=== PATIENT | female | born 1945 | race Caucasian/White ===

== ENCOUNTER 2017-12-03 17:22 | Observation (INO) | payer MEDICARE, SELFPAY ==
[2017-12-03] VITALS (9 sets, daily range): BP systolic 133–148; BP diastolic 78–84; PULSE 68–74; RESP 16–23; TEMP 37; O2SAT 92–98; BMI 34.6
--- NOTE | 2017-12-03 17:41 | ED.RN ---
ATTEMPTED TO CALL DAUGHTER DIANA--[phone]..LEFT MESSAGE AND DAUGHTER PAN---[id number]--TMLF MESSAGE
--- NOTE | 2017-12-03 17:45 | RAD_ITS ---
STUDY: X-RAY CHEST REASON FOR EXAM: Female, 71 years old. Dyspnea and shortness of breath TECHNIQUE: PA and lateral COMPARISON: November 14, 2016 FINDINGS: There is prominence of interstitial markings bilaterally more pronounced the mid and lower lung zones.. There is no demonstrated pleural abnormality. Normal size heart. Normal mediastinum and betty. Normal visualized pulmonary arteries. Mildly calcified aortic arch and descending thoracic aorta. Dorsal spine demonstrates scoliosis and degenerative change Normal visualized ribs, clavicles, and shoulders. There is no demonstrated abnormality of the visualized soft tissue structures of the upper abdomen. RAD/Chest PA and Lateral IMPRESSION: COPD. No acute disease Electronically Signed: Ken Weaver MD at 19:29 EDT , Service support ,
--- NOTE | 2017-12-03 17:45 | EKG12_ITS ---
Test Reason : DYSRHYTHMIA Blood Pressure : / mmHG Vent. Rate : 068 BPM Atrial Rate : 068 BPM P-R Int : 176 ms QRS Dur : 070 ms QT Int : 420 ms P-R-T Axes : 059 059 046 degrees QTc Int : 446 ms Normal sinus rhythm Low voltage QRS Borderline ECG Confirmed by CARLIE BHAT, KATELYN ([id number]), assignment desk editor BANG URBINA ([id number]) on 12/05/2017 3:01:45 PM Referred By: MAYLIN Confirmed By:KATELYN SXETON MD
[2017-12-03 18:04] LABS: Absolute Lymphocyte Count 1.88 X10^3/ul (0.83-4.51); Basophil# 0.02 X10^3/uL; Basophil% 0.3 % (0-1); Eosinophils% 2.6 % (0-5); Hematocrit 38.9 % (37-47); Hemoglobin 11.6 g/dl (12.0-15.0); Lymphocyte # 1.88 X10^3/ul (4.0); Lymphocyte % 24.5 % (19-41); Mean Corp Hgb Conc 29.8 g/gl (32-36); Mean Corpuscular Hgb 27.9 pg (27.0-32.0); Mean Corpuscular Volume 93.5 fL (81-99); Monocyte# 0.56 X10^3/uL; Monocyte% 7.3 % (0-10); Neutrophil # 5.01 X10^3/uL (2.7-7.7); Neutrophil % 65.2 % (47-70); Platelet Count 247 K/mm3 (150-450); RBC Distribution Width CV 13.8 % (11.6-14.6); RBC Distribution Width SD 46.8 fl (35.1-43.9); Red Blood Count 4.16 M/mm3 (4.2-5.4); White Blood Count 7.7 K/mm3 (4.4-11.0)
[2017-12-03 18:07] LABS: POSITIVE COUNT NO; POSITIVE DIFFERENTIAL NO; POSITIVE MORPHOLOGY NO
[2017-12-03 18:12] LABS: International Normalized Ratio 2.8; Prothrombin Time (Protime)PT. 29.3 SECONDS (11.7-14.9)
[2017-12-03] MEDS: Ipratropium/Albuterol Sulfate 3 ML AMPUL.NEB INHALATION ×2 (18:21→22:20)
[2017-12-03 18:24] LABS: Anion Gap 7 (5-15); BUN 12 mg/dL (7-18); BUN/Creat Ratio 16.6 RATIO (10-20); Calcium,Total 9.4 mg/dL (8.5-10.1); Chloride 95 mmol/L (98-107); Creatinine, Serum 0.72 mg/dL (0.55-1.02); EST Glomerular Filtration Rate 84 mL/min (>60); Est Glom Filt Rate - Afr Amer 101 mL/min (>60); Estimated Creatinine Clearance 48.72 ml/min; Glucose 86 mg/dL (74-106); Potassium 3.8 mmol/L (3.5-5.1); Sodium Level 142 mmol/L (136-145)
[2017-12-03 18:33] LABS: BNP,B-Type NATRIURETIC PEPTIDE 173.6 pg/mL (0-100)
[2017-12-03 19:54] LABS: Bacteria 0 SEEN /hpf (None Seen); Mucous, Urine 0 SEEN /hpf (<or=2+)
[2017-12-03 19:55] LABS: Color, Urine Yellow (Yellow); Glucose, Dipstick Normal (Normal); Ketone-Dipstick Negative (Negative); Leukocyte Esterase-Dipstick Negative /ul (Negative); Nitrite-Dipstick Negative (Negative); Occult Blood-Urine Negative /ul (Negative); Protein-Dipstick Negative (Negative); Specific Gravity, Urine 1.015 (1.002-1.030); Urine Bilirubin Dipstick Negative (Negative); Urine Clarity Clear (Clear); Urine Urobilinogen Normal (Normal)
[2017-12-03 20:06] LABS: Squamous Epithelial Cells - UA 0-5 SEEN /hpf (5-10)
[2017-12-03 20:07] LABS: Red Blood Cells-Urine 0-5 SEEN /hpf (0-5)
[2017-12-03 20:08] LABS: Transitional Epithelial - Ur 0-5 SEEN /hpf (0-5); White Blood Cells 0-5 SEEN /hpf (0-5)
--- NOTE | 2017-12-03 22:15 | ED.VISSUMM ---
- ER Visit Summary Date of Service: 12/03/17 Chief Complaint: [Dyspnea] History of Present Illness: The patient is a 71 F presents to the emergency department with shortness of breath it has been worse over last 2 days. Patient complains of exertional dyspnea. Patient's had a mild cough mostly at night. No sputum production. Patient complains of discomfort with deep breathing. Patient describes swollen legs and about an 8 pound weight gain the last week. Patient denies any fever however she has had some chills. Patient also describes some dysuria and urinary frequency. Patient currently on Coumadin and being treated for DVT and PE. Patient has history of hypertension, high cholesterol, COPD.] Physical Examination: [HEENT-PERRLA, EOMI. Cranial nerves II through XII grossly intact. TMs clear. Mucous membranes moist. No adenopathy. Cardiovascular-regular rate and rhythm without murmur or ectopy Lungs-diminished breath sounds bilaterally. Patient has expiratory wheezes bilaterally. Mild tachypnea. No accessory muscle use or retractions. Abdomen-normoactive bowel sounds, soft, nontender, no rebound or rigidity, no peritoneal signs. Extremities-intact ?4, normal range of motion, normal pulses, atraumatic]. Patient has +2 edema both lower extremities. Test Results: [EKG obtained on arrival showed a sinus rhythm with sinus arrhythmia. Ventricular rate was 85 bpm. CBC with differential showed a white count 7.7, hemoglobin 11.6, hematocrit 39, platelets 247. Chemistries unremarkable. INR was 2.8. Urinalysis was normal. Troponin was less than 0.015. BNP was slightly elevated 173. Chest x-ray showed COPD.] Emergency Department Course and Treatment: [Patient received DuoNeb aerosol and was started on Solu-Medrol.] Patient was given Lasix 40 mg IV for the leg edema. Treatment Plan: [Admit] Disposition: [Admit] Impression: [COPD exacerbation Lower extremity edema] This note was generated with QBE dictation software. It may contain incorrect words, spelling, and punctuation that were not noted in review of the chart prior to signing ED Disposition - Plan for ED Patient: Chief Complaint: Asthma Referrals: José Perez MD [Primary Care Provider] -
--- NOTE | 2017-12-03 22:18 | ED.DCSUM_ITS ---
- ER Visit Summary Date of Service: 12/03/17 Chief Complaint: [Dyspnea] History of Present Illness: The patient is a 71 F presents to the emergency department with shortness of breath it has been worse over last 2 days. Patient complains of exertional dyspnea. Patient's had a mild cough mostly at night. No sputum production. Patient complains of discomfort with deep breathing. Patient describes swollen legs and about an 8 pound weight gain the last week. Patient denies any fever however she has had some chills. Patient also describes some dysuria and urinary frequency. Patient currently on Coumadin and being treated for DVT and PE. Patient has history of hypertension , high cholesterol, COPD.] Physical Examination: [HEENT-PERRLA, EOMI. Cranial nerves II through XII grossly intact. TMs clear. Mucous membranes moist. No adenopathy. Cardiovascular-regular rate and rhythm without murmur or ectopy Lungs-diminished breath sounds bilaterally. Patient has expiratory wheezes bilaterally. Mild tachypnea. No accessory muscle use or retractions. Abdomen-normoactive bowel sounds, soft, nontender, no rebound or rigidity, no peritoneal signs. Extremities-intact ?4, normal range of motion, normal pulses, atraumatic]. Patient has +2 edema both lower extremities. Test Results: [EKG obtained on arrival showed a sinus rhythm with sinus arrhythmia. Ventricular rate was 85 bpm. CBC with differential showed a white count 7.7, hemoglobin 11.6, hematocrit 39, platelets 247. Chemistries unremarkable. INR was 2.8. Urinalysis was normal. Troponin was less than 0.015. BNP was slightly elevated 173. Chest x-ray showed COPD.] Emergency Department Course and Treatment: [Patient received DuoNeb aerosol and was started on Solu-Medrol.] Patient was given Lasix 40 mg IV for the leg edema. Treatment Plan: [Admit] Disposition: [Admit] Impression: [COPD exacerbation Lower extremity edema] This note was generated with LemonStand. dictation software. It may contain incorrect words, spelling, and punctuation that were not noted in review of the chart prior to signing ED Disposition - Plan for ED Patient: Chief Complaint: Asthma Referrals: José Perez MD [Primary Care Provider] -
[2017-12-03] MEDS: Furosemide 40 MG/4 ML Vial IV (22:40)
[2017-12-03] MEDS: MethylPREDNISolone 125 MG/2 ML Vial IV (22:40)
--- NOTE | 2017-12-03 23:01 | HP.PCM_ITS ---
Problem List (1) COPD exacerbation Status: Acute (2) COPD (chronic obstructive pulmonary disease) Status: Chronic (3) Dyslipidemia Status: Chronic (4) Essential hypertension Status: Chronic (5) History of DVT (deep vein thrombosis) Status: Chronic (6) History of pulmonary embolus (PE) Status: Chronic History of Present Illness Date of Admission: 12/03/17 Chief Complaint: COPD exacerbation The patient is a 71 year old female w/ h/o lipidemia, PE/DVT and COPD admitted for COPD exacerbation. She has progressive worsening SOB for the past 2 weeks. No increase in cough. She coughs mostly at night. Her cough is nonproductive. No sick contact. Nothing made her SOB better or worse. Her SOB has been persistent and severe, affecting her all the time. She also has increase swelling in the lower extremity. She has not been compliant with her diet. She eats whatever she wants and she lives alone. Past Medical History Past Medical History (Chronic Problems): Chronic Problems History of pulmonary embolus (PE) (Chronic) History of DVT (deep vein thrombosis) (Chronic) Essential hypertension (Chronic) Dyslipidemia (Chronic) COPD (chronic obstructive pulmonary disease) (Chronic) Allergies amlodipine besylate [From Norvas] Allergy (Verified 12/03/17 17:23) Hives codeine Adverse Reaction (Verified 12/03/17 17:23) Other ONE MORE, I CAN'T REMEMBER Allergy (Uncoded 07/19/15 13:37) Other Home Medications: Ambulatory Orders Medication Instructions Recorded Albuterol Sulfate [Proair Hfa] 2 puff IH Q4H PRN PRN 07/19/15 Atenolol [Tenormin (beta donna)] 50 mg PO DAILY 07/19/15 Citalopram [Celexa] 20 mg PO BID 07/19/15 Ergocalciferol [Vitamin D] 50,000 unit PO Q7D 07/19/15 Gabapentin [Neurontin] 300 mg PO BID 07/19/15 Warfarin [Coumadin] 2.5 mg PO TH 07/19/15 Warfarin [Coumadin] 5 mg PO [id number] 07/19/15 Zolpidem Tartrate [Ambien] 10 mg PO QHS PRN 07/19/15 Hydrochlorothiazide [Hctz] 25 mg PO DAILY 12/16/15 Ipratropium/Albuterol Sulfate 3 ml INHALATION 4X/DAY 12/16/15 [Duoneb] Surgical History: noncontributory Psychiatric History: Depression DIABETES SPECIALIST History: No pertinent DIABETES SPECIALIST history Smoking Status: Former smoker - *Family History Maternal History Items: No pertinent history Paternal History Items: No pertinent history Review of Systems Constitutional: Denies: Chills, Fever, Weight Change HEENT: Denies: Head Aches, Sinus Congestion, Sinus Drainage Cardiovascular: Denies: Chest Pain, Palpitations Respiratory: Denies: Cough, Shortness of breath at rest, Sputum production Gastrointestinal: Denies: Abdominal Pain, Nausea, Vomiting Genitourinary: Denies: Dysuria Musculoskeletal: Denies: Joint Pain, Joint Tenderness Skin: Denies: Rash, Wounds Neurological: Denies: Numbness, Tingling, Focal weakness Psychiatric: Denies: Anxiety, Depression, Homicidal Ideations, Suicidal Ideations Hematologic/ Lymphatic: Denies: Easy Bruising, Easy Bleeding VTE Information - Inpt Only VTE Present on Admission: Yes VTE Mechan Device Prophylaxis: SCD's VTE Pharm Prophylaxis ordered?: Yes Patient Problems: Active and Suspected Problems COPD exacerbation (Acute) - Physical Exam General: Alert, Oriented x3, Cooperative HEENT: Atraumatic, PERRLA, EOMI, Normocephalic Neck: Supple, No JVD, Negative Carotid Bruits Lungs: Diminished, Rales, Wheezes Cardiovascular: Regular rate, No murmurs Abdomen: Bowel Sounds Present, Soft, Non Tender Extremities: Capillary Refill Less than 3 Seconds, Edema Skin: No rashes, No breakdown Musculoskeletal: No Tenderness to Palpation of Joints or Extremities Neurological: Cranial nerves II-XII grossly intact Psych/Mental Status: Normal Affect, Appropriate Vital Signs Temp Pulse Resp BP Pulse Ox 98.6 F 74 23 H 145/81 H 96 12/03/17 17:28 12/03/17 22:24 12/03/17 22:24 12/03/17 22:24 12/03/17 22:24 Oxygen Flow Rate (L/min) 3 Oxygen Delivery Method Nasal Cannula Weight: 100.244 kg Body Mass Index (BMI) 34.6 Laboratory Tests Past 24 Hrs 12/03/17 12/03/17 12/03/17 17:55 17:55 17:55 WBC 7.7 RBC 4.16 L Hgb 11.6 L Hct 38.9 MCV 93.5 MCH 27.9 MCHC 29.8 L RDW 13.8 RDW Differential 46.8 H Plt Count 247 MPV 11.0 Immature Gran % (Auto) 0.100 Neut % (Auto) 65.2 Lymph % (Auto) 24.5 [place] % (Auto) 7.3 Eos % (Auto) 2.6 Baso % (Auto) 0.3 Absolute Neuts (auto) 5.0 Absolute Lymphs (auto) 1.88 Total Counted Not Reportable PT INR Sodium 142 Potassium 3.8 Chloride 95 L Carbon Dioxide 40.0 H Anion Gap 7 BUN 12 Creatinine 0.72 Estim Creat Clear Calc 48.72 Est GFR (MDRD) Af Amer 101 Est GFR (MDRD) Non-Af 84 BUN/Creatinine Ratio 16.6 Glucose 86 Calcium 9.4 Troponin I < 0.015 B-Natriuretic Peptide 173.6 H Urine Color Urine Clarity Urine pH Ur Specific [place] Urine Protein Urine Glucose (UA) Urine Ketones Urine Occult Blood Urine Nitrite Urine Bilirubin Urine Urobilinogen Ur Leukocyte Esterase Urine RBC Urine WBC Ur Squamous Epith Cells Ur Transition Epith Cell Urine Bacteria Urine Mucus 12/03/17 12/03/17 17:55 19:50 WBC RBC Hgb Hct MCV MCH MCHC RDW RDW Differential Plt Count MPV Immature Gran % (Auto) Neut % (Auto) Lymph % (Auto) [place] % (Auto) Eos % (Auto) Baso % (Auto) Absolute Neuts (auto) Absolute Lymphs (auto) Total Counted PT 29.3 H INR 2.8 Sodium Potassium Chloride Carbon Dioxide Anion Gap BUN Creatinine Estim Creat Clear Calc Est GFR (MDRD) Af Amer Est GFR (MDRD) Non-Af BUN/Creatinine Ratio Glucose Calcium Troponin I B-Natriuretic Peptide Urine Color Yellow Urine Clarity Clear Urine pH 8.0 Ur Specific [place] 1.015 Urine Protein Negative Urine Glucose (UA) Normal Urine Ketones Negative Urine Occult Blood Negative Urine Nitrite Negative Urine Bilirubin Negative Urine Urobilinogen Normal Ur Leukocyte Esterase Negative Urine RBC 0-5 SEEN Urine WBC 0-5 SEEN Ur Squamous Epith Cells 0-5 SEEN Ur Transition Epith Cell 0-5 SEEN Urine Bacteria 0 SEEN Urine Mucus 0 SEEN Assessment/Plan Active and Suspected Problems COPD exacerbation (Acute) 71 year old female w/ h/o lipidemia, PE/DVT and COPD admitted for COPD exacerbation. 1) COPD exacerbation: Probably secondary to viral / noncompliant. Will get cultures. Will start steroid, bronchodilators, and azithromycin. Supportive care. 2) Bilateral lower extremity swelling: Will start lasix. Supportive care. 3) H/o PE/DVT: Will restart coumadin. Daily INR. 4) Chronic issues: Lipidemia / HTN: Resume home meds.
[2017-12-04] VITALS (14 sets, daily range): BP systolic 110–156; BP diastolic 53–84; PULSE 70–80; RESP 16–24; TEMP 36.7–36.8; O2SAT 88–97; BMI 33.3
[2017-12-04] MEDS: Albuterol 2.5 MG/3 ML VIAL.NEB. INHALATION (01:45)
[2017-12-04] MEDS: Zolpidem Tartrate 5 MG Tablet PO ×2 (01:51→22:31)
[2017-12-04] MEDS: Citalopram 40 MG TABLET PO (01:52)
--- NOTE | 2017-12-04 01:52 | CPS ---
pt stated she is too wheezy and didn't want to start pep. She stated she understands how to do it.
[2017-12-04] MEDS: 0.9% NaCl Peripheral Flush Adult/Peds IV ×4 (03:18→14:36)
[2017-12-04 06:13] LABS: International Normalized Ratio 2.6; Prothrombin Time (Protime)PT. 28.2 SECONDS (11.7-14.9)
[2017-12-04 06:17] LABS: Absolute Lymphocyte Count 0.67 X10^3/ul (0.83-4.51); Absolute Neutrophil Count 6.7 X10^3/uL (2.0-7.7); Basophil# 0.01 X10^3/uL; Basophil% 0.1 % (0-1); Eosinophil# 0.01 X10^3/uL; Eosinophils% 0.1 % (0-5); Hematocrit 37.9 % (37-47); Hemoglobin 11.8 g/dl (12.0-15.0); Lymphocyte # 0.67 X10^3/ul (4.0); Mean Corp Hgb Conc 31.1 g/gl (32-36); Mean Corpuscular Hgb 28.9 pg (27.0-32.0); Mean Corpuscular Volume 92.9 fL (81-99); Mean Platelet Vol. 12.2 fl (6.2-12.0); Monocyte# 0.03 X10^3/uL; Monocyte% 0.4 % (0-10); Neutrophil # 6.68 X10^3/uL (2.7-7.7); Neutrophil % 90.3 % (47-70); Platelet Count 240 K/mm3 (150-450); RBC Distribution Width CV 13.4 % (11.6-14.6); RBC Distribution Width SD 44.6 fl (35.1-43.9); Red Blood Count 4.08 M/mm3 (4.2-5.4); White Blood Count 7.4 K/mm3 (4.4-11.0)
[2017-12-04 06:23] LABS: ALB/GLOB Ratio 0.7 RATIO (0.9-2.4); AST(SGOT) 17 U/L (15-37); Alanine Aminotransfer ALT/SGPT 19 U/L (13-56); Albumin, Serum 3.2 g/dL (3.2-5.0); Alkaline Phosphatase 100 U/L (45-117); Anion Gap 8 (5-15); BUN 12 mg/dL (7-18); BUN/Creat Ratio 14.4 RATIO (10-20); Chloride 93 mmol/L (98-107); Creatinine, Serum 0.83 mg/dL (0.55-1.02); EST Glomerular Filtration Rate 71 mL/min (>60); Est Glom Filt Rate - Afr Amer 86 mL/min (>60); Globulin 4.3 g/dL (2.2-4.2); Glucose 187 mg/dL (74-106); Potassium 3.1 mmol/L (3.5-5.1); Protein, Total 7.5 g/dL (6.4-8.2); Sodium Level 139 mmol/L (136-145)
[2017-12-04 06:57] LABS: POSITIVE COUNT NO; POSITIVE DIFFERENTIAL NO; POSITIVE MORPHOLOGY NO
--- NOTE | 2017-12-04 07:00 | PCM.PROGNOTE ---
Patient Problems: Active and Suspected Problems COPD exacerbation (Acute) Subjective: The patient is a 71-year-old female with a past medical history of COPD, hyperlipidemia, hypertension, VTE with DVT and PE on chronic anticoagulation and obesity who presented to the emergency department at [facility] on 12/03/2017 complaining of worsening shortness of breath over the preceding 2 weeks and swelling in the legs. She was afebrile at presentation to the hospital. Pulse ox was 92-98% on room air. White blood cell count was normal at 7.7 with an unremarkable differential. Hemoglobin is mildly decreased at 11.6 with normal platelets. INR was therapeutic at 2.8. Electrolytes were remarkable for an elevated serum bicarb of 40. Troponin was less than 0.015. Radiologist reported the chest x-ray as no acute processes however per my review there is suspicion for a right lower lobe infiltrate. Influenza swab was negative. She was admitted to the hospital with a diagnosis of acute COPD exacerbation and started on intravenous steroids, aerosolized bronchodilators and azithromycin. She was given Lasix for bilateral lower extremity edema. Afebrile since admission. Vital signs stable. She is 88% ambulating on a 2 L nasal cannula and 94% on a 2 L nasal cannula at rest. She tells me she wears oxygen at home 06/02 at 2 L/min. White blood cell count is once again normal at 7.4 but there is a left shift secondary to steroids. Hemoglobin is stable and platelets are within normal limits. An ABG done on a liter nasal cannula showed a pH of 7.52, PCO2 of 48 and a PO2 of 65. Serum bicarb today is 38 and the potassium is low at 3.1. BNP was only 173.6 at admission. She and her son seem very concerned about the LE edema. She has been taking HCTZ at home. she denies CP. No fevers or shaking chills. Objective: General: Alert, oriented ?3, cooperative, pleasant and appropriate, NAD, sitting at the EOB with her legs dependent and talking with her son. No compression stockings Neck: Supple, trachea midline, no enlarged cervical nodes, no enlarged supraclavicular nodes Lungs: Clear to auscultation, markedly diminished, symmetric chest expansion, not tachypneic, no conversational dyspnea, no accessory muscle use, no wheezing Heart: Regular rate and rhythm, normal S1, normal S2, no murmur, no gallop, no rub Abdomen: Soft, NT, ND, bowel sounds present Extremities: No clubbing, edema of the ankles and the distal LE to just above the ankle, no cyanosis She does not appear to be having a acute exacerbation to me. I think that her main concern is the swelling in the legs. - Physical Exam General: - Vital Signs Temp Pulse Resp BP Pulse Ox 98.2 F 75 18 156/84 H 97 12/04/17 01:02 12/04/17 01:45 12/04/17 01:45 12/04/17 01:02 12/04/17 01:53 Oxygen Flow Rate (L/min) 2 Oxygen Delivery Method Nasal Cannula Weight: 212 lb 8 oz Body Mass Index (BMI) 33.3 Intake and Output for Last 24 Hours 12/02/17 12/03/17 12/04/17 23:59 23:59 23:59 Intake Total 595 / 595 Balance 595 / 595 Microbiology Past 72 Hours 12/04/17 02:45 Influenza Types A,B Direct FA (ROMI) - Final Mucosa - Nose Laboratory Tests Past 24 Hrs 12/04/17 12/04/17 12/04/17 05:20 05:20 05:20 WBC 7.4 RBC 4.08 L Hgb 11.8 L Hct 37.9 MCV 92.9 MCH 28.9 MCHC 31.1 L RDW 13.4 RDW Differential 44.6 H Plt Count 240 MPV 12.2 H Immature Gran % (Auto) 0.100 Neut % (Auto) 90.3 H Lymph % (Auto) 9.0 L Jay % (Auto) 0.4 Eos % (Auto) 0.1 Baso % (Auto) 0.1 Absolute Neuts (auto) 6.7 Absolute Lymphs (auto) 0.67 L Total Counted Not Reportable PT 28.2 H INR 2.6 Sodium 139 Potassium 3.1 L Chloride 93 L Carbon Dioxide 38.0 H Anion Gap 8 BUN 12 Creatinine 0.83 Estim Creat Clear Calc 58.70 Est GFR (MDRD) Af Amer 86 Est GFR (MDRD) Non-Af 71 BUN/Creatinine Ratio 14.4 Glucose 187 H Calcium 9.0 Total Bilirubin 0.80 AST 17 ALT 19 Alkaline Phosphatase 100 Total Protein 7.5 Albumin 3.2 Globulin 4.3 H Albumin/Globulin Ratio 0.7 L Medical Necessity - Tobacco Use Smoking Status: Former smoker Assessment/Plan Active and Suspected Problems COPD exacerbation (Acute) Impressions 1. acute exacerbation COPD - I do not agree with this. She appear in no distress, is not tachypneic, has a good saturation on her baseline home o2. She seems to be most concerned about the edema in the legs. I explained she most likely has pulmonary HTN due to hx of PE's and also she likely has significant venous insufficiency of the LE's due to prior DVT's and to vein stripping in the past. I explained that generally diuretics do not control this type of edema and the main method of control is compression stockings and elevation. 2. COPD 3. 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 chronic respiratory failure with hypoxemia and suspected hypercarbia.......vs metabolic alkalosis due to IV volume depletion from HCTZ. 5. Hyperlipidemia 6. Hypertension 7. Hypokalemia will get a total of 3 doses of Lasix. Recheck the lab in the AM Obtain office records from Dr. Perez and Dr. Chavarria Echocardiogram to evaluate systolic function and also pulmonary artery pressures. Ambulatory pulse ox prior to discharge to determine oxygen requirement DC IV steroids as they will only contribute to the swelling due to slat and water retention...start Prednisone short course in the AM Knee high TEDS Code Visit OBSV E&M: 36877 Subsequent observation care L2
[2017-12-04] MEDS: Gabapentin 300 MG Capsule PO ×2 (09:44→17:28)
[2017-12-04] MEDS: Furosemide 20 MG/2 ML VIAL IV (09:44)
[2017-12-04] MEDS: hydroCHLOROthiazide 25 MG Tablet PO (09:44)
[2017-12-04] MEDS: Atenolol 50 MG Tablet PO (09:44)
[2017-12-04] MEDS: Ipratropium/Albuterol Sulfate 3 ML AMPUL.NEB INHALATION ×3 (11:17→20:50)
[2017-12-04] MEDS: Citalopram 20 MG Tablet PO ×2 (11:29→20:58)
--- NOTE | 2017-12-04 11:40 | CASEMGMT ---
See MAGO DANIEL Assessment Link. DC PLAN: home on discharge. -pt plans to return home. MAGO DANIEL offered to have HHS on dc. Pt was noncomittal. Pt wished to discuss possible need for Assisted Living vs services through [facility]. MAGO DANIEL offered to have SW speak with pt. Elizabeth SAMAYOA will speak with pt. Yessica STOUT RN ACM
--- NOTE | 2017-12-04 11:55 | CASEMGMT ---
SW received referral for pt as pt seems to want more care at home, contemplating assisted living. SW spoke w/pt in room, she is thinking about AL. She states she spoke w/her daughters about it and they did not give her the answer she wanted. SW inquired what the answer was she was looking for. She states she wanted one of her two daughters to tell her that pt could move in w/them, but this did not happen. She states her one daughter's comes before everyone else. SW offered support. SW asked pt about hiring extra help, and about Passport. Pt does not think she will qualify for Passport, her income is too high. Pt is not interested in a private hire list for extra help at home at this time. Pt states does have a cleaning lady. SW gave pt a list of AL's in the area, encouraged her to call and go see places, to see what she might like. Pt does have some savings in the bank and seems to think that she will be able to cover the cost. Pt's son then came in, just as SW was asking pt about POA. Pt states she does have a POA, has filled out the forms. No further social service needs, pt will go home at discharge, possibly w/home health, and pt to follow up w/assisted living facilities once home. TRINI Gomez, SHEAR SCRAPMAN
[2017-12-04 13:26] LABS: Allen Test POS; Base Excess 16 mmol/L (-2 to +2); Bicarbonate 38.9 mmol/L (22-26); Blood Gas Specimen Type ART; O2 Delivery Device Nasal Can; PO2 65 mmHG (75-100); SITE R Radial; SO2 94 % (95-99); Time Given 1320; Total Carbon Dioxide 40 mmol/L; pCO2 48.1 mmHg (35-45); pH 7.52 (7.35-7.45)
--- NOTE | 2017-12-04 14:44 | CHAPLAIN ---
Type of Pastoral Visit _x__ Initial Visit ___ Follow-up Visit ___ On-call Visit ___ General Patient Visit ___ Spiritual Assessment ___ Family Conference ___ Bereavement ___ Rapid Response ___ Code Blue ___ Other (describe below) Pastoral Care Referral From _x__ Patient ___ Family ___ Nurse ___ Physician ___ Postal Supervisor ___ Slasher Operator ___ Other (describe below) Sacrament/Intervention _x__ Active listening ___ Anointing ___ Evangelical ___ Bereavement ___ Communion ___ Teresa exploration ___ _x__ Life review _x__ Prayer ___ Reconciliation ___ Sacrament of Sick _x__ Supportive presence ___ Wedding ___ Other (describe below) Pastoral Comments patient has concerns about her future care; pt speaks of having little hope that her daughters will take care of her since they are not showing involvement and much interest in her now
--- NOTE | 2017-12-04 15:09 | NURSING ---
pt requesting to ambulate with O2 to see what her spo2 is. While ambulating spo2 at lowest point was 88% with 2L oxgyen.
[2017-12-04] MEDS: Acetaminophen 325 MG Tablet 650 MG PO (17:28)
[2017-12-04] MEDS: Furosemide 40 MG/4 ML Vial IV (18:43)
--- NOTE | 2017-12-04 19:36 | ECHOD_ITS ---
Reason For Study: PHTN Procedure This was a 2D Doppler, Color Flow transthoracic echocardiogram. The exam was of poor technical quality due to underlying pulmonary disease process & body habitus. The study was technically difficult. Exam performed portable in patient room. Left Ventricle Normal LV size. Left ventricular systolic function is normal. The estimated ejection fraction is 65 %. No regional wall motion abnormalities noted. Right Ventricle Normal RV size. Normal systolic function. Atria Normal left atrium. Normal right atrium. No doppler evidence for ASD. Mitral Valve There is moderate mitral annular calcification. Extension of the mitral annular calcification onto the posterior mitral valve leaflet. Trivial mitral valve insufficiency. Tricuspid Valve Normal tricuspid valve. Trivial tricuspid valve insufficiency. Right ventricular systolic pressure estimated to be 51 mmHg. Aortic Valve Trisinus/trileaflet aortic valve. Mild focal aortic valve thickening. Pulmonic Valve The pulmonic valve is not well visualized. Great Vessels The aortic root is not well visualized. Pericardium/Pleural No pericardial effusion. MMode/2D Measurements & Calculations LVIDd: 4.1 cm IVSd: 1.2 cm LAV(MOD-bp): 55.5 ml LVIDs: 2.2 cm LVPWd: 1.1 cm LAV(MOD-bp) Indexed: 26.8 ml/m2 RVDd: 3.9 cm FS: 47.3 % LAV(MOD-sp2): 59.9 ml LAV(MOD-sp4): 45.0 ml LVAd ap4: 25.8 cm2 SV(MOD-sp4): 44.7 ml SV(sp4-el): 44.9 ml EDV(MOD-sp4): 74.9 ml EDV(sp4-el): 74.2 ml LVAs ap4: 15.0 cm2 ESV(MOD-sp4): 30.1 ml ESV(sp4-el): 29.3 ml EF(MOD-sp4): 59.8 % EF(sp4-el): 60.5 % LA A4 area: 17.1 cm2 Time Measurements MV dec time: 0.24 sec Doppler Measurements & Calculations MV E max nik: 111.1 cm/sec Lat Peak E' Nik: 10.1 cm/sec Med Peak E' Nik: 14.5 cm/sec MV A max nik: 76.5 cm/sec E/E' lat: 11.0 E/E' med: 7.7 MV E/A: 1.5 MV V2 max: 157.9 cm/sec MV P1/2t max nik: 157.0 cm/sec Ao V2 max: 143.0 cm/sec MV max P.0 mmHg MV P1/2t: 59.3 msec Ao max P.2 mmHg MV V2 mean: 71.0 cm/sec MV dec slope: 774.7 cm/sec2 Ao V2 mean: 88.3 cm/sec MV mean P.6 mmHg MVA(P1/2t): 3.7 cm2 Ao mean P.6 mmHg MV V2 VTI: 34.3 cm Ao V2 VTI: 26.4 cm LV V1 max: 123.9 cm/sec PA V2 max: 94.4 cm/sec TR max nik: 326.9 cm/sec LV V1 max P.1 mmHg TR max P.8 mmHg LV V1 mean P.2 mmHg LV V1 mean: 83.7 cm/sec LV V1 VTI: 27.0 cm Interpretation Summary The study was technically difficult. Left ventricular systolic function is normal. The estimated ejection fraction is 65 %. There is moderate mitral annular calcification. Extension of the mitral annular calcification onto the posterior mitral valve leaflet. Trivial mitral valve insufficiency. Trivial tricuspid valve insufficiency. Mild focal aortic valve thickening. Right ventricular systolic pressure estimated to be 51 mmHg. Transmitral diastolic flow velocities suggest diastolic dysfunction (pseudonormal pattern). Ordering Physician: Elizabeth Junior Performed By: Callum Bailon RCS
[2017-12-05] VITALS (7 sets, daily range): BP systolic 113–133; BP diastolic 64–74; PULSE 55–84; RESP 16–18; TEMP 36.6–36.7; O2SAT 91–95
[2017-12-05] MEDS: Ipratropium/Albuterol Sulfate 3 ML AMPUL.NEB INHALATION ×4 (05:16→14:40)
[2017-12-05] MEDS: 0.9% NaCl Peripheral Flush Adult/Peds IV ×2 (06:20→10:35)
[2017-12-05 06:34] LABS: International Normalized Ratio 2.9; Prothrombin Time (Protime)PT. 30.4 SECONDS (11.7-14.9)
[2017-12-05 07:00] LABS: Anion Gap 7 (5-15); BUN 25 mg/dL (7-18); BUN/Creat Ratio 35.1 RATIO (10-20); Chloride 94 mmol/L (98-107); Cholesterol 234 mg/dL (200); Creatinine, Serum 0.71 mg/dL (0.55-1.02); EST Glomerular Filtration Rate 85 mL/min (>60); Est Glom Filt Rate - Afr Amer 103 mL/min (>60); Estimated Creatinine Clearance 48.72 ml/min; Glucose 116 mg/dL (74-106); High Density Lipoprotein 53 mg/dL; Magnesium 2.3 mg/dL (1.6-2.6); Phosphorus 3.4 mg/dL (2.5-4.9); Potassium 3.5 mmol/L (3.5-5.1); Sodium Level 141 mmol/L (136-145); Triglycerides 78 mg/dL; Very Low Density Lipoprotein 16 mg/dL (5-40)
[2017-12-05] MEDS: predniSONE 20 MG Tablet 40 MG PO (10:28)
[2017-12-05] MEDS: Citalopram 20 MG Tablet PO (10:28)
[2017-12-05] MEDS: Gabapentin 300 MG Capsule PO (10:28)
[2017-12-05] MEDS: Atenolol 50 MG Tablet PO (10:28)
[2017-12-05] MEDS: Furosemide 40 MG/4 ML Vial IV (10:29)
[2017-12-05] MEDS: Acetaminophen 325 MG Tablet 650 MG PO (10:34)
--- NOTE | 2017-12-05 15:47 | PCM.DC ---
- Discharge Diagnoses Current Active Problems: Current Active and Chronic Problems COPD exacerbation (Acute) You will use the following diet at home:: Other - low salt and low Fat Your food should be the consistency of: Regular Your liquids should be the consistency of: Regular/Thin Discharge Activity: - - Avoid exposure to any strong smells such as bleach, cleaning products, strong colognes or perfumes, paint fumes and smoke of any kind. Avoid sudden exposure to cold air because this can cause bronchospasm. You may want to cover your mouth when you go outside in the winter. Avoid exposure to anyone who is sick with a cough or sore throat. Call your doctor if you observe: Fever of 101 or Higher, Inability to urinate, Shortness of breath, Dizziness, Fainting spells, Chest pain Instructions: Pulmonary Hypertension Additional Instructions: 1. The shortness of breath you had was actually related to being dehydrated. Your brain/body was suppressing your breathing and causing the oxygen to decrease and the carbon dioxide to increase in the blood. Increased carbon dioxide can cause confusion and also headaches. I have discontinue the HCTZ(diuretic). 2. The swelling in the legs is NOT due to heart failure. You have high BP in your lungs....this is called pulmonary hypertension. Pulmonary hypertension will cause leg swelling and diuretics will not fix the swelling unless you are very dehydrated. The BEST way to control the swelling in the legs is to use compression. The compression stockings should be applied the minute you swing your legs out of bed in the morning......if you get up and walk around for even a little bit they will swell and you will not be able to get the stockings on. 3. I am sending you home with a steroid taper over the next 10 days. No infection so you do not need and antibiotic Allergies/Adverse Reactions: Allergies amlodipine besylate [From [facility]] Allergy (Verified 12/03/17 17:23) Hives codeine Adverse Reaction (Verified 12/03/17 17:23) Other ONE MORE, I CAN'T REMEMBER Allergy (Uncoded 07/19/15 13:37) Other Medications to take at Discharge Albuterol Sulfate [Proair Hfa] 2 puff IH Q4H PRN PRN 07/19/15 Atenolol [Tenormin (beta donna)] 50 mg PO DAILY 07/19/15 Citalopram [Celexa] 20 mg PO BID 07/19/15 Ergocalciferol [Vitamin D] 50,000 unit PO Q7D 07/19/15 Gabapentin [Neurontin] 300 mg PO BID 07/19/15 Warfarin [Coumadin] 2.5 mg PO TH 07/19/15 Warfarin [Coumadin] 5 mg PO SUMOTUWEFRSA 07/19/15 Zolpidem Tartrate [Ambien] 10 mg PO QHS PRN 07/19/15 Ipratropium/Albuterol Sulfate [Duoneb] 3 ml INHALATION 4X/DAY 12/16/15 Prednisone 10 mg PO UD #30 tab 12/05/17 The following prescriptions were given: Prednisone 10 mg PO UD #30 tab Primary Care Physician: José Perez MD [Primary Care Provider] - Please follow up with your Primary Care Physician in: 10-14 days Proposed Discharge Date: 12/05/17
--- NOTE | 2017-12-09 07:32 | PCM.DC.SUM ---
Discharge Date and Diagnosis Date of Admission: 12/03/17 Date of Discharge: 12/05/17 - Primary Discharge Diagnosis Peripheral edema due to venous insufficiency Acute exacerbation COPD - ruled out Metabolic alkalosis due to IV volume depletion Hypokalemia-resolved with supplementation - Secondary Discharge Diagnosis Chronic Problems Venous insufficiency (Chronic) Pulmonary HTN (Chronic) History of pulmonary embolus (PE) (Chronic) History of DVT (deep vein thrombosis) (Chronic) Essential hypertension (Chronic) Dyslipidemia (Chronic) COPD (chronic obstructive pulmonary disease) (Chronic) Chronic anticoagulation with warfarin Hospital Course and Treatment Imaging Results: Clinical Impression(s) from Imaging Studies Chest X-Ray 12/03/17 17:45 IMPRESSION: COPD. No acute disease Electronically Signed: Ken Weaver MD at 19:29 EDT , Service support , Laboratory Tests 12/03/17 12/03/17 12/03/17 17:55 17:55 17:55 WBC 7.7 RBC 4.16 L Hgb 11.6 L Hct 38.9 MCV 93.5 MCH 27.9 MCHC 29.8 L RDW 13.8 RDW Differential 46.8 H Plt Count 247 MPV 11.0 Immature Gran % (Auto) 0.100 Neut % (Auto) 65.2 Lymph % (Auto) 24.5 Patrick % (Auto) 7.3 Eos % (Auto) 2.6 Baso % (Auto) 0.3 Absolute Neuts (auto) 5.0 Absolute Lymphs (auto) 1.88 Total Counted Not Reportable PT INR Specimen Type Sample Site pH Bicarbonate Actual POC Total CO2 Base Excess O2 Saturation ABG pCO2 ABG pO2 Mj Test O2 Delivery Device Liter Flow Blood Gas Notified Whom Blood Gas Notified Time Sodium 142 Potassium 3.8 Chloride 95 L Carbon Dioxide 40.0 H Anion Gap 7 BUN 12 Creatinine 0.72 Estim Creat Clear Calc 48.72 Est GFR (MDRD) Af Amer 101 Est GFR (MDRD) Non-Af 84 BUN/Creatinine Ratio 16.6 Glucose 86 Calcium 9.4 Phosphorus Magnesium Total Bilirubin AST ALT Alkaline Phosphatase Troponin I < 0.015 B-Natriuretic Peptide 173.6 H Total Protein Albumin Globulin Albumin/Globulin Ratio Triglycerides Cholesterol LDL Cholesterol VLDL Cholesterol HDL Cholesterol Urine Color Urine Clarity Urine pH Ur Specific [place] Urine Protein Urine Glucose (UA) Urine Ketones Urine Occult Blood Urine Nitrite Urine Bilirubin Urine Urobilinogen Ur Leukocyte Esterase Urine RBC Urine WBC Ur Squamous Epith Cells Ur Transition Epith Cell Urine Bacteria Urine Mucus 12/03/17 12/03/17 12/04/17 17:55 19:50 05:20 WBC 7.4 RBC 4.08 L Hgb 11.8 L Hct 37.9 MCV 92.9 MCH 28.9 MCHC 31.1 L RDW 13.4 RDW Differential 44.6 H Plt Count 240 MPV 12.2 H Immature Gran % (Auto) 0.100 Neut % (Auto) 90.3 H Lymph % (Auto) 9.0 L Patrick % (Auto) 0.4 Eos % (Auto) 0.1 Baso % (Auto) 0.1 Absolute Neuts (auto) 6.7 Absolute Lymphs (auto) 0.67 L Total Counted Not Reportable PT 29.3 H INR 2.8 Specimen Type Sample Site pH Bicarbonate Actual POC Total CO2 Base Excess O2 Saturation ABG pCO2 ABG pO2 Mj Test O2 Delivery Device Liter Flow Blood Gas Notified Whom Blood Gas Notified Time Sodium Potassium Chloride Carbon Dioxide Anion Gap BUN Creatinine Estim Creat Clear Calc Est GFR (MDRD) Af Amer Est GFR (MDRD) Non-Af BUN/Creatinine Ratio Glucose Calcium Phosphorus Magnesium Total Bilirubin AST ALT Alkaline Phosphatase Troponin I B-Natriuretic Peptide Total Protein Albumin Globulin Albumin/Globulin Ratio Triglycerides Cholesterol LDL Cholesterol VLDL Cholesterol HDL Cholesterol Urine Color Yellow Urine Clarity Clear Urine pH 8.0 Ur Specific [place] 1.015 Urine Protein Negative Urine Glucose (UA) Normal Urine Ketones Negative Urine Occult Blood Negative Urine Nitrite Negative Urine Bilirubin Negative Urine Urobilinogen Normal Ur Leukocyte Esterase Negative Urine RBC 0-5 SEEN Urine WBC 0-5 SEEN Ur Squamous Epith Cells 0-5 SEEN Ur Transition Epith Cell 0-5 SEEN Urine Bacteria 0 SEEN Urine Mucus 0 SEEN 12/04/17 12/04/17 12/04/17 05:20 05:20 13:21 WBC RBC Hgb Hct MCV MCH MCHC RDW RDW Differential Plt Count MPV Immature Gran % (Auto) Neut % (Auto) Lymph % (Auto) Patrick % (Auto) Eos % (Auto) Baso % (Auto) Absolute Neuts (auto) Absolute Lymphs (auto) Total Counted PT 28.2 H INR 2.6 Specimen Type ART Sample Site R Radial pH 7.52 H Bicarbonate Actual 38.9 H POC Total CO2 40 Base Excess 16 H O2 Saturation 94 L ABG pCO2 48.1 H ABG pO2 65 L Mj Test POS O2 Delivery Device Nasal Can Liter Flow 2.0 Blood Gas Notified Whom [facility] Blood Gas Notified Time 1320 Sodium 139 Potassium 3.1 L Chloride 93 L Carbon Dioxide 38.0 H Anion Gap 8 BUN 12 Creatinine 0.83 Estim Creat Clear Calc 58.70 Est GFR (MDRD) Af Amer 86 Est GFR (MDRD) Non-Af 71 BUN/Creatinine Ratio 14.4 Glucose 187 H Calcium 9.0 Phosphorus Magnesium Total Bilirubin 0.80 AST 17 ALT 19 Alkaline Phosphatase 100 Troponin I B-Natriuretic Peptide Total Protein 7.5 Albumin 3.2 Globulin 4.3 H Albumin/Globulin Ratio 0.7 L Triglycerides Cholesterol LDL Cholesterol VLDL Cholesterol HDL Cholesterol Urine Color Urine Clarity Urine pH Ur Specific [place] Urine Protein Urine Glucose (UA) Urine Ketones Urine Occult Blood Urine Nitrite Urine Bilirubin Urine Urobilinogen Ur Leukocyte Esterase Urine RBC Urine WBC Ur Squamous Epith Cells Ur Transition Epith Cell Urine Bacteria Urine Mucus 12/05/17 12/05/17 06:10 06:10 WBC RBC Hgb Hct MCV MCH MCHC RDW RDW Differential Plt Count MPV Immature Gran % (Auto) Neut % (Auto) Lymph % (Auto) Patrick % (Auto) Eos % (Auto) Baso % (Auto) Absolute Neuts (auto) Absolute Lymphs (auto) Total Counted PT 30.4 H INR 2.9 Specimen Type Sample Site pH Bicarbonate Actual POC Total CO2 Base Excess O2 Saturation ABG pCO2 ABG pO2 Mj Test O2 Delivery Device Liter Flow Blood Gas Notified Whom Blood Gas Notified Time Sodium 141 Potassium 3.5 Chloride 94 L Carbon Dioxide 40.0 H Anion Gap 7 BUN 25 H Creatinine 0.71 Estim Creat Clear Calc 48.72 Est GFR (MDRD) Af Amer 103 Est GFR (MDRD) Non-Af 85 BUN/Creatinine Ratio 35.1 H Glucose 116 H Calcium 9.0 Phosphorus 3.4 Magnesium 2.3 Total Bilirubin AST ALT Alkaline Phosphatase Troponin I B-Natriuretic Peptide Total Protein Albumin Globulin Albumin/Globulin Ratio Triglycerides 78 Cholesterol 234 H LDL Cholesterol 165 H VLDL Cholesterol 16 HDL Cholesterol 53 Urine Color Urine Clarity Urine pH Ur Specific [place] Urine Protein Urine Glucose (UA) Urine Ketones Urine Occult Blood Urine Nitrite Urine Bilirubin Urine Urobilinogen Ur Leukocyte Esterase Urine RBC Urine WBC Ur Squamous Epith Cells Ur Transition Epith Cell Urine Bacteria Urine Mucus none Operations: None Procedures: 2-D Echocardiogram - EF of 65% with no wall motion abnormalities. Trivial mitral valve insufficiency and tricuspid valve insufficiency. Focal aortic valve thickening with no aortic stenosis. Right ventricular systolic pressure estimated at 51 mmHg. Summary of Care Provided: The patient is a 71-year-old female with a past medical history of COPD, hyperlipidemia, hypertension, VTE with DVT and PE on chronic anticoagulation and obesity who presented to the emergency department at [facility] on 12/03/2017 complaining of worsening shortness of breath over the preceding 2 weeks and swelling in the legs. She was afebrile at presentation to the hospital. Pulse ox was 92-98% on room air. White blood cell count was normal at 7.7 with an unremarkable differential. Hemoglobin is mildly decreased at 11.6 with normal platelets. INR was therapeutic at 2.8. Electrolytes were remarkable for an elevated serum bicarb of 40. Troponin was less than 0.015. Radiologist reported the chest x-ray as no acute processes however per my review there is suspicion for a right lower lobe infiltrate. Influenza swab was negative. She was admitted to the hospital with a diagnosis of acute COPD exacerbation and started on intravenous steroids, aerosolized bronchodilators and azithromycin. She was given Lasix for bilateral lower extremity edema. An ABG was obtained and showed a pH of 7.52, PCO2 of 48 and a PO2 of 65 on a 2 L nasal cannula. This is consistent with primary metabolic alkalosis secondary to intravascular volume depletion with compensatory respiratory acidosis. An echocardiogram was obtained that showed a normal left ventricular ejection fraction with no wall motion abnormalities and no significant valvular heart disease. The PA pressure was estimated at 51. Acute exacerbation of COPD was ruled out. She was in no distress, was on her baseline O2 settings, was not tachypneic, and had no conversational dyspnea. He primary complaint was the swelling in the legs which is due to pulmonary HTN, venous insufficiency and prior VTE. I explained to her that this kind of edema will not be eradicated with diuretics unless she is IV volume depleted/dehydrated. The metabolic alkalosis due to volume depletion will actually make the breathing worse because it leads to respiratory acidosis/hypoventilation to balance the PH. It is best controlled with compressions, salt restriction and elevation of the legs. On the date of discharge the lungs were clear to auscultation but diminished. She had no conversational dyspnea and was not tachypneic. He was 94% on a 2 L nasal cannula. He was 88% with ambulation on a 2 L nasal cannula and she was instructed that she may increase her oxygen to 3 L/min when she is active. He was discharged on 12/05/2017 given a prescription for prednisone to taper over the following 10 days. She will resume her other home medications. She was given GERTA hose as directed to put them on the minute she swings her legs out of bed in the morning and not to take them off until her legs are elevated or she is going to bed. This note was generated with [employer] dictation software. It may contain incorrect words, spelling, and punctuation that were not noted in checking the note before signing. Discharge Activity: - - Avoid exposure to any strong smells such as bleach, cleaning products, strong colognes or perfumes, paint fumes and smoke of any kind. Avoid sudden exposure to cold air because this can cause bronchospasm. You may want to cover your mouth when you go outside in the winter. Avoid exposure to anyone who is sick with a cough or sore throat. Call your doctor if you observe: Fever of 101 or Higher, Inability to urinate, Shortness of breath, Dizziness, Fainting spells, Chest pain Home Medications: Medications to take at Discharge Albuterol Sulfate [Proair Hfa] 2 puff IH Q4H PRN PRN 07/19/15 Atenolol [Tenormin (beta donna)] 50 mg PO DAILY 07/19/15 Citalopram [Celexa] 20 mg PO BID 07/19/15 Ergocalciferol [Vitamin D] 50,000 unit PO Q7D 07/19/15 Gabapentin [Neurontin] 300 mg PO BID 07/19/15 Warfarin [Coumadin] 2.5 mg PO TH 07/19/15 Warfarin [Coumadin] 5 mg PO SUMOTUWEFRSA 07/19/15 Zolpidem Tartrate [Ambien] 10 mg PO QHS PRN 07/19/15 Ipratropium/Albuterol Sulfate [Duoneb] 3 ml INHALATION 4X/DAY 12/16/15 Prednisone 10 mg PO UD #30 tab 12/05/17 Following Prescrptions Were Given to Patient: Prednisone 10 mg PO UD #30 tab Primary Care Physician: José Perez MD [Primary Care Provider] - Please follow up with your Primary Care Physician in: 10-14 days Patient Instructions: Pulmonary Hypertension Minutes spent on discharge:: 30 Patient Condition:: Good Medical Necessity - Tobacco Use Smoking Status: Former smoker Meaningful Use Info Meaningful Use Diagnoses (Choose all that apply): None applicable Code Visit OBSV E&M: 93146 Observation care discharge
== END 2017-12-05 17:00 | disposition home or self-care (01) ==
LOC: ED 22:32 → MS3 12-04 00:23
PROVIDERS: Admitting Provider Internal Medicine; Emergency Provider Emergency Medicine; Family Provider Family Medicine; PCP Family Medicine; Visit Provider Internal Medicine
DX: E86.0 Dehydration (principal); R60.0 Localized edema; I87.2 Venous insufficiency (chronic) (peripheral); J44.9 Chronic obstructive pulmonary disease, unspecified; J96.11 Chronic respiratory failure with hypoxia; E87.6 Hypokalemia; E87.3 Alkalosis; I27.20 Pulmonary hypertension, unspecified; E78.5 Hyperlipidemia, unspecified; I10 Essential (primary) hypertension; E66.9 Obesity, unspecified; R06.02 Shortness of breath; M79.89 Other specified soft tissue disorders; F32.9 Major depressive disorder, single episode, unspecified; Z99.81 Dependence on supplemental oxygen; Z79.01 Long term (current) use of anticoagulants; Z79.899 Other long term (current) drug therapy; Z86.718 Personal history of other venous thrombosis and embolism; Z86.711 Personal history of pulmonary embolism; Z68.33 Body mass index [BMI] 33.0-33.9, adult; Z71.3 Dietary counseling and surveillance; Z87.891 Personal history of nicotine dependence; Z91.11 Patient's noncompliance with dietary regimen
CPT/HCPCS: 36415; 36600; 71046; 80048; 80053; 80061; 81001; 82803; 83735; 83880; 84100; 84484; 85025; 85610; 87804; 93005; 93306; 94640; 94667; 94668; 96365; 96375; 96376; 99218; 99285; P9612; Q9957; A4216; G0378; J1940

== ENCOUNTER 2017-12-26 12:18 | Emergency (ER) | payer MEDICARE, SELFPAY ==
[2017-12-26 12:19] VITALS: BP 141/96; PULSE 85; RESP 20; TEMP 36.6; O2SAT 92; BMI 33.5
[2017-12-26 12:49] VITALS: PULSE 91; RESP 19; O2SAT 96; O2SAT 97
--- NOTE | 2017-12-26 12:57 | EKG12_ITS ---
Test Reason : SOB Blood Pressure : / mmHG Vent. Rate : 088 BPM Atrial Rate : 078 BPM P-R Int : 000 ms QRS Dur : 074 ms QT Int : 376 ms P-R-T Axes : 000 060 043 degrees QTc Int : 454 ms Atrial fibrillation Low voltage QRS Abnormal ECG Confirmed by CARLIE BHAT, KATELYN ([id number]), supervising film or videotape editor BANG URBINA ([id number]) on 12/27/2017 5:00:23 PM Referred By: MADIE Confirmed By:KATELYN SEXTON MD
[2017-12-26] MEDS: MethylPREDNISolone 125 MG/2 ML Vial IV (13:12)
[2017-12-26 13:14] VITALS: PULSE 98; RESP 24
[2017-12-26] MEDS: Ipratropium/Albuterol Sulfate 3 ML AMPUL.NEB INHALATION (13:14)
[2017-12-26 13:34] LABS: Absolute Lymphocyte Count 1.97 X10^3/ul (0.83-4.51); Absolute Neutrophil Count 9.1 X10^3/uL (2.0-7.7); Basophil# 0.01 X10^3/uL; Basophil% 0.1 % (0-1); Eosinophil# 0.16 X10^3/uL; Eosinophils% 1.3 % (0-5); Hematocrit 37.7 % (37-47); Hemoglobin 11.6 g/dl (12.0-15.0); Lymphocyte # 1.97 X10^3/ul (4.0); Lymphocyte % 16.3 % (19-41); Mean Corp Hgb Conc 30.8 g/gl (32-36); Mean Corpuscular Hgb 28.5 pg (27.0-32.0); Mean Corpuscular Volume 92.6 fL (81-99); Mean Platelet Vol. 11.6 fl (6.2-12.0); Monocyte# 0.89 X10^3/uL; Monocyte% 7.3 % (0-10); Neutrophil # 9.08 X10^3/uL (2.7-7.7); Neutrophil % 74.9 % (47-70); Platelet Count 258 K/mm3 (150-450); RBC Distribution Width CV 14.3 % (11.6-14.6); RBC Distribution Width SD 48.6 fl (35.1-43.9); Red Blood Count 4.07 M/mm3 (4.2-5.4); White Blood Count 12.1 K/mm3 (4.4-11.0)
[2017-12-26 13:36] LABS: POSITIVE COUNT NO; POSITIVE DIFFERENTIAL NO; POSITIVE MORPHOLOGY NO
[2017-12-26 13:39] LABS: International Normalized Ratio 2.4; Prothrombin Time (Protime)PT. 25.9 SECONDS (11.7-14.9)
--- NOTE | 2017-12-26 13:40 | RAD_ITS ---
STUDY: X-RAY CHEST REASON FOR EXAM: Female, 72 years old. Wheezing, COPD TECHNIQUE: PA and lateral views of the chest. COMPARISON: 12/03/2017 FINDINGS: Interstitial markings are prominent. There is no focal consolidation. There is no demonstrated pleural abnormality. Normal size heart. Normal mediastinum and betty. Normal visualized pulmonary arteries. There is atherosclerotic tortuosity of the aortic arch and descending thoracic aorta. There are diffuse degenerative changes of the visualized thoracic spine. The bones are demineralized. There is no demonstrated abnormality of the visualized soft tissue structures of the upper abdomen. RAD/Chest PA and Lateral IMPRESSION: Prominent interstitial markings without significant change from prior study. No focal consolidation. Electronically Signed: El Aguilar DO at 14:12 EDT Tel , Service support ,
[2017-12-26 13:52] LABS: Anion Gap 2 (5-15); BUN 13 mg/dL (7-18); BUN/Creat Ratio 21.6 RATIO (10-20); Calcium,Total 8.7 mg/dL (8.5-10.1); Chloride 100 mmol/L (98-107); EST Glomerular Filtration Rate 104 mL/min (>60); Est Glom Filt Rate - Afr Amer 125 mL/min (>60); Glucose 86 mg/dL (74-106); Potassium 3.8 mmol/L (3.5-5.1); Sodium Level 137 mmol/L (136-145)
[2017-12-26 13:58] LABS: Lactic Acid 1.1 mmol/L (0.4-2.0)
[2017-12-26 14:02] LABS: BNP,B-Type NATRIURETIC PEPTIDE 213.7 pg/mL (0-100)
[2017-12-26 14:25] VITALS: BP 132/97; PULSE 92; RESP 16; O2SAT 97
--- NOTE | 2017-12-26 14:37 | EKG12_ITS ---
Test Reason : REPEAT Blood Pressure : / mmHG Vent. Rate : 102 BPM Atrial Rate : 107 BPM P-R Int : 000 ms QRS Dur : 074 ms QT Int : 362 ms P-R-T Axes : 000 066 042 degrees QTc Int : 471 ms Atrial fibrillation Abnormal ECG Confirmed by CARLIE BHAT, KATELYN ([id number]), staff editor BANG URBINA ([id number]) on 12/27/2017 5:00:37 PM Referred By: MADIE Confirmed By:KATELYN SEXTON MD
[2017-12-26 15:24] VITALS: BMI 33.5
--- NOTE | 2017-12-26 15:52 | ED.VISSUMM ---
- ER Visit Summary Date of Service: 12/26/17 Chief Complaint: Shortness of breath History of Present Illness: The patient is a [address] Perez and Dr. Barnard. She has a history of COPD and is on 2 L of home O2. She was admitted to the hospital approximately 2 weeks ago with a COPD exacerbation reports she was feeling much better when she went home. However, patient reports that she has shortness of breath began approximately 1 week ago. This is much worse when she exerts herself. States that she gets mild relief with her albuterol. She does have a cough that is nonproductive. She denies any fever, chills, or chest pain. Patient reports that she has had increased ankle swelling over the past week. Physical Examination: Vitals: Stable. Afebrile. General: Well-nourished and well-developed. Head: Normocephalic atraumatic. Neck: Supple, no lymphadenopathy. No JVD. Nontender. Cardiovascular: Irregularly irregular. No murmurs. Respiratory: Mild respiratory distress. Mild wheezing bilaterally with greatly decreased air movement. Abdominal: Soft, nontender, nondistended, normal bowel sounds. No guarding, rebound, or peritoneal signs. Back: Nontender. Extremities: Nontender, 2+ pitting edema over lower extremity bilaterally. Skin: Normal color, no rash. Neurologic: Alert and oriented ?3. Cranial nerves II through XII are intact. Normal strength and sensation. Psych: Normal affect. Test Results: EKG is A. fib at 88 which is a change from last month. Repeat EKG is unchanged. Chest x-ray shows chronic changes with prominent interstitial markings. No change from previous. CBC is marked for white count of 12.1 with 75 segmented neutrophils and 16 lymphocytes. However, the patient is on steroids. Hemoglobin is 11.6. Chem-7 is more for CO2 of 35. INR is 2.4. Lactic acid is 1.1. Troponin is negative. BTNP is 213.7. Emergency Department Course and Treatment: Patient was treated albuterol Atrovent aerosols. She is given Solu-Medrol IV. She is given Cardizem CD p.o. Treatment Plan: The patient was discussed with Dr. Jaffe. Her rate is controlled and she is already anticoagulated. She would like to go home. She will be placed on 120 mg of Cardizem a day and instructed to follow-up with him in the office for further outpatient evaluation. Return to the emergency department for any worsening symptoms. Disposition: To home in improved and stable condition. Impression: 1. New onset atrial fibrillation. 2. Dyspnea. 3. COPD. 4. Coumadin coagulopathy. This note was generated with [employer] dictation software. It may contain incorrect words, spelling, and punctuation that were not noted in review of the chart prior to signing ED Disposition - Plan for ED Patient: Disposition: Home or Assisted Living Chief Complaint: Shortness of Breath Instructions: ED Afib Prescriptions: Diltiazem CD [Cardizem CD] 120 mg PO DAILY #30 capsule Furosemide [Lasix] 20 mg PO DAILY #5 tablet Referrals: Tor Jaffe MD [STAFF PHYSICIAN] - 1 Week
[2017-12-26] MEDS: dilTIAZem CD 120 MG Capsule PO (16:16)
[2017-12-26 16:18] VITALS: BP 130/99; PULSE 91; RESP 20; O2SAT 94
--- NOTE | 2017-12-27 17:19 | CM.ED ---
Addendum entered by Johnna Kirk 12/27/17 17:34: Patient declined [facility] referral at this time. Original Note: ED CALLBACK: Patient states that she is feeling no better and about the same as during her ED visit. She states her oxygen level fluctuates but is at 90% at rest. She has an appointment scheduled, with Dr. Jaffe, for Monday. She states her daughter will take her and if her daughter cannot she will take a cab. I instructed patient to return to ED if her symptoms worsen. Discussed palliative care and patient was open to a referral for this service. She did express financial concern if there is a copay. Palliative office is closed at this time. Referral faxed.
== END 2017-12-26 16:19 | disposition home or self-care (01) ==
LOC: ED 13:34
PROVIDERS: Emergency Provider Emergency Medicine; Family Provider Family Medicine; PCP Family Medicine
DX: I48.91 Unspecified atrial fibrillation (principal); J44.9 Chronic obstructive pulmonary disease, unspecified; R79.1 Abnormal coagulation profile; T45.515A Adverse effect of anticoagulants, initial encounter; Y92.9 Unspecified place or not applicable; I27.20 Pulmonary hypertension, unspecified; I10 Essential (primary) hypertension; M25.473 Effusion, unspecified ankle; Z79.01 Long term (current) use of anticoagulants; Z79.899 Other long term (current) drug therapy; Z86.718 Personal history of other venous thrombosis and embolism; Z86.711 Personal history of pulmonary embolism; Z87.891 Personal history of nicotine dependence
CPT/HCPCS: 36415; 71046; 80048; 83605; 83880; 84484; 85025; 85610; 87040; 93005; 94640; 96374; 99285; A4216

== ENCOUNTER 2018-01-28 01:51 | Inpatient (IN) | payer MEDICARE, SELFPAY ==
[2018-01-28] VITALS (32 sets, daily range): BP systolic 102–175; BP diastolic 67–123; PULSE 69–178; RESP 16–34; TEMP 36.4–37.1; O2SAT 94–100; BMI 36.0; BMI 34.2
--- NOTE | 2018-01-28 02:15 | RAD_ITS ---
STUDY: X-RAY CHEST REASON FOR EXAM: Female, 72 years old. SOB TECHNIQUE: Single frontal view of the chest. COMPARISON: 12/26/2017 FINDINGS: Chronic interstitial lung changes without acute alveolar disease. Left basilar atelectasis. There is no demonstrated pleural abnormality. Normal size heart. Normal mediastinum and betty. Normal visualized pulmonary arteries. Normal visualized aortic arch and descending thoracic aorta. Normal visualized thoracic spine. Normal visualized ribs, clavicles, and shoulders. There is no demonstrated abnormality of the visualized soft tissue structures of the upper abdomen. RAD/Chest 1 View (Portable) IMPRESSION: Chronic interstitial lung changes without acute alveolar disease. Left basilar atelectasis. Electronically Signed: José Morris MD at 3:23 EDT Tel , Service support ,
--- NOTE | 2018-01-28 02:16 | EKG12_ITS ---
Test Reason : TACHY Blood Pressure : / mmHG Vent. Rate : 169 BPM Atrial Rate : 174 BPM P-R Int : 000 ms QRS Dur : 068 ms QT Int : 252 ms P-R-T Axes : 000 076 051 degrees QTc Int : 422 ms Atrial fibrillation Low voltage QRS Nonspecific ST abnormality Abnormal ECG Confirmed by CARLIE BHAT, KATELYN ([id number]), features editor BANG URBINA ([id number]) on 01/30/2018 1:39:48 PM Referred By: DR RAMACHANDRAN Confirmed By:KATELYN SEXTON MD
[2018-01-28] MEDS: dilTIAZem 25 MG/5 ML Vial 20 MG IV BOLUS (02:18)
[2018-01-28] MEDS: MethylPREDNISolone 125 MG/2 ML Vial IV (02:20)
[2018-01-28] MEDS: Ipratropium/Albuterol Sulfate 3 ML AMPUL.NEB INHALATION ×6 (02:27→22:30)
[2018-01-28] MEDS: Albuterol 2.5 MG/3 ML VIAL.NEB. INHALATION ×2 (02:28)
[2018-01-28] MEDS: dilTIAZem 25 MG/5 ML Vial IV BOLUS (02:43)
[2018-01-28 02:44] LABS: International Normalized Ratio 3.1; Prothrombin Time (Protime)PT. 32.1 SECONDS (11.7-14.9)
[2018-01-28 02:45] LABS: Absolute Lymphocyte Count 1.53 X10^3/ul (0.83-4.51); Absolute Neutrophil Count 11.6 X10^3/uL (2.0-7.7); Basophil# 0.04 X10^3/uL; Basophil% 0.3 % (0-1); Eosinophil# 0.04 X10^3/uL; Eosinophils% 0.3 % (0-5); Hematocrit 38.2 % (37-47); Hemoglobin 11.6 g/dl (12.0-15.0); Lymphocyte # 1.53 X10^3/ul (4.0); Mean Corp Hgb Conc 30.4 g/gl (32-36); Mean Corpuscular Hgb 27.6 pg (27.0-32.0); Mean Platelet Vol. 12.6 fl (6.2-12.0); Neutrophil # 11.57 X10^3/uL (2.7-7.7); Neutrophil % 83.3 % (47-70); Platelet Count 305 K/mm3 (150-450); RBC Distribution Width CV 14.1 % (11.6-14.6); RBC Distribution Width SD 46.7 fl (35.1-43.9); White Blood Count 13.9 K/mm3 (4.4-11.0)
[2018-01-28 02:53] LABS: Anion Gap 7 (5-15); BUN 15 mg/dL (7-18); BUN/Creat Ratio 23.3 RATIO (10-20); Calcium,Total 9.2 mg/dL (8.5-10.1); Chloride 101 mmol/L (98-107); Creatinine, Serum 0.64 mg/dL (0.55-1.02); EST Glomerular Filtration Rate 96 mL/min (>60); Est Glom Filt Rate - Afr Amer 116 mL/min (>60); Glucose 137 mg/dL (74-106); Potassium 4.2 mmol/L (3.5-5.1); Sodium Level 141 mmol/L (136-145)
[2018-01-28 03:01] LABS: POSITIVE COUNT NO; POSITIVE DIFFERENTIAL NO; POSITIVE MORPHOLOGY NO
--- NOTE | 2018-01-28 03:21 | NURSING ---
per dr. seo increase cardizem to 10mg/hr.
--- NOTE | 2018-01-28 03:28 | ED.VISSUMM ---
- ER Visit Summary Date of Service: 01/28/18 Chief Complaint: Shortness of breath History of Present Illness: The patient is a [address] Perez and Dr. Chavarria. She has a history of COPD and is on home O2 at 2 L. She also history of pulmonary hypertension, atrial fibrillation, and PE. She is on Coumadin. Patient reports that she has shortness of breath began approximately 1 week ago and is gradually gotten worse. It is now severe. Is worsened with exertions. Is relieved by nothing. She reports she has a chronic cough at night that is occasionally productive of brown mucus without blood. She denies any fever, chills, or chest pain. Physical Examination: Vitals: 98.7, 159/123, 178, 29, 97% on a nonrebreather. General: Well-nourished and well-developed. Head: Normocephalic atraumatic. Neck: Supple, no lymphadenopathy. No JVD. Nontender. Cardiovascular: Tachycardic irregular rhythm. No murmurs. Respiratory: Severe respiratory distress with minimal wheezing, but very little air movement. Abdominal: Soft, nontender, nondistended, normal bowel sounds. No guarding, rebound, or peritoneal signs. Back: Nontender. Extremities: Nontender, 2+ pitting edema over lower extremities bilaterally. Skin: Normal color, no rash. Neurologic: Alert and oriented ?3. Cranial nerves II through XII are intact. Normal strength and sensation. Psych: Normal affect. Test Results: EKG is A. fib at [address] changes. Troponins negative. INR 3.1. Chem-7 is more for CO2 of 33 and glucose 137. CBC is marked for a white count of 13.9 with 83 segmented neutrophils and 11 lymphocytes. Hemoglobin is 11.6. Chest x-ray shows chronic changes and atelectasis. Emergency Department Course and Treatment: Patient had an IV placed. She was given 20 mg of Cardizem IV. Heart rate decreased into the 1 teens. She is given 25 mg of Cardizem IV. Heart rate is still approximately 105. She was started on a Cardizem drip at 10 mg/h. She was also given albuterol and Atrovent aerosols. She was given Solu-Medrol IV. The patient refused BiPAP. I had a prolonged discussion the patient about her wishes. At this time she does not want intubation. She signed DNR Comfort Care arrest paperwork. Treatment Plan: Patient was discussed with Dr. Pulliam. She will be admitted to the hospital for further evaluation and treatment. Disposition: Admitted in improved, but serious condition. Impression: 1. Atrial fibrillation with RVR. 2. COPD exacerbation. 3. Pulmonary hypertension. 4. Coumadin coagulopathy. 5. DNR Comfort Care arrest. 6. Critical care time 30 minutes. This note was generated with [employer] dictation software. It may contain incorrect words, spelling, and punctuation that were not noted in review of the chart prior to signing ED Disposition - Plan for ED Patient: Chief Complaint: Shortness of Breath Referrals: José Perez MD [Primary Care Provider] -
--- NOTE | 2018-01-28 03:29 | PCM.HP.STD ---
Problem List (1) Atrial fibrillation with RVR Status: Acute (2) Acute respiratory failure Status: Acute (3) Hypokalemia Status: Acute (4) Pulmonary HTN Status: Chronic (5) Metabolic alkalosis with respiratory acidosis Status: Acute (6) COPD exacerbation Status: Acute (7) History of pulmonary embolus (PE) Status: Chronic (8) History of DVT (deep vein thrombosis) Status: Chronic (9) Essential hypertension Status: Chronic History of Present Illness Date of Admission: 01/28/18 Chief Complaint: Acute respiratory failure The patient is a 72 year old female w/ h/o PE, pulmonary HTN, DVT, COPD, PAF and lipidemia admitted for acute respiratory failure. She has been SOB for the past week. Nothing made her SOB better or worse. Her SOB has been constant and interfered with her ADLs. Her SOB is associated with a mild productive cough. Intensity and frequency of cough have not changed. She has headache in the past few days as well. She thinks her headache is caused by her SOB. She is unable to care for herself secondary to to worsening SOB so she went to the ED for further workup. Past Medical History Past Medical History (Chronic Problems): Chronic Problems (Last Reviewed 12/29/17 @ 15:36 by Freida Garcia) Venous insufficiency (Chronic) Pulmonary HTN (Chronic) History of pulmonary embolus (PE) (Chronic) History of DVT (deep vein thrombosis) (Chronic) Essential hypertension (Chronic) Dyslipidemia (Chronic) COPD (chronic obstructive pulmonary disease) (Chronic) Medical History: Medical History (Last Reviewed 12/29/17 @ 15:36 by Freida Garcia) Venous insufficiency (Chronic) I87.2 Hypokalemia (Acute) E87.6 Pulmonary HTN (Chronic) I27.20 Metabolic alkalosis with respiratory acidosis (Acute) E87.4 COPD exacerbation (Acute) J44.1 History of pulmonary embolus (PE) (Chronic) Z86.711 History of DVT (deep vein thrombosis) (Chronic) Z86.718 Essential hypertension (Chronic) I10 Dyslipidemia (Chronic) E78.5 COPD (chronic obstructive pulmonary disease) (Chronic) J44.9 Allergies amlodipine besylate [From [facility]] Adverse Reaction (Verified 01/28/18 02:13) ANKLE AND LEG EDEMA RESOLVED OFF MED-PER PCP PAPERWORK codeine Adverse Reaction (Verified 01/28/18 02:13) MENTAL STATUS CHANGE lisinopril Adverse Reaction (Verified 01/28/18 02:13) COUGH Home Medications: Ambulatory Orders Medication Instructions Recorded Albuterol Sulfate [Proair Hfa] 2 puff IH Q4H PRN PRN 07/19/15 Atenolol [Tenormin (beta donna)] 50 mg PO DAILY 07/19/15 Citalopram [Celexa] 20 mg PO BID 07/19/15 Ergocalciferol [Vitamin D] 50,000 unit PO TH 07/19/15 Warfarin [Coumadin] 5 mg PO SUTUWETHSA 07/19/15 Zolpidem Tartrate [Ambien] 10 mg PO QHS PRN 07/19/15 Ipratropium/Albuterol Sulfate 3 ml INHALATION 4X/DAY 12/16/15 [Duoneb] Budesonide [Pulmicort] 0.25 mg IH BID 12/26/17 furosemide 40 mg tablet 40 mg PO QDAY #90 tab 12/29/17 Surgical History: Surgical History (Last Reviewed 01/28/18 @ 03:38 by Ravindra Pulliam MD) History of cholecystectomy Z90.49 History of total hysterectomy Z90.710 tailbone surgery Surgical History: noncontributory Psychiatric History: Depression 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 Smoking Status: Former smoker Alcohol: None Drugs: None - *Family History Maternal Family History: Family History (Last Reviewed 12/29/17 @ 15:36 by Freida Garcia) Sister Heart disease History Items: No pertinent history Paternal Family History: Family History (Last Reviewed 12/29/17 @ 15:36 by Freida Garcia) Sister Heart disease History Items: No pertinent history Review of Systems Constitutional: Denies: Chills, Fever, Weight Change HEENT: Denies: Head Aches, Sinus Congestion, Sinus Drainage Cardiovascular: Denies: Chest Pain, Palpitations Respiratory: Reports: Cough, Shortness of Breath, Sputum production, Wheezing. Denies: Shortness of breath at rest Gastrointestinal: Denies: Abdominal Pain, Nausea, Vomiting Genitourinary: Denies: Dysuria Musculoskeletal: Denies: Joint Pain, Joint Tenderness Skin: Denies: Rash, Wounds Neurological: Denies: Numbness, Tingling, Focal weakness Psychiatric: Denies: Anxiety, Depression, Homicidal Ideations, Suicidal Ideations Hematologic/ Lymphatic: Denies: Easy Bruising, Easy Bleeding VTE Information - Inpt Only VTE Present on Admission: No VTE Mechan Device Prophylaxis: SCD's VTE Pharm Prophylaxis ordered?: Yes Patient Problems: Active and Suspected Problems (Last Reviewed 12/29/17 @ 15:36 by Freida Garcia) Atrial fibrillation with RVR (Acute) Acute respiratory failure (Acute) - Physical Exam General: Alert, Oriented x3, Cooperative HEENT: Atraumatic, PERRLA, EOMI, Normocephalic Neck: Supple, No JVD, Negative Carotid Bruits Lungs: Clear to auscultation, Normal air movement Cardiovascular: Irregular Rate, Murmur - II/ systolic murmur Abdomen: Bowel Sounds Present, Soft, Non Tender Extremities: Capillary Refill Less than 3 Seconds, Edema - 2+ edema Skin: No rashes, No breakdown Musculoskeletal: No Tenderness to Palpation of Joints or Extremities Neurological: Cranial nerves II-XII grossly intact Psych/Mental Status: Normal Affect, Appropriate Vital Signs Temp Pulse Resp BP Pulse Ox 98.7 F 93 24 H 129/80 H 96 01/28/18 01:56 01/28/18 02:46 01/28/18 02:46 01/28/18 02:46 01/28/18 02:46 Oxygen Flow Rate (L/min) 15 Oxygen Delivery Method Non-Rebreather Weight: 101.2 kg Body Mass Index (BMI) 36.0 Laboratory Tests Past 24 Hrs 01/28/18 01/28/18 01/28/18 02:10 02:10 02:10 WBC 13.9 H RBC 4.20 Hgb 11.6 L Hct 38.2 MCV 91.0 MCH 27.6 MCHC 30.4 L RDW 14.1 RDW Differential 46.7 H Plt Count 305 MPV 12.6 H Immature Gran % (Auto) 0.100 Neut % (Auto) 83.3 H Lymph % (Auto) 11.0 L Trimble % (Auto) 5.0 Eos % (Auto) 0.3 Baso % (Auto) 0.3 Absolute Neuts (auto) 11.6 H Absolute Lymphs (auto) 1.53 Total Counted Not Reportable PT INR Sodium 141 Potassium 4.2 Chloride 101 Carbon Dioxide 33.0 H Anion Gap 7 BUN 15 Creatinine 0.64 Estim Creat Clear Calc 46.20 Est GFR (MDRD) Af Amer 116 Est GFR (MDRD) Non-Af 96 BUN/Creatinine Ratio 23.3 H Glucose 137 H Calcium 9.2 Troponin I < 0.015 B-Natriuretic Peptide Pending 01/28/18 02:10 WBC RBC Hgb Hct MCV MCH MCHC RDW RDW Differential Plt Count MPV Immature Gran % (Auto) Neut % (Auto) Lymph % (Auto) Trimble % (Auto) Eos % (Auto) Baso % (Auto) Absolute Neuts (auto) Absolute Lymphs (auto) Total Counted PT 32.1 H INR 3.1 Sodium Potassium Chloride Carbon Dioxide Anion Gap BUN Creatinine Estim Creat Clear Calc Est GFR (MDRD) Af Amer Est GFR (MDRD) Non-Af BUN/Creatinine Ratio Glucose Calcium Troponin I B-Natriuretic Peptide Assessment/Plan All Active Problems (Last Reviewed 12/29/17 @ 15:36 by Freida Garcia) Atrial fibrillation with RVR (Acute) Acute respiratory failure (Acute) Hypokalemia (Acute) Metabolic alkalosis with respiratory acidosis (Acute) COPD exacerbation (Acute) 72 year old female w/ h/o PE, pulmonary HTN, DVT, COPD, PAF and lipidemia admitted for acute respiratory failure. 1) Acute respiratory failure: Most likely multifactorial including COPD exacerbation and acute on chronic systolic heart failure. Will start duonebs, steroid and azithromycin. Will also start IV lasix. C/w oxygen. Pt refused bipap. Cultures pending. 2) Afib with RVR: S/p cardizem bolus. C/w cardizem bolus. Will get trops. Will also get ECHO. C/w coumadin. Monitor. 3) H/o pulmonary HTN / DVT: C/w coumadin. Supportive care. 4) Prophylaxis: SCD / coumadin. 5) Dispo: Probably will need ECF placement.
[2018-01-28 03:57] LABS: BNP,B-Type NATRIURETIC PEPTIDE 370.7 pg/mL (0-100)
--- NOTE | 2018-01-28 03:58 | NURSING ---
Called ED necktie stitcher, Erica at this time to confirm Pt is okay to come to PCU.
[2018-01-28] MEDS: Metoprolol Tartrate 5 MG/5 ML Vial IV (04:00)
[2018-01-28 06:07] LABS: International Normalized Ratio 3.2; Prothrombin Time (Protime)PT. 33.2 SECONDS (11.7-14.9)
[2018-01-28 06:09] LABS: Absolute Lymphocyte Count 0.42 X10^3/ul (0.83-4.51); Absolute Neutrophil Count 11.9 X10^3/uL (2.0-7.7); Basophil# 0.01 X10^3/uL; Basophil% 0.1 % (0-1); Hematocrit 35.3 % (37-47); Hemoglobin 10.7 g/dl (12.0-15.0); Lymphocyte # 0.42 X10^3/ul (4.0); Lymphocyte % 3.4 % (19-41); Mean Corp Hgb Conc 30.3 g/gl (32-36); Mean Corpuscular Hgb 27.9 pg (27.0-32.0); Mean Corpuscular Volume 92.2 fL (81-99); Mean Platelet Vol. 12.3 fl (6.2-12.0); Monocyte# 0.15 X10^3/uL; Monocyte% 1.2 % (0-10); Neutrophil # 11.88 X10^3/uL (2.7-7.7); Neutrophil % 95.1 % (47-70); Platelet Count 249 K/mm3 (150-450); RBC Distribution Width CV 13.9 % (11.6-14.6); RBC Distribution Width SD 45.6 fl (35.1-43.9); Red Blood Count 3.83 M/mm3 (4.2-5.4); White Blood Count 12.5 K/mm3 (4.4-11.0)
[2018-01-28 06:15] LABS: Differential Indicated SCAN CRITERIA MET; POSITIVE COUNT NO; POSITIVE DIFFERENTIAL YES; POSITIVE MORPHOLOGY NO
[2018-01-28 06:31] LABS: ALB/GLOB Ratio 0.6 RATIO (0.9-2.4); AST(SGOT) 36 U/L (15-37); Alanine Aminotransfer ALT/SGPT 49 U/L (13-56); Albumin, Serum 2.9 g/dL (3.2-5.0); Alkaline Phosphatase 104 U/L (45-117); Anion Gap 9 (5-15); BUN 16 mg/dL (7-18); BUN/Creat Ratio 25.9 RATIO (10-20); Calcium,Total 8.5 mg/dL (8.5-10.1); Chloride 103 mmol/L (98-107); Cholesterol 175 mg/dL (200); Creatinine, Serum 0.62 mg/dL (0.55-1.02); Differential Comment SCANNED; EST Glomerular Filtration Rate 100 mL/min (>60); Est Glom Filt Rate - Afr Amer 121 mL/min (>60); Globulin 4.6 g/dL (2.2-4.2); Glucose 167 mg/dL (74-106); High Density Lipoprotein 43 mg/dL; Potassium 4.1 mmol/L (3.5-5.1); Protein, Total 7.5 g/dL (6.4-8.2); Sodium Level 143 mmol/L (136-145); Thyroid Stim Hormone (TSH) 0.69 uIU/mL (0.358-3.74); Triglycerides 87 mg/dL; Very Low Density Lipoprotein 17 mg/dL (5-40)
[2018-01-28 06:45] LABS: D-Dimer Quantitative (DVT/PE) 0.45 FEU/ug/m (0.27-0.49)
--- NOTE | 2018-01-28 08:43 | CPS ---
pt decreased to 4 lpm. Sat 98% on 4lpm. Nurse aware of change
[2018-01-28] MEDS: Furosemide 40 MG/4 ML Vial IV ×2 (09:56→16:30)
[2018-01-28] MEDS: Citalopram 20 MG Tablet PO ×2 (09:56→21:45)
[2018-01-28] MEDS: dilTIAZem 60 MG Tablet PO ×3 (09:56→21:45)
[2018-01-28] MEDS: Aspirin 81 MG TAB.CHEW PO (09:56)
[2018-01-28] MEDS: Atenolol 50 MG Tablet PO (09:56)
[2018-01-28] MEDS: 0.9% NaCl Peripheral Flush Adult/Peds IV ×4 (09:57→21:45)
--- NOTE | 2018-01-28 11:13 | PCM.HOSP.N ---
Hospitalist Note Patient seen and examined briefly today, she remains in atrial fibrillation with a well-controlled ventricular response, patient states she had followed up at one time with Dr. Jaffe but does not want to go back to see him because I did not like him. I took the patient off her Cardizem drip this morning and started her on oral Cardizem, she is already on a beta-donna. I do not hear significant wheezing today on auscultation of the lungs, patient appears comfortable on nasal cannula oxygen.
[2018-01-28] MEDS: Docusate Sodium 100 MG Capsule 200 MG PO (21:45)
[2018-01-28] MEDS: Zolpidem Tartrate 5 MG Tablet PO (21:49)
[2018-01-29] VITALS (19 sets, daily range): BP systolic 102–126; BP diastolic 60–92; PULSE 88–165; RESP 16–22; TEMP 36.4–36.9; O2SAT 95–98
[2018-01-29] MEDS: Albuterol 2.5 MG/3 ML VIAL.NEB. INHALATION (01:08)
[2018-01-29] MEDS: 0.9% NaCl Peripheral Flush Adult/Peds IV ×4 (05:28→18:17)
[2018-01-29] MEDS: dilTIAZem 60 MG Tablet PO ×2 (05:29→15:01)
[2018-01-29] MEDS: Ipratropium/Albuterol Sulfate 3 ML AMPUL.NEB INHALATION ×5 (06:34→22:38)
[2018-01-29] MEDS: Atenolol 50 MG Tablet PO ×2 (10:22→22:10)
[2018-01-29] MEDS: Citalopram 20 MG Tablet PO ×2 (10:22→22:11)
[2018-01-29] MEDS: Furosemide 40 MG/4 ML Vial IV ×2 (10:22→18:17)
[2018-01-29] MEDS: Aspirin 81 MG TAB.CHEW PO (10:22)
--- NOTE | 2018-01-29 11:43 | PCM.PROGNOTE ---
Patient Problems: Active and Suspected Problems (Last Reviewed 12/29/17 @ 15:36 by Freida Garcia) Atrial fibrillation with RVR (Acute) Acute respiratory failure (Acute) Subjective: Mrs. Quinn is a 72 YO female with a PMH of venous insufficiency, pulmonary hypertension, DVT and pulmonary emboli in the past, hypertension, dyslipidemia, COPD and chronic anticoagulation with warfarin who presented to the emergency department at [facility] on 715 complaining of increasing shortness of breath associated with a cough which was productive. Vital signs at presentation to the emergency room were temperature 98.7, pulse rate 178, blood pressure 159/123, respiratory rate 29 and she was 97% saturated on 815 L nasal cannula. White blood cell count was elevated at 13.9 with 83% neutrophils. Hemoglobin was 11.6 and platelets were within normal limits. INR was therapeutic at 3.1. Serum bicarb was increased at 33 with a BUN of 15 and a creatinine of 0.64. BNP was increased at 370.7. She was given a Cardizem bolus in the emergency room and ultimately placed on a Cardizem infusion. She was admitted to a monitored bed on PCU. She was started on IV Lasix but has not diuresed. GRETA hose have not been applied. PA systolic was recently 51 and EF was normal. The atria were of normal size. The right ventricle had normal systolic function. She is not wearing the compression stockings or CANDIE wraps at home as instructed because she lives alone and tells me she can not get them on. She does not weigh herself at home. she noramlly wears her oxygen at 2 LPM. Afebrile, blood pressure is 126/73 currently. Review of telemetry shows persistent atrial fibrillation. Heart rate at rest is fairly well controlled however when she is up and going to the bathroom more active in any way it increases to the 140-170 range. She continues to complain of shortness of breath, especially with exertion. Objective: General: alert, oriented X3, NAD, appropriate with normal affect Neck: supple, trachea midline, carotids have brisk upstroke and normal pulse volume, no JVD Lungs: rare scattered end expiratory wheeze, symmetric chest expansion, not tachypneic at rest, no conversational dyspnea at rest. Heart: Irregular rate and rhythm, normal S1, normal S2, no murmur, no gallop, no rub, somewhat distant heart sounds Abdomen: soft, NT, ND, BS's present, obese Extremities: tense pitting edema of both LE's to the knee, no calf tenderness, no cyanosis - Physical Exam Vital Signs Temp Pulse Resp BP Pulse Ox 97.8 F 103 H 18 115/72 96 01/29/18 10:00 01/29/18 10:00 01/29/18 10:00 01/29/18 10:00 01/29/18 10:00 Oxygen Flow Rate (L/min) 3 Oxygen Delivery Method Nasal Cannula Weight: 216 lb 14.958 oz Body Mass Index (BMI) 34.2 Intake and Output for Last 24 Hours 01/27/18 01/28/18 01/29/18 23:59 23:59 23:59 Intake Total 1078.9 / 1078.9 120 / 120 Output Total 500 / 500 0 / 0 Balance 578.9 / 578.9 120 / 120 Microbiology Past 72 Hours 01/28/18 06:00 Influenza Types A,B Direct FA (ROMI) - Final Mucosa - Nose Medical Necessity - Tobacco Use Smoking Status: Former smoker Assessment/Plan All Active Problems (Last Reviewed 12/29/17 @ 15:36 by Freida Garcia) Atrial fibrillation with RVR (Acute) Acute respiratory failure (Acute) Hypokalemia (Acute) Metabolic alkalosis with respiratory acidosis (Acute) COPD exacerbation (Acute) Impressions 1. New onset AF with RVR - not adequately controlled with the current medications 2. pulmonary HTN 3. diastolic dysfunction suggested on recent ECHO 4. hx of VTE with recurrent PE's and DVT's - susanna LL anticoagulation 5. Venous insufficiency 6. Hypertension 7. Dyslipidemia 8. COPD 9. Chronic respiratory failure with hypoxemia on home O2 10. Chronic anticoagulation with warfarin Consult Dr. Henson Since she is chronically anticoagulated with Warfarin and is therapeutic she may be a good candidate for cardioversion ......roma since a recent ECHO showed no atrial enlargement and no significant valvular heart disease Recheck the LAb in the AM Increase the Atenolol to BID and change the Cardizem dose to CD 180 mg BID. Will discuss with Dr. Henson. Code Visit Inpatient E&M: 950[address] [facility] Hosp L3
--- NOTE | 2018-01-29 13:34 | CASEMGMT ---
SW spoke with patient as she expressed interest in assisted living. SW spoke with her and let her know that insurance does not pay for assisted living unless she has Medicaid. She said she was told she had too much money for Medicaid. SW spend an extensive amount of time in room talking with patient about d/c options including SNF short term and then transition to [place]. She said she needs to think about it. Plan: erika VIZCARRA MSW
[2018-01-29] MEDS: Polyethylene Glycol 3350 17 GM PACKET PO (18:17)
[2018-01-29] MEDS: Zolpidem Tartrate 5 MG Tablet PO (22:10)
[2018-01-29] MEDS: dilTIAZem 25 MG/5 ML Vial 20 MG IV BOLUS (22:58)
[2018-01-30] VITALS (16 sets, daily range): BP systolic 109–140; BP diastolic 68–84; PULSE 86–109; RESP 16–22; TEMP 36.5–36.9; O2SAT 3–98
[2018-01-30] MEDS: dilTIAZem CD 180 MG Capsule PO ×3 (00:16→23:05)
[2018-01-30] MEDS: Ipratropium/Albuterol Sulfate 3 ML AMPUL.NEB INHALATION ×6 (04:06→22:53)
[2018-01-30] MEDS: Bisacodyl 10 MG Suppository RECTAL (06:48)
[2018-01-30 07:13] LABS: Hemoglobin 10.7 g/dl (12.0-15.0); Mean Corp Hgb Conc 29.7 g/gl (32-36); Mean Corpuscular Hgb 27.2 pg (27.0-32.0); Mean Corpuscular Volume 91.4 fL (81-99); Mean Platelet Vol. 12.3 fl (6.2-12.0); Platelet Count 287 K/mm3 (150-450); RBC Distribution Width CV 14.2 % (11.6-14.6); RBC Distribution Width SD 46.9 fl (35.1-43.9); Red Blood Count 3.94 M/mm3 (4.2-5.4); Scan Indicated on CBC? Y/N NO; White Blood Count 16.5 K/mm3 (4.4-11.0)
[2018-01-30 07:22] LABS: Anion Gap 5 (5-15); BUN 31 mg/dL (7-18); BUN/Creat Ratio 43.7 RATIO (10-20); Calcium,Total 8.9 mg/dL (8.5-10.1); Chloride 98 mmol/L (98-107); Creatinine, Serum 0.71 mg/dL (0.55-1.02); EST Glomerular Filtration Rate 86 mL/min (>60); Est Glom Filt Rate - Afr Amer 104 mL/min (>60); Glucose 104 mg/dL (74-106); Magnesium 2.5 mg/dL (1.6-2.6); Potassium 3.8 mmol/L (3.5-5.1); Sodium Level 141 mmol/L (136-145)
[2018-01-30 07:56] LABS: International Normalized Ratio 5.3
--- NOTE | 2018-01-30 08:18 | PCM.CONS.C ---
Reason for Consult Date of Consultation: 01/30/18 Reason for Consultation: Atrial fibrillation History of Present Illness: BERTO SIMPSON, is a 72 F who presents to the hospital today for for outpatient cardiovascular consultation based upon concerns of atrial fibrillation. She presented to the [facility] emergency department for ongoing shortness of breath and dyspnea. This is superimposed on a history of underlying COPD with a recent COPD exacerbation superimposed on a history of underlying thromboembolic disease with DVT/PE. She had been hospitalized in late November 2017 based upon concerns of her underlying pulmonary disease process. She was released home on medical management.In the emergency department she was also found to be in atrial fibrillation. She has already been on anticoagulant therapy.She had recently underwent evaluation with a transthoracic echocardiogram during her recent hospitalization. The results are as noted below. Left ventricular systolic function is normal. The estimated ejection fraction is 65 %. There is moderate mitral annular calcification. Extension of the mitral annular calcification onto the posterior mitral valve leaflet. Trivial mitral valve insufficiency. Trivial tricuspid valve insufficiency. Mild focal aortic valve thickening. Right ventricular systolic pressure estimated to be 51 mmHg. Transmitral diastolic flow velocities suggest diastolic dysfunction (pseudonormal pattern). She has been in atrial fibrillation and on this emergency room visit she was noted to be in a rapid ventricular response rate with rates up to 140 bpm she had her medications changed. Last night she was given intravenous Cardizem as well as a change in the dose of her oral Cardizem. She does not necessarily feel this atrial fibrillation. In addition of note was the fact that when she presented to the office in December she was noted to be in atrial fibrillation with a controlled ventricular response rate. In addition she was noted to be rather hypertensive when she presented and also had some shortness of breath and dyspnea. Past Medical History Allergies/Adverse Reactions: Allergies amlodipine besylate [From [facility]] Adverse Reaction (Verified 01/28/18 02:13) ANKLE AND LEG EDEMA RESOLVED OFF MED-PER PCP PAPERWORK codeine Adverse Reaction (Verified 01/28/18 02:13) MENTAL STATUS CHANGE lisinopril Adverse Reaction (Verified 01/28/18 02:13) COUGH Home Medications: Ambulatory Orders Medication Instructions Recorded Albuterol Sulfate [Proair Hfa] 2 puff IH Q4H PRN PRN 07/19/15 Atenolol [Tenormin (beta donna)] 50 mg PO DAILY 01/03/16 Citalopram [Celexa] 20 mg PO BID 07/19/15 Ergocalciferol [Vitamin D] 50,000 unit PO TH 07/19/15 Warfarin [Coumadin] 5 mg PO SUTUWETHSA 07/19/15 Zolpidem Tartrate [Ambien] 10 mg PO QHS PRN 07/19/15 Ipratropium/Albuterol Sulfate 3 ml INHALATION 4X/DAY 12/16/15 [Duoneb] Furosemide 40 mg PO DAILY 01/28/18 Past Medical History (Chronic Problems): Chronic Problems (Last Reviewed 12/29/17 @ 15:36 by Freida Garcia) Venous insufficiency (Chronic) Pulmonary HTN (Chronic) History of pulmonary embolus (PE) (Chronic) History of DVT (deep vein thrombosis) (Chronic) Essential hypertension (Chronic) Dyslipidemia (Chronic) COPD (chronic obstructive pulmonary disease) (Chronic) Surgical History: noncontributory Psychiatric History: Depression 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 Denies: Fever, Night Sweats Cardiovascular: Denies: Chest Discomfort, Shortness of Breath, Orthopnea, PND, Peripheral Edema, Palpitations, Lightheadedness, Dizziness, Near Syncope, Syncope Respiratory: Denies: Cough, Sputum Production, Hemoptysis Gastrointestinal: Denies: Hematemesis, Hematochezia, Melena Genitourinary: Denies: Dysuria, Hematuria Skin: Denies: Rash Subjectve: Pleasant lady in no apparent distress Objective: Vital Signs Temp Pulse Resp BP Pulse Ox 97.7 F L 90 18 137/81 H 95 01/30/18 04:00 01/30/18 06:57 01/30/18 04:07 01/30/18 04:00 01/30/18 04:00 Oxygen Flow Rate (L/min) 3 Oxygen Delivery Method Nasal Cannula Weight: 215 lb 2.738 oz Body Mass Index (BMI) 34.2 Intake and Output for Last 24 Hours 01/28/18 01/29/18 01/30/18 23:59 23:59 23:59 Intake Total 1078.9 / 1078.9 870 / 870 Output Total 500 / 500 750 / 750 Balance 578.9 / 578.9 120 / 120 General: Awake, Alert, Oriented x 3 HEENT: PERRL, EOMI, Sclera Non Icteric Neck: Supple, Good ROM, No Lymph Node Enlargement Lungs: Clear to auscultation Cardiovascular: Irregular Rhythm, Normal S1, Normal S2, No Murmurs, No Rubs, No Gallops Vascular: No Carotid Bruits, Normal Femoral Pulses, Normal Radial Pulses, Normal Dorsalis Pedal Pulse, Normal Posterior Tibial Pulses Abdomen: Bowel Sounds Present, Soft, Non Tender, No HSM, No Organomegaly Extremities: No Cyanosis, No Clubbing, No edema Neurological: No Focal Motor or Sensory Deficit 01/30/18 06:37: WBC 16.5 H, RBC 3.94 L, Hgb 10.7 L, Hct 36.0 L, MCV 91.4, MCH 27.2, MCHC 29.7 L, RDW 14.2, RDW Differential 46.9 H, Plt Count 287, MPV 12.3 H 01/30/18 06:37: PT 49.0 H, INR 5.3 H* 01/30/18 06:37: Sodium 141, Potassium 3.8, Chloride 98, Carbon Dioxide 38.0 H, Anion Gap 5, BUN 31 H, Creatinine 0.71, Est GFR (MDRD) Af Amer 104, Est GFR (MDRD) Non-Af 86, BUN/Creatinine Ratio 43.7 H, Glucose 104, Calcium 8.9, Magnesium 2.5 Rhythm: EKG: Atrial fibrillation Assessment/Plan 1. Atrial fibrillation with rapid ventricular response rate Patient presents once again with the above. This appears to be chronic persistent at this time as she has been and when she visited in the office. My recommendation would be for us to rate control her as it appears that when she is rate controlled she does not necessarily feel it. I suspect that her symptoms were likely secondary to her elevated blood pressure as well. Her ejection fraction at last evaluation was noted to be preserved. 2. Hypertension Blood pressure does not appear to be have been under good control and I would make some changes to the above with improvement. 3. Diastolic dysfunction-congestive heart failure She appears to have heart failure with preserved ejection fraction and I suspect the above was exacerbated by her elevated blood pressure as well as her atrial for ablation with a rapid ventricular response rate. We will continue gentle diuresis. This time there is no need to repeat her echocardiogram. 4. Pulmonary hypertension She appears to have pulmonary hypertension which is likely secondary to diastolic dysfunction. She will continue with the beta-donna as well as the diuretic at the current dose. My overall recommendation would be anticoagulation keeping her INR between 2 and 3 and rate control for her atrial fibrillation. Thank you for allowing me to participate in the care of your patient. Please don't hesitate to call if any issues arise
[2018-01-30] MEDS: Atenolol 50 MG Tablet PO ×2 (09:58→23:06)
[2018-01-30] MEDS: 0.9% NaCl Peripheral Flush Adult/Peds IV (09:58)
[2018-01-30] MEDS: Docusate Sodium 100 MG Capsule 200 MG PO (09:58)
[2018-01-30] MEDS: Citalopram 20 MG Tablet PO ×2 (09:58→23:05)
[2018-01-30] MEDS: Polyethylene Glycol 3350 17 GM PACKET PO (09:58)
[2018-01-30] MEDS: Aspirin 81 MG TAB.CHEW PO (09:58)
[2018-01-30] MEDS: Furosemide 40 MG/4 ML Vial IV ×2 (09:58→17:18)
--- NOTE | 2018-01-30 10:00 | CPS ---
Patient doing PEP on own
--- NOTE | 2018-01-30 13:20 | CASEMGMT ---
Social Work: Met with patient in room to discuss decision on D/C destination. Patient states she will return home at D/C as she does not want to go to a SNF and cannot afford assisted living. This SW offered the option of home health and patient states she will think about it. SW to continue to follow to assist as needed with D/C planning. TRINI Palma
--- NOTE | 2018-01-30 13:45 | CPS ---
patient working on PEP therapy on own
--- NOTE | 2018-01-30 15:50 | PCM.PROGNOTE ---
Patient Problems: Active and Suspected Problems (Last Reviewed 12/29/17 @ 15:36 by Freida Garcia) Atrial fibrillation with RVR (Acute) Acute respiratory failure (Acute) Subjective: All events of the past 24 Hours have been reviewed VS: Blood pressure is stable with increases in Cardizem and atenolol. Heart rate is adequately controlled at rest but she still goes into the 150s-170 range when up and walking. TMAX -afebrile since admission I&O -fluid balance since admission is +719. Her weight however has decreased from 218 pounds to 215 pounds. Telemetry -atrial fibrillation with RVR with even minimal exertion. controlled at rest...no pauses greater than 2 sec Lab: INR is 5.3 today and Coumadin was placed on hold. Hemoglobin is stable at 10.7. Serum bicarb is increased at 38 today and I suspect this is due to volume contraction related to twice daily IV Lasix. BUN is increased to 31 and the creatinine is 0.71. Subjective: She states her breathing has improved since admission. She denies any chest discomfort. Dry cough is improved. Still gets tachypneic with any degree of exertion Objective: General: alert, oriented X3, NAD, appropriate with normal affect Neck: supple, trachea midline, carotids have brisk upstroke and normal pulse volume, no JVD Lungs: rare scattered end expiratory wheeze, symmetric chest expansion, not tachypneic at rest, no conversational dyspnea at rest. No rales, very diminished BS's throughout Heart: Irregular rate and rhythm, normal S1, normal S2, no murmur, no gallop, no rub, somewhat distant heart sounds Abdomen: soft, NT, ND, BS's present, obese Extremities: less pitting edema of both LE's, no calf tenderness, no cyanosis, GRETA hose are in place today - Physical Exam Vital Signs Temp Pulse Resp BP Pulse Ox 98.5 F 101 H 22 H 139/77 H 98 01/30/18 09:55 01/30/18 15:35 01/30/18 15:35 01/30/18 09:55 01/30/18 11:59 Oxygen Flow Rate (L/min) 3 Oxygen Delivery Method Nasal Cannula Weight: 215 lb 2.738 oz Body Mass Index (BMI) 34.2 Intake and Output for Last 24 Hours 01/28/18 01/29/18 01/30/18 23:59 23:59 23:59 Intake Total 1078.9 / 1078.9 870 / 870 720 / 720 Output Total 500 / 500 750 / 750 700 / 700 Balance 578.9 / 578.9 120 / 120 20 / 20 Microbiology Past 72 Hours 01/28/18 06:00 Influenza Types A,B Direct FA (ROMI) - Final Mucosa - Nose Laboratory Tests Past 24 Hrs 01/30/18 01/30/18 01/30/18 06:37 06:37 06:37 WBC 16.5 H RBC 3.94 L Hgb 10.7 L Hct 36.0 L MCV 91.4 MCH 27.2 MCHC 29.7 L RDW 14.2 RDW Differential 46.9 H Plt Count 287 MPV 12.3 H PT 49.0 H INR 5.3 H* Sodium 141 Potassium 3.8 Chloride 98 Carbon Dioxide 38.0 H Anion Gap 5 BUN 31 H Creatinine 0.71 Estim Creat Clear Calc 48.00 Est GFR (MDRD) Af Amer 104 Est GFR (MDRD) Non-Af 86 BUN/Creatinine Ratio 43.7 H Glucose 104 Calcium 8.9 Magnesium 2.5 Medical Necessity - Tobacco Use Smoking Status: Former smoker Assessment/Plan All Active Problems (Last Reviewed 12/29/17 @ 15:36 by Freida Garcia) Atrial fibrillation with RVR (Acute) Acute respiratory failure (Acute) Hypokalemia (Acute) Metabolic alkalosis with respiratory acidosis (Acute) COPD exacerbation (Acute) Impressions 1. New onset AF with RVR - not adequately controlled with the current medications 2. pulmonary HTN 3. diastolic dysfunction suggested on recent ECHO 4. hx of VTE with recurrent PE's and DVT's - susanna LL anticoagulation 5. Venous insufficiency 6. Hypertension 7. Dyslipidemia 8. COPD 9. Chronic respiratory failure with hypoxemia on home O2 10. Chronic anticoagulation with warfarin 11. Metabolic alkalosis-suspect secondary to intravascular volume depletion Discussed with Dr. Henson-we will proceed with cardioversion in the a.m. Patient is agreeable to this plan. No further adjustments in medication since she is having a cardioversion in the a.m. and heart rate is controlled at rest currently. Convert to p.o. Lasix Recheck BMP in the a.m. Code Visit Inpatient E&M: 44510 Subs Hosp L2
--- NOTE | 2018-01-30 17:01 | EKG12_ITS ---
Test Reason : Blood Pressure : / mmHG Vent. Rate : 097 BPM Atrial Rate : 208 BPM P-R Int : 000 ms QRS Dur : 068 ms QT Int : 378 ms P-R-T Axes : 000 068 100 degrees QTc Int : 480 ms Atrial fibrillation Abnormal ECG When compared with ECG of 28-JAN-2018 01:57, Vent. rate has decreased BY 72 BPM Confirmed by CARLIE BHAT, KATELYN ([id number]), supervising editor trailer BANG URBINA ([id number]) on 02/02/2018 1:53:43 PM Referred By: KATHARINE Confirmed By:KATELYN SEXTON MD
[2018-01-30] MEDS: Zolpidem Tartrate 5 MG Tablet PO (23:05)
[2018-01-31] VITALS (21 sets, daily range): BP systolic 100–128; BP diastolic 59–77; PULSE 59–105; RESP 16–20; TEMP 36.6; O2SAT 95–100; BMI 33.7
[2018-01-31] MEDS: Ipratropium/Albuterol Sulfate 3 ML AMPUL.NEB INHALATION ×3 (03:05→11:27)
[2018-01-31 06:42] LABS: Anion Gap 3 (5-15); BUN 37 mg/dL (7-18); Calcium,Total 8.9 mg/dL (8.5-10.1); Chloride 97 mmol/L (98-107); Creatinine, Serum 0.73 mg/dL (0.55-1.02); EST Glomerular Filtration Rate 83 mL/min (>60); Est Glom Filt Rate - Afr Amer 101 mL/min (>60); Glucose 75 mg/dL (74-106); Magnesium 2.4 mg/dL (1.6-2.6); Potassium 3.6 mmol/L (3.5-5.1); Sodium Level 145 mmol/L (136-145)
[2018-01-31 06:45] LABS: International Normalized Ratio 3.4; Prothrombin Time (Protime)PT. 34.3 SECONDS (11.7-14.9)
[2018-01-31] MEDS: Aspirin 81 MG TAB.CHEW PO (07:19)
[2018-01-31] MEDS: Atenolol 50 MG Tablet PO (07:19)
[2018-01-31] MEDS: dilTIAZem CD 180 MG Capsule PO (07:20)
--- NOTE | 2018-01-31 07:41 | EKG12_ITS ---
Test Reason : POST CARDIOVERSION Blood Pressure : / mmHG Vent. Rate : 072 BPM Atrial Rate : 072 BPM P-R Int : 198 ms QRS Dur : 072 ms QT Int : 446 ms P-R-T Axes : 069 048 049 degrees QTc Int : 488 ms Sinus rhythm with Premature atrial complexes Low voltage QRS Prolonged QT Abnormal ECG No previous ECGs available Confirmed by ENOCH SINHA ([id number]), supervising film or videotape editor BANG URBINA ([id number] on 02/06/2018 2:06:23 PM Referred By: KATELYN SEXTON Confirmed By:ENOCH SINHA
--- NOTE | 2018-01-31 07:43 | NURSING ---
Successfully cardioverted with Dr. Cates and Dr. Henson at bedside. 50mg Iv propofol given. First shock given at 200J. Second shock given at 300J. Currently in normal sinus rhythm. VSS.
--- NOTE | 2018-01-31 07:49 | PCM.PN.CARD ---
Subjectve: Patient seen and evaluated Objective: Vital Signs Temp Pulse Resp BP Pulse Ox 97.8 F 63 16 103/59 L 97 01/31/18 07:20 01/31/18 07:45 01/31/18 07:45 01/31/18 07:45 01/31/18 07:45 Oxygen Flow Rate (L/min) 3 Oxygen Delivery Method Nasal Cannula Weight: 213 lb 10.047 oz Body Mass Index (BMI) 33.7 Intake and Output for Last 24 Hours 01/29/18 01/30/18 01/31/18 23:59 23:59 23:59 Intake Total 870 / 870 1160 / 1160 0 / 0 Output Total 750 / 750 1200 / 1200 Balance 120 / 120 -40 / -40 0 / 0 General: Awake, Alert, Oriented x 3 HEENT: PERRL, EOMI, Sclera Non Icteric Neck: Supple, Good ROM, No Lymph Node Enlargement Lungs: Clear to auscultation Cardiovascular: Irregular Rhythm, Normal S1, Normal S2, No Murmurs, No Rubs, No Gallops Vascular: No Carotid Bruits, Normal Femoral Pulses, Normal Radial Pulses, Normal Dorsalis Pedal Pulse, Normal Posterior Tibial Pulses Abdomen: Bowel Sounds Present, Soft, Non Tender, No HSM, No Organomegaly Extremities: No Cyanosis, No Clubbing, No edema Neurological: No Focal Motor or Sensory Deficit 01/30/18 06:37: PT 49.0 H, INR 5.3 H* 01/31/18 05:40: PT 34.3 H, INR 3.4 01/31/18 05:40: Sodium 145, Potassium 3.6, Chloride 97 L, Carbon Dioxide 45.0 H, Anion Gap 3 L, BUN 37 H, Creatinine 0.73, Est GFR (MDRD) Af Amer 101, Est GFR (MDRD) Non-Af 83, BUN/Creatinine Ratio 51.0 H, Glucose 75, Calcium 8.9, Magnesium 2.4 Rhythm: EKG: ECHO: Stress Test: Cardiac Cath: PCI: CT Surgery: Holter monitor: EPS: PPM: CXR: Chest CT Scan: Medical Necessity - Tobacco Use Smoking Status: Former smoker Assessment/Plan 1. Atrial fibrillation with rapid ventricular response rate She underwent DC cardioversion this morning successfully back to sinus rhythm. The plan would be to continue her on her anticoagulation as well as the beta-donna and calcium channel donna. 2. Hypertension Blood pressure does not appear to be have been under good control and I would make some changes to the above with improvement. 3. Diastolic dysfunction-congestive heart failure She appears to have heart failure with preserved ejection fraction and I suspect the above was exacerbated by her elevated blood pressure as well as her atrial for ablation with a rapid ventricular response rate. We will continue gentle diuresis. This time there is no need to repeat her echocardiogram. 4. Pulmonary hypertension She appears to have pulmonary hypertension which is likely secondary to diastolic dysfunction. She will continue with the beta-donna as well as the diuretic at the current dose. My overall recommendation would be anticoagulation keeping her INR between 2 and 3 and rate control for her atrial fibrillation. Hopefully she can be discharged later today if she is maintaining sinus rhythm. Thank you for allowing me to participate in the care of your patient. Please don't hesitate to call if any issues arise
--- NOTE | 2018-01-31 07:52 | PCM.OP.BLANK ---
Operative Report Date of Procedure: 01/31/18 CONSCIOUS SEDATION REPORT DATE OF SERVICE: January 31, 2018 BRIEF HISTORY OF PRESENT ILLNESS: Patient is a 72-year-old female who initially presented to the hospital on January 28 with increasing shortness of breath and cough. The patient has reported history of COPD and venous thromboembolic disease. Upon arrival to the emergency department, the patient was noted to be in atrial fibrillation with a rapid ventricular rate. She is currently anticoagulated with Coumadin. Her last surface echocardiogram revealed an ejection fraction of 65% with a right ventricular systolic pressure estimated to be 51 mmHg. The patient has never undergone previous cardioversion. The patient also has a history of chronic hypoxemic respiratory failure, for which she utilizes home supplemental oxygen. PHYSICAL EXAMINATION: VITAL SIGNS: Reviewed and were acceptable. GENERAL: The patient is an obese female, in no apparent distress, speaking in full sentences. HEENT: Normocephalic, atraumatic. Mucous membranes are moist and pink. Good mouth opening noted. Trachea is midline. Good neck mobility. MP III CHEST: S1, S2 irregularly irregular. No murmurs, rubs or gallops were noted. LUNGS: Diminished bilaterally without appreciable wheezes, rales or rhonchi. ABDOMEN: Soft, nontender, nondistended. Positive bowel sounds. EXTREMITIES: There is no clubbing or cyanosis present. LE edema is present. ASA Class: II DESCRIPTION OF PROCEDURE: After confirmation of informed consent, the patient's anesthesia plan was reviewed in detail. Propofol was chosen. Risks and benefits were reviewed and the patient agreed to proceed. At 0736, the patient was given her first bolus of propofol. In total, the patient required 50 mg of propofol to achieve an appropriate level of sedation. Following this, the patient was given a 200 J synchronized cardioversion by Dr. Henson at the bedside. This was unsuccessful in achieving normal sinus rhythm. Therefore, the patient was given a second 300 J synchronized cardioversion, which was successful in restoring normal sinus rhythm. The patient was monitored until 0746, at which time she reached her baseline mental status and function. The patient tolerated the procedure well. COMPLICATIONS: None ESTIMATED BLOOD LOSS: None RECOMMENDATIONS: Okay to recover in usual fashion. Code Visit 9xxxx: Other Procedure See Report - 53310
--- NOTE | 2018-01-31 07:55 | PN.CARD_ITS ---
Subjectve: Patient seen and evaluated Objective: Vital Signs Temp Pulse Resp BP Pulse Ox 97.8 F 63 16 103/59 L 97 01/31/18 07:20 01/31/18 07:45 01/31/18 07:45 01/31/18 07:45 01/31/18 07:45 Oxygen Flow Rate (L/min) 3 Oxygen Delivery Method Nasal Cannula Weight: 213 lb 10.047 oz Body Mass Index (BMI) 33.7 Intake and Output for Last 24 Hours 01/29/18 01/30/18 01/31/18 23:59 23:59 23:59 Intake Total 870 / 870 1160 / 1160 0 / 0 Output Total 750 / 750 1200 / 1200 Balance 120 / 120 -40 / -40 0 / 0 General: Awake, Alert, Oriented x 3 HEENT: PERRL, EOMI, Sclera Non Icteric Neck: Supple, Good ROM, No Lymph Node Enlargement Lungs: Clear to auscultation Cardiovascular: Irregular Rhythm, Normal S1, Normal S2, No Murmurs, No Rubs, No Gallops Vascular: No Carotid Bruits, Normal Femoral Pulses, Normal Radial Pulses, Normal Dorsalis Pedal Pulse, Normal Posterior Tibial Pulses Abdomen: Bowel Sounds Present, Soft, Non Tender, No HSM, No Organomegaly Extremities: No Cyanosis, No Clubbing, No edema Neurological: No Focal Motor or Sensory Deficit 01/30/18 06:37: PT 49.0 H, INR 5.3 H* 01/31/18 05:40: PT 34.3 H, INR 3.4 01/31/18 05:40: Sodium 145, Potassium 3.6, Chloride 97 L, Carbon Dioxide 45.0 H , Anion Gap 3 L, BUN 37 H, Creatinine 0.73, Est GFR (MDRD) Af Amer 101, Est GFR (MDRD) Non-Af 83, BUN/Creatinine Ratio 51.0 H, Glucose 75, Calcium 8.9, Magnesium 2.4 Rhythm: EKG: ECHO: Stress Test: Cardiac Cath: PCI: CT Surgery: Holter monitor: EPS: PPM: CXR: Chest CT Scan: Medical Necessity - Tobacco Use Smoking Status: Former smoker Assessment/Plan 1. Atrial fibrillation with rapid ventricular response rate She underwent DC cardioversion this morning successfully back to sinus rhythm. The plan would be to continue her on her anticoagulation as well as the beta- donna and calcium channel donna. 2. Hypertension * Blood pressure does not appear to be have been under good control and I would make some changes to the above with improvement. * 3. Diastolic dysfunction-congestive heart failure * She appears to have heart failure with preserved ejection fraction and I suspect the above was exacerbated by her elevated blood pressure as well as her atrial for ablation with a rapid ventricular response rate. * We will continue gentle diuresis. * This time there is no need to repeat her echocardiogram. * 4. Pulmonary hypertension * She appears to have pulmonary hypertension which is likely secondary to diastolic dysfunction. She will continue with the beta-donna as well as the diuretic at the current dose. * My overall recommendation would be anticoagulation keeping her INR between 2 and 3 and rate control for her atrial fibrillation. Hopefully she can be discharged later today if she is maintaining sinus rhythm. Thank you for allowing me to participate in the care of your patient. Please don't hesitate to call if any issues arise
--- NOTE | 2018-01-31 07:55 | PCM.OP.BLANK ---
Operative Report Date of Procedure: 01/31/18 DC cardioversion. 72-year-old lady with a history of preserved ejection fraction anticoagulated who presented with atrial fibrillation with rapid ventricular response rate. Informed consent was obtained for the procedure. After the patient was seen by Dr. Cates of the critical care division. He administered 50 mg of intravenous propofol. Anterior posterior pads were applied. 200 J of synchronized biphasic cardioversion energy were applied we did not result in cardioversion, it was then changed to 300 J of synchronized DC cardioversion with prompt reversal to sinus rhythm. Conclusion : Synchronized DC cardioversion to sinus rhythm successful.
[2018-01-31] MEDS: Polyethylene Glycol 3350 17 GM PACKET PO (09:10)
[2018-01-31] MEDS: Docusate Sodium 100 MG Capsule 200 MG PO (09:10)
[2018-01-31] MEDS: Amiodarone 200 MG Tablet PO (09:11)
[2018-01-31] MEDS: Citalopram 20 MG Tablet PO (09:11)
[2018-01-31] MEDS: Furosemide 40 MG Tablet PO (09:11)
--- NOTE | 2018-01-31 13:22 | PCM.DC ---
- Discharge Diagnoses Current Active Problems: Current Active and Chronic Problems (Last Reviewed 12/29/17 @ 15:36 by Freida Garcia) Atrial fibrillation with RVR (Acute) Acute respiratory failure (Acute) You will use the following diet at home:: Cardiac - Low-fat, low-salt, Other - Avoid caffeine, [id number] decongestants, diet pills -these can all cause atrial fibrillation Your food should be the consistency of: Regular Your liquids should be the consistency of: Regular/Thin Discharge Activity: Return to Normal Activity Call your doctor if you observe: Fever of 101 or Higher, Shortness of breath, Dizziness, Fainting spells, Chest pain Additional Instructions: You have been started on an antiarrhythmic medication called amiodarone, also noticed Cordarone. You will take this medication once daily to help keep your heart in a regular rhythm. There is a drug interaction with warfarin and your INR/bleeding time may increase. You may need to decrease the dose of Coumadin. I have given you a lab requisition to obtain a PT/INR on Monday and the results will be sent to Dr. Perez. Please call him on Monday to inquire if any dosage adjustment is necessary. Pending Tests on Discharge: None Allergies/Adverse Reactions: [facility] Adverse Reaction (Verified 01/28/18 02:13) ANKLE AND LEG EDEMA RESOLVED OFF MED-PER PCP PAPERWORK codeine Adverse Reaction (Verified 01/28/18 02:13) MENTAL STATUS CHANGE lisinopril Adverse Reaction (Verified 01/28/18 02:13) COUGH Medications to take at Discharge Albuterol Sulfate [Proair Hfa] 2 puff IH Q4H PRN PRN 07/19/15 Citalopram [Celexa] 20 mg PO BID 07/19/15 Ergocalciferol [Vitamin D] 50,000 unit PO TH 07/19/15 Warfarin [Coumadin] 5 mg PO SUTUWETHSA 07/19/15 Zolpidem Tartrate [Ambien] 10 mg PO QHS PRN 07/19/15 Ipratropium/Albuterol Sulfate [Duoneb] 3 ml INHALATION 4X/DAY 12/16/15 Furosemide 40 mg PO DAILY 01/28/18 Amiodarone HCl [Cordarone] 200 mg PO DAILY #30 tab 01/31/18 Atenolol [Tenormin (beta donna)] 50 mg PO BID #60 tab 01/31/18 Polyethylene Glycol 3350 [Miralax] 17 gm PO DAILY packet 01/31/18 The following prescriptions were given: Amiodarone HCl [Cordarone] 200 mg PO DAILY #30 tab Atenolol [Tenormin (beta donna)] 50 mg PO BID #60 tab Primary Care Physician: José Perez MD [Primary Care Provider] - Please follow up with your Primary Care Physician in: 5-7 days Test Results: Test results from this visit will be discussed in further detail at your follow-up appointment, if applicable. Please Follow Up With: Boris Henson MD When: 1 month Proposed Discharge Date: 01/31/18
--- NOTE | 2018-01-31 13:32 | DCINST_ITS ---
- Discharge Diagnoses Current Active Problems: Current Active and Chronic Problems (Last Reviewed 12/29/17 @ 15:36 by Freida Garcia) Atrial fibrillation with RVR (Acute) Acute respiratory failure (Acute) You will use the following diet at home:: Cardiac - Low-fat, low-salt, Other - Avoid caffeine, [id number] decongestants, diet pills -these can all cause atrial fibrillation Your food should be the consistency of: Regular Your liquids should be the consistency of: Regular/Thin Discharge Activity: Return to Normal Activity Call your doctor if you observe: Fever of 101 or Higher, Shortness of breath, Dizziness, Fainting spells, Chest pain Additional Instructions: You have been started on an antiarrhythmic medication called amiodarone, also noticed Cordarone. You will take this medication once daily to help keep your heart in a regular rhythm. There is a drug interaction with warfarin and your INR/bleeding time may increase. You may need to decrease the dose of Coumadin. I have given you a lab requisition to obtain a PT/INR on Monday and the results will be sent to Dr. Perez. Please call him on Monday to inquire if any dosage adjustment is necessary. Pending Tests on Discharge: None Allergies/Adverse Reactions: [facility] Adverse Reaction (Verified 01/28/18 02:13) ANKLE AND LEG EDEMA RESOLVED OFF MED-PER PCP PAPERWORK codeine Adverse Reaction (Verified 01/28/18 02:13) MENTAL STATUS CHANGE lisinopril Adverse Reaction (Verified 01/28/18 02:13) COUGH Medications to take at Discharge Albuterol Sulfate [Proair Hfa] 2 puff IH Q4H PRN PRN 07/19/15 Citalopram [Celexa] 20 mg PO BID 07/19/15 Ergocalciferol [Vitamin D] 50,000 unit PO TH 07/19/15 Warfarin [Coumadin] 5 mg PO SUTUWETHSA 07/19/15 Zolpidem Tartrate [Ambien] 10 mg PO QHS PRN 07/19/15 Ipratropium/Albuterol Sulfate [Duoneb] 3 ml INHALATION 4X/DAY 12/16/15 Furosemide 40 mg PO DAILY 01/28/18 Amiodarone HCl [Cordarone] 200 mg PO DAILY #30 tab 01/31/18 Atenolol [Tenormin (beta donna)] 50 mg PO BID #60 tab 01/31/18 Polyethylene Glycol 3350 [Miralax] 17 gm PO DAILY packet 01/31/18 The following prescriptions were given: Amiodarone HCl [Cordarone] 200 mg PO DAILY #30 tab Atenolol [Tenormin (beta donna)] 50 mg PO BID #60 tab Primary Care Physician: José Perez MD [Primary Care Provider] - Please follow up with your Primary Care Physician in: 5-7 days Test Results: Test results from this visit will be discussed in further detail at your follow- up appointment, if applicable. Please Follow Up With: Boris Henson MD When: 1 month Proposed Discharge Date: 01/31/18
--- NOTE | 2018-01-31 14:19 | DS.PCM_ITS ---
Discharge Date and Diagnosis Date of Admission: 01/28/18 Date of Discharge: 01/31/18 - Primary Discharge Diagnosis Active and Suspected Problems (Last Reviewed 12/29/17 @ 15:36 by Freida Garcia) Atrial fibrillation with RVR (Acute)-new-onset Metabolic alkalosis (Acute)-likely contraction alkalosis secondary to diuretics Acute diastolic congestive heart failure - Secondary Discharge Diagnosis Chronic Problems (Last Reviewed 12/29/17 @ 15:36 by Freida Garcia) Chronic anticoagulation (Chronic) with warfarin Chronic hypoxemic respiratory failure (Chronic) on home oxygen at 2 L/min Diastolic dysfunction (Chronic) Venous insufficiency (Chronic) Pulmonary HTN (Chronic) History of pulmonary embolus (PE) (Chronic) History of DVT (deep vein thrombosis) (Chronic) Essential hypertension (Chronic) Dyslipidemia (Chronic) COPD (chronic obstructive pulmonary disease) (Chronic) Hospital Course and Treatment Imaging Results: Clinical Impression(s) from Imaging Studies Chest X-Ray 01/28/18 02:15 IMPRESSION: Chronic interstitial lung changes without acute alveolar disease. Left basilar atelectasis. Electronically Signed: José Morris MD at 3:23 EDT Tel , Service support , Laboratory Results - last 24 hr 01/31/18 01/31/18 05:40 05:40 PT 34.3 H INR 3.4 Sodium 145 Potassium 3.6 Chloride 97 L Carbon Dioxide 45.0 H Anion Gap 3 L BUN 37 H Creatinine 0.73 Estim Creat Clear Calc 48.00 Est GFR (MDRD) Af Amer 101 Est GFR (MDRD) Non-Af 83 BUN/Creatinine Ratio 51.0 H Glucose 75 Calcium 8[address] [facility] Heart Group Operations: None Procedures: Cardioversion Summary of Care Provided: Mrs. Quinn is a 72 YO female with a PMH of venous insufficiency, pulmonary hypertension, chronic respiratory failure with hypoxemia, DVT with pulmonary emboli , hypertension, dyslipidemia, COPD and chronic anticoagulation with warfarin who presented to the emergency department at [facility] on 715 complaining of increasing shortness of breath associated with a cough which was productive. Vital signs at presentation to the emergency room were temperature 98.7, pulse rate 178, blood pressure 159/123, respiratory rate 29 and she was 97% saturated on 815 L nasal cannula. White blood cell count was elevated at 13.9 with 83% neutrophils. Hemoglobin was 11.6 and platelets were within normal limits. INR was therapeutic at 3.1. Serum bicarb was increased at 33 with a BUN of 15 and a creatinine of 0.64. BNP was increased at 370.7. Chest x-ray showed increased pulmonary vascular congestion. A recent ECHO showed a normal EF. She was given a Cardizem bolus in the emergency room and ultimately placed on a Cardizem infusion. She was admitted to a monitored bed on PCU. The Cardizem infusion was continued and she was started on Lasix. She was converted to oral cardizem and Atenolol was increased to 50 mg BID. Her rate became controlled at rest but, increased into the 140-170 range with even minimal exertion. Dr. Henson was consulted. Since she is chronically anticoagulated and the INR was therapeutic the decision was made to cardiovert. This was done at 0730 AM on 01/31/18. She converted to NSR and remained in NSR until late in the afternoon when she was discharged. She was started on Amiodarone 200 mg daily and Cardizem was discontinued. Atenolol was continued at the increased dose of 50 mg BID. She was instructed to follow-up with Dr. José Trevino in 5-7 days and will obtain a PT/INR on 02/05/2018 with the results to be sent to Dr. Perez. She may require adjustment in her Coumadin dosage since amiodarone potentiate Coumadin. She will follow up with Dr. Henson in the office in 1 month. General: alert, oriented X3, NAD, appropriate with normal affect Neck: supple, trachea midline, carotids have brisk upstroke and normal pulse volume, no JVD Lungs: rare scattered end expiratory wheeze, symmetric chest expansion, not tachypneic at rest, no conversational dyspnea at rest. No rales, very diminished BS's throughout Heart: Regular rate and rhythm, normal S1, normal S2, no murmur, no gallop, no rub, somewhat distant heart sounds Abdomen: soft, NT, ND, BS's present, obese Extremities: less pitting edema of both LE's, no calf tenderness, no cyanosis, GRETA hose are in place today Discharge Activity: Return to Normal Activity Call your doctor if you observe: Fever of 101 or Higher, Shortness of breath, Dizziness, Fainting spells, Chest pain Home Medications: Medications to take at Discharge Albuterol Sulfate [Proair Hfa] 2 puff IH Q4H PRN PRN 07/19/15 Citalopram [Celexa] 20 mg PO BID 07/19/15 Ergocalciferol [Vitamin D] 50,000 unit PO TH 07/19/15 Warfarin [Coumadin] 5 mg PO SUTUWETHSA 07/19/15 Zolpidem Tartrate [Ambien] 10 mg PO QHS PRN 07/19/15 Ipratropium/Albuterol Sulfate [Duoneb] 3 ml INHALATION 4X/DAY 12/16/15 Furosemide 40 mg PO DAILY 01/28/18 Amiodarone HCl [Cordarone] 200 mg PO DAILY #30 tab 01/31/18 Atenolol [Tenormin (beta donna)] 50 mg PO BID #60 tab 01/31/18 Polyethylene Glycol 3350 [Miralax] 17 gm PO DAILY packet 01/31/18 Following Prescrptions Were Given to Patient: Amiodarone HCl [Cordarone] 200 mg PO DAILY #30 tab Atenolol [Tenormin (beta donna)] 50 mg PO BID #60 tab Primary Care Physician: José Perez MD [Primary Care Provider] - Please follow up with your Primary Care Physician in: 5-7 days Please Follow Up With: Tor Jaffe MD When: 1 month Please Follow Up With: José Perez MD When: 5-7 Days Minutes spent on discharge:: 40 Patient Condition:: Good Medical Necessity - Tobacco Use Smoking Status: Former smoker Meaningful Use Info Meaningful Use Diagnoses (Choose all that apply): CHF - CHF CANDIE/ARB ordered at discharge?: No Reason CANDIE/ARB not ordered?: Allergy Documented LVEF (%): 65 Code Visit Inpatient E&M: 26912 Disch Hosp
--- NOTE | 2018-02-01 15:54 | CASEMGMT ---
MAGO DANIEL Discharge Follow-up Phone Call: MOOKIE: 12 Strata: 4 Call Date: 02/01/18 Discharge Date: 01/31/18 Time of Call: 1555 Duration: 3 min Admitting Diagnosis: Acute hypoxia respiratory failure, PAF RN MARÍA completed follow-up phone call after recent hospitalization. Patient thought it was odd that CM called and states she was not pleased with her stay, patient did not want to elaborate on details. Patient denied questions or concerns with discharge instructions. Patient states that she was able to fill prescriptions without any issues. Patient has follow up appt scheduled with PCP on 02/07/18.
== END 2018-01-31 14:20 | disposition home or self-care (01) | DRG 308 ==
LOC: ED 03:13 → PCU 03:31
PROVIDERS: Admitting Provider Internal Medicine; Emergency Provider Emergency Medicine; Family Provider Family Medicine; PCP Family Medicine; Visit Provider Internal Medicine
DX: I48.1 Persistent atrial fibrillation (principal); I50.33 Acute on chronic diastolic (congestive) heart failure; J96.21 Acute and chronic respiratory failure with hypoxia; Z99.81 Dependence on supplemental oxygen; Z79.01 Long term (current) use of anticoagulants; I27.20 Pulmonary hypertension, unspecified; Z86.711 Personal history of pulmonary embolism; Z86.718 Personal history of other venous thrombosis and embolism; E78.5 Hyperlipidemia, unspecified; Z66 Do not resuscitate; I87.2 Venous insufficiency (chronic) (peripheral); I11.0 Hypertensive heart disease with heart failure; J44.9 Chronic obstructive pulmonary disease, unspecified; Z87.891 Personal history of nicotine dependence
CPT/HCPCS: 36415; 71045; 80048; 80053; 80061; 83735; 83880; 84443; 84484; 85025; 85027; 85379; 85610; 87804; 93005; 94640; 94667; 94668; 97110; 97116; 97162; 97166; 97530; 97802; 99285; J7040; A4216; J1940

== ENCOUNTER 2018-03-08 17:57 | Inpatient (IN) | payer MEDICARE, SELFPAY ==
[2018-03-08] VITALS (8 sets, daily range): BP systolic 118–136; BP diastolic 70–75; PULSE 81–113; RESP 16–28; TEMP 36.9–37.1; O2SAT 92–96; BMI 34.0; BMI 33.9
--- NOTE | 2018-03-08 18:18 | ED.VISSUMM ---
- ER Visit Summary Date of Service: 03/08/18 Chief Complaint: Shortness of breath History of Present Illness: The patient is a [address] Henson and Dr. Perez. She has chronic shortness of breath that worsened 3 days ago. It is mild at rest. Is severe with exertion. States that she cannot even walk 30 feet without having to rest to catch her breath. She reports that she has a cough at night only. This is nonproductive. No fever or chills. Patient reports that she has had substernal chest tightness for the past 3 days that has been constant. Is 4 out of 10 severity. She has bilateral lower extremity edema that increase over the past 3 days as well. She is increased her Lasix from 40 mg once a day to 80 mg once a day without relief. In fact, she reports that yesterday after taking her Lasix she had no urine output. She does report that she is having dysuria with small volumes as well. Physical Examination: Vitals: 98.7, 118/73, 113, 27, 90% on 2 L nasal cannula which is her home O2. General: Well-nourished and well-developed. Head: Normocephalic atraumatic. Neck: Supple, no lymphadenopathy. No JVD. Nontender. Cardiovascular: Tachycardic irregular rhythm. No murmurs. Respiratory: No respiratory distress. Mild wheezing bilaterally with greatly decreased air movement. Abdominal: Soft, nontender, nondistended, normal bowel sounds. No guarding, rebound, or peritoneal signs. Back: Nontender. Extremities: Nontender, 3+ pitting edema over lower extremity bilaterally that extends to mid thigh. Skin: Normal color, no rash. Neurologic: Alert and oriented ?3. Cranial nerves II through XII are intact. Normal strength and sensation. Psych: Normal affect. Test Results: EKG is A. fib at [address] changes. This is a change from January when she was in sinus or. Troponin is negative. PT RESEARCH ANALYST is 205.5. UA has 510 white blood cells and rare bacteria. This was sent for culture. INR is 3.7. Chem-7 is more for potassium 3.4, CO2 of 40, glucose 111. CBC is marked for an H&H 10.0 34.7, 7 neutrophils 79, monocytes of 12. Chest x-ray shows prominent interstitial markings. Questionable 1.7 cm nodule in the right upper lobe. Emergency Department Course and Treatment: Patient had an IV placed. She is given dose of Solu-Medrol IV. She is given albuterol Atrovent aerosols. She was given a dose of Cardizem IV and is resting comfortably. Treatment Plan: Patient was discussed with Dr. Brown. She will be admitted to the hospital for further evaluation and treatment. Disposition: Admitted in improved condition. Impression: 1. Atrial fibrillation with RVR. 2. Coumadin coagulopathy. 3. COPD exacerbation. 4. Pulmonary hypertension. 5. Peripheral edema. 6. Critical care time 30 minutes. This note was generated with [employer] dictation software. It may contain incorrect words, spelling, and punctuation that were not noted in review of the chart prior to signing ED Disposition - Plan for ED Patient: Disposition: Acute Care Hospital [facility] Chief Complaint: Shortness of Breath
[2018-03-08 18:39] LABS: Absolute Lymphocyte Count 1.15 X10^3/ul (0.83-4.51); Absolute Neutrophil Count 7.3 X10^3/uL (2.0-7.7); Basophil# 0.02 X10^3/uL; Basophil% 0.2 % (0-1); Eosinophil# 0.19 X10^3/uL; Hematocrit 34.7 % (37-47); Lymphocyte # 1.15 X10^3/ul (4.0); Lymphocyte % 12.4 % (19-41); Mean Corp Hgb Conc 28.8 g/gl (32-36); Mean Corpuscular Hgb 26.2 pg (27.0-32.0); Mean Corpuscular Volume 91.1 fL (81-99); Mean Platelet Vol. 11.1 fl (6.2-12.0); Monocyte# 0.61 X10^3/uL; Monocyte% 6.6 % (0-10); Neutrophil # 7.31 X10^3/uL (2.7-7.7); Neutrophil % 78.7 % (47-70); Platelet Count 267 K/mm3 (150-450); RBC Distribution Width CV 14.8 % (11.6-14.6); RBC Distribution Width SD 49.8 fl (35.1-43.9); Red Blood Count 3.81 M/mm3 (4.2-5.4); White Blood Count 9.3 K/mm3 (4.4-11.0)
[2018-03-08 18:41] LABS: POSITIVE COUNT NO; POSITIVE DIFFERENTIAL NO; POSITIVE MORPHOLOGY NO
[2018-03-08] MEDS: Ipratropium/Albuterol Sulfate 3 ML AMPUL.NEB INHALATION ×2 (18:43→22:00)
[2018-03-08] MEDS: MethylPREDNISolone 125 MG/2 ML Vial IV (18:45)
[2018-03-08 18:52] LABS: Prothrombin Time (Protime)PT. 36.8 SECONDS (11.7-14.9)
[2018-03-08 18:55] LABS: Anion Gap 3 (5-15); BUN 15 mg/dL (7-18); BUN/Creat Ratio 23.8 RATIO (10-20); Calcium,Total 8.8 mg/dL (8.5-10.1); Chloride 98 mmol/L (98-107); Creatinine, Serum 0.63 mg/dL (0.55-1.02); EST Glomerular Filtration Rate 98 mL/min (>60); Est Glom Filt Rate - Afr Amer 119 mL/min (>60); Glucose 111 mg/dL (74-106); Potassium 3.4 mmol/L (3.5-5.1); Sodium Level 141 mmol/L (136-145)
--- NOTE | 2018-03-08 19:00 | ED.RN ---
inr 3.7 [address] lab. dr seo aware
[2018-03-08 19:01] LABS: International Normalized Ratio 3.7
[2018-03-08 19:10] LABS: BNP,B-Type NATRIURETIC PEPTIDE 205.5 pg/mL (0-100)
[2018-03-08 19:25] LABS: Red Blood Cells-Urine 0 SEEN /hpf (0-5)
[2018-03-08] MEDS: dilTIAZem 25 MG/5 ML Vial 20 MG IV BOLUS (19:32)
[2018-03-08 19:36] LABS: Color, Urine Yellow (Yellow); Glucose, Dipstick Normal (Normal); Ketone-Dipstick 5 mg/dl (Negative); Leukocyte Esterase-Dipstick 100 /ul (Negative); Nitrite-Dipstick Negative (Negative); Occult Blood-Urine 25 /ul (Negative); Protein-Dipstick 30 mg/dl (Negative); Urine Clarity Cloudy (Clear); Urine Urobilinogen 4 mg/dl (Normal)
[2018-03-08 19:39] LABS: Urine Bilirubin Dipstick 1 mg/dL (Negative)
[2018-03-08 19:42] LABS: Hyaline Cast 0-5 SEEN /lpf (0-5); Mucous, Urine 2+ /hpf (<or=2+)
[2018-03-08 19:43] LABS: Calcium Oxalate Crystals Ur 2+ /hpf (<or=2+)
[2018-03-08 19:44] LABS: Squamous Epithelial Cells - UA 0-5 SEEN /hpf (5-10); Transitional Epithelial - Ur 0-5 SEEN /hpf (0-5); White Blood Cells 5-10 SEEN /hpf (0-5)
[2018-03-08 19:45] LABS: Bacteria RARE /hpf (None Seen)
--- NOTE | 2018-03-08 20:14 | PCM.HP.STD ---
Problem List (1) Heart failure with preserved ejection fraction Status: Acute History of Present Illness Date of Admission: 03/08/18 Chief Complaint: shortness of breath. The patient is a 72 year old F CHF as well as COPD presents with acute worsening of her shortness of breath. Over the past several days patient's having increasing dyspnea on exertion where he is walking several steps causes her to be short of breath. Patient was put on oxygen in the emergency room and was noted be tachypneic as well as tachycardic. Patient was treated with Solu-Medrol aerosols. Patient did have tachycardia in the 1 teens and did receive 20 mg of IV diltiazem. Patient was in atrial fibrillation with RVR but subsequently has had a heart rate in the 80s. Patient is coughing is nonproductive. Patient has chronic orthopnea and sits at an angle anyway so is been no acute worsening of that. Patient notes increased lower extremity edema since her last hospitalization last month. Patient thinks that she has put on weight but is unclear how much. Symptoms are similar to prior heart failure exacerbations. [] Past Medical History Past Medical History (Chronic Problems): Chronic Problems (Last Updated 01/31/18 @ 13:28 by Paul Junior DO) Chronic anticoagulation (Chronic) Chronic hypoxemic respiratory failure (Chronic) Diastolic dysfunction (Chronic) Venous insufficiency (Chronic) Pulmonary HTN (Chronic) History of pulmonary embolus (PE) (Chronic) History of DVT (deep vein thrombosis) (Chronic) Essential hypertension (Chronic) Dyslipidemia (Chronic) COPD (chronic obstructive pulmonary disease) (Chronic) Medical History: Medical History (Last Updated 03/08/18 @ 20:18 by Bonifacio Conway DO) Dyslipidemia (Chronic) E78.5 COPD (chronic obstructive pulmonary disease) (Chronic) J44.9 Atrial fibrillation I48.91 Heart failure with preserved ejection fraction I50.30 Group 2. EF 65% 12/05/17 COPD exacerbation J44.1 Essential hypertension I10 History of DVT (deep vein thrombosis) Z86.718 History of pulmonary embolus (PE) Z86.711 Pulmonary HTN I27.20 Venous insufficiency I87.2 Hypokalemia (Resolved) E87.6 Metabolic alkalosis with respiratory acidosis (Resolved) E87.4 Allergies amlodipine besylate [From [employer] Adverse Reaction (Verified 03/08/18 17:57) ANKLE AND LEG EDEMA RESOLVED OFF MED-PER PCP PAPERWORK codeine Adverse Reaction (Verified 03/08/18 17:57) MENTAL STATUS CHANGE lisinopril Adverse Reaction (Verified 03/08/18 17:57) COUGH Home Medications: Ambulatory Orders Medication Instructions Recorded Citalopram [Celexa] 20 mg PO BID 07/19/15 Ergocalciferol [Vitamin D] 50,000 unit PO TH 07/19/15 Warfarin [Coumadin] 5 mg PO SUMOTUTHFRSA 07/19/15 Zolpidem Tartrate [Ambien] 10 mg PO QHS PRN 07/19/15 Ipratropium/Albuterol Sulfate 3 ml INHALATION 4X/DAY 12/16/15 [Duoneb] Furosemide 40 mg PO DAILY 01/28/18 Amiodarone HCl [Cordarone] 200 mg PO DAILY #30 tab 01/31/18 Albuterol Sulfate [Proair Hfa] 1 - 2 puff IH PRN PRN 03/08/18 Atenolol [Tenormin (beta donna)] 50 mg PO BID 03/08/18 Warfarin Sodium [Warfarin Sodium] 2.5 mg PO WE 03/08/18 Surgical History: Surgical History (Last Reviewed 03/08/18 @ 20:18 by Bonifacio Conway DO) History of cholecystectomy Z90.49 History of total hysterectomy Z90.710 tailbone surgery Psychiatric History: Depression TELEMEDICINE PHYSICIAN History: No pertinent TELEMEDICINE PHYSICIAN history Smoking Status: Former smoker Tobacco Use: Cigarettes Alcohol: None Drugs: None - *Family History Maternal Family History: Family History (Last Reviewed 03/08/18 @ 20:19 by Bonifacio Conway DO) Sister Heart disease History Items: No pertinent history Paternal Family History: Family History (Last Reviewed 03/08/18 @ 20:19 by Bonifacio Conway DO) Sister Heart disease History Items: No pertinent history Review of Systems Constitutional: Denies: Anorexia, Chills, Fever, Night Sweats Eyes: Denies: Blurred vision, Double vision HEENT: Reports: Nasal Congestion. Denies: Head Aches, Sinus Congestion, Sinus Drainage Cardiovascular: Reports: Edema, Orthopnea. Denies: Chest Pain, Palpitations Respiratory: Reports: Cough, Shortness of breath upon exertion. Denies: Shortness of breath at rest Gastrointestinal: Denies: Abdominal Pain, Nausea, Vomiting Genitourinary: Denies: Dysuria Musculoskeletal: Denies: Joint Pain, Joint Tenderness Skin: Denies: Rash, Wounds Neurological: Denies: Numbness, Tingling, Focal weakness Psychiatric: Denies: Anxiety, Depression Hematologic/ Lymphatic: Reports: Hx of blood clot. Denies: Easy Bruising, Easy Bleeding Comment: All review of systems are negative except as mentioned in the history of present illness and the other review of systems. VTE Information - Inpt Only VTE Present on Admission: No VTE Mechan Device Prophylaxis: None VTE Pharm Prophylaxis ordered?: Yes Patient Problems: Active and Suspected Problems (Last Updated 01/31/18 @ 13:28 by Paul Junior DO) Heart failure with preserved ejection fraction (Acute) - Physical Exam General: Alert, Cooperative, No apparent distress, Well developed, Well nourished HEENT: Atraumatic, Normocephalic, - - No icterus Oral: Moist Mucosa, No Gingival or Mucosal Lesions/ Ulcerations Neck: No Nodes, Thyroid Normal Size and Texture, - - Redundant tissue on the patient's neck and therefore unable to appreciate any JVD. Lungs: Diminished, - - Bibasilar crackles. No wheezes. Cardiovascular: Normal S1, Normal S2, - - Diminished heart sounds. Abdomen: Bowel Sounds Present, Soft, Non Tender, Non-Distended, No Hepato-splenomegaly, Obese Extremities: No Calf Tenderness, Edema - Bilateral taut lower extremity edema. Skin: No rashes, No breakdown Musculoskeletal: No Tenderness to Palpation of Joints or Extremities, No Muscle Wasting Neurological: Neuro grossly intact, Muscle tone normal, Sensory exam intact to light touch and pain Psych/Mental Status: Normal Affect, Appropriate Vital Signs Temp Pulse Resp BP Pulse Ox 37.1 C 85 28 H 120/74 94 03/08/18 17:58 03/08/18 19:49 03/08/18 19:49 03/08/18 19:49 03/08/18 19:49 Oxygen Flow Rate (L/min) 2 Oxygen Delivery Method Nasal Cannula Weight: 98.5 kg Body Mass Index (BMI) 34.0 Laboratory Tests Past 24 Hrs 03/08/18 03/08/18 03/08/18 18:30 18:30 18:30 WBC 9.3 RBC 3.81 L Hgb 10.0 L Hct 34.7 L MCV 91.1 MCH 26.2 L MCHC 28.8 L RDW 14.8 H RDW Differential 49.8 H Plt Count 267 MPV 11.1 Immature Gran % (Auto) 0.100 Neut % (Auto) 78.7 H Lymph % (Auto) 12.4 L [place] % (Auto) 6.6 Eos % (Auto) 2.0 Baso % (Auto) 0.2 Absolute Neuts (auto) 7.3 Absolute Lymphs (auto) 1.15 Total Counted Not Reportable PT INR Sodium 141 Potassium 3.4 L Chloride 98 Carbon Dioxide 40.0 H Anion Gap 3 L BUN 15 Creatinine 0.63 Estim Creat Clear Calc 48.00 Est GFR (MDRD) Af Amer 119 Est GFR (MDRD) Non-Af 98 BUN/Creatinine Ratio 23.8 H Glucose 111 H Calcium 8.8 Troponin I < 0.015 B-Natriuretic Peptide 205.5 H Urine Color Urine Clarity Urine pH Ur Specific [place] Urine Protein Urine Glucose (UA) Urine Ketones Urine Occult Blood Urine Nitrite Urine Bilirubin Urine Urobilinogen Ur Leukocyte Esterase Urine RBC Urine WBC Ur Squamous Epith Cells Ur Transition Epith Cell Calcium Oxalate Crystal Urine Bacteria Hyaline Casts Urine Mucus 03/08/18 03/08/18 18:30 19:21 WBC RBC Hgb Hct MCV MCH MCHC RDW RDW Differential Plt Count MPV Immature Gran % (Auto) Neut % (Auto) Lymph % (Auto) [place] % (Auto) Eos % (Auto) Baso % (Auto) Absolute Neuts (auto) Absolute Lymphs (auto) Total Counted PT 36.8 H INR 3.7 H* Sodium Potassium Chloride Carbon Dioxide Anion Gap BUN Creatinine Estim Creat Clear Calc Est GFR (MDRD) Af Amer Est GFR (MDRD) Non-Af BUN/Creatinine Ratio Glucose Calcium Troponin I B-Natriuretic Peptide Urine Color Yellow Urine Clarity Cloudy Urine pH 6.0 Ur Specific [place] 1.020 Urine Protein 30 H Urine Glucose (UA) Normal Urine Ketones 5 H Urine Occult Blood 25 H Urine Nitrite Negative Urine Bilirubin 1 H Urine Urobilinogen 4 H Ur Leukocyte Esterase 100 H Urine RBC 0 SEEN Urine WBC 5-10 SEEN Ur Squamous Epith Cells 0-5 SEEN Ur Transition Epith Cell 0-5 SEEN Calcium Oxalate Crystal 2+ Urine Bacteria RARE Hyaline Casts 0-5 SEEN Urine Mucus 2+ EKG personally reviewed and showed atrial fibrillation, rate controlled. Chest x-ray personally reviewed and showed no infiltrates. Some subtle pulmonary edema Assessment/Plan All Active Problems (Last Updated 01/31/18 @ 13:28 by Paul Junior DO) Heart failure with preserved ejection fraction (Acute) Metabolic alkalosis (Acute) Metabolic alkalosis (Acute) Atrial fibrillation with RVR (Acute) Acute respiratory failure (Ruled-out) COPD exacerbation (Acute) Hypokalemia (Resolved) Metabolic alkalosis with respiratory acidosis (Resolved) 1. Acute heart failure with preserved ejection fraction Extraction of 65% from echocardiogram on 12/05/2017 Patient's weight has gone up since January, when she was most recently admitted. Current weight, though there may be some variation based on the current scale is at 98.5 kg, and her weight on January 31 was 96.9 kg. Patient's Lasix will on her home dosing of 40 mg daily will be stopped and patient be on 40 mg twice daily Will continue with patient's atenolol that she was already on Not on an CANDIE inhibitor due to cough Daily weights Strict I's and O's Fluid restriction of 1500 cc per day 2. Coagulopathy INR 3.7 Hold Coumadin for now No need for reversal agents at this time Follow-up INR and resume Coumadin when deemed appropriate 3. COPD I do not feel that her symptoms are regulated with an exacerbation of her COPD but certainly complicate her respiratory status Patient may have as needed albuterol 4. Atrial fibrillation Patient did have a low-grade RVR and received 20 mg of IV diltiazem Per that may be reactive given her dyspnea on exertion Will just continue with the patient's atenolol and monitor 5. Venous thromboembolic disease Patient is on Coumadin and I will continue with Coumadin 6. DVT prophylaxis: Patient is already anticoagulated 7. Advanced care planning: Discussed DNR, intubation and PEG tube with the patient. Patient states that she does not want CPR nor to be intubated in the event of cardiac arrest and a respiratory arrest respectively. She is unsure of a PEG tube in the event of stroke causing dysphasia at this time. Therefore, patient is DNR Comfort Care arrest, no intubation. Patient made aware that her decision to become DNR Comfort Care arrest no intubation can certainly be changed at a later point. Patient's daughter was in the room and seemed surprised that the patient requesting this CODE STATUS. I encouraged them to discuss further and to notify us of any changes. Code Visit Inpatient E&M: 72693 Init Hosp L3
--- NOTE | 2018-03-08 20:19 | NURSING ---
Called [facility] ED charge nurse, johnathan to send patient to the floor.
[2018-03-08] MEDS: Citalopram 20 MG Tablet PO (21:20)
[2018-03-08] MEDS: Atenolol 50 MG Tablet PO (21:20)
[2018-03-08] MEDS: Zolpidem Tartrate 5 MG Tablet 10 MG PO (22:34)
[2018-03-09] VITALS (15 sets, daily range): BP systolic 101–114; BP diastolic 55–75; PULSE 78–110; RESP 16–22; TEMP 36.4–36.7; O2SAT 94–99
--- NOTE | 2018-03-09 06:17 | NURSING ---
All documentation completed by Kaitlynn Ospina RN reviewed by this RN. This RN agrees with all documentation from 03/08/18-03/09/18.
[2018-03-09] MEDS: Ipratropium/Albuterol Sulfate 3 ML AMPUL.NEB INHALATION ×4 (07:16→19:16)
[2018-03-09 07:18] LABS: Prothrombin Time (Protime)PT. 35.7 SECONDS (11.7-14.9)
[2018-03-09 07:30] LABS: Anion Gap 5 (5-15); BUN 15 mg/dL (7-18); BUN/Creat Ratio 17.5 RATIO (10-20); Calcium,Total 8.8 mg/dL (8.5-10.1); Chloride 98 mmol/L (98-107); Creatinine, Serum 0.86 mg/dL (0.55-1.02); EST Glomerular Filtration Rate 69 mL/min (>60); Est Glom Filt Rate - Afr Amer 83 mL/min (>60); Estimated Creatinine Clearance 55.81 ml/min; Glucose 148 mg/dL (74-106); International Normalized Ratio 3.5; Potassium 4.4 mmol/L (3.5-5.1); Sodium Level 141 mmol/L (136-145)
--- NOTE | 2018-03-09 07:52 | PCM.PN.HOSP ---
Patient Problems: Active and Suspected Problems (Last Updated 03/08/18 @ 20:18 by Bonifacio Conway DO) Heart failure with preserved ejection fraction (Acute) Subjective: Patient seen and examined. Feels slightly improved. Denies chest pain, SOB Telemetry shows NSR, tachycardia interspersing with A. fib with RVR Vitals/I&O's: Vital Signs Temp Pulse Resp BP Pulse Ox 97.8 F 79 20 H 110/69 97 03/09/18 02:50 03/09/18 07:17 03/09/18 07:17 03/09/18 02:50 03/09/18 07:17 Oxygen Flow Rate (L/min) 2 Oxygen Delivery Method Nasal Cannula Weight: 98.2 kg Body Mass Index (BMI) 33.9 Intake and Output for Last 24 Hours 03/07/18 03/08/18 03/09/18 23:59 23:59 23:59 Intake Total 120 / 120 Balance 120 / 120 General: Alert, Oriented x3, Cooperative, No apparent distress HEENT: Atraumatic, PERRLA, EOMI, Normocephalic Oral: Moist Mucosa Neck: Supple Lungs: Diminished - distant breath ound in bilateral lower lung zones Cardiovascular: Normal S1, Normal S2, No murmurs, Irregular Rate, Tachycardic Abdomen: Bowel Sounds Present, Soft, Non Tender, Non-Distended, No Hepato-splenomegaly Extremities: Edema - +2 bilaterally, nonpitting Skin: No rashes, No breakdown Musculoskeletal: No Tenderness to Palpation of Joints or Extremities Lymphatic: No Cervical, Supraclavicular, or Inguinal Adenopathy Neurological: Cranial nerves II-XII grossly intact, Neuro grossly intact Psych/Mental Status: Normal Affect, Appropriate Laboratory Results 03/09/18 06:40: Sodium 141, Potassium 4.4, Chloride 98, Carbon Dioxide 38.0 H, Anion Gap 5, BUN 15, Creatinine 0.86, Estim Creat Clear Calc 55.81, Est GFR (MDRD) Af Amer 83, Est GFR (MDRD) Non-Af 69, BUN/Creatinine Ratio 17.5, Glucose 148 H, Calcium 8.8 03/09/18 06:40: PT 35.7 H, INR 3.5 H* Current Medications Acetaminophen (Tylenol) 650 mg PO Q6H PRN PRN PRN Reason: Mild Pain (1-3)/Temp > 100.7 F Albuterol Sulfate (Ventolin Aerosols) 2.5 mg INHALATION Q2H PRN PRN PRN Reason: SHORTNESS OF BREATH Albuterol/Ipratropium (Duoneb) 3 ml INHALATION 4X/DAY [facility] Last Admin: 03/09/18 07:16 Dose: 3 ml Amiodarone HCl (Cordarone) 200 mg PO DAILY [facility] Atenolol (Tenormin (Beta [place])) 50 mg PO BID [facility] Last Admin: 03/08/18 21:20 Dose: 50 mg Citalopram Hydrobromide (Celexa) 20 mg PO BID [facility] Last Admin: 03/08/18 21:20 Dose: 20 mg Ergocalciferol (Vitamin D) 50,000 unit PO TH [facility] Last Admin: 03/08/18 21:20 Dose: 50,000 unit Furosemide (Lasix) 40 mg IV BIDLX [facility] Magnesium Hydroxide (Milk Of Magnesia) 30 ml PO DAILY PRN PRN Reason: Constipation Nutritional Formula (Lactose Free) (Ensure Enlive) 120 ml PO 4X/DAY [facility] Ondansetron HCl (Zofran) 4 mg IV Q8H PRN PRN PRN Reason: NAUSEA Potassium Chloride (K-Dur) 40 meq PO DAILYCM [facility] Sodium Chloride () 5 - 30 ml IV UD PRN PRN Reason: SALINE FLUSH Zolpidem Tartrate (Ambien (Generic)) 10 mg PO QHS PRN PRN Reason: SLEEP Last Admin: 03/08/18 22:34 Dose: 10 mg Medical Necessity - Tobacco Use Smoking Status: Former smoker Tobacco Use: Cigarettes Assessment/Plan All Active Problems (Last Updated 03/08/18 @ 20:18 by Bonifacio Conway DO) Atrial fibrillation with RVR (Acute) Acute respiratory failure (Ruled-out) Metabolic alkalosis (Acute) Metabolic alkalosis (Acute) Heart failure with preserved ejection fraction (Acute) Hypokalemia (Resolved) Metabolic alkalosis with respiratory acidosis (Resolved) 1. Acute on chronic heart failure with preserved ejection fraction, EF 65%, continue on Lasix 40mg IV BID, fluid restriction 2. Supratherapeutic INR, INR 3.5, will continue to hold coumadin 3. COPD, not in acute excerbation, continue on prn breathing treatments 4. Atrial fibrillation with RVR, telemetry shows patient going in and out of A. fib, on atenolol, amiodarone, will increase amiodarone to 200mg po bid. INR is supratherapeutic. 5. History of Venous thromboembolic disease, coumadin 6. DVT prophylaxis - INR is supratherapeutic Code Visit Inpatient E&M: 39961 Subs Hosp L2
[2018-03-09] MEDS: Amiodarone 200 MG Tablet PO ×2 (08:11→21:09)
[2018-03-09] MEDS: Citalopram 20 MG Tablet PO ×2 (08:11→21:09)
[2018-03-09] MEDS: Atenolol 50 MG Tablet PO ×2 (10:12→21:09)
[2018-03-09] MEDS: Furosemide 40 MG/4 ML Vial IV ×2 (10:12→17:04)
--- NOTE | 2018-03-09 14:13 | NURSING ---
This RN taking over care at this time
--- NOTE | 2018-03-09 15:30 | CASEMGMT ---
RN CM Assessment completed. See Link. DC PLAN: home with [facility] -Discussed dc planning @ length with pt. Recommended Home Health RNdavid as pt states she has difficulty with bathing, relies on daughter if needs to leave home. Ambulted 10 feet. Has home oxygen through [employer]. -Call to Freida Jarquin [facility]. referral made, they can take pt on dc. Green Sheet on chart. -If dc'd over weekend, call correctional officer captain nurse to notify of dc and fax dc instructions to office @ ext [phone]. Jordan DELGADILLON RN ACM
[2018-03-09] MEDS: 0.9% NaCl Peripheral Flush Adult/Peds IV (17:04)
[2018-03-09] MEDS: Zolpidem Tartrate 5 MG Tablet 10 MG PO (21:08)
[2018-03-10] VITALS (16 sets, daily range): BP systolic 117–156; BP diastolic 70–94; PULSE 76–138; RESP 18–20; TEMP 36.2–36.8; O2SAT 94–98
[2018-03-10 06:10] LABS: Prothrombin Time (Protime)PT. 31.2 SECONDS (11.7-14.9)
[2018-03-10 06:24] LABS: Anion Gap 8 (5-15); BUN 22 mg/dL (7-18); Chloride 97 mmol/L (98-107); Creatinine, Serum 0.67 mg/dL (0.55-1.02); EST Glomerular Filtration Rate 92 mL/min (>60); Est Glom Filt Rate - Afr Amer 111 mL/min (>60); Glucose 90 mg/dL (74-106); Potassium 3.5 mmol/L (3.5-5.1); Sodium Level 144 mmol/L (136-145)
[2018-03-10] MEDS: Ipratropium/Albuterol Sulfate 3 ML AMPUL.NEB INHALATION ×5 (07:15→22:39)
[2018-03-10] MEDS: Amiodarone 200 MG Tablet PO ×2 (08:34→20:57)
[2018-03-10] MEDS: Citalopram 20 MG Tablet PO ×2 (08:34→20:57)
[2018-03-10] MEDS: Furosemide 40 MG/4 ML Vial IV ×3 (08:35→19:54)
[2018-03-10] MEDS: Atenolol 50 MG Tablet PO ×2 (08:35→20:57)
[2018-03-10] MEDS: 0.9% NaCl Peripheral Flush Adult/Peds IV ×4 (08:35→20:58)
--- NOTE | 2018-03-10 10:22 | PCM.PN.HOSP ---
Patient Problems: Active and Suspected Problems (Last Updated 03/08/18 @ 20:18 by Bonifacio Conway DO) Heart failure with preserved ejection fraction (Acute) Subjective: Patient was seen and examined. Complains of feeling SOB with exertion and at rest. Denies chest pain, dizziness. Leg swelling is marginally improved. Telemetry shows NSR Objective: General: Alert, Oriented x3, Cooperative, No apparent distress, on 2L oxygen HEENT: Atraumatic, PERRLA, EOMI, Normocephalic Oral: Moist Mucosa Neck: Supple Lungs: Diminished - distant breath sound in bilateral lower lung zones, audible wheezes Cardiovascular: Normal S1, Normal S2, No murmurs, Irregular Rate, Tachycardic Abdomen: Bowel Sounds Present, Soft, Non Tender, Non-Distended, No Hepato-splenomegaly Extremities: Edema - +2 bilaterally, nonpitting Skin: No rashes, No breakdown Musculoskeletal: No Tenderness to Palpation of Joints or Extremities Lymphatic: No Cervical, Supraclavicular, or Inguinal Adenopathy Neurological: Cranial nerves II-XII grossly intact, Neuro grossly intact Psych/Mental Status: Normal Affect, Appropriate Vitals/I&O's: Vital Signs Temp Pulse Resp BP Pulse Ox 98.3 F 94 20 H 130/94 H 94 03/10/18 09:00 03/10/18 09:00 03/10/18 09:00 03/10/18 09:00 03/10/18 09:00 Oxygen Flow Rate (L/min) 2 Oxygen Delivery Method Nasal Cannula Weight: 97.5 kg Body Mass Index (BMI) 33.9 Intake and Output for Last 24 Hours 03/08/18 03/09/18 03/10/18 23:59 23:59 23:59 Intake Total 120 / 120 1070 / 1070 100 / 100 Output Total 2500 / 2500 300 / 300 Balance 120 / 120 -1430 / -1430 -200 / -200 Laboratory Results 03/10/18 05:35: PT 31.2 H, INR 3.0 03/10/18 05:35: Sodium 144, Potassium 3.5, Chloride 97 L, Carbon Dioxide 39.0 H, Anion Gap 8, BUN 22 H, Creatinine 0.67, Estim Creat Clear Calc 48.00, Est GFR (MDRD) Af Amer 111, Est GFR (MDRD) Non-Af 92, BUN/Creatinine Ratio 33.0 H, Glucose 90, Calcium 9.0 Current Medications Acetaminophen (Tylenol) 650 mg PO Q6H PRN PRN PRN Reason: Mild Pain (1-3)/Temp > 100.7 F Albuterol Sulfate (Ventolin Aerosols) 2.5 mg INHALATION Q2H PRN PRN PRN Reason: SHORTNESS OF BREATH Albuterol/Ipratropium (Duoneb) 3 ml INHALATION 4X/DAY.[facility] Amiodarone HCl (Cordarone) 200 mg PO BID [facility] Last Admin: 03/10/18 08:34 Dose: 200 mg Atenolol (Tenormin (Beta [place])) 50 mg PO BID [facility] Last Admin: 03/10/18 08:35 Dose: 50 mg Citalopram Hydrobromide (Celexa) 20 mg PO BID [facility] Last Admin: 03/10/18 08:34 Dose: 20 mg Ergocalciferol (Vitamin D) 50,000 unit PO TH [facility] Last Admin: 03/08/18 21:20 Dose: 50,000 unit Furosemide (Lasix) 40 mg IV TID [facility] Magnesium Hydroxide (Milk Of Magnesia) 30 ml PO DAILY PRN PRN Reason: Constipation Methylprednisolone (Solu-Medrol) 40 mg IV Q8 [facility] Nutritional Formula (Lactose Free) (Ensure Enlive) 120 ml PO 4X/DAY [facility] Last Admin: 03/10/18 08:34 Dose: Not Given Ondansetron HCl (Zofran) 4 mg IV Q8H PRN PRN PRN Reason: NAUSEA Potassium Chloride (K-Dur) 40 meq PO DAILYCM [facility] Last Admin: 03/10/18 08:34 Dose: 40 meq Sodium Chloride () 5 - 30 ml IV UD PRN PRN Reason: SALINE FLUSH Last Admin: 03/10/18 08:35 Dose: 10 ml Zolpidem Tartrate (Ambien (Generic)) 10 mg PO QHS PRN PRN Reason: SLEEP Last Admin: 03/09/18 21:08 Dose: 10 mg Medical Necessity - Tobacco Use Smoking Status: Former smoker Tobacco Use: Cigarettes Assessment/Plan All Active Problems (Last Updated 03/08/18 @ 20:18 by Bonifacio Conway DO) Atrial fibrillation with RVR (Acute) Acute respiratory failure (Ruled-out) Metabolic alkalosis (Acute) Metabolic alkalosis (Acute) Heart failure with preserved ejection fraction (Acute) Hypokalemia (Resolved) Metabolic alkalosis with respiratory acidosis (Resolved) 1. Acute on chronic heart failure with preserved ejection fraction, EF 65%, slowly improving, increase Lasix 40mg IV TID, fluid restriction, daily weights, 2. Acute COPD exacerbation, mild, on breathing treatments, will start IV solumedrol 40mg q8 3. Supratherapeutic INR, resolved, INR 3.0, will resume home coumadin at 2.5mg daily 4. PAF, admitted in atrial fibrillation with RVR, s/p recent cardioversion, back in NSR. On amiodarone 200mg po bid, atenolol, on coumadin, INR is therapeutic. 5. History of Venous thromboembolic disease, on coumadin, INR is therapeutic. 6. DVT prophylaxis - INR is therapeutic 7. Disposition: Possible DC in am if improved. Code Visit Inpatient E&M: 05551 Subs Hosp L2
[2018-03-10] MEDS: Magnesium Hydroxide 30 ML UDC PO (10:57)
[2018-03-10] MEDS: Zolpidem Tartrate 5 MG Tablet 10 MG PO (22:33)
[2018-03-11] VITALS (7 sets, daily range): BP systolic 135–141; BP diastolic 79–97; PULSE 78–98; RESP 18–20; TEMP 36.4–36.7; O2SAT 94–96
[2018-03-11] MEDS: Furosemide 40 MG/4 ML Vial IV (05:46)
[2018-03-11] MEDS: 0.9% NaCl Peripheral Flush Adult/Peds IV (05:46)
[2018-03-11 07:05] LABS: Prothrombin Time (Protime)PT. 23.1 SECONDS (11.7-14.9)
[2018-03-11] MEDS: Ipratropium/Albuterol Sulfate 3 ML AMPUL.NEB INHALATION ×2 (07:10→11:22)
[2018-03-11 07:30] LABS: Anion Gap 9 (5-15); BUN 26 mg/dL (7-18); BUN/Creat Ratio 26.9 RATIO (10-20); Calcium,Total 9.2 mg/dL (8.5-10.1); Chloride 92 mmol/L (98-107); Creatinine, Serum 0.97 mg/dL (0.55-1.02); EST Glomerular Filtration Rate 60 mL/min (>60); Est Glom Filt Rate - Afr Amer 73 mL/min (>60); Estimated Creatinine Clearance 49.48 ml/min; Glucose 154 mg/dL (74-106); Potassium 4.1 mmol/L (3.5-5.1); Sodium Level 141 mmol/L (136-145)
[2018-03-11] MEDS: Citalopram 20 MG Tablet PO (08:29)
[2018-03-11] MEDS: Atenolol 50 MG Tablet PO (08:29)
[2018-03-11] MEDS: Amiodarone 200 MG Tablet PO (08:29)
--- NOTE | 2018-03-11 10:37 | DCINST_ITS ---
- Discharge Diagnoses Current Active Problems: Current Active and Chronic Problems (Last Updated 03/08/18 @ 20:18 by Bonifacio Conway DO) Heart failure with preserved ejection fraction (Acute) Reason(s) for Visit for Discharge Instructions: A fib with RVR, Acute CHF exacerbation, Acute COPD exacerbation You will use the following diet at home:: Cardiac Your food should be the consistency of: Regular Your liquids should be the consistency of: Regular/Thin Discharge Activity: Return to Normal Activity Additional Instructions: Take all your medications as prescribed. Follow-up with your PCP in 1-2 weeks. Weigh yourself daily. Maintain a low salt, low fat diet. Restrict your fluids to 1500mls a day. Use your inhaler at least 4 times/day. Follow-up with cardiology in 2-4 weeks. You will need blood work done in 3 days with your PCP. Allergies/Adverse Reactions: Allergies amlodipine besylate [From [facility]] Adverse Reaction (Verified 03/08/18 17:57) ANKLE AND LEG EDEMA RESOLVED OFF MED-PER PCP PAPERWORK codeine Adverse Reaction (Verified 03/08/18 17:57) MENTAL STATUS CHANGE lisinopril Adverse Reaction (Verified 03/08/18 17:57) COUGH Medications to take at Discharge Citalopram [Celexa] 20 mg PO BID 07/19/15 Ergocalciferol [Vitamin D] 50,000 unit PO TH 07/19/15 Warfarin [Coumadin] 5 mg PO SUMOTUTHFRSA 07/19/15 Zolpidem Tartrate [Ambien] 10 mg PO QHS PRN 07/19/15 Ipratropium/Albuterol Sulfate [Duoneb] 3 ml INHALATION 4X/DAY 12/16/15 Albuterol Sulfate [Proair Hfa] 1 - 2 puff IH PRN PRN 03/08/18 Atenolol [Tenormin (beta donna)] 50 mg PO BID 03/08/18 Warfarin Sodium 2.5 mg PO WE 03/08/18 Amiodarone HCl [Cordarone] 200 mg PO BID #60 tab 03/11/18 Bisacodyl [Dulcolax] 5 mg PO DAILY PRN #30 tab 03/11/18 Furosemide 40 mg PO BID #60 tab 03/11/18 Potassium Chloride [K-Dur] 20 meq PO DAILYCM #30 tab 03/11/18 Prednisone 40 mg PO DAILY #10 tab 03/11/18 The following prescriptions were given: Bisacodyl [Dulcolax] 5 mg PO DAILY PRN #30 tab PRN Reason: Constipation Potassium Chloride [K-Dur] 20 meq PO DAILYCM #30 tab Prednisone 40 mg PO DAILY #10 tab Amiodarone HCl [Cordarone] 200 mg PO BID #60 tab Furosemide 40 mg PO BID #60 tab Orders to be completed after discharge: Basic Metabolic Profile (BMP) Location: Laboratory Prothrombin Time w/INR Time Frame: 3 Days, Location: Laboratory Primary Care Physician: José Perez MD [Primary Care Provider] - Test Results: Test results from this visit will be discussed in further detail at your follow- up appointment, if applicable. Please Follow Up With: José Perez MD When: within 1 week of discharge Proposed Discharge Date: 03/11/18
--- NOTE | 2018-03-11 11:04 | PCM.DC.SUM ---
Discharge Date and Diagnosis Date of Admission: 03/08/18 Date of Discharge: 03/11/18 - Primary Discharge Diagnosis Active and Suspected Problems (Last Updated 03/08/18 @ 20:18 by Bonifacio Conway DO) Heart failure with preserved ejection fraction (Acute) chronic diastolic CHF Acute COPD exacerbation, mild A. fib with RVR Supratherapeutic INR - Secondary Discharge Diagnosis Chronic Problems (Last Updated 03/08/18 @ 20:18 by Bonifacio Conway DO) Diastolic dysfunction (Chronic) Chronic hypoxemic respiratory failure (Chronic) Chronic anticoagulation (Chronic) Dyslipidemia (Chronic) COPD (chronic obstructive pulmonary disease) (Chronic) Hospital Course and Treatment Imaging Results: Clinical Impression(s) from Imaging Studies Chest X-Ray 03/08/18 18:17 IMPRESSION: Indeterminant 1.7 cm nodular opacity within the right upper lung, may be secondary to a confluence of shadows, consider PA and lateral or chest CT for further evaluation for cannot exclude an underlying pulmonary nodule. Electronically Signed: Debbie Swain MD at 18:49 EDT Tel , Service support , None Operations: None Summary of Care Provided: The patient is a 72 year old F with past medical history of paroxysmal atrial fibrillation, status post cardioversion 1 month ago, chronic diastolic heart failure, history of VTE on coumadin, COPD, on chronic 2 L home oxygen who comes in with complaints of shortness shortness of breath and found to have acute on chronic heart failure, A. fib with RVR. Patient was on amiodarone and atenolol as well as Coumadin for A. fib. This was continued. Amiodarone later increased to 200 mg p.o. twice daily, patient spontaneously converted to normal sinus rhythm and maintained in it. She was also started on IV Lasix. Lasix doses were changed with adequate diuresis. Patient lost about 4 kg water weight during this admission. She was also treated for mild acute COPD exacerbation with IV Solu-Medrol and breathing treatment. Her INR was supratherapeutic on admission, her Coumadin was held, INR slowly dropped down to 2.0. Which was discharged to resume on home Coumadin. Discharge Diet: Low fat/ Low Cholesterol, 6 Cup Fluid Restriction, 2000 mg Sodium Diet Discharge Activity: Return to Normal Activity Home Medications: Medications to take at Discharge Citalopram [Celexa] 20 mg PO BID 07/19/15 Ergocalciferol [Vitamin D] 50,000 unit PO TH 07/19/15 Warfarin [Coumadin] 5 mg PO SUMOTUTHFRSA 07/19/15 Zolpidem Tartrate [Ambien] 10 mg PO QHS PRN 07/19/15 Ipratropium/Albuterol Sulfate [Duoneb] 3 ml INHALATION 4X/DAY 12/16/15 Albuterol Sulfate [Proair Hfa] 1 - 2 puff IH PRN PRN 03/08/18 Atenolol [Tenormin (beta donna)] 50 mg PO BID 03/08/18 Warfarin Sodium 2.5 mg PO WE 03/08/18 Amiodarone HCl [Cordarone] 200 mg PO BID #60 tab 03/11/18 Bisacodyl [Dulcolax] 5 mg PO DAILY PRN #30 tab 03/11/18 Furosemide 40 mg PO BID #60 tab 03/11/18 Potassium Chloride [K-Dur] 20 meq PO DAILYCM #30 tab 03/11/18 Prednisone 40 mg PO DAILY #10 tab 03/11/18 Following Prescrptions Were Given to Patient: Bisacodyl [Dulcolax] 5 mg PO DAILY PRN #30 tab PRN Reason: Constipation Potassium Chloride [K-Dur] 20 meq PO DAILYCM #30 tab Prednisone 40 mg PO DAILY #10 tab Amiodarone HCl [Cordarone] 200 mg PO BID #60 tab Furosemide 40 mg PO BID #60 tab Other Amb Orders: Basic Metabolic Profile (BMP) Location: Laboratory Primary Care Physician: José Perez MD [Primary Care Provider] - Please Follow Up With: José Perez MD When: within 1 week of discharge Disposition: Home with Home Health Minutes spent on discharge:: 40 Patient Condition:: Stable Medical Necessity - Tobacco Use Smoking Status: Former smoker Tobacco Use: Cigarettes Meaningful Use Info Meaningful Use Diagnoses (Choose all that apply): CHF - CHF CANDIE/ARB ordered at discharge?: Yes Documented LVEF (%): 65 Code Visit Inpatient E&M: 20876 Disch Hosp
--- NOTE | 2018-03-13 11:49 | CASEMGMT ---
RNCM DC F/U PHONE CALL. DC Date: 03/11/18 DC Disposition: Home with [facility] Intro role of CM to patient via home phone. Discussed Dc instructions, meds. No questions per pt, aware of f/u appt w/Dr. Perez. Pt states [facility] RN will be coming tomorrow to see her. No concerns noted. MAGO DANIEL thanked her for using [facility]. Yessica DELGADILLON RN ACM
== END 2018-03-11 12:55 | disposition home health service (06) | DRG 292 ==
LOC: ED 19:20 → PCU 20:18
PROVIDERS: Emergency Provider Emergency Medicine; Family Provider Family Medicine; PCP Family Medicine; Visit Provider Internal Medicine
DX: I11.0 Hypertensive heart disease with heart failure (principal); J44.1 Chronic obstructive pulmonary disease with (acute) exacerbation; J96.11 Chronic respiratory failure with hypoxia; I50.33 Acute on chronic diastolic (congestive) heart failure; Z66 Do not resuscitate; Z87.891 Personal history of nicotine dependence; R79.1 Abnormal coagulation profile; Z79.01 Long term (current) use of anticoagulants; Z86.718 Personal history of other venous thrombosis and embolism; E87.6 Hypokalemia; I48.0 Paroxysmal atrial fibrillation; E78.5 Hyperlipidemia, unspecified; Z99.81 Dependence on supplemental oxygen
CPT/HCPCS: 36415; 71045; 80048; 81001; 83880; 84484; 85025; 85610; 87077; 87086; 87088; 87186; 93005; 94640; 97110; 97116; 97162; 97166; 97535; 97802; 99283; A4216; J1940

== ENCOUNTER 2018-03-14 14:49 | Outpatient (RCR) | payer MEDICARE, SELFPAY ==
[2018-03-14 15:23] LABS: Anion Gap 6 (5-15); BUN 23 mg/dL (7-18); BUN/Creat Ratio 28.6 RATIO (10-20); Calcium,Total 8.8 mg/dL (8.5-10.1); Chloride 93 mmol/L (98-107); EST Glomerular Filtration Rate 74 mL/min (>60); Est Glom Filt Rate - Afr Amer 90 mL/min (>60); Glucose 130 mg/dL (74-106); Potassium 3.2 mmol/L (3.5-5.1); Sodium Level 139 mmol/L (136-145)
== END 2018-03-16 23:59 ==
LOC: HHLAB 14:49
PROVIDERS: Family Provider Family Medicine; PCP Family Medicine; Visit Provider Internal Medicine
DX: I50.9 Heart failure, unspecified (principal)
CPT/HCPCS: 80048

== ENCOUNTER 2018-03-27 13:39 | Outpatient (RCR) | payer MEDICARE, SELFPAY ==
[2018-03-27 14:10] LABS: Mean Corp Hgb Conc 28.6 g/gl (32-36); Mean Corpuscular Hgb 25.8 pg (27.0-32.0); Mean Corpuscular Volume 90.2 fL (81-99); Mean Platelet Vol. 12.2 fl (6.2-12.0); Platelet Count 271 K/mm3 (150-450); RBC Distribution Width CV 15.7 % (11.6-14.6); RBC Distribution Width SD 51.4 fl (35.1-43.9); Red Blood Count 3.88 M/mm3 (4.2-5.4); White Blood Count 11.9 K/mm3 (4.4-11.0)
[2018-03-27 14:16] LABS: Scan Indicated on CBC? Y/N NO
[2018-03-27 14:30] LABS: Anion Gap 10 (5-15); BUN 14 mg/dL (7-18); BUN/Creat Ratio 19.4 RATIO (10-20); Calcium,Total 8.7 mg/dL (8.5-10.1); Chloride 89 mmol/L (98-107); Creatinine, Serum 0.72 mg/dL (0.55-1.02); EST Glomerular Filtration Rate 84 mL/min (>60); Est Glom Filt Rate - Afr Amer 101 mL/min (>60); Glucose 132 mg/dL (74-106); Sodium Level 141 mmol/L (136-145)
== END 2018-04-15 23:59 ==
LOC: HHLAB 13:39
PROVIDERS: Family Provider Family Medicine; PCP Family Medicine; Visit Provider Internal Medicine
DX: J44.9 Chronic obstructive pulmonary disease, unspecified (principal); I11.0 Hypertensive heart disease with heart failure; I50.32 Chronic diastolic (congestive) heart failure
CPT/HCPCS: 80048; 85027

== ENCOUNTER 2018-04-02 17:59 | Inpatient (IN) | payer MEDICARE, SELFPAY ==
[2018-04-02] VITALS (10 sets, daily range): BP systolic 98–127; BP diastolic 61–91; PULSE 71–89; RESP 12–32; TEMP 36.6–36.7; O2SAT 72–98; BMI 29.4
--- NOTE | 2018-04-02 18:16 | EKG12_ITS ---
Test Reason : ALT LOC Blood Pressure : / mmHG Vent. Rate : 077 BPM Atrial Rate : 258 BPM P-R Int : 000 ms QRS Dur : 074 ms QT Int : 534 ms P-R-T Axes : 000 033 078 degrees QTc Int : 604 ms Atrial fibrillation Low voltage QRS Nonspecific ST and T wave abnormality Prolonged QT Abnormal ECG Confirmed by MADISON BHAT, URSULA ([id number]), book or script editor BANG URBINA ([id number]) on 04/04/2018 2:19:14 PM Referred By: Magalis Santos Confirmed By:URSULA WALLACE MD
--- NOTE | 2018-04-02 18:16 | CT_ITS ---
STUDY: CT BRAIN WITHOUT CONTRAST REASON FOR EXAM: Female, 72 years old. Loss of consciousness. Fall 3 days ago. RADIATION DOSAGE (If Supplied By Facility): CTDIvol = ( 44.99 ) mGy, DLP = ( 779.24 ) mGycm TECHNIQUE: Transaxial CT imaging of the brain was performed without administration of intravenous contrast material. Individualized dose optimization techniques were used for this CT. COMPARISON: None. FINDINGS: Normal soft tissue structures. Normal calvarium. Normal size ventricles and extra-axial spaces for the patient's age. Normal white matter tracts of the cerebral hemispheres. Normal basal ganglia and thalami. Normal brainstem. Normal cerebellum. There is no intracranial hemorrhage. There are no findings of an acute ischemic infarction. Normal visualized paranasal sinuses. CT/Brain/Head without Contrast IMPRESSION: No acute intracranial process. Electronically Signed: Debbie Swain MD at 19:17 EDT Tel , Service support ,
--- NOTE | 2018-04-02 18:25 | RAD_ITS ---
STUDY: X-RAY CHEST REASON FOR EXAM: Female, 72 years old. Altered loss of consciousness. TECHNIQUE: Single frontal view of the chest. COMPARISON: March 08, 2018 FINDINGS: There is no new focal consolidation. Normal size heart. Normal mediastinum and betty. Normal visualized pulmonary arteries. Normal visualized aortic arch and descending thoracic aorta. Normal visualized thoracic spine. Normal visualized ribs, clavicles, and shoulders. There is no demonstrated abnormality of the visualized soft tissue structures of the upper abdomen. RAD/Chest 1 View (Portable) IMPRESSION: No acute cardiopulmonary process. Electronically Signed: Debbie Swain MD at 19:12 EDT Tel , Service support ,
--- NOTE | 2018-04-02 18:50 | ED.VISSUMM ---
- ER Visit Summary Date of Service: 04/02/18 Chief Complaint: Confusion History of Present Illness: The patient is a [address] Perez. She is on Coumadin for PE/DVT. Family reports that she fell yesterday. She did not have any injuries. However she has had increasing confusion since that time. Patient reports that the home health nurse told her that she had a fever last week. Patient reports that she has a cough at night. It is chronic and unchanged. She denies any chest pain or shortness of breath. She denies any abdominal pain, nausea, vomiting, diarrhea, melena or hematochezia. She does have generalized weakness. Physical Examination: Vitals: 97.9, 112/79, 82, 30, 97% on 4 L nasal cannula. General: Well-nourished and well-developed. Head: Normocephalic atraumatic. Neck: Supple, no lymphadenopathy. No JVD. Nontender. Cardiovascular: Regular rate and rhythm. No murmurs. Respiratory: No respiratory distress. Clear to auscultation bilaterally. Very poor air movement. Abdominal: Soft, nontender, nondistended, normal bowel sounds. No guarding, rebound, or peritoneal signs. Back: Nontender. Extremities: Nontender, 3+ pitting edema to her lower extremities bilaterally. Skin: Normal color, no rash. Neurologic: Lethargic, but arouses to voice. Moves all extremities well. Psych: Normal affect. Test Results: EKG is A. fib at 77 with nonspecific changes. ABG shows a pH of 7.42 with a CO2 of 80.3 and a bicarb of 52.1. Her CO2 December 04, 2017 was 48.1. CBC is remarkable for a white count of 13.5, H&H of 10.3 and 34.7, 7 neutrophils 83, lymphs lites of 8. Chem-7 marked potassium 3.1, chloride of 89, CO2 42, glucose 121, BUN of 21. Lactic acid is 1.0. LFTs marked for a total bili of 1.1, albumin 2.3, globulin 4.9, direct bili 0.45. INR is 2.3. Urine is contaminated. Troponin is negative. CPK is normal. Chest x-ray shows chronic changes. CT brain shows no acute disease. Emergency Department Course and Treatment: Patient was given albuterol and Atrovent aerosols. She was placed on BiPAP. Patient is becoming more alert. A repeat ABG was obtained. Her PCO2 remains 81.3. Less than a month ago when she was able to discuss this the patient had wanted to be DNR Comfort Care arrest without intubation or CPR. Patient is much more awake after obtaining this second ABG. She is refusing BiPAP. I did discuss with her that she will likely have worsening CO2 retention and tonight. She understands this and still does not want BiPAP. She is also adamant that she is a DNR Comfort Care arrest. She does not want intubation. The daughter is at bedside and very upset about this. I asked her specifically if she was the power of health care attorney and she is not. The patient does not have a healthcare power of health care attorney. Treatment Plan: Patient was discussed with Dr. Brown. She will be admitted to the hospital for further evaluation and treatment. I discussed the patient's refusal for BiPAP and DNR Comfort Care arrest status with Dr. Selby. Disposition: Admitted in improved condition. Impression: 1. Hypercapnia. 2. Acute on chronic respiratory failure. 3. Critical care time 30 minutes. This note was generated with [employer] dictation software. It may contain incorrect words, spelling, and punctuation that were not noted in review of the chart prior to signing ED Disposition - Plan for ED Patient: Chief Complaint: Alt LOC
[2018-04-02 19:03] LABS: Absolute Lymphocyte Count 1.04 X10^3/ul (0.83-4.51); Absolute Neutrophil Count 11.2 X10^3/uL (2.0-7.7); Basophil# 0.02 X10^3/uL; Basophil% 0.1 % (0-1); Eosinophil# 0.13 X10^3/uL; Hematocrit 34.7 % (37-47); Hemoglobin 10.3 g/dl (12.0-15.0); Lymphocyte # 1.04 X10^3/ul (4.0); Lymphocyte % 7.7 % (19-41); Mean Corp Hgb Conc 29.7 g/gl (32-36); Mean Corpuscular Hgb 26.7 pg (27.0-32.0); Mean Corpuscular Volume 89.9 fL (81-99); Monocyte# 1.04 X10^3/uL; Monocyte% 7.7 % (0-10); Neutrophil # 11.19 X10^3/uL (2.7-7.7); Neutrophil % 83.2 % (47-70); Platelet Count 435 K/mm3 (150-450); RBC Distribution Width CV 15.4 % (11.6-14.6); RBC Distribution Width SD 50.3 fl (35.1-43.9); Red Blood Count 3.86 M/mm3 (4.2-5.4); White Blood Count 13.5 K/mm3 (4.4-11.0)
[2018-04-02 19:04] LABS: POSITIVE COUNT NO; POSITIVE DIFFERENTIAL NO; POSITIVE MORPHOLOGY NO
[2018-04-02 19:10] LABS: International Normalized Ratio 2.3; Prothrombin Time (Protime)PT. 25.3 SECONDS (11.7-14.9)
[2018-04-02 19:16] LABS: AST(SGOT) 27 U/L (15-37); Alanine Aminotransfer ALT/SGPT 36 U/L (13-56); Albumin, Serum 2.3 g/dL (3.2-5.0); Alkaline Phosphatase 97 U/L (45-117); Anion Gap 5 (5-15); BUN 21 mg/dL (7-18); BUN/Creat Ratio 30.7 RATIO (10-20); Bilirubin, Direct 0.45 mg/dL (0.00-0.30); Calcium,Total 8.8 mg/dL (8.5-10.1); Chloride 89 mmol/L (98-107); Creatinine, Serum 0.68 mg/dL (0.55-1.02); EST Glomerular Filtration Rate 89 mL/min (>60); Est Glom Filt Rate - Afr Amer 108 mL/min (>60); Globulin 4.9 g/dL (2.2-4.2); Glucose 121 mg/dL (74-106); Potassium 3.1 mmol/L (3.5-5.1); Protein, Total 7.2 g/dL (6.4-8.2); Sodium Level 136 mmol/L (136-145)
[2018-04-02 20:16] LABS: Color, Urine Amber (Yellow); Glucose, Dipstick Normal (Normal); Ketone-Dipstick 5 mg/dl (Negative); Leukocyte Esterase-Dipstick 25 /ul (Negative); Nitrite-Dipstick Negative (Negative); Occult Blood-Urine 50 /ul (Negative); Protein-Dipstick 30 mg/dl (Negative); Specific Gravity, Urine 1.025 (1.002-1.030); Urine Clarity Clear (Clear); Urine Urobilinogen 8 mg/dl (Normal)
[2018-04-02 20:25] LABS: CPK Total, Creatine Kinase 45 U/L (26-192)
[2018-04-02 20:27] LABS: Urine Bilirubin Dipstick 3 mg/dL (Negative)
--- NOTE | 2018-04-02 20:30 | PCM.HP.STD ---
Problem List (1) Chronic a-fib Status: Acute (2) Altered mental status Status: Acute (3) Fall Status: Acute (4) Acute on chronic respiratory failure with hypercapnia Status: Acute (5) Diastolic dysfunction Status: Chronic (6) Chronic hypoxemic respiratory failure Status: Chronic (7) Chronic anticoagulation Status: Chronic (8) Metabolic alkalosis Status: Acute (9) Metabolic alkalosis Status: Acute (10) Heart failure with preserved ejection fraction Status: Acute (11) Dyslipidemia Status: Chronic (12) COPD (chronic obstructive pulmonary disease) Status: Chronic Qualifiers: COPD type: unspecified COPD Qualified Code(s): J44.9 - Chronic obstructive pulmonary disease, unspecified History of Present Illness Date of Admission: 04/02/18 Chief Complaint: Altered mental status/ confusion The patient is a 72 year old F with history of COPD, congestive heart failure, chronic A. fib on Coumadin with recurrent admission for COPD exacerbation and respiratory failure, last admission in February 2018 came to ER with increasing confusion, lethargy and shallow breathing. Patient is on BiPAP. As per the daughter's near the bedside, Ms. Sagastume and Ms. Bonilla she fell on last Monday but there was no any major injury. Currently, patient is on BiPAP and lethargic so history is mainly from her daughter's medical record. [] She also had fever last week as per the home health nurse, documented in ED note. Her daughters mention she has increased frequency and urgency but patient could not tell about burning micturition. Chest x-ray does not show acute change. EKG shows chronic A. fib. ABG shows CO2 80, pH 7.42. Her last pH shows 7.52/48 in November 2017. Chest x-ray did not show acute abnormality. UA shows WBC 25-50 cells, RBC 10-25 with 2+ bacteria. Past Medical History Past Medical History (Chronic Problems): Chronic Problems (Last Updated 03/08/18 @ 20:18 by Bonifacio Conway DO) Diastolic dysfunction (Chronic) Chronic hypoxemic respiratory failure (Chronic) Chronic anticoagulation (Chronic) Dyslipidemia (Chronic) COPD (chronic obstructive pulmonary disease) (Chronic) Medical History: Medical History (Last Updated 03/08/18 @ 20:18 by Bonifacio Conway DO) Dyslipidemia (Chronic) E78.5 COPD (chronic obstructive pulmonary disease) (Chronic) J44.9 Atrial fibrillation I48.91 COPD exacerbation J44.1 Heart failure with preserved ejection fraction I50.30 Group 2. EF 65% 18 Essential hypertension I10 History of DVT (deep vein thrombosis) Z86.718 History of pulmonary embolus (PE) Z86.711 Pulmonary HTN I27.20 Venous insufficiency I87.2 Hypokalemia (Resolved) E87.6 Metabolic alkalosis with respiratory acidosis (Resolved) E87.4 Allergies amlodipine besylate [From [facility]] Adverse Reaction (Verified 03/08/18 17:57) ANKLE AND LEG EDEMA RESOLVED OFF MED-PER PCP PAPERWORK codeine Adverse Reaction (Verified 03/08/18 17:57) MENTAL STATUS CHANGE lisinopril Adverse Reaction (Verified 03/08/18 17:57) COUGH Home Medications: Ambulatory Orders Medication Instructions Recorded Citalopram [Celexa] 20 mg PO BID 07/19/15 Ergocalciferol [Vitamin D] 50,000 unit PO TH 07/19/15 Warfarin [Coumadin] 5 mg PO SUMOTUTHFRSA 07/19/15 Zolpidem Tartrate [Ambien] 10 mg PO QHS PRN 07/19/15 Ipratropium/Albuterol Sulfate 3 ml INHALATION 4X/DAY 12/16/15 [Duoneb] Albuterol Sulfate [Proair Hfa] 1 - 2 puff IH PRN PRN 03/08/18 Atenolol [Tenormin (beta donna)] 50 mg PO BID 03/08/18 Warfarin Sodium 2.5 mg PO WE 03/08/18 Amiodarone HCl [Cordarone] 200 mg PO BID #60 tab 03/11/18 Bisacodyl [Dulcolax] 5 mg PO DAILY PRN #30 tab 03/11/18 Furosemide 40 mg PO BID #60 tab 03/11/18 Potassium Chloride [K-Dur] 20 meq PO DAILYCM #30 tab 03/11/18 Prednisone 40 mg PO DAILY #10 tab 03/11/18 Surgical History: Surgical History (Last Reviewed 03/08/18 @ 20:18 by Bonifacio Conway DO) History of cholecystectomy Z90.49 History of total hysterectomy Z90.710 tailbone surgery Psychiatric History: Depression 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 Smoking Status: Former smoker - *Family History Maternal Family History: Family History (Last Reviewed 03/08/18 @ 20:19 by Bonifacio Conway DO) Sister Heart disease History Items: No pertinent history Paternal Family History: Family History (Last Reviewed 03/08/18 @ 20:19 by Bonifacio Conway DO) Sister Heart disease History Items: No pertinent history Review of Systems Unable to obtain accurate/complete ROS d/t: Patient is lethargic and on BiPAP VTE Information - Inpt Only VTE Present on Admission: No VTE Mechan Device Prophylaxis: None VTE Pharm Prophylaxis ordered?: No Reason prophylaxis not ordered:: Procedure Not Indicated - On Coumadin INR therapeutic Patient Problems: Active and Suspected Problems (Last Updated 03/08/18 @ 20:18 by Bonifacio Conway DO) Chronic a-fib (Acute) Altered mental status (Acute) Fall (Acute) Acute on chronic respiratory failure with hypercapnia (Acute) - Physical Exam General: Confused, Disoriented, Lethargic HEENT: Atraumatic, PERRLA, EOMI, Normocephalic Oral: Dry Mucosa Neck: Supple, No JVD, Negative Carotid Bruits Lungs: Diminished, Short of Breath, - - On BiPAP. Cardiovascular: Regular rate, Normal S1, Normal S2, No murmurs Abdomen: Bowel Sounds Present, Soft, Non Tender, No Hepato-splenomegaly Extremities: Capillary Refill Less than 3 Seconds, Edema Skin: No rashes, No breakdown Musculoskeletal: No Tenderness to Palpation of Joints or Extremities, Arthritic Changes, Muscle Wasting Neurological: Cranial nerves II-XII grossly intact, - Vital Signs Temp Pulse Resp BP Pulse Ox 97.9 F 74 20 H 116/78 97 04/02/18 18:00 04/02/18 19:26 04/02/18 19:26 04/02/18 19:26 04/02/18 19:26 Oxygen Flow Rate (L/min) 2 Oxygen Delivery Method Nasal Cannula Weight: 188 lb Body Mass Index (BMI) 29.4 Laboratory Tests Past 24 Hrs 04/02/18 04/02/18 04/02/18 18:45 18:45 18:45 WBC 13.5 H RBC 3.86 L Hgb 10.3 L Hct 34.7 L MCV 89.9 MCH 26.7 L MCHC 29.7 L RDW 15.4 H RDW Differential 50.3 H Plt Count 435 MPV 12.0 Immature Gran % (Auto) 0.300 Neut % (Auto) 83.2 H Lymph % (Auto) 7.7 L [place] % (Auto) 7.7 Eos % (Auto) 1.0 Baso % (Auto) 0.1 Absolute Neuts (auto) 11.2 H Absolute Lymphs (auto) 1.04 Total Counted Not Reportable PT INR Sodium 136 Potassium 3.1 L Chloride 89 L Carbon Dioxide 42.0 H Anion Gap 5 BUN 21 H Creatinine 0.68 Estim Creat Clear Calc 48.00 Est GFR (MDRD) Af Amer 108 Est GFR (MDRD) Non-Af 89 BUN/Creatinine Ratio 30.7 H Glucose 121 H Lactic Acid 1.0 Calcium 8.8 Total Bilirubin 1.10 H Direct Bilirubin 0.45 H AST 27 ALT 36 Alkaline Phosphatase 97 Total Creatine Kinase Troponin I < 0.015 Total Protein 7.2 Albumin 2.3 L Globulin 4.9 H Urine Color Urine Clarity Urine pH Ur Specific [place] Urine Protein Urine Glucose (UA) Urine Ketones Urine Occult Blood Urine Nitrite Urine Bilirubin Urine Urobilinogen Ur Leukocyte Esterase Urine RBC Urine WBC Ur Squamous Epith Cells Urine Bacteria Urine Mucus 04/02/18 04/02/18 04/02/18 18:45 18:45 19:20 WBC RBC Hgb Hct MCV MCH MCHC RDW RDW Differential Plt Count MPV Immature Gran % (Auto) Neut % (Auto) Lymph % (Auto) [place] % (Auto) Eos % (Auto) Baso % (Auto) Absolute Neuts (auto) Absolute Lymphs (auto) Total Counted PT 25.3 H INR 2.3 Sodium Potassium Chloride Carbon Dioxide Anion Gap BUN Creatinine Estim Creat Clear Calc Est GFR (MDRD) Af Amer Est GFR (MDRD) Non-Af BUN/Creatinine Ratio Glucose Lactic Acid Calcium Total Bilirubin Direct Bilirubin AST ALT Alkaline Phosphatase Total Creatine Kinase 45 Troponin I Total Protein Albumin Globulin Urine Color Mar Urine Clarity Clear Urine pH 5.0 Ur Specific [place] 1.025 Urine Protein 30 H Urine Glucose (UA) Normal Urine Ketones 5 H Urine Occult Blood 50 H Urine Nitrite Negative Urine Bilirubin 3 H Urine Urobilinogen 8 H Ur Leukocyte Esterase 25 H Urine RBC Pending Urine WBC Pending Ur Squamous Epith Cells Pending Urine Bacteria Pending Urine Mucus Pending Assessment/Plan All Active Problems (Last Updated 03/08/18 @ 20:18 by Bonifacio Conway DO) Atrial fibrillation with RVR (Acute) Metabolic alkalosis (Acute) Metabolic alkalosis (Acute) Heart failure with preserved ejection fraction (Acute) Chronic a-fib (Acute) Altered mental status (Acute) Fall (Acute) Acute on chronic respiratory failure with hypercapnia (Acute) Hypokalemia (Resolved) Metabolic alkalosis with respiratory acidosis (Resolved) The patient is a 72 year old F with history of COPD, congestive heart failure, chronic A. fib on Coumadin with recurrent admission for COPD exacerbation and respiratory failure, last admission in February 2018 came to ER with increasing confusion, lethargy and shallow breathing. Patient is on BiPAP. As per the daughter's near the bedside, Ms. Sagastume and Ms. Bonilla she fell on last Monday but there was no any major injury. Currently, patient is on BiPAP and lethargic so history is mainly from her daughter's medical record. [] She also had fever last week as per the home health nurse, documented in ED note. Her daughters mention she has increased frequency and urgency but patient could not tell about burning micturition. Chest x-ray does not show acute change. EKG shows chronic A. fib. ABG shows CO2 80, pH 7.42. Her last pH shows 7.52/48 in November 2017. Chest x-ray did not show acute abnormality. UA shows WBC 25-50 cells, RBC 10-25 with 2+ bacteria. 1. Acute encephalopathy most likely metabolic secondary to CO2 narcosis: Patient is being admitted in ICU on BiPAP. Repeat ABG after 2 hours. Currently ABG shows pH 7.4 compensated on PCO2 80. 2. Acute on chronic combined hypoxic and hypercarbic respiratory failure secondary to COPD exacerbation and currently decreased mentation: Consult air conditioning insulation installer Dr. Mcnair. Bronchodilator and IV Solu-Medrol. Chest physiotherapy. Respiratory panel ordered. On IV Zithromax. 3. Chronic diastolic heart failure: BNP ordered. Chest x-ray does shows normal visualized betty. Blood pressure was low in ER but currently 116/78. Patient can resume Lasix 20 mg twice daily from tomorrow. 4. Paroxysmal A. fib on Coumadin: INR therapeutic. 5. Other comorbidities include dyslipidemia, diffuse degenerative joint disease, low functional capacity: DVT prophylaxis: On Coumadin INR therapeutic. Advance CARE planning: As per the last H&P by Dr. Rogers, patient states he did not want CPR or intubation in the event of cardiac arrest or respiratory arrest. As per documentation. DNR CC arrest with no intubation. This was told to her daughters who wanted full code. The patient is on BiPAP currently lethargic and therefore can be confirmed with the patient later on when she is awake. Code Visit Inpatient E&M: 05566 Init Hosp L3
[2018-04-02 20:33] LABS: White Blood Cells 25-50 SEEN /hpf (0-5)
[2018-04-02 20:35] LABS: Bacteria 2+ /hpf (None Seen); Mucous, Urine 3+ /hpf (<or=2+); Red Blood Cells-Urine 10-25 SEEN /hpf (0-5); Squamous Epithelial Cells - UA 10-25 SEEN /hpf (5-10)
[2018-04-02 20:36] LABS: Hyaline Cast 0-5 SEEN /lpf (0-5)
--- NOTE | 2018-04-02 22:42 | ED.RN ---
0 attempted to call report to icu,staff unable to at this time.pt's family updated,empathy given.
--- NOTE | 2018-04-02 23:13 | ED.RN ---
ATTEMPTED TO CALL REPORT TO ICU AT THIS TIME. UNABLE TO TAKE REPORT AT THIS TIME DUE TO ROOM BEING DIRT, THEY WILL CALL BACK WHEN ROOM IS CLEAN AT THIS TIME
--- NOTE | 2018-04-02 23:20 | NURSING ---
Called to ED, notified Jeffrey that room is ready and that we are waiting on report.
[2018-04-03] VITALS (35 sets, daily range): BP systolic 77–123; BP diastolic 46–81; PULSE 73–98; RESP 12–34; TEMP 36.2–37; O2SAT 91–100; BMI 31.3
[2018-04-03] MEDS: 0.9% NaCl IVPB Med Flush (250 mL) 15 ML IV (00:10)
[2018-04-03] MEDS: Ipratropium/Albuterol Sulfate 3 ML AMPUL.NEB INHALATION ×8 (00:14→22:29)
[2018-04-03 00:30] LABS: BNP,B-Type NATRIURETIC PEPTIDE 229.4 pg/mL (0-100)
[2018-04-03] MEDS: 0.9% NaCl Peripheral Flush Adult/Peds IV ×4 (01:01→22:04)
[2018-04-03] MEDS: Ceftriaxone 1 GM/50 ML BAG IV (01:13)
[2018-04-03 04:24] LABS: Hematocrit 34.1 % (37-47); Mean Corp Hgb Conc 29.3 g/gl (32-36); Mean Corpuscular Hgb 26.5 pg (27.0-32.0); Mean Corpuscular Volume 90.2 fL (81-99); Platelet Count 372 K/mm3 (150-450); RBC Distribution Width CV 15.6 % (11.6-14.6); RBC Distribution Width SD 50.6 fl (35.1-43.9); Red Blood Count 3.78 M/mm3 (4.2-5.4); White Blood Count 12.3 K/mm3 (4.4-11.0)
[2018-04-03 04:26] LABS: Scan Indicated on CBC? Y/N NO
[2018-04-03 04:29] LABS: International Normalized Ratio 2.5; Prothrombin Time (Protime)PT. 27.4 SECONDS (11.7-14.9)
[2018-04-03 04:33] LABS: Anion Gap 4 (5-15); BUN 18 mg/dL (7-18); Calcium,Total 8.7 mg/dL (8.5-10.1); Chloride 89 mmol/L (98-107); EST Glomerular Filtration Rate 128 mL/min (>60); Est Glom Filt Rate - Afr Amer 155 mL/min (>60); Glucose 129 mg/dL (74-106); Potassium 3.6 mmol/L (3.5-5.1); Sodium Level 138 mmol/L (136-145)
--- NOTE | 2018-04-03 07:03 | PCM.CON.CC ---
Problem List (1) Atrial fibrillation with RVR Status: Acute (2) Diastolic dysfunction Status: Chronic (3) Chronic hypoxemic respiratory failure Status: Chronic (4) Chronic anticoagulation Status: Chronic (5) Heart failure with preserved ejection fraction Status: Chronic (6) Chronic a-fib Status: Chronic (7) Altered mental status Status: Acute (8) Acute on chronic respiratory failure with hypercapnia Status: Acute (9) Dyslipidemia Status: Chronic (10) COPD (chronic obstructive pulmonary disease) Status: Chronic Qualifiers: COPD type: unspecified COPD Qualified Code(s): J44.9 - Chronic obstructive pulmonary disease, unspecified Reason for Consult Date of Consultation: 04/03/18 Reason for Consultation: Acute on chronic respiratory failure History of Present Illness: The patient is a 72 year old F with past medical history listed below, who presented to [facility] on 04/02/2018 secondary to increasing confusion and recent fall. Patient reportedly reports her home health nurse told her she had a fever last week. Patient has had a cough at night, but did not believe that the change significantly from baseline. Patient did not report any abdominal pain, nausea, vomiting, melena, diarrhea or hematochezia. Patient did report generalized weakness. On presentation to the emergency room, patient was noted to be 97% on 4 L nasal cannula. Laboratory workup showed an EKG with atrial fibrillation at a rate of 77 and elevated carbon dioxide at 80.3. Patient did have a bicarbonate of 52.1. No significant lactic acidosis was noted and INR was therapeutic. Patient was placed on BiPAP therapy with improvement in mentation. Patient reported at that time that she was a DNR Comfort Care arrest without intubation. Patient was admitted to the intensive care unit for further monitoring. Overnight in the intensive care unit, patient's stay was relatively unremarkable. Patient was able to tolerate BiPAP therapy and was mentating at baseline. Patient reports subjective improvement in overall condition this morning. Patient denies any current chest pain or change in cough. Patient has noted some lower extremity edema, but states this is typical for her. Patient denies any dysuria, rash or sinus congestion. Patient did report some increased frequency and urgency of urine. Patient does report recalling the events in the ER. Patient was started on ceftriaxone empirically for possible UTI. Patient has had multiple admissions over the last 12 months with similar type presentation. Patient does have known preserved ejection fraction CHF and reportedly sees Dr. Chavarria at [facility] for reported COPD. Patient is unaware of her PFT results. Patient is very clear that she does not want to be intubated or receive CPR at this time. Review of systems otherwise negative ?10 systems. Past Medical History Past Medical History (Chronic Problems): Chronic Problems (Last Updated 03/08/18 @ 20:18 by Bonifacio Conway DO) Diastolic dysfunction (Chronic) Chronic hypoxemic respiratory failure (Chronic) Chronic anticoagulation (Chronic) Heart failure with preserved ejection fraction (Chronic) Chronic a-fib (Chronic) Dyslipidemia (Chronic) COPD (chronic obstructive pulmonary disease) (Chronic) Medical History: Medical History (Last Updated 03/08/18 @ 20:18 by Bonifacio Conway DO) Dyslipidemia (Chronic) E78.5 COPD (chronic obstructive pulmonary disease) (Chronic) J44.9 Atrial fibrillation I48.91 COPD exacerbation J44.1 Heart failure with preserved ejection fraction I50.30 Group 2. EF 65% 18 Essential hypertension I10 History of DVT (deep vein thrombosis) Z86.718 History of pulmonary embolus (PE) Z86.711 Pulmonary HTN I27.20 Venous insufficiency I87.2 Hypokalemia (Resolved) E87.6 Metabolic alkalosis with respiratory acidosis (Resolved) E87.4 Allergies amlodipine besylate [From [facility]] Adverse Reaction (Verified 03/08/18 17:57) ANKLE AND LEG EDEMA RESOLVED OFF MED-PER PCP PAPERWORK codeine Adverse Reaction (Verified 03/08/18 17:57) MENTAL STATUS CHANGE lisinopril Adverse Reaction (Verified 03/08/18 17:57) COUGH Home Medications: Ambulatory Orders Medication Instructions Recorded Citalopram [Celexa] 20 mg PO BID 07/19/15 Ergocalciferol [Vitamin D] 50,000 unit PO TH 07/19/15 Warfarin [Coumadin] 5 mg PO SUMOTUTHFRSA 07/19/15 Zolpidem Tartrate [Ambien] 10 mg PO QHS PRN 07/19/15 Ipratropium/Albuterol Sulfate 3 ml INHALATION 4X/DAY 12/16/15 [Duoneb] Albuterol Sulfate [Proair Hfa] 1 - 2 puff IH PRN PRN 03/08/18 Atenolol [Tenormin (beta donna)] 50 mg PO BID 03/08/18 Warfarin Sodium 2.5 mg PO WE 03/08/18 Amiodarone HCl [Cordarone] 200 mg PO BID #60 tab 03/11/18 Bisacodyl [Dulcolax] 5 mg PO DAILY PRN #30 tab 03/11/18 Furosemide 40 mg PO BID #60 tab 03/11/18 Potassium Chloride [K-Dur] 20 meq PO DAILYCM #30 tab 03/11/18 Prednisone 40 mg PO DAILY #10 tab 03/11/18 Surgical History: Surgical History (Last Reviewed 03/08/18 @ 20:18 by Bonifacio Conway DO) History of cholecystectomy Z90.49 History of total hysterectomy Z90.710 tailbone surgery Psychiatric History: Depression 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 Smoking Status: Former smoker - *Family History Maternal Family History: Family History (Last Reviewed 03/08/18 @ 20:19 by Bonifacio Conway DO) Sister Heart disease History Items: No pertinent history Paternal Family History: Family History (Last Reviewed 03/08/18 @ 20:19 by Bonifacio Conway DO) Sister Heart disease History Items: No pertinent history Review of Systems Comment: See HPI Patient Problems: Active and Suspected Problems (Last Updated 03/08/18 @ 20:18 by Bonifacio Conway DO) Altered mental status (Acute) Fall (Acute) Acute on chronic respiratory failure with hypercapnia (Acute) Objective: Chest x-ray was personally reviewed and shows no acute infiltrate. - Physical Exam General: Alert, Oriented x3, Cooperative, No apparent distress - On BiPAP therapy, - - Obese. HEENT: Atraumatic, PERRLA, EOMI, Normocephalic, - - Slight scleral injection without icterus Oral: No Gingival or Mucosal Lesions/ Ulcerations, Dry Mucosa Neck: Supple, No Nodes, Trachea Midline, JVD, Right Lungs: No rhonchi, No wheeze, No rales, Diminished, - - Symmetric expansion. No dullness to percussion. Cardiovascular: Normal S1, Normal S2, Irregular Rate, Murmur - Grade 2 out of 6 systolic ejection murmur at the right sternal border, No rub noted, No Gallop Abdomen: Bowel Sounds Present, Soft, Non Tender, Non-Distended, Obese Extremities: No clubbing, No cyanosis, Capillary Refill Less than 3 Seconds, Edema - 2+ lower extremity edema Skin: No rashes, No breakdown Musculoskeletal: No Tenderness to Palpation of Joints or Extremities Lymphatic: No Cervical, Supraclavicular, or Inguinal Adenopathy Neurological: Cranial nerves II-XII grossly intact, Neuro grossly intact, Motor Exam 5/5 strength throughout Psych/Mental Status: Alert and oriented to time, place, person, mood and affect Vital Signs Temp Pulse Resp BP Pulse Ox 36.7 C 78 20 H 117/77 98 04/03/18 06:00 04/03/18 06:51 04/03/18 06:51 04/03/18 06:00 04/03/18 06:50 Oxygen Flow Rate (L/min) 30 Oxygen Delivery Method Bi-pap Weight: 91 kg Body Mass Index (BMI) 31.3 Intake and Output for Last 24 Hours 04/01/18 04/02/18 04/03/18 23:59 23:59 23:59 Intake Total 407 / 407 Output Total 200 / 200 Balance 207 / 207 Laboratory Tests Past 24 Hrs 04/03/18 04/03/18 04/03/18 00:00 04:10 04:10 WBC 12.3 H RBC 3.78 L Hgb 10.0 L Hct 34.1 L MCV 90.2 MCH 26.5 L MCHC 29.3 L RDW 15.6 H RDW Differential 50.6 H Plt Count 372 MPV 12.0 PT INR Sodium 138 Potassium 3.6 Chloride 89 L Carbon Dioxide 45.0 H Anion Gap 4 L BUN 18 Creatinine 0.50 L Estim Creat Clear Calc 48.00 Est GFR (MDRD) Af Amer 155 Est GFR (MDRD) Non-Af 128 BUN/Creatinine Ratio 36.0 H Glucose 129 H Calcium 8.7 B-Natriuretic Peptide 229.4 H 04/03/18 04:10 WBC RBC Hgb Hct MCV MCH MCHC RDW RDW Differential Plt Count MPV PT 27.4 H INR 2.5 Sodium Potassium Chloride Carbon Dioxide Anion Gap BUN Creatinine Estim Creat Clear Calc Est GFR (MDRD) Af Amer Est GFR (MDRD) Non-Af BUN/Creatinine Ratio Glucose Calcium B-Natriuretic Peptide Clinical Impression(s) from Imaging Studies Brain CT 04/02/18 18:16 IMPRESSION: No acute intracranial process. Electronically Signed: Debbie Swain MD at 19:17 EDT Tel , Service support , Chest X-Ray 04/02/18 18:25 IMPRESSION: No acute cardiopulmonary process. Electronically Signed: Debbie Swain MD at 19:12 EDT Tel , Service support , Assessment/Plan Active and Suspected Problems (Last Updated 03/08/18 @ 20:18 by Bonifacio Conway DO) Altered mental status (Acute) Fall (Acute) Acute on chronic respiratory failure with hypercapnia (Acute) RECOMMENDATIONS: 1. Attempt BiPAP breaks as tolerated 2. Continue Solu-Medrol, bronchodilators and mucolytics 3. Await culture data, possibly discontinue antibiotics at 48 hours 4. Agree with continuing baseline Lasix therapy IMPRESSIONS: 1. Acute metabolic encephalopathy secondary to CO2 narcosis Patient appears to be mentating well at this time. Patient does have significant CO2 retention at baseline, but was compensated from a metabolic standpoint. However, patient did reportedly improve with mentation following initiation of BiPAP therapy. Patient does have a history of COPD and CHF, but data is not available for review at this time. 2. Acute on chronic combined respiratory failure Likely multifactorial. There is some concern patient may have untreated sleep apnea, which could lead to decompensation. Patient is currently appropriately on IV steroids, bronchodilators and mucolytic's. Respiratory panel has been ordered and is currently pending. If respiratory panel is positive, antibiotics can be discontinued. Follow culture data. Patient should have a sputum culture if possible. 3. Chronic preserved ejection fraction CHF/paroxysmal A. fib Patient appears to be at her baseline at this time. Patient does have some lower extremity edema, but overall BMP is unimpressive. Agree with continuing with baseline diuretic therapy. We will continue to monitor. Patient can continue on baseline medical therapy. 4. Advanced age/dyslipidemia/degenerative joint disease/multiple admissions/low functional capacity Complicates care, management, recovery and prognosis. There does appear to be some distention with her daughters about her CODE STATUS. Patient is very clear that she does not want intubation. Will attempt to readdress later with the daughters. Code Visit Inpatient E&M: 71958 Init Hosp L3
--- NOTE | 2018-04-03 07:10 | CON.PCM_ITS ---
Problem List (1) Atrial fibrillation with RVR Status: Acute (2) Diastolic dysfunction Status: Chronic (3) Chronic hypoxemic respiratory failure Status: Chronic (4) Chronic anticoagulation Status: Chronic (5) Heart failure with preserved ejection fraction Status: Chronic (6) Chronic a-fib Status: Chronic (7) Altered mental status Status: Acute (8) Acute on chronic respiratory failure with hypercapnia Status: Acute (9) Dyslipidemia Status: Chronic (10) COPD (chronic obstructive pulmonary disease) Status: Chronic Qualifiers: COPD type: unspecified COPD Qualified Code(s): J44.9 - Chronic obstructive pulmonary disease, unspecified Reason for Consult Date of Consultation: 04/03/18 Reason for Consultation: Acute on chronic respiratory failure History of Present Illness: The patient is a 72 year old F with past medical history listed below, who presented to [facility] on 04/02/2018 secondary to increasing confusion and recent fall. Patient reportedly reports her home health nurse told her she had a fever last week. Patient has had a cough at night, but did not believe that the change significantly from baseline. Patient did not report any abdominal pain, nausea, vomiting, melena, diarrhea or hematochezia. Patient did report generalized weakness. On presentation to the emergency room , patient was noted to be 97% on 4 L nasal cannula. Laboratory workup showed an EKG with atrial fibrillation at a rate of 77 and elevated carbon dioxide at 80.3. Patient did have a bicarbonate of 52.1. No significant lactic acidosis was noted and INR was therapeutic. Patient was placed on BiPAP therapy with improvement in mentation. Patient reported at that time that she was a DNR Comfort Care arrest without intubation. Patient was admitted to the intensive care unit for further monitoring. Overnight in the intensive care unit, patient's stay was relatively unremarkable. Patient was able to tolerate BiPAP therapy and was mentating at baseline. Patient reports subjective improvement in overall condition this morning. Patient denies any current chest pain or change in cough. Patient has noted some lower extremity edema, but states this is typical for her. Patient denies any dysuria, rash or sinus congestion. Patient did report some increased frequency and urgency of urine. Patient does report recalling the events in the ER. Patient was started on ceftriaxone empirically for possible UTI. Patient has had multiple admissions over the last 12 months with similar type presentation. Patient does have known preserved ejection fraction CHF and reportedly sees Dr. Chavarria at [facility] for reported COPD. Patient is unaware of her PFT results. Patient is very clear that she does not want to be intubated or receive CPR at this time. Review of systems otherwise negative ?10 systems. Past Medical History Past Medical History (Chronic Problems): Chronic Problems (Last Updated 03/08/18 @ 20:18 by Bonifacio Conway DO) Diastolic dysfunction (Chronic) Chronic hypoxemic respiratory failure (Chronic) Chronic anticoagulation (Chronic) Heart failure with preserved ejection fraction (Chronic) Chronic a-fib (Chronic) Dyslipidemia (Chronic) COPD (chronic obstructive pulmonary disease) (Chronic) Medical History: Medical History (Last Updated 03/08/18 @ 20:18 by Bonifacio Conway DO) Dyslipidemia (Chronic) E78.5 COPD (chronic obstructive pulmonary disease) (Chronic) J44.9 Atrial fibrillation I48.91 COPD exacerbation J44.1 Heart failure with preserved ejection fraction I50.30 Group 2. EF 65% 18 Essential hypertension I10 History of DVT (deep vein thrombosis) Z86.718 History of pulmonary embolus (PE) Z86.711 Pulmonary HTN I27.20 Venous insufficiency I87.2 Hypokalemia (Resolved) E87.6 Metabolic alkalosis with respiratory acidosis (Resolved) E87.4 Allergies amlodipine besylate [From [facility]] Adverse Reaction (Verified 03/08/18 17:57) ANKLE AND LEG EDEMA RESOLVED OFF MED-PER PCP PAPERWORK codeine Adverse Reaction (Verified 03/08/18 17:57) MENTAL STATUS CHANGE lisinopril Adverse Reaction (Verified 03/08/18 17:57) COUGH Home Medications: Ambulatory Orders Medication Instructions Recorded Citalopram [Celexa] 20 mg PO BID 07/19/15 Ergocalciferol [Vitamin D] 50,000 unit PO TH 07/19/15 Warfarin [Coumadin] 5 mg PO SUMOTUTHFRSA 07/19/15 Zolpidem Tartrate [Ambien] 10 mg PO QHS PRN 07/19/15 Ipratropium/Albuterol Sulfate 3 ml INHALATION 4X/DAY 12/16/15 [Duoneb] Albuterol Sulfate [Proair Hfa] 1 - 2 puff IH PRN PRN 03/08/18 Atenolol [Tenormin (beta donna)] 50 mg PO BID 03/08/18 Warfarin Sodium 2.5 mg PO WE 03/08/18 Amiodarone HCl [Cordarone] 200 mg PO BID #60 tab 03/11/18 Bisacodyl [Dulcolax] 5 mg PO DAILY PRN #30 tab 03/11/18 Furosemide 40 mg PO BID #60 tab 03/11/18 Potassium Chloride [K-Dur] 20 meq PO DAILYCM #30 tab 03/11/18 Prednisone 40 mg PO DAILY #10 tab 03/11/18 Surgical History: Surgical History (Last Reviewed 03/08/18 @ 20:18 by Bonifacio Conway DO) History of cholecystectomy Z90.49 History of total hysterectomy Z90.710 tailbone surgery Psychiatric History: Depression VITICULTURIST History: No pertinent VITICULTURIST history Smoking Status: Former smoker - *Family History Maternal Family History: Family History (Last Reviewed 03/08/18 @ 20:19 by Bonifacio Conway DO) Sister Heart disease History Items: No pertinent history Paternal Family History: Family History (Last Reviewed 03/08/18 @ 20:19 by Bonifacio Conway DO) Sister Heart disease History Items: No pertinent history Review of Systems Comment: See HPI Patient Problems: Active and Suspected Problems (Last Updated 03/08/18 @ 20:18 by Bonifacio Conway DO ) Altered mental status (Acute) Fall (Acute) Acute on chronic respiratory failure with hypercapnia (Acute) Objective: Chest x-ray was personally reviewed and shows no acute infiltrate. - Physical Exam General: Alert, Oriented x3, Cooperative, No apparent distress - On BiPAP therapy, - - Obese. HEENT: Atraumatic, PERRLA, EOMI, Normocephalic, - - Slight scleral injection without icterus Oral: No Gingival or Mucosal Lesions/ Ulcerations, Dry Mucosa Neck: Supple, No Nodes, Trachea Midline, JVD, Right Lungs: No rhonchi, No wheeze, No rales, Diminished, - - Symmetric expansion. No dullness to percussion. Cardiovascular: Normal S1, Normal S2, Irregular Rate, Murmur - Grade 2 out of 6 systolic ejection murmur at the right sternal border, No rub noted, No Gallop Abdomen: Bowel Sounds Present, Soft, Non Tender, Non-Distended, Obese Extremities: No clubbing, No cyanosis, Capillary Refill Less than 3 Seconds, Edema - 2+ lower extremity edema Skin: No rashes, No breakdown Musculoskeletal: No Tenderness to Palpation of Joints or Extremities Lymphatic: No Cervical, Supraclavicular, or Inguinal Adenopathy Neurological: Cranial nerves II-XII grossly intact, Neuro grossly intact, Motor Exam 5/5 strength throughout Psych/Mental Status: Alert and oriented to time, place, person, mood and affect Vital Signs Temp Pulse Resp BP Pulse Ox 36.7 C 78 20 H 117/77 98 04/03/18 06:00 04/03/18 06:51 04/03/18 06:51 04/03/18 06:00 04/03/18 06:50 Oxygen Flow Rate (L/min) 30 Oxygen Delivery Method Bi-pap Weight: 91 kg Body Mass Index (BMI) 31.3 Intake and Output for Last 24 Hours 04/01/18 04/02/18 04/03/18 23:59 23:59 23:59 Intake Total 407 / 407 Output Total 200 / 200 Balance 207 / 207 Laboratory Tests Past 24 Hrs 04/03/18 04/03/18 04/03/18 00:00 04:10 04:10 WBC 12.3 H RBC 3.78 L Hgb 10.0 L Hct 34.1 L MCV 90.2 MCH 26.5 L MCHC 29.3 L RDW 15.6 H RDW Differential 50.6 H Plt Count 372 MPV 12.0 PT INR Sodium 138 Potassium 3.6 Chloride 89 L Carbon Dioxide 45.0 H Anion Gap 4 L BUN 18 Creatinine 0.50 L Estim Creat Clear Calc 48.00 Est GFR (MDRD) Af Amer 155 Est GFR (MDRD) Non-Af 128 BUN/Creatinine Ratio 36.0 H Glucose 129 H Calcium 8.7 B-Natriuretic Peptide 229.4 H 04/03/18 04:10 WBC RBC Hgb Hct MCV MCH MCHC RDW RDW Differential Plt Count MPV PT 27.4 H INR 2.5 Sodium Potassium Chloride Carbon Dioxide Anion Gap BUN Creatinine Estim Creat Clear Calc Est GFR (MDRD) Af Amer Est GFR (MDRD) Non-Af BUN/Creatinine Ratio Glucose Calcium B-Natriuretic Peptide Clinical Impression(s) from Imaging Studies Brain CT 04/02/18 18:16 IMPRESSION: No acute intracranial process. Electronically Signed: Debbie Swain MD at 19:17 EDT Tel , Service support , Chest X-Ray 04/02/18 18:25 IMPRESSION: No acute cardiopulmonary process. Electronically Signed: Debbie Swain MD at 19:12 EDT Tel , Service support , Assessment/Plan Active and Suspected Problems (Last Updated 03/08/18 @ 20:18 by Bonifacio Conway DO ) Altered mental status (Acute) Fall (Acute) Acute on chronic respiratory failure with hypercapnia (Acute) RECOMMENDATIONS: 1. Attempt BiPAP breaks as tolerated 2. Continue Solu-Medrol, bronchodilators and mucolytics 3. Await culture data, possibly discontinue antibiotics at 48 hours 4. Agree with continuing baseline Lasix therapy IMPRESSIONS: 1. Acute metabolic encephalopathy secondary to CO2 narcosis Patient appears to be mentating well at this time. Patient does have significant CO2 retention at baseline, but was compensated from a metabolic standpoint. However, patient did reportedly improve with mentation following initiation of BiPAP therapy. Patient does have a history of COPD and CHF, but data is not available for review at this time. 2. Acute on chronic combined respiratory failure Likely multifactorial. There is some concern patient may have untreated sleep apnea, which could lead to decompensation. Patient is currently appropriately on IV steroids, bronchodilators and mucolytic's. Respiratory panel has been ordered and is currently pending. If respiratory panel is positive, antibiotics can be discontinued. Follow culture data. Patient should have a sputum culture if possible. 3. Chronic preserved ejection fraction CHF/paroxysmal A. fib Patient appears to be at her baseline at this time. Patient does have some lower extremity edema, but overall BMP is unimpressive. Agree with continuing with baseline diuretic therapy. We will continue to monitor. Patient can continue on baseline medical therapy. 4. Advanced age/dyslipidemia/degenerative joint disease/multiple admissions/ low functional capacity Complicates care, management, recovery and prognosis. There does appear to be some distention with her daughters about her CODE STATUS. Patient is very clear that she does not want intubation. Will attempt to readdress later with the daughters. Code Visit Inpatient E&M: 64897 Init Hosp L3
[2018-04-03] MEDS: guaiFENesin 1,200 MG Tablet 1200 MG PO (08:22)
[2018-04-03] MEDS: Furosemide 40 MG Tablet PO ×2 (08:22→08:36)
[2018-04-03] MEDS: Atenolol 50 MG Tablet PO ×2 (08:23→21:57)
[2018-04-03] MEDS: Amiodarone 200 MG Tablet PO (08:23)
[2018-04-03] MEDS: Senna/Docusate Sodium 1 Tablet 2 TABLET PO (08:23)
[2018-04-03 08:50] LABS: Allen Test POS; Blood Gas Specimen Type ART; EPAP 4; FI02 30; IPAP 12; O2 Delivery Device Bi Pap; SITE R RADIAL
[2018-04-03 08:51] LABS: Time Given 357; pH 7.45 (7.35-7.45)
[2018-04-03 08:52] LABS: Base Excess 27 mmol/L (-2 to +2); Bicarbonate 50.5 mmol/L (22-26); PO2 67 mmHG (75-100); SO2 92 % (95-99); Total Carbon Dioxide > 50 mmol/L; pCO2 72.5 mmHg (35-45)
[2018-04-03 08:54] LABS: Allen Test POS; Blood Gas Specimen Type ART; SITE L RADIAL
[2018-04-03 08:55] LABS: O2 Delivery Device Nasal Can; Time Given 1847; pH 7.42 (7.35-7.45)
[2018-04-03 08:56] LABS: Base Excess 28 mmol/L (-2 to +2); Bicarbonate 52.1 mmol/L (22-26); PO2 73 mmHG (75-100); SO2 93 % (95-99); Total Carbon Dioxide > 50 mmol/L; pCO2 80.3 mmHg (35-45)
[2018-04-03 08:58] LABS: Allen Test POS; Blood Gas Specimen Type ART; EPAP 5; FI02 30; IPAP 10; O2 Delivery Device Bi Pap; SITE L RADIAL; Time Given 2210
[2018-04-03 08:59] LABS: Base Excess 27 mmol/L (-2 to +2); Bicarbonate 51.7 mmol/L (22-26); PO2 65 mmHG (75-100); SO2 91 % (95-99); Total Carbon Dioxide > 50 mmol/L; pCO2 81.3 mmHg (35-45); pH 7.41 (7.35-7.45)
--- NOTE | 2018-04-03 11:20 | CASEMGMT ---
RN CM NOTE: This RN CM to room to do assessment. Pt on BSC at this time. Will attempt later . Rosa BSN RN CM
--- NOTE | 2018-04-03 11:48 | NURSING ---
1130- report called to katie san and pt transferred to pcu with o2l at 2l port tank.
--- NOTE | 2018-04-03 16:37 | CHAPLAIN ---
Type of Pastoral Visit _x__ Initial Visit ___ Follow-up Visit ___ On-call Visit ___ General Patient Visit ___ Spiritual Assessment ___ Family Conference ___ Bereavement ___ Rapid Response ___ Code Blue ___ Other (describe below) Pastoral Care Referral From _x__ Patient ___ Family ___ Nurse ___ Physician ___ Co Founder And Chairman ___ Stonecutter Apprentice Hand ___ Other (describe below) Sacrament/Intervention _x__ Active listening ___ Anointing ___ Roman Catholic ___ Bereavement ___ Communion _x__ Teresa exploration ___ _x__ Life review _x__ Prayer ___ Reconciliation ___ Sacrament of Sick _x__ Supportive presence ___ Wedding ___ Other (describe below) Pastoral Comments
--- NOTE | 2018-04-03 18:33 | PCM.PROGNOTE ---
Patient Problems: Active and Suspected Problems (Last Updated 03/08/18 @ 20:18 by Bonifacio Conway DO) Altered mental status (Acute) Fall (Acute) Acute on chronic respiratory failure with hypercapnia (Acute) Subjective: Patient was seen and examined today in the ICU, her daughter is also in the room. Patient is agreed to go to a alf facility for rehab if it is necessary, she would prefer to go [facility] which is a new nursing care facility. Daughter is also urging her to go to a alf facility for rehab. I talked briefly with critical care medicine today and critical care felt that the patient was stable for transfer to PCU. - Physical Exam General: Alert, Oriented x3, Cooperative, No apparent distress, Well developed, Well nourished HEENT: Atraumatic, PERRLA, EOMI, Normocephalic Oral: Moist Mucosa Neck: Supple, No Nuchal Rigidity, Trachea Midline, Thyroid Normal Size and Texture Lungs: Clear to auscultation, No wheeze, No rales, Diminished Cardiovascular: PMI Normal, Irregular Rate, Murmur - 2/6 systolic murmur noted at the apex and right sternal border, No rub noted, No Gallop Abdomen: Bowel Sounds Present, Soft, Non Tender, Non-Distended Extremities: No clubbing, No cyanosis, Capillary Refill Less than 3 Seconds Skin: No rashes, No breakdown Musculoskeletal: No Tenderness to Palpation of Joints or Extremities Neurological: Cranial nerves II-XII grossly intact, Neuro grossly intact, Sensory exam intact to light touch and pain, Coordination normal Psych/Mental Status: Normal Affect, Appropriate, Alert and oriented to time, place, person, mood and affect Vital Signs Temp Pulse Resp BP Pulse Ox 98.6 F 98 18 111/55 L 94 04/03/18 17:20 04/03/18 17:20 04/03/18 17:20 04/03/18 17:20 04/03/18 17:20 Oxygen Flow Rate (L/min) 2 Oxygen Delivery Method Nasal Cannula Weight: 91 kg Body Mass Index (BMI) 31.3 Intake and Output for Last 24 Hours 04/01/18 04/02/18 04/03/18 23:59 23:59 23:59 Intake Total 647 / 647 Output Total 200 / 200 Balance 447 / 447 Microbiology Past 72 Hours 04/03/18 00:01 Respiratory Panel (PCR) - Final Mucosa - Nose Laboratory Tests Past 24 Hrs 04/02/18 04/03/18 04/03/18 22:10 00:00 03:54 WBC RBC Hgb Hct MCV MCH MCHC RDW RDW Differential Plt Count MPV PT INR Specimen Type ART ART Sample Site L RADIAL R RADIAL pH 7.41 7.45 Bicarbonate Actual 51.7 H 50.5 H POC Total CO2 > 50 > 50 Base Excess 27 H 27 H O2 Saturation 91 L 92 L O2 % 30 30 ABG pCO2 81.3 H* 72.5 H* ABG pO2 65 L 67 L Mj Test POS POS O2 Delivery Device Bi Pap Bi Pap EPAP 5 4 IPAP 10 12 Blood Gas Notified Whom ED MD HOSP Blood Gas Notified Time 2210 357 Sodium Potassium Chloride Carbon Dioxide Anion Gap BUN Creatinine Estim Creat Clear Calc Est GFR (MDRD) Af Amer Est GFR (MDRD) Non-Af BUN/Creatinine Ratio Glucose Calcium B-Natriuretic Peptide 229.4 H 04/03/18 04/03/18 04/03/18 04:10 04:10 04:10 WBC 12.3 H RBC 3.78 L Hgb 10.0 L Hct 34.1 L MCV 90.2 MCH 26.5 L MCHC 29.3 L RDW 15.6 H RDW Differential 50.6 H Plt Count 372 MPV 12.0 PT 27.4 H INR 2.5 Specimen Type Sample Site pH Bicarbonate Actual POC Total CO2 Base Excess O2 Saturation O2 % ABG pCO2 ABG pO2 Mj Test O2 Delivery Device EPAP IPAP Blood Gas Notified Whom Blood Gas Notified Time Sodium 138 Potassium 3.6 Chloride 89 L Carbon Dioxide 45.0 H Anion Gap 4 L BUN 18 Creatinine 0.50 L Estim Creat Clear Calc 48.00 Est GFR (MDRD) Af Amer 155 Est GFR (MDRD) Non-Af 128 BUN/Creatinine Ratio 36.0 H Glucose 129 H Calcium 8.7 B-Natriuretic Peptide Medical Necessity - Tobacco Use Smoking Status: Former smoker Assessment/Plan All Active Problems (Last Updated 03/08/18 @ 20:18 by Bonifacio Conway DO) Atrial fibrillation with RVR (Acute) Metabolic alkalosis (Acute) Metabolic alkalosis (Acute) Altered mental status (Acute) Fall (Acute) Acute on chronic respiratory failure with hypercapnia (Acute) Hypokalemia (Resolved) Metabolic alkalosis with respiratory acidosis (Resolved) #1 acute on chronic combined respiratory failure-continue patient on IV steroids bronchodilators and mucolytics, patient will be transferred to PCU, critical care will continue to follow patient on the floor #2 acute metabolic encephalopathy secondary to CO2 narcosis-resolved at this time #3 chronic atrial fibrillation-rate is controlled at this time #4 acute cystitis-patient will be maintained on oral antibiotics at this time, I do not feel she needs IV Rocephin #5 chronic obstructive pulmonary disease #6 generalized debility secondary to multiple medical problems including COPD-PT and OT will see the patient, plan is for the patient to go to a alf facility for short-term rehab #7 pulmonary hypertension Code Visit Inpatient E&M: 13458 Subs Hosp L2
--- NOTE | 2018-04-03 18:38 | PN_ITS ---
Patient Problems: Active and Suspected Problems (Last Updated 03/08/18 @ 20:18 by Bonifacio Conway DO ) Altered mental status (Acute) Fall (Acute) Acute on chronic respiratory failure with hypercapnia (Acute) Subjective: Patient was seen and examined today in the ICU, her daughter is also in the room. Patient is agreed to go to a [facility] facility for rehab if it is necessary, she would prefer to go to [facility] which is a new nursing care facility. Daughter is also urging her to go to a [facility] facility for rehab. I talked briefly with critical care medicine today and critical care felt that the patient was stable for transfer to PCU. - Physical Exam General: Alert, Oriented x3, Cooperative, No apparent distress, Well developed, Well nourished HEENT: Atraumatic, PERRLA, EOMI, Normocephalic Oral: Moist Mucosa Neck: Supple, No Nuchal Rigidity, Trachea Midline, Thyroid Normal Size and Texture Lungs: Clear to auscultation, No wheeze, No rales, Diminished Cardiovascular: PMI Normal, Irregular Rate, Murmur - 2/6 systolic murmur noted at the apex and right sternal border, No rub noted, No Gallop Abdomen: Bowel Sounds Present, Soft, Non Tender, Non-Distended Extremities: No clubbing, No cyanosis, Capillary Refill Less than 3 Seconds Skin: No rashes, No breakdown Musculoskeletal: No Tenderness to Palpation of Joints or Extremities Neurological: Cranial nerves II-XII grossly intact, Neuro grossly intact, Sensory exam intact to light touch and pain, Coordination normal Psych/Mental Status: Normal Affect, Appropriate, Alert and oriented to time, place, person, mood and affect Vital Signs Temp Pulse Resp BP Pulse Ox 98.6 F 98 18 111/55 L 94 04/03/18 17:20 04/03/18 17:20 04/03/18 17:20 04/03/18 17:20 04/03/18 17:20 Oxygen Flow Rate (L/min) 2 Oxygen Delivery Method Nasal Cannula Weight: 91 kg Body Mass Index (BMI) 31.3 Intake and Output for Last 24 Hours 04/01/18 04/02/18 04/03/18 23:59 23:59 23:59 Intake Total 647 / 647 Output Total 200 / 200 Balance 447 / 447 Microbiology Past 72 Hours 04/03/18 00:01 Respiratory Panel (PCR) - Final Mucosa - Nose Laboratory Tests Past 24 Hrs 04/02/18 04/03/18 04/03/18 22:10 00:00 03:54 WBC RBC Hgb Hct MCV MCH MCHC RDW RDW Differential Plt Count MPV PT INR Specimen Type ART ART Sample Site L RADIAL R RADIAL pH 7.41 7.45 Bicarbonate Actual 51.7 H 50.5 H POC Total CO2 > 50 > 50 Base Excess 27 H 27 H O2 Saturation 91 L 92 L O2 % 30 30 ABG pCO2 81.3 H* 72.5 H* ABG pO2 65 L 67 L Mj Test POS POS O2 Delivery Device Bi Pap Bi Pap EPAP 5 4 IPAP 10 12 Blood Gas Notified Whom ED MD HOSP Blood Gas Notified Time 2210 357 Sodium Potassium Chloride Carbon Dioxide Anion Gap BUN Creatinine Estim Creat Clear Calc Est GFR (MDRD) Af Amer Est GFR (MDRD) Non-Af BUN/Creatinine Ratio Glucose Calcium B-Natriuretic Peptide 229.4 H 04/03/18 04/03/18 04/03/18 04:10 04:10 04:10 WBC 12.3 H RBC 3.78 L Hgb 10.0 L Hct 34.1 L MCV 90.2 MCH 26.5 L MCHC 29.3 L RDW 15.6 H RDW Differential 50.6 H Plt Count 372 MPV 12.0 PT 27.4 H INR 2.5 Specimen Type Sample Site pH Bicarbonate Actual POC Total CO2 Base Excess O2 Saturation O2 % ABG pCO2 ABG pO2 Mj Test O2 Delivery Device EPAP IPAP Blood Gas Notified Whom Blood Gas Notified Time Sodium 138 Potassium 3.6 Chloride 89 L Carbon Dioxide 45.0 H Anion Gap 4 L BUN 18 Creatinine 0.50 L Estim Creat Clear Calc 48.00 Est GFR (MDRD) Af Amer 155 Est GFR (MDRD) Non-Af 128 BUN/Creatinine Ratio 36.0 H Glucose 129 H Calcium 8.7 B-Natriuretic Peptide Medical Necessity - Tobacco Use Smoking Status: Former smoker Assessment/Plan All Active Problems (Last Updated 03/08/18 @ 20:18 by Bonifacio Conway DO) Atrial fibrillation with RVR (Acute) Metabolic alkalosis (Acute) Metabolic alkalosis (Acute) Altered mental status (Acute) Fall (Acute) Acute on chronic respiratory failure with hypercapnia (Acute) Hypokalemia (Resolved) Metabolic alkalosis with respiratory acidosis (Resolved) #1 acute on chronic combined respiratory failure-continue patient on IV steroids bronchodilators and mucolytics, patient will be transferred to PCU, critical care will continue to follow patient on the floor #2 acute metabolic encephalopathy secondary to CO2 narcosis-resolved at this time #3 chronic atrial fibrillation-rate is controlled at this time #4 acute cystitis-patient will be maintained on oral antibiotics at this time, I do not feel she needs IV Rocephin #5 chronic obstructive pulmonary disease #6 generalized debility secondary to multiple medical problems including COPD- PT and OT will see the patient, plan is for the patient to go to a [facility] facility for short-term rehab #7 pulmonary hypertension Code Visit Inpatient E&M: 44964 Subs Hosp L2
[2018-04-03] MEDS: Zolpidem Tartrate 5 MG Tablet PO ×2 (22:02→23:17)
[2018-04-04] VITALS (18 sets, daily range): BP systolic 109–122; BP diastolic 66–73; PULSE 77–106; RESP 12–22; TEMP 36.4–37.1; O2SAT 91–98
[2018-04-04] MEDS: Albuterol 2.5 MG/3 ML VIAL.NEB. INHALATION (05:05)
[2018-04-04] MEDS: 0.9% NaCl Peripheral Flush Adult/Peds IV ×2 (05:27→21:29)
[2018-04-04] MEDS: Cephalexin 500 MG Capsule PO ×3 (05:27→21:20)
[2018-04-04] MEDS: Ipratropium/Albuterol Sulfate 3 ML AMPUL.NEB INHALATION ×5 (06:36→23:22)
[2018-04-04 07:19] LABS: Prothrombin Time (Protime)PT. 30.9 SECONDS (11.7-14.9)
[2018-04-04] MEDS: Senna/Docusate Sodium 1 Tablet 2 TABLET PO ×2 (09:23→21:20)
[2018-04-04] MEDS: Furosemide 40 MG Tablet PO ×2 (09:23→16:45)
[2018-04-04] MEDS: Atenolol 50 MG Tablet PO ×2 (09:24→21:19)
--- NOTE | 2018-04-04 11:39 | CASEMGMT ---
YAO was told by physician that patient wants to go to [facility]. YAO called [facility] and made a referral as well as faxed information. Spoke with Stacy at [facility] and they can take patient. YAO met with patient, introduced self and role at [facility]. YAO told her [facility] can take her when she is ready for d/c. Plan: [facility]en ANDERSON
--- NOTE | 2018-04-04 11:41 | CASEMGMT ---
Readmission chart review: Pt was initially admitted 03/08-03/11 for CHF and was set up with [facility] at that time, pt is still current with [facility] for RN at this time. Pt returned for Acute on chronic resp failure with hypercapnia on 04/02/18. See CM assessment completed by Yessica MERCEDES CM on 03/09/18. Pt is on continuous oxygen at home through [employer]. Per Dr. Holt, pt/daughter are interested in [facility] for placement for pt at this time. Referral to [facility] at this time, voices understanding. Vianney MERCEDES CM
--- NOTE | 2018-04-04 14:44 | CASEMGMT ---
YAO called Stacy at [facility] and let her know that patient will require bi-pap for nighttime. YAO also faxed over bi-pap settings. Plan: [facility] under skilled level of care. Regla VIZCARRA MSW
--- NOTE | 2018-04-04 15:15 | PN_ITS ---
Patient Problems: Active and Suspected Problems (Last Updated 03/08/18 @ 20:18 by Bonifacio Conway DO ) Altered mental status (Acute) Fall (Acute) Acute on chronic respiratory failure with hypercapnia (Acute) Subjective: Patient did well overnight. Patient does report subjectively feeling back to baseline. Patient denies any cough. Patient did not use BiPAP therapy overnight. Patient denies any bleeding complications. - Physical Exam General: Alert, Oriented x3, Cooperative, No apparent distress, - - Obese. Speaking in full sentences. HEENT: Atraumatic, PERRLA, EOMI, Normocephalic, - - No scleral icterus or injection noted. Oral: Moist Mucosa, No Gingival or Mucosal Lesions/ Ulcerations Neck: Supple, No JVD, No Nodes Lungs: No rhonchi, No wheeze, No rales, Diminished, - - Symmetric expansion. No dullness to percussion. Cardiovascular: Normal S1, Normal S2, No murmurs, Irregular Rate, No rub noted, No Gallop Abdomen: Bowel Sounds Present, Soft, Non Tender, Non-Distended, Obese Extremities: No clubbing, No cyanosis, Capillary Refill Less than 3 Seconds, Edema Skin: - - No significant change compared to previous Musculoskeletal: No Tenderness to Palpation of Joints or Extremities, No Muscle Wasting Lymphatic: No Cervical, Supraclavicular, or Inguinal Adenopathy Neurological: Cranial nerves II-XII grossly intact, Neuro grossly intact, Motor Exam 5/5 strength throughout Psych/Mental Status: Alert and oriented to time, place, person, mood and affect Vital Signs Temp Pulse Resp BP Pulse Ox 37.1 C 78 21 H 112/66 98 04/04/18 13:45 04/04/18 14:22 04/04/18 14:22 04/04/18 13:45 04/04/18 13:45 Oxygen Flow Rate (L/min) 2 Oxygen Delivery Method Nasal Cannula Weight: 91.1 kg Body Mass Index (BMI) 31.3 Intake and Output for Last 24 Hours 04/02/18 04/03/18 04/04/18 23:59 23:59 23:59 Intake Total 1037 / 1037 340 / 340 Output Total 500 / 500 Balance 537 / 537 340 / 340 Microbiology Past 72 Hours 04/03/18 01:50 Urine Culture - Final Urine, Clean Catch Streptococcus group D 04/03/18 00:01 Respiratory Panel (PCR) - Final Mucosa - Nose Laboratory Tests Past 24 Hrs 04/04/18 06:10 PT 30.9 H INR 3.0 Medical Necessity - Tobacco Use Smoking Status: Former smoker Assessment/Plan All Active Problems (Last Updated 03/08/18 @ 20:18 by Bonifacio Conway, ) Atrial fibrillation with RVR (Resolved) Metabolic alkalosis (Acute) Metabolic alkalosis (Acute) Altered mental status (Acute) Fall (Acute) Acute on chronic respiratory failure with hypercapnia (Acute) Hypokalemia (Resolved) Metabolic alkalosis with respiratory acidosis (Resolved) RECOMMENDATIONS: 1. Initiate BiPAP nightly 2. Continue Solu-Medrol, bronchodilators and mucolytics. 3. Chin to prednisone therapy tomorrow 4. Agree with continuing baseline Lasix therapy IMPRESSIONS: 1. Acute metabolic encephalopathy secondary to CO2 narcosis Patient appears to be mentating well at this time. Patient does have significant CO2 retention at baseline, but was compensated from a metabolic standpoint. Long discussion with patient about the use of BiPAP therapy in the setting of chronic respiratory failure. Patient does have an elevated carbon dioxide and may have an element of hypoventilation with sleep. After long discussion, patient has agreed to try BiPAP therapy with sleep. 2. Acute on chronic combined respiratory failure Likely multifactorial. There is some concern patient may have untreated sleep apnea, which could lead to decompensation. Patient is currently appropriately on IV steroids, bronchodilators and mucolytic's. Likely transition to prednisone therapy tomorrow. Okay to continue with mucolytic's and bronchodilators. 3. Chronic preserved ejection fraction CHF/paroxysmal A. fib Patient appears to be at her baseline at this time. Patient does have some lower extremity edema, but overall BNP is unimpressive. Agree with continuing with baseline diuretic therapy. We will continue to monitor. Patient can continue on baseline medical therapy. The use of BiPAP therapy overnight may improve patient's tolerance from a CHF standpoint for dietary indiscretions. 4. Advanced age/dyslipidemia/degenerative joint disease/multiple admissions/ low functional capacity Complicates care, management, recovery and prognosis. Patient is aware that her daughter does not want to honor her wishes for DNR Comfort Care arrest without intubation. Patient is very clear at this time that that is her wishes. Did discuss with the patient about a possible DPOA as a possible solution. Code Visit Inpatient E&M: 13128 Subs Hosp L2
--- NOTE | 2018-04-04 20:05 | PN_ITS ---
Patient Problems: Active and Suspected Problems (Last Updated 03/08/18 @ 20:18 by Bonifacio Conway DO ) Altered mental status (Acute) Fall (Acute) Acute on chronic respiratory failure with hypercapnia (Acute) Subjective: Patient was seen and examined today, urine culture grew out small numbers of group D strep, I will continue oral antibiotics for total of 5 days. Patient is currently on nasal cannula oxygen with BiPAP at night. She does not complain of any increased shortness of breath today. - Physical Exam General: Alert, Oriented x3, Cooperative HEENT: Atraumatic, PERRLA, EOMI, Normocephalic Oral: Moist Mucosa Neck: Supple, No Nuchal Rigidity, Trachea Midline Lungs: Clear to auscultation, No rhonchi, No wheeze, Diminished Cardiovascular: No murmurs, PMI Normal, Irregular Rate, No rub noted Abdomen: Bowel Sounds Present, Soft, Non Tender, Non-Distended, No hernias noted Extremities: No edema, Capillary Refill Less than 3 Seconds Skin: No rashes, No breakdown Musculoskeletal: No Tenderness to Palpation of Joints or Extremities Neurological: Cranial nerves II-XII grossly intact, Neuro grossly intact, Sensory exam intact to light touch and pain, Coordination normal Psych/Mental Status: Normal Affect, Appropriate, Alert and oriented to time, place, person, mood and affect Vital Signs Temp Pulse Resp BP Pulse Ox 98.4 F 102 H 18 118/69 94 04/04/18 16:51 04/04/18 19:32 04/04/18 19:12 04/04/18 16:51 04/04/18 16:51 Oxygen Flow Rate (L/min) 2 Oxygen Delivery Method Nasal Cannula Weight: 91.1 kg Body Mass Index (BMI) 31.3 Intake and Output for Last 24 Hours 04/02/18 04/03/18 04/04/18 23:59 23:59 23:59 Intake Total 1037 / 1037 820 / 820 Output Total 500 / 500 Balance 537 / 537 820 / 820 Microbiology Past 72 Hours 04/03/18 01:50 Urine Culture - Final Urine, Clean Catch Streptococcus group D 04/03/18 00:01 Respiratory Panel (PCR) - Final Mucosa - Nose Laboratory Tests Past 24 Hrs 04/04/18 06:10 PT 30.9 H INR 3.0 Medical Necessity - Tobacco Use Smoking Status: Former smoker Assessment/Plan All Active Problems (Last Updated 03/08/18 @ 20:18 by Bonifacio Conway DO) Atrial fibrillation with RVR (Resolved) Metabolic alkalosis (Acute) Metabolic alkalosis (Acute) Altered mental status (Acute) Fall (Acute) Acute on chronic respiratory failure with hypercapnia (Acute) Hypokalemia (Resolved) Metabolic alkalosis with respiratory acidosis (Resolved) #1 acute on chronic combined respiratory failure-continue patient care including BiPAP at night #2 acute metabolic encephalopathy secondary to CO2 narcosis-resolved at this time #3 chronic atrial fibrillation-rate is controlled at this time #4 acute cystitis-patient will be maintained on oral antibiotics at this time, I do not feel she needs IV Rocephin, there are low numbers of bacteria on her urine culture, I think she only needs to be treated for maximum of 5 days. #5 chronic obstructive pulmonary disease #6 generalized debility secondary to multiple medical problems including COPD- PT and OT will see the patient, plan is for the patient to go to a residential facility for short-term rehab #7 pulmonary hypertension Code Visit Inpatient E&M: [id number] Subs Hosp L2
[2018-04-04] MEDS: Zolpidem Tartrate 5 MG Tablet PO (22:07)
[2018-04-04] MEDS: Citalopram 20 MG Tablet PO (22:08)
[2018-04-05] VITALS (9 sets, daily range): BP systolic 127–130; BP diastolic 71–82; PULSE 11–93; RESP 12–20; TEMP 36.4–36.9; O2SAT 95–99
[2018-04-05] MEDS: Ipratropium/Albuterol Sulfate 3 ML AMPUL.NEB INHALATION ×3 (04:10→10:34)
[2018-04-05 06:15] LABS: International Normalized Ratio 3.1; Prothrombin Time (Protime)PT. 31.8 SECONDS (11.7-14.9)
[2018-04-05] MEDS: 0.9% NaCl Peripheral Flush Adult/Peds IV (06:23)
[2018-04-05] MEDS: Cephalexin 500 MG Capsule PO (06:23)
[2018-04-05 07:06] LABS: Albumin, Serum 2.1 g/dL (3.2-5.0); BUN 27 mg/dL (7-18); BUN/Creat Ratio 38.7 RATIO (10-20); Calcium,Total 8.5 mg/dL (8.5-10.1); Chloride 93 mmol/L (98-107); EST Glomerular Filtration Rate 87 mL/min (>60); Est Glom Filt Rate - Afr Amer 106 mL/min (>60); Glucose 127 mg/dL (74-106); Phosphorus 4.4 mg/dL (2.5-4.9); Potassium 3.7 mmol/L (3.5-5.1); Sodium Level 139 mmol/L (136-145)
[2018-04-05] MEDS: Furosemide 40 MG Tablet PO (09:19)
[2018-04-05] MEDS: Citalopram 20 MG Tablet PO (09:19)
[2018-04-05] MEDS: Senna/Docusate Sodium 1 Tablet 2 TABLET PO (09:19)
[2018-04-05] MEDS: Atenolol 50 MG Tablet PO (09:20)
--- NOTE | 2018-04-05 10:46 | PCM.PROGNOTE ---
Patient Problems: Active and Suspected Problems (Last Updated 03/08/18 @ 20:18 by Bonifacio Conway DO) Altered mental status (Acute) Fall (Acute) Acute on chronic respiratory failure with hypercapnia (Acute) Subjective: Patient did well overnight. Patient did not like the BiPAP, but was able to tolerate with sleep. Patient reports subjective improvement in dyspnea this morning. Patient denies any pain. Patient still on supplemental oxygen. No bleeding complications are reported such as epistaxis, hemoptysis or melena. - Physical Exam General: Alert, Oriented x3, Cooperative, No apparent distress, - - Obese. Speaking in full sentences. HEENT: Atraumatic, PERRLA, EOMI, Normocephalic, - - No scleral icterus or injection noted. Oral: Moist Mucosa, No Gingival or Mucosal Lesions/ Ulcerations Neck: Supple, No JVD, No Nodes, Trachea Midline Lungs: No rhonchi, No wheeze, No rales, Diminished, - - Symmetric expansion. No dullness to percussion. Cardiovascular: Normal S1, Normal S2, Irregular Rate, Murmur, No rub noted, No Gallop Abdomen: Bowel Sounds Present, Soft, Non Tender, Non-Distended, Obese Extremities: No clubbing, No cyanosis, Capillary Refill Less than 3 Seconds, Edema Skin: - - Significant change compared to previous Musculoskeletal: No Tenderness to Palpation of Joints or Extremities Lymphatic: No Cervical, Supraclavicular, or Inguinal Adenopathy Neurological: Cranial nerves II-XII grossly intact, Neuro grossly intact, Motor Exam 5/5 strength throughout Psych/Mental Status: Alert and oriented to time, place, person, mood and affect Vital Signs Temp Pulse Resp BP Pulse Ox 36.9 C 87 18 127/71 H 95 04/05/18 09:15 04/05/18 09:15 04/05/18 09:15 04/05/18 09:15 04/05/18 09:15 Oxygen Flow Rate (L/min) 2 Oxygen Delivery Method Nasal Cannula Weight: 92.1 kg Body Mass Index (BMI) 31.3 Intake and Output for Last 24 Hours 04/03/18 04/04/18 04/05/18 23:59 23:59 23:59 Intake Total 1037 / 1037 970 / 970 100 / 100 Output Total 500 / 500 325 / 325 150 / 150 Balance 537 / 537 645 / 645 -50 / -50 Microbiology Past 72 Hours 04/03/18 01:50 Urine Culture - Final Urine, Clean Catch Streptococcus group D 04/03/18 00:01 Respiratory Panel (PCR) - Final Mucosa - Nose Laboratory Tests Past 24 Hrs 04/05/18 04/05/18 05:36 05:36 PT 31.8 H INR 3.1 Sodium 139 Potassium 3.7 Chloride 93 L Carbon Dioxide 43.0 H BUN 27 H Creatinine 0.70 Estim Creat Clear Calc 48.00 Est GFR (MDRD) Af Amer 106 Est GFR (MDRD) Non-Af 87 BUN/Creatinine Ratio 38.7 H Glucose 127 H Calcium 8.5 Phosphorus 4.4 Albumin 2.1 L Medical Necessity - Tobacco Use Smoking Status: Former smoker Assessment/Plan All Active Problems (Last Updated 03/08/18 @ 20:18 by Bonifacio Conway DO) Atrial fibrillation with RVR (Resolved) Metabolic alkalosis (Acute) Metabolic alkalosis (Acute) Altered mental status (Acute) Fall (Acute) Acute on chronic respiratory failure with hypercapnia (Acute) Hypokalemia (Resolved) Metabolic alkalosis with respiratory acidosis (Resolved) RECOMMENDATIONS: 1. Continue BiPAP nightly on discharge 2. Okay to transition to prednisone and wean over 12-14 days, continue bronchodilators and mucolytics. 3. Follow-up with primary manager camp as an outpatient in 2-4 weeks 4. Agree with continuing baseline Lasix therapy IMPRESSIONS: 1. Acute metabolic encephalopathy secondary to CO2 narcosis Patient appears to be mentating well at this time. Patient does have significant CO2 retention at baseline, but was compensated from a metabolic standpoint. Long discussion with patient about the use of BiPAP therapy in the setting of chronic respiratory failure. Patient does have an elevated carbon dioxide and may have an element of hypoventilation with sleep. She was able to tolerate BiPAP therapy overnight with subjective improvement in overall condition. Patient should continue with BiPAP with sleep indefinitely, or at least until seen by primary manager camp at [facility]. 2. Acute on chronic combined respiratory failure Likely multifactorial. There is some concern patient may have untreated sleep apnea, which could lead to decompensation. Patient is currently appropriately on IV steroids, bronchodilators and mucolytic's. Likely transition to prednisone therapy tomorrow. Okay to continue with mucolytic's and bronchodilators. 3. Chronic preserved ejection fraction CHF/paroxysmal A. fib Patient appears to be at her baseline at this time. Patient does have some lower extremity edema, but overall BNP is unimpressive. Agree with continuing with baseline diuretic therapy. We will continue to monitor. Patient can continue on baseline medical therapy. The use of BiPAP therapy overnight may improve patient's tolerance from a CHF standpoint for dietary indiscretions. 4. Advanced age/dyslipidemia/degenerative joint disease/multiple admissions/low functional capacity Complicates care, management, recovery and prognosis. Patient is aware that her daughter does not want to honor her wishes for DNR Comfort Care arrest without intubation. Patient is very clear at this time that that is her wishes. Did discuss with the patient about a possible DPOA as a possible solution. Code Visit Inpatient E&M: [id number] Subs Hosp L2
--- NOTE | 2018-04-05 10:51 | PN_ITS ---
Patient Problems: Active and Suspected Problems (Last Updated 03/08/18 @ 20:18 by Bonifacio Conway DO ) Altered mental status (Acute) Fall (Acute) Acute on chronic respiratory failure with hypercapnia (Acute) Subjective: Patient did well overnight. Patient did not like the BiPAP, but was able to tolerate with sleep. Patient reports subjective improvement in dyspnea this morning. Patient denies any pain. Patient still on supplemental oxygen. No bleeding complications are reported such as epistaxis, hemoptysis or melena. - Physical Exam General: Alert, Oriented x3, Cooperative, No apparent distress, - - Obese. Speaking in full sentences. HEENT: Atraumatic, PERRLA, EOMI, Normocephalic, - - No scleral icterus or injection noted. Oral: Moist Mucosa, No Gingival or Mucosal Lesions/ Ulcerations Neck: Supple, No JVD, No Nodes, Trachea Midline Lungs: No rhonchi, No wheeze, No rales, Diminished, - - Symmetric expansion. No dullness to percussion. Cardiovascular: Normal S1, Normal S2, Irregular Rate, Murmur, No rub noted, No Gallop Abdomen: Bowel Sounds Present, Soft, Non Tender, Non-Distended, Obese Extremities: No clubbing, No cyanosis, Capillary Refill Less than 3 Seconds, Edema Skin: - - Significant change compared to previous Musculoskeletal: No Tenderness to Palpation of Joints or Extremities Lymphatic: No Cervical, Supraclavicular, or Inguinal Adenopathy Neurological: Cranial nerves II-XII grossly intact, Neuro grossly intact, Motor Exam 5/5 strength throughout Psych/Mental Status: Alert and oriented to time, place, person, mood and affect Vital Signs Temp Pulse Resp BP Pulse Ox 36.9 C 87 18 127/71 H 95 04/05/18 09:15 04/05/18 09:15 04/05/18 09:15 04/05/18 09:15 04/05/18 09:15 Oxygen Flow Rate (L/min) 2 Oxygen Delivery Method Nasal Cannula Weight: 92.1 kg Body Mass Index (BMI) 31.3 Intake and Output for Last 24 Hours 04/03/18 04/04/18 04/05/18 23:59 23:59 23:59 Intake Total 1037 / 1037 970 / 970 100 / 100 Output Total 500 / 500 325 / 325 150 / 150 Balance 537 / 537 645 / 645 -50 / -50 Microbiology Past 72 Hours 04/03/18 01:50 Urine Culture - Final Urine, Clean Catch Streptococcus group D 04/03/18 00:01 Respiratory Panel (PCR) - Final Mucosa - Nose Laboratory Tests Past 24 Hrs 04/05/18 04/05/18 05:36 05:36 PT 31.8 H INR 3.1 Sodium 139 Potassium 3.7 Chloride 93 L Carbon Dioxide 43.0 H BUN 27 H Creatinine 0.70 Estim Creat Clear Calc 48.00 Est GFR (MDRD) Af Amer 106 Est GFR (MDRD) Non-Af 87 BUN/Creatinine Ratio 38.7 H Glucose 127 H Calcium 8.5 Phosphorus 4.4 Albumin 2.1 L Medical Necessity - Tobacco Use Smoking Status: Former smoker Assessment/Plan All Active Problems (Last Updated 03/08/18 @ 20:18 by Bonifacio Conway DO) Atrial fibrillation with RVR (Resolved) Metabolic alkalosis (Acute) Metabolic alkalosis (Acute) Altered mental status (Acute) Fall (Acute) Acute on chronic respiratory failure with hypercapnia (Acute) Hypokalemia (Resolved) Metabolic alkalosis with respiratory acidosis (Resolved) RECOMMENDATIONS: 1. Continue BiPAP nightly on discharge 2. Okay to transition to prednisone and wean over 12-14 days, continue bronchodilators and mucolytics. 3. Follow-up with primary heart surgeon as an outpatient in 2-4 weeks 4. Agree with continuing baseline Lasix therapy IMPRESSIONS: 1. Acute metabolic encephalopathy secondary to CO2 narcosis Patient appears to be mentating well at this time. Patient does have significant CO2 retention at baseline, but was compensated from a metabolic standpoint. Long discussion with patient about the use of BiPAP therapy in the setting of chronic respiratory failure. Patient does have an elevated carbon dioxide and may have an element of hypoventilation with sleep. She was able to tolerate BiPAP therapy overnight with subjective improvement in overall condition. Patient should continue with BiPAP with sleep indefinitely, or at least until seen by primary heart surgeon at [facility]. 2. Acute on chronic combined respiratory failure Likely multifactorial. There is some concern patient may have untreated sleep apnea, which could lead to decompensation. Patient is currently appropriately on IV steroids, bronchodilators and mucolytic's. Likely transition to prednisone therapy tomorrow. Okay to continue with mucolytic's and bronchodilators. 3. Chronic preserved ejection fraction CHF/paroxysmal A. fib Patient appears to be at her baseline at this time. Patient does have some lower extremity edema, but overall BNP is unimpressive. Agree with continuing with baseline diuretic therapy. We will continue to monitor. Patient can continue on baseline medical therapy. The use of BiPAP therapy overnight may improve patient's tolerance from a CHF standpoint for dietary indiscretions. 4. Advanced age/dyslipidemia/degenerative joint disease/multiple admissions/ low functional capacity Complicates care, management, recovery and prognosis. Patient is aware that her daughter does not want to honor her wishes for DNR Comfort Care arrest without intubation. Patient is very clear at this time that that is her wishes. Did discuss with the patient about a possible DPOA as a possible solution. Code Visit Inpatient E&M: [id number] Subs Hosp L2
--- NOTE | 2018-04-05 11:05 | PCM.TXEXTCAR ---
- Diet 04/02/18 20:31 Diet: Regular Food consistency:: Regular Liquid Consistency:: Regular/Thin - Routine Orders/Code Status O2 Liters per Minute: 2 O2 Frequency: Continuous Routine Lab Work: INR - on 04/07/18, then weeekly Code Status: DNRCC-A - no intubation - Therapies Weight Bearing: Full weight bearing Physical Therapy: Eval and Treat Occupational Therapy: Eval and Treat Speech Therapy: Eval and Treat - Problem/Diagnosis (1) Chronic hypoxemic respiratory failure Status: Chronic Current Visit: No (2) Chronic anticoagulation Status: Chronic Current Visit: No (3) Chronic a-fib Status: Chronic Current Visit: Yes (4) Altered mental status Status: Acute Current Visit: Yes (5) Acute on chronic respiratory failure with hypercapnia Status: Acute Current Visit: Yes (6) COPD (chronic obstructive pulmonary disease) Status: Chronic Current Visit: No - Allergies/Procedures Done in Hospital Allergies/Adverse Reactions: Allergies amlodipine besylate [From [facility]] Adverse Reaction (Verified 03/08/18 17:57) ANKLE AND LEG EDEMA RESOLVED OFF MED-PER PCP PAPERWORK codeine Adverse Reaction (Verified 03/08/18 17:57) MENTAL STATUS CHANGE lisinopril Adverse Reaction (Verified 03/08/18 17:57) COUGH Procedures: None - Type of Care/Length of Stay Estimated LOS: Convalescent Care Less Than 30 days Type of Care Needed: Skilled Rehab Potential: Good Prognosis: Good - Additional Orders/Day of Discharge Additional Orders: Bipap at 12/4, rate of 12, oxygen at 25% H&P will serve as current which was dated: 04/02/18 Day of Discharge: 04/05/18 - Follow Up Care Primary Care Physician: José Perez MD [Primary Care Provider] -
--- NOTE | 2018-04-05 12:41 | CASEMGMT ---
Social Work: Patient's daughter is here to transport patient to [facility]. Orders and med list faxed. TC to Stacy at [facility]. Stacy is aware that patient will arrive soon. JOHNSON completed and copy in chart. PLAN: Patient to be discharged to [facility] for a skilled level of care. TRINI Palma
--- NOTE | 2018-04-08 16:42 | PCM.DC.SUM ---
Discharge Date and Diagnosis Date of Admission: 04/02/18 Date of Discharge: 04/05/18 - Primary Discharge Diagnosis 1 acute on chronic combined respiratory failure #2 acute metabolic encephalopathy secondary to CO2 narcosis #3 chronic atrial fibrillation #4 acute cystitis-Streptococcus group D #5 chronic obstructive pulmonary disease #6 generalized debility secondary to multiple medical problems including COPD #7 pulmonary hypertension - Secondary Discharge Diagnosis Chronic Problems (Last Updated 03/08/18 @ 20:18 by Bonifacio Conway DO) Diastolic dysfunction (Chronic) Chronic hypoxemic respiratory failure (Chronic) Chronic anticoagulation (Chronic) Heart failure with preserved ejection fraction (Chronic) Chronic a-fib (Chronic) Dyslipidemia (Chronic) COPD (chronic obstructive pulmonary disease) (Chronic) Hospital Course and Treatment Operations: None Procedures: None Summary of Care Provided: The patient is a 72 year old F who was seen in the emergency room at [facility] after being brought in by her family due to confusion. Workup in the emergency room included an EKG which showed her to be in A. fib at 77 with nonspecific changes, she had a history of atrial fibrillation in the past. ABG was performed and showed a pH of 7.42, PCO2 of 80.3 and a PO2 of 73 -this was on 2 L nasal cannula. Chemistry profile showed a potassium of 3.1, white blood cell count was 13.5, hemoglobin was 10.3, bilirubin was elevated at 1.1, INR was 2.3. Urinalysis was performed and showed 10-25 RBCs, 25-50 WBCs, squamous epithelial cells, and +2 bacteria. Patient was given IV antibiotics. Chest x-ray showed chronic changes, CT scan of the brain showed no acute disease. Patient was given albuterol and Atrovent aerosols, she was placed on BiPAP, she became more alert, discussions were carried out with the patient and she was adamant that she wanted to be a DNR comfort care arrest and not be intubated. Patient was admitted to ICU, she initially refused BiPAP but then BiPAP was applied and she was able to tolerate it. She was seen by critical care and her medications were adjusted. Patient's urine came back positive for strep with low numbers, her respiratory status improved and she was seen by PT and OT. Patient was transferred to PCU for continuing care, her respiratory status improved and her mentation improved markedly. On 04/05/18, patient was seen and examined felt to be stable for transfer to alf facility for further care. Home Medications: Medications to take at Discharge Ergocalciferol [Vitamin D] 50,000 unit PO TH 07/19/15 Warfarin [Coumadin] 5 mg PO SUMOTUTHFRSA 07/19/15 Atenolol [Tenormin (beta donna)] 50 mg PO BID 03/08/18 Warfarin Sodium 2.5 mg PO WE 03/08/18 Furosemide 40 mg PO BID #60 tab 03/11/18 Potassium Chloride [K-Dur] 20 meq PO DAILYCM #30 tab 03/11/18 Acetaminophen [Tylenol Tablet] 650 mg PO Q6H PRN PRN tablet 04/05/18 Albuterol Aerosols [Ventolin Aerosols] 2.5 mg INHALATION Q2H PRN PRN vial.neb. 04/05/18 Cephalexin [Keflex] 500 mg PO Q8 #5 capsule 04/05/18 Citalopram [Celexa] 20 mg PO BID tablet 04/05/18 Ipratropium/Albuterol Sulfate [Duoneb] 3 ml INHALATION Q4H.RT ampul.neb 04/05/18 Prednisone 40 mg PO UD #1 tab 04/05/18 Senna/Docusate Sodium [Senokot-S] 2 tablet PO BID tablet 04/05/18 Zolpidem Tartrate [Ambien] 5 mg PO QHS PRN 10 Days #10 tab 04/05/18 Following Prescrptions Were Given to Patient: Prednisone 40 mg PO UD #1 tab Zolpidem Tartrate [Ambien] 5 mg PO QHS PRN 10 Days #10 tab PRN Reason: Sleep Primary Care Physician: José Perez MD [Primary Care Provider] - Disposition: Shelter facility Minutes spent on discharge:: 34 Patient Condition:: Stable Medical Necessity - Tobacco Use Smoking Status: Former smoker Meaningful Use Info Meaningful Use Diagnoses (Choose all that apply): None applicable Code Visit Inpatient E&M: 01825 Disch Hosp
--- NOTE | 2018-04-08 16:48 | DS.PCM_ITS ---
Discharge Date and Diagnosis Date of Admission: 04/02/18 Date of Discharge: 04/05/18 - Primary Discharge Diagnosis 1 acute on chronic combined respiratory failure #2 acute metabolic encephalopathy secondary to CO2 narcosis #3 chronic atrial fibrillation #4 acute cystitis-Streptococcus group D #5 chronic obstructive pulmonary disease #6 generalized debility secondary to multiple medical problems including COPD #7 pulmonary hypertension - Secondary Discharge Diagnosis Chronic Problems (Last Updated 03/08/18 @ 20:18 by Bonifacio Conway DO) Diastolic dysfunction (Chronic) Chronic hypoxemic respiratory failure (Chronic) Chronic anticoagulation (Chronic) Heart failure with preserved ejection fraction (Chronic) Chronic a-fib (Chronic) Dyslipidemia (Chronic) COPD (chronic obstructive pulmonary disease) (Chronic) Hospital Course and Treatment Operations: None Procedures: None Summary of Care Provided: The patient is a 72 year old F who was seen in the emergency room at [facility] after being brought in by her family due to confusion. Workup in the emergency room included an EKG which showed her to be in A. fib at 77 with nonspecific changes, she had a history of atrial fibrillation in the past. ABG was performed and showed a pH of 7.42, PCO2 of 80.3 and a PO2 of 73 - this was on 2 L nasal cannula. Chemistry profile showed a potassium of 3.1, white blood cell count was 13.5, hemoglobin was 10.3, bilirubin was elevated at 1.1, INR was 2.3. Urinalysis was performed and showed 10-25 RBCs, 25-50 WBCs, squamous epithelial cells, and +2 bacteria. Patient was given IV antibiotics. Chest x-ray showed chronic changes, CT scan of the brain showed no acute disease. Patient was given albuterol and Atrovent aerosols, she was placed on BiPAP, she became more alert, discussions were carried out with the patient and she was adamant that she wanted to be a DNR comfort care arrest and not be intubated. Patient was admitted to ICU, she initially refused BiPAP but then BiPAP was applied and she was able to tolerate it. She was seen by critical care and her medications were adjusted. Patient's urine came back positive for strep with low numbers, her respiratory status improved and she was seen by PT and OT. Patient was transferred to PCU for continuing care, her respiratory status improved and her mentation improved markedly. On 04/05/18, patient was seen and examined felt to be stable for transfer to detention facility for further care. Home Medications: Medications to take at Discharge Ergocalciferol [Vitamin D] 50,000 unit PO TH 07/19/15 Warfarin [Coumadin] 5 mg PO SUMOTUTHFRSA 07/19/15 Atenolol [Tenormin (beta donna)] 50 mg PO BID 03/08/18 Warfarin Sodium 2.5 mg PO WE 03/08/18 Furosemide 40 mg PO BID #60 tab 03/11/18 Potassium Chloride [K-Dur] 20 meq PO DAILYCM #30 tab 03/11/18 Acetaminophen [Tylenol Tablet] 650 mg PO Q6H PRN PRN tablet 04/05/18 Albuterol Aerosols [Ventolin Aerosols] 2.5 mg INHALATION Q2H PRN PRN vial.neb. 04/05/18 Cephalexin [Keflex] 500 mg PO Q8 #5 capsule 04/05/18 Citalopram [Celexa] 20 mg PO BID tablet 04/05/18 Ipratropium/Albuterol Sulfate [Duoneb] 3 ml INHALATION Q4H.RT ampul.neb Prednisone 40 mg PO UD #1 tab 04/05/18 Senna/Docusate Sodium [Senokot-S] 2 tablet PO BID tablet 04/05/18 Zolpidem Tartrate [Ambien] 5 mg PO QHS PRN 10 Days #10 tab 04/05/18 Following Prescrptions Were Given to Patient: Prednisone 40 mg PO UD #1 tab Zolpidem Tartrate [Ambien] 5 mg PO QHS PRN 10 Days #10 tab PRN Reason: Sleep Primary Care Physician: José Perez MD [Primary Care Provider] - Disposition: [facility] facility Minutes spent on discharge:: 34 Patient Condition:: Stable Medical Necessity - Tobacco Use Smoking Status: Former smoker Meaningful Use Info Meaningful Use Diagnoses (Choose all that apply): None applicable Code Visit Inpatient E&M: 81808 Disch Hosp
== END 2018-04-05 12:56 | disposition skilled nursing facility (03) | DRG 189 ==
LOC: ED 18:25 → ICU 21:18 → PCU 04-03 13:26
PROVIDERS: Internal Medicine Critical Care Medicine; Admitting Provider Internal Medicine; Emergency Provider Emergency Medicine; Family Provider Family Medicine; PCP Family Medicine; Visit Provider Internal Medicine
DX: J96.22 Acute and chronic respiratory failure with hypercapnia (principal); G93.41 Metabolic encephalopathy; J44.1 Chronic obstructive pulmonary disease with (acute) exacerbation; N30.00 Acute cystitis without hematuria; I50.32 Chronic diastolic (congestive) heart failure; J96.21 Acute and chronic respiratory failure with hypoxia; E78.5 Hyperlipidemia, unspecified; I48.2 Chronic atrial fibrillation; B95.2 Enterococcus as the cause of diseases classified elsewhere; I27.20 Pulmonary hypertension, unspecified; Z87.891 Personal history of nicotine dependence; Z79.01 Long term (current) use of anticoagulants; Z86.718 Personal history of other venous thrombosis and embolism; I11.0 Hypertensive heart disease with heart failure; J44.9 Chronic obstructive pulmonary disease, unspecified; R53.81 Other malaise; M19.90 Unspecified osteoarthritis, unspecified site
CPT/HCPCS: 36415; 36600; 70450; 71045; 80048; 80069; 80076; 81001; 82550; 82803; 83605; 83880; 84484; 85025; 85027; 85610; 87077; 87086; 87088; 87633; 93005; 94002; 94003; 94640; 94667; 94668; 97116; 97162; 97166; 97530; 97802; 99251; 99285; J7050; P9612; A4216; G0463

== ENCOUNTER → 2018-05-07 15:26 | Outpatient (CLI) | payer MEDICARE, SELFPAY ==
[2018-05-07 16:02] LABS: Prothrombin Time (Protime)PT. 44.2 SECONDS (11.7-14.9)
[2018-05-07 16:24] LABS: International Normalized Ratio 4.6
== END ==
PROVIDERS: Family Provider Family Medicine; PCP Family Medicine
DX: I26.09 Other pulmonary embolism with acute cor pulmonale (principal)
CPT/HCPCS: 85610

== ENCOUNTER → 2018-05-08 15:34 | Outpatient (CLI) | payer MEDICARE, SELFPAY ==
[2018-05-08 16:15] LABS: Prothrombin Time (Protime)PT. 40.3 SECONDS (11.7-14.9)
[2018-05-08 16:34] LABS: International Normalized Ratio 4.1
== END ==
PROVIDERS: Family Provider Family Medicine; PCP Family Medicine; Referring Provider Family Medicine
DX: I26.09 Other pulmonary embolism with acute cor pulmonale (principal); Z79.01 Long term (current) use of anticoagulants
CPT/HCPCS: 85610

== ENCOUNTER → 2018-05-11 16:17 | Outpatient (CLI) | payer MEDICARE, SELFPAY ==
[2018-05-11 16:46] LABS: International Normalized Ratio 1.7; Prothrombin Time (Protime)PT. 19.8 SECONDS (11.7-14.9)
== END ==
PROVIDERS: Family Provider Family Medicine; PCP Family Medicine; Referring Provider Family Medicine; Visit Provider Family Medicine
DX: I26.09 Other pulmonary embolism with acute cor pulmonale (principal); Z79.01 Long term (current) use of anticoagulants
CPT/HCPCS: 85610

== ENCOUNTER 2018-05-23 16:02 | Inpatient (IN) | payer MEDICARE, SELFPAY ==
[2018-05-23] VITALS (10 sets, daily range): BP systolic 105–120; BP diastolic 61–71; PULSE 102–115; RESP 12–34; TEMP 36.6–36.8; O2SAT 96–100; BMI 33.0; BMI 32.8
--- NOTE | 2018-05-23 16:14 | EKG12_ITS ---
Test Reason : SOB Blood Pressure : / mmHG Vent. Rate : 111 BPM Atrial Rate : 220 BPM P-R Int : 000 ms QRS Dur : 072 ms QT Int : 376 ms P-R-T Axes : 000 072 070 degrees QTc Int : 511 ms Atrial fibrillation with rapid ventricular response with premature ventricular or aberrantly conducte d complexes Abnormal ECG Confirmed by CARLIE BHAT, KATELYN ([id number]), editor newspaper BANG URBINA ([id number]) on 05/24/2018 3:50:26 PM Referred By: Anushka Boone Confirmed By:KATELYN SEXTON MD
--- NOTE | 2018-05-23 16:14 | RAD_ITS ---
STUDY: X-RAY CHEST REASON FOR EXAM: Female, 72 years old. Short of breath and COPD TECHNIQUE: PA and lateral COMPARISON: April 02, 2018. FINDINGS: There is interstitial prominence most pronounced in the lower lobes. There is no demonstrated pleural abnormality. Normal size heart. Normal mediastinum and betty. Normal visualized pulmonary arteries. Normal visualized aortic arch and descending thoracic aorta. Dorsal spine demonstrates scoliosis and degenerative change. Normal visualized ribs, clavicles, and shoulders. There is no demonstrated abnormality of the visualized soft tissue structures of the upper abdomen. No significant changes since prior study RAD/Chest PA and Lateral IMPRESSION: Mild chronic interstitial changes at the lung bases. No acute disease Electronically Signed: Ken Weaver MD at 17:51 EST , Service support ,
[2018-05-23] MEDS: Ipratropium/Albuterol Sulfate 3 ML AMPUL.NEB INHALATION ×2 (16:31→21:00)
[2018-05-23] MEDS: Albuterol 2.5 MG/3 ML VIAL.NEB. INHALATION (16:31)
[2018-05-23 16:53] LABS: Absolute Lymphocyte Count 1.45 X10^3/ul (0.83-4.51); Absolute Neutrophil Count 7.6 X10^3/uL (2.0-7.7); Basophil# 0.01 X10^3/uL; Basophil% 0.1 % (0-1); Hematocrit 33.3 % (37-47); Hemoglobin 9.6 g/dl (12.0-15.0); Lymphocyte # 1.45 X10^3/ul (4.0); Lymphocyte % 14.4 % (19-41); Mean Corp Hgb Conc 28.8 g/gl (32-36); Mean Corpuscular Hgb 25.9 pg (27.0-32.0); Mean Corpuscular Volume 89.8 fL (81-99); Mean Platelet Vol. 11.8 fl (6.2-12.0); Monocyte# 0.79 X10^3/uL; Monocyte% 7.9 % (0-10); Neutrophil # 7.59 X10^3/uL (2.7-7.7); Neutrophil % 75.4 % (47-70); Platelet Count 295 K/mm3 (150-450); RBC Distribution Width CV 17.1 % (11.6-14.6); RBC Distribution Width SD 56.4 fl (35.1-43.9); Red Blood Count 3.71 M/mm3 (4.2-5.4); White Blood Count 10.1 K/mm3 (4.4-11.0)
[2018-05-23 16:55] LABS: POSITIVE COUNT NO; POSITIVE DIFFERENTIAL NO; POSITIVE MORPHOLOGY NO
[2018-05-23 17:08] LABS: Anion Gap 5 (5-15); BUN 14 mg/dL (7-18); BUN/Creat Ratio 18.6 RATIO (10-20); Calcium,Total 8.9 mg/dL (8.5-10.1); Chloride 98 mmol/L (98-107); Creatinine, Serum 0.75 mg/dL (0.55-1.02); EST Glomerular Filtration Rate 80 mL/min (>60); Est Glom Filt Rate - Afr Amer 97 mL/min (>60); Glucose 85 mg/dL (74-106); Potassium 3.4 mmol/L (3.5-5.1); Sodium Level 143 mmol/L (136-145)
[2018-05-23 17:26] LABS: BNP,B-Type NATRIURETIC PEPTIDE 174.1 pg/mL (0-100)
--- NOTE | 2018-05-23 17:41 | CT_ITS ---
STUDY: CTA CHEST REASON FOR EXAM: Female, 72 years old. Short of breath and tachycardia RADIATION DOSAGE (If Supplied By Facility): CTDIvol = ( 16.72 ) mGy, DLP = ( 768.80 ) mGycm TECHNIQUE: The examination was performed with the intravenous administration of 100mL ml of Isovue 370 contrast material. Post-processing of the angiographic images was performed, with multiplanar reformation and 3D reconstruction. Individualized dose optimization techniques were used for this CT. COMPARISON: None. FINDINGS: Examination of the pulmonary arteries is limited due to motion artifact. Normal enhancement of the main pulmonary artery and right and left pulmonary arteries. The interlobar and segmental vessels are well opacified and there is no definitive evidence for intraluminal clot. There are filling defects within the subsegmental vessels to the lower lobes most likely artifactual however cannot definitively exclude tiny pulmonary emboli Atherosclerotic changes of the aorta with mild aneurysmal dilatation of the ascending aorta measuring 4.1 x 3.55 cm There is no demonstrated aortic dissection. Heart is enlarged and there is mild coronary artery calcification Normal mediastinum. Normal hilar regions. Normal visualized trachea and bronchi. The lungs are well expanded. Nonspecific diffuse interstitial thickening most pronounced the mid and lower lung zones. No focal infiltration or pulmonary nodule. Normal pleura. Normal chest wall structures. Dorsal spine demonstrates moderate spondylosis Normal visualized upper abdomen. CT/CTA Chest W/WO Contrast IMPRESSION: COPD and superimposed ASHD.. Suboptimal study due to presence of motion artifact produced filling defects within the subsegmental vessels of the lower lobes however the possibility of tiny pulmonary emboli not excluded. Correlation with ventilation/perfusion scan and Doppler study of the deep venous system of lower extremities would be helpful for further assessment Electronically Signed: Ken Weaver MD at 19:02 EST , Service support ,
--- NOTE | 2018-05-23 19:30 | ED.DCSUM_ITS ---
- ER Visit Summary Date of Service: 05/23/18 Chief Complaint: Shortness of breath, wheezing that started 3 days prior to presentation History of Present Illness: The patient is a 72 F who presents with dyspnea, wheezing that started 3 days ago. She was seen at PCPs office. Sent to the ER for further evaluation. She reports increased swelling of her lower extremity over the past several days. She also reports orthopnea. There is a history of diastolic heart failure with a preserved EF, 64%. She denies fever but does complain of chills. She denies visual, ocular auditory symptoms. She does report sore throat. She denies chest pain, palpitations or rapid heartbeat. She denies abdominal pain, nausea, vomiting or diarrhea. She denies black or maroon stool. She denies dysuria, frequency, urgency or hematuria. She denies rash or any lesions. She denies headache, anesthesia, paresthesia motor weeks. She does complain of generalized weakness. She denies problems with bruising or bleeding. She denies urticaria or hives. Physical Examination: Patient appears tachypnic. Blood pressure is 119/71. Heart rate is 105. Monitor reveals atrial fibrillation respiratory rate 24-26 with a 96% saturation on oxygen. BMI is 33.0. HEENT exam is unremarkable. Heart is irregularly irregular and rapid. Lungs reveal diminished breath sounds bilaterally with wheezing bilaterally and rales on inspiration bilaterally. Abnormal respiratory sounds are noted greater on right than left. Abdomen is soft nontender. Back is nontender. There is pitting edema lower extremity with venous stasis changes. There is erythema and slight warmth however there is no induration, lymphangitis or lymphadenopathy. She is alert and oriented x3. Neuro exam is nonfocal. Test Results: Two-view chest x-ray interpreted by me as negative for any acute process. She does have chronic changes. Cardiac silhouette is normal. Mainstem is normal. EKG atrial fibrillation rate of 111 with a QRS duration of 72 ms QT interval is normal axis is normal white count is normal with an H&H 9.6 and 33.3. Electro panels marked for elevated CO2 of 40. Troponin is less than 0.015. BNP is slightly elevated 174. CTA was not optimal however there was no obvious pulmonary embolus. There is chronic changes noted consistent with COPD. There is no evidence of heart failure. Emergency Department Course and Treatment: Patient was treated with DuoNeb and albuterol. There is still wheezing noted throughout. She is still tachypneic at rest and minimal activity i.e. getting from her bed to a bedside commode patient becomes exceedingly dyspneic and heart rate increased to 130 on the monitor. Treatment Plan: Since pulmonary was has been worked ruled out and doubt this is left-sided heart failure will treat for exacerbation of COPD. Hospitalist has been paged for admission. Disposition: [facility] telemetry Impression: 1. Dyspnea 2. Exacerbation COPD with bronchospasm 3. A. fib with RVR 4. History of hypertension 5. Height history of hypercholesterolemia 6. Nonspecified anemia 7. Respiratory failure with chronic hypoxia This note was generated with [employer] dictation software. It may contain incorrect words, spelling, and punctuation that were not noted in review of the chart prior to signing ED Disposition - Plan for ED Patient: Chief Complaint: Shortness of Breath Referrals: José Perez MD [Primary Care Provider] -
--- NOTE | 2018-05-23 20:13 | HP.PCM_ITS ---
Problem List (1) COPD exacerbation Status: Acute (2) Acute and chronic respiratory failure with hypoxia Status: Acute (3) PAF (paroxysmal atrial fibrillation) Status: Chronic (4) Obesity (BMI 30.0-34.9) Status: Chronic (5) Former tobacco use Status: Chronic (6) Diastolic dysfunction Status: Chronic (7) Chronic hypoxemic respiratory failure Status: Chronic (8) Chronic anticoagulation Status: Chronic (9) Dyslipidemia Status: Chronic (10) COPD (chronic obstructive pulmonary disease) Status: Chronic Qualifiers: COPD type: unspecified COPD Qualified Code(s): J44.9 - Chronic obstructive pulmonary disease, unspecified History of Present Illness Date of Admission: 05/23/18 Chief Complaint: Dsypnea, URI sxs, Wheezing The patient is a 72 y/o F w/ PMHx: Chronic Normocytic Anemia, Chronic COPD w/ Chronic Hypoxic Respiratory Failure (2-3L), PAF on coumadin, History of PE/DVT on coumadin, Obesity, Anxiety and Depression, HTN, HLD, Former Tobacco use who presents to the [facility] ED on 05/23/18 with history of 3-5 days, minimally productive cough, intermittent worsening wheezing, progressively worsening dyspnea, more severe w/ any exertional attempts with notable sensation of elevated heart rate w/ any exertion. Her daughter had encouraged her to present to the ED earlier in her course but she had declined. Work-up in the ED included T 98.2, heart rate 105, respiratory rate 24, 98% on 2 L nasal cannula, CBC with W BC 10.1, heme globin 9.6, platelet 295 without market shift, BMP with potassium 3.4, carbon dioxide 40, BNP 174.1, trop < 0.015, EKG with sinus tachycardia, chest x-ray with chronic interstitial changes, CTPA with chronic COPD and superimposed ASHD changes with no obvious PE identified. In the ED patient administered prednisone 60 mg p.o. x1, DuoNeb, albuterol regimen. Given acute appearance of respiratory distress, requested BIPAP start w/ ABG which was also discussed with the ED. Past Medical History Past Medical History (Chronic Problems): Chronic Problems (Last Updated 03/08/18 @ 20:18 by Bonifacio Conway DO) PAF (paroxysmal atrial fibrillation) (Chronic) Obesity (BMI 30.0-34.9) (Chronic) Former tobacco use (Chronic) Diastolic dysfunction (Chronic) Chronic hypoxemic respiratory failure (Chronic) Chronic anticoagulation (Chronic) Heart failure with preserved ejection fraction (Chronic) Chronic a-fib (Chronic) Dyslipidemia (Chronic) COPD (chronic obstructive pulmonary disease) (Chronic) Medical History: Medical History (Last Updated 03/08/18 @ 20:18 by Bonifacio Conway DO) Dyslipidemia (Chronic) E78.5 COPD (chronic obstructive pulmonary disease) (Chronic) J44.9 Atrial fibrillation I48.91 COPD exacerbation J44.1 Heart failure with preserved ejection fraction I50.30 Group 2. EF 65% 18 Essential hypertension I10 History of DVT (deep vein thrombosis) Z86.718 History of pulmonary embolus (PE) Z86.711 Pulmonary HTN I27.20 Venous insufficiency I87.2 Hypokalemia (Resolved) E87.6 Metabolic alkalosis with respiratory acidosis (Resolved) E87.4 Allergies amlodipine besylate [From [facility]] Adverse Reaction (Verified 05/23/18 16:04) ANKLE AND LEG EDEMA RESOLVED OFF MED-PER PCP PAPERWORK codeine Adverse Reaction (Verified 05/23/18 16:04) MENTAL STATUS CHANGE lisinopril Adverse Reaction (Verified 05/23/18 16:04) COUGH Home Medications: Ambulatory Orders Medication Instructions Recorded Ergocalciferol [Vitamin D] 50,000 unit PO TH 07/19/15 Warfarin [Coumadin] 5 mg PO TU 07/19/15 Atenolol [Tenormin (beta donna)] 50 mg PO BID 03/08/18 Warfarin Sodium 2.5 mg PO SUMOWETHFRSA 03/08/18 Furosemide 40 mg PO BID #60 tab 03/11/18 Potassium Chloride [K-Dur] 20 meq PO DAILYCM #30 tab 03/11/18 Albuterol Aerosols [Ventolin 2.5 mg INHALATION Q2H PRN PRN 04/05/18 Aerosols] vial.neb. Ipratropium/Albuterol Sulfate 3 ml INHALATION Q4H.RT ampul.neb 04/05/18 [Duoneb] Acetaminophen [Tylenol Extra 1,000 mg PO PRN PRN 05/23/18 Strength] Ascorbic Acid [Vitamin C] 500 mg PO DAILY 05/23/18 Citalopram Hydrobromide 40 mg PO DAILY 05/23/18 [Citalopram HBr] Cyanocobalamin (Vitamin B-12) 500 mcg PO DAILY 05/23/18 [Vitamin B-12] Zolpidem Tartrate 10 mg PO QHS 05/23/18 Surgical History: Surgical History (Last Reviewed 03/08/18 @ 20:18 by Bonifacio Conway DO) History of cholecystectomy Z90.49 History of total hysterectomy Z90.710 tailbone surgery Surgical History: - - Hysterectomy, cholecystectomy, tailbone surgery. 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 Smoking Status: Former smoker - Patient smoked approximately 1/2 pack/day x 25 years quitting in 2000. Tobacco Use: Non-smoker Alcohol: Occasional Drugs: None - *Family History Maternal Family History: Family History (Last Reviewed 03/08/18 @ 20:19 by Bonifacio Conway DO) Sister Heart disease History Items: - - Patient notes a maternal history of dementia and stroke. Paternal Family History: Family History (Last Reviewed 03/08/18 @ 20:19 by Bonifacio Conway DO) Sister Heart disease History Items: - - Patient denies any marketed paternal family history including heart disease, diabetes, cancer. Sibling Family History: Family History (Last Reviewed 03/08/18 @ 20:19 by Bonifacio Conway DO) Sister Heart disease History Items: - - Patient notes a sibling specifically her sister with Parkinson's disease and heart disease as well as a brother with Parkinson's disease, asthma and history of blood clots. Review of Systems Constitutional: Reports: Malaise, Weakness, Fatigue. Denies: Chills, Fever, Weight Change HEENT: Denies: Head Aches, Sinus Congestion, Sinus Drainage Cardiovascular: Reports: Edema. Denies: Chest Pain, Palpitations Respiratory: Reports: Cough, Shortness of Breath, Shortness of breath at rest, Shortness of breath upon exertion, Wheezing. Denies: Sputum production Gastrointestinal: Denies: Abdominal Pain, Nausea, Vomiting Genitourinary: Denies: Dysuria Musculoskeletal: Reports: Joint Pain. Denies: Joint Tenderness Skin: Reports: Skin Changes. Denies: Rash, Wounds Neurological: Denies: Numbness, Tingling, Focal weakness Psychiatric: Reports: Anxiety, Depression. Denies: Homicidal Ideations, Suicidal Ideations Hematologic/ Lymphatic: Reports: Anemia, Easy Bruising, Easy Bleeding VTE Information - Inpt Only VTE Present on Admission: No VTE Mechan Device Prophylaxis: SCD's VTE Pharm Prophylaxis ordered?: No Reason prophylaxis not ordered:: Medical Contraindication - On coumadin, pending admission INR. Patient Problems: Active and Suspected Problems (Last Updated 03/08/18 @ 20:18 by Bonifacio Conway DO) COPD exacerbation (Acute) Acute and chronic respiratory failure with hypoxia (Acute) Subjective: Seated upright in the ED bed, increased work of breathing, accessory muscle usage, conversational dyspnea, obvious respiratory distress. Objective: Physical Examination: General: awake, alert, oriented x 3 and cooperative, seated upright in the ED bed, fatigued appearance, obvious respiratory distress. Skin: normal color, turgor, no icterus, cyanosis septum notable bilateral lower extremity chronic venous stasis skin changes with warmth, redness bilaterally, tenderness to palpation, worsened edema. HEENT: AT/NC, EOMI, PERRLA, mildly dry MM, no carotid bruits or JVD noted. Lungs: Diffusely diminished breath sounds, diffuse expiratory wheezing, increased effort, increased respiratory rate, accessory muscle usage, conversational dyspnea, obvious respiratory distress. Heart: Tachycardic with appearance of regular rhythm; no gallop, rub audible. Abdomen: soft, obese, NTTP, ND, normal BS, no HSM. Extremities: no cyanosis, clubbing, see skin. Neurological: patient awake, alert, oriented x 3; cognitive function intact; pupils equally reactive to light and accomodation; cranial nerves II-XII grossly normal, moving all 4 extremities, no focal deficits, strength fairly globally decreased secondary to acute presentation. Psychiatric: affect appears fatigued, no acute evidence of depressive or anxiety feelings. - Physical Exam Vital Signs Temp Pulse Resp BP Pulse Ox 98.2 F 102 H 24 H 105/61 100 05/23/18 16:04 05/23/18 19:10 05/23/18 19:10 05/23/18 19:10 05/23/18 19:10 Oxygen Flow Rate (L/min) 2 Oxygen Delivery Method Room Air Weight: 211 lb Body Mass Index (BMI) 33.0 Laboratory Tests Past 24 Hrs 05/23/18 05/23/18 05/23/18 16:30 16:30 16:30 WBC 10.1 RBC 3.71 L Hgb 9.6 L Hct 33.3 L MCV 89.8 MCH 25.9 L MCHC 28.8 L RDW 17.1 H RDW Differential 56.4 H Plt Count 295 MPV 11.8 Immature Gran % (Auto) 0.200 Neut % (Auto) 75.4 H Lymph % (Auto) 14.4 L [place] % (Auto) 7.9 Eos % (Auto) 2.0 Baso % (Auto) 0.1 Absolute Neuts (auto) 7.6 Absolute Lymphs (auto) 1.45 Total Counted Not Reportable Sodium 143 Potassium 3.4 L Chloride 98 Carbon Dioxide 40.0 H Anion Gap 5 BUN 14 Creatinine 0.75 Estim Creat Clear Calc 48.00 Est GFR (MDRD) Af Amer 97 Est GFR (MDRD) Non-Af 80 BUN/Creatinine Ratio 18.6 Glucose 85 Calcium 8.9 Troponin I < 0.015 B-Natriuretic Peptide 174.1 H Assessment/Plan All Active Problems (Last Updated 03/08/18 @ 20:18 by Bonifacio Conway DO) COPD exacerbation (Acute) Acute and chronic respiratory failure with hypoxia (Acute) Atrial fibrillation with RVR (Resolved) Metabolic alkalosis (Acute) Metabolic alkalosis (Acute) Altered mental status (Acute) Fall (Acute) Acute on chronic respiratory failure with hypercapnia (Acute) Hypokalemia (Resolved) Metabolic alkalosis with respiratory acidosis (Resolved) The patient is a 72 y/o F w/ PMHx: Chronic Normocytic Anemia, Chronic COPD w/ Chronic Hypoxic Respiratory Failure (2-3L), PAF on coumadin, History of PE/DVT on coumadin, Obesity, Anxiety and Depression, HTN, HLD, Former Tobacco use who presents to the [facility] ED on 05/23/18 with history of 3-5 days, minimally productive cough, intermittent worsening wheezing, progressively worsening dyspnea, more severe w/ any exertional attempts with notable sensation of elevated heart rate w/ any exertion. (1) Acute on chronic COPD exacerbation w/ Acute Hypoxic and Suspected Hypercapnic Respiratory Failure on Chronic Hypoxic Respiratory Failure: CXR w/ chronic changes, CTPA without acute findings, CBC on admission w/ no marked WBC elevation or shift and afebrile. Will admit to PR telemetry, will obtain ABG, will place on BIPAP given respiratory distress, transition to oxygen with wean as tolerated to home oxygen supplementation, continue ATC duonebs, PRN albuterol, IV methylprednisolone, HOB, IS parameters, pending sputum cultures and respiratory viral panel. (2) Hypokalemia: Admission K+ 3.4, supplementation given, repeat level in AM. (3) Chronic Normocytic Anemia, Vitamin B12 Deficiency: Admission Hgb 9.6, baseline Hgb 9-10, stable, repeat CBC in AM, vitamin B12 supplementation. (4) PAF: Sinus tachycardic upon presentation, continue home regimen Coumadin with INR trending, continue beta-donna therapy. (5) Anxiety and depression: Continue home citalopram regimen. (6) History of PE/DVT: Continue home coumadin w/ INR trending. (7) Hypertension: Continue home regimen including Lasix, metoprolol, PRN hydralazine. (8) Hyperlipidemia: Not on regimen. (9) Chronic Venous Stasis Disease: Notable BL LE increased edema, redness, warmth, likely secondary to recent decreased movement, seated upright in chair w/ dependent edema, will place snug CANDIE wraps elevated, dose lasix 40 mg IV x 1 and then transition back to her home regimen. (10) DVT Prophylaxis: SCDs, coumadin w/ INR trending. (11) CODE status: Daughter present, notes she has consistently requested noted status. Discussed CODE status at length including difference between FULL code, DNR-CCA and DNR-CC status. Following discussions about the differences in these status, confirmed DNR-CCA, no intubation status. Advanced Care Planning Face to Face Time: 16 minutes. Code Visit Inpatient E&M: 34413 Init Hosp L3 Procedures: 01274 Advncd Care Plan 30 Min
[2018-05-23] MEDS: predniSONE 20 MG Tablet 60 MG PO (20:26)
[2018-05-23 21:28] LABS: Magnesium 2.1 mg/dL (1.6-2.6)
[2018-05-23 21:37] LABS: International Normalized Ratio 2.1; Prothrombin Time (Protime)PT. 23.3 SECONDS (11.7-14.9)
[2018-05-23] MEDS: guaiFENesin 1,200 MG Tablet 1200 MG PO (22:15)
[2018-05-23] MEDS: Atenolol 50 MG Tablet PO (22:15)
[2018-05-23] MEDS: LORazepam 2 MG/ML Syringe 0.5 MG IV (22:15)
[2018-05-23] MEDS: Furosemide 40 MG/4 ML Vial IV (22:16)
[2018-05-23] MEDS: Zolpidem Tartrate 5 MG Tablet PO (22:16)
[2018-05-23] MEDS: 0.9% NaCl Peripheral Flush Adult/Peds IV (22:17)
[2018-05-23 23:26] LABS: Allen Test POS; Base Excess 22 mmol/L (-2 to +2); Bicarbonate 45.5 mmol/L (22-26); Blood Gas Specimen Type ART; EPAP 6; FI02 30; IPAP 12; PO2 90 mmHG (75-100); RR 12; SITE L Radial; SO2 97 % (95-99); Time Given 2311; Total Carbon Dioxide 47 mmol/L; pCO2 63.7 mmHg (35-45); pH 7.46 (7.35-7.45)
[2018-05-24] VITALS (25 sets, daily range): BP systolic 95–124; BP diastolic 62–80; PULSE 54–157; RESP 12–26; TEMP 36.3–37.1; O2SAT 94–100
[2018-05-24] MEDS: Ipratropium/Albuterol Sulfate 3 ML AMPUL.NEB INHALATION ×7 (00:05→23:05)
--- NOTE | 2018-05-24 00:29 | NURSING ---
PT EDUCATED ON SCD'S BUT PT REFUSED
[2018-05-24] MEDS: 0.9% NaCl Peripheral Flush Adult/Peds IV ×3 (05:36→21:20)
[2018-05-24 05:55] LABS: Prothrombin Time (Protime)PT. 22.4 SECONDS (11.7-14.9)
[2018-05-24 06:06] LABS: Anion Gap 7 (5-15); BUN 16 mg/dL (7-18); BUN/Creat Ratio 26.4 RATIO (10-20); Calcium,Total 8.4 mg/dL (8.5-10.1); Chloride 97 mmol/L (98-107); EST Glomerular Filtration Rate 103 mL/min (>60); Est Glom Filt Rate - Afr Amer 124 mL/min (>60); Glucose 170 mg/dL (74-106); Potassium 3.8 mmol/L (3.5-5.1); Sodium Level 141 mmol/L (136-145)
[2018-05-24 06:37] LABS: Absolute Lymphocyte Count 0.59 X10^3/ul (0.83-4.51); Basophil# 0.01 X10^3/uL; Basophil% 0.2 % (0-1); Hematocrit 31.4 % (37-47); Hemoglobin 9.4 g/dl (12.0-15.0); Lymphocyte # 0.59 X10^3/ul (4.0); Lymphocyte % 8.9 % (19-41); Mean Corp Hgb Conc 29.9 g/gl (32-36); Mean Corpuscular Hgb 26.5 pg (27.0-32.0); Mean Corpuscular Volume 88.5 fL (81-99); Mean Platelet Vol. 12.3 fl (6.2-12.0); Monocyte# 0.04 X10^3/uL; Monocyte% 0.6 % (0-10); Neutrophil # 5.97 X10^3/uL (2.7-7.7); Neutrophil % 90.1 % (47-70); Platelet Count 243 K/mm3 (150-450); RBC Distribution Width CV 16.8 % (11.6-14.6); RBC Distribution Width SD 53.5 fl (35.1-43.9); Red Blood Count 3.55 M/mm3 (4.2-5.4); White Blood Count 6.6 K/mm3 (4.4-11.0)
[2018-05-24 06:40] LABS: Differential Indicated SCAN CRITERIA MET; POSITIVE COUNT NO; POSITIVE DIFFERENTIAL YES; POSITIVE MORPHOLOGY NO
--- NOTE | 2018-05-24 08:31 | PCM.PN.HOSP ---
Patient Problems: Active and Suspected Problems (Last Updated 03/08/18 @ 20:18 by Bonifacio Conway DO) COPD exacerbation (Acute) Acute on chronic respiratory failure with hypercapnia (Acute) Subjective: breathing better. concerned as this is her 5th hospitalization since November. Vitals/I&O's: Vital Signs Temp Pulse Resp BP Pulse Ox 36.3 C L 54 L 18 105/62 94 05/24/18 05:38 05/24/18 07:53 05/24/18 07:53 05/24/18 05:38 05/24/18 07:53 Oxygen Flow Rate (L/min) 2 Oxygen Delivery Method Nasal Cannula Weight: 94.971 kg Body Mass Index (BMI) 32.8 Intake and Output for Last 24 Hours 05/22/18 05/23/18 05/24/18 23:59 23:59 23:59 Intake Total 130 / 130 Output Total 800 / 800 Balance -670 / -670 General: Alert, Cooperative, No apparent distress HEENT: Atraumatic, Normocephalic Oral: Moist Mucosa, No Gingival or Mucosal Lesions/ Ulcerations Neck: No Nodes, Thyroid Normal Size and Texture Lungs: Diminished, - - coarse breath sounds bilaterally. Cardiovascular: Regular rate, Regular Rhythm, Normal S1, Normal S2, No murmurs Abdomen: Bowel Sounds Present, Soft, Non Tender, Non-Distended, No Hepato-splenomegaly Extremities: No edema, No Calf Tenderness Skin: No rashes, No breakdown Psych/Mental Status: Normal Affect, Appropriate Laboratory Results 05/23/18 16:30: WBC 10.1, RBC 3.71 L, Hgb 9.6 L, Hct 33.3 L, MCV 89.8, MCH 25.9 L, MCHC 28.8 L, RDW 17.1 H, RDW Differential 56.4 H, Plt Count 295, MPV 11.8, Immature Gran % (Auto) 0.200, Neut % (Auto) 75.4 H, Lymph % (Auto) 14.4 L, [place] % (Auto) 7.9, Eos % (Auto) 2.0, Baso % (Auto) 0.1, Absolute Neuts (auto) 7.6, Absolute Lymphs (auto) 1.45, Total Counted Not Reportable 05/23/18 16:30: Sodium 143, Potassium 3.4 L, Chloride 98, Carbon Dioxide 40.0 H, Anion Gap 5, BUN 14, Creatinine 0.75, Estim Creat Clear Calc 48.00, Est GFR (MDRD) Af Amer 97, Est GFR (MDRD) Non-Af 80, BUN/Creatinine Ratio 18.6, Glucose 85, Calcium 8.9, Troponin I < 0.015 05/23/18 16:30: B-Natriuretic Peptide 174.1 H 05/23/18 16:30: PT 23.3 H, INR 2.1 05/23/18 16:30: Magnesium 2.1 05/23/18 23:15: Specimen Type ART, Sample Site L Radial, pH 7.46 H, Bicarbonate Actual 45.5 H, POC Total CO2 47, Base Excess 22 H, O2 Saturation 97, O2 % 30, ABG pCO2 63.7 H, ABG pO2 90, Mj Test POS, Respiration Rate 12, O2 Delivery Device Bi / C PAP, EPAP 6, IPAP 12, Blood Gas Notified Whom [facility] , Blood Gas Notified Time 2311 05/24/18 05:26: WBC 6.6, RBC 3.55 L, Hgb 9.4 L, Hct 31.4 L, MCV 88.5, MCH 26.5 L, MCHC 29.9 L, RDW 16.8 H, RDW Differential 53.5 H, Plt Count 243, MPV 12.3 H, Immature Gran % (Auto) 0.200, Neut % (Auto) 90.1 H, Lymph % (Auto) 8.9 L, [place] % (Auto) 0.6, Eos % (Auto) 0.0, Baso % (Auto) 0.2, Absolute Neuts (auto) 6.0, Absolute Lymphs (auto) 0.59 L, Total Counted Not Reportable 05/24/18 05:26: PT 22.4 H, INR 2.0 05/24/18 05:26: Sodium 141, Potassium 3.8, Chloride 97 L, Carbon Dioxide 37.0 H, Anion Gap 7, BUN 16, Creatinine 0.60, Estim Creat Clear Calc 48.00, Est GFR (MDRD) Af Amer 124, Est GFR (MDRD) Non-Af 103, BUN/Creatinine Ratio 26.4 H, Glucose 170 H, Calcium 8.4 L Current Medications Acetaminophen (Tylenol) 650 mg PO Q6H PRN PRN PRN Reason: Mild Pain (scale 0-3)/T>100.7 Al Hydroxide/Mg Hydroxide (Mylanta Ii) 30 ml PO Q6H PRN PRN PRN Reason: Gastric burning Albuterol Sulfate (Ventolin Aerosols) 2.5 mg INHALATION Q2H PRN PRN PRN Reason: SHORTNESS OF BREATH Albuterol/Ipratropium (Duoneb) 3 ml INHALATION Q4H.RT [facility] Last Admin: 05/24/18 07:53 Dose: 3 ml Atenolol (Tenormin (Beta [place])) 50 mg PO BID [facility] Last Admin: 05/23/18 22:15 Dose: 50 mg Citalopram Hydrobromide (Celexa) 40 mg PO DAILY [facility] Cyanocobalamin (Vitamin B12) 500 mcg PO DAILY [facility] Furosemide (Lasix) 40 mg PO BID [facility] Guaifenesin (Mucinex) 1,200 mg PO BID [facility] Last Admin: 05/23/18 22:15 Dose: 1,200 mg Lorazepam (Ativan) 0.5 mg IV Q4H PRN PRN PRN Reason: ANXIETY Last Admin: 05/23/18 22:15 Dose: 0.5 mg Magnesium Hydroxide (Milk Of Magnesia) 30 ml PO DAILY PRN PRN PRN Reason: Constipation Methylprednisolone (Solu-Medrol) 40 mg IV Q8 [facility] Last Admin: 05/24/18 05:36 Dose: 40 mg Ondansetron HCl (Zofran) 4 mg IV Q8H PRN PRN PRN Reason: NAUSEA Potassium Chloride (K-Dur) [facility] Promethazine HCl (Phenergan) 12.5 mg IV Q6H PRN PRN PRN Reason: NAUSEA/VOMITING Sodium Chloride () 5 - 30 ml IV UD PRN PRN Reason: SALINE FLUSH Last Admin: 05/24/18 05:36 Dose: 10 ml Warfarin Sodium (Coumadin (Pbkc)) 2.5 mg PO SuMoWeThFrSa@1700 [facility] Warfarin Sodium (Coumadin (Pbkc)) 5 mg PO Tu@1700 [facility] Zolpidem Tartrate (Ambien (Generic)) 5 mg PO QHS [facility] Last Admin: 05/23/18 22:16 Dose: 5 mg Medical Necessity - Tobacco Use Smoking Status: Former smoker Tobacco Use: Non-smoker Assessment/Plan All Active Problems (Last Updated 03/08/18 @ 20:18 by Bonifacio Conway DO) COPD exacerbation (Acute) Acute and chronic respiratory failure with hypoxia (Ruled-out) Atrial fibrillation with RVR (Resolved) Acute on chronic respiratory failure with hypercapnia (Acute) Hypokalemia (Resolved) Metabolic alkalosis with respiratory acidosis (Resolved) 1. Acute on chronic hypercapnic respiratory failure improved wean oxygen as tolerated home oxygen is 2L/min Pt concerned about frequent hospitalizations: March 2018: Acute on chronic resp failure, CO2 narcosis February 2018: HFpEF, Afib RVR January 2018: Afib RVR, HFpEF November 2017: Edema (CHF exac?) 2. acute exacerbation of COPD stable continue steroids and BDs no pneumonia of s/s CHF 3. HFpEF compensated at this time. continue Lasix, Atenolol no ACEi given allergy (subsequently excludes ARBs) 4. Afib atenolol anticoagulated on coumadin 5. DVT proph: anticoagulated Code Visit Inpatient E&M: 31867 Subs Hosp L2
--- NOTE | 2018-05-24 08:43 | PN_ITS ---
Patient Problems: Active and Suspected Problems (Last Updated 03/08/18 @ 20:18 by Bonifacio Conway DO) COPD exacerbation (Acute) Acute on chronic respiratory failure with hypercapnia (Acute) Subjective: breathing better. concerned as this is her 5th hospitalization since November. Vitals/I&O's: Vital Signs Temp Pulse Resp BP Pulse Ox 36.3 C L 54 L 18 105/62 94 05/24/18 05:38 05/24/18 07:53 05/24/18 07:53 05/24/18 05:38 05/24/18 07:53 Oxygen Flow Rate (L/min) 2 Oxygen Delivery Method Nasal Cannula Weight: 94.971 kg Body Mass Index (BMI) 32.8 Intake and Output for Last 24 Hours 05/22/18 05/23/18 05/24/18 23:59 23:59 23:59 Intake Total 130 / 130 Output Total 800 / 800 Balance -670 / -670 General: Alert, Cooperative, No apparent distress HEENT: Atraumatic, Normocephalic Oral: Moist Mucosa, No Gingival or Mucosal Lesions/ Ulcerations Neck: No Nodes, Thyroid Normal Size and Texture Lungs: Diminished, - - coarse breath sounds bilaterally. Cardiovascular: Regular rate, Regular Rhythm, Normal S1, Normal S2, No murmurs Abdomen: Bowel Sounds Present, Soft, Non Tender, Non-Distended, No Hepato- splenomegaly Extremities: No edema, No Calf Tenderness Skin: No rashes, No breakdown Psych/Mental Status: Normal Affect, Appropriate Laboratory Results 05/23/18 16:30: WBC 10.1, RBC 3.71 L, Hgb 9.6 L, Hct 33.3 L, MCV 89.8, MCH 25.9 L, MCHC 28.8 L, RDW 17.1 H, RDW Differential 56.4 H, Plt Count 295, MPV 11.8, Immature Gran % (Auto) 0.200, Neut % (Auto) 75.4 H, Lymph % (Auto) 14.4 L, [place] % (Auto) 7.9, Eos % (Auto) 2.0, Baso % (Auto) 0.1, Absolute Neuts (auto) 7.6, Absolute Lymphs (auto) 1.45, Total Counted Not Reportable 05/23/18 16:30: Sodium 143, Potassium 3.4 L, Chloride 98, Carbon Dioxide 40.0 H, Anion Gap 5, BUN 14, Creatinine 0.75, Estim Creat Clear Calc 48.00, Est GFR (MDRD) Af Amer 97, Est GFR (MDRD) Non-Af 80, BUN/Creatinine Ratio 18.6, Glucose 85, Calcium 8.9, Troponin I < 0.015 05/23/18 16:30: B-Natriuretic Peptide 174.1 H 05/23/18 16:30: PT 23.3 H, INR 2.1 05/23/18 16:30: Magnesium 2.1 05/23/18 23:15: Specimen Type ART, Sample Site L Radial, pH 7.46 H, Bicarbonate Actual 45.5 H, POC Total CO2 47, Base Excess 22 H, O2 Saturation 97, O2 % 30, ABG pCO2 63.7 H, ABG pO2 90, Jm Test POS, Respiration Rate 12, O2 Delivery Device Bi / C PAP, EPAP 6, IPAP 12, Blood Gas Notified Whom [facility] , Blood Gas Notified Time 2311 05/24/18 05:26: WBC 6.6, RBC 3.55 L, Hgb 9.4 L, Hct 31.4 L, MCV 88.5, MCH 26.5 L , MCHC 29.9 L, RDW 16.8 H, RDW Differential 53.5 H, Plt Count 243, MPV 12.3 H, Immature Gran % (Auto) 0.200, Neut % (Auto) 90.1 H, Lymph % (Auto) 8.9 L, [place] % (Auto) 0.6, Eos % (Auto) 0.0, Baso % (Auto) 0.2, Absolute Neuts (auto) 6.0, Absolute Lymphs (auto) 0.59 L, Total Counted Not Reportable 05/24/18 05:26: PT 22.4 H, INR 2.0 05/24/18 05:26: Sodium 141, Potassium 3.8, Chloride 97 L, Carbon Dioxide 37.0 H, Anion Gap 7, BUN 16, Creatinine 0.60, Estim Creat Clear Calc 48.00, Est GFR (MDRD) Af Amer 124, Est GFR (MDRD) Non-Af 103, BUN/Creatinine Ratio 26.4 H, Glucose 170 H, Calcium 8.4 L Current Medications Acetaminophen (Tylenol) 650 mg PO Q6H PRN PRN PRN Reason: Mild Pain (scale 0-3)/T>100.7 Al Hydroxide/Mg Hydroxide (Mylanta Ii) 30 ml PO Q6H PRN PRN PRN Reason: Gastric burning Albuterol Sulfate (Ventolin Aerosols) 2.5 mg INHALATION Q2H PRN PRN PRN Reason: SHORTNESS OF BREATH Albuterol/Ipratropium (Duoneb) 3 ml INHALATION Q4H.RT [facility] Last Admin: 05/24/18 07:53 Dose: 3 ml Atenolol (Tenormin (Beta [place])) 50 mg PO BID [facility] Last Admin: 05/23/18 22:15 Dose: 50 mg Citalopram Hydrobromide (Celexa) 40 mg PO DAILY [facility] Cyanocobalamin (Vitamin B12) 500 mcg PO DAILY [facility] Furosemide (Lasix) 40 mg PO BID [facility] Guaifenesin (Mucinex) 1,200 mg PO BID [facility] Last Admin: 05/23/18 22:15 Dose: 1,200 mg Lorazepam (Ativan) 0.5 mg IV Q4H PRN PRN PRN Reason: ANXIETY Last Admin: 05/23/18 22:15 Dose: 0.5 mg Magnesium Hydroxide (Milk Of Magnesia) 30 ml PO DAILY PRN PRN PRN Reason: Constipation Methylprednisolone (Solu-Medrol) 40 mg IV Q8 [facility] Last Admin: 05/24/18 05:36 Dose: 40 mg Ondansetron HCl (Zofran) 4 mg IV Q8H PRN PRN PRN Reason: NAUSEA Potassium Chloride (K-Dur) [facility] Promethazine HCl (Phenergan) 12.5 mg IV Q6H PRN PRN PRN Reason: NAUSEA/VOMITING Sodium Chloride () 5 - 30 ml IV UD PRN PRN Reason: SALINE FLUSH Last Admin: 05/24/18 05:36 Dose: 10 ml Warfarin Sodium (Coumadin (Pbkc)) 2.5 mg PO SuMoWeThFrSa@1700 [facility] Warfarin Sodium (Coumadin (Pbkc)) 5 mg PO Tu@1700 [facility] Zolpidem Tartrate (Ambien (Generic)) 5 mg PO QHS [facility] Last Admin: 05/23/18 22:16 Dose: 5 mg Medical Necessity - Tobacco Use Smoking Status: Former smoker Tobacco Use: Non-smoker Assessment/Plan All Active Problems (Last Updated 03/08/18 @ 20:18 by Bonifacio Conway DO) COPD exacerbation (Acute) Acute and chronic respiratory failure with hypoxia (Ruled-out) Atrial fibrillation with RVR (Resolved) Acute on chronic respiratory failure with hypercapnia (Acute) Hypokalemia (Resolved) Metabolic alkalosis with respiratory acidosis (Resolved) 1. Acute on chronic hypercapnic respiratory failure * improved * wean oxygen as tolerated * home oxygen is 2L/min * Pt concerned about frequent hospitalizations: * March 2018: Acute on chronic resp failure, CO2 narcosis * February 2018: HFpEF, Afib RVR * January 2018: Afib RVR, HFpEF * November 2017: Edema (CHF exac?) 2. acute exacerbation of COPD * stable * continue steroids and BDs * no pneumonia of s/s CHF 3. HFpEF * compensated at this time. * continue Lasix, Atenolol * no ACEi given allergy (subsequently excludes ARBs) 4. Afib * atenolol * anticoagulated on coumadin 5. DVT proph: anticoagulated Code Visit Inpatient E&M: 79193 Subs Hosp L2
[2018-05-24] MEDS: Citalopram 40 MG TABLET PO (09:14)
[2018-05-24] MEDS: Furosemide 40 MG Tablet PO (09:15)
[2018-05-24] MEDS: guaiFENesin 1,200 MG Tablet 1200 MG PO ×2 (09:16→21:21)
[2018-05-24] MEDS: Cyanocobalamin 500 MCG Tablet PO (09:16)
[2018-05-24] MEDS: Atenolol 50 MG Tablet PO ×2 (09:17→20:31)
--- NOTE | 2018-05-24 10:35 | CASEMGMT ---
RN CM Face to Face with patient for initial transition planning/care coordination assessment. RN CM introduced self and role at [facility]. Patient lying in bed, alert and oriented. Patient willing to participate in assessment and is able to answer all questions appropriately. Care providers, pharmacy, and demographics verified. Patient wishes to discharge either home with C or to [facility]. Patient had questions regarding biling and RN CM provided Patient Financial Service number and encouraged patient to fill out Medicaid application. Patient states she has no further needs or concerns at this time. CM to follow for discharge planning needs that may arise. PCP: Chris Specialists: Xu vehicle operator technician Preferred Pharmacy: [facility] Insurance: [facility] Prescription Benefit: [employer] Living Will/HPOA: No, declined information. LNOK: Daughter Living Arrangements: Patient lives alone in 1st floor apartment. Transportation: Daughter DME/HHC: Shower chair, raised toilet, [place] [facility] [place] Plan: TBD, will continue to monitor for needs. Chiara STOUT, RN, CM
[2018-05-24] MEDS: Magnesium Hydroxide 30 ML UDC PO (13:38)
--- NOTE | 2018-05-24 15:32 | CHAPLAIN ---
Type of Pastoral Visit _x__ Initial Visit ___ Follow-up Visit ___ On-call Visit ___ General Patient Visit ___ Spiritual Assessment ___ Family Conference ___ Bereavement ___ Rapid Response ___ Code Blue ___ Other (describe below) Pastoral Care Referral From _x__ Patient ___ Family ___ Nurse ___ Physician ___ Synchronous Motor Assembler ___ Exchange Administrator ___ Other (describe below) Sacrament/Intervention _x__ Active listening ___ Anointing ___ Holiness ___ Bereavement ___ Communion ___ Teresa exploration ___ _x__ Life review _x__ Prayer ___ Reconciliation ___ Sacrament of Sick _x__ Supportive presence ___ Wedding ___ Other (describe below) Pastoral Comments patient is a repeat from recent admissions to hospital; pt is lying in bed but is animated as she talks; pt shows some humor but admits that she gets discouraged about her health and future; nursing tech is also in room at this time; prayer welcomed; future visits welcomed
[2018-05-24] MEDS: Metoprolol Tartrate 5 MG/5 ML Vial IV (21:10)
[2018-05-24] MEDS: Zolpidem Tartrate 5 MG Tablet PO (21:49)
[2018-05-25] VITALS (16 sets, daily range): BP systolic 108–147; BP diastolic 60–91; PULSE 90–118; RESP 12–22; TEMP 36.4–37.1; O2SAT 94–98
[2018-05-25] MEDS: Ipratropium/Albuterol Sulfate 3 ML AMPUL.NEB INHALATION ×2 (02:59→07:18)
[2018-05-25] MEDS: 0.9% NaCl Peripheral Flush Adult/Peds IV ×3 (05:15→22:35)
[2018-05-25 06:26] LABS: International Normalized Ratio 2.2; Prothrombin Time (Protime)PT. 24.1 SECONDS (11.7-14.9)
[2018-05-25] MEDS: Acetaminophen 325 MG Tablet 650 MG PO ×2 (07:28→14:42)
[2018-05-25] MEDS: guaiFENesin 1,200 MG Tablet 1200 MG PO ×2 (08:29→22:35)
[2018-05-25] MEDS: Cyanocobalamin 500 MCG Tablet PO (08:29)
[2018-05-25] MEDS: Furosemide 40 MG Tablet PO (08:29)
[2018-05-25] MEDS: Atenolol 50 MG Tablet PO (08:29)
[2018-05-25] MEDS: Magnesium Hydroxide 30 ML UDC PO (09:26)
--- NOTE | 2018-05-25 09:46 | PCM.PN.HOSP ---
Patient Problems: Active and Suspected Problems (Last Updated 03/08/18 @ 20:18 by Bonifacio Conway DO) COPD exacerbation (Acute) Acute on chronic respiratory failure with hypercapnia (Acute) Subjective: had some bouts of SOB last night with tachycardia. Concerned about getting her home BiPAP. Vitals/I&O's: Vital Signs Temp Pulse Resp BP Pulse Ox 36.4 C L 110 H 20 H 130/74 H 94 05/25/18 08:30 05/25/18 08:30 05/25/18 08:30 05/25/18 08:30 05/25/18 08:30 Oxygen Flow Rate (L/min) 2 Oxygen Delivery Method Nasal Cannula Weight: 94.97 kg Body Mass Index (BMI) 32.8 Intake and Output for Last 24 Hours 05/23/18 05/24/18 05/25/18 23:59 23:59 23:59 Intake Total 130 / 130 500 / 500 Output Total 800 / 800 Balance -670 / -670 500 / 500 General: Alert, Cooperative, No apparent distress, - - up in chair. HEENT: Atraumatic, Normocephalic Oral: Moist Mucosa, No Gingival or Mucosal Lesions/ Ulcerations Neck: No Nodes, Thyroid Normal Size and Texture Lungs: No wheeze, Diminished Cardiovascular: Normal S1, Normal S2, Tachycardic Abdomen: Bowel Sounds Present, Soft, Non Tender, Non-Distended, Obese Extremities: No Calf Tenderness, Edema Skin: No rashes, No breakdown Psych/Mental Status: Appropriate, Anxious Microbiology Past 72 Hours 05/23/18 22:58 Mucosa - Nasopharyngeal Respiratory Panel (PCR) - Final Laboratory Results 05/25/18 06:06: PT 24.1 H, INR 2.2 Current Medications Acetaminophen (Tylenol) 650 mg PO Q6H PRN PRN PRN Reason: Mild Pain (scale 0-3)/T>100.7 Last Admin: 05/25/18 07:28 Dose: 650 mg Al Hydroxide/Mg Hydroxide (Mylanta Ii) 30 ml PO Q6H PRN PRN PRN Reason: Gastric burning Albuterol Sulfate (Ventolin Aerosols) 2.5 mg INHALATION Q2H PRN PRN PRN Reason: SHORTNESS OF BREATH Albuterol/Ipratropium (Duoneb) 3 ml INHALATION Q4H.RT [facility] Last Admin: 05/25/18 07:18 Dose: 3 ml Atenolol (Tenormin (Beta [place])) 50 mg PO BID [facility] Last Admin: 05/25/18 08:29 Dose: 50 mg Citalopram Hydrobromide (Celexa) 40 mg PO HS [facility] Cyanocobalamin (Vitamin B12) 500 mcg PO DAILY [facility] Last Admin: 05/25/18 08:29 Dose: 500 mcg Furosemide (Lasix) 40 mg PO BID [facility] Last Admin: 05/25/18 08:29 Dose: 40 mg Guaifenesin (Mucinex) 1,200 mg PO BID [facility] Last Admin: 05/25/18 08:29 Dose: 1,200 mg Lorazepam (Ativan) 0.5 mg IV Q4H PRN PRN PRN Reason: ANXIETY Last Admin: 05/23/18 22:15 Dose: 0.5 mg Magnesium Hydroxide (Milk Of Magnesia) 30 ml PO DAILY PRN PRN PRN Reason: Constipation Last Admin: 05/25/18 09:26 Dose: 30 ml Methylprednisolone (Solu-Medrol) 40 mg IV Q8 [facility] Last Admin: 05/25/18 05:14 Dose: 40 mg Ondansetron HCl (Zofran) 4 mg IV Q8H PRN PRN PRN Reason: NAUSEA Potassium Chloride (K-Dur) [facility] Last Admin: 05/25/18 08:17 Dose: 20 meq Promethazine HCl (Phenergan) 12.5 mg IV Q6H PRN PRN PRN Reason: NAUSEA/VOMITING Sodium Chloride () 5 - 30 ml IV UD PRN PRN Reason: SALINE FLUSH Last Admin: 05/25/18 05:15 Dose: 10 ml Warfarin Sodium (Coumadin (Pbkc)) 2.5 mg PO SuMoWeThFrSa@1700 [facility] Last Admin: 05/24/18 17:13 Dose: 2.5 mg Warfarin Sodium (Coumadin (Pbkc)) 5 mg PO Tu@1700 [facility] Zolpidem Tartrate (Ambien (Generic)) 5 mg PO QHS [facility] Last Admin: 05/24/18 21:49 Dose: 5 mg Medical Necessity - Tobacco Use Smoking Status: Former smoker Tobacco Use: Non-smoker Assessment/Plan All Active Problems (Last Updated 03/08/18 @ 20:18 by Bonifacio Conway DO) COPD exacerbation (Acute) Acute and chronic respiratory failure with hypoxia (Ruled-out) Atrial fibrillation with RVR (Resolved) Acute on chronic respiratory failure with hypercapnia (Acute) Hypokalemia (Resolved) Metabolic alkalosis with respiratory acidosis (Resolved) 1. Acute on chronic hypercapnic respiratory failure improved wean oxygen as tolerated home oxygen is 2L/min Pt concerned about frequent hospitalizations: March 2018: Acute on chronic resp failure, CO2 narcosis February 2018: HFpEF, Afib RVR January 2018: Afib RVR, HFpEF November 2017: Edema (CHF exac?) Patient concerned about BiPAP, which she states, Dr. Mcnair was to set up. Reviewed previous notes and was to follow up with her primary lumber stacker operator with Dr. Chavarria about setting this up. DW Dr. Cates who reiterated the same, and cannot be set up inpatient. 2. acute exacerbation of COPD stable continue steroids and BDs wean steroids no pneumonia of s/s CHF 3. HFpEF compensated at this time. continue Lasix, Atenolol no ACEi given allergy (subsequently excludes ARBs) 4. Afib with RVR atenolol anticoagulated on coumadin may be aggravated by albuterol DC duoneb and change to Atrovent increase atenolol to 75 BID 5. DVT proph: anticoagulated Code Visit Inpatient E&M: 06123 Subs Hosp L2
--- NOTE | 2018-05-25 09:50 | PN_ITS ---
Patient Problems: Active and Suspected Problems (Last Updated 03/08/18 @ 20:18 by Bonifacio Conway DO) COPD exacerbation (Acute) Acute on chronic respiratory failure with hypercapnia (Acute) Subjective: had some bouts of SOB last night with tachycardia. Concerned about getting her home BiPAP. Vitals/I&O's: Vital Signs Temp Pulse Resp BP Pulse Ox 36.4 C L 110 H 20 H 130/74 H 94 05/25/18 08:30 05/25/18 08:30 05/25/18 08:30 05/25/18 08:30 05/25/18 08:30 Oxygen Flow Rate (L/min) 2 Oxygen Delivery Method Nasal Cannula Weight: 94.97 kg Body Mass Index (BMI) 32.8 Intake and Output for Last 24 Hours 05/23/18 05/24/18 05/25/18 23:59 23:59 23:59 Intake Total 130 / 130 500 / 500 Output Total 800 / 800 Balance -670 / -670 500 / 500 General: Alert, Cooperative, No apparent distress, - - up in chair. HEENT: Atraumatic, Normocephalic Oral: Moist Mucosa, No Gingival or Mucosal Lesions/ Ulcerations Neck: No Nodes, Thyroid Normal Size and Texture Lungs: No wheeze, Diminished Cardiovascular: Normal S1, Normal S2, Tachycardic Abdomen: Bowel Sounds Present, Soft, Non Tender, Non-Distended, Obese Extremities: No Calf Tenderness, Edema Skin: No rashes, No breakdown Psych/Mental Status: Appropriate, Anxious Microbiology Past 72 Hours 05/23/18 22:58 Mucosa - Nasopharyngeal Respiratory Panel (PCR) - Final Laboratory Results 05/25/18 06:06: PT 24.1 H, INR 2.2 Current Medications Acetaminophen (Tylenol) 650 mg PO Q6H PRN PRN PRN Reason: Mild Pain (scale 0-3)/T>100.7 Last Admin: 05/25/18 07:28 Dose: 650 mg Al Hydroxide/Mg Hydroxide (Mylanta Ii) 30 ml PO Q6H PRN PRN PRN Reason: Gastric burning Albuterol Sulfate (Ventolin Aerosols) 2.5 mg INHALATION Q2H PRN PRN PRN Reason: SHORTNESS OF BREATH Albuterol/Ipratropium (Duoneb) 3 ml INHALATION Q4H.RT [facility] Last Admin: 05/25/18 07:18 Dose: 3 ml Atenolol (Tenormin (Beta [place])) 50 mg PO BID [facility] Last Admin: 05/25/18 08:29 Dose: 50 mg Citalopram Hydrobromide (Celexa) 40 mg PO HS [facility] Cyanocobalamin (Vitamin B12) 500 mcg PO DAILY [facility] Last Admin: 05/25/18 08:29 Dose: 500 mcg Furosemide (Lasix) 40 mg PO BID [facility] Last Admin: 05/25/18 08:29 Dose: 40 mg Guaifenesin (Mucinex) 1,200 mg PO BID [facility] Last Admin: 05/25/18 08:29 Dose: 1,200 mg Lorazepam (Ativan) 0.5 mg IV Q4H PRN PRN PRN Reason: ANXIETY Last Admin: 05/23/18 22:15 Dose: 0.5 mg Magnesium Hydroxide (Milk Of Magnesia) 30 ml PO DAILY PRN PRN PRN Reason: Constipation Last Admin: 05/25/18 09:26 Dose: 30 ml Methylprednisolone (Solu-Medrol) 40 mg IV Q8 [facility] Last Admin: 05/25/18 05:14 Dose: 40 mg Ondansetron HCl (Zofran) 4 mg IV Q8H PRN PRN PRN Reason: NAUSEA Potassium Chlor[facility] ([facility]-Dur) [facility] Last Admin: 05/25/18 08:17 Dose: 20 meq Promethazine HCl (Phenergan) 12.5 mg IV Q6H PRN PRN PRN Reason: NAUSEA/VOMITING Sodium Chloride () 5 - 30 ml IV UD PRN PRN Reason: SALINE FLUSH Last Admin: 05/25/18 05:15 Dose: 10 ml Warfarin Sodium (Coumadin (Pbkc)) 2.5 mg PO SuMoWeThFrSa@1700 [facility] Last Admin: 05/24/18 17:13 Dose: 2.5 mg Warfarin Sodium (Coumadin (Pbkc)) 5 mg PO Tu@1700 [facility] Zolpidem Tartrate (Ambien (Generic)) 5 mg PO QHS [facility] Last Admin: 05/24/18 21:49 Dose: 5 mg Medical Necessity - Tobacco Use Smoking Status: Former smoker Tobacco Use: Non-smoker Assessment/Plan All Active Problems (Last Updated 03/08/18 @ 20:18 by Bonifacio Conway DO) COPD exacerbation (Acute) Acute and chronic respiratory failure with hypoxia (Ruled-out) Atrial fibrillation with RVR (Resolved) Acute on chronic respiratory failure with hypercapnia (Acute) Hypokalemia (Resolved) Metabolic alkalosis with respiratory acidosis (Resolved) 1. Acute on chronic hypercapnic respiratory failure * improved * wean oxygen as tolerated * home oxygen is 2L/min * Pt concerned about frequent hospitalizations: * March 2018: Acute on chronic resp failure, CO2 narcosis * February 2018: HFpEF, Afib RVR * January 2018: Afib RVR, HFpEF * November 2017: Edema (CHF exac?) * Patient concerned about BiPAP, which she states, Dr. Mcnair was to set up. Reviewed previous notes and was to follow up with her primary design engineer agricultural equipment with Dr. Chavarria about setting this up. DW Dr. Cates who reiterated the same, and cannot be set up inpatient. 2. acute exacerbation of COPD * stable * continue steroids and BDs * wean steroids * no pneumonia of s/s CHF 3. HFpEF * compensated at this time. * continue Lasix, Atenolol * no ACEi given allergy (subsequently excludes ARBs) 4. Afib with RVR * atenolol * anticoagulated on coumadin * may be aggravated by albuterol * DC duoneb and change to Atrovent * increase atenolol to 75 BID 5. DVT proph: anticoagulated Code Visit Inpatient E&M: 16645 Subs Hosp L2
[2018-05-25] MEDS: Atenolol 25 MG Tablet PO (10:32)
[2018-05-25] MEDS: Ipratropium 0.5 MG/2.5 ML SOLUTION INHALATION ×4 (10:36→22:07)
--- NOTE | 2018-05-25 12:13 | CASEMGMT ---
Addendum entered by Chiara Stevens 05/25/18 14:06: SW received call from pt's daughter Irene requesting call back. SW placed a call back to Irene. YAO updated Irene that pt is agreeable to returning to [facility] at discharge and pt should be able to discharge over the weekend. YAO informed Irene that [facility] will most likely be in contact with her to assist in completing Medicaid application. Irene states understanding. Original Note: Social Work Note YAO and FLAVIO Callejas spoke with pt regarding discharge plans. Pt is agreeable to referral being made to [facility]. YAO faxed referral to [facility]. YAO spoke with Stacy at [facility]. Stacy states she is able to accept pt. YAO informed Stacy that the physician had mentioned possible discharge tomorrow. Stacy states that when pt was at [facility] last time she had spoken to pt and pt's daughter about completing Medicaid application. Stacy states that once pt returns to [facility] she will assist pt and pt's daughter with completed Medicaid application for pt. Plan: Pt to discharge to [facility] tomorrow Chiara Stevens FOREST RANGER,MOBILE PET GROOMER
--- NOTE | 2018-05-25 14:41 | CASEMGMT ---
Social Work Note SW completed [facility]. Placed on pt's chart with transportation form. Green sheet on chart. Plan: Discharge to [facility] tomorrow Chiara Stevens MSW, STENOGRAPHER SECRETARY
[2018-05-25] MEDS: Albuterol 2.5 MG/3 ML VIAL.NEB. INHALATION (18:28)
[2018-05-25] MEDS: Zolpidem Tartrate 5 MG Tablet PO (22:35)
[2018-05-25] MEDS: LORazepam 2 MG/ML Syringe 0.5 MG IV (22:35)
[2018-05-25] MEDS: Citalopram 40 MG TABLET PO (22:35)
[2018-05-25] MEDS: Atenolol 50 MG Tablet 75 MG PO (22:36)
[2018-05-26] VITALS (10 sets, daily range): BP systolic 124–128; BP diastolic 82–89; PULSE 83–122; RESP 18–24; TEMP 36.7–37; O2SAT 94–97
[2018-05-26] MEDS: Ipratropium 0.5 MG/2.5 ML SOLUTION INHALATION ×2 (05:55→11:17)
[2018-05-26] MEDS: 0.9% NaCl Peripheral Flush Adult/Peds IV (06:16)
[2018-05-26 08:44] LABS: Anion Gap 4 (5-15); BUN 28 mg/dL (7-18); BUN/Creat Ratio 38.7 RATIO (10-20); Calcium,Total 8.7 mg/dL (8.5-10.1); Chloride 100 mmol/L (98-107); Creatinine, Serum 0.72 mg/dL (0.55-1.02); EST Glomerular Filtration Rate 84 mL/min (>60); Est Glom Filt Rate - Afr Amer 101 mL/min (>60); Glucose 113 mg/dL (74-106); Magnesium 2.8 mg/dL (1.6-2.6); Potassium 4.6 mmol/L (3.5-5.1); Sodium Level 142 mmol/L (136-145)
[2018-05-26 09:00] LABS: International Normalized Ratio 2.1; Prothrombin Time (Protime)PT. 23.5 SECONDS (11.7-14.9)
[2018-05-26] MEDS: Albuterol 2.5 MG/3 ML VIAL.NEB. INHALATION (09:20)
--- NOTE | 2018-05-26 09:37 | CPS ---
pt c/o sob, Albuterol has been causing tachycardia so it was changed to q2prn, R.T. tried 1/2 dose Albuterol but it still increased her HR 32bpm.
[2018-05-26] MEDS: Furosemide 40 MG Tablet PO (10:09)
[2018-05-26] MEDS: guaiFENesin 1,200 MG Tablet 1200 MG PO (10:09)
[2018-05-26] MEDS: Atenolol 50 MG Tablet 75 MG PO (10:09)
[2018-05-26] MEDS: Cyanocobalamin 500 MCG Tablet PO (10:10)
--- NOTE | 2018-05-26 11:59 | PCM.TXEXTCAR ---
- Diet 05/23/18 20:54 Diet: Cardiac/Low Cholesterol Food consistency:: Regular Liquid Consistency:: Regular/Thin - Routine Orders/Code Status O2 Liters per Minute: 2 O2 Frequency: Continuous Keep PO Greater than or Equal to (%): 90 Routine Lab Work: INR - every Monday and Monday. Code Status: DNRCC-A - Therapies Weight Bearing: Full weight bearing Physical Therapy: Eval and Treat Occupational Therapy: Eval and Treat - Allergies/Procedures Done in Hospital Allergies/Adverse Reactions: Allergies amlodipine besylate [From [facility]] Adverse Reaction (Verified 05/23/18 16:04) ANKLE AND LEG EDEMA RESOLVED OFF MED-PER PCP PAPERWORK codeine Adverse Reaction (Verified 05/23/18 16:04) MENTAL STATUS CHANGE lisinopril Adverse Reaction (Verified 05/23/18 16:04) COUGH Procedures: None - Type of Care/Length of Stay Estimated LOS: Convalescent Care Less Than 30 days Type of Care Needed: Skilled Rehab Potential: Fair Prognosis: Fair - Additional Orders/Day of Discharge Additional Orders: BiPAP QHS Day of Discharge: 05/19/18 - Dietary and Speech Recommendations Dietitian Recommendations/Changes: Recommend diet change to cardiac/low-sodium w/ fluid restriction if indicated. - Follow Up Care Primary Care Physician: José Perez MD [Primary Care Provider] - Within 2 Weeks Please Follow Up With: Nas Chavarria MD When: 2-4 weeks
--- NOTE | 2018-05-26 12:03 | PCM.DC.SUM ---
Discharge Date and Diagnosis - Problem List Patient Problems: Active and Suspected Problems (Last Updated 03/08/18 @ 20:18 by Bonifacio Conway DO) COPD exacerbation (Acute) Acute on chronic respiratory failure with hypercapnia (Acute) Date of Admission: 05/23/18 Date of Discharge: 05/26/18 - Primary Discharge Diagnosis Active and Suspected Problems (Last Updated 03/08/18 @ 20:18 by Bonifacio Conway DO) COPD exacerbation (Acute) Acute on chronic respiratory failure with hypercapnia (Acute) 1. Acute on chronic hypercapnic respiratory failure improved wean oxygen as tolerated home oxygen is 2L/min Pt concerned about frequent hospitalizations: March 2018: Acute on chronic resp failure, CO2 narcosis February 2018: HFpEF, Afib RVR January 2018: Afib RVR, HFpEF November 2017: Edema (CHF exac?) Patient concerned about BiPAP, which she states, Dr. Mcnair was to set up. Reviewed previous notes and was to follow up with her primary mobile application development lead with Dr. Chavarria about setting this up. DW Dr. Cates who reiterated the same, and cannot be set up inpatient. 2. acute exacerbation of COPD stable continue steroids and BDs wean steroids no pneumonia of s/s CHF 3. HFpEF compensated at this time. continue Lasix, Atenolol no ACEi given allergy (subsequently excludes ARBs) 4. Afib with RVR improved atenolol anticoagulated on coumadin may be aggravated by albuterol DC duoneb and change to Atrovent increase atenolol to 75 BID 5. Anxiety: complicates care continue SSRI advised patient see counselor - Secondary Discharge Diagnosis Chronic Problems (Last Updated 03/08/18 @ 20:18 by Bonifacio Conway DO) PAF (paroxysmal atrial fibrillation) (Chronic) Obesity (BMI 30.0-34.9) (Chronic) Former tobacco use (Chronic) Diastolic dysfunction (Chronic) Chronic hypoxemic respiratory failure (Chronic) Chronic anticoagulation (Chronic) Heart failure with preserved ejection fraction (Chronic) Chronic a-fib (Chronic) Dyslipidemia (Chronic) COPD (chronic obstructive pulmonary disease) (Chronic) Hospital Course and Treatment Imaging Results: Clinical Impression(s) from Imaging Studies Chest X-Ray 05/23/18 16:14 IMPRESSION: Mild chronic interstitial changes at the lung bases. No acute disease Electronically Signed: Ken Weaver MD at 17:51 EST , Service support , Chest CTA 05/23/18 17:41 IMPRESSION: COPD and superimposed ASHD.. Suboptimal study due to presence of motion artifact produced filling defects within the subsegmental vessels of the lower lobes however the possibility of tiny pulmonary emboli not excluded. Correlation with ventilation/perfusion scan and Doppler study of the deep venous system of lower extremities would be helpful for further assessment Electronically Signed: Ken Weaver MD at 19:02 EST , Service support , Operations: None Procedures: None Summary of Care Provided: The patient is a 72 year old F presents with shortness of breath. For them to acute exacerbation of COPD and started on steroids bronc dilators. Patient did become tachycardic as well A. fib with RVR. Patient's atenolol was increased to 75 and patient's DuoNeb's were discontinued and changed over to Atrovent. Patient states he still feels short of breath even though her pulse ox is 97% on 2 L nasal cannula. I discussed the patient at length in regards to that she is overall better. Patient is very adamant about having a BiPAP. Patient has been present advised to get a BiPAP through her mobile application development lead, Dr. Chavarria, have sleep studies to get coordinated with her that way. Patient was able to get a BiPAP during her most recent hospitalization at the facility but when she was discharged from the facility the BiPAP returned to the [facility]. Patient feels that she should be able to get that now. Did discuss with case management and the reiterated the patient will need follow-up with her mobile application development lead and have the appropriate workup in order to get that. I did tell the patient that I feel the part of her issue may also be accompanied by her underlying anxiety. I did recommend counseling. Patient took issue with that but I did try to reassure her that I feel the bed to be benefit for her overall care that she may or may not follow up with counseling but I would advise her before overall mental health. The patient has issues with anxiety and coping. [] Patient Problems: Active and Suspected Problems (Last Updated 03/08/18 @ 20:18 by Bonifacio Conway DO) COPD exacerbation (Acute) Acute on chronic respiratory failure with hypercapnia (Acute) - Physical Exam General: Alert, Cooperative, No apparent distress HEENT: Atraumatic, Normocephalic Oral: Moist Mucosa, No Gingival or Mucosal Lesions/ Ulcerations Neck: No Nodes, Thyroid Normal Size and Texture Lungs: - - upper resp wheeze Cardiovascular: Regular rate, Regular Rhythm, Normal S1, Normal S2 Abdomen: Bowel Sounds Present, Soft, Non Tender, Non-Distended, No Hepato-splenomegaly Extremities: No edema, No Calf Tenderness Vital Signs Temp Pulse Resp BP Pulse Ox 36.7 C 96 24 H 124/82 H 94 05/26/18 10:05 05/26/18 11:17 05/26/18 11:17 05/26/18 10:05 05/26/18 10:33 Oxygen Flow Rate (L/min) 2 Oxygen Delivery Method Nasal Cannula Weight: 94.97 kg Body Mass Index (BMI) 32.8 Intake and Output for Last 24 Hours 05/24/18 05/25/18 05/26/18 23:59 23:59 23:59 Intake Total 130 / 130 500 / 500 Output Total 800 / 800 Balance -670 / -670 500 / 500 Microbiology Past 72 Hours 05/23/18 22:58 Respiratory Panel (PCR) - Final Mucosa - Nasopharyngeal Laboratory Tests Past 24 Hrs 05/26/18 05/26/18 07:53 07:53 PT 23.5 H INR 2.1 Sodium 142 Potassium 4.6 Chloride 100 Carbon Dioxide 38.0 H Anion Gap 4 L BUN 28 H Creatinine 0.72 Estim Creat Clear Calc 48.00 Est GFR (MDRD) Af Amer 101 Est GFR (MDRD) Non-Af 84 BUN/Creatinine Ratio 38.7 H Glucose 113 H Calcium 8.7 Magnesium 2.8 H Discharge Diet: Low fat/ Low Cholesterol Discharge Activity: Return to Normal Activity Call your doctor if you observe: Fever of 101 or Higher, Shortness of breath Home Medications: Medications to take at Discharge Ergocalciferol [Vitamin D] 50,000 unit PO TH 07/19/15 Warfarin [Coumadin] 5 mg PO TU 07/19/15 Warfarin Sodium 2.5 mg PO SUMOWETHFRSA 03/08/18 Furosemide 40 mg PO BID #60 tab 03/11/18 Potassium Chloride [K-Dur] 20 meq PO DAILYCM #30 tab 03/11/18 Albuterol Aerosols [Ventolin Aerosols] 2.5 mg INHALATION Q2H PRN PRN vial.neb. 04/05/18 Acetaminophen [Tylenol Extra Strength] 1,000 mg PO PRN PRN 05/23/18 Ascorbic Acid [Vitamin C] 500 mg PO DAILY 05/23/18 Citalopram Hydrobromide [Citalopram HBr] 40 mg PO DAILY 05/23/18 Cyanocobalamin (Vitamin B-12) [Vitamin B-12] 500 mcg PO DAILY 05/23/18 Atenolol [Tenormin (beta donna)] 75 mg PO BID tablet 05/26/18 Guaifenesin [Mucinex] 1,200 mg PO BID tablet 05/26/18 Ipratropium [Atrovent Aerosols] 0.5 mg INHALATION Q4H.RT solution 05/26/18 Mag Hydrox/Al Hydrox/Simeth [Mylanta II] 30 ml PO Q6H PRN PRN udc 05/26/18 Magnesium Hydroxide [Milk Of Magnesia] 30 ml PO DAILY PRN PRN udc 05/26/18 Prednisone 4 tab PO DAILY #20 tablet 05/26/18 Zolpidem Tartrate 10 mg PO QHS #2 tab 05/26/18 Following Prescrptions Were Given to Patient: Prednisone 4 tab PO DAILY #20 tablet Zolpidem Tartrate 10 mg PO QHS #2 tab Primary Care Physician: José Perez MD [Primary Care Provider] - Within 2 Weeks Please Follow Up With: Nas Chavarria MD When: 2-4 weeks Disposition: [facility] facility Minutes spent on discharge:: 32 Medical Necessity - Tobacco Use Smoking Status: Former smoker Tobacco Use: Non-smoker Meaningful Use Info Meaningful Use Diagnoses (Choose all that apply): None applicable Code Visit Inpatient E&M: 16121 Disch Hosp
--- NOTE | 2018-05-26 12:07 | DS.PCM_ITS ---
Discharge Date and Diagnosis - Problem List Patient Problems: Active and Suspected Problems (Last Updated 03/08/18 @ 20:18 by Bonifacio Conway DO) COPD exacerbation (Acute) Acute on chronic respiratory failure with hypercapnia (Acute) Date of Admission: 05/23/18 Date of Discharge: 05/26/18 - Primary Discharge Diagnosis Active and Suspected Problems (Last Updated 03/08/18 @ 20:18 by Bonifacio Conway DO) COPD exacerbation (Acute) Acute on chronic respiratory failure with hypercapnia (Acute) 1. Acute on chronic hypercapnic respiratory failure * improved * wean oxygen as tolerated * home oxygen is 2L/min * Pt concerned about frequent hospitalizations: * March 2018: Acute on chronic resp failure, CO2 narcosis * February 2018: HFpEF, Afib RVR * January 2018: Afib RVR, HFpEF * November 2017: Edema (CHF exac?) * Patient concerned about BiPAP, which she states, Dr. Mcnair was to set up. Reviewed previous notes and was to follow up with her primary corporate executive chef with Dr. Chavarria about setting this up. DW Dr. Cates who reiterated the same, and cannot be set up inpatient. 2. acute exacerbation of COPD * stable * continue steroids and BDs * wean steroids * no pneumonia of s/s CHF 3. HFpEF * compensated at this time. * continue Lasix, Atenolol * no ACEi given allergy (subsequently excludes ARBs) 4. Afib with RVR * improved * atenolol * anticoagulated on coumadin * may be aggravated by albuterol * DC duoneb and change to Atrovent * increase atenolol to 75 BID 5. Anxiety: * complicates care * continue SSRI * advised patient see counselor - Secondary Discharge Diagnosis Chronic Problems (Last Updated 03/08/18 @ 20:18 by Bonifacio Conway DO) PAF (paroxysmal atrial fibrillation) (Chronic) Obesity (BMI 30.0-34.9) (Chronic) Former tobacco use (Chronic) Diastolic dysfunction (Chronic) Chronic hypoxemic respiratory failure (Chronic) Chronic anticoagulation (Chronic) Heart failure with preserved ejection fraction (Chronic) Chronic a-fib (Chronic) Dyslipidemia (Chronic) COPD (chronic obstructive pulmonary disease) (Chronic) Hospital Course and Treatment Imaging Results: Clinical Impression(s) from Imaging Studies Chest X-Ray 05/23/18 16:14 IMPRESSION: Mild chronic interstitial changes at the lung bases. No acute disease Electronically Signed: Ken Weaver MD at 17:51 EST , Service support , Chest CTA 05/23/18 17:41 IMPRESSION: COPD and superimposed ASHD.. Suboptimal study due to presence of motion artifact produced filling defects within the subsegmental vessels of the lower lobes however the possibility of tiny pulmonary emboli not excluded. Correlation with ventilation/perfusion scan and Doppler study of the deep venous system of lower extremities would be helpful for further assessment Electronically Signed: Ken Weaver MD at 19:02 EST , Service support , Operations: None Procedures: None Summary of Care Provided: The patient is a 72 year old F presents with shortness of breath. For them to acute exacerbation of COPD and started on steroids bronc dilators. Patient did become tachycardic as well A. fib with RVR. Patient's atenolol was increased to 75 and patient's DuoNeb's were discontinued and changed over to Atrovent. Patient states he still feels short of breath even though her pulse ox is 97% on 2 L nasal cannula. I discussed the patient at length in regards to that she is overall better. Patient is very adamant about having a BiPAP. Patient has been present advised to get a BiPAP through her corporate executive chef, Dr. Chavarria, have sleep studies to get coordinated with her that way. Patient was able to get a BiPAP during her most recent hospitalization at the facility but when she was discharged from the facility the BiPAP returned to the [facility]. Patient feels that she should be able to get that now. Did discuss with case management and the reiterated the patient will need follow-up with her corporate executive chef and have the appropriate workup in order to get that. I did tell the patient that I feel the part of her issue may also be accompanied by her underlying anxiety. I did recommend counseling. Patient took issue with that but I did try to reassure her that I feel the bed to be benefit for her overall care that she may or may not follow up with counseling but I would advise her before overall mental health. The patient has issues with anxiety and coping. [] Patient Problems: Active and Suspected Problems (Last Updated 03/08/18 @ 20:18 by Bonifacio Conway DO) COPD exacerbation (Acute) Acute on chronic respiratory failure with hypercapnia (Acute) - Physical Exam General: Alert, Cooperative, No apparent distress HEENT: Atraumatic, Normocephalic Oral: Moist Mucosa, No Gingival or Mucosal Lesions/ Ulcerations Neck: No Nodes, Thyroid Normal Size and Texture Lungs: - - upper resp wheeze Cardiovascular: Regular rate, Regular Rhythm, Normal S1, Normal S2 Abdomen: Bowel Sounds Present, Soft, Non Tender, Non-Distended, No Hepato- splenomegaly Extremities: No edema, No Calf Tenderness Vital Signs Temp Pulse Resp BP Pulse Ox 36.7 C 96 24 H 124/82 H 94 05/26/18 10:05 05/26/18 11:17 05/26/18 11:17 05/26/18 10:05 05/26/18 10:33 Oxygen Flow Rate (L/min) 2 Oxygen Delivery Method Nasal Cannula Weight: 94.97 kg Body Mass Index (BMI) 32.8 Intake and Output for Last 24 Hours 05/24/18 05/25/18 05/26/18 23:59 23:59 23:59 Intake Total 130 / 130 500 / 500 Output Total 800 / 800 Balance -670 / -670 500 / 500 Microbiology Past 72 Hours 05/23/18 22:58 Respiratory Panel (PCR) - Final Mucosa - Nasopharyngeal Laboratory Tests Past 24 Hrs 05/26/18 05/26/18 07:53 07:53 PT 23.5 H INR 2.1 Sodium 142 Potassium 4.6 Chloride 100 Carbon Dioxide 38.0 H Anion Gap 4 L BUN 28 H Creatinine 0.72 Estim Creat Clear Calc 48.00 Est GFR (MDRD) Af Amer 101 Est GFR (MDRD) Non-Af 84 BUN/Creatinine Ratio 38.7 H Glucose 113 H Calcium 8.7 Magnesium 2.8 H Discharge Diet: Low fat/ Low Cholesterol Discharge Activity: Return to Normal Activity Call your doctor if you observe: Fever of 101 or Higher, Shortness of breath Home Medications: Medications to take at Discharge Ergocalciferol [Vitamin D] 50,000 unit PO TH 07/19/15 Warfarin [Coumadin] 5 mg PO 07/19/15 Warfarin Sodium 2.5 mg PO SUMOWETHFRSA 03/08/18 Furosemide 40 mg PO BID #60 tab 03/11/18 Potassium Chloride [K-Dur] 20 meq PO DAILYCM #30 tab 03/11/18 Albuterol Aerosols [Ventolin Aerosols] 2.5 mg INHALATION Q2H PRN PRN vial.neb. 04/05/18 Acetaminophen [Tylenol Extra Strength] 1,000 mg PO PRN PRN 05/23/18 Ascorbic Acid [Vitamin C] 500 mg PO DAILY 05/23/18 Citalopram Hydrobromide [Citalopram HBr] 40 mg PO DAILY 05/23/18 Cyanocobalamin (Vitamin B-12) [Vitamin B-12] 500 mcg PO DAILY 05/23/18 Atenolol [Tenormin (beta donna)] 75 mg PO BID tablet 05/26/18 Guaifenesin [Mucinex] 1,200 mg PO BID tablet 05/26/18 Ipratropium [Atrovent Aerosols] 0.5 mg INHALATION Q4H.RT solution 05/26/18 Mag Hydrox/Al Hydrox/Simeth [Mylanta II] 30 ml PO Q6H PRN PRN udc 05/26/18 Magnesium Hydroxide [Milk Of Magnesia] 30 ml PO DAILY PRN PRN udc 05/26/18 Prednisone 4 tab PO DAILY #20 tablet 05/26/18 Zolpidem Tartrate 10 mg PO QHS #2 tab 05/26/18 Following Prescrptions Were Given to Patient: Prednisone 4 tab PO DAILY #20 tablet Zolpidem Tartrate 10 mg PO QHS #2 tab Primary Care Physician: José Perez MD [Primary Care Provider] - Within 2 Weeks Please Follow Up With: Nas Chavarria MD When: 2-4 weeks Disposition: [facility] facility Minutes spent on discharge:: 32 Medical Necessity - Tobacco Use Smoking Status: Former smoker Tobacco Use: Non-smoker Meaningful Use Info Meaningful Use Diagnoses (Choose all that apply): None applicable Code Visit Inpatient E&M: 68662 Disch Hosp
--- NOTE | 2018-05-26 14:22 | NURSING ---
Called Report to [facility] at [facility] at this time.
== END 2018-05-26 13:51 | disposition skilled nursing facility (03) | DRG 189 ==
LOC: ED 16:29 → MS3 20:25
PROVIDERS: Internal Medicine; Admitting Provider Family Medicine; Emergency Provider Emergency Medicine; Family Provider Family Medicine; PCP Family Medicine; Referring Provider Family Medicine
DX: J96.22 Acute and chronic respiratory failure with hypercapnia (principal); J44.1 Chronic obstructive pulmonary disease with (acute) exacerbation; I50.30 Unspecified diastolic (congestive) heart failure; I48.0 Paroxysmal atrial fibrillation; I87.8 Other specified disorders of veins; Z66 Do not resuscitate; E78.5 Hyperlipidemia, unspecified; E66.9 Obesity, unspecified; I11.0 Hypertensive heart disease with heart failure; E87.6 Hypokalemia; F41.9 Anxiety disorder, unspecified; Z79.01 Long term (current) use of anticoagulants; Z87.891 Personal history of nicotine dependence; Z68.32 Body mass index [BMI] 32.0-32.9, adult; Z99.81 Dependence on supplemental oxygen; Z86.718 Personal history of other venous thrombosis and embolism; Z86.711 Personal history of pulmonary embolism; D64.9 Anemia, unspecified; E53.8 Deficiency of other specified B group vitamins
CPT/HCPCS: 36415; 36600; 71046; 71275; 80048; 82803; 83735; 83880; 84484; 85025; 85610; 87633; 93005; 94002; 94003; 94640; 94667; 94668; 97110; 97162; 97166; 97535; 99283; J7040; Q9967; A4216; J1940

== ENCOUNTER 2018-08-09 16:55 | Inpatient (IN) | payer MEDICARE, SELFPAY ==
[2018-08-09] VITALS (15 sets, daily range): BP systolic 85–117; BP diastolic 44–72; PULSE 86–133; RESP 16–29; TEMP 36.2–37; O2SAT 93–99; BMI 31.3; BMI 31.1
--- NOTE | 2018-08-09 17:20 | EKG12_ITS ---
Test Reason : SOB Blood Pressure : / mmHG Vent. Rate : 094 BPM Atrial Rate : 234 BPM P-R Int : 000 ms QRS Dur : 072 ms QT Int : 384 ms P-R-T Axes : 000 056 055 degrees QTc Int : 480 ms Atrial fibrillation Low voltage QRS (limb leads) Nonspecific ST abnormality Abnormal ECG Confirmed by MADISON BHAT, URSULA ([id number]), video news editor BANG URBINA ([id number] on 08/14/2018 3:02:00 PM Referred By: Ketan Brown Confirmed By:URSULA WALLACE MD
--- NOTE | 2018-08-09 17:25 | RAD_ITS ---
STUDY: X-RAY CHEST REASON FOR EXAM: Female, 72 years old. Acute shortness of breath TECHNIQUE: Single AP portable view of the chest. COMPARISON: 05/23/2018 FINDINGS: EKG leads overlie the chest Lungs are hyperexpanded with chronic interstitial changes, no superimposed acute pulmonary process. There is no demonstrated pleural abnormality. Normal size heart. Normal mediastinum and betty. Normal visualized pulmonary arteries. Normal visualized aortic arch and descending thoracic aorta. There are diffuse degenerative changes of the visualized thoracic spine. There is degenerative osteoarthritis of the bilateral shoulders. There is no demonstrated abnormality of the visualized soft tissue structures of the upper abdomen. RAD/Chest 1 View (Portable) IMPRESSION: Hyperexpanded lungs with chronic interstitial changes, no superimposed acute pulmonary process Electronically Signed: Jeremías Keane MD at 17:43 EST , Service support ,
[2018-08-09 17:29] LABS: Absolute Lymphocyte Count 1.47 X10^3/ul (0.83-4.51); Absolute Neutrophil Count 8.8 X10^3/uL (2.0-7.7); Basophil# 0.02 X10^3/uL; Basophil% 0.2 % (0-1); Eosinophil# 0.25 X10^3/uL; Eosinophils% 2.2 % (0-5); Hematocrit 34.2 % (37-47); Hemoglobin 9.7 g/dl (12.0-15.0); Lymphocyte # 1.47 X10^3/ul (4.0); Lymphocyte % 13.1 % (19-41); Mean Corp Hgb Conc 28.4 g/gl (32-36); Mean Corpuscular Hgb 25.1 pg (27.0-32.0); Mean Corpuscular Volume 88.4 fL (81-99); Mean Platelet Vol. 11.3 fl (6.2-12.0); Monocyte# 0.58 X10^3/uL; Monocyte% 5.2 % (0-10); Neutrophil # 8.83 X10^3/uL (2.7-7.7); Platelet Count 344 K/mm3 (150-450); RBC Distribution Width CV 15.9 % (11.6-14.6); RBC Distribution Width SD 51.4 fl (35.1-43.9); Red Blood Count 3.87 M/mm3 (4.2-5.4); White Blood Count 11.2 K/mm3 (4.4-11.0)
[2018-08-09] MEDS: MethylPREDNISolone 125 MG/2 ML Vial IV (17:30)
[2018-08-09 17:31] LABS: POSITIVE COUNT NO; POSITIVE DIFFERENTIAL NO; POSITIVE MORPHOLOGY NO
[2018-08-09 17:42] LABS: Anion Gap 4 (5-15); BUN 13 mg/dL (7-18); BUN/Creat Ratio 21.8 RATIO (10-20); Calcium,Total 8.7 mg/dL (8.5-10.1); Chloride 97 mmol/L (98-107); EST Glomerular Filtration Rate 105 mL/min (>60); Est Glom Filt Rate - Afr Amer 127 mL/min (>60); Glucose 85 mg/dL (74-106); Potassium 3.2 mmol/L (3.5-5.1); Sodium Level 141 mmol/L (136-145)
--- NOTE | 2018-08-09 17:45 | ED.DCSUM_ITS ---
- ER Visit Summary Date of Service: 08/09/18 Chief Complaint: Shortness of breath History of Present Illness: The patient is a 72 F who presents with shortness of breath. She has had this for 2 days. Her shortness of breath is worse with exertion. Better with oxygen. Patient has had a cough is been nonproductive of sputum. She has had chills without fevers. She has not had any chest pain. She does have pain in her back however. She wears 2 L of home oxygen. She does have a history of COPD and CHF. She is on Coumadin for history of atrial fibrillation. She has had an increase of leg swelling. She is also on Lasix as well. Physical Examination: Vital signs reviewed. HEENT exam unremarkable. Heart is irregularly irregular without murmurs. Lungs have respiratory and extra Tory wheezing throughout. Abdomen is soft and nontender. Back is nontender. Extremities reveal 1+ symmetric edema to the knees bilaterally. Neurologic exam is normal. Test Results: EKG is atrial fibrillation rate of 94. Nonspecific ST and T wave changes noted. Chest x-ray reveals COPD but no other acute findings. White blood cell count 11.2, hemoglobin 9.7. Potassium 3.2. BNP 235. Troponin normal Emergency Department Course and Treatment: Patient was placed on nasal cannula oxygen. She was given 1 neb and 2 albuterol treatments. She was also given Solu-Medrol. Upon reevaluation she became more tachycardic due to the treatments and respiratory rate was still around 30. I feel she should be admitted to the hospital for further treatment. She has been on BiPAP previously but I do not feel she requires it at this time. Patient was discussed with the hospitalist for admission Treatment Plan: [] Disposition: Admit Impression: COPD exacerbation This note was generated with Visualant dictation software. It may contain incorrect words, spelling, and punctuation that were not noted in review of the chart prior to signing ED Disposition - Plan for ED Patient: Chief Complaint: Shortness of Breath Referrals: José Perez MD [Primary Care Provider] -
[2018-08-09] MEDS: Albuterol 2.5 MG/3 ML VIAL.NEB. INHALATION ×2 (17:49)
[2018-08-09] MEDS: Ipratropium/Albuterol Sulfate 3 ML AMPUL.NEB INHALATION (17:49)
[2018-08-09 18:01] LABS: BNP,B-Type NATRIURETIC PEPTIDE 235.4 pg/mL (0-100)
[2018-08-09 18:54] LABS: International Normalized Ratio 2.1
--- NOTE | 2018-08-09 19:35 | ED.RN ---
FOUND PT COMING BACK TO THE BATHROOM,PLACED ON MONITOR HR 160'S A-FIB AND RESP 30'S.ASSISTED PT BACK TO BED AND DR MORALES AWARE.WILL MONITOR.
--- NOTE | 2018-08-09 20:12 | HP.PCM_ITS ---
Problem List (1) COPD exacerbation Status: Acute (2) Acute and chronic respiratory failure with hypoxia Status: Ruled-out (3) PAF (paroxysmal atrial fibrillation) Status: Chronic (4) Obesity (BMI 30.0-34.9) Status: Chronic (5) Former tobacco use Status: Chronic (6) Atrial fibrillation with RVR Status: Resolved (7) Diastolic dysfunction Status: Chronic (8) Chronic hypoxemic respiratory failure Status: Chronic (9) Chronic anticoagulation Status: Chronic (10) Metabolic alkalosis Status: Inactive (11) Metabolic alkalosis Status: Inactive (12) Heart failure with preserved ejection fraction Status: Chronic (13) Chronic a-fib Status: Chronic (14) Altered mental status Status: Inactive (15) Fall Status: Inactive (16) Acute on chronic respiratory failure with hypercapnia Status: Acute (17) Dyslipidemia Status: Chronic (18) COPD (chronic obstructive pulmonary disease) Status: Chronic Qualifiers: History of Present Illness Date of Admission: 08/09/18 Chief Complaint: Shortness of breath for 2-3 weeks The patient is a 72 year old F with multiple comorbidities as listed above including COPD and CHF with recurrent admissions here came to ER with shortness of breath, progressively worsening for 2-3 weeks. Patient earlier had flulike symptoms like sinus congestion right ear pain about 3 weeks ago along with upper back pain interscapular region. Patient had chills but denied fever. Interscapular pain has improved. She is able to speak full sentences but gets short of breath at the end of conversation. She was last admitted in May 2018 for acute on chronic hypoxic respiratory failure with hypercapnia and COPD exacerbation CO2 narcosis. Chest x-ray does not show pulmonary congestion/pulmonary edema. EKG shows A. fib at 94 bpm [] Past Medical History Past Medical History (Chronic Problems): Chronic Problems (Last Updated 03/08/18 @ 20:18 by Bonifacio Conway DO) PAF (paroxysmal atrial fibrillation) (Chronic) Obesity (BMI 30.0-34.9) (Chronic) Former tobacco use (Chronic) Diastolic dysfunction (Chronic) Chronic hypoxemic respiratory failure (Chronic) Chronic anticoagulation (Chronic) Heart failure with preserved ejection fraction (Chronic) Chronic a-fib (Chronic) Dyslipidemia (Chronic) COPD (chronic obstructive pulmonary disease) (Chronic) Medical History: Medical History (Last Updated 03/08/18 @ 20:18 by Bonifacio Conway DO) Dyslipidemia (Chronic) E78.5 COPD (chronic obstructive pulmonary disease) (Chronic) J44.9 Atrial fibrillation I48.91 COPD exacerbation J44.1 Heart failure with preserved ejection fraction I50.30 Group 2. EF 65% 18 Essential hypertension I10 History of DVT (deep vein thrombosis) Z86.718 History of pulmonary embolus (PE) Z86.711 Pulmonary HTN I27.20 Venous insufficiency I87.2 Hypokalemia (Resolved) E87.6 Metabolic alkalosis with respiratory acidosis (Resolved) E87.4 Allergies amlodipine besylate [From [facility]] Adverse Reaction (Verified 05/23/18 16:04) ANKLE AND LEG EDEMA RESOLVED OFF MED-PER PCP PAPERWORK codeine Adverse Reaction (Verified 05/23/18 16:04) MENTAL STATUS CHANGE lisinopril Adverse Reaction (Verified 05/23/18 16:04) COUGH Home Medications: Ambulatory Orders Medication Instructions Recorded Ergocalciferol [Vitamin D] 50,000 unit PO TH 07/19/15 Warfarin [Coumadin] 5 mg PO 07/19/15 Warfarin Sodium 2.5 mg PO DAILY 03/08/18 Furosemide 40 mg PO BID #60 tab 03/11/18 Albuterol Aerosols [Ventolin 2.5 mg INHALATION Q2H PRN PRN 04/05/18 Aerosols] vial.neb. Acetaminophen [Tylenol Extra 1,000 mg PO PRN PRN 05/23/18 Strength] Ascorbic Acid [Vitamin C] 500 mg PO DAILY 05/23/18 Citalopram Hydrobromide 40 mg PO DAILY 05/23/18 [Citalopram HBr] Cyanocobalamin (Vitamin B-12) 500 mcg PO DAILY 05/23/18 [Vitamin B-12] Atenolol [Tenormin (beta donna)] 75 mg PO BID tablet 05/26/18 Ipratropium [Atrovent Aerosols] 0.5 mg INHALATION Q4H.RT solution 05/26/18 Zolpidem Tartrate 10 mg PO QHS #2 tab 05/26/18 Surgical History: Surgical History (Last Reviewed 03/08/18 @ 20:18 by Bonifacio Conway DO) History of cholecystectomy Z90.49 History of total hysterectomy Z90.710 tailbone surgery Surgical History: - - Hysterectomy, cholecystectomy, tailbone surgery. 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 Paternal Family History: Family History (Last Reviewed 03/08/18 @ 20:19 by Bonifacio Conway DO) Sister Heart disease History Items: - - Patient denies any marketed paternal family history including heart disease, diabetes, cancer. Sibling Family History: Family History (Last Reviewed 03/08/18 @ 20:19 by Bonifacio Conway DO) Sister Heart disease History Items: - - Patient notes a sibling specifically her sister with Parkinson's disease and heart disease as well as a brother with Parkinson's disease, asthma and history of blood clots. Review of Systems Constitutional: Reports: Chills, Weakness. Denies: Fever, Weight Change HEENT: Denies: Head Aches, Sinus Congestion, Sinus Drainage Cardiovascular: Reports: Edema - Bilateral lower extremity edema, - - Interscapular pain. Denies: Chest Pain, Palpitations Respiratory: Reports: Cough, Shortness of Breath, Shortness of breath at rest, Shortness of breath upon exertion. Denies: Sputum production Gastrointestinal: Denies: Abdominal Pain, Nausea, Vomiting Genitourinary: Denies: Dysuria, Frequency, Hematuria, Hesitancy Musculoskeletal: Reports: Back Pain. Denies: Joint Pain, Joint Tenderness Skin: Denies: Rash, Wounds Neurological: Reports: Balance problems, - - Recurrent fall, last one about 3 weeks ago. Denies: Focal weakness, Numbness, Tingling Psychiatric: Denies: Anxiety, Depression, Homicidal Ideations, Suicidal Ideations Hematologic/ Lymphatic: Denies: Easy Bruising, Easy Bleeding VTE Information - Inpt Only VTE Present on Admission: No VTE Mechan Device Prophylaxis: None VTE Pharm Prophylaxis ordered?: Yes - Physical Exam General: Alert, Oriented x3, Cooperative HEENT: Atraumatic, PERRLA, EOMI, Normocephalic Neck: Supple, No JVD, Negative Carotid Bruits Lungs: Diminished, Rhonchi, Short of Breath, Tachypneic, Wheezes Cardiovascular: Normal S1, Normal S2, No murmurs, Irregular Rate, Tachycardic Abdomen: Bowel Sounds Present, Soft, Non Tender, Non-Distended Extremities: Capillary Refill Less than 3 Seconds, Edema - Bilateral lower extremity edema Skin: No rashes, No breakdown Musculoskeletal: No Tenderness to Palpation of Joints or Extremities, Arthritic Changes Neurological: Cranial nerves II-XII grossly intact, Deep Tendon Reflexes 2+/4 and Symmetrical, Neuro grossly intact Psych/Mental Status: Normal Affect, Appropriate Vital Signs Temp Pulse Resp BP Pulse Ox 98.6 F 131 H 28 H 103/61 94 08/09/18 19:36 08/09/18 19:36 08/09/18 19:36 08/09/18 19:06 08/09/18 19:36 Oxygen Flow Rate (L/min) 2 Oxygen Delivery Method Nasal Cannula Weight: 200 lb Body Mass Index (BMI) 31.3 Laboratory Tests Past 24 Hrs 08/09/18 08/09/18 08/09/18 17:15 17:15 17:15 WBC 11.2 H RBC 3.87 L Hgb 9.7 L Hct 34.2 L MCV 88.4 MCH 25.1 L MCHC 28.4 L RDW 15.9 H RDW Differential 51.4 H Plt Count 344 MPV 11.3 Immature Gran % (Auto) 0.300 Neut % (Auto) 79.0 H Lymph % (Auto) 13.1 L [place] % (Auto) 5.2 Eos % (Auto) 2.2 Baso % (Auto) 0.2 Absolute Neuts (auto) 8.8 H Absolute Lymphs (auto) 1.47 Total Counted Not Reportable PT INR Sodium 141 Potassium 3.2 L Chloride 97 L Carbon Dioxide 40.0 H Anion Gap 4 L BUN 13 Creatinine 0.60 Estim Creat Clear Calc 48.00 Est GFR (MDRD) Af Amer 127 Est GFR (MDRD) Non-Af 105 BUN/Creatinine Ratio 21.8 H Glucose 85 Calcium 8.7 Troponin I 0.020 B-Natriuretic Peptide 235.4 H 08/09/18 17:40 WBC RBC Hgb Hct MCV MCH MCHC RDW RDW Differential Plt Count MPV Immature Gran % (Auto) Neut % (Auto) Lymph % (Auto) [place] % (Auto) Eos % (Auto) Baso % (Auto) Absolute Neuts (auto) Absolute Lymphs (auto) Total Counted PT 24.0 H INR 2.1 Sodium Potassium Chloride Carbon Dioxide Anion Gap BUN Creatinine Estim Creat Clear Calc Est GFR (MDRD) Af Amer Est GFR (MDRD) Non-Af BUN/Creatinine Ratio Glucose Calcium Troponin I B-Natriuretic Peptide Assessment/Plan All Active Problems (Last Updated 03/08/18 @ 20:18 by Bonifacio Conway DO) COPD exacerbation (Acute) Acute and chronic respiratory failure with hypoxia (Ruled-out) Atrial fibrillation with RVR (Resolved) Acute on chronic respiratory failure with hypercapnia (Acute) Hypokalemia (Resolved) Metabolic alkalosis with respiratory acidosis (Resolved) The patient is a 72 year old F with multiple comorbidities as listed above including COPD and CHF with recurrent admissions here came to ER with shortness of breath, progressively worsening for 2-3 weeks. Patient earlier had flulike symptoms like sinus congestion right ear pain about 3 weeks ago along with upper back pain interscapular region. Patient had chills but denied fever. Interscapular pain has improved. She is able to speak full sentences but gets short of breath at the end of conversation. She was last admitted in May 2018 for acute on chronic hypoxic respiratory failure with hypercapnia and COPD exacerbation CO2 narcosis. Chest x-ray does not show pulmonary congestion/pulmonary edema. EKG shows A. fib at 94 bpm. [] 1. Acute on chronic hypoxic and hypercarbic respiratory failure: Patient is being admitted in PCU. ABG ordered. Last ABG in May 2018, PCO2 was 63. BiPAP as needed for shortness of breath/hypercapnia. 2. COPD exacerbation: On bronchodilator DuoNeb every 4 hourly, Solu-Medrol, azithromycin, incentive spirometry and chest physiotherapy. Sputum culture, respiratory panel ordered. She follows electron microscopist Dr. [place] 3. Chronic heart failure with preserved EF, compensated: Patient has bilateral lower extremity swelling with no change in last 2-3 months. Continue Lasix, metoprolol. No CANDIE inhibitor because of allergy. Patient has interscapular pain most clearly secondary to upper back pain/thoracic spondylosis: Troponin is negative. One more troponin ordered. Echo in November 2017 reported as EF 65% with LV normal systolic function. Normal RV size and systolic function. Normal right and left atria. Moderate mitral annular calcification with trivial MR. Normal tricuspid, RVSP 51 mmHg suggestive of moderate pulmonary hypertension. 4. Chronic A. fib with RVR: Currently her heart rate varies in 90s. On Coumadin. INR therapeutic. She had A. fib with RVR during last admission probably secondary to albuterol. If her heart rate goes in the 110s-120s will change to Atrovent. 5. Other comorbidities include hypertension, dyslipidemia, former nicotine use and obesity grade 3: Multiple comorbidities complicates the present care and expect difficult and delay recovery. PT and OT ordered. DVT prophylaxis: Already on Coumadin and INR therapeutic This note was generated with [employer] dictation software. Every effort was made to ensure accuracy, however computerized mussel opener mistakes may persist. Code Visit Inpatient E&M: 61405 Init Hosp L3
[2018-08-09] MEDS: 0.9% NaCl Peripheral Flush Adult/Peds IV ×3 (21:07→21:09)
[2018-08-09] MEDS: Zolpidem Tartrate 5 MG Tablet PO (22:10)
[2018-08-09] MEDS: Atenolol 25 MG Tablet 75 MG PO (22:11)
[2018-08-09] MEDS: Famotidine 20 MG Tablet PO (22:11)
[2018-08-09] MEDS: guaiFENesin 1,200 MG Tablet 1200 MG PO (22:11)
[2018-08-10] VITALS (18 sets, daily range): BP systolic 101–123; BP diastolic 54–80; PULSE 83–116; RESP 18–27; TEMP 36.2–36.8; O2SAT 94–97
--- NOTE | 2018-08-10 01:16 | PCA ---
0100 Was getting pt. back in bed. and her iv was beeping from downstream, so I told her to maker her arm go straight. I was holding her wrist to adjust her cords and she said I was hurting her. She thinks its from the lab draws.
--- NOTE | 2018-08-10 02:08 | CPS ---
PT STATES SHE CANT TOLERATE A BIPAP MASK,AND DOESNT WANT TO WEAR ONE.
[2018-08-10] MEDS: 0.9% NaCl Peripheral Flush Adult/Peds IV ×9 (05:51→22:58)
[2018-08-10 06:59] LABS: Absolute Neutrophil Count 7.2 X10^3/uL (2.0-7.7); Hematocrit 34.1 % (37-47); Lymphocyte % 9.9 % (19-41); Mean Corp Hgb Conc 29.3 g/gl (32-36); Mean Corpuscular Hgb 25.7 pg (27.0-32.0); Mean Corpuscular Volume 87.7 fL (81-99); Mean Platelet Vol. 11.5 fl (6.2-12.0); Monocyte# 0.07 X10^3/uL; Monocyte% 0.9 % (0-10); Neutrophil # 7.17 X10^3/uL (2.7-7.7); Neutrophil % 89.1 % (47-70); Platelet Count 320 K/mm3 (150-450); RBC Distribution Width CV 15.6 % (11.6-14.6); RBC Distribution Width SD 49.6 fl (35.1-43.9); Red Blood Count 3.89 M/mm3 (4.2-5.4); White Blood Count 8.1 K/mm3 (4.4-11.0)
[2018-08-10 07:04] LABS: POSITIVE COUNT NO; POSITIVE DIFFERENTIAL NO; POSITIVE MORPHOLOGY NO
[2018-08-10] MEDS: Albuterol 2.5 MG/3 ML VIAL.NEB. INHALATION ×4 (07:04→17:04)
[2018-08-10] MEDS: Ipratropium 0.5 MG/2.5 ML SOLUTION INHALATION ×3 (07:04→11:33)
[2018-08-10 07:33] LABS: ALB/GLOB Ratio 0.6 RATIO (0.9-2.4); AST(SGOT) 13 U/L (15-37); Alanine Aminotransfer ALT/SGPT 13 U/L (13-56); Albumin, Serum 2.6 g/dL (3.2-5.0); Alkaline Phosphatase 71 U/L (45-117); Anion Gap 4 (5-15); BUN 15 mg/dL (7-18); BUN/Creat Ratio 22.8 RATIO (10-20); Calcium,Total 8.6 mg/dL (8.5-10.1); Chloride 98 mmol/L (98-107); Creatinine, Serum 0.66 mg/dL (0.55-1.02); EST Glomerular Filtration Rate 93 mL/min (>60); Est Glom Filt Rate - Afr Amer 113 mL/min (>60); Globulin 4.7 g/dL (2.2-4.2); Glucose 141 mg/dL (74-106); Potassium 3.6 mmol/L (3.5-5.1); Protein, Total 7.3 g/dL (6.4-8.2); Sodium Level 139 mmol/L (136-145)
[2018-08-10] MEDS: Ascorbic Acid 500 MG Tablet PO (09:51)
[2018-08-10] MEDS: Atenolol 25 MG Tablet 75 MG PO ×2 (09:51→21:44)
[2018-08-10] MEDS: Famotidine 20 MG Tablet PO ×2 (09:51→21:44)
[2018-08-10] MEDS: Cyanocobalamin 500 MCG Tablet PO (09:51)
[2018-08-10] MEDS: Furosemide 40 MG Tablet PO (09:51)
[2018-08-10] MEDS: Polyethylene Glycol 3350 17 GM PACKET PO (09:51)
[2018-08-10] MEDS: Citalopram 40 MG TABLET PO (09:51)
[2018-08-10] MEDS: Furosemide 20 MG/2 ML VIAL IV ×2 (10:38→18:36)
[2018-08-10] MEDS: guaiFENesin 1,200 MG Tablet 1200 MG PO ×2 (10:38→21:44)
--- NOTE | 2018-08-10 12:05 | CASEMGMT ---
Addendum entered by Gil Flores 08/10/18 16:01: Discussed CCN with pt and given [facility] Rac Card. Pt states is agreeable to CCN. Call placed to Fran @ [facility] and referral made. Order placed. Original Note: RN MARÍA CLINICAL NUTRITIONIST MARÍA to room to meet with patient for initial transition planning/care coordination assessment. RN MARÍA introduced self and role at [facility]. Pt voices understanding and consents to assessment at this time. Pt resting in bed in no distress at this time. Pt is A/O at this time and answers all questions appropriately. Care providers, pharmacy, and demographics verified/updated at this time. PCP: Chris Specialists: Rubén. Pt states I was not pleased with him last week. I don't think I want to back to see him again Preferred [facility]acy: [facility] Insurance: [facility] A & B Prescription Benefit: [employer] Living Will/HPOA: Pt does not currently have LW/HCPOA and declines info at this time. She stated her daughter is working on this paperwork but that she has not completed it yet. Pt made aware that she can contact as an out-pt and make appt in the future if she decides she would like to talk with someone about this or would like to utilize [facility] social work for advanced directive completion. Given [employer] Rac card with information and contact number. Pt expresses understanding. LNOK: Daughter, Irene. Pt states she has other children but states, you don't need to contact them for anything Living Arrangements: Lives alone in an apartment in [place]. States no steps to enter. States she does her own personal ADL's, finances, and medications. States her daughter, Irene, does her shopping and laundry for her. Hires a cleaning lady every 2-3 weeks. Transportation: Pt states drives self short distances only. States her daughter drives her longer distances and to her doctor appts. States no concerns with transportation. DME: has the following DME: Shower chair, rails/grab bars, hand held shower, rollater, nebulizer, and O2 through [employer] @ 2 L/M continuously. has concentrator and portable O2 tanks. Pt states she struggles sometimes when she is using the portable O2 tanks with activity. States has to rest when and take her time. States is interested in information on medical alert buttons. Info sheet given w/local providers. HHC/SNF: was @ [facility] twice last year and states she was not happy with [facility] during her 2nd stay and does not know if she would go back there. has also used [facility] HHC in the past. Pt states she does not want HHC services again and is not interested in doing Out-pt therapy either. PT/OT evals pending. Pt states does not smoke or drink ETOH. CM to follow for any additional home oxygen needs and any further discharge planning/needs. Pt voices no further concerns/needs at this time. Advised pt to ask for CM if any further questions/concerns/needs arise. Voices understanding. PLAN: TBD. PT/OT evals pending. oRsa STOUT RN CM
[2018-08-10] MEDS: Bisacodyl 10 MG Suppository RECTAL (13:24)
--- NOTE | 2018-08-10 13:40 | PCM.PROGNOTE ---
<Kris Pollard - Last Filed: 08/10/18 13:40> Subjective: Pt resting comfortably in chair at bedside. Overall she feels less SOB. She continues to feel wheezy, and continues to have chills. She has some LE edema and will start IV lasix. She has a rare cough. Denies sinus congestion. No body aches. Her son is also fighting an infection. - Physical Exam General: Alert, Oriented x3, Cooperative HEENT: Atraumatic, PERRLA, EOMI, Normocephalic Neck: Supple, No JVD, Negative Carotid Bruits Lungs: Diminished, Wheezes Cardiovascular: Regular rate, No murmurs Abdomen: Bowel Sounds Present, Soft, Non Tender Extremities: Capillary Refill Less than 3 Seconds, Edema Skin: No rashes, No breakdown Musculoskeletal: No Tenderness to Palpation of Joints or Extremities Neurological: Cranial nerves II-XII grossly intact Psych/Mental Status: Normal Affect, Appropriate, Alert and oriented to time, place, person, mood and affect Vital Signs Temp Pulse Resp BP Pulse Ox 97.2 F L 98 18 101/54 L 97 08/10/18 13:20 08/10/18 13:20 08/10/18 13:20 08/10/18 13:20 08/10/18 13:20 Oxygen Flow Rate (L/min) 2 Oxygen Delivery Method Nasal Cannula Weight: 201 lb 0.985 oz Body Mass Index (BMI) 31.1 Intake and Output for Last 24 Hours 08/08/18 08/09/18 08/10/18 23:59 23:59 23:59 Intake Total 383 / 383 1011 / 1011 Balance 383 / 383 1011 / 1011 Laboratory Tests Past 24 Hrs 08/09/18 08/09/18 08/09/18 17:15 17:15 17:15 WBC 11.2 H RBC 3.87 L Hgb 9.7 L Hct 34.2 L MCV 88.4 MCH 25.1 L MCHC 28.4 L RDW 15.9 H RDW Differential 51.4 H Plt Count 344 MPV 11.3 Immature Gran % (Auto) 0.300 Neut % (Auto) 79.0 H Lymph % (Auto) 13.1 L [place] % (Auto) 5.2 Eos % (Auto) 2.2 Baso % (Auto) 0.2 Absolute Neuts (auto) 8.8 H Absolute Lymphs (auto) 1.47 Total Counted Not Reportable PT INR Sodium 141 Potassium 3.2 L Chloride 97 L Carbon Dioxide 40.0 H Anion Gap 4 L BUN 13 Creatinine 0.60 Estim Creat Clear Calc 48.00 Est GFR (MDRD) Af Amer 127 Est GFR (MDRD) Non-Af 105 BUN/Creatinine Ratio 21.8 H Glucose 85 Calcium 8.7 Total Bilirubin AST ALT Alkaline Phosphatase Troponin I 0.020 B-Natriuretic Peptide 235.4 H Total Protein Albumin Globulin Albumin/Globulin Ratio 08/09/18 08/09/18 08/10/18 17:40 21:57 06:50 WBC 8.1 RBC 3.89 L Hgb 10.0 L Hct 34.1 L MCV 87.7 MCH 25.7 L MCHC 29.3 L RDW 15.6 H RDW Differential 49.6 H Plt Count 320 MPV 11.5 Immature Gran % (Auto) 0.100 Neut % (Auto) 89.1 H Lymph % (Auto) 9.9 L [place] % (Auto) 0.9 Eos % (Auto) 0.0 Baso % (Auto) 0.0 Absolute Neuts (auto) 7.2 Absolute Lymphs (auto) 0.80 L Total Counted Not Reportable PT 24.0 H INR 2.1 Sodium Potassium Chloride Carbon Dioxide Anion Gap BUN Creatinine Estim Creat Clear Calc Est GFR (MDRD) Af Amer Est GFR (MDRD) Non-Af BUN/Creatinine Ratio Glucose Calcium Total Bilirubin AST ALT Alkaline Phosphatase Troponin I < 0.015 B-Natriuretic Peptide Total Protein Albumin Globulin Albumin/Globulin Ratio 08/10/18 06:50 WBC RBC Hgb Hct MCV MCH MCHC RDW RDW Differential Plt Count MPV Immature Gran % (Auto) Neut % (Auto) Lymph % (Auto) [place] % (Auto) Eos % (Auto) Baso % (Auto) Absolute Neuts (auto) Absolute Lymphs (auto) Total Counted PT INR Sodium 139 Potassium 3.6 Chloride 98 Carbon Dioxide 37.0 H Anion Gap 4 L BUN 15 Creatinine 0.66 Estim Creat Clear Calc 48.00 Est GFR (MDRD) Af Amer 113 Est GFR (MDRD) Non-Af 93 BUN/Creatinine Ratio 22.8 H Glucose 141 H Calcium 8.6 Total Bilirubin 0.50 AST 13 L ALT 13 Alkaline Phosphatase 71 Troponin I B-Natriuretic Peptide Total Protein 7.3 Albumin 2.6 L Globulin 4.7 H Albumin/Globulin Ratio 0.6 L Medical Necessity - Tobacco Use Smoking Status: Former smoker Assessment/Plan All Active Problems (Last Updated 03/08/18 @ 20:18 by Bonifacio Conway DO) COPD exacerbation (Acute) Acute and chronic respiratory failure with hypoxia (Ruled-out) Atrial fibrillation with RVR (Resolved) Acute on chronic respiratory failure with hypercapnia (Acute) Hypokalemia (Resolved) Metabolic alkalosis with respiratory acidosis (Resolved) 1. Acute COPD exacerbation secondary to acute viral syndrome, with chronic hypoxic respiratory failure (acute respiratory failure ruled out, patient was not hypoxic with only 2lpm O2) -respiratory panel is pending, reportedly several things are becoming positive per micro. Continue aerosols, steroids, azithromycin. Former smoker. CXR neg. CTA equivocal. Pt desires to change her transfer engineer to eh sanders preferring Dr. Mcnair - o/p follow up. 2. Acute on chronic diastolic CHF exacerbation-last echo November 2017 - Defer for repeat. EF 65% RVSP 51 mmHg, diastolic dysfunction. Lasix to IV. Monitor I's and O's. Continue Ryan wraps. Trop neg. BNP somewhat elevated. Monitor CO2. 3. Chronic Afib - rate stable. warfarin, atenolol. 4. hypokalemia resolved 5. HTN - stable 6. Anx/Depression - celexa DVT ppx: warfarin DC planning: pending further improvement in resp status. PTOT. This patient was seen by Kris Pollard PA-C under the supervision of Doctor Tom. <Magalis Santos - Last Filed: 08/11/18 07:56> - Physical Exam Vital Signs Temp Pulse Resp BP Pulse Ox 97.9 F 100 18 128/78 H 97 08/11/18 03:30 08/11/18 03:30 08/11/18 03:30 08/11/18 03:30 08/11/18 03:30 Oxygen Flow Rate (L/min) 2 Oxygen Delivery Method Nasal Cannula Weight: 91.4 kg Body Mass Index (BMI) 31.1 Intake and Output for Last 24 Hours 08/09/18 08/10/18 08/11/18 23:59 23:59 23:59 Intake Total 383 / 383 1663 / 1663 Output Total 601 / 601 100 / 100 Balance 383 / 383 1062 / 1062 -100 / -100 Microbiology Past 72 Hours 08/09/18 23:45 Respiratory Panel (PCR) - Final Mucosa - Nasopharyngeal Laboratory Tests Past 24 Hrs 08/10/18 08/11/18 08/11/18 14:20 06:51 06:51 PT 24.0 H 23.5 H INR 2.1 2.1 Sodium Pending Potassium Pending Chloride Pending Carbon Dioxide Pending Anion Gap Pending BUN Pending Creatinine Pending Est GFR (MDRD) Af Amer Pending Est GFR (MDRD) Non-Af Pending BUN/Creatinine Ratio Pending Glucose Pending Calcium Pending Assessment/Plan This patient was seen in conjunction with JODI Huitron. I have independently interviewed and examined the patient and reviewed pertinent historical, laboratory, and other data. Please refer to JODI Huitron note for his patient's presentation, findings, and recommendations. I have reviewed and his note and concur with his documentation Patient was seen and examined. Admitted last night with worsening shortness of breath. She is being treated as acute COPD exacerbation as well as acute on chronic diastolic CHF. She denied any chest pain or dizziness or palpitations or fever. Physical Exam: Gen: Looks in some discomfort, not pale, not jaundiced, obese, on 2L oxgygen CVS:HS I +II, regular, no murmurs RESP: Diminished all over lungs, wheezes++ GI: Full, soft, nontender, no ballotable organs EXT:Bilateral leg edema +2 ASSESSMENT: 1. Acute COPD exacerbation 2. Acute on chronic diastolic CHF 3. Hypokalemia 4. Chronic A. fib 5. Hypertension 6. Anxiety/depression Plan: Continue with Lasix, breathing treatments, CHF protocol, follow-up on respiratory panel Code Visit Inpatient E&M: 64884 Subs Hosp L2
--- NOTE | 2018-08-10 14:07 | CHAPLAIN ---
patient is sleeping; did not disturb
[2018-08-10] MEDS: Ipratropium/Albuterol Sulfate 3 ML AMPUL.NEB INHALATION ×3 (14:25→23:48)
[2018-08-10 15:07] LABS: International Normalized Ratio 2.1
[2018-08-10] MEDS: Zolpidem Tartrate 5 MG Tablet PO (21:44)
[2018-08-11] VITALS (17 sets, daily range): BP systolic 118–129; BP diastolic 74–78; PULSE 90–162; RESP 15–24; TEMP 36.5–36.9; O2SAT 86–97
[2018-08-11] MEDS: 0.9% NaCl Peripheral Flush Adult/Peds IV ×3 (05:31→16:52)
[2018-08-11] MEDS: Ipratropium/Albuterol Sulfate 3 ML AMPUL.NEB INHALATION ×5 (07:16→23:05)
[2018-08-11 07:27] LABS: International Normalized Ratio 2.1; Prothrombin Time (Protime)PT. 23.5 SECONDS (11.7-14.9)
[2018-08-11 07:50] LABS: Anion Gap 6 (5-15); BUN 21 mg/dL (7-18); BUN/Creat Ratio 33.2 RATIO (10-20); Calcium,Total 9.1 mg/dL (8.5-10.1); Chloride 99 mmol/L (98-107); Creatinine, Serum 0.63 mg/dL (0.55-1.02); EST Glomerular Filtration Rate 98 mL/min (>60); Est Glom Filt Rate - Afr Amer 118 mL/min (>60); Glucose 131 mg/dL (74-106); Potassium 3.9 mmol/L (3.5-5.1); Sodium Level 143 mmol/L (136-145)
[2018-08-11] MEDS: Furosemide 20 MG/2 ML VIAL IV ×2 (11:05→16:50)
[2018-08-11] MEDS: Citalopram 40 MG TABLET PO (11:05)
[2018-08-11] MEDS: Cyanocobalamin 500 MCG Tablet PO (11:06)
[2018-08-11] MEDS: Atenolol 25 MG Tablet 75 MG PO ×2 (11:06→21:06)
[2018-08-11] MEDS: Famotidine 20 MG Tablet PO ×2 (11:07→21:06)
[2018-08-11] MEDS: Ascorbic Acid 500 MG Tablet PO (11:07)
[2018-08-11] MEDS: Polyethylene Glycol 3350 17 GM PACKET PO (11:07)
[2018-08-11] MEDS: guaiFENesin 1,200 MG Tablet 1200 MG PO ×2 (11:07→21:06)
--- NOTE | 2018-08-11 13:03 | PCM.PROGNOTE ---
<Kris Pollard - Last Filed: 08/11/18 13:03> Subjective: Pt reports little improvement in SOB today, and is very SOB even getting out of bed. She is currently maintaining good sats on home o2 level (2). She has an occasional cough. She continues to have chills and night sweats soaking the sheets. - Physical Exam General: Alert, Oriented x3, Cooperative HEENT: Atraumatic, PERRLA, EOMI, Normocephalic Neck: Supple, No JVD, Negative Carotid Bruits Lungs: Diminished Cardiovascular: No murmurs, Irregular Rate Abdomen: Bowel Sounds Present, Soft, Non Tender Extremities: Capillary Refill Less than 3 Seconds, Edema Skin: No rashes, No breakdown Musculoskeletal: No Tenderness to Palpation of Joints or Extremities Neurological: Cranial nerves II-XII grossly intact Psych/Mental Status: Normal Affect, Appropriate, Alert and oriented to time, place, person, mood and affect Vital Signs Temp Pulse Resp BP Pulse Ox 97.7 F L 111 H 18 129/78 H 86 08/11/18 09:50 08/11/18 11:08 08/11/18 11:04 08/11/18 09:50 08/11/18 12:10 Oxygen Flow Rate (L/min) 2 Oxygen Delivery Method Nasal Cannula Weight: 201 lb 8.04 oz Body Mass Index (BMI) 31.1 Intake and Output for Last 24 Hours 08/09/18 08/10/18 08/11/18 23:59 23:59 23:59 Intake Total 383 / 383 1663 / 1663 500 / 500 Output Total 601 / 601 100 / 100 Balance 383 / 383 1062 / 1062 400 / 400 Microbiology Past 72 Hours 08/09/18 23:45 Respiratory Panel (PCR) - Final Mucosa - Nasopharyngeal Laboratory Tests Past 24 Hrs 08/10/18 08/11/18 08/11/18 14:20 06:51 06:51 PT 24.0 H 23.5 H INR 2.1 2.1 Sodium 143 Potassium 3.9 Chloride 99 Carbon Dioxide 38.0 H Anion Gap 6 BUN 21 H Creatinine 0.63 Estim Creat Clear Calc 48.00 Est GFR (MDRD) Af Amer 118 Est GFR (MDRD) Non-Af 98 BUN/Creatinine Ratio 33.2 H Glucose 131 H Calcium 9.1 Medical Necessity - Tobacco Use Smoking Status: Former smoker Assessment/Plan All Active Problems (Last Updated 03/08/18 @ 20:18 by Bonifacio Conway DO) COPD exacerbation (Acute) Acute and chronic respiratory failure with hypoxia (Ruled-out) Atrial fibrillation with RVR (Resolved) Acute on chronic respiratory failure with hypercapnia (Acute) Hypokalemia (Resolved) Metabolic alkalosis with respiratory acidosis (Resolved) 1. Acute COPD exacerbation secondary to acute viral syndrome, with chronic hypoxic respiratory failure - She still very SOB with exertion. respiratory panel is negative for a specific virus, She does continues to have night sweats and chills. Continue aerosols, steroids, azithromycin x 3 doses. Former smoker. CXR neg. CTA equivocal. 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 2. Acute on chronic diastolic CHF exacerbation-last echo November 2017 - Defer for repeat. EF 65% RVSP 51 mmHg, diastolic dysfunction. Lasix via IV. Monitor I's and O's. Continue Ryan wraps. Trop neg. BNP somewhat elevated. Monitor CO2. 3. Chronic Afib - rate stable. warfarin, atenolol. 4. hypokalemia resolved 5. HTN - stable 6. Anx/Depression - celexa DVT ppx: warfarin DC planning: pending further improvement in resp status. PTOT. This patient was seen by Kris Pollard PA-C under the supervision of Doctor Tom. <Magalis Santos - Last Filed: 08/11/18 17:12> - Physical Exam Vital Signs Temp Pulse Resp BP Pulse Ox 98.0 F 101 H 20 H 125/78 H 97 08/11/18 16:38 08/11/18 16:38 08/11/18 16:38 08/11/18 16:38 08/11/18 16:38 Oxygen Flow Rate (L/min) 3 Oxygen Delivery Method Nasal Cannula Weight: 91.4 kg Body Mass Index (BMI) 31.1 Intake and Output for Last 24 Hours 08/09/18 08/10/18 08/11/18 23:59 23:59 23:59 Intake Total 383 / 383 1663 / 1663 500 / 500 Output Total 601 / 601 100 / 100 Balance 383 / 383 1062 / 1062 400 / 400 Microbiology Past 72 Hours 08/09/18 23:45 Respiratory Panel (PCR) - Final Mucosa - Nasopharyngeal Laboratory Tests Past 24 Hrs 08/11/18 08/11/18 06:51 06:51 PT 23.5 H INR 2.1 Sodium 143 Potassium 3.9 Chloride 99 Carbon Dioxide 38.0 H Anion Gap 6 BUN 21 H Creatinine 0.63 Estim Creat Clear Calc 48.00 Est GFR (MDRD) Af Amer 118 Est GFR (MDRD) Non-Af 98 BUN/Creatinine Ratio 33.2 H Glucose 131 H Calcium 9.1 Assessment/Plan This patient was seen in conjunction with JODI Huitron. I have independently interviewed and examined the patient and reviewed pertinent historical, laboratory, and other data. Please refer to JODI Huitron note for his patient's presentation, findings, and recommendations. I have reviewed and his note and concur with his documentation Patient was seen and examined. Still feels SOB. She denied any chest pain or dizziness or palpitations or fever. Vitals stable. Physical Exam: Gen: Not pale, not jaundiced, obese, remains on 2L oxgygen CVS:HS I +II, regular, no murmurs RESP: Diminished all over lungs, wheezes+ GI: Full, soft, nontender, no ballotable organs EXT:Bilateral leg edema +2 Labs reviewed. Resp panel is negative. ASSESSMENT: 1. Acute COPD exacerbation, slowly improving 2. Acute on chronic diastolic CHF, slowly improving 3. Hypokalemia, resolved 4. Chronic A. fib, HR rate-controlled 5. Hypertension, controlled 6. Anxiety/depression, stable Plan: Continue with Lasix, breathing treatments, CHF protocol, follow-up on respiratory panel Code Visit Inpatient E&M: 51400 Subs Hosp L2
[2018-08-11] MEDS: Docusate Sodium 100 MG Capsule 200 MG PO (16:58)
[2018-08-11] MEDS: Albuterol 2.5 MG/3 ML VIAL.NEB. INHALATION (17:34)
[2018-08-11] MEDS: Zolpidem Tartrate 5 MG Tablet PO (22:25)
[2018-08-11] MEDS: Magnesium Hydroxide 30 ML UDC PO (22:28)
[2018-08-12] VITALS (20 sets, daily range): BP systolic 114–149; BP diastolic 74–93; PULSE 96–129; RESP 15–24; TEMP 36.6–36.9; O2SAT 95–98
[2018-08-12] MEDS: Ipratropium/Albuterol Sulfate 3 ML AMPUL.NEB INHALATION ×6 (05:10→22:26)
[2018-08-12 05:22] LABS: International Normalized Ratio 2.4; Prothrombin Time (Protime)PT. 26.4 SECONDS (11.7-14.9)
[2018-08-12] MEDS: 0.9% NaCl Peripheral Flush Adult/Peds IV ×5 (05:36→22:13)
[2018-08-12 05:39] LABS: Anion Gap 10 (5-15); BUN 29 mg/dL (7-18); BUN/Creat Ratio 42.6 RATIO (10-20); Calcium,Total 8.9 mg/dL (8.5-10.1); Chloride 98 mmol/L (98-107); Creatinine, Serum 0.68 mg/dL (0.55-1.02); EST Glomerular Filtration Rate 90 mL/min (>60); Est Glom Filt Rate - Afr Amer 108 mL/min (>60); Glucose 132 mg/dL (74-106); Potassium 3.6 mmol/L (3.5-5.1); Sodium Level 144 mmol/L (136-145)
[2018-08-12] MEDS: Metoprolol Tartrate 5 MG/5 ML Vial IV (06:37)
[2018-08-12] MEDS: Acetaminophen 325 MG Tablet 650 MG PO ×2 (08:29→14:20)
[2018-08-12] MEDS: Furosemide 20 MG/2 ML VIAL IV ×2 (10:31→17:27)
[2018-08-12] MEDS: Atenolol 100 MG Tablet PO ×2 (10:31→22:12)
[2018-08-12] MEDS: Polyethylene Glycol 3350 17 GM PACKET PO (10:31)
[2018-08-12] MEDS: guaiFENesin 1,200 MG Tablet 1200 MG PO ×2 (10:32→22:12)
[2018-08-12] MEDS: Famotidine 20 MG Tablet PO ×2 (10:32→22:12)
[2018-08-12] MEDS: Ascorbic Acid 500 MG Tablet PO (10:32)
[2018-08-12] MEDS: Cyanocobalamin 500 MCG Tablet PO (10:32)
[2018-08-12] MEDS: Citalopram 40 MG TABLET PO (10:33)
--- NOTE | 2018-08-12 13:14 | PCM.PROGNOTE ---
<Kris Pollard - Last Filed: 08/12/18 13:14> Subjective: Pt still very SOB with exertion. No further wheezing. Improvement in LE edema. No fever or chills. Cough is nonproductive. Pt agreeable to placement. - Physical Exam General: Alert, Oriented x3, Cooperative HEENT: Atraumatic, PERRLA, EOMI, Normocephalic Neck: Supple, No JVD, Negative Carotid Bruits Lungs: Clear to auscultation, Normal air movement Cardiovascular: Regular rate, No murmurs Abdomen: Bowel Sounds Present, Soft, Non Tender Extremities: Capillary Refill Less than 3 Seconds, Edema - trace Skin: No rashes, No breakdown Musculoskeletal: No Tenderness to Palpation of Joints or Extremities Neurological: Cranial nerves II-XII grossly intact Psych/Mental Status: Normal Affect, Appropriate, Alert and oriented to time, place, person, mood and affect Vital Signs Temp Pulse Resp BP Pulse Ox 97.9 F 124 H 20 H 114/74 96 08/12/18 08:31 08/12/18 11:27 08/12/18 11:24 08/12/18 08:31 08/12/18 08:31 Oxygen Flow Rate (L/min) 2 Oxygen Delivery Method Nasal Cannula Weight: 201 lb 8.04 oz Body Mass Index (BMI) 31.1 Intake and Output for Last 24 Hours 08/10/18 08/11/18 08/12/18 23:59 23:59 23:59 Intake Total 1663 / 1663 900 / 900 350 / 350 Output Total 601 / 601 300 / 300 250 / 250 Balance 1062 / 1062 600 / 600 100 / 100 Microbiology Past 72 Hours 08/09/18 23:45 Respiratory Panel (PCR) - Final Mucosa - Nasopharyngeal Laboratory Tests Past 24 Hrs 08/12/18 08/12/18 04:44 04:44 PT 26.4 H INR 2.4 Sodium 144 Potassium 3.6 Chloride 98 Carbon Dioxide 36.0 H Anion Gap 10 BUN 29 H Creatinine 0.68 Estim Creat Clear Calc 48.00 Est GFR (MDRD) Af Amer 108 Est GFR (MDRD) Non-Af 90 BUN/Creatinine Ratio 42.6 H Glucose 132 H Calcium 8.9 Medical Necessity - Tobacco Use Smoking Status: Former smoker Assessment/Plan All Active Problems (Last Updated 03/08/18 @ 20:18 by Bonifacio Conway DO) COPD exacerbation (Acute) Acute and chronic respiratory failure with hypoxia (Ruled-out) Atrial fibrillation with RVR (Resolved) Acute on chronic respiratory failure with hypercapnia (Acute) Hypokalemia (Resolved) Metabolic alkalosis with respiratory acidosis (Resolved) 1. Acute COPD exacerbation secondary to acute viral syndrome, with chronic hypoxic respiratory failure - Slow recovery, still very SOB with exertion. respiratory panel is negative for a specific virus. Continue aerosols, steroids, completed azithromycin x 3 doses. Former smoker. CXR neg. CTA equivocal. 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 2. Acute on chronic diastolic CHF exacerbation-last echo November 2017 - Defer for repeat. EF 65% RVSP 51 mmHg, diastolic dysfunction. Lasix via IV. Monitor I's and O's. Continue Ryan wraps. Trop neg. BNP somewhat elevated. Monitor CO2. 3. Chronic Afib - rate stable. warfarin, atenolol. Some rapid pulse, suspect 2/2 albuterol as this has been documented in past. Atenolol increased. 4. hypokalemia resolved 5. HTN - stable 6. Anx/Depression - celexa 7. Debility - SNF placement. PTOT DVT ppx: warfarin DC planning: possibly DC tomorrow to SNF. This patient was seen by Kris Pollard PA-C under the supervision of Doctor Santos. <Magalis Santos - Last Filed: 08/12/18 15:28> - Physical Exam Vital Signs Temp Pulse Resp BP Pulse Ox 97.9 F 124 H 20 H 114/74 96 08/12/18 08:31 08/12/18 11:27 08/12/18 11:24 08/12/18 08:31 08/12/18 08:31 Oxygen Flow Rate (L/min) 2 Oxygen Delivery Method Nasal Cannula Weight: 91.4 kg Body Mass Index (BMI) 31.1 Intake and Output for Last 24 Hours 08/10/18 08/11/18 08/12/18 23:59 23:59 23:59 Intake Total 1663 / 1663 900 / 900 850 / 850 Output Total 601 / 601 300 / 300 250 / 250 Balance 1062 / 1062 600 / 600 600 / 600 Microbiology Past 72 Hours 08/09/18 23:45 Respiratory Panel (PCR) - Final Mucosa - Nasopharyngeal Laboratory Tests Past 24 Hrs 08/12/18 08/12/18 04:44 04:44 PT 26.4 H INR 2.4 Sodium 144 Potassium 3.6 Chloride 98 Carbon Dioxide 36.0 H Anion Gap 10 BUN 29 H Creatinine 0.68 Estim Creat Clear Calc 48.00 Est GFR (MDRD) Af Amer 108 Est GFR (MDRD) Non-Af 90 BUN/Creatinine Ratio 42.6 H Glucose 132 H Calcium 8.9 Assessment/Plan This patient was seen in conjunction with JODI Huitron. I have independently interviewed and examined the patient and reviewed pertinent historical, laboratory, and other data. Please refer to JODI Huitron note for his patient's presentation, findings, and recommendations. I have reviewed and his note and concur with his documentation Patient was seen and examined. Still feels SOB. Had A. fib with RVR yesterday, HR remain uncontrolled. She denied any chest pain or dizziness or palpitations or fever. Vitals stable. Physical Exam: Gen: Not pale, not jaundiced, obese, remains on 2L oxgygen CVS:HS I +II, irregular, tachcardic RESP: Diminished all over lungs GI: Full, soft, nontender, no ballotable organs EXT:Bilateral leg edema +2 Labs reviewed. Resp panel is negative. ASSESSMENT: 1. A. fib with RVR 2. Acute COPD exacerbation, slowly improving 3. Acute on chronic diastolic CHF, slowly improving 4. Hypokalemia, resolved 5. Chronic A. fib, HR rate-controlled 6. Hypertension, controlled 7. Anxiety/depression, stable Plan: Will continue on atenolol 100mg po bid, start on Cardizem 120mg po bid, continue with Lasix, breathing treatments, CHF protocol. Code Visit Inpatient E&M: 76581 Subs Hosp L2
--- NOTE | 2018-08-12 13:18 | PN_ITS ---
<Kris Pollard - Last Filed: 08/12/18 13:14> Subjective: Pt still very SOB with exertion. No further wheezing. Improvement in LE edema. No fever or chills. Cough is nonproductive. Pt agreeable to placement. - Physical Exam General: Alert, Oriented x3, Cooperative HEENT: Atraumatic, PERRLA, EOMI, Normocephalic Neck: Supple, No JVD, Negative Carotid Bruits Lungs: Clear to auscultation, Normal air movement Cardiovascular: Regular rate, No murmurs Abdomen: Bowel Sounds Present, Soft, Non Tender Extremities: Capillary Refill Less than 3 Seconds, Edema - trace Skin: No rashes, No breakdown Musculoskeletal: No Tenderness to Palpation of Joints or Extremities Neurological: Cranial nerves II-XII grossly intact Psych/Mental Status: Normal Affect, Appropriate, Alert and oriented to time, place, person, mood and affect Vital Signs Temp Pulse Resp BP Pulse Ox 97.9 F 124 H 20 H 114/74 96 08/12/18 08:31 08/12/18 11:27 08/12/18 11:24 08/12/18 08:31 08/12/18 08:31 Oxygen Flow Rate (L/min) 2 Oxygen Delivery Method Nasal Cannula Weight: 201 lb 8.04 oz Body Mass Index (BMI) 31.1 Intake and Output for Last 24 Hours 08/10/18 08/11/18 08/12/18 23:59 23:59 23:59 Intake Total 1663 / 1663 900 / 900 350 / 350 Output Total 601 / 601 300 / 300 250 / 250 Balance 1062 / 1062 600 / 600 100 / 100 Microbiology Past 72 Hours 08/09/18 23:45 Respiratory Panel (PCR) - Final Mucosa - Nasopharyngeal Laboratory Tests Past 24 Hrs 08/12/18 08/12/18 04:44 04:44 PT 26.4 H INR 2.4 Sodium 144 Potassium 3.6 Chloride 98 Carbon Dioxide 36.0 H Anion Gap 10 BUN 29 H Creatinine 0.68 Estim Creat Clear Calc 48.00 Est GFR (MDRD) Af Amer 108 Est GFR (MDRD) Non-Af 90 BUN/Creatinine Ratio 42.6 H Glucose 132 H Calcium 8.9 Medical Necessity - Tobacco Use Smoking Status: Former smoker Assessment/Plan All Active Problems (Last Updated 03/08/18 @ 20:18 by Bonifacio Conway DO) COPD exacerbation (Acute) Acute and chronic respiratory failure with hypoxia (Ruled-out) Atrial fibrillation with RVR (Resolved) Acute on chronic respiratory failure with hypercapnia (Acute) Hypokalemia (Resolved) Metabolic alkalosis with respiratory acidosis (Resolved) 1. Acute COPD exacerbation secondary to acute viral syndrome, with chronic hypoxic respiratory failure - Slow recovery, still very SOB with exertion. respiratory panel is negative for a specific virus. Continue aerosols, s teroids, completed azithromycin x 3 doses. Former smoker. CXR neg. CTA equivocal. 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 2. Acute on chronic diastolic CHF exacerbation-last echo November 2017 - Defer for repeat. EF 65% RVSP 51 mmHg, diastolic dysfunction. Lasix via IV. Monitor I's and O's. Continue Ryan wraps. Trop neg. BNP somewhat elevated. Monitor CO2. 3. Chronic Afib - rate stable. warfarin, atenolol. Some rapid pulse, suspect 2/2 albuterol as this has been documented in past. Atenolol increased. 4. hypokalemia resolved 5. HTN - stable 6. Anx/Depression - celexa 7. Debility - SNF placement. PTOT DVT ppx: warfarin DC planning: possibly DC tomorrow to SNF. This patient was seen by Kris Pollard PA-C under the supervision of Doctor Santos. <Magalis Santos - Last Filed: 08/12/18 15:28> - Physical Exam Vital Signs Temp Pulse Resp BP Pulse Ox 97.9 F 124 H 20 H 114/74 96 08/12/18 08:31 08/12/18 11:27 08/12/18 11:24 08/12/18 08:31 08/12/18 08:31 Oxygen Flow Rate (L/min) 2 Oxygen Delivery Method Nasal Cannula Weight: 91.4 kg Body Mass Index (BMI) 31.1 Intake and Output for Last 24 Hours 08/10/18 08/11/18 08/12/18 23:59 23:59 23:59 Intake Total 1663 / 1663 900 / 900 850 / 850 Output Total 601 / 601 300 / 300 250 / 250 Balance 1062 / 1062 600 / 600 600 / 600 Microbiology Past 72 Hours 08/09/18 23:45 Respiratory Panel (PCR) - Final Mucosa - Nasopharyngeal Laboratory Tests Past 24 Hrs 08/12/18 08/12/18 04:44 04:44 PT 26.4 H INR 2.4 Sodium 144 Potassium 3.6 Chloride 98 Carbon Dioxide 36.0 H Anion Gap 10 BUN 29 H Creatinine 0.68 Estim Creat Clear Calc 48.00 Est GFR (MDRD) Af Amer 108 Est GFR (MDRD) Non-Af 90 BUN/Creatinine Ratio 42.6 H Glucose 132 H Calcium 8.9 Assessment/Plan This patient was seen in conjunction with JODI Huitron. I have independently interviewed and examined the patient and reviewed pertinent historical, laborat ory, and other data. Please refer to JODI Huitron note for his patient's presentation, findings, and recommendations. I have reviewed and his note and concur with his documentation Patient was seen and examined. Still feels SOB. Had A. fib with RVR yesterday, HR remain uncontrolled. She denied any chest pain or dizziness or palpitations or fever. Vitals stable. Physical Exam: Gen: Not pale, not jaundiced, obese, remains on 2L oxgygen CVS:HS I +II, irregular, tachcardic RESP: Diminished all over lungs GI: Full, soft, nontender, no ballotable organs EXT:Bilateral leg edema +2 Labs reviewed. Resp panel is negative. ASSESSMENT: 1. A. fib with RVR 2. Acute COPD exacerbation, slowly improving 3. Acute on chronic diastolic CHF, slowly improving 4. Hypokalemia, resolved 5. Chronic A. fib, HR rate-controlled 6. Hypertension, controlled 7. Anxiety/depression, stable Plan: Will continue on atenolol 100mg po bid, start on Cardizem 120mg po bid, continue with Lasix, breathing treatments, CHF protocol. Code Visit Inpatient E&M: 26819 Subs Hosp L2
[2018-08-12] MEDS: dilTIAZem CD 120 MG Capsule PO (22:12)
[2018-08-12] MEDS: Zolpidem Tartrate 5 MG Tablet PO (22:12)
[2018-08-13] VITALS (9 sets, daily range): BP systolic 130–142; BP diastolic 77–103; PULSE 93–109; RESP 16–21; TEMP 36.4–37.1; O2SAT 94–97
[2018-08-13 06:08] LABS: International Normalized Ratio 2.3; Prothrombin Time (Protime)PT. 25.1 SECONDS (11.7-14.9)
[2018-08-13] MEDS: 0.9% NaCl Peripheral Flush Adult/Peds IV ×2 (06:19→13:38)
[2018-08-13] MEDS: Acetaminophen 325 MG Tablet 650 MG PO (06:24)
[2018-08-13 06:39] LABS: Anion Gap 7 (5-15); BUN 34 mg/dL (7-18); BUN/Creat Ratio 51.7 RATIO (10-20); Chloride 97 mmol/L (98-107); Creatinine, Serum 0.66 mg/dL (0.55-1.02); EST Glomerular Filtration Rate 93 mL/min (>60); Est Glom Filt Rate - Afr Amer 113 mL/min (>60); Glucose 132 mg/dL (74-106); Sodium Level 144 mmol/L (136-145)
[2018-08-13] MEDS: Ipratropium/Albuterol Sulfate 3 ML AMPUL.NEB INHALATION ×2 (06:59→11:14)
--- NOTE | 2018-08-13 09:17 | CASEMGMT ---
SW reviewed chart and patient is not doing very well with therapy. SW also noted physician's note indicating patient is in agreement with placement. SW met with patient, introduced self and role at [facility]. She said she is willing to go somewhere as long as her insurance will cover it. SW told her SW can check on her coverage. She said she did not like [facility] the second time she went. She said she would go to TCU here at [facility]. SW told her SW will have to check on bed availability and let her know. Regla VIZCARRA MSW
[2018-08-13] MEDS: Ascorbic Acid 500 MG Tablet PO (09:30)
[2018-08-13] MEDS: Atenolol 100 MG Tablet PO (09:30)
[2018-08-13] MEDS: Cyanocobalamin 500 MCG Tablet PO (09:30)
[2018-08-13] MEDS: Polyethylene Glycol 3350 17 GM PACKET PO (09:30)
[2018-08-13] MEDS: dilTIAZem CD 120 MG Capsule PO (09:31)
[2018-08-13] MEDS: guaiFENesin 1,200 MG Tablet 1200 MG PO (09:31)
[2018-08-13] MEDS: Famotidine 20 MG Tablet PO (09:31)
[2018-08-13] MEDS: Citalopram 40 MG TABLET PO (09:31)
[2018-08-13] MEDS: Furosemide 40 MG Tablet PO (09:31)
--- NOTE | 2018-08-13 10:48 | CASEMGMT ---
YAO spoke with Stacy at [facility]. Patient did have a 60 day break so when she goes back to a SNF she will start at day 1 again. YAO spoke with Kimberly in TCU and they do not have any beds available. YAO spoke with patient letting her know TCU is full. YAO asked her about the other facilities in the area and she did not like any of them. YAO asked her about [facility]. She said last time she was there they made her do 2 hours of therapy and that was too much. She said they told her it is required by Medicare to do 3 hours of therapy a day. YAO told her YAO will check with Shawn on this information. YAO did check with TCU Director, Kimberly and the maximum amount of therapy a patient would get in a SNF is 2 hours, but they are not required to do 2 hours. YAO called Stacy at [facility] and left her a vm requesting a return call. Regla VIZCARRA MSW
--- NOTE | 2018-08-13 11:08 | TREXTCAR_ITS ---
- Diet 08/09/18 20:48 Diet: Cardiac/Low Cholesterol Food consistency:: Regular Liquid Consistency:: Regular/Thin Sodium Restrict to 2g daily - Routine Orders/Code Status Suppository Type: Dulcolax 10mg Suppository Frequency: Daily PRN O2 Frequency: Continuous Routine Lab Work: CBC - 5 days, BMP - 3 days, - - ekg 1 week - Therapies Physical Therapy: Eval and Treat Occupational Therapy: Eval and Treat - Problem/Diagnosis (1) COPD exacerbation Status: Acute Current Visit: No (2) Atrial fibrillation with RVR Status: Resolved Current Visit: No (3) Heart failure with preserved ejection fraction Status: Acute Current Visit: No (4) Chronic a-fib Status: Chronic Current Visit: No (5) Chronic hypoxemic respiratory failure Status: Chronic Current Visit: No (6) Dyslipidemia Status: Chronic Current Visit: No (7) Former tobacco use Status: Chronic Current Visit: No (8) Obesity (BMI 30.0-34.9) Status: Chronic Current Visit: No (9) Depression Status: Chronic Current Visit: Yes - Allergies/Procedures Done in Hospital Allergies/Adverse Reactions: Allergies amlodipine besylate [From [employer]] Adverse Reaction (Verified 05/23/18 16:04) ANKLE AND LEG EDEMA RESOLVED OFF MED-PER PCP PAPERWORK codeine Adverse Reaction (Verified 05/23/18 16:04) MENTAL STATUS CHANGE lisinopril Adverse Reaction (Verified 05/23/18 16:04) COUGH Procedures: None - Type of Care/Length of Stay Estimated LOS: Convalescent Care Less Than 30 days Type of Care Needed: Skilled Rehab Potential: Fair Prognosis: Fair - Additional Orders/Day of Discharge Day of Discharge: 08/13/18 - Dietary and Speech Recommendations Dietitian Recommendations/Changes: Rec diet change to cardiac, low sodium w/ fluid restriction as indicated. - Follow Up Care Primary Care Physician: José Perez MD [Primary Care Provider] - Please follow up with your Primary Care Physician in: 1-2 weeks Please Follow Up With: Mani Mcnair MD When: 2 weeks
[2018-08-13 11:26] LABS: Magnesium 2.6 mg/dL (1.6-2.6)
--- NOTE | 2018-08-13 11:30 | CASEMGMT ---
YAO spoke with Stacy at [facility]. She talked with their therapy dept. Apparently the level they brought patient in at last time she had to do 2 hours of therapy. She said they do not have to bring her in at that level this time. SW spoke with patient and let her know this information. She said she would go to [facility]. SW let RN and physician know. Awaiting Dr Henson to see patient for medication recommendations. Plan: [facility] at [place] under skilled level of care on a convalescent stay. Regla VIZCARRA MSW
--- NOTE | 2018-08-13 12:14 | PHA.DC.MR ---
Pharmacy Service has performed discharge medication reconciliation for this patient upon transfer to [facility] The patient's discharge medication list was reviewed for discrepancies and discrepancies were resolved. Home Medications Ergocalciferol [Vitamin D] 50,000 unit PO TH 07/19/15 Warfarin Sodium 2.5 mg PO DAILY 03/08/18 Furosemide 40 mg PO BID #60 tab 03/11/18 Ascorbic Acid [Vitamin C] 500 mg PO DAILY 05/23/18 Citalopram Hydrobromide [Citalopram HBr] 40 mg PO DAILY 05/23/18 Cyanocobalamin (Vitamin B-12) [Vitamin B-12] 500 mcg PO DAILY 05/23/18 Atenolol [Tenormin (beta donna)] 75 mg PO BID tablet 05/26/18 Ipratropium/Albuterol Sulfate [Duoneb] 3 ml INHALATION 4X/DAY 08/10/18 Acetaminophen [Tylenol Tablet] 650 mg PO Q6H PRN PRN tablet 08/12/18 Guaifenesin [Mucinex] 1,200 mg PO BID #20 tablet 08/12/18 Diltiazem CD [Cardizem CD] 120 mg PO Q12 capsule 08/13/18 Prednisone 10 mg PO UD #30 tablet 08/13/18 Zolpidem Tartrate [Ambien] 5 mg PO QHS 3 Days #3 tab 08/13/18
--- NOTE | 2018-08-13 12:40 | CHAPLAIN ---
Type of Pastoral Visit _x__ Initial Visit ___ Follow-up Visit ___ On-call Visit ___ General Patient Visit ___ Spiritual Assessment ___ Family Conference ___ Bereavement ___ Rapid Response ___ Code Blue ___ Other (describe below) Pastoral Care Referral From _x__ Patient ___ Family ___ Nurse ___ Physician ___ Ginner Helper ___ Flight Attendant/Inflight Manager ___ Other (describe below) Sacrament/Intervention _x__ Active listening ___ Anointing ___ Taoism ___ Bereavement ___ Communion ___ Teresa exploration ___ _x__ Life review _x__ Prayer ___ Reconciliation ___ Sacrament of Sick _x__ Supportive presence ___ Wedding ___ Other (describe below) Pastoral Comments
--- NOTE | 2018-08-13 12:42 | CCN.REFER ---
CCN REFERRAL PLACED ON HOLD DUE TO SNF PLACEMENT.
--- NOTE | 2018-08-13 13:50 | CASEMGMT ---
SW received a call from Stacy at [facility] and they can accept patient. Faxed orders to [facility]. Completed a convalescent on [facility]. Patient's daughter will transport her. SW let RN know she can call report. SW also let patient know she can call her daughter to pick her up. Plan: d/c to [facility] under skilled level of care on a convalescent stay. Patient's daughter transported her via private vehicle. Regla VIZCARRA MSW
--- NOTE | 2018-08-13 13:57 | NURSING ---
Called report to [facility]
--- NOTE | 2018-08-13 14:09 | PCM.CONS.C ---
Reason for Consult Date of Consultation: 08/13/18 Reason for Consultation: Assistance with heart rate management History of Present Illness: The patient is a 72 year old F with multiple comorbidities as listed above including COPD and CHF with recurrent admissions here came to ER with shortness of breath, progressively worsening for 2-3 weeks. Patient earlier had flulike symptoms like sinus congestion right ear pain about 3 weeks ago along with upper back pain interscapular region. Patient had chills but denied fever. She was last admitted in May 2018 for acute on chronic hypoxic respiratory failure with hypercapnia and COPD exacerbation CO2 narcosis. She previously underwent a DC cardioversion last year when she was in atrial fibrillation with religious of sinus rhythm. This time in the emergency room she was noted to be in atrial fibrillation with rapid ventricular response rate. During this hospitalization she has been treated with albuterol nebulizers and her heart rate has not improved. She was getting ready to be discharged to the extended care facility and cardiology was asked to render an opinion regarding her heart rate.[] Past Medical History Allergies/Adverse Reactions: Allergies amlodipine besylate [From [facility]] Adverse Reaction (Verified 05/23/18 16:04) ANKLE AND LEG EDEMA RESOLVED OFF MED-PER PCP PAPERWORK codeine Adverse Reaction (Verified 05/23/18 16:04) MENTAL STATUS CHANGE lisinopril Adverse Reaction (Verified 05/23/18 16:04) COUGH Home Medications: Ambulatory Orders Medication Instructions Recorded Ergocalciferol [Vitamin D] 50,000 unit PO TH 07/19/15 Warfarin Sodium 2.5 mg PO DAILY 03/08/18 Furosemide 40 mg PO BID #60 tab 03/11/18 Ascorbic Acid [Vitamin C] 500 mg PO DAILY 05/23/18 Citalopram Hydrobromide 40 mg PO DAILY 05/23/18 [Citalopram HBr] Cyanocobalamin (Vitamin B-12) 500 mcg PO DAILY 05/23/18 [Vitamin B-12] Atenolol [Tenormin (beta donna)] 75 mg PO BID tablet 05/26/18 Ipratropium/Albuterol Sulfate 3 ml INHALATION 4X/DAY 08/10/18 [Duoneb] Acetaminophen [Tylenol Tablet] 650 mg PO Q6H PRN PRN tablet 08/12/18 Guaifenesin [Mucinex] 1,200 mg PO BID #20 tablet 08/12/18 Diltiazem CD [Cardizem CD] 120 mg PO DAILY #30 capsule 08/13/18 Prednisone 10 mg PO UD #30 tablet 08/13/18 Zolpidem Tartrate [Ambien] 5 mg PO QHS 3 Days #3 tab 08/13/18 Past Medical History (Chronic Problems): Chronic Problems (Last Updated 03/08/18 @ 20:18 by Bonifacio Conway DO) Depression (Chronic) PAF (paroxysmal atrial fibrillation) (Chronic) Obesity (BMI 30.0-34.9) (Chronic) Former tobacco use (Chronic) Diastolic dysfunction (Chronic) Chronic hypoxemic respiratory failure (Chronic) Chronic anticoagulation (Chronic) Chronic a-fib (Chronic) Dyslipidemia (Chronic) COPD (chronic obstructive pulmonary disease) (Chronic) Surgical History: - - Hysterectomy, cholecystectomy, tailbone surgery. 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 Paternal Family History: Family History (Last Reviewed 03/08/18 @ 20:19 by Bonifacio Conway DO) Sister Heart disease History Items: - - Patient denies any marketed paternal family history including heart disease, diabetes, cancer. Sibling Family History: Family History (Last Reviewed 03/08/18 @ 20:19 by Bonifacio Conway DO) Sister Heart disease History Items: - - Patient notes a sibling specifically her sister with Parkinson's disease and heart disease as well as a brother with Parkinson's disease, asthma and history of blood clots. Smoking Status: Former smoker Review of Systems - Review of Systems General: Denies: Fever, Night Sweats, Fatigue HEENT: Denies: Vision Change Cardiovascular: Reports: Shortness of Breath, Palpitations. Denies: Chest Discomfort, Orthopnea, PND, Peripheral Edema, Lightheadedness, Dizziness, Near Syncope, Syncope Respiratory: Denies: Cough, Sputum Production, Hemoptysis Gastrointestinal: Denies: Indigestion, Hematemesis, Hematochezia, Melena Genitourinary: Denies: Dysuria, Hematuria Muscoloskeletal: Denies: Myalgias Skin: Denies: Rash Neurological: Denies: Dizziness Psychiatric: Denies: Anxiety Endocrine: Denies: Unexplained Weight Loss Hematologic/ Lymphatic: Denies: Anemia Subjectve: Pleasant lady in no apparent distress short of breath Objective: Vital Signs Temp Pulse Resp BP Pulse Ox 97.7 F L 96 21 H 134/89 H 96 08/13/18 09:30 08/13/18 11:15 08/13/18 11:15 08/13/18 09:30 08/13/18 09:30 Oxygen Flow Rate (L/min) 2 Oxygen Delivery Method Nasal Cannula Weight: 201 lb 4.513 oz Body Mass Index (BMI) 31.1 Intake and Output for Last 24 Hours 08/11/18 08/12/18 08/13/18 23:59 23:59 23:59 Intake Total 900 / 900 1450 / 1450 780 / 780 Output Total 300 / 300 250 / 250 500 / 500 Balance 600 / 600 1200 / 1200 280 / 280 General: Awake, Alert, Oriented x 3 HEENT: PERRL, EOMI, Sclera Non Icteric Neck: Supple, Good ROM, No Lymph Node Enlargement Lungs: Clear to auscultation Cardiovascular: Irregular Rhythm, Normal S1, Normal S2, No Murmurs, No Rubs, No Gallops Vascular: No Carotid Bruits, Normal Femoral Pulses, Normal Radial Pulses, Normal Dorsalis Pedal Pulse, Normal Posterior Tibial Pulses Abdomen: Bowel Sounds Present, Soft, Non Tender, No HSM, No Organomegaly Extremities: No Cyanosis, No Clubbing, No edema Musculoskeletal: No Erythema Lymphatic: No Lymph Node Enlargement Neurological: No Focal Motor or Sensory Deficit Psych/Mental Status: Appropriate 08/13/18 05:30: PT 25.1 H, INR 2.3 08/13/18 05:30: Sodium 144, Potassium 4.0, Chloride 97 L, Carbon Dioxide 40.0 H, Anion Gap 7, BUN 34 H, Creatinine 0.66, Est GFR (MDRD) Af Amer 113, Est GFR (MDRD) Non-Af 93, BUN/Creatinine Ratio 51.7 H, Glucose 132 H, Calcium 9.0 08/13/18 05:30: Magnesium 2.6 Rhythm: EKG: Atrial fibrillation with a rapid ventricular response rate ECHO: Normal ejection fraction of 65% with no valvular abnormalities and pulmonary artery systolic pressure of 51 mmHg Assessment/Plan 1. Atrial fibrillation Patient presents with atrial fibrillation with an uncontrolled ventricular response rate. Recommendation would be to continue her on the beta-donna but at the atenolol dose of 100 mg a day Agree with the addition of Cardizem CD 120 mg twice a day Continue with anticoagulation. Her heart rate appears to be fairly stable that I think that she can be discharged for outpatient follow-up. 2. Hypertension Her blood pressure appears to be under good control on the current regimen No other changes will be made 3. Pulmonary hypertension Patient has moderate pulmonary hypertension. Follow-up with the crester as recommended. Thank you for allowing me to participate in the care of your patient. Please don't hesitate to call if any issues arise
--- NOTE | 2018-08-13 14:18 | CON.PCM_ITS ---
Reason for Consult Date of Consultation: 08/13/18 Reason for Consultation: Assistance with heart rate management History of Present Illness: The patient is a 72 year old F with multiple comorbidities as listed above including COPD and CHF with recurrent admissions here came to ER with shortness of breath, progressively worsening for 2-3 weeks. Patient earlier had flulike symptoms like sinus congestion right ear pain about 3 weeks ago along with upper back pain interscapular region. Patient had chills but denied fever. She was last admitted in May 2018 for acute on chronic hypoxic respiratory failure with hypercapnia and COPD exacerbation CO2 narcosis. She previously underwent a DC cardioversion last year when she was in atrial fibrillation with pentecostalism of sinus rhythm. This time in the emergency room she was noted to be in atrial fibrillation with rapid ventricular response rate. During this hospitalization she has been treated with albuterol nebulizers and her heart rate has not improved. She was getting ready to be discharged to the extended care facility and cardiology was asked to render an opinion regarding her heart rate.[] Past Medical History Allergies/Adverse Reactions: Allergies amlodipine besylate [From [facility]] Adverse Reaction (Verified 05/23/18 16:04) ANKLE AND LEG EDEMA RESOLVED OFF MED-PER PCP PAPERWORK codeine Adverse Reaction (Verified 05/23/18 16:04) MENTAL STATUS CHANGE lisinopril Adverse Reaction (Verified 05/23/18 16:04) COUGH Home Medications: Ambulatory Orders Medication Instructions Recorded Ergocalciferol [Vitamin D] 50,000 unit PO TH 07/19/15 Warfarin Sodium 2.5 mg PO DAILY 03/08/18 Furosemide 40 mg PO BID #60 tab 03/11/18 Ascorbic Acid [Vitamin C] 500 mg PO DAILY 05/23/18 Citalopram Hydrobromide 40 mg PO DAILY 05/23/18 [Citalopram HBr] Cyanocobalamin (Vitamin B-12) 500 mcg PO DAILY 05/23/18 [Vitamin B-12] Atenolol [Tenormin (beta donna)] 75 mg PO BID tablet 05/26/18 Ipratropium/Albuterol Sulfate 3 ml INHALATION 4X/DAY 08/10/18 [Duoneb] Acetaminophen [Tylenol Tablet] 650 mg PO Q6H PRN PRN tablet 08/12/18 Guaifenesin [Mucinex] 1,200 mg PO BID #20 tablet 08/12/18 Diltiazem CD [Cardizem CD] 120 mg PO DAILY #30 capsule 08/13/18 Prednisone 10 mg PO UD #30 tablet 08/13/18 Zolpidem Tartrate [Ambien] 5 mg PO QHS 3 Days #3 tab 08/13/18 Past Medical History (Chronic Problems): Chronic Problems (Last Updated 03/08/18 @ 20:18 by Bonifacio Conway DO) Depression (Chronic) PAF (paroxysmal atrial fibrillation) (Chronic) Obesity (BMI 30.0-34.9) (Chronic) Former tobacco use (Chronic) Diastolic dysfunction (Chronic) Chronic hypoxemic respiratory failure (Chronic) Chronic anticoagulation (Chronic) Chronic a-fib (Chronic) Dyslipidemia (Chronic) COPD (chronic obstructive pulmonary disease) (Chronic) Surgical History: - - Hysterectomy, cholecystectomy, tailbone surgery. 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 Paternal Family History: Family History (Last Reviewed 03/08/18 @ 20:19 by Bonifacio Conway DO) Sister Heart disease History Items: - - Patient denies any marketed paternal family history including heart disease, diabetes, cancer. Sibling Family History: Family History (Last Reviewed 03/08/18 @ 20:19 by Bonifacio Conway DO) Sister Heart disease History Items: - - Patient notes a sibling specifically her sister with Parkinson's disease and heart disease as well as a brother with Parkinson's disease, asthma and history of blood clots. Smoking Status: Former smoker Review of Systems - Review of Systems General: Denies: Fever, Night Sweats, Fatigue HEENT: Denies: Vision Change Cardiovascular: Reports: Shortness of Breath, Palpitations. Denies: Chest Discomfort, Orthopnea, PND, Peripheral Edema, Lightheadedness, Dizziness, Near Syncope, Syncope Respiratory: Denies: Cough, Sputum Production, Hemoptysis Gastrointestinal: Denies: Indigestion, Hematemesis, Hematochezia, Melena Genitourinary: Denies: Dysuria, Hematuria Muscoloskeletal: Denies: Myalgias Skin: Denies: Rash Neurological: Denies: Dizziness Psychiatric: Denies: Anxiety Endocrine: Denies: Unexplained Weight Loss Hematologic/ Lymphatic: Denies: Anemia Subjectve: Pleasant lady in no apparent distress short of breath Objective: Vital Signs Temp Pulse Resp BP Pulse Ox 97.7 F L 96 21 H 134/89 H 96 08/13/18 09:30 08/13/18 11:15 08/13/18 11:15 08/13/18 09:30 08/13/18 09:30 Oxygen Flow Rate (L/min) 2 Oxygen Delivery Method Nasal Cannula Weight: 201 lb 4.513 oz Body Mass Index (BMI) 31.1 Intake and Output for Last 24 Hours 08/11/18 08/12/18 08/13/18 23:59 23:59 23:59 Intake Total 900 / 900 1450 / 1450 780 / 780 Output Total 300 / 300 250 / 250 500 / 500 Balance 600 / 600 1200 / 1200 280 / 280 General: Awake, Alert, Oriented x 3 HEENT: PERRL, EOMI, Sclera Non Icteric Neck: Supple, Good ROM, No Lymph Node Enlargement Lungs: Clear to auscultation Cardiovascular: Irregular Rhythm, Normal S1, Normal S2, No Murmurs, No Rubs, No Gallops Vascular: No Carotid Bruits, Normal Femoral Pulses, Normal Radial Pulses, Normal Dorsalis Pedal Pulse, Normal Posterior Tibial Pulses Abdomen: Bowel Sounds Present, Soft, Non Tender, No HSM, No Organomegaly Extremities: No Cyanosis, No Clubbing, No edema Musculoskeletal: No Erythema Lymphatic: No Lymph Node Enlargement Neurological: No Focal Motor or Sensory Deficit Psych/Mental Status: Appropriate 08/13/18 05:30: PT 25.1 H, INR 2.3 08/13/18 05:30: Sodium 144, Potassium 4.0, Chloride 97 L, Carbon Dioxide 40.0 H, Anion Gap 7, BUN 34 H, Creatinine 0.66, Est GFR (MDRD) Af Amer 113, Est GFR (MDRD) Non-Af 93, BUN/Creatinine Ratio 51.7 H, Glucose 132 H, Calcium 9.0 08/13/18 05:30: Magnesium 2.6 Rhythm: EKG: Atrial fibrillation with a rapid ventricular response rate ECHO: Normal ejection fraction of 65% with no valvular abnormalities and pulmonary artery systolic pressure of 51 mmHg Assessment/Plan 1. Atrial fibrillation * Patient presents with atrial fibrillation with an uncontrolled ventricular response rate. * Recommendation would be to continue her on the beta-donna but at the atenolol dose of 100 mg a day * Agree with the addition of Cardizem CD 120 mg twice a day * Continue with anticoagulation. * Her heart rate appears to be fairly stable that I think that she can be discharged for outpatient follow-up. * 2. Hypertension * Her blood pressure appears to be under good control on the current regimen * No other changes will be made * 3. Pulmonary hypertension * Patient has moderate pulmonary hypertension. Follow-up with the ramp service agent as recommended. * * Thank you for allowing me to participate in the care of your patient. Please don't hesitate to call if any issues arise
--- NOTE | 2018-08-13 15:13 | DS.PCM_ITS ---
<Kris Pollard - Last Filed: 08/13/18 15:09> Discharge Date and Diagnosis Date of Admission: 08/09/18 Date of Discharge: 08/13/18 - Primary Discharge Diagnosis Acute COPD excarbation with chronic hypoxic respiratory failure Afib RVR Acute on chronic diastolic CHF Chronic Afib Hypokalemia HTN Anx/Depression Debility - Secondary Discharge Diagnosis Chronic Problems (Last Updated 03/08/18 @ 20:18 by Bonifacio Conway DO) Depression (Chronic) PAF (paroxysmal atrial fibrillation) (Chronic) Obesity (BMI 30.0-34.9) (Chronic) Former tobacco use (Chronic) Diastolic dysfunction (Chronic) Chronic hypoxemic respiratory failure (Chronic) Chronic anticoagulation (Chronic) Chronic a-fib (Chronic) Dyslipidemia (Chronic) COPD (chronic obstructive pulmonary disease) (Chronic) Hospital Course and Treatment Imaging Results: RAD/Chest 1 View (Portable) IMPRESSION: Hyperexpanded lungs with chronic interstitial changes, no superimposed acute pulmonary process Consults: Cardiology - [place] Operations: None Procedures: None Summary of Care Provided: Hospital course: The patient is a 72 year old F with past medical history of chronic diastolic CHF, COPD with chronic hypoxic respiratory failure, multiple admissions for COPD in the past year, chronic A. fib hypertension, anxiety depression, who presented the emergency room from home for worsening of shortness of breath, chills, cough. She was found to have wheezing, chest x-ray with hyperexpansion and chronic changes, increased lower extremity edema, mildly elevated BNP. She is felt to be in acute COPD exacerbation with some degree of CHF exacerbation as well. She is admitted to the PCU and placed on telemetry. She was given IV Lasix, IV Solu-Medrol, IV azithromycin, and breathing treatments. She responded to these well. She developed elevation in her heart rate which she has done in the past when receiving albuterol for her breathing. Her atenolol was increased and her Cardizem was increased. Cardiology was consulted. Cardiology adjusted the dose of Cardizem. She was transitioned to oral prednisone and oral Lasix. Sugar was very debilitated and half-way was recommended-she was agreeable. She was discharged to half-way in stable condition. She will need a BMP in 3 days, she will need her daily weights monitored, she will need an EKG in 1 week and to follow-up with cardiology in 2 weeks. She will need to follow-up with her PCP in 1-2 weeks. She is also interested in following up [facility] Dr. Mcnair, pulmonology, and pursuing pulmonary rehab in the future. This patient was seen by Kris Pollard PA-C under the supervision of Doctor Santos. [] - Physical Exam General: Alert, Oriented x3, Cooperative HEENT: Atraumatic, PERRLA, EOMI, Normocephalic Neck: Supple, No JVD, Negative Carotid Bruits Lungs: Clear to auscultation, Normal air movement Cardiovascular: Regular rate, No murmurs Abdomen: Bowel Sounds Present, Soft, Non Tender Extremities: No edema, Capillary Refill Less than 3 Seconds Skin: No rashes, No breakdown Musculoskeletal: No Tenderness to Palpation of Joints or Extremities Neurological: Cranial nerves II-XII grossly intact Psych/Mental Status: Normal Affect, Appropriate Vital Signs Temp Pulse Resp BP Pulse Ox 97.8 F 93 18 130/77 H 94 08/13/18 14:00 08/13/18 14:00 08/13/18 14:00 08/13/18 14:00 08/13/18 14:00 Oxygen Flow Rate (L/min) 2 Oxygen Delivery Method Nasal Cannula Weight: 201 lb 4.513 oz Body Mass Index (BMI) 31.1 Intake and Output for Last 24 Hours 08/11/18 08/12/18 08/13/18 23:59 23:59 23:59 Intake Total 900 / 900 1450 / 1450 780 / 780 Output Total 300 / 300 250 / 250 500 / 500 Balance 600 / 600 1200 / 1200 280 / 280 Microbiology Past 72 Hours 08/09/18 23:45 Respiratory Panel (PCR) - Final Mucosa - Nasopharyngeal Laboratory Tests Past 24 Hrs 08/13/18 08/13/18 08/13/18 05:30 05:30 05:30 PT 25.1 H INR 2.3 Sodium 144 Potassium 4.0 Chloride 97 L Carbon Dioxide 40.0 H Anion Gap 7 BUN 34 H Creatinine 0.66 Estim Creat Clear Calc 48.00 Est GFR (MDRD) Af Amer 113 Est GFR (MDRD) Non-Af 93 BUN/Creatinine Ratio 51.7 H Glucose 132 H Calcium 9.0 Magnesium 2.6 Discharge Diet: Low fat/ Low Cholesterol, 1800 Calorie Control Diet, 2000 mg Sodium Diet Discharge Activity: Return to Normal Activity Home Medications: Medications to take at Discharge Ergocalciferol [Vitamin D] 50,000 unit PO TH 07/19/15 Warfarin Sodium 2.5 mg PO DAILY 03/08/18 Furosemide 40 mg PO BID #60 tab 03/11/18 Ascorbic Acid [Vitamin C] 500 mg PO DAILY 05/23/18 Citalopram Hydrobromide [Citalopram HBr] 40 mg PO DAILY 05/23/18 Cyanocobalamin (Vitamin B-12) [Vitamin B-12] 500 mcg PO DAILY 05/23/18 Atenolol [Tenormin (beta donna)] 75 mg PO BID tablet 05/26/18 Ipratropium/Albuterol Sulfate [Duoneb] 3 ml INHALATION 4X/DAY 08/10/18 Acetaminophen [Tylenol Tablet] 650 mg PO Q6H PRN PRN tablet 08/12/18 Guaifenesin [Mucinex] 1,200 mg PO BID #20 tablet 08/12/18 Diltiazem CD [Cardizem CD] 120 mg PO DAILY #30 capsule 08/13/18 Prednisone 10 mg PO UD #30 tablet 08/13/18 Zolpidem Tartrate [Ambien] 5 mg PO QHS 3 Days #3 tab 08/13/18 Following Prescrptions Were Given to Patient: Diltiazem CD [Cardizem CD] 120 mg PO DAILY #30 capsule Guaifenesin [Mucinex] 1,200 mg PO BID #20 tablet Prednisone 10 mg PO UD #30 tablet Zolpidem Tartrate [Ambien] 5 mg PO QHS 3 Days #3 tab Primary Care Physician: José Perez MD [Primary Care Provider] - Please follow up with your Primary Care Physician in: 1-2 weeks Please Follow Up With: Mani Mcnair MD When: 2 weeks Please Follow Up With: Cardiology When: 2 weeks Disposition: [facility] facility Minutes spent on discharge:: 35 Patient Condition:: Stable Medical Necessity - Tobacco Use Smoking Status: Former smoker Meaningful Use Info Meaningful Use Diagnoses (Choose all that apply): CHF - CHF CANDIE/ARB ordered at discharge?: No Reason CANDIE/ARB not ordered?: Allergy Documented LVEF (%): 65 <Magalis Santos - Last Filed: 08/13/18 15:51> Discharge Date and Diagnosis - Secondary Discharge Diagnosis Chronic Problems (Last Updated 03/08/18 @ 20:18 by Bonifacio Conway DO) Depression (Chronic) PAF (paroxysmal atrial fibrillation) (Chronic) Obesity (BMI 30.0-34.9) (Chronic) Former tobacco use (Chronic) Diastolic dysfunction (Chronic) Chronic hypoxemic respiratory failure (Chronic) Chronic anticoagulation (Chronic) Chronic a-fib (Chronic) Dyslipidemia (Chronic) COPD (chronic obstructive pulmonary disease) (Chronic) Hospital Course and Treatment Summary of Care Provided: This patient was seen in conjunction with JODI Huitron. I have independently interviewed and examined the patient and reviewed pertinent historical, laboratory, and other data. Please refer to JODI Huitron note for his patient's presentation, findings, and recommendations. I have reviewed and his note and concur with his documentation 72-year-old female past medical history of chronic diastolic CHF, COPD, chronic hypoxic respiratory failure on 3 L of oxygen who has had 5 previous admissions last year for similar presentation of shortness of breath comes in with progressive shortness of breath fever and chills. Chest x-ray was negative for any acute cardiopulmonary process. Patient was admitted to telemetry bed, managed on IV Lasix, telemetry, IV azithromycin and breathing treatment. Her respiratory panel as well as influenza was negative. Patient progressed slowly. She was found to have been A. fib with RVR, had senna was increased, Cardizem was added. Cardiology was consulted, adjusted dose of Cardizem. Patient was scheduled for subacute care. On the day of discharge, she was seen and examined, remained on her 2 L of oxygen, denied any new complaints. Physical Exam: Gen: Not pale, not jaundiced, obese, remains on 2L oxygen CVS:HS I +II, irregular, tachycardic RESP: Diminished all over lungs, no wheezes heard GI: Heart sounds present and normal, soft, nontender, no palpable organs EXT:Bilateral leg edema +1-2 - Physical Exam Vital Signs Temp Pulse Resp BP Pulse Ox 97.8 F 93 18 130/77 H 94 08/13/18 14:00 08/13/18 14:00 08/13/18 14:00 08/13/18 14:00 08/13/18 14:00 Oxygen Flow Rate (L/min) 2 Oxygen Delivery Method Nasal Cannula Weight: 91.3 kg Body Mass Index (BMI) 31.1 Intake and Output for Last 24 Hours 08/11/18 08/12/18 08/13/18 23:59 23:59 23:59 Intake Total 900 / 900 1450 / 1450 780 / 780 Output Total 300 / 300 250 / 250 500 / 500 Balance 600 / 600 1200 / 1200 280 / 280 Microbiology Past 72 Hours 08/09/18 23:45 Respiratory Panel (PCR) - Final Mucosa - Nasopharyngeal Laboratory Tests Past 24 Hrs 08/13/18 08/13/18 08/13/18 05:30 05:30 05:30 PT 25.1 H INR 2.3 Sodium 144 Potassium 4.0 Chloride 97 L Carbon Dioxide 40.0 H Anion Gap 7 BUN 34 H Creatinine 0.66 Estim Creat Clear Calc 48.00 Est GFR (MDRD) Af Amer 113 Est GFR (MDRD) Non-Af 93 BUN/Creatinine Ratio 51.7 H Glucose 132 H Calcium 9.0 Magnesium 2.6 Code Visit Inpatient E&M: 84601 Subs Hosp L2
== END 2018-08-13 14:48 | disposition skilled nursing facility (03) | DRG 190 ==
LOC: ED 20:07 → PCU 20:25
PROVIDERS: Physician Assistant; Admitting Provider Internal Medicine; Emergency Provider Emergency Medicine; Family Provider Family Medicine; PCP Family Medicine; Referring Provider Internal Medicine; Visit Provider Internal Medicine
DX: J44.1 Chronic obstructive pulmonary disease with (acute) exacerbation (principal); I50.33 Acute on chronic diastolic (congestive) heart failure; J96.11 Chronic respiratory failure with hypoxia; I48.2 Chronic atrial fibrillation; E78.5 Hyperlipidemia, unspecified; E66.9 Obesity, unspecified; I11.0 Hypertensive heart disease with heart failure; E87.6 Hypokalemia; Z99.81 Dependence on supplemental oxygen; B34.9 Viral infection, unspecified; F32.9 Major depressive disorder, single episode, unspecified; R53.81 Other malaise; F41.9 Anxiety disorder, unspecified; Z68.31 Body mass index [BMI] 31.0-31.9, adult; Z79.01 Long term (current) use of anticoagulants; Z87.891 Personal history of nicotine dependence
CPT/HCPCS: 36415; 71045; 80048; 80053; 83735; 83880; 84484; 85025; 85610; 87633; 93005; 94640; 94667; 94668; 97110; 97162; 97165; 97530; 97802; 99283; J7040; A4216; J1940

== ENCOUNTER 2018-09-08 02:17 | Inpatient (IN) | payer MEDICARE, SELFPAY ==
[2018-08-09 21:00] VITALS: BMI 31.1
[2018-09-08] VITALS (46 sets, daily range): BP systolic 88–144; BP diastolic 58–125; PULSE 80–145; RESP 17–32; TEMP 36.3–37.2; O2SAT 95–100; BMI 30.5; BMI 29.7; BMI 29.6
--- NOTE | 2018-09-08 02:42 | RAD_ITS ---
STUDY: X-RAY CHEST REASON FOR EXAM: Female, 72 years old. Shortness of breath, dyspnea TECHNIQUE: AP COMPARISON: 08/09/2018, 05/23/2018 FINDINGS: EKG leads project over the chest. Coarsened interstitial lung markings predominantly in the lung bases and right upper lobe stable since the prior study including 2017. There is no demonstrated pleural abnormality. Normal size heart. Normal mediastinum and betty. Normal visualized pulmonary arteries. There is atherosclerotic calcification of the aortic arch with tortuosity. No acute bony process. There is no demonstrated abnormality of the visualized soft tissue structures of the upper abdomen. RAD/Chest 1 View (Portable) IMPRESSION: Stable, nonacute portable x-ray examination of the chest. Electronically Signed: Jalen Stephens MD at 11:08 EST , Service support ,
--- NOTE | 2018-09-08 02:42 | EKG12_ITS ---
Test Reason : AFIB Blood Pressure : / mmHG Vent. Rate : 121 BPM Atrial Rate : 138 BPM P-R Int : 136 ms QRS Dur : 066 ms QT Int : 346 ms P-R-T Axes : 000 054 068 degrees QTc Int : 491 ms Atrial fibrillation Low voltage QRS Nonspecific ST and T wave abnormality Abnormal ECG Confirmed by CARLIE BHAT, KATELYN ([id number]), editorial clerk JACOB MILLS ([id number] on 09/11/2018 4:48:07 PM Referred By: DC Confirmed By:KATELYN SEXTON MD
[2018-09-08] MEDS: Ipratropium/Albuterol Sulfate 3 ML AMPUL.NEB INHALATION ×5 (02:54→18:47)
[2018-09-08] MEDS: MethylPREDNISolone 125 MG/2 ML Vial IV (03:04)
[2018-09-08 03:06] LABS: Absolute Lymphocyte Count 1.07 X10^3/ul (0.83-4.51); Absolute Neutrophil Count 3.7 X10^3/uL (2.0-7.7); Basophil# 0.02 X10^3/uL; Basophil% 0.4 % (0-1); Eosinophil# 0.38 X10^3/uL; Eosinophils% 6.7 % (0-5); Hematocrit 35.1 % (37-47); Hemoglobin 10.3 g/dl (12.0-15.0); Lymphocyte # 1.07 X10^3/ul (4.0); Lymphocyte % 18.9 % (19-41); Mean Corp Hgb Conc 29.3 g/gl (32-36); Mean Corpuscular Hgb 25.8 pg (27.0-32.0); Mean Platelet Vol. 10.7 fl (6.2-12.0); Monocyte# 0.46 X10^3/uL; Monocyte% 8.1 % (0-10); Neutrophil # 3.72 X10^3/uL (2.7-7.7); Neutrophil % 65.9 % (47-70); POSITIVE COUNT NO; POSITIVE DIFFERENTIAL NO; POSITIVE MORPHOLOGY NO; Platelet Count 255 K/mm3 (150-450); RBC Distribution Width CV 17.9 % (11.6-14.6); RBC Distribution Width SD 57.8 fl (35.1-43.9); Red Blood Count 3.99 M/mm3 (4.2-5.4); White Blood Count 5.7 K/mm3 (4.4-11.0)
[2018-09-08 03:12] LABS: International Normalized Ratio 1.7; Prothrombin Time (Protime)PT. 20.3 SECONDS (11.7-14.9)
[2018-09-08 03:13] LABS: Partial Thromboplast Time 39.5 Seconds (24.1-36.2)
[2018-09-08 03:23] LABS: Bacteria 0 SEEN /hpf (None Seen); Color, Urine Yellow (Yellow); Glucose, Dipstick Normal (Normal); Ketone-Dipstick Negative (Negative); Leukocyte Esterase-Dipstick Negative /ul (Negative); Mucous, Urine 0 SEEN /hpf (<or=2+); Nitrite-Dipstick Negative (Negative); Occult Blood-Urine 50 /ul (Negative); Protein-Dipstick 30 mg/dl (Negative); Specific Gravity, Urine 1.025 (1.002-1.030); Urine Bilirubin Dipstick Negative (Negative); Urine Clarity Sl. Cloudy (Clear); Urine Urobilinogen Normal (Normal); White Blood Cells 0 SEEN /hpf (0-5)
[2018-09-08 03:32] LABS: Amorphous Sediment 1+ URATE; Red Blood Cells-Urine 0-5 SEEN /hpf (0-5); Squamous Epithelial Cells - UA 10-25 SEEN /hpf (5-10)
[2018-09-08 03:33] LABS: BNP,B-Type NATRIURETIC PEPTIDE 284.4 pg/mL (0-100)
[2018-09-08 04:08] LABS: ALB/GLOB Ratio 0.8 RATIO (0.9-2.4); AST(SGOT) 16 U/L (15-37); Alanine Aminotransfer ALT/SGPT 18 U/L (13-56); Albumin, Serum 3.1 g/dL (3.2-5.0); Alkaline Phosphatase 84 U/L (45-117); Anion Gap 8 (5-15); BUN 13 mg/dL (7-18); Calcium,Total 8.5 mg/dL (8.5-10.1); Chloride 98 mmol/L (98-107); Creatinine, Serum 0.72 mg/dL (0.55-1.02); EST Glomerular Filtration Rate 84 mL/min (>60); Est Glom Filt Rate - Afr Amer 101 mL/min (>60); Globulin 3.9 g/dL (2.2-4.2); Glucose 107 mg/dL (74-106); Sodium Level 144 mmol/L (136-145)
--- NOTE | 2018-09-08 05:10 | ED.VISSUMM ---
- ER Visit Summary Date of Service: 09/08/18 Chief Complaint: Shortness of breath History of Present Illness: The patient is a 72 F with increasing shortness of breath over the past week. This came on gradually. Associated with a dry cough. Patient has a history of this with COPD exacerbations, and her last one July and required hospitalization according the patient. She also reports a history of CHF and atrial fibrillation. She is not currently on antibiotics or steroids. She is compliant with her other medications however. She is a smoker. She is on 2 L of oxygen at home. Physical Examination: Afebrile and vital signs unremarkable except for a heart rate of 137 and a respiratory rate of 30. Patient is tachypneic and speaking in short sentences. Heart is irregularly irregular. Lungs show wheezing and diminished sounds throughout. Skin is normal in color. Patient has bilateral lower extremity edema which is symmetric. Calves are nontender. Test Results: EKG showed atrial fibrillation at a rate of 121. Chest x-ray showed no acute process. Official read is pending. Hemoglobin stable at 10.3. Potassium 3.0 CO2 38, glucose 107. Hepatic panel normal. INR 1.7. Urinalysis unremarkable. Troponin normal. BNP 284 and lactate normal. Cultures pending. Emergency Department Course and Treatment: Patient presented on a nonrebreather. We were able to wean her onto a nasal cannula. She was treated with Solu-Medrol and a DuoNeb while awaiting results. Workup showed atrial fibrillation with RVR. This is not new. Her INR is subtherapeutic. She said this has been an ongoing issue. Her potassium is low, and she said this is also an ongoing issue for her. BNP and x-ray did not show signs of pneumonia or failure. Troponin was normal. Lactate normal. She is not septic. Patient was still having some shortness of breath on reevaluation, but her oxygen was normal on 4 L. Potassium was replaced. She continued to have tachycardia with a rate of 160 with ambulation and I advised rate control treatment. She would like to go home and she wants to take her home medications. I recommended hospitalization for cardiac monitoring and rate control as well as treatment for her breathing symptoms. I spoke with the patient and told her that I would sign her out AGAINST MEDICAL ADVICE, and she would not sign the paperwork. She said that if I really feel like she needs to stay, she should stay. She is still short of breath and displaying tachypnea. Her heart rate is still elevated and so I treated her with metoprolol. I believe she will benefit from steroids and monitoring given her symptoms, and so I spoke with the hospitalist. On further reevaluation, the patient remains tachycardic. She was started on a Cardizem bolus and then drip per the hospitalist. Target heart rate between 80 and 100. Hold if heart rate less than 80. Treatment Plan: As above Disposition: Admit Impression: 1. COPD exacerbation 2. Atrial fibrillation with RVR 3. Hypokalemia 4. Subtherapeutic INR This note was generated with [employer] dictation software. It may contain incorrect words, spelling, and punctuation that were not noted in review of the chart prior to signing ED Disposition - Plan for ED Patient: Instructions: ED COPD Flare Prescriptions: Prednisone 10 mg PO UD #33 tab Referrals: José Perez MD [Primary Care Provider] -
--- NOTE | 2018-09-08 05:18 | ED.DEP ---
ED Disposition - Plan for ED Patient: Instructions: ED COPD Flare Prescriptions: Prednisone 10 mg PO UD #33 tab Referrals: José Perez MD [Primary Care Provider] -
[2018-09-08] MEDS: dilTIAZem 25 MG/5 ML Vial 20 MG IV BOLUS (06:45)
--- NOTE | 2018-09-08 07:12 | HP.PCM_ITS ---
Problem List (1) COPD with exacerbation Status: Acute (2) Atrial fibrillation with RVR Status: Acute History of Present Illness Date of Admission: 09/08/18 Chief Complaint: shortness of breath The patient is a 72 year old F with a significant history of Afib; COPD; DVT and PE who presented to the emergency department because of 2 days history of shortness of breath at rest which increases with mild exertion. Associated with his symptoms is productive cough with brownish yellow sputum. Further she reports chills. Patient was brought by the squad on a nonrebreather mask and was transitioned to 4 L of nasal cannula. At baseline patient is 2 L of nasal cannula at home. At the emergency department patient was found to be in A. fib with RVR for which she was initially given metoprolol IV and later on was started on a Cardizem bolus and drip. Past Medical History Past Medical History (Chronic Problems): Chronic Problems (Last Reviewed 09/08/18 @ 07:40 by Paulo Mota MD) Depression (Chronic) PAF (paroxysmal atrial fibrillation) (Chronic) Obesity (BMI 30.0-34.9) (Chronic) Former tobacco use (Chronic) Diastolic dysfunction (Chronic) Chronic hypoxemic respiratory failure (Chronic) Chronic anticoagulation (Chronic) Chronic a-fib (Chronic) Dyslipidemia (Chronic) COPD (chronic obstructive pulmonary disease) (Chronic) Medical History: Medical History (Last Reviewed 09/08/18 @ 07:46 by Paulo Mota MD) Dyslipidemia (Chronic) E78.5 COPD (chronic obstructive pulmonary disease) (Chronic) J44.9 Atrial fibrillation I48.91 COPD exacerbation J44.1 Heart failure with preserved ejection fraction I50.30 Group 2. EF 65% 18 Essential hypertension I10 History of DVT (deep vein thrombosis) Z86.718 History of pulmonary embolus (PE) Z86.711 Pulmonary HTN I27.20 Venous insufficiency I87.2 Hypokalemia (Resolved) E87.6 Metabolic alkalosis with respiratory acidosis (Resolved) E87.4 Allergies amlodipine besylate [From [facility]] Adverse Reaction (Verified 09/08/18 02:25) ANKLE AND LEG EDEMA RESOLVED OFF MED-PER PCP PAPERWORK codeine Adverse Reaction (Verified 09/08/18 02:25) MENTAL STATUS CHANGE lisinopril Adverse Reaction (Verified 09/08/18 02:25) COUGH Home Medications: Ambulatory Orders Medication Instructions Recorded Ergocalciferol [Vitamin D] 50,000 unit PO TH 07/19/15 Warfarin Sodium 2.5 mg PO DAILY 03/08/18 Furosemide 40 mg PO BID #60 tab 03/11/18 Ascorbic Acid [Vitamin C] 500 mg PO DAILY 05/23/18 Citalopram Hydrobromide 40 mg PO DAILY 05/23/18 [Citalopram HBr] Cyanocobalamin (Vitamin B-12) 500 mcg PO DAILY 05/23/18 [Vitamin B-12] Atenolol [Tenormin (beta dnona)] 75 mg PO BID tablet 05/26/18 Ipratropium/Albuterol Sulfate 3 ml INHALATION 4X/DAY 08/10/18 [Duoneb] Acetaminophen [Tylenol Tablet] 650 mg PO Q6H PRN PRN tablet 08/12/18 Guaifenesin [Mucinex] 1,200 mg PO BID #20 tablet 08/12/18 Diltiazem CD [Cardizem CD] 120 mg PO DAILY #30 capsule 08/13/18 Prednisone 10 mg PO UD #30 tablet 08/13/18 Prednisone 10 mg PO UD #33 tab 09/08/18 Surgical History: Surgical History (Last Reviewed 09/08/18 @ 07:46 by Paulo Mota MD) History of cholecystectomy Z90.49 History of total hysterectomy Z90.710 tailbone surgery Surgical History: - - Hysterectomy, cholecystectomy, tailbone surgery. Psychiatric History: Anxiety, Depression SHIFT COORDINATOR History: No pertinent SHIFT COORDINATOR history Lives: Alone Smoking Status: Former smoker - *Family History Maternal Family History: Family History (Last Reviewed 09/08/18 @ 07:41 by Paulo Mota MD) Sister Heart disease History Items: - - Patient notes a maternal history of dementia and stroke. Paternal Family History: Family History (Last Reviewed 09/08/18 @ 07:41 by Paulo Mota MD) Sister Heart disease History Items: - - Patient denies any marketed paternal family history including heart disease, diabetes, cancer. Sibling Family History: Family History (Last Reviewed 09/08/18 @ 07:41 by Paulo Mota MD) Sister Heart disease History Items: - - Patient notes a sibling specifically her sister with Parkinson's disease and heart disease as well as a brother with Parkinson's disease, asthma and history of blood clots. Review of Systems Constitutional: Reports: Chills. Denies: Fever, Weight Change HEENT: Denies: Head Aches, Sinus Congestion, Sinus Drainage Cardiovascular: Denies: Chest Pain, Palpitations Respiratory: Reports: Cough, Shortness of Breath. Denies: Shortness of breath at rest, Sputum production Gastrointestinal: Denies: Abdominal Pain, Nausea, Vomiting Genitourinary: Denies: Dysuria Musculoskeletal: Denies: Joint Pain, Joint Tenderness Skin: Denies: Rash, Wounds Neurological: Denies: Numbness, Tingling, Focal weakness Psychiatric: Denies: Anxiety, Depression, Homicidal Ideations, Suicidal Ideations Hematologic/ Lymphatic: Denies: Easy Bruising, Easy Bleeding VTE Information - Inpt Only VTE Present on Admission: No VTE Mechan Device Prophylaxis: None VTE Pharm Prophylaxis ordered?: No Reason prophylaxis not ordered:: Treatment Not Indicated - Continue Coumadin for A. fib. Bridge Coumadin with Lovenox Patient Problems: Active and Suspected Problems (Last Reviewed 09/08/18 @ 07:40 by Paulo Mota MD) COPD with exacerbation (Acute) - Physical Exam General: Alert, Oriented x3, Cooperative HEENT: Atraumatic, PERRLA, EOMI, Normocephalic Neck: Supple, No JVD, Negative Carotid Bruits Lungs: Rhonchi, Tachypneic, Wheezes Cardiovascular: No murmurs, Irregular Rate, Tachycardic Abdomen: Bowel Sounds Present, Soft, Non Tender Extremities: No edema, Capillary Refill Less than 3 Seconds Skin: No rashes, No breakdown Musculoskeletal: No Tenderness to Palpation of Joints or Extremities Neurological: Neuro grossly intact Psych/Mental Status: Normal Affect, Appropriate Vital Signs Temp Pulse Resp BP Pulse Ox 98.7 F 89 27 H 99/71 95 09/08/18 06:43 09/08/18 06:53 09/08/18 06:53 09/08/18 06:53 09/08/18 06:53 Oxygen Flow Rate (L/min) 4 Oxygen Delivery Method Nasal Cannula Weight: 88.5 kg Body Mass Index (BMI) 30.5 Laboratory Tests Past 24 Hrs 09/08/18 09/08/18 09/08/18 02:54 02:54 02:54 WBC 5.7 RBC 3.99 L Hgb 10.3 L Hct 35.1 L MCV 88.0 MCH 25.8 L MCHC 29.3 L RDW 17.9 H RDW Differential 57.8 H Plt Count 255 MPV 10.7 Immature Gran % (Auto) 0.000 Neut % (Auto) 65.9 Lymph % (Auto) 18.9 L Warren % (Auto) 8.1 Eos % (Auto) 6.7 H Baso % (Auto) 0.4 Absolute Neuts (auto) 3.7 Absolute Lymphs (auto) 1.07 Total Counted Not Reportable PT 20.3 H INR 1.7 APTT 39.5 H Sodium 144 Potassium 3.0 L Chloride 98 Carbon Dioxide 38.0 H Anion Gap 8 BUN 13 Creatinine 0.72 Estim Creat Clear Calc 48.00 Est GFR (MDRD) Af Amer 101 Est GFR (MDRD) Non-Af 84 BUN/Creatinine Ratio 18.0 Glucose 107 H Lactic Acid Calcium 8.5 Total Bilirubin 0.60 AST 16 ALT 18 Alkaline Phosphatase 84 Troponin I < 0.015 B-Natriuretic Peptide Total Protein 7.0 Albumin 3.1 L Globulin 3.9 Albumin/Globulin Ratio 0.8 L Urine Color Urine Clarity Urine pH Ur Specific [place] Urine Protein Urine Glucose (UA) Urine Ketones Urine Occult Blood Urine Nitrite Urine Bilirubin Urine Urobilinogen Ur Leukocyte Esterase Urine RBC Urine WBC Ur Squamous Epith Cells Amorphous Sediment Urine Bacteria Urine Mucus 09/08/18 09/08/18 09/08/18 02:54 02:54 02:56 WBC RBC Hgb Hct MCV MCH MCHC RDW RDW Differential Plt Count MPV Immature Gran % (Auto) Neut % (Auto) Lymph % (Auto) Warren % (Auto) Eos % (Auto) Baso % (Auto) Absolute Neuts (auto) Absolute Lymphs (auto) Total Counted PT INR APTT Sodium Potassium Chloride Carbon Dioxide Anion Gap BUN Creatinine Estim Creat Clear Calc Est GFR (MDRD) Af Amer Est GFR (MDRD) Non-Af BUN/Creatinine Ratio Glucose Lactic Acid 1.0 Calcium Total Bilirubin AST ALT Alkaline Phosphatase Troponin I B-Natriuretic Peptide 284.4 H Total Protein Albumin Globulin Albumin/Globulin Ratio Urine Color Yellow Urine Clarity Sl. Cloudy Urine pH 5.0 Ur Specific [place] 1.025 Urine Protein 30 H Urine Glucose (UA) Normal Urine Ketones Negative Urine Occult Blood 50 H Urine Nitrite Negative Urine Bilirubin Negative Urine Urobilinogen Normal Ur Leukocyte Esterase Negative Urine RBC 0-5 SEEN Urine WBC 0 SEEN Ur Squamous Epith Cells 10-25 SEEN Amorphous Sediment 1+ URATE Urine Bacteria 0 SEEN Urine Mucus 0 SEEN Assessment/Plan All Active Problems (Last Reviewed 09/08/18 @ 07:40 by Paulo Mota MD) COPD with exacerbation (Acute) COPD exacerbation (Acute) Acute and chronic respiratory failure with hypoxia (Ruled-out) Atrial fibrillation with RVR (Acute) Heart failure with preserved ejection fraction (Acute) Acute on chronic respiratory failure with hypercapnia (Acute) Hypokalemia (Resolved) Metabolic alkalosis with respiratory acidosis (Resolved) The patient is a 72 year old F with a significant history of Afib; COPD DVT and PE who presented to the emergency department because of 2 days history of shortness of breath at rest which increases with mild exertion was found to be in A. fib with RVR. Acute COPD extubation CXR independently reviewed confirms chronic R changes with no acute disease. EKG independently reveiwed confirms A. fib with RVR Scheduled DuoNeb Albuterol as needed Received Solu-Medrol at emergency department. Solu-Medrol continued She complains of chills. Will start Azithromycin On home oxygen. Oxygen as needed A-fib with RVR Admitted to PCU on telemetry Obtain echo INR is subtherapeutic so will give Lovenox 1 mg per kilogram x 1. Increase Coumadin. Daily PT/INR For rate control continue malick dias Received 40 mg of potassium at the ED because her potassium was 3.0. We will give him a dose of 40 mg p.o. Repeat BMP next day. check magnesium Hypokalemia Received 40 mg of potassium at the emergency department. Give another dose of potassium 40 mEq Check magnesium Repeat BMP next day. DVT prophylaxis Not indicated since patient is being treated with anticoagulation for A. fib. Code Visit Inpatient E&M: 70530 Init Hosp L3
--- NOTE | 2018-09-08 07:42 | ECHOD_ITS ---
Reason For Study: Afib, Aflutter Procedure This was a 2D Doppler, Color Flow transthoracic echocardiogram. The study was technically difficult. Exam performed portable in patient room. Left Ventricle Normal LV size. Left ventricular systolic function is normal. The estimated ejection fraction is 60 %. Unable to assess diastolic dysfunction. No regional wall motion abnormalities noted. Right Ventricle Normal RV size. Normal systolic function. Atria The left atrium is mildly enlarged. The right atrium is moderately enlarged. No doppler evidence for ASD. Mitral Valve There is moderate mitral annular calcification. Extension of the mitral annular calcification on to the mitral valve leaflet. Trivial mitral valve insufficiency. Tricuspid Valve Normal tricuspid valve. Mild tricuspid valve insufficiency. Right ventricular systolic pressure estimated to be 35 mmHg. Aortic Valve Trisinus/trileaflet aortic valve. Moderate focal aortic valve calcification. Pulmonic Valve The pulmonic valve is not well visualized. Great Vessels Normal sized aortic root. Pericardium/Pleural No pericardial effusion. MMode/2D Measurements & Calculations LVIDd: 3.8 cm IVSd: 1.2 cm Ao root diam: 3.5 cm LVIDs: 2.6 cm LVPWd: 1.1 cm RVDd: 3.7 cm FS: 33.5 % LAV(MOD-bp): 48.4 ml LVAd ap4: 18.0 cm2 SV(MOD-sp4): 24.1 ml LAV(MOD-bp) Indexed: 24.7 ml/m2 EDV(MOD-sp4): 43.7 ml LAV(MOD-sp2): 46.5 ml EDV(sp4-el): 45.5 ml LAV(MOD-sp4): 42.5 ml LVAs ap4: 10.9 cm2 ESV(MOD-sp4): 19.5 ml ESV(sp4-el): 19.3 ml EF(MOD-sp4): 55.2 % EF(sp4-el): 57.5 % SV(sp4-el): 26.1 ml LA A4 area: 15.8 cm2 LA dimension(2D): 4.1 cm RA A4 area: 19.5 cm2 Doppler Measurements & Calculations MV E max maribell: 112.9 cm/sec Ao V2 max: 135.9 cm/sec LV V1 max: 92.7 cm/sec Ao max P.4 mmHg LV V1 max P.4 mmHg Ao V2 mean: 103.3 cm/sec Ao mean P.6 mmHg Ao V2 VTI: 23.2 cm PA V2 max: 67.9 cm/sec TR max maribell: 284.1 cm/sec TR max P.3 mmHg Interpretation Summary The study was technically difficult. Left ventricular systolic function is normal. The estimated ejection fraction is 60 %. The left atrium is mildly enlarged. The right atrium is moderately enlarged. There is moderate mitral annular calcification. Extension of the mitral annular calcification on to the mitral valve leaflet. Trivial mitral valve insufficiency. Mild tricuspid valve insufficiency. Moderate focal aortic valve calcification. Right ventricular systolic pressure estimated to be 35 mmHg. Unable to assess diastolic dysfunction. Ordering Physician: Paulo Mota Referring Physician: José Perez Performed By: Kelsey Smalls RDCS, RVT
[2018-09-08 09:10] LABS: Magnesium 2.1 mg/dL (1.6-2.6); Thyroid Stim Hormone (TSH) 3.38 uIU/mL (0.358-3.74)
[2018-09-08] MEDS: Enoxaparin 100 MG/ML Syringe 90 MG SC (10:06)
[2018-09-08] MEDS: guaiFENesin 1,200 MG Tablet 1200 MG PO ×3 (10:08→21:12)
[2018-09-08] MEDS: Atenolol 50 MG Tablet PO ×2 (12:29→22:46)
--- NOTE | 2018-09-08 12:44 | CASEMGMT ---
Social Work Note SW updated pt is seeking placement at discharge. SW met with pt, introduced self and role at [facility]. Pt is alert and orientated. Pt states that she was just at [facility] and was there for 20 days. Pt states that she was discharged home on 09/01/2018. 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 Pt states she would like to return to [facility] and would like to know how her copay is going to be paid. SW asked pt about applying for Medicaid while at [facility]. Pt states that she was talking to a Venessa at [facility] and they were working on applying for Medicaid but is unsure if she actually applied for it. SW informed pt that admissions in SNF is not in over the weekend and neither is [facility] so this worker is unable to confirm with [facility] regarding copays and with [facility] to determine if pt has applied for Medicaid. SW explained that there will be a SW available Monday to be in contact with [facility] and [facility]. Pt states understanding. Plan: SW to follow up with pt Monday to determine copay amount and to determine if pt has applied for Medicaid. Pt is stating she would like to return to [facility] and remain at [facility] for superintendent marine oil terminal care. Chiara Stevens CURTAIN FITTER, TIMBER SIZER OPERATOR
--- NOTE | 2018-09-08 12:49 | PCM.PN.BLA ---
Progress Note Progress note follow-up for morning admission: Patient has had minimal improvement since arriving. She remains very short of breath with conversational dyspnea, significant wheezing. She has a nonproductive cough. She continues on a Cardizem drip for A. fib with RVR. She has a history of having COPD exacerbation patient along with atrial atrial fibrillation with RVR going along with it, and has a history of being sensitive to albuterol as it triggers rapid heart rate. Last time she was here her atenolol was increased and she was seen by cardiology. She is now on a Cardizem drip and her rate is improving. She has significant wheezing on exam and apparent conversational dyspnea. Labs are significant for mild anemia and low potassium. Potassium is been repleted. BNP is slightly elevated however she does not have worsening of her lower extremity edema and no audible rales on exam. TSH is normal. Will continue plan as previously ordered, but will increase her Solu-Medrol to a higher dose as she remains very wheezy and short of breath. She is seen Dr. Mcnair in the past as an inpatient. We advised her to follow-up with Dr. Mcnair as an outpatient after her last discharge however she has not done that. If she worsens, consider pulmonary consult. This patient was seen by Kris Pollard PA-C under the supervision of Doctor Ramirez.
[2018-09-08] MEDS: MethylPREDNISolone 125 MG/2 ML Vial 60 MG IV ×2 (14:52→21:12)
[2018-09-08] MEDS: 0.9% NaCl Peripheral Flush Adult/Peds IV (14:54)
[2018-09-08] MEDS: Citalopram 20 MG Tablet PO ×2 (16:21→21:12)
[2018-09-08] MEDS: Furosemide 40 MG Tablet PO (17:13)
[2018-09-08] MEDS: Albuterol 2.5 MG/3 ML VIAL.NEB. INHALATION (21:30)
[2018-09-08] MEDS: Zolpidem Tartrate 5 MG Tablet PO (22:46)
[2018-09-08] MEDS: Acetaminophen 325 MG Tablet 650 MG PO (22:50)
[2018-09-08] MEDS: Bisacodyl 5 MG Tablet PO (22:50)
[2018-09-09] VITALS (37 sets, daily range): BP systolic 96–128; BP diastolic 62–107; PULSE 76–108; RESP 16–98; TEMP 36.6–36.8; O2SAT 31–99
[2018-09-09] MEDS: Ipratropium/Albuterol Sulfate 3 ML AMPUL.NEB INHALATION ×6 (04:24→22:17)
[2018-09-09] MEDS: MethylPREDNISolone 125 MG/2 ML Vial 60 MG IV ×3 (05:26→21:07)
[2018-09-09] MEDS: 0.9% NaCl Peripheral Flush Adult/Peds IV ×2 (05:26→21:08)
[2018-09-09] MEDS: Acetaminophen 325 MG Tablet 650 MG PO ×2 (05:32→16:13)
--- NOTE | 2018-09-09 05:55 | EKG12_ITS ---
Test Reason : AM EKG Blood Pressure : / mmHG Vent. Rate : 103 BPM Atrial Rate : 103 BPM P-R Int : 000 ms QRS Dur : 072 ms QT Int : 380 ms P-R-T Axes : 000 064 054 degrees QTc Int : 497 ms Atrial fibrillation with rapid ventricular response Abnormal ECG Confirmed by MADISON BHAT, URSULA ([id number]), desk editor JACOB MILLS ([id number]) on 09/12/2018 10:50:59 AM Referred By: DR BLACKMAN Confirmed By:URSULA WALLACE MD
[2018-09-09 07:35] LABS: Anion Gap 10 (5-15); BUN 19 mg/dL (7-18); BUN/Creat Ratio 30.6 RATIO (10-20); Calcium,Total 8.9 mg/dL (8.5-10.1); Chloride 101 mmol/L (98-107); Creatinine, Serum 0.62 mg/dL (0.55-1.02); EST Glomerular Filtration Rate 100 mL/min (>60); Est Glom Filt Rate - Afr Amer 121 mL/min (>60); Glucose 148 mg/dL (74-106); Potassium 3.8 mmol/L (3.5-5.1); Sodium Level 140 mmol/L (136-145)
[2018-09-09] MEDS: Atenolol 50 MG Tablet PO ×2 (09:15→21:07)
[2018-09-09] MEDS: guaiFENesin 1,200 MG Tablet 1200 MG PO ×2 (09:15→21:07)
[2018-09-09] MEDS: Furosemide 40 MG Tablet PO ×2 (09:15→17:37)
[2018-09-09] MEDS: Citalopram 20 MG Tablet PO ×2 (09:15→21:07)
[2018-09-09] MEDS: Magnesium Hydroxide 30 ML UDC PO (09:27)
[2018-09-09 10:07] LABS: International Normalized Ratio 2.2
--- NOTE | 2018-09-09 11:57 | PCM.PROGNOTE ---
<Kris Pollard - Last Filed: 09/09/18 11:57> Subjective: Breathing improved. Satting 98% on home O2 level. Still somewhat wheezy and SOB but doing better overall. No increased LE edema. Cough with some sputum production. No fevers or chills. Pt refuses jes wraps. Legs not elevated - discussed the importance of this with edema. - Physical Exam General: Alert, Oriented x3, Cooperative HEENT: Atraumatic, PERRLA, EOMI, Normocephalic Neck: Supple, No JVD, Negative Carotid Bruits Lungs: Diminished, Wheezes Cardiovascular: Regular rate, No murmurs Abdomen: Bowel Sounds Present, Soft, Non Tender Extremities: Edema - 2+ pitting edema Skin: No rashes, No breakdown Musculoskeletal: No Tenderness to Palpation of Joints or Extremities Neurological: Cranial nerves II-XII grossly intact Psych/Mental Status: Appropriate, Anxious, Alert and oriented to time, place, person, mood and affect Vital Signs Temp Pulse Resp BP Pulse Ox 98.1 F 88 16 109/93 H 97 09/09/18 07:00 09/09/18 11:00 09/09/18 10:49 09/09/18 10:00 09/09/18 10:00 Oxygen Flow Rate (L/min) 2 Oxygen Delivery Method Nasal Cannula Weight: 188 lb 14.978 oz Body Mass Index (BMI) 29.6 Intake and Output for Last 24 Hours 09/07/18 09/08/18 09/09/18 23:59 23:59 23:59 Intake Total 480 / 480 771 / 771 Balance 480 / 480 771 / 771 Microbiology Past 72 Hours 09/08/18 03:00 Urine Culture - Final Urine, Clean Catch Mixed Gram Positive Organisms 09/08/18 08:45 Influenza Types A,B Direct FA (ROMI) - Final Mucosa - Nose Laboratory Tests Past 24 Hrs 09/09/18 09/09/18 05:00 09:50 PT 24.0 H INR 2.2 Sodium 140 Potassium 3.8 Chloride 101 Carbon Dioxide 29.0 Anion Gap 10 BUN 19 H Creatinine 0.62 Estim Creat Clear Calc 48.00 Est GFR (MDRD) Af Amer 121 Est GFR (MDRD) Non-Af 100 BUN/Creatinine Ratio 30.6 H Glucose 148 H Calcium 8.9 Medical Necessity - Tobacco Use Smoking Status: Former smoker Assessment/Plan All Active Problems (Last Reviewed 09/08/18 @ 07:46 by Paulo Mota MD) Atrial fibrillation with RVR (Acute) Hypokalemia (Resolved) Metabolic alkalosis with respiratory acidosis (Resolved) 1. Acute COPD exacerbation with chronic hypoxic resp failure - improving. At home O2 level. Continue steroids and aerosols. Azithro x 3 doses 2. Afib with RVR - low hundreds now, however she had diltiazem drip increased. Continue atenolol. Maintain for at least 24 hours. Plan to transition to higher dose PO cardizem. Continue warfarin 3. Chronic diastolic CHF - maintain home lasix 4. HTN - stable. 5. Anx/depression - home meds DVT ppx: warfarin DC planning: Home. Pt plans to become permanent SNF resident after going home This patient was seen by Kris Pollard PA-C under the supervision of Dr. Ramirez. <Ailyn Ramirez E - Last Filed: 09/09/18 12:08> - Physical Exam Vital Signs Temp Pulse Resp BP Pulse Ox 98.1 F 89 23 H 104/69 96 09/09/18 07:00 09/09/18 12:00 09/09/18 12:00 09/09/18 12:00 09/09/18 12:00 Oxygen Flow Rate (L/min) 2 Oxygen Delivery Method Nasal Cannula Weight: 188 lb 14.978 oz Body Mass Index (BMI) 29.6 Intake and Output for Last 24 Hours 09/07/18 09/08/18 09/09/18 23:59 23:59 23:59 Intake Total 480 / 480 771 / 771 Balance 480 / 480 771 / 771 Microbiology Past 72 Hours 09/08/18 03:00 Urine Culture - Final Urine, Clean Catch Mixed Gram Positive Organisms 09/08/18 08:45 Influenza Types A,B Direct FA (ROMI) - Final Mucosa - Nose Laboratory Tests Past 24 Hrs 09/09/18 09/09/18 05:00 09:50 PT 24.0 H INR 2.2 Sodium 140 Potassium 3.8 Chloride 101 Carbon Dioxide 29.0 Anion Gap 10 BUN 19 H Creatinine 0.62 Estim Creat Clear Calc 48.00 Est GFR (MDRD) Af Amer 121 Est GFR (MDRD) Non-Af 100 BUN/Creatinine Ratio 30.6 H Glucose 148 H Calcium 8.9 Assessment/Plan Hospitalist note: I am seeing this patient in conjunction with Kris Pollard. I independently seen and examined the patient. Progress note above, laboratory data and imaging studies reviewed and I concur with the above treatment plan. Patient was admitted for worsening shortness of breath, found to have acute COPD exacerbation and A. fib with RVR. Today, she feels better, shortness of breath minimally elevated, still having some wheezing but slightly improved. Denied chest pain, palpitation, dizziness or lightheadedness. She remained on IV Cardizem drip, heart rate remained around 90s. She is afebrile, blood pressure stable, pulse ox is 97% on 2 L. - Physical Exam General: Alert, Oriented x3, Cooperative, minimally short of breath. HEENT: Atraumatic, PERRLA, EOMI. Neck: Supple, No JVD, Negative Carotid Bruits, Trachea Midline, Thyroid Normal. Lungs: Decreased breath sounds bilateral, bilateral expiratory wheezes, minimal shortness of breath, no rhonchi, No rales. Cardiovascular: Irregular rhythm, Normal S1, Normal S2, PMI Normal. Abdomen: Bowel Sounds Present, Soft, Non Tender, Non-Distended, No Hepato-splenomegaly. Extremities: No clubbing, No cyanosis, No edema Skin: No rashes, No breakdown Neurological: Neuro grossly intact Assessment and plan: #1 acute COPD exacerbation: With history of chronic respiratory failure on home oxygen. He is on IV steroids and bronchodilators as well as IV Zithromax. Chest x-ray reviewed, no acute findings. Today, she reported some improvement, has been on oxygen but she is still wheezing. Plan to continue same treatment. #2 A. fib with RVR: Remained on Cardizem drip, heart rate has been around 90s-100, blood pressure stable. She is on atenolol as well as Coumadin. INR therapeutic. #3 other chronic medical problems: Stable, continue current medications as above. This note was generated with [employer] dictation software. It may contain incorrect words, spelling, and punctuation that were not noted in checking the note before signing. Code Visit Inpatient E&M: 21329 Subs Hosp L2
--- NOTE | 2018-09-09 12:03 | PN_ITS ---
<Kris Pollard - Last Filed: 09/09/18 11:57> Subjective: Breathing improved. Satting 98% on home O2 level. Still somewhat wheezy and SOB but doing better overall. No increased LE edema. Cough with some sputum production. No fevers or chills. Pt refuses jes wraps. Legs not elevated - discussed the importance of this with edema. - Physical Exam General: Alert, Oriented x3, Cooperative HEENT: Atraumatic, PERRLA, EOMI, Normocephalic Neck: Supple, No JVD, Negative Carotid Bruits Lungs: Diminished, Wheezes Cardiovascular: Regular rate, No murmurs Abdomen: Bowel Sounds Present, Soft, Non Tender Extremities: Edema - 2+ pitting edema Skin: No rashes, No breakdown Musculoskeletal: No Tenderness to Palpation of Joints or Extremities Neurological: Cranial nerves II-XII grossly intact Psych/Mental Status: Appropriate, Anxious, Alert and oriented to time, place, person, mood and affect Vital Signs Temp Pulse Resp BP Pulse Ox 98.1 F 88 16 109/93 H 97 09/09/18 07:00 09/09/18 11:00 09/09/18 10:49 09/09/18 10:00 09/09/18 10:00 Oxygen Flow Rate (L/min) 2 Oxygen Delivery Method Nasal Cannula Weight: 188 lb 14.978 oz Body Mass Index (BMI) 29.6 Intake and Output for Last 24 Hours 09/07/18 09/08/18 09/09/18 23:59 23:59 23:59 Intake Total 480 / 480 771 / 771 Balance 480 / 480 771 / 771 Microbiology Past 72 Hours 09/08/18 03:00 Urine Culture - Final Urine, Clean Catch Mixed Gram Positive Organisms 09/08/18 08:45 Influenza Types A,B Direct FA (ROMI) - Final Mucosa - Nose Laboratory Tests Past 24 Hrs 09/09/18 09/09/18 05:00 09:50 PT 24.0 H INR 2.2 Sodium 140 Potassium 3.8 Chloride 101 Carbon Dioxide 29.0 Anion Gap 10 BUN 19 H Creatinine 0.62 Estim Creat Clear Calc 48.00 Est GFR (MDRD) Af Amer 121 Est GFR (MDRD) Non-Af 100 BUN/Creatinine Ratio 30.6 H Glucose 148 H Calcium 8.9 Medical Necessity - Tobacco Use Smoking Status: Former smoker Assessment/Plan All Active Problems (Last Reviewed 09/08/18 @ 07:46 by Paulo Mota MD) Atrial fibrillation with RVR (Acute) Hypokalemia (Resolved) Metabolic alkalosis with respiratory acidosis (Resolved) 1. Acute COPD exacerbation with chronic hypoxic resp failure - improving. At ho me O2 level. Continue steroids and aerosols. Azithro x 3 doses 2. Afib with RVR - low hundreds now, however she had diltiazem drip increased. Continue atenolol. Maintain for at least 24 hours. Plan to transition to higher dose PO cardizem. Continue warfarin 3. Chronic diastolic CHF - maintain home lasix 4. HTN - stable. 5. Anx/depression - home meds DVT ppx: warfarin DC planning: Home. Pt plans to become permanent SNF resident after going home This patient was seen by Kris Pollard PA-C under the supervision of Dr. Ramirez. <Ailyn Ramirez E - Last Filed: 09/09/18 12:08> - Physical Exam Vital Signs Temp Pulse Resp BP Pulse Ox 98.1 F 89 23 H 104/69 96 09/09/18 07:00 09/09/18 12:00 09/09/18 12:00 09/09/18 12:00 09/09/18 12:00 Oxygen Flow Rate (L/min) 2 Oxygen Delivery Method Nasal Cannula Weight: 188 lb 14.978 oz Body Mass Index (BMI) 29.6 Intake and Output for Last 24 Hours 09/07/18 09/08/18 09/09/18 23:59 23:59 23:59 Intake Total 480 / 480 771 / 771 Balance 480 / 480 771 / 771 Microbiology Past 72 Hours 09/08/18 03:00 Urine Culture - Final Urine, Clean Catch Mixed Gram Positive Organisms 09/08/18 08:45 Influenza Types A,B Direct FA (ROMI) - Final Mucosa - Nose Laboratory Tests Past 24 Hrs 09/09/18 09/09/18 05:00 09:50 PT 24.0 H INR 2.2 Sodium 140 Potassium 3.8 Chloride 101 Carbon Dioxide 29.0 Anion Gap 10 BUN 19 H Creatinine 0.62 Estim Creat Clear Calc 48.00 Est GFR (MDRD) Af Amer 121 Est GFR (MDRD) Non-Af 100 BUN/Creatinine Ratio 30.6 H Glucose 148 H Calcium 8.9 Assessment/Plan Hospitalist note: I am seeing this patient in conjunction with Kris Pollard. I independently seen and examined the patient. Progress note above, laboratory data and imaging studies reviewed and I concur with the above treatment plan. Patient was admitted for worsening shortness of breath, found to have acute COPD exacerbation and A. fib with RVR. Today, she feels better, shortness of breath minimally elevated, still having some wheezing but slightly improved. Denied chest pain, palpitation, dizziness or lightheadedness. She remained on IV Cardizem drip, heart rate remained around 90s. She is afebrile, blood pressure stable, pulse ox is 97% on 2 L. - Physical Exam General: Alert, Oriented x3, Cooperative, minimally short of breath. HEENT: Atraumatic, PERRLA, EOMI. Neck: Supple, No JVD, Negative Carotid Bruits, Trachea Midline, Thyroid Normal. Lungs: Decreased breath sounds bilateral, bilateral expiratory wheezes, minimal shortness of breath, no rhonchi, No rales. Cardiovascular: Irregular rhythm, Normal S1, Normal S2, PMI Normal. Abdomen: Bowel Sounds Present, Soft, Non Tender, Non-Distended, No Hepato- splenomegaly. Extremities: No clubbing, No cyanosis, No edema Skin: No rashes, No breakdown Neurological: Neuro grossly intact Assessment and plan: #1 acute COPD exacerbation: With history of chronic respiratory failure on home oxygen. He is on IV steroids and bronchodilators as well as IV Zithromax. Chest x-ray reviewed, no acute findings. Today, she reported some improvement, has been on oxygen but she is still wheezing. Plan to continue same treatment. #2 A. fib with RVR: Remained on Cardizem drip, heart rate has been around 90s- 100, blood pressure stable. She is on atenolol as well as Coumadin. INR therapeutic. #3 other chronic medical problems: Stable, continue current medications as above. This note was generated with [employer] software. It may contain incorrect words, spelling, and punctuation that were not noted in checking the note before signing. Code Visit Inpatient E&M: 94491 Subs Hosp L2
[2018-09-09] MEDS: Bisacodyl 5 MG Tablet PO (16:13)
[2018-09-09] MEDS: Benzonatate 100 MG Capsule PO (21:07)
[2018-09-09] MEDS: Zolpidem Tartrate 5 MG Tablet PO (22:00)
[2018-09-10] VITALS (29 sets, daily range): BP systolic 98–128; BP diastolic 62–89; PULSE 81–125; RESP 16–24; TEMP 36.3–37.1; O2SAT 96–99
[2018-09-10] MEDS: Ipratropium/Albuterol Sulfate 3 ML AMPUL.NEB INHALATION ×6 (04:18→22:46)
[2018-09-10] MEDS: MethylPREDNISolone 125 MG/2 ML Vial 60 MG IV (05:26)
[2018-09-10] MEDS: 0.9% NaCl Peripheral Flush Adult/Peds IV ×3 (05:27→22:37)
[2018-09-10] MEDS: Furosemide 40 MG Tablet PO ×2 (08:31→16:48)
[2018-09-10] MEDS: Atenolol 50 MG Tablet PO ×2 (08:31→22:33)
[2018-09-10] MEDS: Citalopram 20 MG Tablet PO ×2 (08:31→22:33)
[2018-09-10] MEDS: guaiFENesin 1,200 MG Tablet 1200 MG PO ×2 (08:32→22:33)
[2018-09-10] MEDS: Benzonatate 100 MG Capsule PO ×2 (08:33→18:42)
[2018-09-10] MEDS: Magnesium Hydroxide 30 ML UDC PO (08:34)
[2018-09-10] MEDS: dilTIAZem CD 120 MG Capsule PO (09:04)
[2018-09-10 09:42] LABS: International Normalized Ratio 2.5; Prothrombin Time (Protime)PT. 27.4 SECONDS (11.7-14.9)
--- NOTE | 2018-09-10 10:51 | CASEMGMT ---
YAO spoke with Stacy at [facility]. Patient stayed there exactly 20 days last time. She planned on going home and going back to [facility] September 28. She thought her Medicare SNF days would start back over by then. Stacy said they can complete a Medicaid application with patient. YAO faxed referral. Regla ANDERSON
--- NOTE | 2018-09-10 11:43 | CASEMGMT ---
[facility] can accept patient. They will help her apply for Medicaid and she will not have to pay anything until it is approved. SW spoke with patient and let her know this information. She said she cannot go to [facility] from [facility] as she has to take care of a few things first. She has furniture she is trying to sell, she has to go to the bank etc. She said her son will be staying with her until she goes to [facility]. She said she already told the physician this information. It would be preferable that patient go to [facility] from [facility]. However, if she is not in agreement and has things she needs to get done before she moves into [facility] we cannot force her to go. YAO will follow and assist with d/c planning. Regla VIZCARRA MSW
[2018-09-10] MEDS: Bisacodyl 5 MG Tablet PO (13:37)
--- NOTE | 2018-09-10 13:45 | PCM.PROGNOTE ---
<Kris Pollard - Last Filed: 09/10/18 13:45> Subjective: Still SOB especially with exertion, but overall somewhat improved since yesterday. LE Edema is improved. Rare cough - nonproductive. No fever or chills. Pt remains reluctant about going to skilled. - Physical Exam General: Alert, Oriented x3, Cooperative HEENT: Atraumatic, PERRLA, EOMI, Normocephalic Neck: Supple, No JVD, Negative Carotid Bruits Lungs: Diminished, Wheezes Cardiovascular: Regular rate, No murmurs Abdomen: Bowel Sounds Present, Soft, Non Tender Extremities: Capillary Refill Less than 3 Seconds, Edema - 2+ BL LE Skin: No rashes, No breakdown Musculoskeletal: No Tenderness to Palpation of Joints or Extremities Neurological: Cranial nerves II-XII grossly intact Psych/Mental Status: Normal Affect, Appropriate, Alert and oriented to time, place, person, mood and affect Vital Signs Temp Pulse Resp BP Pulse Ox 98.3 F 88 16 114/86 H 99 09/10/18 10:19 09/10/18 10:55 09/10/18 10:51 09/10/18 10:19 09/10/18 10:19 Oxygen Flow Rate (L/min) 2 Oxygen Delivery Method Nasal Cannula Weight: 188 lb 14.978 oz Body Mass Index (BMI) 29.6 Intake and Output for Last 24 Hours 09/08/18 09/09/18 09/10/18 23:59 23:59 23:59 Intake Total 480 / 480 1539 / 1539 1290.1 / 1290.1 Balance 480 / 480 1539 / 1539 1290.1 / 1290.1 Microbiology Past 72 Hours 09/08/18 03:00 Urine Culture - Final Urine, Clean Catch Mixed Gram Positive Organisms 09/08/18 08:45 Influenza Types A,B Direct FA (ROMI) - Final Mucosa - Nose Laboratory Tests Past 24 Hrs 09/10/18 09:20 PT 27.4 H INR 2.5 Medical Necessity - Tobacco Use Smoking Status: Former smoker Assessment/Plan All Active Problems (Last Reviewed 09/08/18 @ 07:46 by Paulo Mota MD) Atrial fibrillation with RVR (Acute) Hypokalemia (Resolved) Metabolic alkalosis with respiratory acidosis (Resolved) 1. Acute COPD exacerbation with chronic hypoxic resp failure - improving. At home O2 level saturating very well, though still very wheezy. Continue steroids and aerosols. Azithro x 3 doses. Continue Incentive Spirometer - coached her on how to use and frequency. Repeat Echo shows EF 60%, RVSP 35 mmHg. 2. Afib with RVR - cardizem decreased. Transition to PO tomorrow if controlled. Minimize albuterol use. 3. Chronic diastolic CHF - maintain home lasix 4. HTN - stable. 5. Anx/depression - home meds DVT ppx: warfarin DC planning: Home. Pt plans to become permanent SNF resident after going home, social work to discuss the need for direct transition [facility] at this point. This patient was seen by Kris Pollard PA-C under the supervision of Dr. Lema <Ryann Lema - Last Filed: 09/10/18 15:55> - Physical Exam Vital Signs Temp Pulse Resp BP Pulse Ox 97.8 F 96 16 113/62 96 09/10/18 15:42 09/10/18 15:42 09/10/18 15:42 09/10/18 15:42 09/10/18 15:42 Oxygen Flow Rate (L/min) 2 Oxygen Delivery Method Nasal Cannula Weight: 188 lb 14.978 oz Body Mass Index (BMI) 29.6 Intake and Output for Last 24 Hours 09/08/18 09/09/18 09/10/18 23:59 23:59 23:59 Intake Total 480 / 480 1539 / 1539 1290.1 / 1290.1 Balance 480 / 480 1539 / 1539 1290.1 / 1290.1 Microbiology Past 72 Hours 09/08/18 02:54 Blood Culture - Preliminary Blood Culture (Wb) - Anticubital Left No growth in 48 hours. 09/08/18 03:23 Blood Culture - Preliminary Blood Culture (Wb) - Right Forearm No growth in 48 hours. 09/08/18 03:00 Urine Culture - Final Urine, Clean Catch Mixed Gram Positive Organisms 09/08/18 08:45 Influenza Types A,B Direct FA (ROMI) - Final Mucosa - Nose Laboratory Tests Past 24 Hrs 09/10/18 09:20 PT 27.4 H INR 2.5 Assessment/Plan Patient seen by Kris Pollard PA-C under my supervision Patient seen and examined. She is been managed for acute COPD exacerbation and A. fib with RVR. Patient remained on Cardizem drip. Heart rate was well controlled and blood pressure also is well controlled. Her shortness of breath had resolved and patient felt better. Review of systems otherwise negative. Labs and vitals reviewed. o/e: Vital Signs Height 5 ft 7 in Weight: 188 lb 14.978 oz Weight in Pounds 188.9 lbs Pulse Ox 96 Temperature 97.8 F Pulse Rate 96 Respiratory Rate 16 Blood Pressure [BP] 114/86 Blood Pressure 113/62 Blood Pressure Position [BP] Sitting Blood Pressure Position Semi-Fowlers General: Alert, Oriented x3, Cooperative HEENT: Atraumatic, PERRLA, EOMI, Normocephalic Neck: Supple, No JVD, Negative Carotid Bruits Lungs: Diminished, Wheezes Cardiovascular: Regular rate, No murmurs Abdomen: Bowel Sounds Present, Soft, Non Tender Extremities: Capillary Refill Less than 3 Seconds, Edema - 1+ BL LE Skin: No rashes, No breakdown Musculoskeletal: No Tenderness to Palpation of Joints or Extremities Neurological: Cranial nerves II-XII grossly intact Psych/Mental Status: Normal Affect, Appropriate, Alert and oriented to time, place, person, mood and affect Plan is to taper off Cardizem drip and resume her p.o. Cardizem at current home dose of 120 mg daily. She is continue atenolol 50 mg daily. To monitor heart rate overnight. Will DC albuterol as it causes tachycardia. To continue with Atrovent breathing treatments. Of note, patient has been due to follow-up with Dr. Jaffe but had refused follow-up. During this admission, she stated again that she will to follow-up with pulmonology or cardiology as she states that her primary care doctor manages all her conditions. Patient insists that she will continue to do this even despite advised to follow-up with cardiology and pulmonology. Rest of management as per Kris Pollard PA-C's note, which I have reviewed and agree with. Code Visit Inpatient E&M: 85634 Subs Hosp L3
[2018-09-10] MEDS: Zolpidem Tartrate 5 MG Tablet PO (22:34)
[2018-09-11] VITALS (8 sets, daily range): BP systolic 112–139; BP diastolic 84–91; PULSE 88–108; RESP 18–22; TEMP 36.8–36.9; O2SAT 94–98
[2018-09-11] MEDS: Ipratropium/Albuterol Sulfate 3 ML AMPUL.NEB INHALATION ×3 (04:38→11:00)
[2018-09-11] MEDS: 0.9% NaCl Peripheral Flush Adult/Peds IV (05:51)
[2018-09-11] MEDS: Benzonatate 100 MG Capsule PO (06:01)
--- NOTE | 2018-09-11 09:09 | SLEEP ---
I was asked to see the patient per Respiratory Therapy for sleep related questions. She has had multiple admission over the last year for a variety of reasons. She is currently doing rehab at [facility] for PT, OT so that she can return home. Pt has hx of COPD, CHF and chronic A-Fib. Her primary care is Dr. Perez and (per pt) she has had a [facility]ist in the past that she does not want to see again. She could not remember a name. She wants to see Dr. Mcnair at [facility] for pulmonary and sleep disorder management. She explained that she had been on a machine before that required ABG's to qualify. This sound like NIV (home ventilation) or bipap. She explained that she used it in the assisted and took the machine home but had to return it to the equipment company d/t the F renting the equipment. ECF's usually have their own contracts for DME. She could not remember the name of the DME company. She needs evaluated for NIV vs PAP for pulmonary and sleep issues. She screens postivie for ANKUSH/CSA for an Mitchell Sleepiness Score of 14, hx of CHF, COPD and chronic A-Fib. She also c/o night sweats, daytime sleepiness, restlessness, insomnia, legs kicking/twitching, creepy-crawly feeling in legs that relieves with mvt, frequent morning headaches, frequent loss of energy, frequent morning dry mouth and nocturia. If ANKUSH/CSA is ruled out, then she may qualify for NIV. She currently wears oxygen at home and at the [facility]. I encouraged her to follow up with [facility]. Brochure given. I gave her my card to call if she has any questions about testing and/or PAP tx options.
[2018-09-11] MEDS: dilTIAZem CD 120 MG Capsule PO (10:09)
[2018-09-11] MEDS: Citalopram 20 MG Tablet PO (10:09)
[2018-09-11] MEDS: guaiFENesin 1,200 MG Tablet 1200 MG PO (10:09)
[2018-09-11] MEDS: Atenolol 50 MG Tablet PO (10:09)
[2018-09-11] MEDS: Furosemide 40 MG Tablet PO (10:10)
--- NOTE | 2018-09-11 10:16 | CASEMGMT ---
This RN CM to room to discuss discharge plan with pt at this time. Pt is aware of therapy recommendations at this time and declines HHC or OP therapy at this time. Pt states her son will be staying with her and will be able to help her with whatever she needs. Pt is already on 2 liters oxygen at home and that is what she is on currently at this time. Pt voices no further concerns/needs at this time. SStaten MAGO DANIEL
[2018-09-11 10:45] LABS: International Normalized Ratio 2.8; Prothrombin Time (Protime)PT. 29.6 SECONDS (11.7-14.9)
--- NOTE | 2018-09-11 10:57 | DCINST_ITS ---
You will use the following diet at home:: Cardiac - <2 grams sodioum daily Your food should be the consistency of: Regular Your liquids should be the consistency of: Regular/Thin Discharge Activity: Return to Normal Activity Instructions: ED COPD Flare Allergies/Adverse Reactions: Allergies amlodipine besylate [From [facility]] Adverse Reaction (Verified 09/08/18 02:25) ANKLE AND LEG EDEMA RESOLVED OFF MED-PER PCP PAPERWORK codeine Adverse Reaction (Verified 09/08/18 02:25) MENTAL STATUS CHANGE lisinopril Adverse Reaction (Verified 09/08/18 02:25) COUGH Medications to take at Discharge Ergocalciferol [Vitamin D] 50,000 unit PO TH 07/19/15 Warfarin Sodium 2.5 mg PO DAILY 03/08/18 Furosemide 40 mg PO BID #60 tab 03/11/18 Ascorbic Acid [Vitamin C] 500 mg PO DAILY 05/23/18 Citalopram Hydrobromide [Citalopram HBr] 40 mg PO DAILY 05/23/18 Cyanocobalamin (Vitamin B-12) [Vitamin B-12] 500 mcg PO DAILY 05/23/18 Ipratropium/Albuterol Sulfate [Duoneb] 3 ml INHALATION 4X/DAY 08/10/18 Acetaminophen [Tylenol Tablet] 650 mg PO Q6H PRN PRN tablet 08/12/18 Atenolol [Tenormin (beta donna)] 50 mg PO BID 09/08/18 Diltiazem CD [Cardizem CD] 120 mg PO DAILY 09/08/18 Zolpidem Tartrate [Ambien] 10 mg PO QHS PRN PRN 09/09/18 Benzonatate [Tessalon Perle] 100 mg PO 4X/DAY PRN PRN #12 cap 09/11/18 Guaifenesin [Mucinex] 1,200 mg PO BID PRN PRN #10 tab 09/11/18 Prednisone 10 mg PO UD #30 tab 09/11/18 The following prescriptions were given: Benzonatate [Tessalon Perle] 100 mg PO 4X/DAY PRN PRN #12 cap PRN Reason: COUGH Guaifenesin [Mucinex] 1,200 mg PO BID PRN PRN #10 tab PRN Reason: Cough Prednisone 10 mg PO UD #30 tab Primary Care Physician: José Perez MD [Primary Care Provider] - Please follow up with your Primary Care Physician in: 1-2 weeks Test Results: Test results from this visit will be discussed in further detail at your follow- up appointment, if applicable. Please Follow Up With: Tor Jaffe MD When: 2-3 weeks Please Follow Up With: Mani Mcnair MD When: 1-2 weeks Proposed Discharge Date: 09/11/18
--- NOTE | 2018-09-11 11:40 | PHA.DC.MR ---
Pharmacy Service has performed discharge medication reconciliation for this patient upon transfer to [facility]. The patient's discharge medication list was reviewed for discrepancies and discrepancies were resolved. Home Medications Ergocalciferol [Vitamin D] 50,000 unit PO TH 07/19/15 Warfarin Sodium 2.5 mg PO DAILY 03/08/18 Furosemide 40 mg PO BID #60 tab 03/11/18 Ascorbic Acid [Vitamin C] 500 mg PO DAILY 05/23/18 Citalopram Hydrobromide [Citalopram HBr] 40 mg PO DAILY 05/23/18 Cyanocobalamin (Vitamin B-12) [Vitamin B-12] 500 mcg PO DAILY 05/23/18 Ipratropium/Albuterol Sulfate [Duoneb] 3 ml INHALATION 4X/DAY 08/10/18 Acetaminophen [Tylenol Tablet] 650 mg PO Q6H PRN PRN tablet 08/12/18 Atenolol [Tenormin (beta donna)] 50 mg PO BID 09/08/18 Diltiazem CD [Cardizem CD] 120 mg PO DAILY 09/08/18 Zolpidem Tartrate [Ambien] 10 mg PO QHS PRN PRN 09/09/18 Benzonatate [Tessalon Perle] 100 mg PO 4X/DAY PRN PRN #12 cap 09/11/18 Guaifenesin [Mucinex] 1,200 mg PO BID PRN PRN #10 tab 09/11/18 Prednisone 10 mg PO UD #30 tab 09/11/18
--- NOTE | 2018-09-11 13:16 | PCM.DC.SUM ---
<Kris Pollard - Last Filed: 09/11/18 13:16> Discharge Date and Diagnosis Date of Admission: 09/08/18 Date of Discharge: 09/11/18 - Primary Discharge Diagnosis Acute COPD exacerbation Atrial fibrillation with RVR History of chronic diastolic congestive heart failure, no acute exacerbation Hypertension Anxiety and depression Debility - Secondary Discharge Diagnosis Chronic Problems (Last Reviewed 09/08/18 @ 07:46 by Paulo Mota MD) Depression (Chronic) PAF (paroxysmal atrial fibrillation) (Chronic) Obesity (BMI 30.0-34.9) (Chronic) Former tobacco use (Chronic) Diastolic dysfunction (Chronic) Chronic hypoxemic respiratory failure (Chronic) Chronic anticoagulation (Chronic) Chronic a-fib (Chronic) Dyslipidemia (Chronic) COPD (chronic obstructive pulmonary disease) (Chronic) Hospital Course and Treatment Imaging Results: RAD/Chest 1 View (Portable) IMPRESSION: Stable, nonacute portable x-ray examination of the chest. Echo: Interpretation Summary The study was technically difficult. Left ventricular systolic function is normal. The estimated ejection fraction is 60 %. The left atrium is mildly enlarged. The right atrium is moderately enlarged. There is moderate mitral annular calcification. Extension of the mitral annular calcification on to the mitral valve leaflet. Trivial mitral valve insufficiency. Mild tricuspid valve insufficiency. Moderate focal aortic valve calcification. Right ventricular systolic pressure estimated to be 35 mmHg. Unable to assess diastolic dysfunction. Operations: None Procedures: 2-D Echocardiogram Summary of Care Provided: Hospital course: The patient is a 72 year old F with past medical history of COPD, chronic hypoxic respiratory failure with baseline of 2 L/min via nasal cannula, paroxysmal atrial fibrillation, chronic diastolic congestive heart failure, hypertension, hyperlipidemia, who was at multiple admissions within the past year for COPD exacerbations, CHF exacerbations, atrial fibrillation with RVR. She has a history of going into RVR with heavy albuterol use. She presented to the ER with increasing shortness of breath. Chest x-ray was negative. She did not appear to be in acute CHF exacerbation. She is felt to be in acute COPD exacerbation. She is given aerosols,Solu-Medrol, and azithromycin and admitted to the PCU on telemetry. She was had no fever or white count was not felt to have an underlying infectious process. With aerosol therapy she developed A. fib with RVR. She was placed on a Cardizem drip. Patient responded well but slowly to therapy. A repeat echo was done with no acute changes. following her last admission she was discharged to prison, did physical therapy there and then was discharged home. She continued to have underlying physical debility. She reported that she is supposed to be transitioning to the prison facility permanently but needed to finalize some personal arrangements at home. The patient was able to be weaned back down to her normal oxygen dose. She was ambulated in the hallway and did not desaturate. She was transitioned back to her prior Cardizem dose. We recommended that the patient be discharged to prison, however she refused, stating that she was going to go home and finalize her arrangements and then get admitted to prison as an outpatient. She has a home nebulizer and home oxygen already, with DuoNeb's. She was discharged home in stable condition, she will complete a prednisone taper. She will need to follow-up with her PCP in 1-2 weeks. She was supposed to follow-up in the past as an outpatient with Dr. Jaffe and with Dr. Mcnair for cardiology and pulmonology respectively, she has not done this. She stated that she was concerned that insurance would not pay for her office visits. Social work address this issue with her, as investigation revealed her office visits would be covered by insurance. The patient agreed to follow-up with cardiology and pulmonology as an outpatient. Recommend that she do this within the next 2 weeks. This patient was seen by Kris Pollard PA-C under the supervision of Doctor Pita. [] - Physical Exam General: Alert, Oriented x3, Cooperative HEENT: Atraumatic, PERRLA, EOMI, Normocephalic Neck: Supple, No JVD, Negative Carotid Bruits Lungs: Wheezes Cardiovascular: Regular rate, No murmurs Abdomen: Bowel Sounds Present, Soft, Non Tender Extremities: Edema - 1+ pitting edema BLE Skin: No rashes, No breakdown Musculoskeletal: No Tenderness to Palpation of Joints or Extremities Neurological: Cranial nerves II-XII grossly intact Psych/Mental Status: Normal Affect, Appropriate, Alert and oriented to time, place, person, mood and affect Vital Signs Temp Pulse Resp BP Pulse Ox 98.3 F 108 H 18 139/91 H 98 09/11/18 10:05 09/11/18 11:16 09/11/18 11:00 09/11/18 10:05 09/11/18 10:05 Oxygen Flow Rate (L/min) 2 Oxygen Delivery Method Nasal Cannula Weight: 188 lb 14.978 oz Body Mass Index (BMI) 29.6 Intake and Output for Last 24 Hours 09/09/18 09/10/18 09/11/18 23:59 23:59 23:59 Intake Total 1538 / 1538 1959.1959.1 360 / 360 Balance 1538 / 1538 1959.1959. 360 / 360 Microbiology Past 72 Hours 09/08/18 02:54 Blood Culture - Preliminary Blood Culture (Wb) - Anticubital Left No growth in 48 hours. 09/08/18 03:23 Blood Culture - Preliminary Blood Culture (Wb) - Right Forearm No growth in 48 hours. 09/08/18 03:00 Urine Culture - Final Urine, Clean Catch Mixed Gram Positive Organisms 09/08/18 08:45 Influenza Types A,B Direct FA (ROMI) - Final Mucosa - Nose Laboratory Tests Past 24 Hrs 09/11/18 10:20 PT 29.6 H INR 2.8 Discharge Diet: Low fat/ Low Cholesterol, 1800 Calorie Control Diet, 2000 mg Sodium Diet Discharge Activity: Return to Normal Activity Home Medications: Medications to take at Discharge Ergocalciferol [Vitamin D] 50,000 unit PO TH 07/19/15 Warfarin Sodium 2.5 mg PO DAILY 03/08/18 Furosemide 40 mg PO BID #60 tab 03/11/18 Ascorbic Acid [Vitamin C] 500 mg PO DAILY 05/23/18 Citalopram Hydrobromide [Citalopram HBr] 40 mg PO DAILY 05/23/18 Cyanocobalamin (Vitamin B-12) [Vitamin B-12] 500 mcg PO DAILY 05/23/18 Ipratropium/Albuterol Sulfate [Duoneb] 3 ml INHALATION 4X/DAY 08/10/18 Acetaminophen [Tylenol Tablet] 650 mg PO Q6H PRN PRN tablet 08/12/18 Atenolol [Tenormin (beta donna)] 50 mg PO BID 09/08/18 Diltiazem CD [Cardizem CD] 120 mg PO DAILY 09/08/18 Zolpidem Tartrate [Ambien] 10 mg PO QHS PRN PRN 09/09/18 Benzonatate [Tessalon Perle] 100 mg PO 4X/DAY PRN PRN #12 cap 09/11/18 Guaifenesin [Mucinex] 1,200 mg PO BID PRN PRN #10 tab 09/11/18 Prednisone 10 mg PO UD #30 tab 09/11/18 Following Prescrptions Were Given to Patient: Benzonatate [Tessalon Perle] 100 mg PO 4X/DAY PRN PRN #12 cap PRN Reason: COUGH Guaifenesin [Mucinex] 1,200 mg PO BID PRN PRN #10 tab PRN Reason: Cough Prednisone 10 mg PO UD #30 tab Primary Care Physician: José Perez MD [Primary Care Provider] - Please follow up with your Primary Care Physician in: 1-2 weeks Please Follow Up With: Tor Jaffe MD When: 2-3 weeks Please Follow Up With: Mani Mcnair MD When: 1-2 weeks Patient Instructions: ED COPD Flare Disposition: Home Minutes spent on discharge:: 35 Patient Condition:: Stable Medical Necessity - Tobacco Use Smoking Status: Former smoker Meaningful Use Info Meaningful Use Diagnoses (Choose all that apply): None applicable <Ryann Lema - Last Filed: 09/11/18 14:23> Discharge Date and Diagnosis - Secondary Discharge Diagnosis Chronic Problems (Last Reviewed 09/08/18 @ 07:46 by Paulo Mota MD) Depression (Chronic) PAF (paroxysmal atrial fibrillation) (Chronic) Obesity (BMI 30.0-34.9) (Chronic) Former tobacco use (Chronic) Diastolic dysfunction (Chronic) Chronic hypoxemic respiratory failure (Chronic) Chronic anticoagulation (Chronic) Chronic a-fib (Chronic) Dyslipidemia (Chronic) COPD (chronic obstructive pulmonary disease) (Chronic) Hospital Course and Treatment Summary of Care Provided: Patient seen by Kris Pollard PA-C under my supervision The patient is a 72 year old F with a past medical history as listed including COPD and chronic hypoxic respiratory failure on baseline 2 L of oxygen as well as paroxysmal A. fib and chronic diastolic heart failure. She was admitted to the ED with a complaint of worsening shortness of breath and was managed for COPD exacerbation. Chest x-ray was negative. She was started on breathing treatments, IV azithromycin and Solu-Medrol. When she was started on breathing treatments containing albuterol, she developed A. fib with RVR. She was placed on Cardizem drip and heart rate gradually improved. 2D echocardiogram done showed EF of 60% with RVSP of 35mmHg and unable to assess diastolic dysfunction. Patient was transitioned back to her p.o. Cardizem as well as her metoprolol and albuterol was stopped. She remained stable. Of note, patient had refused to follow-up with pulmonology and cardiology on outpatient basis. Patient also refused to go to prison facility for rehab. Patient did not desaturate on walking pulse ox and maintain his saturation on his baseline 2 L of oxygen. She was discharged home on 09/11/2018 with a prescription for prednisone taper, was counseled strongly to follow-up with cardiology and pulmonology. Patient seen and examined prior to discharge. She had no complaints and felt well. Review of systems otherwise negative. Labs and vitals reviewed. o/e: Vital Signs Height 5 ft 7 in Weight: 188 lb 14.978 oz Weight in Pounds 188.9 lbs Pulse Ox 98 Temperature 98.3 F Pulse Rate 108 Respiratory Rate 18 Blood Pressure [BP] 114/86 Blood Pressure 139/91 Blood Pressure Position [BP] Sitting Blood Pressure Position Sitting [] General: Alert, Oriented x3, Cooperative HEENT: Atraumatic, PERRLA, EOMI, Normocephalic Neck: Supple, No JVD, Negative Carotid Bruits Lungs: mild wheezing and rhonchi in all lung [place]lin, on 2L of oxygen, which is her baseline. Cardiovascular: Regular rate, No murmurs Abdomen: Bowel Sounds Present, Soft, Non Tender Extremities: Capillary Refill Less than 3 Seconds, Edema - 1+ BL LE Skin: No rashes, No breakdown Musculoskeletal: No Tenderness to Palpation of Joints or Extremities Neurological: Cranial nerves II-XII grossly intact Psych/Mental Status: Normal Affect, Appropriate, Alert and oriented to time, place, person, mood and affect Plan as discussed above. Rest of management as per Kris oPllard PA-C's note, which I have reviewed and agree with. - Physical Exam Vital Signs Temp Pulse Resp BP Pulse Ox 98.3 F 108 H 18 139/91 H 98 09/11/18 10:05 09/11/18 11:16 09/11/18 11:00 09/11/18 10:05 09/11/18 10:05 Oxygen Flow Rate (L/min) 2 Oxygen Delivery Method Nasal Cannula Weight: 188 lb 14.978 oz Body Mass Index (BMI) 29.6 Intake and Output for Last 24 Hours 09/09/18 09/10/18 09/11/18 23:59 23:59 23:59 Intake Total 1538.1959. 360 / 360 Balance 1538. 360 / 360 Microbiology Past 72 Hours 09/08/18 02:54 Blood Culture - Preliminary Blood Culture (Wb) - Anticubital Left No growth in 48 hours. 09/08/18 03:23 Blood Culture - Preliminary Blood Culture (Wb) - Right Forearm No growth in 48 hours. 09/08/18 03:00 Urine Culture - Final Urine, Clean Catch Mixed Gram Positive Organisms 09/08/18 08:45 Influenza Types A,B Direct FA (ROMI) - Final Mucosa - Nose Laboratory Tests Past 24 Hrs 09/11/18 10:20 PT 29.6 H INR 2.8 Code Visit Inpatient E&M: 34554 Disch Hosp
--- NOTE | 2018-09-11 13:22 | DS.PCM_ITS ---
<Kris Pollard - Last Filed: 09/11/18 13:16> Discharge Date and Diagnosis Date of Admission: 09/08/18 Date of Discharge: 09/11/18 - Primary Discharge Diagnosis Acute COPD exacerbation Atrial fibrillation with RVR History of chronic diastolic congestive heart failure, no acute exacerbation Hypertension Anxiety and depression Debility - Secondary Discharge Diagnosis Chronic Problems (Last Reviewed 09/08/18 @ 07:46 by Paulo Mota MD) Depression (Chronic) PAF (paroxysmal atrial fibrillation) (Chronic) Obesity (BMI 30.0-34.9) (Chronic) Former tobacco use (Chronic) Diastolic dysfunction (Chronic) Chronic hypoxemic respiratory failure (Chronic) Chronic anticoagulation (Chronic) Chronic a-fib (Chronic) Dyslipidemia (Chronic) COPD (chronic obstructive pulmonary disease) (Chronic) Hospital Course and Treatment Imaging Results: RAD/Chest 1 View (Portable) IMPRESSION: Stable, nonacute portable x-ray examination of the chest. Echo: Interpretation Summary The study was technically difficult. Left ventricular systolic function is normal. The estimated ejection fraction is 60 %. The left atrium is mildly enlarged. The right atrium is moderately enlarged. There is moderate mitral annular calcification. Extension of the mitral annular calcification on to the mitral valve leaflet. Trivial mitral valve insufficiency. Mild tricuspid valve insufficiency. Moderate focal aortic valve calcification. Right ventricular systolic pressure estimated to be 35 mmHg. Unable to assess diastolic dysfunction. Operations: None Procedures: 2-D Echocardiogram Summary of Care Provided: Hospital course: The patient is a 72 year old F with past medical history of COPD, chronic hypoxic respiratory failure with baseline of 2 L/min via nasal cannula, paroxysmal atrial fibrillation, chronic diastolic congestive heart failure, hypertension, hyperlipidemia, who was at multiple admissions within the past year for COPD exacerbations, CHF exacerbations, atrial fibrillation with RVR. She has a history of going into RVR with heavy albuterol use. She presented to the ER with increasing shortness of breath. Chest x-ray was negative. She did not appear to be in acute CHF exacerbation. She is felt to be in acute COPD exacerbation. She is given aerosols,Solu-Medrol, and azithromycin and admitted to the PCU on telemetry. She was had no fever or white count was not felt to have an underlying infectious process. With aerosol therapy she developed A. fib with RVR. She was placed on a Cardizem drip. Patient responded well but slowly to therapy. A repeat echo was done with no acute changes. following her last admission she was discharged to detention, did physical therapy there and then was discharged home. She continued to have underlying physical debility. She reported that she is supposed to be transitioning to the detention facility permanently but needed to finalize some personal arrangements at home. The patient was able to be weaned back down to her normal oxygen dose. She was ambulated in the hallway and did not desaturate. She was transitioned back to her prior Cardizem dose. We recommended that the patient be discharged to detention, however she refused, stating that she was going to go home and finalize her arrangements and then get admitted to detention as an outpatient. She has a home nebulizer and home oxygen already, with DuoNeb's. She was discharged home in stable condition, she will complete a prednisone taper. She will need to follow-up with her PCP in 1-2 weeks. She was supposed to follow-up in the past as an outpatient with Dr. Jaffe and with Dr. Mcnair for cardiology and pulmonology respectively, she has not done this. She stated that she was concerned that insurance would not pay for her office visits. Social work address this issue with her, as investigation revealed her office visits would be covered by insurance. The patient agreed to follow-up with cardiology and pulmonology as an outpatient. Recommend that she do this within the next 2 weeks. This patient was seen by Kris Pollard PA-C under the supervision of Doctor Pita. [] - Physical Exam General: Alert, Oriented x3, Cooperative HEENT: Atraumatic, PERRLA, EOMI, Normocephalic Neck: Supple, No JVD, Negative Carotid Bruits Lungs: Wheezes Cardiovascular: Regular rate, No murmurs Abdomen: Bowel Sounds Present, Soft, Non Tender Extremities: Edema - 1+ pitting edema BLE Skin: No rashes, No breakdown Musculoskeletal: No Tenderness to Palpation of Joints or Extremities Neurological: Cranial nerves II-XII grossly intact Psych/Mental Status: Normal Affect, Appropriate, Alert and oriented to time, place, person, mood and affect Vital Signs Temp Pulse Resp BP Pulse Ox 98.3 F 108 H 18 139/91 H 98 09/11/18 10:05 09/11/18 11:16 09/11/18 11:00 09/11/18 10:05 09/11/18 10:05 Oxygen Flow Rate (L/min) 2 Oxygen Delivery Method Nasal Cannula Weight: 188 lb 14.978 oz Body Mass Index (BMI) 29.6 Intake and Output for Last 24 Hours 09/09/18 09/10/18 09/11/18 23:59 23:59 23:59 Intake Total 1538 / 1538 1959.1959.1 360 / 360 Balance 1538 / 1538 1959.1959. 360 / 360 Microbiology Past 72 Hours 09/08/18 02:54 Blood Culture - Preliminary Blood Culture (Wb) - Anticubital Left No growth in 48 hours. 09/08/18 03:23 Blood Culture - Preliminary Blood Culture (Wb) - Right Forearm No growth in 48 hours. 09/08/18 03:00 Urine Culture - Final Urine, Clean Catch Mixed Gram Positive Organisms 09/08/18 08:45 Influenza Types A,B Direct FA (ROMI) - Final Mucosa - Nose Laboratory Tests Past 24 Hrs 09/11/18 10:20 PT 29.6 H INR 2.8 Discharge Diet: Low fat/ Low Cholesterol, 1800 Calorie Control Diet, 2000 mg Sodium Diet Discharge Activity: Return to Normal Activity Home Medications: Medications to take at Discharge Ergocalciferol [Vitamin D] 50,000 unit PO TH 07/19/15 Warfarin Sodium 2.5 mg PO DAILY 03/08/18 Furosemide 40 mg PO BID #60 tab 03/11/18 Ascorbic Acid [Vitamin C] 500 mg PO DAILY 05/23/18 Citalopram Hydrobromide [Citalopram HBr] 40 mg PO DAILY 05/23/18 Cyanocobalamin (Vitamin B-12) [Vitamin B-12] 500 mcg PO DAILY 05/23/18 Ipratropium/Albuterol Sulfate [Duoneb] 3 ml INHALATION 4X/DAY 08/10/18 Acetaminophen [Tylenol Tablet] 650 mg PO Q6H PRN PRN tablet 08/12/18 Atenolol [Tenormin (beta donna)] 50 mg PO BID 09/08/18 Diltiazem CD [Cardizem CD] 120 mg PO DAILY 09/08/18 Zolpidem Tartrate [Ambien] 10 mg PO QHS PRN PRN 09/09/18 Benzonatate [Tessalon Perle] 100 mg PO 4X/DAY PRN PRN #12 cap 09/11/18 Guaifenesin [Mucinex] 1,200 mg PO BID PRN PRN #10 tab 09/11/18 Prednisone 10 mg PO UD #30 tab 09/11/18 Following Prescrptions Were Given to Patient: Benzonatate [Tessalon Perle] 100 mg PO 4X/DAY PRN PRN #12 cap PRN Reason: COUGH Guaifenesin [Mucinex] 1,200 mg PO BID PRN PRN #10 tab PRN Reason: Cough Prednisone 10 mg PO UD #30 tab Primary Care Physician: José Perez MD [Primary Care Provider] - Please follow up with your Primary Care Physician in: 1-2 weeks Please Follow Up With: Tor Jaffe MD When: 2-3 weeks Please Follow Up With: Mani Mcnair MD When: 1-2 weeks Patient Instructions: ED COPD Flare Disposition: Home Minutes spent on discharge:: 35 Patient Condition:: Stable Medical Necessity - Tobacco Use Smoking Status: Former smoker Meaningful Use Info Meaningful Use Diagnoses (Choose all that apply): None applicable <Ryann Lema - Last Filed: 09/11/18 14:23> Discharge Date and Diagnosis - Secondary Discharge Diagnosis Chronic Problems (Last Reviewed 09/08/18 @ 07:46 by Paulo Mota MD) Depression (Chronic) PAF (paroxysmal atrial fibrillation) (Chronic) Obesity (BMI 30.0-34.9) (Chronic) Former tobacco use (Chronic) Diastolic dysfunction (Chronic) Chronic hypoxemic respiratory failure (Chronic) Chronic anticoagulation (Chronic) Chronic a-fib (Chronic) Dyslipidemia (Chronic) COPD (chronic obstructive pulmonary disease) (Chronic) Hospital Course and Treatment Summary of Care Provided: Patient seen by Kris Pollard PA-C under my supervision The patient is a 72 year old F with a past medical history as listed including COPD and chronic hypoxic respiratory failure on baseline 2 L of oxygen as well as paroxysmal A. fib and chronic diastolic heart failure. She was admitted to the ED with a complaint of worsening shortness of breath and was managed for COPD exacerbation. Chest x-ray was negative. She was started on breathing treatments, IV azithromycin and Solu-Medrol. When she was started on breathing treatments containing albuterol, she developed A. fib with RVR. She was placed on Cardizem drip and heart rate gradually improved. 2D echocardiogram done showed EF of 60% with RVSP of 35mmHg and unable to assess diastolic dysfunction. Patient was transitioned back to her p.o. Cardizem as well as her metoprolol an d albuterol was stopped. She remained stable. Of note, patient had refused to follow-up with pulmonology and cardiology on outpatient basis. Patient also refused to go to detention facility for rehab. Patient did not desaturate on walking pulse ox and maintain his saturation on his baseline 2 L of oxygen. She was discharged home on 09/11/2018 with a prescription for prednisone taper, was counseled strongly to follow-up with cardiology and pulmonology. Patient seen and examined prior to discharge. She had no complaints and felt well. Review of systems otherwise negative. Labs and vitals reviewed. o/e: Vital Signs Height 5 ft 7 in Weight: 188 lb 14.978 oz Weight in Pounds 188.9 lbs Pulse Ox 98 Temperature 98.3 F Pulse Rate 108 Respiratory Rate 18 Blood Pressure [BP] 114/86 Blood Pressure 139/91 Blood Pressure Position [BP] Sitting Blood Pressure Position Sitting [] General: Alert, Oriented x3, Cooperative HEENT: Atraumatic, PERRLA, EOMI, Normocephalic Neck: Supple, No JVD, Negative Carotid Bruits Lungs: mild wheezing and rhonchi in all lung [place], on 2L of oxygen, which is her baseline. Cardiovascular: Regular rate, No murmurs Abdomen: Bowel Sounds Present, Soft, Non Tender Extremities: Capillary Refill Less than 3 Seconds, Edema - 1+ BL LE Skin: No rashes, No breakdown Musculoskeletal: No Tenderness to Palpation of Joints or Extremities Neurological: Cranial nerves II-XII grossly intact Psych/Mental Status: Normal Affect, Appropriate, Alert and oriented to time, place, person, mood and affect Plan as discussed above. Rest of management as per Kris Pollard PA-C's note, which I have reviewed and agree with. - Physical Exam Vital Signs Temp Pulse Resp BP Pulse Ox 98.3 F 108 H 18 139/91 H 98 09/11/18 10:05 09/11/18 11:16 09/11/18 11:00 09/11/18 10:05 09/11/18 10:05 Oxygen Flow Rate (L/min) 2 Oxygen Delivery Method Nasal Cannula Weight: 188 lb 14.978 oz Body Mass Index (BMI) 29.6 Intake and Output for Last 24 Hours 09/09/18 09/10/18 09/11/18 23:59 23:59 23:59 Intake Total 1538.1959. 360 / 360 Balance 1538. 360 / 360 Microbiology Past 72 Hours 09/08/18 02:54 Blood Culture - Preliminary Blood Culture (Wb) - Anticubital Left No growth in 48 hours. 09/08/18 03:23 Blood Culture - Preliminary Blood Culture (Wb) - Right Forearm No growth in 48 hours. 09/08/18 03:00 Urine Culture - Final Urine, Clean Catch Mixed Gram Positive Organisms 09/08/18 08:45 Influenza Types A,B Direct FA (ROMI) - Final Mucosa - Nose Laboratory Tests Past 24 Hrs 09/11/18 10:20 PT 29.6 H INR 2.8 Code Visit Inpatient E&M: 40208 Disch Hosp
--- NOTE | 2018-09-11 14:02 | CASEMGMT ---
YAO spoke with Stacy at [facility] and let her know patient wants to go home so she can get things in order before she comes to them. SW spoke with patient and she confirmed this plan. SW also let her now once she has Medicaid all of her co-pays will be covered including when she sees specialists. Regla VIZCARRA MSW
--- NOTE | 2018-09-12 14:08 | CASEMGMT ---
MAGO DANIEL Discharge F/U Phone Call LACE: 15 Strata: 4 Discharge date: 09/11/18 Call date: 09/12/18 Call time: [id number] Duration: 2 minutes Admission dx: Afib RVR, COPD Pt states has been 'pretty good' since discharge and states no questions regarding discharge instructions/medications at this time. Pt states f/u appt's are scheduled and plans to keep them at this time. Pt states no suggestions for [facility] at this time. Pt states no further questions/concerns/needs at this time. SStaten MAGO DANIEL
== END 2018-09-11 14:02 | disposition home or self-care (01) | DRG 191 ==
LOC: ED 03:08 → PCU 07:06
PROVIDERS: Admitting Provider Hospitalist; Emergency Provider Emergency Medicine; Family Provider Family Medicine; PCP Family Medicine; Visit Provider Student in an Organized Health Care Education/Training Program
DX: J44.1 Chronic obstructive pulmonary disease with (acute) exacerbation (principal); I50.32 Chronic diastolic (congestive) heart failure; J96.11 Chronic respiratory failure with hypoxia; Z99.81 Dependence on supplemental oxygen; I48.91 Unspecified atrial fibrillation; I11.0 Hypertensive heart disease with heart failure; F41.9 Anxiety disorder, unspecified; F32.9 Major depressive disorder, single episode, unspecified; R53.81 Other malaise; E66.9 Obesity, unspecified; E87.6 Hypokalemia; E78.5 Hyperlipidemia, unspecified; Z86.718 Personal history of other venous thrombosis and embolism; Z79.01 Long term (current) use of anticoagulants; Z79.899 Other long term (current) drug therapy; Z87.891 Personal history of nicotine dependence; Z68.29 Body mass index [BMI] 29.0-29.9, adult; Z86.711 Personal history of pulmonary embolism
CPT/HCPCS: 36415; 71045; 80048; 80053; 81001; 83605; 83735; 83880; 84443; 84484; 85025; 85610; 85730; 87040; 87086; 87088; 87804; 93005; 93306; 94640; 94667; 94668; 97110; 97162; 97166; 97530; 97802; 99284; Q9957; A4216

== ENCOUNTER → 2018-11-05 04:00 | Outpatient (REF) | payer MEDICARE, SELFPAY ==
[2018-11-05 09:45] LABS: Prothrombin Time Fingerstick 28.5 SEC (11.9-14.4)
== END ==
LOC: OLS.AVEB 04:00
PROVIDERS: Visit Provider Family Medicine
DX: Z79.01 Long term (current) use of anticoagulants (principal)
CPT/HCPCS: 36416; 85610

== ENCOUNTER → 2018-11-26 07:24 | Outpatient (REF) | payer MEDICARE, SELFPAY ==
[2018-11-26 08:44] LABS: Prothrombin Time (Protime)PT. 31.3 SECONDS (11.7-14.9)
== END ==
LOC: OLS.AVEB 07:24
PROVIDERS: Visit Provider Family Medicine
DX: D64.9 Anemia, unspecified (principal); J44.9 Chronic obstructive pulmonary disease, unspecified; E78.5 Hyperlipidemia, unspecified; Z79.01 Long term (current) use of anticoagulants
CPT/HCPCS: 36415; 85610

== ENCOUNTER 2019-01-17 16:02 | Emergency (ER) | payer MEDICARE, MEDICAID, SELFPAY ==
[2019-01-17 16:04] VITALS: BP 119/80; PULSE 84; RESP 20; TEMP 37.2; O2SAT 96; BMI 31.8
--- NOTE | 2019-01-17 16:19 | EKG12_ITS ---
Test Reason : CP Blood Pressure : / mmHG Vent. Rate : 095 BPM Atrial Rate : 086 BPM P-R Int : 000 ms QRS Dur : 070 ms QT Int : 376 ms P-R-T Axes : 000 069 049 degrees QTc Int : 472 ms Atrial fibrillation Low voltage QRS Abnormal ECG Confirmed by MADISON BHAT, URSULA ([id number]), mapping editor PABLITO TRUONG ([id number]) on 01/21/2019 1:39:56 PM Referred By: JACOB Confirmed By:URSULA WALLACE MD
[2019-01-17] MEDS: Mag Hydrox/Al Hydrox/Simeth 30 ML UDC PO (16:32)
[2019-01-17] MEDS: Ondansetron 4 MG/2 ML Vial IV (16:32)
[2019-01-17 16:34] LABS: Basophil# 0.03 X10^3/uL; Basophil% 0.4 % (0-1); Eosinophil# 0.24 X10^3/uL; Eosinophils% 3.3 % (0-5); Hematocrit 31.9 % (37-47); Hemoglobin 9.8 g/dl (12.0-15.0); Lymphocyte % 20.6 % (19-41); Mean Corp Hgb Conc 30.7 g/gl (32-36); Mean Corpuscular Hgb 26.3 pg (27.0-32.0); Mean Corpuscular Volume 85.8 fL (81-99); Mean Platelet Vol. 11.7 fl (6.2-12.0); Monocyte% 6.9 % (0-10); Neutrophil # 5.01 X10^3/uL (2.7-7.7); Neutrophil % 68.8 % (47-70); Platelet Count 273 K/mm3 (150-450); RBC Distribution Width CV 14.4 % (11.6-14.6); RBC Distribution Width SD 45.2 fl (35.1-43.9); Red Blood Count 3.72 M/mm3 (4.2-5.4); White Blood Count 7.3 K/mm3 (4.4-11.0)
[2019-01-17 16:35] LABS: POSITIVE COUNT NO; POSITIVE DIFFERENTIAL NO; POSITIVE MORPHOLOGY NO
--- NOTE | 2019-01-17 16:36 | ED.DCSUM_ITS ---
- ER Visit Summary Date of Service: 01/17/19 Chief Complaint: Abdominal pain History of Present Illness: The patient is a 73 F who presents with abdominal pain and chest pain that has been waxing and waning over the past month. Patient states her pain is over the epigastric area and radiates up into her lo wer chest. Patient describes it as a burning. Patient states she is being treated for gastric ulcers however she states no testing has ever been done for gastric ulcers. Patient states she has an appoint with Dr. Lozano tomorrow for evaluation of her abdominal pain. Patient admits to some nausea but denies any vomiting. Patient states she was having some diarrhea but states this has resolved. Patient denies any dysuria or hematuria. Patient denies any melena or hematochezia. Patient states she has a history of COPD and has some shortness of breath with this. Physical Examination: Vital signs are stable. Patient is afebrile. Patient is in no acute distress. Oromucosa is pink and moist. Neck is supple. Trachea is midline. There is no JVD noted. Heart was irregularly irregular. Lungs showed few scattered wheezes. There is good respiratory effort noted. Abdomen is soft. Bowel sounds are normal. There is some epigastric tenderness. There is no rebound or guarding noted. Cranial nerves II through XII are intact. There are no focal motor or sensory deficits noted. Test Results: EKG showed atrial fibrillation with a rate of 96. There are no acute ST or T wave changes noted. CBC showed a mild anemia with a hemoglobin of 9.8 and hematocrit 31.9. Potassium was slightly low at 3.3. INR was therapeutic at 2.7. Urinalysis does not show any evidence of urinary tract infection. Troponin was normal. Emergency Department Course and Treatment: Patient was given a DuoNeb aerosol because she felt like she was having some wheezing. Patient felt better after this. Patient was given Zofran and a GI cocktail. Patient was feeling hungry after this. Patient and family were advised of her lab results. I do not feel patient needs to be admitted at this time. Patient will be discharged back to the extended care facility. Patient was instructed to follow-up with Dr. Lozano tomorrow morning as scheduled. Patient and family understood and were agreeable with the plan. All questions were answered. Disposition: Discharge home Impression: Abdominal pain This note was generated with Dragon dictation software. It may contain incorrect words, spelling, and punctuation that were not noted in review of the chart prior to signing ED Disposition - Plan for ED Patient: Disposition: [facility] Facility Diagnosis: Abdominal pain Instructions: ABDOMINAL PAIN, Unknown Cause, (Female) Referrals: Tor Lucia MD [Primary Care Provider] - 5-7 Days Dallas Lozano MD [STAFF PHYSICIAN] - Keep Daisy appointment
[2019-01-17 16:38] LABS: International Normalized Ratio 2.7; Prothrombin Time (Protime)PT. 28.4 SECONDS (11.7-14.9)
[2019-01-17 16:39] LABS: Partial Thromboplast Time 51.3 Seconds (24.1-36.2)
[2019-01-17 16:48] LABS: ALB/GLOB Ratio 0.8 RATIO (0.9-2.4); AST(SGOT) 14 U/L (15-37); Alanine Aminotransfer ALT/SGPT 13 U/L (13-56); Albumin, Serum 3.2 g/dL (3.2-5.0); Alkaline Phosphatase 107 U/L (45-117); Anion Gap 3 (5-15); BUN 12 mg/dL (7-18); BUN/Creat Ratio 17.9 RATIO (10-20); Calcium,Total 8.8 mg/dL (8.5-10.1); Chloride 100 mmol/L (98-107); Creatinine, Serum 0.67 mg/dL (0.55-1.02); EST Glomerular Filtration Rate 91 mL/min (>60); Est Glom Filt Rate - Afr Amer 111 mL/min (>60); Globulin 3.9 g/dL (2.2-4.2); Glucose 96 mg/dL (74-106); Lipase 128 U/L (73-393); Potassium 3.3 mmol/L (3.5-5.1); Protein, Total 7.1 g/dL (6.4-8.2); Sodium Level 139 mmol/L (136-145)
[2019-01-17 17:10] VITALS: PULSE 96; RESP 18
[2019-01-17] MEDS: Ipratropium/Albuterol Sulfate 3 ML AMPUL.NEB INHALATION (17:10)
--- NOTE | 2019-01-17 17:46 | ED.RN ---
pt requesting daughter wilver be called. number on file to a business. pt gave different number [phone]. called daughter to let her know that she was here in the er. daughter was on way to visit pt and now going to come to ed.
[2019-01-17 18:28] LABS: Bacteria 0 SEEN /hpf (None Seen); Red Blood Cells-Urine 0 SEEN /hpf (0-5); Squamous Epithelial Cells - UA 0 SEEN /hpf (5-10); White Blood Cells 0 SEEN /hpf (0-5)
[2019-01-17 18:36] VITALS: BP 118/74; PULSE 90; RESP 16; O2SAT 98
[2019-01-17 18:55] LABS: Color, Urine Yellow (Yellow); Glucose, Dipstick Normal (Normal); Ketone-Dipstick Negative (Negative); Leukocyte Esterase-Dipstick Negative /ul (Negative); Nitrite-Dipstick Negative (Negative); Occult Blood-Urine 10 /ul (Negative); Protein-Dipstick 15 mg/dl (Negative); Urine Bilirubin Dipstick Negative (Negative); Urine Clarity Clear (Clear); Urine Urobilinogen 1 mg/dl (Normal)
[2019-01-17 19:03] LABS: Calcium Oxalate Crystals Ur RARE /hpf (<or=2+); Mucous, Urine 1+ /hpf (<or=2+)
[2019-01-17 19:51] VITALS: BP 104/68; PULSE 91; RESP 17; O2SAT 98
== END 2019-01-17 20:06 | disposition skilled nursing facility (03) ==
PROVIDERS: Emergency Provider Emergency Medicine; Family Provider Family Medicine; PCP Family Medicine
DX: R10.13 Epigastric pain (principal); J44.9 Chronic obstructive pulmonary disease, unspecified; I48.91 Unspecified atrial fibrillation; Z79.01 Long term (current) use of anticoagulants; Z79.899 Other long term (current) drug therapy
CPT/HCPCS: 80053; 81001; 83690; 84484; 85025; 85610; 85730; 93005; 94640; 96374; 99285; P9612; A4216; J2405

== ENCOUNTER 2019-02-17 14:05 | Emergency (ER) | payer MEDICARE, MEDICAID, SELFPAY ==
[2019-02-17 14:06] VITALS: BP 114/74; PULSE 70; RESP 17; TEMP 37.1; O2SAT 93; BMI 29.4
--- NOTE | 2019-02-17 14:26 | RAD_ITS ---
STUDY: X-RAY CHEST REASON FOR EXAM: Female, 73 years old. Shortness of breath with dyspnea TECHNIQUE: AP COMPARISON: 09/08/2018 FINDINGS: EKG leads project over the chest. The lungs are clear and expanded. There is no demonstrated pleural abnormality. Normal size heart. Normal mediastinum and betty. Normal visualized pulmonary arteries. There is atherosclerotic tortuosity of the aortic arch and descending thoracic aorta. Normal visualized thoracic spine. Normal visualized ribs, clavicles, and shoulders. There is no demonstrated abnormality of the visualized soft tissue structures of the upper abdomen. RAD/Chest 1 View (Portable) IMPRESSION: Nonacute portable x-ray examination of the chest. Electronically Signed: Jalen Stephens MD at 14:48 EDT , Service support ,
--- NOTE | 2019-02-17 14:26 | EKG12_ITS ---
Test Reason : Blood Pressure : / mmHG Vent. Rate : 071 BPM Atrial Rate : 065 BPM P-R Int : 000 ms QRS Dur : 076 ms QT Int : 446 ms P-R-T Axes : 000 063 048 degrees QTc Int : 484 ms Atrial fibrillation Low voltage QRS Abnormal ECG Confirmed by MADISON BHAT, URSULA ([id number]), rewrite editor PABLITO TRUONG ([id number]) on 02/20/2019 10:16:06 AM Referred By: JOSÉ MIGUEL Confirmed By:URSULA WALLACE MD
[2019-02-17 14:38] LABS: Absolute Lymphocyte Count 1.37 X10^3/uL (0.83-4.51); Basophil# 0.07 X10^3/uL; Basophil% 0.8 % (0-1); Eosinophil# 0.22 X10^3/uL; Eosinophils% 2.7 % (0-5); Hemoglobin 10.7 g/dL (12.0-15.0); Lymphocyte # 1.37 X10^3/ul (4.0); Lymphocyte % 16.5 % (19-41); Mean Corp Hgb Conc 30.6 g/dL (32-36); Mean Corpuscular Hgb 26.5 pg (27.0-32.0); Mean Corpuscular Volume 86.6 fL (81-99); Mean Platelet Vol. 11.5 fl (6.2-12.0); Monocyte# 0.56 X10^3/uL; Monocyte% 6.8 % (0-10); NRBC Flagged by Analyzer 0 % (0-5); Neutrophil # 6.04 X10^3/uL (2.7-7.7); Platelet Count 219 K/mm3 (150-450); RBC Distribution Width CV 15.2 % (11.6-14.6); RBC Distribution Width SD 48.3 fl (35.1-43.9); Red Blood Count 4.04 M/mm3 (4.2-5.4); White Blood Count 8.3 K/mm3 (4.4-11.0)
--- NOTE | 2019-02-17 14:40 | ED.VIS.GEN ---
History of Present Illness Chief Complaint: Shortness of Breath Informant: Patient Onset: Month(s) Current Severity: Mild Narrative: Patient has a history of COPD chronically on custodial O2 of about 2 to 3 L she indicates the oxygen tubing she uses is about to room as long connected to long oxygen concentrator, atrial fibrillation,. She indicates she is had a chronic cough that is unchanged chronic leg edema that is improved today she complained of custodial personnel that she seemed more short of breath now she feels back to baseline although now she is on a short her oxygen tube her pulse ox is 94% she is speaking full sense she is awake and alert she is eating and drinking well she is able to walk around the nursing center with her walker connected to this long oxygen tubing her bowel and bladder habits been normal. Past Medical History - Allergies and Home Meds Allergies/Adverse Reactions: Allergies amlodipine besylate [From [facility]] Adverse Reaction (Verified 01/17/19 16:03) ANKLE AND LEG EDEMA RESOLVED OFF MED-PER PCP PAPERWORK codeine Adverse Reaction (Verified 01/17/19 16:03) MENTAL STATUS CHANGE lisinopril Adverse Reaction (Verified 01/17/19 16:03) COUGH Primary Care Physician: Tor Lucia MD [Primary Care Provider] - Past Medical History: - - COPD home O2 Surgical History: - - Hysterectomy, cholecystectomy, tailbone surgery. Smoking Status: Former smoker - Family History Maternal Family History: Family History (Last Reviewed 09/08/18 @ 07:41 by Paulo Mota MD) Sister Heart disease Family History: Reports: - - Patient notes a maternal history of dementia and stroke. Paternal Family History: Family History (Last Reviewed 09/08/18 @ 07:41 by Paulo Mota MD) Sister Heart disease Family History: Reports: - - Patient denies any marketed paternal family history including heart disease, diabetes, cancer. Sibling Family History: Family History (Last Reviewed 09/08/18 @ 07:41 by Paulo Mota MD) Sister Heart disease Family History: Reports: - - Patient notes a sibling specifically her sister with Parkinson's disease and heart disease as well as a brother with Parkinson's disease, asthma and history of blood clots. Review of Systems General: Denies: Chills, Fever, Sweats Eyes: Denies: Visual changes - bilaterally, Diplopia ENT: Denies: Rhinorrhea, Sore throat Cardiovascular: Denies: Chest pain, Palpitations Respiratory: Reports: Dyspnea, Cough. Denies: Dyspnea on exertion Gastrointestinal: Denies: Abdominal pain, Nausea, Vomiting, Diarrhea, Melena, Hematochezia Genitourinary: Denies: Dysuria, Hematuria, Frequency Musculoskeletal: Denies: Back pain, Extremity Pain Skin: Denies: Rash, Wounds Neurological: Denies: Headache, Weakness, Numbness Physical Exam Vital Signs/Narrative: Vital Signs Temp Pulse Resp BP Pulse Ox 02/17/19 14:06 98.7 F 70 17 114/74 93 General: Well nourished, Well developed, No Acute Distress Head: Normocephalic, Atraumatic Eyes: Perrl, EOMI ENT: Moist mucous membranes, No rhinorrhea Neck: Supple, Nontender Cardiovascular: Regular rate, Regular rhythm, No murmurs Respiratory: No distress, CTA bilaterally, Chest nontender, Decreased Air Movement Abdomen: Soft, Nontender, Nondistended, Normal bowel sounds Back: Nontender, Normal Inspection Extremities: Nontender, No edema Skin: Normal color, No rash Neurological: Alert, Oriented x3, Cranial nerves II-XII grossly intact, Normal Strength, Normal Sensation Psychological: Normal affect, Normal Mood Diagnostic/Tx/Re-eval - Medical Decision Making The patient's resting company the bed she is back to her baseline regarding her cardiopulmonary status she has no complaints her vital signs are normal had a long conversation with her related to her long oxygen tubing that she uses she indicates that is a chronic state that is not different or changed it is unclear why she is now back to her baseline without specific therapy she has lower extremity edema that is chronic she is had no fever the chronic cough This time given her age and all the above complaint screening labs are obtained chest x-ray aerosols Patient's EKG shows atrial fibrillation rate 70 rate controlled no acute interval abnormalities, chest x-ray per radiology shows nothing acute, and all of her screening labs troponin and BNP are generally unremarkable see those reports, she question whether her CO2 was high although there was no indication of that as she was awake alert answering questions appropriately with no current complaints of any kind he ordered a blood gas to check that for her and that test she refused She was treated with an aerosol we observe her in the department she remained very stable here she has no complaints she is comfortable discharge back to custodial I have again questioned her as to the length of the tubing that she uses for oxygen therapy and suggested that if she is at a long tube length she might consider increasing the oxygen if she feels short of breath using a long tube otherwise discussed all the above with her providers Home stable Final impression Acute exacerbation of COPD improved history of A. fib ED Disposition - Plan for ED Patient: Diagnosis: COPD (chronic obstructive pulmonary disease), COPD exacerbation Instructions: Copd Flare Referrals: Tor Lucia MD [Primary Care Provider] -
[2019-02-17 14:45] VITALS: PULSE 78; RESP 12
[2019-02-17] MEDS: Ipratropium/Albuterol Sulfate 3 ML AMPUL.NEB INHALATION (14:48)
[2019-02-17 14:58] LABS: Anion Gap 2 (5-15); BUN 13 mg/dL (7-18); BUN/Creat Ratio 19.2 RATIO (10-20); Calcium,Total 8.7 mg/dL (8.5-10.1); Chloride 102 mmol/L (98-107); Creatinine, Serum 0.68 mg/dL (0.55-1.02); EST Glomerular Filtration Rate 90 mL/min (>60); Est Glom Filt Rate - Afr Amer 109 mL/min (>60); Estimated Creatinine Clearance 47.27 ml/min; Glucose 95 mg/dL (74-106); Potassium 3.2 mmol/L (3.5-5.1); Sodium Level 141 mmol/L (136-145)
[2019-02-17 15:27] VITALS: BP 130/82; RESP 18; O2SAT 95
[2019-02-17 16:11] VITALS: RESP 18
== END 2019-02-17 16:12 | disposition home or self-care (01) ==
LOC: ED 15:03
PROVIDERS: Emergency Provider Emergency Medicine; Family Provider Family Medicine; PCP Family Medicine
DX: J44.1 Chronic obstructive pulmonary disease with (acute) exacerbation (principal); I48.91 Unspecified atrial fibrillation; R60.0 Localized edema; Z99.81 Dependence on supplemental oxygen; Z79.01 Long term (current) use of anticoagulants; Z79.899 Other long term (current) drug therapy; Z87.891 Personal history of nicotine dependence; Z90.49 Acquired absence of other specified parts of digestive tract; Z90.710 Acquired absence of both cervix and uterus
CPT/HCPCS: 71045; 80048; 83880; 84484; 85025; 93005; 94640; 99285; A4216

== ENCOUNTER 2019-02-25 07:19 | Day surgery (SDC) | payer MEDICARE, MEDICAID, SELFPAY ==
[2019-02-18 13:34] VITALS: BP 104/62; PULSE 83; RESP 20; TEMP 36.3; O2SAT 94; BMI 29.1
--- NOTE | 2019-02-22 18:47 | PCM.HP.BLA ---
History and Physical Date of Admission: 02/25/19 HISTORY AND PHYSICAL ? Rhoda Quinn 1945 ? REFERRING PHYSICIAN: ??Tor Lucia MD ? CHIEF COMPLAINT: ??New Patient (EGD consult) ? HPI: The patient is a 73 year old female referred for endoscopy. ?Rhoda notes no current colon complaints. ? The patient??notes the following upper complaints:???Rhoda?notes abdominal pain.?The pain occurs in the following locations:??epigastric region.??This pain has been progressive for at least the past few months and worsening. ?She states she has been told in the past she likely has gastric ulcers. ?She was given medications with his ulcers but never had upper endoscopy. ?She notes some nausea but denies vomiting. ?She denies melena or hematochezia. ?She notes some loose stools in the past but states this is resolved. ?Rhoda notes?heartburn. ??Rhoda notes?dysphagia. ?Rhoda understand she has?a history of ulcers/ peptic ulcer disease. ? ? Rhoda?has??undergone prior endoscopy. ?He recalls her previous colonoscopy was in 2002. ? Spirometry performed in January 2017 demonstrates no FEV1 of 1.58 or 50% predicted and FEV1 of 0.7 431% predicted. ? She sees the [facility]. ?She was last seen in October 2018. ?She has a previous history of DVT/PE. ?She is on daily Coumadin. ?Echocardiogram assured demonstrated a 60% ejection fraction. ? The patient is being seen by me today at the request of Dr.?Tor Lucia MD?for my opinion and advice regarding epigastric pain.? ? ? PAST?MEDICAL?HISTORY PAST MEDICAL HISTORY Diagnosis Date ? A-fib (HCC) ? ? Anemia ? ? Anxiety ? ? COPD (chronic obstructive pulmonary disease) (HCC) ? ? GERD (gastroesophageal reflux disease) ? ? HBP (high blood pressure) ? ? Hyperlipidemia ? ? Iatrogenic pulmonary embolism and infarction (HCC) 08/22 ? Insomnia ? ? Obesity ? ? Osteoporosis ? ? Pedal edema ? ? PMH - PAST MEDICAL HISTORY OF ? ? H. pylori gastritis ? Pulmonary hypertension (HCC) ? ? Venous insufficiency ? ? Vitamin D deficiency ? ? ? PAST?SURGICAL?HISTORY PAST SURGICAL HISTORY Procedure Laterality Date ? ANTER COLPORRHAPHY,BLAD/VAGINA ? 01/2003 ? Cystocele repair ? CARDIOVERSION ? ? ? COLONOSCOP W/ OR W/O BRSH SPEC ? 04/30/2003 ? Normal ? EGD W/O BRSH SPECIMEN W/BX ? 04/30/2003 ? Gastritis ? LAPAROSCOPIC CHOLEYCYSTECTOMY ? 2003 ? TOTAL ABDOM HYSTERECTOMY ? ? ? BEN, one ovary intact, menorrhagia ? ? CURRENT?MEDICATIONS ? Current Outpatient Medications: diltiazem CD (CARDIZEM CD) 120 mg 24 hr capsule Take 1 tablet by mouth once daily. benzonatate (TESSALON PERLE) 100 mg capsule 4 TIMES DAILY NEEDED PRN For COUGH guaiFENesin 1,200 mg Ta12 TWICE A DAY predniSONE (DELTASONE) 10 mg tablet DAILY zolpidem (AMBIEN) 10 mg tab Take 1 tablet by mouth at bedtime as needed for up to 90 days. FOR INSOMNIA ipratropium-albuterol (DUONEB) 0.5 mg-3 mg(2.5 mg base)/3 mL nebu Inhale 3 mL as instructed four times daily. USE 4 TIMES DAILY citalopram (CELEXA) 40 mg tablet Take 1 tablet by mouth once daily. COMPOUNDED PRESCRIPTION Nebulizer kit with mouthpiece. ?2 per month. [employer]. budesonide (PULMICORT) 0.25 mg/2 mL nebulizer solution Use 2 mL via nebulizer twice daily. COMPOUNDED PRESCRIPTION O2 titration on continuous and pulsed flow O2, target spO2 > 88%. warfarin (COUMADIN) 5 mg tablet 1.25 mg on Mon and Mon, and 2.5 mg all other days or as directed atenolol (TENORMIN) 50 mg tablet Take 1 tablet by mouth twice daily. furosemide (LASIX) 40 mg tablet Take 1 tablet by mouth twice daily. COMPOUNDED PRESCRIPTION Zipper compression stockings, thigh high. 20-30 mmHG ergocalciferol, vitamin D2, (VITAMIN D) 50,000 unit capsule Take 1 capsule by mouth once each week. COMPOUNDED PRESCRIPTION Nebulizer tubing and suppliesDX: COPD OXYGEN, HOME THERAPY, 2 L/min by Nasal Cannula route continuous. Nebulizer NEBULIZER FOR HOME USE. ?DX: J44.9 albuterol HFA (PROAIR HFA) 90 mcg/actuation inhaler Inhale 2 Puffs as instructed every 6 hours as needed. 2 PUFFS EVERY 3-4 HOURS NEEDED FOR ASTHMA SYMPTOMS ascorbic acid (VITAMIN C) 500 mg ORAL Tab Take one(1) tablet daily. VITAMIN B-12 500 MCG TAB Take one(1) tablet daily. ? No current facility-administered medications for this visit.? ? ALLERGIES:?Codeine; Norvasc [Amlodipine Besylate]; Lisinopril ? PERSONAL HISTORY:? SOCIAL?HISTORY Social History ??Socioeconomic History ?Marital status: ?Spouse name: Not on file ?Number of children: 6 ?Years of education: Not on file ?Highest education level: Not on file ??Social Needs ?Financial resource strain: Not on file ?Food insecurity - worry: Not on file ?Food insecurity - inability: Not on file ?Transportation needs - medical: Not on file ?Transportation needs - non-medical: Not on file ??Occupational History ?Occupation: Retired. ?Employer: [employer] ??Tobacco Use ?Smoking status: Former Smoker ?Packs/day: 0.50 ?Years: 25.00 ?Pack years: 12.5 ?Start date: 12/17/1959 ?Quit date: 07/17/2000 ?Years since quittin.5 ?Smokeless tobacco: Never Used ?Tobacco comment: No smoking in childhood home. Spouse smoked in marital home. ??Substance and Sexual Activity ?Alcohol use: Yes ?Comment: A glass of wine no more frequently than quarterly. TO 09/28/15. ?Drug use: No ?Sexual activity: Not on file ??Other Topics ?Concerns: ?Not on file ??Social History Narrative ? twice. 6 children, 5 in [place], 12 GC. Retired from [employer]. ? FAMILY HISTORY:? FAMILY?HISTORY FAMILY HISTORY Problem Relation Age of Onset ? Stroke Mother ? ? other (dementia) Mother ? ? other (Parkinson's Disease) Sister ? ? other (Parkinson's Disease) Brother ? ? Asthma Brother ? ? other (blood clot) Brother ?maternal ? Hypertension Son ? ? Hypertension Daughter ? ? REVIEW OF SYMPTOMS: ??The review of systems data was entered by the nurse and reviewed by me ? Nursing Notes: Patti Velez RN ?01/18/2019 ?2:19 PM ?Signed REVIEW OF SYSTEMS: ?General:???The patient denies fatigue, denies weight loss, denies weight gain, denies feeling hot, and denies feelings of cold. ?Eyes: ?The patient denies glaucoma, denies eye injury/surgery, wears glasses or contacts. ?Ear/Nose/Throat: ?The patient denies allergies, denies hayfever, denies ear infections, and denies bloody noses. ?Cardiovascular: ?The patient denies chest pain, NOTES heart disease, NOTES high blood pressure,denies cardiac stent, denies prior heart attack, NOTES irregular heart beat, NOTES high cholesterol, ?denies poor circulation, denies heart failure, other cardiac issues, denies claudication, denies cold feet, denies peripheral arterial stent. ?Respiratory: ?The patient denies tuberculosis, NOTES pneumonia, denies frequent cough, denies pulmonary embolism, NOTES shortness of breath, and denies coughing up blood. ?Gastrointestinal: ?The patient denies difficulty swallowing, denies acid reflux, NOTES ulcers, denies vomiting, denies jaundice/hepatitis, denies gallbladder problems, denies black or tarry stools, denies hemorrhoids, NOTES bleeding from rectum, denies diverticulitis, denies constipation, denies diarrhea, denies loss of stool control, and denies hernias. ?Kidney/Bladder: ?The patient denies kidney stones, denies urine infections, and denies bloody urine. ?Skin: ?The patient denies a history of skin cancer, denies bleeding/changing moles, and denies a history of skin rash. ?Neurologic: ?The patient denies a history of epilepsy/convulsions, denies headaches, denies head/spinal injuries, and denies stroke/TIA. ?Psychiatric: ?The patient denies psychiatric medications, NOTES depression, and denies voices, denies substance abuse. ?Endocrine: ?The patient denies thyroid disorders, denies diabetes, and denies hormonal problems. ?Hematologic: ?The patient denies a history of bruising, denies bleeding, and denies anemia, denies blood clots. ?Infections: ?The patient NOTES a history of measles and mumps, denies rheumatic fever, and denies sexually transmitted diseases. ?Musculoskeletal: ?The patient denies back pain/injury, denies back problems, denies sciatica, denies knee/foot trouble, NOTES arthritis, or denies gout. ? ? When was patient's last Mammogram screening? N/A ? ?Last Colonoscopy: ?04/30/2003 ? Patti Velez RN ? PHYSICAL EXAMINATION: ? General: ?The patient is 73 year old female, well nourished, well hydrated in no acute distress. ?The patient is oriented to time, place, and person. ? VITALS:?Blood pressure 90/52, pulse 68, temperature 36.3 ?C (97.3 ?F), temperature source Temporal, resp. rate 20, height 170.2 cm (5' 7), weight 85.6 kg (188 lb 12.8 oz), SpO2 95 %.?Body mass index is 29.57 kg/m?.? ? HEENT: ?Normal cephalic, ataumatic, pupils are equally round, sclera are anicteric, mucous membranes are moist, oropharynx is clear. ?Neck has no masses, asymmetry or lymphadenopathy. ?Thyroid is unremarkable. ? Respiratory: ?Clear to auscultation and percussion. ?Normal respiratory excursion and pattern. ? Cardiac: ?Examination is regular rate and rhythm. ? Abdominal exam: ?Soft, mildly tender in the epigastrium, otherwise?nontender, ?with no palpable masses. ?No hepatosplenomegaly. ?No palpable hernias. ? Rectal exam:?exam deferred ? Extremities: ?no clubbing, cyanosis or edema. ?No adenopathy. ? Other: ? LABORATORY VALUES: As Noted ? RADIOLOGIC STUDIES: ?As Noted ? Assessment ? IMPRESSION:?Epigastric pain, severe COPD, atrial fibrillation, anticoagulation ? PLAN: ?I plan to perform upper?endoscopy. ??We discussed the risks and benefits of the planned endoscopy. ?I have informed the patient that complications can occur including failure to complete the endoscopy and perforation. ?The patient had the opportunity to ask questions concerning the planned endoscopy. ?My staff has also explained the procedure to the patient in understandable terms and has given the patient printed material concerning the procedure. ?The patient freely consents to surgery. ? Given her COPD and overall performance status, I would not plan for bowel prep and lower endoscopy and she had specific symptoms. ?I discussed with the patient that she may end up getting very minimal sedation given her pulmonary status. ? The patient has medical comorbidities for which I plan to perform the procedure under monitored anesthetic care. ? Diagnoses:?(R10.13) Epigastric pain ?(primary encounter diagnosis) (J44.9) Chronic obstructive pulmonary disease, unspecified COPD type (HCC) (I48.91) Atrial fibrillation, unspecified type (HCC) ? A letter was sent to Dr.?Tor Lucia MD?indicating the above finding for this patient. ?? Return to Clinic: The patient is instructed to follow-up with me?after the testing has been completed. ? Dallas Lozano MD
[2019-02-25] VITALS (8 sets, daily range): BP systolic 86–108; BP diastolic 56–67; PULSE 68–80; RESP 16–18; TEMP 36.3–36.6; O2SAT 92–97; BMI 29.1
--- NOTE | 2019-02-25 08:15 | IMM_PTH ---
PATIENT: BERTO SIMPSON LOC: [facility] U#:[id number] AGE/SX: 73/F ROOM: RE02/25/[address]: Dr. Dallas Lozano MD : 1945 BED: DIS: 02/25/2019 SPEC #: [id number] RECD: 02/25/19 13:05 STATUS: EILEEN REQ #: [id number] DEBBIE: 02/25/19 08:[address]: Dallas Lozano DEPT: IMMUNOHISTOCHEMISTRY RECD BY: Frances Dutta ENTERED: 02/25/19 13:05 SP TYPE: IMMUNO OTHR DR: Dr. Tor Lucia MD Tissues: B - Stomach, NOS Procedures: H Pylori (initial) PHYSICIAN & INSTITUTION [place] [id number] SPECIMEN INFORMATION: Tissue Source: B - Antrum biopsy Clinical Info: Abdominal pain, epigastric pain Specimen Number: [id number] CPT code: 13233 METHODOLOGY: Deparaffinized sections of prefer/formalin-fixed tissue or PAP/DQ stained slides are incubated with monoclonal/polyclonal antibodies/oligonucleotide probes. Localization is made via biotin free immunoperoxidase method. Appropriate controls are performed and reacted as expected. Results on target cell population are indicated in the following table: RESULTS: ANTIBODY / CLONE RESULT Block B H Pylori (polyclonal) negative These tests were developed and their performance characteristics determined by [facility]. They may not have been cleared or approved by the U.S. Food and Drug Administration. The FDA has determined that such clearance or approval is not necessary. INTERPRETATION: B. Antrum biopsy: Negative for Helicobacter pylori organisms. AM:aron 02/26/19
--- NOTE | 2019-02-25 08:15 | EGD_PTH ---
PATIENT: BERTO SIMPSON LOC: EN U#:[id number] AGE/SX: 73/F ROOM: RE02/25/[address]: Dr. Dallas Lozano MD : 1945 BED: DIS: 02/25/2019 SPEC #: [id number] RECD: 02/25/19 10:21 STATUS: EILEEN SANDY #: [id number] DEBBIE: 02/25/19 08:[address]: Dallas Lozano DEPT: SURGICAL PATHOLOGY RECD BY: Carlos Pretty ENTERED: 02/25/19 11:57 SP TYPE: EGD BIOPSY [facility] DR: Dr. Tor Lucia MD Tissues: A - Jejunum, NOS B - Gastric mucous membrane C - Gastric mucous membrane Procedures: Surgery Specimen Level IV HEADER OPERATION: EGD ([facility]) PRE-OP DIAGNOSIS: Abdominal pain, epigastric pain TISSUE SUBMITTED: A. Jejunum biopsy, B. Antrum biopsy for path and H. pylori, C. GE junction biopsy MICROSCOPIC DIAGNOSIS A. Jejunum, biopsy: No pathologic diagnosis. B. Antrum, biopsy: Mild to moderate chronic gastritis. See comment. C. Gastroesophageal junction, biopsy: Fragments of benign squamous mucosa. Rare benign fragment of glandular epithelium. No evidence of goblet cell metaplasia, AM:aron 02/26/19 COMMENT B. The results of immunohistochemistry for Helicobacter pylori will be reported separately ([id number]). AB/PAS is negative. Matched control is appropriate. MICROSCOPIC DESCRIPTION Slides are reviewed. GROSS DESCRIPTION A - Received in fixative is one container labeled with the patient's name and designated jejunum biopsy. The specimen consists of one irregular fragment of light kothari soft tissue that measures 0.6 x 0.3 x 0.1 cm. The specimen is totally submitted in one cassette. B - Received in fixative is one container labeled with the patient's name and designated antral biopsy. The specimen consists of two irregular fragments of light kothari soft tissue that in aggregate measure 0.6 x 0.5 x 0.1 cm. The specimen is totally submitted in one cassette. C - Received in fixative is one container labeled with the patient's name and designated GE junction biopsy. The specimen consists of one irregular fragment of light kothari soft tissue that measures 0.3 x 0.2 x 0.1 cm. The specimen is totally submitted in one cassette. / AM:aron 02/25/19 TC:3 CPT: 99827 x3,40594 X1
--- NOTE | 2019-02-25 09:01 | OP.ENDO_ITS ---
02/25/2019 Tor Lucia MD [address] [id number] Re : Upper GI endoscopy procedure for Rhoda Quinn Dear Dr. Lucia This procedure was performed on Monday, February 25, 2019. My impressions and recommendations are as follows: Impressions : - Normal examined jejunum. Biopsied. - Normal examined duodenum. - Gastritis. Biopsied. - A single non-bleeding angioectasia in the stomach. - Small hiatal hernia. - Normal lower third of esophagus. Biopsied. Recommendations : - Resume previous diet. - Return to physician clinic assistant in 1 week. - Continue present medications. My findings are described in the full procedure note, which is enclosed. If I can be of further assistance, please feel free to contact me at Doctor phone number(s): , Work: . Sincerely, Dallas Lozano MD 02/25/2019 9:01:22 AM This report has been signed electronically.
== END 2019-02-25 09:43 | disposition home or self-care (01) ==
LOC: EN 07:20 → AC 07:21
PROVIDERS: Family Provider Family Medicine; PCP Family Medicine; Referring Provider Surgery; Visit Provider Surgery
PROC: 0DJ08ZZ Inspection of Upper Intestinal Tract, Via Natural or Artificial Opening Endoscopic (ICD-10-PCS; CPT 43235; principal; 2019-02-25 08:10)
DX: K31.819 Angiodysplasia of stomach and duodenum without bleeding (principal); K44.9 Diaphragmatic hernia without obstruction or gangrene; K29.50 Unspecified chronic gastritis without bleeding; J44.9 Chronic obstructive pulmonary disease, unspecified; I48.91 Unspecified atrial fibrillation; K21.9 Gastro-esophageal reflux disease without esophagitis; I10 Essential (primary) hypertension; D64.9 Anemia, unspecified; E78.5 Hyperlipidemia, unspecified; G47.00 Insomnia, unspecified; M81.0 Age-related osteoporosis without current pathological fracture; F32.9 Major depressive disorder, single episode, unspecified; F41.9 Anxiety disorder, unspecified; E66.9 Obesity, unspecified; Z68.29 Body mass index [BMI] 29.0-29.9, adult; Z79.01 Long term (current) use of anticoagulants; Z79.52 Long term (current) use of systemic steroids; Z79.899 Other long term (current) drug therapy; Z78.0 Asymptomatic menopausal state; Z88.5 Allergy status to narcotic agent; Z88.8 Allergy status to other drugs, medicaments and biological substances; Z86.711 Personal history of pulmonary embolism; Z86.718 Personal history of other venous thrombosis and embolism; Z87.891 Personal history of nicotine dependence
CPT/HCPCS: 43239; 88305; 88342; J7120; J2405

== ENCOUNTER 2019-05-07 09:08 | Inpatient (IN) | payer MEDICARE, MEDICAID, SELFPAY ==
[2019-02-25 07:38] VITALS: BMI 29.1
[2019-05-07] VITALS (39 sets, daily range): BP systolic 90–141; BP diastolic 55–109; PULSE 67–137; RESP 16–28; TEMP 36.8–37.7; O2SAT 92–99; BMI 32.3; BMI 30.4
--- NOTE | 2019-05-07 09:14 | EKG12_ITS ---
Test Reason : CP Blood Pressure : / mmHG Vent. Rate : 136 BPM Atrial Rate : 104 BPM P-R Int : 000 ms QRS Dur : 068 ms QT Int : 316 ms P-R-T Axes : 000 077 049 degrees QTc Int : 475 ms Atrial fibrillation with rapid ventricular response with premature ventricular or aberrantly conducte d complexes Low voltage QRS Abnormal ECG Reconfirmed by CARLIE BAHT, KATELYN ([id number]), editor managing newspaper BANG URBINA ([id number]) on 05/14/2019 2:02:03 PM Referred By: Yoselin Junior Confirmed By:KATELYN SEXTON MD
--- NOTE | 2019-05-07 09:20 | RAD_ITS ---
STUDY: X-RAY CHEST REASON FOR EXAM: Female, 73 years old. Chest pain and shortness of breath. TECHNIQUE: Single AP portable view of the chest. COMPARISON: Comparison is made with prior study February 17, 2019. FINDINGS: EKG electrodes are seen. There is a mild degree of vascular congestion and CHF with bibasilar atelectasis. There is no demonstrated pleural abnormality. Normal size heart. Normal mediastinum and betty. Normal visualized pulmonary arteries. There is atherosclerotic tortuosity of the aortic arch and descending thoracic aorta. Normal visualized thoracic spine. Normal visualized ribs, clavicles, and shoulders. There is no demonstrated abnormality of the visualized soft tissue structures of the upper abdomen. RAD/Chest 1 View (Portable) IMPRESSION: Mild degree of vascular congestion and CHF with bibasilar atelectasis. Electronically Signed: Nathen Dickinson, at 10:10 EDT , Service support ,
[2019-05-07] MEDS: Ipratropium/Albuterol Sulfate 3 ML AMPUL.NEB INHALATION (09:24)
[2019-05-07] MEDS: Aspirin 81 MG TAB.CHEW 324 MG PO (09:24)
[2019-05-07] MEDS: dilTIAZem 25 MG/5 ML Vial IV BOLUS ×2 (09:26→10:52)
[2019-05-07 09:43] LABS: Absolute Lymphocyte Count 1.19 X10^3/uL (0.83-4.51); Absolute Neutrophil Count 9.4 X10^3/uL (2.0-7.7); Basophil# 0.06 X10^3/uL; Basophil% 0.5 % (0-1); Eosinophil# 0.17 X10^3/uL; Eosinophils% 1.5 % (0-5); Hematocrit 34.6 % (37-47); Hemoglobin 10.2 g/dL (12.0-15.0); Lymphocyte # 1.19 X10^3/ul (4.0); Lymphocyte % 10.3 % (19-41); Mean Corp Hgb Conc 29.5 g/dL (32-36); Mean Corpuscular Hgb 25.4 pg (27.0-32.0); Mean Corpuscular Volume 86.3 fL (81-99); Mean Platelet Vol. 11.9 fl (6.2-12.0); Monocyte# 0.65 X10^3/uL; Monocyte% 5.6 % (0-10); NRBC Flagged by Analyzer 0 % (0-5); Neutrophil # 9.43 X10^3/uL (2.7-7.7); Neutrophil % 81.3 % (47-70); Platelet Count 268 K/mm3 (150-450); RBC Distribution Width CV 15.6 % (11.6-14.6); RBC Distribution Width SD 49.4 fl (35.1-43.9); Red Blood Count 4.01 M/mm3 (4.2-5.4); White Blood Count 11.6 K/mm3 (4.4-11.0)
--- NOTE | 2019-05-07 09:47 | ED.VIS.DYS ---
History of Present Illness Chief Complaint: Shortness of Breath Informant: Patient, EMS Narrative: Patient presenting for evaluation secondary to shortness of breath. Patient has an underlying history of COPD, A. fib, pulmonary hypertension, and diastolic heart failure. Patient states that since yesterday she has been having progressively worsening shortness of breath. Its been associated with a cough that is minimally productive of sputum and chest heaviness. Patient denies any presence of fevers. She denies any significant leg swelling or weight gain associated with this. Patient was given a breathing treatment at the halfway but that did not seem to alleviate her symptoms so she was brought into the emergency department. Review of systems otherwise negative. Past Medical History - Allergies and Home Meds Allergies/Adverse Reactions: Allergies am[facility] besylate [[facility]] Adverse Reaction (Verified 05/07/19 09:14) ANKLE AND LEG EDEMA RESOLVED OFF MED-PER PCP PAPERWORK codeine Adverse Reaction (Verified 05/07/19 09:14) MENTAL STATUS CHANGE lisinopril Adverse Reaction (Verified 05/07/19 09:14) COUGH Primary Care Physician: Tor Lucia MD [Primary Care Provider] - Past Medical History: - - COPD, diastolic heart failure, A. fib Surgical History: - - Hysterectomy, cholecystectomy, tailbone surgery. Smoking Status: Former smoker - Family History Maternal Family History: Family History (Last Reviewed 09/08/18 @ 07:41 by Paulo Mota MD) Sister Heart disease Family History: Reports: - - Patient notes a maternal history of dementia and stroke. Paternal Family History: Family History (Last Reviewed 09/08/18 @ 07:41 by Paulo Mota MD) Sister Heart disease Family History: Reports: - - Patient denies any marketed paternal family history including heart disease, diabetes, cancer. Sibling Family History: Family History (Last Reviewed 09/08/18 @ 07:41 by Paulo Mota MD) Sister Heart disease Family History: Reports: - - Patient notes a sibling specifically her sister with Parkinson's disease and heart disease as well as a brother with Parkinson's disease, asthma and history of blood clots. Review of Systems All systems negative except as indicated General: Denies: Chills, Fever Cardiovascular: Reports: Chest pain Respiratory: Reports: Dyspnea, Cough, Sputum Gastrointestinal: Denies: Nausea, Vomiting, Diarrhea Physical Exam Vital Signs/Narrative: Vital Signs Temp Pulse Resp BP Pulse Ox 05/07/19 09:31 82 17 115/73 92 05/07/19 09:28 91 25 H 05/07/19 09:09 99.8 F H 137 H 28 H 133/109 H 96 Inital Vital Signs reviewed: Yes General: - - Elderly female in moderate respiratory distress Head: Normocephalic, Atraumatic Eyes: Perrl, EOMI ENT: Moist mucous membranes, No rhinorrhea Neck: Supple, Nontender Cardiovascular: No murmurs, Irregular, Tachycardia, - - 2+ radial pulses bilaterally symmetric Respiratory: - - Patient is speaking in 3-4 word sentences. She has extremely poor air movement throughout the lung franklin with wheezes noted. No retractions. Abdomen: Soft, Nontender, Nondistended, Normal bowel sounds Back: Nontender, Normal Inspection Extremities: Nontender, No edema Skin: Normal color, No rash Neurological: Alert, Oriented x3, Cranial nerves II-XII grossly intact, Normal Strength, Normal Sensation Psychological: Normal affect, Normal Mood Diagnostic/Tx/Re-eval Chest X-Ray - ED: 1 View, Read by ED Physician, CHF - EKG Initial EKG Interpretation: - - Atrial fibrillation with a rapid ventricular rate of 136. Isoelectric ST segments, normal T waves, some baseline wander is noted. No gross changes from prior EKG in February of this year. - Medical Decision Making Patient presented secondary to shortness of breath. Patient was found to have an element of obstructive lung disease as well as A. fib with RVR. EKG demonstrates no ischemic signs. Patient was given a dose of Cardizem in the emergency department, and had initial improvement of her heart rate down to the 80s. She was then given breathing treatments to help with her obstructive lung disease which did improve her air movement somewhat, but she again had reemergence of rapid ventricular rate. She was given another subsequent dose of Cardizem. Patient's chest x-ray demonstrates some pulmonary vascular congestion. Patient's BNP is somewhat elevated, troponin was not found to be elevated. Patient likely has an element of COPD exacerbation with congestive heart failure likely precipitated by A. fib with RVR. I do believe that the patient requires admission. I discussed this with the hospitalist. Disposition: Admit to PCU Critical care time (excluding procedures): Performing Direct Patient Care at Bedside ED Disposition - Plan for ED Patient: Disposition: Acute Care Hospital [facility] Diagnosis: Atrial fibrillation with RVR, COPD (chronic obstructive pulmonary disease), Acute exacerbation of CHF (congestive heart failure) Referrals: Tor Lucia MD [Primary Care Provider] -
[2019-05-07] MEDS: Albuterol 2.5 MG/3 ML VIAL.NEB. INHALATION ×2 (09:56)
[2019-05-07 10:00] LABS: Anion Gap 3 (5-15); BUN 16 mg/dL (7-18); BUN/Creat Ratio 23.8 RATIO (10-20); Calcium,Total 9.1 mg/dL (8.5-10.1); Chloride 102 mmol/L (98-107); Creatinine, Serum 0.67 mg/dL (0.55-1.02); EST Glomerular Filtration Rate 91 mL/min (>60); Est Glom Filt Rate - Afr Amer 110 mL/min (>60); Estimated Creatinine Clearance 47.27 ml/min; Glucose 122 mg/dL (74-106); Potassium 3.8 mmol/L (3.5-5.1); Sodium Level 141 mmol/L (136-145)
[2019-05-07 10:21] LABS: BNP,B-Type NATRIURETIC PEPTIDE 468.2 pg/mL (0-100)
[2019-05-07] MEDS: predniSONE 20 MG Tablet 60 MG PO (10:50)
--- NOTE | 2019-05-07 10:53 | NURSING ---
PCU ACUTE DIASTOLIC CHF, AF WITH RVR SEMENTI
[2019-05-07 12:18] LABS: Magnesium 2.5 mg/dL (1.6-2.6)
[2019-05-07] MEDS: Furosemide 40 MG/4 ML Vial IV ×2 (12:26→17:12)
[2019-05-07 12:34] LABS: AST(SGOT) 17 U/L (15-37); Alanine Aminotransfer ALT/SGPT 19 U/L (13-56); Albumin, Serum 3.5 g/dL (3.2-5.0); Alkaline Phosphatase 133 U/L (45-117); Bilirubin, Direct 0.24 mg/dL (0.00-0.30); Globulin 4.3 g/dL (2.2-4.2); Protein, Total 7.8 g/dL (6.4-8.2)
--- NOTE | 2019-05-07 13:01 | HP.PCM_ITS ---
Problem List (1) Acute diastolic (congestive) heart failure Status: Acute (2) Pulmonary hypertension Status: Chronic (3) History of recurrent deep vein thrombosis (DVT) Status: Chronic (4) COPD with acute exacerbation Status: Acute (5) History of pulmonary embolism Status: Chronic (6) History of cardioversion Status: Chronic Comment: January of 2018.....HR not controlled with exertion while in AF on Beta donna and cardizem. Converted to NSR with cardioversion (7) Acute exacerbation of CHF (congestive heart failure) Status: Chronic Qualifiers: Heart failure type: diastolic Qualified Code(s): I50.33 - Acute on chronic diastolic (congestive) heart failure (8) Depression Status: Chronic (9) Obesity (BMI 30.0-34.9) Status: Chronic (10) Former tobacco use Status: Chronic (11) Atrial fibrillation with RVR Status: Acute (12) Diastolic dysfunction Status: Chronic (13) Chronic hypoxemic respiratory failure Status: Chronic (14) Chronic anticoagulation Status: Chronic (15) Dyslipidemia Status: Chronic (16) COPD (chronic obstructive pulmonary disease) Status: Chronic Qualifiers: COPD type: unspecified COPD Qualified Code(s): J44.9 - Chronic obstructive pulmonary disease, unspecified (17) Paroxysmal atrial fibrillation Status: Chronic (18) Chronic anemia Status: Chronic Comment: new since November and the MCV has been decreasing. History of Present Illness Date of Admission: 05/07/19 Chief Complaint: racing heart associated with increasing SOB. The patient is a 73 year old F with a past medical history of venous insufficiency, pulmonary hypertension, paroxysmal atrial fibrillation requiring cardioversion in November 2017, chronic respiratory failure with hypoxemia, recurrent DVTs with pulmonary emboli, chronic anticoagulation with warfarin, hypertension, dyslipidemia and tobacco dependence in remission who was [facility] with increasing shortness of breath and racing heart over the preceding 3 days. Patient admits to palpitations. She denies fevers, chills, sweats. She denies chest pain. She has a history of paroxysmal atrial fibrillation and was admitted to the hospital in November 2017 with A. fib with RVR. Heart rate was con trolled at rest with a beta-donna and Cardizem however it was not controlled with exertion. She underwent DC cardioversion and converted to normal sinus rhythm. She was discharged from the hospital on Coumadin, amiodarone 200 mg daily and atenolol 50 mg twice daily. She is no longer on Amiodarone. She was seen by Maico chi in the cardiology office on October 17, 2018 and at that time she was not on amiodarone. She had a irregular rhythm with good rate control. She was taking Cardizem CD 120 mg daily and atenolol 50 mg twice daily. She also takes Lasix 40 mg p.o. twice daily. Vital signs at presentation to the emergency room are temperature 99.8, pulse rate 137, blood pressure 133/109, respiratory rate 28 and she was 96% saturated on a 4 L nasal cannula. [facility] White blood cell count was mildly increased at 11.6 with 81% neutrophils. Hemoglobin is 10.2 with a decreasing MCV of 86.3. The hemoglobin was normal prior to November 2017. INR is therapeutic at 2.4. Serum bicarb is elevated at 36 and the BUN is 16 with a creatinine of 0.67. BNP is elevated at 468. Troponin is less than 0.015. Chest x-ray is consistent with acute congestive heart failure. She was given an IV bolus of Cardizem 25 mg in the emergency department and her heart rate improved but then she received a DuoNeb aerosol and the heart rate went back up. She was given 60 mg of p.o. prednisone. She is being admitted to a monitored bed on PCU with acute diastolic congestive heart failure secondary to A. fib with RVR and probable acute exacerbation of COPD. I suspect the COPD exacerbation may be driving the HR up. Will place her on a Cardizem infusion and consult Dr. Jaffe to participate in management. Past Medical History Past Medical History (Chronic Problems): Chronic Problems (Last Reviewed 05/07/19 @ 13:34 by Yoselin Junior DO) Acute exacerbation of CHF (congestive heart failure) (Chronic) Pulmonary hypertension (Chronic) History of recurrent deep vein thrombosis (DVT) (Chronic) History of pulmonary embolism (Chronic) History of cardioversion (Chronic) January of 2018.....HR not controlled with exertion while in AF on Beta donna and cardizem. Converted to NSR with cardioversion Paroxysmal atrial fibrillation (Chronic) Chronic anemia (Chronic) new since November and the MCV has been decreasing. HTN (hypertension) (Chronic) Depression (Chronic) Obesity (BMI 30.0-34.9) (Chronic) Former tobacco use (Chronic) Diastolic dysfunction (Chronic) Chronic hypoxemic respiratory failure (Chronic) Chronic anticoagulation (Chronic) Dyslipidemia (Chronic) COPD (chronic obstructive pulmonary disease) (Chronic) Medical History: Medical History (Last Reviewed 05/07/19 @ 13:34 by Yoselin Junior DO) Dyslipidemia (Chronic) E78.5 COPD (chronic obstructive pulmonary disease) (Chronic) J44.9 Atrial fibrillation I48.91 COPD exacerbation J44.1 Heart failure with preserved ejection fraction I50.30 Group 2. EF 65% 18 History of pulmonary embolism Z86.711 Essential hypertension I10 History of DVT (deep vein thrombosis) Z86.718 History of pulmonary embolus (PE) Z86.711 Pulmonary HTN I27.20 Venous insufficiency I87.2 Hypokalemia (Resolved) E87.6 Metabolic alkalosis with respiratory acidosis (Resolved) E87.4 Allergies amlodipine besylate [From [facility]] Adverse Reaction (Verified 05/07/19 09:14) ANKLE AND LEG EDEMA RESOLVED OFF MED-PER PCP PAPERWORK codeine Adverse Reaction (Verified 05/07/19 09:14) MENTAL STATUS CHANGE lisinopril Adverse Reaction (Verified 05/07/19 09:14) COUGH Home Medications: Ambulatory Orders Medication Instructions Recorded Ergocalciferol [Vitamin D] 50,000 unit PO TH 07/19/15 Warfarin Sodium 4 mg PO SUTUTHSA 03/08/18 Furosemide 40 mg PO BID #60 tab 03/11/18 Ascorbic Acid [Vitamin C] 500 mg PO DAILY 05/23/18 Citalopram Hydrobromide 40 mg PO DAILY 05/23/18 [Citalopram HBr] Cyanocobalamin (Vitamin B-12) 500 mcg PO DAILY 05/23/18 [Vitamin B-12] Ipratropium/Albuterol Sulfate 3 ml INHALATION 4X/DAY 08/10/18 [Duoneb] Acetaminophen [Tylenol Tablet] 650 mg PO Q6H PRN PRN tab 08/12/18 Atenolol [Tenormin (beta donna)] 50 mg PO BID 09/08/18 Diltiazem CD [Cardizem CD] 120 mg PO DAILY 09/08/18 Zolpidem Tartrate [Ambien] 10 mg PO QHS 09/09/18 Benzonatate [Tessalon Perle] 100 mg PO 4X/DAY PRN PRN #12 cap 09/11/18 albuterol sulfate HFA 90 2 puff INHALATION Q4H PRN PRN g 09/17/18 mcg/actuation aerosol inhaler Bisacodyl [Dulcolax] 10 mg RECTAL DAILY PRN PRN 01/17/19 Budesonide 2 ml IH BID 01/17/19 Magnesium Hydroxide [Milk Of 30 ml PO DAILY PRN PRN 01/17/19 Magnesia] Mineral Oil 1 bottle [place] DAILY PRN PRN 01/17/19 Omeprazole 20 mg PO DAILY 01/17/19 Potassium Chloride [K-Dur] 20 meq PO BID 01/17/19 Senna [Senokot] 1 tab PO BID 01/17/19 Sucralfate [Carafate] 1 gm PO 4X/DAY PRN 01/17/19 Vit A/Vit C/Vit E/Zinc/Copper 1 ea PO BID 01/17/19 [Preservision Areds Tablet] Warfarin [Coumadin ([facility]KC)] 3 mg PO MOWEFR 01/17/19 Buspirone HCl 7.5 mg PO BID 05/07/19 Surgical History: Surgical History (Last Reviewed 05/07/19 @ 13:34 by Yoselin Junior DO) History of cholecystectomy Z90.49 History of total hysterectomy Z90.710 tailbone surgery Surgical History: - - Hysterectomy, cholecystectomy, tailbone surgery. 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 Paternal Family History: Family History (Last Reviewed 05/07/19 @ 13:35 by Ysoelin Junior DO) Sister Heart disease History Items: - - Patient denies any marketed paternal family history including heart disease, diabetes, cancer. Sibling Family History: Family History (Last Reviewed 05/07/19 @ 13:35 by Yoselin Junior DO) Sister Heart disease History Items: - - Patient notes a sibling specifically her sister with Parkinson's disease and heart disease as well as a brother with Parkinson's disease, asthma and history of blood clots. Review of Systems Constitutional: Reports: Malaise. Denies: Anorexia, Chills, Fever, Weight Change HEENT: Denies: Difficulty Swallowing, Head Aches, Nasal Congestion, Sinus Congestion, Sinus Drainage, Sore Throat Cardiovascular: Reports: Palpitations. Denies: Chest Pain, Edema, Light Headedness Respiratory: Reports: Shortness of Breath, Shortness of breath at rest, Shortness of breath upon exertion, Wheezing. Denies: Cough, Hemoptysis, Pleuritic Pain, Sputum production Gastrointestinal: Denies: Abdominal Pain, Diarrhea, Nausea, Vomiting Genitourinary: Denies: Dysuria Musculoskeletal: Denies: Joint Pain, Joint Tenderness Skin: Denies: Jaundice, Rash, Wounds Neurological: Denies: Change in Speech, Confusion, Focal weakness, Numbness, Tingling, Seizures Psychiatric: Reports: Anxiety, Depression. Denies: Homicidal Ideations, Suicidal Ideations Endocrine: Denies: Change in Body Habitus Hematologic/ Lymphatic: Reports: Hx of blood clot. Denies: Easy Bruising, Easy Bleeding VTE Information - Inpt Only VTE Present on Admission: No VTE Mechan Device Prophylaxis: Knee High GRETA Hose, None - she is therapeutic on Warfarin. VTE Pharm Prophylaxis ordered?: No Patient Problems: Active and Suspected Problems (Last Reviewed 05/07/19 @ 13:34 by Yoselin Junior DO) Acute diastolic (congestive) heart failure (Acute) COPD with acute exacerbation (Acute) Atrial fibrillation with RVR (Acute) - Physical Exam Vitals/I&O's: Vital Signs Temp Pulse Resp BP Pulse Ox 98.4 F 99 18 119/69 99 05/07/19 12:04 05/07/19 12:13 05/07/19 12:04 05/07/19 12:04 05/07/19 12:04 Oxygen Flow Rate (L/min) 2 Oxygen Delivery Method Nasal Cannula Weight: 194 lb 0.108 oz Body Mass Index (BMI) 30.4 General: Alert, Oriented x3, Cooperative, - - she is tachypneic and has conversational dyspnea.....speaking in 3-4 word phrases. HEENT: Atraumatic, PERRLA, EOMI, Normocephalic Oral: Moist Mucosa Neck: Supple, Trachea Midline, - - she was sitting upright in a chair and is unable to lie down to evaluate for JVD due to SOB Lungs: No rales, Diminished - Very diminished throughout, roma in the bases, Rhonchi, Short of Breath, Tachypneic, Using Accessory Muscles, - - Number seasonal dyspnea Cardiovascular: Normal S1, Normal S2, No murmurs, Irregular Rate, No rub noted, No Gallop, Tachycardic, - - AF on the monitor with RVR Abdomen: Bowel Sounds Present, Soft, Non Tender, Non-Distended Extremities: No clubbing, No cyanosis Laboratory Results 05/07/19 09:15: WBC 11.6 H, RBC 4.01 L, Hgb 10.2 L, Hct 34.6 L, MCV 86.3, MCH 25.4 L, MCHC 29.5 L, RDW Std Deviation 49.4 H, RDW Coeff of Laura 15.6 H, Plt Count 268, MPV 11.9, Immature Gran % (Auto) 0.800, Neut % (Auto) 81.3 H, Lymph % (Auto) 10.3 L, [place] % (Auto) 5.6, Eos % (Auto) 1.5, Baso % (Auto) 0.5, Absolute Neuts (auto) 9.4 H, Absolute Lymphs (auto) 1.19, Nucleated RBC % 0 05/07/19 09:15: Sodium 141, Potassium 3.8, Chloride 102, Carbon Dioxide 36.0 H, Anion Gap 3 L, BUN 16, Creatinine 0.67, Estim Creat Clear Calc 47.27, Est GFR (MDRD) Af Amer 110, Est GFR (MDRD) Non-Af 91, BUN/Creatinine Ratio 23.8 H, Glucose 122 H, Calcium 9.1, Troponin I < 0.015 05/07/19 09:15: B-Natriuretic Peptide 468.2 H 05/07/19 09:15: Total Bilirubin 1.10 H, Direct Bilirubin 0.24, AST 17, ALT 19, Alkaline Phosphatase 133 H, Total Protein 7.8, Albumin 3.5, Globulin 4.3 H 05/07/19 09:15: Magnesium 2.5 Current Medications Methylprednisolone (Solu-Medrol) 40 mg IV Q8 [facility] Assessment/Plan All Active Problems (Last Reviewed 05/07/19 @ 13:34 by Yoselin Junior DO) Acute diastolic (congestive) heart failure (Acute) COPD with acute exacerbation (Acute) Atrial fibrillation with RVR (Acute) Hypokalemia (Resolved) Metabolic alkalosis with respiratory acidosis (Resolved) Impressions 1. acute respiratory insufficiency on chronic hypoxic respiratory failure secondary to acute exacerbation COPD due to AF with RVR and acute diastolic CHF on chronic diastolic CHF. Started on a cardizem drip. 1 dose of Dig given. IV steroid ordered and IV Lasix 40 BID. ATC aerosolized bronchodilators ordered. 2. PAF with RVR - consult cardiology to participate in management. Starting a cardizem infusion. Lasix ordered. 3. acute on chronic diastolic CHF - need to control the HR. 4. COPD with acute exacerbation 5. hx of sleep apnea - could not tolerate the mask in the past......last sleep study was many years ago. 6. Pulmonary hypertension 7. Tobacco dependence in remission 8. History of recurrent deep vein thrombosis and pulmonary embolus-on lifelong anticoagulation with warfarin 9. Diastolic dysfunction 10. Dyslipidemia-continue chronic medications 11. Chronic anemia but the MCV is recently been decreasing. Will check iron studies and check a Hemoccult stool Code Visit Inpatient E&M: [id number] Init Hosp L3
[2019-05-07 13:26] LABS: International Normalized Ratio 2.4; Prothrombin Time (Protime)PT. 25.8 SECONDS (11.7-14.9)
[2019-05-07] MEDS: dilTIAZem 25 MG/5 ML Vial 10 MG IV BOLUS (13:37)
--- NOTE | 2019-05-07 14:04 | NURSING ---
pt refusing GRETA delgado
[2019-05-07 14:10] LABS: Ferritin 33 ng/mL (8-252); Iron 31 ug/dL (50-170); Iron Binding Capacity,Total 371 ug/dL (250-450); PERCENT IRON SATURATION 8.4 % (15.0-55.0); Thyroid Stim Hormone (TSH) 3.06 uIU/mL (0.358-3.74)
[2019-05-07 14:11] LABS: Allen Test POS; Base Excess 11 mmol/L (-2 to +2); Bicarbonate 34.6 mmol/L (22-26); Blood Gas Specimen Type ART; O2 Delivery Device Nasal Can; PO2 89 mmHG (75-100); SITE L Radial; SO2 97 % (95-99); Time Given 1400; Total Carbon Dioxide 36 mmol/L; pCO2 45.7 mmHg (35-45); pH 7.49 (7.35-7.45)
[2019-05-07] MEDS: Ipratropium 0.5 MG/2.5 ML SOLUTION INHALATION ×3 (14:57→22:52)
--- NOTE | 2019-05-07 15:12 | CON.PCM_ITS ---
Problem List (1) Atrial fibrillation with RVR Status: Acute (2) Acute diastolic (congestive) heart failure Status: Acute (3) Dyslipidemia Status: Chronic (4) HTN (hypertension) Status: Chronic (5) COPD with acute exacerbation Status: Acute (6) Pulmonary hypertension Status: Chronic (7) History of recurrent deep vein thrombosis (DVT) Status: Chronic (8) History of pulmonary embolism Status: Chronic Reason for Consult Date of Consultation: 05/07/19 History of Present Illness: The patient is a 73 year [id number] white female with a past medical history of atrial fibrillation, decreased diastolic compliance, hyperlipidemia, hypertension, COPD, pulmonary hypertension, history of thromboembolic disease with DVT/PE, who is referred for further evaluation of atrial fibrillation and concerns of acute diastolic mediated CHF superimposed upon an underlying COPD exacerbation. The patient has been residing in an extended care facility. She believes that she has been able to sense her heart rate has been elevated at times. She states she has been progressively short of breath and dyspneic at rest and with activity. She has denied ongoing chest discomfort. She states she has had ongoing lower extremity peripheral pitting edema. She does not recall any near syncope or syncope. She was subsequently transferred from her ECF to the [facility] emergency department for evaluation. She was found to have atrial fibrillation with rapid ventricular response and concerns of underlying acute diastolic mediated CHF superimposed upon an underlying COPD exacerbation. She was subsequently admitted to the PCU for further evaluation and care. Since admission her troponin I levels have been negative. Her ECG is demonstrated atrial fibrillation with rapid ventricular response. She has initiated medical management which has included rate control therapy with IV diltiazem and diuretic therapy with IV furosemide. [] Past Medical History Allergies/Adverse Reactions: Allergies amlodipine besylate [From [facility]] Adverse Reaction (Verified 05/07/19 09:14) ANKLE AND LEG EDEMA RESOLVED OFF MED-PER PCP PAPERWORK codeine Adverse Reaction (Verified 05/07/19 09:14) MENTAL STATUS CHANGE lisinopril Adverse Reaction (Verified 05/07/19 09:14) COUGH Home Medications: Ambulatory Orders Medication Instructions Recorded Ergocalciferol [Vitamin D] 50,000 unit PO TH 07/19/15 Warfarin Sodium 4 mg PO SUTUTHSA 03/08/18 Furosemide 40 mg PO BID #60 tab 03/11/18 Ascorbic Acid [Vitamin C] 500 mg PO DAILY 05/23/18 Citalopram Hydrobromide 40 mg PO DAILY 05/23/18 [Citalopram HBr] Cyanocobalamin (Vitamin B-12) 500 mcg PO DAILY 05/23/18 [Vitamin B-12] Ipratropium/Albuterol Sulfate 3 ml INHALATION 4X/DAY 08/10/18 [Duoneb] Acetaminophen [Tylenol Tablet] 650 mg PO Q6H PRN PRN tab 08/12/18 Atenolol [Tenormin (beta donna)] 50 mg PO BID 09/08/18 Diltiazem CD [Cardizem CD] 120 mg PO DAILY 09/08/18 Zolpidem Tartrate [Ambien] 10 mg PO QHS 09/09/18 Benzonatate [Tessalon Perle] 100 mg PO 4X/DAY PRN PRN #12 cap 09/11/18 albuterol sulfate HFA 90 2 puff INHALATION Q4H PRN PRN g 09/17/18 mcg/actuation aerosol inhaler Bisacodyl [Dulcolax] 10 mg RECTAL DAILY PRN PRN 01/17/19 Budesonide 2 ml IH BID 01/17/19 Magnesium Hydroxide [Milk Of 30 ml PO DAILY PRN PRN 01/17/19 Magnesia] Mineral Oil 1 bottle VT DAILY PRN PRN 01/17/19 Omeprazole 20 mg PO DAILY 01/17/19 Potassium Chloride [K-Dur] 20 meq PO BID 01/17/19 Senna [Senokot] 1 tab PO BID 01/17/19 Sucralfate [Carafate] 1 gm PO 4X/DAY PRN 01/17/19 Vit A/Vit C/Vit E/Zinc/Copper 1 ea PO BID 01/17/19 [Preservision Areds Tablet] Warfarin [Coumadin (PBKC)] 3 mg PO MOWEFR 01/17/19 Buspirone HCl 7.5 mg PO BID 05/07/19 Past Medical History (Chronic Problems): Chronic Problems (Last Reviewed 05/07/19 @ 13:34 by Yoselin Junior DO) Acute exacerbation of CHF (congestive heart failure) (Chronic) Pulmonary hypertension (Chronic) History of recurrent deep vein thrombosis (DVT) (Chronic) History of pulmonary embolism (Chronic) History of cardioversion (Chronic) January of 2018.....HR not controlled with exertion while in AF on Beta donna and cardizem. Converted to NSR with cardioversion Paroxysmal atrial fibrillation (Chronic) Chronic anemia (Chronic) new since November and the MCV has been decreasing. HTN (hypertension) (Chronic) Depression (Chronic) Obesity (BMI 30.0-34.9) (Chronic) Former tobacco use (Chronic) Diastolic dysfunction (Chronic) Chronic hypoxemic respiratory failure (Chronic) Chronic anticoagulation (Chronic) Dyslipidemia (Chronic) COPD (chronic obstructive pulmonary disease) (Chronic) Surgical History: - - Hysterectomy, cholecystectomy, tailbone surgery. 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 Paternal Family History: Family History (Last Reviewed 05/07/19 @ 13:35 by Yoselin Junior DO) Sister Heart disease History Items: - - Patient denies any marketed paternal family history including heart disease, diabetes, cancer. Sibling Family History: Family History (Last Reviewed 05/07/19 @ 13:35 by Yoselin Junior DO) Sister Heart disease History Items: - - Patient notes a sibling specifically her sister with Parkinson's disease and heart disease as well as a brother with Parkinson's disease, asthma and history of blood clots. Lives: Assisted - [address] [facility] Smoking Status: Former smoker Tobacco Use: Cigarettes Alcohol: None Drugs: None Review of Systems - Review of Systems General: Denies: Fever, Night Sweats, Fatigue Cardiovascular: Reports: Shortness of Breath, Shortness of Breath at Rest, Shortness of Breath with Exertion, Peripheral Edema, Palpitations. Denies: Chest Discomfort, Orthopnea, PND, Lightheadedness, Dizziness, Near Syncope, Syncope Respiratory: Reports: Shortness of Breath. Denies: Cough, Sputum Production, Hemoptysis Gastrointestinal: Denies: Hematemesis, Hematochezia, Melena Genitourinary: Denies: Dysuria, Hematuria Skin: Denies: Rash Subjectve: This is a 73-year-old white female who appears to be resting comfortably at the moment in no acute distress. Objective: Vital Signs Temp Pulse Resp BP Pulse Ox 98.4 F 90 24 H 109/67 95 05/07/19 12:04 05/07/19 14:57 05/07/19 14:57 05/07/19 14:30 05/07/19 14:57 Oxygen Flow Rate (L/min) 2 Oxygen Delivery Method Nasal Cannula Weight: 194 lb 0.108 oz Body Mass Index (BMI) 30.4 Intake and Output for Last 24 Hours 05/05/19 05/06/19 05/07/19 23:59 23:59 23:59 Intake Total 8.17 / 8.17 Balance 8.17 / 8.17 General: Awake, Alert, Oriented x 3, Cooperative, No Acute Distress HEENT: Atraumatic, Normocephalic, PERRL, EOMI, Sclera Non Icteric Oral: Moist Mucosa Neck: Supple, Good ROM, No JVD Lungs: Diminished Manuel Bases Cardiovascular: Irregular Rhythm, Normal S1, Normal S2 Abdomen: Bowel Sounds Present, Soft, Non Tender Extremities: Mild RLE Edema, Mild LLE Edema Psych/Mental Status: Appropriate 05/07/19 06:00: Iron 31 L, TIBC 371, Iron Saturation 8.4 L, Ferritin 33 05/07/19 09:15: WBC 11.6 H, RBC 4.01 L, Hgb 10.2 L, Hct 34.6 L, MCV 86.3, MCH 25.4 L, MCHC 29.5 L, Plt Count 268, MPV 11.9, Immature Gran % (Auto) 0.800, Neut % (Auto) 81.3 H, Lymph % (Auto) 10.3 L, [place] % (Auto) 5.6, Eos % (Auto) 1.5, Baso % (Auto) 0.5, Absolute Neuts (auto) 9.4 H, Nucleated RBC % 0 05/07/19 09:15: Sodium 141, Potassium 3.8, Chloride 102, Carbon Dioxide 36.0 H, Anion Gap 3 L, BUN 16, Creatinine 0.67, Est GFR (MDRD) Af Amer 110, Est GFR (MDRD) Non-Af 91, BUN/Creatinine Ratio 23.8 H, Glucose 122 H, Calcium 9.1, Troponin I < 0.015 05/07/19 09:15: B-Natriuretic Peptide 468.2 H 05/07/19 09:15: Total Bilirubin 1.10 H, Direct Bilirubin 0.24 05/07/19 09:15: Magnesium 2.5 05/07/19 09:15: PT 25.8 H, INR 2.4 05/07/19 14:00: Troponin I < 0.015 05/07/19 14:06: pH 7.49 H, Bicarbonate Actual 34.6 H, POC Total CO2 36, Base Excess 11 H, O2 Saturation 97, ABG pCO2 45.7 H, ABG pO2 89, Mj Test POS Rhythm: Atrial fibrillation with RVR EKG: ECHO: 09-08-18: Left ventricle normal with LVEF 60%; mild left atrial enlargement; moderate right atrial enlargement; moderate mitral annular calcification; trivial MR; mild TR; moderate focal aortic valve calcification; estimated RV systolic pressure of 35 mmHg; unable to assess diastolic function CXR: Preliminary evaluation: Increased pulmonary vascularity: Please see official report Assessment/Plan 1. Atrial fibrillation with rapid ventricular response The patient presents with recurrent atrial fibrillation with rapid ventricular response. At the present time she is being monitored. She is continuing medical therapy. She has been on a combination of medications including beta-blockers and calcium channel antagonist. Her medications will be continued and adjusted as deemed appropriate. She is also been on anticoagulant therapy with warfarin/Coumadin. 2. Acute diastolic mediated CHF The patient appears to have findings compatible with acute diastolic mediated CHF. This may be brought out by her atrial fibrillation with RVR superimposed upon her underlying pulmonary disease process. At the present time she will continue to be monitored. She will continue attempts at controlling her atrial fibrillation and improving her pulmonary disease process. She will also continue medical therapy with IV diuretics. 3. Hyperlipidemia She will continue medical management as deemed appropriate. 4. Hypertension Her blood pressure will be followed and her medications will be adjusted as deemed appropriate. 5. COPD She has a history of underlying COPD. She will need continued evaluation care per internal medicine. At the same time it would not be unreasonable to consider pulmonary consultation for further evaluation and care and opinions on whether or not she is a candidate for additional medical management from a cardiovascular standpoint which may include agents such as amiodarone therapy. 6. Pulmonary hypertension She will continue evaluation care per internal medicine and again consideration to pulmonary consultation would not be unreasonable. In the meantime she will continue medical therapy and O2 support. 7. Thromboembolic disease with history of DVT/PE She has been on anticoagulant therapy. This can be continued unless it needs to be interrupted for an invasive evaluation or care/type procedure. The patient's case was discussed and reviewed with the patient and Dr. Junior. This note was generated using a voice recognition system and there may be incorrect words, spelling or punctuation that were not noted when reviewing the office note prior to saving.
--- NOTE | 2019-05-07 15:26 | CASEMGMT ---
Patient is from [facility]. SW will follow for d/c back to [facility]. Regla VIZCARRA MSW
[2019-05-07] MEDS: Digoxin 250 MCG/ML Ampul 500 MCG IV (16:04)
[2019-05-07] MEDS: Sucralfate 1 GM Tablet PO (17:12)
[2019-05-07] MEDS: Citalopram 40 MG TABLET PO (17:12)
[2019-05-07] MEDS: busPIRone 5 MG Tablet 7.5 MG PO (21:00)
[2019-05-07] MEDS: Atenolol 50 MG Tablet PO (21:00)
[2019-05-07] MEDS: Senna Tablet 1 TABLET PO (21:00)
[2019-05-07] MEDS: Pantoprazole Sodium 20 MG Tablet PO (21:00)
[2019-05-07] MEDS: 0.9% Saline Lock 10 ML Syringe IV (21:01)
[2019-05-07] MEDS: MELATONIN 3 MG TABLET 1.5 MG PO (22:27)
[2019-05-08] VITALS (29 sets, daily range): BP systolic 106–132; BP diastolic 59–91; PULSE 67–94; RESP 16–80; TEMP 36.6–36.7; O2SAT 96–98
[2019-05-08] MEDS: Ipratropium 0.5 MG/2.5 ML SOLUTION INHALATION ×5 (03:09→19:59)
[2019-05-08] MEDS: Acetaminophen 325 MG Tablet 650 MG PO ×2 (04:08→16:08)
[2019-05-08] MEDS: 0.9% Saline Lock 10 ML Syringe IV ×5 (06:33→21:53)
[2019-05-08 06:39] LABS: Hematocrit 30.3 % (37-47); Hemoglobin 9.2 g/dL (12.0-15.0); Mean Corp Hgb Conc 30.4 g/dL (32-36); Mean Corpuscular Hgb 25.2 pg (27.0-32.0); Platelet Count 228 K/mm3 (150-450); RBC Distribution Width CV 15.8 % (11.6-14.6); RBC Distribution Width SD 47.9 fl (35.1-43.9); Red Blood Count 3.65 M/mm3 (4.2-5.4); White Blood Count 13.1 K/mm3 (4.4-11.0)
[2019-05-08 07:09] LABS: ALB/GLOB Ratio 0.8 RATIO (0.9-2.4); AST(SGOT) 14 U/L (15-37); Alanine Aminotransfer ALT/SGPT 14 U/L (13-56); Albumin, Serum 3.1 g/dL (3.2-5.0); Alkaline Phosphatase 116 U/L (45-117); Anion Gap 3 (5-15); BUN 23 mg/dL (7-18); BUN/Creat Ratio 35.1 RATIO (10-20); Calcium,Total 8.9 mg/dL (8.5-10.1); Chloride 102 mmol/L (98-107); Cholesterol 221 mg/dL (200); Creatinine, Serum 0.66 mg/dL (0.55-1.02); EST Glomerular Filtration Rate 93 mL/min (>60); Est Glom Filt Rate - Afr Amer 113 mL/min (>60); Estimated Creatinine Clearance 47.27 ml/min; Glucose 138 mg/dL (74-106); High Density Lipoprotein 54 mg/dL; Magnesium 2.3 mg/dL (1.6-2.6); Phosphorus 3.2 mg/dL (2.5-4.9); Potassium 4.1 mmol/L (3.5-5.1); Protein, Total 7.1 g/dL (6.4-8.2); Sodium Level 139 mmol/L (136-145); Triglycerides 48 mg/dL; Very Low Density Lipoprotein 10 mg/dL (5-40)
[2019-05-08] MEDS: Sucralfate 1 GM Tablet PO (07:52)
[2019-05-08] MEDS: Ascorbic Acid 500 MG Tablet PO (07:56)
[2019-05-08] MEDS: Cyanocobalamin 500 MCG Tablet PO (07:56)
[2019-05-08] MEDS: busPIRone 5 MG Tablet 7.5 MG PO ×2 (07:57→21:47)
[2019-05-08] MEDS: Citalopram 40 MG TABLET PO (07:57)
[2019-05-08] MEDS: Atenolol 50 MG Tablet PO ×2 (07:58→21:48)
[2019-05-08] MEDS: Pantoprazole Sodium 20 MG Tablet PO ×2 (07:58→21:48)
[2019-05-08] MEDS: Senna Tablet 1 TABLET PO ×2 (07:58→21:48)
--- NOTE | 2019-05-08 08:03 | NURSING ---
pt requesting morning medications early.
[2019-05-08] MEDS: Furosemide 40 MG/4 ML Vial IV ×2 (09:18→17:20)
--- NOTE | 2019-05-08 09:35 | PCM.PN.CARD ---
Subjectve: The patient states she feels somewhat better with respect to her heart rate sensations today. She is still chronically short of breath. Objective: Vital Signs Temp Pulse Resp BP Pulse Ox 97.9 F 75 18 107/73 98 05/08/19 07:00 05/08/19 09:00 05/08/19 09:00 05/08/19 09:00 05/08/19 09:00 Oxygen Flow Rate (L/min) 2 Oxygen Delivery Method Nasal Cannula Weight: 194 lb 0.108 oz Body Mass Index (BMI) 30.4 Intake and Output for Last 24 Hours 05/06/19 05/07/19 05/08/19 23:59 23:59 23:59 Intake Total 607.75 / 857.75 463.99 / 463.99 Output Total 2250 / 2750 800 / 800 Balance -1642.25 / -1892.25 -336.01 / -336.01 General: Awake, Alert, Oriented x 3, Cooperative, No Acute Distress HEENT: Atraumatic, Normocephalic, PERRL, EOMI, Sclera Non Icteric Oral: Moist Mucosa Neck: Supple, Good ROM, No JVD Lungs: Diminished Manuel Bases Cardiovascular: Irregular Rhythm, Normal S1, Normal S2 Abdomen: Bowel Sounds Present, Soft, Non Tender Extremities: Mild RLE Edema, Mild LLE Edema Psych/Mental Status: Appropriate 05/07/19 06:00: Iron 31 L, TIBC 371, Iron Saturation 8.4 L, Ferritin 33 05/07/19 09:15: WBC 11.6 H, RBC 4.01 L, Hgb 10.2 L, Hct 34.6 L, MCV 86.3, MCH 25.4 L, MCHC 29.5 L, Plt Count 268, MPV 11.9, Immature Gran % (Auto) 0.800, Neut % (Auto) 81.3 H, Lymph % (Auto) 10.3 L, [place] % (Auto) 5.6, Eos % (Auto) 1.5, Baso % (Auto) 0.5, Absolute Neuts (auto) 9.4 H, Nucleated RBC % 0 05/07/19 09:15: Sodium 141, Potassium 3.8, Chloride 102, Carbon Dioxide 36.0 H, Anion Gap 3 L, BUN 16, Creatinine 0.67, Est GFR (MDRD) Af Amer 110, Est GFR (MDRD) Non-Af 91, BUN/Creatinine Ratio 23.8 H, Glucose 122 H, Calcium 9.1, Troponin I < 0.015 05/07/19 09:15: B-Natriuretic Peptide 468.2 H 05/07/19 09:15: Total Bilirubin 1.10 H, Direct Bilirubin 0.24 05/07/19 09:15: Magnesium 2.5 05/07/19 09:15: PT 25.8 H, INR 2.4 05/07/19 14:00: Troponin I < 0.015 05/07/19 14:06: pH 7.49 H, Bicarbonate Actual 34.6 H, POC Total CO2 36, Base Excess 11 H, O2 Saturation 97, ABG pCO2 45.7 H, ABG pO2 89, Mj Test POS 05/07/19 16:30: Troponin I < 0.015 05/07/19 20:20: Troponin I < 0.015 05/08/19 06:20: WBC 13.1 H, RBC 3.65 L, Hgb 9.2 L, Hct 30.3 L, MCV 83.0, MCH 25.2 L, MCHC 30.4 L, Plt Count 228, MPV 12.0 05/08/19 06:20: Sodium 139, Potassium 4.1, Chloride 102, Carbon Dioxide 34.0 H, Anion Gap 3 L, BUN 23 H, Creatinine 0.66, Est GFR (MDRD) Af Amer 113, Est GFR (MDRD) Non-Af 93, BUN/Creatinine Ratio 35.1 H, Glucose 138 H, Calcium 8.9, Phosphorus 3.2, Magnesium 2.3, Total Bilirubin 1.20 H, Triglycerides 48, Cholesterol 221 H, LDL Cholesterol 157 H, VLDL Cholesterol 10, HDL Cholesterol 54 Rhythm: Atrial fibrillation Medical Necessity - Tobacco Use Smoking Status: Former smoker Tobacco Use: Cigarettes Assessment/Plan 1. Atrial fibrillation with rapid ventricular response The patient presents with recurrent atrial fibrillation with rapid ventricular response. At the present time she is being monitored. She is continuing medical therapy. She has been on a combination of medications including beta-blockers and calcium channel antagonist. She is also been on anticoagulant therapy with warfarin/Coumadin. At the present time an attempt will be made to wean her IV diltiazem off and substitute oral diltiazem therapy. 2. Acute diastolic mediated CHF The patient appears to have findings compatible with acute diastolic mediated CHF. This may be brought out by her atrial fibrillation with RVR superimposed upon her underlying pulmonary disease process. At the present time she will continue to be monitored. She will continue attempts at controlling her atrial fibrillation and improving her pulmonary disease process. She will also continue medical therapy with IV diuretics. 3. Hyperlipidemia She will continue medical management as deemed appropriate. 4. Hypertension Her blood pressure will be followed and her medications will be adjusted as deemed appropriate. 5. COPD She has a history of underlying COPD. She will need continued evaluation care per internal medicine. At the same time it would not be unreasonable to consider pulmonary consultation for further evaluation and care and opinions on whether or not she is a candidate for additional medical management from a cardiovascular standpoint which may include agents such as amiodarone therapy. 6. Pulmonary hypertension She will continue evaluation care per internal medicine and again consideration to pulmonary consultation would not be unreasonable. In the meantime she will continue medical therapy and O2 support. 7. Thromboembolic disease with history of DVT/PE She has been on anticoagulant therapy. This can be continued unless it needs to be interrupted for an invasive evaluation or care/type procedure. This note was generated using a voice recognition system and there may be incorrect words, spelling or punctuation that were not noted when reviewing the office note prior to saving.
--- NOTE | 2019-05-08 09:42 | CASEMGMT ---
YAO faxed updates to [employer]. Regla VIZCARRA JUMP ROLL OPERATOR
[2019-05-08] MEDS: dilTIAZem CD 120 MG Capsule PO ×2 (09:55→21:48)
[2019-05-08] MEDS: Magnesium Hydroxide 30 ML UDC PO (11:35)
--- NOTE | 2019-05-08 18:40 | PN_ITS ---
Subjective: All events of the past 24 hours been reviewed. Afebrile since admission Heart rate is much better controlled. Blood pressure is stable. Currently 97% on 2 L nasal cannula. Fluid balance since admission is -2669. All labs personally reviewed. Despite diuresis the hemoglobin has dropped from 10.2-9.2. Platelets are normal. White blood cell count is increased to 13.1 but she is on high-dose steroids. BUN is increased at 23 today and the creatinine is stable at 0.66. Calcium is 4.1 and the serum bicarb is 34, down from 36 at admission. Total bili is mildly increased to 1.2 but the other LFTs are within normal limits. Serial cardiac enzymes were negative. LDL is 157 and the HDL is 54. Triglycerides are within normal limits at 48. Respiratory panel was negative. Hemoccult stool is pending. I Reviewed Dr. Jaffe's note from today and she has been transitioned to oral Cardizem with no exacerbation in the heart rate. - Physical Exam Vitals/I&O's: Vital Signs Temp Pulse Resp BP Pulse Ox 98.0 F 72 18 122/67 H 97 05/08/19 16:12 05/08/19 16:12 05/08/19 16:12 05/08/19 16:12 05/08/19 16:12 Oxygen Flow Rate (L/min) 2 Oxygen Delivery Method Nasal Cannula Weight: 194 lb 0.108 oz Body Mass Index (BMI) 30.4 Intake and Output for Last 24 Hours 05/06/19 05/07/19 05/08/19 23:59 23:59 23:59 Intake Total 607.75 / 857.75 798.16 / 798.16 Output Total 2250 / 2750 1825 / 1825 Balance -1642.25 / -1892.25 -1026.84 / -1026.84 General: Alert, Cooperative Oral: Moist Mucosa Neck: No Nodes, Trachea Midline Lungs: Diminished, - - Tachypnea, conversational dyspnea and accessory muscle use are much improved today. She feels that she is back to her baseline. She was able to talk to me in complete sentences without stopping to take a deep indira ath. Cardiovascular: Normal S1, Normal S2, Irregular Rate, No Gallop, - - Telemetry shows atrial fibrillation with no significant ventricular ectopy. Abdomen: Bowel Sounds Present, Soft, Non Tender, Non-Distended Extremities: No edema Neurological: Cranial nerves II-XII grossly intact, Neuro grossly intact Psych/Mental Status: Normal Affect, Appropriate Microbiology Past 72 Hours 05/07/19 13:42 Mucosa - Nasopharyngeal Respiratory Panel (PCR) - Final Laboratory Results 05/07/19 20:20: Troponin I < 0.015 05/08/19 06:20: WBC 13.1 H, RBC 3.65 L, Hgb 9.2 L, Hct 30.3 L, MCV 83.0, MCH 25.2 L, MCHC 30.4 L, RDW Std Deviation 47.9 H, RDW Coeff of Laura 15.8 H, Plt Count 228, MPV 12.0 05/08/19 06:20: Sodium 139, Potassium 4.1, Chloride 102, Carbon Dioxide 34.0 H, Anion Gap 3 L, BUN 23 H, Creatinine 0.66, Estim Creat Clear Calc 47.27, Est GFR (MDRD) Af Amer 113, Est GFR (MDRD) Non-Af 93, BUN/Creatinine Ratio 35.1 H, Glucose 138 H, Calcium 8.9, Phosphorus 3.2, Magnesium 2.3, Total Bilirubin 1.20 H, AST 14 L, ALT 14, Alkaline Phosphatase 116, Total Protein 7.1, Albumin 3.1 L, Globulin 4.0, Albumin/Globulin Ratio 0.8 L, Triglycerides 48, Cholesterol 221 H, LDL Cholesterol 157 H, VLDL Cholesterol 10, HDL Cholesterol 54 Current Medications Acetaminophen (Tylenol) 650 mg PO Q6H PRN PRN PRN Reason: Mild Pain (scale 0-3)/T>100.7 Last Admin: 05/08/19 16:08 Dose: 650 mg Documented by: Ascorbic [facility] ([facility]amin C) [facility] Last Admin: 05/08/19 07:56 Dose: 500 mg Documented by: Atenolol (Tenormin (Beta [place])) 50 mg PO BID [facility] Last Admin: 05/08/19 07:58 Dose: 50 mg Documented by: Benzonatate (Tessalon Perle) 100 mg PO 4X/DAY PRN PRN PRN Reason: COUGH Bisacodyl (Dulcolax) 10 mg RECTAL DAILY PRN PRN PRN Reason: Constipation Buspirone HCl (Buspar) 7.5 mg PO BID [facility] Last Admin: 05/08/19 07:57 Dose: 7.5 mg Documented by: Citalopram Hydrobromide (Celexa) 40 mg PO DAILY [facility] Last Admin: 05/08/19 07:57 Dose: 40 mg Documented by: Cyanocobalamin (Vitamin B12) 500 mcg PO DAILYCM [facility] Last Admin: 05/08/19 07:56 Dose: 500 mcg Documented by: Diltiazem HCl (Cardizem Cd) 120 mg PO Q12 [facility] Last Admin: 05/08/19 09:55 Dose: 120 mg Documented by: Ergocalciferol (Vitamin D) 50,000 unit PO TH [facility] Furosemide (Lasix) 40 mg IV BID@1000,1800 [facility] Last Admin: 05/08/19 17:20 Dose: 40 mg Documented by: Ipratropium [place] (Atrovent) 0.5 mg INHALATION Q4H.RT [facility] Last Admin: 05/08/19 14:53 Dose: 0.5 mg Documented by: Magnesium Hydroxide (Milk Of Magnesia) 30 ml PO DAILY PRN PRN PRN Reason: Constipation Last Admin: 05/08/19 11:35 Dose: 30 ml Documented by: Melatonin (Melatonin) 1.5 mg PO QHS [facility] Last Admin: 05/07/19 22:27 Dose: 1.5 mg Documented by: Methylprednisolone (Solu-Medrol) 40 mg IV Q8 [facility] Last Admin: 05/08/19 13:49 Dose: 40 mg Documented by: Pantoprazole Sodium (Protonix) 20 mg PO BID [facility] Last Admin: 05/08/19 07:58 Dose: 20 mg Documented by: Potassium Chloride (K-Dur) [facility]q [facility] Last Admin: 05/08/19 16:07 Dose: 20 meq Documented by: Prochlorperazine Edisylate (Compazine Iv) 5 mg IV Q6H PRN PRN PRN Reason: NAUSEA/VOMITING Senna (Senokot) 1 tablet PO BID [facility] Last Admin: 05/08/19 07:58 Dose: 1 tablet Documented by: Sodium Chloride () 10 - 40 ml IV UD PRN PRN Reason: SALINE FLUSH Last Admin: 05/08/19 17:20 Dose: 10 ml Documented by: Sucralfate (Carafate) 1 gm PO 1HR_ACHS PRN PRN Reason: GI UPSET Last Admin: 05/08/19 07:52 Dose: 1 gm Documented by: Warfarin Sodium (Coumadin (Pbkc)) 3 mg PO [id number]@1700 [facility] Last Admin: 05/08/19 16:07 Dose: 3 mg Documented by: Warfarin Sodium (Coumadin (Pbkc)) 4 mg PO SuTuThSa@1700 [facility] Last Admin: 05/07/19 16:03 Dose: 4 mg Documented by: Medical Necessity - Tobacco Use Smoking Status: Former smoker Tobacco Use: Cigarettes Assessment/Plan All Active Problems (Last Reviewed 05/07/19 @ 13:34 by Yoselin Junior DO) Acute diastolic (congestive) heart failure (Acute) COPD with acute exacerbation (Acute) Atrial fibrillation with RVR (Acute) Hypokalemia (Resolved) Metabolic alkalosis with respiratory acidosis (Resolved) Impressions 1. acute respiratory insufficiency on chronic hypoxic respiratory failure secondary to acute exacerbation COPD due to AF with RVR and acute diastolic CHF on chronic diastolic CHF. Started on a cardizem drip. 1 dose of Dig given. IV steroid ordered and IV Lasix 40 BID. ATC aerosolized bronchodilators ordered. Much improved today now that the heart rate is controlled 2. PAF with RVR -being followed by Dr. Jaffe. Transitioning to oral Cardizem today. We will continue to monitor the heart rate and adjust Cardizem dose as needed. 3. acute on chronic diastolic CHF -resolved with control of her heart rate and some diuresis. 4. COPD with acute exacerbation -improving 5. hx of sleep apnea - could not tolerate the mask in the past......last sleep study was many years ago. We discussed with her that the pulmonary HTN would continue to get worse if this remained untreated and explained the process with her. I made her aware that there are many different masks available now and some patients are able to use the nasal pillows rather than a mask. She is considering having the test. Dr. Cates has been consulted. 6. Pulmonary hypertension 7. Tobacco dependence in remission 8. History of recurrent deep vein thrombosis and pulmonary embolus-on lifelong anticoagulation with warfarin 9. Diastolic dysfunction 10. Dyslipidemia-continue chronic medications 11. Chronic anemia but the MCV is recently been decreasing. Will check iron studies and check a Hemoccult stool Code Visit Inpatient E&M: 99592 Subs Hosp L2
[2019-05-08] MEDS: MELATONIN 3 MG TABLET 1.5 MG PO (21:48)
[2019-05-08] MEDS: Zolpidem Tartrate 5 MG Tablet PO (21:50)
[2019-05-09] VITALS (9 sets, daily range): BP systolic 108–126; BP diastolic 64–75; PULSE 69–89; RESP 16–20; TEMP 36.6–36.8; O2SAT 94–100
[2019-05-09] MEDS: 0.9% Saline Lock 10 ML Syringe IV ×2 (05:21→16:03)
[2019-05-09 07:01] LABS: International Normalized Ratio 2.7; Prothrombin Time (Protime)PT. 28.7 SECONDS (11.7-14.9)
[2019-05-09 07:04] LABS: Anion Gap 4 (5-15); BUN 36 mg/dL (7-18); BUN/Creat Ratio 46.1 RATIO (10-20); Calcium,Total 8.8 mg/dL (8.5-10.1); Chloride 102 mmol/L (98-107); Creatinine, Serum 0.78 mg/dL (0.55-1.02); EST Glomerular Filtration Rate 76 mL/min (>60); Est Glom Filt Rate - Afr Amer 92 mL/min (>60); Estimated Creatinine Clearance 47.27 ml/min; Glucose 131 mg/dL (74-106); Magnesium 2.7 mg/dL (1.6-2.6); Potassium 4.3 mmol/L (3.5-5.1); Sodium Level 141 mmol/L (136-145)
[2019-05-09] MEDS: Ipratropium 0.5 MG/2.5 ML SOLUTION INHALATION ×3 (07:19→15:02)
--- NOTE | 2019-05-09 08:27 | PCM.PN.CARD ---
Subjectve: The patient has been out of bed and up in the chair. She looks and feels better overall. She states her breathing has improved. She also notes her lower extremity edema has improved. Objective: Vital Signs Temp Pulse Resp BP Pulse Ox 98.1 F 82 18 108/64 94 05/09/19 03:46 05/09/19 07:05 05/09/19 07:05 05/09/19 03:46 05/09/19 07:00 Oxygen Flow Rate (L/min) 2 Oxygen Delivery Method Nasal Cannula Weight: 186 lb 8.177 oz Body Mass Index (BMI) 30.4 Intake and Output for Last 24 Hours 05/07/19 05/08/19 05/09/19 23:59 23:59 23:59 Intake Total 607.75 / 857.75 1038.16 / 1038.16 120 / 120 Output Total 2250 / 2750 2425 / 2425 300 / 300 Balance -1642.25 / -1892.25 -1386.84 / -1386.84 -180 / -180 General: Awake, Alert, Oriented x 3, Cooperative, No Acute Distress HEENT: Atraumatic, Normocephalic, PERRL, EOMI, Sclera Non Icteric Oral: Moist Mucosa Neck: Supple, Good ROM, No JVD Lungs: Diminished Manuel Bases Cardiovascular: Irregular Rhythm, Normal S1, Normal S2 Abdomen: Bowel Sounds Present, Soft, Non Tender Extremities: Mild RLE Edema, Mild LLE Edema Neurological: No Focal Motor or Sensory Deficit Psych/Mental Status: Appropriate 05/09/19 06:10: PT 28.7 H, INR 2.7 05/09/19 06:10: Sodium 141, Potassium 4.3, Chloride 102, Carbon Dioxide 35.0 H, Anion Gap 4 L, BUN 36 H, Creatinine 0.78, Est GFR (MDRD) Af Amer 92, Est GFR (MDRD) Non-Af 76, BUN/Creatinine Ratio 46.1 H, Glucose 131 H, Calcium 8.8, Magnesium 2.7 H Rhythm: Atrial fibrillation Medical Necessity - Tobacco Use Smoking Status: Former smoker Tobacco Use: Cigarettes Assessment/Plan 1. Atrial fibrillation with rapid ventricular response The patient presents with recurrent atrial fibrillation with rapid ventricular response. Her medications have been altered to oral medications with a combination of beta-blockers and calcium channel antagonist. Her rate appears to be recently well controlled at this time. She is also continuing anticoagulant therapy. 2. Acute diastolic mediated CHF The patient appears to have findings compatible with acute diastolic mediated CHF. This may be brought out by her atrial fibrillation with RVR superimposed upon her underlying pulmonary disease process. At the present time she will continue to be monitored. 3. Hyperlipidemia She will continue medical management as deemed appropriate. 4. Hypertension Her blood pressure will be followed and her medications will be adjusted as deemed appropriate. 5. COPD She has a history of underlying COPD. She will need continued evaluation care per internal medicine. At the same time it would not be unreasonable to consider pulmonary consultation for further evaluation and care and opinions on whether or not she is a candidate for additional medical management from a cardiovascular standpoint which may include agents such as amiodarone therapy. 6. Pulmonary hypertension She will continue evaluation care per internal medicine and again consideration to pulmonary consultation would not be unreasonable. In the meantime she will continue medical therapy and O2 support. 7. Thromboembolic disease with history of DVT/PE She has been on anticoagulant therapy. This can be continued unless it needs to be interrupted for an invasive evaluation or care/type procedure. This note was generated using a voice recognition system and there may be incorrect words, spelling or punctuation that were not noted when reviewing the office note prior to saving.
--- NOTE | 2019-05-09 08:46 | CON.PCM_ITS ---
Reason for Consult Date of Consultation: 05/09/19 Reason for Consultation: COPD, chronic respiratory failure and concern for sleep apnea History of Present Illness: The patient is a 73-year-old female, with a history as outlined below, who presented to the emergency department on May 07 with complaints of shortness of breath. The patient has a known history of chronic obstructive pulmonary disease and is currently followed by Dr. Chavarria at [facility]. Prior pulmonary function studies from January 2017 did reveal evidence of severe obstructive lung disease with an FEV1 of 31% of predicted. The patient is currently on scheduled duo nebs and budesonide as an outpatient. She does have a baseline 2 L/min supplemental oxygen requirement at all times. Per documentation from the patient's pulmonary provider's office, she does have a history of recurrent COPD exacerbations. She does have a smoking history of 0.5 packs/day x 20 years, having quit completely in 2000. The patient is chronically anticoagulated due to a history of venous thromboembolic disease. She also has underlying pulmo nary hypertension and paroxysmal atrial fibrillation. On presentation to the hospital, the patient was noted to have a low-grade fever and was tachycardic and tachypneic. Initial laboratory evaluation revealed a white blood cell count of 12,000. INR was noted to be 2.4. Chemistry profile revealed a chronically elevated serum bicarbonate level. BNP was elevated to 468. Troponin was negative. Plain film chest x-ray revealed a mild degree of pulmonary vascular congestion. The patient was noted to be in atrial fibrillation in the emergency department. She was treated medically and subsequ ently admitted to the progressive care unit for further management. The patient's hospital course has included treatment for decompensated diastolic heart failure in the setting of atrial fibrillation with a rapid ventricular response. The patient is currently receiving scheduled aerosol treatments and is on methylprednisone as well. No pulmonary infectious process has been identified. The patient is currently maintaining appropriate oxygen saturations on her 2 L/min baseline requirement. In addition to the above, the patient does report a history of sleeping on average 6 hours per night. She does endorse the presence of nonrestorative sleep along with significant daytime hypersomnolence. She does occasionally take naps as well. The patient has never been formally evaluated for the presence of obstructive sleep apnea, but is agreeable to outpatient follow-up to complete said testing. Past Medical History Past Medical History (Chronic Problems): Chronic Problems (Last Reviewed 05/07/19 @ 13:34 by Yoselin Junior DO) Pulmonary hypertension (Chronic) History of recurrent deep vein thrombosis (DVT) (Chronic) History of pulmonary embolism (Chronic) History of cardioversion (Chronic) January of 2018.....HR not controlled with exertion while in AF on Beta madison and cardizem. Converted to NSR with cardioversion Paroxysmal atrial fibrillation (Chronic) HTN (hypertension) (Chronic) Iron deficiency anemia (Chronic) Depression (Chronic) Former tobacco use (Chronic) Diastolic dysfunction (Chronic) Chronic hypoxemic respiratory failure (Chronic) Chronic anticoagulation (Chronic) Dyslipidemia (Chronic) COPD (chronic obstructive pulmonary disease) (Chronic) Medical History: Medical History (Last Reviewed 05/07/19 @ 13:34 by Yoselin Junior DO) Dyslipidemia (Chronic) E78.5 COPD (chronic obstructive pulmonary disease) (Chronic) J44.9 Atrial fibrillation I48.91 COPD exacerbation J44.1 Heart failure with preserved ejection fraction I50.30 Group 2. EF 65% 12/05/17 History of pulmonary embolism Z86.711 Essential hypertension I10 History of DVT (deep vein thrombosis) Z86.718 History of pulmonary embolus (PE) Z86.711 Pulmonary HTN I27.20 Venous insufficiency I87.2 Hypokalemia (Resolved) E87.6 Metabolic alkalosis with respiratory acidosis (Resolved) E87.4 Allergies amlodipine besylate [From [facility]] Adverse Reaction (Verified 05/07/19 09:14) ANKLE AND LEG EDEMA RESOLVED OFF MED-PER PCP PAPERWORK codeine Adverse Reaction (Verified 05/07/19 09:14) MENTAL STATUS CHANGE lisinopril Adverse Reaction (Verified 05/07/19 09:14) COUGH Home Medications: Ambulatory Orders Medication Instructions Recorded Ergocalciferol [Vitamin D] 50,000 unit PO TH 07/19/15 Warfarin Sodium 4 mg PO SUTUTHSA 03/08/18 Furosemide 40 mg PO BID #60 tab 03/11/18 Ascorbic Acid [Vitamin C] 500 mg PO DAILY 05/23/18 Citalopram Hydrobromide 40 mg PO DAILY 05/23/18 [Citalopram HBr] Cyanocobalamin (Vitamin B-12) 500 mcg PO DAILY 05/23/18 [Vitamin B-12] Ipratropium/Albuterol Sulfate 3 ml INHALATION 4X/DAY 08/10/18 [Duoneb] Acetaminophen [Tylenol Tablet] 650 mg PO Q6H PRN PRN tab 08/12/18 Atenolol [Tenormin (beta madison)] 50 mg PO BID 09/08/18 Benzonatate [Tessalon Perle] 100 mg PO 4X/DAY PRN PRN #12 cap 09/11/18 albuterol sulfate HFA 90 2 puff INHALATION Q4H PRN PRN g 09/17/18 mcg/actuation aerosol inhaler Bisacodyl [Dulcolax] 10 mg RECTAL DAILY PRN PRN 01/17/19 Budesonide 2 ml IH BID 01/17/19 Magnesium Hydroxide [Milk Of 30 ml PO DAILY PRN PRN 01/17/19 Magnesia] Mineral Oil 1 bottle AK DAILY PRN PRN 01/17/19 Omeprazole 20 mg PO DAILY 01/17/19 Potassium Chloride [K-Dur] 20 meq PO BID 01/17/19 Senna [Senokot] 1 tab PO BID 01/17/19 Sucralfate [Carafate] 1 gm PO 4X/DAY PRN 01/17/19 Vit A/Vit C/Vit E/Zinc/Copper 1 ea PO BID 01/17/19 [Preservision Areds Tablet] Warfarin [Coumadin] 3 mg PO MOWEFR 01/17/19 Buspirone HCl 7.5 mg PO BID 05/07/19 Ascorbic Acid [Vitamin C] 500 mg PO BIDCM #1 cap 05/09/19 Diltiazem CD [Cardizem CD] 120 mg PO Q12 cap 05/09/19 Ferrous Sulfate 325 mg PO BIDCM #1 tab 05/09/19 Ipratropium [Atrovent Aerosols] 0.5 mg INHALATION 4X/DAY #1 05/09/19 solution Melatonin 1.5 mg PO QHS tab 05/09/19 Prednisone 40 mg PO DAILY #10 tab 05/09/19 Zolpidem Tartrate [Ambien] 5 mg PO QHS PRN PRN #7 tab 05/09/19 Surgical History: Surgical History (Last Reviewed 05/07/19 @ 13:34 by Yoselin Junior DO) History of cholecystectomy Z90.49 History of total hysterectomy Z90.710 tailbone surgery Surgical History: - - Hysterectomy, cholecystectomy, tailbone surgery. Psychiatric History: Anxiety, Depression [employer] WORK[employer] History: No pertinent VACU[employer] WORKER history Lives: [facility] Smoking Status: Former smoker Tobacco Use: Cigarettes Alcohol: None Drugs: None - *Family History Maternal Family History: Family History (Last Reviewed 05/07/19 @ 13:35 by Yoselin Junior DO) Sister Heart disease History Items: - - Patient notes a maternal history of dementia and stroke. Paternal Family History: Family History (Last Reviewed 05/07/19 @ 13:35 by Yoselin Junior DO) Sister Heart disease History Items: - - Patient denies any marketed paternal family history including heart disease, diabetes, cancer. Sibling Family History: Family History (Last Reviewed 05/07/19 @ 13:35 by Yoselin Junior DO) Sister Heart disease History Items: - - Patient notes a sibling specifically her sister with Parkinson's disease and heart disease as well as a brother with Parkinson's disease, asthma and history of blood clots. Review of Systems Constitutional: Denies: Chills, Fever, Weight Change Eyes: Denies: Blurred vision, Double vision HEENT: Denies: Head Aches, Sinus Congestion, Sinus Drainage Cardiovascular: Denies: Chest Pain, Palpitations Respiratory: Reports: Shortness of Breath Gastrointestinal: Denies: Abdominal Pain, Nausea, Vomiting Genitourinary: Denies: Dysuria Musculoskeletal: Denies: Joint Pain, Joint Tenderness Skin: Denies: Rash, Wounds Neurological: Denies: Numbness, Tingling, Focal weakness Psychiatric: Denies: Anxiety, Depression, Homicidal Ideations, Suicidal Ideations Hematologic/ Lymphatic: Reports: Hx of blood clot Objective: The patient's most recent lab work, culture data and imaging studies have all been personally reviewed. Respiratory viral panel was negative. - Physical Exam Vitals/I&O's: Vital Signs Temp Pulse Resp BP Pulse Ox 98.1 F 82 18 108/64 94 05/09/19 03:46 05/09/19 07:05 05/09/19 07:05 05/09/19 03:46 05/09/19 07:00 Oxygen Flow Rate (L/min) 2 Oxygen Delivery Method Nasal Cannula Weight: 186 lb 8.177 oz Body Mass Index (BMI) 30.4 Intake and Output for Last 24 Hours 05/07/19 05/08/19 05/09/19 23:59 23:59 23:59 Intake Total 607.75 / 857.75 1038.16 / 1038.16 120 / 120 Output Total 2250 / 2750 2425 / 2425 300 / 300 Balance -1642.25 / -1892.25 -1386.84 / -1386.84 -180 / -180 General: Alert, Cooperative, No apparent distress, - - Sitting in bedside recliner. HEENT: Atraumatic, PERRLA, Normocephalic Oral: No Gingival or Mucosal Lesions/ Ulcerations Neck: Supple, No Nodes, Trachea Midline Lungs: No rhonchi, No wheeze, No rales, Diminished Cardiovascular: Normal S1, Normal S2, Irregular Rate Abdomen: Bowel Sounds Present, Soft, Non Tender Extremities: No clubbing, No cyanosis, Edema Skin: No breakdown Musculoskeletal: No Tenderness to Palpation of Joints or Extremities Lymphatic: No Cervical, Supraclavicular, or Inguinal Adenopathy Neurological: Cranial nerves II-XII grossly intact, Neuro grossly intact Psych/Mental Status: Normal Affect, Appropriate Microbiology Past 72 Hours Labs (Last 48 Hours) 05/07/19 05/07/19 05/07/19 06:00 09:15 09:15 WBC 11.6 H RBC 4.01 L Hgb 10.2 L Hct 34.6 L MCV 86.3 MCH 25.4 L MCHC 29.5 L RDW Std Deviation 49.4 H RDW Coeff of Laura 15.6 H Plt Count 268 MPV 11.9 Immature Gran % (Auto) 0.800 Neut % (Auto) 81.3 H Lymph % (Auto) 10.3 L Childress % (Auto) 5.6 Eos % (Auto) 1.5 Baso % (Auto) 0.5 Absolute Neuts (auto) 9.4 H Absolute Lymphs (auto) 1.19 Nucleated RBC % 0 PT INR Specimen Type Sample Site pH Bicarbonate Actual POC Total CO2 Base Excess O2 Saturation ABG pCO2 ABG pO2 Mj Test O2 Delivery Device Liter Flow Blood Gas Notified Whom Blood Gas Notified Time Sodium 141 Potassium 3.8 Chloride 102 Carbon Dioxide 36.0 H Anion Gap 3 L BUN 16 Creatinine 0.67 Estim Creat Clear Calc 47.27 Est GFR (MDRD) Af Amer 110 Est GFR (MDRD) Non-Af 91 BUN/Creatinine Ratio 23.8 H Glucose 122 H Calcium 9.1 Phosphorus Magnesium Iron 31 L TIBC 371 Iron Saturation 8.4 L Ferritin 33 Total Bilirubin Direct Bilirubin AST ALT Alkaline Phosphatase Troponin I < 0.015 B-Natriuretic Peptide Total Protein Albumin Globulin Albumin/Globulin Ratio Triglycerides Cholesterol LDL Cholesterol VLDL Cholesterol HDL Cholesterol TSH 3.06 05/07/19 05/07/19 05/07/19 09:15 09:15 09:15 WBC RBC Hgb Hct MCV MCH MCHC RDW Std Deviation RDW Coeff of Laura Plt Count MPV Immature Gran % (Auto) Neut % (Auto) Lymph % (Auto) Childress % (Auto) Eos % (Auto) Baso % (Auto) Absolute Neuts (auto) Absolute Lymphs (auto) Nucleated RBC % PT INR Specimen Type Sample Site pH Bicarbonate Actual POC Total CO2 Base Excess O2 Saturation ABG pCO2 ABG pO2 Mj Test O2 Delivery Device Liter Flow Blood Gas Notified Whom Blood Gas Notified Time Sodium Potassium Chloride Carbon Dioxide Anion Gap BUN Creatinine Estim Creat Clear Calc Est GFR (MDRD) Af Amer Est GFR (MDRD) Non-Af BUN/Creatinine Ratio Glucose Calcium Phosphorus Magnesium 2.5 Iron TIBC Iron Saturation Ferritin Total Bilirubin 1.10 H Direct Bilirubin 0.24 AST 17 ALT 19 Alkaline Phosphatase 133 H Troponin I B-Natriuretic Peptide 468.2 H Total Protein 7.8 Albumin 3.5 Globulin 4.3 H Albumin/Globulin Ratio Triglycerides Cholesterol LDL Cholesterol VLDL Cholesterol HDL Cholesterol TSH 05/07/19 05/07/19 05/07/19 09:15 14:00 14:06 WBC RBC Hgb Hct MCV MCH MCHC RDW Std Deviation RDW Coeff of Laura Plt Count MPV Immature Gran % (Auto) Neut % (Auto) Lymph % (Auto) Childress % (Auto) Eos % (Auto) Baso % (Auto) Absolute Neuts (auto) Absolute Lymphs (auto) Nucleated RBC % PT 25.8 H INR 2.4 Specimen Type ART Sample Site L Radial pH 7.49 H Bicarbonate Actual 34.6 H POC Total CO2 36 Base Excess 11 H O2 Saturation 97 ABG pCO2 45.7 H ABG pO2 89 Mj Test POS O2 Delivery Device Nasal Can Liter Flow 2.0 Blood Gas Notified Whom [facility] Blood Gas Notified Time 1400 Sodium Potassium Chloride Carbon Dioxide Anion Gap BUN Creatinine Estim Creat Clear Calc Est GFR (MDRD) Af Amer Est GFR (MDRD) Non-Af BUN/Creatinine Ratio Glucose Calcium Phosphorus Magnesium Iron TIBC Iron Saturation Ferritin Total Bilirubin Direct Bilirubin AST ALT Alkaline Phosphatase Troponin I < 0.015 B-Natriuretic Peptide Total Protein Albumin Globulin Albumin/Globulin Ratio Triglycerides Cholesterol LDL Cholesterol VLDL Cholesterol HDL Cholesterol TSH 05/07/19 05/07/19 05/08/19 16:30 20:20 06:20 WBC 13.1 H RBC 3.65 L Hgb 9.2 L Hct 30.3 L MCV 83.0 MCH 25.2 L MCHC 30.4 L RDW Std Deviation 47.9 H RDW Coeff of Laura 15.8 H Plt Count 228 MPV 12.0 Immature Gran % (Auto) Neut % (Auto) Lymph % (Auto) Childress % (Auto) Eos % (Auto) Baso % (Auto) Absolute Neuts (auto) Absolute Lymphs (auto) Nucleated RBC % PT INR Specimen Type Sample Site pH Bicarbonate Actual POC Total CO2 Base Excess O2 Saturation ABG pCO2 ABG pO2 Mj Test O2 Delivery Device Liter Flow Blood Gas Notified Whom Blood Gas Notified Time Sodium Potassium Chloride Carbon Dioxide Anion Gap BUN Creatinine Estim Creat Clear Calc Est GFR (MDRD) Af Amer Est GFR (MDRD) Non-Af BUN/Creatinine Ratio Glucose Calcium Phosphorus Magnesium Iron TIBC Iron Saturation Ferritin Total Bilirubin Direct Bilirubin AST ALT Alkaline Phosphatase Troponin I < 0.015 < 0.015 B-Natriuretic Peptide Total Protein Albumin Globulin Albumin/Globulin Ratio Triglycerides Cholesterol LDL Cholesterol VLDL Cholesterol HDL Cholesterol TSH 05/08/19 05/09/19 05/09/19 06:20 06:10 06:10 WBC RBC Hgb Hct MCV MCH MCHC RDW Std Deviation RDW Coeff of Laura Plt Count MPV Immature Gran % (Auto) Neut % (Auto) Lymph % (Auto) Childress % (Auto) Eos % (Auto) Baso % (Auto) Absolute Neuts (auto) Absolute Lymphs (auto) Nucleated RBC % PT 28.7 H INR 2.7 Specimen Type Sample Site pH Bicarbonate Actual POC Total CO2 Base Excess O2 Saturation ABG pCO2 ABG pO2 Mj Test O2 Delivery Device Liter Flow Blood Gas Notified Whom Blood Gas Notified Time Sodium 139 141 Potassium 4.1 4.3 Chloride 102 102 Carbon Dioxide 34.0 H 35.0 H Anion Gap 3 L 4 L BUN 23 H 36 H Creatinine 0.66 0.78 Estim Creat Clear Calc 47.27 47.27 Est GFR (MDRD) Af Amer 113 92 Est GFR (MDRD) Non-Af 93 76 BUN/Creatinine Ratio 35.1 H 46.1 H Glucose 138 H 131 H Calcium 8.9 8.8 Phosphorus 3.2 Magnesium 2.3 2.7 H Iron TIBC Iron Saturation Ferritin Total Bilirubin 1.20 H Direct Bilirubin AST 14 L ALT 14 Alkaline Phosphatase 116 Troponin I B-Natriuretic Peptide Total Protein 7.1 Albumin 3.1 L Globulin 4.0 Albumin/Globulin Ratio 0.8 L Triglycerides 48 Cholesterol 221 H LDL Cholesterol 157 H VLDL Cholesterol 10 HDL Cholesterol 54 TSH Microbiology 05/08/19 17:50 Stool Stool Occult Blood (ROMI) - Final 05/07/19 13:42 Mucosa - Nasopharyngeal Respiratory Panel (PCR) - Final Clinical Impression(s) from Imaging Studies Chest X-Ray 05/07/19 09:20 IMPRESSION: Mild degree of vascular congestion and CHF with bibasilar atelectasis. Electronically Signed: Nathen Dickinson, at 10:10 EDT , Service support , Current Medications Acetaminophen (Tylenol) 650 mg PO Q6H PRN PRN PRN Reason: Mild Pain (scale 0-3)/T>100.7 Last Admin: 05/08/19 16:08 Dose: 650 mg Documented by: [facility]orbic [facility]) [facility] Last Admin: 05/08/19 07:56 Dose: 500 mg Documented by: Atenolol (Tenormin (Beta [place])) 50 mg PO BID [facility] Last Admin: 05/08/19 21:48 Dose: 50 mg Documented by: Benzonatate (Tessalon Perle) 100 mg PO 4X/DAY PRN PRN PRN Reason: COUGH Bisacodyl (Dulcolax) 10 mg RECTAL DAILY PRN PRN PRN Reason: Constipation Buspirone HCl (Buspar) 7.5 mg PO BID [facility] Last Admin: 05/08/19 21:47 Dose: 7.5 mg Documented by: Citalopram Hydrobromide (Celexa) 40 mg PO DAILY [facility] Last Admin: 05/08/19 07:57 Dose: 40 mg Documented by: Cyanocobalamin (Vitamin B12) 500 mcg PO DAILYCM [facility] Last Admin: 05/08/19 07:56 Dose: 500 mcg Documented by: Diltiazem HCl (Cardizem Cd) 120 mg PO Q12 [facility] Last Admin: 05/08/19 21:48 Dose: 120 mg Documented by: Ergocalciferol (Vitamin D) 50,000 unit PO TH [facility] Furosemide (Lasix) 40 mg PO BIDLX [facility] Ipratropium [place] (Atrovent) 0.5 mg INHALATION Q4H.RT [facility] Last Admin: 05/09/19 07:19 Dose: 0.5 mg Documented by: Magnesium Hydroxide (Milk Of Magnesia) 30 ml PO DAILY PRN PRN PRN Reason: Constipation Last Admin: 05/08/19 11:35 Dose: 30 ml Documented by: Melatonin (Melatonin) 1.5 mg PO QHS [facility] Last Admin: 05/08/19 21:48 Dose: 1.5 mg Documented by: Methylprednisolone (Solu-Medrol) 40 mg IV Q8 [facility] Last Admin: 05/09/19 05:21 Dose: 40 mg Documented by: Pantoprazole Sodium (Protonix) 20 mg PO BID [facility] Last Admin: 05/08/19 21:48 Dose: 20 mg Documented by: Potassium Chloride (K-Dur) [facility] Last Admin: 05/08/19 16:07 Dose: 20 meq Documented by: Prochlorperazine Edisylate (Compazine Iv) 5 mg IV Q6H PRN PRN PRN Reason: NAUSEA/VOMITING Senna (Senokot) 1 tablet PO BID [facility] Last Admin: 05/08/19 21:48 Dose: 1 tablet Documented by: Sodium Chloride () 10 - 40 ml IV UD PRN PRN Reason: SALINE FLUSH Last Admin: 05/09/19 05:21 Dose: 10 ml Documented by: Sucralfate (Carafate) 1 gm PO 1HR_ACHS PRN PRN Reason: GI UPSET Last Admin: 05/08/19 07:52 Dose: 1 gm Documented by: Warfarin Sodium (Coumadin (Pbkc)) 3 mg PO MoWeFr@1700 [facility] Last Admin: 05/08/19 16:07 Dose: 3 mg Documented by: Warfarin Sodium (Coumadin (Pbkc)) 4 mg PO Kalee@1700 [facility] Last Admin: 05/07/19 16:03 Dose: 4 mg Documented by: Zolpidem Tartrate (Ambien (Generic)) 5 mg PO QHS PRN PRN PRN Reason: INSOMNIA Last Admin: 05/08/19 21:50 Dose: 5 mg Documented by: Assessment/Plan All Active Problems (Last Reviewed 05/07/19 @ 13:34 by Yoselin Junior DO) Acute diastolic (congestive) heart failure (Acute) COPD with acute exacerbation (Acute) Atrial fibrillation with RVR (Acute) Hypokalemia (Resolved) Metabolic alkalosis with respiratory acidosis (Resolved) RECOMMENDATIONS: 1. Continue bronchodilators. 2. Transition from IV steroids to prednisone 40 mg daily x5 days. 3. Perform walking oximetry study prior to consideration for discharge from the hospital. 4. Encourage incentive spirometer use and mobilize patient as tolerated. 5. Outpatient pulmonary follow-up within 2 weeks. IMPRESSIONS: 1. Known baseline severe chronic obstructive pulmonary disease/chronic hypoxemic respiratory failure The patient was previously being followed by Dr. Chavarria at [facility], but is interested in transitioning care here. The patient has a baseline 2 L/min supplemental oxygen requirement. She would best be served by remaining on a triple therapy inhaler regimen with scheduled duo nebs and budesonide, as per previous. Upon follow-up in the pulmonary medicine clinic, we will work to obtain her prior pulmonary records. She appears to be baseline from a respiratory perspective. 2. Concern for underlying sleep apnea The patient endorses symptoms concerning for sleep disordered breathing, including nonrestorative sleep, daytime hypersomnolence and frequent napping. She has never undergone a formal diagnostic polysomnogram in the past. Given her underlying cardiac and pulmonary disease, she would be best served by having any potential sleep apnea treated. On follow-up, we will place orders for a polysomnogram to be completed on an outpatient basis. 3. Atrial fibrillation with rapid ventricular response/decompensated diastolic heart failure Continue current medical management per cardiology recommendations. 4. Personal history of venous thromboembolic disease/hyperlipidemia/GERD/chronic anticoagulation status Complicates care, management, recovery and prognosis. Continue home medications as indicated. This note was generated with [employer] software. It may contain incorrect words, spelling, and punctuation that were not noted in checking the note before signing. Code Visit Inpatient E&M: 12272 Init Hosp L3
[2019-05-09] MEDS: Senna Tablet 1 TABLET PO (10:42)
[2019-05-09] MEDS: Pantoprazole Sodium 20 MG Tablet PO (10:42)
[2019-05-09] MEDS: Atenolol 50 MG Tablet PO (10:42)
[2019-05-09] MEDS: dilTIAZem CD 120 MG Capsule PO (10:43)
[2019-05-09] MEDS: Cyanocobalamin 500 MCG Tablet PO (10:43)
[2019-05-09] MEDS: busPIRone 5 MG Tablet 7.5 MG PO (10:43)
[2019-05-09] MEDS: Ascorbic Acid 500 MG Tablet PO (10:43)
[2019-05-09] MEDS: Furosemide 40 MG Tablet PO (11:04)
--- NOTE | 2019-05-09 15:27 | CASEMGMT ---
Addendum entered by Regla Rosenberg 05/09/19 16:01: SW called [employer] and it would be $9.59 for a trip to [place]. SW let patient know and she said this would be fine. YAO notified RN and elementary secretary. YAO also told Stacy at [place] and that staff will call when she is on her way as she will need help getting inside. Plan: d/c back to [place] at [facility] under intermediate level of care. Patient will take a cab per her request. Regla ANDERSON Original Note: Per physician she is going to discharge patient back to [place] today. YAO let Stacy at [facility] know this information. YAO also spoke with patient letting her know. SW asked if she will need transportation. She said she will as her daughter that usually helps her is on vacation in [place]. YAO told her that we could call [facility] to see if they can come pick her up. She told SW, No no don't do that. She didn't really have an answer as to why. She said she could take a cab. She has her portable O2 with her. Regla ANDERSON
[2019-05-09] MEDS: Citalopram 40 MG TABLET PO (16:02)
--- NOTE | 2019-05-09 17:19 | PCM.TXEXTCAR ---
- Diet 05/07/19 13:10 Diet: Cardiac/Low Cholesterol Is pt able to select menu?: Yes - Routine Orders/Code Status Enema Type: Fleetz Enema Frequency: Daily PRN Suppository Type: Dulcolax 10mg Suppository Frequency: Daily PRN O2 Liters per Minute: 2 O2 Frequency: Continuous Keep PO Greater than or Equal to (%): 90 Routine Lab Work: CBC - lab in 1 week also get a PT/INR in 1 week., BMP - Therapies Physical Therapy: Eval and Treat Occupational Therapy: Eval and Treat - Problem/Diagnosis (1) Acute diastolic (congestive) heart failure Status: Acute Current Visit: Yes (2) Pulmonary hypertension Status: Chronic Current Visit: Yes (3) History of recurrent deep vein thrombosis (DVT) Status: Chronic Current Visit: Yes (4) COPD with acute exacerbation Status: Acute Current Visit: Yes (5) History of pulmonary embolism Status: Chronic Current Visit: Yes (6) History of cardioversion Status: Chronic Comment: January of 2018.....HR not controlled with exertion while in AF on Beta donna and cardizem. Converted to NSR with cardioversion Current Visit: Yes (7) Depression Status: Chronic Current Visit: No (8) Former tobacco use Status: Chronic Current Visit: No (9) Atrial fibrillation with RVR Status: Acute Current Visit: Yes (10) Diastolic dysfunction Status: Chronic Current Visit: No (11) Chronic hypoxemic respiratory failure Status: Chronic Current Visit: No (12) Chronic anticoagulation Status: Chronic Current Visit: No (13) Dyslipidemia Status: Chronic Current Visit: No (14) COPD (chronic obstructive pulmonary disease) Status: Chronic Current Visit: Yes (15) Paroxysmal atrial fibrillation Status: Chronic Current Visit: Yes (16) Iron deficiency anemia Status: Chronic Current Visit: Yes - Allergies/Procedures Done in Hospital Allergies/Adverse Reactions: Allergies amlodipine besylate [From [facility]] Adverse Reaction (Verified 05/07/19 09:14) ANKLE AND LEG EDEMA RESOLVED OFF MED-PER PCP PAPERWORK codeine Adverse Reaction (Verified 05/07/19 09:14) MENTAL STATUS CHANGE lisinopril Adverse Reaction (Verified 05/07/19 09:14) COUGH Procedures: None - Type of Care/Length of Stay Estimated LOS: Convalescent Care Less Than 30 days Type of Care Needed: Skilled Rehab Potential: Good Prognosis: Good - Additional Orders/Day of Discharge H&P will serve as current which was dated: 05/07/19 Day of Discharge: 05/09/19 - Dietary and Speech Recommendations Dietitian Recommendations/Changes: Recommend Low Sodium- Cardiac/Low Cholesterol Diet with 1500ml fluid restriction. - Follow Up Care Primary Care Physician: Tor Lucia MD [Primary Care Provider] -
--- NOTE | 2019-05-09 17:35 | DS.PCM_ITS ---
Discharge Date and Diagnosis - Problem List Patient Problems: Active and Suspected Problems (Last Reviewed 05/07/19 @ 13:34 by Yoselin Junior DO) Acute diastolic (congestive) heart failure (Acute) COPD with acute exacerbation (Acute) Atrial fibrillation with RVR (Acute) Date of Admission: 05/07/19 Date of Discharge: 05/09/19 - Primary Discharge Diagnosis Active and Suspected Problems (Last Reviewed 05/07/19 @ 13:34 by Yoselin Junior DO) Acute on chronic diastolic (congestive) heart failure (Acute) Acute respiratory failure on chronic respiratory failure due to acute exacerbation of COPD and acute diastolic CHF. COPD with acute exacerbation (Acute) Atrial fibrillation with RVR (Acute) - Secondary Discharge Diagnosis Chronic Problems (Last Reviewed 05/07/19 @ 13:34 by Yoselin Junior DO) Pulmonary hypertension (Chronic) History of recurrent deep vein thrombosis (DVT) (Chronic) History of pulmonary embolism (Chronic) History of cardioversion (Chronic) January of 2018.....HR not controlled with exertion while in AF on Beta madison and cardizem. 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 Electronically Signed: Nathen Dickinson, at 10:10 EDT , Service support , Laboratory Results - last 24 hr 05/09/19 05/09/19 06:10 06:10 PT 28.7 H INR 2.7 Sodium 141 Potassium 4.3 Chloride 102 Carbon Dioxide 35.0 H Anion Gap 4 L BUN 36 H Creatinine 0.78 Estim Creat Clear Calc 47.27 Est GFR (MDRD) Af Amer 92 Est GFR (MDRD) Non-Af 76 BUN/Creatinine Ratio 46.1 H Glucose 131 H Calcium 8.8 Magnesium 2.7 H Microbiology 05/08/19 17:50 Stool Stool Occult Blood (ROMI) - Final negative 05/07/19 13:42 Mucosa - Nasopharyngeal Respiratory Panel (PCR) - Final Dr. Jin Cates, DO-pulmonary medicine Operations: None Procedures: None Summary of Care Provided: The patient is a 73 year old F with a past medical history of venous insufficiency, pulmonary hypertension, paroxysmal atrial fibrillation requiring cardioversion in November 2017, chronic respiratory failure with hypoxemia, recurrent DVTs with pulmonary emboli, chronic anticoagulation with warfarin, hypertension, dyslipidemia and tobacco dependence in remission who was [facility] with increasing shortness of breath and racing heart over the preceding 3 days. Patient admitted to palpitations. She denied fevers, chills, sweats. She denied chest pain. She has a history of paroxysmal atrial fibrillation and was admitted to the hospital in November 2017 with A. fib with RVR. Heart rate was controlled at rest with a beta-madison and Cardizem however it was not controlled with exertion. She underwent DC cardioversion and converted to normal sinus rhythm. She was discharged from the hospital on Coumadin, amiodarone 200 mg daily and atenolol 50 mg twice daily. She is no longer on Amiodarone. She was seen by Maico Smalls in the cardiology office on October 17, 2018 and at that time she was not on amiodarone. She had an irregular rhythm with good rate control. She was taking Cardizem CD 120 mg daily and atenolol 50 mg twice daily. She also takes Lasix 40 mg p.o. twice daily. Vital signs at presentation to the emergency room were temperature 99.8, pulse rate 137, blood pressure 133/109, respiratory rate 28 and she was 96% saturated on a 4 L nasal cannula. Normally she is on a 2 L nasal cannula at the care home. White blood cell count was mildly increased at 11.6 with 81% neutrophils. Hemoglobin was 10.2 with a decreasing MCV of 86.3. The hemoglobin was normal prior to November 2017. INR was therapeutic at 2.4. Serum bicarb was elevated at 36 and the BUN was 16 with a creatinine of 0.67. BNP was elevated at 468. Troponin was less than 0.015. Chest x-ray was consistent with acute congestive heart failure. She was given an IV bolus of Cardizem 25 mg in the emergency department and her heart rate improved but then she received a DuoNeb aerosol and the heart rate went back up. She was given 60 mg of p.o. prednisone. She was admitted to a monitored bed on PCU with acute diastolic congestive heart failure secondary to A. fib with RVR, acute on chronic respiratory failure, and acute exacerbation of COPD. She was given another bolus of Cardizem and started on a continuous infusion of Cardizem at 10 mg/hr. IV Lasix was instituted. She received 1 dose of IV digoxin and it was discontinued. Dr. Jaffe was consulted. ATC aerosol treatments were ordered with Kathie. She was started on IV Solu- Medrol. The following morning the HR was better and she was transitioned to PO Cardizem 120 mg BID. A hemoccult stool was negative for blood but, iron studies were consistent with iron deficiency and she was started on an iron supplement and Vitamin C to improve iron absorption. Her roller structural mill in the past has recommended a sleep study but she has never followed through. I explained the process to her and also explained that the pulmonary HTN may be due to untreated sleep apnea and if this is the case and it is not addressed it will continue to get worse and her breathing will continue to decline even though she has quit smoking. Dr. Jin Cates was consulted to participate in management and she was agreeable to having a sleep study and will be following up with Dr. Cates in the office going forward. On 05/09/2019 she was transitioned to oral Lasix. Intravenous steroids were discontinued and she was started on prednisone 40 mg p.o. daily. The heart rate was well controlled at rest and with exertion. She was [facility] on medications previously listed. Would recheck a ferritin again in 4-6 weeks to make sure it is appropriately increasing with iron supplementation. She will follow up with Dr. Cates in the next 2 weeks to arrange a sleep study. she should also follow up in the cardiology office in 1 month. Recheck a CBC, BMP and INR in 1 week. Patient Problems: Active and Suspected Problems (Last Reviewed 05/07/19 @ 13:34 by Yoselin Junior DO) Acute diastolic (congestive) heart failure (Acute) COPD with acute exacerbation (Acute) Atrial fibrillation with RVR (Acute) - Physical Exam Vitals/I&O's: Vital Signs Temp Pulse Resp BP Pulse Ox 98.2 F 89 16 123/75 H 98 05/09/19 16:04 05/09/19 16:04 05/09/19 16:04 05/09/19 16:04 05/09/19 16:04 Oxygen Flow Rate (L/min) 2 Oxygen Delivery Method Nasal Cannula Weight: 186 lb 8.177 oz Body Mass Index (BMI) 30.4 Intake and Output for Last 24 Hours 05/07/19 05/08/19 05/09/19 23:59 23:59 23:59 Intake Total 607.75 / 857.75 1038.16 / 1038.16 120 / 120 Output Total 2250 / 2750 2425 / 2425 300 / 300 Balance -1642.25 / -1892.25 -1386.84 / -1386.84 -180 / -180 General: Alert, Oriented x3, Cooperative, No apparent distress Neck: No Nodes, Trachea Midline Lungs: Clear to auscultation, Diminished - very diminished thoughout with no wheezes, rales or rhonchi. She is not tachypneic today and has no conversational dyspnea or accessory muscle use. Cardiovascular: Regular rate, Normal S1, Normal S2, Irregular Rate, No Gallop Abdomen: Bowel Sounds Present, Soft, Non Tender, Non-Distended Extremities: No edema Neurological: Cranial nerves II-XII grossly intact, Neuro grossly intact Psych/Mental Status: Normal Affect, Appropriate Microbiology Past 72 Hours 05/08/19 17:50 Stool Stool Occult Blood (ROMI) - Final 05/07/19 13:42 Mucosa - Nasopharyngeal Respiratory Panel (PCR) - Final Laboratory Results 05/09/19 06:10: PT 28.7 H, INR 2.7 05/09/19 06:10: Sodium 141, Potassium 4.3, Chloride 102, Carbon Dioxide 35.0 H, Anion Gap 4 L, BUN 36 H, Creatinine 0.78, Estim Creat Clear Calc 47.27, Est GFR (MDRD) Af Amer 92, Est GFR (MDRD) Non-Af 76, BUN/Creatinine Ratio 46.1 H, Glucose 131 H, Calcium 8.8, Magnesium 2.7 H Current Medications Acetaminophen (Tylenol) 650 mg PO Q6H PRN PRN PRN Reason: Mild Pain (scale 0-3)/T>100.7 Last Admin: 05/08/19 16:08 Dose: 650 mg Documented by: Ascorbic Acid (Vitamin C) 500 mg PO DAILYCM [facility] Last Admin: 05/09/19 10:43 Dose: 500 mg Documented by: Atenolol (Tenormin (Beta Madison)) 50 mg PO BID [facility] Last Admin: 05/09/19 10:42 Dose: 50 mg Documented by: Benzonatate (Tessalon Perle) 100 mg PO 4X/DAY PRN PRN PRN Reason: COUGH Bisacodyl (Dulcolax) 10 mg RECTAL DAILY PRN PRN PRN Reason: Constipation Buspirone HCl (Buspar) 7.5 mg PO BID [facility] Last Admin: 05/09/19 10:43 Dose: 7.5 mg Documented by: Citalopram Hydrobromide (Celexa) 40 mg PO DAILY [facility] Last Admin: 05/09/19 16:02 Dose: 40 mg Documented by: Cyanocobalamin (Vitamin B12) 500 mcg PO DAILYCM [facility] Last Admin: 05/09/19 10:43 Dose: 500 mcg Documented by: Diltiazem HCl (Cardizem Cd) 120 mg PO Q12 [facility] Last Admin: 05/09/19 10:43 Dose: 120 mg Documented by: Ergocalciferol (Vitamin D) 50,000 unit PO TH [facility] Last Admin: 05/09/19 10:43 Dose: 50,000 unit Documented by: Furosemide (Lasix) 40 mg PO BIDLX [facility] Last Admin: 05/09/19 11:04 Dose: 40 mg Documented by: Ipratropium [place] (Atrovent) 0.5 mg INHALATION Q4H.RT [facility] Last Admin: 05/09/19 15:02 Dose: 0.5 mg Documented by: Magnesium Hydroxide (Milk Of Magnesia) 30 ml PO DAILY PRN PRN PRN Reason: Constipation Last Admin: 05/08/19 11:35 Dose: 30 ml Documented by: Melatonin (Melatonin) 1.5 mg PO QHS [facility] Last Admin: 05/08/19 21:48 Dose: 1.5 mg Documented by: Methylprednisolone (Solu-Medrol) 40 mg IV Q8 [facility] Last Admin: 05/09/19 16:02 Dose: 40 mg Documented by: Pantoprazole Sodium (Protonix) 20 mg PO BID [facility] Last Admin: 05/09/19 10:42 Dose: 20 mg Documented by: Potassium Chloride (K-Dur) 20 meq PO BIDCM [facility] Last Admin: 05/09/19 16:02 Dose: 20 meq Documented by: Prochlorperazine Edisylate (Compazine Iv) 5 mg IV Q6H PRN PRN PRN Reason: NAUSEA/VOMITING Senna (Senokot) 1 tablet PO BID [facility] Last Admin: 05/09/19 10:42 Dose: 1 tablet Documented by: Sodium Chloride () 10 - 40 ml IV UD PRN PRN Reason: SALINE FLUSH Last Admin: 05/09/19 16:03 Dose: 10 ml Documented by: Sucralfate (Carafate) 1 gm PO 1HR_ACHS PRN PRN Reason: GI UPSET Last Admin: 05/08/19 07:52 Dose: 1 gm Documented by: Warfarin Sodium (Coumadin (Pbkc)) 3 mg PO [id number]@1700 [facility] Last Admin: 05/08/19 16:07 Dose: 3 mg Documented by: Warfarin Sodium (Coumadin (Pbkc)) 4 mg PO [id number]@1700 [facility] Last Admin: 05/09/19 16:03 Dose: 4 mg Documented by: Zolpidem Tartrate (Ambien (Generic)) 5 mg PO QHS PRN PRN PRN Reason: INSOMNIA Last Admin: 05/08/19 21:50 Dose: 5 mg Documented by: Home Medications: Medications to take at Discharge Ergocalciferol [Vitamin D] 50,000 unit PO TH 07/19/15 Warfarin Sodium 4 mg PO SUTUTHSA 03/08/18 Furosemide 40 mg PO BID #60 tab 03/11/18 Ascorbic Acid [Vitamin C] 500 mg PO DAILY 05/23/18 Citalopram Hydrobromide [Citalopram HBr] 40 mg PO DAILY 05/23/18 Cyanocobalamin (Vitamin B-12) [Vitamin B-12] 500 mcg PO DAILY 05/23/18 Ipratropium/Albuterol Sulfate [Duoneb] 3 ml INHALATION 4X/DAY 08/10/18 Acetaminophen [Tylenol Tablet] 650 mg PO Q6H PRN PRN tab 08/12/18 Atenolol [Tenormin (beta madison)] 50 mg PO BID 09/08/18 Benzonatate [Tessalon Perle] 100 mg PO 4X/DAY PRN PRN #12 cap 09/11/18 albuterol sulfate HFA 90 mcg/actuation aerosol inhaler 2 puff INHALATION Q4H PRN PRN g 09/17/18 Bisacodyl [Dulcolax] 10 mg RECTAL DAILY PRN PRN 01/17/19 Budesonide 2 ml IH BID 01/17/19 Magnesium Hydroxide [Milk Of Magnesia] 30 ml PO DAILY PRN PRN 01/17/[address] DAILY PRN PRN 01/17/19 Omeprazole 20 mg PO DAILY 01/17/19 Potassium Chloride [K-Dur] 20 meq PO BID 01/17/19 Senna [Senokot] 1 tab PO BID 01/17/19 Sucralfate [Carafate] 1 gm PO 4X/DAY PRN 01/17/19 Vit A/Vit C/Vit E/Zinc/Copper [Preservision Areds Tablet] 1 ea PO BID 01/17/19 Warfarin [Coumadin] 3 mg PO MOWEFR 01/17/19 Buspirone HCl 7.5 mg PO BID 05/07/19 Ascorbic Acid [Vitamin C] 500 mg PO BIDCM #1 cap 05/09/19 Diltiazem CD [Cardizem CD] 120 mg PO Q12 cap 05/09/19 Ferrous Sulfate 325 mg PO BIDCM #1 tab 05/09/19 Ipratropium [Atrovent Aerosols] 0.5 mg INHALATION 4X/DAY #1 solution 05/09/19 Melatonin 1.5 mg PO QHS tab 05/09/19 Prednisone 40 mg PO DAILY #10 tablet 05/09/19 Zolpidem Tartrate [Ambien] 5 mg PO QHS PRN PRN #7 tab 05/09/19 Following Prescrptions Were Given to Patient: Zolpidem Tartrate [Ambien] 5 mg PO QHS PRN PRN #7 tab PRN Reason: Insomnia Prescription Printed Ferrous Sulfate 325 mg PO BIDCM #1 tab Prednisone 40 mg PO DAILY #10 tablet Ascorbic Acid [Vitamin C] 500 mg PO BIDCM #1 cap Primary Care Physician: Tor Lucia MD [Primary Care Provider] - Disposition: Nursing [facility] facility [facility] Minutes spent on discharge:: 40 Patient Condition:: Good Medical Necessity - Tobacco Use Smoking Status: Former smoker Tobacco Use: Cigarettes Meaningful Use Info Meaningful Use Diagnoses (Choose all that apply): CHF - CHF CANDIE/ARB ordered at discharge?: No Reason CANDIE/ARB not ordered?: Allergy Documented LVEF (%): 60 Code Visit Inpatient E&M: 29205 Disch Hosp
== END 2019-05-09 19:11 | disposition intermediate care facility (04) | DRG 291 ==
LOC: ED 10:58 → PCU 11:09
PROVIDERS: Admitting Provider Internal Medicine; Emergency Provider Emergency Medicine; Family Provider Family Medicine; PCP Family Medicine; Referring Provider Internal Medicine; Visit Provider Internal Medicine
DX: I11.0 Hypertensive heart disease with heart failure (principal); J96.21 Acute and chronic respiratory failure with hypoxia; J44.1 Chronic obstructive pulmonary disease with (acute) exacerbation; I48.0 Paroxysmal atrial fibrillation; I50.33 Acute on chronic diastolic (congestive) heart failure; I27.20 Pulmonary hypertension, unspecified; E78.5 Hyperlipidemia, unspecified; F17.211 Nicotine dependence, cigarettes, in remission; Z86.711 Personal history of pulmonary embolism; D50.9 Iron deficiency anemia, unspecified; Z79.01 Long term (current) use of anticoagulants; Z86.718 Personal history of other venous thrombosis and embolism; F32.9 Major depressive disorder, single episode, unspecified; Z99.81 Dependence on supplemental oxygen
CPT/HCPCS: 36415; 36600; 71045; 80048; 80053; 80061; 80076; 82274; 82728; 82803; 83540; 83550; 83735; 83880; 84100; 84443; 84484; 85025; 85027; 85610; 87633; 93005; 94640; 97162; 97166; 97530; 97535; 99285; J7030; A4216; J1940

== ENCOUNTER 2019-07-12 19:33 | Inpatient (IN) | payer MEDICARE, MEDICAID, SELFPAY ==
[2019-05-27 08:44] VITALS: BMI 29.4
[2019-07-12 19:36] VITALS: BP 95/62; PULSE 163; RESP 32; TEMP 36.6; O2SAT 96; BMI 30.1
[2019-07-12 19:45] VITALS: O2SAT 97
--- NOTE | 2019-07-12 20:00 | RAD_ITS ---
STUDY: X-RAY CHEST REASON FOR EXAM: Female, 73 years old. Shortness of breath TECHNIQUE: Frontal view of the chest COMPARISON: 05/07/2019 FINDINGS: There are mild congestive changes noted. The lungs are otherwise clear. There are no pleural effusions. There is no pneumothorax. The heart is normal in size. The visualized osseous structures are within normal limits. RAD/Chest 1 View (Portable) IMPRESSION: Mild pulmonary vascular congestion. Electronically Signed: Evgeny Spencer, at 20:23 EST Tel , Service support ,
--- NOTE | 2019-07-12 20:00 | EKG12_ITS ---
Test Reason : PALPS Blood Pressure : / mmHG Vent. Rate : 158 BPM Atrial Rate : 127 BPM P-R Int : 000 ms QRS Dur : 066 ms QT Int : 290 ms P-R-T Axes : 000 070 088 degrees QTc Int : 470 ms Atrial fibrillation with rapid ventricular response Nonspecific ST and T wave abnormality Abnormal ECG Confirmed by MADISON BHAT, URSULA ([id number]), map editor BANG URBINA ([id number]) on 07/24/2019 1:00:15 PM Referred By: RENU Confirmed By:URSULA WALLACE MD
[2019-07-12] MEDS: dilTIAZem 25 MG/5 ML Vial 15 MG IV BOLUS (20:06)
[2019-07-12 20:12] VITALS: BP 116/71; PULSE 115; RESP 30; O2SAT 96
--- NOTE | 2019-07-12 20:14 | ED.DCSUM_ITS ---
History of Present Illness Chief Complaint: Shortness of Breath Informant: Patient Onset: Yesterday Context: Gradual Onset Timing: Continuous Narrative: Patient is a 73-year-old female with history of hypertension, atrial fibrillation and CHF presenting with worsening shortness of breath and elevated heart rate. [facility] she been receiving prednisone as well as scheduled nebulized treatments as well as her own inhaler for shortness of breath. Patient wears 2-3 L at baseline. Today she was found to be 88 to 90% on her baseline O2. Patient does have associated chest pressure . She states 2 days ago she had multiple episodes of vomiting and ever since then she is been feeling unwell. She does have associated cough that is productive of yellow sputum. She denies any fevers. Patient questionably had low blood pressures at the [facility] as well. She thinks she had a chest x-ray done today but is not sure what it showed. Patient has had swelling of her lower extremities but feels that this is her baseline. Patient currently denies any abdominal pain or nausea. She denies any other complaints at this time. Prior similar symptoms: No Past Medical History - Allergies and Home Meds Allergies/Adverse Reactions: Allergies amlodipine besylate [From [facility]] Adverse Reaction (Verified 07/12/19 19:39) ANKLE AND LEG EDEMA RESOLVED OFF MED-PER PCP PAPERWORK codeine Adverse Reaction (Verified 07/12/19 19:39) MENTAL STATUS CHANGE lisinopril Adverse Reaction (Verified 07/12/19 19:39) COUGH Past Medical History: - - Atrial fibrillation, COPD, chronic hypoxic respiratory failure, pulmonary hypertension, history of PE, hypertension and hyperlipidemia Surgical History: - - Hysterectomy, cholecystectomy, tailbone surgery. Lives: [facility] Smoking Status: Former smoker - Family History Maternal Family History: Family History (Last Reviewed 05/07/19 @ 13:35 by Yoselin Junior DO) Sister Heart disease Family History: Reports: - - Patient notes a maternal history of dementia and stroke. Paternal Family History: Family History (Last Reviewed 05/07/19 @ 13:35 by Yoselin Junior DO) Sister Heart disease Family History: Reports: - - Patient denies any marketed paternal family history including heart disease, diabetes, cancer. Sibling Family History: Family History (Last Reviewed 05/07/19 @ 13:35 by Yoselin Junior DO) Sister Heart disease Family History: Reports: - - Patient notes a sibling specifically her sister with Parkinson's disease and heart disease as well as a brother with Parkinson's disease, asthma and history of blood clots. Review of Systems General: Reports: Chills, Malaise. Denies: Fever, Sweats Eyes: Denies: Visual changes - bilaterally, Diplopia ENT: Denies: Rhinorrhea, Sore throat Cardiovascular: Reports: Chest pain, Palpitations, Heart racing Respiratory: Reports: Dyspnea, Cough, Sputum. Denies: Dyspnea on exertion Gastrointestinal: Denies: Abdominal pain, Nausea, Vomiting, Diarrhea, Melena, Hematochezia Genitourinary: Denies: Dysuria, Hematuria, Frequency Musculoskeletal: Reports: Swelling. Denies: Back pain, Extremity Pain Skin: Denies: Rash, Wounds Neurological: Denies: Headache, Weakness, Numbness Physical Exam Vital Signs/Narrative: Vital Signs Temp Pulse Resp BP Pulse Ox 07/12/19 20:12 115 H 30 H 116/71 96 07/12/19 19:36 97.9 F 163 H 32 H 95/62 96 Inital Vital Signs reviewed: Yes - Significant tachycardia and mild hypotension General: Well nourished, Well developed, Acute Distress, - - Diaphoretic and pale Head: Normocephalic, Atraumatic Eyes: Perrl, EOMI ENT: Moist mucous membranes, No rhinorrhea Neck: Supple, Nontender, No JVD Cardiovascular: No murmurs, Irregular, Tachycardia Respiratory: Chest nontender, Wheezing, Diminished, Decreased Air Movement, - - Tachypnea. Negative for: Retractions Abdomen: Soft, Nontender, Nondistended, Normal bowel sounds Back: Nontender, Normal Inspection Extremities: Nontender, Edema - 2+ bilateral pitting edema up to the mid tibia Skin: Normal color, No rash Neurological: Alert, Oriented x3, Cranial nerves II-XII grossly intact, Normal Strength, Normal Sensation Psychological: Normal affect, Normal Mood Diagnostic/Tx/Re-eval Chest X-Ray - ED: 1 View, Read by ED Physician, Read by Radiologist, CHF Clinical Impression(s) from Imaging Studies Chest X-Ray 07/12/19 20:00 IMPRESSION: Mild pulmonary vascular congestion. Electronically Signed: Evgeny Spencer, at 20:23 EST Tel , Service support , Laboratory Data 07/12/19 07/12/19 07/12/19 19:45 19:45 19:45 WBC 18.6 H RBC 4.06 L Hgb 11.3 L Hct 36.0 L MCV 88.7 MCH 27.8 MCHC 31.4 L RDW Std Deviation 60.8 H RDW Coeff of Laura 18.7 H Plt Count 227 MPV 12.1 H Immature Gran % (Auto) 0.600 Neut % (Auto) 96.1 H Lymph % (Auto) 2.6 L [place] % (Auto) 0.6 Eos % (Auto) 0.0 Baso % (Auto) 0.1 Absolute Neuts (auto) 17.8 H Absolute Lymphs (auto) 0.49 L Nucleated RBC % 0 Differential Comment SCANNED PT INR Sodium 140 Potassium 3.5 Chloride 101 Carbon Dioxide 29.0 Anion Gap 10 BUN 11 Creatinine 1.05 H Estim Creat Clear Calc 45.02 Est GFR (MDRD) Af Amer 66 Est GFR (MDRD) Non-Af 54 L BUN/Creatinine Ratio 10.5 Glucose 253 H Lactic Acid 4.9 H* Calcium 9.3 Troponin I < 0.015 B-Natriuretic Peptide 07/12/19 07/12/19 07/12/19 19:45 19:45 21:30 WBC RBC Hgb Hct MCV MCH MCHC RDW Std Deviation RDW Coeff of Laura Plt Count MPV Immature Gran % (Auto) Neut % (Auto) Lymph % (Auto) [place] % (Auto) Eos % (Auto) Baso % (Auto) Absolute Neuts (auto) Absolute Lymphs (auto) Nucleated RBC % Differential Comment PT 21.8 H INR 1.9 Sodium Potassium Chloride Carbon Dioxide Anion Gap BUN Creatinine Estim Creat Clear Calc Est GFR (MDRD) Af Amer Est GFR (MDRD) Non-Af BUN/Creatinine Ratio Glucose Lactic Acid 5.0 H* Calcium Troponin I B-Natriuretic Peptide 343.8 H - Rhythm Strip Rhythm Strip: A-fib Rate: 155 Ectopy: None - EKG Initial EKG Interpretation: Atrial Fibrillation, - - Atrial fibrillation with RVR at a rate of 158 QRS 66 QTc [address] segments - Medical Decision Making Patient arrives and appears to be in respiratory distress. She is significant increased work of breathing, is pale and diaphoretic. She is in atrial fibrillation with RVR. Patient is borderline hypotensive. She is given a 15 mg bolus of Cardizem with significant improvement of her symptoms, blood pressure and heart rate. Patient history is mixed for possible pneumonia, COPD exacerbation or acute exacerbation of CHF. She did receive a dose of prednisone today. White blood cell count is elevated at 18. Chest x-ray does not show an acute infiltrate but does show pulmonary vascular congestion more suggestive of a CHF exacerbation. A lactate was obtained which was elevated at 4.9. Her proBNP is also elevated at 343. Patient has had elevated proBNP is in the past. She is initially given IV Lasix for concern of fluid overload. Lactate is repeated which is still elevated at 5.0. It is possible that she has an infection as well. Is also possible of elevated lactate is from ischemia associated with her A. fib RVR. Flu swab was negative. She is then given a liter of IV fluid because she is meeting criteria for septic shock. Blood cultures were added on. She will be started on broad-spectrum antibiotics, Zosyn. Patient is admitted to the ICU. She is agreeable this plan. ED Disposition - Plan for ED Patient: Disposition: Acute Care [facility] Diagnosis: Acute exacerbation of CHF (congestive heart failure), Atrial fibrillation with RVR, Leukocytosis, Lactic acidosis
--- NOTE | 2019-07-12 20:15 | ED.RN ---
PATIENT REQUESTED FOR ME TO CALL HER DAUGHTER AND I DID.
[2019-07-12 20:19] LABS: Absolute Lymphocyte Count 0.49 X10^3/uL (0.83-4.51); Absolute Neutrophil Count 17.8 X10^3/uL (2.0-7.7); Basophil# 0.02 X10^3/uL; Basophil% 0.1 % (0-1); Hemoglobin 11.3 g/dL (12.0-15.0); Lymphocyte # 0.49 X10^3/ul (4.0); Lymphocyte % 2.6 % (19-41); Mean Corp Hgb Conc 31.4 g/dL (32-36); Mean Corpuscular Hgb 27.8 pg (27.0-32.0); Mean Corpuscular Volume 88.7 fL (81-99); Mean Platelet Vol. 12.1 fl (6.2-12.0); Monocyte# 0.11 X10^3/uL; Monocyte% 0.6 % (0-10); NRBC Flagged by Analyzer 0 % (0-5); Neutrophil # 17.82 X10^3/uL (2.7-7.7); Neutrophil % 96.1 % (47-70); POSITIVE DIFFERENTIAL YES; POSITIVE MORPHOLOGY YES; Platelet Count 227 K/mm3 (150-450); RBC Distribution Width CV 18.7 % (11.6-14.6); RBC Distribution Width SD 60.8 fl (35.1-43.9); Red Blood Count 4.06 M/mm3 (4.2-5.4); White Blood Count 18.6 K/mm3 (4.4-11.0)
[2019-07-12 20:25] LABS: International Normalized Ratio 1.9; Prothrombin Time (Protime)PT. 21.8 SECONDS (11.7-14.9)
[2019-07-12 20:31] LABS: Anion Gap 10 (5-15); BUN 11 mg/dL (7-18); BUN/Creat Ratio 10.5 RATIO (10-20); Calcium,Total 9.3 mg/dL (8.5-10.1); Chloride 101 mmol/L (98-107); Creatinine, Serum 1.05 mg/dL (0.55-1.02); EST Glomerular Filtration Rate 54 mL/min (>60); Est Glom Filt Rate - Afr Amer 66 mL/min (>60); Estimated Creatinine Clearance 45.02 ml/min; Glucose 253 mg/dL (74-106); Lactic Acid 4.9 mmol/L (0.4-1.9); Potassium 3.5 mmol/L (3.5-5.1); Sodium Level 140 mmol/L (136-145)
[2019-07-12 20:44] LABS: Differential Comment SCANNED
[2019-07-12 20:45] LABS: Differential Indicated SCAN CRITERIA MET
[2019-07-12 20:53] LABS: BNP,B-Type NATRIURETIC PEPTIDE 343.8 pg/mL (0-100)
[2019-07-12] MEDS: Furosemide 40 MG/4 ML Vial IV (21:36)
--- NOTE | 2019-07-12 21:46 | PCM.HP.STD ---
Problem List (1) Chronic hypoxemic respiratory failure Status: Chronic (2) Depression Status: Chronic (3) Pulmonary hypertension Status: Chronic (4) History of recurrent deep vein thrombosis (DVT) Status: Chronic (5) History of pulmonary embolism Status: Chronic (6) Paroxysmal atrial fibrillation Status: Chronic Comment: DCCV on 01/31/2018; (7) HTN (hypertension) Status: Chronic Qualifiers: Hypertension type: essential hypertension Qualified Code(s): I10 - Essential (primary) hypertension (8) Iron deficiency anemia Status: Chronic (9) Chronic diastolic CHF (congestive heart failure) Status: Chronic (10) Dyslipidemia Status: Chronic (11) COPD (chronic obstructive pulmonary disease) Status: Chronic Qualifiers: COPD type: unspecified COPD Qualified Code(s): J44.9 - Chronic obstructive pulmonary disease, unspecified History of Present Illness Date of Admission: 07/12/19 Chief Complaint: Shortness of breath. The patient is a 73 year old F patient with past medical history as mentioned above presented to the emergency room from the skilled nursing because of shortness of breath. Her illness started 4 days ago on [place] with shortness of breath, initially was with moderate exertion, has been progressing and today, she has been getting short of breath even at rest, no relief with rest, associated with cough with small amount of yellow sputum as well as chest tightness. Patient mentioned that today, nursing staff at the skilled nursing increase her oxygen to 3 L, she is usually on 2 L chronically. She denied chest pain, dizziness, palpitation, syncope or presyncope. She denied fever or chills. She denied sore throat, sinus or nasal congestion. She does have a history of chronic diastolic CHF and she has been on Lasix and she stated that she takes her Lasix twice a day as prescribed. She denied weight gain or increasing leg edema. She denied orthopnea or PND. At the skilled nursing, she was given Zithromax and prednisone today for presumed bronchitis. In the emergency department, patient was in A. fib with RVR, heart rate was up to 160s, blood pressure was stable, pulse ox was 96% on 3 L. She was dyspneic and tachypneic, afebrile. Her routine blood work was remarkable for significant leukocytosis with neutrophilia,, blood glucose of 253. EKG revealed A. fib with RVR, heart rate is in the 158, no acute changes. Troponin was negative. BNP was 343 but it has been chronically elevated, it was 468 on April,. Her lactic acid is 4.9 which was repeated and came back again high at 5. Chest x-ray revealed minimal bilateral basilar vascular congestion, no obvious infiltrate or consolidation. Patient was given 1 bolus dose of Cardizem in the ED and heart rate came down to around 120s. Also, she received 1 dose of IV Lasix. Now, she is receiving IV fluid bolus. He is being admitted for septic shock due to probable healthcare associated pneumonia, suspected acute on chronic diastolic CHF, acute on chronic hypoxic respiratory failure and A. fib with RVR. Past Medical History Past Medical History (Chronic Problems): Chronic Problems (Last Updated 07/12/19 @ 21:39 by Ailyn Ramirez MD) Diastolic dysfunction (Chronic) Chronic hypoxemic respiratory failure (Chronic) Chronic anticoagulation (Chronic) Former tobacco use (Chronic) Depression (Chronic) Pulmonary hypertension (Chronic) History of recurrent deep vein thrombosis (DVT) (Chronic) History of pulmonary embolism (Chronic) History of cardioversion (Chronic) January of 2018.....HR not controlled with exertion while in AF on Beta donna and cardizem. Converted to NSR with cardioversion Paroxysmal atrial fibrillation (Chronic) DCCV on 01/31/2018; HTN (hypertension) (Chronic) Iron deficiency anemia (Chronic) Chronic diastolic CHF (congestive heart failure) (Chronic) Dyslipidemia (Chronic) COPD (chronic obstructive pulmonary disease) (Chronic) Medical History: Medical History (Last Updated 07/12/19 @ 21:39 by Ailyn Ramirez MD) Dyslipidemia (Chronic) E78.5 COPD (chronic obstructive pulmonary disease) (Chronic) J44.9 Atrial fibrillation I48.91 Heart failure with preserved ejection fraction I50.30 Group 2. EF 65% 18 Essential hypertension I10 History of DVT (deep vein thrombosis) Z86.718 History of pulmonary embolus (PE) Z86.711 Pulmonary HTN I27.20 Venous insufficiency I87.2 Allergies amlodipine besylate [From [facility]] Adverse Reaction (Verified 07/12/19 19:39) ANKLE AND LEG EDEMA RESOLVED OFF MED-PER PCP PAPERWORK codeine Adverse Reaction (Verified 07/12/19 19:39) MENTAL STATUS CHANGE lisinopril Adverse Reaction (Verified 07/12/19 19:39) COUGH Home Medications: Ambulatory Orders Medication Instructions Recorded Ergocalciferol [Vitamin D] 50,000 unit PO TH 07/19/15 Warfarin Sodium 4 mg PO FR 03/08/18 Furosemide 40 mg PO BID #60 tab 03/11/18 Citalopram Hydrobromide 40 mg PO DAILY 05/23/18 [Citalopram HBr] Ipratropium/Albuterol Sulfate 3 ml INHALATION 4X/DAY 08/10/18 [Duoneb] Atenolol [Tenormin (beta donna)] 50 mg PO BID 09/08/18 albuterol sulfate 90 mcg/actuation 2 puff INHALATION Q4H PRN PRN g 09/17/18 aerosol inhaler Budesonide 2 ml IH BID 01/17/19 Omeprazole 20 mg PO DAILY 01/17/19 Senna [Senokot] 1 tab PO BID 01/17/19 Sucralfate [Carafate] 1 gm PO 4X/DAY PRN 01/17/19 Vit A/Vit C/Vit E/Zinc/Copper 1 ea PO BID 01/17/19 [Preservision Areds Tablet] Warfarin [Coumadin] 3 mg PO SUMOTUWETHSA 01/17/19 Buspirone HCl 7.5 mg PO QHS 05/07/19 Ferrous Sulfate 325 mg PO BIDCM #1 tab 05/09/19 Melatonin 1.5 mg PO QHS tab 05/09/19 Prednisone 40 mg PO DAILY #10 tab 05/09/19 Zolpidem Tartrate [Ambien] 5 mg PO QHS PRN PRN #7 tab 05/09/19 Acetaminophen [Tylenol Tablet] 650 mg PO Q6H PRN PRN 07/12/19 Azithromycin [Zithromax Z-Cabrera] 250 mg PO UD 07/12/19 Cyanocobalamin (Vitamin B-12) 500 mcg PO DAILY@0800 07/12/19 [Vitamin B-12] Diltiazem CD [Cardizem CD] 120 mg PO BID 07/12/19 Polyethylene Glycol 3350 17 gm PO DAILY 07/12/19 Potassium Chloride 20 meq PO BID 07/12/19 Surgical History: Surgical History (Last Reviewed 07/12/19 @ 21:53 by Ailyn Ramirez MD) History of cholecystectomy Z90.49 History of total hysterectomy Z90.710 tailbone surgery Surgical History: cholecystectomy, hysterectomy, - - tailbone surgery. 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 Paternal Family History: Family History (Last Reviewed 05/07/19 @ 13:35 by Yoselin Junior DO) Sister Heart disease History Items: - - Patient denies any marketed paternal family history including heart disease, diabetes, cancer. Sibling Family History: Family History (Last Reviewed 05/07/19 @ 13:35 by Yoselin Junior DO) Sister Heart disease History Items: - - Patient notes a sibling specifically her sister with Parkinson's disease and heart disease as well as a brother with Parkinson's disease, asthma and history of blood clots. Review of Systems Constitutional: Denies: Anorexia, Chills, Fever, Malaise, Weakness Eyes: Denies: Blurred vision, Double vision, Drainage, Redness HEENT: Denies: Difficulty Hearing, Ear Pain, Eye Pain, Nasal Congestion, Sore Throat Cardiovascular: Reports: Chest Tightness, Palpitations. Denies: Chest Pain, Chest Pressure, Heaviness, Light Headedness, Orthopnea, Paroxysmal Noc. Dyspnea Respiratory: Reports: Cough, Pleuritic Pain, Shortness of breath at rest, Shortness of breath upon exertion, Sputum production. Denies: Wheezing Gastrointestinal: Denies: Abdominal Pain, Constipation, Diarrhea, Nausea, Vomiting Genitourinary: Denies: Dysuria, Frequency, Hematuria Musculoskeletal: Denies: Arm Pain, Back Pain, Foot Pain Skin: Denies: Dryness, Rash Neurological: Denies: Balance problems, Blurred vision, Double vision, Change in Speech, Slurred speech, Confusion, Headaches, Incoordination Psychiatric: Reports: Anxiety, Depression Endocrine: Denies: Change in Body Habitus, Polydipsia, Polyuria VTE Information - Inpt Only VTE Present on Admission: No VTE Mechan Device Prophylaxis: None VTE Pharm Prophylaxis ordered?: No - Physical Exam Vitals/I&O's: Vital Signs Temp Pulse Resp BP Pulse Ox 97.9 F 115 H 30 H 116/71 96 07/12/19 19:36 07/12/19 20:12 07/12/19 20:12 07/12/19 20:12 07/12/19 20:12 Oxygen Flow Rate (L/min) 3 Oxygen Delivery Method Nasal Cannula Weight: 192 lb 7.417 oz Body Mass Index (BMI) 30.1 General: Alert, Oriented x3, Cooperative, - - Moderately short of breath. HEENT: Atraumatic, PERRLA, EOMI, Normocephalic Oral: Moist Mucosa, No Gingival or Mucosal Lesions/ Ulcerations Neck: Supple, No JVD, Negative Carotid Bruits, Trachea Midline, Thyroid Normal Size and Texture Lungs: No wheeze, Diminished, Rales, Rhonchi, Short of Breath, Tachypneic, - - Decreased breath sounds bilateral, bilateral rhonchi, Rales. Cardiovascular: Normal S1, Normal S2, PMI Normal, Irregular Rate, Tachycardic Abdomen: Bowel Sounds Present, Soft, Non Tender, Non-Distended, No Hepato-splenomegaly, Obese Extremities: No clubbing, No cyanosis, Edema - + Edema. Skin: No rashes, No breakdown Lymphatic: No Cervical, Supraclavicular, or Inguinal Adenopathy Neurological: Cranial nerves II-XII grossly intact, Motor Exam 5/5 strength throughout Psych/Mental Status: Normal Affect, Appropriate, Alert and oriented to time, place, person, mood and affect Microbiology Past 72 Hours 07/12/19 20:10 Mucosa - Nasopharyngeal Influenza Types A,B Direct FA (ROMI) - Final Laboratory Results 07/12/19 19:45: WBC 18.6 H, RBC 4.06 L, Hgb 11.3 L, Hct 36.0 L, MCV 88.7, MCH 27.8, MCHC 31.4 L, RDW Std Deviation 60.8 H, RDW Coeff of Laura 18.7 H, Plt Count 227, MPV 12.1 H, Immature Gran % (Auto) 0.600, Neut % (Auto) 96.1 H, Lymph % (Auto) 2.6 L, [place] % (Auto) 0.6, Eos % (Auto) 0.0, Baso % (Auto) 0.1, Absolute Neuts (auto) 17.8 H, Absolute Lymphs (auto) 0.49 L, Nucleated RBC % 0, Differential Comment SCANNED 07/12/19 19:45: Sodium 140, Potassium 3.5, Chloride 101, Carbon Dioxide 29.0, Anion Gap 10, BUN 11, Creatinine 1.05 H, Estim Creat Clear Calc 45.02, Est GFR (MDRD) Af Amer 66, Est GFR (MDRD) Non-Af 54 L, BUN/Creatinine Ratio 10.5, Glucose 253 H, Calcium 9.3, Troponin I < 0.015 07/12/19 19:45: Lactic Acid 4.9 H* 07/12/19 19:45: B-Natriuretic Peptide 343.8 H 07/12/19 19:45: PT 21.8 H, INR 1.9 Clinical Impression(s) from Imaging Studies Chest X-Ray 07/12/19 20:00 IMPRESSION: Mild pulmonary vascular congestion. Electronically Signed: Evgeny Swiftbrennon, at 20:23 EST Tel , Service support , Current Medications Azithromycin 500 mg/ Dextrose 255 mls @ 250 mls/hr IV X1 ONE Stop: 07/12/19 22:14 Assessment/Plan This is a 73 years old female patient presented to the emergency room from the skilled nursing because of shortness of breath with productive cough with minimal clear sputum, found to have A. fib with RVR, significant leukocytosis, lactic acidosis and her chest x-ray showed minimal pulmonary vascular congestion without strong evidence of pneumonia and she is being admitted for septic shock by criteria probably due to healthcare associated pneumonia, suspected acute on chronic diastolic CHF complicated by acute on chronic hypoxic respiratory failure, also found to have A. fib with RVR. #1 Septic shock/probable healthcare associated pneumonia: No strong evidence of pneumonia and also no strong evidence of acute CHF. It is very hard to differentiate based on history, physical and work-up. Patient does have leukocytosis but she received 1 dose of prednisone today, has been afebrile,, has been tachycardic and tachypneic and lactic acid was 4.9 and was repeated and came back at 5. Her BNP is chronically elevated. Chest x-ray revealed mild bilateral pulmonary vascular congestion. Patient had 2D echocardiogram on August 2018 that showed ejection fraction 60%, RVSP of 35, mildly enlarged left atrium and moderately enlarged right atrium. Plan: Admit to ICU, 3 L of IV fluid bolus, repeat lactic acid in 3 hours, start IV Zosyn, input output chart, urinalysis, urine culture, sputum culture, blood culture, critical care consult, repeat CBC and BMP tomorrow morning, PT OT evaluation and treatment. #2 acute on chronic hypoxic respiratory failure: Secondary to probable pneumonia and questionable acute on chronic CHF. Plan to treat underlying pneumonia with IV fluids and IV antibiotics, patient may need to be treated for CHF later. At this time, pulse ox is 96% on 3 L. At home, she has been on 2 L. #3 Suspected acute on chronic diastolic CHF: Again, it is very hard to differentiate IF her symptoms are due to CHF or pneumonia. She does have chronic diastolic CHF, ejection fraction was 60% on fibrocavitary 19. Her BMP is chronic elevated. EKG revealed A. fib with RVR which may precipitate acute CHF. Chest x-ray findings is given with mild pulmonary vascular congestion. Plan to treat the probable pneumonia first as above and later, patient may need to be diuresed. #4 A. fib with RVR: EKG reviewed, patient received 1 dose of IV Cardizem bolus in the ED. Heart rate is down to 120s, blood pressure remained stable. Plan to start IV Cardizem drip, hold p.o. Cardizem, continue Coumadin. #5 COPD/chronic respiratory failure: On home oxygen at 2 L, now she is requiring up to 3 L and she is dyspneic and tachypneic. Plan for DuoNeb every 6 hours, albuterol PRN, IV diuresis, incentive spirometer. #6 paroxysmal atrial fibrillation: With A. fib with RVR. She will be started on IV Cardizem drip, continue Coumadin for anticoagulation. #7 chronic anemia: Probably due to anemia of chronic disease, normocytic anemia. Hemoglobin stable at baseline. #8 history of DVT/PEs: Continue Coumadin, INR is 1.9. Recheck INR tomorrow morning. #9 hypertension: Blood pressure stable, continue atenolol, hold Cardizem. #10 depression/anxiety: Continue Ambien, buspirone and melatonin. #11 CODE STATUS: DNR CCA. I discussed the CODE STATUS with the patient herself and her daughter. I explained to the patient different types of CODE STATUS including full code, DNR CC and DNR CCA. Patient clearly mentioned that she does not want CPR, chest compressions, intubation or mechanical ventilation. Patient's daughter was at the bedside and she confirmed her mother's wishes. Time spent on discussion about CODE STATUS 13 minutes. #12 DVT prophylaxis: INR is 1.9, continue Coumadin. This note was generated with [employer] dictation software. It may contain incorrect words, spelling, and punctuation that were not noted in checking the note before signing. Code Visit Inpatient E&M: 83981 Init Hosp L3 Procedures: 57755 Advncd Care Plan 30 Min
[2019-07-12 22:23] VITALS: BP 95/61; PULSE 101; RESP 21; TEMP 36.8; O2SAT 97
[2019-07-12 22:35] VITALS: BP 88/63; PULSE 112; RESP 21; TEMP 36.8; O2SAT 97
[2019-07-12 22:45] VITALS: BP 93/62; PULSE 105; RESP 22; TEMP 36.8; O2SAT 97
[2019-07-12] MEDS: 0.9% Normal Saline 1,000 ML 999 ML IV ×2 (22:47→23:44)
--- NOTE | 2019-07-12 23:01 | ED.RN ---
PT ECF NOTIFIED OF ADMISSION.
--- NOTE | 2019-07-12 23:25 | ED.RN ---
PT ANTIBIOTICS INITIATED PRIOR TO OBTAINING URINE SAMPLE.
[2019-07-13] VITALS (31 sets, daily range): BP systolic 92–124; BP diastolic 53–74; PULSE 78–150; RESP 15–32; TEMP 36.2–37.1; O2SAT 94–100; BMI 29.9
[2019-07-13 00:07] LABS: Reflex Lactate? Y
--- NOTE | 2019-07-13 00:30 | NURSING ---
Patient's home portable oxygen placed in ICU2 bottom [facility] drawer.
[2019-07-13 00:36] LABS: Mucous, Urine 0 SEEN /hpf (<or=2+); Red Blood Cells-Urine 0 SEEN /hpf (0-5); Squamous Epithelial Cells - UA 0 SEEN /hpf (5-10); White Blood Cells 0 SEEN /hpf (0-5)
[2019-07-13 00:47] LABS: Color, Urine Yellow (Yellow); Glucose, Dipstick Normal (Normal); Ketone-Dipstick Negative (Negative); Leukocyte Esterase-Dipstick Negative /ul (Negative); Nitrite-Dipstick Negative (Negative); Occult Blood-Urine Negative /ul (Negative); Protein-Dipstick Negative (Negative); Urine Bilirubin Dipstick Negative (Negative); Urine Clarity Clear (Clear); Urine Urobilinogen Normal (Normal)
[2019-07-13] MEDS: Ipratropium/Albuterol Sulfate 3 ML AMPUL.NEB INHALATION ×5 (00:47→22:34)
[2019-07-13] MEDS: MELATONIN 3 MG TABLET 1.5 MG PO (00:48)
[2019-07-13] MEDS: 0.9% Normal Saline 1,000 ML 999 ML IV (00:48)
[2019-07-13] MEDS: busPIRone 5 MG Tablet 7.5 MG PO ×2 (00:49→21:25)
[2019-07-13 00:50] LABS: Lactic Acid 2.9 mmol/L (0.4-1.9)
[2019-07-13 00:55] LABS: Bacteria RARE /hpf (None Seen); Hyaline Cast 0-5 SEEN /lpf (0-5)
[2019-07-13] MEDS: Budesonide Respules 0.5 MG/2 ML AMPUL.NEB. INHALATION ×2 (00:55→19:11)
[2019-07-13] MEDS: Atenolol 50 MG Tablet PO ×2 (00:56→08:26)
[2019-07-13 01:45] LABS: Reflex Lactate? Y
[2019-07-13 02:17] LABS: M R Staph aureus DNA By PCR Negative (Negative); Probe Check PASS; Specimen Processing Control PASS
[2019-07-13] MEDS: 0.9% Saline Lock 10 ML Syringe IV ×4 (05:43→23:46)
[2019-07-13] MEDS: Acetaminophen 325 MG Tablet 650 MG PO ×3 (05:46→21:22)
[2019-07-13 05:56] LABS: Absolute Lymphocyte Count 1.46 X10^3/uL (0.83-4.51); Basophil# 0.02 X10^3/uL; Basophil% 0.1 % (0-1); Eosinophil# 0.01 X10^3/uL; Eosinophils% 0.1 % (0-5); Hematocrit 30.1 % (37-47); Hemoglobin 9.2 g/dL (12.0-15.0); Lymphocyte # 1.46 X10^3/ul (4.0); Lymphocyte % 10.3 % (19-41); Mean Corp Hgb Conc 30.6 g/dL (32-36); Mean Corpuscular Hgb 27.5 pg (27.0-32.0); Mean Corpuscular Volume 89.9 fL (81-99); Monocyte# 0.65 X10^3/uL; Monocyte% 4.6 % (0-10); NRBC Flagged by Analyzer 0 % (0-5); Neutrophil % 84.3 % (47-70); Platelet Count 184 K/mm3 (150-450); RBC Distribution Width CV 18.6 % (11.6-14.6); RBC Distribution Width SD 60.9 fl (35.1-43.9); Red Blood Count 3.35 M/mm3 (4.2-5.4); White Blood Count 14.2 K/mm3 (4.4-11.0)
[2019-07-13 06:04] LABS: International Normalized Ratio 2.4; Prothrombin Time (Protime)PT. 26.1 SECONDS (11.7-14.9)
[2019-07-13 06:12] LABS: Anion Gap 4 (5-15); BUN 10 mg/dL (7-18); BUN/Creat Ratio 17.1 RATIO (10-20); Calcium,Total 7.9 mg/dL (8.5-10.1); Chloride 107 mmol/L (98-107); Creatinine, Serum 0.58 mg/dL (0.55-1.02); EST Glomerular Filtration Rate 107 mL/min (>60); Est Glom Filt Rate - Afr Amer 129 mL/min (>60); Estimated Creatinine Clearance 47.27 ml/min; Glucose 114 mg/dL (74-106); Potassium 3.9 mmol/L (3.5-5.1); Sodium Level 144 mmol/L (136-145)
--- NOTE | 2019-07-13 06:57 | PCM.CON.CC ---
Problem List (1) Diastolic dysfunction Status: Chronic (2) Chronic hypoxemic respiratory failure Status: Chronic (3) Chronic anticoagulation Status: Chronic (4) Pulmonary hypertension Status: Chronic (5) History of recurrent deep vein thrombosis (DVT) Status: Chronic (6) History of pulmonary embolism Status: Chronic (7) History of cardioversion Status: Chronic Comment: January of 2018.....HR not controlled with exertion while in AF on Beta madison and cardizem. Converted to NSR with cardioversion (8) Acute exacerbation of CHF (congestive heart failure) Status: Chronic (9) Atrial fibrillation with RVR Status: Acute (10) COPD (chronic obstructive pulmonary disease) Status: Chronic Qualifiers: COPD type: unspecified COPD Qualified Code(s): J44.9 - Chronic obstructive pulmonary disease, unspecified Reason for Consult Date of Consultation: 07/13/19 Reason for Consultation: Possible sepsis History of Present Illness: The patient is a 73 year old F, with past medical history listed below, who presented to [facility] on 07/12/2019 secondary to worsening shortness of breath and tachycardia. Patient reportedly had been receiving prednisone and nebulized therapy secondary to shortness of breath and perceived COPD exacerbation. Patient is on 2 to 3 L nasal cannula oxygen at baseline and was found to be 88 to 90%. Patient was having an associated chest pressure. Patient states that on she started to have spontaneous nausea and vomiting at approximately midnight. This was associated with a cough productive of yellow sputum, but did not have any fevers. Patient had also reported some sinus congestion. Patient does have lower extremity edema at baseline and denied any abdominal pain or nausea on presentation. In the emergency department, patient did appear to be in respiratory distress and was pale and diaphoretic. EKG showed A. fib with RVR with heart rates in the 160s. Patient was given 15 mg of Cardizem as a bolus with improvement in symptoms. Chest x-ray showed only some increased pulmonary vascular congestion, for which she was given Lasix. Patient was noted to have an elevated lactate and was then treated by the septic shock protocol with fluid boluses. Patient was placed on Zosyn therapy and admitted to the intensive care unit. Since being in the intensive care unit, patient's heart rate is been much improved. Patient feels her respiratory distress is much improved compared to previous. Patient does have a cough that is intermittently productive, but she does not state that this has been as bad since hospitalized. Patient states that she is been admitted to the hospital multiple times for respiratory type complaints. Patient does see Dr. Jaffe at baseline for her A. fib and states that she has had cardioversions previously that were unsuccessful. Patient states she has COPD, but has not performed a pulmonary function test that I can find. Review of systems otherwise negative from a constitutional, HEENT, respiratory, cardiovascular, GI, genitourinary, musculoskeletal, skin, neurologic, psychiatric and hematologic system unless stated above. Past Medical History Past Medical History (Chronic Problems): Chronic Problems (Last Updated 07/12/19 @ 21:39 by Ailyn Ramirez MD) Diastolic dysfunction (Chronic) Chronic hypoxemic respiratory failure (Chronic) Chronic anticoagulation (Chronic) Former tobacco use (Chronic) Depression (Chronic) Pulmonary hypertension (Chronic) History of recurrent deep vein thrombosis (DVT) (Chronic) History of pulmonary embolism (Chronic) History of cardioversion (Chronic) January of 2018.....HR not controlled with exertion while in AF on Beta madison and cardizem. Converted to NSR with cardioversion Paroxysmal atrial fibrillation (Chronic) [facility] on 01/31/2018; HTN (hypertension) (Chronic) Iron deficiency anemia (Chronic) Chronic diastolic CHF (congestive heart failure) (Chronic) Acute exacerbation of CHF (congestive heart failure) (Chronic) Dyslipidemia (Chronic) COPD (chronic obstructive pulmonary disease) (Chronic) Medical History: Medical History (Last Updated 07/12/19 @ 21:39 by Ailyn Ramirez MD) Dyslipidemia (Chronic) E78.5 COPD (chronic obstructive pulmonary disease) (Chronic) J44.9 Atrial fibrillation I48.91 Heart failure with preserved ejection fraction I50.30 Group 2. EF 65% 12/05/17 Essential hypertension I10 History of DVT (deep vein thrombosis) Z86.718 History of pulmonary embolus (PE) Z86.711 Pulmonary HTN I27.20 Venous insufficiency I87.2 Allergies amlodipine besylate [From [facility]] Adverse Reaction (Verified 07/12/19 19:39) ANKLE AND LEG EDEMA RESOLVED OFF MED-PER PCP PAPERWORK codeine Adverse Reaction (Verified 07/12/19 19:39) MENTAL STATUS CHANGE lisinopril Adverse Reaction (Verified 07/12/19 19:39) COUGH Home Medications: Ambulatory Orders Medication Instructions Recorded Ergocalciferol [Vitamin D] 50,000 unit PO TH 07/19/15 Warfarin Sodium 4 mg PO FR 03/08/18 Furosemide 40 mg PO BID #60 tab 03/11/18 Citalopram Hydrobromide 40 mg PO DAILY 05/23/18 [Citalopram HBr] Ipratropium/Albuterol Sulfate 3 ml INHALATION 4X/DAY 08/10/18 [Duoneb] Atenolol [Tenormin (beta madison)] 50 mg PO BID 09/08/18 albuterol sulfate 90 mcg/actuation 2 puff INHALATION Q4H PRN PRN g 09/17/18 aerosol inhaler Budesonide 2 ml IH BID 01/17/19 Omeprazole 20 mg PO DAILY 01/17/19 Senna [Senokot] 1 tab PO BID 01/17/19 Sucralfate [Carafate] 1 gm PO 4X/DAY PRN 01/17/19 Vit A/Vit C/Vit E/Zinc/Copper 1 ea PO BID 01/17/19 [Preservision Areds Tablet] Warfarin [Coumadin] 3 mg PO SUMOTUWETHSA 01/17/19 Buspirone HCl 7.5 mg PO QHS 05/07/19 Ferrous Sulfate 325 mg PO BIDCM #1 tab 05/09/19 Melatonin 1.5 mg PO QHS tab 05/09/19 Prednisone 40 mg PO DAILY #10 tab 05/09/19 Zolpidem Tartrate [Ambien] 5 mg PO QHS PRN PRN #7 tab 05/09/19 Acetaminophen [Tylenol Tablet] 650 mg PO Q6H PRN PRN 07/12/19 Azithromycin [Zithromax Z-Cabrera] 250 mg PO UD 07/12/19 Cyanocobalamin (Vitamin B-12) 500 mcg PO DAILY@0800 07/12/19 [Vitamin B-12] Diltiazem CD [Cardizem CD] 120 mg PO BID 07/12/19 Polyethylene Glycol 3350 17 gm PO DAILY 07/12/19 Potassium Chloride 20 meq PO BID 07/12/19 Surgical History: Surgical History (Last Reviewed 07/12/19 @ 21:53 by Ailyn Ramirez MD) History of cholecystectomy Z90.49 History of total hysterectomy Z90.710 tailbone surgery Surgical History: cholecystectomy, hysterectomy, - - tailbone surgery. Psychiatric History: Anxiety, Depression [employer] History: No pertinent [employer] history Lives: [facility] Smoking Status: Former smoker Alcohol: None Drugs: None - *Family History Maternal Family History: Family History (Last Reviewed 05/07/19 @ 13:35 by Yoselin Junior DO) Sister Heart disease History Items: - - Patient notes a maternal history of dementia and stroke. Paternal Family History: Family History (Last Reviewed 05/07/19 @ 13:35 by Yoselin Junior DO) Sister Heart disease History Items: - - Patient denies any marketed paternal family history including heart disease, diabetes, cancer. Sibling Family History: Family History (Last Reviewed 05/07/19 @ 13:35 by Yoselin Junior DO) Sister Heart disease History Items: - - Patient notes a sibling specifically her sister with Parkinson's disease and heart disease as well as a brother with Parkinson's disease, asthma and history of blood clots. Review of Systems Comment: See HPI Patient Problems: Active and Suspected Problems (Last Updated 07/12/19 @ 21:39 by Ailyn Ramirez MD) Atrial fibrillation with RVR (Acute) Leukocytosis (Acute) Lactic acidosis (Acute) Objective: Chest x-ray was personally reviewed and shows some congestion with cephalization. Echo (09/08/2018): EF 60% with no evaluation of diastolic function. Biatrial enlargement with no ASD and elevated pulmonary artery pressures of 35 mmHg. There is focal aortic valve calcification noted. No pulmonary function tests are available for review. - Physical Exam Vitals/I&O's: Vital Signs Temp Pulse Resp BP Pulse Ox 36.6 C 85 18 102/74 97 07/13/19 06:00 07/13/19 06:00 07/13/19 06:00 07/13/19 06:00 07/13/19 06:00 Oxygen Flow Rate (L/min) 2 Oxygen Delivery Method Nasal Cannula Weight: 86.6 kg Body Mass Index (BMI) 29.9 Intake and Output for Last 24 Hours 07/11/19 07/12/19 07/13/19 23:59 23:59 23:59 Intake Total 50 / 1050 3154.5 / 3154.5 Output Total 400 / 400 Balance 50 / 1050 2754.5 / 2754.5 General: Alert, Oriented x3, Cooperative, No apparent distress, Well developed, Well nourished, - - Obese. No conversational dyspnea. HEENT: Atraumatic, PERRLA, EOMI, Normocephalic, - - No scleral icterus or injection noted Oral: Moist Mucosa, No Gingival or Mucosal Lesions/ Ulcerations Neck: Supple, No JVD, No Nodes, Trachea Midline Lungs: No rhonchi, No wheeze, No rales, Diminished, - - Symmetric expansion. No dullness to percussion. Cardiovascular: Normal S1, Normal S2, Irregular Rate, No rub noted, No Gallop Abdomen: Bowel Sounds Present, Soft, Non Tender, Non-Distended, Obese Extremities: No clubbing, No cyanosis, Edema - Trace lower extremity Skin: No rashes, No breakdown Musculoskeletal: No Tenderness to Palpation of Joints or Extremities Lymphatic: No Cervical, Supraclavicular, or Inguinal Adenopathy Neurological: Cranial nerves II-XII grossly intact, Neuro grossly intact, Motor Exam 5/5 strength throughout Psych/Mental Status: Alert and oriented to time, place, person, mood and affect Microbiology Past 72 Hours 07/12/19 20:10 Mucosa - Nasopharyngeal Influenza Types A,B Direct FA (ROMI) - Final Laboratory Results 07/12/19 19:45: WBC 18.6 H, RBC 4.06 L, Hgb 11.3 L, Hct 36.0 L, MCV 88.7, MCH 27.8, MCHC 31.4 L, RDW Std Deviation 60.8 H, RDW Coeff of Laura 18.7 H, Plt Count 227, MPV 12.1 H, Immature Gran % (Auto) 0.600, Neut % (Auto) 96.1 H, Lymph % (Auto) 2.6 L, [place] % (Auto) 0.6, Eos % (Auto) 0.0, Baso % (Auto) 0.1, Absolute Neuts (auto) 17.8 H, Absolute Lymphs (auto) 0.49 L, Nucleated RBC % 0, Differential Comment SCANNED 07/12/19 19:45: Sodium 140, Potassium 3.5, Chloride 101, Carbon Dioxide 29.0, Anion Gap 10, BUN 11, Creatinine 1.05 H, Estim Creat Clear Calc 45.02, Est GFR (MDRD) Af Amer 66, Est GFR (MDRD) Non-Af 54 L, BUN/Creatinine Ratio 10.5, Glucose 253 H, Calcium 9.3, Troponin I < 0.015 07/12/19 19:45: Lactic Acid 4.9 H* 07/12/19 19:45: B-Natriuretic Peptide 343.8 H 07/12/19 19:45: PT 21.8 H, INR 1.9 07/12/19 21:30: Lactic Acid 5.0 H* 07/13/19 00:05: Lactic Acid 2.9 H* 07/13/19 00:05: MRSA (PCR) Negative 07/13/19 00:05: Troponin I < 0.015 07/13/19 00:20: Urine Color Yellow, Urine Clarity Clear, Urine pH 6.0, Ur Specific [place] 1.010, Urine Protein Negative, Urine Glucose (UA) Normal, Urine Ketones Negative, Urine Occult Blood Negative, Urine Nitrite Negative, Urine Bilirubin Negative, Urine Urobilinogen Normal, Ur Leukocyte Esterase Negative, Urine RBC 0 SEEN, Urine WBC 0 SEEN, Ur Squamous Epith Cells 0 SEEN, Urine Bacteria RARE, Hyaline Casts 0-5 SEEN, Urine Mucus 0 SEEN 07/13/19 03:00: Troponin I < 0.015 07/13/19 05:40: Sodium 144, Potassium 3.9, Chloride 107, Carbon Dioxide 33.0 H, Anion Gap 4 L, BUN 10, Creatinine 0.58, Estim Creat Clear Calc 47.27, Est GFR (MDRD) Af Amer 129, Est GFR (MDRD) Non-Af 107, BUN/Creatinine Ratio 17.1, Glucose 114 H, Calcium 7.9 L 07/13/19 05:40: WBC 14.2 H, RBC 3.35 L, Hgb 9.2 L, Hct 30.1 L, MCV 89.9, MCH 27.5, MCHC 30.6 L, RDW Std Deviation 60.9 H, RDW Coeff of Laura 18.6 H, Plt Count 184, MPV 12.0, Immature Gran % (Auto) 0.600, Neut % (Auto) 84.3 H, Lymph % (Auto) 10.3 L, [place] % (Auto) 4.6, Eos % (Auto) 0.1, Baso % (Auto) 0.1, Absolute Neuts (auto) 12.0 H, Absolute Lymphs (auto) 1.46, Nucleated RBC % 0 07/13/19 05:40: PT Pending, INR Pending 07/13/19 05:40: Troponin I < 0.015 Current Medications Acetaminophen (Tylenol) 650 mg PO Q6H PRN PRN PRN Reason: Pain Score 1-10/Temp > 100.7 F Last Admin: 07/13/19 05:46 Dose: 650 mg Documented by: Albuterol Sulfate (Ventolin Aerosols) 2.5 mg INHALATION Q2H PRN PRN PRN Reason: Shortness of breath, wheezing Albuterol/Ipratropium (Duoneb) 3 ml INHALATION Q6H.RT [facility] Last Admin: 07/13/19 06:54 Dose: 3 ml Documented by: Atenolol (Tenormin (Beta [place])) 50 mg PO BID [facility] Last Admin: 07/13/19 00:56 Dose: 50 mg Documented by: Budesonide (Pulmicort Aerosol) 0.5 mg INHALATION BID [facility] Last Admin: 07/13/19 00:55 Dose: 0.5 mg Documented by: Buspirone HCl (Buspar) 7.5 mg PO QHS [facility] Last Admin: 07/13/19 00:49 Dose: 7.5 mg Documented by: Citalopram Hydrobromide (Celexa) 40 mg PO DAILY [facility] Ferrous Sulfate (Ferrous Sulfate) 325 mg PO BIDCM [facility] Sodium Chloride () 250 mls @ 15 mls/hr IV .[id number] PRN PRN Reason: Saline Flush Last Infusion: 07/13/19 05:40 Dose: 0 mls/hr Documented by: Sodium Chloride () 250 mls @ 15 mls/hr IV .[id number] PRN PRN Reason: Additional IVPB Infusion Diltiazem HCl 125 mg/ Dextrose 125 mls @ 5 mls/hr IV .Q25H [facility]; Protocol Last Admin: 07/13/19 03:34 Dose: Not Given Documented by: Piperacillin Sod/Tazobactam (Sod 3.375 gm/ Sodium Chloride) 50 mls @ 12.5 mls/hr IV Q8 [facility] Last Admin: 07/13/19 05:39 Dose: 12.5 mls/hr Documented by: Sodium Chloride () 250 mls @ 15 mls/hr IV .[id number] PRN PRN Reason: Saline Flush Sodium Chloride () 250 mls @ 15 mls/hr IV .[id number] PRN PRN Reason: Additional IVPB Infusion Melatonin (Melatonin) 1.5 mg PO QHS [facility] Last Admin: 07/13/19 00:48 Dose: 1.5 mg Documented by: Ondansetron HCl (Zofran) 4 mg IV Q8H PRN PRN PRN Reason: NAUSEA/VOMITING Pantoprazole Sodium (Protonix) 20 mg PO DAILY [facility] Polyethylene Glycol (Miralax) 17 gm PO DAILY [facility] Potassium Chloride (K-Dur) 20 meq PO BIDCM [facility] Last Admin: 07/13/19 00:49 Dose: 20 meq Documented by: Senna/Docusate Sodium (Senokot-S, Caterina-Colace) 2 tablet PO BID PRN PRN PRN Reason: Constipation Sodium Chloride () 10 - 40 ml IV UD PRN PRN Reason: SALINE FLUSH Last Admin: 07/13/19 05:43 Dose: 40 ml Documented by: Sucralfate (Carafate) 1 gm PO 1HR_ACHS PRN PRN Reason: GI UPSET Warfarin Sodium (Coumadin (Pbkc)) 3 mg PO SuMoTuWeThSa@1700 [facility] Warfarin Sodium (Coumadin (Pbkc)) 4 mg PO Fr@1700 [facility] Zolpidem Tartrate (Ambien (Generic)) 5 mg PO QHS PRN PRN PRN Reason: INSOMNIA Clinical Impression(s) from Imaging Studies Chest X-Ray 07/12/19 20:00 IMPRESSION: Mild pulmonary vascular congestion. Electronically Signed: Evgeny Spencer, at 20:23 EST Tel , Service support , Assessment/Plan Active and Suspected Problems (Last Updated 07/12/19 @ 21:39 by Ailyn Ramirez MD) Atrial fibrillation with RVR (Acute) Leukocytosis (Acute) Lactic acidosis (Acute) RECOMMENDATIONS: 1. Empiric antibiotics for 48 hours until culture negative 2. Wean prednisone therapy 3. Aggressive rate control 4. Walking oximetry prior to discharge 5. Obtain respiratory viral panel 6. Okay to leave the intensive care unit IMPRESSIONS: 1. Acute on chronic hypoxic respiratory insufficiency secondary to A. fib with RVR and probable acute diastolic CHF Given age and comorbidities, diastolic dysfunction would be assumed. This could have led to pulmonary congestion secondary to A. fib with RVR. Patient did receive Cardizem with good response to therapy. Inciting incident is unclear at this time. Would obtain a viral panel for evaluation of RSV and other viral pathogens. Patient does not have significant wheezing on exam, so steroids can likely be weaned rapidly. Patient may have an element of aspiration given the reported emesis with productive cough afterwards. Reasonable to continue with antibiotics until cultures negative. Patient currently hemodynamically stable enough to leave the intensive care unit from my perspective. 2. Reported COPD/chronic hypoxia respiratory failure Unclear if this is true. Patient does have a smoking history, but will need outpatient complete pulmonary function test for quantification and clarification of lung function. Reasonable to use as needed bronchodilators as patient does not have significant wheezing on exam and this may exacerbate A. fib with RVR. Patient does have some elevated pulmonary artery pressures, but this could be multifactorial. 3. Chronic anemia/history of DVT PE/depression/anxiety/hypertension Complicates care, management, recovery and prognosis. Okay to continue with baseline medications. Patient should be monitored closely with daily INRs given concomitant antibiotic therapy. No bleeding complications at this time. Code Visit Inpatient E&M: 47280 In Hosp L3
--- NOTE | 2019-07-13 07:47 | PCM.PN.HOSP ---
Patient Problems: Active and Suspected Problems (Last Updated 07/12/19 @ 21:39 by Ailyn Ramirez MD) Atrial fibrillation with RVR (Acute) Leukocytosis (Acute) Lactic acidosis (Acute) Reason for Visit: Follow-up on septic shock/pneumonia/acute on chronic hypoxic respiratory failure/CHF Subjective: Patient was seen and examined. She feels much better. Denies any fever or chills or nausea or vomiting. No other acute events overnight. She is on 2 L of oxygen. Usually on 2 L of oxygen at home. Objective: Physical exam: General: Alert, Oriented x3, Cooperative, in mild respiratory distress, on 2 L of oxygen HEENT: Atraumatic, PERRLA, EOMI, Normocephalic Oral: Moist Mucosa, No Gingival or Mucosal Lesions/ Ulcerations Neck: Supple, No JVD, Negative Carotid Bruits, Trachea Midline, Thyroid Normal Size and Texture Lungs: No wheeze, Diminished, Rales, Rhonchi, Short of Breath, Tachypneic, - - Decreased breath sounds bilateral, bilateral rhonchi, Rales. Cardiovascular: Normal S1, Normal S2, PMI Normal, Irregular Rate, Tachycardic Abdomen: Bowel Sounds Present, Soft, Non Tender, Non-Distended, No Hepato-splenomegaly, Obese Extremities: No clubbing, No cyanosis, Edema - + Edema. Skin: No rashes, No breakdown Lymphatic: No Cervical, Supraclavicular, or Inguinal Adenopathy Neurological: Cranial nerves II-XII grossly intact, Motor Exam 5/5 strength throughout Psych/Mental Status: Normal Affect, Appropriate, Alert and oriented to time, place, person, mood and affect Vitals/I&O's: Vital Signs Temp Pulse Resp BP Pulse Ox 97.9 F 85 18 102/74 97 07/13/19 06:00 07/13/19 06:00 07/13/19 06:00 07/13/19 06:00 07/13/19 06:00 Oxygen Flow Rate (L/min) 2 Oxygen Delivery Method Nasal Cannula Weight: 86.6 kg Body Mass Index (BMI) 29.9 Intake and Output for Last 24 Hours 07/11/19 07/12/19 07/13/19 23:59 23:59 23:59 Intake Total 50 / 1050 3154.5 / 3154.5 Output Total 400 / 400 Balance 50 / 1050 2754.5 / 2754.5 Microbiology Past 72 Hours 07/12/19 20:10 Mucosa - Nasopharyngeal Influenza Types A,B Direct FA (ROMI) - Final Laboratory Results 07/12/19 19:45: WBC 18.6 H, RBC 4.06 L, Hgb 11.3 L, Hct 36.0 L, MCV 88.7, MCH 27.8, MCHC 31.4 L, RDW Std Deviation 60.8 H, RDW Coeff of Laura 18.7 H, Plt Count 227, MPV 12.1 H, Immature Gran % (Auto) 0.600, Neut % (Auto) 96.1 H, Lymph % (Auto) 2.6 L, Crowley % (Auto) 0.6, Eos % (Auto) 0.0, Baso % (Auto) 0.1, Absolute Neuts (auto) 17.8 H, Absolute Lymphs (auto) 0.49 L, Nucleated RBC % 0, Differential Comment SCANNED 07/12/19 19:45: Sodium 140, Potassium 3.5, Chloride 101, Carbon Dioxide 29.0, Anion Gap 10, BUN 11, Creatinine 1.05 H, Estim Creat Clear Calc 45.02, Est GFR (MDRD) Af Amer 66, Est GFR (MDRD) Non-Af 54 L, BUN/Creatinine Ratio 10.5, Glucose 253 H, Calcium 9.3, Troponin I < 0.015 07/12/19 19:45: Lactic Acid 4.9 H* 07/12/19 19:45: B-Natriuretic Peptide 343.8 H 07/12/19 19:45: PT 21.8 H, INR 1.9 07/12/19 21:30: Lactic Acid 5.0 H* 07/13/19 00:05: Lactic Acid 2.9 H* 07/13/19 00:05: MRSA (PCR) Negative 07/13/19 00:05: Troponin I < 0.015 07/13/19 00:20: Urine Color Yellow, Urine Clarity Clear, Urine pH 6.0, Ur Specific Newborn 1.010, Urine Protein Negative, Urine Glucose (UA) Normal, Urine Ketones Negative, Urine Occult Blood Negative, Urine Nitrite Negative, Urine Bilirubin Negative, Urine Urobilinogen Normal, Ur Leukocyte Esterase Negative, Urine RBC 0 SEEN, Urine WBC 0 SEEN, Ur Squamous Epith Cells 0 SEEN, Urine Bacteria RARE, Hyaline Casts 0-5 SEEN, Urine Mucus 0 SEEN 07/13/19 03:00: Troponin I < 0.015 07/13/19 05:40: Sodium 144, Potassium 3.9, Chloride 107, Carbon Dioxide 33.0 H, Anion Gap 4 L, BUN 10, Creatinine 0.58, Estim Creat Clear Calc 47.27, Est GFR (MDRD) Af Amer 129, Est GFR (MDRD) Non-Af 107, BUN/Creatinine Ratio 17.1, Glucose 114 H, Calcium 7.9 L 07/13/19 05:40: WBC 14.2 H, RBC 3.35 L, Hgb 9.2 L, Hct 30.1 L, MCV 89.9, MCH 27.5, MCHC 30.6 L, RDW Std Deviation 60.9 H, RDW Coeff of Laura 18.6 H, Plt Count 184, MPV 12.0, Immature Gran % (Auto) 0.600, Neut % (Auto) 84.3 H, Lymph % (Auto) 10.3 L, Crowley % (Auto) 4.6, Eos % (Auto) 0.1, Baso % (Auto) 0.1, Absolute Neuts (auto) 12.0 H, Absolute Lymphs (auto) 1.46, Nucleated RBC % 0 07/13/19 05:40: PT 26.1 H, INR 2.4 07/13/19 05:40: Troponin I < 0.015 Current Medications Acetaminophen (Tylenol) 650 mg PO Q6H PRN PRN PRN Reason: Pain Score 1-10/Temp > 100.7 F Last Admin: 07/13/19 05:46 Dose: 650 mg Documented by: Albuterol Sulfate (Ventolin Aerosols) 2.5 mg INHALATION Q2H PRN PRN PRN Reason: Shortness of breath, wheezing Albuterol/Ipratropium (Duoneb) 3 ml INHALATION Q6H.RT [facility] Last Admin: 07/13/19 06:54 Dose: 3 ml Documented by: Atenolol (Tenormin (Beta [place])) 50 mg PO BID [facility] Last Admin: 07/13/19 00:56 Dose: 50 mg Documented by: Budesonide (Pulmicort Aerosol) 0.5 mg INHALATION BID [facility] Last Admin: 07/13/19 00:55 Dose: 0.5 mg Documented by: Buspirone HCl (Buspar) 7.5 mg PO QHS [facility] Last Admin: 07/13/19 00:49 Dose: 7.5 mg Documented by: Citalopram Hydrobromide (Celexa) 40 mg PO DAILY [facility] Ferrous Sulfate (Ferrous Sulfate) 325 mg PO BIDCM [facility] Sodium Chloride () 250 mls @ 15 mls/hr IV .[id number] PRN PRN Reason: Saline Flush Last Infusion: 07/13/19 05:40 Dose: 0 mls/hr Documented by: Sodium Chloride () 250 mls @ 15 mls/hr IV .[id number] PRN PRN Reason: Additional IVPB Infusion Diltiazem HCl 125 mg/ Dextrose 125 mls @ 5 mls/hr IV .Q25H [facility]; Protocol Last Admin: 07/13/19 03:34 Dose: Not Given Documented by: Piperacillin Sod/Tazobactam (Sod 3.375 gm/ Sodium Chloride) 50 mls @ 12.5 mls/hr IV Q8 [facility] Last Admin: 07/13/19 05:39 Dose: 12.5 mls/hr Documented by: Sodium Chloride () 250 mls @ 15 mls/hr IV .[id number] PRN PRN Reason: Saline Flush Sodium Chloride () 250 mls @ 15 mls/hr IV .[id number] PRN PRN Reason: Additional IVPB Infusion Melatonin (Melatonin) 1.5 mg PO QHS [facility] Last Admin: 07/13/19 00:48 Dose: 1.5 mg Documented by: Ondansetron HCl (Zofran) 4 mg IV Q8H PRN PRN PRN Reason: NAUSEA/VOMITING Pantoprazole Sodium (Protonix) 20 mg PO DAILY [facility] Polyethylene Glycol (Miralax) 17 gm PO DAILY [facility] Potassium Chlor[facility] (K-Dur) [facility] Last Admin: 07/13/19 00:49 Dose: 20 meq Documented by: Senna/Docusate Sodium (Senokot-S, Caterina-Colace) 2 tablet PO BID PRN PRN PRN Reason: Constipation Sodium Chloride () 10 - 40 ml IV UD PRN PRN Reason: SALINE FLUSH Last Admin: 07/13/19 05:43 Dose: 40 ml Documented by: Sucralfate (Carafate) 1 gm PO 1HR_ACHS PRN PRN Reason: GI UPSET Warfarin Sodium (Coumadin (Pbkc)) 3 mg PO SuMoTuWeThSa@1700 CAIO Warfarin Sodium (Coumadin (Pbkc)) 4 mg PO Fr@1700 CAIO Zolpidem Tartrate (Ambien (Generic)) 5 mg PO QHS PRN PRN PRN Reason: INSOMNIA STROKE Vital Signs/Narrative: Vital Signs Temp Pulse Resp BP Pulse Ox 07/13/19 06:00 97.9 F 85 18 102/74 97 07/13/19 05:00 81 15 99/56 L 99 07/13/19 04:00 82 18 97/58 L 99 Medical Necessity - Tobacco Use Smoking Status: Former smoker Assessment/Plan All Active Problems (Last Updated 07/12/19 @ 21:39 by Ailyn Ramirez MD) Atrial fibrillation with RVR (Acute) Leukocytosis (Acute) Lactic acidosis (Acute) 73-year-old female with a past medical history of chronic atrial fibrillation, chronic diastolic CHF, chronic hypoxic respiratory failure who comes in with progressive shortness of breath and cough. 1. Acute on chronic respiratory failure secondary to acute on chronic diastolic CHF/A. fib with RVR 2. Acute on chronic diastolic CHF, not on Lasix yet on account of initial hypotension with probable septic shock; received IVF We will now start patient on Lasix 20 mg IV twice daily Repeat blood work in a.m. 3. A. fib with RVR, rate controlled, received 1 dose of cardizem bolus, INR is therapeutic, 2.4, continue Coumadin Will start metoprolol 50 mg twice daily 4. Probable pneumonia, respiratory panel is pending, blood cultures and urine culture pending, influenza screen negative Continue on empiric IV Zosyn 5. Elevated lactic acid secondary to hypoxia versus septic shock Lactic acid is trending down 6. COPD with chronic respiratory failure, on 2 L home oxygen, no signs of acute exacerbation 7. Chronic iron deficiency anemia, on p.o. iron 8. Hypertension, controlled, will switch to metoprolol 50 mg twice daily 9. DVT PPx- On warfarin, INR is therapeutic Code Visit Inpatient E&M: 67528 Subs Hosp L2
[2019-07-13] MEDS: Citalopram 40 MG TABLET PO (08:26)
[2019-07-13] MEDS: Ferrous Sulfate 325 MG Tablet PO ×2 (08:26→16:32)
[2019-07-13] MEDS: Pantoprazole Sodium 20 MG Tablet PO (08:27)
[2019-07-13] MEDS: Polyethylene Glycol 3350 17 GM PACKET PO (08:27)
[2019-07-13] MEDS: Furosemide 20 MG/2 ML VIAL IV ×2 (10:46→16:33)
[2019-07-13] MEDS: Albuterol 2.5 MG/3 ML VIAL.NEB. INHALATION (15:38)
[2019-07-13] MEDS: Metoprolol Tartrate 50 MG Tablet PO (17:21)
[2019-07-13] MEDS: Zolpidem Tartrate 5 MG Tablet PO (21:25)
--- NOTE | 2019-07-13 23:14 | CPS ---
HR increased . tx stopped
[2019-07-13] MEDS: dilTIAZem 25 MG/5 ML Vial 15 MG IV BOLUS (23:35)
[2019-07-14] VITALS (39 sets, daily range): BP systolic 102–143; BP diastolic 61–97; PULSE 83–150; RESP 16–31; TEMP 36.6–37.2; O2SAT 93–99
[2019-07-14] MEDS: Acetaminophen 325 MG Tablet 650 MG PO ×2 (03:48→17:25)
[2019-07-14] MEDS: Ipratropium/Albuterol Sulfate 3 ML AMPUL.NEB INHALATION ×4 (04:04→23:52)
[2019-07-14] MEDS: dilTIAZem 25 MG/5 ML Vial 10 MG IV BOLUS ×2 (05:10→09:16)
[2019-07-14] MEDS: 0.9% Saline Lock 10 ML Syringe IV (05:11)
[2019-07-14 07:14] LABS: Absolute Lymphocyte Count 1.55 X10^3/uL (0.83-4.51); Absolute Neutrophil Count 10.4 X10^3/uL (2.0-7.7); Basophil# 0.04 X10^3/uL; Basophil% 0.3 % (0-1); Eosinophil# 0.16 X10^3/uL; Eosinophils% 1.2 % (0-5); Hematocrit 32.5 % (37-47); Hemoglobin 9.9 g/dL (12.0-15.0); Lymphocyte # 1.55 X10^3/ul (4.0); Lymphocyte % 11.9 % (19-41); Mean Corp Hgb Conc 30.5 g/dL (32-36); Mean Corpuscular Hgb 27.7 pg (27.0-32.0); Mean Corpuscular Volume 90.8 fL (81-99); Mean Platelet Vol. 12.5 fl (6.2-12.0); Monocyte# 0.88 X10^3/uL; Monocyte% 6.7 % (0-10); NRBC Flagged by Analyzer 0 % (0-5); Neutrophil % 79.5 % (47-70); Platelet Count 204 K/mm3 (150-450); RBC Distribution Width CV 18.9 % (11.6-14.6); RBC Distribution Width SD 63.7 fl (35.1-43.9); Red Blood Count 3.58 M/mm3 (4.2-5.4); White Blood Count 13.1 K/mm3 (4.4-11.0)
[2019-07-14 07:18] LABS: International Normalized Ratio 2.3; Prothrombin Time (Protime)PT. 25.7 SECONDS (11.7-14.9)
[2019-07-14 07:39] LABS: ALB/GLOB Ratio 0.7 RATIO (0.9-2.4); AST(SGOT) 16 U/L (15-37); Alanine Aminotransfer ALT/SGPT 28 U/L (13-56); Albumin, Serum 2.6 g/dL (3.2-5.0); Alkaline Phosphatase 120 U/L (45-117); Anion Gap 3 (5-15); BUN 13 mg/dL (7-18); BUN/Creat Ratio 20.4 RATIO (10-20); Calcium,Total 8.5 mg/dL (8.5-10.1); Chloride 104 mmol/L (98-107); Creatinine, Serum 0.64 mg/dL (0.55-1.02); EST Glomerular Filtration Rate 97 mL/min (>60); Est Glom Filt Rate - Afr Amer 117 mL/min (>60); Estimated Creatinine Clearance 47.27 ml/min; Globulin 3.9 g/dL (2.2-4.2); Glucose 93 mg/dL (74-106); Potassium 3.8 mmol/L (3.5-5.1); Protein, Total 6.5 g/dL (6.4-8.2); Sodium Level 142 mmol/L (136-145)
[2019-07-14] MEDS: Albuterol 2.5 MG/3 ML VIAL.NEB. INHALATION (07:46)
[2019-07-14] MEDS: Budesonide Respules 0.5 MG/2 ML AMPUL.NEB. INHALATION ×2 (07:46→19:07)
--- NOTE | 2019-07-14 08:08 | PCM.PN.INT ---
Subjective: Patient transferred out of the intensive care unit yesterday. Patient states that she was feeling better after Lasix yesterday, but overnight developed tachycardia and this morning is reporting I feel the same as when I came in. Patient denies any chest pain, but does have some tightness. Patient states that she is not having any nausea or vomiting. There is no radiation noted. General: Alert, Oriented x3, Cooperative, - - Mild distress with mild conversational dyspnea. HEENT: Atraumatic, PERRLA, EOMI, Normocephalic, - - Slight scleral injection without icterus. Glasses not in place. Oral: Moist Mucosa, No Gingival or Mucosal Lesions/ Ulcerations Neck: Supple, No JVD, No Nodes, Trachea Midline Lungs: No rhonchi, No rales, Diminished, Wheezes, - - Symmetric expansion. Cardiovascular: Normal S1, Normal S2, No murmurs, Irregular Rate, No rub noted, No Gallop, Tachycardic Abdomen: Bowel Sounds Present, Soft, Non Tender, Non-Distended Extremities: No clubbing, No cyanosis, Edema Skin: No rashes, No breakdown Musculoskeletal: No Tenderness to Palpation of Joints or Extremities Lymphatic: No Cervical, Supraclavicular, or Inguinal Adenopathy Neurological: Cranial nerves II-XII grossly intact, Neuro grossly intact, Motor Exam 5/5 strength throughout Psych/Mental Status: Anxious, Flat Affect Vital Signs Temp Pulse Resp BP Pulse Ox 36.8 C 117 H 18 140/68 H 96 07/14/19 06:15 07/14/19 07:29 07/14/19 06:15 07/14/19 06:15 07/14/19 06:15 Oxygen Flow Rate (L/min) 2 Oxygen Delivery Method Nasal Cannula Weight: 87.1 kg Body Mass Index (BMI) 29.9 Intake and Output for Last 24 Hours 07/12/19 07/13/19 07/14/19 23:59 23:59 23:59 Intake Total 50 / 1050 4454.5 / 4454.5 300.25 / 300.25 Output Total 400 / 400 100 / 100 Balance 50 / 1050 4054.5 / 4054.5 200.25 / 200.25 Labs (Last 48 Hours) 07/12/19 07/12/19 07/12/19 19:45 19:45 19:45 WBC 18.6 H RBC 4.06 L Hgb 11.3 L Hct 36.0 L MCV 88.7 MCH 27.8 MCHC 31.4 L RDW Std Deviation 60.8 H RDW Coeff of Laura 18.7 H Plt Count 227 MPV 12.1 H Immature Gran % (Auto) 0.600 Neut % (Auto) 96.1 H Lymph % (Auto) 2.6 L [place] % (Auto) 0.6 Eos % (Auto) 0.0 Baso % (Auto) 0.1 Absolute Neuts (auto) 17.8 H Absolute Lymphs (auto) 0.49 L Nucleated RBC % 0 Differential Comment SCANNED PT INR Sodium 140 Potassium 3.5 Chloride 101 Carbon Dioxide 29.0 Anion Gap 10 BUN 11 Creatinine 1.05 H Estim Creat Clear Calc 45.02 Est GFR (MDRD) Af Amer 66 Est GFR (MDRD) Non-Af 54 L BUN/Creatinine Ratio 10.5 Glucose 253 H Lactic Acid 4.9 H* Calcium 9.3 Total Bilirubin AST ALT Alkaline Phosphatase Troponin I < 0.015 B-Natriuretic Peptide Total Protein Albumin Globulin Albumin/Globulin Ratio Urine Color Urine Clarity Urine pH Ur Specific [place] Urine Protein Urine Glucose (UA) Urine Ketones Urine Occult Blood Urine Nitrite Urine Bilirubin Urine Urobilinogen Ur Leukocyte Esterase Urine RBC Urine WBC Ur Squamous Epith Cells Urine Bacteria Hyaline Casts Urine Mucus MRSA (PCR) 07/12/19 07/12/19 07/12/19 19:45 19:45 21:30 WBC RBC Hgb Hct MCV MCH MCHC RDW Std Deviation RDW Coeff of Laura Plt Count MPV Immature Gran % (Auto) Neut % (Auto) Lymph % (Auto) [place] % (Auto) Eos % (Auto) Baso % (Auto) Absolute Neuts (auto) Absolute Lymphs (auto) Nucleated RBC % Differential Comment PT 21.8 H INR 1.9 Sodium Potassium Chloride Carbon Dioxide Anion Gap BUN Creatinine Estim Creat Clear Calc Est GFR (MDRD) Af Amer Est GFR (MDRD) Non-Af BUN/Creatinine Ratio Glucose Lactic Acid 5.0 H* Calcium Total Bilirubin AST ALT Alkaline Phosphatase Troponin I B-Natriuretic Peptide 343.8 H Total Protein Albumin Globulin Albumin/Globulin Ratio Urine Color Urine Clarity Urine pH Ur Specific [place] Urine Protein Urine Glucose (UA) Urine Ketones Urine Occult Blood Urine Nitrite Urine Bilirubin Urine Urobilinogen Ur Leukocyte Esterase Urine RBC Urine WBC Ur Squamous Epith Cells Urine Bacteria Hyaline Casts Urine Mucus MRSA (PCR) 07/13/19 07/13/19 07/13/19 00:05 00:05 00:05 WBC RBC Hgb Hct MCV MCH MCHC RDW Std Deviation RDW Coeff of Laura Plt Count MPV Immature Gran % (Auto) Neut % (Auto) Lymph % (Auto) [place] % (Auto) Eos % (Auto) Baso % (Auto) Absolute Neuts (auto) Absolute Lymphs (auto) Nucleated RBC % Differential Comment PT INR Sodium Potassium Chloride Carbon Dioxide Anion Gap BUN Creatinine Estim Creat Clear Calc Est GFR (MDRD) Af Amer Est GFR (MDRD) Non-Af BUN/Creatinine Ratio Glucose Lactic Acid 2.9 H* Calcium Total Bilirubin AST ALT Alkaline Phosphatase Troponin I < 0.015 B-Natriuretic Peptide Total Protein Albumin Globulin Albumin/Globulin Ratio Urine Color Urine Clarity Urine pH Ur Specific [place] Urine Protein Urine Glucose (UA) Urine Ketones Urine Occult Blood Urine Nitrite Urine Bilirubin Urine Urobilinogen Ur Leukocyte Esterase Urine RBC Urine WBC Ur Squamous Epith Cells Urine Bacteria Hyaline Casts Urine Mucus MRSA (PCR) Negative 07/13/19 07/13/19 07/13/19 00:20 03:00 05:40 WBC RBC Hgb Hct MCV MCH MCHC RDW Std Deviation RDW Coeff of Laura Plt Count MPV Immature Gran % (Auto) Neut % (Auto) Lymph % (Auto) [place] % (Auto) Eos % (Auto) Baso % (Auto) Absolute Neuts (auto) Absolute Lymphs (auto) Nucleated RBC % Differential Comment PT INR Sodium 144 Potassium 3.9 Chloride 107 Carbon Dioxide 33.0 H Anion Gap 4 L BUN 10 Creatinine 0.58 Estim Creat Clear Calc 47.27 Est GFR (MDRD) Af Amer 129 Est GFR (MDRD) Non-Af 107 BUN/Creatinine Ratio 17.1 Glucose 114 H Lactic Acid Calcium 7.9 L Total Bilirubin AST ALT Alkaline Phosphatase Troponin I < 0.015 B-Natriuretic Peptide Total Protein Albumin Globulin Albumin/Globulin Ratio Urine Color Yellow Urine Clarity Clear Urine pH 6.0 Ur Specific [place] 1.010 Urine Protein Negative Urine Glucose (UA) Normal Urine Ketones Negative Urine Occult Blood Negative Urine Nitrite Negative Urine Bilirubin Negative Urine Urobilinogen Normal Ur Leukocyte Esterase Negative Urine RBC 0 SEEN Urine WBC 0 SEEN Ur Squamous Epith Cells 0 SEEN Urine Bacteria RARE Hyaline Casts 0-5 SEEN Urine Mucus 0 SEEN MRSA (PCR) 07/13/19 07/13/19 07/13/19 05:40 05:40 05:40 WBC 14.2 H RBC 3.35 L Hgb 9.2 L Hct 30.1 L MCV 89.9 MCH 27.5 MCHC 30.6 L RDW Std Deviation 60.9 H RDW Coeff of Laura 18.6 H Plt Count 184 MPV 12.0 Immature Gran % (Auto) 0.600 Neut % (Auto) 84.3 H Lymph % (Auto) 10.3 L [place] % (Auto) 4.6 Eos % (Auto) 0.1 Baso % (Auto) 0.1 Absolute Neuts (auto) 12.0 H Absolute Lymphs (auto) 1.46 Nucleated RBC % 0 Differential Comment PT 26.1 H INR 2.4 Sodium Potassium Chloride Carbon Dioxide Anion Gap BUN Creatinine Estim Creat Clear Calc Est GFR (MDRD) Af Amer Est GFR (MDRD) Non-Af BUN/Creatinine Ratio Glucose Lactic Acid Calcium Total Bilirubin AST ALT Alkaline Phosphatase Troponin I < 0.015 B-Natriuretic Peptide Total Protein Albumin Globulin Albumin/Globulin Ratio Urine Color Urine Clarity Urine pH Ur Specific [place] Urine Protein Urine Glucose (UA) Urine Ketones Urine Occult Blood Urine Nitrite Urine Bilirubin Urine Urobilinogen Ur Leukocyte Esterase Urine RBC Urine WBC Ur Squamous Epith Cells Urine Bacteria Hyaline Casts Urine Mucus MRSA (PCR) 07/14/19 07/14/19 07/14/19 06:34 06:34 06:34 WBC 13.1 H RBC 3.58 L Hgb 9.9 L Hct 32.5 L MCV 90.8 MCH 27.7 MCHC 30.5 L RDW Std Deviation 63.7 H RDW Coeff of Laura 18.9 H Plt Count 204 MPV 12.5 H Immature Gran % (Auto) 0.400 Neut % (Auto) 79.5 H Lymph % (Auto) 11.9 L [place] % (Auto) 6.7 Eos % (Auto) 1.2 Baso % (Auto) 0.3 Absolute Neuts (auto) 10.4 H Absolute Lymphs (auto) 1.55 Nucleated RBC % 0 Differential Comment PT 25.7 H INR 2.3 Sodium 142 Potassium 3.8 Chloride 104 Carbon Dioxide 35.0 H Anion Gap 3 L BUN 13 Creatinine 0.64 Estim Creat Clear Calc 47.27 Est GFR (MDRD) Af Amer 117 Est GFR (MDRD) Non-Af 97 BUN/Creatinine Ratio 20.4 H Glucose 93 Lactic Acid Calcium 8.5 Total Bilirubin 1.50 H AST 16 ALT 28 Alkaline Phosphatase 120 H Troponin I B-Natriuretic Peptide Total Protein 6.5 Albumin 2.6 L Globulin 3.9 Albumin/Globulin Ratio 0.7 L Urine Color Urine Clarity Urine pH Ur Specific [place] Urine Protein Urine Glucose (UA) Urine Ketones Urine Occult Blood Urine Nitrite Urine Bilirubin Urine Urobilinogen Ur Leukocyte Esterase Urine RBC Urine WBC Ur Squamous Epith Cells Urine Bacteria Hyaline Casts Urine Mucus MRSA (PCR) Microbiology 07/13/19 06:45 Mucosa - Nasopharyngeal Respiratory Panel (PCR) - Final 07/12/19 20:10 Mucosa - Nasopharyngeal Influenza Types A,B Direct FA (ROMI) - Final Medical Necessity - Tobacco Use Smoking Status: Former smoker Assessment/Plan All Active Problems (Last Updated 07/12/19 @ 21:39 by Ailyn Ramirez MD) Atrial fibrillation with RVR (Acute) Leukocytosis (Acute) Lactic acidosis (Acute) RECOMMENDATIONS: 1. Empiric antibiotics for 48 hours until culture negative 2. Wean prednisone therapy and oxygen as tolerated 3. Consider cardiology consult. Aggressive rate control 4. Walking oximetry prior to discharge 5. Okay to make aerosols as needed from a respiratory perspective if this will help with rate control IMPRESSIONS: 1. Acute on chronic hypoxic respiratory insufficiency secondary to A. fib with RVR and probable acute diastolic CHF Given age and comorbidities, diastolic dysfunction would be assumed. This could have led to pulmonary congestion secondary to A. fib with RVR. Viral panel was negative. Patient appears to have significant wheezing at this time, but also has a heart rate greater than 120 bpm. Patient has responded to Cardizem previously. Will defer to hospitalist, but patient may benefit from a cardiology evaluation. Okay to transition to PRN aerosols from my perspective if this will help with rate control as patient had much better respiratory mechanics when rate was controlled. 2. Reported COPD/chronic hypoxia respiratory failure Unclear if this is true. Patient does have a smoking history, but will need outpatient complete pulmonary function test for quantification and clarification of lung function. Reasonable to use as needed bronchodilators as patient does not have significant wheezing on exam and this may exacerbate A. fib with RVR. Patient does have some elevated pulmonary artery pressures, but this could be multifactorial and does not require significant inpatient evaluation. 3. Chronic anemia/history of DVT PE/depression/anxiety/hypertension Complicates care, management, recovery and prognosis. Okay to continue with baseline medications. Patient should be monitored closely with daily INRs given concomitant antibiotic therapy. No bleeding complications at this time. Code Visit Inpatient E&M: 70950 [facility] Hosp L3
[2019-07-14] MEDS: Ferrous Sulfate 325 MG Tablet PO ×2 (08:21→15:35)
[2019-07-14] MEDS: Citalopram 40 MG TABLET PO (08:27)
[2019-07-14] MEDS: Pantoprazole Sodium 20 MG Tablet PO (08:27)
[2019-07-14] MEDS: Furosemide 20 MG/2 ML VIAL IV ×2 (08:27→17:22)
[2019-07-14] MEDS: Metoprolol Tartrate 50 MG Tablet PO (08:27)
[2019-07-14] MEDS: Polyethylene Glycol 3350 17 GM PACKET PO (08:27)
--- NOTE | 2019-07-14 09:05 | PCM.PN.HOSP ---
Patient Problems: Active and Suspected Problems (Last Updated 07/12/19 @ 21:39 by Ailyn Ramirez MD) Atrial fibrillation with RVR (Acute) Leukocytosis (Acute) Lactic acidosis (Acute) Reason for Visit: Follow-up on septic shock/pneumonia/acute on chronic hypoxic respiratory failure/CHF Subjective: Patient was seen and examined. She complains of feeling fatigued. Telemetry showed persistent A. fib with RVR. Resumed on Cardizem bolus and drip. Cardiology consulted Objective: Physical exam: General: Alert, Oriented x3, Cooperative, in mild respiratory distress, on 2 L of oxygen HEENT: Atraumatic, PERRLA, EOMI, Normocephalic Oral: Moist Mucosa, No Gingival or Mucosal Lesions/ Ulcerations Neck: Supple, No JVD, Negative Carotid Bruits, Trachea Midline, Thyroid Normal Size and Texture Lungs: Diminished, no wheezes heard, rales at the lung bases Cardiovascular: Normal S1, Normal S2, PMI Normal, Irregular Rate, Tachycardic Abdomen: Bowel Sounds Present, Soft, Non Tender, Non-Distended, No Hepato-splenomegaly, Obese Extremities: No clubbing, No cyanosis, Edema - + Edema. Skin: No rashes, No breakdown Lymphatic: No Cervical, Supraclavicular, or Inguinal Adenopathy Neurological: Cranial nerves II-XII grossly intact, Motor Exam 5/5 strength throughout Psych/Mental Status: Normal Affect, Appropriate, Alert and oriented to time, place, person, mood and affect Vitals/I&O's: Vital Signs Temp Pulse Resp BP Pulse Ox 98.3 F 125 H 16 140/68 H 95 07/14/19 06:15 07/14/19 08:27 07/14/19 07:46 07/14/19 06:15 07/14/19 07:46 Oxygen Flow Rate (L/min) 2 Oxygen Delivery Method Nasal Cannula Weight: 87.1 kg Body Mass Index (BMI) 29.9 Intake and Output for Last 24 Hours 07/12/19 07/13/19 07/14/19 23:59 23:59 23:59 Intake Total 50 / 1050 4454.5 / 4454.5 300.25 / 300.25 Output Total 400 / 400 100 / 100 Balance 50 / 1050 4054.5 / 4054.5 200.25 / 200.25 Microbiology Past 72 Hours 07/13/19 06:45 Mucosa - Nasopharyngeal Respiratory Panel (PCR) - Final 07/12/19 20:10 Mucosa - Nasopharyngeal Influenza Types A,B Direct FA (ROMI) - Final Laboratory Results 07/14/19 06:34: WBC 13.1 H, RBC 3.58 L, Hgb 9.9 L, Hct 32.5 L, MCV 90.8, MCH 27.7, MCHC 30.5 L, RDW Std Deviation 63.7 H, RDW Coeff of Laura 18.9 H, Plt Count 204, MPV 12.5 H, Immature Gran % (Auto) 0.400, Neut % (Auto) 79.5 H, Lymph % (Auto) 11.9 L, [place] % (Auto) 6.7, Eos % (Auto) 1.2, Baso % (Auto) 0.3, Absolute Neuts (auto) 10.4 H, Absolute Lymphs (auto) 1.55, Nucleated RBC % 0 07/14/19 06:34: PT 25.7 H, INR 2.3 07/14/19 06:34: Sodium 142, Potassium 3.8, Chloride 104, Carbon Dioxide 35.0 H, Anion Gap 3 L, BUN 13, Creatinine 0.64, Estim Creat Clear Calc 47.27, Est GFR (MDRD) Af Amer 117, Est GFR (MDRD) Non-Af 97, BUN/Creatinine Ratio 20.4 H, Glucose 93, Calcium 8.5, Total Bilirubin 1.50 H, AST 16, ALT 28, Alkaline Phosphatase 120 H, Total Protein 6.5, Albumin 2.6 L, Globulin 3.9, Albumin/Globulin Ratio 0.7 L Current Medications Acetaminophen (Tylenol) 650 mg PO Q6H PRN PRN PRN Reason: Pain Score 1-10/Temp > 100.7 F Last Admin: 07/14/19 03:48 Dose: 650 mg Documented by: Albuterol Sulfate (Ventolin Aerosols) 2.5 mg INHALATION Q2H PRN PRN PRN Reason: Shortness of breath, wheezing Last Admin: 07/14/19 07:46 Dose: 2.5 mg Documented by: Albuterol/Ipratropium (Duoneb) 3 ml INHALATION Q6H.RT CAIO Last Admin: 07/14/19 04:04 Dose: 3 ml Documented by: Budesonide (Pulmicort Aerosol) 0.5 mg INHALATION BID [facility] Last Admin: 07/14/19 07:46 Dose: 0.5 mg Documented by: Buspirone HCl (Buspar) 7.5 mg PO QHS [facility] Last Admin: 07/13/19 21:25 Dose: 7.5 mg Documented by: Citalopram Hydrobromide (Celexa) 40 mg PO DAILY [facility] Last Admin: 07/14/19 08:27 Dose: 40 mg Documented by: Diltiazem HCl (Cardizem) 10 mg IV BOLUS X1 ONE Stop: 07/14/19 09:05 Ferrous Sulfate (Ferrous Sulfate) 325 mg PO BIDCM [facility] Last Admin: 07/14/19 08:21 Dose: 325 mg Documented by: Furosemide (Lasix) 20 mg IV BID@1000,1800 [facility] Last Admin: 07/14/19 08:27 Dose: 20 mg Documented by: Sodium Chloride () 250 mls @ 15 mls/hr IV .[id number] PRN PRN Reason: Saline Flush Last Infusion: 07/14/19 03:00 Dose: 0 mls/hr Documented by: Sodium Chloride () 250 mls @ 15 mls/hr IV .[id number] PRN PRN Reason: Additional IVPB Infusion Piperacillin Sod/Tazobactam (Sod 3.375 gm/ Sodium Chloride) 50 mls @ 12.5 mls/hr IV Q8 [facility] Last Admin: 07/14/19 05:10 Dose: 12.5 mls/hr Documented by: Sodium Chloride () 250 mls @ 15 mls/hr IV .[id number] PRN PRN Reason: Saline Flush Sodium Chloride () 250 mls @ 15 mls/hr IV .[id number] PRN PRN Reason: Additional IVPB Infusion Diltiazem HCl 125 mg/ Dextrose 125 mls @ 5 mls/hr IV .Q25H [facility]; Protocol Melatonin (Melatonin) 1.5 mg PO QHS [facility] Last Admin: 07/13/19 21:26 Dose: Not Given Documented by: Metoprolol Tartrate (Lopressor (Beta [place])) 50 mg PO BID [facility] Last Admin: 07/14/19 08:27 Dose: 50 mg Documented by: Ondansetron HCl (Zofran) 4 mg IV Q8H PRN PRN PRN Reason: NAUSEA/VOMITING Pantoprazole Sodium (Protonix) 20 mg PO DAILY [facility] Last Admin: 07/14/19 08:27 Dose: 20 mg Documented by: Polyethylene Glycol (Miralax) 17 gm PO DAILY [facility] Last Admin: 07/14/19 08:27 Dose: 17 gm Documented by: Potassium Chloride (K-Dur) 20 meq PO BIDCM [facility] Last Admin: 07/14/19 08:21 Dose: 20 meq Documented by: Senna/Docusate Sodium (Senokot-S, Caterina-Colace) 2 tablet PO BID PRN PRN PRN Reason: Constipation Sodium Chloride () 10 - 40 ml IV UD PRN PRN Reason: SALINE FLUSH Last Admin: 07/14/19 05:11 Dose: 20 ml Documented by: Sucralfate (Carafate) 1 gm PO 1HR_ACHS PRN PRN Reason: GI UPSET Warfarin Sodium (Coumadin (Pbkc)) 3 mg PO SuMoTuWeThSa@1700 [facility] Last Admin: 07/13/19 16:32 Dose: 3 mg Documented by: Warfarin Sodium (Coumadin (Pbkc)) 4 mg PO Fr@1700 [facility] Zolpidem Tartrate (Ambien (Generic)) 5 mg PO QHS PRN PRN PRN Reason: INSOMNIA Last Admin: 07/13/19 21:25 Dose: 5 mg Documented by: STROKE Vital Signs/Narrative: Vital Signs Temp Pulse Resp BP Pulse Ox 07/14/19 08:27 125 H 07/14/19 07:46 99 16 95 07/14/19 07:29 117 H 07/14/19 06:15 98.3 F 115 H 18 140/68 H 96 07/14/19 05:09 98.1 F 150 H 20 H 115/82 H 94 Medical Necessity - Tobacco Use Smoking Status: Former smoker Assessment/Plan All Active Problems (Last Updated 07/12/19 @ 21:39 by Ailyn Ramirez MD) Atrial fibrillation with RVR (Acute) Leukocytosis (Acute) Lactic acidosis (Acute) 73-year-old female with a past medical history of chronic atrial fibrillation, chronic diastolic CHF, chronic hypoxic respiratory failure who comes in with progressive shortness of breath and cough. 1. Acute on chronic respiratory failure secondary to acute on chronic diastolic CHF/A. fib with RVR 2. Acute on chronic diastolic CHF Continue on on Lasix 20 mg IV twice daily Repeat blood work in a.m. 3. A. fib with RVR, rate controlled, resumed on Cardizem, continue metoprolol per cardiology recommendations INR is therapeutic, 2.4, continue Coumadin 4. Probable pneumonia, respiratory panel is negative, blood cultures and urine culture pending, influenza screen negative Continue on empiric IV Zosyn 5. Elevated lactic acid secondary to hypoxia versus septic shock Lactic acid is trending down 6. COPD with chronic respiratory failure, on 2 L home oxygen, no signs of acute exacerbation 7. Chronic iron deficiency anemia, on p.o. iron 8. Hypertension, controlled, will switch to metoprolol 50 mg twice daily 9. DVT PPx- On warfarin, INR is therapeutic Code Visit Inpatient E&M: 55879 Subs Hosp L2
--- NOTE | 2019-07-14 11:31 | CON.PCM_ITS ---
Problem List (1) Diastolic dysfunction Status: Chronic (2) Chronic anticoagulation Status: Chronic (3) Former tobacco use Status: Chronic (4) Pulmonary hypertension Status: Chronic (5) History of recurrent deep vein thrombosis (DVT) Status: Chronic (6) History of pulmonary embolism Status: Chronic (7) Paroxysmal atrial fibrillation Status: Chronic Comment: DCCV on 01/31/2018; (8) HTN (hypertension) Status: Chronic Qualifiers: Hypertension type: essential hypertension Qualified Code(s): I10 - Essential (primary) hypertension (9) Chronic diastolic CHF (congestive heart failure) Status: Chronic (10) Dyslipidemia Status: Chronic Reason for Consult Date of Consultation: 07/14/19 Reason for Consultation: Atrial fibrillation, COPD, hypertension, pulmonary pretension, previous pulmonary embolism History of Present Illness: The patient is a 73 year old F, patient of Dr. Jaffe'blayne with known history of severe COPD on chronic O2 therapy of 2 to 3 L, previous smoker, nondiabetic, no previous CVA, no previous diagnosed coronary artery disease, with longstanding history of atrial fibrillation requiring chronic warfarin therapy superimposed on previous DVT and possible pulmonary embolism in the past. Her most recent visit with Dr. Jaffe in the office was 05/27/2019 at which time she was doing fairly well. She currently resides in [place] due to her COPD. Apparently patient's had longstanding atrial fibrillation and has had failed cardioversions in the past. She is currently treated with Coumadin therapy and beta-donna therapy. She states she may have had a cardiac catheterization by Dr. Henson many years ago but we do not have that in the computer. Patient quit tobacco about 15 years ago after [id number] smoking history. She states that she has had gradual increasing dyspnea on exertion, shortness of breath, 3 episodes of nausea and vomiting, superimposed on increasing heart rate as well as chest pain and chest pressure which required a urgent visit to the emergency room on the evening of admission. At that time she was found to be in moderate respiratory distress, requiring higher dose oxygen, abnormal lactate, and rapid atrial fibrillation which appeared to improve with IV Cardizem. She was admitted to the ICU with sepsis protocol, received IV fluids, and seemed to improve, and eventually transferred to the floor. The patient's heart rate appeared to improve, but apparently increases with any minimal movement. She currently is in some mild respiratory distress with conversational dyspnea, and bilateral wheezing. She is on a Cardizem drip which is maintaining her heart rate in the mid 80s. On telemetry overnight patient was found to have atrial fibrillation with rapid ventricular response. EKG on presentation demonstrated atrial fibrillation with rapid ventricular response, no acute changes. Her troponins are negative. Past Medical History Allergies/Adverse Reactions: Allergies amlodipine besylate [From [facility]] Adverse Reaction (Verified 07/12/19 19:39) ANKLE AND LEG EDEMA RESOLVED OFF MED-PER PCP PAPERWORK codeine Adverse Reaction (Verified 07/12/19 19:39) MENTAL STATUS CHANGE lisinopril Adverse Reaction (Verified 07/12/19 19:39) COUGH Home Medications: Ambulatory Orders Medication Instructions Recorded Ergocalciferol [Vitamin D] 50,000 unit PO TH 07/19/15 Warfarin Sodium 4 mg PO FR 03/08/18 Furosemide 40 mg PO BID #60 tab 03/11/18 Citalopram Hydrobromide 40 mg PO DAILY 05/23/18 [Citalopram HBr] Ipratropium/Albuterol Sulfate 3 ml INHALATION 4X/DAY 08/10/18 [Duoneb] Atenolol [Tenormin (beta donna)] 50 mg PO BID 09/08/18 albuterol sulfate 90 mcg/actuation 2 puff INHALATION Q4H PRN PRN g 09/17/18 aerosol inhaler Budesonide 2 ml IH BID 01/17/19 Omeprazole 20 mg PO DAILY 01/17/19 Senna [Senokot] 1 tab PO BID 01/17/19 Sucralfate [Carafate] 1 gm PO 4X/DAY PRN 01/17/19 Vit A/Vit C/Vit E/Zinc/Copper 1 ea PO BID 01/17/19 [Preservision Areds Tablet] Warfarin [Coumadin] 3 mg PO SUMOTUWETHSA 01/17/19 Buspirone HCl 7.5 mg PO QHS 05/07/19 Ferrous Sulfate 325 mg PO BIDCM #1 tab 05/09/19 Melatonin 1.5 mg PO QHS tab 05/09/19 Prednisone 40 mg PO DAILY #10 tab 05/09/19 Zolpidem Tartrate [Ambien] 5 mg PO QHS PRN PRN #7 tab 05/09/19 Acetaminophen [Tylenol Tablet] 650 mg PO Q6H PRN PRN 07/12/19 Azithromycin [Zithromax Z-Cabrera] 250 mg PO UD 07/12/19 Cyanocobalamin (Vitamin B-12) 500 mcg PO DAILY@0800 07/12/19 [Vitamin B-12] Diltiazem CD [Cardizem CD] 120 mg PO BID 07/12/19 Polyethylene Glycol 3350 17 gm PO DAILY 07/12/19 Potassium Chloride 20 meq PO BID 07/12/19 Past Medical History (Chronic Problems): Chronic Problems (Last Updated 07/12/19 @ 21:39 by Ailyn Ramirez MD) Diastolic dysfunction (Chronic) Chronic hypoxemic respiratory failure (Chronic) Chronic anticoagulation (Chronic) Former tobacco use (Chronic) Depression (Chronic) Pulmonary hypertension (Chronic) History of recurrent deep vein thrombosis (DVT) (Chronic) History of pulmonary embolism (Chronic) History of cardioversion (Chronic) January of 2018.....HR not controlled with exertion while in AF on Beta donna and cardizem. Converted to NSR with cardioversion Paroxysmal atrial fibrillation (Chronic) DCCV on 01/31/2018; HTN (hypertension) (Chronic) Iron deficiency anemia (Chronic) Chronic diastolic CHF (congestive heart failure) (Chronic) Acute exacerbation of CHF (congestive heart failure) (Chronic) Dyslipidemia (Chronic) COPD (chronic obstructive pulmonary disease) (Chronic) Surgical History: cholecystectomy, hysterectomy, - - tailbone surgery. 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 Paternal Family History: Family History (Last Reviewed 05/07/19 @ 13:35 by Yoselin Junior DO) Sister Heart disease History Items: - - Patient denies any marketed paternal family history including heart disease, diabetes, cancer. Sibling Family History: Family History (Last Reviewed 05/07/19 @ 13:35 by Yoselin Junior DO) Sister Heart disease History Items: - - Patient notes a sibling specifically her sister with Parkinson's disease and heart disease as well as a brother with Parkinson's disease, asthma and history of blood clots. Lives: Intermediate Smoking Status: Former smoker Alcohol: None Drugs: None Review of Systems - Review of Systems General: Denies: Fever, Night Sweats, Fatigue Cardiovascular: Reports: Chest Discomfort, Chest Discomfort at Rest, Chest Tightness, Chest Heaviness, Shortness of Breath, Shortness of Breath at Rest. Denies: Orthopnea, PND, Peripheral Edema, Palpitations, Lightheadedness, Dizziness, Near Syncope, Syncope Respiratory: Reports: Shortness of Breath, Wheezing. Denies: Cough, Sputum Production, Hemoptysis Gastrointestinal: Reports: Nausea. Denies: Hematemesis, Hematochezia, Melena Genitourinary: Denies: Dysuria, Hematuria Skin: Denies: Rash Subjectve: Patient laying upright in bed, mild respiratory distress, mild conversational dyspnea, no chest pain symptoms. Cardizem drip infusing. Objective: Vital Signs Temp Pulse Resp BP Pulse Ox 98.3 F 92 27 H 121/90 H 94 07/14/19 06:15 07/14/19 10:15 07/14/19 10:15 07/14/19 10:15 07/14/19 10:15 Oxygen Flow Rate (L/min) 2 Oxygen Delivery Method Nasal Cannula Weight: 192 lb 0.362 oz Body Mass Index (BMI) 29.9 Intake and Output for Last 24 Hours 07/12/19 07/13/19 07/14/19 23:59 23:59 23:59 Intake Total 50 / 1050 4454.5 / 4454.5 354.33 / 354.33 Output Total 400 / 400 100 / 100 Balance 50 / 1050 4054.5 / 4054.5 254.33 / 254.33 General: Awake, Alert, Oriented x 3 HEENT: PERRL, EOMI, Sclera Non Icteric Neck: Supple, Good ROM, No Lymph Node Enlargement Lungs: Inspiratory Wheezes - Manuel Cardiovascular: Irregular Rhythm, Normal S2, No Rubs, No Gallops Murmur Murmur: Grade 2/6, Grade 3/6, Holosystolic 07/14/19 06:34: WBC 13.1 H, RBC 3.58 L, Hgb 9.9 L, Hct 32.5 L, MCV 90.8, MCH 27.7, MCHC 30.5 L, Plt Count 204, MPV 12.5 H, Immature Gran % (Auto) 0.400, Neut % (Auto) 79.5 H, Lymph % (Auto) 11.9 L, [place] % (Auto) 6.7, Eos % (Auto) 1.2, Baso % (Auto) 0.3, Absolute Neuts (auto) 10.4 H, Nucleated RBC % 0 07/14/19 06:34: PT 25.7 H, INR 2.3 07/14/19 06:34: Sodium 142, Potassium 3.8, Chloride 104, Carbon Dioxide 35.0 H, Anion Gap 3 L, BUN 13, Creatinine 0.64, Est GFR (MDRD) Af Amer 117, Est GFR (MDRD) Non-Af 97, BUN/Creatinine Ratio 20.4 H, Glucose 93, Calcium 8.5, Total Bilirubin 1.50 H Rhythm: EKG: As above ECHO: Pending, echo from 09/08/2018 is as follows: The study was technically difficult. Left ventricular systolic function is normal. The estimated ejection fraction is 60 %. The left atrium is mildly enlarged. The right atrium is moderately enlarged. There is moderate mitral annular calcification. Extension of the mitral annular calcification on to the mitral valve leaflet. Trivial mitral valve insufficiency. Mild tricuspid valve insufficiency. Moderate focal aortic valve calcification. Right ventricular systolic pressure estimated to be 35 mmHg. Unable to assess diastolic dysfunction. Stress Test: Cardiac Cath: PCI: CT Surgery: Holter monitor: EPS: PPM: CXR: Chest CT Scan: Assessment/Plan 1. Atrial fibrillation: The patient presents with what appears to be a COPD exacerbation, hypoxemia, nausea, vomiting, mild sepsis, with no overt pulmonary infiltrates on initial chest x-ray, initially improved with IV fluids and antibiotic therapy, and now has recurrent atrial fibrillation with rapid ventricular response requiring progressive IV Cardizem drip. Patient has known atrial fibrillation which is refractory to DC cardioversion in the past. She is currently on Coumadin therapy and therapeutic on INR of 2.3. Apparently she also has a history of lower extremity DVT and possible pulmonary embolism requiring lifelong anticoagulation therapy. I recommended the patient undergo a repeat 2D echo with Doppler to determine if she has had any deterioration of her LV function since her last echocardiogram on 09/08/2018. Specifically on looking for possible Takostubos cardiomyopathy which may be contributing to her overall symptomatic pattern and mild pulmonary congestion on her chest x-ray. If her LV function has remained the same, not recommend diagnostic coronary catheterization. If however her LV function has markedly deteriorated she may require a diagnostic coronary angiogram. In addition I would recommend starting her on amiodarone 400 mg p.o. 3 times daily x3 days, followed by 200 mg p.o. daily as I believe she would benefit from better heart rate control. It is doubtful the patient will have a chemical cardioversion given the longstanding nature of her atrial fibrillation and dila miguel angel atria. She has had cardioversions in the past which apparently were unsuccessful. Nonetheless I believe maintaining a low heart rate may be beneficial to the patient and she may not be able to tolerate beta-donna therapy going forward given her severe COPD. Would recommend continuing IV Cardizem drip until her heart rate is well controlled. Recommend reducing her Lopressor to 25 mg p.o. twice daily while she is undergoing her COPD exacerbation. May want a consider IV steroid therapy to assist with bronchospasm and wheezing. 2. Coronary artery disease: The patient presented with some chest pain superimposed on her atrial fibrillation and her troponins are negative x3. I do not believe she requires urgent catheterization at this time particularly since she is on Coumadin. Once her COPD exacerbation has resolved, I would consider a noninvasive stress test to assess for possible ischemia. If this is grossly abnormal, she may require diagnostic coronary angiogram. 3. Thank you very much for the opportunity to participate in the cardiac care of your patient. She will follow-up with Dr. Jaffe tomorrow going forward. Code Visit Inpatient E&M: 51573 Init Hosp L2
--- NOTE | 2019-07-14 11:32 | ECHOD_ITS ---
Reason For Study: Afib, Aflutter Procedure This was a 2D Doppler, Color Flow transthoracic echocardiogram. Exam performed portable in patient room. Left Ventricle Normal size and thickness. The estimated ejection fraction is 65 %. Unable to assess diastolic dysfunction due to arrhythmia. No regional wall motion abnormalities noted. Right Ventricle Mildly dilated right ventricle. A moderator band is seen in the right ventricle. Normal systolic function. Atria The left atrium is mildly enlarged. The right atrium is mildly enlarged. Normal atrial septum. Mitral Valve The mitral valve is structurally normal. No prolapse or stenosis seen. Trivial mitral valve insufficiency. Tricuspid Valve Normal tricuspid valve. Mild (1+) tricuspid valve insufficiency. Right ventricular systolic pressure estimated to be 45 mmHg. Mild pulmonary hypertension. Aortic Valve Trisinus/trileaflet aortic valve. Mild diffuse aortic valve thickening. Pulmonic Valve Normal pulmonic valve. Great Vessels Normal aortic root. Normal arch. Normal inferior vena cava. Inferior vena cava collapse with sniff. Pericardium/Pleural No pericardial effusion. MMode/2D Measurements & Calculations LVIDd: 4.2 cm IVSd: 1.1 cm Ao root diam: 3.1 cm LVIDs: 3.0 cm LVPWd: 1.1 cm RVDd: 3.8 cm FS: 29.0 % LAV(MOD-bp): 65.5 ml LA A4 area: 21.8 cm2 RA A4 area: 19.6 cm2 LAV(MOD-bp) Indexed: 32.6 ml/m2 LAV(MOD-sp2): 62.9 ml LAV(MOD-sp4): 67.4 ml Doppler Measurements & Calculations MV E max nik: 116.6 cm/sec Lat Peak E' Nik: 9.0 cm/sec Med Peak E' Nik: 10.3 cm/sec MV A max nik: 29.5 cm/sec E/E' lat: 13.0 E/E' med: 11.3 MV E/A: 3.9 Ao V2 max: 173.0 cm/sec LV V1 max: 120.7 cm/sec PA V2 max: 94.4 cm/sec Ao max P.0 mmHg LV V1 max P.9 mmHg Ao V2 mean: 121.9 cm/sec Ao mean P.5 mmHg Ao V2 VTI: 35.6 cm TR max nik: 270.0 cm/sec TR max P.2 mmHg Interpretation Summary The estimated ejection fraction is 65 %. Unable to assess diastolic dysfunction due to arrhythmia. Mildly dilated right ventricle. The left atrium is mildly enlarged. Mild (1+) tricuspid valve insufficiency. Right ventricular systolic pressure estimated to be 45 mmHg. Mild pulmonary hypertension. Trivial mitral valve insufficiency. Compared to echo report dated 09/08/2018, LV function has remained the same, pt now appears to be in atrial fibrillation and RVSP has increased from 35% to 45% Ordering Physician: Antonio Martini Referring Physician: Tor Lucia Performed By: Callum Bailon RCS
[2019-07-14] MEDS: Amiodarone 200 MG Tablet 400 MG PO ×2 (15:36→20:17)
[2019-07-14] MEDS: Metoprolol Tartrate 25 MG Tablet PO (20:17)
[2019-07-14] MEDS: Zolpidem Tartrate 5 MG Tablet PO (21:21)
[2019-07-14] MEDS: busPIRone 5 MG Tablet 7.5 MG PO (21:21)
[2019-07-15] VITALS (40 sets, daily range): BP systolic 94–130; BP diastolic 57–91; PULSE 70–106; RESP 16–26; TEMP 36.4–37; O2SAT 93–100
[2019-07-15] MEDS: Amiodarone 200 MG Tablet 400 MG PO (05:04)
[2019-07-15] MEDS: Acetaminophen 325 MG Tablet 650 MG PO ×2 (05:04→16:04)
[2019-07-15 06:39] LABS: Absolute Lymphocyte Count 1.21 X10^3/uL (0.83-4.51); Absolute Neutrophil Count 7.8 X10^3/uL (2.0-7.7); Basophil# 0.03 X10^3/uL; Basophil% 0.3 % (0-1); Eosinophil# 0.25 X10^3/uL; Eosinophils% 2.5 % (0-5); Hematocrit 31.8 % (37-47); Hemoglobin 9.6 g/dL (12.0-15.0); Lymphocyte # 1.21 X10^3/ul (4.0); Mean Corp Hgb Conc 30.2 g/dL (32-36); Mean Corpuscular Volume 89.3 fL (81-99); Monocyte# 0.77 X10^3/uL; Monocyte% 7.7 % (0-10); NRBC Flagged by Analyzer 0 % (0-5); Neutrophil # 7.78 X10^3/uL (2.7-7.7); Neutrophil % 77.3 % (47-70); Platelet Count 199 K/mm3 (150-450); RBC Distribution Width CV 18.6 % (11.6-14.6); RBC Distribution Width SD 61.1 fl (35.1-43.9); Red Blood Count 3.56 M/mm3 (4.2-5.4); White Blood Count 10.1 K/mm3 (4.4-11.0)
[2019-07-15 06:48] LABS: International Normalized Ratio 2.2; Prothrombin Time (Protime)PT. 24.4 SECONDS (11.7-14.9)
[2019-07-15 07:01] LABS: Albumin, Serum 2.6 g/dL (3.2-5.0); BUN 15 mg/dL (7-18); BUN/Creat Ratio 23.3 RATIO (10-20); Calcium,Total 8.5 mg/dL (8.5-10.1); Chloride 101 mmol/L (98-107); Creatinine, Serum 0.64 mg/dL (0.55-1.02); EST Glomerular Filtration Rate 95 mL/min (>60); Est Glom Filt Rate - Afr Amer 115 mL/min (>60); Estimated Creatinine Clearance 47.27 ml/min; Glucose 102 mg/dL (74-106); Phosphorus 4.5 mg/dL (2.5-4.9); Potassium 3.9 mmol/L (3.5-5.1); Sodium Level 139 mmol/L (136-145)
[2019-07-15] MEDS: Budesonide Respules 0.5 MG/2 ML AMPUL.NEB. INHALATION ×2 (07:46→18:57)
[2019-07-15] MEDS: Ipratropium/Albuterol Sulfate 3 ML AMPUL.NEB INHALATION ×3 (07:46→18:55)
--- NOTE | 2019-07-15 08:33 | PCM.PN.PUL ---
Patient Problems: Active and Suspected Problems (Last Updated 07/12/19 @ 21:39 by Ailyn Ramirez MD) Atrial fibrillation with RVR (Acute) Leukocytosis (Acute) Lactic acidosis (Acute) Subjective: The patient was seen and examined at the bedside this morning. Events from the last 24 hours have been reviewed. The patient is currently afebrile, hemodynamically stable and maintaining appropriate oxygen saturations on 2 L/min via nasal cannula. The patient is currently documented to be overall net +4.9 L for the hospital admission. Objective: The patient's most recent lab work, culture data and imaging studies have all been personally reviewed. Infectious work-up including respiratory viral panel, along with blood and urine cultures have been unrevealing to date. Surface echocardiogram revealed normal LV size and thickness with an ejection fraction of 65%. Pulmonary artery systolic pressure was estimated to be 45 mmHg. - Physical Exam Vitals/I&O's: Vital Signs Temp Pulse Resp BP Pulse Ox 97.6 F L 82 19 H 117/65 96 07/15/19 06:00 07/15/19 07:16 07/15/19 06:00 07/15/19 06:00 07/15/19 06:00 Oxygen Flow Rate (L/min) 2 Oxygen Delivery Method Nasal Cannula Weight: 185 lb 10.067 oz Body Mass Index (BMI) 29.9 Intake and Output for Last 24 Hours 07/13/19 07/14/19 07/15/19 23:59 23:59 23:59 Intake Total 4454.5 / 4454.5 1485.25 / 1494.00 295.00 / 295.00 Output Total 400 / 400 960 / 960 Balance 4054.5 / 4054.5 525.25 / 534.00 295.00 / 295.00 General: Alert, Cooperative, No apparent distress HEENT: Atraumatic, PERRLA, Normocephalic Oral: No Gingival or Mucosal Lesions/ Ulcerations Neck: Supple, No Nodes, Trachea Midline Lungs: No rhonchi, No wheeze, No rales, Diminished Cardiovascular: Normal S1, Normal S2, No murmurs, Irregular Rate Abdomen: Bowel Sounds Present, Soft, Non Tender Extremities: No clubbing, No cyanosis, Edema Skin: No breakdown Musculoskeletal: No Tenderness to Palpation of Joints or Extremities Lymphatic: No Cervical, Supraclavicular, or Inguinal Adenopathy Neurological: Neuro grossly intact Psych/Mental Status: Flat Affect Labs (Last 48 Hours) 07/14/19 07/14/19 07/14/19 06:34 06:34 06:34 WBC 13.1 H RBC 3.58 L Hgb 9.9 L Hct 32.5 L MCV 90.8 MCH 27.7 MCHC 30.5 L RDW Std Deviation 63.7 H RDW Coeff of Laura 18.9 H Plt Count 204 MPV 12.5 H Immature Gran % (Auto) 0.400 Neut % (Auto) 79.5 H Lymph % (Auto) 11.9 L [place] % (Auto) 6.7 Eos % (Auto) 1.2 Baso % (Auto) 0.3 Absolute Neuts (auto) 10.4 H Absolute Lymphs (auto) 1.55 Nucleated RBC % 0 PT 25.7 H INR 2.3 Sodium 142 Potassium 3.8 Chloride 104 Carbon Dioxide 35.0 H Anion Gap 3 L BUN 13 Creatinine 0.64 Estim Creat Clear Calc 47.27 Est GFR (MDRD) Af Amer 117 Est GFR (MDRD) Non-Af 97 BUN/Creatinine Ratio 20.4 H Glucose 93 Calcium 8.5 Phosphorus Total Bilirubin 1.50 H AST 16 ALT 28 Alkaline Phosphatase 120 H Total Protein 6.5 Albumin 2.6 L Globulin 3.9 Albumin/Globulin Ratio 0.7 L 07/15/19 07/15/19 07/15/19 06:10 06:10 06:10 WBC 10.1 RBC 3.56 L Hgb 9.6 L Hct 31.8 L MCV 89.3 MCH 27.0 MCHC 30.2 L RDW Std Deviation 61.1 H RDW Coeff of Laura 18.6 H Plt Count 199 MPV 12.0 Immature Gran % (Auto) 0.200 Neut % (Auto) 77.3 H Lymph % (Auto) 12.0 L [place] % (Auto) 7.7 Eos % (Auto) 2.5 Baso % (Auto) 0.3 Absolute Neuts (auto) 7.8 H Absolute Lymphs (auto) 1.21 Nucleated RBC % 0 PT 24.4 H INR 2.2 Sodium 139 Potassium 3.9 Chloride 101 Carbon Dioxide 36.0 H Anion Gap BUN 15 Creatinine 0.64 Estim Creat Clear Calc 47.27 Est GFR (MDRD) Af Amer 115 Est GFR (MDRD) Non-Af 95 BUN/Creatinine Ratio 23.3 H Glucose 102 Calcium 8.5 Phosphorus 4.5 Total Bilirubin AST ALT Alkaline Phosphatase Total Protein Albumin 2.6 L Globulin Albumin/Globulin Ratio Microbiology 07/12/19 21:34 Blood Culture (Wb) - Anticubital Left Blood Culture - Preliminary No growth in 48 hours. 07/12/19 21:40 Blood Culture (Wb) - Right Forearm Blood Culture - Preliminary No growth in 48 hours. 07/13/19 06:45 Mucosa - Nasopharyngeal Respiratory Panel (PCR) - Final Clinical Impression(s) from Imaging Studies Chest X-Ray 07/12/19 20:00 IMPRESSION: Mild pulmonary vascular congestion. Electronically Signed: Evgeny Spencer, at 20:23 EST Tel , Service support , Current Medications Acetaminophen (Tylenol) 650 mg PO Q6H PRN PRN PRN Reason: Pain Score 1-10/Temp > 100.7 F Last Admin: 07/15/19 05:04 Dose: 650 mg Documented by: Albuterol Sulfate (Ventolin Aerosols) 2.5 mg INHALATION Q2H PRN PRN PRN Reason: Shortness of breath, wheezing Last Admin: 07/14/19 07:46 Dose: 2.5 mg Documented by: Albuterol/Ipratropium (Duoneb) 3 ml INHALATION Q6H.RT [facility] Last Admin: 07/15/19 07:46 Dose: 3 ml Documented by: Amiodarone HCl (Cordarone) 400 mg PO TID [facility] Last Admin: 07/15/19 05:04 Dose: 400 mg Documented by: Budesonide (Pulmicort Aerosol) 0.5 mg INHALATION BID.RT [facility] Last Admin: 07/15/19 07:46 Dose: 0.5 mg Documented by: Buspirone HCl (Buspar) 7.5 mg PO QHS [facility] Last Admin: 07/14/19 21:21 Dose: 7.5 mg Documented by: Citalopram Hydrobromide (Celexa) 40 mg PO DAILY [facility] Last Admin: 07/14/19 08:27 Dose: 40 mg Documented by: Ferrous Sulfate (Ferrous Sulfate) 325 mg PO BIDCM [facility] Last Admin: 07/14/19 15:35 Dose: 325 mg Documented by: Furosemide (Lasix) 20 mg IV BID@1000,1800 [facility] Last Admin: 07/14/19 17:22 Dose: 20 mg Documented by: Sodium Chloride () 250 mls @ 15 mls/hr IV .[id number] PRN PRN Reason: Saline Flush Last Infusion: 07/14/19 03:00 Dose: 0 mls/hr Documented by: Sodium Chloride () 250 mls @ 15 mls/hr IV .[id number] PRN PRN Reason: Additional IVPB Infusion Piperacillin Sod/Tazobactam (Sod 3.375 gm/ Sodium Chloride) 50 mls @ 12.5 mls/hr IV Q8 [facility] Last Admin: 07/15/19 05:04 Dose: 12.5 mls/hr Documented by: Sodium Chloride () 250 mls @ 15 mls/hr IV .[id number] PRN PRN Reason: Saline Flush Sodium Chloride () 250 mls @ 15 mls/hr IV .[id number] PRN PRN Reason: Additional IVPB Infusion Diltiazem HCl 125 mg/ Dextrose 125 mls @ 5 mls/hr IV .Q25H [facility]; Protocol Last Admin: 07/15/19 08:25 Dose: 15 mg/hr, 15 mls/hr Documented by: Melatonin (Melatonin) 1.5 mg PO QHS [facility] Last Admin: 07/14/19 21:17 Dose: Not Given Documented by: Metoprolol Tartrate (Lopressor (Beta [place])) 25 mg PO BID [facility] Last Admin: 07/14/19 20:17 Dose: 25 mg Documented by: Ondansetron HCl (Zofran) 4 mg IV Q8H PRN PRN PRN Reason: NAUSEA/VOMITING Pantoprazole Sodium (Protonix) 20 mg PO DAILY [facility] Last Admin: 07/14/19 08:27 Dose: 20 mg Documented by: Polyethylene Glycol (Miralax) 17 gm PO DAILY [facility] Last Admin: 07/14/19 08:27 Dose: 17 gm Documented by: Potassium Chloride (K-Dur) 20 meq PO BIDCM [facility] Last Admin: 07/14/19 15:36 Dose: 20 meq Documented by: Senna/Docusate Sodium (Senokot-S, Caterina-Colace) 2 tablet PO BID PRN PRN PRN Reason: Constipation Sodium Chloride () 10 - 40 ml IV UD PRN PRN Reason: SALINE FLUSH Last Admin: 07/14/19 05:11 Dose: 20 ml Documented by: Sucralfate (Carafate) 1 gm PO 1HR_ACHS PRN PRN Reason: GI UPSET Warfarin Sodium (Coumadin (Pbkc)) 3 mg PO SuMoTuWeThSa@1700 [facility] Last Admin: 07/14/19 15:36 Dose: 3 mg Documented by: Warfarin Sodium (Coumadin (Pbkc)) 4 mg PO Fr@1700 [facility] Zolpidem Tartrate (Ambien (Generic)) 5 mg PO QHS PRN PRN PRN Reason: INSOMNIA Last Admin: 07/14/19 21:21 Dose: 5 mg Documented by: Medical Necessity - Tobacco Use Smoking Status: Former smoker Assessment/Plan All Active Problems (Last Updated 07/12/19 @ 21:39 by Ailyn Ramirez MD) Atrial fibrillation with RVR (Acute) Leukocytosis (Acute) Lactic acidosis (Acute) RECOMMENDATIONS: 1. Antibiotics can likely be discontinued, given negative infectious work-up. 2. Continue diuretic therapy. 3. Continue rate/rhythm control strategy per cardiology recommendations. 4. Wean supplemental oxygen to maintain saturations at or above 90%. 5. Encourage incentive spirometer use and mobilize patient as tolerated. 6. Continue bronchodilators as ordered. IMPRESSIONS: 1. Acute on chronic hypoxic respiratory insufficiency secondary to A. fib with RVR and probable acute diastolic CHF Low clinical index of suspicion for underlying pulmonary infectious process. The patient appeared to have findings more consistent with pulmonary vascular congestion in the setting of atrial fibrillation with rapid ventricular rate. Therefore, given the patient's negative infectious work-up, antibiotics can be discontinued from my perspective. Continue bronchodilators as ordered. Wean supplemental oxygen as tolerated. Continue diuretic therapy along with rate/rhythm control strategy per cardiology recommendations. 2. Reported COPD/chronic hypoxia respiratory failure The patient has a known history of chronic obstructive pulmonary disease and is currently followed by Dr. Chavarria at [facility]. Prior pulmonary function studies from January 2017 did reveal evidence of severe obstructive lung disease with an FEV1 of 31% of predicted. The patient is currently on scheduled duo nebs and budesonide as an outpatient. She does have a baseline 2 L/min supplemental oxygen requirement at all times. Per documentation from the patient's pulmonary provider's office, she does have a history of recurrent COPD exacerbations. She does have a smoking history of 0.5 packs/day x 20 years, having quit completely in 2000. 3. Concern for underlying sleep apnea The patient endorses symptoms concerning for sleep disordered breathing, including nonrestorative sleep, daytime hypersomnolence and frequent napping. She has never undergone a formal diagnostic polysomnogram in the past. Given her underlying cardiac and pulmonary disease, she would be best served by having any potential sleep apnea treated. 4. Chronic anemia/history of DVT PE/depression/anxiety/hypertension Complicates care, management, recovery and prognosis. Continue home medications as indicated. This note was generated with [employer] dictation software. It may contain incorrect words, spelling, and punctuation that were not noted in checking the note before signing. Code Visit Inpatient E&M: 94770 Subs Hosp L2
[2019-07-15] MEDS: Ferrous Sulfate 325 MG Tablet PO ×2 (09:01→16:04)
[2019-07-15] MEDS: Citalopram 40 MG TABLET PO (09:02)
[2019-07-15] MEDS: Furosemide 20 MG/2 ML VIAL IV ×2 (09:02→17:41)
[2019-07-15] MEDS: Metoprolol Tartrate 25 MG Tablet PO (09:06)
[2019-07-15] MEDS: Pantoprazole Sodium 20 MG Tablet PO (09:07)
[2019-07-15] MEDS: Polyethylene Glycol 3350 17 GM PACKET PO (09:07)
--- NOTE | 2019-07-15 09:26 | PN_ITS ---
Patient Problems: Active and Suspected Problems (Last Updated 07/12/19 @ 21:39 by Ailyn Ramirez MD) Atrial fibrillation with RVR (Acute) Leukocytosis (Acute) Lactic acidosis (Acute) Reason for Visit: Septic shock with pneumonia, acute on chronic hypoxic respiratory failure Objective: Patient is mild short of breath. Patient is DNR CC arrest. History of heart failure and COPD. Vitals/I&O's: Vital Signs Temp Pulse Resp BP Pulse Ox 97.6 F L 85 16 117/65 98 07/15/19 06:00 07/15/19 09:06 07/15/19 07:43 07/15/19 06:00 07/15/19 07:43 Oxygen Flow Rate (L/min) 2 Oxygen Delivery Method Nasal Cannula Weight: 185 lb 10.067 oz Body Mass Index (BMI) 29.9 Intake and Output for Last 24 Hours 07/13/19 07/14/19 07/15/19 23:59 23:59 23:59 Intake Total 4454.5 / 4454.5 1485.25 / 1494.00 345.00 / 345.00 Output Total 400 / 400 960 / 960 Balance 4054.5 / 4054.5 525.25 / 534.00 345.00 / 345.00 General: Oriented x3, Cooperative, Lethargic HEENT: Atraumatic, PERRLA, EOMI, Normocephalic Oral: Dry Mucosa Neck: Supple, No JVD, Negative Carotid Bruits Lungs: Diminished - Entry is diminished in all lung [place], Rhonchi, Short of Breath Cardiovascular: Regular rate, Regular Rhythm, Normal S1, Normal S2, No murmurs Abdomen: Bowel Sounds Present, Soft, Non Tender, Non-Distended Extremities: Edema Skin: No rashes, No breakdown Musculoskeletal: Arthritic Changes Microbiology Past 72 Hours 07/12/19 21:34 Blood Culture (Wb) - Anticubital Left Blood Culture - Preliminary No growth in 48 hours. 07/12/19 21:40 Blood Culture (Wb) - Right Forearm Blood Culture - Preliminary No growth in 48 hours. 07/13/19 06:45 Mucosa - Nasopharyngeal Respiratory Panel (PCR) - Final 07/12/19 20:10 Mucosa - Nasopharyngeal Influenza Types A,B Direct FA (ROMI) - Final Laboratory Results 07/15/19 06:10: WBC 10.1, RBC 3.56 L, Hgb 9.6 L, Hct 31.8 L, MCV 89.3, MCH 27.0, MCHC 30.2 L, RDW Std Deviation 61.1 H, RDW Coeff of Laura 18.6 H, Plt Count 199, MPV 12.0, Immature Gran % (Auto) 0.200, Neut % (Auto) 77.3 H, Lymph % (Auto) 12.0 L, [place] % (Auto) 7.7, Eos % (Auto) 2.5, Baso % (Auto) 0.3, Absolute Neuts (auto) 7.8 H, Absolute Lymphs (auto) 1.21, Nucleated RBC % 0 07/15/19 06:10: PT 24.4 H, INR 2.2 07/15/19 06:10: Sodium 139, Potassium 3.9, Chloride 101, Carbon Dioxide 36.0 H, BUN 15, Creatinine 0.64, Estim Creat Clear Calc 47.27, Est GFR (MDRD) Af Amer 115, Est GFR (MDRD) Non-Af 95, BUN/Creatinine Ratio 23.3 H, Glucose 102, Calcium 8.5, Phosphorus 4.5, Albumin 2.6 L Current Medications Acetaminophen (Tylenol) 650 mg PO Q6H PRN PRN PRN Reason: Pain Score 1-10/Temp > 100.7 F Last Admin: 07/15/19 05:04 Dose: 650 mg Documented by: Albuterol Sulfate (Ventolin Aerosols) 2.5 mg INHALATION Q2H PRN PRN PRN Reason: Shortness of breath, wheezing Last Admin: 07/14/19 07:46 Dose: 2.5 mg Documented by: Albuterol/Ipratropium (Duoneb) 3 ml INHALATION Q6H.RT [facility] Last Admin: 07/15/19 07:46 Dose: 3 ml Documented by: Amiodarone HCl (Cordarone) 400 mg PO TID [facility] Last Admin: 07/15/19 05:04 Dose: 400 mg Documented by: Budesonide (Pulmicort Aerosol) 0.5 mg INHALATION BID.RT [facility] Last Admin: 07/15/19 07:46 Dose: 0.5 mg Documented by: Buspirone HCl (Buspar) 7.5 mg PO QHS [facility] Last Admin: 07/14/19 21:21 Dose: 7.5 mg Documented by: Citalopram Hydrobromide (Celexa) 40 mg PO DAILY [facility] Last Admin: 07/15/19 09:02 Dose: 40 mg Documented by: Ferrous Sulfate (Ferrous Sulfate) 325 mg PO BIDCM [facility] Last Admin: 07/15/19 09:01 Dose: 325 mg Documented by: Furosemide (Lasix) 20 mg IV BID@1000,1800 [facility] Last Admin: 07/15/19 09:02 Dose: 20 mg Documented by: Sodium Chloride () 250 mls @ 15 mls/hr IV .[id number] PRN PRN Reason: Saline Flush Last Infusion: 07/14/19 03:00 Dose: 0 mls/hr Documented by: Sodium Chloride () 250 mls @ 15 mls/hr IV .[id number] PRN PRN Reason: Additional IVPB Infusion Piperacillin Sod/Tazobactam (Sod 3.375 gm/ Sodium Chloride) 50 mls @ 12.5 mls/hr IV Q8 [facility] Last Infusion: 07/15/19 09:07 Dose: Infused Documented by: Sodium Chloride () 250 mls @ 15 mls/hr IV .[id number] PRN PRN Reason: Saline Flush Sodium Chloride () 250 mls @ 15 mls/hr IV .[id number] PRN PRN Reason: Additional IVPB Infusion Diltiazem HCl 125 mg/ Dextrose 125 mls @ 5 mls/hr IV .Q25H [facility]; Protocol Last Admin: 07/15/19 08:25 Dose: 15 mg/hr, 15 mls/hr Documented by: Melatonin (Melatonin) 1.5 mg PO QHS [facility] Last Admin: 07/14/19 21:17 Dose: Not Given Documented by: Metoprolol Tartrate (Lopressor (Beta [place])) 25 mg PO BID [facility] Last Admin: 07/15/19 09:06 Dose: 25 mg Documented by: Ondansetron HCl (Zofran) 4 mg IV Q8H PRN PRN PRN Reason: NAUSEA/VOMITING Pantoprazole Sodium (Protonix) 20 mg PO DAILY [facility] Last Admin: 07/15/19 09:07 Dose: 20 mg Documented by: Polyethylene Glycol (Miralax) 17 gm PO DAILY [facility] Last Admin: 07/15/19 09:07 Dose: 17 gm Documented by: Potassium Chloride (K-Dur) 20 meq PO BIDCM [facility] Last Admin: 07/15/19 09:02 Dose: 20 meq Documented by: Senna/Docusate Sodium (Senokot-S, Caterina-Colace) 2 tablet PO BID PRN PRN PRN Reason: Constipation Sodium Chloride () 10 - 40 ml IV UD PRN PRN Reason: SALINE FLUSH Last Admin: 07/14/19 05:11 Dose: 20 ml Documented by: Sucralfate (Carafate) 1 gm PO 1HR_ACHS PRN PRN Reason: GI UPSET Warfarin Sodium (Coumadin (Pbkc)) 3 mg PO SuMoTuWeThSa@1700 [facility] Last Admin: 07/14/19 15:36 Dose: 3 mg Documented by: Warfarin Sodium (Coumadin (Pbkc)) 4 mg PO Fr@1700 [facility] Zolpidem Tartrate (Ambien (Generic)) 5 mg PO QHS PRN PRN PRN Reason: INSOMNIA Last Admin: 07/14/19 21:21 Dose: 5 mg Documented by: STROKE Vital Signs/Narrative: Vital Signs Temp Pulse Resp BP Pulse Ox 07/15/19 09:06 85 07/15/19 07:43 81 16 98 07/15/19 07:16 82 07/15/19 06:00 97.6 F L 82 19 H 117/65 96 Medical Necessity - Tobacco Use Smoking Status: Former smoker Assessment/Plan All Active Problems (Last Updated 07/12/19 @ 21:39 by Ailyn Ramirez MD) Atrial fibrillation with RVR (Acute) Leukocytosis (Acute) Lactic acidosis (Acute) 73-year-old female with a past medical history of chronic atrial fibrillation, chronic diastolic CHF, chronic hypoxic respiratory failure who comes in with pr ogressive shortness of breath and cough. 1. Acute on chronic respiratory failure secondary to acute on chronic diastolic CHF/A. fib with RVR: Currently on 2 L of oxygen. 2. Acute on chronic diastolic CHF Continue on on Lasix 20 mg IV twice daily. ECHO Was done on 07/15/2019. The estimated ejection fraction is 65 %. Unable to assess diastolic dysfunction due to arrhythmia. Mildly dilated right ventricle. The left atrium is mildly enlarged. Mild (1+) tricuspid valve insufficiency. Right ventricular systolic pressure estimated to be 45 mmHg. Mild pulmonary hypertension. Trivial mitral valve insufficiency. Compared to echo report dated 09/08/2018, LV function has remained the same, pt now appears to be in atrial fibrillation and RVSP has increased from 35% to 45% 3. A. fib with RVR, rate controlled, resumed on Cardizem, continue metoprolol per cardiology recommendations INR is therapeutic. Continue Coumadin 4. Septic shock secondary to probable pneumonia, respiratory panel is negative, blood cultures x2- for more than 48 hours. Urine culture negative. Patient is empirically on IV Zosyn. 5. Elevated lactic acid secondary to hypoxia versus septic shock Lactic acid improved. 6. COPD with chronic respiratory failure, on 2 L home oxygen, no signs of acute exacerbation 7. Chronic iron deficiency anemia, on p.o. iron 8. Hypertension, controlled, will switch to metoprolol 50 mg twice daily 9. DVT PPx- On warfarin, INR is therapeutic Clinical Impression(s) from Imaging Studies Chest X-Ray 07/12/19 20:00 IMPRESSION: Mild pulmonary vascular congestion. Microbiology Past 72 Hours 07/13/19 00:20 Urine Catheter - Catheter Urine Culture - Preliminary Culture exhibits no growth. 07/12/19 21:34 Blood Culture (Wb) - Anticubital Left Blood Culture - Preliminary No growth in 48 hours. 07/12/19 21:40 Blood Culture (Wb) - Right Forearm Blood Culture - Preliminary No growth in 48 hours. 07/13/19 06:45 Mucosa - Nasopharyngeal Respiratory Panel (PCR) - Final 07/12/19 20:10 Mucosa - Nasopharyngeal Influenza Types A,B Direct FA (ROMI) - Final Laboratory Results 07/15/19 06:10: WBC 10.1, RBC 3.56 L, Hgb 9.6 L, Hct 31.8 L, MCV 89.3, MCH 27.0, MCHC 30.2 L, RDW Std Deviation 61.1 H, RDW Coeff of Laura 18.6 H, Plt Count 199, MPV 12.0, Immature Gran % (Auto) 0.200, Neut % (Auto) 77.3 H, Lymph % (Auto) 12.0 L, [place] % (Auto) 7.7, Eos % (Auto) 2.5, Baso % (Auto) 0.3, Absolute Neuts (auto) 7.8 H, Absolute Lymphs (auto) 1.21, Nucleated RBC % 0 07/15/19 06:10: PT 24.4 H, INR 2.2 07/15/19 06:10: Sodium 139, Potassium 3.9, Chloride 101, Carbon Dioxide 36.0 H, BUN 15, Creatinine 0.64, Estim Creat Clear Calc 47.27, Est GFR (MDRD) Af Amer 115, Est GFR (MDRD) Non-Af 95, BUN/Creatinine Ratio 23.3 H, Glucose 102, Calcium 8.5, Phosphorus 4.5, Albumin 2.6 L Code Visit Inpatient E&M: 47039 Subs Hosp L3
--- NOTE | 2019-07-15 10:37 | PCM.PN.CARD ---
Subjectve: The patient is awake and alert. She denies ongoing chest discomfort. She has chronic shortness of breath and dyspnea. She states she occasionally senses her heart rate going faster. Objective: Vital Signs Temp Pulse Resp BP Pulse Ox 97.6 F L 85 16 117/65 98 07/15/19 06:00 07/15/19 09:06 07/15/19 07:43 07/15/19 06:00 07/15/19 07:43 Oxygen Flow Rate (L/min) 2 Oxygen Delivery Method Nasal Cannula Weight: 185 lb 10.067 oz Body Mass Index (BMI) 29.9 Intake and Output for Last 24 Hours 07/13/19 07/14/19 07/15/19 23:59 23:59 23:59 Intake Total 4454.5 / 4454.5 1485.25 / 1494.00 345.00 / 345.00 Output Total 400 / 400 960 / 960 Balance 4054.5 / 4054.5 525.25 / 534.00 345.00 / 345.00 General: Awake, Alert, Oriented x 3, Cooperative, No Acute Distress HEENT: Atraumatic, Normocephalic, PERRL, EOMI, Sclera Non Icteric Oral: Moist Mucosa Neck: Supple, Good ROM, No JVD Lungs: Diminished Manuel Bases Cardiovascular: Irregular Rhythm, Normal S1, Normal S2 Abdomen: Bowel Sounds Present, Soft, Non Tender Extremities: No edema Psych/Mental Status: Appropriate 07/15/19 06:10: WBC 10.1, RBC 3.56 L, Hgb 9.6 L, Hct 31.8 L, MCV 89.3, MCH 27.0, MCHC 30.2 L, Plt Count 199, MPV 12.0, Immature Gran % (Auto) 0.200, Neut % (Auto) 77.3 H, Lymph % (Auto) 12.0 L, [place] % (Auto) 7.7, Eos % (Auto) 2.5, Baso % (Auto) 0.3, Absolute Neuts (auto) 7.8 H, Nucleated RBC % 0 07/15/19 06:10: PT 24.4 H, INR 2.2 07/15/19 06:10: Sodium 139, Potassium 3.9, Chloride 101, Carbon Dioxide 36.0 H, BUN 15, Creatinine 0.64, Est GFR (MDRD) Af Amer 115, Est GFR (MDRD) Non-Af 95, BUN/Creatinine Ratio 23.3 H, Glucose 102, Calcium 8.5, Phosphorus 4.5 Rhythm: Atrial fibrillation Medical Necessity - Tobacco Use Smoking Status: Former smoker Assessment/Plan 1. Atrial fibrillation The present time she continues in atrial fibrillation. She will continue medical management with rate control therapy, an attempt at antiarrhythmic therapy, and anticoagulant therapy. Her medications and doses will be adjusted to try and bring her rate under better control. Hopefully as her underlying pulmonary disease process improves her rate will come under better control as well. 2. CAD The patient has reportedly undergone previous evaluation for this in the past with no findings of angiographically significant CAD. She can continue medical management as deemed appropriate. 3. Diastolic dysfunction The patient has been reported as having a history of diastolic dysfunction. She will continue medical management as deemed appropriate. 4. Hypertension The patient's blood pressure will be monitored and her medications can be adjusted as needed. 5. COPD The patient will continue evaluation care per internal medicine and pulmonology/critical care medicine as deemed appropriate. This note was generated using a voice recognition system and there may be incorrect words, spelling or punctuation that were not noted when reviewing the office note prior to saving.
--- NOTE | 2019-07-15 11:31 | NURSING ---
VS taken, not documented on med titration due to bag of cardizem completed and new bag hung.
--- NOTE | 2019-07-15 12:10 | CASEMGMT ---
Pt had told admitting RN has LW/POA forms but declined to bring them in. SW spoke w/Cornelia in admissions at [place], she checked and pt does not have the forms on file. Cornelia states when pt returns she will speak w/pt about completing LW/POA forms. TRINI Gomez
[2019-07-15] MEDS: Amiodarone 200 MG Tablet PO ×2 (16:03→21:26)
[2019-07-15] MEDS: Metoprolol Tartrate 50 MG Tablet PO (21:26)
[2019-07-15] MEDS: busPIRone 5 MG Tablet 7.5 MG PO (21:27)
[2019-07-15] MEDS: Zolpidem Tartrate 5 MG Tablet PO (21:32)
[2019-07-16] VITALS (17 sets, daily range): BP systolic 92–123; BP diastolic 54–77; PULSE 72–102; RESP 16–22; TEMP 36.7–36.9; O2SAT 73–100
[2019-07-16] MEDS: Albuterol 2.5 MG/3 ML VIAL.NEB. INHALATION (02:15)
[2019-07-16] MEDS: Amiodarone 200 MG Tablet PO ×2 (05:12→14:29)
[2019-07-16] MEDS: Budesonide Respules 0.5 MG/2 ML AMPUL.NEB. INHALATION (07:34)
[2019-07-16] MEDS: Ipratropium/Albuterol Sulfate 3 ML AMPUL.NEB INHALATION ×2 (07:34→13:17)
--- NOTE | 2019-07-16 08:04 | PCM.PN.PUL ---
Subjective: The patient was seen and examined at the bedside this morning. Events from the last 24 hours have been reviewed. The patient is currently afebrile, hemodynamically stable and maintaining appropriate oxygen saturations on 2 L/min via nasal cannula. The patient is currently documented to be overall net +5.3 L for the hospital admission. Serum bicarbonate level is elevated at 36. INR was noted to be 2.2 this morning. Objective: The patient's most recent lab work, culture data and imaging studies have all been personally reviewed. Infectious work-up including respiratory viral panel, along with blood and urine cultures have been unrevealing to date. Surface echocardiogram revealed normal LV size and thickness with an ejection fraction of 65%. Pulmonary artery systolic pressure was estimated to be 45 mmHg. - Physical Exam Vitals/I&O's: Vital Signs Temp Pulse Resp BP Pulse Ox 98.4 F 84 21 H 102/55 L 100 07/16/19 02:00 07/16/19 07:02 07/16/19 02:17 07/16/19 02:17 07/16/19 02:17 Oxygen Flow Rate (L/min) 2 Oxygen Delivery Method Nasal Cannula Weight: 181 lb 7.047 oz Body Mass Index (BMI) 29.9 Intake and Output for Last 24 Hours 07/14/19 07/15/19 07/16/19 23:59 23:59 23:59 Intake Total 1485.25 / 1494.00 1386.17 / 1666.17 446.50 / 446.50 Output Total 960 / 960 800 / 1100 300 / 300 Balance 525.25 / 534.00 586.17 / 566.17 146.50 / 146.50 General: Alert, Cooperative, No apparent distress HEENT: Atraumatic, PERRLA, Normocephalic Oral: No Gingival or Mucosal Lesions/ Ulcerations Neck: Supple, No Nodes, Trachea Midline Lungs: No rhonchi, No wheeze, No rales, Diminished Cardiovascular: Normal S1, Normal S2, No murmurs, Irregular Rate Abdomen: Bowel Sounds Present, Soft, Non Tender Extremities: No clubbing, No cyanosis, Edema Skin: No breakdown Musculoskeletal: No Tenderness to Palpation of Joints or Extremities, No Muscle Wasting Lymphatic: No Cervical, Supraclavicular, or Inguinal Adenopathy Neurological: Cranial nerves II-XII grossly intact, Neuro grossly intact Psych/Mental Status: Normal Affect, Appropriate Labs (Last 48 Hours) 07/15/19 07/15/19 07/15/19 06:10 06:10 06:10 WBC 10.1 RBC 3.56 L Hgb 9.6 L Hct 31.8 L MCV 89.3 MCH 27.0 MCHC 30.2 L RDW Std Deviation 61.1 H RDW Coeff of Laura 18.6 H Plt Count 199 MPV 12.0 Immature Gran % (Auto) 0.200 Neut % (Auto) 77.3 H Lymph % (Auto) 12.0 L [place] % (Auto) 7.7 Eos % (Auto) 2.5 Baso % (Auto) 0.3 Absolute Neuts (auto) 7.8 H Absolute Lymphs (auto) 1.21 Nucleated RBC % 0 PT 24.4 H INR 2.2 Sodium 139 Potassium 3.9 Chloride 101 Carbon Dioxide 36.0 H BUN 15 Creatinine 0.64 Estim Creat Clear Calc 47.27 Est GFR (MDRD) Af Amer 115 Est GFR (MDRD) Non-Af 95 BUN/Creatinine Ratio 23.3 H Glucose 102 Calcium 8.5 Phosphorus 4.5 Albumin 2.6 L Microbiology 07/13/19 00:20 Urine Catheter - Catheter Urine Culture - Final Culture exhibits no growth. 07/12/19 21:34 Blood Culture (Wb) - Anticubital Left Blood Culture - Preliminary No growth in 48 hours. 07/12/19 21:40 Blood Culture (Wb) - Right Forearm Blood Culture - Preliminary No growth in 48 hours. Clinical Impression(s) from Imaging Studies Chest X-Ray 07/12/19 20:00 IMPRESSION: Mild pulmonary vascular congestion. Electronically Signed: Evgeny Spencer, at 20:23 EST Tel , Service support , Current Medications Acetaminophen (Tylenol) 650 mg PO Q6H PRN PRN PRN Reason: Pain Score 1-10/Temp > 100.7 F Last Admin: 07/15/19 16:04 Dose: 650 mg Documented by: Albuterol Sulfate (Ventolin Aerosols) 2.5 mg INHALATION Q2H PRN PRN PRN Reason: Shortness of breath, wheezing Last Admin: 07/16/19 02:15 Dose: 2.5 mg Documented by: Albuterol/Ipratropium (Duoneb) 3 ml INHALATION Q6H.RT [facility] Last Admin: 07/16/19 07:34 Dose: 3 ml Documented by: Amiodarone HCl (Cordarone) 200 mg PO TID [facility] Last Admin: 07/16/19 05:12 Dose: 200 mg Documented by: Budesonide (Pulmicort Aerosol) 0.5 mg INHALATION BID.RT [facility] Last Admin: 07/16/19 07:34 Dose: 0.5 mg Documented by: Buspirone HCl (Buspar) 7.5 mg PO QHS [facility] Last Admin: 07/15/19 21:27 Dose: 7.5 mg Documented by: Citalopram Hydrobromide (Celexa) 40 mg PO DAILY [facility] Last Admin: 07/15/19 09:02 Dose: 40 mg Documented by: Ferrous Sulfate (Ferrous Sulfate) 325 mg PO BIDCM [facility] Last Admin: 07/15/19 16:04 Dose: 325 mg Documented by: Furosemide (Lasix) 20 mg IV BID@1000,1800 [facility] Last Admin: 07/15/19 17:41 Dose: 20 mg Documented by: Sodium Chloride () 250 mls @ 15 mls/hr IV .[id number] PRN PRN Reason: Saline Flush Last Infusion: 07/16/19 02:07 Dose: 0 mls/hr Documented by: Sodium Chloride () 250 mls @ 15 mls/hr IV .[id number] PRN PRN Reason: Additional IVPB Infusion Piperacillin Sod/Tazobactam (Sod 3.375 gm/ Sodium Chloride) 50 mls @ 12.5 mls/hr IV Q8 [facility] Last Admin: 07/16/19 05:11 Dose: 12.5 mls/hr Documented by: Sodium Chloride () 250 mls @ 15 mls/hr IV .[id number] PRN PRN Reason: Saline Flush Sodium Chloride () 250 mls @ 15 mls/hr IV .[id number] PRN PRN Reason: Additional IVPB Infusion Diltiazem HCl 125 mg/ Dextrose 125 mls @ 5 mls/hr IV .Q25H [facility]; Protocol Last Titration: 07/16/19 02:17 Dose: 0 mg/hr, 0 mls/hr Documented by: Melatonin (Melatonin) 1.5 mg PO QHS [facility] Last Admin: 07/15/19 21:31 Dose: Not Given Documented by: Metoprolol Tartrate (Lopressor (Beta [place])) 50 mg PO BID [facility] Last Admin: 07/15/19 21:26 Dose: 50 mg Documented by: Ondansetron HCl (Zofran) 4 mg IV Q8H PRN PRN PRN Reason: NAUSEA/VOMITING Pantoprazole Sodium (Protonix) 20 mg PO DAILY [facility] Last Admin: 07/15/19 09:07 Dose: 20 mg Documented by: Polyethylene Glycol (Miralax) 17 gm PO DAILY [facility] Last Admin: 07/15/19 09:07 Dose: 17 gm Documented by: Potassium Chloride (K-Dur) 20 meq PO BIDCM [facility] Last Admin: 07/15/19 16:04 Dose: 20 meq Documented by: Senna/Docusate Sodium (Senokot-S, Caterina-Colace) 2 tablet PO BID PRN PRN PRN Reason: Constipation Sodium Chloride () 10 - 40 ml IV UD PRN PRN Reason: SALINE FLUSH Last Admin: 07/14/19 05:11 Dose: 20 ml Documented by: Sucralfate (Carafate) 1 gm PO 1HR_ACHS PRN PRN Reason: GI UPSET Warfarin Sodium (Coumadin (Pbkc)) 3 mg PO SuMoTuWeThSa@1700 [facility] Last Admin: 07/15/19 16:03 Dose: 3 mg Documented by: Warfarin Sodium (Coumadin (Pbkc)) 4 mg PO Fr@1700 [facility] Zolpidem Tartrate (Ambien (Generic)) 5 mg PO QHS PRN PRN PRN Reason: INSOMNIA Last Admin: 07/15/19 21:32 Dose: 5 mg Documented by: Medical Necessity - Tobacco Use Smoking Status: Former smoker Assessment/Plan All Active Problems (Last Updated 07/12/19 @ 21:39 by Ailyn Ramirez MD) Atrial fibrillation with RVR (Acute) Leukocytosis (Acute) Lactic acidosis (Acute) RECOMMENDATIONS: 1. Antibiotics can likely be discontinued, given negative infectious work-up. 2. Transition to PO diuretic regimen. 3. Continue rate/rhythm control strategy per cardiology recommendations. 4. Wean supplemental oxygen to maintain saturations at or above 90%. 5. Encourage incentive spirometer use and mobilize patient as tolerated. 6. Continue bronchodilators as ordered. 7. Perform walking oximetry study prior to consideration for discharge home. 8. Close outpatient pulmonary follow-up is recommended. IMPRESSIONS: 1. Acute on chronic hypoxic respiratory insufficiency secondary to A. fib with RVR and probable acute diastolic CHF Low clinical index of suspicion for underlying pulmonary infectious process. The patient appeared to have findings more consistent with pulmonary vascular congestion in the setting of atrial fibrillation with rapid ventricular rate. Therefore, given the patient's negative infectious work-up, antibiotics can be discontinued from my perspective. Continue bronchodilators as ordered. Wean supplemental oxygen as tolerated. Continue diuretic therapy along with rate/rhythm control strategy per cardiology recommendations. 2. Reported COPD/chronic hypoxia respiratory failure The patient has a known history of chronic obstructive pulmonary disease and is currently followed by Dr. Chavarria at [facility]. Prior pulmonary function studies from January 2017 did reveal evidence of severe obstructive lung disease with an FEV1 of 31% of predicted. The patient is currently on scheduled duo nebs and budesonide as an outpatient. She does have a baseline 2 L/min supplemental oxygen requirement at all times. Per documentation from the patient's pulmonary provider's office, she does have a history of recurrent COPD exacerbations. She does have a smoking history of 0.5 packs/day x 20 years, having quit completely in 2000. 3. Concern for underlying sleep apnea The patient does have symptoms concerning for sleep disordered breathing, including nonrestorative sleep, daytime hypersomnolence and frequent napping. She has never undergone a formal diagnostic polysomnogram in the past. Given her underlying cardiac and pulmonary disease, she would be best served by having any potential sleep apnea treated. 4. Chronic anemia/history of DVT PE/depression/anxiety/hypertension Complicates care, management, recovery and prognosis. Continue home medications as indicated. This note was generated with [employer] dictation software. It may contain incorrect words, spelling, and punctuation that were not noted in checking the note before signing. Code Visit Inpatient E&M: 84799 Subs Hosp L2
[2019-07-16] MEDS: Furosemide 20 MG/2 ML VIAL IV (08:37)
[2019-07-16] MEDS: Ferrous Sulfate 325 MG Tablet PO ×2 (08:37→16:43)
[2019-07-16] MEDS: Metoprolol Tartrate 50 MG Tablet PO (08:37)
[2019-07-16] MEDS: 0.9% Saline Lock 10 ML Syringe IV (08:37)
[2019-07-16] MEDS: Citalopram 40 MG TABLET PO (08:38)
[2019-07-16] MEDS: Pantoprazole Sodium 20 MG Tablet PO (08:38)
[2019-07-16] MEDS: Polyethylene Glycol 3350 17 GM PACKET PO (08:45)
--- NOTE | 2019-07-16 11:45 | PCM.TXEXTCAR ---
- Diet 07/12/19 23:57 Diet: Cardiac/Low Cholesterol Food consistency:: Regular Liquid Consistency:: Regular/Thin - Routine Orders/Code Status Suppository Type: Dulcolax 10mg Suppository Frequency: Daily PRN Routine Lab Work: CBC, BMP - Weekly, INR - Weekly Code Status: DNC-A - Therapies Weight Bearing: Weight bearing as tolerated Extremity Affected:: Bilateral Lower Physical Therapy: Eval and Treat Occupational Therapy: Eval and Treat Speech Therapy: Eval and Treat - Allergies/Procedures Done in Hospital Allergies/Adverse Reactions: Allergies amlodipine besylate [From [facility]] Adverse Reaction (Verified 07/12/19 19:39) ANKLE AND LEG EDEMA RESOLVED OFF MED-PER PCP PAPERWORK codeine Adverse Reaction (Verified 07/12/19 19:39) MENTAL STATUS CHANGE lisinopril Adverse Reaction (Verified 07/12/19 19:39) COUGH - Type of Care/Length of Stay Estimated LOS: Convalescent Care Less Than 30 days Type of Care Needed: Skilled Rehab Potential: Good Prognosis: Good - Additional Orders/Day of Discharge Day of Discharge: 07/16/19 - Dietary and Speech Recommendations Dietitian Recommendations/Changes: Recommend cardiac/low cholesterol, low sodium diet w/ fluid restriction as indicated. - Follow Up Care Primary Care Physician: Tor Lucia MD [Primary Care Provider] - Please follow up with your Primary Care Physician in: in 2 week Please Follow Up With: Tor Jaffe MD When: in 2 weeks Please Follow Up With: Jin Cates DO When: in 2 weeks with Eveline PADILLA
--- NOTE | 2019-07-16 13:39 | PCM.PN.CARD ---
Subjectve: The patient is awake and alert. She believes her breathing is calm her today. She has not complained of ongoing chest pain or palpitations. Objective: Vital Signs Temp Pulse Resp BP Pulse Ox 98.1 F 84 22 H 105/54 L 96 07/16/19 08:00 07/16/19 13:17 07/16/19 13:17 07/16/19 08:00 07/16/19 09:29 Oxygen Flow Rate (L/min) [ 5 AMBULATION with Oxygen] Oxygen Flow Rate (L/min) 3 Oxygen Delivery Method Nasal Cannula Weight: 181 lb 7.047 oz Body Mass Index (BMI) 29.9 Intake and Output for Last 24 Hours 07/14/19 07/15/19 07/16/19 23:59 23:59 23:59 Intake Total 1485.25 / 1494.00 1386.17 / 1666.17 496.50 / 496.50 Output Total 960 / 960 800 / 1100 300 / 300 Balance 525.25 / 534.00 586.17 / 566.17 196.50 / 196.50 General: Awake, Alert, Oriented x 3, Cooperative, No Acute Distress HEENT: Atraumatic, Normocephalic, PERRL, EOMI, Sclera Non Icteric Oral: Moist Mucosa Neck: Supple, Good ROM, No JVD Lungs: Expiratory Wheezes-Manuel Cardiovascular: Irregular Rhythm, Normal S1, Normal S2 Abdomen: Bowel Sounds Present, Soft Extremities: No edema Psych/Mental Status: Appropriate Rhythm: Atrial fibrillation Medical Necessity - Tobacco Use Smoking Status: Former smoker Assessment/Plan 1. Atrial fibrillation The present time she continues in atrial fibrillation. She will continue medical management with rate control therapy, an attempt at antiarrhythmic therapy, and anticoagulant therapy. Her medications and doses will be adjusted to try and bring her rate under better control. 2. CAD The patient has reportedly undergone previous evaluation for this in the past with no findings of angiographically significant CAD. She can continue medical management as deemed appropriate. 3. Diastolic dysfunction The patient has been reported as having a history of diastolic dysfunction. She will continue medical management as deemed appropriate. 4. Hypertension The patient's blood pressure will be monitored and her medications can be adjusted as needed. 5. COPD The patient will continue evaluation care per internal medicine and pulmonology/critical care medicine as deemed appropriate. This note was generated using a voice recognition system and there may be incorrect words, spelling or punctuation that were not noted when reviewing the office note prior to saving.
--- NOTE | 2019-07-16 14:31 | CASEMGMT ---
Patient is ready for discharge today. YAO called [place] and let them know. YAO also spoke with patient. Her family will transport her back and she has her portable O2 with her. Await orders to fax to [place]. Plan: d/c back to [place] under skilled level of care. Family will transport via private vehicle. Regla VIZCARRA MSW
--- NOTE | 2019-07-16 14:35 | CHAPLAIN ---
Type of Pastoral Visit _x__ Initial Visit ___ Follow-up Visit ___ On-call Visit ___ General Patient Visit ___ Spiritual Assessment ___ Family Conference ___ Bereavement ___ Rapid Response ___ Code Blue ___ Other (describe below) Pastoral Care Referral From _x__ Patient ___ Family ___ Nurse ___ Physician ___ Flight Agent ___ Gardener Florist ___ Other (describe below) Sacrament/Intervention _x__ Active listening ___ Anointing ___ Congregational ___ Bereavement ___ Communion ___ Teresa exploration ___ ___ Life review _x__ Prayer ___ Reconciliation ___ Sacrament of Sick ___ Supportive presence ___ Wedding ___ Other (describe below) Pastoral Comments
--- NOTE | 2019-07-16 15:48 | PCM.DC.SUM ---
Discharge Date and Diagnosis - Problem List Patient Problems: Active and Suspected Problems (Last Updated 07/12/19 @ 21:39 by Ailyn Ramirez MD) Atrial fibrillation with RVR (Acute) Leukocytosis (Acute) Lactic acidosis (Acute) Date of Admission: 07/12/19 Date of Discharge: 07/16/19 - Primary Discharge Diagnosis Active and Suspected Problems (Last Updated 07/12/19 @ 21:39 by Ailyn Ramirez MD) Atrial fibrillation with RVR (Acute) Leukocytosis (Acute) Lactic acidosis (Acute) Severe sepsis or septic shock ruled out. - Secondary Discharge Diagnosis Chronic Problems (Last Updated 07/12/19 @ 21:39 by Ailyn Ramirez MD) Diastolic dysfunction (Chronic) Chronic hypoxemic respiratory failure (Chronic) Chronic anticoagulation (Chronic) Former tobacco use (Chronic) Depression (Chronic) Pulmonary hypertension (Chronic) History of recurrent deep vein thrombosis (DVT) (Chronic) History of pulmonary embolism (Chronic) History of cardioversion (Chronic) January of 2018.....HR not controlled with exertion while in AF on Beta madison and cardizem. Converted to NSR with cardioversion Paroxysmal atrial fibrillation (Chronic) [facility] on 01/31/2018; HTN (hypertension) (Chronic) Iron deficiency anemia (Chronic) Chronic diastolic CHF (congestive heart failure) (Chronic) Acute exacerbation of CHF (congestive heart failure) (Chronic) Dyslipidemia (Chronic) COPD (chronic obstructive pulmonary disease) (Chronic) Hospital Course and Treatment Operations: None Summary of Care Provided: The patient is a 73-year-old female with a past medical history of chronic atrial fibrillation, chronic diastolic CHF, chronic hypoxic respiratory failure who comes in with progressive shortness of breath and cough. 1. Acute on chronic respiratory failure secondary to acute on chronic diastolic CHF/A. fib with RVR: Currently on 2 L of oxygen. Acute part resolved. 2. Acute on chronic diastolic CHF Continue on on Lasix 20 mg IV twice daily. ECHO Was done on 07/15/2019. The estimated ejection fraction is 65 %. Unable to assess diastolic dysfunction due to arrhythmia. Mildly dilated right ventricle. The left atrium is mildly enlarged. Mild (1+) tricuspid valve insufficiency. Right ventricular systolic pressure estimated to be 45 mmHg. Mild pulmonary hypertension. Trivial mitral valve insufficiency. Compared to echo report dated 09/08/2018, LV function has remained the same, pt now appears to be in atrial fibrillation and RVSP has increased from 35% to 45% Patient is allergic to lisinopril. Patient is discharged on metoprolol, Cardizem 3. A. fib with RVR, rate controlled, resumed on Cardizem, continue metoprolol per cardiology recommendations INR is therapeutic. Continue Coumadin 4. Elevated lactic acid respiratory panel is negative, blood cultures x2- for more than 48 hours. Urine culture negative. Patient infectious work-up for pneumonia is negative. Antibiotic discontinued as per residence life coordinator recommendation. Severe sepsis or septic shock ruled out. Elevated lactic acid probably secondary decreased perfusion from acute on chronic heart failure, A. fib with RVR. 5. COPD with chronic respiratory failure, on 2 L home oxygen, no signs of acute exacerbation . Chronic iron deficiency anemia, on p.o. iron . Hypertension, controlled, will switch to metoprolol 50 mg twice daily . DVT PPx- On warfarin, INR is therapeutic Discharge medication reconciliation done. Discharge follow-up instructions completed. Discharge process discussed with the patient and all questions were answered to patient's satisfaction. Patient is being discharged to SNF. Total time spent, exact 35 minutes on discharge meds reconciliation, examination, review of imaging and blood test and discussion with the patient on follow-up instructions. Clinical Impression(s) from Imaging Studies Chest X-Ray 07/12/19 20:00 IMPRESSION: Mild pulmonary vascular congestion. Patient Problems: Active and Suspected Problems (Last Updated 07/12/19 @ 21:39 by Ailyn Ramirez MD) Atrial fibrillation with RVR (Acute) Leukocytosis (Acute) Lactic acidosis (Acute) Subjective: Patient shortness of breath is much improved. Patient also walked on hallway. On baseline oxygen currently at 2 L of oxygen. - Physical Exam Vitals/I&O's: Vital Signs Temp Pulse Resp BP Pulse Ox 98.3 F 80 16 103/62 97 07/16/19 14:33 07/16/19 14:33 07/16/19 14:33 07/16/19 14:33 07/16/19 14:33 Oxygen Flow Rate (L/min) [ 5 AMBULATION with Oxygen] Oxygen Flow Rate (L/min) 2 Oxygen Delivery Method Nasal Cannula Weight: 181 lb 7.047 oz Body Mass Index (BMI) 29.9 Intake and Output for Last 24 Hours 07/14/19 07/15/19 07/16/19 23:59 23:59 23:59 Intake Total 1485.25 / 1494.00 1386.17 / 1666.17 496.50 / 496.50 Output Total 960 / 960 800 / 1100 300 / 300 Balance 525.25 / 534.00 586.17 / 566.17 196.50 / 196.50 General: Alert, Oriented x3, Cooperative HEENT: Atraumatic, PERRLA, EOMI, Normocephalic Neck: Supple, No JVD, Negative Carotid Bruits Lungs: Clear to auscultation, No rhonchi, No wheeze, No rales, Diminished Cardiovascular: Regular rate, Regular Rhythm, Normal S1, Normal S2, No murmurs Abdomen: Bowel Sounds Present, Soft, Non Tender, Non-Distended Extremities: Capillary Refill Less than 3 Seconds, Edema Skin: No rashes, No breakdown Musculoskeletal: No Tenderness to Palpation of Joints or Extremities, Arthritic Changes Neurological: Cranial nerves II-XII grossly intact, Deep Tendon Reflexes 2+/4 and Symmetrical, Neuro grossly intact Psych/Mental Status: Normal Affect, Appropriate Microbiology Past 72 Hours 07/13/19 00:20 Urine Catheter - Catheter Urine Culture - Final Culture exhibits no growth. 07/12/19 21:34 Blood Culture (Wb) - Anticubital Left Blood Culture - Preliminary No growth in 48 hours. 07/12/19 21:40 Blood Culture (Wb) - Right Forearm Blood Culture - Preliminary No growth in 48 hours. 07/13/19 06:45 Mucosa - Nasopharyngeal Respiratory Panel (PCR) - Final Current Medications Acetaminophen (Tylenol) 650 mg PO Q6H PRN PRN PRN Reason: Pain Score 1-10/Temp > 100.7 F Last Admin: 07/15/19 16:04 Dose: 650 mg Documented by: Albuterol Sulfate (Ventolin Aerosols) 2.5 mg INHALATION Q2H PRN PRN PRN Reason: Shortness of breath, wheezing Last Admin: 07/16/19 02:15 Dose: 2.5 mg Documented by: Albuterol/Ipratropium (Duoneb) 3 ml INHALATION Q6H.RT CAIO Last Admin: 07/16/19 13:17 Dose: 3 ml Documented by: Amiodarone HCl (Cordarone) 200 mg PO TID [facility] Stop: 07/29/19 06:01 Last Admin: 07/16/19 14:29 Dose: 200 mg Documented by: Amiodarone HCl (Cordarone) 200 mg PO BID [facility] Stop: 08/12/19 10:01 [facility]iod[facility]one [facility] ([facility]one) [facility] Budesonide (Pulmicort Aerosol) 0.5 mg INHALATION BID.RT [facility] Last Admin: 07/16/19 07:34 Dose: 0.5 mg Documented by: Buspirone HCl (Buspar) 7.5 mg PO QHS [facility] Last Admin: 07/15/19 21:27 Dose: 7.5 mg Documented by: Citalopram Hydrobromide (Celexa) 40 mg PO DAILY [facility] Last Admin: 07/16/19 08:38 Dose: 40 mg Documented by: Ferrous Sulfate (Ferrous Sulfate) 325 mg PO BIDCM [facility] Last Admin: 07/16/19 08:37 Dose: 325 mg Documented by: Furosemide (Lasix) 20 mg IV BID@1000,1800 [facility] Last Admin: 07/16/19 08:37 Dose: 20 mg Documented by: Sodium Chloride () 250 mls @ 15 mls/hr IV .[id number] PRN PRN Reason: Saline Flush Last Infusion: 07/16/19 02:07 Dose: 0 mls/hr Documented by: Sodium Chloride () 250 mls @ 15 mls/hr IV .[id number] PRN PRN Reason: Additional IVPB Infusion Piperacillin Sod/Tazobactam (Sod 3.375 gm/ Sodium Chloride) 50 mls @ 12.5 mls/hr IV Q8 [facility] Last Infusion: 07/16/19 10:21 Dose: Infused Documented by: Sodium Chloride () 250 mls @ 15 mls/hr IV .[id number] PRN PRN Reason: Saline Flush Sodium Chloride () 250 mls @ 15 mls/hr IV .[id number] PRN PRN Reason: Additional IVPB Infusion Diltiazem HCl 125 mg/ Dextrose 125 mls @ 5 mls/hr IV .Q25H [facility]; Protocol Last Titration: 07/16/19 08:45 Dose: Infused Documented by: Melatonin (Melatonin) 1.5 mg PO QHS [facility] Last Admin: 07/15/19 21:31 Dose: Not Given Documented by: Metoprolol Tartrate (Lopressor (Beta [place])) 50 mg PO BID [facility] Last Admin: 07/16/19 08:37 Dose: 50 mg Documented by: Ondansetron HCl (Zofran) 4 mg IV Q8H PRN PRN PRN Reason: NAUSEA/VOMITING Pantoprazole Sodium (Protonix) 20 mg PO DAILY [facility] Last Admin: 07/16/19 08:38 Dose: 20 mg Documented by: Polyethylene Glycol (Miralax) 17 gm PO DAILY [facility] Last Admin: 07/16/19 08:45 Dose: 17 gm Documented by: Potassium Chloride (K-Dur) 20 meq PO BIDCM [facility] Last Admin: 07/16/19 08:37 Dose: 20 meq Documented by: Senna/Docusate Sodium (Senokot-S, Caterina-Colace) 2 tablet PO BID PRN PRN PRN Reason: Constipation Sodium Chloride () 10 - 40 ml IV UD PRN PRN Reason: SALINE FLUSH Last Admin: 07/16/19 08:37 Dose: 10 ml Documented by: Sucralfate (Carafate) 1 gm PO 1HR_ACHS PRN PRN Reason: GI UPSET Warfarin Sodium (Coumadin (Pbkc)) 3 mg PO SuMoTuWeThSa@1700 [facility] Last Admin: 07/15/19 16:03 Dose: 3 mg Documented by: Warfarin Sodium (Coumadin (Pbkc)) 4 mg PO Fr@1700 [facility] Zolpidem Tartrate (Ambien (Generic)) 5 mg PO QHS PRN PRN PRN Reason: INSOMNIA Last Admin: 07/15/19 21:32 Dose: 5 mg Documented by: Home Medications: Medications to take at Discharge Ergocalciferol [Vitamin D] 50,000 unit PO TH 07/19/15 Warfarin Sodium 4 mg PO FR 03/08/18 Citalopram Hydrobromide [Citalopram HBr] 40 mg PO DAILY 05/23/18 Ipratropium/Albuterol Sulfate [Duoneb] 3 ml INHALATION 4X/DAY 08/10/18 albuterol sulfate 90 mcg/actuation aerosol inhaler 2 puff INHALATION Q4H PRN PRN g 09/17/18 Budesonide 2 ml IH BID 01/17/19 Omeprazole 20 mg PO DAILY 01/17/19 Senna [Senokot] 1 tab PO BID 01/17/19 Sucralfate [Carafate] 1 gm PO 4X/DAY PRN 01/17/19 Vit A/Vit C/Vit E/Zinc/Copper [Preservision Areds Tablet] 1 ea PO BID 01/17/19 Warfarin [Coumadin] 3 mg PO SUMOTUWETHSA 01/17/19 Buspirone HCl 7.5 mg PO QHS 05/07/19 Ferrous Sulfate 325 mg PO BIDCM #1 tab 05/09/19 Melatonin 1.5 mg PO QHS tab 05/09/19 Zolpidem Tartrate [Ambien] 5 mg PO QHS PRN PRN #7 tab 05/09/19 Acetaminophen [Tylenol Tablet] 650 mg PO Q6H PRN PRN 07/12/19 Cyanocobalamin (Vitamin B-12) [Vitamin B-12] 500 mcg PO DAILY@0800 07/12/19 Diltiazem CD [Cardizem CD] 120 mg PO BID 07/12/19 Polyethylene Glycol 3350 17 gm PO DAILY 07/12/19 Potassium Chloride 20 meq PO BID 07/12/19 Acetaminophen [Tylenol Tablet] 650 mg PO Q6H PRN PRN tab 07/16/19 Amiodarone HCl [Cordarone] 200 mg PO BID tab 07/16/19 Amiodarone HCl [Cordarone] 200 mg PO DAILYCM tab 07/16/19 Amiodarone HCl [Cordarone] 200 mg PO TID tab 07/16/19 Furosemide 20 mg PO BID #60 tab 07/16/19 Metoprolol Tartrate [Lopressor (beta madison)] 50 mg PO BID tab 07/16/19 Primary Care Physician: Tor Lucia MD [Primary Care Provider] - Please follow up with your Primary Care Physician in: in 2 week Please Follow Up With: Tor Jaffe MD When: in 2 weeks Please Follow Up With: Jin Cates DO When: in 2 weeks with Eveline PADILLA Medical Necessity - Tobacco Use Smoking Status: Former smoker Meaningful Use Info Meaningful Use Diagnoses (Choose all that apply): CHF - CHF CANDIE/ARB ordered at discharge?: No Reason CANDIE/ARB not ordered?: Allergy Documented LVEF (%): 65 Code Visit Inpatient E&M: 57395 Disch Hosp
--- NOTE | 2019-07-16 16:49 | PCA ---
Faxed discharge orders to [facility] and placed a copy in patient chart.
== END 2019-07-16 17:01 | disposition skilled nursing facility (03) | DRG 291 ==
LOC: ED 20:28 → ICU 23:52 → PCU 07-15 07:00 → ICU 07-15 07:54 → PCU 07-15 08:03
PROVIDERS: Internal Medicine; Admitting Provider Hospitalist; Emergency Provider Emergency Medicine; Family Provider Family Medicine; PCP Family Medicine; Visit Provider Internal Medicine
DX: I11.0 Hypertensive heart disease with heart failure (principal); J96.21 Acute and chronic respiratory failure with hypoxia; I50.33 Acute on chronic diastolic (congestive) heart failure; Z99.81 Dependence on supplemental oxygen; I48.0 Paroxysmal atrial fibrillation; I27.20 Pulmonary hypertension, unspecified; D50.9 Iron deficiency anemia, unspecified; E78.5 Hyperlipidemia, unspecified; F32.9 Major depressive disorder, single episode, unspecified; I07.1 Rheumatic tricuspid insufficiency; I34.0 Nonrheumatic mitral (valve) insufficiency; Z86.711 Personal history of pulmonary embolism; Z87.891 Personal history of nicotine dependence; Z86.718 Personal history of other venous thrombosis and embolism; Z79.01 Long term (current) use of anticoagulants; Z88.8 Allergy status to other drugs, medicaments and biological substances
CPT/HCPCS: 36415; 71045; 80048; 80053; 80069; 81001; 83605; 83880; 84484; 85025; 85610; 87040; 87086; 87633; 87641; 87804; 93005; 93306; 94640; 97110; 97161; 97165; 99251; 99285; J7030; J7050; A4216; G0463; J1940

== ENCOUNTER → 2019-07-24 15:27 | Outpatient (REF) | payer MEDICARE, MEDICAID, SELFPAY ==
[2019-07-13 00:25] VITALS: BMI 29.9
[2019-07-24 15:43] LABS: Absolute Lymphocyte Count 1.05 X10^3/uL (0.83-4.51); Absolute Neutrophil Count 6.1 X10^3/uL (2.0-7.7); Basophil# 0.05 X10^3/uL; Basophil% 0.6 % (0-1); Eosinophil# 0.28 X10^3/uL; Eosinophils% 3.5 % (0-5); Hematocrit 36.1 % (37-47); Hemoglobin 10.8 g/dL (12.0-15.0); Lymphocyte # 1.05 X10^3/ul (4.0); Lymphocyte % 13.2 % (19-41); Mean Corp Hgb Conc 29.9 g/dL (32-36); Mean Corpuscular Hgb 27.7 pg (27.0-32.0); Mean Corpuscular Volume 92.6 fL (81-99); Mean Platelet Vol. 12.2 fl (6.2-12.0); Monocyte# 0.48 X10^3/uL; NRBC Flagged by Analyzer 0 % (0-5); Neutrophil # 6.08 X10^3/uL (2.7-7.7); Neutrophil % 76.3 % (47-70); Platelet Count 295 K/mm3 (150-450); RBC Distribution Width CV 17.6 % (11.6-14.6); RBC Distribution Width SD 59.6 fl (35.1-43.9)
[2019-07-24 15:54] LABS: BUN 11 mg/dL (7-18); Creatinine, Serum 0.79 mg/dL (0.55-1.02); Glucose 94 mg/dL (74-106)
[2019-07-24 15:55] LABS: ALB/GLOB Ratio 0.9 RATIO (0.9-2.4); AST(SGOT) 26 U/L (15-37); Alanine Aminotransfer ALT/SGPT 31 U/L (13-56); Albumin, Serum 3.1 g/dL (3.2-5.0); Alkaline Phosphatase 131 U/L (45-117); Anion Gap 5 (5-15); Calcium,Total 9.2 mg/dL (8.5-10.1); Chloride 103 mmol/L (98-107); EST Glomerular Filtration Rate 76 mL/min (>60); Est Glom Filt Rate - Afr Amer 92 mL/min (>60); Globulin 3.6 g/dL (2.2-4.2); Potassium 4.1 mmol/L (3.5-5.1); Protein, Total 6.7 g/dL (6.4-8.2); Sodium Level 143 mmol/L (136-145)
== END ==
LOC: OLS.AHA 15:27
PROVIDERS: Family Provider Family Medicine; PCP Family Medicine; Referring Provider Family Medicine; Visit Provider Family Medicine
DX: D64.9 Anemia, unspecified (principal); I10 Essential (primary) hypertension; Z79.01 Long term (current) use of anticoagulants
CPT/HCPCS: 80053; 85025; 85610

== ENCOUNTER 2019-07-26 06:48 | Inpatient (IN) | payer MEDICARE, MEDICAID, SELFPAY ==
[2019-07-13 00:25] VITALS: BMI 29.9
[2019-07-26] VITALS (50 sets, daily range): BP systolic 87–180; BP diastolic 43–131; PULSE 64–145; RESP 12–47; TEMP 35.8–37.1; O2SAT 30–100; BMI 33.3; BMI 29.4
--- NOTE | 2019-07-26 06:54 | ED.RN ---
PT ON BIPAP FI02 40 PERCENT,06/23.
--- NOTE | 2019-07-26 06:55 | RAD_ITS ---
HISTORY: SOB. EXAMINATION/TECHNIQUE: XR Chest 1 View: Portable COMPARISON: None FINDINGS: Oxygen tubing overlying the upper right hemithorax. No significant change. Normal heart size. Mild pulmonary venous congestion with peribronchial mild thickening and right perihilar mild haze. No pulmonary consolidation or focal infiltrate. No pleural effusion. No pneumothorax. RAD/Chest 1 View (Portable) IMPRESSION: 1. No significant change. Mild pulmonary venous congestion which appears chronic. Associated mild peribronchial thickening. 2. No focal infiltrate or pneumonia identified. at 0803 Reported and signed by: Matthew Grullon MD Electronically Signed: Matthew Grullon, at 8:01 EST Tel , Service support ,
--- NOTE | 2019-07-26 06:55 | EKG12_ITS ---
Test Reason : SOB Blood Pressure : / mmHG Vent. Rate : 133 BPM Atrial Rate : 147 BPM P-R Int : 000 ms QRS Dur : 074 ms QT Int : 342 ms P-R-T Axes : 000 084 133 degrees QTc Int : 509 ms Atrial fibrillation with rapid ventricular response Nonspecific ST and T wave abnormality Abnormal ECG Confirmed by MADISON BHAT, URSULA ([id number]), material expeditor PABLITO TRUONG ([id number]) on 07/29/2019 10:20:24 AM Referred By: Confirmed By:URSULA WALLACE MD
--- NOTE | 2019-07-26 06:56 | CPS ---
rt called to er 3 due to sob. patient was 74% on nasal cannulla. dr. cali in room and gave order for bipap setup ipap 12 epap 8 rr 12.
--- NOTE | 2019-07-26 06:59 | ED.VISSUMM ---
- ER Visit Summary Date of Service: 07/26/19 Chief Complaint: Shortness of breath History of Present Illness: The patient is a 73 F presenting with shortness of breath. This started this morning. Patient's family went to check on her this morning and she was having difficulty breathing. The nurse had refused to give her albuterol MDI as it was not ordered more than every 2 hours. She had an admission 07/12-07/16 for CHF. She had an echo performed during that hospitalization that showed an EF of 65%. Physical Examination: Patient is afebrile. Heart rate 135. Respiratory rate 40. Alert moderate acute distress. Pulse ox 79% on 2 L. HEENT exam is unremarkable. Neck is supple. Lungs are wheezing bilaterally, tachypnea Heart is irregularly irregular and tachycardic Abdomen is soft nontender nondistended. Extremities are unremarkable. Skin is warm and dry. No focal neurologic deficit. Remainder of exam is unremarkable. Emergency Department Course and Treatment: Patient was started on BiPAP on arrival. Albuterol Atrovent aerosols were ordered. Chest x-ray and labs are pending at this time. Patient will be checked out to the oncoming physician. Disposition: Admission Impression: Respiratory failure This note was generated with [employer] dictation software. It may contain incorrect words, spelling, and punctuation that were not noted in review of the chart prior to signing <Adrianne Pretty - Last Filed: 07/26/19 07:33> - ER Visit Summary Date of Service: 07/26/19 Chief Complaint: Shortness of breath History of Present Illness: The patient is a 73 F [facility] Anticoagulated on Coumadin secondary to history of A. fib and DVT. Also history of CHF and hypertension. Patient turned over to me by the overnight physician Dr. Pretty Physical Examination: Elderly female respiratory status is improving now she is on BiPAP. Initial blood pressure is 180/131 with a heart rate of 135 showing A. fib RVR on the monitor. Her initial pulse ox was 79% on oxygen consistent with hypoxia. H EENT exam unremarkable. Neck nontender. Lungs expiratory wheezing and crackles.. Positive rales. No rhonchi. Equal symmetrical. Heart irregular irregular rate about 130 no murmur. Abdomen soft and nontender. 1+ pitting edema in both lower extremities from the knees to the toes. Calves are nontender there is no cords. There are equal and symmetrical. Neurologically she is awake and alert moving all 4 extremities. Test Results: EKG shows A. fib with rapid ventricular rate rate of approximately 133. No significant change from a prior EKG also showing A. fib from June. Emergency Department Course and Treatment: Patient was treated for respiratory failure secondary to COPD with aerosols and Solu-Medrol. She is also been placed on BiPAP. She is improving. She is in less distress. To be treated with aerosols and IV Solu-Medrol. She also is in A. fib RVR and will be treated with Cardizem and may need to be started on a Cardizem drip to to be determined as she responds to therapy. She will obviously need to be admitted. Patient will also be started on a Cardizem drip due to her heart rate remained in the 120s. Treatment Plan: I spoke to the hospitalist Dr. Lema and the patient will be admitted to PCU. Disposition: admission Impression: Acute respiratory failure Acute on chronic A. fib with RVR Respiratory failure treated with BiPAP Acute exacerbation COPD Bilateral lower extremity edema acute on chronic Critical care time 35 minutes This note was generated with [employer] dictation software. It may contain incorrect words, spelling, and punctuation that were not noted in review of the chart prior to signing <Nilay Bowen - Last Filed: 07/26/19 08:09> ED Disposition <Adrianne Pretty - Last Filed: 07/26/19 07:33> <Nilay Bowen - Last Filed: 07/26/19 08:09> - Plan for ED Patient: Referrals: Tor Lucia MD [Primary Care Provider] -
[2019-07-26] MEDS: Ipratropium/Albuterol Sulfate 3 ML AMPUL.NEB INHALATION ×3 (07:13→20:25)
[2019-07-26] MEDS: Albuterol 2.5 MG/3 ML VIAL.NEB. INHALATION ×3 (07:14→07:48)
--- NOTE | 2019-07-26 07:19 | CPS ---
POST BIPAP ASSESSMENT. PATIENT WEANED TO .35%.
[2019-07-26 07:20] LABS: Absolute Lymphocyte Count 2.13 X10^3/uL (0.83-4.51); Absolute Neutrophil Count 10.6 X10^3/uL (2.0-7.7); Basophil# 0.05 X10^3/uL; Basophil% 0.4 % (0-1); Eosinophil# 0.24 X10^3/uL; Eosinophils% 1.7 % (0-5); Hematocrit 39.3 % (37-47); Hemoglobin 11.8 g/dL (12.0-15.0); Lymphocyte # 2.13 X10^3/ul (4.0); Lymphocyte % 15.3 % (19-41); Mean Corpuscular Hgb 27.3 pg (27.0-32.0); Mean Platelet Vol. 11.5 fl (6.2-12.0); Monocyte# 0.73 X10^3/uL; Monocyte% 5.3 % (0-10); NRBC Flagged by Analyzer 0 % (0-5); Neutrophil # 10.63 X10^3/uL (2.7-7.7); Neutrophil % 76.6 % (47-70); Platelet Count 292 K/mm3 (150-450); RBC Distribution Width CV 17.5 % (11.6-14.6); RBC Distribution Width SD 58.7 fl (35.1-43.9); Red Blood Count 4.32 M/mm3 (4.2-5.4); White Blood Count 13.9 K/mm3 (4.4-11.0)
--- NOTE | 2019-07-26 07:30 | CPS ---
PATIENT WEANED TO .30% POST BIPAP/AEROSOL ASSESSMENT.
[2019-07-26 07:31] LABS: Anion Gap 3 (5-15); BUN 9 mg/dL (7-18); BUN/Creat Ratio 13.5 RATIO (10-20); Calcium,Total 9.5 mg/dL (8.5-10.1); Chloride 101 mmol/L (98-107); Creatinine, Serum 0.67 mg/dL (0.55-1.02); EST Glomerular Filtration Rate 92 mL/min (>60); Est Glom Filt Rate - Afr Amer 111 mL/min (>60); Estimated Creatinine Clearance 41.97 ml/min; Glucose 149 mg/dL (74-106); International Normalized Ratio 1.9; Potassium 3.6 mmol/L (3.5-5.1); Prothrombin Time (Protime)PT. 21.9 SECONDS (11.7-14.9); Sodium Level 140 mmol/L (136-145)
[2019-07-26 07:38] LABS: Lactic Acid 1.2 mmol/L (0.4-1.9)
[2019-07-26] MEDS: MethylPREDNISolone 125 MG/2 ML Vial IV (07:40)
[2019-07-26] MEDS: dilTIAZem 25 MG/5 ML Vial IV BOLUS (07:40)
[2019-07-26 08:00] LABS: BNP,B-Type NATRIURETIC PEPTIDE 362.6 pg/mL (0-100)
--- NOTE | 2019-07-26 08:05 | HP.PCM_ITS ---
<Nilay Bowen - Last Filed: 07/26/19 08:07> Problem List (1) Atrial fibrillation with RVR Status: Acute (2) COPD (chronic obstructive pulmonary disease) Status: Chronic Qualifiers: COPD type: unspecified COPD Qualified Code(s): J44.9 - Chronic obstructive pulmonary disease, unspecified (3) Chronic anticoagulation Status: Chronic History of Present Illness The patient is a 73 year old F [] Past Medical History Past Medical History (Chronic Problems): Chronic Problems (Last Updated 07/12/19 @ 21:39 by Ailyn Ramirez MD) Diastolic dysfunction (Chronic) Chronic hypoxemic respiratory failure (Chronic) Chronic anticoagulation (Chronic) Former tobacco use (Chronic) Depression (Chronic) Pulmonary hypertension (Chronic) History of recurrent deep vein thrombosis (DVT) (Chronic) History of pulmonary embolism (Chronic) History of cardioversion (Chronic) January of 2018.....HR not controlled with exertion while in AF on Beta donna and cardizem. Converted to NSR with cardioversion Paroxysmal atrial fibrillation (Chronic) DCCV on 01/31/2018; HTN (hypertension) (Chronic) Iron deficiency anemia (Chronic) Chronic diastolic CHF (congestive heart failure) (Chronic) Acute exacerbation of CHF (congestive heart failure) (Chronic) Dyslipidemia (Chronic) COPD (chronic obstructive pulmonary disease) (Chronic) Medical History: Medical History (Last Updated 07/12/19 @ 21:39 by Ailyn Ramirez MD) Dyslipidemia (Chronic) E78.5 COPD (chronic obstructive pulmonary disease) (Chronic) J44.9 Atrial fibrillation I48.91 Heart failure with preserved ejection fraction I50.30 Group 2. EF 65% 12/05/17 Essential hypertension I10 History of DVT (deep vein thrombosis) Z86.718 History of pulmonary embolus (PE) Z86.711 Pulmonary HTN I27.20 Venous insufficiency I87.2 Allergies [facility]] Adverse Reaction (Verified 07/26/19 06:53) ANKLE AND LEG EDEMA RESOLVED OFF MED-PER PCP PAPERWORK codeine Adverse Reaction (Verified 07/26/19 06:53) MENTAL STATUS CHANGE lisinopril Adverse Reaction (Verified 07/26/19 06:53) COUGH Home Medications: Ambulatory Orders Medication Instructions Recorded Ergocalciferol [Vitamin D] 50,000 unit PO TH 07/19/15 Warfarin Sodium 4 mg PO FR 08/23/18 Citalopram Hydrobromide 40 mg PO DAILY 05/23/18 [Citalopram HBr] Ipratropium/Albuterol Sulfate 3 ml INHALATION 4X/DAY 08/10/18 [Duoneb] albuterol sulfate 90 mcg/actuation 2 puff INHALATION Q4H PRN PRN g 09/17/18 aerosol inhaler Budesonide 2 ml IH BID 01/17/19 Omeprazole 20 mg PO DAILY 01/17/19 Senna [Senokot] 1 tab PO BID 01/17/19 Sucralfate [Carafate] 1 gm PO 4X/DAY PRN 01/17/19 Vit A/Vit C/Vit E/Zinc/Copper 1 ea PO BID 01/17/19 [Preservision Areds Tablet] Warfarin [Coumadin] 3 mg PO SUMOTUWETHSA 01/17/19 Buspirone HCl 7.5 mg PO QHS 05/07/19 Ferrous Sulfate 325 mg PO BIDCM #1 tab 05/09/19 Melatonin 1.5 mg PO QHS tab 05/09/19 Zolpidem Tartrate [Ambien] 5 mg PO QHS PRN PRN #7 tab 05/09/19 Acetaminophen [Tylenol Tablet] 650 mg PO Q6H PRN PRN 07/12/19 Cyanocobalamin (Vitamin B-12) 500 mcg PO DAILY@0800 07/12/19 [Vitamin B-12] Diltiazem CD [Cardizem CD] 120 mg PO BID 07/12/19 Polyethylene Glycol 3350 17 gm PO DAILY 07/12/19 Potassium Chloride 20 meq PO BID 07/12/19 Acetaminophen [Tylenol Tablet] 650 mg PO Q6H PRN PRN tab 07/16/19 Amiodarone HCl [Cordarone] 200 mg PO BID tab 07/16/19 Amiodarone HCl [Cordarone] 200 mg PO DAILYCM tab 07/16/19 Amiodarone HCl [Cordarone] 200 mg PO TID tab 07/16/19 Furosemide 20 mg PO BID #60 tab 07/16/19 Metoprolol Tartrate [Lopressor 50 mg PO BID tab 07/16/19 (beta donna)] Surgical History: Surgical History (Last Reviewed 07/12/19 @ 21:53 by Ailyn Ramirez MD) History of cholecystectomy Z90.49 History of total hysterectomy Z90.710 tailbone surgery - *Family History Maternal Family History: Family History (Last Reviewed 05/07/19 @ 13:35 by Yoselin Junior DO) Sister Heart disease Paternal Family History: Family History (Last Reviewed 05/07/19 @ 13:35 by Yoselin Junior DO) Sister Heart disease Sibling Family History: Family History (Last Reviewed 05/07/19 @ 13:35 by Yoselin Junior DO) Sister Heart disease - Physical Exam Vitals/I&O's: Vital Signs Temp Pulse Resp BP Pulse Ox 98.7 F 117 H 28 H 102/63 95 07/26/19 07:47 07/26/19 07:49 07/26/19 07:49 07/26/19 07:49 07/26/19 07:49 Oxygen Flow Rate (L/min) 40 Oxygen Delivery Method Bi-pap Weight: 87.9 kg Body Mass Index (BMI) 33.3 Laboratory Results 07/26/19 06:53: WBC 13.9 H, RBC 4.32, Hgb 11.8 L, Hct 39.3, MCV 91.0, MCH 27.3, MCHC 30.0 L, RDW Std Deviation 58.7 H, RDW Coeff of Laura 17.5 H, Plt Count 292, MPV 11.5, Immature Gran % (Auto) 0.700, Neut % (Auto) 76.6 H, Lymph % (Auto) 15.3 L, Kimble % (Auto) 5.3, Eos % (Auto) 1.7, Baso % (Auto) 0.4, Absolute Neuts (auto) 10.6 H, Absolute Lymphs (auto) 2.13, Nucleated RBC % 0 07/26/19 06:53: PT 21.9 H, INR 1.9 07/26/19 06:53: Sodium 140, Potassium 3.6, Chloride 101, Carbon Dioxide 36.0 H, Anion Gap 3 L, BUN 9, Creatinine 0.67, Estim Creat Clear Calc 41.97, Est GFR (MDRD) Af Amer 111, Est GFR (MDRD) Non-Af 92, BUN/Creatinine Ratio 13.5, Glucose 149 H, Calcium 9.5, Troponin I < 0.015 07/26/19 06:53: B-Natriuretic Peptide 362.6 H 07/26/19 07:03: Lactic Acid 1.2 Current Medications Diltiazem HCl 125 mg/ Dextrose 125 mls @ 5 mls/hr CONT INF .Q25H CAIO; Protocol Assessment/Plan All Active Problems (Last Updated 07/12/19 @ 21:39 by Ailyn Ramirez MD) Atrial fibrillation with RVR (Acute) Leukocytosis (Acute) Lactic acidosis (Acute) <Ryann Lema - Last Filed: 07/26/19 16:02> History of Present Illness Date of Admission: 07/26/19 Chief Complaint: Shortness of breath The patient is a 73 year old F with past medical history of congestive heart failure with preserved EF and atrial fibrillation. She was admitted through the ED on 07/26/2019 with a complaint of shortness of breath. Patient states she had not been feeling well in the long-term for a few days and shortness of breath acutely worsened today so she called her daughter. She was recently admitted on 07 12-07 16 for CHF and states she has been compliant with her diuretics at home. She admitted to orthopnea and PND and also said she had edema in her lower extremities. On admission in the ED, heart rate was 135 respiratory rate was 14 she was saturating at 79% on 2 L of oxygen. She was started on BiPAP on admission. G showed A. fib with RVR and BNP was 362.6. Initial troponin was nine 0.015. Chest x-ray showed mild pulmonary venous congestion which appears chronic and no focal infiltrate or pneumonia. He has been admitted to be managed for acute on chronic heart failure with preserved ejection fraction and A. fib with RVR as well as acute hypoxic respiratory failure due to A. fib with RVR and CHF. [] Past Medical History Medical History: Medical History (Last Updated 07/12/19 @ 21:39 by Ailyn Ramirez MD) Dyslipidemia (Chronic) E78.5 COPD (chronic obstructive pulmonary disease) (Chronic) J44.9 Atrial fibrillation I48.91 Heart failure with preserved ejection fraction I50.30 Group 2. EF 65% 12/05/17 Essential hypertension I10 History of DVT (deep vein thrombosis) Z86.718 History of pulmonary embolus (PE) Z86.711 Pulmonary HTN I27.20 Venous insufficiency I87.2 Allergies amlodipine besylate [From [facility]] Adverse Reaction (Verified 07/26/19 06:53) ANKLE AND LEG EDEMA RESOLVED OFF MED-PER PCP PAPERWORK codeine Adverse Reaction (Verified 07/26/19 06:53) MENTAL STATUS CHANGE lisinopril Adverse Reaction (Verified 07/26/19 06:53) COUGH Surgical History: Surgical History (Last Reviewed 07/12/19 @ 21:53 by Ailyn Ramirez MD) History of cholecystectomy Z90.49 History of total hysterectomy Z90.710 tailbone surgery Surgical History: cholecystectomy, hysterectomy, - - tailbone surgery. 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 Paternal Family History: Family History (Last Reviewed 05/07/19 @ 13:35 by Yoselin Junior DO) Sister Heart disease History Items: - - Patient denies any marketed paternal family history including heart disease, diabetes, cancer. Sibling Family History: Family History (Last Reviewed 05/07/19 @ 13:35 by Yoselin Junior DO) Sister Heart disease History Items: - - Patient notes a sibling specifically her sister with Parkinson's disease and heart disease as well as a brother with Parkinson's disease, asthma and history of blood clots. Review of Systems Constitutional: Reports: Malaise, Weakness, Fatigue. Denies: Anorexia, Chills, Fever Eyes: Denies: Blurred vision HEENT: Denies: Head Aches, Sinus Congestion, Sinus Drainage Cardiovascular: Reports: Edema, Palpitations, Paroxysmal Noc. Dyspnea. Denies: Chest Pain, Chest Pressure, Heaviness, Light Headedness, Syncope Respiratory: Reports: Shortness of Breath, Shortness of breath at rest, Shortness of breath upon exertion. Denies: Cough, Sputum production Gastrointestinal: Denies: Abdominal Pain, Nausea, Vomiting Genitourinary: Denies: Dysuria Musculoskeletal: Denies: Joint Pain, Joint Tenderness Skin: Denies: Rash, Wounds Neurological: Denies: Numbness, Tingling, Focal weakness Psychiatric: Denies: Anxiety, Depression, Homicidal Ideations, Suicidal Ideations Hematologic/ Lymphatic: Denies: Easy Bruising, Easy Bleeding VTE Information - Inpt Only VTE Present on Admission: No VTE Pharm Prophylaxis ordered?: Yes - Physical Exam Vitals/I&O's: Vital Signs Temp Pulse Resp BP Pulse Ox 98.7 F 117 H 28 H 102/63 95 07/26/19 07:47 07/26/19 07:49 07/26/19 07:49 07/26/19 07:49 07/26/19 07:49 Oxygen Flow Rate (L/min) 40 Oxygen Delivery Method Bi-pap Weight: 193 lb 12.581 oz Body Mass Index (BMI) 33.3 General: Alert, Oriented x3, Cooperative, Lethargic, - - in respiratory distress, on BIPAP HEENT: Atraumatic, PERRLA, EOMI, Normocephalic Oral: Moist Mucosa Neck: Supple, No JVD, Negative Carotid Bruits Lungs: Tachypneic, Using Accessory Muscles, - - decreased breath sounds bibasally, mild fine crackles bibasally, on BIPAP Cardiovascular: Irregular Rate - and rhythm, Afib with RVR, Tachycardic Abdomen: Bowel Sounds Present, Soft, Non Tender Extremities: No clubbing, No cyanosis, - - bipedal 2+ pitting edema Skin: No rashes, No breakdown Musculoskeletal: No Tenderness to Palpation of Joints or Extremities Lymphatic: No Cervical, Supraclavicular, or Inguinal Adenopathy Neurological: Cranial nerves II-XII grossly intact, Neuro grossly intact, Motor Exam 5/5 strength throughout Psych/Mental Status: Normal Affect, Appropriate, Alert and oriented to time, place, person, mood and affect Laboratory Results 07/26/19 06:53: WBC 13.9 H, RBC 4.32, Hgb 11.8 L, Hct 39.3, MCV 91.0, MCH 27.3, MCHC 30.0 L, RDW Std Deviation 58.7 H, RDW Coeff of Laura 17.5 H, Plt Count 292, MPV 11.5, Immature Gran % (Auto) 0.700, Neut % (Auto) 76.6 H, Lymph % (Auto) 15.3 L, Kimble % (Auto) 5.3, Eos % (Auto) 1.7, Baso % (Auto) 0.4, Absolute Neuts (auto) 10.6 H, Absolute Lymphs (auto) 2.13, Nucleated RBC % 0 07/26/19 06:53: PT 21.9 H, INR 1.9 07/26/19 06:53: Sodium 140, Potassium 3.6, Chloride 101, Carbon Dioxide 36.0 H, Anion Gap 3 L, BUN 9, Creatinine 0.67, Estim Creat Clear Calc 41.97, Est GFR (MDRD) Af Amer 111, Est GFR (MDRD) Non-Af 92, BUN/Creatinine Ratio 13.5, Glucose 149 H, Calcium 9.5, Troponin I < 0.015 07/26/19 06:53: B-Natriuretic Peptide 362.6 H 07/26/19 07:03: Lactic Acid 1.2 Current Medications Diltiazem HCl 125 mg/ Dextrose 125 mls @ 5 mls/hr CONT INF .Q25H CAIO; Protocol Assessment/Plan 73-year-old female admitted with a complaint of shortness of breath and palpitations. 1. Acute hypoxic respiratory failure due to acute on chronic HFpEF and afib wtih RVR * was saturating in the 70s on admission * now on BIPAP * CXR showed mild venous congestion which appears chronic * BNP is 362. BNP is always elevated in the 200s-400s * EKG whsowed Afib with RVR * currently on IV cardizem drip * consult cardiology * 2D echo (07/14/19): EF of 65% and unable to assess diastolic dysfunction due to arrhythmia. No regional motion abnormalities seen. RVSP was 45 mmHg. * fluid restriction to 1500cc daily * monitor intake and output chart strictly * IV lasix 40mg bid * give breathing treatments with duonebs * 2. Acute on chronic HFpEF: as under 1 3. Afib with RVR: * as under 1. * On cardizem drip. * on amiodarone and metoprolol as well as cardizem routinely in SNF. * cardiology consulted. * on coumadin 4. Depression: on citalopram and buspirone DV prophylaxis:on coumadin. Code status: DNRCCA * Patient and daughter counseled extensively about different types of CODE STATUS including full code, DNR CCA and DNR CCA. Patient elects to be DNRCCA, which is what her code status was in SNF. * Total [id number] time 16 minutes. Code Visit Inpatient E&M: 49629 Init Hosp L3 Procedures: 40700 Advncd Care Plan 30 Min
--- NOTE | 2019-07-26 08:08 | ED.RN ---
PT A-FIB RVR, AWARE OF SEPSIS RISK TRIGGER, NO ACTION REQUIRED AT THIS TIME.
--- NOTE | 2019-07-26 08:09 | NURSING ---
PCU [facility] RESP FAILURE, COPD FLARE, AFIB RVR
[2019-07-26 10:31] LABS: Bedside Glucose 137 mg/dL (70-110)
[2019-07-26] MEDS: Citalopram 40 MG TABLET PO (10:33)
[2019-07-26] MEDS: Senna Tablet 1 TABLET PO ×2 (10:33→22:29)
[2019-07-26] MEDS: Pantoprazole Sodium 20 MG Tablet PO (10:33)
[2019-07-26] MEDS: Metoprolol Tartrate 50 MG Tablet PO ×2 (10:33→22:30)
[2019-07-26] MEDS: Furosemide 40 MG/4 ML Vial IV ×2 (10:35→17:35)
[2019-07-26] MEDS: 0.9% Saline Lock 10 ML Syringe IV ×3 (10:35→12:30)
[2019-07-26] MEDS: Polyethylene Glycol 3350 17 GM PACKET PO (10:35)
--- NOTE | 2019-07-26 11:02 | CASEMGMT ---
Pt is here from [place]. SW called Stacy at [place], confirmed pt can return when ready, updates faxed. YAO called daughter Irene Walker, confirmed w/her plan is for pt to return to [place] when ready, and she plans to transport pt when she is ready for discharge back to the [facility]. Green sheet placed on chart in event pt is ready for discharge on the weekend. TRINI Gomez
[2019-07-26] MEDS: Ondansetron 4 MG/2 ML Vial IV (12:30)
--- NOTE | 2019-07-26 13:43 | CPS ---
Pt placed on 5 lpm for lunch
--- NOTE | 2019-07-26 13:45 | CPS ---
Bipap on standby for lunch. Pt on 5 lpm at this time
[2019-07-26] MEDS: Multivitamin (Healthy Eyes) Capsule 1 CAP PO (16:22)
[2019-07-26] MEDS: Ferrous Sulfate 325 MG Tablet PO (16:22)
[2019-07-26 16:31] LABS: Bedside Glucose 153 mg/dL (70-110)
--- NOTE | 2019-07-26 19:15 | PCM.CONS.C ---
Problem List (1) Atrial fibrillation with RVR Status: Acute (2) Acute exacerbation of CHF (congestive heart failure) Status: Chronic (3) Dyslipidemia Status: Chronic (4) HTN (hypertension) Status: Chronic Qualifiers: Hypertension type: essential hypertension Qualified Code(s): I10 - Essential (primary) hypertension (5) COPD (chronic obstructive pulmonary disease) Status: Chronic Qualifiers: COPD type: unspecified COPD Qualified Code(s): J44.9 - Chronic obstructive pulmonary disease, unspecified (6) Pulmonary hypertension Status: Chronic (7) History of recurrent deep vein thrombosis (DVT) Status: Chronic (8) History of pulmonary embolism Status: Chronic Reason for Consult Date of Consultation: 07/26/19 History of Present Illness: The patient is a 73 year [id number] white female with a past cardiovascular history of atrial fibrillation and decreased diastolic compliance with chronic diastolic mediated CHF with hyperlipidemia, hypertension, COPD, pulmonary hypertension, and history of thromboembolic disease with DVT/PE who is referred for recurrent progressive shortness of breath/dyspnea and concerns of atrial fibrillation with RVR and acute on chronic diastolic mediated CHF and acute COPD exacerbation. The patient was recently hospitalized and released back to her [facility]. She states over the last few days she began to become short of breath and dyspneic again which progressed to a point today where she summoned her daughter who summoned the EMS to bring her to the hospital for further evaluation and care. She noted cough with sputum production as part of her symptoms. After arrival to hospital she was evaluated and found to have her atrial fibrillation rate increased and concerns of acute on chronic diastolic mediated CHF as well as acute COPD exacerbation. She was treated with diuretic therapy, rate control with IV diltiazem which she has received in the past, and a CPAP device. At the present time she states she does feel her breathing is somewhat improved. She states since her release she has not been able to keep her follow-up appointment with her personal injury attorney. She has denied ongoing chest discomfort. She notes that she has had lower extremity peripheral pitting edema. There is been no near syncope or syncope. Her cardiac enzymes have been negative. Her ECG demonstrated atrial fibrillation. Her chest x-ray demonstrated concerns of chronic increased pulmonary vascularity (please see official report). She states that at the [facility] she has been compliant with diet and medications. Of note she has undergone evaluation for similar episodes in April 2019 and June 2019. She states she does not feel that she can stay out of the hospital very long because of her recurrent cardiopulmonary symptoms and findings. [] Past Medical History Allergies/Adverse Reactions: Allergies amlodipine besylate [From [facility]] Adverse Reaction (Verified 07/26/19 06:53) ANKLE AND LEG EDEMA RESOLVED OFF MED-PER PCP PAPERWORK codeine Adverse Reaction (Verified 07/26/19 06:53) MENTAL STATUS CHANGE lisinopril Adverse Reaction (Verified 07/26/19 06:53) COUGH Home Medications: Ambulatory Orders Medication Instructions Recorded Ergocalciferol [Vitamin D] 50,000 unit PO TH 07/19/15 Warfarin Sodium 4 mg PO FR 03/08/18 Citalopram Hydrobromide 40 mg PO DAILY 05/23/18 [Citalopram HBr] Ipratropium/Albuterol Sulfate 3 ml INHALATION 4X/DAY 08/10/18 [Duoneb] albuterol sulfate 90 mcg/actuation 2 puff INHALATION Q4H PRN PRN g 09/17/18 aerosol inhaler Budesonide 2 ml IH BID 01/17/19 Omeprazole 20 mg PO DAILY 01/17/19 Senna [Senokot] 1 tab PO BID 01/17/19 Sucralfate [Carafate] 1 gm PO 4X/DAY PRN 01/17/19 Vit A/Vit C/Vit E/Zinc/Copper 1 ea PO BID 01/17/19 [Preservision Areds Tablet] Warfarin [Coumadin] 3 mg PO SUMOTUWETHSA 01/17/19 Buspirone HCl 7.5 mg PO QHS 05/07/19 Ferrous Sulfate 325 mg PO BIDCM #1 tab 05/09/19 Melatonin 1.5 mg PO QHS tab 05/09/19 Zolpidem Tartrate [Ambien] 5 mg PO QHS PRN PRN #7 tab 05/09/19 Acetaminophen [Tylenol Tablet] 650 mg PO Q6H PRN PRN 07/12/19 Cyanocobalamin (Vitamin B-12) 500 mcg PO DAILY@0800 07/12/19 [Vitamin B-12] Diltiazem CD [Cardizem CD] 120 mg PO BID 07/12/19 Polyethylene Glycol 3350 17 gm PO DAILY 07/12/19 Potassium Chloride 20 meq PO BID 07/12/19 Acetaminophen [Tylenol Tablet] 650 mg PO Q6H PRN PRN tab 07/16/19 Furosemide 20 mg PO BID #60 tab 07/16/19 Metoprolol Tartrate [Lopressor 50 mg PO BID tab 07/16/19 (beta donna)] Amiodarone HCl [Cordarone] 200 mg PO TIDCM 07/26/19 Past Medical History (Chronic Problems): Chronic Problems (Last Updated 07/12/19 @ 21:39 by Ailyn Ramirez MD) Diastolic dysfunction (Chronic) Chronic hypoxemic respiratory failure (Chronic) Chronic anticoagulation (Chronic) Former tobacco use (Chronic) Depression (Chronic) Pulmonary hypertension (Chronic) History of recurrent deep vein thrombosis (DVT) (Chronic) History of pulmonary embolism (Chronic) History of cardioversion (Chronic) January of 2018.....HR not controlled with exertion while in AF on Beta donna and cardizem. Converted to NSR with cardioversion Paroxysmal atrial fibrillation (Chronic) DCCV on 01/31/2018; HTN (hypertension) (Chronic) Iron deficiency anemia (Chronic) Chronic diastolic CHF (congestive heart failure) (Chronic) Acute exacerbation of CHF (congestive heart failure) (Chronic) Dyslipidemia (Chronic) COPD (chronic obstructive pulmonary disease) (Chronic) Surgical History: cholecystectomy, hysterectomy, - - tailbone surgery. 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 Paternal Family History: Family History (Last Reviewed 05/07/19 @ 13:35 by Yoselin Junior DO) Sister Heart disease History Items: - - Patient denies any marketed paternal family history including heart disease, diabetes, cancer. Sibling Family History: Family History (Last Reviewed 05/07/19 @ 13:35 by Yoselin Junior DO) Sister Heart disease History Items: - - Patient notes a sibling specifically her sister with Parkinson's disease and heart disease as well as a brother with Parkinson's disease, asthma and history of blood clots. [facility] Smoking Status: Former smoker Alcohol: None Drugs: None Review of Systems - Review of Systems General: Reports: Fatigue. Denies: Fever, Night Sweats Cardiovascular: Reports: Shortness of Breath, Shortness of Breath at Rest, Peripheral Edema. Denies: Chest Discomfort, Orthopnea, PND, Palpitations, Lightheadedness, Dizziness, Near Syncope, Syncope Respiratory: Reports: Sputum Production, Shortness of Breath. Denies: Cough, Hemoptysis Gastrointestinal: Denies: Hematemesis, Hematochezia, Melena Genitourinary: Denies: Dysuria, Hematuria Skin: Denies: Rash Subjectve: This is a 73-year-old white male who appears resting comfortably at the moment in no acute distress. Objective: Vital Signs Temp Pulse Resp BP Pulse Ox 97.6 F L 73 33 H 87/67 L 94 07/26/19 18:00 07/26/19 19:00 07/26/19 19:00 07/26/19 19:00 07/26/19 19:00 Oxygen Flow Rate (L/min) 3 Oxygen Delivery Method Nasal Cannula Weight: 187 lb 13.341 oz Body Mass Index (BMI) 29.4 Intake and Output for Last 24 Hours 07/24/19 07/25/19 07/26/19 23:59 23:59 23:59 Intake Total 464.75 / 464.75 Output Total 1475 / 1475 Balance -1010.25 / -1010.25 General: Awake, Alert, Oriented x 3, Cooperative, No Acute Distress, Obese HEENT: Atraumatic, Normocephalic, PERRL, EOMI, Sclera Non Icteric Oral: Moist Mucosa Neck: Supple, Good ROM Lungs: Rhonchi, Inspiratory Wheezes - Manuel, Expiratory Wheezes-Manuel Cardiovascular: Irregular Rhythm, Normal S1, Normal S2 Abdomen: Bowel Sounds Present, Soft, Non Tender Extremities: Mild RLE Edema, Mild LLE Edema Psych/Mental Status: Appropriate 07/26/19 06:53: WBC 13.9 H, RBC 4.32, Hgb 11.8 L, Hct 39.3, MCV 91.0, MCH 27.3, MCHC 30.0 L, Plt Count 292, MPV 11.5, Immature Gran % (Auto) 0.700, Neut % (Auto) 76.6 H, Lymph % (Auto) 15.3 L, [place] % (Auto) 5.3, Eos % (Auto) 1.7, Baso % (Auto) 0.4, Absolute Neuts (auto) 10.6 H, Nucleated RBC % 0 07/26/19 06:53: PT 21.9 H, INR 1.9 07/26/19 06:53: Sodium 140, Potassium 3.6, Chloride 101, Carbon Dioxide 36.0 H, Anion Gap 3 L, BUN 9, Creatinine 0.67, Est GFR (MDRD) Af Amer 111, Est GFR (MDRD) Non-Af 92, BUN/Creatinine Ratio 13.5, Glucose 149 H, Calcium 9.5, Troponin I < 0.015 07/26/19 06:53: B-Natriuretic Peptide 362.6 H 07/26/19 07:03: Lactic Acid 1.2 07/26/19 09:57: Troponin I 0.028 07/26/19 13:10: Troponin I 0.027 Rhythm: Atrial fibrillation EKG: Atrial fibrillation ECHO: 07-15-19: Left ventricle normal with an LVEF 65% Mild right ventricular enlargement Mild left atrial enlargement Trivial MR Mild TR Estimated RV systolic pressure 45 mmHg CXR: As noted above: Please see official report Assessment/Plan 1. Atrial fibrillation with rapid ventricular response The patient presents with recurrent atrial fibrillation with rapid ventricular response. The present time she will continue her rate control therapy. She is already anticoagulated. 2. Acute on chronic diastolic mediated CHF The patient presents with recurrent acute on chronic diastolic mediated CHF. She states she has been compliant with diet and medication. She appears to have episodes of exacerbation of her atrial dysrhythmia and her acute on chronic diastolic mediated CHF when she has exacerbation of underlying pulmonary disease process. The present time she will continue medical management which will include her diuretic therapy. 3. Hyperlipidemia She will continue medical management as deemed appropriate. 4. Hypertension Her blood pressure will be followed and her medications might be adjusted during her clinical course. 5. COPD She does have history of significant underlying pulmonary disease. She has been followed by pulmonology in the past. Would not be unreasonable to consider consultation of pulmonology to assist with her underlying acute on chronic related issues. 6. Pulmonary hypertension Her most recent transthoracic echocardiogram estimating her right-sided pressures is noted. Her right-sided pressures were somewhat elevated. She will need continued medical therapy and O2 support. 7. Thromboembolic disease (history of DVT/PE She remains anticoagulated at this time. Overall the patient's case represents recurrence of similar episode she has had in April 2019 and June 2019. This is reportedly despite being adherent to diet and medication. The patient's case has been discussed and reviewed with the patient, her daughter who was present at the time, and with Dr. Lema. This note was generated using a voice recognition system and there may be incorrect words, spelling or punctuation that were not noted when reviewing the office note prior to saving.
[2019-07-26] MEDS: Budesonide Respules 0.5 MG/2 ML AMPUL.NEB. 0.25 MG INHALATION (20:25)
--- NOTE | 2019-07-26 20:29 | CPS ---
TAKEN OFF BIPAP BY RN BEFORE DINNER 5PM
[2019-07-26] MEDS: MELATONIN 3 MG TABLET 1.5 MG PO (22:29)
[2019-07-26] MEDS: busPIRone 5 MG Tablet 7.5 MG PO (22:29)
[2019-07-27] VITALS (48 sets, daily range): BP systolic 92–132; BP diastolic 51–109; PULSE 72–152; RESP 12–37; TEMP 36.6–36.7; O2SAT 90–99
[2019-07-27] MEDS: Zolpidem Tartrate 5 MG Tablet PO ×2 (02:36→21:48)
[2019-07-27] MEDS: Ipratropium/Albuterol Sulfate 3 ML AMPUL.NEB INHALATION ×4 (02:59→15:35)
[2019-07-27] MEDS: Acetaminophen 325 MG Tablet 650 MG PO ×2 (06:13→15:33)
[2019-07-27] MEDS: Budesonide Respules 0.5 MG/2 ML AMPUL.NEB. 0.25 MG INHALATION (06:57)
[2019-07-27 07:25] LABS: Absolute Lymphocyte Count 0.54 X10^3/uL (0.83-4.51); Absolute Neutrophil Count 6.6 X10^3/uL (2.0-7.7); Basophil# 0.01 X10^3/uL; Basophil% 0.1 % (0-1); Hematocrit 35.6 % (37-47); Hemoglobin 10.6 g/dL (12.0-15.0); Lymphocyte # 0.54 X10^3/ul (4.0); Lymphocyte % 7.2 % (19-41); Mean Corp Hgb Conc 29.8 g/dL (32-36); Mean Corpuscular Hgb 27.2 pg (27.0-32.0); Mean Corpuscular Volume 91.3 fL (81-99); Mean Platelet Vol. 11.7 fl (6.2-12.0); NRBC Flagged by Analyzer 0 % (0-5); Neutrophil # 6.55 X10^3/uL (2.7-7.7); POSITIVE DIFFERENTIAL YES; POSITIVE MORPHOLOGY YES; Platelet Count 257 K/mm3 (150-450); RBC Distribution Width CV 17.6 % (11.6-14.6); RBC Distribution Width SD 58.9 fl (35.1-43.9); White Blood Count 7.5 K/mm3 (4.4-11.0)
[2019-07-27 07:35] LABS: International Normalized Ratio 2.1; Prothrombin Time (Protime)PT. 23.9 SECONDS (11.7-14.9)
[2019-07-27 07:48] LABS: Anion Gap 4 (5-15); BUN 16 mg/dL (7-18); BUN/Creat Ratio 21.8 RATIO (10-20); Calcium,Total 9.3 mg/dL (8.5-10.1); Chloride 100 mmol/L (98-107); Creatinine, Serum 0.73 mg/dL (0.55-1.02); EST Glomerular Filtration Rate 82 mL/min (>60); Est Glom Filt Rate - Afr Amer 99 mL/min (>60); Estimated Creatinine Clearance 47.27 ml/min; Glucose 138 mg/dL (74-106); Potassium 3.7 mmol/L (3.5-5.1); Sodium Level 142 mmol/L (136-145)
[2019-07-27 07:49] LABS: Differential Indicated SCAN CRITERIA MET
[2019-07-27] MEDS: Pantoprazole Sodium 20 MG Tablet PO (08:32)
[2019-07-27] MEDS: Senna Tablet 1 TABLET PO ×2 (08:32→21:49)
[2019-07-27] MEDS: Cyanocobalamin 500 MCG Tablet PO (08:33)
[2019-07-27] MEDS: Polyethylene Glycol 3350 17 GM PACKET PO (08:33)
[2019-07-27] MEDS: Citalopram 40 MG TABLET PO (08:33)
[2019-07-27] MEDS: Ferrous Sulfate 325 MG Tablet PO ×2 (08:33→17:38)
[2019-07-27] MEDS: Multivitamin (Healthy Eyes) Capsule 1 CAP PO ×2 (08:33→17:38)
[2019-07-27] MEDS: Glucerna Shake 120 ML LIQUID PO (08:33)
[2019-07-27] MEDS: Metoprolol Tartrate 50 MG Tablet PO ×2 (08:33→21:49)
[2019-07-27] MEDS: Furosemide 40 MG/4 ML Vial IV ×2 (08:33→17:38)
[2019-07-27 09:12] LABS: Differential Comment SCANNED
--- NOTE | 2019-07-27 09:48 | CON.PCM_ITS ---
Problem List (1) Diastolic dysfunction Status: Chronic (2) Chronic hypoxemic respiratory failure Status: Chronic (3) Chronic anticoagulation Status: Chronic (4) Pulmonary hypertension Status: Chronic (5) History of recurrent deep vein thrombosis (DVT) Status: Chronic (6) History of pulmonary embolism Status: Chronic (7) Paroxysmal atrial fibrillation Status: Chronic Comment: DCCV on 01/31/2018; (8) Acute exacerbation of CHF (congestive heart failure) Status: Chronic (9) Atrial fibrillation with RVR Status: Acute (10) Dyslipidemia Status: Chronic (11) COPD (chronic obstructive pulmonary disease) Status: Chronic Qualifiers: COPD type: unspecified COPD Qualified Code(s): J44.9 - Chronic obstructive pulmonary disease, unspecified Reason for Consult Date of Consultation: 07/27/19 Reason for Consultation: COPD History of Present Illness: The patient is a 73 year old F, with past medical history listed below, who pres ented with [facility] [place] on 07/26/2019 secondary to progressive shortness of breath over the course of the day. Patient had reported some URI type symptoms for the previous 2 to 3 days, but on the day of presentation had noted significant worsening in shortness of breath. Patient had been requiring increased albuterol use and the nurse refused to give it to her. Patient was sent to the ER for evaluation. Patient was recently admitted from 07/12/2019 until 07/16/2019 secondary to CHF. Recent work-up had shown A. fib with an EF of 65%. In the ER, patient was noted to be tachycardic at 135 bpm, tachypneic at 40 and 79% on her baseline 2 L nasal cannula oxygen. Patient was noted to have wheezing bilaterally. Patient was placed on BiPAP therapy with significant improvement in respiratory status. Patient was also given aerosol therapy and admitted to the PCU for further evaluation. Overnight, patient's respiratory status has significantly improved. Patient is able to be off of BiPAP and requiring 3 L nasal cannula to maintain saturations. Patient continues to be tachycardic despite a Cardizem drip. Patient has not noted any significant lower extremity swelling. Patient does report continued dyspnea on exertion. Patient reportedly has not been following up with [facility]. Patient does state that she has an appointment with Dr. Junior later this month, but h as not established any care. Patient does not normally wear any BiPAP or CPAP at night. Patient is unaware if she is been tested for sleep apnea. Patient does report some sinus congestion and a sick contact earlier in the week. Patient has had a cough productive of thick yellow sputum. Patient is unaware if she has had any fever or chills, but denies any dysuria, nausea, vomiting or rashes. Review of systems otherwise negative from a constitutional, HEENT, respiratory, cardiovascular, GI, genitourinary, musculoskeletal, skin, neurologic, psychiatric and hematologic system unless stated above. Past Medical History Past Medical History (Chronic Problems): Chronic Problems (Last Updated 07/12/19 @ 21:39 by Ailyn Ramirez MD) Diastolic dysfunction (Chronic) Chronic hypoxemic respiratory failure (Chronic) Chronic anticoagulation (Chronic) Former tobacco use (Chronic) Depression (Chronic) Pulmonary hypertension (Chronic) History of recurrent deep vein thrombosis (DVT) (Chronic) History of pulmonary embolism (Chronic) History of cardioversion (Chronic) January of 2018.....HR not controlled with exertion while in AF on Beta madison and cardizem. Converted to NSR with cardioversion Paroxysmal atrial fibrillation (Chronic) DCCV on 01/31/2018; HTN (hypertension) (Chronic) Iron deficiency anemia (Chronic) Chronic diastolic CHF (congestive heart failure) (Chronic) Acute exacerbation of CHF (congestive heart failure) (Chronic) Dyslipidemia (Chronic) COPD (chronic obstructive pulmonary disease) (Chronic) Medical History: Medical History (Last Updated 07/12/19 @ 21:39 by Ailyn Ramirez MD) Dyslipidemia (Chronic) E78.5 COPD (chronic obstructive pulmonary disease) (Chronic) J44.9 Atrial fibrillation I48.91 Heart failure with preserved ejection fraction I50.30 Group 2. EF 65% 18 Essential hypertension I10 History of DVT (deep vein thrombosis) Z86.718 History of pulmonary embolus (PE) Z86.711 Pulmonary HTN I27.20 Venous insufficiency I87.2 Allergies amlodipine besylate [From Norvas] Adverse Reaction (Verified 07/26/19 06:53) ANKLE AND LEG EDEMA RESOLVED OFF MED-PER PCP PAPERWORK codeine Adverse Reaction (Verified 07/26/19 06:53) MENTAL STATUS CHANGE lisinopril Adverse Reaction (Verified 07/26/19 06:53) COUGH Home Medications: Ambulatory Orders Medication Instructions Recorded Ergocalciferol [Vitamin D] 50,000 unit PO TH 07/19/15 Warfarin Sodium 4 mg PO FR 03/08/18 Citalopram Hydrobromide 40 mg PO DAILY 05/23/18 [Citalopram HBr] Ipratropium/Albuterol Sulfate 3 ml INHALATION 4X/DAY 08/10/18 [Duoneb] albuterol sulfate 90 mcg/actuation 2 puff INHALATION Q4H PRN PRN g 09/17/18 aerosol inhaler Budesonide 2 ml IH BID 01/17/19 Omeprazole 20 mg PO DAILY 01/17/19 Senna [Senokot] 1 tab PO BID 01/17/19 Sucralfate [Carafate] 1 gm PO 4X/DAY PRN 01/17/19 Vit A/Vit C/Vit E/Zinc/Copper 1 ea PO BID 01/17/19 [Preservision Areds Tablet] Warfarin [Coumadin] 3 mg PO SUMOTUWETHSA 01/17/19 Buspirone HCl 7.5 mg PO QHS 05/07/19 Ferrous Sulfate 325 mg PO BIDCM #1 tab 05/09/19 Melatonin 1.5 mg PO QHS tab 05/09/19 Zolpidem Tartrate [Ambien] 5 mg PO QHS PRN PRN #7 tab 05/09/19 Acetaminophen [Tylenol Tablet] 650 mg PO Q6H PRN PRN 07/12/19 Cyanocobalamin (Vitamin B-12) 500 mcg PO DAILY@0800 07/12/19 [Vitamin B-12] Diltiazem CD [Cardizem CD] 120 mg PO BID 07/12/19 Polyethylene Glycol 3350 17 gm PO DAILY 07/12/19 Potassium Chloride 20 meq PO BID 07/12/19 Acetaminophen [Tylenol Tablet] 650 mg PO Q6H PRN PRN tab 07/16/19 Furosemide 20 mg PO BID #60 tab 07/16/19 Metoprolol Tartrate [Lopressor 50 mg PO BID tab 07/16/19 (beta madison)] Amiodarone HCl [Cordarone] 200 mg PO TIDCM 07/26/19 Surgical History: Surgical History (Last Reviewed 07/12/19 @ 21:53 by Ailyn Ramirez MD) History of cholecystectomy Z90.49 History of total hysterectomy Z90.710 tailbone surgery Surgical History: cholecystectomy, hysterectomy, - - tailbone surgery. 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 Paternal Family History: Family History (Last Reviewed 05/07/19 @ 13:35 by Yoselin Junior DO) Sister Heart disease History Items: - - Patient denies any marketed paternal family history including heart disease, diabetes, cancer. Sibling Family History: Family History (Last Reviewed 05/07/19 @ 13:35 by Yoselin Junior DO) Sister Heart disease History Items: - - Patient notes a sibling specifically her sister with Parkinson's disease and heart disease as well as a brother with Parkinson's disease, asthma and history of blood clots. Review of Systems Comment: See HPI - Physical Exam Vitals/I&O's: Vital Signs Temp Pulse Resp BP Pulse Ox 36.6 C 132 H 20 H 123/79 H 91 07/27/19 04:00 07/27/19 08:40 07/27/19 08:08 07/27/19 08:08 07/27/19 08:08 Oxygen Flow Rate (L/min) 3 Oxygen Delivery Method Nasal Cannula Weight: 84.3 kg Body Mass Index (BMI) 29.4 Intake and Output for Last 24 Hours 07/25/19 07/26/19 07/27/19 23:59 23:59 23:59 Intake Total 513.50 / 813.50 444.59 / 444.59 Output Total 1475 / 2325 1200 / 1200 Balance -961.50 / -1511.50 -755.41 / -755.41 General: Alert, Oriented x3, Cooperative, No apparent distress, Well developed, Well nourished, - - Mild conversational dyspnea HEENT: Atraumatic, PERRLA, EOMI, Normocephalic, - - No scleral icterus or injection noted Oral: Moist Mucosa, No Gingival or Mucosal Lesions/ Ulcerations Neck: Supple, No Nodes, Trachea Midline, JVD, Right Lungs: No rales, Diminished, Rhonchi - Right greater than left, Wheezes Cardiovascular: Normal S1, Normal S2, No murmurs, Irregular Rate, No rub noted, No Gallop Abdomen: Bowel Sounds Present, Soft, Non Tender, Non-Distended, Obese Extremities: No clubbing, No cyanosis, Capillary Refill Less than 3 Seconds, Edema - Trace lower extremity Skin: No rashes, No breakdown, - - Some venous stasis changes in lower extremity Musculoskeletal: No Tenderness to Palpation of Joints or Extremities Lymphatic: No Cervical, Supraclavicular, or Inguinal Adenopathy Neurological: Cranial nerves II-XII grossly intact, Neuro grossly intact, Motor Exam 5/5 strength throughout, Sensory exam intact to light touch and pain Psych/Mental Status: Alert and oriented to time, place, person, mood and affect Laboratory Results 07/26/19 09:57: Troponin I 0.028 07/26/19 10:28: POC Glucose 137 H 07/26/19 13:10: Troponin I 0.027 07/26/19 16:17: POC Glucose 153 H 07/27/19 06:25: WBC 7.5, RBC 3.90 L, Hgb 10.6 L, Hct 35.6 L, MCV 91.3, MCH 27.2, MCHC 29.8 L, RDW Std Deviation 58.9 H, RDW Coeff of Laura 17.6 H, Plt Count 257, MPV 11.7, Immature Gran % (Auto) 0.700, Neut % (Auto) 88.0 H, Lymph % (Auto) 7.2 L, Dupage % (Auto) 4.0, Eos % (Auto) 0.0, Baso % (Auto) 0.1, Absolute Neuts (auto) 6.6, Absolute Lymphs (auto) 0.54 L, Nucleated RBC % 0, Differential Comment SCANNED 07/27/19 06:25: PT 23.9 H, INR 2.1 07/27/19 06:25: Sodium 142, Potassium 3.7, Chloride 100, Carbon Dioxide 38.0 H, Anion Gap 4 L, BUN 16, Creatinine 0.73, Estim Creat Clear Calc 47.27, Est GFR (MDRD) Af Amer 99, Est GFR (MDRD) Non-Af 82, BUN/Creatinine Ratio 21.8 H, Glucose 138 H, Calcium 9.3 Current Medications Acetaminophen (Tylenol) 650 mg PO Q6H PRN PRN PRN Reason: pain and fever Last Admin: 07/27/19 06:13 Dose: 650 mg Documented by: Albuterol/Ipratropium (Duoneb) 3 ml INHALATION 4X/DAY.RT [facility] Last Admin: 07/27/19 06:57 Dose: 3 ml Documented by: Azithromycin (Zithromax) 500 mg PO X1 ONE Stop: 07/27/19 09:47 Buspirone HCl (Buspar) 7.5 mg PO QHS [facility] Last Admin: 07/26/19 22:29 Dose: 7.5 mg Documented by: Citalopram Hydrobromide (Celexa) 40 mg PO DAILY [facility] Last Admin: 07/27/19 08:33 Dose: 40 mg Documented by: Cyanocobalamin (Vitamin B12) 500 mcg PO DAILY@0800 [facility] Last Admin: 07/27/19 08:33 Dose: 500 mcg Documented by: Ergocalciferol (Vitamin D) 50,000 unit PO TH [facility] Ferrous Sulfate (Ferrous Sulfate) 325 mg PO BIDCM [facility] Last Admin: 07/27/19 08:33 Dose: 325 mg Documented by: Furosemide (Lasix) 40 mg IV BIDLX [facility] Last Admin: 07/27/19 08:33 Dose: 40 mg Documented by: Glucagon () 1 mg IM .X1 PRN PRN Reason: Hypoglycemia Diltiazem HCl 125 mg/ Dextrose 125 mls @ 5 mls/hr CONT INF .Q25H [facility]; Protocol Last Titration: 07/27/19 08:40 Dose: 15 mg/hr, 15 mls/hr Documented by: Sodium Chloride () 500 mls @ 15 mls/hr IV PRN PRN PRN Reason: Blood Transfusion Sodium Chloride () 250 mls @ 15 mls/hr IV .[id number] PRN PRN Reason: Saline Flush Sodium Chloride () 250 mls @ 15 mls/hr IV .[id number] PRN PRN Reason: Additional IVPB Infusion Dextrose (Dextrose 10%-Water) 250 mls @ 999 mls/hr IV .Q16M PRN; Protocol PRN Reason: HYPOGLYCEMIA Melatonin (Melatonin) 1.5 mg PO QHS [facility] Last Admin: 07/26/19 22:29 Dose: 1.5 mg Documented by: Methylprednisolone (Solu-Medrol) 40 mg IV Q8 [facility] Metoprolol Tartrate (Lopressor (Beta [place])) 50 mg PO BID [facility] Last Admin: 07/27/19 08:33 Dose: 50 mg Documented by: Multivitamins/Minerals (Healthy Eyes) 1 capsule PO BIDCM [facility] Last Admin: 07/27/19 08:33 Dose: 1 capsule Documented by: Nutritional Formula (Lactose Free) (Glucerna Shake) 120 ml PO 4X/DAY [facility] Last Admin: 07/27/19 08:33 Dose: 120 ml Documented by: Ondansetron HCl (Zofran) 4 mg IV Q8H PRN PRN PRN Reason: NAUSEA/VOMITING Last Admin: 07/26/19 12:30 Dose: 4 mg Documented by: Pantoprazole Sodium (Protonix) 20 mg PO DAILY [facility] Last Admin: 07/27/19 08:32 Dose: 20 mg Documented by: Polyethylene Glycol (Miralax) 17 gm PO DAILY [facility] Last Admin: 07/27/19 08:33 Dose: 17 gm Documented by: Potassium Chloride (K-Dur) 20 meq PO BIDCM [facility] Last Admin: 07/27/19 08:33 Dose: 20 meq Documented by: Senna (Senokot) 1 tablet PO BID [facility] Last Admin: 07/27/19 08:32 Dose: 1 tablet Documented by: Sodium Chloride () 10 - 40 ml IV UD PRN PRN Reason: SALINE FLUSH Last Admin: 07/26/19 12:30 Dose: 10 ml Documented by: Sucralfate (Carafate) 1 gm PO 4X/DAY PRN PRN Reason: GI UPSET Warfarin Sodium (Coumadin (Pbkc)) 3 mg PO SuMoTuWeThSa@1700 [facility] Warfarin Sodium (Coumadin (Pbkc)) 4 mg PO DAILY@1700 [facility] Last Admin: 07/26/19 17:44 Dose: 4 mg Documented by: Zolpidem Tartrate (Ambien (Generic)) 5 mg PO QHS PRN PRN PRN Reason: INSOMNIA Last Admin: 07/27/19 02:36 Dose: 5 mg Documented by: Assessment/Plan All Active Problems (Last Updated 07/12/19 @ 21:39 by Ailyn Ramirez MD) Atrial fibrillation with RVR (Acute) Leukocytosis (Acute) Lactic acidosis (Acute) RECOMMENDATIONS: 1. Initiate antibiotics and systemic steroids 2. Rate control per cardiology 3. Agree with diuresis 4. Walking oximetry prior to discharge 5. Obtain respiratory viral panel, if available 6. Establish outpatient with pulmonary for possible sleep study and complete PFT IMPRESSIONS: 1. Acute on chronic hypoxic respiratory insufficiency secondary to COPD exacerbation Patient is reporting a cough productive of yellow thick sputum 2 to 3 days prior to presentation. This would be consistent with a COPD exacerbation over an acute diastolic congestive heart failure. Patient has never had pulmonary function testing that is available for review, but clinical history is consistent with COPD. Patient would benefit from establishing with pulmonary for possible sleep study and optimization of respiratory status. Will initiate patient on systemic steroids, azithromycin and continue on bronchodilators. The use of systemic steroids may decrease the need for bronchodilators, which may be adding to difficulty in controlling heart rhythm. Clinical suspicion for viral syndrome, but viral panels are currently not available. Patient currently has an appointment with Dr. Junior, but could be seen in our office in 2 weeks following discharge with nurse practitioner given that she has been seen multiple times in the hospital by both Dr. Cates and myself. Would defer to patient. 2. Acute on chronic diastolic congestive heart failure secondary to A. fib with RVR Cardiology is following. Continue with diuresis and rate control. Patient would benefit from outpatient optimization of comorbid conditions to avoid tachycardic response. Defer to cardiology 3. Chronic anemia/history of DVT PE/depression/anxiety/hypertension Complicates care, management, recovery and prognosis. Okay to continue with baseline medications. Patient should be monitored closely with daily INRs given concomitant antibiotic therapy. No bleeding complications at this time. Code Visit Inpatient E&M: 67711 Init Hosp L3
[2019-07-27] MEDS: Azithromycin 250 MG Tablet 500 MG PO (10:18)
[2019-07-27 12:15] LABS: Bedside Glucose 143 mg/dL (70-110)
--- NOTE | 2019-07-27 13:15 | PCM.PN.HOSP ---
Subjective: Patient seen and examined. She was weaned off of BiPAP and is now on 2 L of oxygen which is her baseline. She says she feels much better and shortness of breath is improved. She does remain on Cardizem drip and heart rate was up in the 140s at time of review. She however did deny palpitations. Labs and vitals reviewed. She is in cumulative negative balance by 1.76 L since admission. Vitals/I&O's: Vital Signs Temp Pulse Resp BP Pulse Ox 97.8 F 72 22 H 123/79 H 90 07/27/19 04:00 07/27/19 11:00 07/27/19 11:00 07/27/19 08:08 07/27/19 11:21 Oxygen Flow Rate (L/min) 3 Oxygen Delivery Method Nasal Cannula Weight: 185 lb 13.595 oz Body Mass Index (BMI) 29.4 Intake and Output for Last 24 Hours 07/25/19 07/26/19 07/27/19 23:59 23:59 23:59 Intake Total 513.50 / 813.50 444.59 / 444.59 Output Total 1475 / 2325 1200 / 1200 Balance -961.50 / -1511.50 -755.41 / -755.41 General: Alert, Oriented x3, Cooperative, No apparent distress HEENT: Atraumatic, PERRLA, EOMI, Normocephalic Oral: Moist Mucosa Neck: Supple, No JVD, Negative Carotid Bruits Lungs: No rhonchi, - - decreased breath sounds bibasally, mild wheezing bilaterally, few crackles. on 2L of oxygen by nasal canula. Cardiovascular: Regular rate, Regular Rhythm, Normal S1, Normal S2, No murmurs Abdomen: Bowel Sounds Present, Soft, Non Tender, Non-Distended, No Hepato-splenomegaly Extremities: No clubbing, No cyanosis, Capillary Refill Less than 3 Seconds, - - mild 1+ pedal edema Skin: No rashes, No breakdown Musculoskeletal: No Tenderness to Palpation of Joints or Extremities Neurological: Cranial nerves II-XII grossly intact, Neuro grossly intact, Motor Exam 5/5 strength throughout Psych/Mental Status: Normal Affect, Appropriate, Alert and oriented to time, place, person, mood and affect Laboratory Results 07/26/19 13:10: Troponin I 0.027 07/26/19 16:17: POC Glucose 153 H 07/27/19 06:25: WBC 7.5, RBC 3.90 L, Hgb 10.6 L, Hct 35.6 L, MCV 91.3, MCH 27.2, MCHC 29.8 L, RDW Std Deviation 58.9 H, RDW Coeff of Laura 17.6 H, Plt Count 257, MPV 11.7, Immature Gran % (Auto) 0.700, Neut % (Auto) 88.0 H, Lymph % (Auto) 7.2 L, Angelina % (Auto) 4.0, Eos % (Auto) 0.0, Baso % (Auto) 0.1, Absolute Neuts (auto) 6.6, Absolute Lymphs (auto) 0.54 L, Nucleated RBC % 0, Differential Comment SCANNED 07/27/19 06:25: PT 23.9 H, INR 2.1 07/27/19 06:25: Sodium 142, Potassium 3.7, Chloride 100, Carbon Dioxide 38.0 H, Anion Gap 4 L, BUN 16, Creatinine 0.73, Estim Creat Clear Calc 47.27, Est GFR (MDRD) Af Amer 99, Est GFR (MDRD) Non-Af 82, BUN/Creatinine Ratio 21.8 H, Glucose 138 H, Calcium 9.3 07/27/19 12:11: POC Glucose 143 H Diagnostic Data Chest X-Ray 07/26/19 06:55 IMPRESSION: 1. No significant change. Mild pulmonary venous congestion which appears chronic. Associated mild peribronchial thickening. 2. No focal infiltrate or pneumonia identified. at 0803 Reported and signed by: Matthew Grullon MD Electronically Signed: Matthew Grullon, at 8:01 EST Tel , Service support , Current Medications Acetaminophen (Tylenol) 650 mg PO Q6H PRN PRN PRN Reason: pain and fever Last Admin: 07/27/19 06:13 Dose: 650 mg Documented by: Albuterol/Ipratropium (Duoneb) 3 ml INHALATION 4X/DAY.RT [facility] Last Admin: 07/27/19 11:00 Dose: 3 ml Documented by: Buspirone HCl (Buspar) 7.5 mg PO QHS [facility] Last Admin: 07/26/19 22:29 Dose: 7.5 mg Documented by: Citalopram Hydrobromide (Celexa) 40 mg PO DAILY [facility] Last Admin: 07/27/19 08:33 Dose: 40 mg Documented by: Cyanocobalamin (Vitamin B12) 500 mcg PO DAILY@0800 [facility] Last Admin: 07/27/19 08:33 Dose: 500 mcg Documented by: Ergocalciferol (Vitamin D) 50,000 unit PO TH [facility] Ferrous Sulfate (Ferrous Sulfate) 325 mg PO BIDCM [facility] Last Admin: 07/27/19 08:33 Dose: 325 mg Documented by: Furosemide (Lasix) 40 mg IV BIDLX [facility] Last Admin: 07/27/19 08:33 Dose: 40 mg Documented by: Glucagon () 1 mg IM .X1 PRN PRN Reason: Hypoglycemia Diltiazem HCl 125 mg/ Dextrose 125 mls @ 5 mls/hr CONT INF .Q25H [facility]; Protocol Last Titration: 07/27/19 08:40 Dose: 15 mg/hr, 15 mls/hr Documented by: Sodium Chloride () 500 mls @ 15 mls/hr IV PRN PRN PRN Reason: Blood Transfusion Sodium Chloride () 250 mls @ 15 mls/hr IV .[id number] PRN PRN Reason: Saline Flush Sodium Chloride () 250 mls @ 15 mls/hr IV .[id number] PRN PRN Reason: Additional IVPB Infusion Dextrose (Dextrose 10%-Water) 250 mls @ 999 mls/hr IV .Q16M PRN; Protocol PRN Reason: HYPOGLYCEMIA Melatonin (Melatonin) 1.5 mg PO QHS [facility] Last Admin: 07/26/19 22:29 Dose: 1.5 mg Documented by: Methylprednisolone (Solu-Medrol) 40 mg IV Q8 [facility] Metoprolol Tartrate (Lopressor (Beta [place])) 50 mg PO BID [facility] Last Admin: 07/27/19 08:33 Dose: 50 mg Documented by: [facility]ivitamins[facility]iner[facility] ([facility]) [facility] Last Admin: 07/27/19 08:33 Dose: 1 capsule Documented by: Nutritional Formula (Lactose Free) (Paulina Navake) 120 ml PO 4X/DAY [facility] Last Admin: 07/27/19 08:33 Dose: 120 ml Documented by: Ondansetron HCl (Zofran) 4 mg IV Q8H PRN PRN PRN Reason: NAUSEA/VOMITING Last Admin: 07/26/19 12:30 Dose: 4 mg Documented by: Pantoprazole Sodium (Protonix) 20 mg PO DAILY [facility] Last Admin: 07/27/19 08:32 Dose: 20 mg Documented by: Polyethylene Glycol (Miralax) 17 gm PO DAILY [facility] Last Admin: 07/27/19 08:33 Dose: 17 gm Documented by: Potassium Chloride (K-Dur) [facility] Last Admin: 07/27/19 08:33 Dose: 20 meq Documented by: Senna (Senokot) 1 tablet PO BID [facility] Last Admin: 07/27/19 08:32 Dose: 1 tablet Documented by: Sodium Chloride () 10 - 40 ml IV UD PRN PRN Reason: SALINE FLUSH Last Admin: 07/26/19 12:30 Dose: 10 ml Documented by: Sucralfate (Carafate) 1 gm PO 4X/DAY PRN PRN Reason: GI UPSET Warfarin Sodium (Coumadin (Pbkc)) 3 mg PO SuMoTuWeThSa@1700 [facility] Warfarin Sodium (Coumadin (Pbkc)) 4 mg PO DAILY@1700 [facility] Last Admin: 07/26/19 17:44 Dose: 4 mg Documented by: Zolpidem Tartrate (Ambien (Generic)) 5 mg PO QHS PRN PRN PRN Reason: INSOMNIA Last Admin: 07/27/19 02:36 Dose: 5 mg Documented by: STROKE Vital Signs/Narrative: Vital Signs Pulse Resp Pulse Ox 07/27/19 11:21 90 07/27/19 11:00 72 22 H Medical Necessity - Tobacco Use Smoking Status: Former smoker Assessment/Plan All Active Problems (Last Updated 07/12/19 @ 21:39 by Ailyn Ramirez MD) Atrial fibrillation with RVR (Acute) Leukocytosis (Acute) Lactic acidosis (Acute) 73-year-old female admitted with a complaint of shortness of breath and palpitations. 1. Acute hypoxic respiratory failure due to acute on chronic HFpEF and afib wtih RVR and COPD exacerbation now weaned off BIPAP and is on 2L of oxygen which is her baseline. it does appear her symptoms were preciptated by COPD exacerbation in the SNF still in afib, with HR in the 140s and fluctuating. currently on IV cardizem drip consult cardiology 2D echo (07/14/19): EF of 65% and unable to assess diastolic dysfunction due to arrhythmia. No regional motion abnormalities seen. RVSP was 45 mmHg. fluid restriction to 1500cc daily monitor intake and output chart strictly in cumulative negative balance by 1.7L since admission IV lasix 40mg bid give breathing treatments with [facility] pulmonology consult placed as per cardiology, patient has had repeated episodes of this condition and he seems like when she gets COPD exacerbation, it tipped her into A. fib with RVR and heart failure. Therefore optimization of her COPD help and repeated admissions. Per cardiology, if all this proves difficult then consideration might be hospice and palliative care. Will need walking pulse ox upon discharge and per pulmonology, will benefit from sleep study. Has been started on IV Solu-Medrol and azithromycin. 2. Acute on chronic HFpEF: as under 1 3. Afib with RVR: as under 1. On cardizem drip. on amiodarone and metoprolol as well as cardizem routinely in SNF. cardiology on board. on coumadin 4. COPD exacerbation: As under 1. Pulmonology on board. To follow up with Dr Mcnair upon discharge. 5. Depression: on citalopram and buspirone 6. History of DVT and PE: On Coumadin. INR is therapeutic at 2.1. 7. Hypertension: Currently on Cardizem drip o/a of afib with RVR. Also on metoprolol. Fairly controlled. DVT prophylaxis:on coumadin. INR today is 2.1. Code status: DNRCCA Code Visit Inpatient E&M: 33887 Subs Hosp L3
--- NOTE | 2019-07-27 13:35 | PN.CARD_ITS ---
Subjectve: The patient is awake and alert. She states she does feel she is breathing somewhat better than yesterday. Objective: Vital Signs Temp Pulse Resp BP Pulse Ox 97.8 F 72 22 H 123/79 H 90 07/27/19 04:00 07/27/19 11:00 07/27/19 11:00 07/27/19 08:08 07/27/19 11:21 Oxygen Flow Rate (L/min) 3 Oxygen Delivery Method Nasal Cannula Weight: 185 lb 13.595 oz Body Mass Index (BMI) 29.4 Intake and Output for Last 24 Hours 07/25/19 07/26/19 07/27/19 23:59 23:59 23:59 Intake Total 513.50 / 813.50 444.59 / 444.59 Output Total 1475 / 2325 1200 / 1200 Balance -961.50 / -1511.50 -755.41 / -755.41 General: Awake, Alert, Oriented x 3, Cooperative, No Acute Distress HEENT: Atraumatic, Normocephalic, PERRL, EOMI, Sclera Non Icteric Oral: Moist Mucosa Neck: Supple, Good ROM, No JVD Lungs: Rhonchi, Inspiratory Wheezes - Manuel Cardiovascular: Irregular Rhythm, Normal S1, Normal S2 Abdomen: Bowel Sounds Present, Soft, Non Tender Extremities: Mild RLE Edema, Mild LLE Edema Psych/Mental Status: Appropriate 07/26/19 13:10: Troponin I 0.027 07/27/19 06:25: WBC 7.5, RBC 3.90 L, Hgb 10.6 L, Hct 35.6 L, MCV 91.3, MCH 27.2, MCHC 29.8 L, Plt Count 257, MPV 11.7, Immature Gran % (Auto) 0.700, Neut % (Auto) 88.0 H, Lymph % (Auto) 7.2 L, [place] % (Auto) 4.0, Eos % (Auto) 0.0, Baso % (Auto) 0.1, Absolute Neuts (auto) 6.6, Nucleated RBC % 0 07/27/19 06:25: PT 23.9 H, INR 2.1 07/27/19 06:25: Sodium 142, Potassium 3.7, Chloride 100, Carbon Dioxide 38.0 H, Anion Gap 4 L, BUN 16, Creatinine 0.73, Est GFR (MDRD) Af Amer 99, Est GFR (MDRD) Non-Af 82, BUN/Creatinine Ratio 21.8 H, Glucose 138 H, Calcium 9.3 Rhythm: Atrial fibrillation Medical Necessity - Tobacco Use Smoking Status: Former smoker Assessment/Plan 1. Atrial fibrillation with rapid ventricular response The patient presents with recurrent atrial fibrillation with rapid ventricular response. The present time she will continue her rate control therapy. She is already anticoagulated. An attempt will be made to wean her IV diltiazem down and off and supplement with oral diltiazem. 2. Acute on chronic diastolic mediated CHF The patient presents with recurrent acute on chronic diastolic mediated CHF. She states she has been compliant with diet and medication. She appears to have episodes of exacerbation of her atrial dysrhythmia and her acute on chronic diastolic mediated CHF when she has exacerbation of underlying pulmonary disease process. The present time she will continue medical management which will include her diuretic therapy. 3. Hyperlipidemia She will continue medical management as deemed appropriate. 4. Hypertension Her blood pressure will be followed and her medications might be adjusted during her clinical course. 5. COPD She does have history of significant underlying pulmonary disease. She has been followed by pulmonology in the past. She has been evaluated by pulmonology. Their input is most appreciated. 6. Pulmonary hypertension Her most recent transthoracic echocardiogram estimating her right-sided pressures is noted. Her right-sided pressures were somewhat elevated. She will need continued medical therapy and O2 support. 7. Thromboembolic disease (history of DVT/PE) She remains anticoagulated at this time. Overall the patient's case represents recurrence of similar episode she has had in April 2019 and June 2019. This is reportedly despite being adherent to diet and medication. The patient's case has been discussed and reviewed with the patient and Dr. Mcnair. This note was generated using a voice recognition system and there may be inco rrect words, spelling or punctuation that were not noted when reviewing the office note prior to saving.
[2019-07-27 16:30] LABS: Bedside Glucose 133 mg/dL (70-110)
[2019-07-27] MEDS: dilTIAZem 30 MG Tablet PO (17:39)
[2019-07-27] MEDS: Albuterol 2.5 MG/3 ML VIAL.NEB. INHALATION (20:58)
[2019-07-27] MEDS: MELATONIN 3 MG TABLET 1.5 MG PO (21:48)
[2019-07-27] MEDS: 0.9% Saline Lock 10 ML Syringe IV (21:48)
[2019-07-27] MEDS: busPIRone 5 MG Tablet 7.5 MG PO (21:49)
[2019-07-27 23:06] LABS: Bedside Glucose 126 mg/dL (70-110)
[2019-07-28] VITALS (26 sets, daily range): BP systolic 119–160; BP diastolic 72–97; PULSE 73–114; RESP 12–31; TEMP 36.6–36.7; O2SAT 93–100
[2019-07-28] MEDS: dilTIAZem 30 MG Tablet PO ×3 (00:02→11:14)
[2019-07-28 06:31] LABS: Bedside Glucose 118 mg/dL (70-110)
[2019-07-28 07:02] LABS: Absolute Lymphocyte Count 0.92 X10^3/uL (0.83-4.51); Absolute Neutrophil Count 12.4 X10^3/uL (2.0-7.7); Basophil# 0.01 X10^3/uL; Basophil% 0.1 % (0-1); Hematocrit 42.1 % (37-47); Lymphocyte # 0.92 X10^3/ul (4.0); Lymphocyte % 6.7 % (19-41); Mean Corp Hgb Conc 28.5 g/dL (32-36); Mean Corpuscular Hgb 26.7 pg (27.0-32.0); Mean Corpuscular Volume 93.6 fL (81-99); Mean Platelet Vol. 11.7 fl (6.2-12.0); Monocyte# 0.28 X10^3/uL; Monocyte% 2.1 % (0-10); NRBC Flagged by Analyzer 0 % (0-5); Neutrophil # 12.37 X10^3/uL (2.7-7.7); Neutrophil % 90.7 % (47-70); Platelet Count 293 K/mm3 (150-450); RBC Distribution Width SD 61.6 fl (35.1-43.9); White Blood Count 13.6 K/mm3 (4.4-11.0)
[2019-07-28 07:08] LABS: International Normalized Ratio 2.6; Prothrombin Time (Protime)PT. 28.2 SECONDS (11.7-14.9)
[2019-07-28] MEDS: Ipratropium/Albuterol Sulfate 3 ML AMPUL.NEB INHALATION ×3 (07:10→19:33)
[2019-07-28 07:39] LABS: Anion Gap 2 (5-15); BUN 29 mg/dL (7-18); BUN/Creat Ratio 40.7 RATIO (10-20); Calcium,Total 9.6 mg/dL (8.5-10.1); Chloride 99 mmol/L (98-107); Creatinine, Serum 0.71 mg/dL (0.55-1.02); EST Glomerular Filtration Rate 85 mL/min (>60); Est Glom Filt Rate - Afr Amer 103 mL/min (>60); Estimated Creatinine Clearance 47.27 ml/min; Glucose 133 mg/dL (74-106); Potassium 4.4 mmol/L (3.5-5.1); Sodium Level 141 mmol/L (136-145)
--- NOTE | 2019-07-28 08:17 | PCM.PN.PUL ---
Subjective: Patient did okay overnight. Patient did use BiPAP without any difficulty. Heart rate continues to be relatively controlled. Patient states that she is interested in taking her BiPAP off and eating this morning. No bleeding complications have been reported. Patient believes her productive cough was improving prior to initiation of BiPAP therapy. - Physical Exam Vitals/I&O's: Vital Signs Temp Pulse Resp BP Pulse Ox 36.7 C 84 29 H 132/80 H 94 07/28/19 05:15 07/28/19 07:10 07/28/19 07:10 07/28/19 05:15 07/28/19 05:58 Oxygen Flow Rate (L/min) 4 Oxygen Delivery Method Nasal Cannula Weight: 83.9 kg Body Mass Index (BMI) 29.4 Intake and Output for Last 24 Hours 07/26/19 07/27/19 07/28/19 23:59 23:59 23:59 Intake Total 513.50 / 813.50 1023.50 / 1264.75 341.42 / 341.42 Output Total 1475 / 2325 2300 / 3840 1989 Balance -961.50 / -1511.50 -1276.50 / -2575.25 -1648.58 / -1648.58 General: Alert, Oriented x3, Cooperative, No apparent distress HEENT: Atraumatic, PERRLA, EOMI, Normocephalic, - - No scleral icterus or injection noted Oral: Moist Mucosa, No Gingival or Mucosal Lesions/ Ulcerations Neck: Supple, No JVD, No Nodes, Trachea Midline Lungs: Diminished, Rhonchi, Wheezes, - - Symmetric expansion. Cardiovascular: Normal S1, Normal S2, No murmurs, Irregular Rate, No rub noted, No Gallop Abdomen: Bowel Sounds Present, Soft, Non Tender, Non-Distended, Obese Extremities: No clubbing, No cyanosis, Edema - Improving Skin: No rashes, No breakdown Musculoskeletal: No Tenderness to Palpation of Joints or Extremities Lymphatic: No Cervical, Supraclavicular, or Inguinal Adenopathy Neurological: Cranial nerves II-XII grossly intact, Neuro grossly intact, Motor Exam 5/5 strength throughout Psych/Mental Status: Normal Affect, Appropriate Laboratory Results 07/27/19 06:25: Differential Comment SCANNED 07/27/19 12:11: POC Glucose 143 H 07/27/19 16:17: POC Glucose 133 H 07/27/19 22:58: POC Glucose 126 H 07/28/19 06:12: POC Glucose 118 H 07/28/19 06:30: WBC 13.6 H, RBC 4.50, Hgb 12.0, Hct 42.1, MCV 93.6, MCH 26.7 L, MCHC 28.5 L, RDW Std Deviation 61.6 H, RDW Coeff of Laura 18.0 H, Plt Count 293, MPV 11.7, Immature Gran % (Auto) 0.400, Neut % (Auto) 90.7 H, Lymph % (Auto) 6.7 L, [place] % (Auto) 2.1, Eos % (Auto) 0.0, Baso % (Auto) 0.1, Absolute Neuts (auto) 12.4 H, Absolute Lymphs (auto) 0.92, Nucleated RBC % 0 07/28/19 06:30: PT 28.2 H, INR 2.6 07/28/19 06:30: Sodium 141, Potassium 4.4, Chloride 99, Carbon Dioxide 40.0 H, Anion Gap 2 L, BUN 29 H, Creatinine 0.71, Estim Creat Clear Calc 47.27, Est GFR (MDRD) Af Amer 103, Est GFR (MDRD) Non-Af 85, BUN/Creatinine Ratio 40.7 H, Glucose 133 H, Calcium 9.6 Current Medications Acetaminophen (Tylenol) 650 mg PO Q6H PRN PRN PRN Reason: pain and fever Last Admin: 07/27/19 15:33 Dose: 650 mg Documented by: Albuterol/Ipratropium (Duoneb) 3 ml INHALATION 4X/DAY.RT [facility] Last Admin: 07/28/19 07:10 Dose: 3 ml Documented by: Buspirone HCl (Buspar) 7.5 mg PO QHS [facility] Last Admin: 07/27/19 21:49 Dose: 7.5 mg Documented by: Citalopram Hydrobromide (Celexa) 40 mg PO DAILY [facility] Last Admin: 07/27/19 08:33 Dose: 40 mg Documented by: Cyanocobalamin (Vitamin B12) 500 mcg PO DAILY@0800 [facility] Last Admin: 07/27/19 08:33 Dose: 500 mcg Documented by: Diltiazem HCl (Cardizem) 30 mg PO Q6 [facility] Last Admin: 07/28/19 06:14 Dose: 30 mg Documented by: Ergocalciferol (Vitamin D) 50,000 unit PO TH [facility] Ferrous Sulfate (Ferrous Sulfate) 325 mg PO BIDCM [facility] Last Admin: 07/27/19 17:38 Dose: 325 mg Documented by: Furosemide (Lasix) 40 mg IV BIDLX [facility] Last Admin: 07/27/19 17:38 Dose: 40 mg Documented by: Glucagon () 1 mg IM .X1 PRN PRN Reason: Hypoglycemia Diltiazem HCl 125 mg/ Dextrose 125 mls @ 5 mls/hr CONT INF .Q25H [facility]; Protocol Last Titration: 07/28/19 00:15 Dose: 0 mg/hr, 0 mls/hr Documented by: Sodium Chloride () 500 mls @ 15 mls/hr IV PRN PRN PRN Reason: Blood Transfusion Sodium Chloride () 250 mls @ 15 mls/hr IV .[id number] PRN PRN Reason: Saline Flush Sodium Chloride () 250 mls @ 15 mls/hr IV .[id number] PRN PRN Reason: Additional IVPB Infusion Dextrose (Dextrose 10%-Water) 250 mls @ 999 mls/hr IV .Q16M PRN; Protocol PRN Reason: HYPOGLYCEMIA Melatonin (Melatonin) 1.5 mg PO QHS [facility] Last Admin: 07/27/19 21:48 Dose: 1.5 mg Documented by: Methylprednisolone (Solu-Medrol) 40 mg IV Q8 [facility] Last Admin: 07/28/19 06:14 Dose: 40 mg Documented by: Metoprolol Tartrate (Lopressor (Beta [place])) 50 mg PO BID [facility] Last Admin: 07/27/19 21:49 Dose: 50 mg Documented by: Multivitamins/Minerals (Healthy Eyes) [facility] Last Admin: 07/27/19 17:38 Dose: 1 capsule Documented by: Nutritional Formula (Lactose Free) (Glucerna Shake) 120 ml PO 4X/DAY [facility] Last Admin: 07/27/19 21:50 Dose: Not Given Documented by: Ondansetron HCl (Zofran) 4 mg IV Q8H PRN PRN PRN Reason: NAUSEA/VOMITING Last Admin: 07/26/19 12:30 Dose: 4 mg Documented by: Pantoprazole Sodium (Protonix) 20 mg PO DAILY [facility] Last Admin: 07/27/19 08:32 Dose: 20 mg Documented by: Polyethylene Glycol (Miralax) 17 gm PO DAILY [facility] Last Admin: 07/27/19 08:33 Dose: 17 gm Documented by: Potassium Chloride (K-Dur) 20 meq PO BIDCM [facility] Last Admin: 07/27/19 17:38 Dose: 20 meq Documented by: Senna (Senokot) 1 tablet PO BID [facility] Last Admin: 07/27/19 21:49 Dose: 1 tablet Documented by: Sodium Chloride () 10 - 40 ml IV UD PRN PRN Reason: SALINE FLUSH Last Admin: 07/27/19 21:48 Dose: 10 ml Documented by: Sucralfate (Carafate) 1 gm PO 4X/DAY PRN PRN Reason: GI UPSET Warfarin Sodium (Coumadin (Pbkc)) 3 mg PO SuMoTuWeThSa@1700 [facility] Last Admin: 07/27/19 17:38 Dose: 3 mg Documented by: Warfarin Sodium (Coumadin (Pbkc)) 4 mg PO DAILY@1700 [facility] Last Admin: 07/27/19 17:38 Dose: 4 mg Documented by: Zolpidem Tartrate (Ambien (Generic)) 5 mg PO QHS PRN PRN PRN Reason: INSOMNIA Last Admin: 07/27/19 21:48 Dose: 5 mg Documented by: Medical Necessity - Tobacco Use Smoking Status: Former smoker Assessment/Plan All Active Problems (Last Updated 07/12/19 @ 21:39 by Ailyn Ramirez MD) Atrial fibrillation with RVR (Acute) Leukocytosis (Acute) Lactic acidosis (Acute) RECOMMENDATIONS: 1. Continue antibiotics and systemic steroids 2. Rate control per cardiology 3. Agree with diuresis 4. Walking oximetry prior to discharge 5. Obtain respiratory viral panel now that they are available 6. Establish outpatient with pulmonary for possible sleep study and complete PFT IMPRESSIONS: 1. Acute on chronic hypoxic respiratory insufficiency secondary to COPD exacerbation Patient is reporting a cough productive of yellow thick sputum 2 to 3 days prior to presentation. This would be consistent with a COPD exacerbation over an acute diastolic congestive heart failure as the initial insult. Patient has never had pulmonary function testing that is available for review, but clinical history is consistent with COPD. Patient would benefit from establishing with pulmonary for possible sleep study and optimization of respiratory status. Will initiate patient on systemic steroids, azithromycin and continue on bronchodilators. The use of systemic steroids may decrease the need for bronchodilators, which may be adding to difficulty in controlling heart rhythm. Clinical suspicion for viral syndrome and respiratory reports these are now available. Will obtain a viral panel. Patient currently has an appointment with Dr. Junior, but could be seen in our office in 2 weeks following discharge with nurse practitioner if she chooses given that she has been seen multiple times in the hospital by both Dr. Cates and myself. Would defer to patient. 2. Acute on chronic diastolic congestive heart failure secondary to A. fib with RVR Cardiology is following. Continue with diuresis and rate control. Patient would benefit from outpatient optimization of comorbid conditions to avoid tachycardic response. Defer to cardiology 3. Chronic anemia/history of DVT PE/depression/anxiety/hypertension Complicates care, management, recovery and prognosis. Okay to continue with baseline medications. Patient should be monitored closely with daily INRs given concomitant antibiotic therapy. No bleeding complications at this time. Code Visit Inpatient E&M: 44626 Subs Hosp L2
[2019-07-28] MEDS: Pantoprazole Sodium 20 MG Tablet PO (09:25)
[2019-07-28] MEDS: Ferrous Sulfate 325 MG Tablet PO ×2 (09:25→17:32)
[2019-07-28] MEDS: Senna Tablet 1 TABLET PO ×2 (09:25→22:02)
[2019-07-28] MEDS: Cyanocobalamin 500 MCG Tablet PO (09:25)
[2019-07-28] MEDS: Furosemide 40 MG/4 ML Vial IV ×2 (09:25→17:33)
[2019-07-28] MEDS: Citalopram 40 MG TABLET PO (09:26)
[2019-07-28] MEDS: Multivitamin (Healthy Eyes) Capsule 1 CAP PO ×2 (09:26→17:32)
[2019-07-28] MEDS: Polyethylene Glycol 3350 17 GM PACKET PO (09:26)
[2019-07-28] MEDS: Metoprolol Tartrate 50 MG Tablet PO ×2 (09:26→22:02)
[2019-07-28] MEDS: Azithromycin 250 MG Tablet PO (09:36)
[2019-07-28 11:21] LABS: Bedside Glucose 194 mg/dL (70-110)
--- NOTE | 2019-07-28 14:16 | PCM.PN.HOSP ---
Subjective: Patient seen and examined. She was on BiPAP at time of review. She wore BiPAP throughout the night. She denies shortness of breath getting worse still has a residual cough. Review of systems otherwise negative. Labs and vitals reviewed. She is in cumulative negative balance by 4 L since admission. Vitals/I&O's: Vital Signs Temp Pulse Resp BP Pulse Ox 98.0 F 81 20 H 123/73 H 99 07/28/19 13:00 07/28/19 13:00 07/28/19 13:00 07/28/19 13:00 07/28/19 13:00 Oxygen Flow Rate (L/min) 4 Oxygen Delivery Method Nasal Cannula Weight: 184 lb 15.485 oz Body Mass Index (BMI) 29.4 Intake and Output for Last 24 Hours 07/26/19 07/27/19 07/28/19 23:59 23:59 23:59 Intake Total 513.50 / 813.50 1023.50 / 1264.75 1061.42 / 1061.42 Output Total 1475 / 2325 2300 / 3840 2840 / 2840 Balance -961.50 / -1511.50 -1276.50 / -2575.25 -1778.58 / -1778.58 General: Alert, Oriented x3, Cooperative, No apparent distress HEENT: Atraumatic, PERRLA, EOMI, Normocephalic Oral: Moist Mucosa Neck: Supple, No JVD, Negative Carotid Bruits Lungs: No rhonchi, - - decreased breath sounds bibasally, mild wheezing bilaterally, few crackles. on BIPAP at time of review, subsequently transitioned to 4L of oxygen by migel canula Cardiovascular: Regular rate, Regular Rhythm, Normal S1, Normal S2, No murmurs Abdomen: Bowel Sounds Present, Soft, Non Tender, Non-Distended, No Hepato-splenomegaly Extremities: No clubbing, No cyanosis, Capillary Refill Less than 3 Seconds, - - mild 1+ pedal edema Skin: No rashes, No breakdown Musculoskeletal: No Tenderness to Palpation of Joints or Extremities Neurological: Cranial nerves II-XII grossly intact, Neuro grossly intact, Motor Exam 5/5 strength throughout Psych/Mental Status: Normal Affect, Appropriate, Alert and oriented to time, place, person, mood and affect Laboratory Results 07/27/19 16:17: POC Glucose 133 H 07/27/19 22:58: POC Glucose 126 H 07/28/19 06:12: POC Glucose 118 H 07/28/19 06:30: WBC 13.6 H, RBC 4.50, Hgb 12.0, Hct 42.1, MCV 93.6, MCH 26.7 L, MCHC 28.5 L, RDW Std Deviation 61.6 H, RDW Coeff of Laura 18.0 H, Plt Count 293, MPV 11.7, Immature Gran % (Auto) 0.400, Neut % (Auto) 90.7 H, Lymph % (Auto) 6.7 L, [place] % (Auto) 2.1, Eos % (Auto) 0.0, Baso % (Auto) 0.1, Absolute Neuts (auto) 12.4 H, Absolute Lymphs (auto) 0.92, Nucleated RBC % 0 07/28/19 06:30: PT 28.2 H, INR 2.6 07/28/19 06:30: Sodium 141, Potassium 4.4, Chloride 99, Carbon Dioxide 40.0 H, Anion Gap 2 L, BUN 29 H, Creatinine 0.71, Estim Creat Clear Calc 47.27, Est GFR (MDRD) Af Amer 103, Est GFR (MDRD) Non-Af 85, BUN/Creatinine Ratio 40.7 H, Glucose 133 H, Calcium 9.6 07/28/19 11:11: POC Glucose 194 H Current Medications Acetaminophen (Tylenol) 650 mg PO Q6H PRN PRN PRN Reason: pain and fever Last Admin: 07/27/19 15:33 Dose: 650 mg Documented by: Albuterol/Ipratropium (Duoneb) 3 ml INHALATION 4X/DAY.RT [facility] Last Admin: 07/28/19 11:08 Dose: 3 ml Documented by: Azithromycin (Zithromax) 250 mg PO Q24 [facility] Stop: 07/31/19 10:01 Last Admin: 07/28/19 09:36 Dose: 250 mg Documented by: Buspirone HCl (Buspar) 7.5 mg PO QHS [facility] Last Admin: 07/27/19 21:49 Dose: 7.5 mg Documented by: Citalopram Hydrobromide (Celexa) 40 mg PO DAILY [facility] Last Admin: 07/28/19 09:26 Dose: 40 mg Documented by: Cyanocobalamin (Vitamin B12) 500 mcg PO DAILY@0800 [facility] Last Admin: 07/28/19 09:25 Dose: 500 mcg Documented by: Diltiazem HCl (Cardizem) 30 mg PO Q6 [facility] Last Admin: 07/28/19 11:14 Dose: 30 mg Documented by: Ergocalciferol (Vitamin D) 50,000 unit PO TH [facility] Ferrous Sulfate (Ferrous Sulfate) 325 mg PO BIDCM [facility] Last Admin: 07/28/19 09:25 Dose: 325 mg Documented by: Furosemide (Lasix) 40 mg IV BIDLX [facility] Last Admin: 07/28/19 09:25 Dose: 40 mg Documented by: Glucagon () 1 mg IM .X1 PRN PRN Reason: Hypoglycemia Diltiazem HCl 125 mg/ Dextrose 125 mls @ 5 mls/hr CONT INF .Q25H [facility]; Protocol Last Titration: 07/28/19 00:15 Dose: 0 mg/hr, 0 mls/hr Documented by: Sodium Chloride () 500 mls @ 15 mls/hr IV PRN PRN PRN Reason: Blood Transfusion Sodium Chloride () 250 mls @ 15 mls/hr IV .[id number] PRN PRN Reason: Saline Flush Sodium Chloride () 250 mls @ 15 mls/hr IV .[id number] PRN PRN Reason: Additional IVPB Infusion Dextrose (Dextrose 10%-Water) 250 mls @ 999 mls/hr IV .Q16M PRN; Protocol PRN Reason: HYPOGLYCEMIA Melatonin (Melatonin) 1.5 mg PO QHS [facility] Last Admin: 07/27/19 21:48 Dose: 1.5 mg Documented by: Methylprednisolone (Solu-Medrol) 40 mg IV Q8 [facility] Last Admin: 07/28/19 14:15 Dose: 40 mg Documented by: Metoprolol Tartrate (Lopressor (Beta [place])) 50 mg PO BID [facility] Last Admin: 07/28/19 09:26 Dose: 50 mg Documented by: Multivitamins/Minerals (Healthy Eyes) 1 capsule PO BIDCM [facility] Last Admin: 07/28/19 09:26 Dose: 1 capsule Documented by: Nutritional Formula (Lactose Free) (Glucerna Shake) 120 ml PO 4X/DAY [facility] Last Admin: 07/28/19 14:15 Dose: Not Given Documented by: Ondansetron HCl (Zofran) 4 mg IV Q8H PRN PRN PRN Reason: NAUSEA/VOMITING Last Admin: 07/26/19 12:30 Dose: 4 mg Documented by: Pantoprazole Sodium (Protonix) 20 mg PO DAILY [facility] Last Admin: 07/28/19 09:25 Dose: 20 mg Documented by: Polyethylene Glycol (Miralax) 17 gm PO DAILY [facility] Last Admin: 07/28/19 09:26 Dose: 17 gm Documented by: Potassium Chloride (K-Dur) 20 meq PO BIDCM [facility] Last Admin: 07/28/19 09:26 Dose: 20 meq Documented by: Senna (Senokot) 1 tablet PO BID [facility] Last Admin: 07/28/19 09:25 Dose: 1 tablet Documented by: Sodium Chloride () 10 - 40 ml IV UD PRN PRN Reason: SALINE FLUSH Last Admin: 07/27/19 21:48 Dose: 10 ml Documented by: Sucralfate (Carafate) 1 gm PO 4X/DAY PRN PRN Reason: GI UPSET Warfarin Sodium (Coumadin (Pbkc)) 3 mg PO SuMoTuWeThSa@1700 [facility] Last Admin: 07/27/19 17:38 Dose: 3 mg Documented by: Warfarin Sodium (Coumadin (Pbkc)) 4 mg PO DAILY@1700 [facility] Last Admin: 07/27/19 17:38 Dose: 4 mg Documented by: Zolpidem Tartrate (Ambien (Generic)) 5 mg PO QHS PRN PRN PRN Reason: INSOMNIA Last Admin: 07/27/19 21:48 Dose: 5 mg Documented by: STROKE Vital Signs/Narrative: Vital Signs Temp Pulse Resp BP Pulse Ox 07/28/19 13:00 98.0 F 81 20 H 123/73 H 99 07/28/19 11:08 83 27 H 100 07/28/19 11:00 97.8 F 82 28 H 160/97 H 96 Medical Necessity - Tobacco Use Smoking Status: Former smoker Assessment/Plan All Active Problems (Last Updated 07/12/19 @ 21:39 by Ailyn Ramirez MD) Atrial fibrillation with RVR (Acute) Leukocytosis (Acute) Lactic acidosis (Acute) 73-year-old female admitted with a complaint of shortness of breath and palpitations. 1. Acute hypoxic respiratory failure due to acute on chronic HFpEF and afib wtih RVR and COPD exacerbation On BiPAP overnight and now on 4 L of oxygen Cardizem drip has been weaned off. He is now on p.o. Cardizem 30 mg every 6. Cardiology on board. Heart rate is better controlled. Cumulative negative balance by 4 L since admission. pulmonology on board. On IV Solu-Medrol and azithromycin as well as breathing treatments. 2D echo (07/14/19): EF of 65% and unable to assess diastolic dysfunction due to arrhythmia. No regional motion abnormalities seen. RVSP was 45 mmHg. fluid restriction to 1500cc daily monitor intake and output chart strictly IV lasix 40mg bid Will need walking pulse ox upon discharge and per pulmonology, will benefit from sleep study. 2. Acute on chronic HFpEF: as under 1 3. Afib with RVR: as under 1. Cardizem drip weaned off. Now on p.o. Cardizem 30 mg every 6 metoprolol 50 mg twice daily. cardiology on board. on coumadin 4. COPD exacerbation: As under 1. Pulmonology on board. To follow up with Dr Mcnair upon discharge. 5. Depression: on citalopram and buspirone 6. History of DVT and PE: On Coumadin. INR is therapeutic at 2.6 7. Hypertension: on metoprolol and cardizem PO. DVT prophylaxis:on coumadin. INR today is 2.6 Code status: DNRCCA Code Visit Inpatient E&M: 23377 Subs Hosp L3
--- NOTE | 2019-07-28 14:32 | PCM.PN.CARD ---
Subjectve: The patient states she was somewhat more short of breath and dyspneic. She has been treated with a CPAP type device. She states it does help. Objective: Vital Signs Temp Pulse Resp BP Pulse Ox 98.0 F 81 20 H 123/73 H 99 07/28/19 13:00 07/28/19 13:00 07/28/19 13:00 07/28/19 13:00 07/28/19 13:00 Oxygen Flow Rate (L/min) 4 Oxygen Delivery Method Nasal Cannula Weight: 184 lb 15.485 oz Body Mass Index (BMI) 29.4 Intake and Output for Last 24 Hours 07/26/19 07/27/19 07/28/19 23:59 23:59 23:59 Intake Total 513.50 / 813.50 1023.50 / 1264.75 1061.42 / 1061.42 Output Total 1475 / 2325 2300 / 3840 2840 / 2840 Balance -961.50 / -1511.50 -1276.50 / -2575.25 -1778.58 / -1778.58 General: Awake, Cooperative, No Acute Distress, Obese HEENT: Atraumatic, Normocephalic, PERRL, EOMI, Sclera Non Icteric Neck: Supple, Good ROM, No JVD Lungs: Diminished Manuel Bases Cardiovascular: Irregular Rhythm, Normal S1, Normal S2 Abdomen: Bowel Sounds Present, Soft, Non Tender Extremities: Mild RLE Edema, Mild LLE Edema Psych/Mental Status: Appropriate 07/28/19 06:30: WBC 13.6 H, RBC 4.50, Hgb 12.0, Hct 42.1, MCV 93.6, MCH 26.7 L, MCHC 28.5 L, Plt Count 293, MPV 11.7, Immature Gran % (Auto) 0.400, Neut % (Auto) 90.7 H, Lymph % (Auto) 6.7 L, [place] % (Auto) 2.1, Eos % (Auto) 0.0, Baso % (Auto) 0.1, Absolute Neuts (auto) 12.4 H, Nucleated RBC % 0 07/28/19 06:30: PT 28.2 H, INR 2.6 07/28/19 06:30: Sodium 141, Potassium 4.4, Chloride 99, Carbon Dioxide 40.0 H, Anion Gap 2 L, BUN 29 H, Creatinine 0.71, Est GFR (MDRD) Af Amer 103, Est GFR (MDRD) Non-Af 85, BUN/Creatinine Ratio 40.7 H, Glucose 133 H, Calcium 9.6 Rhythm: Atrial fibrillation Medical Necessity - Tobacco Use Smoking Status: Former smoker Assessment/Plan 1. Atrial fibrillation with rapid ventricular response The patient presents with recurrent atrial fibrillation with rapid ventricular response. The present time she will continue her rate control therapy. She is already anticoagulated. She has been transitioned from IV diltiazem to oral diltiazem. Her dose will be adjusted. 2. Acute on chronic diastolic mediated CHF The patient presents with recurrent acute on chronic diastolic mediated CHF. She states she has been compliant with diet and medication. She appears to have episodes of exacerbation of her atrial dysrhythmia and her acute on chronic diastolic mediated CHF when she has exacerbation of underlying pulmonary disease process. The present time she will continue medical management which will include her diuretic therapy. 3. Hyperlipidemia She will continue medical management as deemed appropriate. 4. Hypertension Her blood pressure will be followed and her medications might be adjusted during her clinical course. 5. COPD She does have history of significant underlying pulmonary disease. She has been followed by pulmonology in the past. She has been evaluated by pulmonology. Their input is most appreciated. 6. Pulmonary hypertension Her most recent transthoracic echocardiogram estimating her right-sided pressures is noted. Her right-sided pressures were somewhat elevated. She will need continued medical therapy and O2 support. 7. Thromboembolic disease (history of DVT/PE) She remains anticoagulated at this time. This note was generated using a voice recognition system and there may be incorrect words, spelling or punctuation that were not noted when reviewing the office note prior to saving.
[2019-07-28] MEDS: dilTIAZem CD 120 MG Capsule PO ×2 (17:33→22:02)
[2019-07-28] MEDS: Bisacodyl 5 MG Tablet PO (17:33)
[2019-07-28 21:01] LABS: Bedside Glucose 127 mg/dL (70-110)
[2019-07-28] MEDS: 0.9% Saline Lock 10 ML Syringe IV (22:01)
[2019-07-28] MEDS: MELATONIN 3 MG TABLET 1.5 MG PO (22:02)
[2019-07-28] MEDS: busPIRone 5 MG Tablet 7.5 MG PO (22:15)
[2019-07-28] MEDS: Zolpidem Tartrate 5 MG Tablet PO (22:16)
[2019-07-28 22:30] LABS: Bedside Glucose 169 mg/dL (70-110)
[2019-07-29] VITALS (18 sets, daily range): BP systolic 120–141; BP diastolic 63–82; PULSE 80–123; RESP 12–20; TEMP 36.4–37; O2SAT 93–97
[2019-07-29] MEDS: 0.9% Saline Lock 10 ML Syringe IV ×2 (05:16→13:01)
[2019-07-29 06:26] LABS: Bedside Glucose 123 mg/dL (70-110)
[2019-07-29 06:27] LABS: Absolute Lymphocyte Count 1.04 X10^3/uL (0.83-4.51); Absolute Neutrophil Count 8.2 X10^3/uL (2.0-7.7); Basophil# 0.01 X10^3/uL; Basophil% 0.1 % (0-1); Hematocrit 39.3 % (37-47); Lymphocyte # 1.04 X10^3/ul (4.0); Lymphocyte % 10.8 % (19-41); Mean Corp Hgb Conc 30.5 g/dL (32-36); Mean Corpuscular Hgb 27.6 pg (27.0-32.0); Mean Corpuscular Volume 90.3 fL (81-99); Mean Platelet Vol. 11.9 fl (6.2-12.0); Monocyte# 0.31 X10^3/uL; Monocyte% 3.2 % (0-10); NRBC Flagged by Analyzer 0 % (0-5); Neutrophil # 8.17 X10^3/uL (2.7-7.7); Neutrophil % 85.1 % (47-70); Platelet Count 300 K/mm3 (150-450); RBC Distribution Width CV 17.4 % (11.6-14.6); Red Blood Count 4.35 M/mm3 (4.2-5.4); White Blood Count 9.6 K/mm3 (4.4-11.0)
[2019-07-29 06:41] LABS: Prothrombin Time (Protime)PT. 36.8 SECONDS (11.7-14.9)
[2019-07-29 06:49] LABS: Anion Gap 2 (5-15); BUN 33 mg/dL (7-18); BUN/Creat Ratio 50.8 RATIO (10-20); Calcium,Total 9.2 mg/dL (8.5-10.1); Chloride 97 mmol/L (98-107); Creatinine, Serum 0.65 mg/dL (0.55-1.02); EST Glomerular Filtration Rate 95 mL/min (>60); Est Glom Filt Rate - Afr Amer 114 mL/min (>60); Estimated Creatinine Clearance 47.27 ml/min; Glucose 123 mg/dL (74-106); Sodium Level 140 mmol/L (136-145)
[2019-07-29 07:00] LABS: International Normalized Ratio 3.7
[2019-07-29] MEDS: Ipratropium/Albuterol Sulfate 3 ML AMPUL.NEB INHALATION ×4 (07:27→20:07)
[2019-07-29] MEDS: Acetaminophen 325 MG Tablet 650 MG PO (08:08)
[2019-07-29] MEDS: Multivitamin (Healthy Eyes) Capsule 1 CAP PO ×2 (09:24→17:05)
[2019-07-29] MEDS: Cyanocobalamin 500 MCG Tablet PO (09:24)
[2019-07-29] MEDS: Ferrous Sulfate 325 MG Tablet PO ×2 (09:24→17:00)
[2019-07-29] MEDS: Citalopram 40 MG TABLET PO (09:25)
[2019-07-29] MEDS: dilTIAZem CD 120 MG Capsule PO ×2 (09:25→21:00)
[2019-07-29] MEDS: Furosemide 40 MG/4 ML Vial IV (09:26)
[2019-07-29] MEDS: Metoprolol Tartrate 50 MG Tablet PO ×2 (09:26→21:00)
[2019-07-29] MEDS: Polyethylene Glycol 3350 17 GM PACKET PO (09:27)
[2019-07-29] MEDS: Senna Tablet 1 TABLET PO ×2 (09:27→21:00)
[2019-07-29] MEDS: Pantoprazole Sodium 20 MG Tablet PO (09:27)
[2019-07-29] MEDS: Azithromycin 250 MG Tablet PO (09:27)
[2019-07-29] MEDS: Bisacodyl 5 MG Tablet PO (09:33)
--- NOTE | 2019-07-29 10:07 | PCM.PN.HOSP ---
Reason for Visit: Acute hypoxic respiratory failure secondary to heart failure and COPD exacerbation Patient is still short of breath on rescue BiPAP at night and as needed daytime. Vitals/I&O's: Vital Signs Temp Pulse Resp BP Pulse Ox 98.1 F 110 H 20 H 141/63 H 97 07/29/19 09:17 07/29/19 09:26 07/29/19 09:17 07/29/19 09:17 07/29/19 09:17 Oxygen Flow Rate (L/min) 2 Oxygen Delivery Method Nasal Cannula Weight: 181 lb 14.102 oz Body Mass Index (BMI) 29.4 Intake and Output for Last 24 Hours 07/27/19 07/28/19 07/29/19 23:59 23:59 23:59 Intake Total 1023.50 / 1264.75 1641.42 / 1641.42 140 / 140 Output Total 2300 / 3840 4165 / 4165 250 / 250 Balance -1276.50 / -2575.25 -2523.58 / -2523.58 -110 / -110 General: Alert, Oriented x3, Cooperative HEENT: Atraumatic, PERRLA, EOMI, Normocephalic Neck: Supple, No JVD, Negative Carotid Bruits Lungs: Diminished - Air entry diminished in bilateral lung sounds, Short of Breath, Tachypneic, Using Accessory Muscles Cardiovascular: Regular rate, Regular Rhythm, Normal S1, Normal S2, No murmurs Abdomen: Bowel Sounds Present, Soft, Non Tender, Non-Distended Extremities: Capillary Refill Less than 3 Seconds, Edema Skin: No rashes, No breakdown Musculoskeletal: No Tenderness to Palpation of Joints or Extremities, Arthritic Changes Neurological: Cranial nerves II-XII grossly intact, Deep Tendon Reflexes 2+/4 and Symmetrical, Neuro grossly intact Psych/Mental Status: Normal Affect, Appropriate Microbiology Past 72 Hours 07/28/19 09:03 Mucosa - Nasopharyngeal Respiratory Panel (PCR) - Final RSV A Laboratory Results 07/28/19 11:11: POC Glucose 194 H 07/28/19 16:40: POC Glucose 127 H 07/28/19 22:19: POC Glucose 169 H 07/29/19 05:58: WBC 9.6, RBC 4.35, Hgb 12.0, Hct 39.3, MCV 90.3, MCH 27.6, MCHC 30.5 L, RDW Std Deviation 58.0 H, RDW Coeff of Laura 17.4 H, Plt Count 300, MPV 11.9, Immature Gran % (Auto) 0.800, Neut % (Auto) 85.1 H, Lymph % (Auto) 10.8 L, [place] % (Auto) 3.2, Eos % (Auto) 0.0, Baso % (Auto) 0.1, Absolute Neuts (auto) 8.2 H, Absolute Lymphs (auto) 1.04, Nucleated RBC % 0 07/29/19 05:58: PT 36.8 H, INR 3.7 H* 07/29/19 05:58: Sodium 140, Potassium 4.0, Chloride 97 L, Carbon Dioxide 41.0 H, Anion Gap 2 L, BUN 33 H, Creatinine 0.65, Estim Creat Clear Calc 47.27, Est GFR (MDRD) Af Amer 114, Est GFR (MDRD) Non-Af 95, BUN/Creatinine Ratio 50.8 H, Glucose 123 H, Calcium 9.2 07/29/19 06:21: POC Glucose 123 H Current Medications Acetaminophen (Tylenol) 650 mg PO Q6H PRN PRN PRN Reason: pain and fever Last Admin: 07/29/19 08:08 Dose: 650 mg Documented by: Albuterol/Ipratropium (Duoneb) 3 ml INHALATION 4X/DAY.RT [facility] Last Admin: 07/29/19 07:27 Dose: 3 ml Documented by: Azithromycin (Zithromax) 250 mg PO Q24 [facility] Stop: 07/31/19 10:01 Last Admin: 07/29/19 09:27 Dose: 250 mg Documented by: Bisacodyl (Dulcolax) 5 mg PO DAILY [facility] Last Admin: 07/29/19 09:33 Dose: 5 mg Documented by: Buspirone HCl (Buspar) 7.5 mg PO QHS [facility] [place] Last Admin: 07/28/19 22:15 Dose: 7.5 mg Documented by: Citalopram Hydrobromide (Celexa) 40 mg PO DAILY [facility] [place] Last Admin: 07/29/19 09:25 Dose: 40 mg Documented by: Cyanocobalamin (Vitamin B12) 500 mcg PO DAILY@0800 [facility] [place] Last Admin: 07/29/19 09:24 Dose: 500 mcg Documented by: Diltiazem HCl (Cardizem Cd) 120 mg PO Q12 [facility] [place] Last Admin: 07/29/19 09:25 Dose: 120 mg Documented by: Ergocalciferol (Vitamin D) 50,000 unit PO TH [facility] Ferrous Sulfate (Ferrous Sulfate) 325 mg PO BIDCM [facility] Last Admin: 07/29/19 09:24 Dose: 325 mg Documented by: Furosemide (Lasix) 40 mg IV BIDLX [facility] [place] Last Admin: 07/29/19 09:26 Dose: 40 mg Documented by: Glucagon () 1 mg IM .X1 PRN PRN Reason: Hypoglycemia Sodium Chloride () 500 mls @ 15 mls/hr IV PRN PRN PRN Reason: Blood Transfusion Sodium Chloride () 250 mls @ 15 mls/hr IV .[id number] PRN PRN Reason: Saline Flush Sodium Chloride () 250 mls @ 15 mls/hr IV .[id number] PRN PRN Reason: Additional IVPB Infusion Dextrose (Dextrose 10%-Water) 250 mls @ 999 mls/hr IV .Q16M PRN; Protocol PRN Reason: HYPOGLYCEMIA Melatonin (Melatonin) 1.5 mg PO QHS [facility] [place] Last Admin: 07/28/19 22:02 Dose: 1.5 mg Documented by: Methylprednisolone (Solu-Medrol) 40 mg IV Q8 [facility] Last Admin: 07/29/19 05:16 Dose: 40 mg Documented by: Metoprolol Tartrate (Lopressor (Beta [place])) 50 mg PO BID [facility] [place] Last Admin: 07/29/19 09:26 Dose: 50 mg Documented by: Multivitamins/Minerals (Healthy Eyes) 1 capsule PO BIDCM [facility] Last Admin: 07/29/19 09:24 Dose: 1 capsule Documented by: Nutritional Formula (Lactose Free) (Glucerna Shake) 120 ml PO 4X/DAY [facility] [place] Last Admin: 07/29/19 09:26 Dose: Not Given Documented by: Ondansetron HCl (Zofran) 4 mg IV Q8H PRN PRN PRN Reason: NAUSEA/VOMITING Last Admin: 07/26/19 12:30 Dose: 4 mg Documented by: Pantoprazole Sodium (Protonix) 20 mg PO DAILY [facility] [place] Last Admin: 07/29/19 09:27 Dose: 20 mg Documented by: Polyethylene Glycol (Miralax) 17 gm PO DAILY [facility] Last Admin: 07/29/19 09:27 Dose: 17 gm Documented by: Potassium Chloride (K-Dur) 20 meq PO BIDCM [facility] Last Admin: 07/29/19 09:28 Dose: 20 meq Documented by: Senna (Senokot) 1 tablet PO BID [facility] [place] Last Admin: 07/29/19 09:27 Dose: 1 tablet Documented by: Sodium Chloride () 10 - 40 ml IV UD PRN PRN Reason: SALINE FLUSH Last Admin: 07/29/19 05:16 Dose: 10 ml Documented by: Sucralfate (Carafate) 1 gm PO 4X/DAY PRN PRN Reason: GI UPSET Zolpidem Tartrate (Ambien (Generic)) 5 mg PO QHS PRN PRN PRN Reason: INSOMNIA Last Admin: 07/28/19 22:16 Dose: 5 mg Documented by: STROKE Vital Signs/Narrative: Vital Signs Temp Pulse Resp BP Pulse Ox 07/29/19 09:26 110 H 07/29/19 09:17 98.1 F 110 H 20 H 141/63 H 97 07/29/19 07:27 81 16 96 07/29/19 06:54 80 Medical Necessity - Tobacco Use Smoking Status: Former smoker Assessment/Plan All Active Problems (Last Updated 07/12/19 @ 21:39 by Ailyn Ramirez MD) Atrial fibrillation with RVR (Acute) Leukocytosis (Acute) Lactic acidosis (Acute) This is [id number] female admitted with a complaint of shortness of breath and palpitations. History of COPD/emphysema. Patient follows Dr. Junior. Prior PFT on January 2017 showed evidence of severe obstructive lung disease with FEV1 31% of predicted. Patient on chronic 2 L of home oxygen. History of smoking half pack per day for 20 years quit in 2000. She also has pulmonary hypertension paroxysmal A. fib. 1. Acute on chronic hypoxic respiratory failure due to acute on chronic HFpEF and afib wtih RVR and COPD exacerbation due to RSV infection: On BiPAP. Patient is still short of breath. On lung podiatry steroid. On diuretic. Incentive spirometry and chest physiotherapy. Patient follows Dr. Junior but can follow our orthotics prosthetics assistant after discharge. 2. Acute on chronic HFpEF with moderate pulmonary hypertension: 2D echo (07/14/19): EF of 65% and unable to assess diastolic dysfunction due to arrhythmia. No regional motion abnormalities seen. RVSP was 45 mmHg. 3. Afib with RVR: On Cardizem and metoprolol oral. Cardizem drain discontinued. Patient seen by quality assurance practice manager. On Coumadin. 4. COPD exacerbation: As mentioned above 5. Depression: on citalopram and buspirone 6. History of DVT and PE: INR 3.7, supratherapeutic. Coumadin discontinued. 7. Hypertension: on metoprolol and cardizem PO. DVT prophylaxis: As mentioned above Code status: DNRCCA Code Visit Inpatient E&M: 82110 Subs Hosp L3
--- NOTE | 2019-07-29 10:43 | PCM.PN.PUL ---
Subjective: The patient was seen and examined at the bedside this morning. Events from the last 24 hours have been reviewed. The patient is currently afebrile, hemodynamically stable and maintaining appropriate oxygen saturations on 2 L/min via nasal cannula. The patient currently has a scheduled appointment with Dr. Junior pendmandeep. The patient has a known history of chronic obstructive pulmonary disease and was followed previously by Dr. Chavarria at [facility]. Prior pulmonary function studies from January 2017 did reveal evidence of severe obstructive lung disease with an FEV1 of 31% of predicted. The patient is currently on scheduled duo nebs and budesonide as an outpatient. She does have a baseline 2 L/min supplemental oxygen requirement at all times. Per documentation from the patient's pulmonary provider's office, she does have a history of recurrent COPD exacerbations. She does have a smoking history of 0.5 packs/day x 20 years, having quit completely in 2000. The patient is chronically anticoagulated due to a history of venous thromboembolic disease. She also has underlying pulmonary hypertension and paroxysmal atrial fibrillation. Objective: The patient's most recent lab work, culture data and imaging studies have all been personally reviewed. Respiratory viral panel was positive for RSV. - Physical Exam Vitals/I&O's: Vital Signs Temp Pulse Resp BP Pulse Ox 98.1 F 110 H 20 H 141/63 H 97 07/29/19 09:17 07/29/19 09:26 07/29/19 09:17 07/29/19 09:17 07/29/19 09:17 Oxygen Flow Rate (L/min) 2 Oxygen Delivery Method Nasal Cannula Weight: 181 lb 14.102 oz Body Mass Index (BMI) 29.4 Intake and Output for Last 24 Hours 07/27/19 07/28/19 07/29/19 23:59 23:59 23:59 Intake Total 1023.50 / 1264.75 1641.42 / 1641.42 140 / 140 Output Total 2300 / 3840 4165 / 4165 250 / 250 Balance -1276.50 / -2575.25 -2523.58 / -2523.58 -110 / -110 General: Alert, Cooperative, No apparent distress HEENT: Atraumatic, PERRLA, Normocephalic Oral: No Gingival or Mucosal Lesions/ Ulcerations Neck: Supple, No Nodes, Trachea Midline Lungs: Diminished, Wheezes Cardiovascular: Normal S1, Normal S2, No murmurs, Irregular Rate Abdomen: Bowel Sounds Present, Soft, Non Tender Extremities: No clubbing, No cyanosis Skin: No breakdown Musculoskeletal: No Tenderness to Palpation of Joints or Extremities Lymphatic: No Cervical, Supraclavicular, or Inguinal Adenopathy Neurological: Neuro grossly intact Psych/Mental Status: Normal Affect, Appropriate Labs (Last 48 Hours) 07/27/19 07/27/19 07/27/19 12:11 16:17 22:58 WBC RBC Hgb Hct MCV MCH MCHC RDW Std Deviation RDW Coeff of Laura Plt Count MPV Immature Gran % (Auto) Neut % (Auto) Lymph % (Auto) Charlton % (Auto) Eos % (Auto) Baso % (Auto) Absolute Neuts (auto) Absolute Lymphs (auto) Nucleated RBC % PT INR Sodium Potassium Chloride Carbon Dioxide Anion Gap BUN Creatinine Estim Creat Clear Calc Est GFR (MDRD) Af Amer Est GFR (MDRD) Non-Af BUN/Creatinine Ratio Glucose Calcium POC Glucose 143 H 133 H 126 H 07/28/19 07/28/19 07/28/19 06:12 06:30 06:30 WBC 13.6 H RBC 4.50 Hgb 12.0 Hct 42.1 MCV 93.6 MCH 26.7 L MCHC 28.5 L RDW Std Deviation 61.6 H RDW Coeff of Laura 18.0 H Plt Count 293 MPV 11.7 Immature Gran % (Auto) 0.400 Neut % (Auto) 90.7 H Lymph % (Auto) 6.7 L Charlton % (Auto) 2.1 Eos % (Auto) 0.0 Baso % (Auto) 0.1 Absolute Neuts (auto) 12.4 H Absolute Lymphs (auto) 0.92 Nucleated RBC % 0 PT 28.2 H INR 2.6 Sodium Potassium Chloride Carbon Dioxide Anion Gap BUN Creatinine Estim Creat Clear Calc Est GFR (MDRD) Af Amer Est GFR (MDRD) Non-Af BUN/Creatinine Ratio Glucose Calcium POC Glucose 118 H 07/28/19 07/28/19 07/28/19 06:30 11:11 16:40 WBC RBC Hgb Hct MCV MCH MCHC RDW Std Deviation RDW Coeff of Laura Plt Count MPV Immature Gran % (Auto) Neut % (Auto) Lymph % (Auto) Charlton % (Auto) Eos % (Auto) Baso % (Auto) Absolute Neuts (auto) Absolute Lymphs (auto) Nucleated RBC % PT INR Sodium 141 Potassium 4.4 Chloride 99 Carbon Dioxide 40.0 H Anion Gap 2 L BUN 29 H Creatinine 0.71 Estim Creat Clear Calc 47.27 Est GFR (MDRD) Af Amer 103 Est GFR (MDRD) Non-Af 85 BUN/Creatinine Ratio 40.7 H Glucose 133 H Calcium 9.6 POC Glucose 194 H 127 H 07/28/19 07/29/19 07/29/19 22:19 05:58 05:58 WBC 9.6 RBC 4.35 Hgb 12.0 Hct 39.3 MCV 90.3 MCH 27.6 MCHC 30.5 L RDW Std Deviation 58.0 H RDW Coeff of Laura 17.4 H Plt Count 300 MPV 11.9 Immature Gran % (Auto) 0.800 Neut % (Auto) 85.1 H Lymph % (Auto) 10.8 L Charlton % (Auto) 3.2 Eos % (Auto) 0.0 Baso % (Auto) 0.1 Absolute Neuts (auto) 8.2 H Absolute Lymphs (auto) 1.04 Nucleated RBC % 0 PT 36.8 H INR 3.7 H* Sodium Potassium Chloride Carbon Dioxide Anion Gap BUN Creatinine Estim Creat Clear Calc Est GFR (MDRD) Af Amer Est GFR (MDRD) Non-Af BUN/Creatinine Ratio Glucose Calcium POC Glucose 169 H 07/29/19 07/29/19 05:58 06:21 WBC RBC Hgb Hct MCV MCH MCHC RDW Std Deviation RDW Coeff of Laura Plt Count MPV Immature Gran % (Auto) Neut % (Auto) Lymph % (Auto) Charlton % (Auto) Eos % (Auto) Baso % (Auto) Absolute Neuts (auto) Absolute Lymphs (auto) Nucleated RBC % PT INR Sodium 140 Potassium 4.0 Chloride 97 L Carbon Dioxide 41.0 H Anion Gap 2 L BUN 33 H Creatinine 0.65 Estim Creat Clear Calc 47.27 Est GFR (MDRD) Af Amer 114 Est GFR (MDRD) Non-Af 95 BUN/Creatinine Ratio 50.8 H Glucose 123 H Calcium 9.2 POC Glucose 123 H Microbiology 07/28/19 09:03 Mucosa - Nasopharyngeal Respiratory Panel (PCR) - Final RSV A Clinical Impression(s) from Imaging Studies Chest X-Ray 07/26/19 06:55 IMPRESSION: 1. No significant change. Mild pulmonary venous congestion which appears chronic. Associated mild peribronchial thickening. 2. No focal infiltrate or pneumonia identified. at 0803 Reported and signed by: Matthew Grullon MD Electronically Signed: Matthew Grullon, at 8:01 EST Tel , Service support , Current Medications Acetaminophen (Tylenol) 650 mg PO Q6H PRN PRN PRN Reason: pain and fever Last Admin: 07/29/19 08:08 Dose: 650 mg Documented by: Albuterol/Ipratropium (Duoneb) 3 ml INHALATION 4X/DAY.RT [facility] Last Admin: 07/29/19 07:27 Dose: 3 ml Documented by: Azithromycin (Zithromax) 250 mg PO Q24 [facility] Stop: 07/31/19 10:01 Last Admin: 07/29/19 09:27 Dose: 250 mg Documented by: Bisacodyl (Dulcolax) 5 mg PO DAILY [facility] Last Admin: 07/29/19 09:33 Dose: 5 mg Documented by: Buspirone HCl (Buspar) 7.5 mg PO QHS [facility] Last Admin: 07/28/19 22:15 Dose: 7.5 mg Documented by: Citalopram Hydrobromide (Celexa) 40 mg PO DAILY [facility] Last Admin: 07/29/19 09:25 Dose: 40 mg Documented by: Cyanocobalamin (Vitamin B12) 500 mcg PO DAILY@0800 [facility] Last Admin: 07/29/19 09:24 Dose: 500 mcg Documented by: Diltiazem HCl (Cardizem Cd) 120 mg PO Q12 [facility] Last Admin: 07/29/19 09:25 Dose: 120 mg Documented by: Ergocalciferol (Vitamin D) 50,000 unit PO TH [facility] Ferrous Sulfate (Ferrous Sulfate) 325 mg PO BIDCM [facility] Last Admin: 07/29/19 09:24 Dose: 325 mg Documented by: Furosemide (Lasix) 40 mg IV BIDLX [facility] Last Admin: 07/29/19 09:26 Dose: 40 mg Documented by: Glucagon () 1 mg IM .X1 PRN PRN Reason: Hypoglycemia Sodium Chloride () 500 mls @ 15 mls/hr IV PRN PRN PRN Reason: Blood Transfusion Sodium Chloride () 250 mls @ 15 mls/hr IV .[id number] PRN PRN Reason: Saline Flush Sodium Chloride () 250 mls @ 15 mls/hr IV .[id number] PRN PRN Reason: Additional IVPB Infusion Dextrose (Dextrose 10%-Water) 250 mls @ 999 mls/hr IV .Q16M PRN; Protocol PRN Reason: HYPOGLYCEMIA Melatonin (Melatonin) 1.5 mg PO QHS [facility] Last Admin: 07/28/19 22:02 Dose: 1.5 mg Documented by: Methylprednisolone (Solu-Medrol) 40 mg IV Q8 [facility] Last Admin: 07/29/19 05:16 Dose: 40 mg Documented by: Metoprolol Tartrate (Lopressor (Beta Madison)) 50 mg PO BID [facility] Last Admin: 07/29/19 09:26 Dose: 50 mg Documented by: [facility]ivitamins/Minerals ([facility]y [facility]) [facility] Last Admin: 07/29/19 09:24 Dose: 1 capsule Documented by: Nutritional Formula (Lactose Free) (Glucerna Shake) 120 ml PO 4X/DAY [facility] Last Admin: 07/29/19 09:26 Dose: Not Given Documented by: Ondansetron HCl (Zofran) 4 mg IV Q8H PRN PRN PRN Reason: NAUSEA/VOMITING Last Admin: 07/26/19 12:30 Dose: 4 mg Documented by: Pantoprazole Sodium (Protonix) 20 mg PO DAILY [facility] Last Admin: 07/29/19 09:27 Dose: 20 mg Documented by: Polyethylene Glycol (Miralax) 17 gm PO DAILY [facility] Last Admin: 07/29/19 09:27 Dose: 17 gm Documented by: Potassium Chloride (K-Dur) 20 meq PO BIDCM [facility] Last Admin: 07/29/19 09:28 Dose: 20 meq Documented by: Senna (Senokot) 1 tablet PO BID [facility] Last Admin: 07/29/19 09:27 Dose: 1 tablet Documented by: Sodium Chloride () 10 - 40 ml IV UD PRN PRN Reason: SALINE FLUSH Last Admin: 07/29/19 05:16 Dose: 10 ml Documented by: Sucralfate (Carafate) 1 gm PO 4X/DAY PRN PRN Reason: GI UPSET Zolpidem Tartrate (Ambien (Generic)) 5 mg PO QHS PRN PRN PRN Reason: INSOMNIA Last Admin: 07/28/19 22:16 Dose: 5 mg Documented by: Medical Necessity - Tobacco Use Smoking Status: Former smoker Assessment/Plan All Active Problems (Last Updated 07/12/19 @ 21:39 by Ailyn Ramirez MD) Atrial fibrillation with RVR (Acute) Leukocytosis (Acute) Lactic acidosis (Acute) RECOMMENDATIONS: 1. Continue scheduled bronchodilators and steroids. 2. Okay to discontinue azithromycin. 3. Wean supplemental oxygen to maintain saturations at or above 90%. 4. Encourage incentive spirometer use and mobilize patient as tolerated. 5. Perform walking oximetry study prior to consideration for discharge home. 6. Outpatient pulmonary follow-up strongly recommended. IMPRESSIONS: 1. Acute on chronic hypoxemic respiratory failure secondary to COPD with exacerbation due to RSV infection Continue current supportive measures with scheduled bronchodilators and steroids. Azithromycin can be discontinued from my perspective. Continue rate/rhythm control strategy along with scheduled diuretic therapy. Wean supplemental oxygen to maintain saturations at or above 90%. Encourage incentive spirometer use and mobilize patient as tolerated. The patient currently has an appointment with Dr. Junior, but could be seen in our office in 2 weeks following discharge with nurse practitioner if she chooses given that she has been seen multiple times in the hospital. 2. Acute on chronic diastolic congestive heart failure secondary to A. fib with RVR Cardiology is following. Continue with diuresis and rate control. Patient would benefit from outpatient optimization of comorbid conditions to avoid tachycardic response. 3. Chronic anemia/history of DVT PE/depression/anxiety/hypertension Complicates care, management, recovery and prognosis. Okay to continue with baseline medications. This note was generated with [employer] dictation software. It may contain incorrect words, spelling, and punctuation that were not noted in checking the note before signing. Code Visit Inpatient E&M: 47608 Subs Hosp L2
--- NOTE | 2019-07-29 11:16 | CASEMGMT ---
Updates faxed to [facility]. SW wrote on fax face sheet patient is not ready for d/c today. Plan: d/c back to [facility] under skilled level of care when ready. Regla VIZCARRA MSW
[2019-07-29 12:06] LABS: Bedside Glucose 171 mg/dL (70-110)
--- NOTE | 2019-07-29 15:02 | CPS ---
PT PLACED BACK ON BIPAP PER PT REQUEST.
--- NOTE | 2019-07-29 15:24 | NURSING ---
Green removed at this time per nurse driven protocol
--- NOTE | 2019-07-29 16:08 | PCM.PN.CARD ---
Subjectve: The patient looks somewhat better and states she feels somewhat better today. She believes her breathing and her edema have improved overall. Objective: Vital Signs Temp Pulse Resp BP Pulse Ox 97.8 F 89 20 H 120/77 93 07/29/19 15:14 07/29/19 15:14 07/29/19 15:14 07/29/19 15:14 07/29/19 15:14 Oxygen Flow Rate (L/min) 2 Oxygen Delivery Method Bi-pap Weight: 181 lb 14.102 oz Body Mass Index (BMI) 29.4 Intake and Output for Last 24 Hours 07/27/19 07/28/19 07/29/19 23:59 23:59 23:59 Intake Total 1023.50 / 1264.75 1641.42 / 1641.42 620 / 620 Output Total 2300 / 3840 4165 / 4165 1000 / 1000 Balance -1276.50 / -2575.25 -2523.58 / -2523.58 -380 / -380 General: Awake, Alert, Oriented x 3, Cooperative, No Acute Distress HEENT: Atraumatic, Normocephalic, PERRL, EOMI, Sclera Non Icteric Oral: Moist Mucosa Neck: Supple, Good ROM, No JVD Lungs: Diminished Manuel Bases Cardiovascular: Irregular Rhythm, Normal S1, Normal S2 Abdomen: Bowel Sounds Present, Soft, Non Tender Extremities: Trace RLE Edema, Trace LLE Edema Psych/Mental Status: Appropriate 07/29/19 05:58: WBC 9.6, RBC 4.35, Hgb 12.0, Hct 39.3, MCV 90.3, MCH 27.6, MCHC 30.5 L, Plt Count 300, MPV 11.9, Immature Gran % (Auto) 0.800, Neut % (Auto) 85.1 H, Lymph % (Auto) 10.8 L, [place] % (Auto) 3.2, Eos % (Auto) 0.0, Baso % (Auto) 0.1, Absolute Neuts (auto) 8.2 H, Nucleated RBC % 0 07/29/19 05:58: PT 36.8 H, INR 3.7 H* 07/29/19 05:58: Sodium 140, Potassium 4.0, Chloride 97 L, Carbon Dioxide 41.0 H, Anion Gap 2 L, BUN 33 H, Creatinine 0.65, Est GFR (MDRD) Af Amer 114, Est GFR (MDRD) Non-Af 95, BUN/Creatinine Ratio 50.8 H, Glucose 123 H, Calcium 9.2 Rhythm: Atrial fibrillation Medical Necessity - Tobacco Use Smoking Status: Former smoker Assessment/Plan 1. Atrial fibrillation with rapid ventricular response The patient presents with recurrent atrial fibrillation with rapid ventricular response. The present time she will continue her rate control therapy. She is already anticoagulated. She has been transitioned from IV diltiazem to oral diltiazem. Her dose will be adjusted. 2. Acute on chronic diastolic mediated CHF The patient presents with recurrent acute on chronic diastolic mediated CHF. She states she has been compliant with diet and medication. She appears to have episodes of exacerbation of her atrial dysrhythmia and her acute on chronic diastolic mediated CHF when she has exacerbation of underlying pulmonary disease process. The present time she will continue medical management which will include her diuretic therapy. This will include transition of her IV diuretics back to oral diuretics. 3. Hyperlipidemia She will continue medical management as deemed appropriate. 4. Hypertension Her blood pressure will be followed and her medications might be adjusted during her clinical course. 5. COPD She does have history of significant underlying pulmonary disease. She has been followed by pulmonology in the past. She has been evaluated by pulmonology. Their input is most appreciated. 6. Pulmonary hypertension Her most recent transthoracic echocardiogram estimating her right-sided pressures is noted. Her right-sided pressures were somewhat elevated. She will need continued medical therapy and O2 support. 7. Thromboembolic disease (history of DVT/PE) She remains anticoagulated at this time. This note was generated using a voice recognition system and there may be incorrect words, spelling or punctuation that were not noted when reviewing the office note prior to saving.
[2019-07-29] MEDS: Furosemide 40 MG Tablet PO (17:01)
[2019-07-29 17:06] LABS: Bedside Glucose 75 mg/dL (70-110)
[2019-07-29] MEDS: busPIRone 5 MG Tablet 7.5 MG PO (21:00)
[2019-07-29] MEDS: MELATONIN 3 MG TABLET 1.5 MG PO (21:00)
[2019-07-29] MEDS: Zolpidem Tartrate 5 MG Tablet PO (21:15)
[2019-07-29 22:20] LABS: Bedside Glucose 210 mg/dL (70-110)
[2019-07-30] VITALS (16 sets, daily range): BP systolic 120–147; BP diastolic 74–100; PULSE 80–104; RESP 12–20; TEMP 36.3–36.9; O2SAT 94–99
[2019-07-30 06:30] LABS: Bedside Glucose 130 mg/dL (70-110)
[2019-07-30] MEDS: Ipratropium/Albuterol Sulfate 3 ML AMPUL.NEB INHALATION ×4 (07:01→19:41)
[2019-07-30 07:18] LABS: Absolute Lymphocyte Count 1.31 X10^3/uL (0.83-4.51); Absolute Neutrophil Count 7.7 X10^3/uL (2.0-7.7); Hematocrit 40.2 % (37-47); Hemoglobin 11.9 g/dL (12.0-15.0); Lymphocyte # 1.31 X10^3/ul (4.0); Lymphocyte % 14.1 % (19-41); Mean Corp Hgb Conc 29.6 g/dL (32-36); Mean Corpuscular Hgb 26.7 pg (27.0-32.0); Mean Corpuscular Volume 90.3 fL (81-99); Mean Platelet Vol. 11.6 fl (6.2-12.0); Monocyte# 0.26 X10^3/uL; Monocyte% 2.8 % (0-10); NRBC Flagged by Analyzer 0 % (0-5); Neutrophil # 7.67 X10^3/uL (2.7-7.7); Neutrophil % 82.7 % (47-70); POSITIVE MORPHOLOGY YES; Platelet Count 325 K/mm3 (150-450); RBC Distribution Width CV 17.6 % (11.6-14.6); RBC Distribution Width SD 58.5 fl (35.1-43.9); Red Blood Count 4.45 M/mm3 (4.2-5.4); White Blood Count 9.3 K/mm3 (4.4-11.0)
[2019-07-30 07:23] LABS: Differential Indicated SCAN CRITERIA MET
[2019-07-30 07:34] LABS: Prothrombin Time (Protime)PT. 35.3 SECONDS (11.7-14.9)
[2019-07-30 07:35] LABS: International Normalized Ratio 3.5
[2019-07-30 07:39] LABS: Anion Gap 3 (5-15); BUN 39 mg/dL (7-18); BUN/Creat Ratio 49.7 RATIO (10-20); Chloride 98 mmol/L (98-107); Creatinine, Serum 0.78 mg/dL (0.55-1.02); EST Glomerular Filtration Rate 76 mL/min (>60); Est Glom Filt Rate - Afr Amer 92 mL/min (>60); Estimated Creatinine Clearance 47.27 ml/min; Glucose 164 mg/dL (74-106); Potassium 3.9 mmol/L (3.5-5.1); Sodium Level 143 mmol/L (136-145)
[2019-07-30 07:47] LABS: Reactive Lymphocyte 1+
[2019-07-30] MEDS: Cyanocobalamin 500 MCG Tablet PO (08:55)
[2019-07-30] MEDS: Multivitamin (Healthy Eyes) Capsule 1 CAP PO ×2 (08:55→16:53)
[2019-07-30] MEDS: Ferrous Sulfate 325 MG Tablet PO ×2 (08:55→16:52)
[2019-07-30] MEDS: Metoprolol Tartrate 50 MG Tablet PO ×2 (08:56→21:07)
[2019-07-30] MEDS: Bisacodyl 5 MG Tablet PO (08:56)
[2019-07-30] MEDS: Furosemide 40 MG Tablet PO ×2 (08:56→16:53)
[2019-07-30] MEDS: Citalopram 40 MG TABLET PO (08:56)
[2019-07-30] MEDS: dilTIAZem CD 120 MG Capsule PO ×2 (08:56→21:06)
[2019-07-30] MEDS: Pantoprazole Sodium 20 MG Tablet PO (08:57)
[2019-07-30] MEDS: Polyethylene Glycol 3350 17 GM PACKET PO (08:57)
[2019-07-30] MEDS: Azithromycin 250 MG Tablet PO (08:57)
[2019-07-30] MEDS: Senna/Docusate Sodium 1 Tablet 2 TABLET PO ×2 (10:02→21:07)
[2019-07-30 10:11] LABS: Bedside Glucose 203 mg/dL (70-110)
--- NOTE | 2019-07-30 10:29 | PCM.PN.PUL ---
Subjective: The patient was seen and examined at the bedside this morning. Events from the last 24 hours have been reviewed. The patient is currently afebrile, hemodynamically stable and maintaining appropriate oxygen saturations on 2 L/min via nasal cannula. Breathing quality is improving. The patient has a known history of chronic obstructive pulmonary disease and was followed previously by Dr. Chavarria at [facility]. Prior pulmonary function studies from January 2017 did reveal evidence of severe obstructive lung disease with an FEV1 of 31% of predicted. The patient is currently on scheduled duo nebs and budesonide as an outpatient. She does have a baseline 2 L/min supplemental oxygen requirement at all times. Per documentation from the patient's pulmonary provider's office, she does have a history of recurrent COPD exacerbations. She does have a smoking history of 0.5 packs/day x 20 years, having quit completely in 2000. The patient is chronically anticoagulated due to a history of venous thromboembolic disease. She also has underlying pulmonary hypertension and paroxysmal atrial fibrillation. Objective: The patient's most recent lab work, culture data and imaging studies have all been personally reviewed. Respiratory viral panel was positive for RSV. - Physical Exam Vitals/I&O's: Vital Signs Temp Pulse Resp BP Pulse Ox 97.5 F L 95 19 H 147/100 H 94 07/30/19 08:52 07/30/19 08:56 07/30/19 08:52 07/30/19 08:52 07/30/19 08:52 Oxygen Flow Rate (L/min) 2 Oxygen Delivery Method Nasal Cannula Weight: 182 lb 15.739 oz Body Mass Index (BMI) 29.4 Intake and Output for Last 24 Hours 07/28/19 07/29/19 07/30/19 23:59 23:59 23:59 Intake Total 1641.42 / 1641.42 2350 / 2350 240 / 240 Output Total 4165 / 4165 2350 / 2350 400 / 400 Balance -2523.58 / -2523.58 0 / 0 -160 / -160 General: Alert, Cooperative, No apparent distress HEENT: Atraumatic, Normocephalic Oral: No Gingival or Mucosal Lesions/ Ulcerations Neck: Supple, No Nodes, Trachea Midline Lungs: Diminished, Wheezes Cardiovascular: Normal S1, Normal S2, Irregular Rate Abdomen: Bowel Sounds Present, Soft, Non Tender Extremities: No clubbing, No cyanosis, No edema Skin: No breakdown Musculoskeletal: No Tenderness to Palpation of Joints or Extremities Lymphatic: No Cervical, Supraclavicular, or Inguinal Adenopathy Neurological: Cranial nerves II-XII grossly intact, Neuro grossly intact Psych/Mental Status: Normal Affect, Appropriate Labs (Last 48 Hours) 07/28/19 07/28/19 07/28/19 11:11 16:40 22:19 WBC RBC Hgb Hct MCV MCH MCHC RDW Std Deviation RDW Coeff of Laura Plt Count MPV Immature Gran % (Auto) Neut % (Auto) Lymph % (Auto) [place] % (Auto) Eos % (Auto) Baso % (Auto) Absolute Neuts (auto) Absolute Lymphs (auto) Nucleated RBC % Differential Comment Reactive Lymphocytes PT INR Sodium Potassium Chloride Carbon Dioxide Anion Gap BUN Creatinine Estim Creat Clear Calc Est GFR (MDRD) Af Amer Est GFR (MDRD) Non-Af BUN/Creatinine Ratio Glucose Calcium POC Glucose 194 H 127 H 169 H 07/29/19 07/29/19 07/29/19 05:58 05:58 05:58 WBC 9.6 RBC 4.35 Hgb 12.0 Hct 39.3 MCV 90.3 MCH 27.6 MCHC 30.5 L RDW Std Deviation 58.0 H RDW Coeff of Laura 17.4 H Plt Count 300 MPV 11.9 Immature Gran % (Auto) 0.800 Neut % (Auto) 85.1 H Lymph % (Auto) 10.8 L [place] % (Auto) 3.2 Eos % (Auto) 0.0 Baso % (Auto) 0.1 Absolute Neuts (auto) 8.2 H Absolute Lymphs (auto) 1.04 Nucleated RBC % 0 Differential Comment Reactive Lymphocytes PT 36.8 H INR 3.7 H* Sodium 140 Potassium 4.0 Chloride 97 L Carbon Dioxide 41.0 H Anion Gap 2 L BUN 33 H Creatinine 0.65 Estim Creat Clear Calc 47.27 Est GFR (MDRD) Af Amer 114 Est GFR (MDRD) Non-Af 95 BUN/Creatinine Ratio 50.8 H Glucose 123 H Calcium 9.2 POC Glucose 07/29/19 07/29/19 07/29/19 06:21 12:00 15:17 WBC RBC Hgb Hct MCV MCH MCHC RDW Std Deviation RDW Coeff of Laura Plt Count MPV Immature Gran % (Auto) Neut % (Auto) Lymph % (Auto) [place] % (Auto) Eos % (Auto) Baso % (Auto) Absolute Neuts (auto) Absolute Lymphs (auto) Nucleated RBC % Differential Comment Reactive Lymphocytes PT INR Sodium Potassium Chloride Carbon Dioxide Anion Gap BUN Creatinine Estim Creat Clear Calc Est GFR (MDRD) Af Amer Est GFR (MDRD) Non-Af BUN/Creatinine Ratio Glucose Calcium POC Glucose 123 H 171 H 75 07/29/19 07/30/19 07/30/19 21:18 06:11 07:06 WBC 9.3 RBC 4.45 Hgb 11.9 L Hct 40.2 MCV 90.3 MCH 26.7 L MCHC 29.6 L RDW Std Deviation 58.5 H RDW Coeff of Laura 17.6 H Plt Count 325 MPV 11.6 Immature Gran % (Auto) 0.400 Neut % (Auto) 82.7 H Lymph % (Auto) 14.1 L [place] % (Auto) 2.8 Eos % (Auto) 0.0 Baso % (Auto) 0.0 Absolute Neuts (auto) 7.7 Absolute Lymphs (auto) 1.31 Nucleated RBC % 0 Differential Comment COMMENT Reactive Lymphocytes 1+ PT INR Sodium Potassium Chloride Carbon Dioxide Anion Gap BUN Creatinine Estim Creat Clear Calc Est GFR (MDRD) Af Amer Est GFR (MDRD) Non-Af BUN/Creatinine Ratio Glucose Calcium POC Glucose 210 H 130 H 07/30/19 07/30/19 07/30/19 07:06 07:06 10:06 WBC RBC Hgb Hct MCV MCH MCHC RDW Std Deviation RDW Coeff of Laura Plt Count MPV Immature Gran % (Auto) Neut % (Auto) Lymph % (Auto) [place] % (Auto) Eos % (Auto) Baso % (Auto) Absolute Neuts (auto) Absolute Lymphs (auto) Nucleated RBC % Differential Comment Reactive Lymphocytes PT 35.3 H INR 3.5 H* Sodium 143 Potassium 3.9 Chloride 98 Carbon Dioxide 42.0 H Anion Gap 3 L BUN 39 H Creatinine 0.78 Estim Creat Clear Calc 47.27 Est GFR (MDRD) Af Amer 92 Est GFR (MDRD) Non-Af 76 BUN/Creatinine Ratio 49.7 H Glucose 164 H Calcium 9.0 POC Glucose 203 H Microbiology 07/28/19 09:03 Mucosa - Nasopharyngeal Respiratory Panel (PCR) - Final RSV A Clinical Impression(s) from Imaging Studies Chest X-Ray 07/26/19 06:55 IMPRESSION: 1. No significant change. Mild pulmonary venous congestion which appears chronic. Associated mild peribronchial thickening. 2. No focal infiltrate or pneumonia identified. at 0803 Reported and signed by: Matthew Grullon MD Electronically Signed: Matthew Grullon, at 8:01 EST Tel , Service support , Current Medications Acetaminophen (Tylenol) 650 mg PO Q6H PRN PRN PRN Reason: pain and fever Last Admin: 07/29/19 08:08 Dose: 650 mg Documented by: Albuterol/Ipratropium (Duoneb) 3 ml INHALATION 4X/DAY.RT [facility] Last Admin: 07/30/19 07:01 Dose: 3 ml Documented by: Azithromycin (Zithromax) 250 mg PO Q24 [facility] Stop: 07/31/19 10:01 Last Admin: 07/30/19 08:57 Dose: 250 mg Documented by: Bisacodyl (Dulcolax) 5 mg PO DAILY [facility] Last Admin: 07/30/19 08:56 Dose: 5 mg Documented by: Buspirone HCl (Buspar) 7.5 mg PO QHS [facility] Last Admin: 07/29/19 21:00 Dose: 7.5 mg Documented by: Citalopram Hydrobromide (Celexa) 40 mg PO DAILY [facility] Last Admin: 07/30/19 08:56 Dose: 40 mg Documented by: Cyanocobalamin (Vitamin B12) 500 mcg PO DAILY@0800 [facility] Last Admin: 07/30/19 08:55 Dose: 500 mcg Documented by: Diltiazem HCl (Cardizem Cd) 120 mg PO Q12 [facility] Last Admin: 07/30/19 08:56 Dose: 120 mg Documented by: Ergocalciferol (Vitamin D) 50,000 unit PO TH [facility] Ferrous Sulfate (Ferrous Sulfate) 325 mg PO BIDCM [facility] Last Admin: 07/30/19 08:55 Dose: 325 mg Documented by: Furosemide (Lasix) 40 mg PO BID@1000,1800 [facility] Last Admin: 07/30/19 08:56 Dose: 40 mg Documented by: Glucagon () 1 mg IM .X1 PRN PRN Reason: Hypoglycemia Sodium Chloride () 500 mls @ 15 mls/hr IV PRN PRN PRN Reason: Blood Transfusion Sodium Chloride () 250 mls @ 15 mls/hr IV .[id number] PRN PRN Reason: Saline Flush Sodium Chloride () 250 mls @ 15 mls/hr IV .[id number] PRN PRN Reason: Additional IVPB Infusion Dextrose (Dextrose 10%-Water) 250 mls @ 999 mls/hr IV .Q16M PRN; Protocol PRN Reason: HYPOGLYCEMIA Melatonin (Melatonin) 1.5 mg PO QHS [facility] Last Admin: 07/29/19 21:00 Dose: 1.5 mg Documented by: Methylprednisolone (Solu-Medrol) 40 mg IV Q8 [facility] Last Admin: 07/30/19 06:12 Dose: 40 mg Documented by: Metoprolol Tartrate (Lopressor (Beta [place])) 50 mg PO BID [facility] Last Admin: 07/30/19 08:56 Dose: 50 mg Documented by: [facility]ivitamins/Minerals ([facility]) [facility] Last Admin: 07/30/19 08:55 Dose: 1 capsule Documented by: Ondansetron HCl (Zofran) 4 mg IV Q8H PRN PRN PRN Reason: NAUSEA/VOMITING Last Admin: 07/26/19 12:30 Dose: 4 mg Documented by: Pantoprazole Sodium (Protonix) 20 mg PO DAILY [facility] Last Admin: 07/30/19 08:57 Dose: 20 mg Documented by: Polyethylene Glycol (Miralax) 17 gm PO DAILY [facility] Last Admin: 07/30/19 08:57 Dose: 17 gm Documented by: Potassium Chloride (K-Dur) [facility] Last Admin: 07/30/19 08:55 Dose: 20 meq Documented by: Senna/Docusate Sodium (Senokot-S, Caterina-Colace) 2 tablet PO BID [facility] Last Admin: 07/30/19 10:02 Dose: 2 tablet Documented by: Sodium Chloride () 10 - 40 ml IV UD PRN PRN Reason: SALINE FLUSH Last Admin: 07/29/19 13:01 Dose: 10 ml Documented by: Sucralfate (Carafate) 1 gm PO 4X/DAY PRN PRN Reason: GI UPSET Zolpidem Tartrate (Ambien (Generic)) 5 mg PO QHS PRN PRN PRN Reason: INSOMNIA Last Admin: 07/29/19 21:15 Dose: 5 mg Documented by: Medical Necessity - Tobacco Use Smoking Status: Former smoker Assessment/Plan All Active Problems (Last Updated 07/12/19 @ 21:39 by Ailyn Ramirez MD) Atrial fibrillation with RVR (Acute) Leukocytosis (Acute) Lactic acidosis (Acute) RECOMMENDATIONS: 1. Continue scheduled bronchodilators and steroids. Okay from my perspective to transition to prednisone 40 mg daily. 2. Okay to discontinue azithromycin. 3. Wean supplemental oxygen to maintain saturations at or above 90%. 4. Encourage incentive spirometer use and mobilize patient as tolerated. 5. Perform walking oximetry study prior to consideration for discharge home. 6. Outpatient pulmonary follow-up strongly recommended. IMPRESSIONS: 1. Acute on chronic hypoxemic respiratory failure secondary to COPD with exacerbation due to RSV infection Continue current supportive measures with scheduled bronchodilators and steroids. Azithromycin can be discontinued from my perspective. Continue rate/rhythm control strategy along with scheduled diuretic therapy. Wean supplemental oxygen to maintain saturations at or above 90%. Encourage incentive spirometer use and mobilize patient as tolerated. The patient currently has an appointment with Dr. Junior, but could be seen in our office in 2 weeks following discharge with our nurse practitioner, if she chooses, given that she has been seen multiple times in the hospital. 2. Acute on chronic diastolic congestive heart failure secondary to A. fib with RVR Cardiology is following. Continue with diuresis and rate control strategy. 3. Chronic anemia/history of DVT PE/depression/anxiety/hypertension Complicates care, management, recovery and prognosis. Okay to continue with baseline medications. This note was generated with [employer] dictation software. It may contain incorrect words, spelling, and punctuation that were not noted in checking the note before signing. Code Visit Inpatient E&M: 37609 Subs Hosp L2
--- NOTE | 2019-07-30 11:09 | PCM.PN.CARD ---
Subjectve: The patient looks better and states she feels better today. She notes her breathing has improved overall. Objective: Vital Signs Temp Pulse Resp BP Pulse Ox 97.5 F L 95 19 H 147/100 H 94 07/30/19 08:52 07/30/19 08:56 07/30/19 08:52 07/30/19 08:52 07/30/19 08:52 Oxygen Flow Rate (L/min) 2 Oxygen Delivery Method Nasal Cannula Weight: 182 lb 15.739 oz Body Mass Index (BMI) 29.4 Intake and Output for Last 24 Hours 07/28/19 07/29/19 07/30/19 23:59 23:59 23:59 Intake Total 1641.42 / 1641.42 2350 / 2350 240 / 240 Output Total 4165 / 4165 2350 / 2350 400 / 400 Balance -2523.58 / -2523.58 0 / 0 -160 / -160 General: Awake, Alert, Oriented x 3, Cooperative, No Acute Distress HEENT: Atraumatic, Normocephalic, PERRL, EOMI, Sclera Non Icteric Oral: Moist Mucosa Neck: Supple, Good ROM, No JVD Lungs: Diminished Manuel Bases, Expiratory Wheezes-Manuel Cardiovascular: Irregular Rhythm, Normal S1, Normal S2 Abdomen: Bowel Sounds Present, Soft, Non Tender Extremities: No edema Psych/Mental Status: Appropriate 07/30/19 07:06: WBC 9.3, RBC 4.45, Hgb 11.9 L, Hct 40.2, MCV 90.3, MCH 26.7 L, MCHC 29.6 L, Plt Count 325, MPV 11.6, Immature Gran % (Auto) 0.400, Neut % (Auto) 82.7 H, Lymph % (Auto) 14.1 L, [place] % (Auto) 2.8, Eos % (Auto) 0.0, Baso % (Auto) 0.0, Absolute Neuts (auto) 7.7, Nucleated RBC % 0 07/30/19 07:06: PT 35.3 H, INR 3.5 H* 07/30/19 07:06: Sodium 143, Potassium 3.9, Chloride 98, Carbon Dioxide 42.0 H, Anion Gap 3 L, BUN 39 H, Creatinine 0.78, Est GFR (MDRD) Af Amer 92, Est GFR (MDRD) Non-Af 76, BUN/Creatinine Ratio 49.7 H, Glucose 164 H, Calcium 9.0 Rhythm: Atrial fibrillation Medical Necessity - Tobacco Use Smoking Status: Former smoker Assessment/Plan 1. Atrial fibrillation with rapid ventricular response The patient presents with recurrent atrial fibrillation with rapid ventricular response. The present time she will continue her rate control therapy. She is already anticoagulated. She has been transitioned from IV diltiazem to oral diltiazem. Her dose will be adjusted. 2. Acute on chronic diastolic mediated CHF The patient presents with recurrent acute on chronic diastolic mediated CHF. She states she has been compliant with diet and medication. She appears to have episodes of exacerbation of her atrial dysrhythmia and her acute on chronic diastolic mediated CHF when she has exacerbation of underlying pulmonary disease process. The present time she will continue medical management which will include her diuretic therapy. This includes return to oral diuretic therapy. 3. Hyperlipidemia She will continue medical management as deemed appropriate. 4. Hypertension Her blood pressure will be followed and her medications might be adjusted during her clinical course. 5. COPD She does have history of significant underlying pulmonary disease. She has been followed by pulmonology in the past. She has been evaluated by pulmonology. Their input is most appreciated. 6. Pulmonary hypertension Her most recent transthoracic echocardiogram estimating her right-sided pressures is noted. Her right-sided pressures were somewhat elevated. She will need continued medical therapy and O2 support. 7. Thromboembolic disease (history of DVT/PE) She remains anticoagulated at this time. This note was generated using a voice recognition system and there may be incorrect words, spelling or punctuation that were not noted when reviewing the office note prior to saving.
--- NOTE | 2019-07-30 13:24 | PCM.PN.HOSP ---
Reason for Visit: Acute hypoxic respiratory failure secondary to heart failure and COPD exacerbation Patient is still short of breath on rescue BiPAP at night and as needed daytime; not ready for discharge yet. Objective: Patient gets easily short of breath, dyspnea on minimal exertion even on getting up from the bed and going to bathroom. No chest pain Vitals/I&O's: Vital Signs Temp Pulse Resp BP Pulse Ox 97.5 F L 102 H 20 H 147/100 H 94 07/30/19 08:52 07/30/19 11:12 07/30/19 11:12 07/30/19 08:52 07/30/19 08:52 Oxygen Flow Rate (L/min) 2 Oxygen Delivery Method Nasal Cannula Weight: 182 lb 15.739 oz Body Mass Index (BMI) 29.4 Intake and Output for Last 24 Hours 07/28/19 07/29/19 07/30/19 23:59 23:59 23:59 Intake Total 1641.42 / 1641.42 2350 / 2350 720 / 720 Output Total 4165 / 4165 2350 / 2350 400 / 400 Balance -2523.58 / -2523.58 0 / 0 320 / 320 General: Alert, Oriented x3, Cooperative HEENT: Atraumatic, PERRLA, EOMI, Normocephalic Neck: Supple, No JVD, Negative Carotid Bruits Lungs: Diminished, Rhonchi, Short of Breath Cardiovascular: Regular rate, Normal S1, Normal S2, Irregular Rate, Murmur Abdomen: Bowel Sounds Present, Soft, Non Tender, Non-Distended Extremities: No edema, Capillary Refill Less than 3 Seconds Skin: No rashes, No breakdown Musculoskeletal: No Tenderness to Palpation of Joints or Extremities, Arthritic Changes Neurological: Cranial nerves II-XII grossly intact, Deep Tendon Reflexes 2+/4 and Symmetrical, Neuro grossly intact Psych/Mental Status: Normal Affect, Appropriate Microbiology Past 72 Hours 07/28/19 09:03 Mucosa - Nasopharyngeal Respiratory Panel (PCR) - Final RSV A Laboratory Results 07/29/19 15:17: POC Glucose 75 07/29/19 21:18: POC Glucose 210 H 07/30/19 06:11: POC Glucose 130 H 07/30/19 07:06: WBC 9.3, RBC 4.45, Hgb 11.9 L, Hct 40.2, MCV 90.3, MCH 26.7 L, MCHC 29.6 L, RDW Std Deviation 58.5 H, RDW Coeff of Laura 17.6 H, Plt Count 325, MPV 11.6, Immature Gran % (Auto) 0.400, Neut % (Auto) 82.7 H, Lymph % (Auto) 14.1 L, [place] % (Auto) 2.8, Eos % (Auto) 0.0, Baso % (Auto) 0.0, Absolute Neuts (auto) 7.7, Absolute Lymphs (auto) 1.31, Nucleated RBC % 0, Differential Comment COMMENT, Reactive Lymphocytes 1+ 07/30/19 07:06: PT 35.3 H, INR 3.5 H* 07/30/19 07:06: Sodium 143, Potassium 3.9, Chloride 98, Carbon Dioxide 42.0 H, Anion Gap 3 L, BUN 39 H, Creatinine 0.78, Estim Creat Clear Calc 47.27, Est GFR (MDRD) Af Amer 92, Est GFR (MDRD) Non-Af 76, BUN/Creatinine Ratio 49.7 H, Glucose 164 H, Calcium 9.0 07/30/19 10:06: POC Glucose 203 H Current Medications Acetaminophen (Tylenol) 650 mg PO Q6H PRN PRN PRN Reason: pain and fever Last Admin: 07/29/19 08:08 Dose: 650 mg Documented by: Albuterol/Ipratropium (Duoneb) 3 ml INHALATION 4X/DAY.RT [facility] Last Admin: 07/30/19 11:12 Dose: 3 ml Documented by: Azithromycin (Zithromax) 250 mg PO Q24 [facility] Stop: 07/31/19 10:01 Last Admin: 07/30/19 08:57 Dose: 250 mg Documented by: Bisacodyl (Dulcolax) 5 mg PO DAILY [facility] Last Admin: 07/30/19 08:56 Dose: 5 mg Documented by: Buspirone HCl (Buspar) 7.5 mg PO QHS [facility] Last Admin: 07/29/19 21:00 Dose: 7.5 mg Documented by: Citalopram Hydrobromide (Celexa) 40 mg PO DAILY [facility] Last Admin: 07/30/19 08:56 Dose: 40 mg Documented by: Cyanocobalamin (Vitamin B12) 500 mcg PO DAILY@0800 [facility] Last Admin: 07/30/19 08:55 Dose: 500 mcg Documented by: Diltiazem HCl (Cardizem Cd) 120 mg PO Q12 [facility] Last Admin: 07/30/19 08:56 Dose: 120 mg Documented by: Ergocalciferol (Vitamin D) 50,000 unit PO TH [facility] Ferrous Sulfate (Ferrous Sulfate) 325 mg PO BIDCM [facility] Last Admin: 07/30/19 08:55 Dose: 325 mg Documented by: Furosemide (Lasix) 40 mg PO BID@1000,1800 [facility] Last Admin: 07/30/19 08:56 Dose: 40 mg Documented by: Glucagon () 1 mg IM .X1 PRN PRN Reason: Hypoglycemia Sodium Chloride () 500 mls @ 15 mls/hr IV PRN PRN PRN Reason: Blood Transfusion Sodium Chloride () 250 mls @ 15 mls/hr IV .[id number] PRN PRN Reason: Saline Flush Sodium Chloride () 250 mls @ 15 mls/hr IV .[id number] PRN PRN Reason: Additional IVPB Infusion Dextrose (Dextrose 10%-Water) 250 mls @ 999 mls/hr IV .Q16M PRN; Protocol PRN Reason: HYPOGLYCEMIA Melatonin (Melatonin) 1.5 mg PO QHS [facility] Last Admin: 07/29/19 21:00 Dose: 1.5 mg Documented by: Methylprednisolone (Solu-Medrol) 40 mg IV Q8 [facility] Last Admin: 07/30/19 06:12 Dose: 40 mg Documented by: Metoprolol Tartrate (Lopressor (Beta [place])) 50 mg PO BID [facility] Last Admin: 07/30/19 08:56 Dose: 50 mg Documented by: [facility]ivitamins/Minerals ([facility]y [facility]) [facility] Last Admin: 07/30/19 08:55 Dose: 1 capsule Documented by: Ondansetron HCl (Zofran) 4 mg IV Q8H PRN PRN PRN Reason: NAUSEA/VOMITING Last Admin: 07/26/19 12:30 Dose: 4 mg Documented by: Pantoprazole Sodium (Protonix) 20 mg PO DAILY [facility] Last Admin: 07/30/19 08:57 Dose: 20 mg Documented by: Polyethylene Glycol (Miralax) 17 gm PO DAILY [facility] Last Admin: 07/30/19 08:57 Dose: 17 gm Documented by: Potassium Chloride (K-Dur) 20 meq PO BIDCM [facility] Last Admin: 07/30/19 08:55 Dose: 20 meq Documented by: Senna/Docusate Sodium (Senokot-S, Caterina-Colace) 2 tablet PO BID [facility] Last Admin: 07/30/19 10:02 Dose: 2 tablet Documented by: Sodium Chloride () 10 - 40 ml IV UD PRN PRN Reason: SALINE FLUSH Last Admin: 07/29/19 13:01 Dose: 10 ml Documented by: Sucralfate (Carafate) 1 gm PO 4X/DAY PRN PRN Reason: GI UPSET Zolpidem Tartrate (Ambien (Generic)) 5 mg PO QHS PRN PRN PRN Reason: INSOMNIA Last Admin: 07/29/19 21:15 Dose: 5 mg Documented by: STROKE Vital Signs/Narrative: Vital Signs Pulse Resp 07/30/19 11:12 102 H 20 H 07/30/19 11:03 80 Medical Necessity - Tobacco Use Smoking Status: Former smoker Assessment/Plan All Active Problems (Last Updated 07/12/19 @ 21:39 by Ailyn Ramirez MD) Atrial fibrillation with RVR (Acute) Leukocytosis (Acute) Lactic acidosis (Acute) This is [id number] female admitted with a complaint of shortness of breath and palpitations. History of COPD/emphysema. Patient follows Dr. Junior. Prior PFT on January 2017 showed evidence of severe obstructive lung disease with FEV1 31% of predicted. Patient on chronic 2 L of home oxygen. History of smoking half pack per day for 20 years quit in 2000. She also has pulmonary hypertension paroxysmal A. fib. 1. Acute on chronic hypoxic respiratory failure due to acute on chronic HFpEF and afib wtih RVR and COPD exacerbation due to RSV infection: On BiPAP. Patient is still short of breath. On lung podiatry steroid. On diuretic. Incentive spirometry and chest physiotherapy. 07/30/2019: Shortness of breath better than yesterday. Discontinue Zithromax. Transition to prednisone 40 mg daily. Continue incentive spirometry, chest physiotherapy. Walking pulse oximetry before discharge Patient follows Dr. Junior but can follow our title inspector after discharge. 2. Acute on chronic HFpEF with moderate pulmonary hypertension: 2D echo (07/14/19): EF of 65% and unable to assess diastolic dysfunction due to arrhythmia. No regional motion abnormalities seen. RVSP was 45 mmHg. On Lasix 3. Afib with RVR: On Cardizem and metoprolol oral. Cardizem drain discontinued. Patient seen by power cutting machine operator. On Coumadin. INR supratherapeutic: Coumadin discontinued 4. COPD exacerbation: As mentioned above 5. Depression: on citalopram and buspirone 6. History of DVT and PE: INR 3.5, supratherapeutic. Coumadin discontinued. 7. Hypertension: on metoprolol and cardizem PO. DVT prophylaxis: As mentioned above Code status: DNRCCA Code Visit Inpatient E&M: 58913 Subs Hosp L2
[2019-07-30] MEDS: 0.9% Saline Lock 10 ML Syringe IV (14:47)
[2019-07-30 17:01] LABS: Bedside Glucose 131 mg/dL (70-110)
[2019-07-30] MEDS: MELATONIN 3 MG TABLET 1.5 MG PO (21:06)
[2019-07-30] MEDS: Zolpidem Tartrate 5 MG Tablet PO (21:06)
[2019-07-30] MEDS: busPIRone 5 MG Tablet 7.5 MG PO (21:07)
[2019-07-30 22:16] LABS: Bedside Glucose 205 mg/dL (70-110)
[2019-07-31] VITALS (11 sets, daily range): BP systolic 125–141; BP diastolic 70–90; PULSE 82–110; RESP 18–20; TEMP 36.3–36.6; O2SAT 85–98
[2019-07-31 06:55] LABS: Bedside Glucose 125 mg/dL (70-110)
[2019-07-31] MEDS: Ipratropium/Albuterol Sulfate 3 ML AMPUL.NEB INHALATION ×3 (07:29→15:18)
[2019-07-31] MEDS: predniSONE 20 MG Tablet 40 MG PO (08:31)
[2019-07-31] MEDS: Cyanocobalamin 500 MCG Tablet PO (08:31)
[2019-07-31] MEDS: Multivitamin (Healthy Eyes) Capsule 1 CAP PO ×2 (08:31→16:39)
[2019-07-31] MEDS: Ferrous Sulfate 325 MG Tablet PO ×2 (08:31→16:39)
[2019-07-31 08:43] LABS: International Normalized Ratio 3.3; Prothrombin Time (Protime)PT. 33.7 SECONDS (11.7-14.9)
--- NOTE | 2019-07-31 10:07 | PCM.TXEXTCAR ---
- Diet 07/26/19 09:32 Diet: Cardiac/Low Cholesterol Food consistency:: Regular Liquid Consistency:: Regular/Thin Diet: Fluid Restriction Food consistency:: Regular Liquid Consistency:: Regular/Thin Fluid restriction:: 1500 mL - Routine Orders/Code Status Suppository Type: Dulcolax 10mg Suppository Frequency: Daily PRN Routine Lab Work: CBC - weekly, BMP, INR - daily until INR is therapeutic Code Status: DNRCC-A - Therapies Weight Bearing: Weight bearing as tolerated Extremity Affected:: Bilateral Lower Physical Therapy: Eval and Treat Occupational Therapy: Eval and Treat Speech Therapy: Eval and Treat - Allergies/Procedures Done in Hospital Allergies/Adverse Reactions: Allergies amlodipine besylate [From [facility]] Adverse Reaction (Verified 07/26/19 06:53) ANKLE AND LEG EDEMA RESOLVED OFF MED-PER PCP PAPERWORK codeine Adverse Reaction (Verified 07/26/19 06:53) MENTAL STATUS CHANGE lisinopril Adverse Reaction (Verified 07/26/19 06:53) COUGH - Type of Care/Length of Stay Estimated LOS: Convalescent Care Less Than 30 days Type of Care Needed: Skilled Rehab Potential: Good Prognosis: Good - Additional Orders/Day of Discharge Additional Orders: Need rescue Bipap during naps and HS daily Day of Discharge: 07/31/19 - Dietary and Speech Recommendations Dietitian Recommendations/Changes: Rec liberalize diet to Regular d/t poor po intake and wt loss - can resume therapeutic diet when po intake improves. Will d/c ONS medpass d/t refusal - will instead offer magic cup or ensure pudding w/ meals instead for increased nutrition if consumed. - Follow Up Care Primary Care Physician: Tor Lucia MD [Primary Care Provider] - Please follow up with your Primary Care Physician in: in 2 weeks Please Follow Up With: Mani Mcnair MD When: Eveline Jason in 2 weeks Please Follow Up With: Tor Jaffe MD When: in 2-4 weeks
--- NOTE | 2019-07-31 10:28 | PCM.PN.CARD ---
Subjectve: Patient is awake and alert. She denies ongoing issues of acute chest discomfort. She has chronic shortness of breath/dyspnea and cough. She states she still coughs up clear sputum. Objective: Vital Signs Temp Pulse Resp BP Pulse Ox 97.9 F 99 19 H 141/90 H 96 07/31/19 08:40 07/31/19 08:40 07/31/19 08:40 07/31/19 08:40 07/31/19 08:40 Oxygen Flow Rate (L/min) 2 Oxygen Delivery Method Nasal Cannula Weight: 176 lb 12.972 oz Body Mass Index (BMI) 29.4 Intake and Output for Last 24 Hours 07/29/19 07/30/19 07/31/19 23:59 23:59 23:59 Intake Total 2350 / 2350 1230 / 1230 150 / 150 Output Total 2350 / 2350 400 / 400 Balance 0 / 0 830 / 830 150 / 150 General: Awake, Alert, Oriented x 3, Cooperative, No Acute Distress HEENT: Atraumatic, Normocephalic, PERRL, EOMI, Sclera Non Icteric Oral: Moist Mucosa Neck: Supple, Good ROM, No JVD Lungs: Rhonchi, Expiratory Wheezes-Manuel Cardiovascular: Irregular Rhythm, Normal S1, Normal S2 Abdomen: Bowel Sounds Present, Soft Extremities: No edema Psych/Mental Status: Appropriate 07/31/19 07:20: PT 33.7 H, INR 3.3 Rhythm: Atrial fibrillation Medical Necessity - Tobacco Use Smoking Status: Former smoker Assessment/Plan 1. Atrial fibrillation with rapid ventricular response The patient presents with recurrent atrial fibrillation with rapid ventricular response. The present time she will continue her rate control therapy. She is already anticoagulated. She will continue rate control therapy. She is not on antiarrhythmic therapy as appears she remains in atrial fibrillation. 2. Acute on chronic diastolic mediated CHF The patient presents with recurrent acute on chronic diastolic mediated CHF. She states she has been compliant with diet and medication. She appears to have episodes of exacerbation of her atrial dysrhythmia and her acute on chronic diastolic mediated CHF when she has exacerbation of underlying pulmonary disease process. The present time she will continue medical management which will include her diuretic therapy. This includes return to oral diuretic therapy. 3. Hyperlipidemia She will continue medical management as deemed appropriate. 4. Hypertension Her blood pressure will be followed and her medications might be adjusted during her clinical course. 5. COPD She does have history of significant underlying pulmonary disease. She has been followed by pulmonology in the past. He states his she does want to follow with Dr. Mcnair from pulmonology as an outpatient. 6. Pulmonary hypertension Her most recent transthoracic echocardiogram estimating her right-sided pressures is noted. Her right-sided pressures were somewhat elevated. She will need continued medical therapy and O2 support. 7. Thromboembolic disease (history of DVT/PE) She remains anticoagulated at this time. Comment: The patient's case was discussed and reviewed with Dr. Brown. This note was generated using a voice recognition system and there may be incorrect words, spelling or punctuation that were not noted when reviewing the office note prior to saving.
--- NOTE | 2019-07-31 10:31 | CASEMGMT ---
Patient is read for d/c to [facility]. YAO spoke with patient and explained Palliative Care. She was open to SW making a referral. SW told her they would [facility] to come and tell her more about the program. She said her daughter can transport her back. She wanted her portable O2 tank plugged in, but SW could not find the plug. She told SW to call her daughter as she told her to get the plug and plug it in. YAO called patient's daughter and left her a voice mail letting her know above. YAO also called Stacy at [facility] and let her know about d/c and Palliative Care referral. Plan: d/c back to [facility] under skilled level of care. A referral was also made to Palliative Care. Patient's daughter will transport patient. Regla ANDERSON
--- NOTE | 2019-07-31 10:35 | PCM.PN.PUL ---
Subjective: The patient was seen and examined at the bedside this morning. Events from the last 24 hours have been reviewed. The patient is currently afebrile, hemodynamically stable and maintaining appropriate oxygen saturations on 2 L/min via nasal cannula. The patient has a known history of chronic obstructive pulmonary disease and was followed previously by Dr. Chavarria at [facility]. Prior pulmonary function studies from January 2017 did reveal evidence of severe obstructive lung disease with an FEV1 of 31% of predicted. The patient is currently on scheduled duo nebs and budesonide as an outpatient. She does have a baseline 2 L/min supplemental oxygen requirement at all times. Per documentation from the patient's pulmonary provider's office, she does have a history of recurrent COPD exacerbations. She does have a smoking history of 0.5 packs/day x 20 years, having quit completely in 2000. The patient is chronically anticoagulated due to a history of venous thromboembolic disease. She also has underlying pulmonary hypertension and paroxysmal atrial fibrillation. Objective: The patient's most recent lab work, culture data and imaging studies have all been personally reviewed. Respiratory viral panel was positive for RSV. - Physical Exam Vitals/I&O's: Vital Signs Temp Pulse Resp BP Pulse Ox 97.9 F 99 19 H 141/90 H 96 07/31/19 08:40 07/31/19 08:40 07/31/19 08:40 07/31/19 08:40 07/31/19 08:40 Oxygen Flow Rate (L/min) 2 Oxygen Delivery Method Nasal Cannula Weight: 176 lb 12.972 oz Body Mass Index (BMI) 29.4 Intake and Output for Last 24 Hours 07/29/19 07/30/19 07/31/19 23:59 23:59 23:59 Intake Total 2350 / 2350 1230 / 1230 150 / 150 Output Total 2350 / 2350 400 / 400 Balance 0 / 0 830 / 830 150 / 150 General: Alert, Cooperative, No apparent distress HEENT: Atraumatic, PERRLA, Normocephalic Oral: Moist Mucosa, No Gingival or Mucosal Lesions/ Ulcerations Neck: Supple, No Nodes, Trachea Midline Lungs: Diminished, Rhonchi Cardiovascular: Normal S1, Normal S2, Irregular Rate Abdomen: Bowel Sounds Present, Soft, Non Tender Extremities: No clubbing, No cyanosis, No edema Skin: No breakdown Musculoskeletal: No Tenderness to Palpation of Joints or Extremities Lymphatic: No Cervical, Supraclavicular, or Inguinal Adenopathy Neurological: Cranial nerves II-XII grossly intact, Neuro grossly intact Psych/Mental Status: Alert and oriented to time, place, person, mood and affect Labs (Last 48 Hours) 07/29/19 07/29/19 07/29/19 12:00 15:17 21:18 WBC RBC Hgb Hct MCV MCH MCHC RDW Std Deviation RDW Coeff of Laura Plt Count MPV Immature Gran % (Auto) Neut % (Auto) Lymph % (Auto) [place] % (Auto) Eos % (Auto) Baso % (Auto) Absolute Neuts (auto) Absolute Lymphs (auto) Nucleated RBC % Differential Comment Reactive Lymphocytes PT INR Sodium Potassium Chloride Carbon Dioxide Anion Gap BUN Creatinine Estim Creat Clear Calc Est GFR (MDRD) Af Amer Est GFR (MDRD) Non-Af BUN/Creatinine Ratio Glucose Calcium POC Glucose 171 H 75 210 H 07/30/19 07/30/19 07/30/19 06:11 07:06 07:06 WBC 9.3 RBC 4.45 Hgb 11.9 L Hct 40.2 MCV 90.3 MCH 26.7 L MCHC 29.6 L RDW Std Deviation 58.5 H RDW Coeff of Laura 17.6 H Plt Count 325 MPV 11.6 Immature Gran % (Auto) 0.400 Neut % (Auto) 82.7 H Lymph % (Auto) 14.1 L [place] % (Auto) 2.8 Eos % (Auto) 0.0 Baso % (Auto) 0.0 Absolute Neuts (auto) 7.7 Absolute Lymphs (auto) 1.31 Nucleated RBC % 0 Differential Comment COMMENT Reactive Lymphocytes 1+ PT 35.3 H INR 3.5 H* Sodium Potassium Chloride Carbon Dioxide Anion Gap BUN Creatinine Estim Creat Clear Calc Est GFR (MDRD) Af Amer Est GFR (MDRD) Non-Af BUN/Creatinine Ratio Glucose Calcium POC Glucose 130 H 07/30/19 07/30/19 07/30/19 07:06 10:06 16:51 WBC RBC Hgb Hct MCV MCH MCHC RDW Std Deviation RDW Coeff of Laura Plt Count MPV Immature Gran % (Auto) Neut % (Auto) Lymph % (Auto) [place] % (Auto) Eos % (Auto) Baso % (Auto) Absolute Neuts (auto) Absolute Lymphs (auto) Nucleated RBC % Differential Comment Reactive Lymphocytes PT INR Sodium 143 Potassium 3.9 Chloride 98 Carbon Dioxide 42.0 H Anion Gap 3 L BUN 39 H Creatinine 0.78 Estim Creat Clear Calc 47.27 Est GFR (MDRD) Af Amer 92 Est GFR (MDRD) Non-Af 76 BUN/Creatinine Ratio 49.7 H Glucose 164 H Calcium 9.0 POC Glucose 203 H 131 H 07/30/19 07/31/19 07/31/19 21:00 06:28 07:20 WBC RBC Hgb Hct MCV MCH MCHC RDW Std Deviation RDW Coeff of Laura Plt Count MPV Immature Gran % (Auto) Neut % (Auto) Lymph % (Auto) [place] % (Auto) Eos % (Auto) Baso % (Auto) Absolute Neuts (auto) Absolute Lymphs (auto) Nucleated RBC % Differential Comment Reactive Lymphocytes PT 33.7 H INR 3.3 Sodium Potassium Chloride Carbon Dioxide Anion Gap BUN Creatinine Estim Creat Clear Calc Est GFR (MDRD) Af Amer Est GFR (MDRD) Non-Af BUN/Creatinine Ratio Glucose Calcium POC Glucose 205 H 125 H Clinical Impression(s) from Imaging Studies Chest X-Ray 07/26/19 06:55 IMPRESSION: 1. No significant change. Mild pulmonary venous congestion which appears chronic. Associated mild peribronchial thickening. 2. No focal infiltrate or pneumonia identified. at 0803 Reported and signed by: Matthew Grullon MD Electronically Signed: Matthew Grullon, at 8:01 EST Tel , Service support , Current Medications Acetaminophen (Tylenol) 650 mg PO Q6H PRN PRN PRN Reason: pain and fever Last Admin: 07/29/19 08:08 Dose: 650 mg Documented by: Albuterol/Ipratropium (Duoneb) 3 ml INHALATION 4X/DAY.RT CAIO Last Admin: 07/31/19 07:29 Dose: 3 ml Documented by: Benzonatate (Tessalon Perle) 200 mg PO TID PRN PRN PRN Reason: COUGH Bisacodyl (Dulcolax) 5 mg PO DAILY [facility] Last Admin: 07/30/19 08:56 Dose: 5 mg Documented by: Buspirone HCl (Buspar) 7.5 mg PO QHS [facility] Last Admin: 07/30/19 21:07 Dose: 7.5 mg Documented by: Citalopram Hydrobromide (Celexa) 40 mg PO DAILY [facility] Last Admin: 07/30/19 08:56 Dose: 40 mg Documented by: Cyanocobalamin (Vitamin B12) 500 mcg PO DAILY@0800 [facility] Last Admin: 07/31/19 08:31 Dose: 500 mcg Documented by: Diltiazem HCl (Cardizem Cd) 120 mg PO Q12 [facility] Last Admin: 07/30/19 21:06 Dose: 120 mg Documented by: Ergocalciferol (Vitamin D) 50,000 unit PO TH [facility] Ferrous Sulfate (Ferrous Sulfate) 325 mg PO BIDCM [facility] Last Admin: 07/31/19 08:31 Dose: 325 mg Documented by: Furosemide (Lasix) 40 mg PO BID@1000,1800 [facility] Last Admin: 07/30/19 16:53 Dose: 40 mg Documented by: Glucagon () 1 mg IM .X1 PRN PRN Reason: Hypoglycemia Sodium Chloride () 500 mls @ 15 mls/hr IV PRN PRN PRN Reason: Blood Transfusion Sodium Chloride () 250 mls @ 15 mls/hr IV .[id number] PRN PRN Reason: Saline Flush Sodium Chloride () 250 mls @ 15 mls/hr IV .[id number] PRN PRN Reason: Additional IVPB Infusion Dextrose (Dextrose 10%-Water) 250 mls @ 999 mls/hr IV .Q16M PRN; Protocol PRN Reason: HYPOGLYCEMIA Melatonin (Melatonin) 1.5 mg PO QHS [facility] Last Admin: 07/30/19 21:06 Dose: 1.5 mg Documented by: Metoprolol Tartrate (Lopressor (Beta [place])) 50 mg PO BID [facility] Last Admin: 07/30/19 21:07 Dose: 50 mg Documented by: Multivitamins/Minerals (Healthy Eyes) [facility] Last Admin: 07/31/19 08:31 Dose: 1 capsule Documented by: Ondansetron HCl (Zofran) 4 mg IV Q8H PRN PRN PRN Reason: NAUSEA/VOMITING Last Admin: 07/26/19 12:30 Dose: 4 mg Documented by: Pantoprazole Sodium (Protonix) 20 mg PO DAILY [facility] Last Admin: 07/30/19 08:57 Dose: 20 mg Documented by: Polyethylene Glycol (Miralax) 17 gm PO DAILY [facility] Last Admin: 07/30/19 08:57 Dose: 17 gm Documented by: Potassium Chloride (K-Dur) 20 meq PO BIDCM [facility] Last Admin: 07/31/19 08:31 Dose: 20 meq Documented by: Prednisone () 40 mg PO DAILY@0800 [facility] Last Admin: 07/31/19 08:31 Dose: 40 mg Documented by: Senna/Docusate Sodium (Senokot-S, Caterina-Colace) 2 tablet PO BID [facility] Last Admin: 07/30/19 21:07 Dose: 2 tablet Documented by: Sodium Chloride () 10 - 40 ml IV UD PRN PRN Reason: SALINE FLUSH Last Admin: 07/30/19 14:47 Dose: 10 ml Documented by: Sucralfate (Carafate) 1 gm PO 4X/DAY PRN PRN Reason: GI UPSET Zolpidem Tartrate (Ambien (Generic)) 5 mg PO QHS PRN PRN PRN Reason: INSOMNIA Last Admin: 07/30/19 21:06 Dose: 5 mg Documented by: Medical Necessity - Tobacco Use Smoking Status: Former smoker Assessment/Plan All Active Problems (Last Updated 07/12/19 @ 21:39 by Ailyn Ramirez MD) Atrial fibrillation with RVR (Acute) Leukocytosis (Acute) Lactic acidosis (Acute) RECOMMENDATIONS: 1. Continue scheduled bronchodilators and steroids. Okay from my perspective to transition to prednisone 40 mg daily. 2. Okay to discontinue azithromycin. 3. Wean supplemental oxygen to maintain saturations at or above 90%. 4. Encourage incentive spirometer use and mobilize patient as tolerated. 5. Perform walking oximetry study prior to consideration for discharge home. 6. Outpatient pulmonary follow-up strongly recommended. IMPRESSIONS: 1. Acute on chronic hypoxemic respiratory failure secondary to COPD with exacerbation due to RSV infection Continue current supportive measures with scheduled bronchodilators and steroids. Azithromycin can be discontinued from my perspective. Continue rate/rhythm control strategy along with scheduled diuretic therapy. Wean supplemental oxygen to maintain saturations at or above 90%. Encourage incentive spirometer use and mobilize patient as tolerated. The patient currently has an appointment with Dr. Junior, but could be seen in our office in 2 weeks following discharge with our nurse practitioner, if she chooses, given that she has been seen multiple times in the hospital. 2. Acute on chronic diastolic congestive heart failure secondary to A. fib with RVR Cardiology is following. Continue with diuresis and rate control strategy. 3. Chronic anemia/history of DVT PE/depression/anxiety/hypertension Complicates care, management, recovery and prognosis. Okay to continue with baseline medications. This note was generated with [employer] dictation software. It may contain incorrect words, spelling, and punctuation that were not noted in checking the note before signing. Code Visit Inpatient E&M: 57056 Subs Hosp L2
[2019-07-31] MEDS: Pantoprazole Sodium 20 MG Tablet PO (10:47)
[2019-07-31] MEDS: Polyethylene Glycol 3350 17 GM PACKET PO (10:47)
[2019-07-31] MEDS: Senna/Docusate Sodium 1 Tablet 2 TABLET PO (10:47)
[2019-07-31] MEDS: dilTIAZem CD 120 MG Capsule PO (10:48)
[2019-07-31] MEDS: Furosemide 40 MG Tablet PO (10:48)
[2019-07-31] MEDS: Bisacodyl 5 MG Tablet PO (10:48)
[2019-07-31] MEDS: Citalopram 40 MG TABLET PO (10:48)
[2019-07-31] MEDS: Metoprolol Tartrate 50 MG Tablet PO (10:48)
[2019-07-31] MEDS: Furosemide 40 MG/4 ML Vial IV (10:52)
[2019-07-31] MEDS: 0.9% Saline Lock 10 ML Syringe IV (10:52)
--- NOTE | 2019-07-31 11:17 | CASEMGMT ---
YAO called Palliative Care with referral and also faxed information. Regla VIZCARRA [employer]
--- NOTE | 2019-07-31 13:04 | DS.PCM_ITS ---
Discharge Date and Diagnosis Date of Admission: 07/26/19 Date of Discharge: 07/31/19 - Secondary Discharge Diagnosis Chronic Problems (Last Updated 07/12/19 @ 21:39 by Ailyn Ramirez MD) Diastolic dysfunction (Chronic) Chronic hypoxemic respiratory failure (Chronic) Chronic anticoagulation (Chronic) Former tobacco use (Chronic) Depression (Chronic) Pulmonary hypertension (Chronic) History of recurrent deep vein thrombosis (DVT) (Chronic) History of pulmonary embolism (Chronic) History of cardioversion (Chronic) January of 2018.....HR not controlled with exertion while in AF on Beta madison and cardizem. Converted to NSR with cardioversion Paroxysmal atrial fibrillation (Chronic) DCCV on 01/31/2018; HTN (hypertension) (Chronic) Iron deficiency anemia (Chronic) Chronic diastolic CHF (congestive heart failure) (Chronic) Acute exacerbation of CHF (congestive heart failure) (Chronic) Dyslipidemia (Chronic) COPD (chronic obstructive pulmonary disease) (Chronic) Hospital Course and Treatment Operations: None Summary of Care Provided: [] This is a 73-year-old female admitted with a complaint of shortness of breath and palpitations. History of COPD/emphysema. Patient follows Dr. Junior. Prior PFT on January 2017 showed evidence of severe obstructive lung disease with FEV1 31% of predicted. Patient on chronic 2 L of home oxygen. History of smoking half pack per day for 20 years quit in 2000. She also has pulmonary hypertension paroxysmal A. fib. 1. Acute on chronic hypoxic respiratory failure due to acute on chronic HFpEF and afib wtih RVR and COPD exacerbation due to RSV infection: On BiPAP. Patient is still short of breath. On lung podiatry steroid. On diuretic. Incentive spirometry and chest physiotherapy. 07/30/2019: Shortness of breath better than yesterday. Discontinue Zithromax. Transition to prednisone 40 mg daily. Continue incentive spirometry, chest physiotherapy. Walking pulse oximetry before discharge Patient follows Dr. Junior but can follow our mobile security specialist after discharge. 07/31/2019: Chest physiotherapy/PEP to dislodge mucus. Continue Mucinex. Patient not in respiratory distress. Discussed with mobile security specialist. 2. Acute on chronic HFpEF with moderate pulmonary hypertension: 2D echo (07/14/19): EF of 65% and unable to assess diastolic dysfunction due to arrhythmia. No regional motion abnormalities seen. RVSP was 45 mmHg. On Lasix 07/31/2019: Continue cardiac medications. Patient not on amiodarone since admission 3. Afib with RVR: On Cardizem and metoprolol oral. Cardizem drain discontinued. Patient seen by e learning specialist. On Coumadin. INR supratherapeutic: Coumadin discontinued 07/31/2019: INR is 3.3. Coumadin resumed 3 mg daily. Follow-up INR daily in [facility] and adjust INR accordingly 4. COPD exacerbation: As mentioned above 5. Depression: on citalopram and buspirone 6. History of DVT and PE: Coumadin resumed 7. Hypertension: on metoprolol and cardizem PO. DVT prophylaxis: As mentioned above Code status: DNRCCA Discharge medication reconciliation done. Discharge follow-up instructions completed. Discharge process discussed with the patient and all questions were answered to patient's satisfaction. Follow-up with mobile security specialist Dr. Mcnair and e learning specialist Dr. Jaffe. She has been discharged to SNF Total time spent, exact 35 minutes on discharge meds reconciliation, examinatio n, review of imaging and blood test and discussion with the patient on follow-up instructions. Microbiology Past 72 Hours 07/28/19 09:03 Mucosa - Nasopharyngeal Respiratory Panel (PCR) - Final RSV A Laboratory Results 07/30/19 16:51: POC Glucose 131 H 07/30/19 21:00: POC Glucose 205 H 07/31/19 06:28: POC Glucose 125 H 07/31/19 07:20: PT 33.7 H, INR 3.3 Subjective: Complain of mucus stuck in the throat feels like phlegm fall. Objective: General: Alert, Oriented x3, Cooperative HEENT: Atraumatic, PERRLA, EOMI, Normocephalic Neck: Supple, No JVD, Negative Carotid Bruits Lungs: Air entry diminished right lung base, bilateral rhonchi, not in respiratory distress.short of breath. Cardiovascular: Regular rate, Normal S1, Normal S2, Irregular Rate, systolic murmur over left lower sternal border Abdomen: Bowel Sounds Present, Soft, Non Tender, Non-Distended Extremities: No edema, Capillary Refill Less than 3 Seconds Skin: No rashes, No breakdown Musculoskeletal: No Tenderness to Palpation of Joints or Extremities, Arthritic Changes Neurological: Cranial nerves II-XII grossly intact, Deep Tendon Reflexes 2+/4 and Symmetrical, Neuro grossly intact Psych/Mental Status: Normal Affect, Appropriate - Physical Exam Vitals/I&O's: Vital Signs Temp Pulse Resp BP Pulse Ox 97.9 F 99 19 H 141/90 H 96 07/31/19 08:40 07/31/19 08:40 07/31/19 08:40 07/31/19 08:40 07/31/19 08:40 Oxygen Flow Rate (L/min) 2 Oxygen Delivery Method Nasal Cannula Weight: 176 lb 12.972 oz Body Mass Index (BMI) 29.4 Intake and Output for Last 24 Hours 07/29/19 07/30/19 07/31/19 23:59 23:59 23:59 Intake Total 2350 / 2350 1230 / 1230 150 / 150 Output Total 2350 / 2350 400 / 400 Balance 0 / 0 830 / 830 150 / 150 Microbiology Past 72 Hours 07/28/19 09:03 Mucosa - Nasopharyngeal Respiratory Panel (PCR) - Final RSV A Laboratory Results 07/30/19 10:06: POC Glucose 203 H 07/30/19 16:51: POC Glucose 131 H 07/30/19 21:00: POC Glucose 205 H 07/31/19 06:28: POC Glucose 125 H 07/31/19 07:20: PT 33.7 H, INR 3.3 Current Medications Acetaminophen (Tylenol) 650 mg PO Q6H PRN PRN PRN Reason: pain and fever Last Admin: 07/29/19 08:08 Dose: 650 mg Documented by: Albuterol/Ipratropium (Duoneb) 3 ml INHALATION 4X/DAY.RT [facility] Last Admin: 07/31/19 07:29 Dose: 3 ml Documented by: Benzonatate (Tessalon Perle) 200 mg PO TID PRN PRN PRN Reason: COUGH Bisacodyl (Dulcolax) 5 mg PO DAILY [facility] Last Admin: 07/30/19 08:56 Dose: 5 mg Documented by: Buspirone HCl (Buspar) 7.5 mg PO QHS [facility] Last Admin: 07/30/19 21:07 Dose: 7.5 mg Documented by: Citalopram Hydrobromide (Celexa) 40 mg PO DAILY [facility] Last Admin: 07/30/19 08:56 Dose: 40 mg Documented by: Cyanocobalamin (Vitamin B12) 500 mcg PO DAILY@0800 [facility] Last Admin: 07/31/19 08:31 Dose: 500 mcg Documented by: Diltiazem HCl (Cardizem Cd) 120 mg PO Q12 [facility] Last Admin: 07/30/19 21:06 Dose: 120 mg Documented by: Ergocalciferol (Vitamin D) 50,000 unit PO TH [facility] Ferrous S[facility] ([facility]) [facility] Last Admin: 07/31/19 08:31 Dose: 325 mg Documented by: Furosemide (Lasix) 40 mg PO BID@1000,1800 [facility] Last Admin: 07/30/19 16:53 Dose: 40 mg Documented by: Glucagon () 1 mg IM .X1 PRN PRN Reason: Hypoglycemia Sodium Chloride () 500 mls @ 15 mls/hr IV PRN PRN PRN Reason: Blood Transfusion Sodium Chloride () 250 mls @ 15 mls/hr IV .[id number] PRN PRN Reason: Saline Flush Sodium Chloride () 250 mls @ 15 mls/hr IV .[id number] PRN PRN Reason: Additional IVPB Infusion Dextrose (Dextrose 10%-Water) 250 mls @ 999 mls/hr IV .Q16M PRN; Protocol PRN Reason: HYPOGLYCEMIA Melatonin (Melatonin) 1.5 mg PO QHS [facility] Last Admin: 07/30/19 21:06 Dose: 1.5 mg Documented by: Metoprolol Tartrate (Lopressor (Beta [place])) 50 mg PO BID [facility] Last Admin: 07/30/19 21:07 Dose: 50 mg Documented by: Multivitamins/Minerals (Healthy Eyes) [facility] Last Admin: 07/31/19 08:31 Dose: 1 capsule Documented by: Ondansetron HCl (Zofran) 4 mg IV Q8H PRN PRN PRN Reason: NAUSEA/VOMITING Last Admin: 07/26/19 12:30 Dose: 4 mg Documented by: Pantoprazole Sodium (Protonix) 20 mg PO DAILY [facility] Last Admin: 07/30/19 08:57 Dose: 20 mg Documented by: Polyethylene Glycol (Miralax) 17 gm PO DAILY [facility] Last Admin: 07/30/19 08:57 Dose: 17 gm Documented by: Potassium Chloride (K-Dur) [facility] Last Admin: 07/31/19 08:31 Dose: 20 meq Documented by: Prednisone () 40 mg PO DAILY@0800 [facility] Last Admin: 07/31/19 08:31 Dose: 40 mg Documented by: Senna/Docusate Sodium (Senokot-S, Caterina-Colace) 2 tablet PO BID [facility] Last Admin: 07/30/19 21:07 Dose: 2 tablet Documented by: Sodium Chloride () 10 - 40 ml IV UD PRN PRN Reason: SALINE FLUSH Last Admin: 07/30/19 14:47 Dose: 10 ml Documented by: Sucralfate (Carafate) 1 gm PO 4X/DAY PRN PRN Reason: GI UPSET Zolpidem Tartrate (Ambien (Generic)) 5 mg PO QHS PRN PRN PRN Reason: INSOMNIA Last Admin: 07/30/19 21:06 Dose: 5 mg Documented by: Home Medications: Medications to take at Discharge Ergocalciferol [Vitamin D] 50,000 unit PO TH 07/19/15 Warfarin Sodium 4 mg PO FR 03/08/18 Citalopram Hydrobromide [Citalopram HBr] 40 mg PO DAILY 05/23/18 Ipratropium/Albuterol Sulfate [Duoneb] 3 ml INHALATION 4X/DAY 08/10/18 albuterol sulfate 90 mcg/actuation aerosol inhaler 2 puff INHALATION Q4H PRN PRN g 09/17/18 Budesonide 2 ml IH BID 01/17/19 Omeprazole 20 mg PO DAILY 01/17/19 Senna [Senokot] 1 tab PO BID 01/17/19 Sucralfate [Carafate] 1 gm PO 4X/DAY PRN 01/17/19 Vit A/Vit C/Vit E/Zinc/Copper [Preservision Areds Tablet] 1 ea PO BID 01/17/19 Warfarin [Coumadin] [facility] 01/17/19 Buspirone HCl 7.5 mg PO QHS 05/07/19 Ferrous Sulfate 325 mg PO BIDCM #1 tab 05/09/19 Melatonin 1.5 mg PO QHS tab 05/09/19 Zolpidem Tartrate [Ambien] 5 mg PO QHS PRN PRN #7 tab 05/09/19 Acetaminophen [Tylenol Tablet] 650 mg PO Q6H PRN PRN 07/12/19 Cyanocobalamin (Vitamin B-12) [Vitamin B-12] 500 mcg PO DAILY@0800 07/12/19 Polyethylene Glycol 3350 17 gm PO DAILY 07/12/19 Potassium Chloride 20 meq PO BID 07/12/19 Acetaminophen [Tylenol Tablet] 650 mg PO Q6H PRN PRN tab 07/16/19 Metoprolol Tartrate [Lopressor (beta madison)] 50 mg PO BID tab 07/16/19 Benzonatate [Tessalon Perle] 200 mg PO TID PRN PRN #30 cap 07/31/19 Diltiazem CD [Cardizem CD] 120 mg PO Q12 #60 cap 07/31/19 Furosemide [Lasix] 40 mg PO BID@1000,1800 #60 tab 07/31/19 Prednisone 10 mg PO UD #30 tab 07/31/19 Following Prescrptions Were Given to Patient: Diltiazem CD [Cardizem CD] 120 mg PO Q12 #60 cap Transmission Status: Received by [facility] Furosemide [Lasix] 40 mg PO BID@1000,1800 #60 tab Transmission Status: Received by [facility] Prednisone 10 mg PO UD #30 tab Transmission Status: Received by [facility] Benzonatate [Tessalon Perle] 200 mg PO TID PRN PRN #30 cap PRN Reason: COUGH Transmission Status: Received by [facility] Primary Care Physician: Tor Lucia MD [Primary Care Provider] - Please follow up with your Primary Care Physician in: in 2 weeks Please Follow Up With: Mani Mcnair MD When: Eveline Jason in 2 weeks Please Follow Up With: Tor Jaffe MD When: in 2-4 weeks Medical Necessity - Tobacco Use Smoking Status: Former smoker Meaningful Use Info Meaningful Use Diagnoses (Choose all that apply): None applicable Code Visit Inpatient E&M: 27005 [facility]
[2019-07-31] MEDS: Benzonatate 100 MG Capsule 200 MG PO (15:16)
== END 2019-07-31 17:10 | disposition skilled nursing facility (03) | DRG 189 ==
LOC: ED 08:20 → PCU 08:38
PROVIDERS: Emergency Medicine; Admitting Provider Student in an Organized Health Care Education/Training Program; Emergency Provider Emergency Medicine; Family Provider Family Medicine; PCP Family Medicine; Visit Provider Internal Medicine
DX: J96.21 Acute and chronic respiratory failure with hypoxia (principal); I50.33 Acute on chronic diastolic (congestive) heart failure; J44.1 Chronic obstructive pulmonary disease with (acute) exacerbation; J44.0 Chronic obstructive pulmonary disease with (acute) lower respiratory infection; F32.9 Major depressive disorder, single episode, unspecified; Z66 Do not resuscitate; I11.0 Hypertensive heart disease with heart failure; Z87.891 Personal history of nicotine dependence; J20.5 Acute bronchitis due to respiratory syncytial virus; Z79.01 Long term (current) use of anticoagulants; I27.20 Pulmonary hypertension, unspecified; Z86.718 Personal history of other venous thrombosis and embolism; Z86.711 Personal history of pulmonary embolism; D50.9 Iron deficiency anemia, unspecified; E78.5 Hyperlipidemia, unspecified; I48.0 Paroxysmal atrial fibrillation; Z79.899 Other long term (current) drug therapy; Z99.81 Dependence on supplemental oxygen
CPT/HCPCS: 36415; 71045; 80048; 80053; 82962; 83605; 83880; 84484; 85025; 85610; 87633; 93005; 94002; 94003; 94640; 97110; 97116; 97162; 97166; 97530; 97535; 97802; 99285; A4216; J1940; J2405

== ENCOUNTER 2019-08-05 18:52 | Inpatient (IN) | payer MEDICARE, MEDICAID, SELFPAY ==
[2019-07-26 09:03] VITALS: BMI 29.4
[2019-08-05] VITALS (7 sets, daily range): BP systolic 77–131; BP diastolic 63–81; PULSE 65–134; RESP 16–27; TEMP 35.8–37.2; O2SAT 94–96; BMI 27.3
--- NOTE | 2019-08-05 19:29 | EKG12_ITS ---
Test Reason : AFIB Blood Pressure : / mmHG Vent. Rate : 128 BPM Atrial Rate : 122 BPM P-R Int : 000 ms QRS Dur : 076 ms QT Int : 336 ms P-R-T Axes : 000 068 050 degrees QTc Int : 490 ms Atrial fibrillation with rapid ventricular response Nonspecific ST abnormality Abnormal ECG Confirmed by MADISON BHAT, URSULA ([id number]), pictures editor DIANA AHUMADA ([id number]) on 08/07/2019 10:02:30 AM Referred By: Paulo Mota Confirmed By:URSULA WALLACE MD
--- NOTE | 2019-08-05 19:31 | ED.VIS.GEN ---
History of Present Illness Chief Complaint: Cough Informant: Patient Onset: Days Current Severity: Mild Maximum Severity: Moderate Narrative: She presents with complaints of cough, shortness of breath, fever and chills. Patient was admitted to the hospital last week for COPD exacerbation and CHF as well as A. fib RVR. She was found to have RSV. Patient states she felt fair when she left the hospital last but symptoms worsened again over the weekend. She has had continued chills. - Past Medical History (1) Atrial fibrillation with RVR Status: Chronic (2) Acute exacerbation of CHF (congestive heart failure) Status: Chronic (3) COPD (chronic obstructive pulmonary disease) Status: Chronic (4) Chronic anticoagulation Status: Chronic (5) Chronic diastolic CHF (congestive heart failure) Status: Chronic (6) Chronic hypoxemic respiratory failure Status: Chronic (7) Depression Status: Chronic (8) Dyslipidemia Status: Chronic (9) HTN (hypertension) Status: Chronic Past Medical History - Allergies and Home Meds Allergies/Adverse Reactions: [facility] Adverse Reaction (Verified 08/05/19 20:21) ANKLE AND LEG EDEMA RESOLVED OFF MED-PER PCP PAPERWORK codeine Adverse Reaction (Verified 08/05/19 20:21) MENTAL STATUS CHANGE lisinopril Adverse Reaction (Verified 08/05/19 20:21) COUGH Primary Care Physician: Tor Lucia MD [Primary Care Provider] - Prior records reviewed: Yes Surgical History: cholecystectomy, hysterectomy, - - tailbone surgery. Lives: Assisted Smoking Status: Former smoker - Family History Maternal Family History: Family History (Last Reviewed 05/07/19 @ 13:35 by Yoselin Junior DO) Sister Heart disease Family History: Reports: - - Patient notes a maternal history of dementia and stroke. Paternal Family History: Family History (Last Reviewed 05/07/19 @ 13:35 by Yoselin Junior DO) Sister Heart disease Family History: Reports: - - Patient denies any marketed paternal family history including heart disease, diabetes, cancer. Sibling Family History: Family History (Last Reviewed 05/07/19 @ 13:35 by Yoselin Junior DO) Sister Heart disease Family History: Reports: - - Patient notes a sibling specifically her sister with Parkinson's disease and heart disease as well as a brother with Parkinson's disease, asthma and history of blood clots. Review of Systems General: Reports: Chills, Sweats Eyes: Denies: Visual changes - bilaterally ENT: Denies: Bilateral ear pain Cardiovascular: Reports: Chest pain - Yesterday Respiratory: Reports: Dyspnea, Cough, Sputum Gastrointestinal: Reports: Nausea. Denies: Abdominal pain, Vomiting Genitourinary: Denies: Dysuria Skin: Denies: Rash Neurological: Denies: Headache Allergy: Denies: Uticaria Physical Exam Vital Signs/Narrative: Vital Signs Temp Pulse Resp BP Pulse Ox 08/05/19 19:13 98.4 F 123 H 27 H 104/80 95 08/05/19 18:52 96.5 F L 65 18 131/72 H 96 Inital Vital Signs reviewed: Yes General: Well nourished, Well developed Head: Normocephalic ENT: Moist mucous membranes Neck: Supple Cardiovascular: Irregular, Tachycardia Respiratory: Rhonchi, Wheezing - Occasional wheezing Abdomen: Soft Extremities: Edema - 2+ edema Skin: Normal color Neurological: Alert, Oriented x3 Psychological: Normal affect Diagnostic/Tx/Re-eval Impressions Chest X-Ray 08/05/19 19:32 IMPRESSION: Left lower lung zone infiltrate. Electronically Signed: Ken Sandra, at 20:01 EST Tel , Service support , 08/05/19 19:32 Chest 1 View (Portable) [RAD] Stat Laboratory Results 08/05/19 08/05/19 08/05/19 19:23 19:23 19:23 WBC 29.9 H RBC 5.00 Hgb 13.7 Hct 44.7 MCV 89.4 MCH 27.4 MCHC 30.6 L RDW Std Deviation 56.2 H RDW Coeff of Laura 17.3 H Plt Count 288 MPV 12.4 H Immature Gran % (Auto) 1.100 H Neut % (Auto) 80.6 H Lymph % (Auto) 9.0 L Tyrrell % (Auto) 8.7 Eos % (Auto) 0.4 Baso % (Auto) 0.2 Absolute Neuts (auto) 24.1 H Absolute Lymphs (auto) 2.70 Nucleated RBC % 0 Differential Comment SEE COMMENTS Diff Path Review May foll Platelet Estimate ADEQUATE RBC Morphology N CHROM Anisocytosis RARE PT 33.4 H INR 3.3 Sodium 138 Potassium 3.9 Chloride 97 L Carbon Dioxide 38.0 H Anion Gap 3 L BUN 22 H Creatinine 0.91 Estim Creat Clear Calc 51.94 Est GFR (MDRD) Af Amer 77 Est GFR (MDRD) Non-Af 64 BUN/Creatinine Ratio 24.1 H Glucose 135 H Lactic Acid Calcium 9.0 Troponin I < 0.015 B-Natriuretic Peptide 08/05/19 08/05/19 19:23 19:23 WBC RBC Hgb Hct MCV MCH MCHC RDW Std Deviation RDW Coeff of Laura Plt Count MPV Immature Gran % (Auto) Neut % (Auto) Lymph % (Auto) Tyrrell % (Auto) Eos % (Auto) Baso % (Auto) Absolute Neuts (auto) Absolute Lymphs (auto) Nucleated RBC % Differential Comment Diff Path Review Platelet Estimate RBC Morphology Anisocytosis PT INR Sodium Potassium Chloride Carbon Dioxide Anion Gap BUN Creatinine Estim Creat Clear Calc Est GFR (MDRD) Af Amer Est GFR (MDRD) Non-Af BUN/Creatinine Ratio Glucose Lactic Acid 1.4 Calcium Troponin I B-Natriuretic Peptide 101.9 H - EKG Initial EKG Interpretation: Atrial Fibrillation - A. fib at 128. No acute ischemic change noted. - Medical Decision Making Patient was given 1 DuoNeb treatment here along with 10 mg of Cardizem. On repeat evaluation patient's heart rate was still in the 130s. Blood pressure had dropped into the 90s. She is given IV fluid bolus. Patient is ordered Zosyn and vancomycin for healthcare associated pneumonia. Patient's blood pressure did drop into the upper 70s systolic for a brief time period. Her MAP never dropped below 65. Patient has currently received 800 cc out of the 200 cc fluid bolus ordered. Current blood pressure is 99/84. On patient's last visit I did note that she was DNR CCA. This was confirmed with her again. She is reluctant to have a central line placed for pressors, and states she would only consider this if absolutely necessary. ED Disposition - Plan for ED Patient: Disposition: Home or Assisted Living Diagnosis: Pneumonia, Sepsis Referrals: Tor Lucia MD [Primary Care Provider] -
--- NOTE | 2019-08-05 19:32 | RAD_ITS ---
STUDY: X-RAY CHEST REASON FOR EXAM: Female, 73 years old. Cough TECHNIQUE: Frontal view of the chest COMPARISON: X-Ray Chest July 26, 2019 FINDINGS: There is a left lower lung zone infiltrate. The right lung is clear. There are no pleural effusions. There is no pneumothorax. The heart is normal in size. The visualized osseous structures are within normal limits. RAD/Chest 1 View (Portable) IMPRESSION: Left lower lung zone infiltrate. Electronically Signed: Ken Flores, at 20:01 EST Tel , Service support ,
[2019-08-05] MEDS: Ondansetron 4 MG/2 ML Vial IV (19:35)
[2019-08-05] MEDS: dilTIAZem 25 MG/5 ML Vial 10 MG IV BOLUS (19:36)
[2019-08-05] MEDS: Ipratropium/Albuterol Sulfate 3 ML AMPUL.NEB INHALATION (19:36)
[2019-08-05 19:47] LABS: Absolute Neutrophil Count 24.1 X10^3/uL (2.0-7.7); Basophil# 0.06 X10^3/uL; Basophil% 0.2 % (0-1); Eosinophil# 0.12 X10^3/uL; Eosinophils% 0.4 % (0-5); Hematocrit 44.7 % (37-47); Hemoglobin 13.7 g/dL (12.0-15.0); Mean Corp Hgb Conc 30.6 g/dL (32-36); Mean Corpuscular Hgb 27.4 pg (27.0-32.0); Mean Corpuscular Volume 89.4 fL (81-99); Mean Platelet Vol. 12.4 fl (6.2-12.0); Monocyte# 2.61 X10^3/uL; Monocyte% 8.7 % (0-10); NRBC Flagged by Analyzer 0 % (0-5); Neutrophil # 24.07 X10^3/uL (2.7-7.7); Neutrophil % 80.6 % (47-70); POSITIVE DIFFERENTIAL YES; Platelet Count 288 K/mm3 (150-450); RBC Distribution Width CV 17.3 % (11.6-14.6); RBC Distribution Width SD 56.2 fl (35.1-43.9); White Blood Count 29.9 K/mm3 (4.4-11.0)
[2019-08-05 19:51] LABS: International Normalized Ratio 3.3; Prothrombin Time (Protime)PT. 33.4 SECONDS (11.7-14.9)
[2019-08-05 19:55] LABS: Differential Indicated SCAN CRITERIA MET
[2019-08-05 20:00] LABS: Anion Gap 3 (5-15); BUN 22 mg/dL (7-18); BUN/Creat Ratio 24.1 RATIO (10-20); Chloride 97 mmol/L (98-107); Creatinine, Serum 0.91 mg/dL (0.55-1.02); EST Glomerular Filtration Rate 64 mL/min (>60); Est Glom Filt Rate - Afr Amer 77 mL/min (>60); Estimated Creatinine Clearance 51.94 ml/min; Glucose 135 mg/dL (74-106); Potassium 3.9 mmol/L (3.5-5.1); Sodium Level 138 mmol/L (136-145)
[2019-08-05 20:23] LABS: Differential Comment SEE COMMENTS
[2019-08-05 20:24] LABS: Anisocytosis RARE; Platelet Estimate ADEQUATE (ADEQ); Red Cell Morphology N CHROM NORMAL (NORM C&C)
[2019-08-05 20:48] LABS: BNP,B-Type NATRIURETIC PEPTIDE 101.9 pg/mL (0-100)
[2019-08-05] MEDS: 0.9% Normal Saline 1,000 ML 999 ML IV ×2 (22:07→23:21)
[2019-08-05] MEDS: proMETHazine 25 MG/ML Syringe 12.5 MG IV (22:21)
[2019-08-05 22:23] LABS: Lactic Acid 1.4 mmol/L (0.4-1.9)
--- NOTE | 2019-08-05 23:52 | PCM.HP.STD ---
Problem List (1) Severe sepsis Status: Acute (2) Hospital acquired PNA Status: Acute (3) Atrial fibrillation with RVR Status: Chronic History of Present Illness Date of Admission: 08/05/19 Chief Complaint: COUGH AND SOB The patient is a 73 year old F with a significant history of hypertension; COPD; and diastolic heart failure who presented from the shelter with shortness of breath and cough. Her cough is productive for yellow sputum. Associated for symptoms is anorexia; nausea; vomiting chills and rigors. Per family patient has lost about 10 pounds in less than 1 week. The emergency department patient was found to be in A. fib with RVR. She was given Cardizem bolus. The ED patient was tachypneic. She had severely elevated leukocytosis Also the point a systolic blood pressure was 77. Patient was given IV bolus. Of note patient was admitted at [facility] on 07/26/2019 and discharged on 07/31/2019. Admission she was diagnosed with COPD as secondary to RSV. Also she had A. fib with RVR; acute on chronic heart failure with preserved ejection fraction. Past Medical History Past Medical History (Chronic Problems): Chronic Problems (Last Reviewed 08/06/19 @ 00:49 by Paulo Mota MD) Diastolic dysfunction (Chronic) Chronic hypoxemic respiratory failure (Chronic) Chronic anticoagulation (Chronic) Former tobacco use (Chronic) Depression (Chronic) Pulmonary hypertension (Chronic) History of recurrent deep vein thrombosis (DVT) (Chronic) History of pulmonary embolism (Chronic) History of cardioversion (Chronic) January of 2018.....HR not controlled with exertion while in AF on Beta donna and cardizem. Converted to NSR with cardioversion Paroxysmal atrial fibrillation (Chronic) DCCV on 01/31/2018; HTN (hypertension) (Chronic) Iron deficiency anemia (Chronic) Chronic diastolic CHF (congestive heart failure) (Chronic) Acute exacerbation of CHF (congestive heart failure) (Chronic) Atrial fibrillation with RVR (Chronic) Dyslipidemia (Chronic) COPD (chronic obstructive pulmonary disease) (Chronic) Medical History: Medical History (Last Reviewed 08/06/19 @ 00:49 by Paulo Mota MD) Dyslipidemia (Chronic) E78.5 COPD (chronic obstructive pulmonary disease) (Chronic) J44.9 Atrial fibrillation I48.91 Heart failure with preserved ejection fraction I50.30 Group 2. EF 65% 5/22/18 Essential hypertension I10 History of DVT (deep vein thrombosis) Z86.718 History of pulmonary embolus (PE) Z86.711 Pulmonary HTN I27.20 Venous insufficiency I87.2 Allergies amlodipine besylate [From [facility]] Adverse Reaction (Verified 08/05/19 20:21) ANKLE AND LEG EDEMA RESOLVED OFF MED-PER PCP PAPERWORK codeine Adverse Reaction (Verified 08/05/19 20:21) MENTAL STATUS CHANGE lisinopril Adverse Reaction (Verified 08/05/19 20:21) COUGH Home Medications: Ambulatory Orders Medication Instructions Recorded Ergocalciferol [Vitamin D] 50,000 unit PO TH 07/19/15 Warfarin Sodium 4 mg PO TUTH 03/08/18 Citalopram Hydrobromide 40 mg PO DAILY 05/23/18 [Citalopram HBr] Ipratropium/Albuterol Sulfate 3 ml INHALATION 4X/DAY 08/10/18 [Duoneb] albuterol sulfate 90 mcg/actuation 2 puff INHALATION Q4H PRN PRN g 09/17/18 aerosol inhaler Budesonide 2 ml IH BID 01/17/19 Omeprazole 20 mg PO DAILY 01/17/19 Senna [Senokot] 1 tab PO BID 01/17/19 Sucralfate [Carafate] 1 gm PO Q6H PRN PRN 01/17/19 Vit A/Vit C/Vit E/Zinc/Copper 1 ea PO BID 01/17/19 [Preservision Areds Tablet] Warfarin [Coumadin] 3 mg PO SUMOWEFRSA 01/17/19 Buspirone HCl 7.5 mg PO QHS 05/07/19 Ferrous Sulfate 325 mg PO BIDCM #1 tab 05/09/19 Zolpidem Tartrate [Ambien] 5 mg PO QHS PRN PRN #7 tab 05/09/19 Acetaminophen [Tylenol Tablet] 650 mg PO Q6H PRN PRN 07/12/19 Cyanocobalamin (Vitamin B-12) 500 mcg PO DAILY@0800 07/12/19 [Vitamin B-12] Polyethylene Glycol 3350 17 gm PO DAILY 07/12/19 Potassium Chloride 20 meq PO BID 07/12/19 Metoprolol Tartrate [Lopressor 50 mg PO BID tab 07/16/19 (beta donna)] Benzonatate [Tessalon Perle] 200 mg PO TID PRN PRN #30 cap 07/31/19 Diltiazem CD [Cardizem CD] 120 mg PO Q12 #60 cap 07/31/19 Furosemide [Lasix] 40 mg PO BID@1000,1800 #60 tab 07/31/19 Prednisone 30 mg PO DAILY 08/06/19 Surgical History: Surgical History (Last Reviewed 08/06/19 @ 00:49 by Paulo Mota MD) History of cholecystectomy Z90.49 History of total hysterectomy Z90.710 tailbone surgery Surgical History: cholecystectomy, hysterectomy, - - tailbone surgery. Psychiatric History: Anxiety, Depression OR FIRST ASSIST REGISTERED NURSE History: No pertinent OR FIRST ASSIST REGISTERED NURSE history Lives: Skilled Nursing Smoking Status: Former smoker Tobacco Use: Cigarettes - *Family History Maternal Family History: Family History (Last Reviewed 08/06/19 @ 00:50 by Paulo Mota MD) Sister Heart disease History Items: - - Patient notes a maternal history of dementia and stroke. Paternal Family History: Family History (Last Reviewed 08/06/19 @ 00:50 by Paulo Mota MD) Sister Heart disease History Items: - Sibling Family History: Family History (Last Reviewed 08/06/19 @ 00:50 by Paulo Mota MD) Sister Heart disease History Items: - - Patient notes a sibling specifically her sister with Parkinson's disease and heart disease as well as a brother with Parkinson's disease, asthma and history of blood clots. Review of Systems Constitutional: Reports: Anorexia, Chills, Malaise, Weight Change - Reportedly she has lost about 10 pounds in less than 1 week. HEENT: Denies: Head Aches, Sinus Congestion, Sinus Drainage Cardiovascular: Denies: Chest Pain, Palpitations Respiratory: Reports: Cough, Shortness of Breath, Sputum production Gastrointestinal: Reports: Nausea, Vomiting. Denies: Abdominal Pain Genitourinary: Denies: Dysuria Musculoskeletal: Denies: Joint Pain, Joint Tenderness Skin: Denies: Rash, Wounds Neurological: Denies: Numbness, Tingling, Focal weakness Psychiatric: Denies: Anxiety, Depression, Homicidal Ideations, Suicidal Ideations Hematologic/ Lymphatic: Denies: Easy Bruising, Easy Bleeding VTE Information - Inpt Only VTE Present on Admission: No VTE Mechan Device Prophylaxis: None VTE Pharm Prophylaxis ordered?: Yes Patient Problems: Active and Suspected Problems (Last Reviewed 08/06/19 @ 00:49 by Paulo Mota MD) Pneumonia (Acute) Sepsis (Acute) Severe sepsis (Acute) Hospital acquired PNA (Acute) - Physical Exam Vitals/I&O's: Vital Signs Temp Pulse Resp BP Pulse Ox 98.9 F 119 H 27 H 77/63 L 94 08/05/19 22:23 08/05/19 23:15 08/05/19 23:15 08/05/19 23:15 08/05/19 23:15 Oxygen Flow Rate (L/min) 2 Oxygen Delivery Method Nasal Cannula Weight: 79.4 kg Body Mass Index (BMI) 27.3 Intake and Output for Last 24 Hours 08/03/19 08/04/19 08/05/19 23:59 23:59 23:59 Intake Total 50 / 50 Balance 50 / 50 General: Alert, Oriented x3, Cooperative HEENT: Atraumatic, PERRLA, EOMI, Normocephalic Neck: Supple, No JVD, Negative Carotid Bruits Lungs: Normal air movement, Rhonchi - Left lung base Cardiovascular: Normal S1, Normal S2, No murmurs, Irregular Rate, Tachycardic Abdomen: Bowel Sounds Present, Soft, Non Tender Extremities: No edema, Capillary Refill Less than 3 Seconds Skin: No rashes, No breakdown Musculoskeletal: No Tenderness to Palpation of Joints or Extremities Neurological: Cranial nerves II-XII grossly intact Psych/Mental Status: Normal Affect, Appropriate Laboratory Results 08/05/19 19:23: WBC 29.9 H, RBC 5.00, Hgb 13.7, Hct 44.7, MCV 89.4, MCH 27.4, MCHC 30.6 L, RDW Std Deviation 56.2 H, RDW Coeff of Laura 17.3 H, Plt Count 288, MPV 12.4 H, Immature Gran % (Auto) 1.100 H, Neut % (Auto) 80.6 H, Lymph % (Auto) 9.0 L, [place] % (Auto) 8.7, Eos % (Auto) 0.4, Baso % (Auto) 0.2, Absolute Neuts (auto) 24.1 H, Absolute Lymphs (auto) 2.70, Nucleated RBC % 0, Differential Comment SEE COMMENTS, Diff Path Review May foll, Platelet Estimate ADEQUATE, RBC Morphology N CHROM, Anisocytosis RARE 08/05/19 19:23: PT 33.4 H, INR 3.3 08/05/19 19:23: Sodium 138, Potassium 3.9, Chloride 97 L, Carbon Dioxide 38.0 H, Anion Gap 3 L, BUN 22 H, Creatinine 0.91, Estim Creat Clear Calc 51.94, Est GFR (MDRD) Af Amer 77, Est GFR (MDRD) Non-Af 64, BUN/Creatinine Ratio 24.1 H, Glucose 135 H, Calcium 9.0, Troponin I < 0.015 08/05/19 19:23: B-Natriuretic Peptide 101.9 H 08/05/19 19:23: Lactic Acid 1.4 Current Medications Sodium Chloride () 1,000 mls @ 999 mls/hr IV .Q1H1M ONE Stop: 08/05/19 23:52 Last Admin: 08/05/19 23:21 Dose: 999 mls/hr Documented by: Assessment/Plan All Active Problems (Last Reviewed 08/06/19 @ 00:49 by Paulo Mota MD) Leukocytosis (Acute) Lactic acidosis (Acute) Pneumonia (Acute) Sepsis (Acute) Severe sepsis (Acute) Hospital acquired PNA (Acute) The patient is a 73 year old F with a significant history of hypertension; COPD; and diastolic heart failure who presented from the shelter with shortness of breath; nausea; vomiting productive cough cough; chills; rigors; found to have tachypnea; hypertension; leukocytosis with bandemia and radiographic evidence of left lower lung franklin infiltrate consistent with severe sepsis secondary to healthcare associated pneumonia. Severe sepsis secondary to healthcare associated pneumonia Lactic acid:1.4 RR ~highest of 27 Heart rate: A. fib with RVR with ventricular rates going as high as 134. Diagnosis severe sepsis due to blood pressure of 77/63. Responded to fluids. Blood culture ?2 is pending Chest x-ray: Independently reviewed confirms left lung fills with infiltrate. Respiratory Gram stain and culture pending Antibiotics: Started on vancomycin and Zosyn. Will continue same antibiotics. Will get MRSA screen. IV hydration: Saline bolus at the emergency department. DuoNeb scheduled. Albuterol as needed Legionella antigen screen and Strep antigen ordered She was on steroid taper from her last admission. Restart patient on prednisone 40 mg daily. Mucinex ordered. Tessalon Perles continued. A. fib with RVR Because of hypotension at the emergency department we will hold off home metoprolol and Cardizem. Will start on amiodarone drip without bolus. Placed on telemetry at PCU. COPD Home inhalers continued. Scheduled DuoNeb. Steroids as above. History of PE and DVT Coumadin continued INR therapeutic. Daily INR ordered. Heart failure preserved ejection fraction In view of patient receiving IV fluid bolus in the setting of severe sepsis hold home Lasix. Consider resuming home Lasix when necessary. DVT prophylaxis On Coumadin as above. Code Visit Inpatient E&M: 52565 Init Hosp L3
[2019-08-06] VITALS (55 sets, daily range): BP systolic 79–150; BP diastolic 52–99; PULSE 86–153; RESP 12–43; TEMP 36.3–39; O2SAT 89–100; BMI 27.5
--- NOTE | 2019-08-06 01:15 | PCM.RX.CS ---
Consult Pharmacy has been consulted to manage selected antiobiotic: Vancomycin Type of Consult: New start Suspected Infection: Sepsis Labs: Sodium 138 mmol/L (136-145) 08/05/19 19:23 Potassium 3.9 mmol/L (3.5-5.1) 08/05/19 19:23 Chloride 97 mmol/L (98-107) L 08/05/19 19:23 Carbon Dioxide 38.0 mmol/L (21.0-32.0) H 08/05/19 19:23 Anion Gap 3 (5-15) L 08/05/19 19:23 BUN 22 mg/dL (7-18) H 08/05/19 19:23 Creatinine 0.91 mg/dL (0.55-1.02) 08/05/19 19:23 Est GFR (MDRD) Af Amer 77 mL/min (>60) 08/05/19 19:23 Est GFR (MDRD) Non-Af 64 mL/min (>60) 08/05/19 19:23 BUN/Creatinine Ratio 24.1 RATIO (10-20) H 08/05/19 19:23 Glucose 135 mg/dL (74-106) H 08/05/19 19:23 Weight used for dosin.7 kg Estimated Creatinine Clearance: 58 Goal Trough: 15-20 mcg/mL Pharmacy Plan for Drug Dosing: Pharmacy Service will continue to monitor and adjust dosing as required. Medications Vancomycin IV Pharmacy to Dose (1,250 ea/ Sodium Chloride) 500 mls @ 250 mls/hr IV PRN PRN; Protocol Vancomycin HCl 750 mg/ Sodium (Chloride) 265 mls @ 250 mls/hr IV Q12H CAIO Follow-Up Labs: Trough Vancomycin Labs to be done on [date and time ordered]: 08/07 @ 1130
[2019-08-06] MEDS: 0.9% Saline Lock 10 ML Syringe IV ×8 (01:45→14:55)
--- NOTE | 2019-08-06 01:46 | NURSING ---
This RN gave verbal report to Inocencio Durbin RN. She is resuming care of patient.
[2019-08-06] MEDS: guaiFENesin 1,200 MG Tablet 1200 MG PO ×3 (01:47→21:02)
[2019-08-06] MEDS: Acetaminophen 325 MG Tablet 650 MG PO (02:27)
[2019-08-06] MEDS: Ondansetron 4 MG/2 ML Vial IV ×2 (02:27→14:20)
--- NOTE | 2019-08-06 03:42 | RAD_ITS ---
HISTORY: WORSENING SOB EXAMINATION/TECHNIQUE: XR Chest 1 View: Portable COMPARISON: 08/05/2019 FINDINGS: Cardiac telemetry leads in place. Shallow inspiration. Interval worsening with enlarging left lower lobe infiltrate. The right lung remains clear. Normal heart size. No vascular congestion or pneumothorax. RAD/Chest 1 View (Portable) IMPRESSION: Left lower lobe enlarging infiltrate compatible with worsening pneumonia. at 0548 Reported and signed by: Matthew Grullon MD Electronically Signed: Matthew Grullon, at 5:47 EST Tel , Service support ,
[2019-08-06] MEDS: MethylPREDNISolone 125 MG/2 ML Vial IV (04:13)
[2019-08-06 05:45] LABS: M R Staph aureus DNA By PCR Negative (Negative); Probe Check PASS; Specimen Processing Control PASS
[2019-08-06 06:17] LABS: Absolute Lymphocyte Count 1.32 X10^3/uL (0.83-4.51); Basophil# 0.08 X10^3/uL; Basophil% 0.2 % (0-1); Eosinophil# 0.01 X10^3/uL; Hematocrit 41.8 % (37-47); Hemoglobin 12.7 g/dL (12.0-15.0); Lymphocyte # 1.32 X10^3/ul (4.0); Lymphocyte % 3.4 % (19-41); Mean Corp Hgb Conc 30.4 g/dL (32-36); Mean Corpuscular Hgb 27.1 pg (27.0-32.0); Mean Corpuscular Volume 89.3 fL (81-99); Mean Platelet Vol. 12.3 fl (6.2-12.0); Monocyte% 4.4 % (0-10); NRBC Flagged by Analyzer 0 % (0-5); Neutrophil # 34.95 X10^3/uL (2.7-7.7); Neutrophil % 89.8 % (47-70); POSITIVE COUNT YES; POSITIVE DIFFERENTIAL YES; Platelet Count 219 K/mm3 (150-450); RBC Distribution Width CV 17.5 % (11.6-14.6); RBC Distribution Width SD 56.7 fl (35.1-43.9); Red Blood Count 4.68 M/mm3 (4.2-5.4)
[2019-08-06 06:28] LABS: Differential Indicated SCAN CRITERIA MET; International Normalized Ratio 3.1; Prothrombin Time (Protime)PT. 32.3 SECONDS (11.7-14.9)
[2019-08-06 06:29] LABS: White Blood Count 38.9 K/mm3 (4.4-11.0)
[2019-08-06] MEDS: dilTIAZem 25 MG/5 ML Vial 10 MG IV BOLUS (06:31)
[2019-08-06] MEDS: Oseltamivir Phosphate 30 MG Capsule PO ×3 (06:31→21:03)
[2019-08-06] MEDS: Sucralfate 1 GM Tablet PO ×4 (06:32→21:02)
[2019-08-06 06:50] LABS: Anion Gap 3 (5-15); BUN 21 mg/dL (7-18); BUN/Creat Ratio 26.4 RATIO (10-20); Calcium,Total 8.5 mg/dL (8.5-10.1); Chloride 102 mmol/L (98-107); EST Glomerular Filtration Rate 75 mL/min (>60); Est Glom Filt Rate - Afr Amer 90 mL/min (>60); Estimated Creatinine Clearance 59.09 ml/min; Glucose 145 mg/dL (74-106); Potassium 3.8 mmol/L (3.5-5.1); Sodium Level 141 mmol/L (136-145)
[2019-08-06 06:56] LABS: Differential Comment SCANNED
[2019-08-06] MEDS: Ipratropium/Albuterol Sulfate 3 ML AMPUL.NEB INHALATION ×4 (07:30→19:08)
[2019-08-06] MEDS: Cyanocobalamin 500 MCG Tablet PO (08:55)
[2019-08-06] MEDS: Citalopram 40 MG TABLET PO (08:55)
[2019-08-06] MEDS: Ferrous Sulfate 325 MG Tablet PO (08:55)
[2019-08-06] MEDS: Senna Tablet 1 TABLET PO ×2 (08:56→21:03)
[2019-08-06] MEDS: Multivitamin (Healthy Eyes) Capsule 1 CAP PO ×2 (08:56→21:02)
[2019-08-06] MEDS: Pantoprazole Sodium 20 MG Tablet PO (08:56)
--- NOTE | 2019-08-06 08:58 | EKG12_ITS ---
Test Reason : RHYTHM Blood Pressure : / mmHG Vent. Rate : 121 BPM Atrial Rate : 113 BPM P-R Int : 000 ms QRS Dur : 072 ms QT Int : 342 ms P-R-T Axes : 000 071 038 degrees QTc Int : 485 ms Atrial fibrillation Nonspecific ST abnormality Abnormal ECG When compared with ECG of 05-AUG-2019 19:14, MANUAL COMPARISON REQUIRED, DATA IS UNCONFIRMED Confirmed by SARAHY BHAT, KYLEIGH ([id number]), communications editor DIANA AHUMADA ([id number]) on 08/09/2019 2:42:31 PM Referred By: Paulo Mota Confirmed By:JERMAINE WEATHERS MD
--- NOTE | 2019-08-06 08:58 | PN_ITS ---
Patient Problems: Active and Suspected Problems (Last Reviewed 08/06/19 @ 00:49 by Paulo Mota MD) Influenzal bronchopneumonia (Acute) Pneumonia (Acute) Sepsis (Acute) Severe sepsis (Acute) Hospital acquired PNA (Acute) Reason for Visit: Follow-up on pneumonia, Afib with RVR Subjective: Patient was seen and examined. She feels fatigued. Denies fever or chills. Telemetry shows A fib with RVR. She has been on Amiodarone drip. BP is running low. Objective: Physical exam: General: Alert, Oriented x3, Cooperative, on 3L oxygen HEENT: Atraumatic, PERRLA, EOMI, Normocephalic Neck: Supple, No JVD, Negative Carotid Bruits Lungs: Diminished, wheezes+ Cardiovascular: Normal S1, Normal S2, No murmurs, Irregular Rate, Tachycardic Abdomen: Bowel Sounds Present, Soft, Non Tender Extremities: No edema, Capillary Refill Less than 3 Seconds Skin: No rashes, No breakdown Musculoskeletal: No Tenderness to Palpation of Joints or Extremities Neurological: Cranial nerves II-XII grossly intact Psych/Mental Status: Normal Affect, Appropriate Vitals/I&O's: Vital Signs Temp Pulse Resp BP Pulse Ox 98.0 F 110 H 23 H 89/52 L 99 08/06/19 07:00 08/06/19 08:30 08/06/19 08:30 08/06/19 08:30 08/06/19 08:30 Oxygen Flow Rate (L/min) 3 Oxygen Delivery Method Nasal Cannula Weight: 79.7 kg Body Mass Index (BMI) 27.5 Intake and Output for Last 24 Hours 08/04/19 08/05/19 08/06/19 23:59 23:59 23:59 Intake Total 50 / 50 2584.00 / 2584.00 Output Total 250 / 250 Balance 50 / 50 2334.00 / 2334.00 Microbiology Past 72 Hours 08/06/19 04:55 Mucosa - Nasopharyngeal Influenza Types A,B Direct FA (ROMI) - Final Influenzae B 08/06/19 01:50 Urine, Clean Catch Streptococcus pneumoniae Antigen (M - Final 08/06/19 01:50 Urine, Clean Catch Legionella Antigen - Final Laboratory Results 08/05/19 19:23: WBC 29.9 H, RBC 5.00, Hgb 13.7, Hct 44.7, MCV 89.4, MCH 27.4, MCHC 30.6 L, RDW Std Deviation 56.2 H, RDW Coeff of Laura 17.3 H, Plt Count 288, MPV 12.4 H, Immature Gran % (Auto) 1.100 H, Neut % (Auto) 80.6 H, Lymph % (Auto) 9.0 L, [place] % (Auto) 8.7, Eos % (Auto) 0.4, Baso % (Auto) 0.2, Absolute Neuts (auto) 24.1 H, Absolute Lymphs (auto) 2.70, Nucleated RBC % 0, Differential Comment SEE COMMENTS, Diff Path Review November sarahi, Platelet Estimate ADEQUATE, RBC Morphology N CHROM, Anisocytosis RARE 08/05/19 19:23: PT 33.4 H, INR 3.3 08/05/19 19:23: Sodium 138, Potassium 3.9, Chloride 97 L, Carbon Dioxide 38.0 H, Anion Gap 3 L, BUN 22 H, Creatinine 0.91, Estim Creat Clear Calc 51.94, Est GFR (MDRD) Af Amer 77, Est GFR (MDRD) Non-Af 64, BUN/Creatinine Ratio 24.1 H, Glucose 135 H, Calcium 9.0, Troponin I < 0.015 08/05/19 19:23: B-Natriuretic Peptide 101.9 H 08/05/19 19:23: Lactic Acid 1.4 08/06/19 01:50: MRSA (PCR) Negative 08/06/19 06:03: WBC 38.9 H*, RBC 4.68, Hgb 12.7, Hct 41.8, MCV 89.3, MCH 27.1, MCHC 30.4 L, RDW Std Deviation 56.7 H, RDW Coeff of Laura 17.5 H, Plt Count 219, MPV 12.3 H, Immature Gran % (Auto) 2.200 H, Neut % (Auto) 89.8 H, Lymph % (Auto) 3.4 L, [place] % (Auto) 4.4, Eos % (Auto) 0.0, Baso % (Auto) 0.2, Absolute Neuts (auto) 35.0 H, Absolute Lymphs (auto) 1.32, Nucleated RBC % 0, Differential Comment SCANNED, Diff Path Review November08/06/19 06:03: PT 32.3 H, INR 3.1 08/06/19 06:03: Sodium 141, Potassium 3.8, Chloride 102, Carbon Dioxide 36.0 H, Anion Gap 3 L, BUN 21 H, Creatinine 0.80, Estim Creat Clear Calc 59.09, Est GFR (MDRD) Af Amer 90, Est GFR (MDRD) Non-Af 75, BUN/Creatinine Ratio 26.4 H, Glucose 145 H, Calcium 8.5 08/06/19 06:03: Magnesium 2.0 Current Medications Acetaminophen (Tylenol) 650 mg PO Q6H PRN PRN PRN Reason: Pain Score 1-3/Temp > 100.7 F Last Admin: 08/06/19 02:27 Dose: 650 mg Documented by: Albuterol Sulfate (Ventolin Aerosols) 2.5 mg INHALATION Q2H PRN PRN PRN Reason: sob/wheezing Albuterol/Ipratropium (Duoneb) 3 ml INHALATION Q4HWA.RT [facility] Last Admin: 08/06/19 07:30 Dose: 3 ml Documented by: Benzonatate (Tessalon Perle) 200 mg PO TID PRN PRN PRN Reason: COUGH Buspirone HCl (Buspar) 7.5 mg PO QHS [facility] Citalopram Hydrobromide (Celexa) 40 mg PO DAILY [facility] Last Admin: 08/06/19 08:55 Dose: 40 mg Documented by: Cyanocobalamin (Vitamin B12) 500 mcg PO DAILY@0800 [facility] Last Admin: 08/06/19 08:55 Dose: 500 mcg Documented by: Diltiazem HCl (Cardizem Cd) 120 mg PO Q12 [facility] Ergocalciferol (Vitamin D) 50,000 unit PO TH [facility] Ferrous Sulfate (Ferrous Sulfate) 325 mg PO BIDCM [facility] Last Admin: 08/06/19 08:55 Dose: 325 mg Documented by: Glucagon () 1 mg IM .X1 PRN PRN Reason: Hypoglycemia Guaifenesin (Mucinex) 1,200 mg PO BID [facility] Last Admin: 08/06/19 08:56 Dose: 1,200 mg Documented by: Piperacillin Sod/Tazobactam (Sod 3.375 gm/ Sodium Chloride) 50 mls @ 12.5 mls/hr IV Q8 [facility] Last Admin: 08/06/19 05:28 Dose: 12.5 mls/hr Documented by: Vancomycin IV Pharmacy to Dose (1,250 ea/ Sodium Chloride) 500 mls @ 250 mls/hr IV PRN PRN; Protocol Sodium Chloride () 250 mls @ 15 mls/hr IV .[id number] PRN PRN Reason: Saline Flush Sodium Chloride () 250 mls @ 15 mls/hr IV .[id number] PRN PRN Reason: Additional IVPB Infusion Dextrose (Dextrose 10%-Water) 250 mls @ 999 mls/hr IV .Q16M PRN; Protocol PRN Reason: HYPOGLYCEMIA Amiodarone HCl 360 mg/ (Dextrose) 200 mls @ 16.667 mls/hr CONT INF .Q12H [facility] Stop: 08/07/19 01:00 Last Infusion: 08/06/19 08:30 Dose: 0.5 mg/min, 16.7 mls/hr Documented by: Vancomycin HCl 750 mg/ Sodium (Chloride) 265 mls @ 250 mls/hr IV Q12H [facility] Sodium Chloride () 500 mls @ 999 mls/hr IV .Q31M ONE Stop: 08/06/19 09:26 Magnesium Hydroxide (Milk Of Magnesia) 30 ml PO DAILY PRN PRN PRN Reason: Constipation Methylprednisolone (Solu-Medrol) 40 mg IV Q8 [facility] Metoprolol Tartrate (Lopressor (Beta [place])) 50 mg PO BID [facility] Multivitamins/Minerals (Healthy Eyes) 1 capsule PO BID [facility] Last Admin: 08/06/19 08:56 Dose: 1 capsule Documented by: Nitroglycerin (Nitrostat) 0.4 mg SUBLINGUAL Q5M PRN PRN Reason: CARDIAC/CHEST PAIN Nutritional Formula (Lactose Free) (Ensure Enlive) 120 ml PO 4X/DAY [facility] Last Admin: 08/06/19 08:56 Dose: Not Given Documented by: Ondansetron HCl (Zofran) 4 mg IV Q6H PRN PRN PRN Reason: NAUSEA/VOMITING Last Admin: 08/06/19 02:27 Dose: 4 mg Documented by: Oseltamivir Phosphate (Tamiflu) 30 mg PO BID [facility] Stop: 08/10/19 10:01 Last Admin: 08/06/19 08:56 Dose: 30 mg Documented by: Pantoprazole Sodium (Protonix) 20 mg PO DAILY [facility] Last Admin: 08/06/19 08:56 Dose: 20 mg Documented by: Polyethylene Glycol (Miralax) 17 gm PO DAILY [facility] Senna (Senokot) 1 tablet PO BID [facility] Last Admin: 08/06/19 08:56 Dose: 1 tablet Documented by: Sodium Chloride () 10 - 40 ml IV UD PRN PRN Reason: SALINE FLUSH Last Admin: 08/06/19 08:56 Dose: 10 ml Documented by: Sucralfate (Carafate) 1 gm PO 1HR_ACHS [facility] Last Admin: 08/06/19 06:32 Dose: 1 gm Documented by: Warfarin Sodium (Coumadin (Pbkc)) 3 mg PO SuMoWeFrSa@1700 [facility] Warfarin Sodium (Coumadin (Pbkc)) 4 mg PO TuTh@1700 [facility] Zolpidem Tartrate (Ambien (Generic)) 5 mg PO QHS PRN PRN PRN Reason: INSOMNIA STROKE Vital Signs/Narrative: Vital Signs Temp Pulse Resp BP Pulse Ox 08/06/19 08:30 110 H 23 H 89/52 L 99 08/06/19 08:15 114 H 22 H 90/70 97 08/06/19 08:00 117 H 22 H 100/61 96 08/06/19 07:45 114 H 22 H 108/73 97 08/06/19 07:30 119 H 18 98 08/06/19 07:00 98.0 F 106 H 24 H 109/63 97 08/06/19 06:53 102 H 08/06/19 06:00 98.5 F 129 H 24 H 109/78 96 08/06/19 05:00 100.2 F H 137 H 25 H 106/62 96 Medical Necessity - Tobacco Use Smoking Status: Former smoker Tobacco Use: Cigarettes Assessment/Plan All Active Problems (Last Reviewed 08/06/19 @ 00:49 by Paulo Mota MD) Influenzal bronchopneumonia (Acute) Leukocytosis (Acute) Lactic acidosis (Acute) Pneumonia (Acute) Sepsis (Acute) Severe sepsis (Acute) Hospital acquired PNA (Acute) 1. A. fib with RVR, persistent, BP have been low Managed on iV amiodarone, metoprolol and cardizem on hold Cardiology consult 2. Acute influenza B, recent RSV infection, on Tamiflu 3. Severe sepsis secondary to Acute Left lower lobe pneumonia, secondary to suspected resistant organisms MRSA screen is negative Would still continue on vancomycin and Zosyn in the light of worsening left lower lobe pneumonia We will continue to monitor. Will de-escalate antibiotics pending blood cultures 4. Acute COPD exacerbation likely secondary to acute influenza bronchitis, recently discharged with RSV bronchitis Was on a prednisone taper, will continue on her prednisone, breathing treatments 5. History of PE/DVT, on Coumadin, INR therapeutic 6. History of heart failure with preserved EF, no signs of acute exacerbation, Lasix held on admission account of IVF for severe sepsis Will resume home lasix from tomorrow 7. DVt PPx- INR is therapeutic on coumadin Code Visit Inpatient E&M: 60485 Subs Hosp L2
[2019-08-06] MEDS: Polyethylene Glycol 3350 17 GM PACKET PO (09:21)
--- NOTE | 2019-08-06 10:21 | CASEMGMT ---
Patient is from [place]. YAO faxed updates to [facility] [place]. Regla VIZCARRA MSW
[2019-08-06] MEDS: Benzonatate 100 MG Capsule 200 MG PO ×2 (11:28→21:13)
[2019-08-06 12:20] LABS: Pathologist Review Reviewed
[2019-08-06 12:24] LABS: Pathologist Review Reviewed
--- NOTE | 2019-08-06 14:34 | CON.PCM_ITS ---
Problem List (1) Atrial fibrillation with RVR Status: Chronic (2) Chronic diastolic CHF (congestive heart failure) Status: Chronic (3) Dyslipidemia Status: Chronic (4) HTN (hypertension) Status: Chronic Qualifiers: Hypertension type: essential hypertension Qualified Code(s): I10 - Essential (primary) hypertension (5) COPD (chronic obstructive pulmonary disease) Status: Chronic Qualifiers: COPD type: unspecified COPD Qualified Code(s): J44.9 - Chronic obstructive pulmonary disease, unspecified (6) Pulmonary hypertension Status: Chronic (7) History of recurrent deep vein thrombosis (DVT) Status: Chronic (8) History of pulmonary embolism Status: Chronic (9) Influenzal bronchopneumonia Status: Acute Reason for Consult Date of Consultation: 08/06/19 History of Present Illness: The patient is a 73 year old white female with a past cardiovascular history of atrial fibrillation, chronic diastolic mediated CHF, hyperlipidemia, hypertension, COPD, pulmonary hypertension, thromboembolic disease with DVT/PE, who returns for concerns of nausea, emesis, shortness of breath/dyspnea, with findings of influenza A pneumonia, who was referred for her atrial fibrillation with rapid ventricular response. She states since her most recent departure from [facility] she noted having nausea and green emesis . H she was referred back to [facility] based upon that. She has since been diagnosed with influenza a including pneumonia, however, based upon her atrial fibrillation with rapid ventricular response she was placed back on medical therapy above and beyond her rate limiting therapy with IV amiodarone. Cardiology has been consulted to evaluate and assist in her care. She denies any ongoing chest discomfort. She has had no obvious near syncope or syncope. She states that this time she has not noted the lower extremity peripheral pitting edema as she has had in the past. Her troponin I level has been negative. Her BTNP level was reported at 101. Her ECG demonstrated atrial fibrillation with rapid ventricular response. She had a did not appear to have any acute ECG changes. Her chest x-rays have demonstrated the appearance of a left lower lobe infiltrate. She has been placed on additional medical therapy which has included IV antibiotics above and beyond her antiviral therapy with Tamiflu. [] Past Medical History Allergies/Adverse Reactions: Allergies amlodipine besylate [From [facility]] Adverse Reaction (Verified 08/05/19 20:21) ANKLE AND LEG EDEMA RESOLVED OFF MED-PER PCP PAPERWORK codeine Adverse Reaction (Verified 08/05/19 20:21) MENTAL STATUS CHANGE lisinopril Adverse Reaction (Verified 08/05/19 20:21) COUGH Home Medications: Ambulatory Orders Medication Instructions Recorded Ergocalciferol [Vitamin D] 50,000 unit PO TH 07/19/15 Warfarin Sodium 4 mg PO TUTH 03/08/18 Citalopram Hydrobromide 40 mg PO DAILY 05/23/18 [Citalopram HBr] Ipratropium/Albuterol Sulfate 3 ml INHALATION 4X/DAY 08/10/18 [Duoneb] albuterol sulfate 90 mcg/actuation 2 puff INHALATION Q4H PRN PRN g 09/17/18 aerosol inhaler Budesonide 2 ml IH BID 01/17/19 Omeprazole 20 mg PO DAILY 01/17/19 Senna [Senokot] 1 tab PO BID 01/17/19 Sucralfate [Carafate] 1 gm PO Q6H PRN PRN 01/17/19 Vit A/Vit C/Vit E/Zinc/Copper 1 ea PO BID 01/17/19 [Preservision Areds Tablet] Warfarin [Coumadin] 3 mg PO SUMOWEFRSA 01/17/19 Buspirone HCl 7.5 mg PO QHS 05/07/19 Ferrous Sulfate 325 mg PO BIDCM #1 tab 05/09/19 Zolpidem Tartrate [Ambien] 5 mg PO QHS PRN PRN #7 tab 05/09/19 Acetaminophen [Tylenol Tablet] 650 mg PO Q6H PRN PRN 07/12/19 Cyanocobalamin (Vitamin B-12) 500 mcg PO DAILY@0800 07/12/19 [Vitamin B-12] Polyethylene Glycol 3350 17 gm PO DAILY 07/12/19 Potassium Chloride 20 meq PO BID 07/12/19 Metoprolol Tartrate [Lopressor 50 mg PO BID tab 07/16/19 (beta donna)] Benzonatate [Tessalon Perle] 200 mg PO TID PRN PRN #30 cap 07/31/19 Diltiazem CD [Cardizem CD] 120 mg PO Q12 #60 cap 07/31/19 Furosemide [Lasix] 40 mg PO BID@1000,1800 #60 tab 07/31/19 Prednisone 30 mg PO DAILY 08/06/19 Past Medical History (Chronic Problems): Chronic Problems (Last Reviewed 08/06/19 @ 00:49 by Paulo Mota MD) Diastolic dysfunction (Chronic) Chronic hypoxemic respiratory failure (Chronic) Chronic anticoagulation (Chronic) Former tobacco use (Chronic) Depression (Chronic) Pulmonary hypertension (Chronic) History of recurrent deep vein thrombosis (DVT) (Chronic) History of pulmonary embolism (Chronic) History of cardioversion (Chronic) January of 2018.....HR not controlled with exertion while in AF on Beta donna and cardizem. Converted to NSR with cardioversion Paroxysmal atrial fibrillation (Chronic) DCCV on 01/31/2018; HTN (hypertension) (Chronic) Iron deficiency anemia (Chronic) Chronic diastolic CHF (congestive heart failure) (Chronic) Acute exacerbation of CHF (congestive heart failure) (Chronic) Atrial fibrillation with RVR (Chronic) Dyslipidemia (Chronic) COPD (chronic obstructive pulmonary disease) (Chronic) Surgical History: cholecystectomy, hysterectomy, - - tailbone surgery. Psychiatric History: Anxiety, Depression [employer] History: No pertinent [employer]INE [employer] history - *Family History Maternal Family History: Family History (Last Reviewed 08/06/19 @ 00:50 by Paulo Mota MD) Sister Heart disease History Items: - - Patient notes a maternal history of dementia and stroke. Paternal Family History: Family History (Last Reviewed 08/06/19 @ 00:50 by Paulo Mota MD) Sister Heart disease History Items: - Sibling Family History: Family History (Last Reviewed 08/06/19 @ 00:50 by Paulo Mota MD) Sister Heart disease History Items: - - Patient notes a sibling specifically her sister with Parkinson's disease and heart disease as well as a brother with Parkinson's disease, asthma and history of blood clots. Lives: [facility] Smoking Status: Former smoker Tobacco Use: Cigarettes Alcohol: None Drugs: None Review of Systems - Review of Systems General: Denies: Fever, Night Sweats, Fatigue Cardiovascular: Reports: Shortness of Breath. Denies: Chest Discomfort, Orthopnea, PND, Peripheral Edema, Palpitations, Lightheadedness, Dizziness, Near Syncope, Syncope Respiratory: Reports: Cough, Shortness of Breath. Denies: Sputum Production, Hemoptysis Gastrointestinal: Reports: Nausea, Emesis. Denies: Hematemesis, Hematochezia, Melena Genitourinary: Denies: Dysuria, Hematuria Skin: Denies: Rash Subjectve: This is a 73-year-old white female who appears to be resting comfortably at the moment in no acute distress. Objective: Vital Signs Temp Pulse Resp BP Pulse Ox 97.8 F 113 H 22 H 97/55 L 98 08/06/19 13:00 08/06/19 13:16 08/06/19 13:00 08/06/19 13:16 08/06/19 13:00 Oxygen Flow Rate (L/min) 3 Oxygen Delivery Method Nasal Cannula Weight: 175 lb 11.335 oz Body Mass Index (BMI) 27.5 Intake and Output for Last 24 Hours 08/04/19 08/05/19 08/06/19 23:59 23:59 23:59 Intake Total 50 / 50 3714.15 / 3714.15 Output Total 400 / 400 Balance 50 / 50 3314.15 / 3314.15 General: Awake, Alert, Oriented x 3, Cooperative, No Acute Distress HEENT: Atraumatic, Normocephalic, PERRL, EOMI, Sclera Non Icteric Oral: Moist Mucosa Neck: Supple, Good ROM, No JVD Lungs: Diminished Manuel Bases, Rhonchi Cardiovascular: Irregular Rhythm, Normal S1, Normal S2 Abdomen: Bowel Sounds Present, Soft, Non Tender Extremities: No edema Neurological: No Focal Motor or Sensory Deficit Psych/Mental Status: Appropriate 08/05/19 19:23: WBC 29.9 H, RBC 5.00, Hgb 13.7, Hct 44.7, MCV 89.4, MCH 27.4, MCHC 30.6 L, Plt Count 288, MPV 12.4 H, Immature Gran % (Auto) 1.100 H, Neut % (Auto) 80.6 H, Lymph % (Auto) 9.0 L, [place] % (Auto) 8.7, Eos % (Auto) 0.4, Baso % (Auto) 0.2, Absolute Neuts (auto) 24.1 H, Nucleated RBC % 0 08/05/19 19:23: PT 33.4 H, INR 3.3 08/05/19 19:23: Sodium 138, Potassium 3.9, Chloride 97 L, Carbon Dioxide 38.0 H, Anion Gap 3 L, BUN 22 H, Creatinine 0.91, Est GFR (MDRD) Af Amer 77, Est GFR (MDRD) Non-Af 64, BUN/Creatinine Ratio 24.1 H, Glucose 135 H, Calcium 9.0, Troponin I < 0.015 08/05/19 19:23: B-Natriuretic Peptide 101.9 H 08/05/19 19:23: Lactic Acid 1.4 08/06/19 06:03: WBC 38.9 H*, RBC 4.68, Hgb 12.7, Hct 41.8, MCV 89.3, MCH 27.1, MCHC 30.4 L, Plt Count 219, MPV 12.3 H, Immature Gran % (Auto) 2.200 H, Neut % (Auto) 89.8 H, Lymph % (Auto) 3.4 L, [place] % (Auto) 4.4, Eos % (Auto) 0.0, Baso % (Auto) 0.2, Absolute Neuts (auto) 35.0 H, Nucleated RBC % 0 08/06/19 06:03: PT 32.3 H, INR 3.1 08/06/19 06:03: Sodium 141, Potassium 3.8, Chloride 102, Carbon Dioxide 36.0 H, Anion Gap 3 L, BUN 21 H, Creatinine 0.80, Est GFR (MDRD) Af Amer 90, Est GFR (MDRD) Non-Af 75, BUN/Creatinine Ratio 26.4 H, Glucose 145 H, Calcium 8.5 08/06/19 06:03: Magnesium 2.0 Rhythm: Atrial fibrillation EKG: Atrial fibrillation ECHO: 12?30?20 19 Left ventricle normal with an LVEF 65% Mild right ventricular enlargement Mild left atrial enlargement Trivial MR Mild TR Estimated RV systolic pressure 45 mmHg CXR: As noted above Assessment/Plan 1. Atrial fibrillation with rapid ventricular response The patient continues with atrial fibrillation with rapid ventricular response. She has had persistent atrial fibrillation. She has been on rate control therapy and anticoagulant therapy. Her ventricular rate may be exacerbated by her underlying noncardiac issues including her pulmonary disease process. At the moment she will continue adjustment of medications and attempt to control her rate as best as possible and avoid significant hypotension. At the moment her oral rate limiting medications will be placed on hold. She will receive additional rate limiting medications with IV digitalis. She can be placed on IV diltiazem which can be adjusted to assist with rate while monitoring her blood pressure. Her IV amiodarone will be placed on hold. She will continue her anticoagulant therapy. 2. Chronic diastolic mediated CHF The moment she does not appear to be in overt acute CHF as she has had in the past. She will continue to be followed as deemed appropriate. Depending upon her course she may need over time adjustment of medications including being placed back on diuretic therapy. 3. Hyperlipidemia She will continue lipid-lowering therapy as deemed appropriate. 4. Hypertension At the moment her blood pressure is low. Thus her medications will be adjusted in attempt to avoid significantly low pressures. At the same time her volume status will have to be monitored as to whether or not she may need some additional volume. 5. COPD She has a history of COPD. She has had significant underlying pulmonary disease and has been evaluated by pulmonology in the past. Depending upon her course she may need additional input by pulmonology. 6. Pulmonary hypertension Her most recent estimate of her right-sided pressures are based on her aforementioned transthoracic echocardiogram. 7. 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 8. Influenza A/pneumonia She is receiving antiviral and antibiotic therapy. Depending upon her pulmonary course she may need additional pulmonary input. Comment: The patient's case has been previously discussed and reviewed with the patient and Dr. Santos. This note was generated using a voice recognition system and there may be incorrect words, spelling or punctuation that were not noted when reviewing the office note prior to saving.
[2019-08-06] MEDS: Digoxin 250 MCG/ML Ampul 500 MCG IV (14:55)
--- NOTE | 2019-08-06 19:00 | CPS ---
pt refusing bipap at this time due to stomach ache
[2019-08-06] MEDS: busPIRone 15 MG TABLET 7.5 MG PO (21:02)
[2019-08-06] MEDS: Zolpidem Tartrate 5 MG Tablet PO (21:09)
[2019-08-07] VITALS (51 sets, daily range): BP systolic 69–111; BP diastolic 36–78; PULSE 73–119; RESP 15–26; TEMP 36.3–36.6; O2SAT 93–100
[2019-08-07] MEDS: Albuterol 2.5 MG/3 ML VIAL.NEB. INHALATION (04:57)
[2019-08-07 05:58] LABS: Absolute Lymphocyte Count 1.24 X10^3/uL (0.83-4.51); Absolute Neutrophil Count 22.8 X10^3/uL (2.0-7.7); Basophil# 0.02 X10^3/uL; Basophil% 0.1 % (0-1); Hematocrit 37.6 % (37-47); Hemoglobin 11.5 g/dL (12.0-15.0); Lymphocyte # 1.24 X10^3/ul (4.0); Mean Corp Hgb Conc 30.6 g/dL (32-36); Mean Corpuscular Hgb 27.5 pg (27.0-32.0); Mean Platelet Vol. 12.7 fl (6.2-12.0); Monocyte# 0.39 X10^3/uL; Monocyte% 1.6 % (0-10); NRBC Flagged by Analyzer 0 % (0-5); Neutrophil # 22.84 X10^3/uL (2.7-7.7); POSITIVE DIFFERENTIAL YES; Platelet Count 172 K/mm3 (150-450); RBC Distribution Width CV 17.2 % (11.6-14.6); RBC Distribution Width SD 56.7 fl (35.1-43.9); Red Blood Count 4.18 M/mm3 (4.2-5.4); White Blood Count 24.8 K/mm3 (4.4-11.0)
[2019-08-07] MEDS: Sucralfate 1 GM Tablet PO ×4 (06:00→20:56)
[2019-08-07 06:07] LABS: Differential Indicated SCAN CRITERIA MET
[2019-08-07 06:08] LABS: Prothrombin Time (Protime)PT. 44.7 SECONDS (11.7-14.9)
[2019-08-07 06:16] LABS: International Normalized Ratio 4.7
[2019-08-07 06:26] LABS: Differential Comment SCANNED
[2019-08-07 06:39] LABS: ALB/GLOB Ratio 0.6 RATIO (0.9-2.4); AST(SGOT) 15 U/L (15-37); Alanine Aminotransfer ALT/SGPT 46 U/L (13-56); Albumin, Serum 2.2 g/dL (3.2-5.0); Alkaline Phosphatase 75 U/L (45-117); Anion Gap 3 (5-15); BUN 16 mg/dL (7-18); BUN/Creat Ratio 24.1 RATIO (10-20); Calcium,Total 8.6 mg/dL (8.5-10.1); Chloride 102 mmol/L (98-107); Creatinine, Serum 0.66 mg/dL (0.55-1.02); EST Glomerular Filtration Rate 92 mL/min (>60); Est Glom Filt Rate - Afr Amer 111 mL/min (>60); Estimated Creatinine Clearance 47.27 ml/min; Globulin 3.7 g/dL (2.2-4.2); Glucose 165 mg/dL (74-106); Potassium 3.8 mmol/L (3.5-5.1); Protein, Total 5.9 g/dL (6.4-8.2); Sodium Level 138 mmol/L (136-145)
--- NOTE | 2019-08-07 06:46 | PCM.PN.BLA ---
Progress Note Elevated INR. Coumadin discontinue. Attending MD to evaluate and manage Coumadin dosing. STROKE Vital Signs/Narrative: Vital Signs Temp Pulse Resp BP Pulse Ox 08/07/19 06:23 87 22 H 90/62 93 08/07/19 06:00 92 22 H 95/53 L 94 08/07/19 05:45 90 21 H 99/47 L 95 08/07/19 05:30 90 25 H 95/54 L 95 08/07/19 05:20 87 21 H 77/51 L 95 08/07/19 05:16 85 23 H 88/36 L 96 08/07/19 05:10 97.6 F L 87 22 H 90/47 L 100 08/07/19 05:00 82 19 H 69/44 L 97 08/07/19 04:57 85 18 08/07/19 04:07 83 22 H 105/62 99 08/07/19 04:00 76 17 84/74 L 98 08/07/19 03:02 87 08/07/19 03:00 73 20 H 105/59 L 96
[2019-08-07] MEDS: Ipratropium/Albuterol Sulfate 3 ML AMPUL.NEB INHALATION ×5 (07:26→22:47)
--- NOTE | 2019-08-07 08:19 | PCM.PN.CARD ---
Subjectve: The patient is awake and alert. She denies ongoing chest discomfort. She continues with shortness of breath and dyspnea and coughing. She states she has not coughing up any sputum at the moment. She has not sensed any rapid heart rates. She denies any obvious lower extremity edema. Objective: Vital Signs Temp Pulse Resp BP Pulse Ox 97.3 F L 93 23 H 110/64 97 08/07/19 07:00 08/07/19 08:00 08/07/19 08:00 08/07/19 08:00 08/07/19 08:05 Oxygen Flow Rate (L/min) 3 Oxygen Delivery Method Nasal Cannula Weight: 175 lb 11.335 oz Body Mass Index (BMI) 27.5 Intake and Output for Last 24 Hours 08/05/19 08/06/19 08/07/19 23:59 23:59 23:59 Intake Total 50 / 50 4350.60 / 4364.35 455.17 / 455.17 Output Total 425 / 425 Balance 50 / 50 3925.60 / 3939.35 455.17 / 455.17 General: Awake, Alert, Oriented x 3, Cooperative HEENT: Atraumatic, Normocephalic, PERRL, EOMI, Sclera Non Icteric Oral: Moist Mucosa Neck: Supple, Good ROM, No JVD Lungs: Rhonchi, Expiratory Wheezes-Manuel Cardiovascular: Irregular Rhythm, Normal S1, Normal S2 Abdomen: Bowel Sounds Present, Soft, Non Tender Extremities: No edema Psych/Mental Status: Appropriate 08/07/19 05:25: PT 44.7 H, INR 4.7 H* 08/07/19 05:25: WBC 24.8 H, RBC 4.18 L, Hgb 11.5 L, Hct 37.6, MCV 90.0, MCH 27.5, MCHC 30.6 L, Plt Count 172, MPV 12.7 H, Immature Gran % (Auto) 1.300 H, Neut % (Auto) 92.0 H, Lymph % (Auto) 5.0 L, [place] % (Auto) 1.6, Eos % (Auto) 0.0, Baso % (Auto) 0.1, Absolute Neuts (auto) 22.8 H, Nucleated RBC % 0 08/07/19 05:25: Sodium 138, Potassium 3.8, Chloride 102, Carbon Dioxide 33.0 H, Anion Gap 3 L, BUN 16, Creatinine 0.66, Est GFR (MDRD) Af Amer 111, Est GFR (MDRD) Non-Af 92, BUN/Creatinine Ratio 24.1 H, Glucose 165 H, Calcium 8.6, Total Bilirubin 1.20 H Rhythm: Atrial fibrillation Medical Necessity - Tobacco Use Smoking Status: Former smoker Tobacco Use: Cigarettes Assessment/Plan 1. Atrial fibrillation with rapid ventricular response The patient continues with atrial fibrillation with rapid ventricular response. She has had persistent atrial fibrillation. She has been on rate control therapy and anticoagulant therapy. Her ventricular rate may be exacerbated by her underlying noncardiac issues including her pulmonary disease process. At the moment she will continue adjustment of medications and attempt to control her rate as best as possible and avoid significant hypotension. At the moment she appears to be responding, with respect to her ventricular rate, to a combination of digoxin and IV diltiazem. 2. Chronic diastolic mediated CHF The moment she does not appear to be in overt acute CHF as she has had in the past. She will continue to be followed as deemed appropriate. Depending upon her course she may need over time adjustment of medications including being placed back on diuretic therapy. 3. Hyperlipidemia She will continue lipid-lowering therapy as deemed appropriate. 4. Hypertension At the moment her blood pressure is low. Thus her medications will be adjusted in attempt to avoid significantly low pressures. At the same time her volume status will have to be monitored as to whether or not she may need some additional volume. 5. COPD She has a history of COPD. She has had significant underlying pulmonary disease and has been evaluated by pulmonology in the past. Depending upon her course she may need additional input by pulmonology. 6. Pulmonary hypertension Her most recent estimate of her right-sided pressures are based on her aforementioned transthoracic echocardiogram. 7. 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 8. Influenza A/pneumonia She is receiving antiviral and antibiotic therapy. Depending upon her pulmonary course she may need additional pulmonary input. Comment: The patient's case has been previously discussed and reviewed with the patient. This note was generated using a voice recognition system and there may be incorrect words, spelling or punctuation that were not noted when reviewing the office note prior to saving.
[2019-08-07] MEDS: 0.9% Saline Lock 10 ML Syringe IV ×4 (08:37→20:57)
[2019-08-07] MEDS: Digoxin 250 MCG/ML Ampul IV (08:37)
[2019-08-07] MEDS: Cyanocobalamin 500 MCG Tablet PO (08:44)
[2019-08-07] MEDS: Polyethylene Glycol 3350 17 GM PACKET PO (08:45)
[2019-08-07] MEDS: Citalopram 40 MG TABLET PO (08:45)
[2019-08-07] MEDS: Multivitamin (Healthy Eyes) Capsule 1 CAP PO ×2 (08:45→20:56)
[2019-08-07] MEDS: Pantoprazole Sodium 20 MG Tablet PO (08:46)
[2019-08-07] MEDS: Oseltamivir Phosphate 30 MG Capsule PO ×2 (08:46→21:06)
[2019-08-07] MEDS: Senna Tablet 1 TABLET PO ×2 (08:46→20:57)
[2019-08-07] MEDS: guaiFENesin 1,200 MG Tablet 1200 MG PO ×2 (08:46→20:56)
[2019-08-07 11:49] LABS: Vancomycin, Trough Level 9.4 ug/mL (5.0-15.0)
--- NOTE | 2019-08-07 13:03 | CHAPLAIN ---
patient was sleeping and did not disturb
--- NOTE | 2019-08-07 13:20 | PCM.RX.CS ---
Consult Pharmacy has been consulted to manage selected antiobiotic: Vancomycin Type of Consult: Follow-up Suspected Infection: Sepsis, Pneumonia Prior Doses of Antibiotics Received/Current Regimen: Current regimen is 750mg IV q12h Labs: Sodium 138 mmol/L (136-145) 08/07/19 05:25 Potassium 3.8 mmol/L (3.5-5.1) 08/07/19 05:25 Chloride 102 mmol/L (98-107) 08/07/19 05:25 Carbon Dioxide 33.0 mmol/L (21.0-32.0) H 08/07/19 05:25 Anion Gap 3 (5-15) L 08/07/19 05:25 BUN 16 mg/dL (7-18) 08/07/19 05:25 Creatinine 0.66 mg/dL (0.55-1.02) 08/07/19 05:25 Est GFR (MDRD) Af Amer 111 mL/min (>60) 08/07/19 05:25 Est GFR (MDRD) Non-Af 92 mL/min (>60) 08/07/19 05:25 BUN/Creatinine Ratio 24.1 RATIO (10-20) H 08/07/19 05:25 Glucose 165 mg/dL (74-106) H 08/07/19 05:25 Vancomycin Trough 9.4 ug/mL (5.0-15.0) 08/07/19 11:08 Microbiology: Microbiology 08/06/19 04:55 Mucosa - Nasopharyngeal Influenza Types A,B Direct FA (ROMI) - Final Influenzae B 08/06/19 01:50 Urine, Clean Catch Streptococcus pneumoniae Antigen (M - Final 08/06/19 01:50 Urine, Clean Catch Legionella Antigen - Final Weight used for dosin.7 kg Estimated Creatinine Clearance: 66 ml/min Goal Trough: 15-20 mcg/mL Pharmacy Plan for Drug Dosing: Trough drawn before the noon dose today came back as 9.4 mg/L (drawn 10 hours after the previous dose). This is short of the goal range of 15-20 so will increase the next dose to 1250mg IV q12h to start at 22:00 tonight. Will draw another trough before the 4th new dose. The patient's CrCl of 66 was calculated using an adjusted body weight of 68.8kg. Pharmacy Service will continue to monitor and adjust dosing as required. Follow-Up Labs: Trough Vancomycin Labs to be done on [date and time ordered]: 08/09/19 09:30
--- NOTE | 2019-08-07 13:46 | PN_ITS ---
Patient Problems: Active and Suspected Problems (Last Reviewed 08/06/19 @ 00:49 by Paulo Mota MD) Influenzal bronchopneumonia (Acute) Pneumonia (Acute) Sepsis (Acute) Severe sepsis (Acute) Hospital acquired PNA (Acute) Reason for Visit: Follow-up on pneumonia, A. fib with RVR Subjective: Patient was seen and examined. She feels improved. HR is better on telemetry. Appreciate cardiology consult. Complains of slight nausea and also cough. Encourage use of incentive spirometer Objective: Physical exam: General: Alert, Oriented x3, Cooperative, on 3L oxygen HEENT: Atraumatic, PERRLA, EOMI, Normocephalic Neck: Supple, No JVD, Negative Carotid Bruits Lungs: Diminished, wheezes+ Cardiovascular: Normal S1, Normal S2, No murmurs, Irregular Rate, Tachycardic Abdomen: Bowel Sounds Present, Soft, Non Tender Extremities: No edema, Capillary Refill Less than 3 Seconds Skin: No rashes, No breakdown Musculoskeletal: No Tenderness to Palpation of Joints or Extremities Neurological: Cranial nerves II-XII grossly intact Psych/Mental Status: Normal Affect, Appropriate Vitals/I&O's: Vital Signs Temp Pulse Resp BP Pulse Ox 97.4 F L 98 21 H 96/58 L 97 08/07/19 12:15 08/07/19 13:10 08/07/19 13:10 08/07/19 13:10 08/07/19 13:10 Oxygen Flow Rate (L/min) 2 Oxygen Delivery Method Nasal Cannula Weight: 79.7 kg Body Mass Index (BMI) 27.5 Intake and Output for Last 24 Hours 08/05/19 08/06/19 08/07/19 23:59 23:59 23:59 Intake Total 50 / 50 4350.60 / 4364.35 1071.17 / 1071.17 Output Total 425 / 425 Balance 50 / 50 3925.60 / 3939.35 1071.17 / 1071.17 Microbiology Past 72 Hours 08/06/19 04:55 Mucosa - Nasopharyngeal Influenza Types A,B Direct FA (ROMI) - Final Influenzae B 08/06/19 01:50 Urine, Clean Catch Streptococcus pneumoniae Antigen (M - Final 08/06/19 01:50 Urine, Clean Catch Legionella Antigen - Final Laboratory Results 08/07/19 05:25: PT 44.7 H, INR 4.7 H* 08/07/19 05:25: WBC 24.8 H, RBC 4.18 L, Hgb 11.5 L, Hct 37.6, MCV 90.0, MCH 27 .5, MCHC 30.6 L, RDW Std Deviation 56.7 H, RDW Coeff of Laura 17.2 H, Plt Count 172, MPV 12.7 H, Immature Gran % (Auto) 1.300 H, Neut % (Auto) 92.0 H, Lymph % (Auto) 5.0 L, [place] % (Auto) 1.6, Eos % (Auto) 0.0, Baso % (Auto) 0.1, Absolute Neuts (auto) 22.8 H, Absolute Lymphs (auto) 1.24, Nucleated RBC % 0, Differential Comment SCANNED 08/07/19 05:25: Sodium 138, Potassium 3.8, Chloride 102, Carbon Dioxide 33.0 H, Anion Gap 3 L, BUN 16, Creatinine 0.66, Estim Creat Clear Calc 47.27, Est GFR (MDRD) Af Amer 111, Est GFR (MDRD) Non-Af 92, BUN/Creatinine Ratio 24.1 H, Glucose 165 H, Calcium 8.6, Total Bilirubin 1.20 H, AST 15, ALT 46, Alkaline Phosphatase 75, Total Protein 5.9 L, Albumin 2.2 L, Globulin 3.7, Albumin/Globulin Ratio 0.6 L 08/07/19 11:08: Vancomycin Trough 9.4 Current Medications Acetaminophen (Tylenol) 650 mg PO Q6H PRN PRN PRN Reason: Pain Score 1-3/Temp > 100.7 F Last Admin: 08/06/19 02:27 Dose: 650 mg Documented by: Albuterol Sulfate (Ventolin Aerosols) 2.5 mg INHALATION Q2H PRN PRN PRN Reason: sob/wheezing Last Admin: 08/07/19 04:57 Dose: 2.5 mg Documented by: Albuterol/Ipratropium (Duoneb) 3 ml INHALATION Q4HWA.RT [facility] Last Admin: 08/07/19 10:49 Dose: 3 ml Documented by: Benzonatate (Tessalon Perle) 200 mg PO TID PRN PRN PRN Reason: COUGH Last Admin: 08/06/19 21:13 Dose: 200 mg Documented by: Buspirone HCl (Buspar) 7.5 mg PO QHS [facility] Last Admin: 08/06/19 21:02 Dose: 7.5 mg Documented by: Citalopram Hydrobromide (Celexa) 40 mg PO DAILY [facility] Last Admin: 08/07/19 08:45 Dose: 40 mg Documented by: Cyanocobalamin (Vitamin B12) 500 mcg PO DAILY@0800 [facility] Last Admin: 08/07/19 08:44 Dose: 500 mcg Documented by: Ergocalciferol (Vitamin D) 50,000 unit PO TH [facility] Ferrous Sulfate (Ferrous Sulfate) 325 mg PO BIDCM [facility] Last Admin: 08/07/19 08:44 Dose: Not Given Documented by: Glucagon () 1 mg IM .X1 PRN PRN Reason: Hypoglycemia Guaifenesin (Mucinex) 1,200 mg PO BID [facility] Last Admin: 08/07/19 08:46 Dose: 1,200 mg Documented by: Piperacillin Sod/Tazobactam (Sod 3.375 gm/ Sodium Chloride) 50 mls @ 12.5 mls/hr IV Q8 [facility] Last Admin: 08/07/19 13:42 Dose: 12.5 mls/hr Documented by: Vancomycin IV Pharmacy to Dose (1,250 ea/ Sodium Chloride) 500 mls @ 250 mls/hr IV PRN PRN; Protocol Sodium Chloride () 250 mls @ 15 mls/hr IV .[id number] PRN PRN Reason: Saline Flush Sodium Chloride () 250 mls @ 15 mls/hr IV .[id number] PRN PRN Reason: Additional IVPB Infusion Dextrose (Dextrose 10%-Water) 250 mls @ 999 mls/hr IV .Q16M PRN; Protocol PRN Reason: HYPOGLYCEMIA Diltiazem HCl 125 mg/ Dextrose 125 mls @ 10 mls/hr IV .[id number] [facility]; Protocol Last Titration: 08/07/19 13:10 Dose: 15 mg/hr, 15 mls/hr Documented by: Vancomycin HCl 1,250 mg/ (Sodium Chloride) 275 mls @ 167 mls/hr IV Q12H [facility] Magnesium Hydroxide (Milk Of Magnesia) 30 ml PO DAILY PRN PRN PRN Reason: Constipation Methylprednisolone (Solu-Medrol) 40 mg IV Q8 [facility] Last Admin: 08/07/19 13:41 Dose: 40 mg Documented by: Multivitamins/Minerals (Healthy Eyes) 1 capsule PO BID [facility] Last Admin: 08/07/19 08:45 Dose: 1 capsule Documented by: Nitroglycerin (Nitrostat) 0.4 mg SUBLINGUAL Q5M PRN PRN Reason: CARDIAC/CHEST PAIN Nutritional Formula (Lactose Free) (Ensure Enlive) 120 ml PO 4X/DAY [facility] Last Admin: 08/07/19 13:25 Dose: Not Given Documented by: Ondansetron HCl (Zofran) 4 mg IV Q6H PRN PRN PRN Reason: NAUSEA/VOMITING Last Admin: 08/06/19 14:20 Dose: 4 mg Documented by: Oseltamivir Phosphate (Tamiflu) 30 mg PO BID [facility] Stop: 08/10/19 10:01 Last Admin: 08/07/19 08:46 Dose: 30 mg Documented by: Pantoprazole Sodium (Protonix) 20 mg PO DAILY [facility] Last Admin: 08/07/19 08:46 Dose: 20 mg Documented by: Polyethylene Glycol (Miralax) 17 gm PO DAILY [facility] Last Admin: 08/07/19 08:45 Dose: 17 gm Documented by: Senna (Senokot) 1 tablet PO BID [facility] Last Admin: 08/07/19 08:46 Dose: 1 tablet Documented by: Sodium Chloride () 10 - 40 ml IV UD PRN PRN Reason: SALINE FLUSH Last Admin: 08/07/19 13:42 Dose: 20 ml Documented by: Sucralfate (Carafate) 1 gm PO 1HR_ACHS [facility] Last Admin: 08/07/19 11:19 Dose: 1 gm Documented by: Zolpidem Tartrate (Ambien (Generic)) 5 mg PO QHS PRN PRN PRN Reason: INSOMNIA Last Admin: 08/06/19 21:09 Dose: 5 mg Documented by: STROKE Vital Signs/Narrative: Vital Signs Temp Pulse Resp BP Pulse Ox 08/07/19 13:10 98 21 H 96/58 L 97 08/07/19 13:00 98 23 H 83/61 L 98 08/07/19 12:30 108 H 24 H 111/58 L 97 08/07/19 12:15 97.4 F L 95 23 H 111/51 L 97 08/07/19 12:02 97.4 F L 106 H 23 H 92/78 99 08/07/19 11:45 99 23 H 106/53 L 97 08/07/19 11:37 99 08/07/19 11:31 106 H 26 H 107/64 99 08/07/19 11:22 84 20 H 08/07/19 11:00 98 23 H 111/47 L 100 08/07/19 10:00 97.8 F 91 20 H 94/60 97 Medical Necessity - Tobacco Use Smoking Status: Former smoker Tobacco Use: Cigarettes Assessment/Plan All Active Problems (Last Reviewed 08/06/19 @ 00:49 by Paulo Mota MD) Influenzal bronchopneumonia (Acute) Leukocytosis (Acute) Lactic acidosis (Acute) Pneumonia (Acute) Sepsis (Acute) Severe sepsis (Acute) Hospital acquired PNA (Acute) 1. A. fib with RVR, HR is much improved, in the 80s and 90s On Cardizem drip, given digoxin earlier on Appreciate cardiology consult Continue per recommendations 2. Acute influenza B, recent RSV infection, on Tamiflu 3. Severe sepsis secondary to Acute Left lower lobe pneumonia, secondary to suspected resistant organisms MRSA screen is negative, cultures are pending We will continue on Zosyn and discontinue vancomycin 4. Acute COPD exacerbation likely secondary to acute influenza bronchitis, recently discharged with RSV bronchitis Was on a prednisone taper, will continue on her prednisone, breathing treatments 5. History of PE/DVT, on Coumadin, INR supratherapeutic, INR is 4.7, held Coumadin, PT/INR in a.m. 6. History of heart failure with preserved EF, no signs of acute exacerbation, Lasix held on admission account of IVF for severe sepsis Resume home Lasix 40mg po bid 7. DVt PPx- INR therapeutic, Coumadin held Code Visit Inpatient E&M: 09982 Subs Hosp L2
[2019-08-07] MEDS: Furosemide 40 MG Tablet PO ×2 (14:04→18:07)
[2019-08-07] MEDS: Magnesium Hydroxide 30 ML UDC PO (14:39)
[2019-08-07] MEDS: Famotidine 200 MG/20 ML MDV 20 MG in 0.9% Normal Saline (Pres. free 8 ML 300 MG IV (17:07)
[2019-08-07] MEDS: busPIRone 15 MG TABLET 7.5 MG PO (20:56)
[2019-08-07] MEDS: Zolpidem Tartrate 5 MG Tablet PO (21:12)
[2019-08-08] VITALS (51 sets, daily range): BP systolic 91–149; BP diastolic 43–106; PULSE 81–156; RESP 18–30; TEMP 36.6–37.3; O2SAT 95–100
[2019-08-08] MEDS: Sucralfate 1 GM Tablet PO ×4 (05:36→21:19)
[2019-08-08] MEDS: Acetaminophen 325 MG Tablet 650 MG PO (05:46)
[2019-08-08 05:53] LABS: Absolute Lymphocyte Count 0.49 X10^3/uL (0.83-4.51); Absolute Neutrophil Count 23.4 X10^3/uL (2.0-7.7); Basophil# 0.03 X10^3/uL; Basophil% 0.1 % (0-1); Hematocrit 35.8 % (37-47); Hemoglobin 11.1 g/dL (12.0-15.0); Lymphocyte # 0.49 X10^3/ul (4.0); Mean Corpuscular Hgb 27.9 pg (27.0-32.0); Mean Corpuscular Volume 89.9 fL (81-99); Mean Platelet Vol. 12.9 fl (6.2-12.0); Monocyte# 0.55 X10^3/uL; Monocyte% 2.2 % (0-10); NRBC Flagged by Analyzer 0 % (0-5); Neutrophil # 23.42 X10^3/uL (2.7-7.7); Neutrophil % 94.1 % (47-70); POSITIVE DIFFERENTIAL YES; Platelet Count 201 K/mm3 (150-450); RBC Distribution Width CV 17.2 % (11.6-14.6); RBC Distribution Width SD 57.6 fl (35.1-43.9); Red Blood Count 3.98 M/mm3 (4.2-5.4); White Blood Count 24.9 K/mm3 (4.4-11.0)
[2019-08-08 05:54] LABS: Differential Indicated SCAN CRITERIA MET
[2019-08-08 06:02] LABS: Prothrombin Time (Protime)PT. 41.6 SECONDS (11.7-14.9)
[2019-08-08 06:04] LABS: International Normalized Ratio 4.3
[2019-08-08 06:09] LABS: ALB/GLOB Ratio 0.7 RATIO (0.9-2.4); AST(SGOT) 16 U/L (15-37); Alanine Aminotransfer ALT/SGPT 40 U/L (13-56); Albumin, Serum 2.3 g/dL (3.2-5.0); Alkaline Phosphatase 70 U/L (45-117); Anion Gap 4 (5-15); BUN 18 mg/dL (7-18); BUN/Creat Ratio 23.3 RATIO (10-20); Calcium,Total 8.1 mg/dL (8.5-10.1); Chloride 104 mmol/L (98-107); Creatinine, Serum 0.77 mg/dL (0.55-1.02); EST Glomerular Filtration Rate 77 mL/min (>60); Est Glom Filt Rate - Afr Amer 94 mL/min (>60); Estimated Creatinine Clearance 47.27 ml/min; Globulin 3.5 g/dL (2.2-4.2); Glucose 151 mg/dL (74-106); Potassium 3.4 mmol/L (3.5-5.1); Protein, Total 5.8 g/dL (6.4-8.2); Sodium Level 142 mmol/L (136-145)
--- NOTE | 2019-08-08 07:34 | PCM.PN.HOSP ---
Patient Problems: Active and Suspected Problems (Last Reviewed 08/06/19 @ 00:49 by Paulo Mota MD) Influenzal bronchopneumonia (Acute) Pneumonia (Acute) Sepsis (Acute) Severe sepsis (Acute) Hospital acquired PNA (Acute) Vitals/I&O's: Vital Signs Temp Pulse Resp BP Pulse Ox 97.9 F 90 21 H 104/75 96 08/08/19 04:00 08/08/19 07:00 08/08/19 07:00 08/08/19 07:00 08/08/19 07:00 Oxygen Flow Rate (L/min) 2 Oxygen Delivery Method Nasal Cannula Weight: 79.7 kg Body Mass Index (BMI) 27.5 Intake and Output for Last 24 Hours 08/06/19 08/07/19 08/08/19 23:59 23:59 23:59 Intake Total 4350.60 / 4364.35 1490.92 / 1771.80 460.66 / 460.66 Output Total 425 / 425 300 / 300 350 / 350 Balance 3925.60 / 3939.35 1190.92 / 1471.80 110.66 / 110.66 Microbiology Past 72 Hours 08/06/19 04:55 Mucosa - Nasopharyngeal Influenza Types A,B Direct FA (ROMI) - Final Influenzae B 08/06/19 01:50 Urine, Clean Catch Streptococcus pneumoniae Antigen (M - Final 08/06/19 01:50 Urine, Clean Catch Legionella Antigen - Final Laboratory Results 08/07/19 11:08: Vancomycin Trough 9.4 08/08/19 05:30: PT 41.6 H, INR 4.3 H* 08/08/19 05:30: WBC 24.9 H, RBC 3.98 L, Hgb 11.1 L, Hct 35.8 L, MCV 89.9, MCH 27.9, MCHC 31.0 L, RDW Std Deviation 57.6 H, RDW Coeff of Laura 17.2 H, Plt Count 201, MPV 12.9 H, Immature Gran % (Auto) 1.600 H, Neut % (Auto) 94.1 H, Lymph % (Auto) 2.0 L, [place] % (Auto) 2.2, Eos % (Auto) 0.0, Baso % (Auto) 0.1, Absolute Neuts (auto) 23.4 H, Absolute Lymphs (auto) 0.49 L, Nucleated RBC % 0, Differential Comment COMMENT, Diff Path Review November08/08/19 05:30: Sodium 142, Potassium 3.4 L, Chloride 104, Carbon Dioxide 34.0 H, Anion Gap 4 L, BUN 18, Creatinine 0.77, Estim Creat Clear Calc 47.27, Est GFR (MDRD) Af Amer 94, Est GFR (MDRD) Non-Af 77, BUN/Creatinine Ratio 23.3 H, Glucose 151 H, Calcium 8.1 L, Total Bilirubin 0.50, AST 16, ALT 40, Alkaline Phosphatase 70, Total Protein 5.8 L, Albumin 2.3 L, Globulin 3.5, Albumin/Globulin Ratio 0.7 L Current Medications Acetaminophen (Tylenol) 650 mg PO Q6H PRN PRN PRN Reason: Pain Score 1-3/Temp > 100.7 F Last Admin: 08/08/19 05:46 Dose: 650 mg Documented by: Albuterol Sulfate (Ventolin Aerosols) 2.5 mg INHALATION Q2H PRN PRN PRN Reason: sob/wheezing Last Admin: 08/07/19 04:57 Dose: 2.5 mg Documented by: Albuterol/Ipratropium (Duoneb) 3 ml INHALATION Q4HWA.RT [facility] Last Admin: 08/07/19 22:47 Dose: 3 ml Documented by: Benzonatate (Tessalon Perle) 200 mg PO TID PRN PRN PRN Reason: COUGH Last Admin: 08/06/19 21:13 Dose: 200 mg Documented by: Buspirone HCl (Buspar) 7.5 mg PO QHS [facility] Last Admin: 08/07/19 20:56 Dose: 7.5 mg Documented by: Citalopram Hydrobromide (Celexa) 40 mg PO DAILY [facility] Last Admin: 08/07/19 08:45 Dose: 40 mg Documented by: Cyanocobalamin (Vitamin B12) 500 mcg PO DAILY@0800 [facility] Last Admin: 08/07/19 08:44 Dose: 500 mcg Documented by: Ergocalciferol (Vitamin D) 50,000 unit PO TH [facility] Ferrous Sulfate (Ferrous Sulfate) 325 mg PO BIDCM [facility] Last Admin: 08/07/19 17:13 Dose: Not Given Documented by: Furosemide (Lasix) 40 mg PO BID@1000,1800 [facility] Last Admin: 08/07/19 18:07 Dose: 40 mg Documented by: Glucagon () 1 mg IM .X1 PRN PRN Reason: Hypoglycemia Guaifenesin (Mucinex) 1,200 mg PO BID [facility] Last Admin: 08/07/19 20:56 Dose: 1,200 mg Documented by: Piperacillin Sod/Tazobactam (Sod 3.375 gm/ Sodium Chloride) 50 mls @ 12.5 mls/hr IV Q8 [facility] Last Admin: 08/08/19 05:36 Dose: 12.5 mls/hr Documented by: Sodium Chloride () 250 mls @ 15 mls/hr IV .[id number] PRN PRN Reason: Saline Flush Sodium Chloride () 250 mls @ 15 mls/hr IV .[id number] PRN PRN Reason: Additional IVPB Infusion Dextrose (Dextrose 10%-Water) 250 mls @ 999 mls/hr IV .Q16M PRN; Protocol PRN Reason: HYPOGLYCEMIA Diltiazem HCl 125 mg/ Dextrose 125 mls @ 10 mls/hr IV .[id number] [facility]; Protocol Last Titration: 08/08/19 07:00 Dose: 5 mg/hr, 5 mls/hr Documented by: Famotidine 20 mg/ Sodium (Chloride) 10 mls @ 300 mls/hr IV Q24 [facility] Last Infusion: 08/07/19 17:09 Dose: Infused Documented by: Magnesium Hydroxide (Milk Of Magnesia) 30 ml PO DAILY PRN PRN PRN Reason: Constipation Last Admin: 08/07/19 14:39 Dose: 30 ml Documented by: Methylprednisolone (Solu-Medrol) 40 mg IV Q8 [facility] Last Admin: 08/08/19 05:36 Dose: 40 mg Documented by: Multivitamins/Minerals (Healthy Eyes) 1 capsule PO BID [facility] Last Admin: 08/07/19 20:56 Dose: 1 capsule Documented by: Nitroglycerin (Nitrostat) 0.4 mg SUBLINGUAL Q5M PRN PRN Reason: CARDIAC/CHEST PAIN Nutritional Formula (Lactose Free) (Ensure Enlive) 120 ml PO 4X/DAY [facility] Last Admin: 08/07/19 20:57 Dose: Not Given Documented by: Ondansetron HCl (Zofran) 4 mg IV Q6H PRN PRN PRN Reason: NAUSEA/VOMITING Last Admin: 08/06/19 14:20 Dose: 4 mg Documented by: Oseltamivir Phosphate (Tamiflu) 30 mg PO BID [facility] Stop: 08/10/19 10:01 Last Admin: 08/07/19 21:06 Dose: 30 mg Documented by: Pantoprazole Sodium (Protonix) 20 mg PO DAILY [facility] Last Admin: 08/07/19 08:46 Dose: 20 mg Documented by: Polyethylene Glycol (Miralax) 17 gm PO DAILY [facility] Last Admin: 08/07/19 08:45 Dose: 17 gm Documented by: Potassium Chloride (K-Dur) 40 meq PO X1 [facility] Stop: 08/08/19 07:34 Senna (Senokot) 1 tablet PO BID [facility] Last Admin: 08/07/19 20:57 Dose: 1 tablet Documented by: Sodium Chloride () 10 - 40 ml IV UD PRN PRN Reason: SALINE FLUSH Last Admin: 08/07/19 20:57 Dose: 20 ml Documented by: Sucralfate (Carafate) 1 gm PO 1HR_ACHS [facility] Last Admin: 08/08/19 05:36 Dose: 1 gm Documented by: Zolpidem Tartrate (Ambien (Generic)) 5 mg PO QHS PRN PRN PRN Reason: INSOMNIA Last Admin: 08/07/19 21:12 Dose: 5 mg Documented by: STROKE Vital Signs/Narrative: Vital Signs Temp Pulse Resp BP Pulse Ox 08/08/19 07:00 90 21 H 104/75 96 08/08/19 06:49 89 08/08/19 06:00 89 21 H 106/57 L 97 08/08/19 05:00 92 23 H 103/86 H 97 08/08/19 04:00 97.9 F 89 20 H 108/66 97 Medical Necessity - Tobacco Use Smoking Status: Former smoker Tobacco Use: Cigarettes Assessment/Plan All Active Problems (Last Reviewed 08/06/19 @ 00:49 by Paulo Mota MD) Influenzal bronchopneumonia (Acute) Leukocytosis (Acute) Lactic acidosis (Acute) Pneumonia (Acute) Sepsis (Acute) Severe sepsis (Acute) Hospital acquired PNA (Acute)
[2019-08-08] MEDS: Ipratropium/Albuterol Sulfate 3 ML AMPUL.NEB INHALATION ×4 (07:49→19:39)
--- NOTE | 2019-08-08 08:35 | PCM.PN.CARD ---
Subjectve: The patient is awake and alert. She denies ongoing chest discomfort or obvious palpitations. She continues with her chronic shortness of breath and cough. She denies any sputum production. She states she did not wear the BiPAP device last night. Objective: Vital Signs Temp Pulse Resp BP Pulse Ox 97.9 F 81 21 H 104/75 96 08/08/19 04:00 08/08/19 07:55 08/08/19 07:55 08/08/19 07:00 08/08/19 07:55 Oxygen Flow Rate (L/min) 2 Oxygen Delivery Method Nasal Cannula Weight: 175 lb 11.335 oz Body Mass Index (BMI) 27.5 Intake and Output for Last 24 Hours 08/06/19 08/07/19 08/08/19 23:59 23:59 23:59 Intake Total 4350.60 / 4364.35 1490.92 / 1771.80 460.66 / 460.66 Output Total 425 / 425 300 / 300 350 / 350 Balance 3925.60 / 3939.35 1190.92 / 1471.80 110.66 / 110.66 General: Awake, Alert, Oriented x 3, Cooperative, No Acute Distress HEENT: Atraumatic, Normocephalic, PERRL, EOMI, Sclera Non Icteric Oral: Moist Mucosa Neck: Supple, Good ROM, No JVD Lungs: Rhonchi, Expiratory Wheezes-Manuel Cardiovascular: Irregular Rhythm, Normal S1, Normal S2 Abdomen: Bowel Sounds Present, Soft, Non Tender Extremities: No edema Psych/Mental Status: Appropriate 08/08/19 05:30: PT 41.6 H, INR 4.3 H* 08/08/19 05:30: WBC 24.9 H, RBC 3.98 L, Hgb 11.1 L, Hct 35.8 L, MCV 89.9, MCH 27.9, MCHC 31.0 L, Plt Count 201, MPV 12.9 H, Immature Gran % (Auto) 1.600 H, Neut % (Auto) 94.1 H, Lymph % (Auto) 2.0 L, [place] % (Auto) 2.2, Eos % (Auto) 0.0, Baso % (Auto) 0.1, Absolute Neuts (auto) 23.4 H, Nucleated RBC % 0 08/08/19 05:30: Sodium 142, Potassium 3.4 L, Chloride 104, Carbon Dioxide 34.0 H, Anion Gap 4 L, BUN 18, Creatinine 0.77, Est GFR (MDRD) Af Amer 94, Est GFR (MDRD) Non-Af 77, BUN/Creatinine Ratio 23.3 H, Glucose 151 H, Calcium 8.1 L, Total Bilirubin 0.50 Rhythm: Atrial fibrillation Medical Necessity - Tobacco Use Smoking Status: Former smoker Tobacco Use: Cigarettes Assessment/Plan 1. Atrial fibrillation with rapid ventricular response The patient continues with atrial fibrillation with rapid ventricular response. She has had persistent atrial fibrillation. She has been on rate control therapy and anticoagulant therapy. Her ventricular rate may be exacerbated by her underlying noncardiac issues including her pulmonary disease process. At the moment she will continue adjustment of medications and attempt to control her rate as best as possible and avoid significant hypotension. At the moment she appears to be responding, with respect to her ventricular rate, to a combination of digoxin and IV diltiazem. Thus she will continue with oral digoxin with follow-up digoxin levels. Over time her IV diltiazem will be weaned as tolerated. She may need to return to oral diltiazem as well. 2. Chronic diastolic mediated CHF The moment she does not appear to be in overt acute CHF as she has had in the past. She will continue to be followed as deemed appropriate. Depending upon her course she may need over time adjustment of medications including being placed back on diuretic therapy. 3. Hyperlipidemia She will continue lipid-lowering therapy as deemed appropriate. 4. Hypertension At the moment her blood pressure is low. Thus her medications will be adjusted in attempt to avoid significantly low pressures. At the same time her volume status will have to be monitored as to whether or not she may need some additional volume. 5. COPD She has a history of COPD. She has had significant underlying pulmonary disease and has been evaluated by pulmonology in the past. Depending upon her course she may need additional input by pulmonology. 6. Pulmonary hypertension Her most recent estimate of her right-sided pressures are based on her aforementioned transthoracic echocardiogram. 7. 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 8. Influenza A/pneumonia She is receiving antiviral and antibiotic therapy. Depending upon her pulmonary course she may need additional pulmonary input. Comment: The patient's case has been previously discussed and reviewed with the patient. This note was generated using a voice recognition system and there may be incorrect words, spelling or punctuation that were not noted when reviewing the office note prior to saving.
[2019-08-08] MEDS: Pantoprazole Sodium 20 MG Tablet PO (08:43)
[2019-08-08] MEDS: Cyanocobalamin 500 MCG Tablet PO (08:43)
[2019-08-08] MEDS: Senna Tablet 1 TABLET PO ×2 (08:43→21:19)
[2019-08-08] MEDS: Multivitamin (Healthy Eyes) Capsule 1 CAP PO ×2 (08:43→21:19)
[2019-08-08] MEDS: Furosemide 40 MG Tablet PO ×2 (08:43→17:41)
[2019-08-08] MEDS: guaiFENesin 1,200 MG Tablet 1200 MG PO ×2 (08:43→21:19)
[2019-08-08] MEDS: Polyethylene Glycol 3350 17 GM PACKET PO (08:44)
[2019-08-08] MEDS: Citalopram 40 MG TABLET PO (08:44)
[2019-08-08] MEDS: Oseltamivir Phosphate 30 MG Capsule PO ×2 (08:44→21:19)
[2019-08-08] MEDS: Famotidine 200 MG/20 ML MDV 20 MG in 0.9% Normal Saline (Pres. free 8 ML 300 MG IV (08:45)
[2019-08-08] MEDS: Digoxin 250 MCG Tablet PO (09:42)
--- NOTE | 2019-08-08 10:26 | CASEMGMT ---
YAO faxed updates to [place]. Plan is discharge back to [place] tomorrow. Regla VIZCARRA MSW
--- NOTE | 2019-08-08 12:54 | PCM.PN.HOSP ---
<Kris Pollard - Last Filed: 08/08/19 12:54> Patient Problems: Active and Suspected Problems (Last Reviewed 08/06/19 @ 00:49 by Paulo Mota MD) Influenzal bronchopneumonia (Acute) Pneumonia (Acute) Sepsis (Acute) Severe sepsis (Acute) Hospital acquired PNA (Acute) Reason for Visit: SOB Subjective: Ongoing SOB, worse with exertion. Ongoing productive cough. No fever/chills. Mild LE edema. No N/V/D. Still very tachycardic with mild exertion. No palpitations. Vitals/I&O's: Vital Signs Temp Pulse Resp BP Pulse Ox 98.7 F 101 H 22 H 113/62 97 08/08/19 11:00 08/08/19 12:30 08/08/19 12:30 08/08/19 12:30 08/08/19 12:30 Oxygen Flow Rate (L/min) 2 Oxygen Delivery Method Nasal Cannula Weight: 175 lb 11.335 oz Body Mass Index (BMI) 27.5 Intake and Output for Last 24 Hours 08/06/19 08/07/19 08/08/19 23:59 23:59 23:59 Intake Total 4350.60 / 4364.35 1490.92 / 1771.80 809.82 / 809.82 Output Total 425 / 425 300 / 300 750 / 750 Balance 3925.60 / 3939.35 1190.92 / 1471.80 59.82 / 59.82 General: Alert, Oriented x3, Cooperative HEENT: Atraumatic, PERRLA, EOMI, Normocephalic Neck: Supple, No JVD, Negative Carotid Bruits Lungs: Normal air movement, No rhonchi, Rales Cardiovascular: Irregular Rate, Tachycardic Abdomen: Bowel Sounds Present, Soft, Non Tender Extremities: Capillary Refill Less than 3 Seconds, Edema - trace Skin: No rashes, No breakdown Musculoskeletal: No Tenderness to Palpation of Joints or Extremities Neurological: Cranial nerves II-XII grossly intact Psych/Mental Status: Normal Affect, Appropriate, Alert and oriented to time, place, person, mood and affect Microbiology Past 72 Hours 08/05/19 19:55 Blood Culture (Wb) - Left Forearm Blood Culture - Preliminary No growth in 48 hours. 08/05/19 19:23 Blood Culture (Wb) - Anticubital Left Blood Culture - Preliminary No growth in 48 hours. 08/06/19 04:55 Mucosa - Nasopharyngeal Influenza Types A,B Direct FA (ROMI) - Final Influenzae B 08/06/19 01:50 Urine, Clean Catch Streptococcus pneumoniae Antigen (M - Final 08/06/19 01:50 Urine, Clean Catch Legionella Antigen - Final Laboratory Results 08/08/19 05:30: PT 41.6 H, INR 4.3 H* 08/08/19 05:30: WBC 24.9 H, RBC 3.98 L, Hgb 11.1 L, Hct 35.8 L, MCV 89.9, MCH 27.9, MCHC 31.0 L, RDW Std Deviation 57.6 H, RDW Coeff of Laura 17.2 H, Plt Count 201, MPV 12.9 H, Immature Gran % (Auto) 1.600 H, Neut % (Auto) 94.1 H, Lymph % (Auto) 2.0 L, [place] % (Auto) 2.2, Eos % (Auto) 0.0, Baso % (Auto) 0.1, Absolute Neuts (auto) 23.4 H, Absolute Lymphs (auto) 0.49 L, Nucleated RBC % 0, Differential Comment COMMENT, Diff Path Review November08/08/19 05:30: Sodium 142, Potassium 3.4 L, Chloride 104, Carbon Dioxide 34.0 H, Anion Gap 4 L, BUN 18, Creatinine 0.77, Estim Creat Clear Calc 47.27, Est GFR (MDRD) Af Amer 94, Est GFR (MDRD) Non-Af 77, BUN/Creatinine Ratio 23.3 H, Glucose 151 H, Calcium 8.1 L, Total Bilirubin 0.50, AST 16, ALT 40, Alkaline Phosphatase 70, Total Protein 5.8 L, Albumin 2.3 L, Globulin 3.5, Albumin/Globulin Ratio 0.7 L Current Medications Acetaminophen (Tylenol) 650 mg PO Q6H PRN PRN PRN Reason: Pain Score 1-3/Temp > 100.7 F Last Admin: 08/08/19 05:46 Dose: 650 mg Documented by: Albuterol Sulfate (Ventolin Aerosols) 2.5 mg INHALATION Q2H PRN PRN PRN Reason: sob/wheezing Last Admin: 08/07/19 04:57 Dose: 2.5 mg Documented by: Albuterol/Ipratropium (Duoneb) 3 ml INHALATION Q4HWA.RT [facility] Last Admin: 08/08/19 10:53 Dose: 3 ml Documented by: Benzonatate (Tessalon Perle) 200 mg PO TID PRN PRN PRN Reason: COUGH Last Admin: 08/06/19 21:13 Dose: 200 mg Documented by: Buspirone HCl (Buspar) 7.5 mg PO QHS [facility] Last Admin: 08/07/19 20:56 Dose: 7.5 mg Documented by: Citalopram Hydrobromide (Celexa) 40 mg PO DAILY [facility] Last Admin: 08/08/19 08:44 Dose: 40 mg Documented by: Cyanocobalamin (Vitamin B12) 500 mcg PO DAILY@0800 [facility] Last Admin: 08/08/19 08:43 Dose: 500 mcg Documented by: Digoxin (Lanoxin) 250 mcg PO DAILY [facility] Last Admin: 08/08/19 09:42 Dose: 250 mcg Documented by: Ergocalciferol (Vitamin D) 50,000 unit PO TH [facility] Last Admin: 08/08/19 08:43 Dose: 50,000 unit Documented by: Ferrous Sulfate (Ferrous Sulfate) 325 mg PO BIDCM [facility] Last Admin: 08/08/19 08:49 Dose: Not Given Documented by: Furosemide (Lasix) 40 mg PO BID@1000,1800 [facility] Last Admin: 08/08/19 08:43 Dose: 40 mg Documented by: Glucagon () 1 mg IM .X1 PRN PRN Reason: Hypoglycemia Guaifenesin (Mucinex) 1,200 mg PO BID [facility] Last Admin: 08/08/19 08:43 Dose: 1,200 mg Documented by: Piperacillin Sod/Tazobactam (Sod 3.375 gm/ Sodium Chloride) 50 mls @ 12.5 mls/hr IV Q8 [facility] Last Infusion: 08/08/19 10:01 Dose: Infused Documented by: Sodium Chloride () 250 mls @ 15 mls/hr IV .[id number] PRN PRN Reason: Saline Flush Sodium Chloride () 250 mls @ 15 mls/hr IV .[id number] PRN PRN Reason: Additional IVPB Infusion Dextrose (Dextrose 10%-Water) 250 mls @ 999 mls/hr IV .Q16M PRN; Protocol PRN Reason: HYPOGLYCEMIA Diltiazem HCl 125 mg/ Dextrose 125 mls @ 10 mls/hr IV .[id number] [facility]; Protocol Last Admin: 08/08/19 12:32 Dose: 15 mg/hr, 15 mls/hr Documented by: Famotidine 20 mg/ Sodium (Chloride) 10 mls @ 300 mls/hr IV Q24 [facility] Last Infusion: 08/08/19 09:09 Dose: Infused Documented by: Magnesium Hydroxide (Milk Of Magnesia) 30 ml PO DAILY PRN PRN PRN Reason: Constipation Last Admin: 08/07/19 14:39 Dose: 30 ml Documented by: Methylprednisolone (Solu-Medrol) 40 mg IV Q8 [facility] Last Admin: 08/08/19 05:36 Dose: 40 mg Documented by: Multivitamins/Minerals (Healthy Eyes) 1 capsule PO BID [facility] Last Admin: 08/08/19 08:43 Dose: 1 capsule Documented by: Nitroglycerin (Nitrostat) 0.4 mg SUBLINGUAL Q5M PRN PRN Reason: CARDIAC/CHEST PAIN Nutritional Formula (Lactose Free) (Ensure Enlive) 120 ml PO 4X/DAY [facility] Last Admin: 08/08/19 08:45 Dose: Not Given Documented by: Ondansetron HCl (Zofran) 4 mg IV Q6H PRN PRN PRN Reason: NAUSEA/VOMITING Last Admin: 08/06/19 14:20 Dose: 4 mg Documented by: Oseltamivir Phosphate (Tamiflu) 30 mg PO BID [facility] Stop: 08/10/19 10:01 Last Admin: 08/08/19 08:44 Dose: 30 mg Documented by: Pantoprazole Sodium (Protonix) 20 mg PO DAILY [facility] Last Admin: 08/08/19 08:43 Dose: 20 mg Documented by: Polyethylene Glycol (Miralax) 17 gm PO DAILY [facility] Last Admin: 08/08/19 08:44 Dose: 17 gm Documented by: Senna (Senokot) 1 tablet PO BID [facility] Last Admin: 08/08/19 08:43 Dose: 1 tablet Documented by: Sodium Chloride () 10 - 40 ml IV UD PRN PRN Reason: SALINE FLUSH Last Admin: 08/07/19 20:57 Dose: 20 ml Documented by: Sucralfate (Carafate) 1 gm PO 1HR_ACHS [facility] Last Admin: 08/08/19 09:42 Dose: 1 gm Documented by: Zolpidem Tartrate (Ambien (Generic)) 5 mg PO QHS PRN PRN PRN Reason: INSOMNIA Last Admin: 08/07/19 21:12 Dose: 5 mg Documented by: STROKE Vital Signs/Narrative: Vital Signs Temp Pulse Resp BP Pulse Ox 08/08/19 12:30 101 H 22 H 113/62 97 08/08/19 12:15 121 H 21 H 118/106 H 98 08/08/19 12:00 103 H 23 H 127/78 H 98 08/08/19 11:10 24 H 08/08/19 11:08 101 H 08/08/19 11:00 98.7 F 91 20 H 115/79 100 08/08/19 10:53 90 22 H 08/08/19 10:16 145 H 08/08/19 10:00 156 H 25 H 108/71 100 08/08/19 09:30 97.9 F 97 22 H 113/63 95 08/08/19 09:15 105 H 24 H 118/65 96 08/08/19 09:00 98 22 H 118/69 96 Medical Necessity - Tobacco Use Smoking Status: Former smoker Tobacco Use: Cigarettes Assessment/Plan All Active Problems (Last Reviewed 08/06/19 @ 00:49 by Paulo Mota MD) Influenzal bronchopneumonia (Acute) Leukocytosis (Acute) Lactic acidosis (Acute) Pneumonia (Acute) Sepsis (Acute) Severe sepsis (Acute) Hospital acquired PNA (Acute) 1. Afib RVR - improved however severely tachycardic with ambulation only several steps. Cardiology following. Will reduce frequency of albuterol. -Continue Dig, cardizem, 2. Acute flu B, recent RSV - continue tamiflu, supportive care. 3. Acute sepsis 2/2 LLL pna - MRSA neg. Continue zosyn. 4. COPD exacerbation 2/2 #2/3 - continue aerosols, continue solumedrol. 5. Prior PE/DVT - warfarin DVT ppx: warfarin (currently held for high INR) DC planning: already has home o2. Still very SOB/tachy with exertion. This patient was seen by Kris Pollard PA-C under the supervision of Doctor Santos. <[place] - Last Filed: 08/08/19 13:50> Vitals/I&O's: Vital Signs Temp Pulse Resp BP Pulse Ox 98.7 F 95 23 H 115/62 96 08/08/19 11:00 08/08/19 13:00 08/08/19 13:00 08/08/19 13:00 08/08/19 13:00 Oxygen Flow Rate (L/min) 2 Oxygen Delivery Method Nasal Cannula Weight: 79.7 kg Body Mass Index (BMI) 27.5 Intake and Output for Last 24 Hours 08/06/19 08/07/19 08/08/19 23:59 23:59 23:59 Intake Total 4350.60 / 4364.35 1490.92 / 1771.80 816.82 / 816.82 Output Total 425 / 425 300 / 300 750 / 750 Balance 3925.60 / 3939.35 1190.92 / 1471.80 66.82 / 66.82 Microbiology Past 72 Hours 08/05/19 19:55 Blood Culture (Wb) - Left Forearm Blood Culture - Preliminary No growth in 48 hours. 08/05/19 19:23 Blood Culture (Wb) - Anticubital Left Blood Culture - Preliminary No growth in 48 hours. 08/06/19 04:55 Mucosa - Nasopharyngeal Influenza Types A,B Direct FA (ROMI) - Final Influenzae B 08/06/19 01:50 Urine, Clean Catch Streptococcus pneumoniae Antigen (M - Final 08/06/19 01:50 Urine, Clean Catch Legionella Antigen - Final Laboratory Results 08/08/19 05:30: PT 41.6 H, INR 4.3 H* 08/08/19 05:30: WBC 24.9 H, RBC 3.98 L, Hgb 11.1 L, Hct 35.8 L, MCV 89.9, MCH 27.9, MCHC 31.0 L, RDW Std Deviation 57.6 H, RDW Coeff of Laura 17.2 H, Plt Count 201, MPV 12.9 H, Immature Gran % (Auto) 1.600 H, Neut % (Auto) 94.1 H, Lymph % (Auto) 2.0 L, [place] % (Auto) 2.2, Eos % (Auto) 0.0, Baso % (Auto) 0.1, Absolute Neuts (auto) 23.4 H, Absolute Lymphs (auto) 0.49 L, Nucleated RBC % 0, Differential Comment COMMENT, Diff Path Review November foll 08/08/19 05:30: Sodium 142, Potassium 3.4 L, Chloride 104, Carbon Dioxide 34.0 H, Anion Gap 4 L, BUN 18, Creatinine 0.77, Estim Creat Clear Calc 47.27, Est GFR (MDRD) Af Amer 94, Est GFR (MDRD) Non-Af 77, BUN/Creatinine Ratio 23.3 H, Glucose 151 H, Calcium 8.1 L, Total Bilirubin 0.50, AST 16, ALT 40, Alkaline Phosphatase 70, Total Protein 5.8 L, Albumin 2.3 L, Globulin 3.5, Albumin/Globulin Ratio 0.7 L Current Medications Acetaminophen (Tylenol) 650 mg PO Q6H PRN PRN PRN Reason: Pain Score 1-3/Temp > 100.7 F Last Admin: 08/08/19 05:46 Dose: 650 mg Documented by: Albuterol Sulfate (Ventolin Aerosols) 2.5 mg INHALATION Q2H PRN PRN PRN Reason: sob/wheezing Last Admin: 08/07/19 04:57 Dose: 2.5 mg Documented by: Albuterol/Ipratropium (Duoneb) 3 ml INHALATION Q4HWA.RT [facility] Last Admin: 08/08/19 10:53 Dose: 3 ml Documented by: Benzonatate (Tessalon Perle) 200 mg PO TID PRN PRN PRN Reason: COUGH Last Admin: 08/06/19 21:13 Dose: 200 mg Documented by: Buspirone HCl (Buspar) 7.5 mg PO QHS [facility] Last Admin: 08/07/19 20:56 Dose: 7.5 mg Documented by: Citalopram Hydrobromide (Celexa) 40 mg PO DAILY [facility] Last Admin: 08/08/19 08:44 Dose: 40 mg Documented by: Cyanocobalamin (Vitamin B12) 500 mcg PO DAILY@0800 [facility] Last Admin: 08/08/19 08:43 Dose: 500 mcg Documented by: Digoxin (Lanoxin) 250 mcg PO DAILY [facility] Last Admin: 08/08/19 09:42 Dose: 250 mcg Documented by: Ergocalciferol (Vitamin D) 50,000 unit PO TH [facility] Last Admin: 08/08/19 08:43 Dose: 50,000 unit Documented by: Ferrous Sulfate (Ferrous Sulfate) 325 mg PO BIDCM [facility] Last Admin: 08/08/19 08:49 Dose: Not Given Documented by: Furosemide (Lasix) 40 mg PO BID@1000,1800 [facility] Last Admin: 08/08/19 08:43 Dose: 40 mg Documented by: Glucagon () 1 mg IM .X1 PRN PRN Reason: Hypoglycemia Guaifenesin (Mucinex) 1,200 mg PO BID [facility] Last Admin: 08/08/19 08:43 Dose: 1,200 mg Documented by: Piperacillin Sod/Tazobactam (Sod 3.375 gm/ Sodium Chloride) 50 mls @ 12.5 mls/hr IV Q8 [facility] Last Infusion: 08/08/19 10:01 Dose: Infused Documented by: Sodium Chloride () 250 mls @ 15 mls/hr IV .[id number] PRN PRN Reason: Saline Flush Sodium Chloride () 250 mls @ 15 mls/hr IV .[id number] PRN PRN Reason: Additional IVPB Infusion Dextrose (Dextrose 10%-Water) 250 mls @ 999 mls/hr IV .Q16M PRN; Protocol PRN Reason: HYPOGLYCEMIA Diltiazem HCl 125 mg/ Dextrose 125 mls @ 10 mls/hr IV .[id number] [facility]; Protocol Last Titration: 08/08/19 13:00 Dose: 15 mg/hr, 15 mls/hr Documented by: Famotidine 20 mg/ Sodium (Chloride) 10 mls @ 300 mls/hr IV Q24 [facility] Last Infusion: 08/08/19 09:09 Dose: Infused Documented by: Magnesium Hydroxide (Milk Of Magnesia) 30 ml PO DAILY PRN PRN PRN Reason: Constipation Last Admin: 08/07/19 14:39 Dose: 30 ml Documented by: Methylprednisolone (Solu-Medrol) 40 mg IV Q8 [facility] Last Admin: 08/08/19 05:36 Dose: 40 mg Documented by: Multivitamins/Minerals (Healthy Eyes) 1 capsule PO BID [facility] Last Admin: 08/08/19 08:43 Dose: 1 capsule Documented by: Nitroglycerin (Nitrostat) 0.4 mg SUBLINGUAL Q5M PRN PRN Reason: CARDIAC/CHEST PAIN Nutritional Formula (Lactose Free) (Ensure Enlive) 120 ml PO 4X/DAY [facility] Last Admin: 08/08/19 08:45 Dose: Not Given Documented by: Ondansetron HCl (Zofran) 4 mg IV Q6H PRN PRN PRN Reason: NAUSEA/VOMITING Last Admin: 08/06/19 14:20 Dose: 4 mg Documented by: Oseltamivir Phosphate (Tamiflu) 30 mg PO BID [facility] Stop: 08/10/19 10:01 Last Admin: 08/08/19 08:44 Dose: 30 mg Documented by: Pantoprazole Sodium (Protonix) 20 mg PO DAILY [facility] Last Admin: 08/08/19 08:43 Dose: 20 mg Documented by: Polyethylene Glycol (Miralax) 17 gm PO DAILY [facility] Last Admin: 08/08/19 08:44 Dose: 17 gm Documented by: Senna (Senokot) 1 tablet PO BID [facility] Last Admin: 08/08/19 08:43 Dose: 1 tablet Documented by: Sodium Chloride () 10 - 40 ml IV UD PRN PRN Reason: SALINE FLUSH Last Admin: 08/07/19 20:57 Dose: 20 ml Documented by: Sucralfate (Carafate) 1 gm PO 1HR_ACHS [facility] Last Admin: 08/08/19 09:42 Dose: 1 gm Documented by: Zolpidem Tartrate (Ambien (Generic)) 5 mg PO QHS PRN PRN PRN Reason: INSOMNIA Last Admin: 08/07/19 21:12 Dose: 5 mg Documented by: STROKE Vital Signs/Narrative: Vital Signs Temp Pulse Resp BP Pulse Ox 08/08/19 13:00 95 23 H 115/62 96 08/08/19 12:45 93 22 H 120/43 L 97 08/08/19 12:30 101 H 22 H 113/62 97 08/08/19 12:15 121 H 21 H 118/106 H 98 08/08/19 12:00 103 H 23 H 127/78 H 98 08/08/19 11:10 24 H 08/08/19 11:08 101 H 08/08/19 11:00 98.7 F 91 20 H 115/79 100 08/08/19 10:53 90 22 H 08/08/19 10:16 145 H 08/08/19 10:00 156 H 25 H 108/71 100 Assessment/Plan This patient was seen in conjunction with JODI Huitron. I have independently interviewed and examined the patient and reviewed pertinent historical, laboratory, and other data. Please refer to JODI Huitron note for his patient's presentation, findings, and recommendations. I have reviewed and his note and concur with his documentation Patient was seen and examined. She feels improved. Working with PT/OT. Remains on Cardizem drip. Waiting on cardiology for recommendations. Physical Exam: Gen: Comfortable, not pale, not jaundiced CVS:HS I +II, regular, no murmurs RESP: Diminished at lung bases GI: BS present and normal, soft, nontender, no palpable organs EXT:No edema ASSESSMENT: 1. A. fib with RVR, heart rate is improved 2. Acute influenza B, recent RSV 3. Severe sepsis secondary to acute left lower lobe pneumonia 4. Acute COPD exacerbation 5. History of PE/DVT 6. Supratherapeutic INR 7. Chronic heart failure with preserved EF Plan: We will wait on cardiology recommendations regarding Cardizem drip Continue on Tamiflu Continue on IV Zosyn for now, will switch to Augmentin from tomorrow Continue on prednisone Code Visit Inpatient E&M: [id number] Subs Hosp L2
[2019-08-08] MEDS: 0.9% Saline Lock 10 ML Syringe IV (13:55)
[2019-08-08 14:30] LABS: Pathologist Review Reviewed
[2019-08-08] MEDS: Magnesium Hydroxide 30 ML UDC PO (16:04)
--- NOTE | 2019-08-08 21:17 | CPS ---
pt states does not want to wear bipap tonight
[2019-08-08] MEDS: busPIRone 15 MG TABLET 7.5 MG PO (21:18)
[2019-08-08] MEDS: Zolpidem Tartrate 5 MG Tablet PO (21:19)
[2019-08-09] VITALS (29 sets, daily range): BP systolic 127–149; BP diastolic 52–98; PULSE 79–106; RESP 14–26; TEMP 36.4–36.6; O2SAT 95–99
[2019-08-09] MEDS: Ipratropium/Albuterol Sulfate 3 ML AMPUL.NEB INHALATION ×2 (03:41→06:40)
[2019-08-09] MEDS: 0.9% Saline Lock 10 ML Syringe IV ×4 (05:15→14:36)
[2019-08-09] MEDS: Sucralfate 1 GM Tablet PO ×4 (05:16→21:21)
[2019-08-09 06:12] LABS: Absolute Lymphocyte Count 0.44 X10^3/uL (0.83-4.51); Basophil# 0.01 X10^3/uL; Basophil% 0.1 % (0-1); Hematocrit 36.7 % (37-47); Hemoglobin 11.2 g/dL (12.0-15.0); Lymphocyte # 0.44 X10^3/ul (4.0); Lymphocyte % 2.2 % (19-41); Mean Corp Hgb Conc 30.5 g/dL (32-36); Mean Corpuscular Hgb 27.5 pg (27.0-32.0); Mean Corpuscular Volume 90.2 fL (81-99); Mean Platelet Vol. 12.7 fl (6.2-12.0); Monocyte# 0.33 X10^3/uL; Monocyte% 1.7 % (0-10); NRBC Flagged by Analyzer 0 % (0-5); Neutrophil # 18.99 X10^3/uL (2.7-7.7); Neutrophil % 95.1 % (47-70); POSITIVE DIFFERENTIAL YES; Platelet Count 193 K/mm3 (150-450); RBC Distribution Width CV 17.4 % (11.6-14.6); RBC Distribution Width SD 58.8 fl (35.1-43.9); Red Blood Count 4.07 M/mm3 (4.2-5.4)
[2019-08-09 06:20] LABS: Differential Indicated SCAN CRITERIA MET
[2019-08-09 06:30] LABS: International Normalized Ratio 2.8; Prothrombin Time (Protime)PT. 29.3 SECONDS (11.7-14.9)
[2019-08-09 06:32] LABS: ALB/GLOB Ratio 0.7 RATIO (0.9-2.4); AST(SGOT) 20 U/L (15-37); Alanine Aminotransfer ALT/SGPT 42 U/L (13-56); Albumin, Serum 2.4 g/dL (3.2-5.0); Alkaline Phosphatase 68 U/L (45-117); Anion Gap 4 (5-15); BUN 27 mg/dL (7-18); BUN/Creat Ratio 42.3 RATIO (10-20); Calcium,Total 8.2 mg/dL (8.5-10.1); Chloride 103 mmol/L (98-107); Creatinine, Serum 0.64 mg/dL (0.55-1.02); EST Glomerular Filtration Rate 96 mL/min (>60); Est Glom Filt Rate - Afr Amer 117 mL/min (>60); Estimated Creatinine Clearance 47.27 ml/min; Globulin 3.6 g/dL (2.2-4.2); Glucose 123 mg/dL (74-106); Potassium 3.9 mmol/L (3.5-5.1); Sodium Level 143 mmol/L (136-145)
[2019-08-09 06:42] LABS: Differential Comment SCANNED
[2019-08-09 06:52] LABS: Digoxin Level 1.36 ng/mL (0.80-2.00)
[2019-08-09] MEDS: Magnesium Hydroxide 30 ML UDC PO (07:59)
[2019-08-09] MEDS: Acetaminophen 325 MG Tablet 650 MG PO (07:59)
[2019-08-09] MEDS: Polyethylene Glycol 3350 17 GM PACKET PO (08:04)
--- NOTE | 2019-08-09 08:51 | PN.CARD_ITS ---
Subjectve: The patient is awake and alert this morning. She denies chest pain or ongoing palpitations. She still has a cough-nonproductive. Objective: Vital Signs Temp Pulse Resp BP Pulse Ox 97.8 F 95 24 H 140/75 H 99 08/09/19 05:00 08/09/19 08:15 08/09/19 08:15 08/09/19 08:15 08/09/19 08:15 Oxygen Flow Rate (L/min) 2 Oxygen Delivery Method Nasal Cannula Weight: 175 lb 11.335 oz Body Mass Index (BMI) 27.5 Intake and Output for Last 24 Hours 08/07/19 08/08/19 08/09/19 23:59 23:59 23:59 Intake Total 1490.92 / 1771.80 1379.82 / 1634.82 825.25 / 825.25 Output Total 300 / 300 750 / 850 300 / 300 Balance 1190.92 / 1471.80 629.82 / 784.82 525.25 / 525.25 General: Awake, Alert, Oriented x 3, Cooperative, No Acute Distress HEENT: Atraumatic, Normocephalic, PERRL, EOMI, Sclera Non Icteric Oral: Moist Mucosa Neck: Supple, Good ROM, No JVD Lungs: Rhonchi Cardiovascular: Irregular Rhythm, Normal S1, Normal S2 Abdomen: Bowel Sounds Present, Soft, Non Tender Extremities: No edema Psych/Mental Status: Appropriate 08/09/19 05:55: PT 29.3 H, INR 2.8 08/09/19 05:55: WBC 20.0 H, RBC 4.07 L, Hgb 11.2 L, Hct 36.7 L, MCV 90.2, MCH 27.5, MCHC 30.5 L, Plt Count 193, MPV 12.7 H, Immature Gran % (Auto) 0.900, Neut % (Auto) 95.1 H, Lymph % (Auto) 2.2 L, [place] % (Auto) 1.7, Eos % (Auto) 0.0, Baso % (Auto) 0.1, Absolute Neuts (auto) 19.0 H, Nucleated RBC % 0 08/09/19 05:55: Sodium 143, Potassium 3.9, Chloride 103, Carbon Dioxide 36.0 H, Anion Gap 4 L, BUN 27 H, Creatinine 0.64, Est GFR (MDRD) Af Amer 117, Est GFR (MDRD) Non-Af 96, BUN/Creatinine Ratio 42.3 H, Glucose 123 H, Calcium 8.2 L, Total Bilirubin 0.80 08/09/19 05:55: Digoxin 1.36 Rhythm: Atrial fibrillation Medical Necessity - Tobacco Use Smoking Status: Former smoker Tobacco Use: Cigarettes Assessment/Plan 1. Atrial fibrillation with rapid ventricular response The patient continues with atrial fibrillation with rapid ventricular response. She has had persistent atrial fibrillation. She has been on rate control therapy and anticoagulant therapy. Her ventricular rate may be exacerbated by her underlying noncardiac issues including her pulmonary disease process. At the moment she will continue adjustment of medications and attempt to control her rate as best as possible and avoid significant hypotension. She will continue medical therapy with her oral digoxin. An attempt will be made to wean her IV diltiazem times and off and converted back to oral diltiazem. 2. Chronic diastolic mediated CHF The moment she does not appear to be in overt acute CHF as she has had in the past. She will continue to be followed as deemed appropriate. Depending upon her course she may need over time adjustment of medications including being placed back on diuretic therapy. 3. Hyperlipidemia She will continue lipid-lowering therapy as deemed appropriate. 4. Hypertension At the moment her blood pressure is low. Thus her medications will be adjusted in attempt to avoid significantly low pressures. At the same time her volume status will have to be monitored as to whether or not she may need some additional volume. 5. COPD She has a history of COPD. She has had significant underlying pulmonary disease and has been evaluated by pulmonology in the past. Depending upon her course she may need additional input by pulmonology. 6. Pulmonary hypertension Her most recent estimate of her right-sided pressures are based on her aforementioned transthoracic echocardiogram. 7. 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 8. Influenza A/pneumonia She is receiving antiviral and antibiotic therapy. Depending upon her pulmonary course she may need additional pulmonary input. Comment: The patient's case has been previously discussed and reviewed with the patient. This note was generated using a voice recognition system and there may be incorrect words, spelling or punctuation that were not noted when reviewing the office note prior to saving.
[2019-08-09] MEDS: Cyanocobalamin 500 MCG Tablet PO (09:06)
[2019-08-09] MEDS: Senna Tablet 1 TABLET PO ×2 (09:06→21:21)
[2019-08-09] MEDS: Ferrous Sulfate 325 MG Tablet PO (09:06)
[2019-08-09] MEDS: Digoxin 250 MCG Tablet PO (09:06)
[2019-08-09] MEDS: Citalopram 40 MG TABLET PO (09:06)
[2019-08-09] MEDS: Famotidine 20 MG Tablet PO (09:06)
[2019-08-09] MEDS: Multivitamin (Healthy Eyes) Capsule 1 CAP PO ×2 (09:06→21:21)
[2019-08-09] MEDS: Pantoprazole Sodium 20 MG Tablet PO (09:06)
[2019-08-09] MEDS: Furosemide 40 MG Tablet PO (09:06)
[2019-08-09] MEDS: guaiFENesin 1,200 MG Tablet 1200 MG PO ×2 (09:06→21:21)
[2019-08-09] MEDS: dilTIAZem CD 120 MG Capsule PO ×2 (09:06→21:21)
[2019-08-09] MEDS: Oseltamivir Phosphate 30 MG Capsule PO ×2 (09:06→21:21)
[2019-08-09 10:27] LABS: Vancomycin, Trough Level 2.1 ug/mL (5.0-15.0)
[2019-08-09] MEDS: Furosemide 20 MG/2 ML VIAL IV (10:36)
--- NOTE | 2019-08-09 10:39 | CASEMGMT ---
YAO called Stacy at [facility] and let her know patient may return tomorrow. Green sheet on chart. Plan: d/c back to [place] when ready. Regla VIZCARRA MSW
[2019-08-09] MEDS: Ipratropium 0.5 MG/2.5 ML SOLUTION INHALATION ×3 (10:44→19:36)
--- NOTE | 2019-08-09 10:45 | CASEMGMT ---
YAO spoke with patient to see if her daughter will be transporting her back to [place] when she is ready. She asked SW to check with [facility] to see if they could pick her up. YAO called [place] and the calciner operator will check and get back with YAO. Regla VIZCARRA MSW
--- NOTE | 2019-08-09 12:42 | PN_ITS ---
<Kris Pollard - Last Filed: 08/09/19 12:42> Patient Problems: Active and Suspected Problems (Last Reviewed 08/06/19 @ 00:49 by Paulo Mota MD) Pneumonia (Acute) Sepsis (Acute) Severe sepsis (Acute) Hospital acquired PNA (Acute) Reason for Visit: SOB Subjective: SOB at rest resolved. Ongoing SOB with exertion. Pulse rate improved. Ongoing productive cough, No fever/chills. Mild LE edema. Vitals/I&O's: Vital Signs Temp Pulse Resp BP Pulse Ox 97.8 F 83 20 H 144/85 H 96 08/09/19 10:13 08/09/19 11:00 08/09/19 10:44 08/09/19 10:13 08/09/19 10:13 Oxygen Flow Rate (L/min) 2 Oxygen Delivery Method Nasal Cannula Weight: 175 lb 11.335 oz Body Mass Index (BMI) 27.5 Intake and Output for Last 24 Hours 08/07/19 08/08/19 08/09/19 23:59 23:59 23:59 Intake Total 1490.92 / 1771.80 1379.82 / 1634.82 1355.25 / 1355.25 Output Total 300 / 300 750 / 850 600 / 600 Balance 1190.92 / 1471.80 629.82 / 784.82 755.25 / 755.25 General: Alert, Oriented x3, Cooperative HEENT: Atraumatic, PERRLA, EOMI, Normocephalic Neck: Supple, No JVD, Negative Carotid Bruits Lungs: Diminished, Rhonchi Cardiovascular: No murmurs, Irregular Rate Abdomen: Bowel Sounds Present, Soft, Non Tender Extremities: Capillary Refill Less than 3 Seconds, Edema - trace pitting edema Skin: No rashes, No breakdown Musculoskeletal: No Tenderness to Palpation of Joints or Extremities Neurological: Cranial nerves II-XII grossly intact Psych/Mental Status: Normal Affect, Appropriate, Alert and oriented to time, place, person, mood and affect Microbiology Past 72 Hours 08/05/19 19:55 Blood Culture (Wb) - Left Forearm Blood Culture - Preliminary No growth in 48 hours. 08/05/19 19:23 Blood Culture (Wb) - Anticubital Left Blood Culture - Preliminary No growth in 48 hours. Laboratory Results 08/08/19 05:30: Diff Path Review Reviewed 08/09/19 05:55: PT 29.3 H, INR 2.8 08/09/19 05:55: WBC 20.0 H, RBC 4.07 L, Hgb 11.2 L, Hct 36.7 L, MCV 90.2, MCH 27.5, MCHC 30.5 L, RDW Std Deviation 58.8 H, RDW Coeff of Laura 17.4 H, Plt Count 193, MPV 12.7 H, Immature Gran % (Auto) 0.900, Neut % (Auto) 95.1 H, Lymph % (Auto) 2.2 L, Cavalier % (Auto) 1.7, Eos % (Auto) 0.0, Baso % (Auto) 0.1, Absolute Neuts (auto) 19.0 H, Absolute Lymphs (auto) 0.44 L, Nucleated RBC % 0, Differential Comment SCANNED 08/09/19 05:55: Sodium 143, Potassium 3.9, Chloride 103, Carbon Dioxide 36.0 H, Anion Gap 4 L, BUN 27 H, Creatinine 0.64, Estim Creat Clear Calc 47.27, Est GFR (MDRD) Af Amer 117, Est GFR (MDRD) Non-Af 96, BUN/Creatinine Ratio 42.3 H, Glucose 123 H, Calcium 8.2 L, Total Bilirubin 0.80, AST 20, ALT 42, Alkaline Phosphatase 68, Total Protein 6.0 L, Albumin 2.4 L, Globulin 3.6, Albumin/Globulin Ratio 0.7 L 08/09/19 05:55: Digoxin 1.36 08/09/19 09:18: Vancomycin Trough 2.1 L Current Medications Acetaminophen (Tylenol) 650 mg PO Q6H PRN PRN PRN Reason: Pain Score 1-3/Temp > 100.7 F Last Admin: 08/09/19 07:59 Dose: 650 mg Documented by: Benzonatate (Tessalon Perle) 200 mg PO TID PRN PRN PRN Reason: COUGH Last Admin: 08/06/19 21:13 Dose: 200 mg Documented by: Buspirone HCl (Buspar) 7.5 mg PO QHS [facility] Last Admin: 08/08/19 21:18 Dose: 7.5 mg Documented by: Citalopram Hydrobromide (Celexa) 40 mg PO DAILY [facility] Last Admin: 08/09/19 09:06 Dose: 40 mg Documented by: Cyanocobalamin (Vitamin B12) 500 mcg PO DAILY@0800 [facility] Last Admin: 08/09/19 09:06 Dose: 500 mcg Documented by: Digoxin (Lanoxin) 250 mcg PO DAILY [facility] Last Admin: 08/09/19 09:06 Dose: 250 mcg Documented by: Diltiazem HCl (Cardizem Cd) 120 mg PO Q12 [facility] Last Admin: 08/09/19 09:06 Dose: 120 mg Documented by: Ergocalciferol (Vitamin D) 50,000 unit PO TH [facility] Last Admin: 08/08/19 08:43 Dose: 50,000 unit Documented by: Famotidine (Pepcid) 20 mg PO DAILY [facility] Last Admin: 08/09/19 09:06 Dose: 20 mg Documented by: Ferrous Sulfate (Ferrous Sulfate) 325 mg PO BIDCM [facility] Last Admin: 08/09/19 09:06 Dose: 325 mg Documented by: Furosemide (Lasix) 40 mg PO DAILY [facility] Glucagon () 1 mg IM .X1 PRN PRN Reason: Hypoglycemia Guaifenesin (Mucinex) 1,200 mg PO BID [facility] Last Admin: 08/09/19 09:06 Dose: 1,200 mg Documented by: Piperacillin Sod/Tazobactam (Sod 3.375 gm/ Sodium Chloride) 50 mls @ 12.5 mls/hr IV Q8 [facility] Last Infusion: 08/09/19 09:17 Dose: Infused Documented by: Sodium Chloride () 250 mls @ 15 mls/hr IV .[id number] PRN PRN Reason: Saline Flush Last Infusion: 08/09/19 10:24 Dose: 0 mls/hr Documented by: Sodium Chloride () 250 mls @ 15 mls/hr IV .[id number] PRN PRN Reason: Additional IVPB Infusion Dextrose (Dextrose 10%-Water) 250 mls @ 999 mls/hr IV .Q16M PRN; Protocol PRN Reason: HYPOGLYCEMIA Diltiazem HCl 125 mg/ Dextrose 125 mls @ 10 mls/hr IV .[id number] [facility]; Protocol Last Titration: 08/09/19 10:12 Dose: Infused Documented by: Ipratropium [place] (Atrovent) 0.5 mg INHALATION Q4H.RT [facility] Last Admin: 08/09/19 10:44 Dose: 0.5 mg Documented by: Magnesium Hydroxide (Milk Of Magnesia) 30 ml PO DAILY PRN PRN PRN Reason: Constipation Last Admin: 08/09/19 07:59 Dose: 30 ml Documented by: Methylprednisolone (Solu-Medrol) 40 mg IV Q8 [facility] Last Admin: 08/09/19 05:15 Dose: 40 mg Documented by: Multivitamins/Minerals (Healthy Eyes) 1 capsule PO BID [facility] Last Admin: 08/09/19 09:06 Dose: 1 capsule Documented by: Nitroglycerin (Nitrostat) 0.4 mg SUBLINGUAL Q5M PRN PRN Reason: CARDIAC/CHEST PAIN Ondansetron HCl (Zofran) 4 mg IV Q6H PRN PRN PRN Reason: NAUSEA/VOMITING Last Admin: 08/06/19 14:20 Dose: 4 mg Documented by: Oseltamivir Phosphate (Tamiflu) 30 mg PO BID [facility] Stop: 08/10/19 10:01 Last Admin: 08/09/19 09:06 Dose: 30 mg Documented by: Pantoprazole Sodium (Protonix) 20 mg PO DAILY [facility] Last Admin: 08/09/19 09:06 Dose: 20 mg Documented by: Polyethylene Glycol (Miralax) 17 gm PO DAILY [facility] Last Admin: 08/09/19 08:04 Dose: 17 gm Documented by: Senna (Senokot) 1 tablet PO BID [facility] Last Admin: 08/09/19 09:06 Dose: 1 tablet Documented by: Sodium Chloride () 10 - 40 ml IV UD PRN PRN Reason: SALINE FLUSH Last Admin: 08/09/19 10:36 Dose: 10 ml Documented by: Sucralfate (Carafate) 1 gm PO 1HR_ACHS [facility] Last Admin: 08/09/19 10:12 Dose: 1 gm Documented by: Zolpidem Tartrate (Ambien (Generic)) 5 mg PO QHS PRN PRN PRN Reason: INSOMNIA Last Admin: 08/08/19 21:19 Dose: 5 mg Documented by: STROKE Vital Signs/Narrative: Vital Signs Temp Pulse Resp BP Pulse Ox 08/09/19 11:00 83 08/09/19 10:44 88 20 H 08/09/19 10:13 97.8 F 87 16 144/85 H 96 08/09/19 10:00 83 18 137/80 H 97 08/09/19 09:45 82 17 130/92 H 97 08/09/19 09:30 80 14 138/80 H 98 08/09/19 09:15 97.6 F L 81 21 H 140/96 H 95 08/09/19 09:00 90 23 H 149/95 H 98 08/09/19 08:45 96 18 136/52 H 97 Medical Necessity - Tobacco Use Smoking Status: Former smoker Tobacco Use: Cigarettes Assessment/Plan All Active Problems (Last Reviewed 08/06/19 @ 00:49 by Paulo Mota MD) Influenzal bronchopneumonia (Acute) Leukocytosis (Acute) Lactic acidosis (Acute) Pneumonia (Acute) Sepsis (Acute) Severe sepsis (Acute) Hospital acquired PNA (Acute) 1. Afib RVR - rate now stable. off IV cardizem. Continue current therapy. Albuterol stopped. Continue ipratropium 2. Acute flu B, recent RSV - continue tamiflu, supportive care. 3. Acute sepsis 2/ LLL pna - MRSA neg. Continue zosyn. IV lasix x1. Trend CO2. D#5 of abx. Plan for 7-10 day course. Blood cxs neg. Urine ag neg. Continue IS/PEP therapy. 4. COPD exacerbation 2/ #2/3 - continue aerosols, continue solumedrol. Prednisone taper at DC. 5. Prior PE/DVT - warfarin DVT ppx: warfarin (currently held for high INR) DC planning: home tomorrow if heart rate remains stable. This patient was seen by Kris Pollard PA-C under the supervision of Doctor Santos. <Magalis Santos - Last Filed: 08/09/19 13:07> Vitals/I&O's: Vital Signs Temp Pulse Resp BP Pulse Ox 97.8 F 83 20 H 144/85 H 96 08/09/19 10:13 08/09/19 11:00 08/09/19 10:44 08/09/19 10:13 08/09/19 10:13 Oxygen Flow Rate (L/min) 2 Oxygen Delivery Method Nasal Cannula Weight: 79.7 kg Body Mass Index (BMI) 27.5 Intake and Output for Last 24 Hours 08/07/19 08/08/19 08/09/19 23:59 23:59 23:59 Intake Total 1490.92 / 1771.80 1379.82 / 1634.82 1355.25 / 1355.25 Output Total 300 / 300 750 / 850 600 / 600 Balance 1190.92 / 1471.80 629.82 / 784.82 755.25 / 755.25 Microbiology Past 72 Hours 08/05/19 19:55 Blood Culture (Wb) - Left Forearm Blood Culture - Preliminary No growth in 48 hours. 08/05/19 19:23 Blood Culture (Wb) - Anticubital Left Blood Culture - Preliminary No growth in 48 hours. Laboratory Results 08/08/19 05:30: Diff Path Review Reviewed 08/09/19 05:55: PT 29.3 H, INR 2.8 08/09/19 05:55: WBC 20.0 H, RBC 4.07 L, Hgb 11.2 L, Hct 36.7 L, MCV 90.2, MCH 27.5, MCHC 30.5 L, RDW Std Deviation 58.8 H, RDW Coeff of Laura 17.4 H, Plt Count 193, MPV 12.7 H, Immature Gran % (Auto) 0.900, Neut % (Auto) 95.1 H, Lymph % (Auto) 2.2 L, [place]alier % (Auto) 1.7, Eos % (Auto) 0.0, Baso % (Auto) 0.1, Absolute Neuts (auto) 19.0 H, Absolute Lymphs (auto) 0.44 L, Nucleated RBC % 0, Differential Comment SCANNED 08/09/19 05:55: Sodium 143, Potassium 3.9, Chloride 103, Carbon Dioxide 36.0 H, Anion Gap 4 L, BUN 27 H, Creatinine 0.64, Estim Creat Clear Calc 47.27, Est GFR (MDRD) Af Amer 117, Est GFR (MDRD) Non-Af 96, BUN/Creatinine Ratio 42.3 H, Glucose 123 H, Calcium 8.2 L, Total Bilirubin 0.80, AST 20, ALT 42, Alkaline Phosphatase 68, Total Protein 6.0 L, Albumin 2.4 L, Globulin 3.6, Albumin/Globulin Ratio 0.7 L 08/09/19 05:55: Digoxin 1.36 08/09/19 09:18: Vancomycin Trough 2.1 L Current Medications Acetaminophen (Tylenol) 650 mg PO Q6H PRN PRN PRN Reason: Pain Score 1-3/Temp > 100.7 F Last Admin: 08/09/19 07:59 Dose: 650 mg Documented by: Amoxicillin/Clavulanate Potassium (Augmentin Tablet) 875 mg PO BID [facility] Benzonatate (Tessalon Perle) 200 mg PO TID PRN PRN PRN Reason: COUGH Last Admin: 08/06/19 21:13 Dose: 200 mg Documented by: Buspirone HCl (Buspar) 7.5 mg PO QHS [facility] Last Admin: 08/08/19 21:18 Dose: 7.5 mg Documented by: Citalopram Hydrobromide (Celexa) 40 mg PO DAILY [facility] Last Admin: 08/09/19 09:06 Dose: 40 mg Documented by: Cyanocobalamin (Vitamin B12) 500 mcg PO DAILY@0800 [facility] Last Admin: 08/09/19 09:06 Dose: 500 mcg Documented by: Digoxin (Lanoxin) 250 mcg PO DAILY [facility] Last Admin: 08/09/19 09:06 Dose: 250 mcg Documented by: Diltiazem HCl (Cardizem Cd) 120 mg PO Q12 [facility] Last Admin: 08/09/19 09:06 Dose: 120 mg Documented by: Ergocalciferol (Vitamin D) 50,000 unit PO TH [facility] Last Admin: 08/08/19 08:43 Dose: 50,000 unit Documented by: Famotidine (Pepcid) 20 mg PO DAILY [facility] Last Admin: 08/09/19 09:06 Dose: 20 mg Documented by: [facility] Last Admin: 08/09/19 09:06 Dose: 325 mg Documented by: Furosemide (Lasix) 40 mg PO DAILY [facility] Glucagon () 1 mg IM .X1 PRN PRN Reason: Hypoglycemia Guaifenesin (Mucinex) 1,200 mg PO BID [facility] Last Admin: 08/09/19 09:06 Dose: 1,200 mg Documented by: Sodium Chloride () 250 mls @ 15 mls/hr IV .[id number] PRN PRN Reason: Saline Flush Last Infusion: 08/09/19 10:24 Dose: 0 mls/hr Documented by: Sodium Chloride () 250 mls @ 15 mls/hr IV .[id number] PRN PRN Reason: Additional IVPB Infusion Dextrose (Dextrose 10%-Water) 250 mls @ 999 mls/hr IV .Q16M PRN; Protocol PRN Reason: HYPOGLYCEMIA Diltiazem HCl 125 mg/ Dextrose 125 mls @ 10 mls/hr IV .[id number] [facility]; Protocol Last Titration: 08/09/19 10:12 Dose: Infused Documented by: Ipratropium [place] (Atrovent) 0.5 mg INHALATION Q4H.RT [facility] Last Admin: 08/09/19 10:44 Dose: 0.5 mg Documented by: Magnesium Hydroxide (Milk Of Magnesia) 30 ml PO DAILY PRN PRN PRN Reason: Constipation Last Admin: 08/09/19 07:59 Dose: 30 ml Documented by: Methylprednisolone (Solu-Medrol) 40 mg IV Q8 [facility] Last Admin: 08/09/19 05:15 Dose: 40 mg Documented by: Multivitamins/Minerals (Healthy Eyes) 1 capsule PO BID [facility] Last Admin: 08/09/19 09:06 Dose: 1 capsule Documented by: Nitroglycerin (Nitrostat) 0.4 mg SUBLINGUAL Q5M PRN PRN Reason: CARDIAC/CHEST PAIN Ondansetron HCl (Zofran) 4 mg IV Q6H PRN PRN PRN Reason: NAUSEA/VOMITING Last Admin: 08/06/19 14:20 Dose: 4 mg Documented by: Oseltamivir Phosphate (Tamiflu) 30 mg PO BID [facility] Stop: 08/10/19 10:01 Last Admin: 08/09/19 09:06 Dose: 30 mg Documented by: Pantoprazole Sodium (Protonix) 20 mg PO DAILY [facility] Last Admin: 08/09/19 09:06 Dose: 20 mg Documented by: Polyethylene Glycol (Miralax) 17 gm PO DAILY [facility] Last Admin: 08/09/19 08:04 Dose: 17 gm Documented by: Senna (Senokot) 1 tablet PO BID [facility] Last Admin: 08/09/19 09:06 Dose: 1 tablet Documented by: Sodium Chloride () 10 - 40 ml IV UD PRN PRN Reason: SALINE FLUSH Last Admin: 08/09/19 10:36 Dose: 10 ml Documented by: Sucralfate (Carafate) 1 gm PO 1HR_ACHS [facility] Last Admin: 08/09/19 10:12 Dose: 1 gm Documented by: Warfarin Sodium (Coumadin (Pbkc)) 2 mg PO DAILY@1700 [facility] Zolpidem Tartrate (Ambien (Generic)) 5 mg PO QHS PRN PRN PRN Reason: INSOMNIA Last Admin: 08/08/19 21:19 Dose: 5 mg Documented by: STROKE Vital Signs/Narrative: Vital Signs Temp Pulse Resp BP Pulse Ox 08/09/19 11:00 83 08/09/19 10:44 88 20 H 08/09/19 10:13 97.8 F 87 16 144/85 H 96 08/09/19 10:00 83 18 137/80 H 97 08/09/19 09:45 82 17 130/92 H 97 08/09/19 09:30 80 14 138/80 H 98 08/09/19 09:15 97.6 F L 81 21 H 140/96 H 95 08/09/19 09:00 90 23 H 149/95 H 98 Assessment/Plan This patient was seen in conjunction with JODI Huitron. I have independently interviewed and examined the patient and reviewed pertinent historical, laboratory, and other data. Please refer to JODI Huitron note for his patient's presentation, findings, and recommendations. I have reviewed and his note and concur with his documentation Patient was seen and examined. Complains of constipation. States she feels improved. Cardizem drip switched off; started on po cardizem. Physical Exam: Gen: Comfortable, not pale, not jaundiced, remains on 2L oxygen CVS:HS I +II, regular, no murmurs RESP: Diminished at lung bases, wheezes++ GI: BS present and normal, soft, nontender, no palpable organs EXT:Trace bilateral edema INR 2.8 ASSESSMENT: 1. A. fib with RVR, heart rate is improved 2. Acute influenza B, recent RSV 3. Severe sepsis secondary to acute left lower lobe pneumonia 4. Acute COPD exacerbation 5. History of PE/DVT 6. Supratherapeutic INR 7. Chronic heart failure with preserved EF Plan: Continue on po cardizem per cardiology Continue on Tamiflu, prednisone Switch to Augmentin Warfarin 2mg daily INR, CBCD, BMP in am Code Visit Inpatient E&M: 07720 Subs Hosp L2
[2019-08-09] MEDS: Amox/Clavulanate 875 MG Tablet PO ×2 (14:36→21:20)
[2019-08-09] MEDS: busPIRone 15 MG TABLET 7.5 MG PO (21:20)
[2019-08-09] MEDS: Zolpidem Tartrate 5 MG Tablet PO (21:26)
[2019-08-10] VITALS (11 sets, daily range): BP systolic 132–149; BP diastolic 78–80; PULSE 63–179; RESP 18; TEMP 36.6; O2SAT 90–99
[2019-08-10] MEDS: 0.9% Saline Lock 10 ML Syringe IV ×2 (06:04→08:35)
[2019-08-10] MEDS: Sucralfate 1 GM Tablet PO ×2 (06:04→13:00)
[2019-08-10 06:40] LABS: Absolute Lymphocyte Count 0.48 X10^3/uL (0.83-4.51); Absolute Neutrophil Count 12.1 X10^3/uL (2.0-7.7); Basophil# 0.01 X10^3/uL; Basophil% 0.1 % (0-1); Hematocrit 38.2 % (37-47); Hemoglobin 11.5 g/dL (12.0-15.0); Lymphocyte # 0.48 X10^3/ul (4.0); Lymphocyte % 3.7 % (19-41); Mean Corp Hgb Conc 30.1 g/dL (32-36); Mean Corpuscular Hgb 27.2 pg (27.0-32.0); Mean Corpuscular Volume 90.3 fL (81-99); Mean Platelet Vol. 12.3 fl (6.2-12.0); Monocyte# 0.33 X10^3/uL; Monocyte% 2.5 % (0-10); NRBC Flagged by Analyzer 0 % (0-5); Neutrophil # 12.05 X10^3/uL (2.7-7.7); Neutrophil % 92.9 % (47-70); POSITIVE DIFFERENTIAL YES; Platelet Count 194 K/mm3 (150-450); RBC Distribution Width CV 17.6 % (11.6-14.6); RBC Distribution Width SD 58.4 fl (35.1-43.9); Red Blood Count 4.23 M/mm3 (4.2-5.4)
[2019-08-10 06:41] LABS: Differential Indicated SCAN CRITERIA MET
[2019-08-10 06:43] LABS: International Normalized Ratio 1.7; Prothrombin Time (Protime)PT. 20.1 SECONDS (11.7-14.9)
[2019-08-10 07:13] LABS: Anion Gap 1 (5-15); BUN 28 mg/dL (7-18); BUN/Creat Ratio 44.6 RATIO (10-20); Calcium,Total 8.5 mg/dL (8.5-10.1); Chloride 104 mmol/L (98-107); Creatinine, Serum 0.63 mg/dL (0.55-1.02); EST Glomerular Filtration Rate 98 mL/min (>60); Est Glom Filt Rate - Afr Amer 119 mL/min (>60); Estimated Creatinine Clearance 47.27 ml/min; Glucose 123 mg/dL (74-106); Potassium 4.1 mmol/L (3.5-5.1); Sodium Level 142 mmol/L (136-145)
[2019-08-10] MEDS: Ipratropium 0.5 MG/2.5 ML SOLUTION INHALATION ×3 (07:13→14:12)
[2019-08-10 07:20] LABS: Anisocytosis 1+; Differential Comment SCANNED; Ovalocyte RARE; Platelet Estimate ADEQUATE (ADEQ)
[2019-08-10] MEDS: Cyanocobalamin 500 MCG Tablet PO (09:27)
[2019-08-10] MEDS: guaiFENesin 1,200 MG Tablet 1200 MG PO (09:28)
[2019-08-10] MEDS: Famotidine 20 MG Tablet PO (09:28)
[2019-08-10] MEDS: Oseltamivir Phosphate 30 MG Capsule PO (09:28)
[2019-08-10] MEDS: Pantoprazole Sodium 20 MG Tablet PO (09:28)
[2019-08-10] MEDS: Senna Tablet 1 TABLET PO (09:28)
[2019-08-10] MEDS: Digoxin 250 MCG Tablet PO (09:29)
[2019-08-10] MEDS: Amox/Clavulanate 875 MG Tablet PO (09:29)
[2019-08-10] MEDS: dilTIAZem CD 120 MG Capsule PO (09:29)
[2019-08-10] MEDS: Multivitamin (Healthy Eyes) Capsule 1 CAP PO (09:29)
[2019-08-10] MEDS: Citalopram 40 MG TABLET PO (09:30)
[2019-08-10] MEDS: Furosemide 40 MG Tablet PO (09:30)
--- NOTE | 2019-08-10 11:28 | TREXTCA.CO_ITS ---
- Diet 08/06/19 00:41 Diet: Regular Diet Food consistency:: Regular Liquid Consistency:: Regular/Thin - Routine Orders/Code Status Suppository Type: Dulcolax 10mg Suppository Frequency: Daily PRN O2 Frequency: Continuous Keep PO Greater than or Equal to (%): 90 Routine Lab Work: CBC - 5 days, BMP - 5 days, INR - 2 days Code Status: DNRCC-A - Therapies Physical Therapy: Eval and Treat Occupational Therapy: Eval and Treat - Allergies/Procedures Done in Hospital Allergies/Adverse Reactions: Allergies amlodipine besylate [From [facility]] Adverse Reaction (Verified 08/05/19 20:21) ANKLE AND LEG EDEMA RESOLVED OFF MED-PER PCP PAPERWORK codeine Adverse Reaction (Verified 08/05/19 20:) MENTAL STATUS CHANGE lisinopril Adverse Reaction (Verified 08/05/19 20:) COUGH Procedures: None - Type of Care/Length of Stay Estimated LOS: Convalescent Care Less Than 30 days Type of Care Needed: Skilled Rehab Potential: Fair Prognosis: Fair - Additional Orders/Day of Discharge Day of Discharge: 08/10/19 - Dietary and Speech Recommendations Dietitian Recommendations/Changes: Rec diet change to Cardiac/low sodium when po intake improved. Will continue with ensure pudding bid for increased nutrition if consumed. - Follow Up Care Primary Care Physician: Tor Lucia MD [Primary Care Provider] - Please follow up with your Primary Care Physician in: 1-2 weeks Please Follow Up With: Tor Jaffe MD When: as directed Please Follow Up With: Jin Cates DO When: 3-4 weeks
[2019-08-10] MEDS: Polyethylene Glycol 3350 17 GM PACKET PO (13:00)
--- NOTE | 2019-08-10 13:46 | NURSING ---
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 Report called to [facility] nurse Sowmya at [phone].
--- NOTE | 2019-08-10 14:20 | PCM.DC.SUM ---
<Kris Pollard - Last Filed: 08/10/19 14:20> Discharge Date and Diagnosis Date of Admission: 08/05/19 Date of Discharge: 08/10/19 - Primary Discharge Diagnosis Active and Suspected Problems (Last Reviewed 08/06/19 @ 00:49 by Paulo Mota MD) Acute sepsis secondary to pneumonia Due to influenza B Atrial fibrillation with rapid ventricular response Acute COPD exacerbation secondary to above History of PE, DVT History of chronic diastolic congestive heart failure - Secondary Discharge Diagnosis Chronic Problems (Last Reviewed 08/06/19 @ 00:49 by Paulo Mota MD) Diastolic dysfunction (Chronic) Chronic hypoxemic respiratory failure (Chronic) Chronic anticoagulation (Chronic) Former tobacco use (Chronic) Depression (Chronic) Pulmonary hypertension (Chronic) History of recurrent deep vein thrombosis (DVT) (Chronic) History of pulmonary embolism (Chronic) History of cardioversion (Chronic) January of 2018.....HR not controlled with exertion while in AF on Beta donna and cardizem. Converted to NSR with cardioversion Paroxysmal atrial fibrillation (Chronic) DCCV on 01/31/2018; HTN (hypertension) (Chronic) Iron deficiency anemia (Chronic) Chronic diastolic CHF (congestive heart failure) (Chronic) Acute exacerbation of CHF (congestive heart failure) (Chronic) Atrial fibrillation with RVR (Chronic) Dyslipidemia (Chronic) COPD (chronic obstructive pulmonary disease) (Chronic) Hospital Course and Treatment Imaging Results: RAD/Chest 1 View (Portable) IMPRESSION: Left lower lung zone infiltrate. RAD/Chest 1 View (Portable) IMPRESSION: Left lower lobe enlarging infiltrate compatible with worsening pneumonia. Consultations: Cardiology-[facility] Operations: None Procedures: None Summary of Care Provided: Hospital course: The patient is a 73 year old F with past medical history of COPD, diastolic congestive heart failure, hypertension, who presented to the emergency room with increased cough and shortness of breath [facility] She also complained of nausea, vomiting, chills, Reiger's, and 10 pound weight loss. In the emergency room she was found to be in atrial fibrillation with RVR and was given Cardizem bolus. She had significant leukocytosis and evidence of pneumonia. Her influenza screen came back positive for flu B. She had recently had RSV. She had fever, tachycardia, tachypnea, initially treated with BiPAP, and antibiotic therapy with Vanco and Zosyn. MRSA screen was negative so vancomycin was discontinued. She improved steadily on Zosyn, breathing treatments, steroids. Cardiology was consulted given ongoing atrial fibrillation. She remained on a Cardizem drip before being transitioned to oral Cardizem and digoxin. Her albuterol was also decreased she was transitioned to only ipratropium. She continued to improve and remained stable at her baseline oxygen of 2 L/min via nasal cannula. She was discharged back to residential in stable condition. She will need to follow-up with her PCP in 1 to 2 weeks, she should follow-up with pulmonology in 3 to 4 weeks, and with cardiology as directed. She was transitioned to Augmentin and will complete a total of 10 days therapy. Her urine antigens were negative and her blood cultures were negative. This patient was seen by Kris Pollard PA-C under the supervision of Doctor Santos. [] - Physical Exam Vitals/I&O's: Vital Signs Temp Pulse Resp BP Pulse Ox 97.9 F 83 18 149/80 H 96 08/10/19 13:55 08/10/19 13:55 08/10/19 13:55 08/10/19 13:55 08/10/19 13:55 Oxygen Flow Rate (L/min) [ 2 AMBULATION with Oxygen] Oxygen Flow Rate (L/min) 2 Oxygen Delivery Method Nasal Cannula Weight: 175 lb 11.335 oz Body Mass Index (BMI) 27.5 Intake and Output for Last 24 Hours 08/08/19 08/09/19 08/10/19 23:59 23:59 23:59 Intake Total 1379.82 / 1634.82 1855.25 / 2095.25 404 / 404 Output Total 750 / 850 600 / 800 200 / 200 Balance 629.82 / 784.82 1255.25 / 1295.25 204 / 204 General: Alert, Oriented x3, Cooperative HEENT: Atraumatic, PERRLA, EOMI, Normocephalic Neck: Supple, No JVD, Negative Carotid Bruits Lungs: Normal air movement, Rales Cardiovascular: No murmurs, - - Irregularly irregular Abdomen: Bowel Sounds Present, Soft, Non Tender Extremities: Capillary Refill Less than 3 Seconds, Edema - Trace edema bilateral lower extremities Skin: No rashes, No breakdown Musculoskeletal: No Tenderness to Palpation of Joints or Extremities Neurological: Cranial nerves II-XII grossly intact Psych/Mental Status: Normal Affect, Appropriate, Alert and oriented to time, place, person, mood and affect Microbiology Past 72 Hours 08/05/19 19:55 Blood Culture (Wb) - Left Forearm Blood Culture - Preliminary No growth in 48 hours. 08/05/19 19:23 Blood Culture (Wb) - Anticubital Left Blood Culture - Preliminary No growth in 48 hours. Laboratory Results 08/10/19 06:00: PT 20.1 H, INR 1.7 08/10/19 06:00: Sodium 142, Potassium 4.1, Chloride 104, Carbon Dioxide 37.0 H, Anion Gap 1 L, BUN 28 H, Creatinine 0.63, Estim Creat Clear Calc 47.27, Est GFR (MDRD) Af Amer 119, Est GFR (MDRD) Non-Af 98, BUN/Creatinine Ratio 44.6 H, Glucose 123 H, Calcium 8.5 08/10/19 06:00: WBC 13.0 H, RBC 4.23, Hgb 11.5 L, Hct 38.2, MCV 90.3, MCH 27.2, MCHC 30.1 L, RDW Std Deviation 58.4 H, RDW Coeff of Laura 17.6 H, Plt Count 194, MPV 12.3 H, Immature Gran % (Auto) 0.800, Neut % (Auto) 92.9 H, Lymph % (Auto) 3.7 L, [place] % (Auto) 2.5, Eos % (Auto) 0.0, Baso % (Auto) 0.1, Absolute Neuts (auto) 12.1 H, Absolute Lymphs (auto) 0.48 L, Nucleated RBC % 0, Differential Comment SCANNED, Platelet Estimate ADEQUATE, Anisocytosis 1+, Ovalocytes RARE Current Medications Acetaminophen (Tylenol) 650 mg PO Q6H PRN PRN PRN Reason: Pain Score 1-3/Temp > 100.7 F Last Admin: 08/09/19 07:59 Dose: 650 mg Documented by: Amoxicillin/Clavulanate Potassium (Augmentin Tablet) 875 mg PO BID CAIO Last Admin: 08/10/19 09:29 Dose: 875 mg Documented by: Benzonatate (Tessalon Perle) 200 mg PO TID PRN PRN PRN Reason: COUGH Last Admin: 08/06/19 21:13 Dose: 200 mg Documented by: Buspirone HCl (Buspar) 7.5 mg PO QHS [facility] Last Admin: 08/09/19 21:20 Dose: 7.5 mg Documented by: Citalopram Hydrobromide (Celexa) 40 mg PO DAILY [facility] Last Admin: 08/10/19 09:30 Dose: 40 mg Documented by: Cyanocobalamin (Vitamin B12) 500 mcg PO DAILY@0800 [facility] Last Admin: 08/10/19 09:27 Dose: 500 mcg Documented by: Digoxin (Lanoxin) 250 mcg PO DAILY [facility] Last Admin: 08/10/19 09:29 Dose: 250 mcg Documented by: Diltiazem HCl (Cardizem Cd) 120 mg PO Q12 [facility] Last Admin: 08/10/19 09:29 Dose: 120 mg Documented by: Ergocalciferol (Vitamin D) 50,000 unit PO TH [facility] Last Admin: 08/08/19 08:43 Dose: 50,000 unit Documented by: Famotidine (Pepcid) 20 mg PO DAILY [facility] Last Admin: 08/10/19 09:28 Dose: 20 mg Documented by: Ferrous Sulfate (Ferrous Sulfate) 325 mg PO BIDCM [facility] Last Admin: 08/10/19 09:27 Dose: Not Given Documented by: Furosemide (Lasix) 40 mg PO DAILY [facility] Last Admin: 08/10/19 09:30 Dose: 40 mg Documented by: Glucagon () 1 mg IM .X1 PRN PRN Reason: Hypoglycemia Guaifenesin (Mucinex) 1,200 mg PO BID [facility] Last Admin: 08/10/19 09:28 Dose: 1,200 mg Documented by: Sodium Chloride () 250 mls @ 15 mls/hr IV .[id number] PRN PRN Reason: Saline Flush Last Infusion: 08/10/19 07:00 Dose: Infused Documented by: Sodium Chloride () 250 mls @ 15 mls/hr IV .[id number] PRN PRN Reason: Additional IVPB Infusion Ipratropium [place] (Atrovent) 0.5 mg INHALATION Q4H.RT [facility] Last Admin: 08/10/19 14:12 Dose: 0.5 mg Documented by: Magnesium Hydroxide (Milk Of Magnesia) 30 ml PO DAILY PRN PRN PRN Reason: Constipation Last Admin: 08/09/19 07:59 Dose: 30 ml Documented by: Methylprednisolone (Solu-Medrol) 40 mg IV Q8 [facility] Last Admin: 08/10/19 06:04 Dose: 40 mg Documented by: Multivitamins/Minerals (Healthy Eyes) 1 capsule PO BID [facility] Last Admin: 08/10/19 09:29 Dose: 1 capsule Documented by: Nitroglycerin (Nitrostat) 0.4 mg SUBLINGUAL Q5M PRN PRN Reason: CARDIAC/CHEST PAIN Ondansetron HCl (Zofran) 4 mg IV Q6H PRN PRN PRN Reason: NAUSEA/VOMITING Last Admin: 08/06/19 14:20 Dose: 4 mg Documented by: Pantoprazole Sodium (Protonix) 20 mg PO DAILY [facility] Last Admin: 08/10/19 09:28 Dose: 20 mg Documented by: Polyethylene Glycol (Miralax) 17 gm PO DAILY [facility] Last Admin: 08/10/19 13:00 Dose: 17 gm Documented by: Senna (Senokot) 1 tablet PO BID [facility] Last Admin: 08/10/19 09:28 Dose: 1 tablet Documented by: Sodium Chloride () 10 - 40 ml IV UD PRN PRN Reason: SALINE FLUSH Last Admin: 08/10/19 08:35 Dose: 20 ml Documented by: Sucralfate (Carafate) 1 gm PO 1HR_ACHS [facility] Last Admin: 08/10/19 13:00 Dose: 1 gm Documented by: Warfarin Sodium (Coumadin (Pbkc)) 5 mg PO TuTh@1700 [facility] Warfarin Sodium (Coumadin (Pbkc)) 3 mg PO SuMoWeFrSa@1700 [facility] Zolpidem Tartrate (Ambien (Generic)) 5 mg PO QHS PRN PRN PRN Reason: INSOMNIA Last Admin: 08/09/19 21:26 Dose: 5 mg Documented by: Discharge Diet: Low fat/ Low Cholesterol, 2000 mg Sodium Diet Discharge Activity: Return to Normal Activity Home Medications: Medications to take at Discharge Ergocalciferol [Vitamin D] 50,000 unit PO TH 07/19/15 Warfarin Sodium 4 mg PO TUTH 03/08/18 Citalopram Hydrobromide [Citalopram HBr] 40 mg PO DAILY 05/23/18 Budesonide 2 ml IH BID 01/17/19 Omeprazole 20 mg PO DAILY 01/17/19 Senna [Senokot] 1 tab PO BID 01/17/19 Sucralfate [Carafate] 1 gm PO Q6H PRN PRN 01/17/19 Vit A/Vit C/Vit E/Zinc/Copper [Preservision Areds Tablet] 1 ea PO BID 01/17/19 Warfarin [Coumadin] 3 mg PO SUMOWEFRSA 01/17/19 Buspirone HCl 7.5 mg PO QHS 05/07/19 Ferrous Sulfate 325 mg PO BIDCM #1 tab 05/09/19 Acetaminophen [Tylenol Tablet] 650 mg PO Q6H PRN PRN 07/12/19 Cyanocobalamin (Vitamin B-12) [Vitamin B-12] 500 mcg PO DAILY@0800 07/12/19 Polyethylene Glycol 3350 17 gm PO DAILY 07/12/19 Benzonatate [Tessalon Perle] 200 mg PO TID PRN PRN #30 cap 07/31/19 Amox/Clavulanate Tablet [Augmentin Tablet] 875 mg PO BID #12 tab 08/10/19 Digoxin [Lanoxin] 250 mcg PO DAILY #60 tab 08/10/19 Diltiazem CD [Cardizem CD] 120 mg PO Q12 #60 cap 08/10/19 Furosemide [Lasix] 40 mg PO DAILY tab 08/10/19 Ipratropium [Atrovent Aerosols] 0.5 mg INHALATION Q4H.RT solution 08/10/19 Magnesium Hydroxide [Milk Of Magnesia] 30 ml PO DAILY PRN PRN udc 08/10/19 Potassium Chloride 20 meq PO DAILY #0 08/10/19 Prednisone 10 mg PO UD #30 tab 08/10/19 Zolpidem Tartrate [Ambien] 5 mg PO QHS PRN PRN 5 Days #5 tab 08/10/19 Following Prescrptions Were Given to Patient: Zolpidem Tartrate [Ambien] 5 mg PO QHS PRN PRN 5 Days #5 tab PRN Reason: Insomnia Prescription Printed Amox/Clavulanate Tablet [Augmentin Tablet] 875 mg PO BID #12 tab Diltiazem CD [Cardizem CD] 120 mg PO Q12 #60 cap Digoxin [Lanoxin] 250 mcg PO DAILY #60 tab Prednisone 10 mg PO UD #30 tab Primary Care Physician: Tor Lucia MD [Primary Care Provider] - Please follow up with your Primary Care Physician in: 1-2 weeks Please Follow Up With: Tor Jaffe MD When: as directed Please Follow Up With: Jin Cates DO When: 3-4 weeks Disposition: Intermediate facility Minutes spent on discharge:: 35 Patient Condition:: Stable Medical Necessity - Tobacco Use Smoking Status: Former smoker Tobacco Use: Cigarettes Meaningful Use Info Meaningful Use Diagnoses (Choose all that apply): None applicable <[facility] - Last Filed: 08/10/19 14:57> Discharge Date and Diagnosis - Secondary Discharge Diagnosis Chronic Problems (Last Reviewed 08/06/19 @ 00:49 by Paulo Mota MD) Diastolic dysfunction (Chronic) Chronic hypoxemic respiratory failure (Chronic) Chronic anticoagulation (Chronic) Former tobacco use (Chronic) Depression (Chronic) Pulmonary hypertension (Chronic) History of recurrent deep vein thrombosis (DVT) (Chronic) History of pulmonary embolism (Chronic) History of cardioversion (Chronic) January of 2018.....HR not controlled with exertion while in AF on Beta donna and cardizem. Converted to NSR with cardioversion Paroxysmal atrial fibrillation (Chronic) DCCV on 01/31/2018; HTN (hypertension) (Chronic) Iron deficiency anemia (Chronic) Chronic diastolic CHF (congestive heart failure) (Chronic) Acute exacerbation of CHF (congestive heart failure) (Chronic) Atrial fibrillation with RVR (Chronic) Dyslipidemia (Chronic) COPD (chronic obstructive pulmonary disease) (Chronic) Hospital Course and Treatment Summary of Care Provided: This patient was seen in conjunction with JODI Huitron. I have independently interviewed and examined the patient and reviewed pertinent historical, laboratory, and other data. Please refer to JODI Huitron note for his patient's presentation, findings, and recommendations. I have reviewed and his note and concur with his documentation. 73-year-old with past medical history of COPD, chronic diastolic CHF, hypertension who comes in with complaints of progressive cough and shortness of breath. Patient was found to have acute influenza B. She was also found to have evidence of pneumonia on chest x-ray. Was managed initially on IV vancomycin and Zosyn. Her MRSA screen was negative. Vancomycin was discontinued. She was continued on Zosyn with improvement. She was managed also on oral steroid. Patient had A. fib with RVR on admission. This was difficult to control on account of hypotension. She was managed briefly on amiodarone drip with no success. Cardiology was consulted, switch to Cardizem drip with improvement in heart rate. Transitioned to oral Cardizem and digoxin. Patient will follow-up with her primary care doctor and pulmonology. She will complete 10 days of antibiotics. Discharged on oral Augmentin. Physical Exam: Gen: Comfortable, not pale, not jaundiced, remains on 2L oxygen CVS:HS I +II, regular, no murmurs RESP: Diminished at lung bases, wheezes++ GI: BS present and normal, soft, nontender, no palpable organs EXT:Trace bilateral edema - Physical Exam Vitals/I&O's: Vital Signs Temp Pulse Resp BP Pulse Ox 97.9 F 83 18 149/80 H 96 08/10/19 13:55 08/10/19 13:55 08/10/19 13:55 08/10/19 13:55 08/10/19 13:55 Oxygen Flow Rate (L/min) [ 2 AMBULATION with Oxygen] Oxygen Flow Rate (L/min) 2 Oxygen Delivery Method Nasal Cannula Weight: 79.7 kg Body Mass Index (BMI) 27.5 Intake and Output for Last 24 Hours 08/08/19 08/09/19 08/10/19 23:59 23:59 23:59 Intake Total 1379.82 / 1634.82 1855.25 / 2095.25 404 / 404 Output Total 750 / 850 600 / 800 200 / 200 Balance 629.82 / 784.82 1255.25 / 1295.25 204 / 204 Microbiology Past 72 Hours 08/05/19 19:55 Blood Culture (Wb) - Left Forearm Blood Culture - Preliminary No growth in 48 hours. 08/05/19 19:23 Blood Culture (Wb) - Anticubital Left Blood Culture - Preliminary No growth in 48 hours. Laboratory Results 08/10/19 06:00: PT 20.1 H, INR 1.7 08/10/19 06:00: Sodium 142, Potassium 4.1, Chloride 104, Carbon Dioxide 37.0 H, Anion Gap 1 L, BUN 28 H, Creatinine 0.63, Estim Creat Clear Calc 47.27, Est GFR (MDRD) Af Amer 119, Est GFR (MDRD) Non-Af 98, BUN/Creatinine Ratio 44.6 H, Glucose 123 H, Calcium 8.5 08/10/19 06:00: WBC 13.0 H, RBC 4.23, Hgb 11.5 L, Hct 38.2, MCV 90.3, MCH 27.2, MCHC 30.1 L, RDW Std Deviation 58.4 H, RDW Coeff of Laura 17.6 H, Plt Count 194, MPV 12.3 H, Immature Gran % (Auto) 0.800, Neut % (Auto) 92.9 H, Lymph % (Auto) 3.7 L, [place] % (Auto) 2.5, Eos % (Auto) 0.0, Baso % (Auto) 0.1, Absolute Neuts (auto) 12.1 H, Absolute Lymphs (auto) 0.48 L, Nucleated RBC % 0, Differential Comment SCANNED, Platelet Estimate ADEQUATE, Anisocytosis 1+, Ovalocytes RARE Code Visit Inpatient E&M: 99926 Disch Hosp
--- NOTE | 2019-08-10 14:23 | NURSING ---
Reviewed and agreed on all charting with Inocencio Snyder RN
== END 2019-08-10 14:26 | disposition skilled nursing facility (03) | DRG 871 ==
LOC: ED 23:37 → PCU 08-06 00:40
PROVIDERS: Internal Medicine Cardiovascular Disease; Physician Assistant; Admitting Provider Hospitalist; Emergency Provider Emergency Medicine; PCP Family Medicine; Referring Provider Hospitalist; Visit Provider Internal Medicine
DX: A41.9 Sepsis, unspecified organism (principal); J10.08 Influenza due to other identified influenza virus with other specified pneumonia; J18.0 Bronchopneumonia, unspecified organism; I50.33 Acute on chronic diastolic (congestive) heart failure; J96.11 Chronic respiratory failure with hypoxia; J44.0 Chronic obstructive pulmonary disease with (acute) lower respiratory infection; J44.1 Chronic obstructive pulmonary disease with (acute) exacerbation; I48.19 Other persistent atrial fibrillation; R65.20 Severe sepsis without septic shock; I11.0 Hypertensive heart disease with heart failure; F32.9 Major depressive disorder, single episode, unspecified; I27.20 Pulmonary hypertension, unspecified; D50.9 Iron deficiency anemia, unspecified; E78.5 Hyperlipidemia, unspecified; Y95 Nosocomial condition; Z66 Do not resuscitate; Z79.01 Long term (current) use of anticoagulants; Z79.899 Other long term (current) drug therapy; Z87.09 Personal history of other diseases of the respiratory system; Z86.718 Personal history of other venous thrombosis and embolism; Z86.711 Personal history of pulmonary embolism; Z87.891 Personal history of nicotine dependence
CPT/HCPCS: 36415; 71045; 80048; 80053; 80162; 80202; 83605; 83735; 83880; 84484; 85025; 85610; 87040; 87449; 87641; 87804; 93005; 94002; 94640; 94667; 94668; 97110; 97116; 97162; 97166; 97530; 97535; 97802; 99251; 99285; J7030; J7040; J7050; A4216; G0463; J1940; J2405; J3490

== ENCOUNTER → 2019-08-14 | Outpatient (CLI) | payer MEDICARE, MEDICAID, SELFPAY ==
[2019-08-14 09:19] VITALS: BMI 27.5
== END | disposition home or self-care (01) ==
LOC: LABSPEC 10:46
PROVIDERS: PCP Family Medicine; Referring Provider Nurse Practitioner Acute Care; Visit Provider Nurse Practitioner Acute Care
DX: J44.9 Chronic obstructive pulmonary disease, unspecified (principal)
CPT/HCPCS: 87070; 87077; 87186; 87205

== ENCOUNTER 2019-08-22 11:46 | Inpatient (IN) | payer MEDICARE, MEDICAID, SELFPAY ==
[2019-08-14 09:19] VITALS: BMI 27.5
[2019-08-22] VITALS (21 sets, daily range): BP systolic 114–130; BP diastolic 49–89; PULSE 80–116; RESP 12–36; TEMP 36.1–36.9; O2SAT 94–100; BMI 27.3; BMI 27.4; BMI 27.1
--- NOTE | 2019-08-22 12:30 | CT_ITS ---
STUDY: CT LUMBAR SPINE WITHOUT CONTRAST REASON FOR EXAM: Female, 73 years old. PT STATED ABDOMEN AND BACK PAIN, HX OF HAYDEN RADIATION DOSAGE (If Supplied By Facility): CTDIvol = ( 30 ) mGy, DLP = ( 1132.12 ) mGycm TECHNIQUE: The patient was scanned in a multi detector CT scanner. High resolution transaxial imaging was performed. Images were obtained from T12 to S1 level. Sagittal and coronal images were reconstructed. Individualized dose optimization techniques were used for this CT. COMPARISON: None FINDINGS: Normal lumbar lordosis. There is a levoscoliosis of the lumbar spine. There is almost complete collapse of the T11 vertebrae. Minimal paravertebral soft tissue swelling is seen. L1-2: A Schmorl''s node is seen along the superior endplate of the L1 vertebrae. Mild degree of anterior spondylosis. L2-3: Mild degree of disc space narrowing. Facet joint osteoarthritis and hypertrophy. Moderate degree of bilateral neural foraminal stenosis and central canal stenosis. L3-4: Mild degree of disc space narrowing. Facet joint osteoarthritis and hypertrophy. Mild diffuse posterior disc bulge. Moderate degree of central canal stenosis and bilateral neural foraminal stenosis worse on the right side. L4-5: Moderate degree of disc space narrowing. Mild degree of facet joint osteoarthritis. L5-S1: Moderate degree of disc space narrowing. No significant stenosis seen. Normal visualized paraspinous soft tissue structures. CT/Spine Lumbar without Contrast IMPRESSION: Multilevel degenerative changes, as described above. Almost complete collapse of the T11 vertebrae. Electronically Signed: Nathen Dickinson, at 13:54 EST , Service support ,
--- NOTE | 2019-08-22 12:30 | CT_ITS ---
STUDY: CT ABDOMEN AND PELVIS WITHOUT CONTRAST REASON FOR EXAM: Female, 73 years old. PT STATED ABDOMEN AND BACK PAIN, HX OF HAYDEN RADIATION DOSAGE (If Supplied By Facility): CTDIvol = ( 13.82 ) mGy, DLP = ( 671.12 ) mGycm TECHNIQUE: Transaxial images were obtained from the dome of the diaphragm to the symphysis pubis without oral contrast, and without intravenous contrast. Sagittal and coronal images were reconstructed. Individualized dose optimization techniques were used for this CT. COMPARISON: Comparison is made with prior examination dated July 07, 2009. FINDINGS: Increased markings at the left lung base suggestive of either scarring and/or atelectasis. Coronary artery calcification. Normal liver. The patient is status post cholecystectomy. Normal spleen. Normal pancreas. Normal bilateral adrenal glands. Normal right kidney. Normal left kidney. There is a small hiatal hernia. Normal small intestine. Moderate amount of fecal material is seen in the right hemicolon. Scattered sigmoid diverticula. There is non-visualization of the appendix. There is diffuse atherosclerotic calcification of the abdominal aorta, without a demonstrated aneurysm. Normal inferior vena cava. Normal retroperitoneum. Normal urinary bladder. There is absence of the uterus consistent with a prior hysterectomy. Normal abdominal wall. Levoscoliosis. Almost complete collapse of the T11 vertebrae. CT/Abdomen/Pelvis without Cont IMPRESSION: Scarring and/or atelectasis at the left lung base. Moderate amount of fecal material in the right hemicolon. Sigmoid diverticula. Almost complete collapse of the T11 vertebrae. Electronically Signed: Nathen Dickinson, at 14:05 EST , Service support ,
[2019-08-22] MEDS: Ipratropium/Albuterol Sulfate 3 ML AMPUL.NEB INHALATION ×4 (12:41→22:54)
[2019-08-22] MEDS: Morphine 4 MG/ML Syringe IM ×2 (12:41→13:48)
[2019-08-22 13:02] LABS: Bacteria 0 SEEN /hpf (None Seen); Mucous, Urine 0 SEEN /hpf (<or=2+); Red Blood Cells-Urine 0 SEEN /hpf (0-5); Squamous Epithelial Cells - UA 0 SEEN /hpf (5-10); White Blood Cells 0 SEEN /hpf (0-5)
[2019-08-22 13:05] LABS: Color, Urine Yellow (Yellow); Glucose, Dipstick Normal (Normal); Ketone-Dipstick Negative (Negative); Leukocyte Esterase-Dipstick Negative /ul (Negative); Nitrite-Dipstick Negative (Negative); Occult Blood-Urine Negative /ul (Negative); Protein-Dipstick Negative (Negative); Specific Gravity, Urine 1.015 (1.002-1.030); Urine Bilirubin Dipstick Negative (Negative); Urine Clarity Clear (Clear); Urine Urobilinogen Normal (Normal)
--- NOTE | 2019-08-22 14:11 | RAD_ITS ---
STUDY: X-RAY CHEST REASON FOR EXAM: Female, 73 years old. SOB, BACK PAIN; -- CHF, H/O AFIB; -- RECENT HOSPITALIZATION FOR PNEUMONIA TECHNIQUE: Single AP portable view of the chest. COMPARISON: Comparison is made with prior study dated August 06, 2019. FINDINGS: EKG electrodes are seen. Hyperinflation. Mild residual markings are seen at the left lung base. The previously seen left lower lobe infiltrate has almost completely resolved. Stable scarring at the right lung base. Normal size heart. Normal mediastinum and betty. Normal visualized pulmonary arteries. Normal visualized aortic arch and descending thoracic aorta. There are diffuse degenerative changes of the visualized thoracic spine. Normal visualized ribs, clavicles, and shoulders. There is no demonstrated abnormality of the visualized soft tissue structures of the upper abdomen. RAD/Chest 1 View (Portable) IMPRESSION: Mild residual increased markings at the left lung base although there has been almost completely resolved of the previously seen left lower lobe infiltrate. Electronically Signed: Nathen Dickinson, at 14:41 EST , Service support ,
[2019-08-22 14:28] LABS: Absolute Lymphocyte Count 1.04 X10^3/uL (0.83-4.51); Absolute Neutrophil Count 9.8 X10^3/uL (2.0-7.7); Basophil# 0.01 X10^3/uL; Basophil% 0.1 % (0-1); Eosinophil# 0.01 X10^3/uL; Eosinophils% 0.1 % (0-5); Hematocrit 39.8 % (37-47); Lymphocyte # 1.04 X10^3/ul (4.0); Lymphocyte % 9.2 % (19-41); Mean Corp Hgb Conc 30.2 g/dL (32-36); Mean Corpuscular Hgb 27.6 pg (27.0-32.0); Mean Corpuscular Volume 91.5 fL (81-99); Mean Platelet Vol. 11.6 fl (6.2-12.0); Monocyte# 0.44 X10^3/uL; Monocyte% 3.9 % (0-10); NRBC Flagged by Analyzer 0 % (0-5); Neutrophil # 9.78 X10^3/uL (2.7-7.7); Neutrophil % 86.3 % (47-70); Platelet Count 223 K/mm3 (150-450); RBC Distribution Width SD 57.1 fl (35.1-43.9); Red Blood Count 4.35 M/mm3 (4.2-5.4); White Blood Count 11.3 K/mm3 (4.4-11.0)
--- NOTE | 2019-08-22 14:39 | EKG12_ITS ---
Test Reason : Blood Pressure : / mmHG Vent. Rate : 093 BPM Atrial Rate : 081 BPM P-R Int : 000 ms QRS Dur : 064 ms QT Int : 336 ms P-R-T Axes : 000 061 222 degrees QTc Int : [address] & T wave abnormality, consider inferolateral ischemia Abnormal ECG Confirmed by SARAHY BHAT, KYLEIGH ([id number]), acquisition editor BANG URBINA ([id number]) on 08/26/2019 10:15:22 AM Referred By: DRAKE Confirmed By:JERMAINE WEATHERS MD
[2019-08-22 14:42] LABS: Anion Gap 7 (5-15); BUN 22 mg/dL (7-18); BUN/Creat Ratio 25.6 RATIO (10-20); Calcium,Total 9.5 mg/dL (8.5-10.1); Chloride 104 mmol/L (98-107); Creatinine, Serum 0.86 mg/dL (0.55-1.02); EST Glomerular Filtration Rate 68 mL/min (>60); Est Glom Filt Rate - Afr Amer 83 mL/min (>60); Estimated Creatinine Clearance 54.96 ml/min; Glucose 118 mg/dL (74-106); Sodium Level 142 mmol/L (136-145)
--- NOTE | 2019-08-22 14:49 | ED.DCSUM_ITS ---
History of Present Illness Chief Complaint: Back Narrative: Patient presenting for evaluation secondary to back pain. Patient has a underlying history of multiple medical problems including A. fib congestive heart failure COPD with multiple admissions to the hospital recently. She currently is in a [place] [facility]. Patient states that over the course about the last week she has been dealing with severe right lower back pain. This was atraumatic in onset is continuous, severe, and is causing her some difficulty with getting up and ambulating. Patient has been able to ambulate, and she denies that she has any radiation of the pain to her legs. Patient denies that she has any new bowel or bladder incontinence, although she does state that intermittently she will have some urinary and clot continence. She denies any fevers, recent injections or surgeries. Patient has been using pain patches and this has not really alleviated her symptoms. Patient also today is complaining of her baseline shortness of breath. She states that she is feeling dyspneic and wheezing denies any fevers or chest pain. Past Medical History - Allergies and Home Meds Allergies/Adverse Reactions: Allergies amlodipine besylate [From [facility]] Adverse Reaction (Verified 08/22/19 11:46) ANKLE AND LEG EDEMA RESOLVED OFF MED-PER PCP PAPERWORK codeine Adverse Reaction (Verified 08/22/19 11:46) MENTAL STATUS CHANGE lisinopril Adverse Reaction (Verified 08/22/19 11:46) COUGH Primary Care Physician: Tor Lucia MD [Primary Care Provider] - Past Medical History: - - CHF, A. fib, chronic respiratory failure, recent pneumonia and sepsis Surgical History: cholecystectomy, hysterectomy, - - tailbone surgery. Smoking Status: Former smoker - Family History Maternal Family History: Family History (Last Reviewed 08/14/19 @ 10:00 by JOSEPH Callahan) Sister Heart disease Family History: Reports: - - Patient notes a maternal history of dementia and stroke. Paternal Family History: Family History (Last Reviewed 08/14/19 @ 10:00 by OJSEPH Callahan) Sister Heart disease Family History: Reports: - Sibling Family History: Family History (Last Reviewed 08/14/19 @ 10:00 by JOSEPH Callahan) Sister Heart disease Family History: Reports: - - Patient notes a sibling specifically her sister with Parkinson's disease and heart disease as well as a brother with Parkinson's disease, asthma and history of blood clots. Review of Systems All systems negative except as indicated General: Denies: Chills, Fever, Sweats Eyes: Denies: Visual changes - bilaterally, Diplopia ENT: Denies: Rhinorrhea, Sore throat Cardiovascular: Denies: Chest pain, Palpitations Respiratory: Reports: Dyspnea, Cough Gastrointestinal: Denies: Abdominal pain, Nausea, Vomiting, Diarrhea, Melena, Hematochezia Genitourinary: Denies: Dysuria, Hematuria, Frequency Musculoskeletal: Reports: Back pain Skin: Denies: Rash, Wounds Neurological: Denies: Headache, Weakness, Numbness Physical Exam Vital Signs/Narrative: Vital Signs Temp Pulse Resp BP Pulse Ox 08/22/19 14:40 128/75 H 98 08/22/19 13:49 98 28 H 08/22/19 13:36 95 95 08/22/19 12:41 101 H 20 H 08/22/19 11:47 97.0 F L 84 20 H 117/68 97 Inital Vital Signs reviewed: Yes General: Well nourished, Well developed Head: Normocephalic, Atraumatic Eyes: Perrl, EOMI ENT: Moist mucous membranes Neck: Supple Cardiovascular: Regular rate, Irregular Respiratory: - - Tachypneic with wheezing, speaking in about 5-8 word sentences. No retractions. Respiratory rate in the 30s. Abdomen: Soft, Nontender, Nondistended, Normal bowel sounds, No masses Back: - - Patient complains of right paraspinal lumbar back pain. No reproducible midline tenderness or step-offs. Extremeties: Nontender, No edema Skin: Normal color, No rash, - - Diaphoretic Neuro: - - 5 out of 5 strength at the hip knee ankle and foot with normal sensation over all dermatomes. +1 patellar and Achilles reflexes bilaterally. Normal clonus and Babinski. Negative straight leg raise. Psychological: Normal affect Diagnostic/Tx/Re-eval - EKG Initial EKG Interpretation: - - Atrial fibrillation with a ventricular rate of 93. Lateral ST changes are noted that are new from prior EKG. - Medical Decision Making Patient presented secondary to back pain. On initial presentation, she was mildly dyspneic she was given a breathing treatment of morphine. Due to the fact that she has a history of being on Coumadin, has back pain, and her INR was recently as high as 5 was concern for the possibility of maybe a retroperitoneal hematoma so I did perform CT imaging of the patient's abdomen pelvis and back. Back imaging showed the patient to have T11 compression. She has some constipation. No other evidence of acute intra-abdominal process. While patient was in the ED, she became progressively more short of breath with respiratory rates going up in the 30s, and profuse diaphoresis. She was given couple more breathing treatments, continue to have these symptoms so IV was established laboratory studies were obtained. Chest x-ray shows clearing of the patient's pneumonia. CBC chemistry not remarkable, but lactic acid was elevated at 3. Patient was continuing to have worsening symptoms so she was placed on BiPAP. At this point a believe the patient requires admission. She has normal distal pulses, but with a lactic acid of 3 and back pain and respiratory distress, I did consider the possibility of aortic dissection. CT imaging was ordered, and is pending. I discussed patient's case with the hospitalist and the patient will be admitted under the hospitalist for further work-up and treatment. Disposition: Admit to PCU Critical care time (excluding procedures): 30-74 minutes ED Disposition - Plan for ED Patient: Disposition: Acute Care Hospital [facility] Diagnosis: Respiratory failure, Back pain, Lactic acidosis
[2019-08-22] MEDS: Albuterol 2.5 MG/3 ML VIAL.NEB. INHALATION (15:00)
[2019-08-22 15:25] LABS: Lactic Acid 3.3 mmol/L (0.4-1.9)
--- NOTE | 2019-08-22 15:29 | CT_ITS ---
STUDY: CTA OF THE ABDOMINAL AORTA REASON FOR EXAM: Female, 73 years old. R/o DISSECTION, BACK PAIN RADIATION DOSAGE (If Supplied By Facility): CTDIvol = ( 13.94 ) mGy, DLP = ( 874.50 ) mGycm TECHNIQUE: Axial CT angiography multi-detector data acquisition was obtained from following intravenous administration of 100ml isovue 370. Axial images and MIP images were reconstructed from the axial data set. Post-processing of the angiographic images was performed, with multiplanar reformation and 3D reconstruction. Individualized dose optimization techniques were used for this CT. TECHNICAL QUALITY: Good COMPARISON: None. Descriptors of Narrowing: None (0%) Mild (< 50%) Moderate (50-70%) Severe (70-90%) Subtotal/Total Occlusion (90-100%) Non-Evaluable (technically non-diagnostic Exam: CT of the abdomen and pelvis with contrast, CTA of the abdomen and pelvis, with 2-D MIPs reconstructions. HISTORY: Pain. COMPARISON: None FINDINGS: Exam is limited by motion. Tortuous aorta with calcified plaque. No aneurysm. No evidence for dissection. Calcified plaque in the aortic branches but otherwise normal aortic branches. Images of the liver, spleen, pancreas and kidneys are significantly degraded by motion but grossly negative. Gallbladder not seen. No gross acute abnormalities of the kidneys. Evaluation of the GI tract is limited by absence of oral contrast. Cannot exclude stomach wall thickening. No dilated loops of bowel or evidence for obstruction. Cannot exclude segmental thickening of the cervantes of the small or large bowel. Cannot exclude enteritis or colitis. Moderate diffuse fecal retention. Appendix within normal limits. No evidence for adenopathy or mass. No gross free fluid. Degenerative changes throughout the bones including severe compression fracture of T12. Mild to moderate scoliosis to the left. IMPRESSION: No acute abnormality. Normal aorta with no aneurysm or dissection. Tortuous aorta with calcified plaque. Electronically Signed: Selwyn Hernandez MD at 16:24 EST , Service support , STUDY: CTA CHEST REASON FOR EXAM: Female, 73 years old. R/o DISSECTION, BACK PAIN RADIATION DOSAGE (If Supplied By Facility): CTDIvol = ( 13.94 ) mGy, DLP = ( 874.50 ) mGycm TECHNIQUE: The examination was performed with the intravenous administration of 100 ML ISOVUE 370. Post-processing of the angiographic images was performed, with multiplanar reformation and 3D reconstruction. Individualized dose optimization techniques were used for this CT. COMPARISON: None. FINDINGS: Normal enhancement of the main pulmonary artery and right and left pulmonary arteries. Normal enhancement of the bilateral peripheral pulmonary arteries. There is no demonstrated pulmonary embolism. There is atherosclerotic calcification of the aortic arch with tortuosity. There is no demonstrated aortic dissection. Normal heart and pericardium. There are calcifications of the coronary arteries. Normal mediastinum. Normal hilar regions. Normal visualized trachea and bronchi. The lungs are hyper expanded, with flattening of the hemidiaphragms. No infiltrates. Scarring along the surface of the left major fissure. No effusions. Normal chest wall structures. There are degenerative changes of thoracic spine. Severe compression fracture of T12 of indeterminate age. CT/CTA Chest W/WO Contrast IMPRESSION: Normal CTA chest examination, without a demonstrated pulmonary embolism or arterial dissection. COPD. Electronically Signed: Selwyn Hernandez MD at 16:28 EST , Service support ,
--- NOTE | 2019-08-22 15:29 | CT_ITS ---
STUDY: CTA OF THE ABDOMINAL AORTA REASON FOR EXAM: Female, 73 years old. R/o DISSECTION, BACK PAIN RADIATION DOSAGE (If Supplied By Facility): CTDIvol = ( 13.94 ) mGy, DLP = ( 874.50 ) mGycm TECHNIQUE: Axial CT angiography multi-detector data acquisition was obtained from following intravenous administration of 100ml isovue 370. Axial images and MIP images were reconstructed from the axial data set. Post-processing of the angiographic images was performed, with multiplanar reformation and 3D reconstruction. Individualized dose optimization techniques were used for this CT. TECHNICAL QUALITY: Good COMPARISON: None. Descriptors of Narrowing: None (0%) Mild (< 50%) Moderate (50-70%) Severe (70-90%) Subtotal/Total Occlusion (90-100%) Non-Evaluable (technically non-diagnostic Exam: CT of the abdomen and pelvis with contrast, CTA of the abdomen and pelvis, with 2-D MIPs reconstructions. HISTORY: Pain. COMPARISON: None FINDINGS: Exam is limited by motion. Tortuous aorta with calcified plaque. No aneurysm. No evidence for dissection. Calcified plaque in the aortic branches but otherwise normal aortic branches. Images of the liver, spleen, pancreas and kidneys are significantly degraded by motion but grossly negative. Gallbladder not seen. No gross acute abnormalities of the kidneys. Evaluation of the GI tract is limited by absence of oral contrast. Cannot exclude stomach wall thickening. No dilated loops of bowel or evidence for obstruction. Cannot exclude segmental thickening of the cervantes of the small or large bowel. Cannot exclude enteritis or colitis. Moderate diffuse fecal retention. Appendix within normal limits. No evidence for adenopathy or mass. No gross free fluid. Degenerative changes throughout the bones including severe compression fracture of T12. Mild to moderate scoliosis to the left. IMPRESSION: No acute abnormality. Normal aorta with no aneurysm or dissection. Tortuous aorta with calcified plaque. Electronically Signed: Selwyn Hernandez MD at 16:24 EST , Service support , STUDY: CTA CHEST REASON FOR EXAM: Female, 73 years old. R/o DISSECTION, BACK PAIN RADIATION DOSAGE (If Supplied By Facility): CTDIvol = ( 13.94 ) mGy, DLP = ( 874.50 ) mGycm TECHNIQUE: The examination was performed with the intravenous administration of 100 ML ISOVUE 370. Post-processing of the angiographic images was performed, with multiplanar reformation and 3D reconstruction. Individualized dose optimization techniques were used for this CT. COMPARISON: None. FINDINGS: Normal enhancement of the main pulmonary artery and right and left pulmonary arteries. Normal enhancement of the bilateral peripheral pulmonary arteries. There is no demonstrated pulmonary embolism. There is atherosclerotic calcification of the aortic arch with tortuosity. There is no demonstrated aortic dissection. Normal heart and pericardium. There are calcifications of the coronary arteries. Normal mediastinum. Normal hilar regions. Normal visualized trachea and bronchi. The lungs are hyper expanded, with flattening of the hemidiaphragms. No infiltrates. Scarring along the surface of the left major fissure. No effusions. Normal chest wall structures. There are degenerative changes of thoracic spine. Severe compression fracture of T12 of indeterminate age. CT/CTA Abdomen W/WO Contrast IMPRESSION: Normal CTA chest examination, without a demonstrated pulmonary embolism or arterial dissection. COPD. Electronically Signed: Selwyn Hernandez MD at 16:28 EST , Service support ,
[2019-08-22 15:54] LABS: BNP,B-Type NATRIURETIC PEPTIDE 224.4 pg/mL (0-100)
--- NOTE | 2019-08-22 16:06 | PCM.HP.STD ---
<Kris Pollard - Last Filed: 08/22/19 16:06> Problem List (1) Acute and chronic respiratory failure with hypoxia Status: Acute (2) Compression fracture Status: Chronic (3) ANKUSH (obstructive sleep apnea) Status: Chronic (4) Former tobacco use Status: Chronic (5) Depression Status: Chronic (6) Pulmonary hypertension Status: Chronic (7) History of recurrent deep vein thrombosis (DVT) Status: Chronic (8) History of pulmonary embolism Status: Chronic (9) Paroxysmal atrial fibrillation Status: Chronic Comment: DCCV on 01/31/2018; (10) HTN (hypertension) Status: Chronic Qualifiers: Hypertension type: essential hypertension Qualified Code(s): I10 - Essential (primary) hypertension (11) Acute exacerbation of CHF (congestive heart failure) Status: Chronic (12) Dyslipidemia Status: Chronic (13) COPD (chronic obstructive pulmonary disease) Status: Chronic Qualifiers: COPD type: unspecified COPD Qualified Code(s): J44.9 - Chronic obstructive pulmonary disease, unspecified History of Present Illness Date of Admission: 08/22/19 Chief Complaint: SOB The patient is a 73 year old F with pmhx notable for COPD, chronic hypoxic respiratory failure, ANKUSH, chronic diastolic CHF, pulmonary HTN, CAD, hx PE/DVT, who is being admitted for SOB. She was initially sent from the SNF to the ER today for back pain. She denies trauma, however about a week ago she developed severe back pain and has since been unable to walk. In the ER she was found to have a T11 compression fracture. Later while in the ER she developed SOB. She states her breathing was at baseline before coming in. She became more and more SOB, with increased wheezing. CXR shows clearing of prior pna. EKG shows Afib and nonspecific ST changes. BNP is mildly elevated. She states Dr. Jaffe is planning a stent for her but has not been able to do it with her poor lungs. She has no chest pain, heaviness, tightness, palp. She has no fever/chills. She has no cough. She has no dysuria. She has no N/V/D. She is currently on Bipap and improving. [] Past Medical History Past Medical History (Chronic Problems): Chronic Problems (Last Reviewed 08/14/19 @ 10:00 by JOSEPH Callahan) Compression fracture (Chronic) ANKUSH (obstructive sleep apnea) (Chronic) Diastolic dysfunction (Chronic) Chronic hypoxemic respiratory failure (Chronic) Chronic anticoagulation (Chronic) Former tobacco use (Chronic) Depression (Chronic) Pulmonary hypertension (Chronic) History of recurrent deep vein thrombosis (DVT) (Chronic) History of pulmonary embolism (Chronic) History of cardioversion (Chronic) January of 2018.....HR not controlled with exertion while in AF on Beta donna and cardizem. Converted to NSR with cardioversion Paroxysmal atrial fibrillation (Chronic) DCCV on 01/31/2018; HTN (hypertension) (Chronic) Iron deficiency anemia (Chronic) Chronic diastolic CHF (congestive heart failure) (Chronic) Acute exacerbation of CHF (congestive heart failure) (Chronic) Atrial fibrillation with RVR (Chronic) Dyslipidemia (Chronic) COPD (chronic obstructive pulmonary disease) (Chronic) Medical History: Medical History (Last Reviewed 08/14/19 @ 10:00 by Eveline Jason NP-C) Dyslipidemia (Chronic) E78.5 COPD (chronic obstructive pulmonary disease) (Chronic) J44.9 Atrial fibrillation I48.91 Heart failure with preserved ejection fraction I50.30 Group 2. EF 65% 12/05/17 Essential hypertension I10 History of DVT (deep vein thrombosis) Z86.718 History of pulmonary embolus (PE) Z86.711 Pulmonary HTN I27.20 Venous insufficiency I87.2 Allergies amlodipine besylate [From [facility]] Adverse Reaction (Verified 08/22/19 11:46) ANKLE AND LEG EDEMA RESOLVED OFF MED-PER PCP PAPERWORK codeine Adverse Reaction (Verified 08/22/19 11:46) MENTAL STATUS CHANGE lisinopril Adverse Reaction (Verified 08/22/19 11:46) COUGH Home Medications: Ambulatory Orders Medication Instructions Recorded Ergocalciferol [Vitamin D] 50,000 unit PO TH 07/19/15 Warfarin Sodium 4 mg PO SUTUTHSA 03/08/18 Citalopram Hydrobromide 40 mg PO DAILY 05/23/18 [Citalopram HBr] Budesonide 2 ml IH BID 01/17/19 Omeprazole 20 mg PO DAILY 01/17/19 Sucralfate [Carafate] 1 gm PO Q6H PRN PRN 01/17/19 Vit A/Vit C/Vit E/Zinc/Copper 1 ea PO BID 01/17/19 [Preservision Areds Tablet] Warfarin [Coumadin] 3 mg PO MOWEFR 01/17/19 Buspirone HCl 7.5 mg PO QHS 05/07/19 Acetaminophen [Tylenol Tablet] 1,000 mg PO Q6H PRN PRN 07/12/19 Cyanocobalamin (Vitamin B-12) 500 mcg PO DAILY@0800 07/12/19 [Vitamin B-12] Polyethylene Glycol 3350 17 gm PO DAILY 07/12/19 Potassium Chloride 20 meq PO DAILY #0 08/10/19 Zolpidem Tartrate [Ambien] 5 mg PO QHS PRN PRN 5 Days #5 tab 08/10/19 Bisacodyl [Gentle Laxative] 10 mg [place] DAILY PRN PRN 08/22/19 Digoxin [Lanoxin] 250 mcg PO DAILY 08/22/19 Diltiazem CD [Cardizem CD] 120 mg PO Q12 08/22/19 Ferrous Sulfate 325 mg PO BIDCM 08/22/19 Furosemide [Lasix] 40 mg PO DAILY 08/22/19 Lactobacillus Acidophilus 1 ea PO DAILY 08/22/19 [Acidophilus] Levofloxacin [Levaquin] 750 mg PO DAILY 08/22/19 Lidocaine HCl [Aspercreme] 1 applic TP QHS 08/22/19 Prednisone 10 mg PO DAILY 08/22/19 Sennosides/Docusate Sodium [Senna 2 tab PO QHS 08/22/19 Plus 8.6-50 mg Tablet] traMADol [Ultram (G)] 50 mg PO BID 08/22/19 traMADol [Ultram (G)] 50 mg PO Q6H PRN PRN 08/22/19 Surgical History: Surgical History (Last Reviewed 08/14/19 @ 10:00 by JOSEPH Callahan) History of cholecystectomy Z90.49 History of total hysterectomy Z90.710 tailbone surgery Surgical History: cholecystectomy, hysterectomy, - - tailbone surgery. Psychiatric History: Anxiety, Depression [employer] History: No pertinent [employer] history Lives: Detention Smoking Status: Former smoker Tobacco Use: Non-smoker Alcohol: None Drugs: None - *Family History Maternal Family History: Family History (Last Reviewed 08/14/19 @ 10:00 by JOSEPH Callahan) Sister Heart disease History Items: - - Patient notes a maternal history of dementia and stroke. Paternal Family History: Family History (Last Reviewed 08/14/19 @ 10:00 by JOSEPH Callahan) Sister Heart disease History Items: - Sibling Family History: Family History (Last Reviewed 08/14/19 @ 10:00 by JOSEPH Callahan) Sister Heart disease History Items: - - Patient notes a sibling specifically her sister with Parkinson's disease and heart disease as well as a brother with Parkinson's disease, asthma and history of blood clots. Review of Systems Constitutional: Reports: Weakness, Fatigue. Denies: Chills, Fever, Weight Change HEENT: Denies: Head Aches, Sinus Congestion, Sinus Drainage Cardiovascular: Reports: Light Headedness. Denies: Chest Pain, Chest Pressure, Chest Tightness, Edema, Heaviness, Palpitations, Syncope Respiratory: Reports: Shortness of Breath, Shortness of breath at rest, Shortness of breath upon exertion, Wheezing. Denies: Cough, Hemoptysis, Pleuritic Pain, Sputum production Gastrointestinal: Reports: Constipation. Denies: Abdominal Pain, Diarrhea, Nausea, Vomiting Genitourinary: Denies: Dysuria, Frequency, Urgency Musculoskeletal: Denies: Joint Pain, Joint Tenderness Skin: Denies: Lesions, Rash, Wounds Neurological: Denies: Balance problems, Focal weakness, Numbness, Tingling Psychiatric: Denies: Anxiety, Depression, Homicidal Ideations, Suicidal Ideations Hematologic/ Lymphatic: Denies: Easy Bruising, Easy Bleeding VTE Information - Inpt Only VTE Present on Admission: No VTE Mechan Device Prophylaxis: None VTE Pharm Prophylaxis ordered?: Yes Patient Problems: Active and Suspected Problems (Last Reviewed 08/14/19 @ 10:00 by JOSEPH Callahan) Respiratory failure (Acute) Back pain (Acute) Acute and chronic respiratory failure with hypoxia (Acute) Lactic acidosis (Acute) - Physical Exam Vitals/I&O's: Vital Signs Temp Pulse Resp BP Pulse Ox 97.0 F L 116 H 36 H 130/89 H 96 08/22/19 11:47 08/22/19 15:52 08/22/19 15:23 08/22/19 15:52 08/22/19 15:52 Oxygen Flow Rate (L/min) 3 Oxygen Delivery Method Nasal Cannula Weight: 175 lb Body Mass Index (BMI) 27.3 General: Alert, Oriented x3, Cooperative HEENT: Atraumatic, PERRLA, EOMI, Normocephalic Neck: Supple, No JVD, Negative Carotid Bruits Lungs: No wheeze, Diminished, Rhonchi Cardiovascular: No murmurs, Irregular Rate Abdomen: Bowel Sounds Present, Soft, Non Tender Extremities: Capillary Refill Less than 3 Seconds, Edema - trace pitting edema BLE Skin: No rashes, No breakdown Musculoskeletal: No Tenderness to Palpation of Joints or Extremities Neurological: Cranial nerves II-XII grossly intact Psych/Mental Status: Normal Affect, Appropriate, Alert and oriented to time, place, person, mood and affect Laboratory Results 08/22/19 12:55: Urine Color Yellow, Urine Clarity Clear, Urine pH 8.0, Ur Specific [place] 1.015, Urine Protein Negative, Urine Glucose (UA) Normal, Urine Ketones Negative, Urine Occult Blood Negative, Urine Nitrite Negative, Urine Bilirubin Negative, Urine Urobilinogen Normal, Ur Leukocyte Esterase Negative, Urine RBC 0 SEEN, Urine WBC 0 SEEN, Ur Squamous Epith Cells 0 SEEN, Urine Bacteria 0 SEEN, Urine Mucus 0 SEEN 08/22/19 14:18: WBC 11.3 H, RBC 4.35, Hgb 12.0, Hct 39.8, MCV 91.5, MCH 27.6, MCHC 30.2 L, RDW Std Deviation 57.1 H, RDW Coeff of Laura 17.0 H, Plt Count 223, MPV 11.6, Immature Gran % (Auto) 0.400, Neut % (Auto) 86.3 H, Lymph % (Auto) 9.2 L, [place] % (Auto) 3.9, Eos % (Auto) 0.1, Baso % (Auto) 0.1, Absolute Neuts (auto) 9.8 H, Absolute Lymphs (auto) 1.04, Nucleated RBC % 0 08/22/19 14:18: Sodium 142, Potassium 4.0, Chloride 104, Carbon Dioxide 31.0, Anion Gap 7, BUN 22 H, Creatinine 0.86, Estim Creat Clear Calc 54.96, Est GFR (MDRD) Af Amer 83, Est GFR (MDRD) Non-Af 68, BUN/Creatinine Ratio 25.6 H, Glucose 118 H, Calcium 9.5 08/22/19 14:18: Troponin I 0.018 08/22/19 14:18: PT Pending, INR Pending 08/22/19 14:19: Lactic Acid 3.3 H* 08/22/19 14:19: B-Natriuretic Peptide 224.4 H Assessment/Plan All Active Problems (Last Reviewed 08/14/19 @ 10:00 by JOSEPH Callahan) Respiratory failure (Acute) Back pain (Acute) Acute and chronic respiratory failure with hypoxia (Acute) Influenzal bronchopneumonia (Acute) Leukocytosis (Acute) Lactic acidosis (Acute) Pneumonia (Acute) Sepsis (Acute) Severe sepsis (Acute) Hospital acquired PNA (Acute) 1. Acute on chronic hypoxic respiratory failure 2/2 COPD exacerbation - continue bipap. provide solumedrol, aerosols. CTA pending. CXR with clearing of pna. No fever. Mild leukocytosis - she has been on prednisone. Check INR. UA negative. Suspect elevated lactic acid is due to increased respiratory demand. Recently here with Flu B and Pna. CTA shows COPD, no dissection/PE. 2. CAD - Nonspecific ST changes on EKG - repeat AM ekg. Trop neg. Will cycle. Maintain on tele. She is planning an outpatient stent placement with Dr. Jaffe. 3. Compression fracture T11- continue vit D. Ca++ normal. Outpatient follow up for bone study. Needs PTOT. Currently cant walk. Consider pain management consult if she still cannot walk after respiratory status improved. 4. Recent pna - clearing on CXR. complete o/p levaquin. 5. Chronic diastolic CHF, pulmonary HTN - continue home meds. Does not appear to have an acute exacerbation at this time. 6. pAfib - currently in Afib. INR pending. Continue coumadin. Rate mildly tachy. Cotninue Digoxin, Cardizem 7. Hx DVT PE - as per #6. 8. Anx/Depression - ambien, citalopram, buspar 9. ANKUSH - does not use CPAP/BiPAP at home as she has not had her formal sleep study yet. DVT ppx: coumadin DC [facility] This patient was seen by Kris Pollard PA-C under the supervision of Doctor Mike. <Stanley Mckeon F - Last Filed: 08/22/19 18:44> History of Present Illness The patient is a 73 year old F [] Past Medical History Medical History: Medical History (Last Reviewed 08/14/19 @ 10:00 by JOSEPH Callahan) Dyslipidemia (Chronic) E78.5 COPD (chronic obstructive pulmonary disease) (Chronic) J44.9 Atrial fibrillation I48.91 Heart failure with preserved ejection fraction I50.30 Group 2. EF 65% 12/05/17 Essential hypertension I10 History of DVT (deep vein thrombosis) Z86.718 History of pulmonary embolus (PE) Z86.711 Pulmonary HTN I27.20 Venous insufficiency I87.2 Allergies amlodipine besylate [From [facility]] Adverse Reaction (Verified 08/22/19 11:46) ANKLE AND LEG EDEMA RESOLVED OFF MED-PER PCP PAPERWORK codeine Adverse Reaction (Verified 08/22/19 11:46) MENTAL STATUS CHANGE lisinopril Adverse Reaction (Verified 08/22/19 11:46) COUGH Surgical History: Surgical History (Last Reviewed 08/14/19 @ 10:00 by JOSEPH Callahan) History of cholecystectomy Z90.49 History of total hysterectomy Z90.710 tailbone surgery - *Family History Maternal Family History: Family History (Last Reviewed 08/14/19 @ 10:00 by JOSEPH Callahan) Sister Heart disease Paternal Family History: Family History (Last Reviewed 08/14/19 @ 10:00 by JOSEPH Callahan) Sister Heart disease Sibling Family History: Family History (Last Reviewed 08/14/19 @ 10:00 by JOSEPH Callahan) Sister Heart disease - Physical Exam Vitals/I&O's: Vital Signs Temp Pulse Resp BP Pulse Ox 98.4 F 95 24 H 114/66 96 08/22/19 17:01 08/22/19 17:28 08/22/19 17:01 08/22/19 17:01 08/22/19 17:01 Oxygen Flow Rate (L/min) 3 Oxygen Delivery Method Ambu-Bag Weight: 173 lb 3.2 oz Body Mass Index (BMI) 27.1 Laboratory Results 08/22/19 12:55: Urine Color Yellow, Urine Clarity Clear, Urine pH 8.0, Ur Specific [place] 1.015, Urine Protein Negative, Urine Glucose (UA) Normal, Urine Ketones Negative, Urine Occult Blood Negative, Urine Nitrite Negative, Urine Bilirubin Negative, Urine Urobilinogen Normal, Ur Leukocyte Esterase Negative, Urine RBC 0 SEEN, Urine WBC 0 SEEN, Ur Squamous Epith Cells 0 SEEN, Urine Bacteria 0 SEEN, Urine Mucus 0 SEEN 08/22/19 14:18: WBC 11.3 H, RBC 4.35, Hgb 12.0, Hct 39.8, MCV 91.5, MCH 27.6, MCHC 30.2 L, RDW Std Deviation 57.1 H, RDW Coeff of Laura 17.0 H, Plt Count 223, MPV 11.6, Immature Gran % (Auto) 0.400, Neut % (Auto) 86.3 H, Lymph % (Auto) 9.2 L, [place] % (Auto) 3.9, Eos % (Auto) 0.1, Baso % (Auto) 0.1, Absolute Neuts (auto) 9.8 H, Absolute Lymphs (auto) 1.04, Nucleated RBC % 0 08/22/19 14:18: Sodium 142, Potassium 4.0, Chloride 104, Carbon Dioxide 31.0, Anion Gap 7, BUN 22 H, Creatinine 0.86, Estim Creat Clear Calc 54.96, Est GFR (MDRD) Af Amer 83, Est GFR (MDRD) Non-Af 68, BUN/Creatinine Ratio 25.6 H, Glucose 118 H, Calcium 9.5 08/22/19 14:18: Troponin I 0.018 08/22/19 14:18: PT 25.4 H, INR 2.3 08/22/19 14:19: Lactic Acid 3.3 H* 08/22/19 14:19: B-Natriuretic Peptide 224.4 H Current Medications Acetaminophen (Tylenol) 650 mg PO Q6H PRN PRN PRN Reason: Pain Score 1-10/Temp > 100.7 F Albuterol/Ipratropium (Duoneb) 3 ml INHALATION Q4HWA.RT [facility] Buspirone HCl (Buspar) 7.5 mg PO QHS [facility] Citalopram Hydrobromide (Celexa) 40 mg PO DAILY [facility] Digoxin (Lanoxin) 250 mcg PO DAILY [facility] Diltiazem HCl (Cardizem Cd) 120 mg PO Q12 [facility] Ergocalciferol (Vitamin D) 50,000 unit PO TH [facility] Ferrous Sulfate (Ferrous Sulfate) 325 mg PO BIDCM [facility] Furosemide (Lasix) 40 mg PO DAILY [facility] Levofloxacin (Levaquin Tablet) 750 mg PO DAILY [facility] Methylprednisolone (Solu-Medrol) 40 mg IV Q8 [facility] Ondansetron HCl (Zofran) 4 mg IV Q8H PRN PRN PRN Reason: NAUSEA/VOMITING Pantoprazole Sodium (Protonix) 20 mg PO DAILY [facility] Potassium Chloride (K-Dur) 20 meq PO DAILY [facility] Senna/Docusate Sodium (Senokot-S, Caterina-Colace) 2 tablet PO QHS [facility] Sodium Chloride () 10 - 40 ml IV UD PRN PRN Reason: SALINE FLUSH Sucralfate (Carafate) 1 gm PO 1HR_ACHS PRN PRN Reason: GI UPSET Tramadol HCl (Ultram) 50 mg PO BID [facility] Tramadol HCl (Ultram) 50 mg PO Q6H PRN PRN PRN Reason: Pain Score 4-10/10 Warfarin Sodium (Coumadin (Pbkc)) 3 mg PO MoWeFr@1700 [facility] Warfarin Sodium (Coumadin (Pbkc)) 4 mg PO SuTuThSa@1700 [facility] Code Visit Addendum: Dr. Mckeon I personally examined the patient and reviewed the chart. I agree with the above. 73-[facility]-old [facility] a complaint of a right-sided low back pain. She says it is on the right side does not radiate anywhere. However during her stay in the ER she started becoming more dyspneic and had to be placed on BiPAP. She had significant wheezing in her lung franklin and her heart rate shot up into the 160s. After the BiPAP was started she was feeling much better, she was not diaphoretic and her heart rate had improved. A BNP was obtained in the ER which was 224, and troponin was normal. CT scans of her chest abdomen and pelvis demonstrated a T11/T12 compression fracture otherwise there is no pleural fluid on the CTA of her chest and no significant signs of an overt CHF exacerbation. 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 Inpatient E&M: 22417 Init Hosp L3
[2019-08-22 16:17] LABS: International Normalized Ratio 2.3; Prothrombin Time (Protime)PT. 25.4 SECONDS (11.7-14.9)
[2019-08-22 19:00] LABS: Reflex Lactate? Y
[2019-08-22] MEDS: levoFLOXacin 750 MG Tablet PO (19:35)
[2019-08-22 20:47] LABS: Lactic Acid 3.3 mmol/L (0.4-1.9)
[2019-08-22] MEDS: dilTIAZem CD 120 MG Capsule PO (21:26)
[2019-08-22] MEDS: Senna/Docusate Sodium 1 Tablet 2 TABLET PO (21:26)
[2019-08-22] MEDS: busPIRone 15 MG TABLET 7.5 MG PO (21:26)
[2019-08-22] MEDS: traMADol 50 MG Tablet PO (21:31)
--- NOTE | 2019-08-22 23:42 | CPS ---
IPAP/EPAP titrated to 12/8; pt. able to handle these lower pressures better
[2019-08-23] VITALS (18 sets, daily range): BP systolic 103–115; BP diastolic 51–69; PULSE 81–97; RESP 12–24; TEMP 36.6–36.8; O2SAT 88–99
[2019-08-23] MEDS: 0.9% Saline Lock 10 ML Syringe IV (05:22)
[2019-08-23] MEDS: Ondansetron 4 MG/2 ML Vial IV (05:22)
[2019-08-23 06:13] LABS: Absolute Lymphocyte Count 0.28 X10^3/uL (0.83-4.51); Absolute Neutrophil Count 7.2 X10^3/uL (2.0-7.7); Hematocrit 35.7 % (37-47); Hemoglobin 10.8 g/dL (12.0-15.0); Lymphocyte # 0.28 X10^3/ul (4.0); Lymphocyte % 3.7 % (19-41); Mean Corp Hgb Conc 30.3 g/dL (32-36); Mean Corpuscular Hgb 27.6 pg (27.0-32.0); Mean Corpuscular Volume 91.3 fL (81-99); Mean Platelet Vol. 11.6 fl (6.2-12.0); Monocyte# 0.06 X10^3/uL; Monocyte% 0.8 % (0-10); NRBC Flagged by Analyzer 0 % (0-5); Neutrophil # 7.16 X10^3/uL (2.7-7.7); Neutrophil % 94.6 % (47-70); POSITIVE DIFFERENTIAL YES; Platelet Count 212 K/mm3 (150-450); RBC Distribution Width CV 17.8 % (11.6-14.6); RBC Distribution Width SD 58.9 fl (35.1-43.9); Red Blood Count 3.91 M/mm3 (4.2-5.4); White Blood Count 7.6 K/mm3 (4.4-11.0)
[2019-08-23 06:20] LABS: Prothrombin Time (Protime)PT. 22.9 SECONDS (11.7-14.9)
[2019-08-23 06:38] LABS: Differential Indicated SCAN CRITERIA MET
[2019-08-23 06:39] LABS: Anion Gap 5 (5-15); BUN 25 mg/dL (7-18); BUN/Creat Ratio 36.8 RATIO (10-20); Calcium,Total 9.1 mg/dL (8.5-10.1); Chloride 103 mmol/L (98-107); Creatinine, Serum 0.68 mg/dL (0.55-1.02); EST Glomerular Filtration Rate 90 mL/min (>60); Est Glom Filt Rate - Afr Amer 108 mL/min (>60); Estimated Creatinine Clearance 47.27 ml/min; Glucose 165 mg/dL (74-106); Potassium 4.1 mmol/L (3.5-5.1); Sodium Level 141 mmol/L (136-145)
[2019-08-23 06:41] LABS: Differential Comment SCANNED
[2019-08-23] MEDS: Ipratropium/Albuterol Sulfate 3 ML AMPUL.NEB INHALATION ×5 (06:58→22:45)
[2019-08-23] MEDS: Furosemide 40 MG Tablet PO (09:17)
[2019-08-23] MEDS: Digoxin 250 MCG Tablet PO (09:17)
[2019-08-23] MEDS: Pantoprazole Sodium 20 MG Tablet PO (09:17)
[2019-08-23] MEDS: Citalopram 40 MG TABLET PO (09:17)
[2019-08-23] MEDS: dilTIAZem CD 120 MG Capsule PO ×2 (09:18→22:13)
[2019-08-23] MEDS: levoFLOXacin 750 MG Tablet PO (09:18)
[2019-08-23] MEDS: traMADol 50 MG Tablet PO ×2 (09:20→22:13)
--- NOTE | 2019-08-23 10:14 | CASEMGMT ---
Addendum entered by Lizabeth Ramírez 08/23/19 12:22: SW spoke w/Cecily at [facility] in regard to palliative referral. As per the notes, they spoke w/daughter and pt declined referral. YAO let Stacy at [facility] know this information. TRINI Gomez Original Note: Pt is here from [facility]. SW faxed updates to [facility]. SW called daughter, message left. It is anticipated pt will return to [facility] at discharge, green sheet is on the chart. YAO did call Stacy at [facility] to inquire if pt is now on palliative care, she is not sure, she will follow up. SW called [facility], message left to follow up w/[facility] regarding pt next week if pt has not yet met w/palliative. TRINI Gomez
[2019-08-23] MEDS: Magnesium Hydroxide 30 ML UDC PO (11:39)
[2019-08-23] MEDS: Polyethylene Glycol 3350 17 GM PACKET PO (11:39)
[2019-08-23] MEDS: predniSONE 20 MG Tablet 40 MG PO (11:40)
[2019-08-23] MEDS: Acetaminophen 325 MG Tablet 650 MG PO (13:57)
--- NOTE | 2019-08-23 14:56 | PCM.PN.HOSP ---
<Kris Pollard - Last Filed: 08/23/19 14:56> Patient Problems: Active and Suspected Problems (Last Reviewed 08/14/19 @ 10:00 by JOSEPH Callahan) Respiratory failure (Acute) Back pain (Acute) Acute and chronic respiratory failure with hypoxia (Acute) Lactic acidosis (Acute) Reason for Visit: SOB Subjective: Breathing improved. On baseline O2. Continue bipap at night - no home bipap, planning for outpatient PSG. No cough. No fever/chills. Back pain greatly improved. She ambulated around the PCU with a walker with therapy. Vitals/I&O's: Vital Signs Temp Pulse Resp BP Pulse Ox 98.3 F 85 18 103/51 L 97 08/23/19 14:34 08/23/19 14:34 08/23/19 14:34 08/23/19 14:34 08/23/19 14:34 Oxygen Flow Rate (L/min) [ 2 AMBULATION with Oxygen] Oxygen Flow Rate (L/min) [At 2 REST on Room Air] Oxygen Flow Rate (L/min) 2 Oxygen Delivery Method Nasal Cannula Weight: 173 lb 4.533 oz Body Mass Index (BMI) 27.1 Intake and Output for Last 24 Hours 08/21/19 08/22/19 08/23/19 23:59 23:59 23:59 Intake Total 240 / 240 240 / 240 Balance 240 / 240 240 / 240 General: Alert, Oriented x3, Cooperative HEENT: Atraumatic, PERRLA, EOMI, Normocephalic Neck: Supple, No JVD, Negative Carotid Bruits Lungs: Diminished, Wheezes Cardiovascular: Regular rate, No murmurs Abdomen: Bowel Sounds Present, Soft, Non Tender Extremities: No edema, Capillary Refill Less than 3 Seconds Skin: No rashes, No breakdown Musculoskeletal: No Tenderness to Palpation of Joints or Extremities Neurological: Cranial nerves II-XII grossly intact Psych/Mental Status: Normal Affect, Appropriate, Alert and oriented to time, place, person, mood and affect Laboratory Results 08/22/19 14:18: Troponin I 0.018 08/22/19 14:18: PT 25.4 H, INR 2.3 08/22/19 14:19: Lactic Acid 3.3 H* 08/22/19 14:19: B-Natriuretic Peptide 224.4 H 08/22/19 20:02: Lactic Acid 3.3 H* 08/23/19 05:31: WBC 7.6, RBC 3.91 L, Hgb 10.8 L, Hct 35.7 L, MCV 91.3, MCH 27.6, MCHC 30.3 L, RDW Std Deviation 58.9 H, RDW Coeff of Laura 17.8 H, Plt Count 212, MPV 11.6, Immature Gran % (Auto) 0.900, Neut % (Auto) 94.6 H, Lymph % (Auto) 3.7 L, [place] % (Auto) 0.8, Eos % (Auto) 0.0, Baso % (Auto) 0.0, Absolute Neuts (auto) 7.2, Absolute Lymphs (auto) 0.28 L, Nucleated RBC % 0, Differential Comment SCANNED 08/23/19 05:31: Sodium 141, Potassium 4.1, Chloride 103, Carbon Dioxide 33.0 H, Anion Gap 5, BUN 25 H, Creatinine 0.68, Estim Creat Clear Calc 47.27, Est GFR (MDRD) Af Amer 108, Est GFR (MDRD) Non-Af 90, BUN/Creatinine Ratio 36.8 H, Glucose 165 H, Calcium 9.1 08/23/19 05:31: PT 22.9 H, INR 2.0 Current Medications Acetaminophen (Tylenol) 650 mg PO Q6H PRN PRN PRN Reason: Pain Score 1-10/Temp > 100.7 F Last Admin: 08/23/19 13:57 Dose: 650 mg Documented by: Albuterol/Ipratropium (Duoneb) 3 ml INHALATION Q4HWA.RT [facility] Last Admin: 08/23/19 11:04 Dose: 3 ml Documented by: Buspirone HCl (Buspar) 7.5 mg PO QHS [facility] Last Admin: 08/22/19 21:26 Dose: 7.5 mg Documented by: Citalopram Hydrobromide (Celexa) 40 mg PO DAILY [facility] Last Admin: 08/23/19 09:17 Dose: 40 mg Documented by: Digoxin (Lanoxin) 250 mcg PO DAILY [facility] Last Admin: 08/23/19 09:17 Dose: 250 mcg Documented by: Diltiazem HCl (Cardizem Cd) 120 mg PO Q12 [facility] Last Admin: 08/23/19 09:18 Dose: 120 mg Documented by: Ergocalciferol (Vitamin D) 50,000 unit PO TH [facility] Ferrous Sulfate (Ferrous Sulfate) 325 mg PO BIDCM [facility] Last Admin: 08/23/19 09:17 Dose: Not Given Documented by: Furosemide (Lasix) 40 mg PO DAILY [facility] Last Admin: 08/23/19 09:17 Dose: 40 mg Documented by: Levofloxacin (Levaquin Tablet) 750 mg PO DAILY [facility] Last Admin: 08/23/19 09:18 Dose: 750 mg Documented by: Magnesium Hydroxide (Milk Of Magnesia) 30 ml PO DAILY PRN PRN Reason: Constipation Last Admin: 08/23/19 11:39 Dose: 30 ml Documented by: Ondansetron HCl (Zofran) 4 mg IV Q8H PRN PRN PRN Reason: NAUSEA/VOMITING Last Admin: 08/23/19 05:22 Dose: 4 mg Documented by: Pantoprazole Sodium (Protonix) 20 mg PO DAILY [facility] Last Admin: 08/23/19 09:17 Dose: 20 mg Documented by: Polyethylene Glycol (Miralax) 17 gm PO DAILY PRN PRN Reason: Constipation Last Admin: 08/23/19 11:39 Dose: 17 gm Documented by: Potassium Chloride (K-Dur) 20 meq PO DAILY [facility] Last Admin: 08/23/19 09:18 Dose: 20 meq Documented by: Prednisone () 40 mg PO DAILY@0800 [facility] Senna/Docusate Sodium (Senokot-S, Caterina-Colace) 2 tablet PO QHS [facility] Last Admin: 08/22/19 21:26 Dose: 2 tablet Documented by: Sodium Chloride () 10 - 40 ml IV UD PRN PRN Reason: SALINE FLUSH Last Admin: 08/23/19 05:22 Dose: 10 ml Documented by: Sucralfate (Carafate) 1 gm PO 1HR_ACHS PRN PRN Reason: GI UPSET Tramadol HCl (Ultram) 50 mg PO BID [facility] Last Admin: 08/23/19 09:20 Dose: 50 mg Documented by: Tramadol HCl (Ultram) 50 mg PO Q6H PRN PRN PRN Reason: Pain Score 4-10/10 Warfarin Sodium (Coumadin (Pbkc)) 3 mg PO MoWeFr@1700 [facility] Warfarin Sodium (Coumadin (Pbkc)) 4 mg PO Kalee@1700 [facility] Last Admin: 08/22/19 19:35 Dose: 4 mg Documented by: STROKE Vital Signs/Narrative: Vital Signs Temp Pulse Resp BP Pulse Ox 08/23/19 14:34 98.3 F 85 18 103/51 L 97 08/23/19 11:04 82 22 H 97 Medical Necessity - Tobacco Use Smoking Status: Former smoker Tobacco Use: Non-smoker Assessment/Plan All Active Problems (Last Reviewed 08/14/19 @ 10:00 by JOSEPH Callahan) Respiratory failure (Acute) Back pain (Acute) Acute and chronic respiratory failure with hypoxia (Acute) Influenzal bronchopneumonia (Acute) Leukocytosis (Acute) Lactic acidosis (Acute) Pneumonia (Acute) Sepsis (Acute) Severe sepsis (Acute) Hospital acquired PNA (Acute) 1. Acute on chronic hypoxic respiratory failure 2/2 COPD exacerbation - improved. plan to transition to PO prednisone taper at DC. 2. CAD - Nonspecific ST changes on EKG - F/u with [facility] regarding outpatient stenting 3. Compression fracture T11- pain improved. ambulating in unit with walker. -continue vit D. Ca++ normal. -Outpatient follow up for bone study. -Pain management consulted. 4. Recent pna - clearing on CXR. complete o/p levaquin. 5. Chronic diastolic CHF, pulmonary HTN - continue home meds. Does not appear to have an acute exacerbation at this time. 6. pAfib - currently in Afib. INR pending. Continue coumadin. Rate mildly tachy. Cotninue Digoxin, Cardizem 7. Hx DVT PE - as per #6. 8. Anx/Depression - ambien, citalopram, buspar 9. ANKUSH - does not use CPAP/BiPAP at home as she has not had her formal sleep study yet. DVT ppx: coumadin DC Planning[facility]. This patient was seen by Kris Pollard PA-C under the supervision of Doctor Conway <Bonifacio Conway - Last Filed: 08/23/19 17:15> Subjective: Breathing well today. Sustained acute low back pain ~1 week ago. No trauma. CT showed T11 compression fracture. Vitals/I&O's: Vital Signs Temp Pulse Resp BP Pulse Ox 36.8 C 89 22 H 103/51 L 98 08/23/19 14:34 08/23/19 16:04 08/23/19 16:04 08/23/19 14:34 08/23/19 16:04 Oxygen Flow Rate (L/min) [ 2 AMBULATION with Oxygen] Oxygen Flow Rate (L/min) [At 2 REST on Room Air] Oxygen Flow Rate (L/min) 2 Oxygen Delivery Method Nasal Cannula Weight: 78.6 kg Body Mass Index (BMI) 27.1 Intake and Output for Last 24 Hours 08/21/19 08/22/19 08/23/19 23:59 23:59 23:59 Intake Total 240 / 240 240 / 240 Balance 240 / 240 240 / 240 General: Alert, Cooperative HEENT: Atraumatic, Normocephalic Neck: Supple, Negative Carotid Bruits Lungs: Diminished, Wheezes Cardiovascular: Regular rate, Regular Rhythm, No murmurs Extremities: No edema Skin: No rashes, No breakdown Laboratory Results 08/22/19 20:02: Lactic Acid 3.3 H* 08/23/19 05:31: WBC 7.6, RBC 3.91 L, Hgb 10.8 L, Hct 35.7 L, MCV 91.3, MCH 27.6, MCHC 30.3 L, RDW Std Deviation 58.9 H, RDW Coeff of Laura 17.8 H, Plt Count 212, MPV 11.6, Immature Gran % (Auto) 0.900, Neut % (Auto) 94.6 H, Lymph % (Auto) 3.7 L, [place] % (Auto) 0.8, Eos % (Auto) 0.0, Baso % (Auto) 0.0, Absolute Neuts (auto) 7.2, Absolute Lymphs (auto) 0.28 L, Nucleated RBC % 0, Differential Comment SCANNED 08/23/19 05:31: Sodium 141, Potassium 4.1, Chloride 103, Carbon Dioxide 33.0 H, Anion Gap 5, BUN 25 H, Creatinine 0.68, Estim Creat Clear Calc 47.27, Est GFR (MDRD) Af Amer 108, Est GFR (MDRD) Non-Af 90, BUN/Creatinine Ratio 36.8 H, Glucose 165 H, Calcium 9.1 08/23/19 05:31: PT 22.9 H, INR 2.0 Current Medications Acetaminophen (Tylenol) 650 mg PO Q6H PRN PRN PRN Reason: Pain Score 1-10/Temp > 100.7 F Last Admin: 08/23/19 13:57 Dose: 650 mg Documented by: Albuterol/Ipratropium (Duoneb) 3 ml INHALATION Q4HWA.RT [facility] Last Admin: 08/23/19 16:04 Dose: 3 ml Documented by: Buspirone HCl (Buspar) 7.5 mg PO QHS [facility] Last Admin: 08/22/19 21:26 Dose: 7.5 mg Documented by: Citalopram Hydrobromide (Celexa) 40 mg PO DAILY [facility] Last Admin: 08/23/19 09:17 Dose: 40 mg Documented by: Digoxin (Lanoxin) 250 mcg PO DAILY [facility] Last Admin: 08/23/19 09:17 Dose: 250 mcg Documented by: Diltiazem HCl (Cardizem Cd) 120 mg PO Q12 [facility] Last Admin: 08/23/19 09:18 Dose: 120 mg Documented by: Ergocalciferol (Vitamin D) 50,000 unit PO TH [facility] Ferrous Sulfate (Ferrous Sulfate) 325 mg PO BIDCM [facility] Last Admin: 08/23/19 16:27 Dose: Not Given Documented by: Furosemide (Lasix) 40 mg PO DAILY [facility] Last Admin: 08/23/19 09:17 Dose: 40 mg Documented by: Levofloxacin (Levaquin Tablet) 750 mg PO DAILY [facility] Last Admin: 08/23/19 09:18 Dose: 750 mg Documented by: Magnesium Hydroxide (Milk Of Magnesia) 30 ml PO DAILY PRN PRN Reason: Constipation Last Admin: 08/23/19 11:39 Dose: 30 ml Documented by: Ondansetron HCl (Zofran) 4 mg IV Q8H PRN PRN PRN Reason: NAUSEA/VOMITING Last Admin: 08/23/19 05:22 Dose: 4 mg Documented by: Pantoprazole Sodium (Protonix) 20 mg PO DAILY [facility] Last Admin: 08/23/19 09:17 Dose: 20 mg Documented by: Polyethylene Glycol (Miralax) 17 gm PO DAILY PRN PRN Reason: Constipation Last Admin: 08/23/19 11:39 Dose: 17 gm Documented by: Potassium Chloride (K-Dur) 20 meq PO DAILY [facility] Last Admin: 08/23/19 09:18 Dose: 20 meq Documented by: Prednisone () 40 mg PO DAILY@0800 [facility] Senna/Docusate Sodium (Senokot-S, Caterina-Colace) 2 tablet PO QHS [facility] Last Admin: 08/22/19 21:26 Dose: 2 tablet Documented by: Sodium Chloride () 10 - 40 ml IV UD PRN PRN Reason: SALINE FLUSH Last Admin: 08/23/19 05:22 Dose: 10 ml Documented by: Sucralfate (Carafate) 1 gm PO 1HR_ACHS PRN PRN Reason: GI UPSET Tramadol HCl (Ultram) 50 mg PO BID [facility] Last Admin: 08/23/19 09:20 Dose: 50 mg Documented by: Tramadol HCl (Ultram) 50 mg PO Q6H PRN PRN PRN Reason: Pain Score 4-10/10 Warfarin Sodium (Coumadin (Pbkc)) 3 mg PO MoWeFr@1700 [facility] Last Admin: 08/23/19 16:27 Dose: 3 mg Documented by: Warfarin Sodium (Coumadin (Pbkc)) 4 mg PO SuTuThSa@1700 [facility] Last Admin: 08/22/19 19:35 Dose: 4 mg Documented by: STROKE Vital Signs/Narrative: Vital Signs Temp Pulse Resp BP Pulse Ox 08/23/19 16:04 89 22 H 98 08/23/19 14:34 36.8 C 85 18 103/51 L 97 Assessment/Plan Pt seen and examined independently. I agree with the above note by the PA. 1. T11 compression fracture: presumed acute v subacute. Pain mgmt on consult for eval for kyphoplasty. 2. Acute COPD exacerbation: wean steroids. 3. pAfib: continue dig and dilt and warfarin, if procuedure done, then will need to hold warfarin. Code Visit Inpatient E&M: 96434 Subs Hosp L2
--- NOTE | 2019-08-23 19:51 | CON.PCM_ITS ---
Problem List (1) Other intervertebral disc degeneration, lumbar region Status: Chronic (2) Other intervertebral disc degeneration, lumbar region Status: Chronic (3) Spinal stenosis, lumbar region with neurogenic claudication Status: Acute (4) Spinal stenosis, lumbar region with neurogenic claudication Status: Chronic (5) Spondylosis without myelopathy or radiculopathy, lumbar region Status: Acute (6) Lumbago with sciatica, right side Status: Acute (7) Lumbago with sciatica, right side Status: Acute (8) Inflammation of right sacroiliac joint Status: Acute (9) Inflammation of right sacroiliac joint Status: Acute (10) Generalized muscle ache Status: Acute (11) Generalized muscle ache Status: Acute (12) Unspecified abnormalities of gait and mobility Status: Acute (13) Unspecified abnormalities of gait and mobility Status: Acute (14) Compression fracture of thoracic vertebra with routine healing Status: Chronic Qualifiers: Thoracic vertebra fracture level: T11 Qualified Code(s): S22.080D - Wedge compression fracture of T11-T12 vertebra, subsequent encounter for fracture with routine healing (15) Compression fracture of thoracic vertebra with routine healing Status: Chronic Qualifiers: Thoracic vertebra fracture level: T11 Qualified Code(s): S22.080D - Wedge compression fracture of T11-T12 vertebra, subsequent encounter for fracture with routine healing (16) Back pain Status: Acute Qualifiers: Chronicity: acute Back pain laterality: right Sciatica presence: with sciatica Sciatica laterality: sciatica of right side Reason for Consult Date of Consultation: 08/23/19 Reason for Consultation: Management of patient severe back pain exacerbation History of Present Illness: The patient is a 73 year old F patient was admitted to the hospital with to complain including generalized fatigue, shortness of breath and back pain. Patient has known complicated medical history with her heart disease, heart failure, severe COPD, she has also A. fib. Patient been complaining of generalized weakness at the skilled nursing, she has complained of severe intractable right lower back pain, not able to participate in therapy and in spite of her trying several times, she has not been able to manage the pain in spite of starting her on tramadol 50 mg twice daily however she is was not sure he was taking her pain medication. As patient came to the hospital she was found that her hemoglobin was slightly low due to anemia however Coumadin was given to her and her INR was up to 5, she was given CAT scan of the lumbar spine for fear of retroperitoneal hematoma. Her CAT scan of the lumbar spine showed fracture at the T11 which seem to be remote to me however she has more findings of severe intractable right lower back pain due to degenerative changes and multi-origin of spinal stenosis which could be also radiating pain from the thoracic or lumbar spine. Patient was received prednisone, she reported her condition much improved as well as started on her pain treatment with Ultram she is reporting she is much better also in terms of her breathing also the swelling in the lower extremity has much reduced. I was consulted to come evaluate the patient and provide her options for care. [] Past Medical History Past Medical History (Chronic Problems): Chronic Problems (Last Reviewed 08/14/19 @ 10:00 by Eveline Jason NP-Kimberly) Compression fracture (Chronic) Other intervertebral disc degeneration, 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, lumbar region (Chronic) Spinal stenosis, lumbar region with neurogenic claudication (Chronic) Compression fracture of thoracic vertebra with routine healing (Chronic) Compression fracture of thoracic vertebra with routine healing (Chronic) ANKUSH (obstructive sleep apnea) (Chronic) Diastolic dysfunction (Chronic) Chronic hypoxemic respiratory failure (Chronic) Chronic anticoagulation (Chronic) Former tobacco use (Chronic) Depression (Chronic) Pulmonary hypertension (Chronic) History of recurrent deep vein thrombosis (DVT) (Chronic) History of pulmonary embolism (Chronic) History of cardioversion (Chronic) January of 2018.....HR not controlled with exertion while in AF on Beta donna and cardizem. Converted to NSR with cardioversion Paroxysmal atrial fibrillation (Chronic) DCCV on 01/31/2018; HTN (hypertension) (Chronic) Iron deficiency anemia (Chronic) Chronic diastolic CHF (congestive heart failure) (Chronic) Acute exacerbation of CHF (congestive heart failure) (Chronic) Atrial fibrillation with RVR (Chronic) Dyslipidemia (Chronic) COPD (chronic obstructive pulmonary disease) (Chronic) Medical History: Medical History (Last Reviewed 08/14/19 @ 10:00 by JOSEPH Callahan) Dyslipidemia (Chronic) E78.5 COPD (chronic obstructive pulmonary disease) (Chronic) J44.9 Atrial fibrillation I48.91 Heart failure with preserved ejection fraction I50.30 Group 2. EF 65% 12/05/17 Essential hypertension I10 History of DVT (deep vein thrombosis) Z86.718 History of pulmonary embolus (PE) Z86.711 Pulmonary HTN I27.20 Venous insufficiency I87.2 Allergies amlodipine besylate [From [facility]] Adverse Reaction (Verified 08/22/19 11:46) ANKLE AND LEG EDEMA RESOLVED OFF MED-PER PCP PAPERWORK codeine Adverse Reaction (Verified 08/22/19 11:46) MENTAL STATUS CHANGE lisinopril Adverse Reaction (Verified 08/22/19 11:46) COUGH Home Medications: Ambulatory Orders Medication Instructions Recorded Ergocalciferol [Vitamin D] 50,000 unit PO TH 07/19/15 Warfarin Sodium 4 mg PO SUTUTHSA 03/08/18 Citalopram Hydrobromide 40 mg PO DAILY 05/23/18 [Citalopram HBr] Budesonide 2 ml IH BID 01/17/19 Omeprazole 20 mg PO DAILY 01/17/19 Sucralfate [Carafate] 1 gm PO Q6H PRN PRN 01/17/19 Vit A/Vit C/Vit E/Zinc/Copper 1 ea PO BID 01/17/19 [Preservision Areds Tablet] Warfarin [Coumadin] 3 mg PO MOWEFR 01/17/19 Buspirone HCl 7.5 mg PO QHS 05/07/19 Acetaminophen [Tylenol Tablet] 1,000 mg PO Q6H PRN PRN 07/12/19 Cyanocobalamin (Vitamin B-12) 500 mcg PO DAILY@0800 07/12/19 [Vitamin B-12] Polyethylene Glycol 3350 17 gm PO DAILY 07/12/19 Potassium Chloride 20 meq PO DAILY #0 08/10/19 Zolpidem Tartrate [Ambien] 5 mg PO QHS PRN PRN 5 Days #5 tab 08/10/19 Bisacodyl [Gentle Laxative] 10 mg TN DAILY PRN PRN 08/22/19 Digoxin [Lanoxin] 250 mcg PO DAILY 08/22/19 Diltiazem CD [Cardizem CD] 120 mg PO Q12 08/22/19 Ferrous Sulfate 325 mg PO BIDCM 08/22/19 Furosemide [Lasix] 40 mg PO DAILY 08/22/19 Lactobacillus Acidophilus 1 ea PO DAILY 08/22/19 [Acidophilus] Levofloxacin [Levaquin] 750 mg PO DAILY 08/22/19 Lidocaine HCl [Aspercreme] 1 applic TP QHS 08/22/19 Prednisone 10 mg PO DAILY 08/22/19 Sennosides/Docusate Sodium [Senna 2 tab PO QHS 08/22/19 Plus 8.6-50 mg Tablet] traMADol [Ultram (G)] 50 mg PO BID 08/22/19 traMADol [Ultram (G)] 50 mg PO Q6H PRN PRN 08/22/19 Surgical History: Surgical History (Last Reviewed 08/14/19 @ 10:00 by JOSEPH Callahan) History of cholecystectomy Z90.49 History of total hysterectomy Z90.710 tailbone surgery Surgical History: cholecystectomy, hysterectomy, - - tailbone surgery. 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 Paternal Family History: Family History (Last Reviewed 08/14/19 @ 10:00 by JOSEPH Callahan) Sister Heart disease History Items: - Sibling Family History: Family History (Last Reviewed 08/14/19 @ 10:00 by JOSEPH Callahan) Sister Heart disease History Items: - - Patient notes a sibling specifically her sister with Parkinson's disease and heart disease as well as a brother with Parkinson's disease, asthma and history of blood clots. Review of Systems Constitutional: Reports: Weakness, Weight Change, Fatigue Eyes: Reports: - - Normal HEENT: Denies: Head Aches, Sinus Congestion, Sinus Drainage Cardiovascular: Reports: Orthopnea Respiratory: Reports: Shortness of Breath, Wheezing Gastrointestinal: Denies: Abdominal Pain, Nausea, Vomiting Genitourinary: Reports: Frequency. Denies: Dysuria Musculoskeletal: Reports: Back Pain, Joint stiffness, Leg Pain, Muscle pain Skin: Reports: Dryness - Multiple skin bruising due to being on Coumadin Psychiatric: Denies: Depression, Homicidal Ideations, Suicidal Ideations Hematologic/ Lymphatic: Reports: Easy Bleeding Patient Problems: Active and Suspected Problems (Last Reviewed 08/14/19 @ 10:00 by Eveline Jason, HOME HEALTH ADMINISTRATOR-C) Respiratory failure (Acute) Back pain (Acute) Acute and chronic respiratory failure with hypoxia (Acute) Spinal stenosis, lumbar region with neurogenic claudication (Acute) Spondylosis without myelopathy or radiculopathy, lumbar region (Acute) Lumbago with sciatica, right side (Acute) Lumbago with sciatica, right side (Acute) Inflammation of right sacroiliac joint (Acute) Inflammation of right sacroiliac joint (Acute) Generalized muscle ache (Acute) Generalized muscle ache (Acute) Unspecified abnormalities of gait and mobility (Acute) Unspecified abnormalities of gait and mobility (Acute) Lactic acidosis (Acute) Subjective: Patient was acceptable for the examination she participated and was cooperative Objective: Patient was laying on the bed, accompanied by her daughter, she seemed to be very pleasant, alert oriented cooperative no distress - Physical Exam Vitals/I&O's: Vital Signs Temp Pulse Resp BP Pulse Ox 98.3 F 90 22 H 103/51 L 98 08/23/19 14:34 08/23/19 19:00 08/23/19 16:04 08/23/19 14:34 08/23/19 16:04 Oxygen Flow Rate (L/min) [ 2 AMBULATION with Oxygen] Oxygen Flow Rate (L/min) [At 2 REST on Room Air] Oxygen Flow Rate (L/min) 2 Oxygen Delivery Method Nasal Cannula Weight: 78.6 kg Body Mass Index (BMI) 27.1 Intake and Output for Last 24 Hours 08/21/19 08/22/19 08/23/19 23:59 23:59 23:59 Intake Total 240 / 240 240 / 240 Balance 240 / 240 240 / 240 General: Alert, Oriented x3, Cooperative, No apparent distress, Well developed, Lethargic HEENT: Atraumatic, PERRLA, EOMI, Normocephalic Neck: Supple, No JVD, Negative Carotid Bruits Lungs: Short of Breath, Wheezes Cardiovascular: Irregular Rate Abdomen: Bowel Sounds Present, Soft, Non Tender Extremities: Edema Skin: - - Multiple skin bruising noted Musculoskeletal: Arthritic Changes, Muscle Wasting, Tenderness, - - Lumbar spine exam reveals tenderness across the bilateral lumbar facet area, tenderness across the right more than the left lumbar facet region Lymphatic: No Cervical, Supraclavicular, or Inguinal Adenopathy, Cervical Adenopathy Neurological: Cranial nerves II-XII grossly intact, Motor Exam 5/5 strength throughout - Motor exam seem 4/5 bilateral lower extremity equal Cordination is poor still need assistance with gait, using walker Psych/Mental Status: Normal Affect, Appropriate, Anxious Comment: CT scan reviewed Laboratory Results 08/22/19 20:02: Lactic Acid 3.3 H* 08/23/19 05:31: WBC 7.6, RBC 3.91 L, Hgb 10.8 L, Hct 35.7 L, MCV 91.3, MCH 27.6, MCHC 30.3 L, RDW Std Deviation 58.9 H, RDW Coeff of Laura 17.8 H, Plt Count 212, MPV 11.6, Immature Gran % (Auto) 0.900, Neut % (Auto) 94.6 H, Lymph % (Auto) 3.7 L, [place] % (Auto) 0.8, Eos % (Auto) 0.0, Baso % (Auto) 0.0, Absolute Neuts (auto) 7.2, Absolute Lymphs (auto) 0.28 L, Nucleated RBC % 0, Differential Comment SCANNED 08/23/19 05:31: Sodium 141, Potassium 4.1, Chloride 103, Carbon Dioxide 33.0 H, Anion Gap 5, BUN 25 H, Creatinine 0.68, Estim Creat Clear Calc 47.27, Est GFR (MDRD) Af Amer 108, Est GFR (MDRD) Non-Af 90, BUN/Creatinine Ratio 36.8 H, Glucose 165 H, Calcium 9.1 08/23/19 05:31: PT 22.9 H, INR 2.0 Current Medications Acetaminophen (Tylenol) 650 mg PO Q6H PRN PRN PRN Reason: Pain Score 1-10/Temp > 100.7 F Last Admin: 08/23/19 13:57 Dose: 650 mg Documented by: Albuterol/Ipratropium (Duoneb) 3 ml INHALATION Q4HWA.RT [facility] Last Admin: 08/23/19 16:04 Dose: 3 ml Documented by: Buspirone HCl (Buspar) 7.5 mg PO QHS [facility] Last Admin: 08/22/19 21:26 Dose: 7.5 mg Documented by: Citalopram Hydrobromide (Celexa) 40 mg PO DAILY [facility] Last Admin: 08/23/19 09:17 Dose: 40 mg Documented by: Digoxin (Lanoxin) 250 mcg PO DAILY [facility] Last Admin: 08/23/19 09:17 Dose: 250 mcg Documented by: Diltiazem HCl (Cardizem Cd) 120 mg PO Q12 [facility] Last Admin: 08/23/19 09:18 Dose: 120 mg Documented by: Ergocalciferol (Vitamin D) 50,000 unit PO TH [facility] Ferrous Sulfate (Ferrous Sulfate) 325 mg PO BIDCM [facility] Last Admin: 08/23/19 16:27 Dose: Not Given Documented by: Furosemide (Lasix) 40 mg PO DAILY [facility] Last Admin: 08/23/19 09:17 Dose: 40 mg Documented by: Levofloxacin (Levaquin Tablet) 750 mg PO DAILY [facility] Last Admin: 08/23/19 09:18 Dose: 750 mg Documented by: Lidocaine (Lidoderm Patch) 3 patch TOPICAL DAILY [facility]; Protocol Magnesium Hydroxide (Milk Of Magnesia) 30 ml PO DAILY PRN PRN Reason: Constipation Last Admin: 08/23/19 11:39 Dose: 30 ml Documented by: Ondansetron HCl (Zofran) 4 mg IV Q8H PRN PRN PRN Reason: NAUSEA/VOMITING Last Admin: 08/23/19 05:22 Dose: 4 mg Documented by: Pantoprazole Sodium (Protonix) 20 mg PO DAILY [facility] Last Admin: 08/23/19 09:17 Dose: 20 mg Documented by: Polyethylene Glycol (Miralax) 17 gm PO DAILY PRN PRN Reason: Constipation Last Admin: 08/23/19 11:39 Dose: 17 gm Documented by: Potassium Chloride (K-Dur) 20 meq PO DAILY [facility] Last Admin: 08/23/19 09:18 Dose: 20 meq Documented by: Prednisone () 40 mg PO DAILY@0800 [facility] Senna/Docusate Sodium (Senokot-S, Caterina-Colace) 2 tablet PO QHS [facility] Last Admin: 08/22/19 21:26 Dose: 2 tablet Documented by: Sodium Chloride () 10 - 40 ml IV UD PRN PRN Reason: SALINE FLUSH Last Admin: 08/23/19 05:22 Dose: 10 ml Documented by: Sucralfate (Carafate) 1 gm PO 1HR_ACHS PRN PRN Reason: GI UPSET Tramadol HCl (Ultram) 50 mg PO BID [facility] Last Admin: 08/23/19 09:20 Dose: 50 mg Documented by: Tramadol HCl (Ultram) 50 mg PO Q6H PRN PRN PRN Reason: Pain Score 4-10 Warfarin Sodium (Coumadin (Pbkc)) 3 mg PO MoWeFr@1700 [facility] Last Admin: 08/23/19 16:27 Dose: 3 mg Documented by: Warfarin Sodium (Coumadin (Pbkc)) 4 mg PO SuTuThSa@1700 [facility] Last Admin: 08/22/19 19:35 Dose: 4 mg Documented by: Assessment/Plan All Active Problems (Last Reviewed 08/14/19 @ 10:00 by Eveline Jason, HOME HEALTH ADMINISTRATOR-C) Respiratory failure (Acute) Back pain (Acute) Acute and chronic respiratory failure with hypoxia (Acute) Spinal stenosis, lumbar region with neurogenic claudication (Acute) Spondylosis without myelopathy or radiculopathy, lumbar region (Acute) Lumbago with sciatica, right side (Acute) Lumbago with sciatica, right side (Acute) Inflammation of right sacroiliac joint (Acute) Inflammation of right sacroiliac joint (Acute) Generalized muscle ache (Acute) Generalized muscle ache (Acute) Unspecified abnormalities of gait and mobility (Acute) Unspecified abnormalities of gait and mobility (Acute) Influenzal bronchopneumonia (Acute) Leukocytosis (Acute) Lactic acidosis (Acute) Pneumonia (Acute) Sepsis (Acute) Severe sepsis (Acute) Hospital acquired PNA (Acute) CAT scan lumbar spine reviewed, she has complete T11 collapse which seem to be remote, she has also mild degree of disc space narrowing with facet arthritis involving from the L2-3, to the L3-4, moderate space narrowing and facet arthropathy and foraminal narrowing at multiple levels. 73 years old female who is experiencing acute exacerbation of chronic thoracolumbar degenerative changes, I have reviewed CAT scan findings, correlated with patient presentation and also discussed options with care to the patient and her daughter. At this point seem to be much improving especially after started on the prednisone which seem to be working well as an anti-inflammatory since she cannot receive any nonsteroidal anti-inflammatory at this time, she has had been on Coumadin and have high INR level and nonsteroidal is contraindicated. I have presented varieties of option to the patient and included the following: I agree with the current treatment plan between the Tylenol 650 to 1 g scheduled 2 or 3 times daily in addition also the Ultram which seems to be controlling her pain and is not strong narcotic that can interfere with cognitive function. I will continue to continue on the Ultram as an outpatient for 50 mg 3 times daily scheduled and use of Tylenol for the breakthrough instead. Avoid all membrane stabilizer, however I recommend nighttime dose of gabapentin 100 mg to 200 mg only at nighttime to help with the radicular neuropathic pain component . I have discussed application of lidocaine 5% patches which provide topical a nalgesia also decrease the use of centrally acting painkillers. I have recommended start using muscle relaxant Robaxin 500 g every 6 hours as needed which is peripherally acting and should not interfere with patient cognition however I advised to use only at night and after therapy. \I have recommended lumbar support back brace, prescription was given to the patient, it will provide support and prevent excessive movement of the lumbar spine and helping patient to be more ambulating and strengthen her lower extremity and prevent muscle wasting from lack of movement due to pain. I have also presented options for the patient to see be seen in the office as an outpatient to discuss lumbar facets injection, it would be hard to provide the patient with any epidural however lumbar facets would be a good option to provide her with lumbar facet injection to the right side, I have given the patient contact information for either myself or Dr. Martinez to come to the pain management office to continue care while being at the skilled nursing if she has recurrent event. I have expressed the importance of physical therapy for the patient I have recommended to use heating pad 3 times a day for half hour interval and to avoid using cold therapy The patient comorbidity I will doubt for surgical options Please all the orders for the muscle relaxant, gabapentin 800 mg at night, back brace, lidocaine patches, discussed orders to continue at skilled nursing. Discussed treatment plan, risks benefits alternatives of treatment discussed with patient and agreed to see the patient as an outpatient if necessary.
[2019-08-23] MEDS: busPIRone 15 MG TABLET 7.5 MG PO (22:13)
[2019-08-23] MEDS: Gabapentin 100 MG Capsule PO (22:13)
[2019-08-23] MEDS: Methocarbamol 500 MG Tablet PO (22:14)
[2019-08-23] MEDS: Senna/Docusate Sodium 1 Tablet 2 TABLET PO (22:14)
[2019-08-24] VITALS (9 sets, daily range): BP systolic 100–110; BP diastolic 53–61; PULSE 77–88; RESP 16–18; TEMP 36.7; O2SAT 98–100
[2019-08-24] MEDS: Lidocaine 5% Patch 3 PATCH TOPICAL (05:11)
[2019-08-24 07:03] LABS: International Normalized Ratio 2.9; Prothrombin Time (Protime)PT. 30.8 SECONDS (11.7-14.9)
[2019-08-24] MEDS: Ipratropium/Albuterol Sulfate 3 ML AMPUL.NEB INHALATION ×3 (07:21→15:01)
[2019-08-24] MEDS: Ferrous Sulfate 325 MG Tablet PO (08:54)
[2019-08-24] MEDS: predniSONE 20 MG Tablet 40 MG PO (08:54)
[2019-08-24] MEDS: Pantoprazole Sodium 20 MG Tablet PO (09:05)
[2019-08-24] MEDS: Furosemide 40 MG Tablet PO (09:05)
[2019-08-24] MEDS: Digoxin 250 MCG Tablet PO (09:05)
[2019-08-24] MEDS: dilTIAZem CD 120 MG Capsule PO (09:05)
[2019-08-24] MEDS: levoFLOXacin 750 MG Tablet PO (09:05)
[2019-08-24] MEDS: Citalopram 40 MG TABLET PO (09:05)
[2019-08-24] MEDS: traMADol 50 MG Tablet PO (09:07)
--- NOTE | 2019-08-24 13:42 | PCM.EXTCARCO ---
- Diet 08/22/19 16:58 Diet: Cardiac/Low Cholesterol Food consistency:: Regular Liquid Consistency:: Regular/Thin - Routine Orders/Code Status Suppository Type: Dulcolax 10mg Suppository Frequency: Daily PRN O2 Frequency: Continuous Keep PO Greater than or Equal to (%): 89 Routine Lab Work: CBC - 5 days, BMP - 5 days Code Status: Full Code - Therapies Physical Therapy: Eval and Treat Occupational Therapy: Eval and Treat - Problem/Diagnosis (1) Acute and chronic respiratory failure with hypoxia Status: Acute Current Visit: Yes (2) Compression fracture Status: Chronic Current Visit: Yes (3) ANKUSH (obstructive sleep apnea) Status: Chronic Current Visit: No (4) Former tobacco use Status: Chronic Current Visit: No (5) Depression Status: Chronic Current Visit: No (6) Pulmonary hypertension Status: Chronic Current Visit: No (7) History of recurrent deep vein thrombosis (DVT) Status: Chronic Current Visit: No (8) History of pulmonary embolism Status: Chronic Current Visit: No (9) Paroxysmal atrial fibrillation Status: Chronic Comment: DCCV on 01/31/2018; Current Visit: No (10) HTN (hypertension) Status: Chronic Current Visit: No (11) Acute exacerbation of CHF (congestive heart failure) Status: Chronic Current Visit: No (12) Dyslipidemia Status: Chronic Current Visit: No (13) COPD (chronic obstructive pulmonary disease) Status: Chronic Current Visit: No - Allergies/Procedures Done in Hospital Allergies/Adverse Reactions: Allergies amlodipine besylate [From [facility]] Adverse Reaction (Verified 08/22/19 11:46) ANKLE AND LEG EDEMA RESOLVED OFF MED-PER PCP PAPERWORK codeine Adverse Reaction (Verified 08/22/19 11:46) MENTAL STATUS CHANGE lisinopril Adverse Reaction (Verified 08/22/19 11:46) COUGH - Type of Care/Length of Stay Estimated LOS: Convalescent Care Less Than 30 days Type of Care Needed: Intermediate Rehab Potential: Fair Prognosis: Fair - Additional Orders/Day of Discharge Day of Discharge: 08/24/19 - Dietary and Speech Recommendations Dietitian Recommendations/Changes: Continue cardiac/low chol diet. - Follow Up Care Primary Care Physician: Tor Lucia MD [Primary Care Provider] - Please follow up with your Primary Care Physician in: 1-2 weeks Please Follow Up With: Dafne Torres MD When: 1-2 weeks Please Follow Up With: Eveline Jason NP-C When: 2 weeks
--- NOTE | 2019-08-24 14:04 | PCM.DC.SUM ---
<Kris Pollard - Last Filed: 08/24/19 14:04> Discharge Date and Diagnosis - Problem List Patient Problems: Active and Suspected Problems (Last Reviewed 08/14/19 @ 10:00 by Eveline Jason NP-C) Respiratory failure (Acute) Back pain (Acute) Acute and chronic respiratory failure with hypoxia (Acute) Spinal stenosis, lumbar region with neurogenic claudication (Acute) Spondylosis without myelopathy or radiculopathy, lumbar region (Acute) Lumbago with sciatica, right side (Acute) Lumbago with sciatica, right side (Acute) Inflammation of right sacroiliac joint (Acute) Inflammation of right sacroiliac joint (Acute) Generalized muscle ache (Acute) Generalized muscle ache (Acute) Unspecified abnormalities of gait and mobility (Acute) Unspecified abnormalities of gait and mobility (Acute) Lactic acidosis (Acute) Date of Admission: 08/22/19 Date of Discharge: 08/24/19 - Primary Discharge Diagnosis Active and Suspected Problems (Last Reviewed 08/14/19 @ 10:00 by Eveline Jason NP-C) Acute on chronic hypoxic resp failure 2/2 COPD exacerbation Intractable back pain with inability to walk 2/2 thoracic compression fx, T11 - Secondary Discharge Diagnosis Chronic Problems (Last Reviewed 08/14/19 @ 10:00 by Eveline Jason NP-C) Compression fracture (Chronic) Other intervertebral disc degeneration, 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, lumbar region (Chronic) Spinal stenosis, lumbar region with neurogenic claudication (Chronic) Compression fracture of thoracic vertebra with routine healing (Chronic) Compression fracture of thoracic vertebra with routine healing (Chronic) ANKUSH (obstructive sleep apnea) (Chronic) Diastolic dysfunction (Chronic) Chronic hypoxemic respiratory failure (Chronic) Chronic anticoagulation (Chronic) Former tobacco use (Chronic) Depression (Chronic) Pulmonary hypertension (Chronic) History of recurrent deep vein thrombosis (DVT) (Chronic) History of pulmonary embolism (Chronic) History of cardioversion (Chronic) January of 2018.....HR not controlled with exertion while in AF on Beta donna and cardizem. Converted to NSR with cardioversion Paroxysmal atrial fibrillation (Chronic) [facility] on 01/31/2018; HTN (hypertension) (Chronic) Iron deficiency anemia (Chronic) Chronic diastolic CHF (congestive heart failure) (Chronic) Acute exacerbation of CHF (congestive heart failure) (Chronic) Atrial fibrillation with RVR (Chronic) Dyslipidemia (Chronic) COPD (chronic obstructive pulmonary disease) (Chronic) Hospital Course and Treatment Imaging Results: IMAGING: CT/Abdomen/Pelvis without Cont IMPRESSION: Scarring and/or atelectasis at the left lung base. Moderate amount of fecal material in the right hemicolon. Sigmoid diverticula. Almost complete collapse of the T11 vertebrae. CT/Spine Lumbar without Contrast IMPRESSION: Multilevel degenerative changes, as described above. Almost complete collapse of the T11 vertebrae. CT/CTA Abdomen W/WO Contrast IMPRESSION: Normal CTA chest examination, without a demonstrated pulmonary embolism or arterial dissection. COPD. CT/CTA Chest W/WO Contrast IMPRESSION: Normal CTA chest examination, without a demonstrated pulmonary embolism or arterial dissection. COPD. Consults: Pain Management - Brian Operations: None Procedures: None Summary of Care Provided: Hospital course: The patient is a 73 year old F with pmhx as above who presented to the ER with c/o back pain. She had back pain for approximately a week, that was sudden onset, however with no inciting trauma. It had worsened and she was unable to walk at the nursing facility. She was sent to the ER for this. After arriving in the emergency room she became very dyspneic, wheezy, and was placed on BiPAP. She was admitted for acute COPD exacerbation. CT of the chest showed COPD, no PE. CT also demonstrated T11 compression fracture. She was given steroids and aerosols, continue BiPAP treatment which she does not normally use. Pain management, PT and OT were consulted for her thoracic compression fracture and severe pain with inability to walk. The following morning therapy was able to get her up and walker within the unit. She was seen by the animated cartoons painter and recommendations were made including gabapentin, Ultram, Robaxin, lidocaine patches, and K pad. The patient did not want the gabapentin. The others were continued. Her shortness of breath had improved and she remained stable on her baseline oxygen. We recommend she continue a prednisone burst, continue aerosols as previously used. She will need follow-up with animated cartoons painter in 1 to 2 weeks, follow-up with her PCP in 1 to 2 weeks, and follow-up with pulmonary medicine in 2 weeks. Patient was discharged back to residential in stable condition. This patient was seen by Kris Pollard PA-C under the supervision of Doctor Zoraida.] Patient Problems: Active and Suspected Problems (Last Reviewed 08/14/19 @ 10:00 by JOSEPH Callahan) Respiratory failure (Acute) Back pain (Acute) Acute and chronic respiratory failure with hypoxia (Acute) Spinal stenosis, lumbar region with neurogenic claudication (Acute) Spondylosis without myelopathy or radiculopathy, lumbar region (Acute) Lumbago with sciatica, right side (Acute) Lumbago with sciatica, right side (Acute) Inflammation of right sacroiliac joint (Acute) Inflammation of right sacroiliac joint (Acute) Generalized muscle ache (Acute) Generalized muscle ache (Acute) Unspecified abnormalities of gait and mobility (Acute) Unspecified abnormalities of gait and mobility (Acute) Lactic acidosis (Acute) - Physical Exam Vitals/I&O's: Vital Signs Temp Pulse Resp BP Pulse Ox 98.1 F 88 18 110/53 L 100 08/24/19 13:51 08/24/19 13:51 08/24/19 13:51 08/24/19 13:51 08/24/19 13:51 Oxygen Flow Rate (L/min) [ 2 AMBULATION with Oxygen] Oxygen Flow Rate (L/min) [At 2 REST on Room Air] Oxygen Flow Rate (L/min) 2 Oxygen Delivery Method Nasal Cannula Weight: 173 lb 4.533 oz Body Mass Index (BMI) 27.1 Intake and Output for Last 24 Hours 08/22/19 08/23/19 08/24/19 23:59 23:59 23:59 Intake Total 240 / 240 480 / 480 240 / 240 Output Total 100 / 100 100 / 100 Balance 240 / 240 380 / 380 140 / 140 General: Alert, Oriented x3, Cooperative HEENT: Atraumatic, PERRLA, EOMI, Normocephalic Neck: Supple, No JVD, Negative Carotid Bruits Lungs: Clear to auscultation, No rales Cardiovascular: Regular rate, No murmurs Abdomen: Bowel Sounds Present, Soft, Non Tender Extremities: No edema, Capillary Refill Less than 3 Seconds Skin: No rashes, No breakdown Musculoskeletal: No Tenderness to Palpation of Joints or Extremities Neurological: Cranial nerves II-XII grossly intact Psych/Mental Status: Normal Affect, Appropriate Laboratory Results 08/24/19 06:18: PT 30.8 H, INR 2.9 Current Medications Acetaminophen (Tylenol) 650 mg PO Q6H PRN PRN PRN Reason: Pain Score 1-10/Temp > 100.7 F Last Admin: 08/23/19 13:57 Dose: 650 mg Documented by: Albuterol/Ipratropium (Duoneb) 3 ml INHALATION Q4HWA.RT [facility] Last Admin: 08/24/19 11:44 Dose: 3 ml Documented by: Buspirone HCl (Buspar) 7.5 mg PO QHS [facility] Last Admin: 08/23/19 22:13 Dose: 7.5 mg Documented by: Citalopram Hydrobromide (Celexa) 40 mg PO DAILY [facility] Last Admin: 08/24/19 09:05 Dose: 40 mg Documented by: Digoxin (Lanoxin) 250 mcg PO DAILY [facility] Last Admin: 08/24/19 09:05 Dose: 250 mcg Documented by: Diltiazem HCl (Cardizem Cd) 120 mg PO Q12 [facility] Last Admin: 08/24/19 09:05 Dose: 120 mg Documented by: Ergocalciferol (Vitamin D) 50,000 unit PO TH [facility] Ferrous Sulfate (Ferrous Sulfate) 325 mg PO BIDCM [facility] Last Admin: 08/24/19 08:54 Dose: 325 mg Documented by: Furosemide (Lasix) 40 mg PO DAILY [facility] Last Admin: 08/24/19 09:05 Dose: 40 mg Documented by: Gabapentin (Neurontin) 100 mg PO QHS [facility] Last Admin: 08/23/19 22:13 Dose: 100 mg Documented by: Levofloxacin (Levaquin Tablet) 750 mg PO DAILY [facility] Last Admin: 08/24/19 09:05 Dose: 750 mg Documented by: Lidocaine (Lidoderm Patch) 3 patch TOPICAL DAILY@0600 [facility]; Protocol Last Admin: 08/24/19 05:11 Dose: 1 patch Documented by: Magnesium Hydroxide (Milk Of Magnesia) 30 ml PO DAILY PRN PRN Reason: Constipation Last Admin: 08/23/19 11:39 Dose: 30 ml Documented by: Methocarbamol (Robaxin) 500 mg PO TID PRN PRN Reason: MUSCLE SPASM Last Admin: 08/23/19 22:14 Dose: 500 mg Documented by: Ondansetron HCl (Zofran) 4 mg IV Q8H PRN PRN PRN Reason: NAUSEA/VOMITING Last Admin: 08/23/19 05:22 Dose: 4 mg Documented by: Pantoprazole Sodium (Protonix) 20 mg PO DAILY [facility] Last Admin: 08/24/19 09:05 Dose: 20 mg Documented by: Polyethylene Glycol (Miralax) 17 gm PO DAILY PRN PRN Reason: Constipation Last Admin: 08/23/19 11:39 Dose: 17 gm Documented by: Potassium Chloride (K-Dur) 20 meq PO DAILY [facility] Last Admin: 08/24/19 09:05 Dose: 20 meq Documented by: Prednisone () 40 mg PO DAILY@0800 [facility] Last Admin: 08/24/19 08:54 Dose: 40 mg Documented by: Senna/Docusate Sodium (Senokot-S, Caterina-Colace) 2 tablet PO QHS [facility] Last Admin: 08/23/19 22:14 Dose: 2 tablet Documented by: Sodium Chloride () 10 - 40 ml IV UD PRN PRN Reason: SALINE FLUSH Last Admin: 08/23/19 05:22 Dose: 10 ml Documented by: Sucralfate (Carafate) 1 gm PO 1HR_ACHS PRN PRN Reason: GI UPSET Tramadol HCl (Ultram) 50 mg PO BID [facility] Last Admin: 08/24/19 09:07 Dose: 50 mg Documented by: Tramadol HCl (Ultram) 50 mg PO Q6H PRN PRN PRN Reason: Pain Score 4-10/10 Warfarin Sodium (Coumadin (Pbkc)) 3 mg PO MoWeFr@1700 [facility] Last Admin: 08/23/19 16:27 Dose: 3 mg Documented by: Warfarin Sodium (Coumadin (Pbkc)) 4 mg PO SuTuThSa@1700 [facility] Last Admin: 08/22/19 19:35 Dose: 4 mg Documented by: Discharge Diet: Low fat/ Low Cholesterol, 2000 mg Sodium Diet Discharge Activity: Return to Normal Activity Home Medications: Medications to take at Discharge Ergocalciferol [Vitamin D] 50,000 unit PO TH 07/19/15 Warfarin Sodium 4 mg PO SUTUTHSA 03/08/18 Citalopram Hydrobromide [Citalopram HBr] 40 mg PO DAILY 05/23/18 Budesonide 2 ml IH BID 01/17/19 Omeprazole 20 mg PO DAILY 01/17/19 Sucralfate [Carafate] 1 gm PO Q6H PRN PRN 01/17/19 Vit A/Vit C/Vit E/Zinc/Copper [Preservision Areds Tablet] 1 ea PO BID 01/17/19 Warfarin [Coumadin] 3 mg PO MOWEFR 01/17/19 Buspirone HCl 7.5 mg PO QHS 05/07/19 Cyanocobalamin (Vitamin B-12) [Vitamin B-12] 500 mcg PO DAILY@0800 07/12/19 Polyethylene Glycol 3350 17 gm PO DAILY 07/12/19 Potassium Chloride 20 meq PO DAILY #0 08/10/19 Zolpidem Tartrate [Ambien] 5 mg PO QHS PRN PRN 5 Days #5 tab 08/10/19 Bisacodyl [Gentle Laxative] 10 mg MD DAILY PRN PRN 08/22/19 Digoxin [Lanoxin] 250 mcg PO DAILY 08/22/19 Diltiazem CD [Cardizem CD] 120 mg PO Q12 08/22/19 Furosemide [Lasix] 40 mg PO DAILY 08/22/19 Lactobacillus Acidophilus [Acidophilus] 1 ea PO DAILY 08/22/19 Levofloxacin [Levaquin] 750 mg PO DAILY 08/22/19 Sennosides/Docusate Sodium [Senna Plus 8.6-50 mg Tablet] 2 tab PO QHS 08/22/19 traMADol [Ultram] 50 mg PO BID 08/22/19 Acetaminophen [Tylenol Tablet] 650 mg PO Q6H PRN PRN tab 08/24/19 Lidocaine [Lidoderm Patch] 3 patch TOPICAL DAILY@0600 #21 patch 08/24/19 Methocarbamol [Robaxin] 500 mg PO TID PRN #42 tab 08/24/19 predniSONE tablet 40 mg PO DAILY@0800 #8 tab 08/24/19 traMADol [Ultram] 50 mg PO Q6H PRN PRN #28 tab 08/24/19 Following Prescrptions Were Given to Patient: Lidocaine [Lidoderm Patch] 3 patch TOPICAL DAILY@0600 #21 patch predniSONE tablet 40 mg PO DAILY@0800 #8 tab Methocarbamol [Robaxin] 500 mg PO TID PRN #42 tab PRN Reason: Muscle Spasm traMADol [Ultram] 50 mg PO Q6H PRN PRN #28 tab PRN Reason: Pain Score 4-10/10 Prescription Printed Primary Care Physician: Tor Lucia MD [Primary Care Provider] - Please follow up with your Primary Care Physician in: 1-2 weeks Please Follow Up With: Dafne Torres MD When: 1-2 weeks Please Follow Up With: Eveline Jason NP-C When: 2 weeks Disposition: Shelter facility Minutes spent on discharge:: 35 Patient Condition:: Stable Medical Necessity - Tobacco Use Smoking Status: Former smoker Tobacco Use: Non-smoker Meaningful Use Info Meaningful Use Diagnoses (Choose all that apply): None applicable <Bonifacio Conway - Last Filed: 08/24/19 15:37> Discharge Date and Diagnosis - Primary Discharge Diagnosis Active and Suspected Problems (Last Reviewed 08/14/19 @ 10:00 by JOSEPH Callahan) Respiratory failure (Acute) Back pain (Acute) Acute and chronic respiratory failure with hypoxia (Acute) Spinal stenosis, lumbar region with neurogenic claudication (Acute) Spondylosis without myelopathy or radiculopathy, lumbar region (Acute) Lumbago with sciatica, right side (Acute) Lumbago with sciatica, right side (Acute) Inflammation of right sacroiliac joint (Acute) Inflammation of right sacroiliac joint (Acute) Generalized muscle ache (Acute) Generalized muscle ache (Acute) Unspecified abnormalities of gait and mobility (Acute) Unspecified abnormalities of gait and mobility (Acute) Lactic acidosis (Acute) - Secondary Discharge Diagnosis Chronic Problems (Last Reviewed 08/14/19 @ 10:00 by JOSEPH Callahan) Compression fracture (Chronic) Other intervertebral disc degeneration, 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, lumbar region (Chronic) Spinal stenosis, lumbar region with neurogenic claudication (Chronic) Compression fracture of thoracic vertebra with routine healing (Chronic) Compression fracture of thoracic vertebra with routine healing (Chronic) ANKUSH (obstructive sleep apnea) (Chronic) Diastolic dysfunction (Chronic) Chronic hypoxemic respiratory failure (Chronic) Chronic anticoagulation (Chronic) Former tobacco use (Chronic) Depression (Chronic) Pulmonary hypertension (Chronic) History of recurrent deep vein thrombosis (DVT) (Chronic) History of pulmonary embolism (Chronic) History of cardioversion (Chronic) January of 2018.....HR not controlled with exertion while in AF on Beta donna and cardizem. Converted to NSR with cardioversion Paroxysmal atrial fibrillation (Chronic) [facility] on 01/31/2018; HTN (hypertension) (Chronic) Iron deficiency anemia (Chronic) Chronic diastolic CHF (congestive heart failure) (Chronic) Acute exacerbation of CHF (congestive heart failure) (Chronic) Atrial fibrillation with RVR (Chronic) Dyslipidemia (Chronic) COPD (chronic obstructive pulmonary disease) (Chronic) Hospital Course and Treatment Operations: None Procedures: None Summary of Care Provided: Patient seen and examined independently. Data reviewed. I agree with the above note by the physician family medicine physician assistant. The patient is a 73 year old F presents with back pain. Back pain began approximately 1 week ago and was atraumatic. Patient had CT showed singly compressed T11 fracture. Patient was seen in consultation by pain management who recommended conservative measures as delineated above. Patient preferred not to be on gabapentin and I would prefer to be on as needed medications. Patient will follow-up with pain management to see if kyphoplasty may be an option but overall, patient is feeling better. Patient also did have exacerbation of COPD but is improved and be on prednisone burst. [] - Physical Exam Vitals/I&O's: Vital Signs Temp Pulse Resp BP Pulse Ox 36.7 C 80 16 110/53 L 100 08/24/19 13:51 08/24/19 15:01 08/24/19 15:01 08/24/19 13:51 08/24/19 13:51 Oxygen Flow Rate (L/min) [ 2 AMBULATION with Oxygen] Oxygen Flow Rate (L/min) [At 2 REST on Room Air] Oxygen Flow Rate (L/min) 2 Oxygen Delivery Method Nasal Cannula Weight: 78.6 kg Body Mass Index (BMI) 27.1 Intake and Output for Last 24 Hours 08/22/19 08/23/19 08/24/19 23:59 23:59 23:59 Intake Total 240 / 240 480 / 480 240 / 240 Output Total 100 / 100 100 / 100 Balance 240 / 240 380 / 380 140 / 140 General: Alert, Cooperative HEENT: Atraumatic, Normocephalic Neck: No Nodes, Trachea Midline Lungs: Clear to auscultation, Normal air movement, No rhonchi, No wheeze, No rales Cardiovascular: Regular rate, Regular Rhythm, Normal S1, Normal S2, No murmurs Abdomen: Bowel Sounds Present, Soft, Non Tender, Non-Distended Extremities: No edema, No Calf Tenderness Skin: No rashes, No breakdown Psych/Mental Status: Normal Affect, Appropriate Laboratory Results 08/24/19 06:18: PT 30.8 H, INR 2.9 Current Medications Acetaminophen (Tylenol) 650 mg PO Q6H PRN PRN PRN Reason: Pain Score 1-10/Temp > 100.7 F Last Admin: 08/23/19 13:57 Dose: 650 mg Documented by: Albuterol/Ipratropium (Duoneb) 3 ml INHALATION Q4HWA.RT [facility] Last Admin: 08/24/19 15:01 Dose: 3 ml Documented by: Buspirone HCl (Buspar) 7.5 mg PO QHS [facility] Last Admin: 08/23/19 22:13 Dose: 7.5 mg Documented by: Citalopram Hydrobromide (Celexa) 40 mg PO DAILY [facility] Last Admin: 08/24/19 09:05 Dose: 40 mg Documented by: Digoxin (Lanoxin) 250 mcg PO DAILY [facility] Last Admin: 08/24/19 09:05 Dose: 250 mcg Documented by: Diltiazem HCl (Cardizem Cd) 120 mg PO Q12 [facility] Last Admin: 08/24/19 09:05 Dose: 120 mg Documented by: Ergocalciferol (Vitamin D) 50,000 unit PO TH [facility] Ferrous Sulfate (Ferrous Sulfate) 325 mg PO BIDCM [facility] Last Admin: 08/24/19 08:54 Dose: 325 mg Documented by: Furosemide (Lasix) 40 mg PO DAILY [facility] Last Admin: 08/24/19 09:05 Dose: 40 mg Documented by: Gabapentin (Neurontin) 100 mg PO QHS [facility] Last Admin: 08/23/19 22:13 Dose: 100 mg Documented by: Levofloxacin (Levaquin Tablet) 750 mg PO DAILY [facility] Last Admin: 08/24/19 09:05 Dose: 750 mg Documented by: Lidocaine (Lidoderm Patch) 3 patch TOPICAL DAILY@0600 [facility]; Protocol Last Admin: 08/24/19 05:11 Dose: 1 patch Documented by: Magnesium Hydroxide (Milk Of Magnesia) 30 ml PO DAILY PRN PRN Reason: Constipation Last Admin: 08/23/19 11:39 Dose: 30 ml Documented by: Methocarbamol (Robaxin) 500 mg PO TID PRN PRN Reason: MUSCLE SPASM Last Admin: 08/23/19 22:14 Dose: 500 mg Documented by: Ondansetron HCl (Zofran) 4 mg IV Q8H PRN PRN PRN Reason: NAUSEA/VOMITING Last Admin: 08/23/19 05:22 Dose: 4 mg Documented by: Pantoprazole Sodium (Protonix) 20 mg PO DAILY [facility] Last Admin: 08/24/19 09:05 Dose: 20 mg Documented by: Polyethylene Glycol (Miralax) 17 gm PO DAILY PRN PRN Reason: Constipation Last Admin: 08/23/19 11:39 Dose: 17 gm Documented by: Potassium Chloride (K-Dur) 20 meq PO DAILY [facility] Last Admin: 08/24/19 09:05 Dose: 20 meq Documented by: Prednisone () 40 mg PO DAILY@0800 [facility] Last Admin: 08/24/19 08:54 Dose: 40 mg Documented by: Senna/Docusate Sodium (Senokot-S, Caterina-Colace) 2 tablet PO QHS [facility] Last Admin: 08/23/19 22:14 Dose: 2 tablet Documented by: Sodium Chloride () 10 - 40 ml IV UD PRN PRN Reason: SALINE FLUSH Last Admin: 08/23/19 05:22 Dose: 10 ml Documented by: Sucralfate (Carafate) 1 gm PO 1HR_ACHS PRN PRN Reason: GI UPSET Tramadol HCl (Ultram) 50 mg PO BID [facility] Last Admin: 08/24/19 09:07 Dose: 50 mg Documented by: Tramadol HCl (Ultram) 50 mg PO Q6H PRN PRN PRN Reason: Pain Score 4-10/10 Warfarin Sodium (Coumadin (Pbkc)) 3 mg PO MoWeFr@1700 [facility] Last Admin: 08/23/19 16:27 Dose: 3 mg Documented by: Warfarin Sodium (Coumadin (Pbkc)) 4 mg PO SuTuThSa@1700 [facility] Last Admin: 08/22/19 19:35 Dose: 4 mg Documented by: Meaningful Use Info Meaningful Use Diagnoses (Choose all that apply): None applicable Code Visit Inpatient E&M: 48237 [facility]
--- NOTE | 2019-08-24 14:38 | NURSING ---
This nurse attempted to call report to [facility]. Placed on hold and eventually disconnected. Will reattempt.
--- NOTE | 2019-08-24 14:43 | NURSING ---
Attempted to call report to [facility], left message to return call when able.
== END 2019-08-24 15:10 | disposition skilled nursing facility (03) | DRG 190 ==
LOC: ED 15:54 → PCU 16:32
PROVIDERS: Physician Assistant; Admitting Provider Family Medicine; Emergency Provider Emergency Medicine; PCP Family Medicine
DX: J44.1 Chronic obstructive pulmonary disease with (acute) exacerbation (principal); J96.21 Acute and chronic respiratory failure with hypoxia; I50.32 Chronic diastolic (congestive) heart failure; M48.54XA Collapsed vertebra, not elsewhere classified, thoracic region, initial encounter for fracture; I11.0 Hypertensive heart disease with heart failure; I25.10 Atherosclerotic heart disease of native coronary artery without angina pectoris; M51.36 Other intervertebral disc degeneration, lumbar region; M48.062 Spinal stenosis, lumbar region with neurogenic claudication; M47.816 Spondylosis without myelopathy or radiculopathy, lumbar region; M54.41 Lumbago with sciatica, right side; M46.1 Sacroiliitis, not elsewhere classified; M79.10 Myalgia, unspecified site; R26.2 Difficulty in walking, not elsewhere classified; G47.33 Obstructive sleep apnea (adult) (pediatric); F32.9 Major depressive disorder, single episode, unspecified; I27.20 Pulmonary hypertension, unspecified; I48.0 Paroxysmal atrial fibrillation; D50.9 Iron deficiency anemia, unspecified; E78.5 Hyperlipidemia, unspecified; Z87.01 Personal history of pneumonia (recurrent); Z86.718 Personal history of other venous thrombosis and embolism; Z86.711 Personal history of pulmonary embolism; Z79.01 Long term (current) use of anticoagulants; Z87.891 Personal history of nicotine dependence
CPT/HCPCS: 36415; 71045; 71275; 72131; 74175; 74176; 80048; 81001; 83605; 83880; 84484; 85025; 85610; 93005; 94002; 94003; 94640; 97110; 97162; 97166; 97802; 99251; 99285; P9612; Q9967; A4216; G0463; J2405

== ENCOUNTER 2019-09-04 10:19 | Inpatient (IN) | payer MEDICARE, MEDICAID, SELFPAY ==
[2019-09-04] VITALS (9 sets, daily range): BP systolic 116–139; BP diastolic 54–86; PULSE 75–82; RESP 12–20; TEMP 36.5–36.6; O2SAT 96–99; BMI 27.1; BMI 25.8; BMI 25.4; BMI 25.5
--- NOTE | 2019-09-04 10:33 | CT_ITS ---
STUDY: CT BRAIN WITHOUT CONTRAST REASON FOR EXAM: Female, 73 years old. MENTAL STATUS CHANGE, ELEVATED CO2, LOC RADIATION DOSAGE (If Supplied By Facility): CTDIvol = ( 44.99 ) mGy, DLP = ( 812.98 ) mGycm TECHNIQUE: Transaxial CT imaging of the brain was performed without administration of intravenous contrast material. Individualized dose optimization techniques were used for this CT. COMPARISON: Comparison is made with prior study dated April 02, 2018. FINDINGS: Normal soft tissue structures. Normal calvarium. There is mild cerebral atrophy with widening of the extra-axial spaces and ventricular dilatation. Normal white matter tracts of the cerebral hemispheres. Normal basal ganglia and thalami. Normal brainstem. Normal cerebellum. There is no intracranial hemorrhage. There are no findings of an acute ischemic infarction. Normal visualized paranasal sinuses. CT/Brain/Head without Contrast IMPRESSION: Chronic involutional changes of the brain. Electronically Signed: Nathen Dickinson, at 11:19 EST , Service support ,
--- NOTE | 2019-09-04 10:34 | EKG12_ITS ---
Test Reason : AM EKG Blood Pressure : / mmHG Vent. Rate : 086 BPM Atrial Rate : 075 BPM P-R Int : 000 ms QRS Dur : 066 ms QT Int : 328 ms P-R-T Axes : 000 025 228 degrees QTc Int : 392 ms Atrial fibrillation Low voltage QRS ST & T wave abnormality, consider inferior ischemia ST & T wave abnormality, consider anterolateral ischemia Abnormal ECG When compared with ECG of 05-SEP-2019 10:18, MANUAL COMPARISON REQUIRED, DATA IS UNCONFIRMED Confirmed by SARAHY BHAT, KYLEIGH ([id number]), newspaper copy editor PABLITO TRUONG ([id number]) on 09/09/2019 2:49:34 PM Referred By: DR ALMAZAN Confirmed By:JERMAINE WEATHERS MD
--- NOTE | 2019-09-04 10:35 | RAD_ITS ---
STUDY: X-RAY CHEST REASON FOR EXAM: Female, 73 years old. MENTAL STATUS CHANGE TECHNIQUE: Single AP portable view of the chest. COMPARISON: Comparison is made with prior examination dated August 22, 2019. FINDINGS: EKG electrodes are seen. Stable minimal increased markings at the left lung base. This can either be scarring or mild degree of atelectasis. Stable mild elevation of the left hemidiaphragm. There is no demonstrated pleural abnormality. Normal size heart. Normal mediastinum and betty. Normal visualized pulmonary arteries. There is atherosclerotic calcification of the aortic arch with tortuosity. Normal visualized thoracic spine. Normal visualized ribs, clavicles, and shoulders. There is no demonstrated abnormality of the visualized soft tissue structures of the upper abdomen. RAD/Chest 1 View (Portable) IMPRESSION: Stable mild increased markings at the left lung base with mild elevation of the left hemidiaphragm. Electronically Signed: Nathen Dickinson, at 10:55 EST , Service support ,
[2019-09-04 10:40] LABS: Bedside Glucose 166 mg/dL (70-110)
[2019-09-04 10:51] LABS: Absolute Lymphocyte Count 1.27 X10^3/uL (0.83-4.51); Absolute Neutrophil Count 14.6 X10^3/uL (2.0-7.7); Basophil# 0.06 X10^3/uL; Basophil% 0.3 % (0-1); Eosinophil# 0.04 X10^3/uL; Eosinophils% 0.2 % (0-5); Hematocrit 47.6 % (37-47); Hemoglobin 14.9 g/dL (12.0-15.0); Lymphocyte # 1.27 X10^3/ul (4.0); Lymphocyte % 7.2 % (19-41); Mean Corp Hgb Conc 31.3 g/dL (32-36); Mean Corpuscular Hgb 28.9 pg (27.0-32.0); Mean Corpuscular Volume 92.2 fL (81-99); Mean Platelet Vol. 11.6 fl (6.2-12.0); Monocyte% 7.4 % (0-10); NRBC Flagged by Analyzer 0 % (0-5); Neutrophil # 14.57 X10^3/uL (2.7-7.7); Neutrophil % 82.6 % (47-70); Platelet Count 242 K/mm3 (150-450); RBC Distribution Width CV 17.2 % (11.6-14.6); RBC Distribution Width SD 58.3 fl (35.1-43.9); Red Blood Count 5.16 M/mm3 (4.2-5.4); White Blood Count 17.6 K/mm3 (4.4-11.0)
[2019-09-04 10:51] LABS: Base Excess 16 mmol/L (-2 to +2); Bicarbonate 40.3 mmol/L (22-26); Blood Gas Specimen Type ART; O2 Delivery Device Nasal Can; PO2 100 mmHG (75-100); SITE R Radial; SO2 98 % (95-99); Time Given 1045; Total Carbon Dioxide 42 mmol/L; pCO2 57.7 mmHg (35-45); pH 7.45 (7.35-7.45)
[2019-09-04 11:10] LABS: Prothrombin Time (Protime)PT. 55.9 SECONDS (11.7-14.9)
[2019-09-04 11:11] LABS: Partial Thromboplast Time 75.5 Seconds (24.1-36.2)
[2019-09-04 11:12] LABS: ALB/GLOB Ratio 0.7 RATIO (0.9-2.4); AST(SGOT) 32 U/L (15-37); Alanine Aminotransfer ALT/SGPT 27 U/L (13-56); Albumin, Serum 2.8 g/dL (3.2-5.0); Alkaline Phosphatase 174 U/L (45-117); Anion Gap 3 (5-15); BUN 32 mg/dL (7-18); BUN/Creat Ratio 22.4 RATIO (10-20); Calcium,Total 9.7 mg/dL (8.5-10.1); Chloride 98 mmol/L (98-107); Creatinine, Serum 1.43 mg/dL (0.55-1.02); EST Glomerular Filtration Rate 38 mL/min (>60); Est Glom Filt Rate - Afr Amer 46 mL/min (>60); Estimated Creatinine Clearance 31.82 ml/min; Globulin 4.3 g/dL (2.2-4.2); Glucose 158 mg/dL (74-106); Lipase 281 U/L (73-393); Protein, Total 7.1 g/dL (6.4-8.2); Sodium Level 138 mmol/L (136-145)
[2019-09-04 11:19] LABS: Lactic Acid 1.7 mmol/L (0.4-1.9)
[2019-09-04 11:22] LABS: Bacteria 0 SEEN /hpf (None Seen); Mucous, Urine 0 SEEN /hpf (<or=2+); Red Blood Cells-Urine 0 SEEN /hpf (0-5); White Blood Cells 0 SEEN /hpf (0-5)
[2019-09-04 11:26] LABS: Color, Urine Yellow (Yellow); Glucose, Dipstick Normal (Normal); Ketone-Dipstick 5 mg/dl (Negative); Leukocyte Esterase-Dipstick Negative /ul (Negative); Nitrite-Dipstick Negative (Negative); Occult Blood-Urine Negative /ul (Negative); Protein-Dipstick 15 mg/dl (Negative); Urine Bilirubin Dipstick Negative (Negative); Urine Clarity Clear (Clear); Urine Urobilinogen Normal (Normal)
[2019-09-04 11:27] LABS: International Normalized Ratio 6.2
--- NOTE | 2019-09-04 11:33 | ED.DCSUM_ITS ---
- ER Visit Summary Date of Service: 09/04/19 Chief Complaint: Mental status change History of Present Illness: The patient is a [address] Selby. Daughter reports patient has been much more lethargic over the past 6 days. Is gradually worsening. She is having a difficult time staying awake. This morning she even fell asleep on the commode. She also complains of the patient has diffuse twitching that began today. Patient is lethargic, but arouses to voice. She denies any fever or chills. She denies any chest pain or cough. She reports that she has abdominal pain that is not too bad. She is been nausea had dry heaves. No diarrhea. She denies any dysuria. She does complain of generalized weakness. She also complains of a headache. She is unable to tell me how severe this is. Physical Examination: Vitals: Stable. Afebrile. General: Well-nourished and well-developed. Head: Normocephalic atraumatic. Neck: Supple, no lymphadenopathy. No JVD. Nontender. Cardiovascular: Regular rate and rhythm. 2 out of 6 systolic murmur. Respiratory: No respiratory distress. Clear to auscultation bilaterally. Abdominal: Soft, nontender, nondistended, normal bowel sounds. No guarding, rebound, or peritoneal signs. Back: Nontender. Extremities: Nontender, 1+ pitting edema lower extremities bilaterally. Skin: Normal color, no rash. Neurologic: Lethargic, but arouses to voice. Moves all extremities well. Psych: Normal affect. Test Results: EKG is A. fib at 71. She has ST elevation in aVR with diffuse ST depression. This is in the inferior leads as well as 1, aVL, and precordial leads. Initial troponin is 0.199. LFTs show an albumin of 2.8, globulin 4.3. Alk phos is 174. INR is 6.2 with a PTT of 75.5. Chem-7 shows a CO2 of 37, glucose 158, BUN 32, creatinine 1.43. CBC shows a white count of 17.6 with hematocrit of 47.6. Segmented neutrophils 83 with 7 lymphocytes. Immature granulocytes 2.3%. ABG shows a pH of 7.45 with a bicarb of 40.3 and CO2 of 57.7. Lactic acid is 1.7. Urinalysis is negative. Clinical Impression(s) from Imaging Studies Brain CT 09/04/19 10:33 IMPRESSION: Chronic involutional changes of the brain. Electronically Signed: Nathen Dickinson, at 11:19 EST , Service support , Chest X-Ray 09/04/19 10:35 IMPRESSION: Stable mild increased markings at the left lung base with mild elevation of the left hemidiaphragm. Electronically Signed: Nathen Dickinson, at 10:55 EST , Service support , Emergency Department Course and Treatment: Initially I thought the patient was going to have a hypercapnic respiratory failure. The ABG is not consistent with this so she was not placed on BiPAP. The CT of the brain does not show a bleed or stroke. The patient was discussed with Dr. Martini and the EKG was reviewed. She is on digoxin and a level of this was sent. Treatment Plan: The patient was discussed with Dr. Conway. She will be admitted the hospital for further evaluation and treatment. Disposition: Admitted in serious condition. Impression: 1. Mental status change. 2. EKG changes. 3. Leukocytosis. 4. Critical care time 30 minutes. This note was generated with [employer]ation software. It may contain incorrect words, spelling, and punctuation that were not noted in review of the chart prior to signing ED Disposition - Plan for ED Patient: Referrals: Tor Lucia MD [Primary Care Provider] -
[2019-09-04 11:53] LABS: Hyaline Cast 0-5 SEEN /lpf (0-5); Squamous Epithelial Cells - UA 0-5 SEEN /hpf (5-10); Transitional Epithelial - Ur 0-5 SEEN /hpf (0-5)
[2019-09-04 13:25] LABS: Digoxin Level 5.55 ng/mL (0.80-2.00)
--- NOTE | 2019-09-04 13:42 | ECHOD_ITS ---
Reason For Study: Elevated Troponins Procedure This was a 2D Doppler, Color Flow transthoracic echocardiogram. Techncially difficult study. Patient very lethargic and would not straighten out in bed. Patient remained in a ball like position for testing. Exam performed portable in patient room. Left Ventricle Normal size and thickness. The estimated ejection fraction is 65 %. Unable to assess diastolic dysfunction due to arrhythmia. No regional wall motion abnormalities noted. Right Ventricle Normal size and thickness. Normal systolic function. Atria Normal left atrium. The right atrium is mildly enlarged. Normal atrial septum. Mitral Valve Mild diffuse mitral valve thickening. Moderate mitral annular calcification extending into the posterior leaflet. Tricuspid Valve Normal tricuspid valve. Mild (1+) tricuspid valve insufficiency. Right ventricular systolic pressure estimated to be 51 mmHg. Moderate pulmonary hypertension. Aortic Valve Trisinus/trileaflet aortic valve. Mild focal aortic valve thickening. There is no aortic stenosis. Pulmonic Valve The pulmonic valve is not well visualized. Great Vessels Normal aortic root. Normal arch. Normal inferior vena cava. Inferior vena cava collapse with sniff. Pericardium/Pleural No pericardial effusion. MMode/2D Measurements & Calculations LVIDd: 3.7 cm IVSd: 1.4 cm Ao root diam: 3.2 cm LVIDs: 2.1 cm LVPWd: 1.4 cm LA dimension: 3.6 cm FS: 44.2 % LAV(MOD-bp): 54.5 ml LA A4 area: 17.6 cm2 RA A4 area: 21.6 cm2 LAV(MOD-bp) Indexed: 30.1 ml/m2 LAV(MOD-sp2): 50.7 ml LAV(MOD-sp4): 51.3 ml Time Measurements MV dec time: 0.24 sec Doppler Measurements & Calculations MV E max nik: 101.2 cm/sec Lat Peak E' Nik: 12.3 cm/sec Med Peak E' Nik: 6.8 cm/sec MV A max nik: 31.3 cm/sec E/E' lat: 8.2 E/E' med: 14.9 MV E/A: 3.2 MV V2 max: 131.4 cm/sec MV P1/2t max nik: 131.4 cm/sec Ao V2 max: 138.0 cm/sec MV max P.9 mmHg MV P1/2t: 61.0 msec Ao max P.6 mmHg MV V2 mean: 48.2 cm/sec MV dec slope: 630.5 cm/sec2 Ao V2 mean: 97.9 cm/sec MV mean P.4 mmHg MVA(P1/2t): 3.6 cm2 Ao mean P.3 mmHg MV V2 VTI: 28.4 cm Ao V2 VTI: 22.8 cm LV V1 max: 78.7 cm/sec PA V2 max: 89.9 cm/sec TR max nik: 299.5 cm/sec LV V1 max P.5 mmHg TR max P.9 mmHg LV V1 mean P.2 mmHg LV V1 mean: 52.0 cm/sec LV V1 VTI: 13.0 cm Interpretation Summary The estimated ejection fraction is 65 %. Unable to assess diastolic dysfunction due to arrhythmia. The right atrium is mildly enlarged. Mild (1+) tricuspid valve insufficiency. Right ventricular systolic pressure estimated to be 51 mmHg. Moderate pulmonary hypertension. Compared to echo report dated 07/15/2019, no appreciable changes noted. Patient appears to be in atrial fibrillation on today's exam. Ordering Physician: Bonifacio Conway Referring Physician: Tor Lucia Performed By: Callum Bailon RCS
--- NOTE | 2019-09-04 13:42 | EKG12_ITS ---
Test Reason : Blood Pressure : / mmHG Vent. Rate : 071 BPM Atrial Rate : 070 BPM P-R Int : 000 ms QRS Dur : 068 ms QT Int : 362 ms P-R-T Axes : 000 003 185 degrees QTc Int : [address] & T wave abnormality, consider inferior ischemia ST & T wave abnormality, consider anterolateral ischemia Abnormal ECG Confirmed by SARAHY BHAT, KYLEIGH ([id number]), script editor PABLITO TRUONG ([id number]) on 09/09/2019 2:27:54 PM Referred By: BARBARA Confirmed By:JERMAINE WEATHERS MD
--- NOTE | 2019-09-04 14:30 | HP.PCM_ITS ---
Problem List (1) Encephalopathy acute Status: Acute (2) Elevated troponin Status: Acute (3) Digoxin toxicity Status: Acute Qualifiers: Encounter type: initial encounter (4) HEIDI (acute kidney injury) Status: Acute (5) Back pain Status: Chronic Qualifiers: Back pain location: low back pain Chronicity: chronic Back pain laterality: unspecified Sciatica presence: unspecified whether sciatica present Qualified Code(s): M54.5 - Low back pain; G89.29 - Other chronic pain (6) Compression fracture Status: Chronic (7) Other intervertebral disc degeneration, lumbar region Status: Chronic (8) Spinal stenosis, lumbar region with neurogenic claudication Status: Chronic (9) Spondylosis without myelopathy or radiculopathy, lumbar region Status: Chronic (10) Lumbago with sciatica, right side Status: Chronic Qualifiers: Chronicity: chronic Back pain laterality: right Qualified Code(s): M54.41 - Lumbago with sciatica, right side; G89.29 - Other chronic pain (11) Inflammation of right sacroiliac joint Status: Acute (12) Generalized muscle ache Status: Acute (13) Unspecified abnormalities of gait and mobility Status: Chronic (14) Compression fracture of thoracic vertebra with routine healing Status: Chronic Qualifiers: Thoracic vertebra fracture level: T11 (15) ANKUSH (obstructive sleep apnea) Status: Chronic (16) Diastolic dysfunction Status: Chronic (17) Chronic hypoxemic respiratory failure Status: Chronic (18) Chronic anticoagulation Status: Chronic (19) Former tobacco use Status: Chronic (20) Depression Status: Chronic Qualifiers: Depression Type: unspecified Qualified Code(s): F32.9 - Major depressive disorder, single episode, unspecified (21) Pulmonary hypertension Status: Chronic (22) History of recurrent deep vein thrombosis (DVT) Status: Chronic (23) History of pulmonary embolism Status: Chronic (24) History of cardioversion Status: Chronic Comment: January of 2018.....HR not controlled with exertion while in AF on Beta donna and cardizem. Converted to NSR with cardioversion (25) Paroxysmal atrial fibrillation Status: Chronic Comment: DCCV on 01/31/2018; (26) HTN (hypertension) Status: Chronic Qualifiers: Hypertension type: essential hypertension (27) Iron deficiency anemia Status: Chronic Qualifiers: Iron deficiency anemia type: unspecified iron deficiency Qualified Code(s): D50.9 - Iron deficiency anemia, unspecified (28) Chronic diastolic CHF (congestive heart failure) Status: Chronic (29) Atrial fibrillation with RVR Status: Chronic (30) Leukocytosis Status: Acute Qualifiers: Leukocytosis type: unspecified Qualified Code(s): D72.829 - Elevated white blood cell count, unspecified (31) Dyslipidemia Status: Chronic (32) COPD (chronic obstructive pulmonary disease) Status: Chronic Qualifiers: History of Present Illness Date of Admission: 09/04/19 Chief Complaint: confusion The patient is a 73 year old F for the past few days has been increasingly confused. Patient has been more somnolent than she has been. Along with this, patient has not been eating or drinking much. Given that was ongoing, patient was sent to the emergency room. In the emergency room, patient underwent a work-up that showed a troponin of 0.199. Patient an EKG that was concerning for STEMI but seamless hosiery knitter reviewed and felt that was more concerning for dig toxicity and so digoxin level was performed and came back elevated at 5.5. History is obtained through the emergency room physician as well as the patient's daughter. Patient is somnolent and not a good historian at this time. [] Past Medical History Past Medical History (Chronic Problems): Chronic Problems (Last Reviewed 09/04/19 @ 09:57 by Amara Alegre) Back pain (Chronic) Compression fracture (Chronic) Other intervertebral disc degeneration, lumbar region (Chronic) Spinal stenosis, lumbar region with neurogenic claudication (Chronic) Spondylosis without myelopathy or radiculopathy, lumbar region (Chronic) Lumbago with sciatica, right side (Chronic) Unspecified abnormalities of gait and mobility (Chronic) Compression fracture of thoracic vertebra with routine healing (Chronic) ANKUSH (obstructive sleep apnea) (Chronic) Diastolic dysfunction (Chronic) Chronic hypoxemic respiratory failure (Chronic) Chronic anticoagulation (Chronic) Former tobacco use (Chronic) Depression (Chronic) Pulmonary hypertension (Chronic) History of recurrent deep vein thrombosis (DVT) (Chronic) History of pulmonary embolism (Chronic) History of cardioversion (Chronic) January of 2018.....HR not controlled with exertion while in AF on Beta donna and cardizem. Converted to NSR with cardioversion Paroxysmal atrial fibrillation (Chronic) DCCV on 01/31/2018; HTN (hypertension) (Chronic) Iron deficiency anemia (Chronic) Chronic diastolic CHF (congestive heart failure) (Chronic) Atrial fibrillation with RVR (Chronic) Dyslipidemia (Chronic) COPD (chronic obstructive pulmonary disease) (Chronic) Medical History: Medical History (Last Reviewed 09/04/19 @ 14:46 by Bonifacio Conway DO) Dyslipidemia (Chronic) E78.5 COPD (chronic obstructive pulmonary disease) (Chronic) J44.9 Atrial fibrillation I48.91 Heart failure with preserved ejection fraction I50.30 Group 2. EF 65% 12/05/17 Essential hypertension I10 History of DVT (deep vein thrombosis) Z86.718 History of pulmonary embolus (PE) Z86.711 Pulmonary HTN I27.20 Venous insufficiency I87.2 Allergies amlodipine besylate [From [facility]] Adverse Reaction (Verified 08/22/19 11:46) ANKLE AND LEG EDEMA RESOLVED OFF MED-PER PCP PAPERWORK codeine Adverse Reaction (Verified 08/22/19 11:46) MENTAL STATUS CHANGE lisinopril Adverse Reaction (Verified 08/22/19 11:46) COUGH Home Medications: Ambulatory Orders Medication Instructions Recorded Ergocalciferol [Vitamin D] 50,000 unit PO TH 07/19/15 Warfarin Sodium 4 mg PO MOTH 03/08/18 Citalopram Hydrobromide 40 mg PO DAILY 05/23/18 [Citalopram HBr] Budesonide 2 ml IH BID 01/17/19 Omeprazole 20 mg PO DAILY 01/17/19 Sucralfate [Carafate] 1 gm PO Q6H PRN PRN 01/17/19 Vit A/Vit C/Vit E/Zinc/Copper 1 ea PO BID 01/17/19 [Preservision Areds Tablet] Warfarin [Coumadin] 3 mg PO [id number] 01/17/19 Buspirone HCl 7.5 mg PO QHS 05/07/19 Cyanocobalamin (Vitamin B-12) 500 mcg PO DAILY@0800 07/12/19 [Vitamin B-12] Polyethylene Glycol 3350 17 gm PO DAILY 07/12/19 Potassium Chloride 20 meq PO DAILY #0 08/10/19 Zolpidem Tartrate [Ambien] 5 mg PO QHS PRN PRN 5 Days #5 tab 08/10/19 Bisacodyl [Gentle Laxative] 10 mg VA DAILY PRN PRN 08/22/19 Digoxin [Lanoxin] 250 mcg PO DAILY 08/22/19 Diltiazem CD [Cardizem CD] 120 mg PO Q12 08/22/19 Furosemide [Lasix] 60 mg PO DAILY 08/22/19 Lactobacillus Acidophilus 1 ea PO DAILY 08/22/19 [Acidophilus] Levofloxacin [Levaquin] 750 mg PO DAILY 08/22/19 Sennosides/Docusate Sodium [Senna 2 tab PO QHS 08/22/19 Plus 8.6-50 mg Tablet] traMADol [Ultram] 50 mg PO TID 08/22/19 Acetaminophen [Tylenol Tablet] 650 mg PO Q6H PRN PRN tab 08/24/19 Methocarbamol [Robaxin] 500 mg PO TID PRN #42 tab 08/24/19 gabapentin 100 mg capsule 100 mg PO QHS 08/28/19 Lidocaine [Lidocaine Pain Relief] 1 ea TOPICAL DAILY 09/04/19 Ondansetron HCl [Zofran] 4 mg PO Q6H PRN 09/04/19 Surgical History: Surgical History (Last Reviewed 09/04/19 @ 14:46 by Bonifacio Conway DO) History of cholecystectomy Z90.49 History of total hysterectomy Z90.710 tailbone surgery Surgical History: cholecystectomy, hysterectomy, - - tailbone surgery. 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 Paternal Family History: Family History (Last Reviewed 09/04/19 @ 14:46 by Bonifacio Conway DO) Sister Heart disease History Items: - Sibling Family History: Family History (Last Reviewed 09/04/19 @ 14:46 by Bonifacio Conway DO) Sister Heart disease History Items: - - Patient notes a sibling specifically her sister with Parkinson's disease and heart disease as well as a brother with Parkinson's disease, asthma and history of blood clots. Review of Systems Comment: Limited history given the patient's confusion. Please refer to the HPI for further details. VTE Information - Inpt Only VTE Present on Admission: No VTE Mechan Device Prophylaxis: None VTE Pharm Prophylaxis ordered?: Yes Patient Problems: Active and Suspected Problems (Last Reviewed 09/04/19 @ 09:57 by Amara Alegre) Encephalopathy acute (Acute) Elevated troponin (Acute) Digoxin toxicity (Acute) HEIDI (acute kidney injury) (Acute) - Physical Exam Vitals/I&O's: Vital Signs Temp Pulse Resp BP Pulse Ox 36.6 C 80 18 127/67 H 99 09/04/19 13:12 09/04/19 13:12 09/04/19 13:12 09/04/19 13:12 09/04/19 13:12 Oxygen Flow Rate (L/min) 2 Oxygen Delivery Method Nasal Cannula Weight: 72 kg Body Mass Index (BMI) 25.4 Finger Stick Blood Glucose 166 General: - - Patient is alert but somnolent easily dozes off. HEENT: Atraumatic, Normocephalic Oral: Moist Mucosa, No Gingival or Mucosal Lesions/ Ulcerations Neck: No Nodes, Trachea Midline Lungs: Clear to auscultation, Normal air movement, No rhonchi, No wheeze, No rales Cardiovascular: Regular rate, Regular Rhythm, Normal S1, Normal S2, No murmurs Abdomen: Bowel Sounds Present, Soft, Non Tender, Non-Distended, No Hepato- splenomegaly Extremities: No edema, No Calf Tenderness Skin: No rashes, No breakdown Musculoskeletal: No Tenderness to Palpation of Joints or Extremities, No Muscle Wasting Neurological: Cranial nerves II-XII grossly intact, Muscle tone normal, Sensory exam intact to light touch and pain Laboratory Results 09/04/19 10:33: POC Glucose 166 H 09/04/19 10:34: WBC 17.6 H, RBC 5.16, Hgb 14.9, Hct 47.6 H, MCV 92.2, MCH 28.9, MCHC 31.3 L, RDW Std Deviation 58.3 H, RDW Coeff of Laura 17.2 H, Plt Count 242, MPV 11.6, Immature Gran % (Auto) 2.300 H, Neut % (Auto) 82.6 H, Lymph % (Auto) 7.2 L, [place] % (Auto) 7.4, Eos % (Auto) 0.2, Baso % (Auto) 0.3, Absolute Neuts (auto) 14.6 H, Absolute Lymphs (auto) 1.27, Nucleated RBC % 0 09/04/19 10:34: PT 55.9 H, INR 6.2 H*, APTT 75.5 H 09/04/19 10:34: Sodium 138, Potassium 4.0, Chloride 98, Carbon Dioxide 37.0 H, Anion Gap 3 L, BUN 32 H, Creatinine 1.43 H, Estim Creat Clear Calc 31.82, Est GFR (MDRD) Af Amer 46 L, Est GFR (MDRD) Non-Af 38 L, BUN/Creatinine Ratio 22.4 H , Glucose 158 H, Calcium 9.7, Total Bilirubin 0.80, AST 32, ALT 27, Alkaline Phosphatase 174 H, Troponin I 0.199 H, Total Protein 7.1, Albumin 2.8 L, Globulin 4.3 H, Albumin/Globulin Ratio 0.7 L, Lipase 281 09/04/19 10:34: Lactic Acid 1.7 09/04/19 10:34: Digoxin 5.55 H* 09/04/19 10:46: Specimen Type ART, Sample Site R Radial, pH 7.45, Bicarbonate Actual 40.3 H, POC Total CO2 42, Base Excess 16 H, O2 Saturation 98, ABG pCO2 57.7 H, ABG pO2 100, O2 Delivery Device Nasal Can, Liter Flow 2.0, Blood Gas Notified Whom ED , Blood Gas Notified Time 1045 09/04/19 11:15: Urine Color Yellow, Urine Clarity Clear, Urine pH 6.0, Ur Specific [place] 1.020, Urine Protein 15 H, Urine Glucose (UA) Normal, Urine Ketones 5 H, Urine Occult Blood Negative, Urine Nitrite Negative, Urine Bilirubin Negative, Urine Urobilinogen Normal, Ur Leukocyte Esterase Negative, Urine RBC 0 SEEN, Urine WBC 0 SEEN, Ur Squamous Epith Cells 0-5 SEEN, Ur Transition Epith Cell 0-5 SEEN, Urine Bacteria 0 SEEN, Hyaline Casts 0-5 SEEN, Urine Mucus 0 SEEN 09/04/19 14:00: Troponin I 0.168 H Clinical Impression(s) from Imaging Studies Brain CT 09/04/19 10:33 IMPRESSION: Chronic involutional changes of the brain. Electronically Signed: Nathen Dickinson, at 11:19 EST , Service support , Chest X-Ray 09/04/19 10:35 IMPRESSION: Stable mild increased markings at the left lung base with mild elevation of the left hemidiaphragm. Electronically Signed: Nathen Dickinson, at 10:55 EST , Service support , Current Medications Acetaminophen (Tylenol) 650 mg PO Q6H PRN PRN PRN Reason: Pain Score 1-10/Temp > 100.7 F Albuterol Sulfate (Ventolin Aerosols) 2.5 mg INHALATION Q2H PRN PRN PRN Reason: SOB/Wheezing Bisacodyl (Dulcolax) 10 mg RECTAL DAILY PRN PRN PRN Reason: Constipation Budesonide (Pulmicort Aerosol) 0.25 mg INHALATION Q12H.RT [facility] Buspirone HCl (Buspar) 7.5 mg PO QHS [facility] Cyanocobalamin (Vitamin B12) 500 mcg PO DAILY@0800 [facility] Diltiazem HCl (Cardizem Cd) 120 mg PO Q12 [facility] Ergocalciferol (Vitamin D) 50,000 unit PO TH [facility] Glucagon () 1 mg IM .X1 PRN PRN Reason: Hypoglycemia Sodium Chloride () 1,000 mls @ 150 mls/hr IV .Q6H40M [facility] Dextrose (Dextrose 10%-Water) 250 mls @ 999 mls/hr IV .Q16M PRN; Protocol PRN Reason: HYPOGLYCEMIA Lactobacillus Acidophilus (Acidophilus) 1 tablet PO DAILY [facility] Lidocaine (Lidoderm Patch) 3 patch TOPICAL DAILY@0600 [facility]; Protocol Multivitamins/Minerals (Healthy Eyes (Bkc)) 1 capsule PO BIDCM [facility] Nitroglycerin (Nitrostat) 0.4 mg SUBLINGUAL Q5M PRN PRN Reason: CARDIAC/CHEST PAIN Ondansetron HCl (Zofran) 4 mg IV Q8H PRN PRN PRN Reason: NAUSEA/VOMITING Pantoprazole Sodium (Protonix) 20 mg PO DAILY [facility] Polyethylene Glycol (Miralax) 17 gm PO DAILY [facility] Senna/Docusate Sodium (Senokot-S, Caterina-Colace) 2 tablet PO QHS [facility] Sucralfate (Carafate) 1 gm PO 1HR_ACHS PRN PRN Reason: GI UPSET Assessment/Plan All Active Problems (Last Reviewed 09/04/19 @ 09:57 by Amara Alegre) Inflammation of right sacroiliac joint (Acute) Generalized muscle ache (Acute) Encephalopathy acute (Acute) Elevated troponin (Acute) Digoxin toxicity (Acute) HEIDI (acute kidney injury) (Acute) Leukocytosis (Acute) 1. Encephalopathy * may be toxic due to digoxin toxicity * hold dig and other potentiating medications * supportive mgmt * PCo2 up, so may also be contributing 2. Digoxin toxicity * unclear how much her symptoms are due to dig toxicity * give Digibind 4mg x 1 * hold digoxin * may be exacerbated by HEIDI 3. Elevated troponins * unclear significance * asymptomatic * Consult cards (SURYA Martini) * check echo 4. HEIDI * suspect prerenal * IVF * hold furosemide 5. Coagulopathy * no bleeding * likely due to poor oral intake while taking warfarin * monitor * hold warfarin 6. T11 cmprsn fracture * conservative mgmt 7. VTE proph: low risk as already anticoagulated 8. ACP: surya patient's dtr, her POA: DNRCCA, no intubation. Code Visit Inpatient E&M: 38798 Init Hosp L3
[2019-09-04] MEDS: 0.9% Normal Saline 1,000 ML 150 ML IV ×2 (14:33→22:29)
--- NOTE | 2019-09-04 15:57 | PCM.CONS.C ---
Problem List (1) Abnormal EKG Status: Acute (2) Pulmonary hypertension Status: Chronic (3) History of pulmonary embolism Status: Chronic (4) HTN (hypertension) Status: Chronic Qualifiers: Hypertension type: essential hypertension (5) Dyslipidemia Status: Chronic (6) COPD (chronic obstructive pulmonary disease) Status: Chronic Qualifiers: Reason for Consult Date of Consultation: 09/04/19 Reason for Consultation: Abnormal EKG, bradycardia, Coumadin toxic, elevated digoxin level History of Present Illness: The patient is a 73 year old F, patient Dr. Flowers, with a history of COPD/emphysema, hypertension, atrial fibrillation on chronic Coumadin therapy, DVT/pulmonary embolism in the past per the records, previous smoker, previous cardioversion about 3 years ago, unknown previous catheterization. Recently the patient has been admitted several times for pneumonia, RSV followed by pneumonia again. She currently resides in a shelter, and has had several episodes of CO2 narcosis requiring visit to the hospital. According to the patient's son who gave most of the history, the patient has had decreased p.o. intake, increasing lethargy, confusion, and hallucination. Patient was brought to the emergency room today from the shelter where an EKG was performed which showed atrial fibrillation with slow ventricular response with diffuse anterior ST segment depression and T wave inversion consistent with digoxin use and/or elevated digoxin levels. She also had isolated ST elevation in aVR but was completely asymptomatic from a cardiac standpoint. She denies any chest pain, angina, shortness of breath or dyspnea on exertion., Laboratory exam demonstrated a digoxin level 5.5, and INR 6.5. Currently the patient is laying in bed, answers questions appropriately although slowly, opens her eyes, obeys commands, and in no acute distress. [] Past Medical History Allergies/Adverse Reactions: Allergies amlodipine besylate [From [facility]] Adverse Reaction (Verified 08/22/19 11:46) ANKLE AND LEG EDEMA RESOLVED OFF MED-PER PCP PAPERWORK codeine Adverse Reaction (Verified 08/22/19 11:46) MENTAL STATUS CHANGE lisinopril Adverse Reaction (Verified 08/22/19 11:46) COUGH Home Medications: Ambulatory Orders Medication Instructions Recorded Ergocalciferol [Vitamin D] 50,000 unit PO TH 07/19/15 Warfarin Sodium 4 mg PO MOTH 03/08/18 Citalopram Hydrobromide 40 mg PO DAILY 05/23/18 [Citalopram HBr] Budesonide 2 ml IH BID 01/17/19 Omeprazole 20 mg PO DAILY 01/17/19 Sucralfate [Carafate] 1 gm PO Q6H PRN PRN 01/17/19 Vit A/Vit C/Vit E/Zinc/Copper 1 ea PO BID 01/17/19 [Preservision Areds Tablet] Warfarin [Coumadin] 3 mg PO [id number] 01/17/19 Buspirone HCl 7.5 mg PO QHS 05/07/19 Cyanocobalamin (Vitamin B-12) 500 mcg PO DAILY@0800 07/12/19 [Vitamin B-12] Polyethylene Glycol 3350 17 gm PO DAILY 07/12/19 Potassium Chloride 20 meq PO DAILY #0 08/10/19 Zolpidem Tartrate [Ambien] 5 mg PO QHS PRN PRN 5 Days #5 tab 08/10/19 Bisacodyl [Gentle Laxative] 10 mg MO DAILY PRN PRN 08/22/19 Digoxin [Lanoxin] 250 mcg PO DAILY 08/22/19 Diltiazem CD [Cardizem CD] 120 mg PO Q12 08/22/19 Furosemide [Lasix] 60 mg PO DAILY 08/22/19 Lactobacillus Acidophilus 1 ea PO DAILY 08/22/19 [Acidophilus] Levofloxacin [Levaquin] 750 mg PO DAILY 08/22/19 Sennosides/Docusate Sodium [Senna 2 tab PO QHS 08/22/19 Plus 8.6-50 mg Tablet] traMADol [Ultram] 50 mg PO TID 08/22/19 Acetaminophen [Tylenol Tablet] 650 mg PO Q6H PRN PRN tab 08/24/19 Methocarbamol [Robaxin] 500 mg PO TID PRN #42 tab 08/24/19 gabapentin 100 mg capsule 100 mg PO QHS 08/28/19 Lidocaine [Lidocaine Pain Relief] 1 ea TOPICAL DAILY 09/04/19 Ondansetron HCl [Zofran] 4 mg PO Q6H PRN 09/04/19 Past Medical History (Chronic Problems): Chronic Problems (Last Reviewed 09/04/19 @ 14:46 by Bonifacio Conway DO) Back pain (Chronic) Compression fracture (Chronic) Other intervertebral disc degeneration, lumbar region (Chronic) Spinal stenosis, lumbar region with neurogenic claudication (Chronic) Spondylosis without myelopathy or radiculopathy, lumbar region (Chronic) Lumbago with sciatica, right side (Chronic) Unspecified abnormalities of gait and mobility (Chronic) Compression fracture of thoracic vertebra with routine healing (Chronic) ANKUSH (obstructive sleep apnea) (Chronic) Diastolic dysfunction (Chronic) Chronic hypoxemic respiratory failure (Chronic) Chronic anticoagulation (Chronic) Former tobacco use (Chronic) Depression (Chronic) Pulmonary hypertension (Chronic) History of recurrent deep vein thrombosis (DVT) (Chronic) History of pulmonary embolism (Chronic) History of cardioversion (Chronic) January of 2018.....HR not controlled with exertion while in AF on Beta donna and cardizem. Converted to NSR with cardioversion Paroxysmal atrial fibrillation (Chronic) DCCV on 01/31/2018; HTN (hypertension) (Chronic) Iron deficiency anemia (Chronic) Chronic diastolic CHF (congestive heart failure) (Chronic) Atrial fibrillation with RVR (Chronic) Dyslipidemia (Chronic) COPD (chronic obstructive pulmonary disease) (Chronic) Surgical History: cholecystectomy, hysterectomy, - - tailbone surgery. 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 Paternal Family History: Family History (Last Reviewed 09/04/19 @ 14:46 by Bonifacio Conway DO) Sister Heart disease History Items: - Sibling Family History: Family History (Last Reviewed 09/04/19 @ 14:46 by Bonifacio Conway DO) Sister Heart disease History Items: - - Patient notes a sibling specifically her sister with Parkinson's disease and heart disease as well as a brother with Parkinson's disease, asthma and history of blood clots. Smoking Status: Former smoker Review of Systems - Review of Systems General: Reports: Malaise, Weakness, Decreased Appetite, Anorexia. Denies: Fever, Fatigue, Night Sweats Cardiovascular: Denies: Chest Discomfort, Shortness of Breath, Orthopnea, PND, Peripheral Edema, Palpitations, Lightheadedness, Dizziness, Near Syncope, Syncope Respiratory: Denies: Cough, Sputum Production, Hemoptysis Gastrointestinal: Denies: Hematemesis, Hematochezia, Melena Genitourinary: Denies: Dysuria, Hematuria Skin: Denies: Rash Subjectve: Patient laying in bed, answers questions appropriately, somewhat lethargic, no acute distress. Objective: Vital Signs Temp Pulse Resp BP Pulse Ox 97.8 F 80 18 127/67 H 99 09/04/19 13:12 09/04/19 13:12 09/04/19 13:12 09/04/19 13:12 09/04/19 13:12 Oxygen Flow Rate (L/min) 2 Oxygen Delivery Method Nasal Cannula Weight: 158 lb 11.725 oz Body Mass Index (BMI) 25.4 Finger Stick Blood Glucose 166 General: Awake, Alert, Oriented x 3 HEENT: PERRL, EOMI, Sclera Non Icteric Neck: Supple, Good ROM, No Lymph Node Enlargement Lungs: Clear to auscultation Cardiovascular: Regular Rhythm, Normal S1, Normal S2, No Murmurs, No Rubs, No Gallops Vascular: No Carotid Bruits, Normal Femoral Pulses, Normal Radial Pulses, Normal Dorsalis Pedal Pulse, Normal Posterior Tibial Pulses Abdomen: Bowel Sounds Present, Soft, Non Tender, No HSM, No Organomegaly Extremities: No Cyanosis, No Clubbing, No edema Neurological: No Focal Motor or Sensory Deficit 09/04/19 10:34: WBC 17.6 H, RBC 5.16, Hgb 14.9, Hct 47.6 H, MCV 92.2, MCH 28.9, MCHC 31.3 L, Plt Count 242, MPV 11.6, Immature Gran % (Auto) 2.300 H, Neut % (Auto) 82.6 H, Lymph % (Auto) 7.2 L, [place] % (Auto) 7.4, Eos % (Auto) 0.2, Baso % (Auto) 0.3, Absolute Neuts (auto) 14.6 H, Nucleated RBC % 0 09/04/19 10:34: PT 55.9 H, INR 6.2 H*, APTT 75.5 H 09/04/19 10:34: Sodium 138, Potassium 4.0, Chloride 98, Carbon Dioxide 37.0 H, Anion Gap 3 L, BUN 32 H, Creatinine 1.43 H, Est GFR (MDRD) Af Amer 46 L, Est GFR (MDRD) Non-Af 38 L, BUN/Creatinine Ratio 22.4 H, Glucose 158 H, Calcium 9.7, Total Bilirubin 0.80, Troponin I 0.199 H 09/04/19 10:34: Lactic Acid 1.7 09/04/19 10:34: Digoxin 5.55 H* 09/04/19 10:46: pH 7.45, Bicarbonate Actual 40.3 H, POC Total CO2 42, Base Excess 16 H, O2 Saturation 98, ABG pCO2 57.7 H, ABG pO2 100 09/04/19 11:15: Urine Color Yellow, Urine Clarity Clear, Urine pH 6.0, Ur Specific [place] 1.020, Urine Protein 15 H, Urine Glucose (UA) Normal, Urine Ketones 5 H, Urine Occult Blood Negative, Urine Nitrite Negative, Urine Bilirubin Negative, Urine Urobilinogen Normal, Ur Leukocyte Esterase Negative, Urine RBC 0 SEEN, Urine WBC 0 SEEN 09/04/19 14:00: Troponin I 0.168 H Rhythm: EKG: Atrial fibrillation with controlled ventricular response, dynamic upsloping ST segment changes consistent with dig elevation versus ischemia, ECHO: From 07/14/2019 The estimated ejection fraction is 65 %. Unable to assess diastolic dysfunction due to arrhythmia. Mildly dilated right ventricle. The left atrium is mildly enlarged. Mild (1+) tricuspid valve insufficiency. Right ventricular systolic pressure estimated to be 45 mmHg. Mild pulmonary hypertension. Trivial mitral valve insufficiency. Compared to echo report dated 09/08/2018, LV function has remained the same, pt now appears to be in atrial fibrillation and RVSP has increased from 35% to 45% Stress Test: Cardiac Cath: PCI: CT Surgery: Holter monitor: EPS: PPM: CXR: Chest CT Scan: Assessment/Plan 1. Atrial fibrillation: The patient presents Coumadin toxic and elevated digoxin level of 5.5 superimposed on atrial fibrillation with slow ventricular response and dynamic ST segment changes consistent with digoxin serum level elevation versus ischemia. The patient is asymptomatic from a cardiac standpoint. Her main presentation is fatigue, lethargy, decreased p.o. intake, and confusion. I recommend discontinuation of the patient's Coumadin, and changing her to Eliquis or Xarelto once her INR is less than 2.0. In addition I recommend complete discontinuation of digoxin as this is most likely contributing to her symptoms. I do not believe the patient requires Digibind at this time as she is hemodynamically stable, not having any ventricular arrhythmias, and will hopefully respond to cessation of digoxin use. I would recommend starting the patient on a beta-donna or calcium channel donna once her heart rate has improved. Her most recent echocardiogram is as follows from 07/14/2019: The estimated ejection fraction is 65 %. Unable to assess diastolic dysfunction due to arrhythmia. Mildly dilated right ventricle. The left atrium is mildly enlarged. Mild (1+) tricuspid valve insufficiency. Right ventricular systolic pressure estimated to be 45 mmHg. Mild pulmonary hypertension. Trivial mitral valve insufficiency. Compared to echo report dated 09/08/2018, LV function has remained the same, pt now appears to be in atrial fibrillation and RVSP has increased from 35% to 45% I do not believe the patient requires a repeat echocardiogram at this time. I would recommend obtaining a TSH, T4, and cortisol level at baseline. We also consider discontinuing any psychotropic medications which may be contributing to her mental status abnormalities. 2. Coronary artery disease: Patient has dynamic EKG changes possibly consistent with ischemia although she has no anginal symptoms. I see no evidence of a recent stress test in the computer. Once the patient's symptoms improved she may be a candidate for stress test. Would not recommend catheterization given her chronic renal insufficiency. 3. Patient may be seen by Dr. Jaffe going forward, her primary customer associate. Thank you very much for the opportunity to participate in cardiac care of your patient. Consultation time took place between 330 and 4:05 PM. Code Visit Inpatient E&M: 81130 Init Hosp L2
[2019-09-04] MEDS: Multivitamin (Healthy Eyes) Capsule 1 CAP PO (18:39)
[2019-09-04] MEDS: Budesonide Respules 0.5 MG/2 ML AMPUL.NEB. 0.25 MG INHALATION (18:49)
[2019-09-04] MEDS: Senna/Docusate Sodium 1 Tablet 2 TABLET PO (21:05)
[2019-09-04] MEDS: busPIRone 5 MG Tablet 7.5 MG PO (21:06)
[2019-09-04] MEDS: dilTIAZem CD 120 MG Capsule PO (21:06)
[2019-09-05] VITALS (16 sets, daily range): BP systolic 114–129; BP diastolic 49–72; PULSE 72–104; RESP 12–26; TEMP 36.6; O2SAT 95–100
[2019-09-05] MEDS: Ondansetron 4 MG/2 ML Vial IV ×2 (04:46→13:56)
[2019-09-05] MEDS: Lidocaine 5% Patch 3 PATCH TOPICAL (04:59)
[2019-09-05] MEDS: 0.9% Normal Saline 1,000 ML 150 ML IV ×2 (05:03→13:21)
[2019-09-05 06:15] LABS: Absolute Lymphocyte Count 1.09 X10^3/uL (0.83-4.51); Absolute Neutrophil Count 10.5 X10^3/uL (2.0-7.7); Basophil# 0.03 X10^3/uL; Basophil% 0.2 % (0-1); Eosinophil# 0.08 X10^3/uL; Eosinophils% 0.6 % (0-5); Hemoglobin 11.8 g/dL (12.0-15.0); Lymphocyte # 1.09 X10^3/ul (4.0); Lymphocyte % 8.4 % (19-41); Mean Corp Hgb Conc 30.3 g/dL (32-36); Mean Corpuscular Hgb 28.2 pg (27.0-32.0); Mean Corpuscular Volume 93.3 fL (81-99); Mean Platelet Vol. 11.6 fl (6.2-12.0); Monocyte# 1.12 X10^3/uL; Monocyte% 8.6 % (0-10); NRBC Flagged by Analyzer 0 % (0-5); Neutrophil # 10.53 X10^3/uL (2.7-7.7); Neutrophil % 80.8 % (47-70); Platelet Count 172 K/mm3 (150-450); RBC Distribution Width CV 17.3 % (11.6-14.6); RBC Distribution Width SD 59.4 fl (35.1-43.9); Red Blood Count 4.18 M/mm3 (4.2-5.4)
[2019-09-05 06:39] LABS: International Normalized Ratio 6.5
[2019-09-05 06:44] LABS: ALB/GLOB Ratio 0.7 RATIO (0.9-2.4); AST(SGOT) 23 U/L (15-37); Alanine Aminotransfer ALT/SGPT 20 U/L (13-56); Albumin, Serum 2.2 g/dL (3.2-5.0); Alkaline Phosphatase 129 U/L (45-117); Anion Gap 1 (5-15); BUN 29 mg/dL (7-18); BUN/Creat Ratio 40.3 RATIO (10-20); Calcium,Total 8.6 mg/dL (8.5-10.1); Chloride 107 mmol/L (98-107); Creatinine, Serum 0.72 mg/dL (0.55-1.02); EST Glomerular Filtration Rate 84 mL/min (>60); Est Glom Filt Rate - Afr Amer 102 mL/min (>60); Globulin 3.2 g/dL (2.2-4.2); Glucose 90 mg/dL (74-106); Potassium 3.6 mmol/L (3.5-5.1); Protein, Total 5.4 g/dL (6.4-8.2); Sodium Level 143 mmol/L (136-145)
[2019-09-05] MEDS: Budesonide Respules 0.5 MG/2 ML AMPUL.NEB. 0.25 MG INHALATION ×2 (07:36→19:18)
--- NOTE | 2019-09-05 08:24 | EKG12_ITS ---
Test Reason : Blood Pressure : / mmHG Vent. Rate : 076 BPM Atrial Rate : 241 BPM P-R Int : 000 ms QRS Dur : 066 ms QT Int : 358 ms P-R-T Axes : 000 022 261 degrees QTc Int : [address] & T wave abnormality, consider inferior ischemia ST & T wave abnormality, consider anterolateral ischemia Abnormal ECG When compared with ECG of 04-SEP-2019 10:23, MANUAL COMPARISON REQUIRED, DATA IS UNCONFIRMED Confirmed by SARAHY BHAT, KYLEIGH ([id number]), manager editorial PABLITO TRUONG ([id number]) on 09/09/2019 2:42:31 PM Referred By: MAREK Confirmed By:JERMAINE WEATHERS MD
[2019-09-05] MEDS: Cyanocobalamin 500 MCG Tablet PO (08:40)
[2019-09-05] MEDS: Multivitamin (Healthy Eyes) Capsule 1 CAP PO ×2 (08:40→17:59)
[2019-09-05] MEDS: Pantoprazole Sodium 20 MG Tablet PO (08:41)
[2019-09-05] MEDS: Polyethylene Glycol 3350 17 GM PACKET PO (08:41)
--- NOTE | 2019-09-05 08:51 | PN.CARD_ITS ---
Subjectve: Patient seen and examined this morning, patient was on BiPAP upon arrival, was sleeping, easily awoke, answered questions without difficulty. Denied any chest pain. Telemetry showed atrial fibrillation with ST and T wave changes consistent with digoxin, max troponin 0 0.199 and trending downwards. EKG pending. Echo is pending. Objective: Vital Signs Temp Pulse Resp BP Pulse Ox 98 F 77 21 H 127/68 H 95 09/05/19 02:30 09/05/19 08:18 09/05/19 08:18 09/05/19 02:30 09/05/19 08:18 Oxygen Flow Rate (L/min) 2 Oxygen Delivery Method Nasal Cannula Weight: 158 lb 11.725 oz Body Mass Index (BMI) 25.4 Finger Stick Blood Glucose 166 Intake and Output for Last 24 Hours 09/03/19 09/04/19 09/05/19 23:59 23:59 23:59 Intake Total 1170 / 1170 985 / 985 Output Total 150 / 325 425 / 425 Balance 1020 / 845 560 / 560 General: Awake, Alert, Oriented x 3 HEENT: PERRL, EOMI, Sclera Non Icteric Neck: Supple, Good ROM, No Lymph Node Enlargement Lungs: Clear to auscultation Cardiovascular: Irregular Rhythm, Normal S1, Normal S2, No Murmurs, No Rubs, No Gallops Vascular: No Carotid Bruits, Normal Femoral Pulses, Normal Radial Pulses, Normal Dorsalis Pedal Pulse, Normal Posterior Tibial Pulses Abdomen: Bowel Sounds Present, Soft, Non Tender, No HSM, No Organomegaly Extremities: No Cyanosis, No Clubbing, No edema Neurological: No Focal Motor or Sensory Deficit 09/04/19 10:34: WBC 17.6 H, RBC 5.16, Hgb 14.9, Hct 47.6 H, MCV 92.2, MCH 28.9, MCHC 31.3 L, Plt Count 242, MPV 11.6, Immature Gran % (Auto) 2.300 H, Neut % (Auto) 82.6 H, Lymph % (Auto) 7.2 L, [place] % (Auto) 7.4, Eos % (Auto) 0.2, Baso % (Auto) 0.3, Absolute Neuts (auto) 14.6 H, Nucleated RBC % 0 09/04/19 10:34: PT 55.9 H, INR 6.2 H*, APTT 75.5 H 09/04/19 10:34: Sodium 138, Potassium 4.0, Chloride 98, Carbon Dioxide 37.0 H, Anion Gap 3 L, BUN 32 H, Creatinine 1.43 H, Est GFR (MDRD) Af Amer 46 L, Est GFR (MDRD) Non-Af 38 L, BUN/Creatinine Ratio 22.4 H, Glucose 158 H, Calcium 9.7, Total Bilirubin 0.80, Troponin I 0.199 H 09/04/19 10:34: Lactic Acid 1.7 09/04/19 10:34: Digoxin 5.55 H* 09/04/19 10:46: pH 7.45, Bicarbonate Actual 40.3 H, POC Total CO2 42, Base Excess 16 H, O2 Saturation 98, ABG pCO2 57.7 H, ABG pO2 100 09/04/19 11:15: Urine Color Yellow, Urine Clarity Clear, Urine pH 6.0, Ur Specific [place] 1.020, Urine Protein 15 H, Urine Glucose (UA) Normal, Urine Ketones 5 H, Urine Occult Blood Negative, Urine Nitrite Negative, Urine Bilirubin Negative, Urine Urobilinogen Normal, Ur Leukocyte Esterase Negative, Urine RBC 0 SEEN, Urine WBC 0 SEEN 09/04/19 14:00: Troponin I 0.168 H 09/04/19 17:08: Troponin I 0.081 H 09/05/19 06:05: WBC 13.0 H, RBC 4.18 L, Hgb 11.8 L, Hct 39.0, MCV 93.3, MCH 28.2, MCHC 30.3 L, Plt Count 172, MPV 11.6, Immature Gran % (Auto) 1.400 H, Neut % (Auto) 80.8 H, Lymph % (Auto) 8.4 L, [place] % (Auto) 8.6, Eos % (Auto) 0.6, Baso % (Auto) 0.2, Absolute Neuts (auto) 10.5 H, Nucleated RBC % 0 09/05/19 06:05: PT 58.0 H, INR 6.5 H* 09/05/19 06:05: Sodium 143, Potassium 3.6, Chloride 107, Carbon Dioxide 35.0 H, Anion Gap 1 L, BUN 29 H, Creatinine 0.72, Est GFR (MDRD) Af Amer 102, Est GFR (MDRD) Non-Af 84, BUN/Creatinine Ratio 40.3 H, Glucose 90, Calcium 8.6, Total Bilirubin 0.50 Rhythm: EKG: ECHO: Stress Test: Cardiac Cath: PCI: CT Surgery: Holter monitor: EPS: PPM: CXR: Chest CT Scan: Medical Necessity - Tobacco Use Smoking Status: Former smoker Assessment/Plan 1. Atrial fibrillation: The patient presents Coumadin toxic and elevated digoxin level of 5.5 superimposed on atrial fibrillation with slow ventricular response and dynamic ST segment changes consistent with digoxin serum level elevation versus ischemia. The patient is asymptomatic from a cardiac standpo int. Her main presentation is fatigue, lethargy, decreased p.o. intake, and confusion. CT scan of her head negative for acute bleed. I recommend discontinuation of the patient's Coumadin, and changing her to Eliquis or Xarelto once her INR is less than 2.0. In addition I recommend complete discontinuation of digoxin as this is most likely contributing to her symptoms. I would recommend starting the patient on a beta-donna or calcium channel donna once her heart rate has improved. Cardizem CD 120 mg started today. Her most recent echocardiogram is as follows from 07/14/2019: The estimated ejection fraction is 65 %. Unable to assess diastolic dysfunction due to arrhythmia. Mildly dilated right ventricle. The left atrium is mildly enlarged. Mild (1+) tricuspid valve insufficiency. Right ventricular systolic pressure estimated to be 45 mmHg. Mild pulmonary hypertension. Trivial mitral valve insufficiency. Compared to echo report dated 09/08/2018, LV function has remained the same, pt now appears to be in atrial fibrillation and RVSP has increased from 35% to 45% I would recommend obtaining a TSH, T4, and cortisol level at baseline. We also consider discontinuing any psychotropic medications which may be contributing to her mental status abnormalities. 2. Coronary artery disease: Patient has dynamic EKG changes possibly consistent with ischemia although she has no anginal symptoms. I see no evidence of a recent stress test in the computer. Repeat echo is pending. Once the patient's symptoms improved she may be a candidate for stress test. Would only recommend catheterization if she has a significant amount of ischemia detected on stress testing. 3. Patient may be seen by Dr. Jaffe going forward, her primary on site services specialist. Thank you very much for the opportunity to participate in cardiac care of your patient. Code Visit Inpatient E&M: 40990 Subs Hosp L2
[2019-09-05] MEDS: dilTIAZem CD 120 MG Capsule PO ×2 (09:56→21:33)
--- NOTE | 2019-09-05 12:05 | CASEMGMT ---
YAO faxed information to [facility] where patient resides. YAO also called Stacy at [facility], but she was unavailable. YAO will check back with Stacy again. Regla VIZCARRA MSW
[2019-09-05 13:06] LABS: T4 Free Direct 1.15 ng/dL (0.76-1.46)
--- NOTE | 2019-09-05 14:24 | PN_ITS ---
<Kris Pollard - Last Filed: 09/05/19 14:24> Patient Problems: Active and Suspected Problems (Last Reviewed 09/04/19 @ 17:18 by JOSEPH Callahan) Encephalopathy acute (Acute) Elevated troponin (Acute) Digoxin toxicity (Acute) HEIDI (acute kidney injury) (Acute) Abnormal EKG (Acute) Reason for Visit: confusion Subjective: Pt alert and oriented today holding a normal conversation. She is somewhat lethargic but rousable. She has no CP, no SOB, no tightness/heaviness, no LH/Dizziness, no palpitations. She complains of nausea without vomiting and feeling tired. Vitals/I&O's: Vital Signs Temp Pulse Resp BP Pulse Ox 97.8 F 86 18 129/72 H 98 09/05/19 09:50 09/05/19 09:50 09/05/19 09:50 09/05/19 09:50 09/05/19 09:50 Oxygen Flow Rate (L/min) 2 Oxygen Delivery Method Nasal Cannula Weight: 158 lb 11.725 oz Body Mass Index (BMI) 25.4 Finger Stick Blood Glucose 166 Intake and Output for Last 24 Hours 09/03/19 09/04/19 09/05/19 23:59 23:59 23:59 Intake Total 1170 / 1170 1984 Output Total 150 / 325 425 / 425 Balance 1020 / 845 1560 / 1560 General: Alert, Oriented x3, Cooperative HEENT: Atraumatic, PERRLA, EOMI, Normocephalic Neck: Supple, No JVD, Negative Carotid Bruits Lungs: Clear to auscultation, Normal air movement Cardiovascular: No murmurs, Irregular Rate Abdomen: Bowel Sounds Present, Soft, Non Tender Extremities: No edema, Capillary Refill Less than 3 Seconds Skin: No rashes, No breakdown Musculoskeletal: No Tenderness to Palpation of Joints or Extremities Neurological: Cranial nerves II-XII grossly intact Psych/Mental Status: Normal Affect, Appropriate, Alert and oriented to time, place, person, mood and affect Microbiology Past 72 Hours 09/04/19 11:15 Urine Catheter - Catheter Urine Culture - Preliminary Culture exhibits no growth. Laboratory Results 09/04/19 10:34: TSH 4.10 H 09/04/19 14:00: Troponin I 0.168 H 09/04/19 17:08: Troponin I 0.081 H 09/05/19 06:05: WBC 13.0 H, RBC 4.18 L, Hgb 11.8 L, Hct 39.0, MCV 93.3, MCH 28.2, MCHC 30.3 L, RDW Std Deviation 59.4 H, RDW Coeff of Laura 17.3 H, Plt Count 172, MPV 11.6, Immature Gran % (Auto) 1.400 H, Neut % (Auto) 80.8 H, Lymph % (Auto) 8.4 L, Crowley % (Auto) 8.6, Eos % (Auto) 0.6, Baso % (Auto) 0.2, Absolute Neuts (auto) 10.5 H, Absolute Lymphs (auto) 1.09, Nucleated RBC % 0 09/05/19 06:05: PT 58.0 H, INR 6.5 H* 09/05/19 06:05: Sodium 143, Potassium 3.6, Chloride 107, Carbon Dioxide 35.0 H, Anion Gap 1 L, BUN 29 H, Creatinine 0.72, Estim Creat Clear Calc 45.50, Est GFR (MDRD) Af Amer 102, Est GFR (MDRD) Non-Af 84, BUN/Creatinine Ratio 40.3 H, Glucose 90, Calcium 8.6, Total Bilirubin 0.50, AST 23, ALT 20, Alkaline Phosphat ase 129 H, Total Protein 5.4 L, Albumin 2.2 L, Globulin 3.2, Albumin/Globulin Ratio 0.7 L 09/05/19 06:05: Free T4 1.15 09/05/19 09:05: Cortisol 30.00 H Current Medications Acetaminophen (Tylenol) 650 mg PO Q6H PRN PRN PRN Reason: Pain Score 1-10/Temp > 100.7 F Albuterol Sulfate (Ventolin Aerosols) 2.5 mg INHALATION Q2H PRN PRN PRN Reason: SOB/Wheezing Bisacodyl (Dulcolax) 10 mg RECTAL DAILY PRN PRN PRN Reason: Constipation Budesonide (Pulmicort Aerosol) 0.25 mg INHALATION Q12H.RT [facility] Last Admin: 09/05/19 07:36 Dose: 0.25 mg Documented by: Buspirone HCl (Buspar) 7.5 mg PO QHS [facility] Last Admin: 09/04/19 21:06 Dose: 7.5 mg Documented by: Cyanocobalamin (Vitamin B12) 500 mcg PO DAILY@0800 [facility] Last Admin: 09/05/19 08:40 Dose: 500 mcg Documented by: Diltiazem HCl (Cardizem Cd) 120 mg PO Q12 [facility] Last Admin: 09/05/19 09:56 Dose: 120 mg Documented by: Ergocalciferol (Vitamin D) 50,000 unit PO TH [facility] Last Admin: 09/05/19 08:41 Dose: 50,000 unit Documented by: Glucagon () 1 mg IM .X1 PRN PRN Reason: Hypoglycemia Sodium Chloride () 1,000 mls @ 150 mls/hr IV .Q6H40M [facility] Last Admin: 09/05/19 13:21 Dose: 150 mls/hr Documented by: Dextrose (Dextrose 10%-Water) 250 mls @ 999 mls/hr IV .Q16M PRN; Protocol PRN Reason: HYPOGLYCEMIA Lactobacillus Acidophilus (Acidophilus) 1 tablet PO DAILY [facility] Last Admin: 09/05/19 08:41 Dose: 1 tablet Documented by: Lidocaine (Lidoderm Patch) 3 patch TOPICAL DAILY@0600 [facility]; Protocol Last Admin: 09/05/19 04:59 Dose: 3 patch Documented by: Multivitamins/Minerals (Healthy Eyes (Bkc)) 1 capsule PO BIDCM [facility] Last Admin: 09/05/19 08:40 Dose: 1 capsule Documented by: Nitroglycerin (Nitrostat) 0.4 mg SUBLINGUAL Q5M PRN PRN Reason: CARDIAC/CHEST PAIN Ondansetron HCl (Zofran) 4 mg IV Q8H PRN PRN PRN Reason: NAUSEA/VOMITING Last Admin: 09/05/19 13:56 Dose: 4 mg Documented by: Pantoprazole Sodium (Protonix) 20 mg PO DAILY [facility] Last Admin: 09/05/19 08:41 Dose: 20 mg Documented by: Polyethylene Glycol (Miralax) 17 gm PO DAILY [facility] Last Admin: 09/05/19 08:41 Dose: 17 gm Documented by: Senna/Docusate Sodium (Senokot-S, Caterina-Colace) 2 tablet PO QHS [facility] Last Admin: 09/04/19 21:05 Dose: 2 tablet Documented by: Sucralfate (Carafate) 1 gm PO 1HR_ACHS PRN PRN Reason: GI UPSET Medical Necessity - Tobacco Use Smoking Status: Former smoker Assessment/Plan All Active Problems (Last Reviewed 09/04/19 @ 17:18 by JOSEPH Callahan) Inflammation of right sacroiliac joint (Acute) Generalized muscle ache (Acute) Encephalopathy acute (Acute) Elevated troponin (Acute) Digoxin toxicity (Acute) HEIDI (acute kidney injury) (Acute) Abnormal EKG (Acute) Lethargy (Acute) Leukocytosis (Acute) 1. Bradycardia, lethargy, confusion - suspected 2/2 dig toxicity. dig elevated yesterday and pt received digibind. Rate normal today. This may have been related to HEIDI, which has now resolved. TSH mildly elevated, Ft4 normal. Cortisol mildly elevated at 30.00. UA negative. -Echo with EF 65%, RVSP 51 mmHg, afib. -CT brain negative for acute process -CXR neg for acute process 2. Atrial fibrillation - in afib, rate controlled. INR elevated - hold warfarin. off dig. on cardizem. bp stable. 3. Indeterminate trop - cardiology following. Max 0.199, trending down. Last 0.081. No CP. May need stress test per cardiology. 4. Encephalopathy resolved. pt should remain off sedating meds - ambien, gabapentin, tramadol. 5. HEIDI resolved 6. Elevated INR - allow to drift down. 7. T11 compression fracture - ptot, SNF resident 8. COPD - no acute exacerbation, prn aerosols DVT ppx: inr supratherapeutic DC planning: return to snf when appropriate This patient was seen by Kris Pollard PA-C under the supervision of Dr. Conway. <Bonifacio Conway - Last Filed: 09/05/19 15:15> Vitals/I&O's: Vital Signs Temp Pulse Resp BP Pulse Ox 36.6 C 85 18 129/72 H 98 09/05/19 09:50 09/05/19 14:51 09/05/19 09:50 09/05/19 09:50 09/05/19 09:50 Oxygen Flow Rate (L/min) 2 Oxygen Delivery Method Nasal Cannula Weight: 72 kg Body Mass Index (BMI) 25.4 Finger Stick Blood Glucose 166 Intake and Output for Last 24 Hours 09/03/19 09/04/19 09/05/19 23:59 23:59 23:59 Intake Total 1170 / 1170 1984 Output Total 150 / 325 425 / 425 Balance 1020 / 845 1560 / 1560 General: Alert, Cooperative HEENT: Atraumatic, Normocephalic Neck: No Nodes, Trachea Midline Lungs: Clear to auscultation, Normal air movement, No rhonchi, No wheeze Cardiovascular: No murmurs, Irregular Rate Abdomen: Bowel Sounds Present, Soft, Non Tender Extremities: No edema, No Calf Tenderness Skin: No rashes, No breakdown Psych/Mental Status: Normal Affect, Appropriate Microbiology Past 72 Hours 09/04/19 11:15 Urine Catheter - Catheter Urine Culture - Preliminary Culture exhibits no growth. Laboratory Results 09/04/19 10:34: TSH 4.10 H 09/04/19 17:08: Troponin I 0.081 H 09/05/19 06:05: WBC 13.0 H, RBC 4.18 L, Hgb 11.8 L, Hct 39.0, MCV 93.3, MCH 28.2, MCHC 30.3 L, RDW Std Deviation 59.4 H, RDW Coeff of Laura 17.3 H, Plt Count 172, MPV 11.6, Immature Gran % (Auto) 1.400 H, Neut % (Auto) 80.8 H, Lymph % (Auto) 8.4 L, Crowley % (Auto) 8.6, Eos % (Auto) 0.6, Baso % (Auto) 0.2, Absolute Neuts (auto) 10.5 H, Absolute Lymphs (auto) 1.09, Nucleated RBC % 0 09/05/19 06:05: PT 58.0 H, INR 6.5 H* 09/05/19 06:05: Sodium 143, Potassium 3.6, Chloride 107, Carbon Dioxide 35.0 H, Anion Gap 1 L, BUN 29 H, Creatinine 0.72, Estim Creat Clear Calc 45.50, Est GFR (MDRD) Af Amer 102, Est GFR (MDRD) Non-Af 84, BUN/Creatinine Ratio 40.3 H, Glucose 90, Calcium 8.6, Total Bilirubin 0.50, AST 23, ALT 20, Alkaline Phosphatase 129 H, Total Protein 5.4 L, Albumin 2.2 L, Globulin 3.2, Albumin/Globulin Ratio 0.7 L 09/05/19 06:05: Free T4 1.15 09/05/19 09:05: Cortisol 30.00 H Current Medications Acetaminophen (Tylenol) 650 mg PO Q6H PRN PRN PRN Reason: Pain Score 1-10/Temp > 100.7 F Albuterol Sulfate (Ventolin Aerosols) 2.5 mg INHALATION Q2H PRN PRN PRN Reason: SOB/Wheezing Bisacodyl (Dulcolax) 10 mg RECTAL DAILY PRN PRN PRN Reason: Constipation Budesonide (Pulmicort Aerosol) 0.25 mg INHALATION Q12H.RT [facility] Last Admin: 09/05/19 07:36 Dose: 0.25 mg Documented by: Buspirone HCl (Buspar) 7.5 mg PO QHS [facility] Last Admin: 09/04/19 21:06 Dose: 7.5 mg Documented by: Cyanocobalamin (Vitamin B12) 500 mcg PO DAILY@0800 [facility] Last Admin: 09/05/19 08:40 Dose: 500 mcg Documented by: Diltiazem HCl (Cardizem Cd) 120 mg PO Q12 [facility] Last Admin: 09/05/19 09:56 Dose: 120 mg Documented by: Ergocalciferol (Vitamin D) 50,000 unit PO TH [facility] Last Admin: 09/05/19 08:41 Dose: 50,000 unit Documented by: Glucagon () 1 mg IM .X1 PRN PRN Reason: Hypoglycemia Sodium Chloride () 1,000 mls @ 150 mls/hr IV .Q6H40M [facility] Last Admin: 09/05/19 13:21 Dose: 150 mls/hr Documented by: Dextrose (Dextrose 10%-Water) 250 mls @ 999 mls/hr IV .Q16M PRN; Protocol PRN Reason: HYPOGLYCEMIA Lactobacillus Acidophilus (Acidophilus) 1 tablet PO DAILY [facility] Last Admin: 09/05/19 08:41 Dose: 1 tablet Documented by: Lidocaine (Lidoderm Patch) 3 patch TOPICAL DAILY@0600 [facility]; Protocol Last Admin: 09/05/19 04:59 Dose: 3 patch Documented by: Multivitamins/Minerals (Healthy Eyes (Bkc)) 1 capsule PO BIDCM [facility] Last Admin: 09/05/19 08:40 Dose: 1 capsule Documented by: Nitroglycerin (Nitrostat) 0.4 mg SUBLINGUAL Q5M PRN PRN Reason: CARDIAC/CHEST PAIN Ondansetron HCl (Zofran) 4 mg IV Q8H PRN PRN PRN Reason: NAUSEA/VOMITING Last Admin: 09/05/19 13:56 Dose: 4 mg Documented by: Pantoprazole Sodium (Protonix) 20 mg PO DAILY [facility] Last Admin: 09/05/19 08:41 Dose: 20 mg Documented by: Polyethylene Glycol (Miralax) 17 gm PO DAILY [facility] Last Admin: 09/05/19 08:41 Dose: 17 gm Documented by: Senna/Docusate Sodium (Senokot-S, Caterina-Colace) 2 tablet PO QHS [facility] Last Admin: 09/04/19 21:05 Dose: 2 tablet Documented by: Sucralfate (Carafate) 1 gm PO 1HR_ACHS PRN PRN Reason: GI UPSET STROKE Vital Signs/Narrative: Vital Signs Pulse 09/05/19 14:51 85 Assessment/Plan Patient seen and examined independently. Data reviewed. I agree with the above note by the physician assistant county attorney. 1. Encephalopathy * improving * may be toxic due to digoxin toxicity * hold dig and other potentiating medications * supportive mgmt * PCo2 up, so may also be contributing 2. Digoxin toxicity * unclear how much her symptoms are due to dig toxicity * give Digibind 4 vials x 1 * hold digoxin. Per cardiology, will not resume. * may be exacerbated by HEIDI 3. Elevated troponins * unclear significance * asymptomatic * Consult cards ( Dr. Martini) * echo EF 65% 4. HEIDI * suspect prerenal * HLIV * resolved 5. Coagulopathy * no bleeding * likely due to poor oral intake while taking warfarin * monitor * hold warfarin 6. T11 cmprsn fracture * conservative mgmt 7. VTE proph: low risk as already anticoagulated DW patient's son. Code Visit Inpatient E&M: 76522 Subs Hosp L2
[2019-09-05] MEDS: Sucralfate 1 GM Tablet PO (15:37)
[2019-09-05] MEDS: Acetaminophen 325 MG Tablet 650 MG PO (15:37)
[2019-09-05] MEDS: Albuterol 2.5 MG/3 ML VIAL.NEB. INHALATION (19:18)
--- NOTE | 2019-09-05 19:19 | CPS ---
Pulmicort givat .25mg
[2019-09-05] MEDS: Senna/Docusate Sodium 1 Tablet 2 TABLET PO (21:33)
[2019-09-05] MEDS: busPIRone 5 MG Tablet 7.5 MG PO (21:33)
[2019-09-05] MEDS: 0.9% Saline Lock 10 ML Syringe IV (21:34)
[2019-09-06] VITALS (21 sets, daily range): BP systolic 122–141; BP diastolic 71–98; PULSE 74–91; RESP 12–30; TEMP 36.3–36.6; O2SAT 92–99
[2019-09-06] MEDS: Lidocaine 5% Patch 1 PATCH TOPICAL (05:55)
--- NOTE | 2019-09-06 05:55 | EKG12_ITS ---
Test Reason : ROUTINE Blood Pressure : / mmHG Vent. Rate : 079 BPM Atrial Rate : 069 BPM P-R Int : 000 ms QRS Dur : 068 ms QT Int : 344 ms P-R-T Axes : 000 012 231 degrees QTc Int : 394 ms Atrial fibrillation Low voltage QRS ST & T wave abnormality, consider inferior ischemia ST & T wave abnormality, consider anterolateral ischemia Abnormal ECG When compared with ECG of 04-SEP-2019 14:59, MANUAL COMPARISON REQUIRED, DATA IS UNCONFIRMED Confirmed by SARAHY BHAT, KYLEIGH ([id number]), editor trade journal PABLITO TRUONG ([id number]) on 09/09/2019 2:50:11 PM Referred By: ERNESTINE Confirmed By:JERMAINE WEATHERS MD
[2019-09-06] MEDS: Sucralfate 1 GM Tablet PO ×3 (07:58→22:01)
[2019-09-06] MEDS: Budesonide Respules 0.5 MG/2 ML AMPUL.NEB. 0.25 MG INHALATION ×2 (08:32→21:55)
[2019-09-06 08:39] LABS: Prothrombin Time (Protime)PT. 50.3 SECONDS (11.7-14.9)
[2019-09-06 08:44] LABS: Anion Gap 2 (5-15); BUN 23 mg/dL (7-18); BUN/Creat Ratio 44.4 RATIO (10-20); Calcium,Total 8.7 mg/dL (8.5-10.1); Chloride 107 mmol/L (98-107); Creatinine, Serum 0.52 mg/dL (0.55-1.02); EST Glomerular Filtration Rate 123 mL/min (>60); Est Glom Filt Rate - Afr Amer 148 mL/min (>60); Glucose 102 mg/dL (74-106); Potassium 3.7 mmol/L (3.5-5.1); Sodium Level 145 mmol/L (136-145)
[2019-09-06 08:50] LABS: International Normalized Ratio 5.4
--- NOTE | 2019-09-06 08:56 | PCM.PN.CARD ---
Subjectve: The patient appears to be awake and alert. She denies ongoing chest discomfort. She is chronically short of breath and dyspneic. She denies ongoing peripheral pitting edema. Objective: Vital Signs Temp Pulse Resp BP Pulse Ox 97.9 F 84 18 140/98 H 96 09/06/19 07:46 09/06/19 07:46 09/06/19 07:46 09/06/19 07:46 09/06/19 07:47 Oxygen Flow Rate (L/min) 2 Oxygen Delivery Method Nasal Cannula Weight: 158 lb 11.725 oz Body Mass Index (BMI) 25.4 Finger Stick Blood Glucose 166 Intake and Output for Last 24 Hours 09/04/19 09/05/19 09/06/19 23:59 23:59 23:59 Intake Total 1170 / 1170 3567.5 / 3567.5 150 / 150 Output Total 150 / 325 425 / 425 0 / 0 Balance 1020 / 845 3142.5 / 3142.5 150 / 150 General: Awake, Cooperative HEENT: Atraumatic, Normocephalic, PERRL, EOMI, Sclera Non Icteric Oral: Moist Mucosa Neck: Supple, Good ROM, No JVD Lungs: - - Diminished breath sounds bilaterally Cardiovascular: Irregular Rhythm, Normal S1, Normal S2 Abdomen: Bowel Sounds Present, Soft, Non Tender Extremities: Trace RLE Edema, Trace LLE Edema Psych/Mental Status: Appropriate 09/06/19 06:55: PT 50.3 H, INR 5.4 H* 09/06/19 06:55: Sodium 145, Potassium 3.7, Chloride 107, Carbon Dioxide 36.0 H, Anion Gap 2 L, BUN 23 H, Creatinine 0.52 L, Est GFR (MDRD) Af Amer 148, Est GFR (MDRD) Non-Af 123, BUN/Creatinine Ratio 44.4 H, Glucose 102, Calcium 8.7 Rhythm: Atrial fibrillation EKG: Atrial fibrillation; low voltage QRS limb leads; ST and T wave changes: Consider metabolic effect, medication effect (digitalis), myocardial ischemia ECHO: Interpretation Summary The estimated ejection fraction is 65 %. Unable to assess diastolic dysfunction due to arrhythmia. The right atrium is mildly enlarged. Mild (1+) tricuspid valve insufficiency. Right ventricular systolic pressure estimated to be 51 mmHg. Moderate pulmonary hypertension. Compared to echo report dated 07/15/2019, no appreciable changes noted. Patient appears to be in atrial fibrillation on today's exam. Medical Necessity - Tobacco Use Smoking Status: Former smoker Assessment/Plan 1. Atrial fibrillation The patient remains in atrial fibrillation. She has been treated medically in the past with a combination of agents both orally and intravenously to control her rate. At the present time she is continuing her oral calcium channel antagonist therapy. Her digitalis therapy, which appeared to assist with her rate control in the past, is on hold secondary to concerns of digitalis intoxication. She has been on anticoagulant therapy as well. Her anticoagulant therapy is being adjusted based upon concerns of warfarin/Coumadin intoxication-elevated levels. 2. Abnormal cardiac enzymes She does have indeterminate troponin I levels. The etiology is unclear at this time whether this truly represents an underlying CAD process versus a type II non-Yoselin CAD related event. Her ECG has demonstrated diffuse nonspecific ST and T wave changes which raise a differential diagnosis of an underlying metabolic effect versus medication effect versus myocardial ischemia. It may not be unreasonable, after she is clinically improved from her recent presentation, to consider her for further noninvasive valuation such as a pharmacologic stress nuclear imaging study to evaluate for obvious coronary ischemia that would warrant further invasive evaluation with diagnostic cardiac catheterization. 3. Digitalis intoxication Her digitalis level was elevated. It is unclear whether this was related to interaction with respect to previous medications, etc. At the present time her digoxin is on hold. Her levels are being followed. 4. Warfarin/Coumadin intoxication Her INR level was elevated. Again her anticoagulation is being adjusted to bring this under better control. 5. Chronic diastolic mediated CHF The patient does have a history of chronic diastolic mediated CHF. At the moment she appears without acute symptoms. She will need to continue follow-up of her volume status with adjustment of medications as needed. 6. COPD She does have a longstanding history of COPD. She continues evaluation care per internal medicine and pulmonology. 7. Pulmonary hypertension There is been concerns of underlying COPD with pulmonary hypertension as well as potentially cor pulmonale and right heart failure in the past. At the moment she continues supportive therapy with oxygen therapy as well as medical management. 8. Hyperlipidemia She will continue medical therapy as deemed appropriate. 9. Hypertension Her blood pressure be followed. Her medications can be adjusted as needed. 10. 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 She will need to continue anticoagulant therapy with adjustment of her levels. Comment: The patient's case was discussed and reviewed with the patient and Dr. Conway. This note was generated using a voice recognition system and there may be incorrect words, spelling or punctuation that were not noted when reviewing the office note prior to saving.
[2019-09-06 09:04] LABS: Digoxin Level 2.14 ng/mL (0.80-2.00)
[2019-09-06] MEDS: dilTIAZem CD 120 MG Capsule PO ×2 (09:44→22:01)
[2019-09-06] MEDS: Multivitamin (Healthy Eyes) Capsule 1 CAP PO (09:44)
[2019-09-06] MEDS: Pantoprazole Sodium 20 MG Tablet PO (09:44)
[2019-09-06] MEDS: Cyanocobalamin 500 MCG Tablet PO (09:44)
[2019-09-06] MEDS: Polyethylene Glycol 3350 17 GM PACKET PO (09:45)
--- NOTE | 2019-09-06 09:59 | RAD_ITS ---
STUDY: X-RAY CHEST REASON FOR EXAM: Female, 73 years old. SOB TECHNIQUE: AP and lateral views of the chest. COMPARISON: Comparison is made with prior study of September 04, 2019. FINDINGS: EKG electrodes are seen. Since prior study, there has been a mild degree of increased markings at the lung bases suggestive of atelectasis. This is more prominent on the left side. There is blunting of the left cosmetic angle. Normal size heart. Normal mediastinum and betty. Normal visualized pulmonary arteries. There is atherosclerotic calcification of the aortic arch with tortuosity. There is demineralization of the osseous structures. Normal visualized ribs, clavicles, and shoulders. There is no demonstrated abnormality of the visualized soft tissue structures of the upper abdomen. RAD/Chest PA and Lateral IMPRESSION: Slight progression of the increased markings at the lung bases suggestive of bibasilar atelectasis. Electronically Signed: Nathen Dickinson, at 12:16 EST , Service support ,
--- NOTE | 2019-09-06 11:05 | CASEMGMT ---
SW spoke with patient's son. He was expressing that they would possibly like patient to go to a different care home. He was also asking about Palliative Care. SW spoke with him, introduced self and role at [facility]. YAO explained that physician feels patient will likely be ready tomorrow. SW explained that going back to the [facility] she would not need insurance to authorize it since she is there retirement. However, if she goes someplace new insurance would need to authorize it. Since she will be ready tomorrow it would be best if she went back to [facility] and they can assist with transferring to another facility. Otherwise it would delay her discharge from the hospital. SW also told him that [facility] is not in network with her insurance. (They had been looking at [facility]). SW gave him a list of facilities that are in network with her insurance. SW then brought up Palliative Care. He said they made it sound like she could not have therapy and Palliative Care at the same time. SW explained that she can have both. YAO explained if she went Hospice she would not be able to have both. He said he thinks that would be a good program. YAO told him SW agrees with this. He said his sister will be in later today who is patient's healthcare Power of Cloth Printing Inspector. SW will talk with her and patient once she comes in to the hospital. Regla ANDERSON
--- NOTE | 2019-09-06 12:29 | PN_ITS ---
<Kris Pollard - Last Filed: 09/06/19 12:29> Patient Problems: Active and Suspected Problems (Last Reviewed 09/04/19 @ 17:18 by JOSEPH Callahan) Encephalopathy acute (Acute) Elevated troponin (Acute) Digoxin toxicity (Acute) HEIDI (acute kidney injury) (Acute) Abnormal EKG (Acute) Reason for Visit: sob Subjective: Patient is resting in chair at bedside in NAD. She does however feel that she has some increased SOB this AM. No cough, no fever/chills, no LE edema, no Chest pain, no GI upset, No palpitations. Rate stable. Vitals/I&O's: Vital Signs Temp Pulse Resp BP Pulse Ox 97.9 F 85 23 H 140/98 H 97 09/06/19 07:46 09/06/19 08:30 09/06/19 08:30 09/06/19 07:46 09/06/19 08:30 Oxygen Flow Rate (L/min) 2 Oxygen Delivery Method Bi-pap Weight: 158 lb 11.725 oz Body Mass Index (BMI) 25.4 Finger Stick Blood Glucose 166 Intake and Output for Last 24 Hours 09/04/19 09/05/19 09/06/19 23:59 23:59 23:59 Intake Total 1170 / 1170 3567.5 / 3567.5 150 / 150 Output Total 150 / 325 425 / 425 0 / 0 Balance 1020 / 845 3142.5 / 3142.5 150 / 150 General: Alert, Oriented x3, Cooperative HEENT: Atraumatic, PERRLA, EOMI, Normocephalic Neck: Supple, No JVD, Negative Carotid Bruits Lungs: Clear to auscultation, Normal air movement Cardiovascular: Regular rate, Irregular Rate Abdomen: Bowel Sounds Present, Soft, Non Tender Extremities: No edema, Capillary Refill Less than 3 Seconds Skin: No rashes, No breakdown Musculoskeletal: No Tenderness to Palpation of Joints or Extremities Neurological: Cranial nerves II-XII grossly intact Psych/Mental Status: Normal Affect, Appropriate, Alert and oriented to time, place, person, mood and affect Microbiology Past 72 Hours 09/04/19 11:15 Urine Catheter - Catheter Urine Culture - Final Culture exhibits no growth. Laboratory Results 09/05/19 06:05: Free T4 1.15 09/06/19 06:55: PT 50.3 H, INR 5.4 H* 09/06/19 06:55: Sodium 145, Potassium 3.7, Chloride 107, Carbon Dioxide 36.0 H, Anion Gap 2 L, BUN 23 H, Creatinine 0.52 L, Estim Creat Clear Calc 45.50, Est GFR (MDRD) Af Amer 148, Est GFR (MDRD) Non-Af 123, BUN/Creatinine Ratio 44.4 H, Glucose 102, Calcium 8.7 09/06/19 06:55: Digoxin 2.14 H* Current Medications Acetaminophen (Tylenol) 650 mg PO Q6H PRN PRN PRN Reason: Pain Score 1-10/Temp > 100.7 F Last Admin: 09/05/19 15:37 Dose: 650 mg Documented by: Albuterol Sulfate (Ventolin Aerosols) 2.5 mg INHALATION Q2H PRN PRN PRN Reason: SOB/Wheezing Last Admin: 09/05/19 19:18 Dose: 2.5 mg Documented by: Bisacodyl (Dulcolax) 10 mg RECTAL DAILY PRN PRN PRN Reason: Constipation Budesonide (Pulmicort Aerosol) 0.25 mg INHALATION Q12H.RT [facility] Last Admin: 09/06/19 08:32 Dose: 0.25 mg Documented by: Buspirone HCl (Buspar) 7.5 mg PO QHS [facility] Last Admin: 09/05/19 21:33 Dose: 7.5 mg Documented by: Cyanocobalamin (Vitamin B12) 500 mcg PO DAILY@0800 [facility] Last Admin: 09/06/19 09:44 Dose: 500 mcg Documented by: Diltiazem HCl (Cardizem Cd) 120 mg PO Q12 [facility] Last Admin: 09/06/19 09:44 Dose: 120 mg Documented by: Ergocalciferol (Vitamin D) 50,000 unit PO TH [facility] Last Admin: 09/05/19 08:41 Dose: 50,000 unit Documented by: Glucagon () 1 mg IM .X1 PRN PRN Reason: Hypoglycemia Dextrose (Dextrose 10%-Water) 250 mls @ 999 mls/hr IV .Q16M PRN; Protocol PRN Reason: HYPOGLYCEMIA Lactobacillus Acidophilus (Acidophilus) 1 tablet PO DAILY [facility] Last Admin: 09/06/19 09:44 Dose: 1 tablet Documented by: Lidocaine (Lidoderm Patch) 1 patch TOPICAL DAILY@0600 [facility]; Protocol Last Admin: 09/06/19 05:55 Dose: 1 patch Documented by: Multivitamins/Minerals (Healthy Eyes (Bkc)) 1 capsule PO BIDCM [facility] Last Admin: 09/06/19 09:44 Dose: 1 capsule Documented by: Nitroglycerin (Nitrostat) 0.4 mg SUBLINGUAL Q5M PRN PRN Reason: CARDIAC/CHEST PAIN Ondansetron HCl (Zofran) 4 mg IV Q8H PRN PRN PRN Reason: NAUSEA/VOMITING Last Admin: 09/05/19 13:56 Dose: 4 mg Documented by: Pantoprazole Sodium (Protonix) 20 mg PO DAILY [facility] Last Admin: 09/06/19 09:44 Dose: 20 mg Documented by: Polyethylene Glycol (Miralax) 17 gm PO DAILY [facility] Last Admin: 09/06/19 09:45 Dose: 17 gm Documented by: Senna/Docusate Sodium (Senokot-S, Caterina-Colace) 2 tablet PO QHS [facility] Last Admin: 09/05/19 21:33 Dose: 2 tablet Documented by: Sucralfate (Carafate) 1 gm PO 1HR_ACHS PRN PRN Reason: GI UPSET Last Admin: 09/06/19 07:58 Dose: 1 gm Documented by: STROKE Vital Signs/Narrative: Vital Signs Pulse Resp Pulse Ox 09/06/19 08:30 84 22 H 97 Medical Necessity - Tobacco Use Smoking Status: Former smoker Assessment/Plan All Active Problems (Last Reviewed 09/04/19 @ 17:18 by Eveline Jason NP-C) Inflammation of right sacroiliac joint (Acute) Generalized muscle ache (Acute) Encephalopathy acute (Acute) Elevated troponin (Acute) Digoxin toxicity (Acute) HEIDI (acute kidney injury) (Acute) Abnormal EKG (Acute) Lethargy (Acute) Leukocytosis (Acute) 1. Bradycardia, lethargy, confusion - suspected 2/2 dig toxicity. dig elevated yesterday and pt received digibind. Rate normal today. This may have been related to HEIDI, which has now resolved. TSH mildly elevated, Ft4 normal. Cortisol mildly elevated at 30.00. UA negative. -Echo with EF 65%, RVSP 51 mmHg, afib. -CT brain negative for acute process -CXR neg for acute process -repeat chest xray for increased SOB. bicarb mildly increased but not that remarkable considering past levels. She has no other concerning symptoms for an acute process: no CP, cough, fever, chills, edema. I advised bipap at rest in addition to at night. I suspect this is due to her underlying pulmonary HTN. She is chronically SOB. 2. Atrial fibrillation - in afib, rate controlled. INR elevated - hold warfarin. off dig. on cardizem. bp stable. 3. Indeterminate trop - cardiology following. Max 0.199, trending down. Last 0.081. No CP. May need stress test per cardiology. 4. Encephalopathy resolved. pt should remain off sedating meds - ambien, gabapentin, tramadol. 5. HEIDI resolved 6. Elevated INR - allow to drift down. 7. T11 compression fracture - ptot, SNF resident 8. COPD - no acute exacerbation, prn aerosols DVT ppx: inr supratherapeutic --> drifting down. DC planning: return to snf when appropriate. family is inquiring about palliative care, SW to discuss with POA. This patient was seen by Kris Pollard PA-C under the supervision of Dr. Conway. <Bonifacio Conway - Last Filed: 09/06/19 13:13> Vitals/I&O's: Vital Signs Temp Pulse Resp BP Pulse Ox 36.6 C 85 27 H 140/98 H 98 09/06/19 07:46 09/06/19 11:15 09/06/19 11:15 09/06/19 07:46 09/06/19 11:15 Oxygen Flow Rate (L/min) 2 Oxygen Delivery Method Bi-pap Weight: 72 kg Body Mass Index (BMI) 25.4 Finger Stick Blood Glucose 166 Intake and Output for Last 24 Hours 09/04/19 09/05/19 09/06/19 23:59 23:59 23:59 Intake Total 1170 / 1170 3567.5 / 3567.5 150 / 150 Output Total 150 / 325 425 / 425 0 / 0 Balance 1020 / 845 3142.5 / 3142.5 150 / 150 General: Alert, Cooperative HEENT: Atraumatic, Normocephalic Neck: No Nodes, Trachea Midline Lungs: Clear to auscultation, Normal air movement, No rhonchi, No wheeze Cardiovascular: Regular rate, Regular Rhythm, Normal S1, Normal S2 Abdomen: Bowel Sounds Present, Soft, Non Tender, Non-Distended Extremities: No edema, No Calf Tenderness Skin: No rashes, No breakdown Microbiology Past 72 Hours 09/04/19 11:15 Urine Catheter - Catheter Urine Culture - Final Culture exhibits no growth. Laboratory Results 09/06/19 06:55: PT 50.3 H, INR 5.4 H* 09/06/19 06:55: Sodium 145, Potassium 3.7, Chloride 107, Carbon Dioxide 36.0 H, Anion Gap 2 L, BUN 23 H, Creatinine 0.52 L, Estim Creat Clear Calc 45.50, Est GFR (MDRD) Af Amer 148, Est GFR (MDRD) Non-Af 123, BUN/Creatinine Ratio 44.4 H, Glucose 102, Calcium 8.7 09/06/19 06:55: Digoxin 2.14 H* Current Medications Acetaminophen (Tylenol) 650 mg PO Q6H PRN PRN PRN Reason: Pain Score 1-10/Temp > 100.7 F Last Admin: 09/05/19 15:37 Dose: 650 mg Documented by: Albuterol Sulfate (Ventolin Aerosols) 2.5 mg INHALATION Q2H PRN PRN PRN Reason: SOB/Wheezing Last Admin: 09/05/19 19:18 Dose: 2.5 mg Documented by: Bisacodyl (Dulcolax) 10 mg RECTAL DAILY PRN PRN PRN Reason: Constipation Budesonide (Pulmicort Aerosol) 0.25 mg INHALATION Q12H.RT [facility] Last Admin: 09/06/19 08:32 Dose: 0.25 mg Documented by: Buspirone HCl (Buspar) 7.5 mg PO QHS [facility] Last Admin: 09/05/19 21:33 Dose: 7.5 mg Documented by: Cyanocobalamin (Vitamin B12) 500 mcg PO DAILY@0800 [facility] Last Admin: 09/06/19 09:44 Dose: 500 mcg Documented by: Diltiazem HCl (Cardizem Cd) 120 mg PO Q12 [facility] Last Admin: 09/06/19 09:44 Dose: 120 mg Documented by: Ergocalciferol (Vitamin D) 50,000 unit PO TH [facility] Last Admin: 09/05/19 08:41 Dose: 50,000 unit Documented by: Glucagon () 1 mg IM .X1 PRN PRN Reason: Hypoglycemia Dextrose (Dextrose 10%-Water) 250 mls @ 999 mls/hr IV .Q16M PRN; Protocol PRN Reason: HYPOGLYCEMIA Lactobacillus Acidophilus (Acidophilus) 1 tablet PO DAILY [facility] Last Admin: 09/06/19 09:44 Dose: 1 tablet Documented by: Lidocaine (Lidoderm Patch) 1 patch TOPICAL DAILY@0600 [facility]; Protocol Last Admin: 09/06/19 05:55 Dose: 1 patch Documented by: Multivitamins/Minerals (Healthy Eyes (Bkc)) 1 capsule PO BIDCM [facility] Last Admin: 09/06/19 09:44 Dose: 1 capsule Documented by: Nitroglycerin (Nitrostat) 0.4 mg SUBLINGUAL Q5M PRN PRN Reason: CARDIAC/CHEST PAIN Ondansetron HCl (Zofran) 4 mg IV Q8H PRN PRN PRN Reason: NAUSEA/VOMITING Last Admin: 09/05/19 13:56 Dose: 4 mg Documented by: Pantoprazole Sodium (Protonix) 20 mg PO DAILY [facility] Last Admin: 09/06/19 09:44 Dose: 20 mg Documented by: Polyethylene Glycol (Miralax) 17 gm PO DAILY [facility] Last Admin: 09/06/19 09:45 Dose: 17 gm Documented by: Senna/Docusate Sodium (Senokot-S, Caterina-Colace) 2 tablet PO QHS [facility] Last Admin: 09/05/19 21:33 Dose: 2 tablet Documented by: Sucralfate (Carafate) 1 gm PO 1HR_ACHS PRN PRN Reason: GI UPSET Last Admin: 09/06/19 07:58 Dose: 1 gm Documented by: STROKE Vital Signs/Narrative: Vital Signs Pulse Resp Pulse Ox 09/06/19 11:15 85 27 H 98 09/06/19 09:55 26 H Assessment/Plan Patient seen and examined independently. Data reviewed. I agree with the above note by the physician application assistant. 1. Encephalopathy * improving * may be toxic due to digoxin toxicity * hold dig and other potentiating medications * supportive mgmt * PCo2 up, so may also be contributing 2. Digoxin toxicity * unclear how much her symptoms are due to dig toxicity * give Digibind 4 vials x 1 * hold digoxin. Per cardiology, will not resume. * may be exacerbated by HEIDI 3. Elevated troponins * unclear significance * asymptomatic * Consult cards (DW Dr. Martini) * echo EF 65% 4. HEIDI * suspect prerenal * HLIV * resolved 5. Coagulopathy * no bleeding * likely due to poor oral intake while taking warfarin * monitor * hold warfarin 6. T11 cmprsn fracture * conservative mgmt 7. VTE proph: low risk as already anticoagulated DW patient's son. Code Visit Inpatient E&M: 06443 Subs Hosp L2
[2019-09-06] MEDS: Ondansetron 4 MG/2 ML Vial IV (14:04)
[2019-09-06] MEDS: Albuterol 2.5 MG/3 ML VIAL.NEB. INHALATION (21:55)
[2019-09-06] MEDS: Senna/Docusate Sodium 1 Tablet 2 TABLET PO (22:01)
[2019-09-06] MEDS: busPIRone 5 MG Tablet 7.5 MG PO (22:01)
[2019-09-07] VITALS (17 sets, daily range): BP systolic 119–131; BP diastolic 66–77; PULSE 81–95; RESP 12–25; TEMP 36.6–37.1; O2SAT 96–99
--- NOTE | 2019-09-07 01:22 | NURSING ---
Pt provided mouth care, takes 2 small sips of water; Bipap mask repositioned on face and secured.
[2019-09-07 06:43] LABS: International Normalized Ratio 3.4; Prothrombin Time (Protime)PT. 34.3 SECONDS (11.7-14.9)
[2019-09-07] MEDS: Lidocaine 5% Patch 1 PATCH TOPICAL (06:53)
[2019-09-07] MEDS: Sucralfate 1 GM Tablet PO ×4 (06:53→21:58)
[2019-09-07 07:11] LABS: Anion Gap 3 (5-15); BUN 22 mg/dL (7-18); BUN/Creat Ratio 49.3 RATIO (10-20); Calcium,Total 8.7 mg/dL (8.5-10.1); Chloride 107 mmol/L (98-107); Creatinine, Serum 0.45 mg/dL (0.55-1.02); EST Glomerular Filtration Rate 146 mL/min (>60); Est Glom Filt Rate - Afr Amer 176 mL/min (>60); Glucose 91 mg/dL (74-106); Sodium Level 144 mmol/L (136-145)
[2019-09-07] MEDS: Budesonide Respules 0.5 MG/2 ML AMPUL.NEB. 0.25 MG INHALATION ×2 (07:18→19:57)
[2019-09-07] MEDS: Multivitamin (Healthy Eyes) Capsule 1 CAP PO ×2 (10:15→16:58)
[2019-09-07] MEDS: dilTIAZem CD 120 MG Capsule PO ×2 (10:15→21:58)
[2019-09-07] MEDS: Cyanocobalamin 500 MCG Tablet PO (10:15)
[2019-09-07] MEDS: Polyethylene Glycol 3350 17 GM PACKET PO (10:15)
[2019-09-07] MEDS: Pantoprazole Sodium 20 MG Tablet PO (10:16)
--- NOTE | 2019-09-07 11:07 | PCM.PN.HOSP ---
<Kris Pollard - Last Filed: 09/07/19 11:07> Patient Problems: Active and Suspected Problems (Last Reviewed 09/04/19 @ 17:18 by JOSEPH Callahan) Encephalopathy acute (Acute) Elevated troponin (Acute) Digoxin toxicity (Acute) HEIDI (acute kidney injury) (Acute) Abnormal EKG (Acute) Reason for Visit: sob Subjective: Pt with fluctuant SOB, she feels the only thing that helps is bipap and that while off she progressively gets more SOB. no cough, no fever, no chills, no LE edema, no CP, no palp. Vitals/I&O's: Vital Signs Temp Pulse Resp BP Pulse Ox 97.9 F 86 18 131/77 H 97 09/07/19 08:34 09/07/19 08:34 09/07/19 08:34 09/07/19 08:34 09/07/19 08:34 Oxygen Flow Rate (L/min) 2 Oxygen Delivery Method Nasal Cannula Weight: 158 lb 11.725 oz Body Mass Index (BMI) 25.4 Finger Stick Blood Glucose 166 Intake and Output for Last 24 Hours 09/05/19 09/06/19 09/07/19 23:59 23:59 23:59 Intake Total 3567.5 / 3567.5 810 / 1035 345 / 345 Output Total 425 / 425 0 / 600 600 / 600 Balance 3142.5 / 3142.5 810 / 435 -255 / -255 General: Alert, Oriented x3, Cooperative HEENT: Atraumatic, PERRLA, EOMI, Normocephalic Neck: Supple, No JVD, Negative Carotid Bruits Lungs: Clear to auscultation, Diminished - severely Cardiovascular: No murmurs, Irregular Rate Abdomen: Bowel Sounds Present, Soft, Non Tender Extremities: No edema, Capillary Refill Less than 3 Seconds Skin: No rashes, No breakdown Musculoskeletal: No Tenderness to Palpation of Joints or Extremities Neurological: Cranial nerves II-XII grossly intact Psych/Mental Status: Normal Affect, Appropriate, Alert and oriented to time, place, person, mood and affect Microbiology Past 72 Hours 09/04/19 11:28 Blood Culture (Wb) - Left Hand Blood Culture - Preliminary No growth in 48 hours. 09/04/19 10:34 Blood Culture (Wb) - Anticubital Left Blood Culture - Preliminary No growth in 48 hours. 09/04/19 11:15 Urine Catheter - Catheter Urine Culture - Final Culture exhibits no growth. Laboratory Results 09/07/19 05:56: PT 34.3 H, INR 3.4 09/07/19 05:56: Sodium 144, Potassium 4.0, Chloride 107, Carbon Dioxide 34.0 H, Anion Gap 3 L, BUN 22 H, Creatinine 0.45 L, Estim Creat Clear Calc 45.50, Est GFR (MDRD) Af Amer 176, Est GFR (MDRD) Non-Af 146, BUN/Creatinine Ratio 49.3 H, Glucose 91, Calcium 8.7 Current Medications Acetaminophen (Tylenol) 650 mg PO Q6H PRN PRN PRN Reason: Pain Score 1-10/Temp > 100.7 F Last Admin: 09/05/19 15:37 Dose: 650 mg Documented by: Albuterol Sulfate (Ventolin Aerosols) 2.5 mg INHALATION Q2H PRN PRN PRN Reason: SOB/Wheezing Last Admin: 09/06/19 21:55 Dose: 2.5 mg Documented by: Bisacodyl (Dulcolax) 10 mg RECTAL DAILY PRN PRN PRN Reason: Constipation Budesonide (Pulmicort Aerosol) 0.25 mg INHALATION Q12H.RT [facility] Last Admin: 09/07/19 07:18 Dose: 0.25 mg Documented by: Buspirone HCl (Buspar) 7.5 mg PO QHS [facility] Last Admin: 09/06/19 22:01 Dose: 7.5 mg Documented by: Cyanocobalamin (Vitamin B12) 500 mcg PO DAILY@0800 [facility] Last Admin: 09/07/19 10:15 Dose: 500 mcg Documented by: Diltiazem HCl (Cardizem Cd) 120 mg PO Q12 [facility] Last Admin: 09/07/19 10:15 Dose: 120 mg Documented by: Ergocalciferol (Vitamin D) 50,000 unit PO TH [facility] Last Admin: 09/05/19 08:41 Dose: 50,000 unit Documented by: Glucagon () 1 mg IM .X1 PRN PRN Reason: Hypoglycemia Dextrose (Dextrose 10%-Water) 250 mls @ 999 mls/hr IV .Q16M PRN; Protocol PRN Reason: HYPOGLYCEMIA Lactobacillus Acidophilus (Acidophilus) 1 tablet PO DAILY [facility] Last Admin: 09/07/19 10:15 Dose: 1 tablet Documented by: Lidocaine (Lidoderm Patch) 1 patch TOPICAL DAILY@0600 [facility]; Protocol Last Admin: 09/07/19 06:53 Dose: 1 patch Documented by: Multivitamins/Minerals (Healthy Eyes (Bkc)) 1 capsule PO BIDCM [facility] Last Admin: 09/07/19 10:15 Dose: 1 capsule Documented by: Nitroglycerin (Nitrostat) 0.4 mg SUBLINGUAL Q5M PRN PRN Reason: CARDIAC/CHEST PAIN Ondansetron HCl (Zofran) 4 mg IV Q8H PRN PRN PRN Reason: NAUSEA/VOMITING Last Admin: 09/06/19 14:04 Dose: 4 mg Documented by: Pantoprazole Sodium (Protonix) 20 mg PO DAILY [facility] Last Admin: 09/07/19 10:16 Dose: 20 mg Documented by: Polyethylene Glycol (Miralax) 17 gm PO DAILY [facility] Last Admin: 09/07/19 10:15 Dose: 17 gm Documented by: Senna/Docusate Sodium (Senokot-S, Caterina-Colace) 2 tablet PO QHS [facility] Last Admin: 09/06/19 22:01 Dose: 2 tablet Documented by: Sodium Chloride () 10 - 40 ml IV UD PRN PRN Reason: SALINE FLUSH Sucralfate (Carafate) 1 gm PO 1HR_ACHS [facility] Last Admin: 09/07/19 06:53 Dose: 1 gm Documented by: STROKE Vital Signs/Narrative: Vital Signs Temp Pulse Resp BP Pulse Ox 09/07/19 08:34 97.9 F 86 18 131/77 H 97 09/07/19 07:29 81 09/07/19 07:18 90 18 98 Medical Necessity - Tobacco Use Smoking Status: Former smoker Assessment/Plan All Active Problems (Last Reviewed 09/04/19 @ 17:18 by Eveline Jason NP-C) Inflammation of right sacroiliac joint (Acute) Generalized muscle ache (Acute) Encephalopathy acute (Acute) Elevated troponin (Acute) Digoxin toxicity (Acute) HEIDI (acute kidney injury) (Acute) Abnormal EKG (Acute) Lethargy (Acute) Leukocytosis (Acute) 1. Bradycardia, lethargy, confusion - suspected 2/2 dig toxicity. rate has remained stable. 2. Atrial fibrillation - in afib, rate controlled. INR elevated - hold warfarin. off dig. on cardizem. bp stable. 3. Indeterminate trop - cardiology following. Max 0.199, trending down. Last 0.081. No CP. May need stress test per cardiology. 4. Encephalopathy resolved. pt should remain off sedating meds - ambien, gabapentin, tramadol. 5. HEIDI resolved 6. Elevated INR - allow to drift down. 7. T11 compression fracture - ptot, SNF resident 8. COPD - no acute exacerbation, prn aerosols 9. Ongoing SOB - bipap qhs and with naps. atelectasis on repeat CXR - IS. DVT ppx: inr supratherapeutic --> drifting down. DC planning: return to snf when appropriate. consult to palliative care - misha patient and she is agreeable. will try to get bipap for her at SNF. This patient was seen by Kris Pollard PA-C under the supervision of Dr. Conway. <Bonifacio Conway - Last Filed: 09/07/19 13:06> Subjective: Short of breath earlier while she was not on BiPAP. Improved after being placed on BiPAP. Vitals/I&O's: Vital Signs Temp Pulse Resp BP Pulse Ox 36.6 C 86 16 131/77 H 99 09/07/19 08:34 09/07/19 11:00 09/07/19 11:00 09/07/19 08:34 09/07/19 11:00 Oxygen Flow Rate (L/min) 2 Oxygen Delivery Method Nasal Cannula Weight: 72 kg Body Mass Index (BMI) 25.4 Finger Stick Blood Glucose 166 Intake and Output for Last 24 Hours 09/05/19 09/06/19 09/07/19 23:59 23:59 23:59 Intake Total 3567.5 / 3567.5 810 / 1035 345 / 345 Output Total 425 / 425 0 / 600 600 / 600 Balance 3142.5 / 3142.5 810 / 435 -255 / -255 General: Alert, Cooperative HEENT: Atraumatic, Normocephalic Neck: No Nodes, Trachea Midline Lungs: Clear to auscultation, Diminished Cardiovascular: No murmurs, Irregular Rate Abdomen: Bowel Sounds Present, Soft, Non Tender Extremities: No edema, No Calf Tenderness Skin: No rashes, No breakdown Psych/Mental Status: Normal Affect, Appropriate Microbiology Past 72 Hours 09/04/19 11:28 Blood Culture (Wb) - Left Hand Blood Culture - Preliminary No growth in 48 hours. 09/04/19 10:34 Blood Culture (Wb) - Anticubital Left Blood Culture - Preliminary No growth in 48 hours. 09/04/19 11:15 Urine Catheter - Catheter Urine Culture - Final Culture exhibits no growth. Laboratory Results 09/07/19 05:56: PT 34.3 H, INR 3.4 09/07/19 05:56: Sodium 144, Potassium 4.0, Chloride 107, Carbon Dioxide 34.0 H, Anion Gap 3 L, BUN 22 H, Creatinine 0.45 L, Estim Creat Clear Calc 45.50, Est GFR (MDRD) Af Amer 176, Est GFR (MDRD) Non-Af 146, BUN/Creatinine Ratio 49.3 H, Glucose 91, Calcium 8.7 Current Medications Acetaminophen (Tylenol) 650 mg PO Q6H PRN PRN PRN Reason: Pain Score 1-10/Temp > 100.7 F Last Admin: 09/05/19 15:37 Dose: 650 mg Documented by: Albuterol Sulfate (Ventolin Aerosols) 2.5 mg INHALATION Q2H PRN PRN PRN Reason: SOB/Wheezing Last Admin: 09/06/19 21:55 Dose: 2.5 mg Documented by: Bisacodyl (Dulcolax) 10 mg RECTAL DAILY PRN PRN PRN Reason: Constipation Budesonide (Pulmicort Aerosol) 0.25 mg INHALATION Q12H.RT [facility] Last Admin: 09/07/19 07:18 Dose: 0.25 mg Documented by: Buspirone HCl (Buspar) 7.5 mg PO QHS [facility] Last Admin: 09/06/19 22:01 Dose: 7.5 mg Documented by: Cyanocobalamin (Vitamin B12) 500 mcg PO DAILY@0800 [facility] Last Admin: 09/07/19 10:15 Dose: 500 mcg Documented by: Diltiazem HCl (Cardizem Cd) 120 mg PO Q12 [facility] Last Admin: 09/07/19 10:15 Dose: 120 mg Documented by: Ergocalciferol (Vitamin D) 50,000 unit PO TH [facility] Last Admin: 09/05/19 08:41 Dose: 50,000 unit Documented by: Glucagon () 1 mg IM .X1 PRN PRN Reason: Hypoglycemia Dextrose (Dextrose 10%-Water) 250 mls @ 999 mls/hr IV .Q16M PRN; Protocol PRN Reason: HYPOGLYCEMIA Lactobacillus Acidophilus (Acidophilus) 1 tablet PO DAILY [facility] Last Admin: 09/07/19 10:15 Dose: 1 tablet Documented by: Lidocaine (Lidoderm Patch) 1 patch TOPICAL DAILY@0600 [facility]; Protocol Last Admin: 09/07/19 06:53 Dose: 1 patch Documented by: Multivitamins/Minerals (Healthy Eyes (Bkc)) 1 capsule PO BIDCM [facility] Last Admin: 09/07/19 10:15 Dose: 1 capsule Documented by: Nitroglycerin (Nitrostat) 0.4 mg SUBLINGUAL Q5M PRN PRN Reason: CARDIAC/CHEST PAIN Ondansetron HCl (Zofran) 4 mg IV Q8H PRN PRN PRN Reason: NAUSEA/VOMITING Last Admin: 09/06/19 14:04 Dose: 4 mg Documented by: Pantoprazole Sodium (Protonix) 20 mg PO DAILY [facility] Last Admin: 09/07/19 10:16 Dose: 20 mg Documented by: Polyethylene Glycol (Miralax) 17 gm PO DAILY [facility] Last Admin: 09/07/19 10:15 Dose: 17 gm Documented by: Senna/Docusate Sodium (Senokot-S, Caterina-Colace) 2 tablet PO QHS [facility] Last Admin: 09/06/19 22:01 Dose: 2 tablet Documented by: Sodium Chloride () 10 - 40 ml IV UD PRN PRN Reason: SALINE FLUSH Sucralfate (Carafate) 1 gm PO 1HR_ACHS [facility] Last Admin: 09/07/19 06:53 Dose: 1 gm Documented by: STROKE Vital Signs/Narrative: Vital Signs Pulse Resp Pulse Ox 09/07/19 11:00 86 16 99 Assessment/Plan Patient seen and examined independently. Data reviewed. I agree with the above note by the physician cleaner assistant. 1. Encephalopathy improving may be toxic due to digoxin toxicity hold dig and other potentiating medications supportive mgmt PCo2 up, so may also be contributing 2. Digoxin toxicity unclear how much her symptoms are due to dig toxicity give Digibind 4 vials x 1 hold digoxin. Per cardiology, will not resume. may be exacerbated by HEIDI 3. Elevated troponins unclear significance asymptomatic Consult cards (IDRIS Martini) echo EF 65% 4. HEIDI suspect prerenal HLIV resolved 5. Coagulopathy no bleeding likely due to poor oral intake while taking warfarin monitor hold warfarin 6. T11 cmprsn fracture conservative mgmt 7. Chronic hypercapnic respiratory failure tenuous consult pulm. IDRIS Cates about continue BiPAP/AVAPS. 8. VTE proph: low risk as already anticoagulated Code Visit Inpatient E&M: 03829 Subs Hosp L2
--- NOTE | 2019-09-07 15:48 | CM.UR ---
Had spoken with patient regarding bipap vs avap and she had no preference of company to obtain from. States she bought her own [employer] portable and facility lets her use tanks as necessary. spoke with Lizett at [facility] who alerted me that [facility] is no longer a contracted provider for the [facility] [employer]. Reviewed in-network providers online and discovered that [facility] is a provider. Did discuss the bipap vs avap with Lizett from [facility]. She states that the avap would be easier for her to qualify. States if pco2 is >52, she should be able to get it. Otherwise for bipap would require a sleep study showing that she failed CPAP. Alerted MAGO Reynolds PCU charge nurse. Inocencio Draper RN, CCM.
[2019-09-07] MEDS: Albuterol 2.5 MG/3 ML VIAL.NEB. INHALATION (19:57)
[2019-09-07] MEDS: busPIRone 5 MG Tablet 7.5 MG PO (21:59)
[2019-09-07] MEDS: Senna/Docusate Sodium 1 Tablet 2 TABLET PO (21:59)
[2019-09-08] VITALS (22 sets, daily range): BP systolic 109–146; BP diastolic 72–88; PULSE 72–102; RESP 12–27; TEMP 36.6–36.9; O2SAT 96–99
[2019-09-08] MEDS: Sucralfate 1 GM Tablet PO ×4 (06:11→21:55)
[2019-09-08] MEDS: Lidocaine 5% Patch 1 PATCH TOPICAL (06:11)
[2019-09-08 06:26] LABS: International Normalized Ratio 2.2; Prothrombin Time (Protime)PT. 24.3 SECONDS (11.7-14.9)
[2019-09-08] MEDS: Budesonide Respules 0.5 MG/2 ML AMPUL.NEB. 0.25 MG INHALATION ×2 (07:14→18:45)
[2019-09-08] MEDS: Albuterol 2.5 MG/3 ML VIAL.NEB. INHALATION ×3 (07:14→18:45)
--- NOTE | 2019-09-08 07:30 | CON.PCM_ITS ---
Reason for Consult Date of Consultation: 09/08/19 Reason for Consultation: Chronic respiratory failure/concern for sleep apnea History of Present Illness: The patient is a 73-year-old female, with a history as outlined below, who presented to the emergency department on September 04 with encephalopathy. The patient was seen by her nurse practitioner in the pulmonary medicine office on September 04, at which time, the patient had a noted history of 2 weeks of increasing lethargy. Of note, the patient had previously been ordered a split- night sleep study over concerns for sleep apnea. However, the patient had yet to complete testing. The patient was just admitted to the hospital last month with acute on chronic respiratory failure due to COPD with exacerbation secondary to RSV infection. The patient was also treated for acute on chronic diastolic congestive heart failure along with atrial fibrillation with RVR. The patient does have a known history of chronic obstructive pulmonary disease and was previously followed by Dr. Chavarria at [facility]. Prior pulmonary function studies from January 2017 did reveal evidence of severe obstructive lung disease with an FEV1 of 31% of predicted. The patient is currently on scheduled duo nebs and budesonide as an outpatient. She does have a baseline 2 L/min supplemental oxygen requirement at all times. Per documentation from the patient's pulmonary provider's office, she does have a history of recurrent COPD exacerbations. She does have a smoking history of 0.5 packs/day x 20 years, having quit completely in 2000. The patient is chronically anticoagulated due to a history of venous thromboembolic disease. She also has underlying pulmo nary hypertension and paroxysmal atrial fibrillation. The patient's hospital course has included treatment for atrial fibrillation, elevated cardiac enzymes and digoxin intoxication, which was felt to be the etiology for her encephalopathy. The patient has improved clinically. Past Medical History Past Medical History (Chronic Problems): Chronic Problems (Last Reviewed 09/04/19 @ 17:18 by Eveline Jason NP-Kimberly) Back pain (Chronic) Compression fracture (Chronic) Other intervertebral disc degeneration, lumbar region (Chronic) Spinal stenosis, lumbar region with neurogenic claudication (Chronic) Spondylosis without myelopathy or radiculopathy, lumbar region (Chronic) Lumbago with sciatica, right side (Chronic) Unspecified abnormalities of gait and mobility (Chronic) Compression fracture of thoracic vertebra with routine healing (Chronic) ANKUSH (obstructive sleep apnea) (Chronic) Diastolic dysfunction (Chronic) Chronic hypoxemic respiratory failure (Chronic) Chronic anticoagulation (Chronic) Former tobacco use (Chronic) Depression (Chronic) Pulmonary hypertension (Chronic) History of recurrent deep vein thrombosis (DVT) (Chronic) History of pulmonary embolism (Chronic) History of cardioversion (Chronic) January of 2018.....HR not controlled with exertion while in AF on Beta donna and cardizem. Converted to NSR with cardioversion Paroxysmal atrial fibrillation (Chronic) DCCV on 01/31/2018; HTN (hypertension) (Chronic) Iron deficiency anemia (Chronic) Chronic diastolic CHF (congestive heart failure) (Chronic) Atrial fibrillation with RVR (Chronic) Dyslipidemia (Chronic) COPD (chronic obstructive pulmonary disease) (Chronic) Medical History: Medical History (Last Reviewed 09/04/19 @ 17:18 by Eveline Jason NP-C) Dyslipidemia (Chronic) E78.5 COPD (chronic obstructive pulmonary disease) (Chronic) J44.9 Atrial fibrillation I48.91 Heart failure with preserved ejection fraction I50.30 Group 2. EF 65% 12/05/17 Essential hypertension I10 History of DVT (deep vein thrombosis) Z86.718 History of pulmonary embolus (PE) Z86.711 Pulmonary HTN I27.20 Venous insufficiency I87.2 Allergies amlodipine besylate [From [facility]] Adverse Reaction (Verified 08/22/19 11:46) ANKLE AND LEG EDEMA RESOLVED OFF MED-PER PCP PAPERWORK codeine Adverse Reaction (Verified 08/22/19 11:46) MENTAL STATUS CHANGE lisinopril Adverse Reaction (Verified 08/22/19 11:46) COUGH Home Medications: Ambulatory Orders Medication Instructions Recorded Ergocalciferol [Vitamin D] 50,000 unit PO TH 07/19/15 Warfarin Sodium 4 mg PO MOTH 03/08/18 Citalopram Hydrobromide 40 mg PO DAILY 05/23/18 [Citalopram HBr] Budesonide 2 ml IH BID 01/17/19 Omeprazole 20 mg PO DAILY 01/17/19 Sucralfate [Carafate] 1 gm PO Q6H PRN PRN 01/17/19 Vit A/Vit C/Vit E/Zinc/Copper 1 ea PO BID 01/17/19 [Preservision Areds Tablet] Warfarin [Coumadin] 3 mg PO [id number] 01/17/19 Buspirone HCl 7.5 mg PO QHS 05/07/19 Cyanocobalamin (Vitamin B-12) 500 mcg PO DAILY@0800 07/12/19 [Vitamin B-12] Polyethylene Glycol 3350 17 gm PO DAILY 07/12/19 Potassium Chloride 20 meq PO DAILY #0 08/10/19 Bisacodyl [Gentle Laxative] 10 mg NM DAILY PRN PRN 08/22/19 Diltiazem CD [Cardizem CD] 120 mg PO Q12 08/22/19 Lactobacillus Acidophilus 1 ea PO DAILY 08/22/19 [Acidophilus] Sennosides/Docusate Sodium [Senna 2 tab PO QHS 08/22/19 Plus 8.6-50 mg Tablet] traMADol [Ultram] 50 mg PO TID 08/22/19 Acetaminophen [Tylenol Tablet] 650 mg PO Q6H PRN PRN tab 08/24/19 Methocarbamol [Robaxin] 500 mg PO TID PRN #42 tab 08/24/19 gabapentin 100 mg capsule 100 mg PO QHS 08/28/19 Lidocaine [Lidocaine Pain Relief] 1 ea TOPICAL DAILY 09/04/19 Ondansetron HCl [Zofran] 4 mg PO Q6H PRN 09/04/19 Albuterol Aerosols [Ventolin 2.5 mg INHALATION Q2H PRN PRN 09/09/19 Aerosols] vial.neb. Furosemide [Lasix] 40 mg PO DAILY #30 09/09/19 Surgical History: Surgical History (Last Reviewed 09/04/19 @ 17:18 by JOSEPH Callahan) History of cholecystectomy Z90.49 History of total hysterectomy Z90.710 tailbone surgery Surgical History: cholecystectomy, hysterectomy, - - tailbone surgery. Psychiatric History: Anxiety, Depression DYE FEEDER History: No pertinent DYE FEEDER history Smoking Status: Former smoker - *Family History Maternal Family History: Family History (Last Reviewed 09/04/19 @ 17:18 by JOSEPH Callahan) Sister Heart disease History Items: - - Patient notes a maternal history of dementia and stroke. Paternal Family History: Family History (Last Reviewed 09/04/19 @ 17:18 by JOSEPH Callahan) Sister Heart disease History Items: - Sibling Family History: Family History (Last Reviewed 09/04/19 @ 17:18 by JOSEPH Callahan) Sister Heart disease History Items: - - Patient notes a sibling specifically her sister with Parkinson's disease and heart disease as well as a brother with Parkinson's disease, asthma and history of blood clots. Review of Systems Constitutional: Denies: Chills, Fever Eyes: Denies: Blurred vision, Double vision HEENT: Denies: Head Aches, Sinus Congestion, Sinus Drainage Cardiovascular: Denies: Chest Pain, Palpitations Respiratory: Reports: Shortness of Breath Gastrointestinal: Denies: Abdominal Pain, Nausea, Vomiting Genitourinary: Denies: Dysuria Musculoskeletal: Denies: Joint Pain, Joint Tenderness Skin: Denies: Rash, Wounds Neurological: Denies: Numbness, Tingling, Focal weakness Psychiatric: Denies: Anxiety, Depression, Homicidal Ideations, Suicidal Ideations Hematologic/ Lymphatic: Denies: Easy Bruising, Easy Bleeding Patient Problems: Active and Suspected Problems (Last Reviewed 09/04/19 @ 17:18 by JOSEPH Callahan) Encephalopathy acute (Acute) Elevated troponin (Acute) Digoxin toxicity (Acute) HEIDI (acute kidney injury) (Acute) Abnormal EKG (Acute) Objective: The patient's most recent lab work, culture data and imaging studies have all been personally reviewed. - Physical Exam Vitals/I&O's: Vital Signs Temp Pulse Resp BP Pulse Ox 97.9 F 80 24 H 146/87 H 98 09/08/19 02:16 09/08/19 04:35 09/08/19 04:35 09/08/19 02:16 09/08/19 04:35 Oxygen Flow Rate (L/min) 2 Oxygen Delivery Method Bi-pap Weight: 158 lb 11.725 oz Body Mass Index (BMI) 25.4 Finger Stick Blood Glucose 166 Intake and Output for Last 24 Hours 09/06/19 09/07/19 09/08/19 23:59 23:59 23:59 Intake Total 810 / 1035 825 / 825 100 / 100 Output Total 0 / 600 650 / 650 75 / 75 Balance 810 / 435 175 / 175 25 / 25 General: Alert, Cooperative, No apparent distress, - - Sitting in bedside recliner HEENT: Atraumatic, Normocephalic Oral: No Gingival or Mucosal Lesions/ Ulcerations Neck: Supple, No Nodes, Trachea Midline Lungs: No rhonchi, No wheeze, No rales, Diminished Cardiovascular: Normal S1, Normal S2, No murmurs, Irregular Rate Abdomen: Bowel Sounds Present, Soft, Non Tender, Obese Extremities: No clubbing, No cyanosis, No edema Skin: No breakdown Musculoskeletal: No Tenderness to Palpation of Joints or Extremities Lymphatic: No Cervical, Supraclavicular, or Inguinal Adenopathy Neurological: Neuro grossly intact Psych/Mental Status: Flat Affect Labs (Last 48 Hours) 09/06/19 09/06/19 09/06/19 06:55 06:55 06:55 PT 50.3 H INR 5.4 H* Sodium 145 Potassium 3.7 Chloride 107 Carbon Dioxide 36.0 H Anion Gap 2 L BUN 23 H Creatinine 0.52 L Estim Creat Clear Calc 45.50 Est GFR (MDRD) Af Amer 148 Est GFR (MDRD) Non-Af 123 BUN/Creatinine Ratio 44.4 H Glucose 102 Calcium 8.7 Digoxin 2.14 H* 09/07/19 09/07/19 09/08/19 05:56 05:56 05:42 PT 34.3 H 24.3 H INR 3.4 2.2 Sodium 144 Potassium 4.0 Chloride 107 Carbon Dioxide 34.0 H Anion Gap 3 L BUN 22 H Creatinine 0.45 L Estim Creat Clear Calc 45.50 Est GFR (MDRD) Af Amer 176 Est GFR (MDRD) Non-Af 146 BUN/Creatinine Ratio 49.3 H Glucose 91 Calcium 8.7 Digoxin Microbiology 09/04/19 11:28 Blood Culture (Wb) - Left Hand Blood Culture - Preliminary No growth in 48 hours. 09/04/19 10:34 Blood Culture (Wb) - Anticubital Left Blood Culture - Preliminary No growth in 48 hours. 09/04/19 11:15 Urine Catheter - Catheter Urine Culture - Final Culture exhibits no growth. Clinical Impression(s) from Imaging Studies Brain CT 09/04/19 10:33 IMPRESSION: Chronic involutional changes of the brain. Electronically Signed: Nathen Dickinson, at 11:19 EST , Service support , Chest X-Ray 09/04/19 10:35 IMPRESSION: Stable mild increased markings at the left lung base with mild elevation of the left hemidiaphragm. Electronically Signed: Nathen Dickinson, at 10:55 EST , Service support , Chest X-Ray 09/06/19 09:59 IMPRESSION: Slight progression of the increased markings at the lung bases suggestive of bibasilar atelectasis. Electronically Signed: Nathen Dickinson, at 12:16 EST , Service support , Current Medications Acetaminophen (Tylenol) 650 mg PO Q6H PRN PRN PRN Reason: Pain Score 1-10/Temp > 100.7 F Last Admin: 09/05/19 15:37 Dose: 650 mg Documented by: Albuterol Sulfate (Ventolin Aerosols) 2.5 mg INHALATION Q2H PRN PRN PRN Reason: SOB/Wheezing Last Admin: 09/08/19 07:14 Dose: 2.5 mg Documented by: Bisacodyl (Dulcolax) 10 mg RECTAL DAILY PRN PRN PRN Reason: Constipation Budesonide (Pulmicort Aerosol) 0.25 mg INHALATION Q12H.RT [facility] Last Admin: 09/08/19 07:14 Dose: 0.25 mg Documented by: Buspirone HCl (Buspar) 7.5 mg PO QHS [facility] Last Admin: 09/07/19 21:59 Dose: 7.5 mg Documented by: Cyanocobalamin (Vitamin B12) 500 mcg PO DAILY@0800 [facility] Last Admin: 09/07/19 10:15 Dose: 500 mcg Documented by: Diltiazem HCl (Cardizem Cd) 120 mg PO Q12 [facility] Last Admin: 09/07/19 21:58 Dose: 120 mg Documented by: Ergocalciferol (Vitamin D) 50,000 unit PO TH [facility] Last Admin: 09/05/19 08:41 Dose: 50,000 unit Documented by: Glucagon () 1 mg IM .X1 PRN PRN Reason: Hypoglycemia Dextrose (Dextrose 10%-Water) 250 mls @ 999 mls/hr IV .Q16M PRN; Protocol PRN Reason: HYPOGLYCEMIA Lactobacillus Acidophilus (Acidophilus) 1 tablet PO DAILY [facility] Last Admin: 09/07/19 10:15 Dose: 1 tablet Documented by: Lidocaine (Lidoderm Patch) 1 patch TOPICAL DAILY@0600 [facility]; Protocol Last Admin: 09/08/19 06:11 Dose: 1 patch Documented by: Multivitamins/Minerals (Healthy Eyes (Bkc)) 1 capsule PO BIDCM [facility] Last Admin: 09/07/19 16:58 Dose: 1 capsule Documented by: Nitroglycerin (Nitrostat) 0.4 mg SUBLINGUAL Q5M PRN PRN Reason: CARDIAC/CHEST PAIN Ondansetron HCl (Zofran) 4 mg IV Q8H PRN PRN PRN Reason: NAUSEA/VOMITING Last Admin: 09/06/19 14:04 Dose: 4 mg Documented by: Pantoprazole Sodium (Protonix) 20 mg PO DAILY [facility] Last Admin: 09/07/19 10:16 Dose: 20 mg Documented by: Polyethylene Glycol (Miralax) 17 gm PO DAILY [facility] Last Admin: 09/07/19 10:15 Dose: 17 gm Documented by: Senna/Docusate Sodium (Senokot-S, Caterina-Colace) 2 tablet PO QHS [facility] Last Admin: 09/07/19 21:59 Dose: 2 tablet Documented by: Sodium Chloride () 10 - 40 ml IV UD PRN PRN Reason: SALINE FLUSH Sucralfate (Carafate) 1 gm PO 1HR_ACHS [facility] Last Admin: 09/08/19 06:11 Dose: 1 gm Documented by: Warfarin Sodium (Coumadin (Pbkc)) 3 mg PO DAILY@1700 [facility] Assessment/Plan All Active Problems (Last Reviewed 09/04/19 @ 17:18 by Eveline Jason, [employer]-C) Inflammation of right sacroiliac joint (Acute) Generalized muscle ache (Acute) Encephalopathy acute (Acute) Elevated troponin (Acute) Digoxin toxicity (Acute) HEIDI (acute kidney injury) (Acute) Abnormal EKG (Acute) Lethargy (Acute) Leukocytosis (Acute) RECOMMENDATIONS: 1. Continue nebulized bronchodilators and steroids. 2. Wean supplemental oxygen as tolerated. 3. The patient is a candidate for non-invasive ventilatory support (AVAPS) upon discharge. 4. Case management to assist with noninvasive ventilator set [place] [facility] IMPRESSIONS: 1. Chronic combined respiratory failure/COPD with frequent exacerbations The patient has a known history of severe obstructive lung disease based upon pulmonary function studies last completed in January 2017. She also has a baseline, chronic supplemental oxygen requirement. The patient has chronic CO2 retention and was last noted to have a PCO2 of 57.7 on arterial blood gas obtained September 04. Given the patient's respiratory history, coupled with recurrent exacerbations, she would benefit from the use of a noninvasive ventilator in her home environment. The patient requires volume ventilation and all other alternative therapies have been considered and ruled out due to the severity of the disease state and life-threatening condition, including CO2 retention. Due to increased probability of acute exacerbation, the patient requires ventilation to be used during the day as needed, in addition to nightly usage with a facemask. 2. Atrial fibrillation/elevated troponin Continue current medical management per cardiology recommendations. 3. Encephalopathy/acute kidney injury/coagulopathy/GERD Complicates care, management, recovery and prognosis. Continue home medications as indicated. This note was generated with [employer] dictation software. It may contain incorrect words, spelling, and punctuation that were not noted in checking the note before signing. Code Visit Inpatient E&M: 62445 Init Hosp L3
[2019-09-08] MEDS: Polyethylene Glycol 3350 17 GM PACKET PO (08:26)
[2019-09-08] MEDS: dilTIAZem CD 120 MG Capsule PO ×2 (08:26→21:55)
[2019-09-08] MEDS: Multivitamin (Healthy Eyes) Capsule 1 CAP PO ×2 (08:27→16:24)
[2019-09-08] MEDS: Cyanocobalamin 500 MCG Tablet PO (08:27)
[2019-09-08] MEDS: Pantoprazole Sodium 20 MG Tablet PO (08:27)
--- NOTE | 2019-09-08 16:40 | PN_ITS ---
Patient Problems: Active and Suspected Problems (Last Reviewed 09/04/19 @ 17:18 by Eveline Jason NP-C) Encephalopathy acute (Acute) Elevated troponin (Acute) Digoxin toxicity (Acute) HEIDI (acute kidney injury) (Acute) Abnormal EKG (Acute) Reason for Visit: encephalopathy Subjective: Still short of breath. Requesting BiPAP. Sleeping much of the day. Vitals/I&O's: Vital Signs Temp Pulse Resp BP Pulse Ox 36.6 C 94 24 H 120/72 99 09/08/19 14:15 09/08/19 16:00 09/08/19 16:00 09/08/19 14:15 09/08/19 16:00 Oxygen Flow Rate (L/min) 2 Oxygen Delivery Method Bi-pap Weight: 72 kg Body Mass Index (BMI) 25.4 Finger Stick Blood Glucose 166 Intake and Output for Last 24 Hours 09/06/19 09/07/19 09/08/19 23:59 23:59 23:59 Intake Total 810 / 1035 825 / 825 340 / 340 Output Total 0 / 600 650 / 650 75 / 75 Balance 810 / 435 175 / 175 265 / 265 General: Alert, Cooperative, No apparent distress HEENT: Atraumatic, Normocephalic Oral: Moist Mucosa, No Gingival or Mucosal Lesions/ Ulcerations Neck: No Nodes, Trachea Midline Lungs: Clear to auscultation, Diminished Cardiovascular: Regular rate, Regular Rhythm, Normal S1, Normal S2, No murmurs Abdomen: Bowel Sounds Present, Soft, Non Tender, Non-Distended, No Hepato- splenomegaly Extremities: No edema, No Calf Tenderness Psych/Mental Status: Flat Affect Microbiology Past 72 Hours 09/04/19 11:28 Blood Culture (Wb) - Left Hand Blood Culture - Preliminary No growth in 48 hours. 09/04/19 10:34 Blood Culture (Wb) - Anticubital Left Blood Culture - Pr eliminary No growth in 48 hours. 09/04/19 11:15 Urine Catheter - Catheter Urine Culture - Final Culture exhibits no growth. Laboratory Results 09/08/19 05:42: PT 24.3 H, INR 2.2 Current Medications Acetaminophen (Tylenol) 650 mg PO Q6H PRN PRN PRN Reason: Pain Score 1-10/Temp > 100.7 F Last Admin: 09/05/19 15:37 Dose: 650 mg Documented by: Albuterol Sulfate (Ventolin Aerosols) 2.5 mg INHALATION Q2H PRN PRN PRN Reason: SOB/Wheezing Last Admin: 09/08/19 14:40 Dose: 2.5 mg Documented by: Bisacodyl (Dulcolax) 10 mg RECTAL DAILY PRN PRN PRN Reason: Constipation Budesonide (Pulmicort Aerosol) 0.25 mg INHALATION Q12H.RT [facility] Last Admin: 09/08/19 07:14 Dose: 0.25 mg Documented by: Buspirone HCl (Buspar) 7.5 mg PO QHS [facility] Last Admin: 09/07/19 21:59 Dose: 7.5 mg Documented by: Cyanocobalamin (Vitamin B12) 500 mcg PO DAILY@0800 [facility] Last Admin: 09/08/19 08:27 Dose: 500 mcg Documented by: Diltiazem HCl (Cardizem Cd) 120 mg PO Q12 [facility] Last Admin: 09/08/19 08:26 Dose: 120 mg Documented by: Ergocalciferol (Vitamin D) 50,000 unit PO TH [facility] Last Admin: 09/05/19 08:41 Dose: 50,000 unit Documented by: Glucagon () 1 mg IM .X1 PRN PRN Reason: Hypoglycemia Dextrose (Dextrose 10%-Water) 250 mls @ 999 mls/hr IV .Q16M PRN; Protocol PRN Reason: HYPOGLYCEMIA Lactobacillus Acidophilus (Acidophilus) 1 tablet PO DAILY [facility] Last Admin: 09/08/19 08:27 Dose: 1 tablet Documented by: Lidocaine (Lidoderm Patch) 1 patch TOPICAL DAILY@0600 [facility]; Protocol Last Admin: 09/08/19 06:11 Dose: 1 patch Documented by: Multivitamins/Minerals (Healthy Eyes (Bkc)) 1 capsule PO BIDCM [facility] Last Admin: 09/08/19 16:24 Dose: 1 capsule Documented by: Nitroglycerin (Nitrostat) 0.4 mg SUBLINGUAL Q5M PRN PRN Reason: CARDIAC/CHEST PAIN Ondansetron HCl (Zofran) 4 mg IV Q8H PRN PRN PRN Reason: NAUSEA/VOMITING Last Admin: 09/06/19 14:04 Dose: 4 mg Documented by: Pantoprazole Sodium (Protonix) 20 mg PO DAILY [facility] Last Admin: 09/08/19 08:27 Dose: 20 mg Documented by: Polyethylene Glycol (Miralax) 17 gm PO DAILY [facility] Last Admin: 09/08/19 08:26 Dose: 17 gm Documented by: Senna/Docusate Sodium (Senokot-S, Caterina-Colace) 2 tablet PO QHS [facility] Last Admin: 09/07/19 21:59 Dose: 2 tablet Documented by: Sodium Chloride () 10 - 40 ml IV UD PRN PRN Reason: SALINE FLUSH Sucralfate (Carafate) 1 gm PO 1HR_ACHS [facility] Last Admin: 09/08/19 16:24 Dose: 1 gm Documented by: Warfarin Sodium (Coumadin (Pbkc)) 3 mg PO DAILY@1700 [facility] Last Admin: 09/08/19 16:24 Dose: 3 mg Documented by: STROKE Vital Signs/Narrative: Vital Signs Temp Pulse Resp BP Pulse Ox 09/08/19 16:00 94 24 H 99 09/08/19 15:05 92 09/08/19 14:40 94 27 H 98 09/08/19 14:15 36.6 C 92 20 H 120/72 97 09/08/19 13:00 80 16 96 Medical Necessity - Tobacco Use Smoking Status: Former smoker Assessment/Plan All Active Problems (Last Reviewed 09/04/19 @ 17:18 by Eveline Jason, BIENVENIDO-C) Inflammation of right sacroiliac joint (Acute) Generalized muscle ache (Acute) Encephalopathy acute (Acute) Elevated troponin (Acute) Digoxin toxicity (Acute) HEIDI (acute kidney injury) (Acute) Abnormal EKG (Acute) Lethargy (Acute) Leukocytosis (Acute) 1. Encephalopathy * improving * may be toxic due to digoxin toxicity * hold dig and other potentiating medications * supportive mgmt * PCo2 up, so may also be contributing 2. Digoxin toxicity * unclear how much her symptoms are due to dig toxicity * give Digibind 4 vials x 1 * hold digoxin. Per cardiology, will not resume. * may be exacerbated by HEIDI 3. Elevated troponins * unclear significance * asymptomatic * per cards, may consider stress. though given her worsening performance status, I would suggest medical mgmt as intervention would not yield much in regards to quality of life. * echo EF 65% 4. HEIDI * suspect prerenal * HLIV * resolved 5. Coagulopathy * no bleeding * likely due to poor oral intake while taking warfarin 6. T11 cmprsn fracture * conservative mgmt 7. Chronic hypercapnic respiratory failure * tenuous * DW Dr. Cates, plan will be to arrange for AVAPS as [facility] are not available to arrange for this today. So, patient will remain here until this can be arranged. Additionally, it is unclear if the [facility] will pay for it. 8. VTE proph: low risk as already anticoagulated 9. Prognosis: guarded DW patient's son and dtr at bedside. Code Visit Inpatient E&M: 66268 Subs Hosp L2
[2019-09-08] MEDS: busPIRone 5 MG Tablet 7.5 MG PO (21:54)
[2019-09-08] MEDS: Senna/Docusate Sodium 1 Tablet 2 TABLET PO (21:55)
[2019-09-09] VITALS (10 sets, daily range): BP systolic 120–139; BP diastolic 57–84; PULSE 76–95; RESP 12–20; TEMP 36.3–36.9; O2SAT 96–99
[2019-09-09 06:21] LABS: International Normalized Ratio 1.6
[2019-09-09] MEDS: Lidocaine 5% Patch 1 PATCH TOPICAL (06:45)
[2019-09-09] MEDS: Budesonide Respules 0.5 MG/2 ML AMPUL.NEB. 0.25 MG INHALATION (06:57)
[2019-09-09] MEDS: Albuterol 2.5 MG/3 ML VIAL.NEB. INHALATION (06:58)
[2019-09-09] MEDS: Multivitamin (Healthy Eyes) Capsule 1 CAP PO (07:51)
[2019-09-09] MEDS: Cyanocobalamin 500 MCG Tablet PO (07:51)
--- NOTE | 2019-09-09 08:28 | EKG12_ITS ---
Test Reason : Blood Pressure : / mmHG Vent. Rate : 085 BPM Atrial Rate : 357 BPM P-R Int : 000 ms QRS Dur : 064 ms QT Int : 300 ms P-R-T Axes : 000 024 204 degrees QTc Int : 357 ms Atrial fibrillation Low voltage QRS ST & T wave abnormality consider medication effect, metabolic effect, myocardial ischemia Abnormal ECG Confirmed by MADISON BHAT, URSULA ([id number]), development editor PABLITO TRUONG ([id number]) on 09/11/2019 2:03:53 PM Referred By: NORAH Confirmed By:URSULA WALLACE MD
--- NOTE | 2019-09-09 08:29 | PCM.PN.CARD ---
Subjectve: The patient appears to be resting comfortably at the moment. She denies any ongoing chest discomfort. She states her main concern is her progressive shortness of breath and dyspnea. She has been evaluated by pulmonology and appears to be pending approval for a CPAP/BiPAP device to be available for her at the [facility]. Objective: Vital Signs Temp Pulse Resp BP Pulse Ox 98.4 F 82 20 H 139/80 H 96 09/09/19 03:50 09/09/19 06:57 09/09/19 06:57 09/09/19 03:50 09/09/19 06:57 Oxygen Flow Rate (L/min) 2 Oxygen Delivery Method Nasal Cannula Weight: 158 lb 11.725 oz Body Mass Index (BMI) 25.4 Finger Stick Blood Glucose 166 Intake and Output for Last 24 Hours 09/07/19 09/08/19 09/09/19 23:59 23:59 23:59 Intake Total 825 / 825 820 / 820 100 / 100 Output Total 650 / 650 75 / 75 75 / 75 Balance 175 / 175 745 / 745 25 / 25 General: Awake, Alert, Oriented x 3, Cooperative, No Acute Distress HEENT: Atraumatic, Normocephalic, PERRL, EOMI Oral: Moist Mucosa Neck: Supple, Good ROM, No JVD Lungs: Expiratory Wheezes-Manuel - Bases Cardiovascular: Irregular Rhythm, Normal S1, Normal S2 Abdomen: Bowel Sounds Present, Soft, Non Tender Extremities: Trace RLE Edema, Trace LLE Edema Psych/Mental Status: Appropriate 09/09/19 05:46: PT 19.0 H, INR 1.6 Rhythm: Atrial fibrillation Medical Necessity - Tobacco Use Smoking Status: Former smoker Assessment/Plan 1. Atrial fibrillation The patient remains in atrial fibrillation. She has been treated medically in the past with a combination of agents both orally and intravenously to control her rate. At the present time she is continuing her oral calcium channel antagonist therapy. She has been on anticoagulant therapy as well. Her medications have been adjusted to allow her previously elevated INR level to decrease. 2. Abnormal cardiac enzymes She does have indeterminate troponin I levels. The etiology is unclear at this time whether this truly represents an underlying CAD process versus a type II non-Yoselin CAD related event. Her ECG has demonstrated diffuse nonspecific ST and T wave changes which raise a differential diagnosis of an underlying metabolic effect versus medication effect versus myocardial ischemia. Based upon a conversation with the patient, and review of the patient's medical records, it appears there was a conversation between the [facility] staff and the patient, her son, and daughter during this past weekend. The consensus was to continue conservative medical management and not proceed with any further cardiovascular testing at this time. 3. Digitalis intoxication Her digitalis level was elevated. It is unclear whether this was related to interaction with respect to previous medications, etc. At the present time her digoxin is on hold. Her levels have decreased. 4. Warfarin/Coumadin intoxication Her INR level was elevated. Her INR level has decreased. She will need readjustment of her medications to maintain adequate anticoagulation due to her atrial fibrillation. 5. Chronic diastolic mediated CHF The patient does have a history of chronic diastolic mediated CHF. At the moment she appears without acute symptoms. She will need to continue follow-up of her volume status with adjustment of medications as needed. 6. COPD She does have a longstanding history of COPD. She continues evaluation care per internal medicine and pulmonology. Dr. Cates's input is most appreciated. 7. Pulmonary hypertension There is been concerns of underlying COPD with pulmonary hypertension as well as potentially cor pulmonale and right heart failure in the past. At the moment she continues supportive therapy with oxygen therapy as well as medical management. 8. Hyperlipidemia She will continue medical therapy as deemed appropriate. 9. Hypertension Her blood pressure be followed. Her medications can be adjusted as needed. 10. 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 She will need to continue anticoagulant therapy with adjustment of her levels. Comment: The patient's case was discussed and reviewed with the patient. This note was generated using a voice recognition system and there may be incorrect words, spelling or punctuation that were not noted when reviewing the office note prior to saving.
--- NOTE | 2019-09-09 09:03 | CASEMGMT ---
Patient will now need a bi-pap at the [facility]. SW faxed the settings to [facility] and also let Stacy at [facility] know that patient will need bi-pap. SW will also attempt to talk with patient's daughter regarding Palliative care as per the son it sounds like they misunderstood Palliative Care. Regla VIZCARRA MSW
[2019-09-09] MEDS: Acetaminophen 325 MG Tablet 650 MG PO (10:02)
[2019-09-09] MEDS: dilTIAZem CD 120 MG Capsule PO (10:03)
[2019-09-09] MEDS: Sucralfate 1 GM Tablet PO (10:03)
[2019-09-09] MEDS: Polyethylene Glycol 3350 17 GM PACKET PO (10:03)
[2019-09-09] MEDS: Pantoprazole Sodium 20 MG Tablet PO (10:03)
--- NOTE | 2019-09-09 10:43 | CASEMGMT ---
Dr Cates indicated patient would benefit from an AVAPS. YAO called Stacy at [facility] and she will check with their cordwood cutter helper. In the meantime patient will have a bi-pap at the [facility] care. Regla ANDERSON
--- NOTE | 2019-09-09 11:36 | PCM.EXTCARCO ---
- Diet 09/04/19 13:43 Diet: Cardiac/Low Cholesterol Food consistency:: Regular Liquid Consistency:: Regular/Thin Is pt able to select menu?: Yes - Routine Orders/Code Status Suppository Type: Dulcolax 10mg Suppository Frequency: Daily PRN O2 Frequency: Continuous Routine Lab Work: CBC - 5 days, BMP - 5 days Code Status: DNRCC-A - Therapies Physical Therapy: Eval and Treat Occupational Therapy: Eval and Treat - Allergies/Procedures Done in Hospital Allergies/Adverse Reactions: Allergies amlodipine besylate [From [facility]] Adverse Reaction (Verified 08/22/19 11:46) ANKLE AND LEG EDEMA RESOLVED OFF MED-PER PCP PAPERWORK codeine Adverse Reaction (Verified 08/22/19 11:46) MENTAL STATUS CHANGE lisinopril Adverse Reaction (Verified 08/22/19 11:46) COUGH - Type of Care/Length of Stay Estimated LOS: Convalescent Care Less Than 30 days Type of Care Needed: Skilled Rehab Potential: Fair Prognosis: Fair - Additional Orders/Day of Discharge Additional Orders: Bipap qhs: 26/11 Day of Discharge: 09/09/19 - Follow Up Care Primary Care Physician: Tor Lucia MD [Primary Care Provider] - Please follow up with your Primary Care Physician in: 1-2 weeks Please Follow Up With: Jin Cates DO When: 2 weeks Please Follow Up With: Tor Jaffe MD When: as directed
--- NOTE | 2019-09-09 12:09 | CASEMGMT ---
Dr. Cates would like pt sent to [facility] on AVAPS at bedtime and with naps, so Becka from [facility] states she will go to [facility] to discuss whether they are willing to take pt on AVAPs at this time. This RN CM received call from Becka from [facility] and she states that she spoke with the BALTA[facility]AR and SW at [facility] and that they are willing to take pt at this time on the AVAPS. AVAPS order signed by Dr. Cates at this time and faxed to [facility]. Per Dr. Cates, pt's sleep study that was scheduled for 09/19/2019 can be cancelled at this time as pt no longer needs it since she will be on the AVAPS. Call to Rayna in the sleep lab and she is aware of sleep study cancellation at this time. Nas SAMAYOA aware and will notify [facility] of sleep study cancellation. Teresa from [facility] would like to be notified when pt's transport set up so that she can go to [facility] to set up AVAPS and do teaching. This RN CM will call her when transport set up. Vianney MERCEDES CM
--- NOTE | 2019-09-09 12:24 | PCM.PN.PUL ---
Patient Problems: Active and Suspected Problems (Last Reviewed 09/04/19 @ 17:18 by JOSEPH Callahan) Encephalopathy acute (Acute) Elevated troponin (Acute) Digoxin toxicity (Acute) HEIDI (acute kidney injury) (Acute) Abnormal EKG (Acute) Subjective: The patient was seen and examined at the bedside this morning. Events from the last 24 hours have been reviewed. The patient is currently afebrile, hemodynamically stable and maintaining appropriate oxygen saturations on 3 L/min via nasal cannula. The [facility] is able to provide support to the patient even if she is ordered a noninvasive ventilator. Objective: The patient's most recent lab work, culture data and imaging studies have all been personally reviewed. - Physical Exam Vitals/I&O's: Vital Signs Temp Pulse Resp BP Pulse Ox 98.1 F 89 17 132/57 H 99 09/09/19 10:08 09/09/19 10:08 09/09/19 10:08 09/09/19 10:08 09/09/19 10:08 Oxygen Flow Rate (L/min) 3 Oxygen Delivery Method Nasal Cannula Weight: 158 lb 11.725 oz Body Mass Index (BMI) 25.4 Finger Stick Blood Glucose 166 Intake and Output for Last 24 Hours 09/07/19 09/08/19 09/09/19 23:59 23:59 23:59 Intake Total 825 / 825 820 / 820 340 / 340 Output Total 650 / 650 75 / 75 75 / 75 Balance 175 / 175 745 / 745 265 / 265 General: Alert, No apparent distress HEENT: Atraumatic, Normocephalic Oral: No Gingival or Mucosal Lesions/ Ulcerations Neck: Supple, No Nodes, Trachea Midline Lungs: No rhonchi, No wheeze, No rales, Diminished Cardiovascular: Normal S1, Normal S2, Irregular Rate Abdomen: Bowel Sounds Present, Soft, Non Tender, Obese Extremities: No clubbing, No cyanosis, No edema Skin: No breakdown Musculoskeletal: No Tenderness to Palpation of Joints or Extremities Lymphatic: No Cervical, Supraclavicular, or Inguinal Adenopathy Neurological: Neuro grossly intact Psych/Mental Status: Normal Affect, Appropriate Labs (Last 48 Hours) 09/08/19 09/09/19 05:42 05:46 PT 24.3 H 19.0 H INR 2.2 1.6 Clinical Impression(s) from Imaging Studies Brain CT 09/04/19 10:33 IMPRESSION: Chronic involutional changes of the brain. Electronically Signed: Nathen Hilldania, at 11:19 EST , Service support , Chest X-Ray 09/04/19 10:35 IMPRESSION: Stable mild increased markings at the left lung base with mild elevation of the left hemidiaphragm. Electronically Signed: Nathen Teena, at 10:55 EST , Service support , Chest X-Ray 09/06/19 09:59 IMPRESSION: Slight progression of the increased markings at the lung bases suggestive of bibasilar atelectasis. Electronically Signed: Nathen Teena, at 12:16 EST , Service support , Current Medications Acetaminophen (Tylenol) 650 mg PO Q6H PRN PRN PRN Reason: Pain Score 1-10/Temp > 100.7 F Last Admin: 09/09/19 10:02 Dose: 650 mg Documented by: Albuterol Sulfate (Ventolin Aerosols) 2.5 mg INHALATION Q2H PRN PRN PRN Reason: SOB/Wheezing Last Admin: 09/09/19 06:58 Dose: 2.5 mg Documented by: Bisacodyl (Dulcolax) 10 mg RECTAL DAILY PRN PRN PRN Reason: Constipation Budesonide (Pulmicort Aerosol) 0.25 mg INHALATION Q12H.RT [facility] Last Admin: 09/09/19 06:57 Dose: 0.25 mg Documented by: Buspirone HCl (Buspar) 7.5 mg PO QHS [facility] Last Admin: 09/08/19 21:54 Dose: 7.5 mg Documented by: Cyanocobalamin (Vitamin B12) 500 mcg PO DAILY@0800 [facility] Last Admin: 09/09/19 07:51 Dose: 500 mcg Documented by: Diltiazem HCl (Cardizem Cd) 120 mg PO Q12 [facility] Last Admin: 09/09/19 10:03 Dose: 120 mg Documented by: Ergocalciferol (Vitamin D) 50,000 unit PO TH [facility] Last Admin: 09/05/19 08:41 Dose: 50,000 unit Documented by: Glucagon () 1 mg IM .X1 PRN PRN Reason: Hypoglycemia Dextrose (Dextrose 10%-Water) 250 mls @ 999 mls/hr IV .Q16M PRN; Protocol PRN Reason: HYPOGLYCEMIA Lactobacillus Acidophilus (Acidophilus) 1 tablet PO DAILY [facility] Last Admin: 09/09/19 10:03 Dose: 1 tablet Documented by: Lidocaine (Lidoderm Patch) 1 patch TOPICAL DAILY@0600 [facility]; Protocol Last Admin: 09/09/19 06:45 Dose: 1 patch Documented by: Multivitamins/Minerals (Healthy Eyes (Bkc)) 1 capsule PO BIDCM [facility] Last Admin: 09/09/19 07:51 Dose: 1 capsule Documented by: Nitroglycerin (Nitrostat) 0.4 mg SUBLINGUAL Q5M PRN PRN Reason: CARDIAC/CHEST PAIN Ondansetron HCl (Zofran) 4 mg IV Q8H PRN PRN PRN Reason: NAUSEA/VOMITING Last Admin: 09/06/19 14:04 Dose: 4 mg Documented by: Pantoprazole Sodium (Protonix) 20 mg PO DAILY [facility] Last Admin: 09/09/19 10:03 Dose: 20 mg Documented by: Polyethylene Glycol (Miralax) 17 gm PO DAILY [facility] Last Admin: 09/09/19 10:03 Dose: 17 gm Documented by: Senna/Docusate Sodium (Senokot-S, Caterina-Colace) 2 tablet PO QHS [facility] Last Admin: 09/08/19 21:55 Dose: 2 tablet Documented by: Sodium Chloride () 10 - 40 ml IV UD PRN PRN Reason: SALINE FLUSH Sucralfate (Carafate) 1 gm PO 1HR_ACHS [facility] Last Admin: 09/09/19 10:03 Dose: 1 gm Documented by: Warfarin Sodium (Coumadin (Pbkc)) 3 mg PO DAILY@1700 [facility] Last Admin: 09/08/19 16:24 Dose: 3 mg Documented by: Medical Necessity - Tobacco Use Smoking Status: Former smoker Assessment/Plan All Active Problems (Last Reviewed 09/04/19 @ 17:18 by DIVINE CallahanC) Inflammation of right sacroiliac joint (Acute) Generalized muscle ache (Acute) Encephalopathy acute (Acute) Elevated troponin (Acute) Digoxin toxicity (Acute) HEIDI (acute kidney injury) (Acute) Abnormal EKG (Acute) Lethargy (Acute) Leukocytosis (Acute) RECOMMENDATIONS: 1. Continue nebulized bronchodilators and inhaled corticosteroid. 2. Wean supplemental oxygen as tolerated. 3. The patient is a candidate for non-invasive ventilatory support (AVAPS) upon discharge. Orders have been placed accordingly. 4. Case management to assist with noninvasive ventilator set up through [facility]. 5. Outpatient sleep study can be canceled. 6. Recommend pulmonary follow-up within 2 weeks of discharge. IMPRESSIONS: 1. Chronic combined respiratory failure/COPD with frequent exacerbations The patient has a known history of severe obstructive lung disease based upon pulmonary function studies last completed in January 2017. She also has a baseline, chronic supplemental oxygen requirement. The patient has chronic CO2 retention and was last noted to have a PCO2 of 57.7 on arterial blood gas obtained September 04. Given the patient's respiratory history, coupled with recurrent exacerbations, she would benefit from the use of a noninvasive ventilator in her home environment. The patient requires volume ventilation and all other alternative therapies have been considered and ruled out due to the severity of the disease state and life-threatening condition, including CO2 retention. Due to increased probability of acute exacerbation, the patient requires ventilation to be used during the day as needed, in addition to nightly usage with a facemask. 2. Atrial fibrillation/elevated troponin Continue current medical management per cardiology recommendations. 3. Encephalopathy/acute kidney injury/coagulopathy/GERD Complicates care, management, recovery and prognosis. Continue home medications as indicated. This note was generated with [employer] software. It may contain incorrect words, spelling, and punctuation that were not noted in checking the note before signing. Code Visit Inpatient E&M: 31961 Subs Hosp L2
--- NOTE | 2019-09-09 12:27 | PHA.DC.MR ---
Pharmacy Service has performed discharge medication reconciliation for this patient upon transfer to [facility]. The patient's discharge medication list was reviewed for discrepancies and discrepancies were resolved. Home Medications Ergocalciferol [Vitamin D] 50,000 unit PO TH 07/19/15 Warfarin Sodium 4 mg PO MOTH 03/08/18 Citalopram Hydrobromide [Citalopram HBr] 40 mg PO DAILY 05/23/18 Budesonide 2 ml IH BID 01/17/19 Omeprazole 20 mg PO DAILY 01/17/19 Sucralfate [Carafate] 1 gm PO Q6H PRN PRN 01/17/19 Vit A/Vit C/Vit E/Zinc/Copper [Preservision Areds Tablet] 1 ea PO BID 01/17/19 Warfarin [Coumadin] 3 mg PO [id number] 01/17/19 Buspirone HCl 7.5 mg PO QHS 05/07/19 Cyanocobalamin (Vitamin B-12) [Vitamin B-12] 500 mcg PO DAILY@0800 07/12/19 Polyethylene Glycol 3350 17 gm PO DAILY 07/12/19 Potassium Chloride 20 meq PO DAILY #0 08/10/19 Bisacodyl [Gentle Laxative] 10 mg IA DAILY PRN PRN 08/22/19 Diltiazem CD [Cardizem CD] 120 mg PO Q12 08/22/19 Lactobacillus Acidophilus [Acidophilus] 1 ea PO DAILY 08/22/19 Sennosides/Docusate Sodium [Senna Plus 8.6-50 mg Tablet] 2 tab PO QHS 08/22/19 traMADol [Ultram] 50 mg PO TID 08/22/19 Acetaminophen [Tylenol Tablet] 650 mg PO Q6H PRN PRN tab 08/24/19 Methocarbamol [Robaxin] 500 mg PO TID PRN #42 tab 08/24/19 gabapentin 100 mg capsule 100 mg PO QHS 08/28/19 Lidocaine [Lidocaine Pain Relief] 1 ea TOPICAL DAILY 09/04/19 Ondansetron HCl [Zofran] 4 mg PO Q6H PRN 09/04/19 Albuterol Aerosols [Ventolin Aerosols] 2.5 mg INHALATION Q2H PRN PRN vial.neb. 09/09/19 Furosemide [Lasix] 40 mg PO DAILY #30 09/09/19
--- NOTE | 2019-09-09 14:31 | PCM.DC.SUM ---
<Kris Pollard - Last Filed: 09/09/19 14:31> Discharge Date and Diagnosis Date of Admission: 09/04/19 Date of Discharge: 09/09/19 - Primary Discharge Diagnosis Active and Suspected Problems (Last Reviewed 09/04/19 @ 17:18 by Eveline Jason NP-C) Bradycardia and toxic encephalopathy secondary to dig toxicity, resolved Atrial fibrillation Acute kidney injury resolved T11 compression fracture COPD Chronic hypoxic respiratory failure - Secondary Discharge Diagnosis Chronic Problems (Last Reviewed 09/04/19 @ 17:18 by Eveline Jason NP-C) Back pain (Chronic) Compression fracture (Chronic) Other intervertebral disc degeneration, lumbar region (Chronic) Spinal stenosis, lumbar region with neurogenic claudication (Chronic) Spondylosis without myelopathy or radiculopathy, lumbar region (Chronic) Lumbago with sciatica, right side (Chronic) Unspecified abnormalities of gait and mobility (Chronic) Compression fracture of thoracic vertebra with routine healing (Chronic) ANKUSH (obstructive sleep apnea) (Chronic) Diastolic dysfunction (Chronic) Chronic hypoxemic respiratory failure (Chronic) Chronic anticoagulation (Chronic) Former tobacco use (Chronic) Depression (Chronic) Pulmonary hypertension (Chronic) History of recurrent deep vein thrombosis (DVT) (Chronic) History of pulmonary embolism (Chronic) History of cardioversion (Chronic) January of 2018.....HR not controlled with exertion while in AF on Beta donna and cardizem. Converted to NSR with cardioversion Paroxysmal atrial fibrillation (Chronic) DCCV on 01/31/2018; HTN (hypertension) (Chronic) Iron deficiency anemia (Chronic) Chronic diastolic CHF (congestive heart failure) (Chronic) Atrial fibrillation with RVR (Chronic) Dyslipidemia (Chronic) COPD (chronic obstructive pulmonary disease) (Chronic) Hospital Course and Treatment Imaging Results: CT/Brain/Head without Contrast IMPRESSION: Chronic involutional changes of the brain. RAD/Chest 1 View (Portable) IMPRESSION: Stable mild increased markings at the left lung base with mild elevation of the left hemidiaphragm. Echo: Interpretation Summary The estimated ejection fraction is 65 %. Unable to assess diastolic dysfunction due to arrhythmia. The right atrium is mildly enlarged. Mild (1+) tricuspid valve insufficiency. Right ventricular systolic pressure estimated to be 51 mmHg. Moderate pulmonary hypertension. Compared to echo report dated 07/15/2019, no appreciable changes noted. Patient appears to be in atrial fibrillation on today's exam. RAD/Chest PA and Lateral IMPRESSION: Slight progression of the increased markings at the lung bases suggestive of bibasilar atelectasis. Consults: Pulmonary medicine - [facility] - Alannah Martini Operations: None Procedures: 2-D Echocardiogram Summary of Care Provided: Hospital course: The patient is a 73 year old F with pmhx as above who presented to the ER with c/o increasing confusion at the skilled nursing with increased somnolence and poor PO intake. In the ER she had questionable EKG and increased troponin however cardiology felt that she more likely had dig toxicity. Dig level was indeed elevated at 5.5. She was taken off cardizem and dig. She received digibind x1. Cardiology was consulted. She was given IV fluids and lasix held for HEIDI. Cardio recommended obtaining an echo, tsh, and thyroid studies. These did not show a significant abnormality. Cardizem was reintroduced successfully. She developed increasing SOB while here. Pulm was consulted. No acute process could be found. She has severe lung disease and chronic SOB. She did well with bipap and we are arranging for her to have bipap and possibly avaps at the SNF. Palliative care was recommended and the patient was agreeable. They will meet with the patient at the SNF. She was discharged back to SNF in stable condition. She will not resume digoxin. She will need follow up with cardiology and pulmonology as directed as well as with her PCP in 1-2 weeks. This patient was seen by Kris Pollard PA-C under the supervision of Doctor Brown [] - Physical Exam Vitals/I&O's: Vital Signs Temp Pulse Resp BP Pulse Ox 98.1 F 95 20 H 120/84 H 98 09/09/19 14:12 09/09/19 14:12 09/09/19 14:12 09/09/19 14:12 09/09/19 14:12 Oxygen Flow Rate (L/min) 3 Oxygen Delivery Method Nasal Cannula Weight: 158 lb 11.725 oz Body Mass Index (BMI) 25.4 Finger Stick Blood Glucose 166 Intake and Output for Last 24 Hours 09/07/19 09/08/19 09/09/19 23:59 23:59 23:59 Intake Total 825 / 825 820 / 820 340 / 340 Output Total 650 / 650 75 / 75 75 / 75 Balance 175 / 175 745 / 745 265 / 265 General: Alert, Oriented x3, Cooperative HEENT: Atraumatic, PERRLA, EOMI, Normocephalic Neck: Supple, No JVD, Negative Carotid Bruits Lungs: Clear to auscultation, Diminished Cardiovascular: Regular rate, No murmurs Abdomen: Bowel Sounds Present, Soft, Non Tender Extremities: No edema, Capillary Refill Less than 3 Seconds Skin: No rashes, No breakdown Musculoskeletal: No Tenderness to Palpation of Joints or Extremities Neurological: Cranial nerves II-XII grossly intact Psych/Mental Status: Normal Affect, Appropriate Microbiology Past 72 Hours 09/04/19 11:28 Blood Culture (Wb) - Left Hand Blood Culture - Preliminary No growth in 48 hours. 09/04/19 10:34 Blood Culture (Wb) - Anticubital Left Blood Culture - Preliminary No growth in 48 hours. 09/04/19 11:15 Urine Catheter - Catheter Urine Culture - Final Culture exhibits no growth. Laboratory Results 09/09/19 05:46: PT 19.0 H, INR 1.6 Current Medications Acetaminophen (Tylenol) 650 mg PO Q6H PRN PRN PRN Reason: Pain Score 1-10/Temp > 100.7 F Last Admin: 09/09/19 10:02 Dose: 650 mg Documented by: Albuterol Sulfate (Ventolin Aerosols) 2.5 mg INHALATION Q2H PRN PRN PRN Reason: SOB/Wheezing Last Admin: 09/09/19 06:58 Dose: 2.5 mg Documented by: Bisacodyl (Dulcolax) 10 mg RECTAL DAILY PRN PRN PRN Reason: Constipation Budesonide (Pulmicort Aerosol) 0.25 mg INHALATION Q12H.RT [facility] Last Admin: 09/09/19 06:57 Dose: 0.25 mg Documented by: Buspirone HCl (Buspar) 7.5 mg PO QHS [facility] Last Admin: 09/08/19 21:54 Dose: 7.5 mg Documented by: Cyanocobalamin (Vitamin B12) 500 mcg PO DAILY@0800 [facility] Last Admin: 09/09/19 07:51 Dose: 500 mcg Documented by: Diltiazem HCl (Cardizem Cd) 120 mg PO Q12 [facility] Last Admin: 09/09/19 10:03 Dose: 120 mg Documented by: Ergocalciferol (Vitamin D) 50,000 unit PO TH [facility] Last Admin: 09/05/19 08:41 Dose: 50,000 unit Documented by: Glucagon () 1 mg IM .X1 PRN PRN Reason: Hypoglycemia Dextrose (Dextrose 10%-Water) 250 mls @ 999 mls/hr IV .Q16M PRN; Protocol PRN Reason: HYPOGLYCEMIA Lactobacillus Acidophilus (Acidophilus) 1 tablet PO DAILY [facility] Last Admin: 09/09/19 10:03 Dose: 1 tablet Documented by: Lidocaine (Lidoderm Patch) 1 patch TOPICAL DAILY@0600 [facility]; Protocol Last Admin: 09/09/19 06:45 Dose: 1 patch Documented by: Multivitamins/Minerals (Healthy Eyes (Bkc)) 1 capsule PO BIDCM [facility] Last Admin: 09/09/19 07:51 Dose: 1 capsule Documented by: Nitroglycerin (Nitrostat) 0.4 mg SUBLINGUAL Q5M PRN PRN Reason: CARDIAC/CHEST PAIN Ondansetron HCl (Zofran) 4 mg IV Q8H PRN PRN PRN Reason: NAUSEA/VOMITING Last Admin: 09/06/19 14:04 Dose: 4 mg Documented by: Pantoprazole Sodium (Protonix) 20 mg PO DAILY [facility] Last Admin: 09/09/19 10:03 Dose: 20 mg Documented by: Polyethylene Glycol (Miralax) 17 gm PO DAILY [facility] Last Admin: 09/09/19 10:03 Dose: 17 gm Documented by: Senna/Docusate Sodium (Senokot-S, Caterina-Colace) 2 tablet PO QHS [facility] Last Admin: 09/08/19 21:55 Dose: 2 tablet Documented by: Sodium Chloride () 10 - 40 ml IV UD PRN PRN Reason: SALINE FLUSH Sucralfate (Carafate) 1 gm PO 1HR_ACHS [facility] Last Admin: 09/09/19 10:03 Dose: 1 gm Documented by: Warfarin Sodium (Coumadin (Pbkc)) 3 mg PO DAILY@1700 [facility] Last Admin: 09/08/19 16:24 Dose: 3 mg Documented by: Discharge Diet: Low fat/ Low Cholesterol, 2000 mg Sodium Diet Discharge Activity: Return to Normal Activity Home Medications: Medications to take at Discharge Ergocalciferol [Vitamin D] 50,000 unit PO TH 07/19/15 Warfarin Sodium 4 mg PO MOTH 03/08/18 Citalopram Hydrobromide [Citalopram HBr] 40 mg PO DAILY 05/23/18 Budesonide 2 ml IH BID 01/17/19 Omeprazole 20 mg PO DAILY 01/17/19 Sucralfate [Carafate] 1 gm PO Q6H PRN PRN 01/17/19 Vit A/Vit C/Vit E/Zinc/Copper [Preservision Areds Tablet] 1 ea PO BID 01/17/19 Warfarin [Coumadin] 3 mg PO SUTUWEFRSA 01/17/19 Buspirone HCl 7.5 mg PO QHS 05/07/19 Cyanocobalamin (Vitamin B-12) [Vitamin B-12] 500 mcg PO DAILY@0800 07/12/19 Polyethylene Glycol 3350 17 gm PO DAILY 07/12/19 Potassium Chloride 20 meq PO DAILY #0 08/10/19 Bisacodyl [Gentle Laxative] 10 mg TN DAILY PRN PRN 08/22/19 Diltiazem CD [Cardizem CD] 120 mg PO Q12 08/22/19 Lactobacillus Acidophilus [Acidophilus] 1 ea PO DAILY 08/22/19 Sennosides/Docusate Sodium [Senna Plus 8.6-50 mg Tablet] 2 tab PO QHS 08/22/19 traMADol [Ultram] 50 mg PO TID 08/22/19 Acetaminophen [Tylenol Tablet] 650 mg PO Q6H PRN PRN tab 08/24/19 Methocarbamol [Robaxin] 500 mg PO TID PRN #42 tab 08/24/19 gabapentin 100 mg capsule 100 mg PO QHS 08/28/19 Lidocaine [Lidocaine Pain Relief] 1 ea TOPICAL DAILY 09/04/19 Ondansetron HCl [Zofran] 4 mg PO Q6H PRN 09/04/19 Albuterol Aerosols [Ventolin Aerosols] 2.5 mg INHALATION Q2H PRN PRN vial.neb. 09/09/19 Furosemide [Lasix] 40 mg PO DAILY #30 09/09/19 Primary Care Physician: Tor Lucia MD [Primary Care Provider] - Please follow up with your Primary Care Physician in: 1-2 weeks Please Follow Up With: Jin Cates DO When: 2 weeks Please Follow Up With: Tor Jaffe MD When: as directed Disposition: Assisted facility Minutes spent on discharge:: 35 Patient Condition:: Stable Medical Necessity - Tobacco Use Smoking Status: Former smoker Meaningful Use Info Meaningful Use Diagnoses (Choose all that apply): None applicable <Ketan Brown - Last Filed: 09/09/19 18:19> Discharge Date and Diagnosis - Secondary Discharge Diagnosis Chronic Problems (Last Reviewed 09/04/19 @ 17:18 by Eveline Jason NP-C) Back pain (Chronic) Compression fracture (Chronic) Other intervertebral disc degeneration, lumbar region (Chronic) Spinal stenosis, lumbar region with neurogenic claudication (Chronic) Spondylosis without myelopathy or radiculopathy, lumbar region (Chronic) Lumbago with sciatica, right side (Chronic) Unspecified abnormalities of gait and mobility (Chronic) Compression fracture of thoracic vertebra with routine healing (Chronic) ANKUSH (obstructive sleep apnea) (Chronic) Diastolic dysfunction (Chronic) Chronic hypoxemic respiratory failure (Chronic) Chronic anticoagulation (Chronic) Former tobacco use (Chronic) Depression (Chronic) Pulmonary hypertension (Chronic) History of recurrent deep vein thrombosis (DVT) (Chronic) History of pulmonary embolism (Chronic) History of cardioversion (Chronic) January of 2018.....HR not controlled with exertion while in AF on Beta donna and cardizem. Converted to NSR with cardioversion Paroxysmal atrial fibrillation (Chronic) DCCV on 01/31/2018; HTN (hypertension) (Chronic) Iron deficiency anemia (Chronic) Chronic diastolic CHF (congestive heart failure) (Chronic) Atrial fibrillation with RVR (Chronic) Dyslipidemia (Chronic) COPD (chronic obstructive pulmonary disease) (Chronic) Hospital Course and Treatment Summary of Care Provided: This patient was seen in conjunction with Kris ZAPATA. I have independently interviewed and examined the patient and reviewed pertinent history, examination findings, laboratory and plan of management. I have reviewed the note and agree with the documented findings with the few additional points. In brief, patient is 73-year-old female with history of COPD was admitted for increasing confusion, somnolence from skilled nursing. Patient has questionable EKG change and increased troponin that was thought to be secondary to distal talus toxicity. His level was elevated at 5.5. She had one dizzy bed. Software Validation Technician was consulted. Cardizem was resumed later. Horseshoer was also consulted for severe shortness of breath which is more chronic and COPD and respiratory status improved on AVAPS. Palliative care recommended and patient agreed. Palliative care meeting and service to continue at SNF. His oxygen discontinued. Discharge medication reconciliation done. Discharge follow-up instructions completed. Discharge process discussed with the patient and all questions were answered to patient's satisfaction. Total time spent, exact 35 minutes on discharge meds reconciliation, examination, coordination of care with nurses and ancillary staff, review of imaging and blood test and discussion with the patient on follow-up instructions I have discussed my assessment with Kris ZAPATA and orders have been reviewed. [] Subjective: Patient is very physically deconditioned secondary to end-stage COPD, on BiPAP and recurrent admission - Physical Exam Vitals/I&O's: Vital Signs Temp Pulse Resp BP Pulse Ox 98.1 F 95 20 H 120/84 H 98 09/09/19 14:12 09/09/19 14:12 09/09/19 14:12 09/09/19 14:12 09/09/19 14:12 Oxygen Flow Rate (L/min) 3 Oxygen Delivery Method Nasal Cannula Weight: 158 lb 11.725 oz Body Mass Index (BMI) 25.4 Finger Stick Blood Glucose 166 Intake and Output for Last 24 Hours 09/07/19 09/08/19 09/09/19 23:59 23:59 23:59 Intake Total 825 / 825 820 / 820 340 / 340 Output Total 650 / 650 75 / 75 75 / 75 Balance 175 / 175 745 / 745 265 / 265 General: Alert, Oriented x3, Cooperative HEENT: Atraumatic, PERRLA, EOMI, Normocephalic Neck: Supple, No JVD, Negative Carotid Bruits Lungs: Diminished - Air entry diffusely diminished, her baseline., Rhonchi, Wheezes Cardiovascular: Regular rate, Regular Rhythm, Normal S1, Normal S2, No murmurs Abdomen: Bowel Sounds Present, Soft, Non Tender, Non-Distended Extremities: No edema, Capillary Refill Less than 3 Seconds Skin: No rashes, No breakdown Musculoskeletal: No Tenderness to Palpation of Joints or Extremities, Arthritic Changes, Muscle Wasting Neurological: Cranial nerves II-XII grossly intact, Deep Tendon Reflexes 2+/4 and Symmetrical, Neuro grossly intact Psych/Mental Status: Normal Affect, Appropriate Microbiology Past 72 Hours 09/04/19 11:28 Blood Culture (Wb) - Left Hand Blood Culture - Preliminary No growth in 48 hours. 09/04/19 10:34 Blood Culture (Wb) - Anticubital Left Blood Culture - Preliminary No growth in 48 hours. Laboratory Results 09/09/19 05:46: PT 19.0 H, INR 1.6 Code Visit Inpatient E&M: 01103 Disch Hosp
--- NOTE | 2019-09-09 14:33 | CASEMGMT ---
YAO spoke with patient and let her know [facility] and Shawn worked with [employer] to get her the specialized machine pulmonary feels she needs. She said her daughter will take her back. She gave SW permission to call her daughter. SW called patient's daughter, Irene. YAO introduced self and role at [facility]. YAO explained patient will be discharged today. YAO explained that [facility] and Shawn worked with [employer] to get the specialized equipment patient needs. SW also talked with her about Palliative Care and explained she can still do therapy and get any treatments necessary. She said they are in agreement with SW making another referral to Palliative Care. SW told her they will call her to schedule an appt to discuss their services. SW called Palliative Care and made a referral. YAO also faxed information. Regla VIZCARRA MSW
--- NOTE | 2019-09-09 14:46 | NURSING ---
This RN called report to MAGO Daly at the [facility].
--- NOTE | 2019-09-09 15:01 | CASEMGMT ---
YAO faxed orders to [facility]. YAO called patient's daughter and let her know she can come pick patient up. YAO notified [facility] that patient will be returning in the next 30 minutes. Plan: d/c back to [facility] under intermediate level of care. Patient's daughter transported her via private vehicle. Regla VIZCARRA MSW
== END 2019-09-09 15:25 | disposition intermediate care facility (04) | DRG 309 ==
LOC: ED 11:03 → PCU 12:27
PROVIDERS: Internal Medicine Cardiovascular Disease; Physician Assistant; Emergency Provider Emergency Medicine; PCP Family Medicine; Visit Provider Internal Medicine
DX: R00.1 Bradycardia, unspecified (principal); N17.9 Acute kidney failure, unspecified; J96.12 Chronic respiratory failure with hypercapnia; J96.11 Chronic respiratory failure with hypoxia; I50.32 Chronic diastolic (congestive) heart failure; Z99.81 Dependence on supplemental oxygen; Z66 Do not resuscitate; J44.9 Chronic obstructive pulmonary disease, unspecified; T46.0X5A Adverse effect of cardiac-stimulant glycosides and drugs of similar action, initial encounter; I27.20 Pulmonary hypertension, unspecified; I48.91 Unspecified atrial fibrillation; G89.29 Other chronic pain; M54.9 Dorsalgia, unspecified; Z87.891 Personal history of nicotine dependence; E78.5 Hyperlipidemia, unspecified; Z79.01 Long term (current) use of anticoagulants; Z86.711 Personal history of pulmonary embolism; I11.0 Hypertensive heart disease with heart failure; F32.9 Major depressive disorder, single episode, unspecified
CPT/HCPCS: 36415; 36600; 70450; 71045; 71046; 80048; 80053; 80162; 81001; 82533; 82803; 82962; 83605; 83690; 84439; 84443; 84484; 85025; 85610; 85730; 87040; 87086; 93005; 93306; 94002; 94003; 94640; 97162; 97167; 99285; J7030; A4216; J1162; J2405; J3490

== ENCOUNTER 2019-11-11 03:19 | Inpatient (IN) | payer MEDICARE, MEDICAID, SELFPAY ==
[2019-10-24 07:47] VITALS: BMI 25.4
[2019-11-11] VITALS (22 sets, daily range): BP systolic 107–141; BP diastolic 59–106; PULSE 80–138; RESP 12–99; TEMP 36.5–37; O2SAT 25–99; BMI 29.1; BMI 27.9
--- NOTE | 2019-11-11 03:25 | ED.RN ---
CALLED FOR EKG PER DR REQUEST, PULLED OLD EKGS
--- NOTE | 2019-11-11 03:29 | EKG12_ITS ---
Test Reason : CP Blood Pressure : / mmHG Vent. Rate : 096 BPM Atrial Rate : 136 BPM P-R Int : 000 ms QRS Dur : 072 ms QT Int : 374 ms P-R-T Axes : 000 045 032 degrees QTc Int : 472 ms Atrial fibrillation Low voltage QRS Abnormal ECG Confirmed by ENOCH SINHA ([id number]), graphics editor BANG URBINA ([id number]) on 11/15/2019 10:21:27 AM Referred By: Confirmed By:ENOCH SINHA
[2019-11-11 03:41] LABS: Absolute Lymphocyte Count 1.62 X10^3/uL (0.83-4.51); Absolute Neutrophil Count 7.8 X10^3/uL (2.0-7.7); Basophil# 0.05 X10^3/uL; Basophil% 0.5 % (0-1); Eosinophil# 0.17 X10^3/uL; Eosinophils% 1.6 % (0-5); Hematocrit 37.8 % (37-47); Hemoglobin 11.5 g/dL (12.0-15.0); Lymphocyte # 1.62 X10^3/ul (4.0); Lymphocyte % 15.5 % (19-41); Mean Corp Hgb Conc 30.4 g/dL (32-36); Mean Corpuscular Hgb 27.9 pg (27.0-32.0); Mean Corpuscular Volume 91.7 fL (81-99); Mean Platelet Vol. 12.2 fl (6.2-12.0); Monocyte# 0.81 X10^3/uL; Monocyte% 7.7 % (0-10); NRBC Flagged by Analyzer 0 % (0-5); Neutrophil # 7.79 X10^3/uL (2.7-7.7); Neutrophil % 74.3 % (47-70); Platelet Count 260 K/mm3 (150-450); RBC Distribution Width CV 15.2 % (11.6-14.6); RBC Distribution Width SD 51.5 fl (35.1-43.9); Red Blood Count 4.12 M/mm3 (4.2-5.4); White Blood Count 10.5 K/mm3 (4.4-11.0)
[2019-11-11 03:46] LABS: International Normalized Ratio 1.2; Prothrombin Time (Protime)PT. 14.2 SECONDS (11.7-14.9)
[2019-11-11 03:47] LABS: Partial Thromboplast Time 29.9 Seconds (24.1-36.2)
--- NOTE | 2019-11-11 03:50 | RAD_ITS ---
HISTORY: shortness of breath and chest pain ADDITIONAL HISTORY: None provided. TECHNIQUE: Frontal chest radiograph. Number of images including paperwork: 1 COMPARISON: 09/06/2018 FINDINGS: LUNGS AND PLEURA: Small left pleural effusion and mild left basilar opacity. Left hemidiaphragm elevation again seen. CARDIAC SILHOUETTE: Stable. MEDIASTINUM AND DESIREE: Stable. UPPER ABDOMEN: Unremarkable. SKELETON AND SOFT TISSUES: No acute findings. Degenerative changes. OTHER DEVICES AND HARDWARE: None. RAD/Chest 1 View (Portable) IMPRESSION: Small left pleural effusion with associated atelectasis versus infiltrate. at 0408 Reported and signed by: Diana Pike MD Electronically Signed: Diana Piek MD at 4:07 EDT Tel , Service support ,
--- NOTE | 2019-11-11 03:53 | ED.RN ---
THIS RN CALLED THE AVENUE TO OBTAIN REPORT ON THE PATIENT. STAFF REPORTS FAMILY WAS NOT NOTIFIED AT PATIENT TRANSFER.
--- NOTE | 2019-11-11 03:53 | ED.VIS.GEN ---
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 The [facility] home where she is on the SNF has not yet called report. So history is coming from EMS. They tell me the patient has a history of COPD and anxiety. She was complaining of chest pain going into the left arm earlier tonight and she received Tylenol and Ativan. She chronically wears BiPAP at night and she was given that. EMS states that since they have arrived the severity of her tachypnea has greatly improved. There is been no reported change in cough or sputum production. No fevers. Former smoker. DNR [facility] arrest paperwork accompanies her.. Past Medical History - Allergies and Home Meds Allergies/Adverse Reactions: Allergies amlodipine besylate [From [facility]] Adverse Reaction (Verified 10/23/19 14:49) ANKLE AND LEG EDEMA RESOLVED OFF MED-PER PCP PAPERWORK codeine Adverse Reaction (Verified 10/23/19 14:49) MENTAL STATUS CHANGE lisinopril Adverse Reaction (Verified 10/23/19 14:49) COUGH Primary Care Physician: Tor Lucia MD [Primary Care Provider] - Surgical History: cholecystectomy, hysterectomy, - - tailbone surgery. Smoking Status: Never smoker - Family History Maternal Family History: Family History (Last Reviewed 10/24/19 @ 12:22 by JOSEPH Callahan) Sister Heart disease Family History: Reports: - - Patient notes a maternal history of dementia and stroke. Paternal Family History: Family History (Last Reviewed 10/24/19 @ 12:22 by JOSEPH Callahan) Sister Heart disease Family History: Reports: - Sibling Family History: Family History (Last Reviewed 10/24/19 @ 12:22 by JOSEPH Callahan) Sister Heart disease Family History: Reports: - - Patient notes a sibling specifically her sister with Parkinson's disease and heart disease as well as a brother with Parkinson's disease, asthma and history of blood clots. Review of Systems General: Denies: Chills, Fever, Sweats Eyes: Denies: Visual changes - bilaterally, Diplopia ENT: Denies: Rhinorrhea, Sore throat Cardiovascular: Denies: Chest pain, Palpitations Respiratory: Reports: Dyspnea, Cough - no change from baseline Gastrointestinal: Denies: Abdominal pain, Nausea, Vomiting, Diarrhea, Melena, Hematochezia Genitourinary: Denies: Dysuria, Hematuria, Frequency Musculoskeletal: Denies: Back pain, Extremity Pain Skin: Denies: Rash, Wounds Neurological: Denies: Headache, Weakness, Numbness Psych: Reports: Anxiety Physical Exam Vital Signs/Narrative: Vital Signs Temp Pulse Resp BP Pulse Ox 11/11/19 03:30 98 11/11/19 03:29 98.6 F 99 99 H 130/96 H 25 11/11/19 03:23 98.2 F 125 H 35 H 141/93 H 97 Inital Vital Signs reviewed: Yes General: Well nourished, Well developed, No Acute Distress Head: Normocephalic, Atraumatic Eyes: Perrl, EOMI ENT: Moist mucous membranes, No rhinorrhea Neck: Supple, Nontender Cardiovascular: No murmurs, Irregular, Tachycardia Respiratory: CTA bilaterally, Chest nontender, Decreased Air Movement, - - Patient is tachypneic Abdomen: Soft, Nontender, Nondistended, Normal bowel sounds Back: Nontender, Normal Inspection Extremities: Nontender, No edema Skin: Normal color, No rash Neurological: Alert, Oriented x3, Cranial nerves II-XII grossly intact, Normal Strength, Normal Sensation Psychological: - - Patient appears extremely anxious squeezing the railing of the bed. Diagnostic/Tx/Re-eval Laboratory Last Values WBC 10.5 K/mm3 (4.4-11.0) 11/11/19 03:22 RBC 4.12 M/mm3 (4.2-5.4) L 11/11/19 03:22 Hgb 11.5 g/dL (12.0-15.0) L 11/11/19 03:22 Hct 37.8 % (37-47) 11/11/19 03:22 MCV 91.7 fL (81-99) 11/11/19 03:22 MCH 27.9 pg (27.0-32.0) 11/11/19 03:22 MCHC 30.4 g/dL (32-36) L 11/11/19 03:22 RDW Std Deviation 51.5 fl (35.1-43.9) H 11/11/19 03:22 RDW Coeff of Laura 15.2 % (11.6-14.6) H 11/11/19 03:22 Plt Count 260 K/mm3 (150-450) 11/11/19 03:22 MPV 12.2 fl (6.2-12.0) H 11/11/19 03:22 Immature Gran % (Auto) 0.400 % (0.0-0.9) 11/11/19 03:22 Neut % (Auto) 74.3 % (47-70) H 11/11/19 03:22 Lymph % (Auto) 15.5 % (19-41) L 11/11/19 03:22 [place] % (Auto) 7.7 % (0-10) 11/11/19 03:22 Eos % (Auto) 1.6 % (0-5) 11/11/19 03:22 Baso % (Auto) 0.5 % (0-1) 11/11/19 03:22 Absolute Neuts (auto) 7.8 X10^3/uL (2.0-7.7) H 11/11/19 03:22 Absolute Lymphs (auto) 1.62 X10^3/uL (0.83-4.51) 11/11/19 03:22 Nucleated RBC % 0 % (0-5) 11/11/19 03:22 PT 14.2 SECONDS (11.7-14.9) 11/11/19 03:22 INR 1.2 11/11/19 03:22 APTT 29.9 Seconds (24.1-36.2) 11/11/19 03:22 Sodium 138 mmol/L (136-145) 11/11/19 03:22 Potassium 3.7 mmol/L (3.5-5.1) 11/11/19 03:22 Chloride 101 mmol/L (98-107) 11/11/19 03:22 Carbon Dioxide 33.0 mmol/L (21.0-32.0) H 11/11/19 03:22 Anion Gap 4 (5-15) L 11/11/19 03:22 BUN 15 mg/dL (7-18) 11/11/19 03:22 Creatinine 0.72 mg/dL (0.55-1.02) 11/11/19 03:22 Estim Creat Clear Calc 47.27 ml/min 11/11/19 03:22 Est GFR (MDRD) Af Amer 101 mL/min (>60) 11/11/19 03:22 Est GFR (MDRD) Non-Af 84 mL/min (>60) 11/11/19 03:22 BUN/Creatinine Ratio 20.8 RATIO (10-20) H 11/11/19 03:22 Glucose 105 mg/dL (74-106) 11/11/19 03:22 Lactic Acid 0.9 mmol/L (0.4-1.9) 11/11/19 03:40 Calcium 9.0 mg/dL (8.5-10.1) 11/11/19 03:22 Total Bilirubin 0.70 mg/dL (0.20-1.00) 11/11/19 03:22 AST 18 U/L (15-37) 11/11/19 03:22 ALT 20 U/L (13-56) 11/11/19 03:22 Alkaline Phosphatase 108 U/L (45-117) 11/11/19 03:22 Troponin I < 0.015 ng/mL (<0.045) 11/11/19 03:22 B-Natriuretic Peptide 307.0 pg/mL (0-100) H 11/11/19 03:22 Total Protein 7.3 g/dL (6.4-8.2) 11/11/19 03:22 Albumin 3.3 g/dL (3.2-5.0) 11/11/19 03:22 Globulin 4.0 g/dL (2.2-4.2) 11/11/19 03:22 Albumin/Globulin Ratio 0.8 RATIO (0.9-2.4) L 11/11/19 03:22 Clinical Impression(s) from Imaging Studies Chest X-Ray 11/11/19 03:50 IMPRESSION: Small left pleural effusion with associated atelectasis versus infiltrate. at 0408 Reported and signed by: Diana Pike MD Electronically Signed: Diana Pike MD at 4:07 EDT Tel , Service support , Chest CTA 11/11/19 04:21 IMPRESSION: 1. Left upper lobe and left lower lobe opacities concerning for pneumonia. Atelectasis may also be present. 2. Small left pleural effusion. Individualized dose optimization techniques were used for this CT. at 0532 Reported and signed by: Diana Pike MD Electronically Signed: Diana Pike MD at 5:32 EDT Tel , Service support , - EKG Initial EKG Interpretation: Atrial Fibrillation - EKG demonstrates atrial fibrillation at a rate of 96 with no concerning features of ACS. - Medical Decision Making Patient received 1/2 mg of Ativan a DuoNeb was placed on BiPAP. She made a pretty significant improvement in her symptoms. Chest x-ray is concerning for an effusion and infiltrate. Because she is subtherapeutic on her INR with her A. fib we went ahead and performed a CTA to rule out pulmonary embolism. This demonstrated left upper lobe and left lower lobe opacities and a small left pleural effusion. She was swabbed for COVID as she is in a long care residence. She received vancomycin and Zosyn after blood cultures were obtained. Patient is doing significantly better and our plan will be admission. - Critical Care Time Critical care time (excluding procedures): 30-74 minutes, Discussing w/Patient &/or Family/Strand Gal[employer]izer, Discussing w/Consultants - 35 min, Arranging Admission or Transfer, Performing Direct Patient Care at Bedside ED Disposition - Plan for ED Patient: Disposition: Acute Care Hospital [facility] Diagnosis: Pneumonia, Pleural effusion, left, Respiratory failure, COPD (chronic obstructive pulmonary disease), Anxiety
[2019-11-11 03:58] LABS: ALB/GLOB Ratio 0.8 RATIO (0.9-2.4); AST(SGOT) 18 U/L (15-37); Alanine Aminotransfer ALT/SGPT 20 U/L (13-56); Albumin, Serum 3.3 g/dL (3.2-5.0); Alkaline Phosphatase 108 U/L (45-117); Anion Gap 4 (5-15); BUN 15 mg/dL (7-18); BUN/Creat Ratio 20.8 RATIO (10-20); Chloride 101 mmol/L (98-107); Creatinine, Serum 0.72 mg/dL (0.55-1.02); EST Glomerular Filtration Rate 84 mL/min (>60); Est Glom Filt Rate - Afr Amer 101 mL/min (>60); Estimated Creatinine Clearance 47.27 ml/min; Glucose 105 mg/dL (74-106); Potassium 3.7 mmol/L (3.5-5.1); Protein, Total 7.3 g/dL (6.4-8.2); Sodium Level 138 mmol/L (136-145)
[2019-11-11] MEDS: Ipratropium/Albuterol Sulfate 3 ML AMPUL.NEB INHALATION ×3 (04:11→22:55)
--- NOTE | 2019-11-11 04:21 | CT_ITS ---
HISTORY: Chest pain. Shortness of breath. ADDITIONAL HISTORY: None provided. TECHNIQUE: CT angiogram images of the chest were obtained with 100 mL Isovue 370 IV contrast as per pulmonary angiogram protocol. 3D MIP images used to aid in evaluation for pulmonary embolism. Number of images including paperwork: 1160 A radiation dose optimization technique was used for this scan. COMPARISON: 08/22/2019 FINDINGS: PULMONARY ARTERIES: No pulmonary arterial filling defects. AORTA AND GREAT VESSELS: No dissection. Mild atherosclerotic calcification. Vascular tortuosity. No aneurysm. HEART/PERICARDIUM: Stable heart size. Coronary calcifications. MEDIASTINUM: Unremarkable. ADENOPATHY: Borderline mediastinal nodes have increased in size compared to previous, possibly reactive. THYROID: Unremarkable visualized portions. LUNG PARENCHYMA: Hypoventilatory changes. Peribronchial thickening. Left upper lobe and right lower lobe opacities with some volume loss, increased. PLEURAL SPACES: Small left pleural effusion. UPPER ABDOMEN: Unremarkable. OSSEOUS AND SOFT TISSUE STRUCTURES: No acute skeletal findings. Compression deformity at T12 is severe loss of height. Superior endplate loss of height as LT also appears similar. Degenerative changes. CT/CTA Chest W/WO Contrast IMPRESSION: 1. Left upper lobe and left lower lobe opacities concerning for pneumonia. Atelectasis may also be present. 2. Small left pleural effusion. Individualized dose optimization techniques were used for this CT. at 0532 Reported and signed by: Diana Pike MD Electronically Signed: Diana Pike MD at 5:32 EDT Tel , Service support ,
[2019-11-11] MEDS: LORazepam 2 MG/ML Syringe 0.5 MG IV (04:27)
[2019-11-11 04:34] LABS: Lactic Acid 0.9 mmol/L (0.4-1.9)
--- NOTE | 2019-11-11 05:45 | ED.RN ---
THE AVENUE WAS UPDATED THAT THE PATIENT IS GOING TO BE ADMITTED
--- NOTE | 2019-11-11 05:50 | HP.PCM_ITS ---
Problem List (1) Sepsis Status: Acute (2) Pneumonia Status: Acute (3) Back pain Status: Chronic Qualifiers: Back pain location: low back pain Chronicity: chronic Back pain late rality: unspecified Sciatica presence: unspecified whether sciatica present Qualified Code(s): M54.5 - Low back pain; G89.29 - Other chronic pain (4) Compression fracture Status: Chronic (5) Other intervertebral disc degeneration, lumbar region Status: Chronic (6) Spinal stenosis, lumbar region with neurogenic claudication Status: Chronic (7) Spondylosis without myelopathy or radiculopathy, lumbar region Status: Chronic (8) Lumbago with sciatica, right side Status: Chronic Qualifiers: Chronicity: chronic Back pain laterality: right Qualified Code(s): M54.41 - Lumbago with sciatica, right side; G89.29 - Other chronic pain (9) Inflammation of right sacroiliac joint Status: Inactive (10) Generalized muscle ache Status: Inactive (11) Unspecified abnormalities of gait and mobility Status: Chronic (12) Compression fracture of thoracic vertebra with routine healing Status: Chronic Qualifiers: Thoracic vertebra fracture level: T11 (13) Encephalopathy acute Status: Inactive (14) Elevated troponin Status: Inactive (15) Digoxin toxicity Status: Inactive Qualifiers: Encounter type: initial encounter (16) HEIDI (acute kidney injury) Status: Inactive (17) Abnormal EKG Status: Inactive (18) Pleural effusion, left Status: Acute (19) Respiratory failure Status: Inactive (20) Anxiety Status: Acute (21) Lethargy Status: Inactive (22) ANKUSH (obstructive sleep apnea) Status: Chronic (23) Diastolic dysfunction Status: Chronic (24) Chronic hypoxemic respiratory failure Status: Chronic (25) Chronic anticoagulation Status: Chronic (26) Former tobacco use Status: Chronic (27) Depression Status: Chronic Qualifiers: Depression Type: unspecified Qualified Code(s): F32.9 - Major depressive disorder, single episode, unspecified (28) Pulmonary hypertension Status: Chronic (29) History of recurrent deep vein thrombosis (DVT) Status: Chronic (30) History of pulmonary embolism Status: Chronic (31) History of cardioversion Status: Chronic Comment: January of 2018.....HR not controlled with exertion while in AF on Beta donna and cardizem. Converted to NSR with cardioversion (32) Paroxysmal atrial fibrillation Status: Chronic Comment: DCCV on 01/31/2018; (33) HTN (hypertension) Status: Chronic Qualifiers: Hypertension type: essential hypertension (34) Iron deficiency anemia Status: Chronic Qualifiers: Iron deficiency anemia type: unspecified iron deficiency Qualified Code(s): D50.9 - Iron deficiency anemia, unspecified (35) Chronic diastolic CHF (congestive heart failure) Status: Chronic (36) Atrial fibrillation with RVR Status: Chronic (37) Leukocytosis Status: Inactive Qualifiers: Leukocytosis type: unspecified Qualified Code(s): D72.829 - Elevated white blood cell count, unspecified (38) Dyslipidemia Status: Chronic (39) COPD (chronic obstructive pulmonary disease) Status: Chronic Qualifiers: COPD type: unspecified COPD Qualified Code(s): J44.9 - Chronic obstructive pulmonary disease, unspecified History of Present Illness Date of Admission: 11/11/19 Chief Complaint: sob The patient is a 73 year old F with a significant history of COPD on chronic 3 L of nasal cannula oxygen and BiPAP at night; paroxysmal A. fib and hypertension who presents at the emergency department with shortness of breath that started few hours before presentation. Associated with her symptoms is chest pain. Patient lives at a jail site of [facility]. Because her symptoms was thought of to be due anxiety she was given Tylenol and Ativan. At emergency department patient was also given Ativan. On 3 L nasal cannula her oxygen saturation was in the mid 90s. Because at night she uses a BiPAP and because emergency department doctor felt that BiPAP would give her some therapeutic benefit she was placed on BiPAP at emergency department. Her chest pain was initially 10 out of 10 improved to 7 out of 10; and to 5 out of 10 while at the emergency department. Respiratory rates and heart rate was elevated at the emergency department. Chest x-ray showed small left pleural effusion with associated atelectasis versus infiltrate. CTA showed left lung infiltrates. Patient was started on vancomycin and Zosyn at emergency department. She was given breathing treatment and steroids. Past Medical History Past Medical History (Chronic Problems): Chronic Problems (Last Reviewed 11/11/19 @ 07:[address] Paulo Mota MD) Back pain (Chronic) Compression fracture (Chronic) Other intervertebral disc degeneration, lumbar region (Chronic) Spinal stenosis, lumbar region with neurogenic claudication (Chronic) Spondylosis without myelopathy or radiculopathy, lumbar region (Chronic) Lumbago with sciatica, right side (Chronic) Unspecified abnormalities of gait and mobility (Chronic) Compression fracture of thoracic vertebra with routine healing (Chronic) ANKUSH (obstructive sleep apnea) (Chronic) Diastolic dysfunction (Chronic) Chronic hypoxemic respiratory failure (Chronic) Chronic anticoagulation (Chronic) Former tobacco use (Chronic) Depression (Chronic) Pulmonary hypertension (Chronic) History of recurrent deep vein thrombosis (DVT) (Chronic) History of pulmonary embolism (Chronic) History of cardioversion (Chronic) January of 2018.....HR not controlled with exertion while in AF on Beta donna and cardizem. Converted to NSR with cardioversion Paroxysmal atrial fibrillation (Chronic) DCCV on 01/31/2018; HTN (hypertension) (Chronic) Iron deficiency anemia (Chronic) Chronic diastolic CHF (congestive heart failure) (Chronic) Atrial fibrillation with RVR (Chronic) Dyslipidemia (Chronic) COPD (chronic obstructive pulmonary disease) (Chronic) Medical History: Medical History (Last Reviewed 11/11/19 @ 07:[address] Paulo Mota MD) Dyslipidemia (Chronic) E78.5 COPD (chronic obstructive pulmonary disease) (Chronic) J44.9 Atrial fibrillation I48.91 Heart failure with preserved ejection fraction I50.30 Group 2. EF 65% 12/05/17 Essential hypertension I10 History of DVT (deep vein thrombosis) Z86.718 History of pulmonary embolus (PE) Z86.711 Pulmonary HTN I27.20 Venous insufficiency I87.2 Allergies amlodipine besylate [From [facility]] Adverse Reaction (Verified 10/23/19 14:49) ANKLE AND LEG EDEMA RESOLVED OFF MED-PER PCP PAPERWORK codeine Adverse Reaction (Verified 10/23/19 14:49) MENTAL STATUS CHANGE lisinopril Adverse Reaction (Verified 10/23/19 14:49) COUGH Home Medications: Ambulatory Orders Medication Instructions Recorded Ergocalciferol [Vitamin D] 50,000 unit PO TH 07/19/15 Citalopram Hydrobromide 40 mg PO DAILY 05/23/18 [Citalopram HBr] Budesonide 2 ml IH BID 01/17/19 Omeprazole 20 mg PO DAILY 01/17/19 Sucralfate [Carafate] 1 gm PO Q6H PRN PRN 01/17/19 Vit A/Vit C/Vit E/Zinc/Copper 1 ea PO BID 01/17/19 [Preservision Areds Tablet] Buspirone HCl 7.5 mg PO QHS 05/07/19 Cyanocobalamin (Vitamin B-12) 500 mcg PO DAILY@0800 07/12/19 [Vitamin B-12] Polyethylene Glycol 3350 17 gm PO DAILY 07/12/19 Potassium Chloride 20 meq PO DAILY #0 08/10/19 Bisacodyl [Gentle Laxative] 10 mg ND DAILY PRN PRN 08/22/19 Diltiazem CD [Cardizem CD] 120 mg PO Q12 08/22/19 Lactobacillus Acidophilus 1 ea PO DAILY 08/22/19 [Acidophilus] Sennosides/Docusate Sodium [Senna 2 tab PO QHS 08/22/19 Plus 8.6-50 mg Tablet] traMADol [Ultram] 50 mg PO TID 08/22/19 Acetaminophen [Tylenol Tablet] 650 mg PO Q6H PRN PRN tab 08/24/19 Methocarbamol [Robaxin] 500 mg PO TID PRN #42 tab 08/24/19 gabapentin 100 mg capsule 100 mg PO QHS 08/28/19 Lidocaine [Lidocaine Pain Relief] 1 ea TOPICAL DAILY 09/04/19 Ondansetron HCl [Zofran] 4 mg PO Q6H PRN 09/04/19 Furosemide [Lasix] 40 mg PO DAILY #30 09/09/19 warfarin 3 mg tablet 3 mg PO SUTUFR tab 10/24/19 Warfarin [Coumadin (PBKC)] 4 mg PO MOWETHSA 11/11/19 Surgical History: Surgical History (Last Reviewed 11/11/19 @ 07:[address] Paulo Mota MD) History of cholecystectomy Z90.49 History of total hysterectomy Z90.710 tailbone surgery Surgical History: cholecystectomy, hysterectomy, - - tailbone surgery. 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 Paulo Mota MD) Sister Heart disease History Items: - - Patient notes a maternal history of dementia and stroke. Paternal Family History: Family History (Last Reviewed 11/11/19 @ 07:[address] Paulo Mota MD) Sister Heart disease History Items: - Sibling Family History: Family History (Last Reviewed 11/11/19 @ 07:[address] Paulo Mota MD) Sister Heart disease History Items: - - Patient notes a sibling specifically her sister with Parkinson's disease and heart disease as well as a brother with Parkinson's disease, asthma and history of blood clots. Review of Systems Constitutional: Denies: Chills, Fever, Weight Change HEENT: Denies: Head Aches, Sinus Congestion, Sinus Drainage Cardiovascular: Reports: Chest Pain. Denies: Palpitations Respiratory: Reports: Shortness of Breath. Denies: Cough Gastrointestinal: Denies: Abdominal Pain, Nausea, Vomiting Genitourinary: Denies: Dysuria Musculoskeletal: Denies: Joint Pain, Joint Tenderness Skin: Denies: Rash, Wounds Neurological: Denies: Numbness, Tingling, Focal weakness Psychiatric: Reports: Anxiety. Denies: Depression, Homicidal Ideations, Suicidal Ideations Hematologic/ Lymphatic: Denies: Easy Bruising, Easy Bleeding VTE Information - Inpt Only VTE Present on Admission: No VTE Mechan Device Prophylaxis: None VTE Pharm Prophylaxis ordered?: No Reason prophylaxis not ordered:: Treatment Not Indicated - On Coumadin for A. fib. Coumadin continued. Patient Problems: Active and Suspected Problems (Last Reviewed 11/11/19 @ 07:[address] Paulo Mota MD) Pneumonia (Acute) Pleural effusion, left (Acute) Anxiety (Acute) Sepsis (Acute) - Physical Exam Vitals/I&O's: Vital Signs Temp Pulse Resp BP Pulse Ox 98.3 F 84 19 H 109/59 L 95 11/11/19 05:00 11/11/19 05:00 11/11/19 05:00 11/11/19 05:00 11/11/19 05:00 Oxygen Flow Rate (L/min) 3 Oxygen Delivery Method Bi-pap Weight: 84.4 kg Body Mass Index (BMI) 29.1 Finger Stick Blood Glucose 166 General: Alert, Oriented x3, Cooperative HEENT: Atraumatic, PERRLA, EOMI, Normocephalic Neck: Supple, No JVD, Negative Carotid Bruits Lungs: Diminished, Tachypneic Cardiovascular: Normal S1, Normal S2, No murmurs, Irregular Rate, Tachycardic Abdomen: Bowel Sounds Present, Soft, Non Tender Extremities: Capillary Refill Less than 3 Seconds, Edema, Tenderness Skin: No rashes, No breakdown Musculoskeletal: No Tenderness to Palpation of Joints or Extremities Neurological: Cranial nerves II-XII grossly intact Psych/Mental Status: Anxious Laboratory Results 11/11/19 03:22: WBC 10.5, RBC 4.12 L, Hgb 11.5 L, Hct 37.8, MCV 91.7, MCH 27.9, MCHC 30.4 L, RDW Std Deviation 51.5 H, RDW Coeff of Laura 15.2 H, Plt Count 260, MPV 12.2 H, Immature Gran % (Auto) 0.400, Neut % (Auto) 74.3 H, Lymph % (Auto) 15.5 L, Kay % (Auto) 7.7, Eos % (Auto) 1.6, Baso % (Auto) 0.5, Absolute Neuts (auto) 7.8 H, Absolute Lymphs (auto) 1.62, Nucleated RBC % 0 11/11/19 03:22: B-Natriuretic Peptide 307.0 H 11/11/19 03:22: PT 14.2, INR 1.2, APTT 29.9 11/11/19 03:22: Sodium 138, Potassium 3.7, Chloride 101, Carbon Dioxide 33.0 H, Anion Gap 4 L, BUN 15, Creatinine 0.72, Estim Creat Clear Calc 47.27, Est GFR (MDRD) Af Amer 101, Est GFR (MDRD) Non-Af 84, BUN/Creatinine Ratio 20.8 H, Glucose 105, Calcium 9.0, Total Bilirubin 0.70, AST 18, ALT 20, Alkaline Phosphatase 108, Troponin I < 0.015, Total Protein 7.3, Albumin 3.3, Globulin 4.0, Albumin/Globulin Ratio 0.8 L 11/11/19 03:40: Lactic Acid 0.9 Current Medications Vancomycin HCl 1,360 mg/ (Dextrose) 277.2 mls @ 250 mls/hr IV X1 ONE Stop: 11/11/19 06:36 Piperacillin Sod/Tazobactam (Sod 3.375 gm/ Sodium Chloride) 50 mls @ 100 mls/hr IV X1 ONE Stop: 11/11/19 06:06 Assessment/Plan All Active Problems (Last Reviewed 11/11/19 @ 07:[address] Paulo Mota MD) Pneumonia (Acute) Pleural effusion, left (Acute) Anxiety (Acute) Sepsis (Acute) The patient is a 73 year old F with a significant history of COPD on chronic 3 L of nasal cannula oxygen and BiPAP at night; paroxysmal A. fib and hypertension who presents emergency department with shortness of breath chest pain and found to tachycardia; tachypnea and CTA evidence of pulmonary infiltrate consistent with sepsis secondary to pneumonia. Sepsis secondary to pneumonia Heart rates more than 90; respiratory rate more than 20. Was given Vancomycin and Zosyn at emergency department. Continue vancomycin and Zosyn. Check strep pneumonia antigen and Legionella urine antigen. Check MRSA nasal screen. COVID screen was obtained at emergency department. Follow results. Get ferritin, triglyceride and CRP. Trend cardiac enzymes. Probable COPD Breathing treatment and steroids. Check ABG. BiPAP at night. A. fib INR was subtherapeutic. Give 6mg Coumadin Trend INR. Dose Coumadin daily DVT prophylaxis Coumadin Inpatient E&M: 39428 Init Hosp L3
--- NOTE | 2019-11-11 05:54 | ED.RN ---
DAUGHTER NOTIFIED OF ADMISSION. VERBALIZES UNDERSTANDING
[2019-11-11] MEDS: MethylPREDNISolone 125 MG/2 ML Vial IV (06:18)
--- NOTE | 2019-11-11 06:49 | EKG12_ITS ---
Test Reason : CP ADMISSION Blood Pressure : / mmHG Vent. Rate : 079 BPM Atrial Rate : 068 BPM P-R Int : 000 ms QRS Dur : 076 ms QT Int : 422 ms P-R-T Axes : 000 038 035 degrees QTc Int : 483 ms Atrial fibrillation Low voltage QRS Abnormal ECG Confirmed by MADISON BHAT, URSULA ([id number]), editorial specialist BANG URBINA ([id number]) on 11/12/2019 9:41:55 AM Referred By: SAM Confirmed By:URSULA WALLACE MD
[2019-11-11 08:01] LABS: VBG BASE EXCESS 13 mmol/L (-1.0-3.5); VBG Bicarbonate 37 mmol/L (22-26); VBG Oxygen Content 39 mmol/L (23-33); VBG PO2 27 mmHg (25-40); VBG SO2 54 % (50-70); VBG pCO2 52.2 mmHg (41-51); VBG pH 7.46 (7.32-7.42)
[2019-11-11 08:03] LABS: CRP 8.43 mg/L (0.0-3.0); Ferritin 29 ng/mL (8-252); Triglycerides 70 mg/dL
--- NOTE | 2019-11-11 08:20 | CPS ---
VENOUS ABG OBTAINED CRITICAL PA02 VALUE, DR. ALMAZAN NOTIFIED
--- NOTE | 2019-11-11 08:31 | PCM.RX.CS ---
Consult Pharmacy has been consulted to manage selected antiobiotic: Vancomycin Type of Consult: New start Suspected Infection: Sepsis, Pneumonia Prior Doses of Antibiotics Received/Current Regimen: ED VANCOMYCIN 1250MG IV GIVEN 11/10 @ 0705 Labs: Sodium 138 mmol/L (136-145) 11/11/19 03:22 Potassium 3.7 mmol/L (3.5-5.1) 11/11/19 03:22 Chloride 101 mmol/L (98-107) 11/11/19 03:22 Carbon Dioxide 33.0 mmol/L (21.0-32.0) H 11/11/19 03:22 Anion Gap 4 (5-15) L 11/11/19 03:22 BUN 15 mg/dL (7-18) 11/11/19 03:22 Creatinine 0.72 mg/dL (0.55-1.02) 11/11/19 03:22 Est GFR (MDRD) Af Amer 101 mL/min (>60) 11/11/19 03:22 Est GFR (MDRD) Non-Af 84 mL/min (>60) 11/11/19 03:22 BUN/Creatinine Ratio 20.8 RATIO (10-20) H 11/11/19 03:22 Glucose 105 mg/dL (74-106) 11/11/19 03:22 Estimated Creatinine Clearance: 65 Goal Trough: 15-20 mcg/mL Pharmacy Plan for Drug Dosin. First dose given in ED 2. Will start 1000mg Q12H starting @ 1900 3. Trough scheduled prior to 4th dose 4. Pharmacy Service will continue to monitor and adjust dosing as required. Labs to be done on [date and time ordered]: 11/12/19 @ 1839
[2019-11-11 10:00] LABS: Blood Gas Specimen Type VEN; SITE R RADIAL
[2019-11-11 10:01] LABS: Time Given 740
[2019-11-11 10:02] LABS: EPAP 5; IPAP 13; O2 Delivery Device Bi Pap
[2019-11-11] MEDS: Multivitamin (Healthy Eyes) Capsule 1 CAP PO ×2 (11:20→21:10)
[2019-11-11] MEDS: Lidocaine 5% Patch 1 PATCH TOPICAL (11:20)
[2019-11-11] MEDS: traMADol 50 MG Tablet PO ×2 (11:20→18:08)
[2019-11-11] MEDS: Furosemide 40 MG Tablet PO (11:20)
[2019-11-11] MEDS: Aspirin E.C. 81 MG Tablet PO (11:20)
[2019-11-11] MEDS: Cyanocobalamin 500 MCG Tablet PO (11:21)
[2019-11-11] MEDS: Polyethylene Glycol 3350 17 GM PACKET PO (11:21)
[2019-11-11] MEDS: Pantoprazole Sodium 20 MG Tablet PO (11:21)
[2019-11-11] MEDS: Citalopram 40 MG TABLET PO (11:22)
[2019-11-11] MEDS: dilTIAZem CD 120 MG Capsule PO ×2 (11:25→21:09)
[2019-11-11] MEDS: 0.9% Saline Lock 10 ML Syringe IV ×2 (11:35→15:21)
--- NOTE | 2019-11-11 12:07 | CASEMGMT ---
Social Work Note Pt is listed as being from [facility]. YAO placed a call to Stacy at [facility]. 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 YAO informed Stacy that pt is being tested for COVID. Stacy states she would need negative test before pt is able to return. If pt tests positive, [facility] would not be able to accept pt back until pt is negative. YAO faxed updated clinicals to [facility]. Pt is currently on Bipap, YAO placed a call to pt's daughter Irene to confirm discharge plans. Irene confirms that pt is from [facility] and will be returning there at discharge. Irene states she would like to transport back to [facility] when pt is discharged. YAO placed a call to [facility] and spoke with Chastity in Palliative. Chastity confirms that pt is active with Palliative but they have been trying to speak to pt's daughter as pt is more Hospice appropriate. Chastity states they will continue with Palliative and continue discussion of Hospice. Plan: Return to [facility] once medically cleared. Pt will need to have negative COVID test before being able to return. SW to continue to follow. Chiara Stevens LIGHTING DIRECTOR, BANQUET COORDINATOR
--- NOTE | 2019-11-11 12:41 | PN_ITS ---
Patient Problems: Active and Suspected Problems (Last Reviewed 11/11/19 @ 07:[address] Paulo Mota MD) Pneumonia (Acute) Pleural effusion, left (Acute) Anxiety (Acute) Sepsis (Acute) Reason for Visit: pneumonia Subjective: breathing better. Vitals/I&O's: Vital Signs Temp Pulse Resp BP Pulse Ox 36.7 C 84 20 H 135/86 H 97 11/11/19 11:40 11/11/19 11:40 11/11/19 11:40 11/11/19 11:40 11/11/19 11:40 Oxygen Flow Rate (L/min) 3 Oxygen Delivery Method Nasal Cannula Weight: 80.9 kg Body Mass Index (BMI) 27.9 Finger Stick Blood Glucose 166 Intake and Output for Last 24 Hours 11/09/19 11/10/19 11/11/19 23:59 23:59 23:59 Intake Total 50 / 50 Balance 50 / 50 General: Alert, No apparent distress HEENT: Atraumatic, Normocephalic Oral: Moist Mucosa, No Gingival or Mucosal Lesions/ Ulcerations Neck: No Nodes, Trachea Midline Lungs: Clear to auscultation, Diminished Cardiovascular: Regular rate, Regular Rhythm, Normal S1, Normal S2, No murmurs Abdomen: Bowel Sounds Present, Soft, Non Tender, Non-Distended, No Hepato- splenomegaly Extremities: No edema, No Calf Tenderness Skin: No rashes, No breakdown Musculoskeletal: No Tenderness to Palpation of Joints or Extremities, No Muscle Wasting Psych/Mental Status: Normal Affect, Appropriate Microbiology Past 72 Hours 11/11/19 09:55 Urine, Clean Catch Legionella Antigen - Final 11/11/19 09:55 Urine, Clean Catch Streptococcus pneumoniae Antigen (M - Final 11/11/19 07:09 Mucosa - Nasopharyngeal Respiratory Panel (PCR) - Final Laboratory Results 11/11/19 03:22: WBC 10.5, RBC 4.12 L, Hgb 11.5 L, Hct 37.8, MCV 91.7, MCH 27.9, MCHC 30.4 L, RDW Std Deviation 51.5 H, RDW Coeff of Laura 15.2 H, Plt Count 260, MPV 12.2 H, Immature Gran % (Auto) 0.400, Neut % (Auto) 74.3 H, Lymph % (Auto) 15.5 L, [place] % (Auto) 7.7, Eos % (Auto) 1.6, Baso % (Auto) 0.5, Absolute Neuts (auto) 7.8 H, Absolute Lymphs (auto) 1.62, Nucleated RBC % 0 11/11/19 03:22: B-Natriuretic Peptide 307.0 H 11/11/19 03:22: PT 14.2, INR 1.2, APTT 29.9 11/11/19 03:22: Sodium 138, Potassium 3.7, Chloride 101, Carbon Dioxide 33.0 H, Anion Gap 4 L, BUN 15, Creatinine 0.72, Estim Creat Clear Calc 47.27, Est GFR (MDRD) Af Amer 101, Est GFR (MDRD) Non-Af 84, BUN/Creatinine Ratio 20.8 H, Glucose 105, Calcium 9.0, Total Bilirubin 0.70, AST 18, ALT 20, Alkaline Phosphatase 108, Troponin I < 0.015, Total Protein 7.3, Albumin 3.3, Globulin 4.0, Albumin/Globulin Ratio 0.8 L 11/11/19 03:40: Lactic Acid 0.9 11/11/19 07:09: COVID-19 (ZOILA) Pending 11/11/19 07:25: Ferritin 29, Troponin I < 0.015, C-React Prot Ext Range 8.43 H, Triglycerides 70 11/11/19 07:40: Specimen Type AJ, Sample Site R RADIAL, VBG pH 7.46 H, VBG pO2 27, VBG O2 Sat (Calc) 54, VBG O2 Content 39 H, VBG Base Excess 13 H, POC Mix VBG pCO2 Pt Tmp 52.2 H, O2 Delivery Device Bi Pap, EPAP 5, IPAP 13, Blood Gas Notified Whom HOSP , Blood Gas Notified Time 740 11/11/19 10:12: Troponin I < 0.015 Current Medications Acetaminophen (Tylenol) 650 mg PO Q6H PRN PRN PRN Reason: Pain Score 1-10/Temp > 100.7 F Albuterol/Ipratropium (Duoneb) 3 ml INHALATION Q6H.RT [facility] Aspirin (Ecotrin) 81 mg PO DAILY@1000 [facility] Last Admin: 11/11/19 11:20 Dose: 81 mg Documented by: Bisacodyl (Dulcolax) 10 mg RECTAL DAILY PRN PRN PRN Reason: Constipation Buspirone HCl (Buspar) 7.5 mg PO QHS [facility] Citalopram Hydrobromide (Celexa) 40 mg PO DAILY [facility] Last Admin: 11/11/19 11:22 Dose: 40 mg Documented by: Cyanocobalamin (Vitamin B12) 500 mcg PO DAILY@1000 [facility] Last Admin: 11/11/19 11:21 Dose: 500 mcg Documented by: Dextrose (D50w Syringe) 0 gm IV X1 PRN; Protocol PRN Reason: Hypoglycemia Diltiazem HCl (Cardizem Cd) 120 mg PO Q12 [facility] Last Admin: 11/11/19 11:25 Dose: 120 mg Documented by: Ergocalciferol (Vitamin D) 50,000 unit PO Th@1000 [facility] Furosemide (Lasix) 40 mg PO DAILY [facility] Last Admin: 11/11/19 11:20 Dose: 40 mg Documented by: Gabapentin (Neurontin) 100 mg PO QHS [facility] Glucagon () 1 mg IM .X1 PRN PRN Reason: Hypoglycemia Piperacillin Sod/Tazobactam (Sod 3.375 gm/ Sodium Chloride) 50 mls @ 12.5 mls/hr IV Q8 [facility] Stop: 11/18/19 14:01 Vancomycin IV Pharmacy to Dose (1 ea/ Sodium Chloride) 500 mls @ 250 mls/hr IV X1 PRN; Protocol PRN Reason: Rx to Dose Sodium Chloride () 250 mls @ 15 mls/hr IV .[id number] PRN PRN Reason: Saline Flush Sodium Chloride () 250 mls @ 15 mls/hr IV .[id number] PRN PRN Reason: Additional IVPB Infusion Vancomycin HCl (Vancomycin) 1,000 mg in 200 mls @ 200 mls/hr IV Q12H [facility] Lactobacillus Acidophilus (Acidophilus) 1 tablet PO DAILY [facility] Last Admin: 11/11/19 11:22 Dose: 1 tablet Documented by: Lidocaine (Lidoderm Patch) 1 patch TOPICAL DAILY [facility] Last Admin: 11/11/19 11:20 Dose: 1 patch Documented by: Methocarbamol (Robaxin) 500 mg PO TID PRN PRN Reason: MUSCLE SPASM Methylprednisolone (Solu-Medrol) 40 mg IV 0200,1000,1800 [facility] Last Admin: 11/11/19 11:21 Dose: 40 mg Documented by: Multivitamins/Minerals (Healthy Eyes (Bkc)) 1 capsule PO BID [facility] Last Admin: 11/11/19 11:20 Dose: 1 capsule Documented by: Ondansetron HCl (Zofran) 4 mg IV Q8H PRN PRN PRN Reason: NAUSEA/VOMITING Pantoprazole Sodium (Protonix) 20 mg PO DAILY [facility] Last Admin: 11/11/19 11:21 Dose: 20 mg Documented by: Polyethylene Glycol (Miralax) 17 gm PO DAILY [facility] Last Admin: 11/11/19 11:21 Dose: 17 gm Documented by: Potassium Chloride (K-Dur) 20 meq PO DAILY [facility] Last Admin: 11/11/19 11:20 Dose: 20 meq Documented by: Senna/Docusate Sodium (Senokot-S, Caterina-Colace) 2 tablet PO QHS [facility] Sodium Chloride () 10 - 40 ml IV UD PRN PRN Reason: SALINE FLUSH Last Admin: 11/11/19 11:35 Dose: 10 ml Documented by: Sucralfate (Carafate) 1 gm PO Q6H PRN PRN PRN Reason: GI UPSET Tramadol HCl (Ultram) 50 mg PO TIDCM [facility] Last Admin: 11/11/19 11:20 Dose: 50 mg Documented by: STROKE Vital Signs/Narrative: Vital Signs Temp Pulse Resp BP Pulse Ox 11/11/19 11:40 36.7 C 84 20 H 135/86 H 97 11/11/19 09:10 81 17 95 Medical Necessity - Tobacco Use Smoking Status: Never smoker Assessment/Plan All Active Problems (Last Reviewed 11/11/19 @ 07:[address] Paulo Mota MD) Pneumonia (Acute) Pleural effusion, left (Acute) Anxiety (Acute) Sepsis (Acute) 1. sepsis * 2/2 pneumonia * strep and legionella antigens, respiratory panel negative * blood cultures pending 2. pneumonia * on pip tazo and vanc * pulm toilet 3. Acute COPD exacerbation * BDs * methylprednisolone 4. Afib * on dilt * on warfarin 5. VTE prophylaxis: enoxaparin until INR therapeutic Procedures: Other Procedure - See Report - non billable rounding
[2019-11-11 17:41] LABS: M R Staph aureus DNA By PCR Negative (Negative); Probe Check PASS; Specimen Processing Control PASS
[2019-11-11] MEDS: Ondansetron 4 MG/2 ML Vial IV (18:19)
[2019-11-11] MEDS: Vancomycin IV 1,000 MG/200 ML BAG 200 MG IV (19:47)
[2019-11-11] MEDS: Bisacodyl 10 MG Suppository RECTAL (19:56)
[2019-11-11] MEDS: busPIRone 15 MG TABLET 7.5 MG PO (21:09)
[2019-11-11] MEDS: Senna/Docusate Sodium 1 Tablet 2 TABLET PO (21:09)
[2019-11-11] MEDS: Gabapentin 100 MG Capsule PO (21:10)
[2019-11-12] VITALS (20 sets, daily range): BP systolic 104–124; BP diastolic 55–89; PULSE 83–155; RESP 12–24; TEMP 36.1–37; O2SAT 96–98
[2019-11-12] MEDS: 0.9% Saline Lock 10 ML Syringe IV ×2 (00:02→10:01)
[2019-11-12] MEDS: Acetaminophen 325 MG Tablet 650 MG PO ×3 (02:57→20:46)
[2019-11-12] MEDS: Enoxaparin 40 MG/0.4 ML Syringe SC (06:01)
[2019-11-12] MEDS: Vancomycin IV 1,000 MG/200 ML BAG 200 MG IV ×2 (06:01→18:59)
[2019-11-12] MEDS: Ipratropium/Albuterol Sulfate 3 ML AMPUL.NEB INHALATION ×5 (06:47→23:20)
[2019-11-12 07:34] LABS: Absolute Lymphocyte Count 0.64 X10^3/uL (0.83-4.51); Absolute Neutrophil Count 6.2 X10^3/uL (2.0-7.7); Hematocrit 34.6 % (37-47); Hemoglobin 10.4 g/dL (12.0-15.0); Lymphocyte # 0.64 X10^3/ul (4.0); Lymphocyte % 9.2 % (19-41); Mean Corp Hgb Conc 30.1 g/dL (32-36); Mean Corpuscular Hgb 27.7 pg (27.0-32.0); Mean Platelet Vol. 12.2 fl (6.2-12.0); Monocyte# 0.09 X10^3/uL; Monocyte% 1.3 % (0-10); NRBC Flagged by Analyzer 0 % (0-5); Neutrophil # 6.19 X10^3/uL (2.7-7.7); Neutrophil % 89.1 % (47-70); POSITIVE MORPHOLOGY YES; Platelet Count 218 K/mm3 (150-450); RBC Distribution Width CV 14.9 % (11.6-14.6); RBC Distribution Width SD 50.3 fl (35.1-43.9); Red Blood Count 3.76 M/mm3 (4.2-5.4)
[2019-11-12 07:36] LABS: Differential Indicated SCAN CRITERIA MET
[2019-11-12 07:43] LABS: International Normalized Ratio 1.6; Prothrombin Time (Protime)PT. 18.3 SECONDS (11.7-14.9)
[2019-11-12] MEDS: traMADol 50 MG Tablet PO ×2 (07:53→17:30)
[2019-11-12 08:08] LABS: Differential Comment SCANNED; Toxic Granulation RARE
[2019-11-12 08:10] LABS: Anion Gap 1 (5-15); BUN 18 mg/dL (7-18); BUN/Creat Ratio 28.4 RATIO (10-20); Calcium,Total 8.8 mg/dL (8.5-10.1); Chloride 104 mmol/L (98-107); Creatinine, Serum 0.63 mg/dL (0.55-1.02); EST Glomerular Filtration Rate 97 mL/min (>60); Est Glom Filt Rate - Afr Amer 118 mL/min (>60); Estimated Creatinine Clearance 47.27 ml/min; Glucose 169 mg/dL (74-106); Potassium 4.1 mmol/L (3.5-5.1); Sodium Level 140 mmol/L (136-145)
[2019-11-12] MEDS: Cyanocobalamin 500 MCG Tablet PO (09:55)
[2019-11-12] MEDS: Citalopram 40 MG TABLET PO (09:55)
[2019-11-12] MEDS: Aspirin E.C. 81 MG Tablet PO (09:55)
[2019-11-12] MEDS: Pantoprazole Sodium 20 MG Tablet PO (09:55)
[2019-11-12] MEDS: Multivitamin (Healthy Eyes) Capsule 1 CAP PO ×2 (09:55→20:32)
[2019-11-12] MEDS: Furosemide 40 MG Tablet PO (09:55)
[2019-11-12] MEDS: dilTIAZem CD 120 MG Capsule PO ×2 (09:55→18:59)
[2019-11-12] MEDS: Polyethylene Glycol 3350 17 GM PACKET PO (09:59)
[2019-11-12] MEDS: Lidocaine 5% Patch 1 PATCH TOPICAL (10:04)
--- NOTE | 2019-11-12 12:39 | CASEMGMT ---
Addendum entered by Chiara Stevens 11/12/19 13:58: YAO faxed updated clinicals to [facility]. Original Note: Social Work Note SW reviewed chart, pt's COVID test is still pending. YAO placed a call to Stacy at [facility] and updated her that pt's COVID test is still pending. SW to continue to follow. Plan: Return to [facility] once medically cleared. Pt will negative COVID test. Chiara Stevens LATHE OPERATOR CONTACT LENS, LITIGATION PARALEGAL
--- NOTE | 2019-11-12 13:35 | PN_ITS ---
Patient Problems: Active and Suspected Problems (Last Reviewed 11/11/19 @ 07:[address] Paulo Mota MD) Pneumonia (Acute) Pleural effusion, left (Acute) Anxiety (Acute) Sepsis (Acute) Reason for Visit: pneumonia Subjective: + BM. Breathing better. Vitals/I&O's: Vital Signs Temp Pulse Resp BP Pulse Ox 36.6 C 85 18 104/66 98 11/12/19 09:00 11/12/19 11:43 11/12/19 11:43 11/12/19 09:00 11/12/19 09:00 Oxygen Flow Rate (L/min) 3 Oxygen Delivery Method Nasal Cannula Weight: 80.9 kg Body Mass Index (BMI) 27.9 Finger Stick Blood Glucose 166 Intake and Output for Last 24 Hours 11/10/19 11/11/19 11/12/19 23:59 23:59 23:59 Intake Total 1195 / 1195 540 / 540 Output Total 600 / 600 450 / 450 Balance 595 / 595 90 / 90 General: Alert, No apparent distress HEENT: Atraumatic, Normocephalic Oral: Moist Mucosa, No Gingival or Mucosal Lesions/ Ulcerations Neck: No Nodes, Trachea Midline Lungs: Clear to auscultation, No rhonchi, No wheeze, No rales, Diminished Cardiovascular: Regular rate, Regular Rhythm, Normal S1, Normal S2, No murmurs Abdomen: Bowel Sounds Present, Soft, Non Tender, Non-Distended, No Hepato- splenomegaly Extremities: No edema, No Calf Tenderness Skin: No rashes, No breakdown Psych/Mental Status: Normal Affect, Appropriate Microbiology Past 72 Hours 11/11/19 09:55 Urine, Clean Catch Legionella Antigen - Final 11/11/19 09:55 Urine, Clean Catch Streptococcus pneumoniae Antigen (M - Final 11/11/19 07:09 Mucosa - Nasopharyngeal Respiratory Panel (PCR) - Final Laboratory Results 11/11/19 07:09: COVID-19 (ZOILA) Pending 11/11/19 11:20: MRSA (PCR) Negative 11/12/19 07:25: WBC 7.0, RBC 3.76 L, Hgb 10.4 L, Hct 34.6 L, MCV 92.0, MCH 27.7, MCHC 30.1 L, RDW Std Deviation 50.3 H, RDW Coeff of Laura 14.9 H, Plt Count 218, MPV 12.2 H, Immature Gran % (Auto) 0.400, Neut % (Auto) 89.1 H, Lymph % (Auto) 9.2 L, [place] % (Auto) 1.3, Eos % (Auto) 0.0, Baso % (Auto) 0.0, Absolute Neuts (auto) 6.2, Absolute Lymphs (auto) 0.64 L, Nucleated RBC % 0, Differential Comment SCANNED, Toxic Granulation RARE 11/12/19 07:25: PT 18.3 H, INR 1.6 11/12/19 07:25: Sodium 140, Potassium 4.1, Chloride 104, Carbon Dioxide 35.0 H, Anion Gap 1 L, BUN 18, Creatinine 0.63, Estim Creat Clear Calc 47.27, Est GFR (MDRD) Af Amer 118, Est GFR (MDRD) Non-Af 97, BUN/Creatinine Ratio 28.4 H, Glucose 169 H, Calcium 8.8 Current Medications Acetaminophen (Tylenol) 650 mg PO Q6H PRN PRN PRN Reason: Pain Score 1-10/Temp > 100.7 F Last Admin: 11/12/19 11:56 Dose: 650 mg Documented by: Albuterol/Ipratropium (Duoneb) 3 ml INHALATION Q4H.RT [facility] Last Admin: 11/12/19 11:43 Dose: 3 ml Documented by: Aspirin (Ecotrin) 81 mg PO DAILY@1000 [facility] Last Admin: 11/12/19 09:55 Dose: 81 mg Documented by: Bisacodyl (Dulcolax) 10 mg RECTAL DAILY PRN PRN PRN Reason: Constipation Last Admin: 11/11/19 19:56 Dose: 10 mg Documented by: Buspirone HCl (Buspar) 7.5 mg PO QHS [facility] Last Admin: 11/11/19 21:09 Dose: 7.5 mg Documented by: Citalopram Hydrobromide (Celexa) 40 mg PO DAILY [facility] Last Admin: 11/12/19 09:55 Dose: 40 mg Documented by: Cyanocobalamin (Vitamin B12) 500 mcg PO DAILY@1000 [facility] Last Admin: 11/12/19 09:55 Dose: 500 mcg Documented by: Dextrose (D50w Syringe) 0 gm IV X1 PRN; Protocol PRN Reason: Hypoglycemia Diltiazem HCl (Cardizem Cd) 120 mg PO Q12 [facility] Last Admin: 11/12/19 09:55 Dose: 120 mg Documented by: Enoxaparin Sodium (Lovenox) 40 mg SC DAILY@0600 [facility] Last Admin: 11/12/19 06:01 Dose: 40 mg Documented by: Ergocalciferol (Vitamin D) 50,000 unit PO Th@1000 [facility] Furosemide (Lasix) 40 mg PO DAILY [facility] Last Admin: 11/12/19 09:55 Dose: 40 mg Documented by: Gabapentin (Neurontin) 100 mg PO QHS [facility] Last Admin: 11/11/19 21:10 Dose: 100 mg Documented by: Glucagon () 1 mg IM .X1 PRN PRN Reason: Hypoglycemia Piperacillin Sod/Tazobactam (Sod 3.375 gm/ Sodium Chloride) 50 mls @ 12.5 mls/hr IV Q8 [facility] Stop: 11/18/19 14:01 Last Infusion: 11/12/19 10:08 Dose: Infused Documented by: Vancomycin IV Pharmacy to Dose (1 ea/ Sodium Chloride) 500 mls @ 250 mls/hr IV X1 PRN; Protocol PRN Reason: Rx to Dose Sodium Chloride () 250 mls @ 15 mls/hr IV .[id number] PRN PRN Reason: Saline Flush Sodium Chloride () 250 mls @ 15 mls/hr IV .[id number] PRN PRN Reason: Additional IVPB Infusion Vancomycin HCl (Vancomycin) 1,000 mg in 200 mls @ 200 mls/hr IV Q12H [facility] Last Infusion: 11/12/19 07:30 Dose: Infused Documented by: Lactobacillus Acidophilus (Acidophilus) 1 tablet PO DAILY [facility] Last Admin: 11/12/19 09:55 Dose: 1 tablet Documented by: Lidocaine (Lidoderm Patch) 1 patch TOPICAL DAILY [facility] Last Admin: 11/12/19 10:04 Dose: 1 patch Documented by: Methocarbamol (Robaxin) 500 mg PO TID PRN PRN Reason: MUSCLE SPASM Methylprednisolone (Solu-Medrol) 40 mg IV 0200,1000,1800 [facility] Last Admin: 11/12/19 10:00 Dose: 40 mg Documented by: Multivitamins/Minerals (Healthy Eyes (Bkc)) 1 capsule PO BID [facility] Last Admin: 11/12/19 09:55 Dose: 1 capsule Documented by: Ondansetron HCl (Zofran) 4 mg IV Q8H PRN PRN PRN Reason: NAUSEA/VOMITING Last Admin: 11/11/19 18:19 Dose: 4 mg Documented by: Pantoprazole Sodium (Protonix) 20 mg PO DAILY [facility] Last Admin: 11/12/19 09:55 Dose: 20 mg Documented by: Polyethylene Glycol (Miralax) 17 gm PO DAILY [facility] Last Admin: 11/12/19 09:59 Dose: 17 gm Documented by: Potassium Chloride (K-Dur) 20 meq PO DAILY [facility] Last Admin: 11/12/19 09:55 Dose: 20 meq Documented by: Senna/Docusate Sodium (Senokot-S, Caterina-Colace) 2 tablet PO QHS [facility] Last Admin: 11/11/19 21:09 Dose: 2 tablet Documented by: Sodium Chloride () 10 - 40 ml IV UD PRN PRN Reason: SALINE FLUSH Last Admin: 11/12/19 10:01 Dose: 10 ml Documented by: Sucralfate (Carafate) 1 gm PO Q6H PRN PRN PRN Reason: GI UPSET Tramadol HCl (Ultram) 50 mg PO TIDCM [facility] Last Admin: 11/12/19 11:58 Dose: Not Given Documented by: STROKE Vital Signs/Narrative: Vital Signs Pulse Resp 11/12/19 11:43 85 18 11/12/19 11:00 98 Medical Necessity - Tobacco Use Smoking Status: Never smoker Assessment/Plan All Active Problems (Last Reviewed 11/11/19 @ 07:[address] Paulo Mota MD) Pneumonia (Acute) Pleural effusion, left (Acute) Anxiety (Acute) Sepsis (Acute) 1. sepsis * 2/2 pneumonia * strep and legionella antigens, respiratory panel negative * blood cultures pending 2. pneumonia * on pip tazo and vanc * pulm toilet 3. Acute COPD exacerbation * BDs * methylprednisolone, will decrease 4. Afib * on dilt * on warfarin 5. VTE prophylaxis: enoxaparin until INR therapeutic Inpatient E&M: [id number] [facility] L2
[2019-11-12 19:55] LABS: Vancomycin, Trough Level 14.2 ug/mL (5.0-15.0)
--- NOTE | 2019-11-12 20:15 | PCM.RX.CS ---
Consult Pharmacy has been consulted to manage selected antiobiotic: Vancomycin Type of Consult: Follow-up Suspected Infection: Pneumonia Prior Doses of Antibiotics Received/Current Regimen: On 1gm iv q12h. Labs: Sodium 140 mmol/L (136-145) 11/12/19 07:25 Potassium 4.1 mmol/L (3.5-5.1) 11/12/19 07:25 Chloride 104 mmol/L (98-107) 11/12/19 07:25 Carbon Dioxide 35.0 mmol/L (21.0-32.0) H 11/12/19 07:25 Anion Gap 1 (5-15) L 11/12/19 07:25 BUN 18 mg/dL (7-18) 11/12/19 07:25 Creatinine 0.63 mg/dL (0.55-1.02) 11/12/19 07:25 Est GFR (MDRD) Af Amer 118 mL/min (>60) 11/12/19 07:25 Est GFR (MDRD) Non-Af 97 mL/min (>60) 11/12/19 07:25 BUN/Creatinine Ratio 28.4 RATIO (10-20) H 11/12/19 07:25 Glucose 169 mg/dL (74-106) H 11/12/19 07:25 Vancomycin Trough 14.2 ug/mL (5.0-15.0) 11/12/19 18:55 Microbiology: Microbiology 11/11/19 09:55 Urine, Clean Catch Legionella Antigen - Final 11/11/19 09:55 Urine, Clean Catch Streptococcus pneumoniae Antigen (M - Final 11/11/19 07:09 Mucosa - Nasopharyngeal Respiratory Panel (PCR) - Final Weight used for dosin.9 kg Estimated Creatinine Clearance: ~84ml/min Goal Trough: 15-20 mcg/mL Pharmacy Plan for Drug Dosing: Trough level 14.2 approx. 13 hrs post dose. Renal slightly improved. CrCl ~84ml/min using Adjusted Body Weight. Will continue same dose and order another trough level for 11.13.20. Pharmacy Service will continue to monitor and adjust dosing as required. Follow-Up Labs: Trough Vancomycin - 4.30.20 @0630 before 0700 dose
[2019-11-12] MEDS: Metoprolol Tartrate 5 MG/5 ML Vial IV ×2 (20:23)
[2019-11-12] MEDS: Gabapentin 100 MG Capsule PO (20:32)
[2019-11-12] MEDS: Senna/Docusate Sodium 1 Tablet 2 TABLET PO (20:32)
[2019-11-12] MEDS: busPIRone 15 MG TABLET 7.5 MG PO (20:32)
[2019-11-12] MEDS: MELATONIN 3 MG TABLET PO (22:45)
[2019-11-12] MEDS: dilTIAZem 25 MG/5 ML Vial 10 MG IV BOLUS (22:48)
[2019-11-13] VITALS (32 sets, daily range): BP systolic 95–130; BP diastolic 47–93; PULSE 100–156; RESP 12–25; TEMP 35.7–37.2; O2SAT 95–99
[2019-11-13] MEDS: Enoxaparin 40 MG/0.4 ML Syringe SC (06:36)
[2019-11-13] MEDS: Vancomycin IV 1,000 MG/200 ML BAG 200 MG IV (06:37)
[2019-11-13] MEDS: Metoprolol Tartrate 5 MG/5 ML Vial IV ×2 (06:43→17:07)
[2019-11-13] MEDS: Ipratropium/Albuterol Sulfate 3 ML AMPUL.NEB INHALATION ×5 (07:30→22:11)
[2019-11-13 07:34] LABS: International Normalized Ratio 2.2
[2019-11-13] MEDS: traMADol 50 MG Tablet PO ×2 (09:38→16:40)
[2019-11-13] MEDS: Multivitamin (Healthy Eyes) Capsule 1 CAP PO ×2 (09:39→21:20)
[2019-11-13] MEDS: Aspirin E.C. 81 MG Tablet PO (09:39)
[2019-11-13] MEDS: Furosemide 40 MG Tablet PO (09:39)
[2019-11-13] MEDS: Pantoprazole Sodium 20 MG Tablet PO (09:39)
[2019-11-13] MEDS: Citalopram 40 MG TABLET PO (09:39)
[2019-11-13] MEDS: dilTIAZem CD 120 MG Capsule PO ×2 (09:40→21:20)
[2019-11-13] MEDS: Cyanocobalamin 500 MCG Tablet PO (09:40)
[2019-11-13] MEDS: 0.9% Saline Lock 10 ML Syringe IV ×2 (09:45→17:07)
[2019-11-13] MEDS: Polyethylene Glycol 3350 17 GM PACKET PO (09:46)
[2019-11-13] MEDS: Lidocaine 5% Patch 1 PATCH TOPICAL (09:47)
[2019-11-13] MEDS: Acetaminophen 325 MG Tablet 650 MG PO (12:00)
--- NOTE | 2019-11-13 12:41 | NURSING ---
Report called to nurse Barbi RN for pt transfer.
--- NOTE | 2019-11-13 13:42 | CASEMGMT ---
Social Work Note Pt's COVID test is negative, transferred to PCU. SW placed a call to Stacy at [facility] and updated her that pt is COVID negative and transferred to PCU. SW faxed updated clinicals to [facility]. Plan: Return to [facility] once medically cleared Chiara Stevens ART GLASS SETTER, CLINICAL PHARMACY SPECIALIST
--- NOTE | 2019-11-13 14:21 | PN_ITS ---
Patient Problems: Active and Suspected Problems (Last Reviewed 11/11/19 @ 07:[address] Paulo Mota MD) Pneumonia (Acute) Pleural effusion, left (Acute) Anxiety (Acute) Sepsis (Acute) Reason for Visit: pneumonia Subjective: breathing better. Vitals/I&O's: Vital Signs Temp Pulse Resp BP Pulse Ox 37.2 C 139 H 24 H 98/69 95 11/13/19 13:51 11/13/19 13:51 11/13/19 13:51 11/13/19 13:51 11/13/19 13:51 Oxygen Flow Rate (L/min) 3 Oxygen Delivery Method Nasal Cannula Weight: 80.9 kg Body Mass Index (BMI) 27.9 Finger Stick Blood Glucose 166 Intake and Output for Last 24 Hours 11/11/19 11/12/19 11/13/19 23:59 23:59 23:59 Intake Total 1195 / 1195 910 / 1150 690 / 690 Output Total 600 / 600 600 / 600 800 / 800 Balance 595 / 595 310 / 550 -110 / -110 General: Alert, Cooperative, No apparent distress HEENT: Atraumatic, Normocephalic Oral: Moist Mucosa, No Gingival or Mucosal Lesions/ Ulcerations Neck: No Nodes, Trachea Midline Lungs: Clear to auscultation, Diminished Cardiovascular: Regular rate, Regular Rhythm, Normal S1, Normal S2, No murmurs Abdomen: Bowel Sounds Present, Soft, Non Tender, Non-Distended Extremities: No Calf Tenderness, Edema Psych/Mental Status: Normal Affect, Appropriate Microbiology Past 72 Hours 11/11/19 03:40 Blood Culture (Wb) #2 - Anticubital Right Blood Culture - Preliminary No growth in 48 hours. 11/11/19 03:45 Blood Culture (Wb) - Anticubital Left Blood Culture - Preliminary No growth in 48 hours. 11/11/19 09:55 Urine, Clean Catch Legionella Antigen - Final 11/11/19 09:55 Urine, Clean Catch Streptococcus pneumoniae Antigen (M - Final 11/11/19 07:09 Mucosa - Nasopharyngeal Respiratory Panel (PCR) - Final Laboratory Results 11/11/19 07:09: COVID-19 ([facility]) Not Detected 11/12/19 18:55: Vancomycin Trough 14.2 11/13/19 07:05: PT 24.0 H, INR 2.2 Current Medications Acetaminophen (Tylenol) 650 mg PO Q6H PRN PRN PRN Reason: Pain Score 1-10/Temp > 100.7 F Last Admin: 11/13/19 12:00 Dose: 650 mg Documented by: Albuterol/Ipratropium (Duoneb) 3 ml INHALATION Q4H.RT [facility] Last Admin: 11/13/19 11:10 Dose: 3 ml Documented by: Aspirin (Ecotrin) 81 mg PO DAILY@1000 [facility] Last Admin: 11/13/19 09:39 Dose: 81 mg Documented by: Bisacodyl (Dulcolax) 10 mg RECTAL DAILY PRN PRN PRN Reason: Constipation Last Admin: 11/11/19 19:56 Dose: 10 mg Documented by: Buspirone HCl (Buspar) 7.5 mg PO QHS [facility] Last Admin: 11/12/19 20:32 Dose: 7.5 mg Documented by: Citalopram Hydrobromide (Celexa) 40 mg PO DAILY [facility] Last Admin: 11/13/19 09:39 Dose: 40 mg Documented by: Cyanocobalamin (Vitamin B12) 500 mcg PO DAILY@1000 [facility] Last Admin: 11/13/19 09:40 Dose: 500 mcg Documented by: Dextrose (D50w Syringe) 0 gm IV X1 PRN; Protocol PRN Reason: Hypoglycemia Diltiazem HCl (Cardizem Cd) 120 mg PO Q12 [facility] Last Admin: 11/13/19 09:40 Dose: 120 mg Documented by: Enoxaparin Sodium (Lovenox) 40 mg SC DAILY@0600 [facility] Last Admin: 11/13/19 06:36 Dose: 40 mg Documented by: Furosemide (Lasix) 40 mg PO DAILY [facility] Last Admin: 11/13/19 09:39 Dose: 40 mg Documented by: Gabapentin (Neurontin) 100 mg PO QHS [facility] Last Admin: 11/12/19 20:32 Dose: 100 mg Documented by: Glucagon () 1 mg IM .X1 PRN PRN Reason: Hypoglycemia Piperacillin Sod/Tazobactam (Sod 3.375 gm/ Sodium Chloride) 50 mls @ 12.5 mls/hr IV Q8 [facility] Stop: 11/18/19 14:01 Last Admin: 11/13/19 13:45 Dose: 12.5 mls/hr Documented by: Vancomycin IV Pharmacy to Dose (1 ea/ Sodium Chloride) 500 mls @ 250 mls/hr IV X1 PRN; Protocol PRN Reason: Rx to Dose Sodium Chloride () 250 mls @ 15 mls/hr IV .[id number] PRN PRN Reason: Saline Flush Sodium Chloride () 250 mls @ 15 mls/hr IV .[id number] PRN PRN Reason: Additional IVPB Infusion Vancomycin HCl (Vancomycin) 1,000 mg in 200 mls @ 200 mls/hr IV Q12H [facility] Last Infusion: 11/13/19 07:44 Dose: Infused Documented by: Lactobacillus Acidophilus (Acidophilus) 1 tablet PO DAILY [facility] Last Admin: 11/13/19 09:40 Dose: 1 tablet Documented by: Lidocaine (Lidoderm Patch) 1 patch TOPICAL DAILY [facility] Last Admin: 11/13/19 09:47 Dose: 1 patch Documented by: Melatonin (Melatonin) 3 mg PO QHS [facility] Last Admin: 11/12/19 22:45 Dose: 3 mg Documented by: Methocarbamol (Robaxin) 500 mg PO TID PRN PRN Reason: MUSCLE SPASM Methylprednisolone (Solu-Medrol) 40 mg IV Q12 [facility] Last Admin: 11/13/19 09:44 Dose: 40 mg Documented by: Metoprolol Tartrate (Lopressor (Beta Madison)) 5 mg IV Q6 PRN PRN Reason: HR greater than 120 Multivitamins/Minerals (Healthy Eyes (Bkc)) 1 capsule PO BID [facility] Last Admin: 11/13/19 09:39 Dose: 1 capsule Documented by: Ondansetron HCl (Zofran) 4 mg IV Q8H PRN PRN PRN Reason: NAUSEA/VOMITING Last Admin: 11/11/19 18:19 Dose: 4 mg Documented by: Pantoprazole Sodium (Protonix) 20 mg PO DAILY [facility] Last Admin: 11/13/19 09:39 Dose: 20 mg Documented by: Polyethylene Glycol (Miralax) 17 gm PO DAILY [facility] Last Admin: 11/13/19 09:46 Dose: 17 gm Documented by: Potassium Chloride (K-Dur) 20 meq PO DAILY [facility] Last Admin: 11/13/19 09:40 Dose: 20 meq Documented by: Senna/Docusate Sodium (Senokot-S, Caterina-Colace) 2 tablet PO QHS [facility] Last Admin: 11/12/19 20:32 Dose: 2 tablet Documented by: Sodium Chloride () 10 - 40 ml IV UD PRN PRN Reason: SALINE FLUSH Last Admin: 11/13/19 09:45 Dose: 10 ml Documented by: Sucralfate (Carafate) 1 gm PO Q6H PRN PRN PRN Reason: GI UPSET Tramadol HCl (Ultram) 50 mg PO TIDCM [facility] Last Admin: 11/13/19 12:01 Dose: Not Given Documented by: STROKE Vital Signs/Narrative: Vital Signs Temp Pulse Resp BP Pulse Ox 11/13/19 13:51 37.2 C 134 H 24 H 98/69 95 11/13/19 11:10 102 H 20 H 11/13/19 11:00 116 H Medical Necessity - Tobacco Use Smoking Status: Never smoker Assessment/Plan All Active Problems (Last Reviewed 11/11/19 @ 07:[address] Paulo Mota MD) Pneumonia (Acute) Pleural effusion, left (Acute) Anxiety (Acute) Sepsis (Acute) 1. sepsis * 2/2 pneumonia * strep and legionella antigens, respiratory panel negative * blood cultures pending 2. pneumonia * possible gram negative * on pip tazo. DC vancomycin * pulm toilet 3. Acute COPD exacerbation * BDs * methylprednisolone, change to prednisone 4. Afib with RVR * continue dilt * PRN IV metoprolol. may need to consider IV dilt and gtt if persists. * on warfarin 5. VTE prophylaxis: anticoagulated. Inpatient E&M: 73768 [facility] Hosp L2
--- NOTE | 2019-11-13 15:50 | NURSING ---
This RN taking over care at this time
[2019-11-13] MEDS: MELATONIN 3 MG TABLET PO (21:20)
[2019-11-13] MEDS: Senna/Docusate Sodium 1 Tablet 2 TABLET PO (21:20)
[2019-11-13] MEDS: busPIRone 15 MG TABLET 7.5 MG PO (21:20)
[2019-11-13] MEDS: Gabapentin 100 MG Capsule PO (21:21)
[2019-11-14] VITALS (46 sets, daily range): BP systolic 92–119; BP diastolic 17–82; PULSE 77–123; RESP 12–24; TEMP 35.6–36.7; O2SAT 95–100
[2019-11-14] MEDS: Ipratropium/Albuterol Sulfate 3 ML AMPUL.NEB INHALATION ×6 (02:54→22:34)
[2019-11-14] MEDS: Acetaminophen 325 MG Tablet 650 MG PO (04:40)
[2019-11-14] MEDS: Enoxaparin 40 MG/0.4 ML Syringe SC (05:48)
[2019-11-14 06:04] LABS: International Normalized Ratio 1.3; Prothrombin Time (Protime)PT. 15.2 SECONDS (11.7-14.9)
--- NOTE | 2019-11-14 08:15 | PN_ITS ---
Patient Problems: Active and Suspected Problems (Last Reviewed 11/11/19 @ 07:[address] Paulo Mota MD) Pneumonia (Acute) Pleural effusion, left (Acute) Anxiety (Acute) Sepsis (Acute) Reason for Visit: pneumonia Subjective: breathing well. placed on diltiazem gtt for HR control last night. Vitals/I&O's: Vital Signs Temp Pulse Resp BP Pulse Ox 36.6 C 113 H 22 H 106/80 99 11/14/19 06:04 11/14/19 08:00 11/14/19 08:00 11/14/19 08:00 11/14/19 08:00 Oxygen Flow Rate (L/min) 3 Oxygen Delivery Method Nasal Cannula Weight: 80.9 kg Body Mass Index (BMI) 27.9 Finger Stick Blood Glucose 166 Intake and Output for Last 24 Hours 11/12/19 11/13/19 11/14/19 23:59 23:59 23:59 Intake Total 910 / 1150 1447.50 / 1462.50 425.0 / 425.0 Output Total 600 / 600 1300 / 1300 250 / 250 Balance 310 / 550 147.50 / 162.50 175.0 / 175.0 General: Alert, Cooperative, No apparent distress HEENT: Atraumatic, Normocephalic Oral: Moist Mucosa, No Gingival or Mucosal Lesions/ Ulcerations Neck: No Nodes, Trachea Midline Lungs: Diminished, Wheezes - end-expiratory Cardiovascular: Irregular Rate, Tachycardic Abdomen: Bowel Sounds Present, Soft, Non Tender, Non-Distended, No Hepato- splenomegaly Extremities: No edema, No Calf Tenderness Skin: No rashes, No breakdown Psych/Mental Status: Normal Affect, Appropriate Microbiology Past 72 Hours 11/11/19 03:40 Blood Culture (Wb) #2 - Anticubital Right Blood Culture - Preliminary No growth in 48 hours. 11/11/19 03:45 Blood Culture (Wb) - Anticubital Left Blood Culture - Preliminary No growth in 48 hours. 11/11/19 09:55 Urine, Clean Catch Legionella Antigen - Final 11/11/19 09:55 Urine, Clean Catch Streptococcus pneumoniae Antigen (M - Final 11/11/19 07:09 Mucosa - Nasopharyngeal Respiratory Panel (PCR) - Final Laboratory Results 11/11/19 07:09: COVID-19 ([facility]) Not Detected 11/14/19 05:34: PT 15.2 H, INR 1.3 Current Medications Acetaminophen (Tylenol) 650 mg PO Q6H PRN PRN PRN Reason: Pain Score 1-10/Temp > 100.7 F Last Admin: 11/14/19 04:40 Dose: 650 mg Documented by: Albuterol/Ipratropium (Duoneb) 3 ml INHALATION Q4H.RT [facility] Last Admin: 11/14/19 07:05 Dose: 3 ml Documented by: Aspirin (Ecotrin) 81 mg PO DAILY@1000 [facility] Last Admin: 11/13/19 09:39 Dose: 81 mg Documented by: Bisacodyl (Dulcolax) 10 mg RECTAL DAILY PRN PRN PRN Reason: Constipation Last Admin: 11/11/19 19:56 Dose: 10 mg Documented by: Buspirone HCl (Buspar) 7.5 mg PO QHS [facility] Last Admin: 11/13/19 21:20 Dose: 7.5 mg Documented by: Citalopram Hydrobromide (Celexa) 40 mg PO DAILY [facility] Last Admin: 11/13/19 09:39 Dose: 40 mg Documented by: Cyanocobalamin (Vitamin B12) 500 mcg PO DAILY@1000 [facility] Last Admin: 11/13/19 09:40 Dose: 500 mcg Documented by: Dextrose (D50w Syringe) 0 gm IV X1 PRN; Protocol PRN Reason: Hypoglycemia Diltiazem HCl (Cardizem Cd) 120 mg PO Q12 [facility] Last Admin: 11/13/19 21:20 Dose: 120 mg Documented by: Enoxaparin Sodium (Lovenox) 40 mg SC DAILY@0600 [facility] Last Admin: 11/14/19 05:48 Dose: 40 mg Documented by: Furosemide (Lasix) 40 mg PO DAILY [facility] Last Admin: 11/13/19 09:39 Dose: 40 mg Documented by: Gabapentin (Neurontin) 100 mg PO QHS [facility] Last Admin: 11/13/19 21:21 Dose: 100 mg Documented by: Glucagon () 1 mg IM .X1 PRN PRN Reason: Hypoglycemia Piperacillin Sod/Tazobactam (Sod 3.375 gm/ Sodium Chloride) 50 mls @ 12.5 mls/hr IV Q8 [facility] Stop: 11/18/19 14:01 Last Admin: 11/14/19 05:49 Dose: 12.5 mls/hr Documented by: Sodium Chloride () 250 mls @ 15 mls/hr IV .[id number] PRN PRN Reason: Saline Flush Sodium Chloride () 250 mls @ 15 mls/hr IV .[id number] PRN PRN Reason: Additional IVPB Infusion Diltiazem HCl 125 mg/ Dextrose 125 mls @ 5 mls/hr IV .Q25H [facility]; Protocol Last Titration: 11/14/19 08:00 Dose: 15 mg/hr, 15 mls/hr Documented by: Lactobacillus Acidophilus (Acidophilus) 1 tablet PO DAILY [facility] Last Admin: 11/13/19 09:40 Dose: 1 tablet Documented by: Lidocaine (Lidoderm Patch) 1 patch TOPICAL DAILY [facility] Last Admin: 11/13/19 09:47 Dose: 1 patch Documented by: Melatonin (Melatonin) 3 mg PO QHS [facility] Last Admin: 11/13/19 21:20 Dose: 3 mg Documented by: Methocarbamol (Robaxin) 500 mg PO TID PRN PRN Reason: MUSCLE SPASM Metoprolol Tartrate (Lopressor (Beta [place])) 5 mg IV Q6H PRN PRN Reason: HR greater than 120 Last Admin: 11/13/19 17:07 Dose: 5 mg Documented by: Multivitamins/Minerals (Healthy Eyes (Bkc)) 1 capsule PO BID [facility] Last Admin: 11/13/19 21:20 Dose: 1 capsule Documented by: Ondansetron HCl (Zofran) 4 mg IV Q8H PRN PRN PRN Reason: NAUSEA/VOMITING Last Admin: 11/11/19 18:19 Dose: 4 mg Documented by: Pantoprazole Sodium (Protonix) 20 mg PO DAILY [facility] Last Admin: 11/13/19 09:39 Dose: 20 mg Documented by: Polyethylene Glycol (Miralax) 17 gm PO DAILY [facility] Last Admin: 11/13/19 09:46 Dose: 17 gm Documented by: Potassium Chloride (K-Dur) 20 meq PO DAILY [facility] Last Admin: 11/13/19 09:40 Dose: 20 meq Documented by: Prednisone () 40 mg PO DAILY@0800 [facility] Senna/Docusate Sodium (Senokot-S, Acterina-Colace) 2 tablet PO QHS [facility] Last Admin: 11/13/19 21:20 Dose: 2 tablet Documented by: Sodium Chloride () 10 - 40 ml IV UD PRN PRN Reason: SALINE FLUSH Last Admin: 11/13/19 17:07 Dose: 10 ml Documented by: Sucralfate (Carafate) 1 gm PO Q6H PRN PRN PRN Reason: GI UPSET Tramadol HCl (Ultram) 50 mg PO TIDCM [facility] Last Admin: 11/13/19 16:40 Dose: 50 mg Documented by: STROKE Vital Signs/Narrative: Vital Signs Temp Pulse Resp BP Pulse Ox 11/14/19 08:00 113 H 22 H 106/80 99 11/14/19 07:00 101 H 17 92/68 99 11/14/19 06:59 99 11/14/19 06:04 36.6 C 103 H 17 117/78 100 11/14/19 06:00 36.6 C 103 H 17 117/78 100 11/14/19 05:00 99 18 111/74 100 Medical Necessity - Tobacco Use Smoking Status: Never smoker Assessment/Plan All Active Problems (Last Reviewed 11/11/19 @ 07:[address] Paulo Mota MD) Pneumonia (Acute) Pleural effusion, left (Acute) Anxiety (Acute) Sepsis (Acute) 1. sepsis * 2/2 pneumonia * strep and legionella antigens, respiratory panel negative * blood cultures pending 2. pneumonia * possible gram negative * on pip tazo. DC vancomycin * pulm toilet 3. Acute COPD exacerbation * BDs * methylprednisolone, change to prednisone 4. Afib with RVR * continue dilt * start metoprolol. * started on IV dilt. HR improved to low 100s. hopefully can discontinue today if HR remains stable. * on warfarin * may need cardiology consultation if persists despite changes. 5. VTE prophylaxis: resume enoxaparin until INR therapeutic while in hospital. Inpatient E&M: [id number] Subs Hosp L2
[2019-11-14] MEDS: traMADol 50 MG Tablet PO ×2 (09:11→16:40)
[2019-11-14] MEDS: Metoprolol Tartrate 50 MG Tablet PO ×2 (09:11→21:31)
[2019-11-14] MEDS: dilTIAZem CD 120 MG Capsule PO ×2 (09:12→21:30)
[2019-11-14] MEDS: predniSONE 20 MG Tablet 40 MG PO (09:12)
[2019-11-14] MEDS: Multivitamin (Healthy Eyes) Capsule 1 CAP PO ×2 (09:13→21:30)
[2019-11-14] MEDS: Pantoprazole Sodium 20 MG Tablet PO (09:13)
[2019-11-14] MEDS: Citalopram 40 MG TABLET PO (09:13)
[2019-11-14] MEDS: Aspirin E.C. 81 MG Tablet PO (09:13)
[2019-11-14] MEDS: Furosemide 40 MG Tablet PO (09:13)
[2019-11-14] MEDS: Cyanocobalamin 500 MCG Tablet PO (09:14)
[2019-11-14] MEDS: Polyethylene Glycol 3350 17 GM PACKET PO (09:14)
[2019-11-14] MEDS: Lidocaine 5% Patch 1 PATCH TOPICAL (09:15)
[2019-11-14] MEDS: Bisacodyl 10 MG Suppository RECTAL (21:28)
[2019-11-14] MEDS: busPIRone 15 MG TABLET 7.5 MG PO (21:29)
[2019-11-14] MEDS: MELATONIN 3 MG TABLET PO (21:30)
[2019-11-14] MEDS: Gabapentin 100 MG Capsule PO (21:30)
[2019-11-14] MEDS: Senna/Docusate Sodium 1 Tablet 2 TABLET PO (21:30)
[2019-11-14] MEDS: 0.9% Saline Lock 10 ML Syringe IV (21:44)
[2019-11-15] VITALS (8 sets, daily range): BP systolic 125–128; BP diastolic 78–84; PULSE 91–96; RESP 12–18; TEMP 36.5–36.6; O2SAT 95–98
[2019-11-15] MEDS: Sucralfate 1 GM Tablet PO (03:56)
[2019-11-15] MEDS: Enoxaparin 40 MG/0.4 ML Syringe SC (05:36)
[2019-11-15] MEDS: Ipratropium/Albuterol Sulfate 3 ML AMPUL.NEB INHALATION ×2 (06:53→11:01)
[2019-11-15 07:05] LABS: International Normalized Ratio 1.4; Prothrombin Time (Protime)PT. 16.3 SECONDS (11.7-14.9)
[2019-11-15] MEDS: traMADol 50 MG Tablet PO ×2 (08:50→12:01)
[2019-11-15] MEDS: predniSONE 20 MG Tablet 40 MG PO (08:50)
[2019-11-15] MEDS: Multivitamin (Healthy Eyes) Capsule 1 CAP PO (10:09)
[2019-11-15] MEDS: Aspirin E.C. 81 MG Tablet PO (10:09)
[2019-11-15] MEDS: dilTIAZem CD 120 MG Capsule PO (10:09)
[2019-11-15] MEDS: Citalopram 40 MG TABLET PO (10:09)
[2019-11-15] MEDS: Furosemide 40 MG Tablet PO (10:09)
[2019-11-15] MEDS: Lidocaine 5% Patch 1 PATCH TOPICAL (10:10)
[2019-11-15] MEDS: Cyanocobalamin 500 MCG Tablet PO (10:10)
[2019-11-15] MEDS: Metoprolol Tartrate 50 MG Tablet PO (10:10)
[2019-11-15] MEDS: Pantoprazole Sodium 20 MG Tablet PO (10:10)
--- NOTE | 2019-11-15 11:12 | CASEMGMT ---
Patient will not be discharged today. [facility] will notify [place]. Green sheet will be placed on patient's chart in the event she is ready for discharge over the weekend. Plan: d/c back to [place] when medically ready. Regla ANDERSON
--- NOTE | 2019-11-15 12:33 | TREXTCAR_ITS ---
- Diet 11/11/19 06:50 Diet: Cardiac/Low Cholesterol Food consistency:: Regular Liquid Consistency:: Regular/Thin - Routine Orders/Code Status O2 Liters per Minute: 2 O2 Frequency: Continuous Keep PO Greater than or Equal to (%): 92 - encourage use of incentive spirometer Routine Lab Work: CBC - in 3 days, BMP - within 3 days, INR - daily Code Status: DNRCC-A - Therapies Weight Bearing: Weight bearing as tolerated Physical Therapy: Eval and Treat Occupational Therapy: Eval and Treat Speech Therapy: Eval and Treat - Allergies/Procedures Done in Hospital Allergies/Adverse Reactions: Allergies amlodipine besylate [From [facility]] Adverse Reaction (Verified 10/23/19 14:49) ANKLE AND LEG EDEMA RESOLVED OFF MED-PER PCP PAPERWORK codeine Adverse Reaction (Verified 10/23/19 14:49) MENTAL STATUS CHANGE lisinopril Adverse Reaction (Verified 10/23/19 14:49) COUGH Procedures: None - Type of Care/Length of Stay Estimated LOS: Convalescent Care Less Than 30 days Type of Care Needed: Skilled Rehab Potential: Good Prognosis: Good - Additional Orders/Day of Discharge Day of Discharge: 11/15/19 - Dietary and Speech Recommendations Dietitian Recommendations/Changes: Continue cardiac diet; monitor need for fluid restriction. - Follow Up Care Primary Care Physician: Tor Lucia MD [Primary Care Provider] - Please follow up with your Primary Care Physician in: within 1-2 weeks Please Follow Up With: Tor Jaffe MD When: as scheduled Please Follow Up With: Eveline Jason NP-C When: as scheduled
--- NOTE | 2019-11-15 12:44 | PCM.DC.SUM ---
Discharge Date and Diagnosis Date of Admission: 11/11/19 Date of Discharge: 11/15/19 - Primary Discharge Diagnosis Active and Suspected Problems (Last Reviewed 11/11/19 @ 07:[address] Paulo Mota MD) Sepsis secondary to pneumonia Pneumonia, possibly Acute COPD exacerbation A. fib with RVR - Secondary Discharge Diagnosis Chronic Problems (Last Reviewed 11/11/19 @ 07:[address] Paulo Mota MD) Back pain (Chronic) Compression fracture (Chronic) Other intervertebral disc degeneration, lumbar region (Chronic) Spinal stenosis, lumbar region with neurogenic claudication (Chronic) Spondylosis without myelopathy or radiculopathy, lumbar region (Chronic) Lumbago with sciatica, right side (Chronic) Unspecified abnormalities of gait and mobility (Chronic) Compression fracture of thoracic vertebra with routine healing (Chronic) ANKUSH (obstructive sleep apnea) (Chronic) Diastolic dysfunction (Chronic) Chronic hypoxemic respiratory failure (Chronic) Chronic anticoagulation (Chronic) Former tobacco use (Chronic) Depression (Chronic) Pulmonary hypertension (Chronic) History of recurrent deep vein thrombosis (DVT) (Chronic) History of pulmonary embolism (Chronic) History of cardioversion (Chronic) January of 2018.....HR not controlled with exertion while in AF on Beta madison and cardizem. Converted to NSR with cardioversion Paroxysmal atrial fibrillation (Chronic) DCCV on 01/31/2018; HTN (hypertension) (Chronic) Iron deficiency anemia (Chronic) Chronic diastolic CHF (congestive heart failure) (Chronic) Atrial fibrillation with RVR (Chronic) Dyslipidemia (Chronic) COPD (chronic obstructive pulmonary disease) (Chronic) Hospital Course and Treatment Imaging Results: Clinical Impression(s) from Imaging Studies Chest X-Ray 11/11/19 03:50 IMPRESSION: Small left pleural effusion with associated atelectasis versus infiltrate. at 0408 Reported and signed by: Diana Pike MD Electronically Signed: Diana Pike MD at 4:07 EDT Tel , Service support , Chest CTA 11/11/19 04:21 IMPRESSION: 1. Left upper lobe and left lower lobe opacities concerning for pneumonia. Atelectasis may also be present. 2. Small left pleural effusion. Individualized dose optimization techniques were used for this CT. at 0532 Reported and signed by: Diana Pike MD Electronically Signed: Diana Pike MD at 5:32 EDT Tel , Service support , Operations: None Procedures: None Summary of Care Provided: The patient is a 73 year old F has medical history of chronic hypoxic respiratory failure on 2 L of oxygen, COPD, ANKUSH, persistent atrial fibrillation, hypertension, resident in a detention who presented with progressive shortness of breath that started hours before admission associated with chest pain. Patient's admitting chest x-ray showed a small left pleural effusion with associated atelectasis. CTA of the chest showed left upper and lower lobe opacities concerning for pneumonia. Started on IV Zosyn. She also had A. fib with RVR was started on IV Cardizem. She was managed also once acute COPD exacerbation. Continue to improve and was switched to Cardizem oral. She was at her baseline at time of discharge. Discharged on 2 more days of Augmentin as well as a prednisone taper. Subjective: On the day of discharge, patient was seen and examined. Denied any new complaints. Objective: Physical exam: General: Alert, Cooperative, No apparent distress HEENT: Atraumatic, Normocephalic Oral: Moist Mucosa, No Gingival or Mucosal Lesions/ Ulcerations Neck: No Nodes, Trachea Midline Lungs: Diminished, Wheezes - end-expiratory Cardiovascular: Irregular Rate, Tachycardic Abdomen: Bowel Sounds Present, Soft, Non Tender, Non-Distended, No Hepato-splenomegaly Extremities: No edema, No Calf Tenderness Skin: No rashes, No breakdown Psych/Mental Status: Normal Affect, Appropriate - Physical Exam Vitals/I&O's: Vital Signs Temp Pulse Resp BP Pulse Ox 97.8 F 91 16 128/84 H 97 11/15/19 10:00 11/15/19 11:02 11/15/19 11:02 11/15/19 10:00 11/15/19 10:00 Oxygen Flow Rate (L/min) 2 Oxygen Delivery Method Nasal Cannula Weight: 80.9 kg Body Mass Index (BMI) 27.9 Finger Stick Blood Glucose 166 Intake and Output for Last 24 Hours 11/13/19 11/14/19 11/15/19 23:59 23:59 23:59 Intake Total 1447.50 / 1462.50 1203.00 / 1203.00 528.5 / 528.5 Output Total 1300 / 1300 1075 / 1225 500 / 500 Balance 147.50 / 162.50 128.00 / -22.00 28.5 / 28.5 Microbiology Past 72 Hours 11/11/19 03:40 Blood Culture (Wb) #2 - Anticubital Right Blood Culture - Preliminary No growth in 48 hours. 11/11/19 03:45 Blood Culture (Wb) - Anticubital Left Blood Culture - Preliminary No growth in 48 hours. Laboratory Results 11/15/19 05:54: PT 16.3 H, INR 1.4 Current Medications Acetaminophen (Tylenol) 650 mg PO Q6H PRN PRN PRN Reason: Pain Score 1-10/Temp > 100.7 F Last Admin: 11/14/19 04:40 Dose: 650 mg Documented by: Albuterol/Ipratropium (Duoneb) 3 ml INHALATION Q4H.RT [facility] Last Admin: 11/15/19 11:01 Dose: 3 ml Documented by: Aspirin (Ecotrin) 81 mg PO DAILY@1000 [facility] Last Admin: 11/15/19 10:09 Dose: 81 mg Documented by: Bisacodyl (Dulcolax) 10 mg RECTAL DAILY PRN PRN PRN Reason: Constipation Last Admin: 11/14/19 21:28 Dose: 10 mg Documented by: Buspirone HCl (Buspar) 7.5 mg PO QHS [facility] Last Admin: 11/14/19 21:29 Dose: 7.5 mg Documented by: Citalopram Hydrobromide (Celexa) 40 mg PO DAILY [facility] Last Admin: 11/15/19 10:09 Dose: 40 mg Documented by: Cyanocobalamin (Vitamin B12) 500 mcg PO DAILY@1000 [facility] Last Admin: 11/15/19 10:10 Dose: 500 mcg Documented by: Dextrose (D50w Syringe) 0 gm IV X1 PRN; Protocol PRN Reason: Hypoglycemia Diltiazem HCl (Cardizem Cd) 120 mg PO Q12 [facility] Last Admin: 11/15/19 10:09 Dose: 120 mg Documented by: Enoxaparin Sodium (Lovenox) 40 mg SC DAILY@0600 [facility] Last Admin: 11/15/19 05:36 Dose: 40 mg Documented by: Furosemide (Lasix) 40 mg PO DAILY [facility] Last Admin: 11/15/19 10:09 Dose: 40 mg Documented by: Gabapentin (Neurontin) 100 mg PO QHS [facility] Last Admin: 11/14/19 21:30 Dose: 100 mg Documented by: Glucagon () 1 mg IM .X1 PRN PRN Reason: Hypoglycemia Piperacillin Sod/Tazobactam (Sod 3.375 gm/ Sodium Chloride) 50 mls @ 12.5 mls/hr IV Q8 [facility] Stop: 11/18/19 14:01 Last Infusion: 11/15/19 09:03 Dose: Infused Documented by: Sodium Chloride () 250 mls @ 15 mls/hr IV .[id number] PRN PRN Reason: Saline Flush Last Infusion: 11/15/19 10:11 Dose: 0 mls/hr Documented by: Sodium Chloride () 250 mls @ 15 mls/hr IV .[id number] PRN PRN Reason: Additional IVPB Infusion Diltiazem HCl 125 mg/ Dextrose 125 mls @ 5 mls/hr IV .Q25H [facility]; Protocol Last Titration: 11/14/19 21:45 Dose: Infused Documented by: Lactobacillus Acidophilus (Acidophilus) 1 tablet PO DAILY [facility] Last Admin: 11/15/19 10:09 Dose: 1 tablet Documented by: Lidocaine (Lidoderm Patch) 1 patch TOPICAL DAILY [facility] Last Admin: 11/15/19 10:10 Dose: 1 patch Documented by: Melatonin (Melatonin) 3 mg PO QHS [facility] Last Admin: 11/14/19 21:30 Dose: 3 mg Documented by: Methocarbamol (Robaxin) 500 mg PO TID PRN PRN Reason: MUSCLE SPASM Metoprolol Tartrate (Lopressor (Beta [place])) 50 mg PO BID [facility] Last Admin: 11/15/19 10:10 Dose: 50 mg Documented by: Multivitamins/Minerals (Healthy Eyes (Bkc)) 1 capsule PO BID [facility] Last Admin: 11/15/19 10:09 Dose: 1 capsule Documented by: Ondansetron HCl (Zofran) 4 mg IV Q8H PRN PRN PRN Reason: NAUSEA/VOMITING Last Admin: 11/11/19 18:19 Dose: 4 mg Documented by: Pantoprazole Sodium (Protonix) 20 mg PO DAILY [facility] Last Admin: 11/15/19 10:10 Dose: 20 mg Documented by: Polyethylene Glycol (Miralax) 17 gm PO DAILY [facility] Last Admin: 11/15/19 10:08 Dose: Not Given Documented by: Potassium Chloride (K-Dur) 20 meq PO DAILY [facility] Last Admin: 11/15/19 10:09 Dose: 20 meq Documented by: Prednisone () 40 mg PO DAILY@0800 [facility] Last Admin: 11/15/19 08:50 Dose: 40 mg Documented by: Senna/Docusate Sodium (Senokot-S, Caterina-Colace) 2 tablet PO QHS [facility] Last Admin: 11/14/19 21:30 Dose: 2 tablet Documented by: Sodium Chloride () 10 - 40 ml IV UD PRN PRN Reason: SALINE FLUSH Last Admin: 11/14/19 21:44 Dose: 10 ml Documented by: Sucralfate (Carafate) 1 gm PO Q6H PRN PRN PRN Reason: GI UPSET Last Admin: 11/15/19 03:56 Dose: 1 gm Documented by: Tramadol HCl (Ultram) 50 mg PO TIDCM [facility] Last Admin: 11/15/19 12:01 Dose: 50 mg Documented by: Warfarin Sodium (Coumadin (Pbkc)) 4 mg PO MoWeThSa@1700 [facility] Last Admin: 11/14/19 16:40 Dose: 4 mg Documented by: Warfarin Sodium (Coumadin (Pbkc)) 3 mg PO SuTuFr@1700 [facility] Discharge Diet: Low fat/ Low Cholesterol, 2000 mg Sodium Diet Discharge Activity: Return to Normal Activity Home Medications: Medications to take at Discharge Ergocalciferol [Vitamin D] 50,000 unit PO TH 07/19/15 Citalopram Hydrobromide [Citalopram HBr] 40 mg PO DAILY 05/23/18 Budesonide 2 ml IH BID 01/17/19 Omeprazole 20 mg PO DAILY 01/17/19 Sucralfate [Carafate] 1 gm PO Q6H PRN PRN 01/17/19 Vit A/Vit C/Vit E/Zinc/Copper [Preservision Areds Tablet] 1 ea PO BID 01/17/19 Buspirone HCl 7.5 mg PO QHS 05/07/19 Cyanocobalamin (Vitamin B-12) [Vitamin B-12] 500 mcg PO DAILY@0800 07/12/19 Polyethylene Glycol 3350 17 gm PO DAILY 07/12/19 Potassium Chloride 20 meq PO DAILY #0 08/10/19 Bisacodyl [Gentle Laxative] 10 mg GA DAILY PRN PRN 08/22/19 Diltiazem CD [Cardizem CD] 120 mg PO Q12 08/22/19 Lactobacillus Acidophilus [Acidophilus] 1 ea PO DAILY 08/22/19 Sennosides/Docusate Sodium [Senna Plus 8.6-50 mg Tablet] 2 tab PO QHS 08/22/19 traMADol [Ultram] 50 mg PO TID 08/22/19 Acetaminophen [Tylenol Tablet] 650 mg PO Q6H PRN PRN tab 08/24/19 Methocarbamol [Robaxin] 500 mg PO TID PRN #42 tab 08/24/19 gabapentin 100 mg capsule 100 mg PO QHS 08/28/19 Lidocaine [Lidocaine Pain Relief] 1 ea TOPICAL DAILY 09/04/19 Ondansetron HCl [Zofran] 4 mg PO Q6H PRN 09/04/19 Furosemide [Lasix] 40 mg PO DAILY #30 09/09/19 warfarin 3 mg tablet 3 mg PO SUTUFR tab 10/24/19 Warfarin [Coumadin] 4 mg PO MOWETHSA 11/11/19 Amox/Clavulanate Tablet [Augmentin Tablet] 875 mg PO Q12H 3 Days #6 tab 11/15/19 Prednisone 10 mg PO DAILY #30 tab 11/15/19 Following Prescrptions Were Given to Patient: Amox/Clavulanate Tablet [Augmentin Tablet] 875 mg PO Q12H 3 Days #6 tab Prednisone 10 mg PO DAILY #30 tab Primary Care Physician: Tor Lucia MD [Primary Care Provider] - Please follow up with your Primary Care Physician in: within 1-2 weeks Please Follow Up With: Tor Jaffe MD When: as scheduled Please Follow Up With: Eveline Jason NP-C When: as scheduled Disposition: Intermediate facility Minutes spent on discharge:: 40 Patient Condition:: Stable Medical Necessity - Tobacco Use Smoking Status: Never smoker Tobacco Use: Non-smoker Meaningful Use Info Meaningful Use Diagnoses (Choose all that apply): None applicable Inpatient E&M: 17688 Disch Hosp
--- NOTE | 2019-11-15 12:50 | CASEMGMT ---
Patient is ready for discharge today. YAO faxed orders to [place]. YAO also called [place] and let Cornelia know about d/c. Patient was going to call her daughter to transport her back to [place]. Plan: d/c back to [place] under intermediate level of care. Patient's daughter transported her via private vehicle Regla ANDERSON
--- NOTE | 2019-11-15 13:04 | NURSING ---
Report called to [facility] spoke with nurse Moore.
== END 2019-11-15 13:38 | disposition skilled nursing facility (03) | DRG 194 ==
LOC: ED 05:52 → MS2 07:07 → PCU 11-13 12:59
PROVIDERS: Admitting Provider Hospitalist; Emergency Provider Emergency Medicine; PCP Family Medicine; Visit Provider Internal Medicine
DX: J18.9 Pneumonia, unspecified organism (principal); J44.0 Chronic obstructive pulmonary disease with (acute) lower respiratory infection; J44.1 Chronic obstructive pulmonary disease with (acute) exacerbation; J96.11 Chronic respiratory failure with hypoxia; I50.32 Chronic diastolic (congestive) heart failure; F32.9 Major depressive disorder, single episode, unspecified; F41.9 Anxiety disorder, unspecified; I27.20 Pulmonary hypertension, unspecified; D50.9 Iron deficiency anemia, unspecified; I48.0 Paroxysmal atrial fibrillation; I11.0 Hypertensive heart disease with heart failure; E78.5 Hyperlipidemia, unspecified; G47.33 Obstructive sleep apnea (adult) (pediatric); M51.36 Other intervertebral disc degeneration, lumbar region; M48.062 Spinal stenosis, lumbar region with neurogenic claudication; M54.41 Lumbago with sciatica, right side; M47.816 Spondylosis without myelopathy or radiculopathy, lumbar region; G89.29 Other chronic pain; R26.9 Unspecified abnormalities of gait and mobility; Z86.718 Personal history of other venous thrombosis and embolism; Z86.711 Personal history of pulmonary embolism; Z79.01 Long term (current) use of anticoagulants; Z99.81 Dependence on supplemental oxygen; Z79.899 Other long term (current) drug therapy; Z87.891 Personal history of nicotine dependence; Z66 Do not resuscitate
CPT/HCPCS: 36415; 36600; 71045; 71275; 80048; 80053; 80202; 82728; 82803; 83605; 83880; 84478; 84484; 85025; 85610; 85730; 86140; 87040; 87449; 87633; 87635; 87641; 93005; 94002; 94003; 94640; 96374; 96375; 97116; 97162; 97166; 97530; 99251; 99285; G2023; J7050; Q9967; A4216; G0463; J2405; U0004

== ENCOUNTER → 2019-11-16 14:30 | Outpatient (REF) | payer MEDICARE, MEDICAID, SELFPAY ==
[2019-11-11 06:58] VITALS: BMI 27.9
[2019-11-16 14:50] LABS: International Normalized Ratio 1.2; Prothrombin Time (Protime)PT. 14.3 SECONDS (11.7-14.9)
== END ==
LOC: OLS.AHA 14:30
PROVIDERS: PCP Family Medicine; Visit Provider Family Medicine
DX: Z79.2 Long term (current) use of antibiotics (principal); I48.0 Paroxysmal atrial fibrillation
CPT/HCPCS: 85610

== ENCOUNTER 2020-04-03 21:31 | Observation (INO) | payer MEDICARE, MEDICAID, SELFPAY ==
[2019-11-11 06:58] VITALS: BMI 27.9
[2020-04-03 21:33] VITALS: BP 119/101; PULSE 163; RESP 26; TEMP 36.7; O2SAT 99; BMI 25.9
[2020-04-03 21:38] VITALS: PULSE 173; RESP 27; O2SAT 96
--- NOTE | 2020-04-03 21:43 | EKG12_ITS ---
Test Reason : DYSRHYTHMIA Blood Pressure : / mmHG Vent. Rate : 157 BPM Atrial Rate : 197 BPM P-R Int : 000 ms QRS Dur : 068 ms QT Int : 290 ms P-R-T Axes : 000 052 004 degrees QTc Int : 468 ms Atrial fibrillation with rapid ventricular response Abnormal ECG Confirmed by CARLIE BHAT, KATELYN ([id number]), assistant film editor PABLITO TRUONG ([id number]) on 04/06/2020 1:46:59 PM Referred By: Confirmed By:KATELYN SEXTON MD
--- NOTE | 2020-04-03 21:43 | RAD_ITS ---
HISTORY: Chest pain, rapid heart rate. EXAMINATION/TECHNIQUE: XR Chest 1 View: COMPARISON: November 11, 2019 FINDINGS: LINES/DEVICES: None. LUNGS: Elevated left hemidiaphragm similar to prior study. Small left pleural effusion and left basilar atelectasis/infiltrate. Mild vascular prominence. No pneumothorax. MEDIASTINUM AND CARDIOVASCULAR STRUCTURES: Cardiac silhouette not enlarged. Central airways and mediastinal contour are unremarkable. BONES AND SOFT TISSUES: Unremarkable. RAD/Chest 1 View (Portable) IMPRESSION: Elevated left hemidiaphragm with small left pleural effusion and left basilar atelectasis/infiltrate. Mild vascular prominence at 2235 Reported and signed by: Malika Montgomery DO Electronically Signed: Malika Montgomery DO at 22:34 EDT Tel , Service support ,
[2020-04-03] MEDS: dilTIAZem 25 MG/5 ML Vial 20 MG IV BOLUS (21:45)
[2020-04-03 21:47] VITALS: BP 126/83; PULSE 109; RESP 24; TEMP 36.7; O2SAT 93
[2020-04-03] MEDS: Aspirin 81 MG TAB.CHEW 324 MG PO (21:50)
[2020-04-03 21:53] LABS: Absolute Lymphocyte Count 1.77 X10^3/uL (0.83-4.51); Absolute Neutrophil Count 5.9 X10^3/uL (2.0-7.7); Basophil# 0.06 X10^3/uL; Basophil% 0.7 % (0-1); Eosinophil# 0.14 X10^3/uL; Eosinophils% 1.6 % (0-5); Hemoglobin 11.3 g/dL (12.0-15.0); Lymphocyte # 1.77 X10^3/ul (4.0); Lymphocyte % 20.5 % (19-41); Mean Corp Hgb Conc 29.7 g/dL (32-36); Mean Corpuscular Hgb 25.2 pg (27.0-32.0); Mean Corpuscular Volume 84.8 fL (81-99); Mean Platelet Vol. 12.6 fl (6.2-12.0); Monocyte# 0.71 X10^3/uL; Monocyte% 8.2 % (0-10); NRBC Flagged by Analyzer 0 % (0-5); Neutrophil # 5.93 X10^3/uL (2.7-7.7); Neutrophil % 68.7 % (47-70); Platelet Count 243 K/mm3 (150-450); RBC Distribution Width SD 52.9 fl (35.1-43.9); Red Blood Count 4.48 M/mm3 (4.2-5.4); White Blood Count 8.6 K/mm3 (4.4-11.0)
[2020-04-03 22:00] LABS: International Normalized Ratio 2.5; Prothrombin Time (Protime)PT. 26.6 SECONDS (11.7-14.9)
--- NOTE | 2020-04-03 22:08 | ED.VIS.GEN ---
History of Present Illness Chief Complaint: Palpitations Informant: Patient Onset: Today Current Severity: Mild Maximum Severity: Severe Narrative: Patient presents secondary to left arm pain, burning in her legs, flushed sensation and feeling like she was going to pass out. Patient reported was found in A. fib RVR with heart rates up into the 180s. She does have a history of paroxysmal A. fib and is on Cardizem as well as Coumadin. On arrival to the emergency room patient was reportedly given 20 mg of IV Cardizem and patient currently is feeling improved. - Past Medical History (1) Anxiety Status: Chronic (2) COPD (chronic obstructive pulmonary disease) Status: Chronic (3) Chronic anticoagulation Status: Chronic (4) Chronic diastolic CHF (congestive heart failure) Status: Chronic (5) Depression Status: Chronic (6) Dyslipidemia Status: Chronic (7) HTN (hypertension) Status: Chronic (8) History of pulmonary embolism Status: Chronic (9) History of recurrent deep vein thrombosis (DVT) Status: Chronic (10) Pulmonary hypertension Status: Chronic Past Medical History - Allergies and Home Meds Allergies/Adverse Reactions: Allergies [place] besylate [place] [facility] Adverse Reaction (Verified 04/03/20 21:53) ANKLE AND LEG EDEMA RESOLVED OFF MED-PER PCP PAPERWORK codeine Adverse Reaction (Verified 04/03/20 21:53) MENTAL STATUS CHANGE lisinopril Adverse Reaction (Verified 04/03/20 21:53) COUGH Primary Care Physician: Tor Lucia MD [Primary Care Provider] - Prior records reviewed: Yes Surgical History: cholecystectomy, hysterectomy, - - tailbone surgery. Lives: Shelter Smoking Status: Never smoker - Family History Maternal Family History: Family History (Last Reviewed 02/10/20 @ 11:16 by Ev Tejeda) Sister Heart disease Family History: Reports: - - Patient notes a maternal history of dementia and stroke. Paternal Family History: Family History (Last Reviewed 02/10/20 @ 11:16 by Ev Tejeda) Sister Heart disease Family History: Reports: - Sibling Family History: Family History (Last Reviewed 02/10/20 @ 11:16 by Ev Tejeda) Sister Heart disease Family History: Reports: - - Patient notes a sibling specifically her sister with Parkinson's disease and heart disease as well as a brother with Parkinson's disease, asthma and history of blood clots. Review of Systems General: Denies: Chills, Fever Eyes: Denies: Visual changes - bilaterally ENT: Denies: Bilateral ear pain Cardiovascular: Reports: Chest pain, Palpitations, Heart racing Respiratory: Reports: Dyspnea Gastrointestinal: Denies: Abdominal pain, Nausea, Vomiting Genitourinary: Denies: Dysuria Musculoskeletal: Reports: Extremity Pain Skin: Denies: Rash Neurological: Denies: Headache Hematologic: Denies: Easy bruising, Easy bleeding Allergy: Denies: Uticaria Physical Exam Vital Signs/Narrative: Vital Signs Temp Pulse Resp BP Pulse Ox 04/03/20 21:47 98.1 F 109 H 24 H 126/83 H 93 04/03/20 21:38 173 H 27 H 96 04/03/20 21:33 98.1 F 163 H 26 H 119/101 H 99 Inital Vital Signs reviewed: Yes General: Well nourished, Well developed Head: Normocephalic ENT: Moist mucous membranes Neck: Supple Cardiovascular: Irregular, Tachycardia Respiratory: No distress, CTA bilaterally Abdomen: Soft, Nontender Extremities: Nontender Skin: Normal color Neurological: Alert, Oriented x3 Psychological: Depressed Diagnostic/Tx/Re-eval Impressions Chest X-Ray 04/03/20 21:43 IMPRESSION: Elevated left hemidiaphragm with small left pleural effusion and left basilar atelectasis/infiltrate. Mild vascular prominence at 2235 Reported and signed by: Malika Montgomery DO Electronically Signed: Malika Montgomery DO at 22:34 EDT Tel , Service support , 04/03/20 21:43 Chest 1 View (Portable) [RAD] Stat Laboratory Results 04/03/20 04/03/20 04/03/20 21:40 21:40 21:40 WBC 8.6 RBC 4.48 Hgb 11.3 L Hct 38.0 MCV 84.8 MCH 25.2 L MCHC 29.7 L RDW Std Deviation 52.9 H RDW Coeff of Laura 17.0 H Plt Count 243 MPV 12.6 H Immature Gran % (Auto) 0.300 Neut % (Auto) 68.7 Lymph % (Auto) 20.5 [place] % (Auto) 8.2 Eos % (Auto) 1.6 Baso % (Auto) 0.7 Absolute Neuts (auto) 5.9 Absolute Lymphs (auto) 1.77 Nucleated RBC % 0 PT 26.6 H INR 2.5 Sodium 141 Potassium 3.6 Chloride 102 Carbon Dioxide 36.0 H Anion Gap 3 L BUN 17 Creatinine 0.77 Estim Creat Clear Calc 46.54 Est GFR (MDRD) Af Amer 94 Est GFR (MDRD) Non-Af 78 BUN/Creatinine Ratio 22.1 H Glucose 99 Calcium 9.2 Troponin I < 0.015 - EKG Initial EKG Interpretation: Atrial Fibrillation - A. fib RVR with ventricular rate of 157. No acute ischemia. Follow-up EKG Interpretation: Atrial Fibrillation - A. fib at 105 with no acute ischemia. - Medical Decision Making Patient was given 20 mg of IV Cardizem before my initial evaluation. This was ordered by another ED physician. On repeat evaluation patient is resting comfortably. She states she does feel improved. Heart rate is around 110. She does not remember when she last had a stress test or heart cath. She does state that several times this past week her nurses at the group home stated that her heart rate was in the 140s and nothing was done. I will speak with hospitalist regarding observation overnight for cycling of cardiac enzymes and medication adjustments for better heart rate control. She does state that she was cardioverted in the past but it did not hold. On my initial evaluation patient also states that at some point tonight when she was feeling very bad she thought she might . She states that for some reason I keep hanging on. She does state there are times when she wishes she would just . When directly asked if she wants to harm herself she states no, not right now. I did ask if she would like to speak to a counselor but she did not answer that question. She states that a lot of her anxiety and problems come from not getting the appropriate medical attention that she feels she needs at the group home. ED Disposition - Plan for ED Patient: Disposition: Acute Care Hospital [facility] Diagnosis: Atrial fibrillation with RVR, Chest pain Referrals: Tor Lucia MD [Primary Care Provider] -
[2020-04-03 22:10] LABS: Anion Gap 3 (5-15); BUN 17 mg/dL (7-18); BUN/Creat Ratio 22.1 RATIO (10-20); Calcium,Total 9.2 mg/dL (8.5-10.1); Chloride 102 mmol/L (98-107); Creatinine, Serum 0.77 mg/dL (0.55-1.02); EST Glomerular Filtration Rate 78 mL/min (>60); Est Glom Filt Rate - Afr Amer 94 mL/min (>60); Estimated Creatinine Clearance 46.54 ml/min; Glucose 99 mg/dL (74-106); Potassium 3.6 mmol/L (3.5-5.1); Sodium Level 141 mmol/L (136-145)
--- NOTE | 2020-04-03 22:42 | EKG12_ITS ---
Test Reason : REPEAT EKG Blood Pressure : / mmHG Vent. Rate : 105 BPM Atrial Rate : 054 BPM P-R Int : 000 ms QRS Dur : 070 ms QT Int : 372 ms P-R-T Axes : 000 045 031 degrees QTc Int : 491 ms Atrial fibrillation with rapid ventricular response Low voltage QRS Abnormal ECG Confirmed by CARLIE BHAT, KATELYN ([id number]), image editor PABLITO TRUONG ([id number]) on 04/06/2020 1:46:41 PM Referred By: Confirmed By:KATELYN SEXTON MD
[2020-04-03 23:05] VITALS: BP 131/78; PULSE 104; RESP 20; TEMP 36.7; O2SAT 96
--- NOTE | 2020-04-03 23:16 | HP.PCM_ITS ---
Problem List (1) Back pain Status: Chronic Qualifiers: Back pain location: low back pain Chronicity: chronic Back pain laterality: unspecified Sciatica presence: unspecified whether sciatica present Qualified Code(s): M54.5 - Low back pain; G89.29 - Other chronic pain (2) Compression fracture Status: Chronic (3) Other intervertebral disc degeneration, lumbar region Status: Chronic (4) Spinal stenosis, lumbar region with neurogenic claudication Status: Chronic (5) Spondylosis without myelopathy or radiculopathy, lumbar region Status: Chronic (6) Lumbago with sciatica, right side Status: Chronic Qualifiers: Chronicity: chronic Back pain laterality: right Qualified Code(s): M54.41 - Lumbago with sciatica, right side; G89.29 - Other chronic pain (7) Unspecified abnormalities of gait and mobility Status: Chronic (8) Compression fracture of thoracic vertebra with routine healing Status: Chronic Qualifiers: Thoracic vertebra fracture level: T11 Qualified Code(s): S22.080D - Wedge compression fracture of T11-T12 vertebra, subsequent encounter for fracture with routine healing (9) Anxiety Status: Chronic (10) ANKUSH (obstructive sleep apnea) Status: Chronic (11) Diastolic dysfunction Status: Chronic (12) Chronic hypoxemic respiratory failure Status: Chronic (13) Chronic anticoagulation Status: Chronic (14) Former tobacco use Status: Chronic (15) Depression Status: Chronic Qualifiers: Depression Type: unspecified Qualified Code(s): F32.9 - Major depressive disorder, single episode, unspecified (16) Pulmonary hypertension Status: Chronic (17) History of recurrent deep vein thrombosis (DVT) Status: Chronic (18) History of pulmonary embolism Status: Chronic (19) History of cardioversion Status: Chronic Comment: January of 2018.....HR not controlled with exertion while in AF on Beta donna and cardizem. Converted to NSR with cardioversion (20) Paroxysmal atrial fibrillation Status: Acute Comment: DCC on 01/31/2018; (21) HTN (hypertension) Status: Chronic Qualifiers: Hypertension type: essential hypertension Qualified Code(s): I10 - Essential (primary) hypertension (22) Iron deficiency anemia Status: Chronic Qualifiers: Iron deficiency anemia type: unspecified iron deficiency Qualified Code(s): D50.9 - Iron deficiency anemia, unspecified (23) Chronic diastolic CHF (congestive heart failure) Status: Chronic (24) Atrial fibrillation with RVR Status: Chronic (25) Dyslipidemia Status: Chronic (26) COPD (chronic obstructive pulmonary disease) Status: Chronic Qualifiers: COPD type: unspecified COPD Qualified Code(s): J44.9 - Chronic obstructive pulmonary disease, unspecified History of Present Illness Date of Admission: 04/03/20 Chief Complaint: SOB The patient is a 74 year old F with a significant history of COPD; DVT and PE; pulmonary hypertension; atrial fibrillation; and heart failure with preserved ejection fraction who came to emergency department with shortness of breath that started the same day of presentation. At the [facility] where patient lives her heart rate was found to be in the 180s. Associated with her symptom is tingling; feeling flushed; burning of her bilateral feet; and presyncope. Further she had palpitations. Patient reported that she felt like she was going to . At emergency department patient was given 20 mg of IV push Cardizem. Patient said that she is not getting enough attention and care at the longterm where she currently resides. She reports of depression but without any suicidal or homicidal ideation.. Past Medical History Past Medical History (Chronic Problems): Chronic Problems (Last Reviewed 04/04/20 @ 02:[address] Paulo Mota MD) Back pain (Chronic) Compression fracture (Chronic) Other intervertebral disc degeneration, lumbar region (Chronic) Spinal stenosis, lumbar region with neurogenic claudication (Chronic) Spondylosis without myelopathy or radiculopathy, lumbar region (Chronic) Lumbago with sciatica, right side (Chronic) Unspecified abnormalities of gait and mobility (Chronic) Compression fracture of thoracic vertebra with routine healing (Chronic) Anxiety (Chronic) ANKUSH (obstructive sleep apnea) (Chronic) Diastolic dysfunction (Chronic) Chronic hypoxemic respiratory failure (Chronic) Chronic anticoagulation (Chronic) Former tobacco use (Chronic) Depression (Chronic) Pulmonary hypertension (Chronic) History of recurrent deep vein thrombosis (DVT) (Chronic) History of pulmonary embolism (Chronic) History of cardioversion (Chronic) January of 2018.....HR not controlled with exertion while in AF on Beta donna and cardizem. Converted to NSR with cardioversion HTN (hypertension) (Chronic) Iron deficiency anemia (Chronic) Chronic diastolic CHF (congestive heart failure) (Chronic) Atrial fibrillation with RVR (Chronic) Dyslipidemia (Chronic) COPD (chronic obstructive pulmonary disease) (Chronic) Medical History: Medical History (Last Reviewed 04/04/20 @ 05:[address] Paulo Mota MD) Dyslipidemia (Chronic) E78.5 COPD (chronic obstructive pulmonary disease) (Chronic) J44.9 Atrial fibrillation I48.91 Heart failure with preserved ejection fraction I50.30 Group 2. EF 65% 12/05/17 Essential hypertension I10 History of DVT (deep vein thrombosis) Z86.718 History of pulmonary embolus (PE) Z86.711 Pulmonary HTN I27.20 Venous insufficiency I87.2 Allergies amlodipine besylate [From [facility]] Adverse Reaction (Verified 04/03/20 21:53) ANKLE AND LEG EDEMA RESOLVED OFF MED-PER PCP PAPERWORK codeine Adverse Reaction (Verified 04/03/20 21:53) MENTAL STATUS CHANGE lisinopril Adverse Reaction (Verified 04/03/20 21:53) COUGH Home Medications: Ambulatory Orders Medication Instructions Recorded Ergocalciferol [Vitamin D] 50,000 unit PO TH 07/19/15 Citalopram Hydrobromide 40 mg PO DAILY 05/23/18 [Citalopram HBr] Budesonide 2 ml IH BID 01/17/19 Omeprazole 20 mg PO DAILY 01/17/19 Vit A/Vit C/Vit E/Zinc/Copper 1 ea PO BID 01/17/19 [Preservision Areds Tablet] Buspirone HCl 5 mg PO QHS 05/07/19 Cyanocobalamin (Vitamin B-12) 500 mcg PO DAILY@0800 07/12/19 [Vitamin B-12] Polyethylene Glycol 3350 17 gm PO DAILY 07/12/19 Potassium Chloride 20 meq PO DAILY #0 08/10/19 Bisacodyl [Gentle Laxative] 10 mg MO DAILY PRN PRN 08/22/19 Diltiazem CD [Cardizem CD] 120 mg PO Q12 08/22/19 Lactobacillus Acidophilus 1 ea PO DAILY 08/22/19 [Acidophilus] Sennosides/Docusate Sodium [Senna 2 tab PO QHS 08/22/19 Plus 8.6-50 mg Tablet] traMADol [Ultram] 50 mg PO TID 08/22/19 Acetaminophen [Tylenol Tablet] 650 mg PO Q6H PRN PRN tab 08/24/19 Methocarbamol [Robaxin] 500 mg PO TID PRN #42 tab 08/24/19 gabapentin 100 mg capsule 100 mg PO QHS 08/28/19 Lidocaine [Lidocaine Pain Relief] 1 ea TOPICAL DAILY 09/04/19 Ondansetron HCl [Zofran] 4 mg PO Q6H PRN 09/04/19 Furosemide [Lasix] 40 mg PO DAILY #30 09/09/19 Warfarin [Coumadin] 4.5 mg PO QHS 11/11/19 Linaclotide [Linzess] 72 mcg PO DAILY 04/03/20 Lorazepam 0.5 mg PO QHS 04/03/20 Ipratropium/Albuterol Sulfate 1 vial IH Q6H PRN PRN 04/04/20 [Duoneb] Surgical History: Surgical History (Last Reviewed 04/04/20 @ 05:[address] Paulo Mota MD) History of cholecystectomy Z90.49 History of total hysterectomy Z90.710 tailbone surgery Surgical History: cholecystectomy, hysterectomy, - - tailbone surgery. 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 Paulo Mota MD) Sister Heart disease History Items: - - Patient notes a maternal history of dementia and stroke. Paternal Family History: Family History (Last Reviewed 04/04/20 @ 05:[address] Paulo Mota MD) Sister Heart disease History Items: - Sibling Family History: Family History (Last Reviewed 04/04/20 @ 05:[address] Paulo Mota MD) Sister Heart disease History Items: - - Patient notes a sibling specifically her sister with Parkinson's disease and heart disease as well as a brother with Parkinson's disease, asthma and history of blood clots. Review of Systems Constitutional: Reports: Malaise, Fatigue. Denies: Chills, Fever, Weight Change HEENT: Denies: Head Aches, Sinus Congestion, Sinus Drainage Cardiovascular: Reports: Palpitations. Denies: Chest Pain Respiratory: Reports: Shortness of Breath. Denies: Cough, Sputum production Gastrointestinal: Denies: Abdominal Pain, Nausea, Vomiting Genitourinary: Denies: Dysuria Musculoskeletal: Denies: Joint Pain, Joint Tenderness Skin: Denies: Rash, Wounds Neurological: Reports: Tingling. Denies: Focal weakness, Numbness Psychiatric: Reports: Anxiety, Depression. Denies: Homicidal Ideations, Suicidal Ideations Hematologic/ Lymphatic: Denies: Easy Bruising, Easy Bleeding VTE Information - Inpt Only VTE Present on Admission: No VTE Mechan Device Prophylaxis: None VTE Pharm Prophylaxis ordered?: No Reason prophylaxis not ordered:: Treatment Not Indicated - On home Coumadin; therapeutic; continued. - Physical Exam Vitals/I&O's: Vital Signs Temp Pulse Resp BP Pulse Ox 98.0 F 104 H 20 H 131/78 H 96 04/03/20 23:05 04/03/20 23:05 04/03/20 23:05 04/03/20 23:05 04/03/20 23:05 Oxygen Flow Rate (L/min) 2 Oxygen Delivery Method Room Air Weight: 75 kg Body Mass Index (BMI) 25.9 Finger Stick Blood Glucose 166 General: Alert, Oriented x3, Cooperative HEENT: Atraumatic, PERRLA, EOMI, Normocephalic Neck: Supple, No JVD, Negative Carotid Bruits Lungs: No rales, Wheezes Cardiovascular: Normal S1, Normal S2, No murmurs, Irregular Rate, Tachycardic Abdomen: Bowel Sounds Present, Soft, Non Tender Extremities: Capillary Refill Less than 3 Seconds, Edema, Tenderness, - - Erythema bilateral legs. Skin: No rashes, No breakdown Musculoskeletal: No Tenderness to Palpation of Joints or Extremities Neurological: Cranial nerves II-XII grossly intact Psych/Mental Status: Depressed Laboratory Results 04/03/20 21:40: WBC 8.6, RBC 4.48, Hgb 11.3 L, Hct 38.0, MCV 84.8, MCH 25.2 L, MCHC 29.7 L, RDW Std Deviation 52.9 H, RDW Coeff of Laura 17.0 H, Plt Count 243, MPV 12.6 H, Immature Gran % (Auto) 0.300, Neut % (Auto) 68.7, Lymph % (Auto) 20.5, [place] % (Auto) 8.2, Eos % (Auto) 1.6, Baso % (Auto) 0.7, Absolute Neuts (auto) 5.9, Absolute Lymphs (auto) 1.77, Nucleated RBC % 0 04/03/20 21:40: Sodium 141, Potassium 3.6, Chloride 102, Carbon Dioxide 36.0 H, Anion Gap 3 L, BUN 17, Creatinine 0.77, Estim Creat Clear Calc 46.54, Est GFR (MDRD) Af Amer 94, Est GFR (MDRD) Non-Af 78, BUN/Creatinine Ratio 22.1 H, Glucose 99, Calcium 9.2, Troponin I < 0.015 04/03/20 21:40: PT 26.6 H, INR 2.5 Assessment/Plan All Active Problems (Last Reviewed 04/04/20 @ 02:[address] Paulo Mota MD) Paroxysmal atrial fibrillation (Acute) The patient is a 74 year old F with a significant history of COPD; DVT and PE; pulmonary hypertension;; atrial fibrillation; heart failure with preserved ejection fraction who came to emergency department with shortness of breath; tachycardia tingling; feeling flushed; burning of her bilateral feet; and presyncope. A. fib with RVR Chest x-ray was independently reviewed. Chest x-ray showed mild vascular prominence. Received 20 mg of Cardizem at emergency department Resume home Cardizem. Cardizem IV push if heart rate is more than 120 and MD to notify nurse. TSH is rather mildly low. Check free T4. Potassium is 3.6. Supplement potassium. Magnesium level was ordered. Magnesium level is 2.1. Initial troponin was negative; trend. INR is therapeutic. Continue same dose of home Coumadin. Daily PT/INR. If her rate is not controlled consider discussing case with cardiology. Patient follows up Dr. Jaffe. Depression and anxiety Buspirone and citalopram continued. Lorazepam continued Of note patient is unhappy at a longterm where she currently lives.Case management consult for disposition. COPD Home budesonide continued DuoNeb PRN. Bilateral legs edema Refuse Ryan wraps. Reportedly outpatient she uses GRETA hose. Refuse GRETA hose here. Elevate bilateral lower extremities. DVT prophylaxis Not indicated since patient is on warfarin for A. fib, DVT and PE. Warfarin continued. Inpatient E&M: 76291 Init Hosp L3
[2020-04-03 23:52] VITALS: BP 137/100; PULSE 115; RESP 20; TEMP 36.8; O2SAT 97
[2020-04-04] VITALS (17 sets, daily range): BP systolic 119–148; BP diastolic 77–111; PULSE 72–156; RESP 16–28; TEMP 36.3–37; O2SAT 96–99; BMI 25.1
[2020-04-04] MEDS: dilTIAZem CD 120 MG Capsule PO ×3 (00:41→21:26)
[2020-04-04 01:23] LABS: Magnesium 2.1 mg/dL (1.6-2.6); Thyroid Stim Hormone (TSH) 4.29 uIU/mL (0.358-3.74)
[2020-04-04] MEDS: dilTIAZem 25 MG/5 ML Vial 10 MG IV BOLUS (01:41)
[2020-04-04] MEDS: 0.9% Saline Lock 10 ML Syringe IV (01:42)
[2020-04-04] MEDS: traMADol 50 MG Tablet PO ×3 (02:00→21:25)
[2020-04-04] MEDS: LORazepam 0.5 MG Tablet PO ×2 (02:00→21:26)
[2020-04-04] MEDS: Gabapentin 100 MG Capsule PO ×2 (02:01→21:26)
[2020-04-04] MEDS: Warfarin 2.5 MG, Warfarin 2 MG 4.5 MG PO ×2 (02:01→16:57)
[2020-04-04] MEDS: busPIRone 5 MG Tablet PO ×2 (02:01→21:26)
[2020-04-04 04:42] LABS: Anion Gap 3 (5-15); BUN 14 mg/dL (7-18); BUN/Creat Ratio 21.8 RATIO (10-20); Calcium,Total 8.9 mg/dL (8.5-10.1); Chloride 101 mmol/L (98-107); Creatinine, Serum 0.64 mg/dL (0.55-1.02); EST Glomerular Filtration Rate 95 mL/min (>60); Est Glom Filt Rate - Afr Amer 115 mL/min (>60); Estimated Creatinine Clearance 46.54 ml/min; Glucose 99 mg/dL (74-106); Potassium 4.2 mmol/L (3.5-5.1); Sodium Level 140 mmol/L (136-145); T4 Free Direct 1.09 ng/dL (0.76-1.46)
[2020-04-04] MEDS: Budesonide Respules 0.5 MG/2 ML AMPUL.NEB. INHALATION ×2 (07:18→20:01)
[2020-04-04] MEDS: Acetaminophen 325 MG Tablet 650 MG PO (08:52)
[2020-04-04] MEDS: Multivitamin (Healthy Eyes) Capsule 1 CAP PO ×2 (09:00→16:57)
[2020-04-04] MEDS: Lidocaine 5% Patch 1 PATCH TOPICAL (09:00)
[2020-04-04] MEDS: Pantoprazole Sodium 20 MG Tablet PO (09:01)
[2020-04-04] MEDS: Citalopram 40 MG TABLET PO (09:01)
[2020-04-04] MEDS: Furosemide 40 MG Tablet PO (09:01)
[2020-04-04] MEDS: Cyanocobalamin 500 MCG Tablet PO (09:01)
[2020-04-04] MEDS: Polyethylene Glycol 3350 17 GM PACKET PO (11:51)
[2020-04-04] MEDS: Metoprolol Tartrate 25 MG Tablet PO ×2 (11:54→21:26)
--- NOTE | 2020-04-04 12:07 | PN_ITS ---
Reason for Visit: afib RVR Subjective: Feels well. No further palpitations. Headache this AM, helped with acetaminophen. Vitals/I&O's: Vital Signs Temp Pulse Resp BP Pulse Ox 36.9 C 124 H 18 137/90 H 96 04/04/20 11:50 04/04/20 11:54 04/04/20 11:50 04/04/20 11:50 04/04/20 11:50 Oxygen Flow Rate (L/min) 2 Oxygen Delivery Method Nasal Cannula Weight: 72.802 kg Body Mass Index (BMI) 25.1 Finger Stick Blood Glucose 166 Intake and Output for Last 24 Hours 04/02/20 04/03/20 04/04/20 23:59 23:59 23:59 Intake Total 320 / 320 Output Total 1100 / 1100 Balance -780 / -780 General: Alert, No apparent distress HEENT: Atraumatic, Normocephalic Oral: Moist Mucosa, No Gingival or Mucosal Lesions/ Ulcerations Neck: No Nodes, Thyroid Normal Size and Texture Lungs: Clear to auscultation, Normal air movement, No rhonchi, No wheeze, No rales Cardiovascular: Regular rate, Regular Rhythm, Normal S1, Normal S2, No murmurs Abdomen: Bowel Sounds Present, Soft, Non Tender, Non-Distended, No Hepato- splenomegaly Extremities: No edema, No Calf Tenderness Skin: No rashes, No breakdown Musculoskeletal: No Tenderness to Palpation of Joints or Extremities, No Muscle Wasting Psych/Mental Status: Normal Affect, Appropriate Laboratory Results 04/03/20 21:40: WBC 8.6, RBC 4.48, Hgb 11.3 L, Hct 38.0, MCV 84.8, MCH 25.2 L, MCHC 29.7 L, RDW Std Deviation 52.9 H, RDW Coeff of Laura 17.0 H, Plt Count 243, MPV 12.6 H, Immature Gran % (Auto) 0.300, Neut % (Auto) 68.7, Lymph % (Auto) 20.5, [place] % (Auto) 8.2, Eos % (Auto) 1.6, Baso % (Auto) 0.7, Absolute Neuts (auto) 5.9, Absolute Lymphs (auto) 1.77, Nucleated RBC % 0 04/03/20 21:40: Sodium 141, Potassium 3.6, Chloride 102, Carbon Dioxide 36.0 H, Anion Gap 3 L, BUN 17, Creatinine 0.77, Estim Creat Clear Calc 46.54, Est GFR (MDRD) Af Amer 94, Est GFR (MDRD) Non-Af 78, BUN/Creatinine Ratio 22.1 H, Glucose 99, Calcium 9.2, Troponin I < 0.015 04/03/20 21:40: PT 26.6 H, INR 2.5 04/03/20 21:40: Magnesium Cancelled, TSH Cancelled 04/04/20 00:53: Magnesium 2.1, Troponin I < 0.015, TSH 4.29 H 04/04/20 03:50: Sodium 140, Potassium 4.2, Chloride 101, Carbon Dioxide 36.0 H, Anion Gap 3 L, BUN 14, Creatinine 0.64, Estim Creat Clear Calc 46.54, Est GFR (MDRD) Af Amer 115, Est GFR (MDRD) Non-Af 95, BUN/Creatinine Ratio 21.8 H, Glucose 99, Calcium 8.9, Troponin I < 0.015, Free T4 1.09 Current Medications Acetaminophen (Tylenol) 650 mg PO Q6H PRN PRN PRN Reason: Pain Score 1-10/Temp > 100.7 F Last Admin: 04/04/20 08:52 Dose: 650 mg Documented by: Albuterol/Ipratropium (Duoneb) 3 ml INHALATION Q4H.RT PRN PRN Reason: SOB &/OR WHEEZING Bisacodyl (Dulcolax) 10 mg RECTAL DAILY PRN PRN PRN Reason: Constipation Budesonide (Pulmicort Aerosol) 0.5 mg INHALATION BID.RT [facility] Last Admin: 04/04/20 07:18 Dose: 0.5 mg Documented by: Buspirone HCl (Buspar) 5 mg PO QHS [facility] Last Admin: 04/04/20 02:01 Dose: 5 mg Documented by: Citalopram Hydrobromide (Celexa) 40 mg PO DAILY [facility] Last Admin: 04/04/20 09:01 Dose: 40 mg Documented by: Cyanocobalamin (Vitamin B12) 500 mcg PO DAILY@0800 [facility] Last Admin: 04/04/20 09:01 Dose: 500 mcg Documented by: Diltiazem HCl (Cardizem) 10 mg IV BOLUS X1 PRN PRN Reason: HR > 120 Last Admin: 04/04/20 01:41 Dose: 10 mg Documented by: Diltiazem HCl (Cardizem Cd) 120 mg PO Q12 [facility] Last Admin: 04/04/20 11:51 Dose: 120 mg Documented by: Ergocalciferol (Vitamin D) 50,000 unit PO TH [facility] Furosemide (Lasix) 40 mg PO DAILY [facility] Last Admin: 04/04/20 09:01 Dose: 40 mg Documented by: Gabapentin (Neurontin) 100 mg PO QHS [facility] Last Admin: 04/04/20 02:01 Dose: 100 mg Documented by: Lactobacillus Acidophilus (Acidophilus) 1 tablet PO DAILY [facility] Last Admin: 04/04/20 09:01 Dose: 1 tablet Documented by: Lidocaine (Lidoderm Patch) 1 patch TOPICAL DAILY [facility] Last Admin: 04/04/20 09:00 Dose: 1 patch Documented by: Lorazepam (Ativan) 0.5 mg PO QHS [facility] Last Admin: 04/04/20 02:00 Dose: 0.5 mg Documented by: Methocarbamol (Robaxin) 500 mg PO TID PRN PRN PRN Reason: MUSCLE SPASM Metoprolol Tartrate (Lopressor (Beta [place])) 25 mg PO BID [facility] Multivitamins/Minerals (Healthy Eyes (Bkc)) [facility] Last Admin: 04/04/20 09:00 Dose: 1 capsule Documented by: Nutritional Formula (Lactose Free) (Ensure Clear) 120 ml PO TIDCM [facility] Last Admin: 04/04/20 11:55 Dose: Not Given Documented by: Ondansetron HCl (Zofran) 4 mg IV Q8H PRN PRN PRN Reason: NAUSEA/VOMITING Ondansetron HCl (Zofran Odt) 4 mg PO Q6H PRN PRN PRN Reason: NAUSEA Pantoprazole Sodium (Protonix) 20 mg PO DAILY [facility] Last Admin: 04/04/20 09:01 Dose: 20 mg Documented by: Polyethylene Glycol (Miralax) 17 gm PO DAILY [facility] Last Admin: 04/04/20 11:51 Dose: 17 gm Documented by: Potassium Chloride (K-Dur) 40 meq [facility] Last Admin: 04/04/20 09:00 Dose: 40 meq Documented by: Senna/Docusate Sodium (Senokot-S, Caterina-Colace) 2 tablet PO QHS [facility] Sodium Chloride () 10 - 40 ml IV UD PRN PRN Reason: SALINE FLUSH Last Admin: 04/04/20 01:42 Dose: 10 ml Documented by: Tramadol HCl (Ultram) 50 mg PO TID [facility] Last Admin: 04/04/20 05:14 Dose: Not Given Documented by: Warfarin Sodium 2.5 mg/ (Warfarin Sodium 2 mg) 4.5 mg PO DAILY@1700 [facility] Last Admin: 04/04/20 02:01 Dose: 4.5 mg Documented by: STROKE Vital Signs/Narrative: Vital Signs Temp Pulse Resp BP Pulse Ox 04/04/20 11:54 124 H 04/04/20 11:50 36.9 C 98 18 137/90 H 96 Medical Necessity - Tobacco Use Smoking Status: Light Smoker (<10/day) Tobacco Use: Cigarettes Assessment/Plan All Active Problems (Last Reviewed 04/04/20 @ 05:[address] Paulo Mota MD) Paroxysmal atrial fibrillation (Acute) 1. afib with RVR * now rate-controlled after IV and oral dilt * will start metoprolol 25 BID and observe. She had been on this previously in November, but no longer on it. i can find no information on why this is. * anticoagulated with warfarin. * check UA and UCx to see if a UTI precipitated this. 2. Headache * subjectively improved * continue acetaminophen PRN 3. COPD * stable 4. VTE prophylaxis * already anticoagulated 5. Disposition: plan is to watch overnight and if HR remains stable, then could discharge back to SNF in stable condition. OBSV E&M: 64539 Subsequent observation care L2
--- NOTE | 2020-04-04 12:10 | NT.THERAPY_ITS ---
Nutrition Therapy Report - History Nutrition Services has been consulted to:: Manage nutrient details of diet order, Conduct nutrition education Current diet / nutrition support order:: cardiac; ensure clear 120mL TID - Anthropometric Measurements Height:: 5 ft 7 in Weight:: 72.802 kg Body Mass Index (BMI):: 25.1 - Relevant Labs Relevant Labs:: Hgb 11.3 g/dL (12.0-15.0) L 04/03/20 21:40 MCH 25.2 pg (27.0-32.0) L 04/03/20 21:40 MCHC 29.7 g/dL (32-36) L 04/03/20 21:40 RDW Std Deviation 52.9 fl (35.1-43.9) H 04/03/20 21:40 RDW Coeff of Laura 17.0 % (11.6-14.6) H 04/03/20 21:40 MPV 12.6 fl (6.2-12.0) H 04/03/20 21:40 PT 26.6 SECONDS (11.7-14.9) H 04/03/20 21:40 Carbon Dioxide 36.0 mmol/L (21.0-32.0) H 04/04/20 03:50 Anion Gap 3 (5-15) L 04/04/20 03:50 BUN/Creatinine Ratio 21.8 RATIO (10-20) H 04/04/20 03:50 TSH 4.29 uIU/mL (0.358-3.74) H 04/04/20 00:53 - Assessment Food / Nutrition-Related History:: Pt c/o nausea at time of assessment. States she did not eat much at breakfast this date. Familiar to this RDN from previous admissions. 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 Wt loss evident per EMR. Was 178.4# on 11/11/19, CBW 160.5#-17.9#/10% wt loss x 5 months, significant for malnutrition. - Nutrition Diagnosis Problem / Etiology / Signs & Symptoms (PES):: Moderate malnutrition in context of social/environmental circumstances related to inadequate energy intake at SNF secondary to dislike of food provided as evidenced by estimated PO intake <75% for greater than 3 months, 17.9#/10% wt loss x 5 months Evidence of Malnutrition Exists:: Yes Moderate PCM:: Social & Environmental circumstances - Nutrition Intervention Nutrition Prescription:: [id number] calories/day, 62-72 g protein/day - Food / Nutrient Delivery Interventions Summary of nutrition intervention:: Pt has Ensure Clear TID ordered but is currently refusing. Historically pt is not agreeable to ONS. Will leave Ensure Clear on MAR but suspect she will continue to refuse. Will adjust diet to regular-no added salt in hopes of maximizing PO intake this admission. Nutrition support ordered as / adjusted to:: regular-no added salt d/t malnutrition - MNT Monitoring Further MNT monitoring and evaluation required?: Yes MNT Follow-up in:: 3-5 days
--- NOTE | 2020-04-04 14:09 | CASEMGMT ---
RN CM Note: attempted x 2 to see patient to explain [place] form. Patient very sleepy and no family in room. Unable to complete @ this time. Admit to OBS time: 04/03/20 @7241. Yessica STOUT RN ACM
[2020-04-04] MEDS: Ipratropium/Albuterol Sulfate 3 ML AMPUL.NEB INHALATION ×2 (14:28→20:01)
[2020-04-04 14:33] LABS: Bacteria 0 SEEN /hpf (None Seen); Mucous, Urine 0 SEEN /hpf (<or=2+); Red Blood Cells-Urine 0 SEEN /hpf (0-5); Squamous Epithelial Cells - UA 0 SEEN /hpf (5-10); White Blood Cells 0 SEEN /hpf (0-5)
[2020-04-04 14:52] LABS: Color, Urine Yellow (Yellow); Glucose, Dipstick Normal (Normal); Ketone-Dipstick Negative (Negative); Leukocyte Esterase-Dipstick Negative /ul (Negative); Nitrite-Dipstick Negative (Negative); Occult Blood-Urine Negative /ul (Negative); Protein-Dipstick Negative (Negative); Urine Bilirubin Dipstick Negative (Negative); Urine Clarity Clear (Clear); Urine Urobilinogen Normal (Normal)
--- NOTE | 2020-04-04 15:03 | CASEMGMT ---
Addendum entered by Lizabeth Ramírez 04/04/20 15:22: SW spoke w/[facility], is okay for daughter to transport pt back to [place] when discharged should she want to do so. TRINI Gomez Original Note: SW reviewed chart, pt is here from [place]. SW faxed updates, called daughter and left a message. Green sheet w/transport form and COVID form on chart, COVID test to be ordered. Plan: Return to [place] when ready. TRINI Gomez
[2020-04-04 16:36] LABS: Probe Check PASS; Specimen Processing Control PASS
[2020-04-04] MEDS: Senna/Docusate Sodium 1 Tablet 2 TABLET PO (21:25)
[2020-04-05] VITALS (8 sets, daily range): BP systolic 121–124; BP diastolic 73–80; PULSE 74–97; RESP 16–20; TEMP 36.5–36.8; O2SAT 94–97
[2020-04-05] MEDS: Acetaminophen 325 MG Tablet 650 MG PO (03:58)
[2020-04-05] MEDS: traMADol 50 MG Tablet PO (05:59)
[2020-04-05 06:14] LABS: International Normalized Ratio 2.6; Prothrombin Time (Protime)PT. 27.7 SECONDS (11.7-14.9)
[2020-04-05] MEDS: Budesonide Respules 0.5 MG/2 ML AMPUL.NEB. INHALATION (07:14)
[2020-04-05] MEDS: dilTIAZem CD 120 MG Capsule PO (08:37)
[2020-04-05] MEDS: Lidocaine 5% Patch 1 PATCH TOPICAL (08:37)
[2020-04-05] MEDS: Citalopram 40 MG TABLET PO (08:38)
[2020-04-05] MEDS: Cyanocobalamin 500 MCG Tablet PO (08:38)
[2020-04-05] MEDS: Furosemide 40 MG Tablet PO (08:38)
[2020-04-05] MEDS: Pantoprazole Sodium 20 MG Tablet PO (08:39)
[2020-04-05] MEDS: Multivitamin (Healthy Eyes) Capsule 1 CAP PO (08:39)
[2020-04-05] MEDS: Polyethylene Glycol 3350 17 GM PACKET PO (08:39)
[2020-04-05] MEDS: Metoprolol Tartrate 25 MG Tablet PO (08:39)
[2020-04-05] MEDS: Bisacodyl 10 MG Suppository RECTAL (08:54)
--- NOTE | 2020-04-05 09:18 | TREXTCAR_ITS ---
- Diet 04/04/20 12:10 Diet: Regular - No Added Salt Is pt able to select menu?: Yes - Routine Orders/Code Status Code Status: Full Code - Therapies Physical Therapy: Eval and Treat Occupational Therapy: Eval and Treat - Allergies/Procedures Done in Hospital Allergies/Adverse Reactions: Allergies amlodipine besylate [From [facility]] Adverse Reaction (Verified 04/03/20 21:53) ANKLE AND LEG EDEMA RESOLVED OFF MED-PER PCP PAPERWORK codeine Adverse Reaction (Verified 04/03/20 21:53) MENTAL STATUS CHANGE lisinopril Adverse Reaction (Verified 04/03/20 21:53) COUGH - Type of Care/Length of Stay Estimated LOS: More Than 30 Days Type of Care Needed: Senior Care/Assisted Living Rehab Potential: Fair Prognosis: Fair - Additional Orders/Day of Discharge Day of Discharge: 04/05/20 - Dietary and Speech Recommendations Dietitian Recommendations/Changes: Will change diet to regular-no added salt d/t moderate malnutrition. Encourage ONS but suspect pt will continue to refuse. - Follow Up Care Primary Care Physician: Tor Lucia MD [Primary Care Provider] - Within 2 Weeks Please Follow Up With: Tor Jaffe MD When: 04/29/2020, already scheduled Please Follow Up With: Eveline Jason NP-C When: 05/11/2020, already scheduled
--- NOTE | 2020-04-05 09:20 | PCM.DC.SUM ---
Discharge Date and Diagnosis Date of Admission: 04/03/20 Date of Discharge: 04/05/20 - Primary Discharge Diagnosis Acute Problems: afib with RVR - Secondary Discharge Diagnosis Chronic Problems: Chronic Problems (Last Reviewed 04/04/20 @ 05:[address] Paulo Mota MD) Back pain (Chronic) Compression fracture (Chronic) Other intervertebral disc degeneration, lumbar region (Chronic) Spinal stenosis, lumbar region with neurogenic claudication (Chronic) Spondylosis without myelopathy or radiculopathy, lumbar region (Chronic) Lumbago with sciatica, right side (Chronic) Unspecified abnormalities of gait and mobility (Chronic) Compression fracture of thoracic vertebra with routine healing (Chronic) Anxiety (Chronic) ANKUSH (obstructive sleep apnea) (Chronic) Diastolic dysfunction (Chronic) Chronic hypoxemic respiratory failure (Chronic) Chronic anticoagulation (Chronic) Former tobacco use (Chronic) Depression (Chronic) Pulmonary hypertension (Chronic) History of recurrent deep vein thrombosis (DVT) (Chronic) History of pulmonary embolism (Chronic) History of cardioversion (Chronic) January of 2018.....HR not controlled with exertion while in AF on Beta madison and cardizem. Converted to NSR with cardioversion HTN (hypertension) (Chronic) Iron deficiency anemia (Chronic) Chronic diastolic CHF (congestive heart failure) (Chronic) Atrial fibrillation with RVR (Chronic) Dyslipidemia (Chronic) COPD (chronic obstructive pulmonary disease) (Chronic) Hospital Course and Treatment Imaging Results: Clinical Impression(s) from Imaging Studies Chest X-Ray 04/03/20 21:43 IMPRESSION: Elevated left hemidiaphragm with small left pleural effusion and left basilar atelectasis/infiltrate. Mild vascular prominence at 2235 Reported and signed by: Malika Montgomery DO Electronically Signed: Malika Montgomery DO at 22:34 EDT Tel , Service support , Operations: None Procedures: None Summary of Care Provided: The patient is a 74 year old F presents with shortness of breath. Patient was found to be in atrial fibrillation with RVR. Patient did receive IV diltiazem and then went up going into a controlled rate. Patient was continued on her oral diltiazem. Patient's heart rates remained in the 90s so was recommend patient be restarted on metoprolol. Patient started on metoprolol 25 mg twice daily on the . Patient was roomed overnight had no further issues and had no flareups of A. fib with RVR. Patient will continue with his regimen and follow-up with cardiology. Patient has an appointment already scheduled with Dr. Jaffe on 29 April. Patient is anticoagulated with warfarin. [] - Physical Exam Vitals/I&O's: Vital Signs Temp Pulse Resp BP Pulse Ox 36.6 C 74 20 H 121/80 H 94 04/05/20 08:35 04/05/20 08:39 04/05/20 08:35 04/05/20 08:35 04/05/20 08:35 Oxygen Flow Rate (L/min) 2 Oxygen Delivery Method Nasal Cannula Weight: 72.802 kg Body Mass Index (BMI) 25.1 Finger Stick Blood Glucose 166 Intake and Output for Last 24 Hours 04/03/20 04/04/20 04/05/20 23:59 23:59 23:59 Intake Total 640 / 640 240 / 240 Output Total 1650 / 1650 100 / 100 Balance -1010 / -1010 140 / 140 General: Alert, No apparent distress HEENT: Atraumatic, Normocephalic Oral: Moist Mucosa, No Gingival or Mucosal Lesions/ Ulcerations Neck: No Nodes, Thyroid Normal Size and Texture Lungs: Clear to auscultation, Normal air movement, No rhonchi, No wheeze, No rales Cardiovascular: Regular rate, Regular Rhythm, Normal S1, Normal S2, No murmurs Abdomen: Bowel Sounds Present, Soft, Non Tender, Non-Distended, No Hepato-splenomegaly Extremities: No edema, No Calf Tenderness Skin: No rashes, No breakdown Psych/Mental Status: Normal Affect, Appropriate Laboratory Results 04/04/20 14:25: Urine Color Yellow, Urine Clarity Clear, Urine pH 7.0, Ur Specific [place] 1.010, Urine Protein Negative, Urine Glucose (UA) Normal, Urine Ketones Negative, Urine Occult Blood Negative, Urine Nitrite Negative, Urine Bilirubin Negative, Urine Urobilinogen Normal, Ur Leukocyte Esterase Negative, Urine RBC 0 SEEN, Urine WBC 0 SEEN, Ur Squamous Epith Cells 0 SEEN, Urine Bacteria 0 SEEN, Urine Mucus 0 SEEN 04/04/20 15:35: COVID-19 (ZOILA) Negative 04/05/20 05:25: PT 27.7 H, INR 2.6 Current Medications Acetaminophen (Tylenol) 650 mg PO Q6H PRN PRN PRN Reason: Pain Score 1-10/Temp > 100.7 F Last Admin: 04/05/20 03:58 Dose: 650 mg Documented by: Albuterol/Ipratropium (Duoneb) 3 ml INHALATION Q4H.RT PRN PRN Reason: SOB &/OR WHEEZING Last Admin: 04/04/20 20:01 Dose: 3 ml Documented by: Bisacodyl (Dulcolax) 10 mg RECTAL DAILY PRN PRN PRN Reason: Constipation Last Admin: 04/05/20 08:54 Dose: 10 mg Documented by: Budesonide (Pulmicort Aerosol) 0.5 mg INHALATION BID.RT [facility] Last Admin: 04/05/20 07:14 Dose: 0.5 mg Documented by: Buspirone HCl (Buspar) 5 mg PO QHS [facility] Last Admin: 04/04/20 21:26 Dose: 5 mg Documented by: Citalopram Hydrobromide (Celexa) 40 mg PO DAILY [facility] Last Admin: 04/05/20 08:38 Dose: 40 mg Documented by: Cyanocobalamin (Vitamin B12) 500 mcg PO DAILY@0800 [facility] Last Admin: 04/05/20 08:38 Dose: 500 mcg Documented by: Diltiazem HCl (Cardizem) 10 mg IV BOLUS X1 PRN PRN Reason: HR > 120 Last Admin: 04/04/20 01:41 Dose: 10 mg Documented by: Diltiazem HCl (Cardizem Cd) 120 mg PO Q12 [facility] Last Admin: 04/05/20 08:37 Dose: 120 mg Documented by: Ergocalciferol (Vitamin D) 50,000 unit PO TH [facility] Furosemide (Lasix) 40 mg PO DAILY [facility] Last Admin: 04/05/20 08:38 Dose: 40 mg Documented by: Gabapentin (Neurontin) 100 mg PO QHS [facility] Last Admin: 04/04/20 21:26 Dose: 100 mg Documented by: Lactobacillus Acidophilus (Acidophilus) 1 tablet PO DAILY [facility] Last Admin: 04/05/20 08:38 Dose: 1 tablet Documented by: Lidocaine (Lidoderm Patch) 1 patch TOPICAL DAILY [facility] Last Admin: 04/05/20 08:37 Dose: 1 patch Documented by: Lorazepam (Ativan) 0.5 mg PO QHS [facility] Last Admin: 04/04/20 21:26 Dose: 0.5 mg Documented by: Methocarbamol (Robaxin) 500 mg PO TID PRN PRN PRN Reason: MUSCLE SPASM Metoprolol Tartrate (Lopressor (Beta [place])) 25 mg PO BID [facility] Last Admin: 04/05/20 08:39 Dose: 25 mg Documented by: Multivitamins/Minerals (Healthy Eyes (Bkc)) [facility] Last Admin: 04/05/20 08:39 Dose: 1 capsule Documented by: Nutritional Formula (Lactose Free) (Ensure Clear) 120 ml PO TIDCM [facility] Last Admin: 04/05/20 08:36 Dose: Not Given Documented by: Ondansetron HCl (Zofran) 4 mg IV Q8H PRN PRN PRN Reason: NAUSEA/VOMITING Ondansetron HCl (Zofran Odt) 4 mg PO Q6H PRN PRN PRN Reason: NAUSEA Pantoprazole Sodium (Protonix) 20 mg PO DAILY [facility] Last Admin: 04/05/20 08:39 Dose: 20 mg Documented by: Polyethylene Glycol (Miralax) 17 gm PO DAILY [facility] Last Admin: 04/05/20 08:39 Dose: 17 gm Documented by: Potassium Chloride (K-Dur) [facility]q [facility] Last Admin: 04/05/20 08:37 Dose: 40 meq Documented by: Senna/Docusate Sodium (Senokot-S, Caterina-Colace) 2 tablet PO QHS [facility] Last Admin: 04/04/20 21:25 Dose: 2 tablet Documented by: Sodium Chloride () 10 - 40 ml IV UD PRN PRN Reason: SALINE FLUSH Last Admin: 04/04/20 01:42 Dose: 10 ml Documented by: Tramadol HCl (Ultram) 50 mg PO TID [facility] Last Admin: 04/05/20 05:59 Dose: 50 mg Documented by: Warfarin Sodium 2.5 mg/ (Warfarin Sodium 2 mg) 4.5 mg PO DAILY@1700 [facility] Last Admin: 04/04/20 16:57 Dose: 4.5 mg Documented by: Discharge Diet: Low fat/ Low Cholesterol Home Medications: Medications to take at Discharge Ergocalciferol [Vitamin D] 50,000 unit PO TH 07/19/15 Citalopram Hydrobromide [Citalopram HBr] 40 mg PO DAILY 05/23/18 Budesonide 2 ml IH BID 01/17/19 Omeprazole 20 mg PO DAILY 01/17/19 Vit A/Vit C/Vit E/Zinc/Copper [Preservision Areds Tablet] 1 ea PO BID 01/17/19 Buspirone HCl 5 mg PO QHS 05/07/19 Cyanocobalamin (Vitamin B-12) [Vitamin B-12] 500 mcg PO DAILY@0800 07/12/19 Polyethylene Glycol 3350 17 gm PO DAILY 07/12/19 Potassium Chloride 20 meq PO DAILY #0 08/10/19 Bisacodyl [Gentle Laxative] 10 mg NV DAILY PRN PRN 08/22/19 Diltiazem CD [Cardizem CD] 120 mg PO Q12 08/22/19 Lactobacillus Acidophilus [Acidophilus] 1 ea PO DAILY 08/22/19 Sennosides/Docusate Sodium [Senna Plus 8.6-50 mg Tablet] 2 tab PO QHS 08/22/19 traMADol [Ultram] 50 mg PO TID 08/22/19 Acetaminophen [Tylenol Tablet] 650 mg PO Q6H PRN PRN tab 08/24/19 Methocarbamol [Robaxin] 500 mg PO TID PRN #42 tab 08/24/19 gabapentin 100 mg capsule 100 mg PO QHS 08/28/19 Lidocaine [Lidocaine Pain Relief] 1 ea TOPICAL DAILY 09/04/19 Ondansetron HCl [Zofran] 4 mg PO Q6H PRN 09/04/19 Furosemide [Lasix] 40 mg PO DAILY #30 09/09/19 Warfarin [Coumadin] 4.5 mg PO QHS 11/11/19 Linaclotide [Linzess] 72 mcg PO DAILY 04/03/20 Ipratropium/Albuterol Sulfate [Duoneb] 1 vial IH Q6H PRN PRN 04/04/20 Ensure Clear 120 ml PO TIDCM liquid 04/05/20 Lorazepam 0.5 mg PO QHS PRN #3 tab 04/05/20 Metoprolol Tartrate [Lopressor (beta madison)] 25 mg PO BID tab 04/05/20 Following Prescriptions Were Given to Patient: Lorazepam 0.5 mg PO QHS PRN #3 tab PRN Reason: Anxiety Prescription Printed Primary Care Physician: Tor Lucia MD [Primary Care Provider] - Within 2 Weeks Please Follow Up With: Tor Jaffe MD When: 04/29/2020, already scheduled Please Follow Up With: Eveline Jason NP-Kimberly When: 05/11/2020, already scheduled Disposition: Asstd Living/Non-Skill NC Minutes spent on discharge:: 32 Patient Condition:: Fair Medical Necessity - Tobacco Use Smoking Status: Light Smoker (<10/day) Tobacco Use: Cigarettes Meaningful Use Info Meaningful Use Diagnoses (Choose all that apply): None applicable Inpatient E&M: 26296 [facility]
[2020-04-05] MEDS: Ipratropium/Albuterol Sulfate 3 ML AMPUL.NEB INHALATION (10:01)
--- NOTE | 2020-04-05 13:44 | NURSING ---
This RN called [facility] and report given to Sowmya. Pt's daughter to transport patient to the [facility].
== END 2020-04-05 09:19 | disposition skilled nursing facility (03) ==
LOC: ED 22:55 → PCU 23:36
PROVIDERS: Emergency Medicine; Admitting Provider Hospitalist; Emergency Provider Emergency Medicine; PCP Family Medicine
DX: I48.0 Paroxysmal atrial fibrillation (principal); F41.9 Anxiety disorder, unspecified; F32.9 Major depressive disorder, single episode, unspecified; J44.9 Chronic obstructive pulmonary disease, unspecified; I50.32 Chronic diastolic (congestive) heart failure; E78.5 Hyperlipidemia, unspecified; I11.0 Hypertensive heart disease with heart failure; I27.20 Pulmonary hypertension, unspecified; G89.29 Other chronic pain; G47.33 Obstructive sleep apnea (adult) (pediatric); Z86.711 Personal history of pulmonary embolism; Z86.718 Personal history of other venous thrombosis and embolism; Z79.899 Other long term (current) drug therapy; Z79.51 Long term (current) use of inhaled steroids; Z79.01 Long term (current) use of anticoagulants; Z87.891 Personal history of nicotine dependence
CPT/HCPCS: 36415; 71045; 80048; 81001; 83735; 84439; 84443; 84484; 85025; 85610; 87086; 87088; 87635; 93005; 94640; 96374; 96376; 97162; 97165; 97802; 99218; 99285; C9803; J7030; A4216; G0378; J0153; U0003

== ENCOUNTER 2020-05-27 01:26 | Emergency (ER) | payer MEDICARE, MEDICAID, SELFPAY ==
[2020-04-29 11:56] VITALS: BMI 25.3
[2020-05-27 01:30] VITALS: BP 116/80; PULSE 77; RESP 23; TEMP 36.9; O2SAT 96; BMI 25.0
--- NOTE | 2020-05-27 01:33 | RAD_ITS ---
STUDY: X-RAY CHEST REASON FOR EXAM: Female, 74 years old. INCREASED SOB -- HX OF COPD TECHNIQUE: Single AP portable view of the chest. COMPARISON: April 03, 2020 September 04, 2019 chest x-ray FINDINGS: There is a stable suprahilar nodule measuring 6.7 mm. There is persistent elevation of the left hemidiaphragm. There is minimal increased linear density right lower lobe. There is no demonstrated pleural abnormality. Normal size heart. Normal mediastinum and betty. Normal visualized pulmonary arteries. Normal visualized aortic arch and descending thoracic aorta. There are diffuse degenerative changes of the visualized thoracic spine. Normal visualized ribs, clavicles, and shoulders. There is no demonstrated abnormality of the visualized soft tissue structures of the upper abdomen. RAD/Chest 1 View (Portable) IMPRESSION: Stable suprahilar nodule measuring 6.7 mm. Elevation of the right hemidiaphragm. Right lower lobe atelectasis. Electronically Signed: Malika Raymond MD at 2:57 EST Tel , Service support ,
--- NOTE | 2020-05-27 01:33 | EKG12_ITS ---
Test Reason : DYSRHYTHMIA Blood Pressure : / mmHG Vent. Rate : 078 BPM Atrial Rate : 101 BPM P-R Int : 000 ms QRS Dur : 074 ms QT Int : 518 ms P-R-T Axes : 000 027 069 degrees QTc Int : 590 ms Atrial fibrillation Nonspecific T wave abnormality Abnormal ECG Confirmed by SARAHY BHAT, KYLEIGH ([id number]), communications editor DIANA AHUMADA ([id number]) on 06/01/2020 1:03:18 PM Referred By: MR Confirmed By:JERMAINE WEATHERS MD
[2020-05-27 01:34] VITALS: BP 112/80; PULSE 79; RESP 23; TEMP 36.9; O2SAT 95; O2SAT 96
--- NOTE | 2020-05-27 01:37 | ED.VIS.DYS ---
History of Present Illness Chief Complaint: Shortness of Breath Informant: EMS Narrative: Patient presenting for evaluation secondary to shortness of breath. Patient has a underlying history of COPD on chronic oxygen 2 L. Patient states that she always feels short of breath but apparently was getting somewhat worse this evening and she required increase of her baseline oxygen to 4 L. When EMS arrived she was receiving a breathing treatment on 4 L of oxygen and was noted to be hypoxic in the mid to high 80s. She was placed on a nonrebreather and brought to the emergency department. Patient denies any chest pain. She states that she always has lower extremity swelling this is unchanged. She denies any recent fevers cough or infections. No nausea vomiting. No diarrhea. No recent changes in her medications. Review of systems otherwise negative. Past Medical History - Allergies and Home Meds Allergies/Adverse Reactions: Allergies amlodipine besylate [From [facility]] Adverse Reaction (Verified 05/27/20 01:30) ANKLE AND LEG EDEMA RESOLVED OFF MED-PER PCP PAPERWORK codeine Adverse Reaction (Verified 05/27/20 01:30) MENTAL STATUS CHANGE lisinopril Adverse Reaction (Verified 05/27/20 01:30) COUGH Primary Care Physician: Tor Lucia MD [Primary Care Provider] - Prior records reviewed: Yes Past Medical History: - - COPD, pulmonary hypertension, congestive heart failure, atrial fibrillation, PEs, chronic oxygen dependence Surgical History: cholecystectomy, hysterectomy, - - tailbone surgery. Lives: Alf Smoking Status: Former smoker Alcohol: None Drugs: None - Family History Maternal Family History: Family History (Last Reviewed 04/29/20 @ 12:03 by Freida Garcia) Sister Heart disease Family History: Reports: - - Patient notes a maternal history of dementia and stroke. Paternal Family History: Family History (Last Reviewed 04/29/20 @ 12:03 by Freida Garcia) Sister Heart disease Family History: Reports: - Sibling Family History: Family History (Last Reviewed 04/29/20 @ 12:03 by Freida Garcia) Sister Heart disease Family History: Reports: - - Patient notes a sibling specifically her sister with Parkinson's disease and heart disease as well as a brother with Parkinson's disease, asthma and history of blood clots. Review of Systems All systems negative except as indicated General: Denies: Chills, Fever, Sweats Eyes: Denies: Visual changes - bilaterally, Diplopia ENT: Denies: Rhinorrhea, Sore throat Cardiovascular: Denies: Chest pain, Palpitations Respiratory: Reports: Dyspnea Gastrointestinal: Denies: Abdominal pain, Nausea, Vomiting, Diarrhea, Melena, Hematochezia Genitourinary: Denies: Dysuria, Hematuria, Frequency Musculoskeletal: Reports: Swelling Skin: Denies: Rash, Wounds Neurological: Denies: Headache, Weakness, Numbness Physical Exam Vital Signs/Narrative: Vital Signs Temp Pulse Resp BP Pulse Ox 05/27/20 01:30 98.4 F 77 23 H 116/80 96 Inital Vital Signs reviewed: Yes General: Well developed, - - Thin elderly female no acute distress Head: Normocephalic, Atraumatic Eyes: Perrl, EOMI ENT: Moist mucous membranes, No rhinorrhea Neck: Supple, Nontender Cardiovascular: Regular rate, Regular rhythm, Murmur - 2 out of 6 systolic over the right sternal border, - - 2+ radial pulses bilaterally symmetric Respiratory: - - Patient appears to have normal respiratory effort. There is poor air movement with wheezing in the bilateral lung franklin. No retractions. Abdomen: Soft, Nontender, Nondistended, Normal bowel sounds Back: Nontender, Normal Inspection Extremities: - - Trace pitting lower extremity peripheral edema that is bilaterally symmetric and tender Skin: Normal color, No rash Neurological: Alert, Oriented x3, Cranial nerves II-XII grossly intact, Normal Strength, Normal Sensation Psychological: Normal affect, Normal Mood Diagnostic/Tx/Re-eval Clinical Impression(s) from Imaging Studies Chest X-Ray 05/27/20 01:33 IMPRESSION: Stable suprahilar nodule measuring 6.7 mm. Elevation of the right hemidiaphragm. Right lower lobe atelectasis. Electronically Signed: Malika Raymond MD at 2:57 EST Tel , Service support , Laboratory Data 05/27/20 05/27/20 05/27/20 01:45 01:45 01:45 WBC 9.0 RBC 4.35 Hgb 11.2 L Hct 38.1 MCV 87.6 MCH 25.7 L MCHC 29.4 L RDW Std Deviation 52.0 H RDW Coeff of Laura 16.2 H Plt Count 214 MPV 12.7 H Immature Gran % (Auto) 0.200 Neut % (Auto) 72.5 H Lymph % (Auto) 17.4 L [place] % (Auto) 7.0 Eos % (Auto) 2.3 Baso % (Auto) 0.6 Absolute Neuts (auto) 6.5 Absolute Lymphs (auto) 1.56 Nucleated RBC % 0 PT INR Specimen Type VBG pH VBG pO2 VBG HCO3 VBG Total CO2 VBG O2 Sat (Calc) VBG Base Excess POC Mix VBG pCO2 Pt Tmp Sodium 141 Potassium 3.6 Chloride 99 Carbon Dioxide 41.0 H Anion Gap 1 L BUN 18 Creatinine 0.69 Estim Creat Clear Calc 46.54 Est GFR (MDRD) Af Amer 107 Est GFR (MDRD) Non-Af 88 BUN/Creatinine Ratio 26.2 H Glucose 158 H Calcium 9.0 Troponin I < 0.015 B-Natriuretic Peptide 263.7 H 05/27/20 05/27/20 01:45 02:31 WBC RBC Hgb Hct MCV MCH MCHC RDW Std Deviation RDW Coeff of Laura Plt Count MPV Immature Gran % (Auto) Neut % (Auto) Lymph % (Auto) [place] % (Auto) Eos % (Auto) Baso % (Auto) Absolute Neuts (auto) Absolute Lymphs (auto) Nucleated RBC % PT 20.8 H INR 1.9 Specimen Type AJ VBG pH 7.37 VBG pO2 46 H VBG HCO3 37 H VBG Total CO2 39 H VBG O2 Sat (Calc) 78 H VBG Base Excess 12 H POC Mix VBG pCO2 Pt Tmp 64.6 H Sodium Potassium Chloride Carbon Dioxide Anion Gap BUN Creatinine Estim Creat Clear Calc Est GFR (MDRD) Af Amer Est GFR (MDRD) Non-Af BUN/Creatinine Ratio Glucose Calcium Troponin I B-Natriuretic Peptide - EKG Initial EKG Interpretation: - - Atrial fibrillation with a ventricular rate of 78 with nonspecific T wave flattening, no evidence of ST changes. - Medical Decision Making Patient presented secondary to reported shortness of breath. Patient tells me on arrival I was not sure why they were sending me to the hospital. Patient was given a breathing treatment prior to arrival, was given 2 breathing treatments and prednisone in the emergency department. Patient's chest x-ray per radiology and my personal review shows no evidence of acute infiltrate. Blood gas demonstrates the patient to be hypercapnic but compensated, likely at the patient's baseline. Troponin was negative. EKG shows A. fib. CBC unremarkable. Patient on repeat evaluation was saturating at 90 to 93% on her normal 2 L. I do not get the sense at this point that the patient is having a exacerbation that is severe enough that would require admission. I feel that she is appropriate for outpatient management with steroids. Patient will be sent home with a course of prednisone, she will be instructed to follow-up with primary care. Patient was discharged in stable condition. ED Disposition - Plan for ED Patient: Disposition: Home or Assisted Living Diagnosis: COPD exacerbation Instructions: ED COPD Flare Prescriptions: Prednisone [Deltasone] 40 mg PO DAILY #10 tab Prescription Printed Referrals: Tor Lucia MD [Primary Care Provider] - 2 Days
[2020-05-27 01:48] LABS: Absolute Lymphocyte Count 1.56 X10^3/uL (0.83-4.51); Absolute Neutrophil Count 6.5 X10^3/uL (2.0-7.7); Basophil# 0.05 X10^3/uL; Basophil% 0.6 % (0-1); Eosinophil# 0.21 X10^3/uL; Eosinophils% 2.3 % (0-5); Hematocrit 38.1 % (37-47); Hemoglobin 11.2 g/dL (12.0-15.0); Lymphocyte # 1.56 X10^3/ul (4.0); Lymphocyte % 17.4 % (19-41); Mean Corp Hgb Conc 29.4 g/dL (32-36); Mean Corpuscular Hgb 25.7 pg (27.0-32.0); Mean Corpuscular Volume 87.6 fL (81-99); Mean Platelet Vol. 12.7 fl (6.2-12.0); Monocyte# 0.63 X10^3/uL; NRBC Flagged by Analyzer 0 % (0-5); Neutrophil # 6.48 X10^3/uL (2.7-7.7); Neutrophil % 72.5 % (47-70); Platelet Count 214 K/mm3 (150-450); RBC Distribution Width CV 16.2 % (11.6-14.6); Red Blood Count 4.35 M/mm3 (4.2-5.4)
[2020-05-27 01:51] VITALS: PULSE 77; RESP 22; O2SAT 94
[2020-05-27] MEDS: Albuterol 2.5 MG/3 ML VIAL.NEB. INHALATION (01:51)
[2020-05-27] MEDS: Ipratropium/Albuterol Sulfate 3 ML AMPUL.NEB INHALATION (01:51)
[2020-05-27 01:57] LABS: International Normalized Ratio 1.9; Prothrombin Time (Protime)PT. 20.8 SECONDS (11.7-14.9)
[2020-05-27 02:07] LABS: Anion Gap 1 (5-15); BUN 18 mg/dL (7-18); BUN/Creat Ratio 26.2 RATIO (10-20); Chloride 99 mmol/L (98-107); Creatinine, Serum 0.69 mg/dL (0.55-1.02); EST Glomerular Filtration Rate 88 mL/min (>60); Est Glom Filt Rate - Afr Amer 107 mL/min (>60); Estimated Creatinine Clearance 46.54 ml/min; Glucose 158 mg/dL (74-106); Potassium 3.6 mmol/L (3.5-5.1); Sodium Level 141 mmol/L (136-145)
[2020-05-27 02:11] LABS: BNP,B-Type NATRIURETIC PEPTIDE 263.7 pg/mL (0-100)
[2020-05-27 02:35] LABS: Blood Gas Specimen Type VEN; VBG BASE EXCESS 12 mmol/L (-1.0-3.5); VBG Bicarbonate 37 mmol/L (22-26); VBG PO2 46 mmHg (25-40); VBG SO2 78 % (50-70); VBG TCO2 39 mmol/L (23-33); VBG pCO2 64.6 mmHg (41-51); VBG pH 7.37 (7.32-7.42)
[2020-05-27 02:40] VITALS: BP 117/69; PULSE 87; RESP 19; TEMP 36.7; O2SAT 93
--- NOTE | 2020-05-27 02:41 | CPS ---
x1 Albuterol given to pt. in ED as well
[2020-05-27] MEDS: predniSONE 20 MG Tablet 40 MG PO (02:42)
[2020-05-27 03:31] VITALS: BP 112/72; PULSE 82; RESP 18; O2SAT 94
== END 2020-05-27 03:53 | disposition home or self-care (01) ==
PROVIDERS: Emergency Provider Emergency Medicine; PCP Family Medicine
DX: J44.1 Chronic obstructive pulmonary disease with (acute) exacerbation (principal); I27.20 Pulmonary hypertension, unspecified; I48.91 Unspecified atrial fibrillation; I50.9 Heart failure, unspecified; Z99.81 Dependence on supplemental oxygen; Z79.01 Long term (current) use of anticoagulants; Z79.899 Other long term (current) drug therapy; Z87.891 Personal history of nicotine dependence
CPT/HCPCS: 71045; 80048; 82803; 83880; 84484; 85025; 85610; 93005; 94640; 99251; 99285; A4216; G0463

== ENCOUNTER 2020-06-26 11:10 | Emergency (ER) | payer MEDICARE, MEDICAID, SELFPAY ==
[2020-06-01 12:47] VITALS: BMI 24.5
[2020-06-26] VITALS (9 sets, daily range): BP systolic 109–126; BP diastolic 65–79; PULSE 76–83; RESP 17–25; TEMP 36.9; O2SAT 84–100; BMI 26.7
--- NOTE | 2020-06-26 11:16 | RAD_ITS ---
STUDY: X-RAY CHEST REASON FOR EXAM: Female, 74 years old. Cough, increase SOB, COVID + TECHNIQUE: Single AP portable view of the chest. COMPARISON: Comparison is made with prior study done 05/27/2020. FINDINGS: EKG electrodes are seen. Stable elevation of the left hemidiaphragm. Mild residual increased markings at the lung bases. Stable scarring at the left lung base with blunting of the left costophrenic angle. Normal size heart. Normal mediastinum and betty. Normal visualized pulmonary arteries. There is atherosclerotic calcification of the aortic arch with tortuosity. There are diffuse degenerative changes of the visualized thoracic spine. Normal visualized ribs, clavicles, and shoulders. There is no demonstrated abnormality of the visualized soft tissue structures of the upper abdomen. RAD/Chest 1 View (Portable) IMPRESSION: Improved aeration of the lung bases although residual changes persist most likely representing scarring. Electronically Signed: Nathen Dickinson, at 12:29 EST , Service support ,
--- NOTE | 2020-06-26 11:28 | ED.VIS.GEN ---
History of Present Illness Chief Complaint: Shortness of Breath Informant: Patient Onset: Days Context: Gradual Onset Timing: Continuous Current Severity: Moderate Maximum Severity: Severe Narrative: The patient is a 74-year-old female with medical history significant for COPD who is on 2 L of oxygen, sleep apnea who wears BiPAP at night, atrial fibrillation anticoagulated on Coumadin, who presents to the emergency department increasing shortness of breath. Patient was positive for Covid. She is unsure exactly when she was tested. Today, she had rather significant increase in her shortness of breath. Squad was called. On squad arrival, the patient was in the mid 60s on her supplemental 2 L. She was also found to be tachycardic. She denies any significant symptoms. She states that she just feels generally weak and has had some malaise. She does not think she is had fever. She has had scant cough. She states she is otherwise been doing well. The patient ambulates with a walker. She is in an assisted living at the [facility]. Prior similar symptoms: Yes Recent Illness/Hospitalization: Yes Past Medical History - Allergies and Home Meds Allergies/Adverse Reactions: Allergies amlodipine besylate [From [facility]] Adverse Reaction (Verified 06/26/20 11:27) ANKLE AND LEG EDEMA RESOLVED OFF MED-PER PCP PAPERWORK codeine Adverse Reaction (Verified 06/26/20 11:27) MENTAL STATUS CHANGE lisinopril Adverse Reaction (Verified 06/26/20 11:27) COUGH Primary Care Physician: Tor Lucia MD [Primary Care Provider] - Prior records reviewed: Yes Past Medical History: - - COPD on oxygen, atrial fibrillation, pulmonary hypertension Surgical History: cholecystectomy, hysterectomy, - - tailbone surgery. Smoking Status: Former smoker - Family History Maternal Family History: Family History (Last Reviewed 06/01/20 @ 13:01 by Eveline Jason NP, [employer]) Sister Heart disease Family History: Reports: - - Patient notes a maternal history of dementia and stroke. Paternal Family History: Family History (Last Reviewed 06/01/20 @ 13:01 by Eveline Jason NP, [employer]) Sister Heart disease Family History: Reports: - Sibling Family History: Family History (Last Reviewed 06/01/20 @ 13:01 by Eveline Jason NP, [employer]) Sister Heart disease Family History: Reports: - - Patient notes a sibling specifically her sister with Parkinson's disease and heart disease as well as a brother with Parkinson's disease, asthma and history of blood clots. Review of Systems General: Reports: Malaise. Denies: Chills, Fever, Sweats Eyes: Denies: Visual changes - bilaterally, Diplopia ENT: Denies: Rhinorrhea, Sore throat Cardiovascular: Denies: Chest pain, Palpitations Respiratory: Reports: Dyspnea, Cough. Denies: Dyspnea on exertion Gastrointestinal: Reports: Nausea. Denies: Abdominal pain, Vomiting, Diarrhea, Melena, Hematochezia Genitourinary: Denies: Dysuria, Hematuria, Frequency Musculoskeletal: Denies: Back pain, Extremity Pain Skin: Denies: Rash, Wounds Neurological: Denies: Headache, Weakness, Numbness Physical Exam Vital Signs/Narrative: Vital Signs Temp Pulse Resp BP Pulse Ox 06/26/20 11:11 98.5 F 79 25 H 124/76 H 100 Inital Vital Signs reviewed: Yes General: Well nourished, Well developed, Acute Distress - Mild respiratory distress Head: Normocephalic, Atraumatic Eyes: Perrl, EOMI ENT: Moist mucous membranes, No rhinorrhea Neck: Supple, Nontender Cardiovascular: Regular rate, Regular rhythm, No murmurs Respiratory: No distress, Chest nontender, Wheezing, Diminished Abdomen: Soft, Nontender, Nondistended, Normal bowel sounds Back: Nontender, Normal Inspection Extremities: Nontender, No edema Skin: Normal color, No rash Neurological: Alert, Oriented x3, Cranial nerves II-XII grossly intact, Normal Strength, Normal Sensation Psychological: Normal affect, Normal Mood Diagnostic/Tx/Re-eval Chest X-Ray - ED: 1 View, Read by ED Physician, Normal, Heart, Mediastinum, Chronic Changes Clinical Impression(s) from Imaging Studies Chest X-Ray 06/26/20 11:16 IMPRESSION: Improved aeration of the lung bases although residual changes persist most likely representing scarring. Electronically Signed: Nathen Dickinson, at 12:29 EST , Service support , Abnormal Lab Results 06/26/20 06/26/20 06/26/20 11:30 11:30 11:30 WBC RBC Hgb Hct MCV MCH MCHC RDW Std Deviation RDW Coeff of Laura Plt Count MPV Immature Gran % (Auto) Neut % (Auto) Lymph % (Auto) Ida % (Auto) Eos % (Auto) Baso % (Auto) Absolute Neuts (auto) Absolute Lymphs (auto) Nucleated RBC % PT 18.1 H INR 1.6 D-Dimer Quant (PE/DVT) 0.55 H* Sodium 140 Potassium 4.0 Chloride 99 Carbon Dioxide 41.0 H Anion Gap 0 L BUN 13 Creatinine 0.52 L Estim Creat Clear Calc 43.07 Est GFR (MDRD) Af Amer 146 Est GFR (MDRD) Non-Af 120 BUN/Creatinine Ratio 24.8 H Glucose 108 H Lactic Acid Calcium 9.0 Total Bilirubin 0.80 AST 13 L ALT 17 Alkaline Phosphatase 157 H Troponin I < 0.015 B-Natriuretic Peptide 569.7 H Total Protein 7.5 Albumin 3.5 Globulin 4.0 Albumin/Globulin Ratio 0.9 06/26/20 06/26/20 11:30 11:30 WBC 8.0 RBC 4.46 Hgb 11.5 L Hct 39.6 MCV 88.8 MCH 25.8 L MCHC 29.0 L RDW Std Deviation 52.8 H RDW Coeff of Laura 16.1 H Plt Count 271 MPV 12.1 H Immature Gran % (Auto) 1.400 H Neut % (Auto) 72.8 H Lymph % (Auto) 14.9 L Ida % (Auto) 9.9 Eos % (Auto) 0.4 Baso % (Auto) 0.6 Absolute Neuts (auto) 5.8 Absolute Lymphs (auto) 1.19 Nucleated RBC % 0 PT INR D-Dimer Quant (PE/DVT) Sodium Potassium Chloride Carbon Dioxide Anion Gap BUN Creatinine Estim Creat Clear Calc Est GFR (MDRD) Af Amer Est GFR (MDRD) Non-Af BUN/Creatinine Ratio Glucose Lactic Acid 0.5 Calcium Total Bilirubin AST ALT Alkaline Phosphatase Troponin I B-Natriuretic Peptide Total Protein Albumin Globulin Albumin/Globulin Ratio - Medical Decision Making Patient presents with shortness of breath. She was reportedly significantly hypoxic in the mid 60s. She was on a nonrebreather. She was quickly transferred back to her [facility]. She did maintain her sats in the lower 90s. When the patient fall asleep, she would have apneic episodes and pulse ox in the low 80s. She was transitioned to 3 L nasal cannula. Her Covid was positive. The patient was given Decadron. Labs are relatively unremarkable. There is no significant abnormalities. Her cardiac enzymes are normal. Chest x-ray is actually improved from prior chest x-ray that she has had in the past. On reevaluation, the patient is resting comfortably. I did discuss her case with Dr. Pro Farrell, on-call for Dr. Lucia. She is only on slight increased in oxygen, is resting comfortably, has unremarkable chest x-ray, I do feel that she is safe for discharge back to her facility. They will use her BiPAP more frequently. She will be discharged. Impression 1. COVID-19 2. Hypoxia ED Disposition - Plan for ED Patient: Instructions: Coronavirus Disease 2019 (COVID-19): Overview Prescriptions: Dexamethasone [Decadron] 6 mg PO DAILY 5 Days #5 tab Prescription Printed Referrals: Tor Lucia MD [Primary Care Provider] -
[2020-06-26] MEDS: dexAMETHasone 10 MG/ML Vial 6 MG IV (11:35)
[2020-06-26] MEDS: Acetaminophen 500 MG Tablet 1000 MG PO (11:35)
[2020-06-26 11:44] LABS: Absolute Lymphocyte Count 1.19 X10^3/uL (0.83-4.51); Absolute Neutrophil Count 5.8 X10^3/uL (2.0-7.7); Basophil# 0.05 X10^3/uL; Basophil% 0.6 % (0-1); Eosinophil# 0.03 X10^3/uL; Eosinophils% 0.4 % (0-5); Hematocrit 39.6 % (37-47); Hemoglobin 11.5 g/dL (12.0-15.0); Lymphocyte # 1.19 X10^3/ul (4.0); Lymphocyte % 14.9 % (19-41); Mean Corpuscular Hgb 25.8 pg (27.0-32.0); Mean Corpuscular Volume 88.8 fL (81-99); Mean Platelet Vol. 12.1 fl (6.2-12.0); Monocyte# 0.79 X10^3/uL; Monocyte% 9.9 % (0-10); NRBC Flagged by Analyzer 0 % (0-5); Neutrophil % 72.8 % (47-70); Platelet Count 271 K/mm3 (150-450); RBC Distribution Width CV 16.1 % (11.6-14.6); RBC Distribution Width SD 52.8 fl (35.1-43.9); Red Blood Count 4.46 M/mm3 (4.2-5.4)
[2020-06-26 11:55] LABS: International Normalized Ratio 1.6; Prothrombin Time (Protime)PT. 18.1 SECONDS (11.7-14.9)
--- NOTE | 2020-06-26 12:01 | NURSING ---
COVID IS INVALID. NEEDS REDRAWN
[2020-06-26 12:02] LABS: D-Dimer Quantitative (DVT/PE) 0.55 FEU/ug/m (0.27-0.49)
[2020-06-26 12:05] LABS: BNP,B-Type NATRIURETIC PEPTIDE 569.7 pg/mL (0-100)
[2020-06-26 12:08] LABS: Lactic Acid 0.5 mmol/L (0.4-1.9)
[2020-06-26 12:28] LABS: ALB/GLOB Ratio 0.9 RATIO (0.9-2.4); AST(SGOT) 13 U/L (15-37); Alanine Aminotransfer ALT/SGPT 17 U/L (13-56); Albumin, Serum 3.5 g/dL (3.2-5.0); Alkaline Phosphatase 157 U/L (45-117); Anion Gap 0 (5-15); BUN 13 mg/dL (7-18); BUN/Creat Ratio 24.8 RATIO (10-20); Chloride 99 mmol/L (98-107); Creatinine, Serum 0.52 mg/dL (0.55-1.02); EST Glomerular Filtration Rate 120 mL/min (>60); Est Glom Filt Rate - Afr Amer 146 mL/min (>60); Estimated Creatinine Clearance 43.07 ml/min; Glucose 108 mg/dL (74-106); Protein, Total 7.5 g/dL (6.4-8.2); Sodium Level 140 mmol/L (136-145)
--- NOTE | 2020-06-26 12:56 | NURSING ---
CALLED [facility], ETA IS 60 MIN
--- NOTE | 2020-06-26 13:00 | ED.RN ---
Called report to Sowmya beltran at the [facility]. Updated on the increase of oxygen to 4L and the steroid prescription. Denies further questions.
--- NOTE | 2020-06-26 13:06 | ED.RN ---
Daughter Irene called and updated on patient and her discharge back to the [facility].
== END 2020-06-26 14:44 | disposition home or self-care (01) ==
PROVIDERS: Emergency Provider Emergency Medicine; PCP Family Medicine
DX: U07.1 COVID-19 (principal); R09.02 Hypoxemia; I27.20 Pulmonary hypertension, unspecified; I48.91 Unspecified atrial fibrillation; G47.30 Sleep apnea, unspecified; J44.9 Chronic obstructive pulmonary disease, unspecified; Z88.5 Allergy status to narcotic agent; Z99.81 Dependence on supplemental oxygen; Z79.01 Long term (current) use of anticoagulants; Z79.899 Other long term (current) drug therapy; Z87.891 Personal history of nicotine dependence
CPT/HCPCS: 71045; 80053; 83605; 83880; 84484; 85025; 85379; 85610; 87040; 87426; 96374; 99285; A4216

== ENCOUNTER 2020-08-20 14:51 | Inpatient (IN) | payer MEDICARE, MEDICAID, SELFPAY ==
[2020-06-26 11:11] VITALS: BMI 26.7
[2020-08-20] VITALS (13 sets, daily range): BP systolic 106–123; BP diastolic 54–98; PULSE 57–140; RESP 14–31; TEMP 36.4–37.1; O2SAT 92–98; BMI 22.2; BMI 22.3; BMI 21.6
--- NOTE | 2020-08-20 15:12 | CT_ITS ---
STUDY: CT BRAIN WITHOUT CONTRAST REASON FOR EXAM: Female, 74 years old. INCREASED CONFUSION, elevated WBC, FATIGUE RADIATION DOSAGE (If Supplied By Facility): CTDIvol = ( 44.99 ) mGy, DLP = ( 796.11 ) mGycm TECHNIQUE: Transaxial CT imaging of the brain was performed without administration of intravenous contrast material. Individualized dose optimization techniques were used for this CT. COMPARISON: 09/04/2019 FINDINGS: Normal soft tissue structures. Normal calvarium. There is mild cerebral atrophy with widening of the extra-axial spaces and ventricular dilatation. Normal white matter tracts of the cerebral hemispheres. Normal basal ganglia and thalami. Normal brainstem. Normal cerebellum. There is no intracranial hemorrhage. There are no findings of an acute ischemic infarction. There is minimal opacification of the left sphenoid sinus consistent with a history of sinusitis. CT/Brain/Head without Contrast IMPRESSION: Chronic involutional changes of the brain. Electronically Signed: Debbie Swain MD at 16:18 EST Tel , Service support ,
--- NOTE | 2020-08-20 15:12 | EKG12_ITS ---
Test Reason : CONFUSION Blood Pressure : / mmHG Vent. Rate : 127 BPM Atrial Rate : 131 BPM P-R Int : 000 ms QRS Dur : 070 ms QT Int : 312 ms P-R-T Axes : 000 048 -68 degrees QTc Int : 453 ms Atrial fibrillation Nonspecific ST and T wave abnormality Abnormal ECG Confirmed by MADISON BHAT, URSULA ([id number]), scientific publications editor DIANA AHUMADA ([id number]) on 08/21/2020 11:21:16 AM Referred By: BALWINDER Confirmed By:URSULA WALLACE MD
--- NOTE | 2020-08-20 15:15 | ED.VISSUMM ---
- ER Visit Summary Date of Service: 08/20/20 Chief Complaint: [Increased confusion] History of Present Illness: The patient is a 74 F [[place] to the emergency department complaint of increased confusion over the last several weeks. Patient is currently at an assisted living facility and brought in by her daughter today. Patient has had increased confusion since returning from an admission at [facility] where she was being treated for a urinary tract infection. Patient has subsequently since had a urinalysis apparently that was unremarkable. Patient also has history of COPD and wears 2 L of home O2 at all times. There was concern that she may be retaining CO2 being that she has been falling asleep easily and because of the increased confusion. She is had no falls or head injuries. She denies any headache or chest pain. Patient does complain of dyspnea that is chronic. Patient did have Covid in June and recovered and also since has had Covid vaccination. Patient has history of pulmonary hypertension, PE, A. fib, hypertension, cholesterol, COPD, and history of encephalopathy. Patient is on warfarin.] Per daughter patient has been complaining of nausea and she does admit to some abdominal discomfort. Patient has had her gallbladder removed and she had a hysterectomy. Physical Examination: [HEENT-PERRLA, EOMI. Cranial nerves II through XII grossly intact. TMs clear. Mucous membranes moist. No adenopathy. Cardiovascular-regular rate and rhythm without murmur or ectopy Lungs-sounds bilaterally with some faint expiratory wheezes noted. No accessory muscle use or retractions noted. Abdomen-normoactive bowel sounds, soft, nontender, no rebound or rigidity, no peritoneal signs. Extremities-intact ?4, normal range of motion, normal pulses, atraumatic] Test Results: [EKG obtained arrival showed atrial fibrillation with a rapid ventricular response of 127 bpm. Patient had some nonspecific ST changes noted. CBC with differential showed a white count 22.9, hemoglobin 15, hematocrit 48, plates 188. Chemistries unremarkable. BUN was 31 and creatinine 0.59. INR was 2.0. Troponin less than 0.015. ABG obtained showed a pH of 7.44 with a CO2 of 31 she was at 94% on 2 L nasal cannula. Chest x-ray 1 view obtained interpreted by myself as subtle increased markings bilateral bases. Radiology in agreement felt the exam appeared stable nothing acute. CT scan of the brain without contrast showed chronic involutional changes. Blood cultures ordered and pending. Urinalysis ordered and pending. CT scan of the abdomen pelvis ordered and results will be pending] lactic acid level ordered and pending. Emergency Department Course and Treatment: [IV line established on arrival. Patient was ordered a liter normal same fluid bolus. Patient was started empirically on Zosyn 4.5 g IV.] Treatment Plan: [Patient will likely require admission as etiology at this time is unclear of her leukocytosis and increased confusion.] Disposition: [Pending] Impression: [Confusion Leukocytosis] This note was generated with [employer] dictation software. It may contain incorrect words, spelling, and punctuation that were not noted in review of the chart prior to signing ED Disposition - Plan for ED Patient: Referrals: Tor Lucia MD [Primary Care Provider] -
[2020-08-20 15:49] LABS: Absolute Lymphocyte Count 2.24 X10^3/uL (0.83-4.51); Absolute Neutrophil Count 18.6 X10^3/uL (2.0-7.7); Basophil# 0.08 X10^3/uL; Basophil% 0.3 % (0-1); Eosinophil# 0.11 X10^3/uL; Eosinophils% 0.5 % (0-5); Hematocrit 47.8 % (37-47); Hemoglobin 14.8 g/dL (12.0-15.0); Lymphocyte # 2.24 X10^3/ul (4.0); Lymphocyte % 9.8 % (19-41); Mean Corpuscular Hgb 26.8 pg (27.0-32.0); Mean Corpuscular Volume 86.4 fL (81-99); Monocyte# 1.33 X10^3/uL; Monocyte% 5.8 % (0-10); NRBC Flagged by Analyzer 0 % (0-5); Neutrophil # 18.62 X10^3/uL (2.7-7.7); Neutrophil % 81.5 % (47-70); Platelet Count 188 K/mm3 (150-450); RBC Distribution Width CV 18.7 % (11.6-14.6); RBC Distribution Width SD 57.2 fl (35.1-43.9); Red Blood Count 5.53 M/mm3 (4.2-5.4); White Blood Count 22.9 K/mm3 (4.4-11.0)
--- NOTE | 2020-08-20 16:00 | RAD_ITS ---
STUDY: X-RAY CHEST REASON FOR EXAM: Female, 74 years old. Increased confusion, wbc elevated, fatigue, and worried co2 is elevated. TECHNIQUE: Single frontal view of the chest. COMPARISON: 06/26/2020 FINDINGS: There is no new focal consolidation. There are stable slightly prominent interstitial markings. Normal size heart. Normal mediastinum and betty. Normal visualized pulmonary arteries. There is atherosclerotic calcification of the aortic arch with tortuosity. Normal visualized thoracic spine. Normal visualized ribs, clavicles, and shoulders. There is no demonstrated abnormality of the visualized soft tissue structures of the upper abdomen. RAD/Chest 1 View (Portable) IMPRESSION: Grossly stable examination demonstrating no acute cardiopulmonary process. Electronically Signed: Debbie Swain MD at 16:24 EST Tel , Service support ,
[2020-08-20 16:06] LABS: Allen Test Positive; Base Excess 6 mmol/L (-2 to +2); Bicarbonate 30.1 mmol/L (22-26); Blood Gas Specimen Type ART; O2 Delivery Device Cannula; PO2 70 mmHG (75-100); SITE R Radial; SO2 94 % (95-99); Total Carbon Dioxide 31 mmol/L; pCO2 43.9 mmHg (35-45); pH 7.44 (7.35-7.45)
[2020-08-20 16:10] LABS: Anion Gap 2 (5-15); BUN 31 mg/dL (7-18); BUN/Creat Ratio 52.7 RATIO (10-20); Calcium,Total 8.9 mg/dL (8.5-10.1); Chloride 103 mmol/L (98-107); Creatinine, Serum 0.59 mg/dL (0.55-1.02); EST Glomerular Filtration Rate 106 mL/min (>60); Est Glom Filt Rate - Afr Amer 128 mL/min (>60); Glucose 101 mg/dL (74-106); Potassium 3.9 mmol/L (3.5-5.1); Sodium Level 139 mmol/L (136-145)
[2020-08-20 16:13] LABS: Prothrombin Time (Protime)PT. 22.3 SECONDS (11.7-14.9)
--- NOTE | 2020-08-20 16:43 | CT_ITS ---
STUDY: CT ABDOMEN AND PELVIS WITHOUT CONTRAST REASON FOR EXAM: Female, 74 years old. ABD PAIN/elevated WBC/FATIGUE RADIATION DOSAGE (If Supplied By Facility): CTDIvol = ( 6.07 ) mGy, DLP = ( 321.43 ) mGycm TECHNIQUE: Transaxial images were obtained from the dome of the diaphragm to the symphysis pubis without oral contrast, and without intravenous contrast. Sagittal and coronal images were reconstructed. Individualized dose optimization techniques were used for this CT. COMPARISON: Chest CT dated 11/11/[address] of the abdomen and pelvis dated 08/22/2019 FINDINGS: Motion artifact degrades anatomic detail. There are new tree-in-bud opacities within the right middle and lower lobes. There is stable atelectasis within the lingula. There are coronary artery calcifications. The lack of intravenous contrast limits evaluation of solid visceral organs. Normal liver. There is non-visualization of the gallbladder, which may be secondary to either contraction or a prior cholecystectomy. Normal spleen. Normal pancreas. Normal bilateral adrenal glands. Normal right kidney. Normal left kidney. Normal visualized stomach. Normal small intestine. There are multiple colonic diverticula consistent with diverticulosis. The appendix is visualized and appears normal. There is diffuse atherosclerotic calcification of the abdominal aorta, without a demonstrated aneurysm. Normal inferior vena cava. Normal retroperitoneum. Normal urinary bladder. Normal abdominal wall. There are diffuse degenerative changes of the visualized thoracic and lumbar spine. There is a levoscoliosis of the thoracolumbar spine. There is a stable anterior compression deformity of T11. There is a stable superior endplate deformity of L1. There is a stable sclerotic focus within the left proximal femur which may reflect an enchondroma. CT/Abdomen/Pelvis without Cont IMPRESSION: New tree-in-bud opacities within the right middle and lower lobes may be secondary to an infectious process. Atherosclerosis. Colonic diverticulosis. Degenerative changes of the visualized thoracic and lumbar spine. Electronically Signed: Debbie Swain MD at 17:46 EST Tel , Service support ,
[2020-08-20 17:11] LABS: Mucous, Urine 0 SEEN /hpf (<or=2+); Red Blood Cells-Urine 0 SEEN /hpf (0-5); Squamous Epithelial Cells - UA 0 SEEN /hpf (5-10)
[2020-08-20 17:15] LABS: Color, Urine Yellow (Yellow); Glucose, Dipstick Normal (Normal); Ketone-Dipstick Negative (Negative); Leukocyte Esterase-Dipstick 25 /ul (Negative); Nitrite-Dipstick Positive (Negative); Occult Blood-Urine 10 /ul (Negative); Protein-Dipstick Negative (Negative); Urine Bilirubin Dipstick Negative (Negative); Urine Clarity Clear (Clear); Urine Urobilinogen Normal (Normal)
[2020-08-20 17:20] LABS: Bacteria 1+ /hpf (None Seen)
[2020-08-20 17:21] LABS: White Blood Cells 0-5 SEEN /hpf (0-5)
[2020-08-20] MEDS: 0.9% Normal Saline 1,000 ML 999 ML IV (17:44)
[2020-08-20 17:59] LABS: Lactic Acid 1.1 mmol/L (0.4-1.9)
--- NOTE | 2020-08-20 18:51 | PCM.HP.STD ---
Problem List (1) Pneumonia Status: Inactive Qualifiers: Pneumonia type: due to unspecified organism Laterality: right Lung location: unspecified part of lung Qualified Code(s): J18.9 - Pneumonia, unspecified organism History of Present Illness Date of Admission: 08/20/20 Chief Complaint: Confusion The patient is a 74 year old F past medical history of chronic atrial fibrillation, hypertension, chronic heart failure with preserved EF, history of DVT/PE, who comes in from a long term with complaints of confusion ongoing for couple of days. Patient was recently admitted to [facility] 2 weeks ago and treated for acute UTI. She tested positive for Covid in June 2020. She subsequently tested positive for Covid a couple of weeks ago. Repeat Covid testing the same admission was negative. She has received both vaccinations. Her current dose of vaccination was 2 weeks ago. Patient was seen in the emergency department with her daughter. She is alert oriented x3. Complains of feeling slightly better since she came in. Denied any dizziness or chest pain or palpitations. Vitals in the ED showed temperature of 97.7F, heart rate 57, blood pressure 123/54, respiratory rate 22, SPO2 is 96% on room air. WBC count of 22.9, hemoglobin 14.8, platelet count 188, INR 2.0, ABGs are unremarkable. BMP is also unremarkable. Lactic acid is 1.1. Troponins are negative. UA is clear, nitrite positive, leukocyte esterase 25. CT of the brain showed chronic involutional changes. Chest x-ray shows no acute cardiopulmonary process. CT of the abdomen and pelvis shows new tree-in-bud opacities within the right middle and lower lobes Past Medical History Past Medical History (Chronic Problems): Chronic Problems (Last Reviewed 06/01/20 @ 13:01 by Eveline Jason ENVIRONMENTAL HEALTH TECHNOLOGIST, ENVIRONMENTAL HEALTH TECHNOLOGIST-C) Back pain (Chronic) Compression fracture (Chronic) Other intervertebral disc degeneration, lumbar region (Chronic) Spinal stenosis, lumbar region with neurogenic claudication (Chronic) Spondylosis without myelopathy or radiculopathy, lumbar region (Chronic) Lumbago with sciatica, right side (Chronic) Unspecified abnormalities of gait and mobility (Chronic) Compression fracture of thoracic vertebra with routine healing (Chronic) Anxiety (Chronic) ANKUSH (obstructive sleep apnea) (Chronic) Diastolic dysfunction (Chronic) Chronic hypoxemic respiratory failure (Chronic) Chronic anticoagulation (Chronic) Former tobacco use (Chronic) Depression (Chronic) Pulmonary hypertension (Chronic) History of recurrent deep vein thrombosis (DVT) (Chronic) History of pulmonary embolism (Chronic) History of cardioversion (Chronic) January of 2018.....HR not controlled with exertion while in AF on Beta donna and cardizem. Converted to NSR with cardioversion HTN (hypertension) (Chronic) Iron deficiency anemia (Chronic) Chronic diastolic CHF (congestive heart failure) (Chronic) Atrial fibrillation with RVR (Chronic) Dyslipidemia (Chronic) COPD (chronic obstructive pulmonary disease) (Chronic) Medical History: Medical History (Last Reviewed 06/01/20 @ 13:01 by Eveline Jason ENVIRONMENTAL HEALTH TECHNOLOGIST, ENVIRONMENTAL HEALTH TECHNOLOGIST-C) Dyslipidemia (Chronic) E78.5 COPD (chronic obstructive pulmonary disease) (Chronic) J44.9 Atrial fibrillation I48.91 Heart failure with preserved ejection fraction I50.30 Group 2. EF 65% 12/05/17 Essential hypertension I10 History of DVT (deep vein thrombosis) Z86.718 History of pulmonary embolus (PE) Z86.711 Pulmonary HTN I27.20 Venous insufficiency I87.2 Allergies amlodipine besylate [From [facility]] Adverse Reaction (Verified 08/20/20 14:52) ANKLE AND LEG EDEMA RESOLVED OFF MED-PER PCP PAPERWORK codeine Adverse Reaction (Verified 08/20/20 14:52) MENTAL STATUS CHANGE lisinopril Adverse Reaction (Verified 08/20/20 14:52) COUGH Home Medications: Ambulatory Orders Medication Instructions Recorded Ergocalciferol [Vitamin D] 50,000 unit PO TH 07/19/15 Citalopram Hydrobromide 40 mg PO DAILY 05/23/18 [Citalopram HBr] Budesonide 2 ml IH BID 01/17/19 Omeprazole 20 mg PO DAILY 01/17/19 Vit A/Vit C/Vit E/Zinc/Copper 1 tab PO BID 01/17/19 [Preservision Areds Tablet] Buspirone HCl 5 mg PO QHS 05/07/19 Sennosides/Docusate Sodium [Senna 2 tab PO QHS 08/22/19 Plus 8.6-50 mg Tablet] traMADol [Ultram] 50 mg PO TID 08/22/19 gabapentin 100 mg capsule 100 mg PO QHS 08/28/19 Furosemide [Lasix] 40 mg PO DAILY #30 09/09/19 Linaclotide [Linzess] 72 mcg PO DAILY 04/03/20 Ipratropium/Albuterol Sulfate 3 ml IH BID 04/04/20 [Duoneb] Metoprolol Tartrate [Lopressor 25 mg PO TID 05/27/20 (beta donna)] Warfarin [Coumadin ([facility])] 2.5 mg PO DAILY 06/26/20 AcetaAZOLAMIDE [Diamox] 250 mg PO BID 08/20/20 Cyanocobalamin (Vitamin B-12) 500 mcg PO DAILY 08/20/20 [Vitamin B-12] Diltiazem HCl 120 mg PO 4X/DAY 08/20/20 Enoxaparin Sodium [Lovenox] 60 mg SQ BID 08/20/20 Lactobacillus Acidophilus 1 cap PO DAILY 08/20/20 [Acidophilus] Lactose-Reduced Food [Boost Breeze] 237 ml PO BID 08/20/20 Lorazepam 0.5 mg PO QHS 08/20/20 Potassium Chloride [Klor-Con M20] 20 meq PO DAILY 08/20/20 Warfarin Sodium 1 mg PO DAILY 08/20/20 Surgical History: Surgical History (Last Reviewed 06/01/20 @ 13:01 by Eveline Jason NP, ENVIRONMENTAL HEALTH TECHNOLOGIST-C) History of cholecystectomy Z90.49 History of total hysterectomy Z90.710 tailbone surgery Surgical History: cholecystectomy, hysterectomy, - - tailbone surgery. Psychiatric History: Anxiety, Depression COUNSELING PSYCHOLOGIST History: No pertinent COUNSELING PSYCHOLOGIST history Lives: Intermediate Smoking Status: Former smoker Tobacco Use: Non-smoker Alcohol: None Drugs: None - *Family History Maternal Family History: Family History (Last Reviewed 06/01/20 @ 13:01 by Eveline Jason NP, ENVIRONMENTAL HEALTH TECHNOLOGIST-C) Sister Heart disease History Items: No pertinent history Paternal Family History: Family History (Last Reviewed 06/01/20 @ 13:01 by Eveline Jason NP, ENVIRONMENTAL HEALTH TECHNOLOGIST-C) Sister Heart disease History Items: No pertinent history Sibling Family History: Family History (Last Reviewed 06/01/20 @ 13:01 by Eveline Jason NP, ENVIRONMENTAL HEALTH TECHNOLOGIST-C) Sister Heart disease History Items: Heart Disease Review of Systems Constitutional: Reports: Anorexia, Chills, Fever, Malaise, Weakness, Fatigue Eyes: Denies: Blurred vision, Cataracts, Conjunctivae Inflammation, Pain, Redness, Vision Change HEENT: Denies: Difficulty Hearing, Difficulty Swallowing, Head Aches, Hearing Changes, Sinus Congestion, Sinus Drainage Cardiovascular: Denies: Chest Pain, Claudication, Chest Pressure, Chest Tightness, Orthopnea, Palpitations, Paroxysmal Noc. Dyspnea Respiratory: Denies: Cough, Shortness of Breath, Shortness of breath at rest, Shortness of breath upon exertion, Sputum production Gastrointestinal: Denies: Abdominal Pain, Nausea, Vomiting Genitourinary: Denies: Dysuria Musculoskeletal: Denies: Joint Pain, Joint stiffness, Joint swelling, Joint Tenderness Skin: Denies: Rash, Wounds Neurological: Denies: Numbness, Tingling, Focal weakness Psychiatric: Denies: Anxiety, Depression, Homicidal Ideations, Suicidal Ideations Hematologic/ Lymphatic: Denies: Easy Bruising, Easy Bleeding VTE Information - Inpt Only VTE Present on Admission: No VTE Pharm Prophylaxis ordered?: Yes - Physical Exam Vitals/I&O's: Vital Signs Temp Pulse Resp BP Pulse Ox 98.3 F 130 H 22 H 109/81 H 92 08/20/20 18:47 08/20/20 18:47 08/20/20 18:47 08/20/20 18:47 08/20/20 18:47 Oxygen Flow Rate (L/min) 2 Oxygen Delivery Method Nasal Cannula Weight: 62.596 kg Body Mass Index (BMI) 22.2 Finger Stick Blood Glucose 166 Intake and Output for Last 24 Hours 08/18/20 08/19/20 08/20/20 23:59 23:59 23:59 Intake Total 100 / 100 Balance 100 / 100 General: Alert, Oriented x3, Cooperative, No apparent distress, - - appears ill, on 2 L of oxygen HEENT: Atraumatic, PERRLA, EOMI, Normocephalic Oral: Moist Mucosa Neck: Supple Lungs: Clear to auscultation, Normal air movement Cardiovascular: Regular rate, Regular Rhythm, Normal S1, Normal S2, No murmurs Abdomen: Bowel Sounds Present, Soft, Non Tender, Non-Distended, No Hepato-splenomegaly Extremities: Edema - Bilateral pedal edema +1?2 Skin: No rashes Musculoskeletal: No Tenderness to Palpation of Joints or Extremities Lymphatic: No Cervical, Supraclavicular, or Inguinal Adenopathy Neurological: Cranial nerves II-XII grossly intact, Neuro grossly intact Psych/Mental Status: Normal Affect, Appropriate Microbiology Past 72 Hours 08/20/20 18:10 Mucosa - Nose SARS-CoV-2 Antigen (Rapid) - Final Laboratory Results 08/20/20 15:30: WBC 22.9 H, RBC 5.53 H, Hgb 14.8, Hct 47.8 H, MCV 86.4, MCH 26.8 L, MCHC 31.0 L, RDW Std Deviation 57.2 H, RDW Coeff of Alura 18.7 H, Plt Count 188, MPV TNP, Immature Gran % (Auto) 2.100 H, Neut % (Auto) 81.5 H, Lymph % (Auto) 9.8 L, [place] % (Auto) 5.8, Eos % (Auto) 0.5, Baso % (Auto) 0.3, Absolute Neuts (auto) 18.6 H, Absolute Lymphs (auto) 2.24, Nucleated RBC % 0 08/20/20 15:30: Sodium 139, Potassium 3.9, Chloride 103, Carbon Dioxide 34.0 H, Anion Gap 2 L, BUN 31 H, Creatinine 0.59, Estim Creat Clear Calc 44.80, Est GFR (MDRD) Af Amer 128, Est GFR (MDRD) Non-Af 106, BUN/Creatinine Ratio 52.7 H, Glucose 101, Calcium 8.9, Troponin I < 0.015 08/20/20 15:30: PT 22.3 H, INR 2.0 08/20/20 15:55: Specimen Type ART, Sample Site R Radial, pH 7.44, Bicarbonate Actual 30.1 H, Total CO2 31, Base Excess 6 H, O2 Saturation 94 L, ABG pCO2 43.9, ABG pO2 70 L, Mj Test Positive, O2 Delivery Device Cannula, Liter Flow 2.0 08/20/20 16:50: Lactic Acid 1.1 08/20/20 16:55: Urine Color Yellow, Urine Clarity Clear, Urine pH 7.0, Ur Specific [place] 1.010, Urine Protein Negative, Urine Glucose (UA) Normal, Urine Ketones Negative, Urine Occult Blood 10 H, Urine Nitrite Positive H, Urine Bilirubin Negative, Urine Urobilinogen Normal, Ur Leukocyte Esterase 25 H, Urine RBC 0 SEEN, Urine WBC 0-5 SEEN, Ur Squamous Epith Cells 0 SEEN, Urine Bacteria 1+, Urine Mucus 0 SEEN Assessment/Plan All Active Problems (Last Reviewed 06/01/20 @ 13:01 by Eveline Jason ENVIRONMENTAL HEALTH TECHNOLOGIST, ENVIRONMENTAL HEALTH TECHNOLOGIST-C) Paroxysmal atrial fibrillation (Acute) 1. Acute metabolic encephalopathy likely secondary to pneumonia Patient was alert oriented except for time -could not say what year we are in Otherwise looks stable We will continue to monitor 2. Pneumonia, noted on CT of the abdomen and pelvis, likely healthcare acquired We will get chest x-ray to document We will get urine streptococcal and Legionella antigen Continue on IV Zosyn started in the ED; add IV vancomycin Will also get stat records from [facility] 3. A. fib with RVR, history of chronic atrial fibrillation/tachybradycardia syndrome, Patient was due for pacemaker placement in [facility] but that has to be postponed We will continue on home Cardizem, continue to monitor vital If heart rate continues not to be controlled, would start on Cardizem drip INR is therapeutic, will continue Coumadin, trend INR a.m. 4. COPD, not in acute exacerbation 5. Heart failure with preserved EF, chronic, EF of 65%/pulmonary hypertension Not in acute exacerbation, 6. History of DVT/PE, on Coumadin 7. DVT prophylaxis -on Coumadin 8. CODE STATUS: DNR CCA, no intubation I discussed and explained in details the various types of CODE STATUS-full code, DNR CCA, DNR CC. Patient chose to be DNR CCA. She does not want any aggressive measures in the event of a cardiopulmonary arrest. Time spent discussing CODE STATUS 16 minutes Inpatient E&M: 56081 Init Hosp L3 Procedures: 10177 Advncd Care Plan 30 Min
[2020-08-20] MEDS: 0.9% Normal Saline 1,000 ML 75 ML IV (21:20)
[2020-08-20] MEDS: dilTIAZem 25 MG/5 ML Vial 10 MG IV BOLUS (21:22)
[2020-08-20] MEDS: Vancomycin IV 1,000 MG/200 ML BAG 200 MG IV (21:27)
[2020-08-20] MEDS: busPIRone 5 MG Tablet PO (21:39)
[2020-08-20] MEDS: dilTIAZem 60 MG Tablet 120 MG PO (21:39)
[2020-08-20] MEDS: Metoprolol Tartrate 25 MG Tablet PO (21:39)
[2020-08-20] MEDS: AcetaZOLAMIDE 250 MG Tablet PO (21:39)
[2020-08-20] MEDS: Gabapentin 100 MG Capsule PO (21:40)
[2020-08-20] MEDS: Senna/Docusate Sodium 1 Tablet 2 TABLET PO (21:40)
[2020-08-20] MEDS: Budesonide Respules 0.5 MG/2 ML AMPUL.NEB. INHALATION (22:01)
--- NOTE | 2020-08-20 23:42 | PCM.RX.CS ---
Consult Pharmacy has been consulted to manage selected antiobiotic: Vancomycin Type of Consult: New start Suspected Infection: Pneumonia Prior Doses of Antibiotics Received/Current Regimen: Medications Vancomycin HCl 500 mg in 100 mls @ 100 mls/hr IV Q12H CAIO Discontinued Medications Vancomycin HCl (Vancomycin) 1,000 mg in 200 mls @ 200 mls/hr IV X1 ONE Stop: 08/20/20 21:59 Last Admin: 08/20/20 22:30 Dose: Infused Labs: Sodium 139 mmol/L (136-145) 08/20/20 15:30 Potassium 3.9 mmol/L (3.5-5.1) 08/20/20 15:30 Chloride 103 mmol/L (98-107) 08/20/20 15:30 Carbon Dioxide 34.0 mmol/L (21.0-32.0) H 08/20/20 15:30 Anion Gap 2 (5-15) L 08/20/20 15:30 BUN 31 mg/dL (7-18) H 08/20/20 15:30 Creatinine 0.59 mg/dL (0.55-1.02) 08/20/20 15:30 Est GFR (MDRD) Af Amer 128 mL/min (>60) 08/20/20 15:30 Est GFR (MDRD) Non-Af 106 mL/min (>60) 08/20/20 15:30 BUN/Creatinine Ratio 52.7 RATIO (10-20) H 08/20/20 15:30 Glucose 101 mg/dL (74-106) 08/20/20 15:30 Microbiology: Microbiology 08/20/20 18:10 Mucosa - Nose SARS-CoV-2 Antigen (Rapid) - Final Weight used for dosin.7 kg Estimated Creatinine Clearance: 44.8 Goal Trough: 15-20 mcg/mL Pharmacy Plan for Drug Dosing: Pharmacy Service will continue to monitor and adjust dosing as required. Follow-Up Labs: Trough Vancomycin Labs to be done on [date and time ordered]: 08/22/20 @0900
[2020-08-21] VITALS (19 sets, daily range): BP systolic 103–118; BP diastolic 61–86; PULSE 81–125; RESP 14–22; TEMP 36.4–37.1; O2SAT 94–99
[2020-08-21] MEDS: Metoprolol Tartrate 25 MG Tablet PO ×3 (05:02→21:15)
[2020-08-21 06:03] LABS: Absolute Lymphocyte Count 1.63 X10^3/uL (0.83-4.51); Absolute Neutrophil Count 15.8 X10^3/uL (2.0-7.7); Basophil# 0.05 X10^3/uL; Basophil% 0.3 % (0-1); Eosinophil# 0.18 X10^3/uL; Eosinophils% 0.9 % (0-5); Hematocrit 36.9 % (37-47); Hemoglobin 11.9 g/dL (12.0-15.0); Lymphocyte # 1.63 X10^3/ul (4.0); Lymphocyte % 8.5 % (19-41); Mean Corp Hgb Conc 32.2 g/dL (32-36); Mean Corpuscular Hgb 28.3 pg (27.0-32.0); Mean Corpuscular Volume 87.6 fL (81-99); Mean Platelet Vol. 13.6 fl (6.2-12.0); Monocyte# 1.29 X10^3/uL; Monocyte% 6.7 % (0-10); NRBC Flagged by Analyzer 0 % (0-5); Neutrophil # 15.82 X10^3/uL (2.7-7.7); Neutrophil % 82.1 % (47-70); Platelet Count 147 K/mm3 (150-450); RBC Distribution Width CV 18.4 % (11.6-14.6); RBC Distribution Width SD 57.7 fl (35.1-43.9); Red Blood Count 4.21 M/mm3 (4.2-5.4); White Blood Count 19.3 K/mm3 (4.4-11.0)
[2020-08-21 06:16] LABS: International Normalized Ratio 2.1; Prothrombin Time (Protime)PT. 22.9 SECONDS (11.7-14.9)
[2020-08-21 06:40] LABS: ALB/GLOB Ratio 0.6 RATIO (0.9-2.4); AST(SGOT) 20 U/L (15-37); Alanine Aminotransfer ALT/SGPT 43 U/L (13-56); Alkaline Phosphatase 78 U/L (45-117); Anion Gap 2 (5-15); BUN 25 mg/dL (7-18); BUN/Creat Ratio 53.1 RATIO (10-20); Calcium,Total 7.9 mg/dL (8.5-10.1); Chloride 111 mmol/L (98-107); Creatinine, Serum 0.47 mg/dL (0.55-1.02); EST Glomerular Filtration Rate 136 mL/min (>60); Est Glom Filt Rate - Afr Amer 165 mL/min (>60); Estimated Creatinine Clearance 46.54 ml/min; Globulin 3.6 g/dL (2.2-4.2); Glucose 86 mg/dL (74-106); Potassium 3.8 mmol/L (3.5-5.1); Protein, Total 5.6 g/dL (6.4-8.2); Sodium Level 141 mmol/L (136-145)
[2020-08-21] MEDS: Albuterol 2.5 MG/3 ML VIAL.NEB. INHALATION ×3 (07:26→19:25)
[2020-08-21] MEDS: Budesonide Respules 0.5 MG/2 ML AMPUL.NEB. INHALATION ×2 (07:26→19:25)
--- NOTE | 2020-08-21 10:05 | CASEMGMT ---
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 SW faxed clinicals to [facility]. SW also called patient's daughter and left her a voice mail requesting a return call to verify plan is to return to [facility] and if she will be transporting patient. Plan: d/c back to [facility] under intermediate level of care. Regla VIZCARRA MSW
[2020-08-21] MEDS: Pantoprazole Sodium 20 MG Tablet PO (10:56)
[2020-08-21] MEDS: Vancomycin IV 500 MG/100 ML BAG 100 MG IV ×2 (10:56→21:16)
[2020-08-21] MEDS: Cyanocobalamin 500 MCG Tablet PO (10:57)
[2020-08-21] MEDS: Citalopram 40 MG TABLET PO (10:57)
[2020-08-21] MEDS: dilTIAZem 60 MG Tablet 120 MG PO ×2 (10:57→21:15)
[2020-08-21] MEDS: AcetaZOLAMIDE 250 MG Tablet PO ×2 (10:57→21:16)
--- NOTE | 2020-08-21 11:21 | CASEMGMT ---
SW attempted to talk with patient to confirm her d/c plan, however she was sleeping. SW did not feel it was necessary to wake her. Regla VIZCARRA MSW
--- NOTE | 2020-08-21 12:55 | CASEMGMT ---
SW received a phone call from patient's daughter, Irene. She confirmed the plan is for patient to return to [facility] and she will transport her. SW thanked her for calling back. Green sheet on chart. Plan: d/c back to [facility] under intermediate level of care. Patient's daughter Irene will transport her back to [facility]. Regla VIZCARRA MSW
--- NOTE | 2020-08-21 13:10 | PN_ITS ---
Subjective: Still confused. Denies SOB. Vitals/I&O's: Vital Signs Temp Pulse Resp BP Pulse Ox 37.0 C 92 15 115/81 H 99 08/21/20 10:50 08/21/20 10:50 08/21/20 10:50 08/21/20 10:50 08/21/20 10:50 Oxygen Flow Rate (L/min) 2 Oxygen Delivery Method Nasal Cannula Weight: 63 kg Body Mass Index (BMI) 21.6 Finger Stick Blood Glucose 166 Intake and Output for Last 24 Hours 08/19/20 08/20/20 08/21/20 23:59 23:59 23:59 Intake Total 1300 / 1350 1200 / 1200 Balance 1300 / 1350 1200 / 1200 General: Alert, No apparent distress HEENT: Atraumatic, Normocephalic Oral: Moist Mucosa, No Gingival or Mucosal Lesions/ Ulcerations Neck: No Nodes, Thyroid Normal Size and Texture Lungs: - - RLL crackles Cardiovascular: Regular rate, Regular Rhythm, Normal S1, Normal S2, No murmurs Abdomen: Bowel Sounds Present, Soft, Non Tender, Non-Distended, No Hepato- splenomegaly Extremities: No edema, No Calf Tenderness Skin: No rashes, No breakdown Psych/Mental Status: Normal Affect, Appropriate Microbiology Past 72 Hours 08/20/20 18:10 Mucosa - Nose SARS-CoV-2 Antigen (Rapid) - Final Laboratory Results 08/20/20 15:30: WBC 22.9 H, RBC 5.53 H, Hgb 14.8, Hct 47.8 H, MCV 86.4, MCH 26.8 L, MCHC 31.0 L, RDW Std Deviation 57.2 H, RDW Coeff of [place] 18.7 H, Plt Count 188, MPV TNP, Immature Gran % (Auto) 2.100 H, Neut % (Auto) 81.5 H, Lymph % ( Auto) 9.8 L, [place] % (Auto) 5.8, Eos % (Auto) 0.5, Baso % (Auto) 0.3, Absolute Neuts (auto) 18.6 H, Absolute Lymphs (auto) 2.24, Nucleated RBC % 0 08/20/20 15:30: Sodium 139, Potassium 3.9, Chloride 103, Carbon Dioxide 34.0 H, Anion Gap 2 L, BUN 31 H, Creatinine 0.59, Estim Creat Clear Calc 44.80, Est GFR (MDRD) Af Amer 128, Est GFR (MDRD) Non-Af 106, BUN/Creatinine Ratio 52.7 H, Glucose 101, Calcium 8.9, Troponin I < 0.015 08/20/20 15:30: PT 22.3 H, INR 2.0 08/20/20 15:30: B-Natriuretic Peptide 89.0 08/20/20 15:55: Specimen Type ART, Sample Site R Radial, pH 7.44, Bicarbonate Actual 30.1 H, Total CO2 31, Base Excess 6 H, O2 Saturation 94 L, ABG pCO2 43.9, ABG pO2 70 L, Mj Test Positive, O2 Delivery Device Cannula, Liter Flow 2.0 08/20/20 16:50: Lactic Acid 1.1 08/20/20 16:55: Urine Color Yellow, Urine Clarity Clear, Urine pH 7.0, Ur Specific [place] 1.010, Urine Protein Negative, Urine Glucose (UA) Normal, Urine Ketones Negative, Urine Occult Blood 10 H, Urine Nitrite Positive H, Urine Bilirubin Negative, Urine Urobilinogen Normal, Ur Leukocyte Esterase 25 H, Urine RBC 0 SEEN, Urine WBC 0-5 SEEN, Ur Squamous Epith Cells 0 SEEN, Urine Bacteria 1+, Urine Mucus 0 SEEN 08/21/20 05:46: WBC 19.3 H, RBC 4.21, Hgb 11.9 L, Hct 36.9 L, MCV 87.6, MCH 28.3, MCHC 32.2, RDW Std Deviation 57.7 H, RDW Coeff of [place] 18.4 H, Plt Count 147 L, MPV 13.6 H, Immature Gran % (Auto) 1.500 H, Neut % (Auto) 82.1 H, Lymph % (Auto) 8.5 L, [place] % (Auto) 6.7, Eos % (Auto) 0.9, Baso % (Auto) 0.3, Absolute Neuts (auto) 15.8 H, Absolute Lymphs (auto) 1.63, Nucleated RBC % 0 08/21/20 05:46: PT 22.9 H, INR 2.1 08/21/20 05:46: Sodium 141, Potassium 3.8, Chloride 111 H, Carbon Dioxide 28.0, Anion Gap 2 L, BUN 25 H, Creatinine 0.47 L, Estim Creat Clear Calc 46.54, Est GFR (MDRD) Af Amer 165, Est GFR (MDRD) Non-Af 136, BUN/Creatinine Ratio 53.1 H, Glucose 86, Calcium 7.9 L, Total Bilirubin 1.40 H, AST 20, ALT 43, Alkaline Phosphatase 78, Total Protein 5.6 L, Albumin 2.0 L, Globulin 3.6, Albumin/Globulin Ratio 0.6 L Current Medications Acetaminophen (Acetaminophen 325 Mg Tablet) 650 mg PO Q6H PRN PRN PRN Reason: Pain Score 1-10/Temp > 100.7 F Acetazolamide (Acetazolamide 250 Mg Tablet) 250 mg PO BID [facility] Last Admin: 08/21/20 10:57 Dose: 250 mg Documented by: Albuterol Sulfate (Albuterol 2.5 Mg/3 Ml Vial.Neb.) 2.5 mg INHALATION Q2H PRN PRN PRN Reason: SOB/Wheezing Last Admin: 08/21/20 07:26 Dose: 2.5 mg Documented by: Budesonide (Budesonide Respules 0.5 Mg/2 Ml Ampul.Neb.) 0.5 mg INHALATION BID.RT [facility] Last Admin: 08/21/20 07:26 Dose: 0.5 mg Documented by: Buspirone HCl (Buspirone 5 Mg Tablet) 5 mg PO QHS [facility] Last Admin: 08/20/20 21:39 Dose: 5 mg Documented by: Citalopram Hydrobromide (Citalopram 40 Mg Tablet) 40 mg PO DAILY [facility] Last Admin: 08/21/20 10:57 Dose: 40 mg Documented by: Cyanocobalamin (Cyanocobalamin 500 Mcg Tablet) 500 mcg PO DAILY [facility] Last Admin: 08/21/20 10:57 Dose: 500 mcg Documented by: Diltiazem HCl (Diltiazem 60 Mg Tablet) 120 mg PO 4X/DAY [facility] Last Admin: 08/21/20 10:57 Dose: 120 mg Documented by: Ergocalciferol (Ergocalciferol 50,000 Unit Capsule) 50,000 unit PO TH [facility] Gabapentin (Gabapentin 100 Mg Capsule) 100 mg PO QHS [facility] Last Admin: 08/20/20 21:40 Dose: 100 mg Documented by: Vancomycin IV Pharmacy to Dose (1 ea/ Sodium Chloride) 500 mls @ 250 mls/hr IV PRN PRN; Protocol PRN Reason: Rx to Dose Vancomycin HCl () 500 mg in 100 mls @ 100 mls/hr IV Q12H [facility] Last Infusion: 08/21/20 11:59 Dose: Infused Documented by: Metoprolol Tartrate (Metoprolol Tartrate 25 Mg Tablet) 25 mg PO TID [facility] Last Admin: 08/21/20 05:02 Dose: 25 mg Documented by: Non-Formulary Medication (Linaclotide) 72 mcg PO DAILY [facility] Nutritional Formula (Lactose Free) (Ensure Clear 120 Ml Liquid) 120 ml PO 4X/DAY [facility] Ondansetron HCl (Ondansetron 4 Mg/2 Ml Vial) 4 mg IV Q8H PRN PRN PRN Reason: NAUSEA/VOMITING Pantoprazole Sodium (Pantoprazole Sodium 20 Mg Tablet) 20 mg PO DAILY [facility] Last Admin: 08/21/20 10:56 Dose: 20 mg Documented by: Potassium Chloride (Potassium Chloride 20 Meq Tablet) 20 meq PO DAILYCM [facility] Last Admin: 08/21/20 10:56 Dose: 20 meq Documented by: Psyllium Hydrophilic Mucilloid (Psyllium 1 Packet) 1 packet PO DAILY PRN PRN PRN Reason: Constipation Senna/Docusate Sodium (Senna/Docusate Sodium 1 Tablet) 2 tablet PO QHS [facility] Last Admin: 08/20/20 21:40 Dose: 2 tablet Documented by: Sodium Chloride (0.9% Saline Lock 10 Ml Syringe) 10 - 40 ml IV UD PRN PRN Reason: SALINE FLUSH Tramadol HCl (Tramadol 50 Mg Tablet) 50 mg PO TID PRN PRN Reason: Pain Score 6-10 Warfarin Sodium (Warfarin 2.5 Mg Tablet) 2.5 mg PO DAILY@1700 [facility] Warfarin Sodium (Warfarin 1 Mg Tablet) 1 mg PO DAILY@1700 [facility] STROKE Vital Signs/Narrative: Vital Signs Temp Pulse Resp BP Pulse Ox 08/21/20 10:50 37.0 C 92 15 115/81 H 99 Medical Necessity - Tobacco Use Smoking Status: Former smoker Tobacco Use: Non-smoker Assessment/Plan All Active Problems (Last Reviewed 06/01/20 @ 13:01 by Eveline Jason FLUID JET CUTTER OPERATOR, FLUID JET CUTTER OPERATOR- C) Paroxysmal atrial fibrillation (Acute) 1. acute metabolic encephalopathy * ongoing v at baseline * 2/2 pneumonia * avoid potentiating medications 2. suspected gram negative pneumonia * continue vanc. resume pip/tazo * follow up cultures 3. elevated bilirubin * CT a/p showed no acute process (other than pneumonia) * monitor * consider US if worsens 4. afib w RVR: * currently rate-controlled * continue dilt + meto tart * anticoagulated w warfarin 5. VTE prophylaxis: warfarin Inpatient E&M: 02783 Subs Hosp L2
[2020-08-21] MEDS: Ensure Clear 120 ML Liquid PO ×2 (15:24→21:22)
[2020-08-21] MEDS: Senna/Docusate Sodium 1 Tablet 2 TABLET PO (21:15)
[2020-08-21] MEDS: Gabapentin 100 MG Capsule PO (21:15)
[2020-08-21] MEDS: busPIRone 5 MG Tablet PO (21:16)
--- NOTE | 2020-08-21 22:48 | PCS.PANDOC ---
PANDEMIC DOCUMENTATION INITIATED: Date: 08/21/2020 Time: 190
[2020-08-22] VITALS (18 sets, daily range): BP systolic 103–121; BP diastolic 68–77; PULSE 67–97; RESP 14–26; TEMP 36.4–37.1; O2SAT 96–100
[2020-08-22] MEDS: Metoprolol Tartrate 25 MG Tablet PO ×3 (06:20→21:20)
[2020-08-22] MEDS: Budesonide Respules 0.5 MG/2 ML AMPUL.NEB. INHALATION ×2 (07:34→18:55)
--- NOTE | 2020-08-22 07:34 | CPS ---
Patient taken off AVAPS and placed on 2lpm nasal cannula.
[2020-08-22 07:58] LABS: Absolute Neutrophil Count 12.3 X10^3/uL (2.0-7.7); Basophil# 0.01 X10^3/uL; Basophil% 0.1 % (0-1); Eosinophil# 0.36 X10^3/uL; Eosinophils% 2.3 % (0-5); Hemoglobin 11.1 g/dL (12.0-15.0); Lymphocyte % 9.7 % (19-41); Mean Corp Hgb Conc 29.2 g/dL (32-36); Mean Corpuscular Hgb 26.4 pg (27.0-32.0); Mean Corpuscular Volume 90.5 fL (81-99); Mean Platelet Vol. 13.7 fl (6.2-12.0); Monocyte# 1.21 X10^3/uL; Monocyte% 7.8 % (0-10); NRBC Flagged by Analyzer 0 % (0-5); Neutrophil # 12.28 X10^3/uL (2.7-7.7); Neutrophil % 79.2 % (47-70); Platelet Count 146 K/mm3 (150-450); RBC Distribution Width CV 18.9 % (11.6-14.6); RBC Distribution Width SD 61.3 fl (35.1-43.9); White Blood Count 15.5 K/mm3 (4.4-11.0)
[2020-08-22 08:21] LABS: International Normalized Ratio 1.5; Prothrombin Time (Protime)PT. 17.1 SECONDS (11.7-14.9)
[2020-08-22 08:25] LABS: ALB/GLOB Ratio 0.6 RATIO (0.9-2.4); AST(SGOT) 12 U/L (15-37); Alanine Aminotransfer ALT/SGPT 31 U/L (13-56); Alkaline Phosphatase 73 U/L (45-117); Anion Gap 5 (5-15); BUN 16 mg/dL (7-18); BUN/Creat Ratio 35.7 RATIO (10-20); Calcium,Total 8.2 mg/dL (8.5-10.1); Chloride 112 mmol/L (98-107); Creatinine, Serum 0.45 mg/dL (0.55-1.02); EST Glomerular Filtration Rate 145 mL/min (>60); Est Glom Filt Rate - Afr Amer 175 mL/min (>60); Estimated Creatinine Clearance 46.54 ml/min; Globulin 3.4 g/dL (2.2-4.2); Glucose 90 mg/dL (74-106); Potassium 3.6 mmol/L (3.5-5.1); Protein, Total 5.4 g/dL (6.4-8.2); Sodium Level 144 mmol/L (136-145)
[2020-08-22] MEDS: dilTIAZem 60 MG Tablet 120 MG PO ×4 (08:54→21:20)
[2020-08-22] MEDS: AcetaZOLAMIDE 250 MG Tablet PO ×2 (08:55→21:20)
[2020-08-22] MEDS: Pantoprazole Sodium 20 MG Tablet PO (08:55)
[2020-08-22] MEDS: Cyanocobalamin 500 MCG Tablet PO (08:55)
[2020-08-22] MEDS: Citalopram 40 MG TABLET PO (08:55)
[2020-08-22 09:44] LABS: Vancomycin, Trough Level 8.7 ug/mL (5.0-15.0)
--- NOTE | 2020-08-22 09:49 | PCM.RX.CS ---
Consult Pharmacy has been consulted to manage selected antiobiotic: Vancomycin Type of Consult: Follow-up Suspected Infection: Pneumonia Labs: Sodium 144 mmol/L (136-145) 08/22/20 07:18 Potassium 3.6 mmol/L (3.5-5.1) 08/22/20 07:18 Chloride 112 mmol/L (98-107) H 08/22/20 07:18 Carbon Dioxide 27.0 mmol/L (21.0-32.0) 08/22/20 07:18 Anion Gap 5 (5-15) 08/22/20 07:18 BUN 16 mg/dL (7-18) 08/22/20 07:18 Creatinine 0.45 mg/dL (0.55-1.02) L 08/22/20 07:18 Est GFR (MDRD) Af Amer 175 mL/min (>60) 08/22/20 07:18 Est GFR (MDRD) Non-Af 145 mL/min (>60) 08/22/20 07:18 BUN/Creatinine Ratio 35.7 RATIO (10-20) H 08/22/20 07:18 Glucose 90 mg/dL (74-106) 08/22/20 07:18 Vancomycin Trough 8.7 ug/mL (5.0-15.0) 08/22/20 09:01 Microbiology: Microbiology 08/21/20 23:15 Urine, Random Streptococcus pneumoniae Antigen (M - Final 08/21/20 23:15 Urine, Clean Catch Legionella Antigen - Final 08/20/20 18:10 Mucosa - Nose SARS-CoV-2 Antigen (Rapid) - Final Goal Trough: 15-20 mcg/mL Pharmacy Plan for Drug Dosing: VANCOMYCIN LEVEL RECEIVED Current Vancomycin Dose: 500MG Q12H Number of Doses Received: 3 Vancomycin Level: 8.7 MG/DL Hours Since Last Dose: 12 Renal Function: SCR 0.45, CRCL 46 ML/MIN Renal Function Trend: STABLE Lab/Micro: BLOOD CULTURE PENDING Vancomycin Plan/Comments: INCREASE DOSE TO 1000MG Q12 STARTING 08/22 @ 1000. NEXT TROUGH PRIOR TO 4TH DOSE OF NEW REGIMEN. Pharmacy Service will continue to monitor and adjust dosing as required. Labs to be done on [date and time ordered]: 08/23/20 @ 0491
[2020-08-22] MEDS: Vancomycin IV 1,000 MG/200 ML BAG 200 MG IV ×2 (10:10→21:29)
[2020-08-22] MEDS: 0.9% Saline Lock 10 ML Syringe IV (15:07)
--- NOTE | 2020-08-22 15:23 | PCM.PN.HOSP ---
Reason for Visit: pneumonia Subjective: per patient's daughter, more alert, but not back to baseline yet. Vitals/I&O's: Vital Signs Temp Pulse Resp BP Pulse Ox 36.4 C L 80 15 115/69 99 08/22/20 14:49 08/22/20 15:06 08/22/20 14:49 08/22/20 14:49 08/22/20 14:49 Oxygen Flow Rate (L/min) 2 Oxygen Delivery Method Nasal Cannula Weight: 64.2 kg Body Mass Index (BMI) 21.6 Finger Stick Blood Glucose 166 Intake and Output for Last 24 Hours 08/20/20 08/21/20 08/22/20 23:59 23:59 23:59 Intake Total 1300 / 1350 2014 660 / 660 Output Total 300 / 300 Balance 1300 / 1350 1715 / 1715 660 / 660 General: Alert, No apparent distress HEENT: Atraumatic, Normocephalic Oral: Moist Mucosa, Dry Mucosa Neck: No Nodes, Thyroid Normal Size and Texture Lungs: Clear to auscultation, Normal air movement, No rhonchi, No wheeze Cardiovascular: Regular rate, Regular Rhythm, Normal S1, Normal S2 Abdomen: Bowel Sounds Present, Soft, Non Tender, Non-Distended Extremities: No edema, No Calf Tenderness Microbiology Past 72 Hours 08/21/20 23:15 Urine, Random Streptococcus pneumoniae Antigen (M - Final 08/21/20 23:15 Urine, Clean Catch Legionella Antigen - Final 08/20/20 18:10 Mucosa - Nose SARS-CoV-2 Antigen (Rapid) - Final Laboratory Results 08/22/20 07:18: PT 17.1 H, INR 1.5 08/22/20 07:18: WBC 15.5 H, RBC 4.20, Hgb 11.1 L, Hct 38.0, MCV 90.5, MCH 26.4 L, MCHC 29.2 L D, RDW Std Deviation 61.3 H, RDW Coeff of Laura 18.9 H, Plt Count 146 L, MPV 13.7 H, Immature Gran % (Auto) 0.900, Neut % (Auto) 79.2 H, Lymph % (Auto) 9.7 L, [place] % (Auto) 7.8, Eos % (Auto) 2.3, Baso % (Auto) 0.1, Absolute Neuts (auto) 12.3 H, Absolute Lymphs (auto) 1.50, Nucleated RBC % 0 08/22/20 07:18: Sodium 144, Potassium 3.6, Chloride 112 H, Carbon Dioxide 27.0, Anion Gap 5, BUN 16, Creatinine 0.45 L, Estim Creat Clear Calc 46.54, Est GFR (MDRD) Af Amer 175, Est GFR (MDRD) Non-Af 145, BUN/Creatinine Ratio 35.7 H, Glucose 90, Calcium 8.2 L, Total Bilirubin 0.70, AST 12 L, ALT 31, Alkaline Phosphatase 73, Total Protein 5.4 L, Albumin 2.0 L, Globulin 3.4, Albumin/Globulin Ratio 0.6 L 08/22/20 09:01: Vancomycin Trough 8.7 Current Medications Acetaminophen (Acetaminophen 325 Mg Tablet) 650 mg PO Q6H PRN PRN PRN Reason: Pain Score 1-10/Temp > 100.7 F Acetazolamide (Acetazolamide 250 Mg Tablet) 250 mg PO BID [facility] Last Admin: 08/22/20 08:55 Dose: 250 mg Documented by: Albuterol Sulfate (Albuterol 2.5 Mg/3 Ml Vial.Neb.) 2.5 mg INHALATION Q2H PRN PRN PRN Reason: SOB/Wheezing Last Admin: 08/21/20 19:25 Dose: 2.5 mg Documented by: Budesonide (Budesonide Respules 0.5 Mg/2 Ml Ampul.Neb.) 0.5 mg INHALATION BID.RT [facility] Last Admin: 08/22/20 07:34 Dose: 0.5 mg Documented by: Buspirone HCl (Buspirone 5 Mg Tablet) 5 mg PO QHS [facility] Last Admin: 08/21/20 21:16 Dose: 5 mg Documented by: Citalopram Hydrobromide (Citalopram 40 Mg Tablet) 40 mg PO DAILY [facility] Last Admin: 08/22/20 08:55 Dose: 40 mg Documented by: Cyanocobalamin (Cyanocobalamin 500 Mcg Tablet) 500 mcg PO DAILY [facility] Last Admin: 08/22/20 08:55 Dose: 500 mcg Documented by: Diltiazem HCl (Diltiazem 60 Mg Tablet) 120 mg PO 4X/DAY [facility] Last Admin: 08/22/20 15:06 Dose: 120 mg Documented by: Ergocalciferol (Ergocalciferol 50,000 Unit Capsule) 50,000 unit PO TH [facility] Gabapentin (Gabapentin 100 Mg Capsule) 100 mg PO QHS [facility] Last Admin: 08/21/20 21:15 Dose: 100 mg Documented by: Vancomycin IV Pharmacy to Dose (1 ea/ Sodium Chloride) 500 mls @ 250 mls/hr IV PRN PRN; Protocol PRN Reason: Rx to Dose Piperacillin Sod/Tazobactam (Sod 3.375 gm/ Sodium Chloride) 50 mls @ 12.5 mls/hr IV Q8 [facility] Last Admin: 08/22/20 15:07 Dose: 12.5 mls/hr Documented by: Vancomycin HCl (Vancomycin) 1,000 mg in 200 mls @ 200 mls/hr IV Q12H [facility] Last Infusion: 08/22/20 11:10 Dose: Infused Documented by: Metoprolol Tartrate (Metoprolol Tartrate 25 Mg Tablet) 25 mg PO TID [facility] Last Admin: 08/22/20 15:06 Dose: 25 mg Documented by: Nutritional Formula (Lactose Free) (Ensure Clear 120 Ml Liquid) 120 ml PO 4X/DAY [facility] Last Admin: 08/22/20 15:06 Dose: Not Given Documented by: Ondansetron HCl (Ondansetron 4 Mg/2 Ml Vial) 4 mg IV Q8H PRN PRN PRN Reason: NAUSEA/VOMITING Pantoprazole Sodium (Pantoprazole Sodium 20 Mg Tablet) 20 mg PO DAILY [facility] Last Admin: 08/22/20 08:55 Dose: 20 mg Documented by: Potassium Chloride (Potassium Ch[facility] 20 M[facility] Tablet) [facility] Admin: 08/22/20 08:54 Dose: 20 meq Documented by: Psyllium Hydrophilic Mucilloid (Psyllium 1 Packet) 1 packet PO DAILY PRN PRN PRN Reason: Constipation Senna/Docusate Sodium (Senna/Docusate Sodium 1 Tablet) 2 tablet PO QHS [facility] Last Admin: 08/21/20 21:15 Dose: 2 tablet Documented by: Sodium Chloride (0.9% Saline Lock 10 Ml Syringe) 10 - 40 ml IV UD PRN PRN Reason: SALINE FLUSH Last Admin: 08/22/20 15:07 Dose: 10 ml Documented by: Tramadol HCl (Tramadol 50 Mg Tablet) 50 mg PO TID PRN PRN Reason: Pain Score 6-10 Warfarin Sodium (Warfarin 2.5 Mg Tablet) 2.5 mg PO DAILY@1700 [facility] Last Admin: 08/21/20 18:22 Dose: 2.5 mg Documented by: Warfarin Sodium (Warfarin 1 Mg Tablet) 1 mg PO DAILY@1700 [facility] Last Admin: 08/21/20 18:22 Dose: 1 mg Documented by: STROKE Vital Signs/Narrative: Vital Signs Temp Pulse Resp BP Pulse Ox 08/22/20 15:06 80 08/22/20 14:49 36.4 C L 80 15 115/69 99 Medical Necessity - Tobacco Use Smoking Status: Former smoker Tobacco Use: Non-smoker Assessment/Plan All Active Problems (Last Reviewed 06/01/20 @ 13:01 by Eveline Jason WHAT JOB TITLES MEAN, WHAT JOB TITLES MEAN-C) Paroxysmal atrial fibrillation (Acute) 1. acute metabolic encephalopathy improved 2/2 pneumonia avoid potentiating medications 2. suspected gram negative pneumonia continue vanc. resume pip/tazo follow up cultures 3. elevated bilirubin resolved CT a/p showed no acute process (other than pneumonia) monitor consider US if worsens consider GI follow up as outpt. 4. afib w RVR: currently rate-controlled continue dilt + meto tart anticoagulated w warfarin 08/22: INR down to 1.5. We will hold her normal dosing of 3.5 mg daily and give her 5 mg today and follow-up the seventh. 5. VTE prophylaxis: warfarin Inpatient E&M: 74546 Subs Hosp L2
[2020-08-22] MEDS: Albuterol 2.5 MG/3 ML VIAL.NEB. INHALATION (18:55)
[2020-08-22] MEDS: busPIRone 5 MG Tablet PO (21:19)
[2020-08-22] MEDS: traMADol 50 MG Tablet PO (21:20)
[2020-08-22] MEDS: Gabapentin 100 MG Capsule PO (21:20)
[2020-08-22] MEDS: Ensure Clear 120 ML Liquid PO (21:29)
--- NOTE | 2020-08-22 23:10 | CPS ---
pt refused BIPAP for tonight
[2020-08-23] VITALS (9 sets, daily range): BP systolic 108–122; BP diastolic 66–76; PULSE 68–98; RESP 16–20; TEMP 36.3–36.9; O2SAT 96–99
[2020-08-23] MEDS: Metoprolol Tartrate 25 MG Tablet PO ×2 (05:29→13:27)
[2020-08-23] MEDS: Budesonide Respules 0.5 MG/2 ML AMPUL.NEB. INHALATION (07:29)
--- NOTE | 2020-08-23 09:43 | PCM.TXEXTCAR ---
- Diet 08/20/20 20:02 Diet: Cardiac - Heart Healthy Food consistency:: Regular Liquid Consistency:: Regular/Thin - Routine Orders/Code Status Enema Type: Fleetz O2 Frequency: Continuous Routine Lab Work: CBC - every Monday, INR - every Monday and Code Status: DNRCC-A - no intubation - Therapies Physical Therapy: Eval and Treat Occupational Therapy: Eval and Treat - Allergies/Procedures Done in Hospital Allergies/Adverse Reactions: Allergies amlodipine besylate [From [facility]] Adverse Reaction (Verified 08/20/20 14:52) ANKLE AND LEG EDEMA RESOLVED OFF MED-PER PCP PAPERWORK codeine Adverse Reaction (Verified 08/20/20 14:52) MENTAL STATUS CHANGE lisinopril Adverse Reaction (Verified 08/20/20 14:52) COUGH Procedures: None - Type of Care/Length of Stay Estimated LOS: More Than 30 Days Type of Care Needed: Intermediate Rehab Potential: Fair Prognosis: Good - Additional Orders/Day of Discharge Day of Discharge: 08/23/20 - Dietary and Speech Recommendations Dietitian Recommendations/Changes: continue cardiac diet as tolerated, 120mL ensure clear 4x/day; if PO at meals is poor, change diet to regular. - Follow Up Care Primary Care Physician: Tor Lucia MD [Primary Care Provider] - Within 2 Weeks Please Follow Up With: Mani Mcnair MD When: 09/01/2020, already scheduled
--- NOTE | 2020-08-23 09:45 | PCM.DC.SUM ---
Discharge Date and Diagnosis Date of Admission: 08/20/20 Date of Discharge: 08/23/20 - Primary Discharge Diagnosis Acute Problems: 1. acute metabolic encephalopathy improved 2/2 pneumonia avoid potentiating medications off lorazepam since admit. Decrease Ultram from 50 TID to 25 TID PRN. 2. suspected gram negative pneumonia continue vanc. resume pip/tazo cultures negative Change ABX to 5 more days of amoxicillin/CA to complete 7 day course. 3. elevated bilirubin resolved CT a/p showed no acute process (other than pneumonia) monitor consider US if worsens consider GI follow up as outpt. 4. afib w RVR: currently rate-controlled continue dilt + meto tart anticoagulated w warfarin 08/22: INR down to 1.5. We will hold her normal dosing of 3.5 mg daily and give her 5 mg today and follow-up the seventh. - Secondary Discharge Diagnosis Chronic Problems: Chronic Problems (Last Reviewed 06/01/20 @ 13:01 by Eveline Jason LEGISLATIVE CORRESPONDENT, LEGISLATIVE CORRESPONDENT-C) Back pain (Chronic) Compression fracture (Chronic) Other intervertebral disc degeneration, lumbar region (Chronic) Spinal stenosis, lumbar region with neurogenic claudication (Chronic) Spondylosis without myelopathy or radiculopathy, lumbar region (Chronic) Lumbago with sciatica, right side (Chronic) Unspecified abnormalities of gait and mobility (Chronic) Compression fracture of thoracic vertebra with routine healing (Chronic) Anxiety (Chronic) ANKUSH (obstructive sleep apnea) (Chronic) Diastolic dysfunction (Chronic) Chronic hypoxemic respiratory failure (Chronic) Chronic anticoagulation (Chronic) Former tobacco use (Chronic) Depression (Chronic) Pulmonary hypertension (Chronic) History of recurrent deep vein thrombosis (DVT) (Chronic) History of pulmonary embolism (Chronic) History of cardioversion (Chronic) January of 2018.....HR not controlled with exertion while in AF on Beta donna and cardizem. Converted to NSR with cardioversion HTN (hypertension) (Chronic) Iron deficiency anemia (Chronic) Chronic diastolic CHF (congestive heart failure) (Chronic) Atrial fibrillation with RVR (Chronic) Dyslipidemia (Chronic) COPD (chronic obstructive pulmonary disease) (Chronic) Hospital Course and Treatment Imaging Results: Clinical Impression(s) from Imaging Studies Brain CT 08/20/20 15:12 IMPRESSION: Chronic involutional changes of the brain. Electronically Signed: Debbie Swain MD at 16:18 EST Tel , Service support , Chest X-Ray 08/20/20 16:00 IMPRESSION: Grossly stable examination demonstrating no acute cardiopulmonary process. Electronically Signed: Debbie Swain MD at 16:24 EST Tel , Service support , Abdomen/Pelvis CT 08/20/20 16:43 IMPRESSION: New tree-in-bud opacities within the right middle and lower lobes may be secondary to an infectious process. Atherosclerosis. Colonic diverticulosis. Degenerative changes of the visualized thoracic and lumbar spine. Electronically Signed: Debbie Swain MD at 17:46 EST Tel , Service support , Operations: None Procedures: None Summary of Care Provided: The patient is a 74 year old F with confusion. Patient was also found to have metabolic encephalopathy secondary to pneumonia. Given patient's recent hospitalizations, concern was for healthcare acquired pneumonia as patient was on broad-spectrum antibiotics with personal/tazobactam and vancomycin. Patient was cultured. Patient is infectious work-up came back unremarkable. From the pneumonia standpoint, patient will be discharged with a 5 more days of amoxicillin/clavulanic acid Juan José over the course of antibiotics. Per the patient's encephalopathy it has been ongoing but improved. [place] to be metabolic related with the pneumonia there may also be component of medications as patient is on gabapentin, lorazepam as well as tramadol. Patient's lorazepam has been held and patient has been doing fine. Patient was already receiving that at night. She did not experience any withdrawal symptoms. Would continue to hold that moving forward. Patient's tramadol, upon discharge will be decreased from scheduled 50 3 times daily to as needed 25 3 times daily. Patient may continue with her gabapentin but may consider discontinuing if her's confusion still does persist. Patient had no focal deficits for her confusion and she did have a head CT that showed chronic involutional changes but no acute process. [facility] and there intermediate care. [] - Physical Exam Vitals/I&O's: Vital Signs Temp Pulse Resp BP Pulse Ox 36.4 C L 77 16 122/66 H 96 08/23/20 05:25 08/23/20 07:29 08/23/20 07:29 08/23/20 05:29 08/23/20 07:29 Oxygen Flow Rate (L/min) 2 Oxygen Delivery Method Nasal Cannula Weight: 64 kg Body Mass Index (BMI) 21.6 Finger Stick Blood Glucose 166 Intake and Output for Last 24 Hours 08/21/20 08/22/20 08/23/20 23:59 23:59 23:59 Intake Total 2014 1640 / 1640 170 / 170 Output Total 300 / 300 Balance 1715 / 1715 1640 / 1640 170 / 170 General: Alert, - - Oriented to self and place. She knew the month missed the year stating that was 2011 and did not who the president was. HEENT: Atraumatic, Normocephalic Oral: Moist Mucosa, No Gingival or Mucosal Lesions/ Ulcerations Neck: No Nodes, Thyroid Normal Size and Texture Lungs: Clear to auscultation, Normal air movement, No rhonchi, No wheeze, No rales Cardiovascular: Regular rate, Regular Rhythm, Normal S1, Normal S2 Abdomen: Bowel Sounds Present, Soft, Non Tender, Non-Distended Extremities: No edema, No Calf Tenderness Skin: No rashes, No breakdown Musculoskeletal: No Tenderness to Palpation of Joints or Extremities, No Muscle Wasting Psych/Mental Status: Normal Affect, Appropriate Microbiology Past 72 Hours 08/21/20 23:15 Urine, Random Streptococcus pneumoniae Antigen (M - Final 08/21/20 23:15 Urine, Clean Catch Legionella Antigen - Final 08/20/20 18:10 Mucosa - Nose SARS-CoV-2 Antigen (Rapid) - Final Current Medications Acetaminophen (Acetaminophen 325 Mg Tablet) 650 mg PO Q6H PRN PRN PRN Reason: Pain Score 1-10/Temp > 100.7 F Acetazolamide (Acetazolamide 250 Mg Tablet) 250 mg PO BID [facility] Last Admin: 08/22/20 21:20 Dose: 250 mg Documented by: Albuterol Sulfate (Albuterol 2.5 Mg/3 Ml Vial.Neb.) 2.5 mg INHALATION Q2H PRN PRN PRN Reason: SOB/Wheezing Last Admin: 08/22/20 18:55 Dose: 2.5 mg Documented by: Budesonide (Budesonide Respules 0.5 Mg/2 Ml Ampul.Neb.) 0.5 mg INHALATION BID.RT [facility] Last Admin: 08/23/20 07:29 Dose: 0.5 mg Documented by: Buspirone HCl (Buspirone 5 Mg Tablet) 5 mg PO QHS [facility] Last Admin: 08/22/20 21:19 Dose: 5 mg Documented by: Citalopram Hydrobromide (Citalopram 40 Mg Tablet) 40 mg PO DAILY [facility] Last Admin: 08/22/20 08:55 Dose: 40 mg Documented by: Cyanocobalamin (Cyanocobalamin 500 Mcg Tablet) 500 mcg PO DAILY [facility] Last Admin: 08/22/20 08:55 Dose: 500 mcg Documented by: Diltiazem HCl (Diltiazem 60 Mg Tablet) 120 mg PO 4X/DAY [facility] Last Admin: 08/22/20 21:20 Dose: 120 mg Documented by: Ergocalciferol (Ergocalciferol 50,000 Unit Capsule) 50,000 unit PO TH [facility] Gabapentin (Gabapentin 100 Mg Capsule) 100 mg PO QHS [facility] Last Admin: 08/22/20 21:20 Dose: 100 mg Documented by: Vancomycin IV Pharmacy to Dose (1 ea/ Sodium Chloride) 500 mls @ 250 mls/hr IV PRN PRN; Protocol PRN Reason: Rx to Dose Piperacillin Sod/Tazobactam (Sod 3.375 gm/ Sodium Chloride) 50 mls @ 12.5 mls/hr IV Q8 [facility] Last Admin: 08/23/20 05:23 Dose: 12.5 mls/hr Documented by: Vancomycin HCl (Vancomycin) 1,000 mg in 200 mls @ 200 mls/hr IV Q12H [facility] Last Infusion: 08/22/20 22:29 Dose: Infused Documented by: Loperamide HCl (Loperamide 2 Mg Capsule) 2 mg PO Q4H PRN PRN PRN Reason: Diarrhea Metoprolol Tartrate (Metoprolol Tartrate 25 Mg Tablet) 25 mg PO TID [facility] Last Admin: 08/23/20 05:29 Dose: 25 mg Documented by: Nutritional Formula (Lactose Free) (Ensure Clear 120 Ml Liquid) 120 ml PO 4X/DAY [facility] Last Admin: 08/22/20 21:29 Dose: 120 ml Documented by: Ondansetron HCl (Ondansetron 4 Mg/2 Ml Vial) 4 mg IV Q8H PRN PRN PRN Reason: NAUSEA/VOMITING Pantoprazole Sodium (Pantoprazole Sodium 20 Mg Tablet) 20 mg PO DAILY [facility] Last Admin: 08/22/20 08:55 Dose: 20 mg Documented by: Potassium Chloride (Potassium Chloride 20 Meq Tablet) [facility] Last Admin: 08/22/20 08:54 Dose: 20 meq Documented by: Psyllium Hydrophilic Mucilloid (Psyllium 1 Packet) 1 packet PO DAILY PRN PRN PRN Reason: Constipation Senna/Docusate Sodium (Senna/Docusate Sodium 1 Tablet) 2 tablet PO QHS [facility] Last Admin: 08/22/20 21:21 Dose: Not Given Documented by: Sodium Chloride (0.9% Saline Lock 10 Ml Syringe) 10 - 40 ml IV UD PRN PRN Reason: SALINE FLUSH Last Admin: 08/22/20 15:07 Dose: 10 ml Documented by: Tramadol HCl (Tramadol 50 Mg Tablet) 50 mg PO TID PRN PRN Reason: Pain Score 6-10 Last Admin: 08/22/20 21:20 Dose: 50 mg Documented by: Warfarin Sodium (Warfarin 2.5 Mg Tablet) 2.5 mg PO DAILY@1700 [facility] Last Admin: 08/21/20 18:22 Dose: 2.5 mg Documented by: Warfarin Sodium (Warfarin 1 Mg Tablet) 1 mg PO DAILY@1700 [facility] Last Admin: 08/21/20 18:22 Dose: 1 mg Documented by: Discharge Diet: No Restrictions Home Medications: Medications to take at Discharge Ergocalciferol [Vitamin D] 50,000 unit PO 07/19/15 Citalopram Hydrobromide [Citalopram HBr] 40 mg PO DAILY 05/23/18 Budesonide 2 ml IH BID 01/17/19 Omeprazole 20 mg PO DAILY 01/17/19 Vit A/Vit C/Vit E/Zinc/Copper [Preservision Areds Tablet] 1 tab PO BID 01/17/19 Buspirone HCl 5 mg PO QHS 05/07/19 Sennosides/Docusate Sodium [Senna Plus 8.6-50 mg Tablet] 2 tab PO QHS 08/22/19 gabapentin 100 mg capsule 100 mg PO QHS 08/28/19 Ipratropium/Albuterol Sulfate [Duoneb] 3 ml IH BID 04/04/20 Metoprolol Tartrate [Lopressor (beta donna)] 25 mg PO TID 05/27/20 Warfarin [Coumadin] 2.5 mg PO DAILY 06/26/20 AcetaAZOLAMIDE [Diamox] 250 mg PO BID 08/20/20 Cyanocobalamin (Vitamin B-12) [Vitamin B-12] 500 mcg PO DAILY 08/20/20 Diltiazem HCl 120 mg PO 4X/DAY 08/20/20 Lactobacillus Acidophilus [Acidophilus] 1 cap PO DAILY 08/20/20 Lactose-Reduced Food [Boost Breeze] 237 ml PO BID 08/20/20 Potassium Chloride [Klor-Con M20] 20 meq PO DAILY 08/20/20 Warfarin Sodium 1 mg PO DAILY 08/20/20 Acetaminophen [Tylenol Tablet] 650 mg PO Q6H PRN PRN tab 08/23/20 Amoxicillin/Potassium Clav [Augmentin 875-125 Tablet] 1 ea PO BID #10 tab 08/23/20 Ensure Clear 120 ml PO 4X/DAY liquid 08/23/20 Furosemide [Lasix] 20 mg PO DAILY #30 08/23/20 Loperamide [Imodium] 2 mg PO Q4H PRN PRN cap 08/23/20 traMADol [Ultram] 25 mg PO TID PRN 2 Days #6 tab 08/23/20 Following Prescriptions Were Given to Patient: Amoxicillin/Potassium Clav [Augmentin 875-125 Tablet] 1 ea PO BID #10 tab traMADol [Ultram] 25 mg PO TID PRN 2 Days #6 tab PRN Reason: Pain Score 6-10 Prescription Printed Primary Care Physician: Tor Lucia MD [Primary Care Provider] - Within 2 Weeks Please Follow Up With: Mani Mcnair MD When: 09/01/2020, already scheduled Disposition: Asstd Living/Non-Skill [place] Minutes spent on discharge:: 32 Patient Condition:: Fair Medical Necessity - Tobacco Use Smoking Status: Former smoker Tobacco Use: Non-smoker Meaningful Use Info Meaningful Use Diagnoses (Choose all that apply): None applicable Inpatient E&M: 23559 [facility]
[2020-08-23] MEDS: dilTIAZem 60 MG Tablet 120 MG PO (09:58)
[2020-08-23] MEDS: Pantoprazole Sodium 20 MG Tablet PO (09:58)
[2020-08-23] MEDS: Citalopram 40 MG TABLET PO (09:59)
[2020-08-23] MEDS: AcetaZOLAMIDE 250 MG Tablet PO (09:59)
[2020-08-23] MEDS: Cyanocobalamin 500 MCG Tablet PO (10:00)
[2020-08-23] MEDS: Vancomycin IV 1,000 MG/200 ML BAG 200 MG IV (10:10)
== END 2020-08-23 13:45 | disposition home or self-care (01) | DRG 177 ==
LOC: ED 18:46 → PCU 08-21 07:14
PROVIDERS: Emergency Medicine; Admitting Provider Internal Medicine; Emergency Provider Emergency Medicine; PCP Family Medicine
DX: J15.6 Pneumonia due to other Gram-negative bacteria (principal); G93.41 Metabolic encephalopathy; I50.32 Chronic diastolic (congestive) heart failure; J96.11 Chronic respiratory failure with hypoxia; J44.0 Chronic obstructive pulmonary disease with (acute) lower respiratory infection; R74.8 Abnormal levels of other serum enzymes; I48.0 Paroxysmal atrial fibrillation; I11.0 Hypertensive heart disease with heart failure; E78.5 Hyperlipidemia, unspecified; I27.20 Pulmonary hypertension, unspecified; F32.9 Major depressive disorder, single episode, unspecified; F41.9 Anxiety disorder, unspecified; G47.33 Obstructive sleep apnea (adult) (pediatric); D50.9 Iron deficiency anemia, unspecified; Z66 Do not resuscitate; Z86.16 Personal history of COVID-19; Z86.711 Personal history of pulmonary embolism; Z86.718 Personal history of other venous thrombosis and embolism; Z87.891 Personal history of nicotine dependence; Z79.01 Long term (current) use of anticoagulants; Z99.81 Dependence on supplemental oxygen; Z79.899 Other long term (current) drug therapy
CPT/HCPCS: 36415; 36600; 70450; 71045; 74176; 80048; 80053; 80202; 81001; 82803; 83605; 83880; 84484; 85025; 85610; 87040; 87426; 87449; 93005; 94002; 94003; 94640; 97162; 97166; 97530; 99251; 99285; J7030; A4216; G0463

== ENCOUNTER 2020-09-01 15:21 | Inpatient (IN) | payer MEDICARE, MEDICAID, SELFPAY ==
[2020-08-20 19:53] VITALS: BMI 21.6
[2020-09-01] VITALS (9 sets, daily range): BP systolic 108–120; BP diastolic 74–97; PULSE 93–102; RESP 20–28; TEMP 35.7–36.6; O2SAT 92–96; BMI 22.6; BMI 21.9
--- NOTE | 2020-09-01 15:49 | CT_ITS ---
STUDY: CT BRAIN WITHOUT CONTRAST REASON FOR EXAM: Female, 74 years old. ALTERED MENTAL STATUS RADIATION DOSAGE (If Supplied By Facility): CTDIvol = ( 44.99 ) mGy, DLP = ( 796.11 ) mGycm TECHNIQUE: Transaxial CT imaging of the brain was performed without administration of intravenous contrast material. Individualized dose optimization techniques were used for this CT. COMPARISON: 08/20/2020. FINDINGS: Normal soft tissue structures. Normal calvarium. Calcification of cavernous carotids. Vertebrobasilar dolichoectasia suggesting systemic hypertension. Mild atrophy and moderate periventricular white matter ischemic changes.. 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 Normal brainstem. Normal cerebellum. There is no intracranial hemorrhage. There are no findings of an acute ischemic infarction. Postsurgical changes involving the right orbit. Normal visualized paranasal sinuses. No significant change since prior study CT/Brain/Head without Contrast IMPRESSION: Mild atrophy and moderate periventricular white matter ischemic changes. No evidence for acute bleed. If concern for acute infarct MRI recommended Electronically Signed: Ken Weaver MD at 16:42 EST , Service support ,
--- NOTE | 2020-09-01 15:50 | EKG12_ITS ---
Test Reason : ALTERED LOC Blood Pressure : / mmHG Vent. Rate : 093 BPM Atrial Rate : 136 BPM P-R Int : 000 ms QRS Dur : 070 ms QT Int : 326 ms P-R-T Axes : 000 025 206 degrees QTc Int : 405 ms Atrial fibrillation Nonspecific ST & wave abnormality Abnormal ECG Confirmed by MADISON BHAT, URSULA ([id number]), proposal editor DIANA AHUMADA ([id number]) on 09/03/2020 1:52:08 PM Referred By: KEIRY Confirmed By:URSULA WALLACE MD
--- NOTE | 2020-09-01 15:53 | ED.VISSUMM ---
- ER Visit Summary Date of Service: 09/01/20 Chief Complaint: Altered mental status History of Present Illness: The patient is a 74 F who presents with altered mental status that was noticed today. Patient is normally alert and oriented x4. Patient today is only alert and oriented to person and place. Patient was recently diagnosed and treated for pneumonia and urinary tract infection. Patient had labs done yesterday which showed an elevated INR of 4.1. Coumadin was held. Patient has had decreased mental status. Patient is nonverbal here in the emergency department. Physical Examination: Vital signs are stable. Patient is afebrile here. Patient is nonverbal on examination. Oral mucosa is pink and moist. Neck is supple. Trachea is midline. There is no JVD. Heart was irregularly irregular. Lungs showed scattered rhonchi. There is good respiratory effort. Abdomen is soft. Bowel sounds are normal. There is questionable lower abdominal tenderness. Extremities are intact. There is no lower extremity edema. Test Results: EKG was obtained. On my interpretation, there is atrial fibrillation with a rate of 93. There are nonspecific ST-T wave changes. These are unchanged compared to previous EKG dated 08/20/2020. CBC and comprehensive metabolic profile were obtained. Sodium was slightly elevated at 147 and BUN was 28. Troponin was normal. Lactate was normal. Portable chest x-ray was obtained. There is 1 view. On my interpretation, there is bilateral lower lobe infiltrates. Radiologist interpretation shows interstitial thickening in the lower lobes but no focal infiltrate. CT scan of the brain was obtained. Radiologist interpretation shows no acute bleed or infarct. There are chronic changes. PT with INR was obtained and INR was elevated at 4.0. PTT was obtained and was slightly elevated at 49.6. Emergency Department Course and Treatment: Patient was given IV fluids. Case was discussed with the hospitalist. He will admit the patient to his service. Disposition: Admit to hospital Impression: 1. Altered mental status This note was generated with [facility] [employer] software. It may contain incorrect words, spelling, and punctuation that were not noted in review of the chart prior to signing ED Disposition - Plan for ED Patient: Disposition: Acute Care [facility] Diagnosis: Altered mental status Referrals: Tor Lucia MD [Primary Care Provider] -
[2020-09-01 16:18] LABS: Absolute Lymphocyte Count 1.23 X10^3/uL (0.83-4.51); Absolute Neutrophil Count 7.9 X10^3/uL (2.0-7.7); Basophil# 0.04 X10^3/uL; Basophil% 0.4 % (0-1); Hematocrit 47.3 % (37-47); Hemoglobin 14.2 g/dL (12.0-15.0); Lymphocyte # 1.23 X10^3/ul (4.0); Lymphocyte % 12.2 % (19-41); Mean Corpuscular Hgb 27.3 pg (27.0-32.0); Mean Platelet Vol. 12.7 fl (6.2-12.0); Monocyte# 0.59 X10^3/uL; Monocyte% 5.9 % (0-10); NRBC Flagged by Analyzer 0 % (0-5); Neutrophil # 7.94 X10^3/uL (2.7-7.7); Neutrophil % 78.9 % (47-70); Platelet Count 244 K/mm3 (150-450); RBC Distribution Width CV 18.9 % (11.6-14.6); RBC Distribution Width SD 61.5 fl (35.1-43.9); White Blood Count 10.1 K/mm3 (4.4-11.0)
--- NOTE | 2020-09-01 16:20 | RAD_ITS ---
STUDY: X-RAY CHEST REASON FOR EXAM: Female, 74 years old. COUGH TECHNIQUE: AP portable COMPARISON: 08/20/2020 FINDINGS: Minor interstitial thickening in both lower lobes. No focal infiltration. Elevated left hemidiaphragm and minor discoid atelectasis or scarring in left lower lobe.. There is focal pleural thickening of the right minor fissure. No pleural effusion or pneumothorax Normal size heart. Normal mediastinum and betty. Normal visualized pulmonary arteries. Mildly calcified aortic arch and descending thoracic aorta. Dorsal spine demonstrates scoliosis and degenerative change. Normal visualized ribs and, clavicles. Degenerative changes of the shoulders. There is no demonstrated abnormality of the visualized soft tissue structures of the upper abdomen. RAD/Chest 1 View (Portable) IMPRESSION: Interstitial thickening in the lower lobes. No focal infiltration or gross pulmonary edema Electronically Signed: Ken Weaver MD at 16:45 EST , Service support ,
[2020-09-01 16:35] LABS: ALB/GLOB Ratio 0.6 RATIO (0.9-2.4); AST(SGOT) 26 U/L (15-37); Alanine Aminotransfer ALT/SGPT 30 U/L (13-56); Albumin, Serum 2.8 g/dL (3.2-5.0); Alkaline Phosphatase 138 U/L (45-117); Anion Gap 2 (5-15); BUN 28 mg/dL (7-18); BUN/Creat Ratio 44.2 RATIO (10-20); Calcium,Total 9.5 mg/dL (8.5-10.1); Chloride 107 mmol/L (98-107); Creatinine, Serum 0.63 mg/dL (0.55-1.02); EST Glomerular Filtration Rate 97 mL/min (>60); Est Glom Filt Rate - Afr Amer 117 mL/min (>60); Estimated Creatinine Clearance 43.07 ml/min; Globulin 4.4 g/dL (2.2-4.2); Glucose 99 mg/dL (74-106); Potassium 3.8 mmol/L (3.5-5.1); Protein, Total 7.2 g/dL (6.4-8.2); Sodium Level 147 mmol/L (136-145)
[2020-09-01 16:41] LABS: Lactic Acid 0.8 mmol/L (0.4-1.9)
[2020-09-01 16:43] LABS: Partial Thromboplast Time 49.6 Seconds (24.1-36.2)
--- NOTE | 2020-09-01 16:45 | ED.RN ---
lab called inr of 4.0. dr musa
[2020-09-01] MEDS: 0.9% Normal Saline 1,000 ML 999 ML IV (17:10)
[2020-09-01 17:12] LABS: Bacteria 0 SEEN /hpf (None Seen); Mucous, Urine 0 SEEN /hpf (<or=2+); Red Blood Cells-Urine 0 SEEN /hpf (0-5); Squamous Epithelial Cells - UA 0 SEEN /hpf (5-10); White Blood Cells 0 SEEN /hpf (0-5)
[2020-09-01 17:31] LABS: Color, Urine Yellow (Yellow); Glucose, Dipstick Normal (Normal); Ketone-Dipstick Negative (Negative); Leukocyte Esterase-Dipstick 25 /ul (Negative); Nitrite-Dipstick Negative (Negative); Occult Blood-Urine 10 /ul (Negative); Protein-Dipstick 15 mg/dl (Negative); Specific Gravity, Urine 1.025 (1.002-1.030); Urine Bilirubin Dipstick Negative (Negative); Urine Clarity Clear (Clear); Urine Urobilinogen Normal (Normal)
--- NOTE | 2020-09-01 17:57 | HP.PCM_ITS ---
<Debbie Aguilar MAJOR SALES ASSOCIATE - Last Filed: 09/01/20 18:19> Problem List (1) Back pain Status: Chronic (2) Compression fracture Status: Chronic (3) Other intervertebral disc degeneration, lumbar region Status: Chronic (4) Spinal stenosis, lumbar region with neurogenic claudication Status: Chronic (5) Spondylosis without myelopathy or radiculopathy, lumbar region Status: Chronic (6) Lumbago with sciatica, right side Status: Chronic (7) Inflammation of right sacroiliac joint Status: Inactive (8) Compression fracture of thoracic vertebra with routine healing Status: Chronic (9) Encephalopathy acute Status: Acute (10) Digoxin toxicity Status: Chronic (11) Abnormal EKG Status: Inactive (12) Anxiety Status: Chronic (13) Lethargy Status: Inactive (14) ANKUSH (obstructive sleep apnea) Status: Chronic (15) Chronic hypoxemic respiratory failure Status: Chronic (16) Chronic anticoagulation Status: Chronic (17) Former tobacco use Status: Chronic (18) Depression Status: Chronic (19) Pulmonary hypertension Status: Chronic (20) History of recurrent deep vein thrombosis (DVT) Status: Chronic (21) History of pulmonary embolism Status: Chronic (22) History of cardioversion Status: Chronic Comment: January of 2018.....HR not controlled with exertion while in AF on Beta donna and cardizem. Converted to NSR with cardioversion (23) Paroxysmal atrial fibrillation Status: Chronic Comment: DCCV on 01/31/2018; (24) HTN (hypertension) Status: Chronic (25) Iron deficiency anemia Status: Chronic (26) Chronic diastolic CHF (congestive heart failure) Status: Chronic (27) Dyslipidemia Status: Chronic (28) COPD (chronic obstructive pulmonary disease) Status: Chronic History of Present Illness Date of Admission: 09/01/20 Chief Complaint: Altered mental status. The patient is a 74 year old F who presents to the emergency room from nursing facility due to altered mental status. Patient unable to give HPI due to drowsiness, altered mental status. Daughter at bedside states she has been visiting patient from outside window and noticed last Monday that patient se emed to be lethargic and had not eaten her meal. She states she normally talks to her mom by phone from outside the window and patient has not been able to communicate her function as she normally does. She states yesterday patient was rubbing her stomach and mentioned her stomach hurt. Otherwise, patient has not complained of anything specific. Patient's daughter spoke with MAJOR SALES ASSOCIATE at SNF and due to altered mental status, requested her to be brought to the emergency room for further evaluation. Per records, she has a past medical history of COPD with chronic approximate respiratory failure, chronic heart failure with preserved ejection fraction, pulmonary hypertension, history of DVT/PE, paroxysmal atrial fibrillation, ANKUSH, hypertension, hyperlipidemia, chronic back pain, anxiety/depression. Past Medical History Past Medical History (Chronic Problems): Chronic Problems (Last Reviewed 06/01/20 @ 13:01 by Eveline Jason MAJOR SALES ASSOCIATE, MAJOR SALES ASSOCIATE-C) Back pain (Chronic) Compression fracture (Chronic) Other intervertebral disc degeneration, lumbar region (Chronic) Spinal stenosis, lumbar region with neurogenic claudication (Chronic) Spondylosis without myelopathy or radiculopathy, lumbar region (Chronic) Lumbago with sciatica, right side (Chronic) Compression fracture of thoracic vertebra with routine healing (Chronic) Digoxin toxicity (Chronic) Anxiety (Chronic) ANKUSH (obstructive sleep apnea) (Chronic) Chronic hypoxemic respiratory failure (Chronic) Chronic anticoagulation (Chronic) Former tobacco use (Chronic) Depression (Chronic) Pulmonary hypertension (Chronic) History of recurrent deep vein thrombosis (DVT) (Chronic) History of pulmonary embolism (Chronic) History of cardioversion (Chronic) January of 2018.....HR not controlled with exertion while in AF on Beta donna and cardizem. Converted to NSR with cardioversion Paroxysmal atrial fibrillation (Chronic) [facility] on 01/31/2018; HTN (hypertension) (Chronic) Iron deficiency anemia (Chronic) Chronic diastolic CHF (congestive heart failure) (Chronic) Dyslipidemia (Chronic) COPD (chronic obstructive pulmonary disease) (Chronic) Medical History: Medical History (Last Reviewed 06/01/20 @ 13:01 by Eevline Jason MAJOR SALES ASSOCIATE, MAJOR SALES ASSOCIATE-C) Dyslipidemia (Chronic) E78.5 COPD (chronic obstructive pulmonary disease) (Chronic) J44.9 Atrial fibrillation I48.91 Heart failure with preserved ejection fraction I50.30 Group 2. EF 65% 18 Essential hypertension I10 History of DVT (deep vein thrombosis) Z86.718 History of pulmonary embolus (PE) Z86.711 Pulmonary HTN I27.20 Venous insufficiency I87.2 Allergies amlodipine besylate [From [facility]] Adverse Reaction (Verified 09/01/20 15:28) ANKLE AND LEG EDEMA RESOLVED OFF MED-PER PCP PAPERWORK codeine Adverse Reaction (Verified 09/01/20 15:28) MENTAL STATUS CHANGE lisinopril Adverse Reaction (Verified 09/01/20 15:28) COUGH Home Medications: Ambulatory Orders Medication Instructions Recorded Ergocalciferol [Vitamin D] 50,000 unit PO TH 07/19/15 Citalopram Hydrobromide 40 mg PO DAILY 05/23/18 [Citalopram HBr] Budesonide 2 ml IH BID@1400,2200 01/17/19 Omeprazole 20 mg PO DAILY 01/17/19 Vit A/Vit C/Vit E/Zinc/Copper 1 tab PO BID 01/17/19 [Preservision Areds Tablet] Buspirone HCl 5 mg PO QHS 05/07/19 Sennosides/Docusate Sodium [Senna 2 tab PO QHS 08/22/19 Plus 8.6-50 mg Tablet] gabapentin 100 mg capsule 100 mg PO QHS 08/28/19 Ipratropium/Albuterol Sulfate 3 ml IH BID@0800,2000 04/04/20 [Duoneb] Metoprolol Tartrate [Lopressor 25 mg PO TID 05/27/20 (beta donna)] Warfarin [Coumadin] 2.5 mg PO DAILY 06/26/20 AcetaAZOLAMIDE [Diamox] 250 mg PO BID 08/20/20 Cyanocobalamin (Vitamin B-12) 500 mcg PO DAILY 08/20/20 [Vitamin B-12] Diltiazem HCl 120 mg PO 4X/DAY 08/20/20 Lactobacillus Acidophilus 1 cap PO DAILY 08/20/20 [Acidophilus] Potassium Chloride [Klor-Con M20] 20 meq PO DAILY 08/20/20 Warfarin Sodium 1 mg PO DAILY 08/20/20 Furosemide [Lasix] 20 mg PO DAILY #30 08/23/20 traMADol [Ultram] 25 mg PO TID PRN 2 Days #6 tab 08/23/20 Lorazepam [Ativan] 0.5 mg PO QHS 09/01/20 Surgical History: Surgical History (Last Reviewed 06/01/20 @ 13:01 by Eveline Jason MAJOR SALES ASSOCIATE, MAJOR SALES ASSOCIATE-C) History of cholecystectomy Z90.49 History of total hysterectomy Z90.710 tailbone surgery Surgical History: cholecystectomy, hysterectomy, - - tailbone surgery. Psychiatric History: Anxiety, Depression [employer] History: No pertinent [employer] history Lives: Custodial Smoking Status: Smoker, status unknown Tobacco Use: Non-smoker Alcohol: None Drugs: None - *Family History Maternal Family History: Family History (Last Reviewed 06/01/20 @ 13:01 by Eveline Jason MAJOR SALES ASSOCIATE, MAJOR SALES ASSOCIATE-C) Sister Heart disease History Items: - - Denies known maternal medical history including cardiac history. Paternal Family History: Family History (Last Reviewed 06/01/20 @ 13:01 by Eveline Jason NP, MAJOR SALES ASSOCIATE-C) Sister Heart disease History Items: - - Denies known paternal medical history including cardiac history. Sibling Family History: Family History (Last Reviewed 06/01/20 @ 13:01 by Eveline Jason NP, MAJOR SALES ASSOCIATE-C) Sister Heart disease History Items: Heart Disease Review of Systems Unable to obtain accurate/complete ROS d/t: Unable to obtain ROS due to patient confusion, lethargy VTE Information - Inpt Only VTE Present on Admission: No VTE Mechan Device Prophylaxis: None VTE Pharm Prophylaxis ordered?: No Reason prophylaxis not ordered:: Treatment Not Indicated - Already on anticoagulation with Coumadin Patient Problems: Active and Suspected Problems (Last Reviewed 06/01/20 @ 13:01 by Eveline Jason NP, MAJOR SALES ASSOCIATE-C) Encephalopathy acute (Acute) - Physical Exam Vitals/I&O's: Vital Signs Temp Pulse Resp BP Pulse Ox 97.8 F 97 23 H 110/91 H 95 09/01/20 17:00 09/01/20 17:00 09/01/20 17:00 09/01/20 17:00 09/01/20 17:00 Oxygen Flow Rate (L/min) 2 Oxygen Delivery Method Nasal Cannula Weight: 136 lb 0.403 oz Body Mass Index (BMI) 22.6 Finger Stick Blood Glucose 166 Intake and Output for Last 24 Hours 08/30/20 08/31/20 09/01/20 23:59 23:59 23:59 Intake Total 500 / 500 Balance 500 / 500 General: No apparent distress, Lethargic HEENT: Atraumatic, PERRLA, EOMI, Normocephalic Oral: Dry Mucosa Neck: Supple, No JVD, Negative Carotid Bruits Lungs: Clear to auscultation, Diminished Cardiovascular: Regular rate, No murmurs Abdomen: Bowel Sounds Present, Soft, Non-Distended, - - Right upper quadrant tenderness Extremities: No clubbing, No cyanosis, No edema, Capillary Refill Less than 3 Seconds Skin: No rashes, No breakdown Musculoskeletal: No Tenderness to Palpation of Joints or Extremities Neurological: Cranial nerves II-XII grossly intact, Neuro grossly intact Psych/Mental Status: - - Unable to assess due to lethargy Microbiology Past 72 Hours 09/01/20 16:00 Mucosa - Nose SARS-CoV-2 Antigen (Rapid) - Final Laboratory Results 09/01/20 16:10: WBC 10.1, RBC 5.20, Hgb 14.2, Hct 47.3 H, MCV 91.0, MCH 27.3, MCHC 30.0 L, RDW Std Deviation 61.5 H, RDW Coeff of [place] 18.9 H, Plt Count 244, MPV 12.7 H, Immature Gran % (Auto) 0.600, Neut % (Auto) 78.9 H, Lymph % (Auto) 12.2 L, [place] % (Auto) 5.9, Eos % (Auto) 2.0, Baso % (Auto) 0.4, Absolute Neuts (auto) 7.9 H, Absolute Lymphs (auto) 1.23, Nucleated RBC % 0 09/01/20 16:10: PT 39.0 H, INR 4.0 H*, APTT 49.6 H 09/01/20 16:10: Sodium 147 H, Potassium 3.8, Chloride 107, Carbon Dioxide 38.0 H , Anion Gap 2 L, BUN 28 H, Creatinine 0.63, Estim Creat Clear Calc 43.07, Est GFR (MDRD) Af Amer 117, Est GFR (MDRD) Non-Af 97, BUN/Creatinine Ratio 44.2 H, Glucose 99, Calcium 9.5, Total Bilirubin 0.70, AST 26, ALT 30, Alkaline Phosphatase 138 H, Troponin I < 0.015, Total Protein 7.2, Albumin 2.8 L, Globulin 4.4 H, Albumin/Globulin Ratio 0.6 L 09/01/20 16:10: Lactic Acid 0.8 09/01/20 16:40: Urine Color Yellow, Urine Clarity Clear, Urine pH 5.0, Ur Specific [place] 1.025, Urine Protein 15 H, Urine Glucose (UA) Normal, Urine Ketones Negative, Urine Occult Blood 10 H, Urine Nitrite Negative, Urine Bilirubin Negative, Urine Urobilinogen Normal, Ur Leukocyte Esterase 25 H, Urine RBC 0 SEEN, Urine WBC 0 SEEN, Ur Squamous Epith Cells 0 SEEN, Urine Bacteria 0 SEEN, Urine Mucus 0 SEEN Assessment/Plan All Active Problems (Last Reviewed 06/01/20 @ 13:01 by Eveline Jason MAJOR SALES ASSOCIATE, MAJOR SALES ASSOCIATE- C) Encephalopathy acute (Acute) 1. Acute encephalopathy-unclear etiology. Afebrile, no leukocytosis. Brain CT negative. Chest x-ray without acute process. Urinalysis unremarkable. Obtain CT of abdomen per #2. PT/OT. Gentle IV fluids. 2. RUQ Tenderness-patient with significant tenderness on exam, previously complained of abdominal pain at SNF. Obtain CT of abdomen pelvis with IV and oral contrast for further evaluation. 3. Recent suspected gram-negative pneumonia-completed treatment with antibiotics. Chest x-ray admission without acute process. 4. COPD with chronic approximate respiratory failure-on 2 L nasal cannula supplement oxygen at baseline. Continue supplement oxygen to maintain O2 at or above 90%. 5. Chronic heart failure with preserved ejection fraction-echo August 2019 demonstrated an EF of 65%, mild tricuspid insufficiency, RVSP estimated to be 51 mmHg. 6. Pulmonary hypertension-echo August 2019 demonstrated a PA pressure of 51 mmHg. 7. 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 Hold Coumadin, trend INR. 8. Paroxysmal atrial fibrillation-hold Coumadin due to increased INR. Continue metoprolol, Cardizem. 9. ANKUSH-continue home Pap regimen. 10. Hypertension-stable, continue Cardizem, metoprolol. 11. Hyperlipidemia-not on statin. 12. Chronic back pain-history of compression fracture. Hold gabapentin. On BuSpar. 13. Anxiety/depression-hold as needed Ativan. On buspirone, Escitalopram. DVT prophylaxis-Coumadin CODE STATUS: DNR CCA no intubation per SNF paperwork, confirmed with daughter. This patient was seen by JOSEPH Knox under the supervision of Dr. Mckeon. <Stanley Mckeon F - Last Filed: 09/01/20 18:40> History of Present Illness The patient is a 74 year old F [] Past Medical History Medical History: Medical History (Last Reviewed 06/01/20 @ 13:01 by Eveline Jason NP, MAJOR SALES ASSOCIATE-C) Dyslipidemia (Chronic) E78.5 COPD (chronic obstructive pulmonary disease) (Chronic) J44.9 Atrial fibrillation I48.91 Heart failure with preserved ejection fraction I50.30 Group 2. EF 65% 18 Essential hypertension I10 History of DVT (deep vein thrombosis) Z86.718 History of pulmonary embolus (PE) Z86.711 Pulmonary HTN I27.20 Venous insufficiency I87.2 Allergies amlodipine besylate [From [facility]] Adverse Reaction (Verified 09/01/20 15:28) ANKLE AND LEG EDEMA RESOLVED OFF MED-PER PCP PAPERWORK codeine Adverse Reaction (Verified 09/01/20 15:28) MENTAL STATUS CHANGE lisinopril Adverse Reaction (Verified 09/01/20 15:28) COUGH Surgical History: Surgical History (Last Reviewed 06/01/20 @ 13:01 by Eveline Jason NP, MAJOR SALES ASSOCIATE-C) History of cholecystectomy Z90.49 History of total hysterectomy Z90.710 tailbone surgery - *Family History Maternal Family History: Family History (Last Reviewed 06/01/20 @ 13:01 by Eveline Jason NP, MAJOR SALES ASSOCIATE-C) Sister Heart disease Paternal Family History: Family History (Last Reviewed 06/01/20 @ 13:01 by Eveline Jason NP, MAJOR SALES ASSOCIATE-C) Sister Heart disease Sibling Family History: Family History (Last Reviewed 06/01/20 @ 13:01 by Eveline Jason NP, MAJOR SALES ASSOCIATE-C) Sister Heart disease - Physical Exam Vitals/I&O's: Vital Signs Temp Pulse Resp BP Pulse Ox 97.8 F 97 23 H 110/91 H 95 09/01/20 17:00 09/01/20 17:00 09/01/20 17:00 09/01/20 17:00 09/01/20 18:32 Oxygen Flow Rate (L/min) 2 Oxygen Delivery Method Nasal Cannula Weight: 136 lb 0.403 oz Body Mass Index (BMI) 22.6 Finger Stick Blood Glucose 166 Intake and Output for Last 24 Hours 08/30/20 08/31/20 09/01/20 23:59 23:59 23:59 Intake Total 500 / 500 Balance 500 / 500 Microbiology Past 72 Hours 09/01/20 16:00 Mucosa - Nose SARS-CoV-2 Antigen (Rapid) - Final Laboratory Results 09/01/20 16:10: WBC 10.1, RBC 5.20, Hgb 14.2, Hct 47.3 H, MCV 91.0, MCH 27.3, MCHC 30.0 L, RDW Std Deviation 61.5 H, RDW Coeff of [place] 18.9 H, Plt Count 244, MPV 12.7 H, Immature Gran % (Auto) 0.600, Neut % (Auto) 78.9 H, Lymph % (Auto) 12.2 L, [place] % (Auto) 5.9, Eos % (Auto) 2.0, Baso % (Auto) 0.4, Absolute Neuts (auto) 7.9 H, Absolute Lymphs (auto) 1.23, Nucleated RBC % 0 09/01/20 16:10: PT 39.0 H, INR 4.0 H*, APTT 49.6 H 09/01/20 16:10: Sodium 147 H, Potassium 3.8, Chloride 107, Carbon Dioxide 38.0 H , Anion Gap 2 L, BUN 28 H, Creatinine 0.63, Estim Creat Clear Calc 43.07, Est GFR (MDRD) Af Amer 117, Est GFR (MDRD) Non-Af 97, BUN/Creatinine Ratio 44.2 H, Glucose 99, Calcium 9.5, Total Bilirubin 0.70, AST 26, ALT 30, Alkaline P hosphatase 138 H, Troponin I < 0.015, Total Protein 7.2, Albumin 2.8 L, Globulin 4.4 H, Albumin/Globulin Ratio 0.6 L 09/01/20 16:10: Lactic Acid 0.8 09/01/20 16:40: Urine Color Yellow, Urine Clarity Clear, Urine pH 5.0, Ur Specific [place] 1.025, Urine Protein 15 H, Urine Glucose (UA) Normal, Urine Ketones Negative, Urine Occult Blood 10 H, Urine Nitrite Negative, Urine Bilirubin Negative, Urine Urobilinogen Normal, Ur Leukocyte Esterase 25 H, Urine RBC 0 SEEN, Urine WBC 0 SEEN, Ur Squamous Epith Cells 0 SEEN, Urine Bacteria 0 SEEN, Urine Mucus 0 SEEN Addendum: Dr. Mckeon I personally examined the patient and reviewed the chart. I agree with the above. 74-year-old female from a senior living presents with altered mental status. She was recently admitted to this hospital for pneumonia and to [facility] in July. During [facility] states she did have a UTI however UA here is unremarkable. Work-up for her altered mental status has so far been negative. She does have a little bit of a hypernatremia at 147 and her INR is elevated to 4.0. We will hold her Coumadin and continue to check daily INRs. Chest x-ray and CT of the brain are also unremarkable. The only time you get any sort of response is with pushing on her abdomen therefore will obtain a CT scan of her abdomen pelvis with IV contrast. All of this seemed to have started Monday into Monday per the daughter. She is able to visit outside the window and noticed that her mom was sleeping on Monday which was not necessarily unusual however she continued to be lethargic on Monday and Monday as well. The nurse practitioner evaluated her today and recommended coming into the ER. She may be a little bit dehydrated therefore we will start her on fluids, her hematocrit is a little bit on the high side as well as her elevated sodium. Inpatient E&M: 99690 Init Hosp L2
--- NOTE | 2020-09-01 20:09 | CT_ITS ---
STUDY: CT ABDOMEN AND PELVIS WITH CONTRAST REASON FOR EXAM: Female, 74 years old. DECREASED PO INTAKE. HX OF APPY AND HAYDEN RADIATION DOSAGE (If Supplied By Facility): CTDIvol = ( 16.48 ) mGy, DLP = ( 508.60 ) mGycm TECHNIQUE: Transaxial images were obtained from the dome of the diaphragm to the symphysis pubis without oral contrast. IV 100mL Isovue-370 was administered. Sagittal and coronal images were reconstructed. Individualized dose optimization techniques were used for this CT. COMPARISON: 08/20/2020 FINDINGS: There is interstitial thickening in the lower lobes. There is mild atelectasis at the lung bases. The heart is mildly enlarged and there is multivessel coronary artery calcification Nonspecific fatty infiltration of liver without mass or bile duct dilatation. Gallbladder not visualized consistent with cholecystectomy.. Normal spleen. Normal pancreas. Normal bilateral adrenal glands. Normal right kidney. Normal left kidney. Normal visualized stomach. Mild nonspecific ileus with diffuse fecal retention in the colon and rectal impaction.. Diverticular changes in the distal descending colon with mild stranding in the fat which may be consistent with mild acute inflammatory changes. Appendix not visualized consistent with prior appendectomy. Atherosclerotic changes of the aorta without evidence for aneurysm Normal inferior vena cava. Normal retroperitoneum. Uterus not visualized consistent with hysterectomy Nonspecific distention of the bladder. Normal abdominal wall. Dorsal spine demonstrates scoliosis and degenerative change. Old compression fracture of T11 small area of bony sclerosis within the left proximal femur most likely benign. CT/Abdomen/Pelvis W IV Cont ONLY IMPRESSION: Findings consistent with mild acute diverticulitis of the distal descending colon without evidence for peridiverticular abscess. Diffuse fecal retention in the colon and rectal impaction. Status post cholecystectomy hysterectomy and appendectomy Other findings as above Electronically Signed: Ken Weaver MD at 21:27 EST , Service support ,
[2020-09-01] MEDS: Lactated Ringers 1,000 ML 75 ML IV (20:27)
[2020-09-02] VITALS (22 sets, daily range): BP systolic 107–138; BP diastolic 68–90; PULSE 97–157; RESP 14–22; TEMP 36.2–36.8; O2SAT 95–100; BMI 21.9
[2020-09-02] MEDS: Metoprolol Tartrate 5 MG/5 ML Vial IV ×4 (01:27→11:25)
[2020-09-02 06:52] LABS: Absolute Lymphocyte Count 1.27 X10^3/uL (0.83-4.51); Absolute Neutrophil Count 7.7 X10^3/uL (2.0-7.7); Basophil# 0.03 X10^3/uL; Basophil% 0.3 % (0-1); Eosinophil# 0.22 X10^3/uL; Eosinophils% 2.2 % (0-5); Hematocrit 42.5 % (37-47); Hemoglobin 12.4 g/dL (12.0-15.0); Lymphocyte # 1.27 X10^3/ul (4.0); Lymphocyte % 12.8 % (19-41); Mean Corp Hgb Conc 29.2 g/dL (32-36); Mean Corpuscular Hgb 27.3 pg (27.0-32.0); Mean Corpuscular Volume 93.6 fL (81-99); Mean Platelet Vol. 13.1 fl (6.2-12.0); Monocyte# 0.65 X10^3/uL; Monocyte% 6.5 % (0-10); NRBC Flagged by Analyzer 0 % (0-5); Neutrophil # 7.74 X10^3/uL (2.7-7.7); Neutrophil % 77.8 % (47-70); POSITIVE MORPHOLOGY YES; Platelet Count 201 K/mm3 (150-450); RBC Distribution Width CV 19.2 % (11.6-14.6); RBC Distribution Width SD 65.4 fl (35.1-43.9); Red Blood Count 4.54 M/mm3 (4.2-5.4)
[2020-09-02 06:53] LABS: Differential Indicated SCAN CRITERIA MET
[2020-09-02 06:59] LABS: Prothrombin Time (Protime)PT. 34.7 SECONDS (11.7-14.9)
[2020-09-02 07:00] LABS: International Normalized Ratio 3.5
[2020-09-02 07:08] LABS: Differential Comment SCANNED
[2020-09-02 07:19] LABS: Anion Gap 3 (5-15); BUN 22 mg/dL (7-18); BUN/Creat Ratio 63.4 RATIO (10-20); Chloride 113 mmol/L (98-107); Creatinine, Serum 0.35 mg/dL (0.55-1.02); EST Glomerular Filtration Rate 194 mL/min (>60); Est Glom Filt Rate - Afr Amer 235 mL/min (>60); Estimated Creatinine Clearance 43.07 ml/min; Glucose 83 mg/dL (74-106); Potassium 3.5 mmol/L (3.5-5.1); Sodium Level 148 mmol/L (136-145)
[2020-09-02] MEDS: Lactated Ringers 1,000 ML 75 ML IV (07:52)
--- NOTE | 2020-09-02 09:16 | CASEMGMT ---
Addendum entered by Chiara Stevens 09/02/20 12:29: Pt transferred down to PCU, pt not medically ready for discharge today. YAO placed a call to Stacy at [facility] and updated her no discharge today. YAO placed a call to [facility] and spoke with Chastity. Chastity confirms they are active with pt for Palliative Care. YAO faxed updated clinicals to both [facility] and [facility]. Original Note: Social Work Note YAO reviewed chart. Pt is from [facility]. YAO placed a call to Stacy at [facility]. 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 Chiara Stevens OPERATING ROOM SCHEDULER, SOW FARM TECHNICIAN
--- NOTE | 2020-09-02 09:43 | NT.THERAPY_ITS ---
Nutrition Therapy Report - History Nutrition Services has been consulted to:: Manage nutrient details of diet order Current diet / nutrition support order:: NPO; ensure enlive 120mL 4x/day - Anthropometric Measurements Height:: 5 ft 5 in Weight:: 59.9 kg Body Mass Index (BMI):: 21.9 - Relevant Labs Relevant Labs:: Hct 47.3 % (37-47) H 09/01/20 16:10 MCHC 29.2 g/dL (32-36) L 09/02/20 06:24 RDW Std Deviation 65.4 fl (35.1-43.9) H 09/02/20 06:24 RDW Coeff of [place] 19.2 % (11.6-14.6) H 09/02/20 06:24 MPV 13.1 fl (6.2-12.0) H 09/02/20 06:24 Neut % (Auto) 77.8 % (47-70) H 09/02/20 06:24 Lymph % (Auto) 12.8 % (19-41) L 09/02/20 06:24 Absolute Neuts (auto) 7.9 X10^3/uL (2.0-7.7) H 09/01/20 16:10 PT 34.7 SECONDS (11.7-14.9) H 09/02/20 06:24 INR 3.5 H* 09/02/20 06:24 APTT 49.6 Seconds (24.1-36.2) H 09/01/20 16:10 Sodium 148 mmol/L (136-145) H 09/02/20 06:24 Chloride 113 mmol/L (98-107) H 09/02/20 06:24 Carbon Dioxide 38.0 mmol/L (21.0-32.0) H 09/01/20 16:10 Anion Gap 3 (5-15) L 09/02/20 06:24 BUN 22 mg/dL (7-18) H 09/02/20 06:24 Creatinine 0.35 mg/dL (0.55-1.02) L 09/02/20 06:24 BUN/Creatinine Ratio 63.4 RATIO (10-20) H 09/02/20 06:24 Alkaline Phosphatase 138 U/L (45-117) H 09/01/20 16:10 Albumin 2.8 g/dL (3.2-5.0) L 09/01/20 16:10 Globulin 4.4 g/dL (2.2-4.2) H 09/01/20 16:10 Albumin/Globulin Ratio 0.6 RATIO (0.9-2.4) L 09/01/20 16:10 - Assessment Food / Nutrition-Related History:: Pt lethargic, unable to participate in interview. Information gathered from EMR. Reported decreased appetite/intake DIRECTOR OF IN SERVICE EDUCATION per family upon admission. Pt w/ recent [facility] admissions- it appears per previous RDN documentation that issues w/ PO intake/appetite have been ongoing over past few months. Noted wt loss of 6.8#/~5% since 08/20/20; wt loss of 28.8#/17.8% since 06/26/20. - Nutrition Diagnosis Problem / Etiology / Signs & Symptoms (PES):: severe, acute malnutrition related to inadequate energy intake d/t acute episodes of encephalopathy, recent hospitalizations as evidenced by reported PO intake meeting <75% of estimated nutritional needs x 2 months, wt loss of 6.8#/~5% since 08/20/20; wt loss of 28.8#/17.8% since 06/26/20. Evidence of Malnutrition Exists:: Yes Severe PCM:: Acute Illness - Nutrition Intervention Nutrition Prescription:: 0976-2213 calories/day (1.3xRMR). 50-60 g protien/day (1g/kg). 1600mL fluid/day (1mL/calorie) - Food / Nutrient Delivery Interventions Summary of nutrition intervention:: MAIL HANDLERS SUPERVISOR consulted for evaluation prior to initiation of PO diet. Nutrition support ordered as / adjusted to:: Advance diet as tolerated to transitional; as tolerance of PO diet is established, recommend regular diet- consistency per MAIL HANDLERS SUPERVISOR. Ensure Enlive w/ medpass when appropriate for PO intake. - MNT Monitoring Further MNT monitoring and evaluation required?: Yes MNT Follow-up in:: 3-5 days
[2020-09-02] MEDS: Dextrose 50%-Water 25 GM/50 ML DISP.SYRIN IV (10:00)
[2020-09-02 10:01] LABS: Bedside Glucose 70 mg/dL (70-110)
[2020-09-02] MEDS: Dextrose 5%/0.9% NaCl 1,000 ML 75 ML IV (10:30)
[2020-09-02] MEDS: Menthol/Lanolin/Calamine/Znox 113 GM Tube 1 APPLIC TOPICAL ×2 (10:32→22:28)
[2020-09-02] MEDS: Nystatin Powder 15gm Bottle 1 APPLIC TOPICAL ×2 (10:33→22:28)
[2020-09-02 10:36] LABS: Allen Test Positive; Base Excess 8 mmol/L (-2 to +2); Bicarbonate 34.9 mmol/L (22-26); Blood Gas Specimen Type ART; O2 Delivery Device Cannula; PO2 82 mmHG (75-100); SITE L Radial; SO2 93 % (95-99); Total Carbon Dioxide 37 mmol/L; pCO2 78.5 mmHg (35-45); pH 7.26 (7.35-7.45)
[2020-09-02 10:45] LABS: Bedside Glucose 202 mg/dL (70-110)
--- NOTE | 2020-09-02 10:51 | NURSING ---
spoke with nurse at [facility]- states [facility] own bipap machine is at [facility] and will make available at front office specialist for pt daughter to brick picker. phoned Irene (as per demographics sheet) and updated. Irene states she can stop by [facility] and brick picker pt own bipap and bring here for pt to use. Irene states I tried having her use it at the [place] but she wouldn't keep it on. updated on pt status and POC. Irene states it will be about one hour for her to get pt own bipap machine to bring in for pt to use.
--- NOTE | 2020-09-02 11:05 | CPS ---
Critical blood gas results given to Dr. Santos. This RT talked with the laborer shipyard, Sera and called daughter to bring [facility] unit in [facility]. in agreement to wait til home unit arrives and will place pt on home unit. Per RN will be here within the hour.
[2020-09-02] MEDS: 0.9% Saline Lock 10 ML Syringe IV (11:24)
[2020-09-02] MEDS: dilTIAZem 60 MG Tablet 120 MG PO ×3 (12:08→22:12)
--- NOTE | 2020-09-02 13:43 | CPS ---
patient is on her home bipap unit.
--- NOTE | 2020-09-02 13:59 | PN_ITS ---
<Debbie Aguilar SLAB LIFTING ENGINEER - Last Filed: 09/02/20 14:05> Patient Problems: Active and Suspected Problems (Last Reviewed 06/01/20 @ 13:01 by Eveline nuñez SLAB LIFTING ENGINEER, SLAB LIFTING ENGINEER-C) Encephalopathy acute (Acute) Subjective: Patient seen and examined. Remains drowsy this morning. Per nursing, had multiple bowel movements. Patient does not appear to have ongoing abdominal pain. - Physical Exam Vitals/I&O's: Vital Signs Temp Pulse Resp BP Pulse Ox 97.1 F L 109 H 18 117/78 97 09/02/20 12:31 09/02/20 12:31 09/02/20 12:31 09/02/20 12:31 09/02/20 12:31 Oxygen Flow Rate (L/min) 3 Oxygen Delivery Method Nasal Cannula Weight: 132 lb 0.91 oz Body Mass Index (BMI) 21.9 Finger Stick Blood Glucose 166 Intake and Output for Last 24 Hours 08/31/20 09/01/20 09/02/20 23:59 23:59 23:59 Intake Total 1500 / 1500 1893.75 / 1893.75 Output Total 700 / 700 Balance 1500 / 1500 1193.75 / 1193.75 General: No apparent distress, - - Drowsy HEENT: Atraumatic, PERRLA, EOMI, Normocephalic Neck: Supple, No JVD, Negative Carotid Bruits Lungs: Clear to auscultation, Normal air movement Cardiovascular: Regular rate, No murmurs Abdomen: Bowel Sounds Present, Soft, Non Tender, Non-Distended Extremities: No clubbing, No cyanosis, No edema, Capillary Refill Less than 3 Seconds Skin: No rashes, No breakdown Musculoskeletal: No Tenderness to Palpation of Joints or Extremities Neurological: Cranial nerves II-XII grossly intact, Neuro grossly intact Psych/Mental Status: Normal Affect, Appropriate Microbiology Past 72 Hours 09/01/20 16:00 Mucosa - Nose SARS-CoV-2 Antigen (Rapid) - Final Laboratory Results 09/01/20 16:10: WBC 10.1, RBC 5.20, Hgb 14.2, Hct 47.3 H, MCV 91.0, MCH 27.3, MCHC 30.0 L, RDW Std Deviation 61.5 H, RDW Coeff of Laura 18.9 H, Plt Count 244, MPV 12.7 H, Immature Gran % (Auto) 0.600, Neut % (Auto) 78.9 H, Lymph % (Auto) 12.2 L, [place] % (Auto) 5.9, Eos % (Auto) 2.0, Baso % (Auto) 0.4, Absolute Neuts (auto) 7.9 H, Absolute Lymphs (auto) 1.23, Nucleated RBC % 0 09/01/20 16:10: PT 39.0 H, INR 4.0 H*, APTT 49.6 H 09/01/20 16:10: Sodium 147 H, Potassium 3.8, Chloride 107, Carbon Dioxide 38.0 H , Anion Gap 2 L, BUN 28 H, Creatinine 0.63, Estim Creat Clear Calc 43.07, Est GFR (MDRD) Af Amer 117, Est GFR (MDRD) Non-Af 97, BUN/Creatinine Ratio 44.2 H, Glucose 99, Calcium 9.5, Total Bilirubin 0.70, AST 26, ALT 30, Alkaline Phosphatase 138 H, Troponin I < 0.015, Total Protein 7.2, Albumin 2.8 L, Globulin 4.4 H, Albumin/Globulin Ratio 0.6 L 09/01/20 16:10: Lactic Acid 0.8 09/01/20 16:40: Urine Color Yellow, Urine Clarity Clear, Urine pH 5.0, Ur Specific [place] 1.025, Urine Protein 15 H, Urine Glucose (UA) Normal, Urine Ketones Negative, Urine Occult Blood 10 H, Urine Nitrite Negative, Urine Bilirubin Negative, Urine Urobilinogen Normal, Ur Leukocyte Esterase 25 H, Urine RBC 0 SEEN, Urine WBC 0 SEEN, Ur Squamous Epith Cells 0 SEEN, Urine Bacteria 0 SEEN, Urine Mucus 0 SEEN 09/02/20 06:24: WBC 10.0, RBC 4.54, Hgb 12.4, Hct 42.5, MCV 93.6, MCH 27.3, MCHC 29.2 L, RDW Std Deviation 65.4 H, RDW Coeff of Laura 19.2 H, Plt Count 201, MPV 13.1 H, Immature Gran % (Auto) 0.400, Neut % (Auto) 77.8 H, Lymph % (Auto) 12.8 L, [place] % (Auto) 6.5, Eos % (Auto) 2.2, Baso % (Auto) 0.3, Absolute Neuts (auto) 7.7, Absolute Lymphs (auto) 1.27, Nucleated RBC % 0, Differential Comment SCANNED 09/02/20 06:24: PT 34.7 H, INR 3.5 H* 09/02/20 06:24: Sodium 148 H, Potassium 3.5, Chloride 113 H, Carbon Dioxide 32.0, Anion Gap 3 L, BUN 22 H, Creatinine 0.35 L, Estim Creat Clear Calc 43.07, Est GFR (MDRD) Af Amer 235, Est GFR (MDRD) Non-Af 194, BUN/Creatinine Ratio 63.4 H, Glucose 83, Calcium 9.0 09/02/20 09:56: POC Glucose 70 09/02/20 10:29: Specimen Type ART, Sample Site L Radial, pH 7.26 L, Bicarbonate Actual 34.9 H, Total CO2 37, Base Excess 8 H, O2 Saturation 93 L, ABG pCO2 78.5 H*, ABG pO2 82, Mj Test Positive, O2 Delivery Device Cannula, Liter Flow 2.0 09/02/20 10:37: POC Glucose 202 H Current Medications Acetaminophen (Acetaminophen 325 Mg Tablet) 650 mg PO Q6H PRN PRN PRN Reason: Pain Score 1-10/Temp > 100.7 F Albuterol Sulfate (Albuterol 2.5 Mg/3 Ml Vial.Neb.) 2.5 mg INHALATION Q2H PRN PRN PRN Reason: Shortness of Breath/Wheezing Buspirone HCl (Buspirone 5 Mg Tablet) 5 mg PO QHS [facility] Last Admin: 09/01/20 22:49 Dose: Not Given Documented by: Calamine/Phenol (Menthol/Lanolin/Calamine/Znox 113 Gm Tube) 1 applic TOPICAL BID [facility]; Protocol Last Admin: 09/02/20 10:32 Dose: 1 applicatio Documented by: Citalopram Hydrobromide (Citalopram 40 Mg Tablet) 40 mg PO DAILY [facility] Last Admin: 09/02/20 11:09 Dose: Not Given Documented by: Dextrose (Dextrose 50%-Water 25 Gm/50 Ml Disp.Syrin) 0 gm IV X1 PRN; Protocol PRN Reason: Hypoglycemia Last Admin: 09/02/20 10:00 Dose: 50 gm Documented by: Diltiazem HCl (Diltiazem 60 Mg Tablet) 120 mg PO 4X/DAY [facility] Last Admin: 09/02/20 12:08 Dose: 120 mg Documented by: Glucagon (Glucagon 1 Mg/Ml Syringe) 1 mg IM .X1 PRN PRN Reason: Hypoglycemia Dextrose/Sodium Chloride (Dextrose 5%/0.9% Nacl) 1,000 mls @ 30 mls/hr IV .[id number] [facility] Last Infusion: 09/02/20 11:00 Dose: 30 mls/hr Documented by: Metoprolol Tartrate (Metoprolol Tartrate 5 Mg/5 Ml Vial) 5 mg IV Q6 [facility] Last Admin: 09/02/20 11:25 Dose: 5 mg Documented by: Nutritional Formula (Lactose Free) (Ensure Enlive 120 Ml Liquid) 120 ml PO 4X/DAY [facility] Last Admin: 09/02/20 10:32 Dose: Not Given Documented by: Nystatin (Nystatin Powder 15gm Bottle) 1 applic TOPICAL BID [facility]; Protocol Last Admin: 09/02/20 10:33 Dose: 1 applicatio Documented by: Ondansetron HCl (Ondansetron 4 Mg/2 Ml Vial) 4 mg IV Q8H PRN PRN PRN Reason: NAUSEA/VOMITING Pantoprazole Sodium (Pantoprazole Sodium 20 Mg Tablet) 20 mg PO DAILY [facility] Last Admin: 09/02/20 11:09 Dose: Not Given Documented by: Potassium Chloride (Potassium Chloride Oral Tablet 20 Meq) 20 meq PO DAILYCM [facility] Last Admin: 09/02/20 11:08 Dose: Not Given Documented by: Sodium Chloride (0.9% Saline Lock 10 Ml Syringe) 10 - 40 ml IV UD PRN PRN Reason: SALINE FLUSH Last Admin: 09/02/20 11:24 Dose: 10 ml Documented by: Medical Necessity - Tobacco Use Smoking Status: Smoker, status unknown Tobacco Use: Non-smoker Assessment/Plan All Active Problems (Last Reviewed 06/01/20 @ 13:01 by Eveline Jason SLAB LIFTING ENGINEER, SLAB LIFTING ENGINEER- C) Encephalopathy acute (Acute) 1. Acute encephalopathy-Afebrile, no leukocytosis. Brain CT negative. Chest x-ray without acute process. Urinalysis unremarkable. ABGs completed which demonstrated PCO2 of 78. Patient did not wear home BiPAP regimen overnight. CT of abdomen pelvis shows diffuse fecal retention. Suspect hypercapnia contributing to acute encephalopathy. Patient's daughter to bring in home Pap regimen. 2. Constipation- CT demonstrated diffuse fecal retention. Patient had multiple bowel movements this a.m. Initiate bowel regimen. 3. Recent suspected gram-negative pneumonia-completed treatment with antibiotics. Chest x-ray admission without acute process. 4. COPD with chronic approximate respiratory failure-on 2 L nasal cannula supplement oxygen at baseline. Continue supplement oxygen to maintain O2 at or above 90%. 5. Chronic heart failure with preserved ejection fraction-echo August 2019 demonstrated an EF of 65%, mild tricuspid insufficiency, RVSP estimated to be 51 mmHg. 6. Pulmonary hypertension-echo August 2019 demonstrated a PA pressure of 51 mmHg. 7. 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 Hold Coumadin, trend INR. 8. Paroxysmal atrial fibrillation-hold Coumadin due to increased INR. Continue metoprolol, Cardizem. 9. ANKUSH-continue home Pap regimen. 10. Hypertension-stable, continue Cardizem, metoprolol. 11. Hyperlipidemia-not on statin. 12. Chronic back pain-history of compression fracture. Hold gabapentin. On BuSpar. 13. Anxiety/depression-hold as needed Ativan. On buspirone, Escitalopram. DVT prophylaxis-Coumadin CODE STATUS: DNR CCA no intubation per SNF paperwork, confirmed with daughter. This patient was seen by JOSEPH Knox under the supervision of Dr. Santos. <Magalis Santos - Last Filed: 09/02/20 17:04> - Physical Exam Vitals/I&O's: Vital Signs Temp Pulse Resp BP Pulse Ox 97.1 F L 111 H 18 117/78 97 09/02/20 12:31 09/02/20 15:00 09/02/20 12:31 09/02/20 12:31 09/02/20 12:31 Oxygen Flow Rate (L/min) 3 Oxygen Delivery Method Nasal Cannula Weight: 59.9 kg Body Mass Index (BMI) 21.9 Finger Stick Blood Glucose 166 Intake and Output for Last 24 Hours 08/31/20 09/01/20 09/02/20 23:59 23:59 23:59 Intake Total 1500 / 1500 1893.75 / 1893.75 Output Total 700 / 700 Balance 1500 / 1500 1193.75 / 1193.75 Microbiology Past 72 Hours 09/01/20 16:00 Mucosa - Nose SARS-CoV-2 Antigen (Rapid) - Final Laboratory Results 09/01/20 16:40: Urine Color Yellow, Urine Clarity Clear, Urine pH 5.0, Ur Specific [place] 1.025, Urine Protein 15 H, Urine Glucose (UA) Normal, Urine Ketones Negative, Urine Occult Blood 10 H, Urine Nitrite Negative, Urine Bilirubin Negative, Urine Urobilinogen Normal, Ur Leukocyte Esterase 25 H, Urine RBC 0 SEEN, Urine WBC 0 SEEN, Ur Squamous Epith Cells 0 SEEN, Urine Bacteria 0 SEEN, Urine Mucus 0 SEEN 09/02/20 06:24: WBC 10.0, RBC 4.54, Hgb 12.4, Hct 42.5, MCV 93.6, MCH 27.3, MCHC 29.2 L, RDW Std Deviation 65.4 H, RDW Coeff of Laura 19.2 H, Plt Count 201, MPV 13.1 H, Immature Gran % (Auto) 0.400, Neut % (Auto) 77.8 H, Lymph % (Auto) 12.8 L, [place] % (Auto) 6.5, Eos % (Auto) 2.2, Baso % (Auto) 0.3, Absolute Neuts (auto) 7.7, Absolute Lymphs (auto) 1.27, Nucleated RBC % 0, Differential Comment SCANNED 09/02/20 06:24: PT 34.7 H, INR 3.5 H* 09/02/20 06:24: Sodium 148 H, Potassium 3.5, Chloride 113 H, Carbon Dioxide 32.0, Anion Gap 3 L, BUN 22 H, Creatinine 0.35 L, Estim Creat Clear Calc 43.07, Est GFR (MDRD) Af Amer 235, Est GFR (MDRD) Non-Af 194, BUN/Creatinine Ratio 63.4 H, Glucose 83, Calcium 9.0 09/02/20 09:56: POC Glucose 70 09/02/20 10:29: Specimen Type ART, Sample Site L Radial, pH 7.26 L, Bicarbonate Actual 34.9 H, Total CO2 37, Base Excess 8 H, O2 Saturation 93 L, ABG pCO2 78.5 H*, ABG pO2 82, Mj Test Positive, O2 Delivery Device Cannula, Liter Flow 2.0 09/02/20 10:37: POC Glucose 202 H Current Medications Acetaminophen (Acetaminophen 325 Mg Tablet) 650 mg PO Q6H PRN PRN PRN Reason: Pain Score 1-10/Temp > 100.7 F Albuterol Sulfate (Albuterol 2.5 Mg/3 Ml Vial.Neb.) 2.5 mg INHALATION Q2H PRN PRN PRN Reason: Shortness of Breath/Wheezing Buspirone HCl (Buspirone 5 Mg Tablet) 5 mg PO QHS [facility] Last Admin: 09/01/20 22:49 Dose: Not Given Documented by: Calamine/Phenol (Menthol/Lanolin/Calamine/Znox 113 Gm Tube) 1 applic TOPICAL BID [facility]; Protocol Last Admin: 09/02/20 10:32 Dose: 1 applicatio Documented by: Citalopram Hydrobromide (Citalopram 40 Mg Tablet) 40 mg PO DAILY [facility] Last Admin: 09/02/20 11:09 Dose: Not Given Documented by: Dextrose (Dextrose 50%-Water 25 Gm/50 Ml Disp.Syrin) 0 gm IV X1 PRN; Protocol PRN Reason: Hypoglycemia Last Admin: 09/02/20 10:00 Dose: 50 gm Documented by: Diltiazem HCl (Diltiazem 60 Mg Tablet) 120 mg PO 4X/DAY [facility] Last Admin: 09/02/20 12:08 Dose: 120 mg Documented by: Docusate Sodium (Docusate Sodium 100 Mg Capsule) 100 mg PO BID [facility] Glucagon (Glucagon 1 Mg/Ml Syringe) 1 mg IM .X1 PRN PRN Reason: Hypoglycemia Dextrose/Sodium Chloride (Dextrose 5%/0.9% Nacl) 1,000 mls @ 30 mls/hr IV .[id number] [facility] Last Infusion: 09/02/20 11:00 Dose: 30 mls/hr Documented by: Metoprolol Tartrate (Metoprolol Tartrate 5 Mg/5 Ml Vial) 5 mg IV Q6 [facility] Last Admin: 09/02/20 11:25 Dose: 5 mg Documented by: Nutritional Formula (Lactose Free) (Ensure Enlive 120 Ml Liquid) 120 ml PO 4X/DAY [facility] Last Admin: 09/02/20 14:38 Dose: Not Given Documented by: Nystatin (Nystatin Powder 15gm Bottle) 1 applic TOPICAL BID [facility]; Protocol Last Admin: 09/02/20 10:33 Dose: 1 applicatio Documented by: Ondansetron HCl (Ondansetron 4 Mg/2 Ml Vial) 4 mg IV Q8H PRN PRN PRN Reason: NAUSEA/VOMITING Pantoprazole Sodium (Pantoprazole Sodium 20 Mg Tablet) 20 mg PO DAILY [facility] Last Admin: 09/02/20 11:09 Dose: Not Given Documented by: Polyethylene Glycol (Polyethylene Glycol 3350 17 Gm Packet) 17 gm PO DAILY [facility] Potassium Chloride (Potassium Chloride Oral Tablet 20 Meq) 20 meq PO DAILYCM [facility] Last Admin: 09/02/20 11:08 Dose: Not Given Documented by: Sodium Chloride (0.9% Saline Lock 10 Ml Syringe) 10 - 40 ml IV UD PRN PRN Reason: SALINE FLUSH Last Admin: 09/02/20 11:24 Dose: 10 ml Documented by: Assessment/Plan This patient was seen in conjunction with Debbie Aguilar SLAB LIFTING ENGINEER. I have independently interviewed and examined the patient and reviewed pertinent historical, laboratory, and other data. Please refer to her note for patient's presentation, findings, and recommendations. Patient was seen and examined. She initially was very lethargic, hard to wake up. Blood glucose was 70, this was treated. He came persistently lethargic, ABG showed respiratory acidosis No acute events overnight. Vitals were reviewed -stable Physical Exam: Gen: Looks in some discomfort, not pale, not jaundiced, alert oriented x3 CVS:HS I +II, regular, no murmurs RESP: Diminished at lung bases GI: BS present and normal, nontender, no palpable organs EXT:No edema Labs reviewed: ASSESSMENT: 1. Acute metabolic encephalopathy 2. Acute hypercapnic respiratory failure 3. Acute diverticulitis 4. A. Fib with RVR 5. Constipation 6. COPD with chronic respiratory failure 7. Hypertension 8. Hyperlipidemia 9. Chronic back pain 10. Anxiety/depression Meds reviewed Plan: Continue on BiPAP, breathing treatments Continue IV antibiotics Continue with home medications -Cardizem and metoprolol Continue to hold warfarin Repeat INR and labs in am Inpatient E&M: [id number] [facility] L[facility]
--- NOTE | 2020-09-02 14:57 | CASEMGMT ---
RN CM readmission note: Patient was admitted 08/20/2020-08/23/2020 for pneumonia. Patient was discharged back to [facility] on oral antibiotics. Patient returned on 09/01/2020 for acute encephalopathy. Patient receiving IV fluids and therapy. Plan is for patient to return to [facility] with retirement care and resumption of Palliative Care. CM will continue to follow and plan for a safe discharge.
[2020-09-02 17:35] LABS: Bedside Glucose 124 mg/dL (70-110)
[2020-09-02] MEDS: Ipratropium 0.5 MG/2.5 ML SOLUTION INHALATION (20:17)
[2020-09-02] MEDS: busPIRone 5 MG Tablet PO (22:12)
[2020-09-02] MEDS: Docusate Sodium 100 MG Capsule PO (22:31)
[2020-09-02 23:21] LABS: Bedside Glucose 81 mg/dL (70-110)
[2020-09-03] VITALS (41 sets, daily range): BP systolic 85–127; BP diastolic 47–87; PULSE 80–148; RESP 11–33; TEMP 36.4–37.1; O2SAT 93–100
--- NOTE | 2020-09-03 00:46 | CPS ---
pt had trilogy on for 1 and 1/5 hour. Pt took off mask herself, found on RA 86% nasal o2 applied 3.5L. Pt recovered quickly with spo2 level
[2020-09-03] MEDS: dilTIAZem 25 MG/5 ML Vial 5 MG IV BOLUS (03:07)
[2020-09-03] MEDS: dilTIAZem 25 MG/5 ML Vial 10 MG IV BOLUS (04:10)
[2020-09-03] MEDS: Amiodarone 360 MG in Dextrose 5% Viaflo Bag 192.8 ML 33.3 MG CONT INF (05:47)
[2020-09-03 05:50] LABS: Absolute Lymphocyte Count 1.35 X10^3/uL (0.83-4.51); Absolute Neutrophil Count 5.8 X10^3/uL (2.0-7.7); Basophil# 0.03 X10^3/uL; Basophil% 0.4 % (0-1); Eosinophil# 0.27 X10^3/uL; Eosinophils% 3.4 % (0-5); Hematocrit 39.5 % (37-47); Hemoglobin 11.5 g/dL (12.0-15.0); Lymphocyte # 1.35 X10^3/ul (4.0); Lymphocyte % 16.9 % (19-41); Mean Corp Hgb Conc 29.1 g/dL (32-36); Mean Corpuscular Volume 92.7 fL (81-99); Mean Platelet Vol. 12.9 fl (6.2-12.0); Monocyte# 0.53 X10^3/uL; Monocyte% 6.6 % (0-10); NRBC Flagged by Analyzer 0 % (0-5); Neutrophil # 5.78 X10^3/uL (2.7-7.7); Neutrophil % 72.6 % (47-70); Platelet Count 222 K/mm3 (150-450); RBC Distribution Width CV 18.7 % (11.6-14.6); Red Blood Count 4.26 M/mm3 (4.2-5.4)
[2020-09-03 06:05] LABS: International Normalized Ratio 2.7; Prothrombin Time (Protime)PT. 28.2 SECONDS (11.7-14.9)
[2020-09-03 06:30] LABS: ALB/GLOB Ratio 0.5 RATIO (0.9-2.4); AST(SGOT) 24 U/L (15-37); Alanine Aminotransfer ALT/SGPT 20 U/L (13-56); Alkaline Phosphatase 110 U/L (45-117); Anion Gap 3 (5-15); BUN 14 mg/dL (7-18); BUN/Creat Ratio 42.4 RATIO (10-20); Calcium,Total 8.3 mg/dL (8.5-10.1); Chloride 110 mmol/L (98-107); Creatinine, Serum 0.33 mg/dL (0.55-1.02); EST Glomerular Filtration Rate 206 mL/min (>60); Est Glom Filt Rate - Afr Amer 249 mL/min (>60); Estimated Creatinine Clearance 43.07 ml/min; Globulin 3.7 g/dL (2.2-4.2); Glucose 83 mg/dL (74-106); Potassium 3.2 mmol/L (3.5-5.1); Protein, Total 5.7 g/dL (6.4-8.2); Sodium Level 144 mmol/L (136-145)
[2020-09-03 06:36] LABS: Bedside Glucose 89 mg/dL (70-110)
[2020-09-03] MEDS: Ipratropium 0.5 MG/2.5 ML SOLUTION INHALATION ×4 (07:43→20:16)
--- NOTE | 2020-09-03 08:42 | PCM.PN.HOSP ---
Patient Problems: Active and Suspected Problems (Last Reviewed 06/01/20 @ 13:01 by Eveline Jason CHILD PROTECTIVE SERVICES SOCIAL WORKER, CHILD PROTECTIVE SERVICES SOCIAL WORKER-C) Encephalopathy acute (Acute) Reason for Visit: Follow-up on acute metabolic encephalopathy Subjective: Was seen and examined. No acute events overnight. She denied any new complaints. Objective: Physical Exam: Gen: Looks in some discomfort, not pale, not jaundiced, alert oriented x3 CVS:HS I +II, regular, no murmurs RESP: Diminished at lung bases GI: BS present and normal, mild left lower quadrant tenderness with some guarding but no rebound tenderness, no palpable organs EXT:No edema Vitals/I&O's: Vital Signs Temp Pulse Resp BP Pulse Ox 98 F 136 H 19 H 127/70 H 100 09/03/20 07:00 09/03/20 08:00 09/03/20 08:00 09/03/20 08:00 09/03/20 08:00 Oxygen Flow Rate (L/min) 3 Oxygen Delivery Method Nasal Cannula Weight: 61.7 kg Body Mass Index (BMI) 21.9 Finger Stick Blood Glucose 166 Intake and Output for Last 24 Hours 09/01/20 09/02/20 09/03/20 23:59 23:59 23:59 Intake Total 1500 / 1500 2388.75 / 2388.75 185.84 / 185.84 Output Total 701 / 701 Balance 1500 / 1500 1687.75 / 1687.75 185.84 / 185.84 Microbiology Past 72 Hours 09/01/20 16:00 Mucosa - Nose SARS-CoV-2 Antigen (Rapid) - Final Laboratory Results 09/02/20 09:56: POC Glucose 70 09/02/20 10:29: Specimen Type ART, Sample Site L Radial, pH 7.26 L, Bicarbonate Actual 34.9 H, Total CO2 37, Base Excess 8 H, O2 Saturation 93 L, ABG pCO2 78.5 H*, ABG pO2 82, Mj Test Positive, O2 Delivery Device Cannula, Liter Flow 2.0 09/02/20 10:37: POC Glucose 202 H 09/02/20 17:20: POC Glucose 124 H 09/02/20 22:41: POC Glucose 81 09/03/20 05:44: WBC 8.0, RBC 4.26, Hgb 11.5 L, Hct 39.5, MCV 92.7, MCH 27.0, MCHC 29.1 L, RDW Std Deviation 64.0 H, RDW Coeff of Laura 18.7 H, Plt Count 222, MPV 12.9 H, Immature Gran % (Auto) 0.100, Neut % (Auto) 72.6 H, Lymph % (Auto) 16.9 L, [place] % (Auto) 6.6, Eos % (Auto) 3.4, Baso % (Auto) 0.4, Absolute Neuts (auto) 5.8, Absolute Lymphs (auto) 1.35, Nucleated RBC % 0 09/03/20 05:44: PT 28.2 H, INR 2.7 09/03/20 05:44: Sodium 144, Potassium 3.2 L, Chloride 110 H, Carbon Dioxide 31.0, Anion Gap 3 L, BUN 14, Creatinine 0.33 L, Estim Creat Clear Calc 43.07, Est GFR (MDRD) Af Amer 249, Est GFR (MDRD) Non-Af 206, BUN/Creatinine Ratio 42.4 H, Glucose 83, Calcium 8.3 L, Total Bilirubin 0.70, AST 24, ALT 20, Alkaline Phosphatase 110, Total Protein 5.7 L, Albumin 2.0 L, Globulin 3.7, Albumin/Globulin Ratio 0.5 L 09/03/20 05:45: POC Glucose 89 Current Medications Acetaminophen (Acetaminophen 325 Mg Tablet) 650 mg PO Q6H PRN PRN PRN Reason: Pain Score 1-10/Temp > 100.7 F Albuterol Sulfate (Albuterol 2.5 Mg/3 Ml Vial.Neb.) 2.5 mg INHALATION Q2H PRN PRN PRN Reason: Shortness of Breath/Wheezing Buspirone HCl (Buspirone 5 Mg Tablet) 5 mg PO QHS [facility] Last Admin: 09/02/20 22:12 Dose: 5 mg Documented by: Calamine/Phenol (Menthol/Lanolin/Calamine/Znox 113 Gm Tube) 1 applic TOPICAL BID [facility]; Protocol Last Admin: 09/02/20 22:28 Dose: 1 applicatio Documented by: Citalopram Hydrobromide (Citalopram 40 Mg Tablet) 40 mg PO DAILY [facility] Last Admin: 09/02/20 11:09 Dose: Not Given Documented by: Dextrose (Dextrose 50%-Water 25 Gm/50 Ml Disp.Syrin) 0 gm IV X1 PRN; Protocol PRN Reason: Hypoglycemia Last Admin: 09/02/20 10:00 Dose: 50 gm Documented by: Diltiazem HCl (Diltiazem 60 Mg Tablet) 120 mg PO 4X/DAY [facility] Last Admin: 09/02/20 22:12 Dose: 120 mg Documented by: Docusate Sodium (Docusate Sodium 100 Mg Capsule) 100 mg PO BID [facility] Last Admin: 09/02/20 22:31 Dose: 100 mg Documented by: Glucagon (Glucagon 1 Mg/Ml Syringe) 1 mg IM .X1 PRN PRN Reason: Hypoglycemia Ampicillin Sodium/Sulbactam (Sodium 3 gm/ Sodium Chloride) 112 mls @ 150 mls/hr IV Q8 [facility] Last Infusion: 09/03/20 06:32 Dose: Infused Documented by: Amiodarone HCl 360 mg/ (Dextrose) 200 mls @ 33.333 mls/hr CONT INF .Q6H [facility] Stop: 09/03/20 11:29 Last Infusion: 09/03/20 08:00 Dose: 1 mg/min, 33.3 mls/hr Documented by: Amiodarone HCl 360 mg/ (Dextrose) 200 mls @ 16.667 mls/hr CONT INF .Q12H [facility] Stop: 09/04/20 05:28 Ipratropium [place] (Ipratropium 0.5 Mg/2.5 Ml Solution) 0.5 mg INHALATION Q4H.RT [facility] Last Admin: 09/03/20 07:43 Dose: 0.5 mg Documented by: Nutritional Formula (Lactose Free) (Ensure Enlive 120 Ml Liquid) 120 ml PO 4X/DAY [facility] Last Admin: 09/02/20 22:42 Dose: Not Given Documented by: Nystatin (Nystatin Powder 15gm Bottle) 1 applic TOPICAL BID [facility]; Protocol Last Admin: 09/02/20 22:28 Dose: 1 applicatio Documented by: Ondansetron HCl (Ondansetron 4 Mg/2 Ml Vial) 4 mg IV Q8H PRN PRN PRN Reason: NAUSEA/VOMITING Pantoprazole Sodium (Pantoprazole Sodium 20 Mg Tablet) 20 mg PO DAILY [facility] Last Admin: 09/02/20 11:09 Dose: Not Given Documented by: Polyethylene Glycol (Polyethylene Glycol 3350 17 Gm Packet) 17 gm PO DAILY [facility] Potassium Chloride (Potassium Chloride Oral Tablet 20 Meq) 20 meq PO DAILYCM [facility] Last Admin: 09/02/20 11:08 Dose: Not Given Documented by: Potassium Chloride (Potassium Chloride Oral Tablet 20 Meq) 60 meq PO X1 [facility] Stop: 09/03/20 08:43 Sodium Chloride (0.9% Saline Lock 10 Ml Syringe) 10 - 40 ml IV UD PRN PRN Reason: SALINE FLUSH Last Admin: 09/02/20 11:24 Dose: 10 ml Documented by: STROKE Vital Signs/Narrative: Vital Signs Temp Pulse Resp BP BP Pulse Ox 09/03/20 08:00 136 H 19 H 127/70 H 100 09/03/20 07:01 134 H 09/03/20 07:00 98 F 143 H 14 99/67 99 09/03/20 06:45 98 F 137 H 21 H 88/69 L 99 09/03/20 06:30 98 F 139 H 29 H 118/78 100 09/03/20 06:15 98 F 130 H 25 H 110/71 100 09/03/20 06:00 98 F 130 H 26 H 107/75 100 09/03/20 05:47 98.0 F 133 H 29 H 107/78 100 09/03/20 05:40 98.0 F 122 H 30 H 114/70 99 09/03/20 05:12 148 H Medical Necessity - Tobacco Use Smoking Status: Smoker, status unknown Tobacco Use: Non-smoker Assessment/Plan All Active Problems (Last Reviewed 06/01/20 @ 13:01 by Eveline Jason CHILD PROTECTIVE SERVICES SOCIAL WORKER, CHILD PROTECTIVE SERVICES SOCIAL WORKER-C) Encephalopathy acute (Acute) 1. Acute metabolic encephalopathy secondary to hypercapnic respiratory failure, appears to be waxing and waning Patient needs to be on her BiPAP for sleep and naps 2. Acute hypercapnic respiratory failure, appears improved, Discussed that patient needs to be on her BiPAP, breathing treatments 3. Acute diverticulitis, improving, continue on Unasyn 4. A. Fib with RVR, rate controlled, resumed on home medication INR is therapeutic at 2.7 5. Hypokalemia, potassium was 3.2, replaced, recheck in am 6. Constipation, resolved with treatment 7. COPD with chronic respiratory failure, continue breathing treatment 8. Hypertension, relatively hypotensive, continue on Cardizem and amiodarone drip Will transition to po amiodarone in am 9. Hyperlipidemia/Chronic back pain/Anxiety/depression, all remain stable 10. DVT PPx- On coumadin Inpatient E&M: [id number] Subs Hosp L3
[2020-09-03] MEDS: dilTIAZem 60 MG Tablet 120 MG PO ×4 (08:50→21:08)
[2020-09-03] MEDS: Potassium Chloride Oral Tablet 20 MEQ PO (08:50)
[2020-09-03] MEDS: Docusate Sodium 100 MG Capsule PO ×2 (08:50→21:08)
[2020-09-03] MEDS: Pantoprazole Sodium 20 MG Tablet PO (08:50)
[2020-09-03] MEDS: Citalopram 40 MG TABLET PO (08:51)
[2020-09-03] MEDS: Potassium Chloride Oral Tablet 20 MEQ 60 MEQ PO (08:51)
[2020-09-03] MEDS: Menthol/Lanolin/Calamine/Znox 113 GM Tube 1 APPLIC TOPICAL ×2 (08:51→21:19)
[2020-09-03] MEDS: Polyethylene Glycol 3350 17 GM PACKET PO (08:52)
[2020-09-03] MEDS: Nystatin Powder 15gm Bottle 1 APPLIC TOPICAL ×2 (08:52→21:20)
--- NOTE | 2020-09-03 08:55 | CPS ---
patient has her own home trilogy, avaps settings.
[2020-09-03] MEDS: Amiodarone 360 MG in Dextrose 5% Viaflo Bag 192.8 ML 16.7 MG CONT INF (11:59)
[2020-09-03 12:36] LABS: Bedside Glucose 128 mg/dL (70-110)
[2020-09-03] MEDS: Ondansetron 4 MG/2 ML Vial IV (15:12)
[2020-09-03] MEDS: 0.9% Saline Lock 10 ML Syringe IV (15:12)
[2020-09-03 17:40] LABS: Bedside Glucose 108 mg/dL (70-110)
[2020-09-03] MEDS: AcetaZOLAMIDE 250 MG Tablet PO (21:08)
[2020-09-03] MEDS: busPIRone 5 MG Tablet PO (21:08)
[2020-09-03] MEDS: LORazepam 0.5 MG Tablet PO (21:08)
[2020-09-03 22:05] LABS: Bedside Glucose 116 mg/dL (70-110)
[2020-09-04] VITALS (29 sets, daily range): BP systolic 75–114; BP diastolic 7–83; PULSE 60–145; RESP 15–30; TEMP 36.1–37.2; O2SAT 63–100
[2020-09-04] MEDS: Amiodarone 360 MG in Dextrose 5% Viaflo Bag 192.8 ML 16.7 MG CONT INF (00:37)
--- NOTE | 2020-09-04 05:41 | CPS ---
pt wore her home trilogy unit from 11pm till 3:30 am. Placed pt on nasal o2 AT that time.
[2020-09-04] MEDS: Amiodarone 200 MG Tablet PO ×2 (06:10→21:37)
[2020-09-04 06:45] LABS: Absolute Lymphocyte Count 1.42 X10^3/uL (0.83-4.51); Absolute Neutrophil Count 3.9 X10^3/uL (2.0-7.7); Basophil# 0.02 X10^3/uL; Basophil% 0.3 % (0-1); Eosinophil# 0.25 X10^3/uL; Hematocrit 37.5 % (37-47); Lymphocyte # 1.42 X10^3/ul (4.0); Lymphocyte % 22.7 % (19-41); Mean Corp Hgb Conc 29.3 g/dL (32-36); Mean Corpuscular Hgb 27.3 pg (27.0-32.0); Mean Corpuscular Volume 93.1 fL (81-99); Mean Platelet Vol. 12.9 fl (6.2-12.0); Monocyte# 0.61 X10^3/uL; Monocyte% 9.8 % (0-10); NRBC Flagged by Analyzer 0 % (0-5); Neutrophil # 3.93 X10^3/uL (2.7-7.7); Neutrophil % 62.9 % (47-70); Platelet Count 264 K/mm3 (150-450); RBC Distribution Width CV 18.6 % (11.6-14.6); RBC Distribution Width SD 63.7 fl (35.1-43.9); Red Blood Count 4.03 M/mm3 (4.2-5.4); White Blood Count 6.3 K/mm3 (4.4-11.0)
[2020-09-04 06:50] LABS: Bedside Glucose 87 mg/dL (70-110)
[2020-09-04 07:05] LABS: ALB/GLOB Ratio 0.6 RATIO (0.9-2.4); AST(SGOT) 17 U/L (15-37); Alanine Aminotransfer ALT/SGPT 20 U/L (13-56); Albumin, Serum 2.1 g/dL (3.2-5.0); Alkaline Phosphatase 105 U/L (45-117); Anion Gap 2 (5-15); BUN 10 mg/dL (7-18); BUN/Creat Ratio 26.6 RATIO (10-20); Calcium,Total 8.4 mg/dL (8.5-10.1); Chloride 107 mmol/L (98-107); Creatinine, Serum 0.38 mg/dL (0.55-1.02); EST Glomerular Filtration Rate 177 mL/min (>60); Est Glom Filt Rate - Afr Amer 214 mL/min (>60); Estimated Creatinine Clearance 43.07 ml/min; Globulin 3.3 g/dL (2.2-4.2); Glucose 78 mg/dL (74-106); Potassium 3.9 mmol/L (3.5-5.1); Protein, Total 5.4 g/dL (6.4-8.2); Sodium Level 140 mmol/L (136-145)
[2020-09-04] MEDS: Ipratropium 0.5 MG/2.5 ML SOLUTION INHALATION ×5 (07:06→22:43)
[2020-09-04] MEDS: Budesonide Respules 0.5 MG/2 ML AMPUL.NEB. INHALATION ×2 (07:07→19:12)
[2020-09-04] MEDS: Docusate Sodium 100 MG Capsule PO ×2 (08:26→21:22)
[2020-09-04] MEDS: dilTIAZem 60 MG Tablet 120 MG PO ×3 (08:26→17:24)
[2020-09-04] MEDS: Cyanocobalamin 500 MCG Tablet PO (08:26)
[2020-09-04] MEDS: Potassium Chloride Oral Tablet 20 MEQ PO (08:26)
[2020-09-04] MEDS: Citalopram 40 MG TABLET PO (08:26)
[2020-09-04] MEDS: Polyethylene Glycol 3350 17 GM PACKET PO (08:26)
[2020-09-04] MEDS: Menthol/Lanolin/Calamine/Znox 113 GM Tube 1 APPLIC TOPICAL (08:27)
[2020-09-04] MEDS: Nystatin Powder 15gm Bottle 1 APPLIC TOPICAL (08:27)
[2020-09-04] MEDS: Multivitamin (Healthy Eyes) Capsule 1 CAP PO ×2 (08:34→21:22)
[2020-09-04] MEDS: Pantoprazole Sodium 20 MG Tablet PO (08:34)
[2020-09-04] MEDS: Furosemide 20 MG Tablet PO (08:35)
[2020-09-04] MEDS: AcetaZOLAMIDE 250 MG Tablet PO ×2 (08:35→21:22)
[2020-09-04 08:41] LABS: International Normalized Ratio 2.9; Prothrombin Time (Protime)PT. 29.6 SECONDS (11.7-14.9)
[2020-09-04] MEDS: Metoprolol Tartrate 25 MG Tablet PO (10:51)
[2020-09-04 12:41] LABS: Bedside Glucose 122 mg/dL (70-110)
--- NOTE | 2020-09-04 13:43 | CASEMGMT ---
YAO faxed updates to [facility]. Green sheet on chart in the event she is ready for discharge over the weekend. Plan: d/c back to [facility] at [facility] when ready. Regla VIZCARRA MSW
[2020-09-04 17:46] LABS: Bedside Glucose 101 mg/dL (70-110)
--- NOTE | 2020-09-04 17:46 | PN_ITS ---
Patient Problems: Active and Suspected Problems (Last Reviewed 06/01/20 @ 13:01 by Eveline Jason ROOF MECHANIC, ROOF MECHANIC-C) Encephalopathy acute (Acute) Subjective: She is feeling better since she came in. She is more alert. No issues overnight Vitals/I&O's: Vital Signs Temp Pulse Resp BP Pulse Ox 97.9 F 74 15 98/64 92 09/04/20 17:32 09/04/20 17:32 09/04/20 17:32 09/04/20 17:32 09/04/20 17:32 Oxygen Flow Rate (L/min) 2 Oxygen Delivery Method Nasal Cannula Weight: 135 lb 2.294 oz Body Mass Index (BMI) 21.9 Finger Stick Blood Glucose 166 Intake and Output for Last 24 Hours 09/02/20 09/03/20 09/04/20 23:59 23:59 23:59 Intake Total 2388.75 / 2388.75 1199.98 / 1696.00 1304.67 / 1304.67 Output Total 701 / 701 Balance 1687.75 / 1687.75 1199.98 / 1696.00 1303.67 / 1303.67 General: Alert, Oriented x3, Cooperative, No apparent distress HEENT: Atraumatic, PERRLA, EOMI, Normocephalic Oral: Moist Mucosa Neck: Supple, No JVD Lungs: Normal air movement, No rhonchi, No wheeze, No rales, Diminished Cardiovascular: Normal S1, Normal S2, No murmurs, Irregular Rate, Tachycardic Abdomen: Soft, Non Tender, Non-Distended, No Hepato-splenomegaly Extremities: No edema, Capillary Refill Less than 3 Seconds Skin: No rashes, No breakdown Neurological: Neuro grossly intact, Sensory exam intact to light touch and pain Psych/Mental Status: Normal Affect, Appropriate Microbiology Past 72 Hours 09/01/20 16:47 Blood Culture (Wb) - Right Forearm Blood Culture - Preliminary No growth in 48 hours. 09/01/20 16:10 Blood Culture (Wb) - Anticubital Left Blood Culture - Preliminary No growth in 48 hours. 09/01/20 16:00 Mucosa - Nose SARS-CoV-2 Antigen (Rapid) - Final Laboratory Results 09/03/20 21:05: POC Glucose 116 H 09/04/20 06:09: POC Glucose 87 09/04/20 06:28: WBC 6.3, RBC 4.03 L, Hgb 11.0 L, Hct 37.5, MCV 93.1, MCH 27.3, MCHC 29.3 L, RDW Std Deviation 63.7 H, RDW Coeff of Laura 18.6 H, Plt Count 264, MPV 12.9 H, Immature Gran % (Auto) 0.300, Neut % (Auto) 62.9, Lymph % (Auto) 22.7, [place] % (Auto) 9.8, Eos % (Auto) 4.0, Baso % (Auto) 0.3, Absolute Neuts (auto) 3.9, Absolute Lymphs (auto) 1.42, Nucleated RBC % 0 09/04/20 06:28: PT Cancelled, INR Cancelled 09/04/20 06:28: Sodium 140, Potassium 3.9, Chloride 107, Carbon Dioxide 31.0, Anion Gap 2 L, BUN 10, Creatinine 0.38 L, Estim Creat Clear Calc 43.07, Est GFR (MDRD) Af Amer 214, Est GFR (MDRD) Non-Af 177, BUN/Creatinine Ratio 26.6 H, Glucose 78, Calcium 8.4 L, Total Bilirubin 0.70, AST 17, ALT 20, Alkaline Phosphatase 105, Total Protein 5.4 L, Albumin 2.1 L, Globulin 3.3, Albumin/Globulin Ratio 0.6 L 09/04/20 08:00: PT 29.6 H, INR 2.9 09/04/20 11:54: POC Glucose 122 H 09/04/20 17:40: POC Glucose Pending Current Medications Acetaminophen (Acetaminophen 325 Mg Tablet) 650 mg PO Q6H PRN PRN PRN Reason: Pain Score 1-10/Temp > 100.7 F Acetazolamide (Acetazolamide 250 Mg Tablet) 250 mg PO BID [facility] Last Admin: 09/04/20 08:35 Dose: 250 mg Documented by: Albuterol Sulfate (Albuterol 2.5 Mg/3 Ml Vial.Neb.) 2.5 mg INHALATION Q2H PRN PRN PRN Reason: Shortness of Breath/Wheezing Amiodarone HCl (Amiodarone 200 Mg Tablet) 200 mg PO BID [facility] Last Admin: 09/04/20 06:10 Dose: 200 mg Documented by: Budesonide (Budesonide Respules 0.5 Mg/2 Ml Ampul.Neb.) 0.5 mg INHALATION BID.RT [facility] Buspirone HCl (Buspirone 5 Mg Tablet) 5 mg PO QHS [facility] Last Admin: 09/03/20 21:08 Dose: 5 mg Documented by: Calamine/Phenol (Menthol/Lanolin/Calamine/Znox 113 Gm Tube) 1 applic TOPICAL BID [facility]; Protocol Last Admin: 09/04/20 08:27 Dose: 1 applicatio Documented by: Citalopram Hydrobromide (Citalopram 40 Mg Tablet) 40 mg PO DAILY [facility] Last Admin: 09/04/20 08:26 Dose: 40 mg Documented by: Cyanocobalamin (Cyanocobalamin 500 Mcg Tablet) 500 mcg PO DAILY [facility] Last Admin: 09/04/20 08:26 Dose: 500 mcg Documented by: Dextrose (Dextrose 50%-Water 25 Gm/50 Ml Disp.Syrin) 0 gm IV X1 PRN; Protocol PRN Reason: Hypoglycemia Last Admin: 09/02/20 10:00 Dose: 50 gm Documented by: Diltiazem HCl (Diltiazem 60 Mg Tablet) 120 mg PO 4X/DAY [facility] Last Admin: 09/04/20 17:24 Dose: 120 mg Documented by: Docusate Sodium (Docusate Sodium 100 Mg Capsule) 100 mg PO BID [facility] Last Admin: 09/04/20 08:26 Dose: 100 mg Documented by: Ergocalciferol (Ergocalciferol 50,000 Unit Capsule) 50,000 unit PO TH [facility] Last Admin: 09/03/20 21:09 Dose: 50,000 unit Documented by: Furosemide (Furosemide 20 Mg Tablet) 20 mg PO DAILY [facility] Last Admin: 09/04/20 08:35 Dose: 20 mg Documented by: Glucagon (Glucagon 1 Mg/Ml Syringe) 1 mg IM .X1 PRN PRN Reason: Hypoglycemia Ampicillin Sodium/Sulbactam (Sodium 3 gm/ Sodium Chloride) 112 mls @ 150 mls/hr IV Q8 [facility] Last Infusion: 09/04/20 16:30 Dose: Infused Documented by: Ipratropium [place] (Ipratropium 0.5 Mg/2.5 Ml Solution) 0.5 mg INHALATION Q4H.RT [facility] Last Admin: 02/19/21 15:21 Dose: 0.5 mg Documented by: Lactobacillus Acidophilus (Lactobacillus Acidophilus) 1 tablet PO DAILY [facility] Last Admin: 09/04/20 08:34 Dose: 1 tablet Documented by: Lorazepam (Lorazepam 0.5 Mg Tablet) 0.5 mg PO QHS [facility] Last Admin: 09/03/20 21:08 Dose: 0.5 mg Documented by: Metoprolol Tartrate (Metoprolol Tartrate 25 Mg Tablet) 25 mg PO BID [facility] Multivitamins/Minerals (Multivitamin (Healthy Eyes) Capsule) 1 capsule PO BID [facility] Last Admin: 09/04/20 08:34 Dose: 1 capsule Documented by: Nutritional Formula (Lactose Free) (Ensure Enlive 120 Ml Liquid) 120 ml PO 4X/DAY [facility] Last Admin: 09/04/20 17:25 Dose: Not Given Documented by: Nystatin (Nystatin Powder 15gm Bottle) 1 applic TOPICAL BID [facility]; Protocol Last Admin: 09/04/20 08:27 Dose: 1 applicatio Documented by: Ondansetron HCl (Ondansetron 4 Mg/2 Ml Vial) 4 mg IV Q8H PRN PRN PRN Reason: NAUSEA/VOMITING Last Admin: 09/03/20 15:12 Dose: 4 mg Documented by: Pantoprazole Sodium (Pantoprazole Sodium 20 Mg Tablet) 20 mg PO DAILY [facility] Last Admin: 09/04/20 08:34 Dose: 20 mg Documented by: Polyethylene Glycol (Polyethylene Glycol 3350 17 Gm Packet) 17 gm PO DAILY [facility] Last Admin: 09/04/20 08:26 Dose: 17 gm Documented by: Potassium Chloride (Potassium Chloride Oral Tablet 20 Meq) [facility] Last Admin: 09/04/20 08:26 Dose: 20 meq Documented by: Sodium Chloride (0.9% Saline Lock 10 Ml Syringe) 10 - 40 ml IV UD PRN PRN Reason: SALINE FLUSH Last Admin: 09/03/20 15:12 Dose: 10 ml Documented by: Tramadol HCl (Tramadol 50 Mg Tablet) 25 mg PO TID PRN PRN Reason: Pain Score 6-10 Warfarin Sodium (Warfarin 2.5 Mg Tablet) 2.5 mg PO DAILY@1700 [facility] Last Admin: 09/04/20 17:23 Dose: 2.5 mg Documented by: Warfarin Sodium (Warfarin 1 Mg Tablet) 1 mg PO DAILY@1700 [facility] Last Admin: 09/04/20 17:24 Dose: 1 mg Documented by: STROKE Vital Signs/Narrative: Vital Signs Temp Pulse Resp BP Pulse Ox 09/04/20 17:32 97.9 F 74 15 98/64 92 09/04/20 15:45 98.1 F 70 18 91/64 92 09/04/20 15:21 88 20 H 09/04/20 15:00 76 94 09/04/20 14:00 76 Medical Necessity - Tobacco Use Smoking Status: Smoker, status unknown Tobacco Use: Non-smoker Assessment/Plan All Active Problems (Last Reviewed 06/01/20 @ 13:01 by Eveline Jason ROOF MECHANIC, ROOF MECHANIC- C) Encephalopathy acute (Acute) 1. Acute metabolic encephalopathy secondary to acute on chronic hypoxic hypercapnic respiratory failure and mild diverticulitis/COPD not in exacerbation -Has been doing well with BiPAP at night and nasal cannula during the day -Continue with Unasyn for her diverticulitis, abdominal pain has resolved -Continue with budesonide and albuterol as well as Atrovent 2. A. fib with RVR/HTN/HLD/chronic diastolic CHF/pulmonary hypertension -She is currently on Cardizem and then was placed on amiodarone twice daily however she continued to be tachycardic therefore I reinitiated her metoprolol 25 mg p.o. twice daily this is seem to cause her heart rate to improve significantly though it did asymptomatically drop her blood pressure transiently -Continue with Diamox and Lasix -Continue with Coumadin her INR is 2.9 3. GERD -Stable -Continue with PPI 4. Anxiety/depression -Stable -Continue Celexa and BuSpar -Continue with Ativan nightly DVT: Coumadin Inpatient E&M: [id number] [facility] Hosp L2
--- NOTE | 2020-09-04 20:12 | NURSING ---
RN NOTED PATIENT WAS FALLING ASLEEP, TRIED TO PUT ON AVAPS MACHINE AND PATIENT REFUSED FOR RN TO PUT IT ON. STATES SHE DOES NOT WANT THAT ON RIGHT NOW.
[2020-09-04] MEDS: busPIRone 5 MG Tablet PO (21:22)
[2020-09-04] MEDS: 0.9% Saline Lock 10 ML Syringe IV (21:23)
[2020-09-04 22:56] LABS: Bedside Glucose 116 mg/dL (70-110)
[2020-09-05] VITALS (12 sets, daily range): BP systolic 88–100; BP diastolic 51–77; PULSE 70–132; RESP 16–23; TEMP 36.6; O2SAT 96–99
[2020-09-05] MEDS: 0.9% Saline Lock 10 ML Syringe IV ×2 (05:21→08:46)
[2020-09-05 05:31] LABS: Bedside Glucose 92 mg/dL (70-110)
[2020-09-05] MEDS: Ipratropium 0.5 MG/2.5 ML SOLUTION INHALATION ×3 (07:16→15:02)
[2020-09-05] MEDS: Budesonide Respules 0.5 MG/2 ML AMPUL.NEB. INHALATION (07:16)
[2020-09-05 07:32] LABS: Anion Gap 5 (5-15); BUN 11 mg/dL (7-18); BUN/Creat Ratio 29.7 RATIO (10-20); Calcium,Total 8.3 mg/dL (8.5-10.1); Chloride 103 mmol/L (98-107); Creatinine, Serum 0.37 mg/dL (0.55-1.02); EST Glomerular Filtration Rate 180 mL/min (>60); Est Glom Filt Rate - Afr Amer 218 mL/min (>60); Estimated Creatinine Clearance 43.07 ml/min; Glucose 83 mg/dL (74-106); Potassium 3.4 mmol/L (3.5-5.1); Sodium Level 142 mmol/L (136-145)
[2020-09-05 07:33] LABS: Absolute Lymphocyte Count 1.19 X10^3/uL (0.83-4.51); Absolute Neutrophil Count 3.1 X10^3/uL (2.0-7.7); Basophil# 0.03 X10^3/uL; Basophil% 0.6 % (0-1); Eosinophils% 5.8 % (0-5); Hematocrit 34.2 % (37-47); Hemoglobin 10.1 g/dL (12.0-15.0); Lymphocyte # 1.19 X10^3/ul (4.0); Lymphocyte % 23.2 % (19-41); Mean Corp Hgb Conc 29.5 g/dL (32-36); Mean Corpuscular Hgb 27.4 pg (27.0-32.0); Mean Corpuscular Volume 92.9 fL (81-99); Mean Platelet Vol. 13.4 fl (6.2-12.0); Monocyte# 0.54 X10^3/uL; Monocyte% 10.5 % (0-10); NRBC Flagged by Analyzer 0 % (0-5); Neutrophil # 3.05 X10^3/uL (2.7-7.7); Neutrophil % 59.3 % (47-70); Platelet Count 245 K/mm3 (150-450); RBC Distribution Width CV 18.6 % (11.6-14.6); RBC Distribution Width SD 63.9 fl (35.1-43.9); Red Blood Count 3.68 M/mm3 (4.2-5.4); White Blood Count 5.1 K/mm3 (4.4-11.0)
[2020-09-05 08:24] LABS: International Normalized Ratio 2.6; Prothrombin Time (Protime)PT. 27.5 SECONDS (11.7-14.9)
[2020-09-05] MEDS: Menthol/Lanolin/Calamine/Znox 113 GM Tube 1 APPLIC TOPICAL (08:39)
[2020-09-05] MEDS: Nystatin Powder 15gm Bottle 1 APPLIC TOPICAL (08:39)
[2020-09-05] MEDS: Polyethylene Glycol 3350 17 GM PACKET PO (08:39)
[2020-09-05] MEDS: Multivitamin (Healthy Eyes) Capsule 1 CAP PO (08:40)
[2020-09-05] MEDS: Potassium Chloride Oral Tablet 20 MEQ PO (08:40)
[2020-09-05] MEDS: Metoprolol Tartrate 25 MG Tablet PO (08:40)
[2020-09-05] MEDS: Pantoprazole Sodium 20 MG Tablet PO (08:40)
[2020-09-05] MEDS: Amiodarone 200 MG Tablet PO (08:40)
[2020-09-05] MEDS: Cyanocobalamin 500 MCG Tablet PO (08:40)
[2020-09-05] MEDS: Citalopram 40 MG TABLET PO (08:41)
[2020-09-05] MEDS: Docusate Sodium 100 MG Capsule PO (08:41)
[2020-09-05] MEDS: dilTIAZem 60 MG Tablet 120 MG PO (08:41)
[2020-09-05] MEDS: AcetaZOLAMIDE 250 MG Tablet PO (08:41)
[2020-09-05] MEDS: Furosemide 20 MG Tablet PO (08:41)
[2020-09-05 11:40] LABS: Bedside Glucose 131 mg/dL (70-110)
--- NOTE | 2020-09-05 11:50 | PCM.TXEXTCAR ---
- Diet 09/02/20 11:45 Diet: Regular - No Added Salt Food consistency:: Mechanical (Minced/Moist) Liquid Consistency:: Regular/Thin Is pt able to select menu?: No Diet Comments: 1:1 SUPERVISION, FEED ONLY WHEN FULLY ALERT - Routine Orders/Code Status O2 Liters per Minute: 2 O2 Frequency: Continuous Keep PO Greater than or Equal to (%): 94 Routine Lab Work: CBC - within 3 days, BMP - within 3 days, INR - within 3 days Code Status: DNRCC-A - Therapies Weight Bearing: Weight bearing as tolerated Extremity Affected:: Bilateral Lower Physical Therapy: Eval and Treat Occupational Therapy: Eval and Treat Speech Therapy: Eval and Treat - Allergies/Procedures Done in Hospital Allergies/Adverse Reactions: Allergies amlodipine besylate [From [facility]] Adverse Reaction (Verified 09/01/20 15:28) ANKLE AND LEG EDEMA RESOLVED OFF MED-PER PCP PAPERWORK codeine Adverse Reaction (Verified 09/01/20 15:28) MENTAL STATUS CHANGE lisinopril Adverse Reaction (Verified 09/01/20 15:28) COUGH Procedures: None - Type of Care/Length of Stay Estimated LOS: Convalescent Care Less Than 30 days Type of Care Needed: Intermediate Rehab Potential: Good Prognosis: Good - Additional Orders/Day of Discharge Day of Discharge: 09/05/20 - Dietary and Speech Recommendations Dietitian Recommendations/Changes: Advance diet as tolerated to transitional; as tolerance of PO diet is established, recommend regular diet- consistency per [employer]. Ensure Enlive w/ medpass when appropriate for PO intake. - Follow Up Care Primary Care Physician: Tor Lucia MD [Primary Care Provider] - Please follow up with your Primary Care Physician in: within 1-2 weeks on discharge from TCU
--- NOTE | 2020-09-05 11:53 | DS.PCM_ITS ---
Discharge Date and Diagnosis - Problem List Patient Problems: Active and Suspected Problems (Last Reviewed 06/01/20 @ 13:01 by Eveline aJson BUSINESS OPERATIONS SPECIALIST, BUSINESS OPERATIONS SPECIALIST-C) Encephalopathy acute (Acute) Date of Admission: 09/01/20 Date of Discharge: 09/05/20 - Primary Discharge Diagnosis Acute Problems: Active Problems (Last Reviewed 06/01/20 @ 13:01 by Eveline Jason BUSINESS OPERATIONS SPECIALIST, BUSINESS OPERATIONS SPECIALIST-C) 1. Acute metabolic encephalopathy secondary to hypercapnic respiratory failure 2. Acute on chronic hypercapnic respiratory failure 3. Acute diverticulitis 4. A. Fib with RVR 5. Hypokalemia 6. Constipation 7. Episode of hypoglycemia secondary to poor po intake; this was treated - Secondary Discharge Diagnosis Chronic Problems: Chronic Problems (Last Reviewed 06/01/20 @ 13:01 by Eveline Jason BUSINESS OPERATIONS SPECIALIST, BUSINESS OPERATIONS SPECIALIST-C) Back pain (Chronic) Compression fracture (Chronic) Other intervertebral disc degeneration, lumbar region (Chronic) Spinal stenosis, lumbar region with neurogenic claudication (Chronic) Spondylosis without myelopathy or radiculopathy, lumbar region (Chronic) Lumbago with sciatica, right side (Chronic) Compression fracture of thoracic vertebra with routine healing (Chronic) Digoxin toxicity (Chronic) Anxiety (Chronic) ANKUSH (obstructive sleep apnea) (Chronic) Chronic hypoxemic respiratory failure (Chronic) Chronic anticoagulation (Chronic) Former tobacco use (Chronic) Depression (Chronic) Pulmonary hypertension (Chronic) History of recurrent deep vein thrombosis (DVT) (Chronic) History of pulmonary embolism (Chronic) History of cardioversion (Chronic) January of 2018.....HR not controlled with exertion while in AF on Beta donna and cardizem. Converted to NSR with cardioversion Paroxysmal atrial fibrillation (Chronic) DCCV on 01/31/2018; HTN (hypertension) (Chronic) Iron deficiency anemia (Chronic) Chronic diastolic CHF (congestive heart failure) (Chronic) Dyslipidemia (Chronic) COPD (chronic obstructive pulmonary disease) (Chronic) Hospital Course and Treatment Imaging Results: Clinical Impression(s) from Imaging Studies Brain CT 09/01/20 15:49 IMPRESSION: Mild atrophy and moderate periventricular white matter ischemic changes. No evidence for acute bleed. If concern for acute infarct MRI recommended Electronically Signed: Ken Weaver MD at 16:42 EST , Service support , Chest X-Ray 09/01/20 16:20 IMPRESSION: Interstitial thickening in the lower lobes. No focal infiltration or gross pulmonary edema Electronically Signed: Ken Weaver MD at 16:45 EST , Service support , Abdomen/Pelvis CT 09/01/20 20:09 IMPRESSION: Findings consistent with mild acute diverticulitis of the distal descending colon without evidence for peridiverticular abscess. Diffuse fecal retention in the colon and rectal impaction. Status post cholecystectomy hysterectomy and appendectomy Other findings as above Electronically Signed: Ken Weaver MD at 21:27 EST , Service support , Operations: None Procedures: None Summary of Care Provided: The patient is a 74 year old F, resident in a NH, who was admitted with altered mental status. Patient had been rubbing her abdomen and stating that it hurts. She was reportedly not using her Bipap in the NH. In the ED, her workup was suggestive of mild acute diverticulitis of the distal descending colon without evidence for peridiverticular abscess. She also had fecal retention in the colon with rectal impaction. On the medical floor, she was found to be hypoglycemic and lethargic. ABG showed acute respiratory acidosis with hypercapnea. Her management in the hospital were as follows: 1. Acute metabolic encephalopathy secondary to hypercapnic respiratory failure, resolved, back to baseline 2. Acute hypercapnic respiratory failure, appears improved, Patient was not using her Bipap in the NH. Resolved with start of use of Bipap 3. Acute diverticulitis, noted on CT scan of abd/pelvis, started on IV Unasyn with improvement. No tenderness on abdominal exam at discharge. Discharged on Augmentin to complete 1 week antibiotics. 4. A. Fib with RVR, HR uncontrolled in hospital. Changes made to her meds with periods of hypotension noted, requiring use of IV amiodarone drip with metoprolol held. Cardiology consulted and recommended continuation on po amiodarone and metoprolol. Cardizem was discontinued. Patient will follow-up with cardiology in the outpatient. INR remained therapeutic 5. Hypokalemia, treated in the hospital 6. Constipation, resolved with treatment 7. COPD with chronic respiratory failure, continue breathing treatment 8. Hypertension, relatively hypotensive noted in the admisison. Changes made to medications as above in #4 9. Hyperlipidemia/Chronic back pain/Anxiety/depression, all remain stable Patient Problems: Active and Suspected Problems (Last Reviewed 06/01/20 @ 13:01 by Eveline castellanos BUSINESS OPERATIONS SPECIALIST, BUSINESS OPERATIONS SPECIALIST-C) Encephalopathy acute (Acute) Subjective: On the day of discharge, patient was seen and examined. She felt improved. HR was better controlled. Objective: Physical Exam: Gen: Looks in some discomfort, not pale, not jaundiced, alert oriented x3, on 2L oxygen CVS:HS I +II, irregular, no murmurs RESP: Diminished at lung bases GI: BS present and normal, mild left lower quadrant tenderness with some guarding but no rebound tenderness, no palpable organs EXT:No edema - Physical Exam Vitals/I&O's: Vital Signs Temp Pulse Resp BP Pulse Ox 97.8 F 71 19 H 91/71 99 09/05/20 10:00 09/05/20 11:24 09/05/20 11:24 09/05/20 10:00 09/05/20 10:00 Oxygen Flow Rate (L/min) 2 Oxygen Delivery Method Nasal Cannula Weight: 62.5 kg Body Mass Index (BMI) 21.9 Finger Stick Blood Glucose 166 Intake and Output for Last 24 Hours 09/03/20 09/04/20 09/05/20 23:59 23:59 23:59 Intake Total 1199.98 / 1696.00 1536.67 / 1536.67 262.5 / 262.5 Output Total 401 / 401 Balance 1199.98 / 1696.00 1135.67 / 1135.67 262.5 / 262.5 Microbiology Past 72 Hours 09/01/20 16:47 Blood Culture (Wb) - Right Forearm Blood Culture - Preliminary No growth in 48 hours. 09/01/20 16:10 Blood Culture (Wb) - Anticubital Left Blood Culture - Preliminary No growth in 48 hours. Laboratory Results 09/04/20 11:54: POC Glucose 122 H 09/04/20 17:40: POC Glucose 101 09/04/20 22:49: POC Glucose 116 H 09/05/20 05:25: POC Glucose 92 09/05/20 06:22: WBC 5.1, RBC 3.68 L, Hgb 10.1 L, Hct 34.2 L, MCV 92.9, MCH 27.4, MCHC 29.5 L, RDW Std Deviation 63.9 H, RDW Coeff of Laura 18.6 H, Plt Count 245, MPV 13.4 H, Immature Gran % (Auto) 0.600, Neut % (Auto) 59.3, Lymph % (Auto) 23.2, [place] % (Auto) 10.5 H, Eos % (Auto) 5.8 H, Baso % (Auto) 0.6, Absolute Neuts (auto) 3.1, Absolute Lymphs (auto) 1.19, Nucleated RBC % 0 09/05/20 06:22: PT 27.5 H, INR 2.6 09/05/20 06:22: Sodium 142, Potassium 3.4 L, Chloride 103, Carbon Dioxide 34.0 H , Anion Gap 5, BUN 11, Creatinine 0.37 L, Estim Creat Clear Calc 43.07, Est GFR (MDRD) Af Amer 218, Est GFR (MDRD) Non-Af 180, BUN/Creatinine Ratio 29.7 H, Glucose 83, Calcium 8.3 L 09/05/20 11:24: POC Glucose 131 H Current Medications Acetaminophen (Acetaminophen 325 Mg Tablet) 650 mg PO Q6H PRN PRN PRN Reason: Pain Score 1-10/Temp > 100.7 F Acetazolamide (Acetazolamide 250 Mg Tablet) 250 mg PO BID [facility] Last Admin: 09/05/20 08:41 Dose: 250 mg Documented by: Albuterol Sulfate (Albuterol 2.5 Mg/3 Ml Vial.Neb.) 2.5 mg INHALATION Q2H PRN PRN PRN Reason: Shortness of Breath/Wheezing Amiodarone HCl (Amiodarone 200 Mg Tablet) 200 mg PO BID [facility] Last Admin: 09/05/20 08:40 Dose: 200 mg Documented by: Budesonide (Budesonide Respules 0.5 Mg/2 Ml Ampul.Neb.) 0.5 mg INHALATION BID.RT [facility] Last Admin: 09/05/20 07:16 Dose: 0.5 mg Documented by: Buspirone HCl (Buspirone 5 Mg Tablet) 5 mg PO QHS [facility] Last Admin: 09/04/20 21:22 Dose: 5 mg Documented by: Calamine/Phenol (Menthol/Lanolin/Calamine/Znox 113 Gm Tube) 1 applic TOPICAL BID [facility]; Protocol Last Admin: 09/05/20 08:39 Dose: 1 applicatio Documented by: Citalopram Hydrobromide (Citalopram 40 Mg Tablet) 40 mg PO DAILY [facility] Last Admin: 09/05/20 08:41 Dose: 40 mg Documented by: Cyanocobalamin (Cyanocobalamin 500 Mcg Tablet) 500 mcg PO DAILY [facility] Last Admin: 09/05/20 08:40 Dose: 500 mcg Documented by: Dextrose (Dextrose 50%-Water 25 Gm/50 Ml Disp.Syrin) 0 gm IV X1 PRN; Protocol PRN Reason: Hypoglycemia Last Admin: 09/02/20 10:00 Dose: 50 gm Documented by: Diltiazem HCl (Diltiazem 60 Mg Tablet) 120 mg PO 4X/DAY [facility] Last Admin: 09/05/20 08:41 Dose: 120 mg Documented by: Docusate Sodium (Docusate Sodium 100 Mg Capsule) 100 mg PO BID [facility] Last Admin: 09/05/20 08:41 Dose: 100 mg Documented by: Ergocalciferol (Ergocalciferol 50,000 Unit Capsule) 50,000 unit PO TH [facility] Last Admin: 09/03/20 21:09 Dose: 50,000 unit Documented by: Furosemide (Furosemide 20 Mg Tablet) 20 mg PO DAILY [facility] Last Admin: 09/05/20 08:41 Dose: 20 mg Documented by: Glucagon (Glucagon 1 Mg/Ml Syringe) 1 mg IM .X1 PRN PRN Reason: Hypoglycemia Ampicillin Sodium/Sulbactam (Sodium 3 gm/ Sodium Chloride) 112 mls @ 150 mls/hr IV Q8 [facility] Last Infusion: 09/05/20 05:53 Dose: Infused Documented by: Sodium Chloride () 250 mls @ 15 mls/hr IV .[id number] PRN PRN Reason: Saline Flush Last Infusion: 09/05/20 05:26 Dose: 0 mls/hr Documented by: Sodium Chloride () 250 mls @ 15 mls/hr IV .[id number] PRN PRN Reason: Additional IVPB Infusion Ipratropium [place] (Ipratropium 0.5 Mg/2.5 Ml Solution) 0.5 mg INHALATION Q4H.RT [facility] Last Admin: 09/05/20 11:25 Dose: 0.5 mg Documented by: Lactobacillus Acidophilus (Lactobacillus Acidophilus) 1 tablet PO DAILY [facility] Last Admin: 09/05/20 08:41 Dose: 1 tablet Documented by: Lorazepam (Lorazepam 0.5 Mg Tablet) 0.5 mg PO QHS [facility] Last Admin: 09/04/20 21:24 Dose: Not Given Documented by: Metoprolol Tartrate (Metoprolol Tartrate 25 Mg Tablet) 25 mg PO BID [facility] Last Admin: 09/05/20 08:40 Dose: 25 mg Documented by: Multivitamins/Minerals (Multivitamin (Healthy Eyes) Capsule) 1 capsule PO BID [facility] Last Admin: 09/05/20 08:40 Dose: 1 capsule Documented by: Nutritional Formula (Lactose Free) (Ensure Enlive 120 Ml Liquid) 120 ml PO 4X/DAY [facility] Last Admin: 09/05/20 08:41 Dose: Not Given Documented by: Nystatin (Nystatin Powder 15gm Bottle) 1 applic TOPICAL BID [facility]; Protocol Last Admin: 09/05/20 08:39 Dose: 1 applicatio Documented by: Ondansetron HCl (Ondansetron 4 Mg/2 Ml Vial) 4 mg IV Q8H PRN PRN PRN Reason: NAUSEA/VOMITING Last Admin: 09/03/20 15:12 Dose: 4 mg Documented by: Pantoprazole Sodium (Pantoprazole Sodium 20 Mg Tablet) 20 mg PO DAILY [facility] Last Admin: 09/05/20 08:40 Dose: 20 mg Documented by: Polyethylene Glycol (Polyethylene Glycol 3350 17 Gm Packet) 17 gm PO DAILY [facility] Last Admin: 09/05/20 08:39 Dose: 17 gm Documented by: Potassium Chloride (Potassium Chloride Oral Tablet 20 Meq) 20 meq PO DAILYCM [facility] Last Admin: 09/05/20 08:40 Dose: 20 meq Documented by: Potassium Chloride (Potassium Chloride Oral Tablet 20 Meq) 40 meq PO X1 ONE Stop: 09/05/20 11:31 Sodium Chloride (0.9% Saline Lock 10 Ml Syringe) 10 - 40 ml IV UD PRN PRN Reason: SALINE FLUSH Last Admin: 09/05/20 08:46 Dose: 10 ml Documented by: Tramadol HCl (Tramadol 50 Mg Tablet) 25 mg PO TID PRN PRN Reason: Pain Score 6-10 Warfarin Sodium (Warfarin 2.5 Mg Tablet) 2.5 mg PO DAILY@1700 [facility] Last Admin: 09/04/20 17:23 Dose: 2.5 mg Documented by: Warfarin Sodium (Warfarin 1 Mg Tablet) 1 mg PO DAILY@1700 [facility] Last Admin: 09/04/20 17:24 Dose: 1 mg Documented by: Discharge Diet: Low fat/ Low Cholesterol, 2000 mg Sodium Diet Discharge Activity: Return to Normal Activity Home Medications: Medications to take at Discharge Ergocalciferol [Vitamin D] 50,000 unit PO TH 07/19/15 Citalopram Hydrobromide [Citalopram HBr] 40 mg PO DAILY 05/23/18 Budesonide 2 ml IH BID@1400,2200 01/17/19 Omeprazole 20 mg PO DAILY 01/17/19 Vit A/Vit C/Vit E/Zinc/Copper [Preservision Areds Tablet] 1 tab PO BID 01/17/19 Buspirone HCl 5 mg PO QHS 05/07/19 Sennosides/Docusate Sodium [Senna Plus 8.6-50 mg Tablet] 2 tab PO QHS 08/22/19 gabapentin 100 mg capsule 100 mg PO QHS 08/28/19 Ipratropium/Albuterol Sulfate [Duoneb] 3 ml IH BID@0800,2000 04/04/20 Warfarin [Coumadin] 2.5 mg PO DAILY 06/26/20 AcetaAZOLAMIDE [Diamox] 250 mg PO BID 08/20/20 Cyanocobalamin (Vitamin B-12) [Vitamin B-12] 500 mcg PO DAILY 08/20/20 Lactobacillus Acidophilus [Acidophilus] 1 cap PO DAILY 08/20/20 Potassium Chloride [Klor-Con M20] 20 meq PO DAILY 08/20/20 Warfarin Sodium 1 mg PO DAILY 08/20/20 Furosemide [Lasix] 20 mg PO DAILY #30 08/23/20 traMADol [Ultram] 25 mg PO TID PRN 2 Days #6 tab 08/23/20 Lorazepam [Ativan] 0.5 mg PO QHS 09/01/20 Acetaminophen [Tylenol Tablet] 650 mg PO Q6H PRN PRN tab 09/05/20 Albuterol Aerosols [Ventolin Aerosols] 2.5 mg INHALATION Q2H PRN PRN vial.neb. 09/05/20 Amiodarone HCl [Cordarone] 200 mg PO BID tab 09/05/20 Amoxicillin/Potassium Clav [Augmentin 875-125 Tablet] 1 ea PO BID 4 Days #8 tab 09/05/20 Docusate Sodium [Colace] 100 mg PO BID cap 09/05/20 Ensure Enlive 120 ml PO 4X/DAY liquid 09/05/20 Menthol/Lanolin/Calamine/Znox [Calmoseptine Ointment] 1 applic TOPICAL BID tube 09/05/20 Metoprolol Tartrate [Lopressor (beta donna)] 25 mg PO BID tab 09/05/20 Nystatin Powder [Mycostatin Powder] 1 applic TOPICAL BID bottle 09/05/20 Following Prescriptions Were Given to Patient: Amoxicillin/Potassium Clav [Augmentin 875-125 Tablet] 1 ea PO BID 4 Days #8 tab Primary Care Physician: Tor Lucia MD [Primary Care Provider] - Please follow up with your Primary Care Physician in: within 1-2 weeks on discharge from TCU Disposition: Longterm facility Minutes spent on discharge:: 40 Patient Condition:: Stable Medical Necessity - Tobacco Use Smoking Status: Former smoker Tobacco Use: Non-smoker Meaningful Use Info Meaningful Use Diagnoses (Choose all that apply): None applicable Inpatient E&M: [id number] [facility]
[2020-09-05] MEDS: Potassium Chloride Oral Tablet 20 MEQ 40 MEQ PO (12:27)
--- NOTE | 2020-09-05 13:58 | PCM.CONS.C ---
Reason for Consult Date of Consultation: 09/05/20 History of Present Illness: The patient is a 74 year old male. Patient with known history of atrial fibrillation and was on medical therapy She is scheduled for pacemaker placement on September 23 at [facility] by the car wash attendant . On this admission she was on medical therapy with amiodarone, Cardizem as well as beta-donna and noted her blood pressure was low The underlying rhythm is atrial fibrillation with controlled ventricular rate Recommendation; 1. Discontinue Cardizem due to low blood pressure 2. Continue on amiodarone 200 mg twice daily 3. Continue on metoprolol tartrate 25 mg twice daily Patient will follow up with the primary car wash attendant at [facility] for pacemaker placement. Past Medical History Allergies/Adverse Reactions: Allergies amlodipine besylate [From [facility]] Adverse Reaction (Verified 09/01/20 15:28) ANKLE AND LEG EDEMA RESOLVED OFF MED-PER PCP PAPERWORK codeine Adverse Reaction (Verified 09/01/20 15:28) MENTAL STATUS CHANGE lisinopril Adverse Reaction (Verified 09/01/20 15:28) COUGH Home Medications: Ambulatory Orders Medication Instructions Recorded Ergocalciferol [Vitamin D] 50,000 unit PO TH 07/19/15 Citalopram Hydrobromide 40 mg PO DAILY 05/23/18 [Citalopram HBr] Budesonide 2 ml IH BID@1400,2200 01/17/19 Omeprazole 20 mg PO DAILY 01/17/19 Vit A/Vit C/Vit E/Zinc/Copper 1 tab PO BID 01/17/19 [Preservision Areds Tablet] Buspirone HCl 5 mg PO QHS 05/07/19 Sennosides/Docusate Sodium [Senna 2 tab PO QHS 08/22/19 Plus 8.6-50 mg Tablet] gabapentin 100 mg capsule 100 mg PO QHS 08/28/19 Ipratropium/Albuterol Sulfate 3 ml IH BID@0800,2000 04/04/20 [Duoneb] Warfarin [Coumadin] 2.5 mg PO DAILY 06/26/20 AcetaAZOLAMIDE [Diamox] 250 mg PO BID 08/20/20 Cyanocobalamin (Vitamin B-12) 500 mcg PO DAILY 08/20/20 [Vitamin B-12] Lactobacillus Acidophilus 1 cap PO DAILY 08/20/20 [Acidophilus] Potassium Chloride [Klor-Con M20] 20 meq PO DAILY 08/20/20 Warfarin Sodium 1 mg PO DAILY 08/20/20 Furosemide [Lasix] 20 mg PO DAILY #30 08/23/20 traMADol [Ultram] 25 mg PO TID PRN 2 Days #6 tab 08/23/20 Lorazepam [Ativan] 0.5 mg PO QHS 09/01/20 Acetaminophen [Tylenol Tablet] 650 mg PO Q6H PRN PRN tab 09/05/20 Albuterol Aerosols [Ventolin 2.5 mg INHALATION Q2H PRN PRN 09/05/20 Aerosols] vial.neb. Amiodarone HCl [Cordarone] 200 mg PO BID tab 09/05/20 Amoxicillin/Potassium Clav 1 ea PO BID 4 Days #8 tab 09/05/20 [Augmentin 875-125 Tablet] Docusate Sodium [Colace] 100 mg PO BID cap 09/05/20 Ensure Enlive 120 ml PO 4X/DAY liquid 09/05/20 Menthol/Lanolin/Calamine/Znox 1 applic TOPICAL BID tube 09/05/20 [Calmoseptine Ointment] Metoprolol Tartrate [Lopressor 25 mg PO BID tab 09/05/20 (beta donna)] Nystatin Powder [Mycostatin Powder] 1 applic TOPICAL BID bottle 09/05/20 Past Medical History (Chronic Problems): Chronic Problems (Last Reviewed 06/01/20 @ 13:01 by Eveline Jason PHYSICIAN ASSISTANT, PHYSICIAN ASSISTANT-C) Back pain (Chronic) Compression fracture (Chronic) Other intervertebral disc degeneration, lumbar region (Chronic) Spinal stenosis, lumbar region with neurogenic claudication (Chronic) Spondylosis without myelopathy or radiculopathy, lumbar region (Chronic) Lumbago with sciatica, right side (Chronic) Compression fracture of thoracic vertebra with routine healing (Chronic) Digoxin toxicity (Chronic) Anxiety (Chronic) ANKUSH (obstructive sleep apnea) (Chronic) Chronic hypoxemic respiratory failure (Chronic) Chronic anticoagulation (Chronic) Former tobacco use (Chronic) Depression (Chronic) Pulmonary hypertension (Chronic) History of recurrent deep vein thrombosis (DVT) (Chronic) History of pulmonary embolism (Chronic) History of cardioversion (Chronic) January of 2018.....HR not controlled with exertion while in AF on Beta donna and cardizem. Converted to NSR with cardioversion Paroxysmal atrial fibrillation (Chronic) DCCV on 01/31/2018; HTN (hypertension) (Chronic) Iron deficiency anemia (Chronic) Chronic diastolic CHF (congestive heart failure) (Chronic) Dyslipidemia (Chronic) COPD (chronic obstructive pulmonary disease) (Chronic) Surgical History: cholecystectomy, hysterectomy, - - tailbone surgery. Psychiatric History: Anxiety, Depression PRECISION AGRICULTURE SPECIALIST History: No pertinent PRECISION AGRICULTURE SPECIALIST history - *Family History Maternal Family History: Family History (Last Reviewed 06/01/20 @ 13:01 by Eveline Jason PHYSICIAN ASSISTANT, PHYSICIAN ASSISTANT-C) Sister Heart disease History Items: - - Denies known maternal medical history including cardiac history. Paternal Family History: Family History (Last Reviewed 06/01/20 @ 13:01 by Eveline Jason NP, PHYSICIAN ASSISTANT-C) Sister Heart disease History Items: - - Denies known paternal medical history including cardiac history. Sibling Family History: Family History (Last Reviewed 06/01/20 @ 13:01 by Eveline Jason NP, PHYSICIAN ASSISTANT-C) Sister Heart disease History Items: Heart Disease Lives: Alf Smoking Status: Smoker, status unknown Tobacco Use: Non-smoker Alcohol: None Drugs: None Objective: Vital Signs Temp Pulse Resp BP Pulse Ox 97.8 F 73 19 H 90/72 99 09/05/20 10:00 09/05/20 13:25 09/05/20 11:24 09/05/20 13:25 09/05/20 10:00 Oxygen Flow Rate (L/min) 2 Oxygen Delivery Method Nasal Cannula Weight: 137 lb 12.623 oz Body Mass Index (BMI) 21.9 Finger Stick Blood Glucose 166 Intake and Output for Last 24 Hours 09/03/20 09/04/20 09/05/20 23:59 23:59 23:59 Intake Total 1199.98 / 1696.00 1536.67 / 1536.67 742.5 / 742.5 Output Total 401 / 401 Balance 1199.98 / 1696.00 1135.67 / 1135.67 742.5 / 742.5 General: Awake, Alert, Oriented x 3 Neck: Supple, Good ROM, No Lymph Node Enlargement Cardiovascular: No Murmurs 09/05/20 06:22: WBC 5.1, RBC 3.68 L, Hgb 10.1 L, Hct 34.2 L, MCV 92.9, MCH 27.4, MCHC 29.5 L, Plt Count 245, MPV 13.4 H, Immature Gran % (Auto) 0.600, Neut % (Auto) 59.3, Lymph % (Auto) 23.2, [place] % (Auto) 10.5 H, Eos % (Auto) 5.8 H, Baso % (Auto) 0.6, Absolute Neuts (auto) 3.1, Nucleated RBC % 0 09/05/20 06:22: PT 27.5 H, INR 2.6 09/05/20 06:22: Sodium 142, Potassium 3.4 L, Chloride 103, Carbon Dioxide 34.0 H, Anion Gap 5, BUN 11, Creatinine 0.37 L, Est GFR (MDRD) Af Amer 218, Est GFR (MDRD) Non-Af 180, BUN/Creatinine Ratio 29.7 H, Glucose 83, Calcium 8.3 L Rhythm: Atrial fibrillation with controlled ventricular rate. EKG: A. fib
--- NOTE | 2020-09-05 15:22 | NURSING ---
Gave report to [facility]
== END 2020-09-05 15:27 | disposition skilled nursing facility (03) | DRG 189 ==
LOC: ED 16:48 → MS3 19:19 → PCU 09-02 14:34
PROVIDERS: Nurse Practitioner Family; Admitting Provider Family Medicine; Emergency Provider Emergency Medicine; PCP Family Medicine; Visit Provider Internal Medicine
DX: J96.22 Acute and chronic respiratory failure with hypercapnia (principal); G93.41 Metabolic encephalopathy; E43 Unspecified severe protein-calorie malnutrition; I50.32 Chronic diastolic (congestive) heart failure; K57.32 Diverticulitis of large intestine without perforation or abscess without bleeding; E87.2 Acidosis; E87.0 Hyperosmolality and hypernatremia; J96.21 Acute and chronic respiratory failure with hypoxia; J96.11 Chronic respiratory failure with hypoxia; E87.6 Hypokalemia; F32.9 Major depressive disorder, single episode, unspecified; F41.9 Anxiety disorder, unspecified; G47.33 Obstructive sleep apnea (adult) (pediatric); I27.20 Pulmonary hypertension, unspecified; I48.0 Paroxysmal atrial fibrillation; D50.9 Iron deficiency anemia, unspecified; I11.0 Hypertensive heart disease with heart failure; E78.5 Hyperlipidemia, unspecified; J44.9 Chronic obstructive pulmonary disease, unspecified; E16.1 Other hypoglycemia; E86.0 Dehydration; K59.00 Constipation, unspecified; K21.9 Gastro-esophageal reflux disease without esophagitis; M48.062 Spinal stenosis, lumbar region with neurogenic claudication; M80.08XD Age-related osteoporosis with current pathological fracture, vertebra(e), subsequent encounter for fracture with routine healing; M47.816 Spondylosis without myelopathy or radiculopathy, lumbar region; M54.41 Lumbago with sciatica, right side; M51.36 Other intervertebral disc degeneration, lumbar region; G89.29 Other chronic pain; R79.1 Abnormal coagulation profile; T46.0X5A Adverse effect of cardiac-stimulant glycosides and drugs of similar action, initial encounter; Z66 Do not resuscitate; Z87.01 Personal history of pneumonia (recurrent); Z86.718 Personal history of other venous thrombosis and embolism; Z86.711 Personal history of pulmonary embolism; Z79.01 Long term (current) use of anticoagulants; Z79.899 Other long term (current) drug therapy; Z87.891 Personal history of nicotine dependence
CPT/HCPCS: 36415; 36600; 70450; 71045; 74177; 80048; 80053; 81001; 82803; 82962; 83605; 84484; 85025; 85610; 85730; 87040; 87426; 92507; 92526; 92610; 93005; 94640; 94762; 99285; J7030; J7040; J7050; J7120; Q9967; A4216; J0295; J2405

== ENCOUNTER 2020-09-29 20:41 | Inpatient (IN) | payer MEDICARE, MEDICAID, SELFPAY ==
[2020-09-02 09:48] VITALS: BMI 21.9
[2020-09-29 20:43] VITALS: BP 123/87; PULSE 99; RESP 22; TEMP 36.4; O2SAT 98; BMI 24.0
--- NOTE | 2020-09-29 20:44 | CT_ITS ---
STUDY: CT BRAIN WITHOUT CONTRAST REASON FOR EXAM: Female, 74 years old. Confusion. RADIATION DOSAGE (If Supplied By Facility): CTDIvol = ( 44.99 ) mGy, DLP = ( 846.73 ) mGycm TECHNIQUE: Transaxial CT imaging of the brain was performed without administration of intravenous contrast material. Individualized dose optimization techniques were used for this CT. COMPARISON: 09/01/2020. FINDINGS: Normal soft tissue structures. Normal calvarium. Normal size ventricles and extra-axial spaces for the patient''s age. Normal white matter tracts of the cerebral hemispheres. Normal basal ganglia and thalami. Normal brainstem. Normal cerebellum. There is no intracranial hemorrhage. There are no findings of an acute ischemic infarction. Normal visualized paranasal sinuses. CT/Brain/Head without Contrast IMPRESSION: No acute intracranial or calvarial abnormality. There is no major interval change. Electronically Signed: Nikko Olivarez DO at 21:34 EDT Tel [phone], Service support ,
--- NOTE | 2020-09-29 20:44 | EKG12_ITS ---
Test Reason : ALT LOC Blood Pressure : / mmHG Vent. Rate : 101 BPM Atrial Rate : 102 BPM P-R Int : 000 ms QRS Dur : 084 ms QT Int : 344 ms P-R-T Axes : 000 059 244 degrees QTc Int : 446 ms Atrial fibrillation with rapid ventricular response Low voltage QRS ST & T wave abnormality, consider anterolateral ischemia Abnormal ECG Confirmed by CARLIE BHAT, KATELYN ([id number]), features editor APBLITO TRUONG ([id number]) on 10/01/2020 12:58:34 PM Referred By: ERIK Confirmed By:KATELYN SEXTON MD
[2020-09-29 20:46] VITALS: BP 126/87; PULSE 91; RESP 23; O2SAT 98
[2020-09-29 20:58] LABS: Absolute Lymphocyte Count 1.91 X10^3/uL (0.83-4.51); Basophil# 0.05 X10^3/uL; Basophil% 0.5 % (0-1); Eosinophil# 0.12 X10^3/uL; Eosinophils% 1.2 % (0-5); Hematocrit 43.4 % (37-47); Hemoglobin 13.1 g/dL (12.0-15.0); Lymphocyte # 1.91 X10^3/ul (4.0); Lymphocyte % 19.5 % (19-41); Mean Corp Hgb Conc 30.2 g/dL (32-36); Mean Corpuscular Hgb 28.1 pg (27.0-32.0); Mean Corpuscular Volume 92.9 fL (81-99); Monocyte# 0.67 X10^3/uL; Monocyte% 6.8 % (0-10); NRBC Flagged by Analyzer 0 % (0-5); Neutrophil # 7.03 X10^3/uL (2.7-7.7); Neutrophil % 71.6 % (47-70); Platelet Count 220 K/mm3 (150-450); RBC Distribution Width CV 17.8 % (11.6-14.6); RBC Distribution Width SD 61.9 fl (35.1-43.9); Red Blood Count 4.67 M/mm3 (4.2-5.4); White Blood Count 9.8 K/mm3 (4.4-11.0)
[2020-09-29] MEDS: 0.9% Normal Saline 1,000 ML 150 ML IV (21:00)
--- NOTE | 2020-09-29 21:09 | RAD_ITS ---
STUDY: X-RAY CHEST REASON FOR EXAM: Female, 74 years old. Shortness breath. TECHNIQUE: Single AP portable view of the chest. COMPARISON: 09/01/2020. FINDINGS: Persistent elevation of the left hemidiaphragm. There is minimal linear atelectasis at the left lung base. Stable density in the lateral right lung base. Normal size heart. Normal mediastinum and betty. Normal visualized pulmonary arteries. There is atherosclerotic calcification of the aortic arch with tortuosity. There are diffuse degenerative changes of the visualized thoracic spine. There is degenerative osteoarthritis of the bilateral shoulders. There is no demonstrated abnormality of the visualized soft tissue structures of the upper abdomen. RAD/Chest 1 View (Portable) IMPRESSION: No major interval change when compared with study of 09/01/2020. Electronically Signed: Nikko Olivarez DO at 21:39 EDT Tel [phone], Service support ,
[2020-09-29 21:15] LABS: International Normalized Ratio 3.9; Prothrombin Time (Protime)PT. 37.7 SECONDS (11.7-14.9)
--- NOTE | 2020-09-29 21:16 | ED.DCSUM_ITS ---
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 Apparently, over the past few days, the patient has been more confused over baseline. She is normally ANO by 4. Apparently, she has been more confused and oriented only to self. She is not had fever. She had no cough. She has been on 3 L nasal cannula which is chronic without hypoxia. The patient was recently hospitalized towards the end of August with pneumonia and encephalopathy. Her treatment for pneumonia had finished. She apparently was doing better until recently. There is been no vomiting. There is been no report of abdominal pain. Prior similar symptoms: Yes Recent Illness/Hospitalization: No Past Medical History - Allergies and Home Meds Allergies/Adverse Reactions: Allergies amlodipine besylate [From [facility]] Adverse Reaction (Verified 09/01/20 15:28) ANKLE AND LEG EDEMA RESOLVED OFF MED-PER PCP PAPERWORK codeine Adverse Reaction (Verified 09/01/20 15:28) MENTAL STATUS CHANGE lisinopril Adverse Reaction (Verified 09/01/20 15:28) COUGH Primary Care Physician: Tor Lucia MD [Primary Care Provider] - Prior records reviewed: Yes Past Medical History: - - Atrial fibrillation, Green hypertension, dementia Surgical History: cholecystectomy, hysterectomy, - - tailbone surgery. Smoking Status: Former smoker - Family History Maternal Family History: Family History (Last Reviewed 06/01/20 @ 13:01 by Eveline Jason NP, SENIOR DATA WAREHOUSE ARCHITECT-C) Sister Heart disease Family History: Reports: - - Denies known maternal medical history including cardiac history. Paternal Family History: Family History (Last Reviewed 06/01/20 @ 13:01 by Eveline Jason NP, SENIOR DATA WAREHOUSE ARCHITECT-C) Sister Heart disease Family History: Reports: - - Denies known paternal medical history including cardiac history. Sibling Family History: Family History (Last Reviewed 06/01/20 @ 13:01 by Eveline Jason NP, SENIOR DATA WAREHOUSE ARCHITECT-C) Sister Heart disease Family History: Reports: Heart Disease Review of Systems ROS: Unable to Obtain Physical Exam Vital Signs/Narrative: Vital Signs Temp Pulse Resp BP Pulse Ox 09/29/20 20:46 91 23 H 126/87 H 98 09/29/20 20:43 97.6 F L 99 22 H 123/87 H 98 Inital Vital Signs reviewed: Yes General: Well nourished, Well developed, No Acute Distress Head: Normocephalic, Atraumatic Eyes: Perrl, EOMI ENT: Moist mucous membranes, No rhinorrhea Neck: Supple, Nontender Cardiovascular: No murmurs, Irregular Respiratory: No distress, CTA bilaterally, Chest nontender Abdomen: Soft, Nontender, Nondistended, Normal bowel sounds Back: Nontender, Normal Inspection Extremities: Nontender, No edema Skin: Normal color, No rash Neurological: Alert, Cranial nerves II-XII grossly intact, Normal Strength, Normal Sensation, Confused Psychological: Normal affect, Normal Mood Diagnostic/Tx/Re-eval Abnormal Lab Results 09/29/20 09/29/20 09/29/20 20:50 20:50 20:50 WBC 9.8 RBC 4.67 Hgb 13.1 Hct 43.4 MCV 92.9 MCH 28.1 MCHC 30.2 L RDW Std Deviation 61.9 H RDW Coeff of Laura 17.8 H Plt Count 220 MPV 13.0 H Immature Gran % (Auto) 0.400 Neut % (Auto) 71.6 H Lymph % (Auto) 19.5 [place] % (Auto) 6.8 Eos % (Auto) 1.2 Baso % (Auto) 0.5 Absolute Neuts (auto) 7.0 Absolute Lymphs (auto) 1.91 Nucleated RBC % 0 PT 37.7 H INR 3.9 Specimen Type VBG pH VBG pO2 VBG HCO3 VBG Total CO2 VBG O2 Sat (Calc) VBG Base Excess POC Mix VBG pCO2 Pt Tmp O2 Delivery Device Liter Flow Sodium 140 Potassium 4.3 Chloride 98 Carbon Dioxide 42.0 H Anion Gap 0 L BUN 13 Creatinine 0.52 L Estim Creat Clear Calc 44.80 Est GFR (MDRD) Af Amer 146 Est GFR (MDRD) Non-Af 121 BUN/Creatinine Ratio 24.9 H Glucose 101 Calcium 8.8 Total Bilirubin 0.70 AST 37 ALT 16 Alkaline Phosphatase 122 H Total Protein 6.6 Albumin 2.4 L Globulin 4.2 Albumin/Globulin Ratio 0.6 L Urine Color Urine Clarity Urine pH Ur Specific [place] Urine Protein Urine Glucose (UA) Urine Ketones Urine Occult Blood Urine Nitrite Urine Bilirubin Urine Urobilinogen Ur Leukocyte Esterase Urine RBC Urine WBC Ur Squamous Epith Cells Urine Bacteria Urine Mucus 09/29/20 09/29/20 22:47 22:48 WBC RBC Hgb Hct MCV MCH MCHC RDW Std Deviation RDW Coeff of Laura Plt Count MPV Immature Gran % (Auto) Neut % (Auto) Lymph % (Auto) [place] % (Auto) Eos % (Auto) Baso % (Auto) Absolute Neuts (auto) Absolute Lymphs (auto) Nucleated RBC % PT INR Specimen Type AJ VBG pH 7.37 VBG pO2 58 H VBG HCO3 37 H VBG Total CO2 39 H VBG O2 Sat (Calc) 88 H VBG Base Excess 12 H POC Mix VBG pCO2 Pt Tmp 64.3 H O2 Delivery Device Cannula Liter Flow 3.0 Sodium Potassium Chloride Carbon Dioxide Anion Gap BUN Creatinine Estim Creat Clear Calc Est GFR (MDRD) Af Amer Est GFR (MDRD) Non-Af BUN/Creatinine Ratio Glucose Calcium Total Bilirubin AST ALT Alkaline Phosphatase Total Protein Albumin Globulin Albumin/Globulin Ratio Urine Color Yellow Urine Clarity Clear Urine pH 7.0 Ur Specific [place] 1.010 Urine Protein Negative Urine Glucose (UA) Normal Urine Ketones 5 H Urine Occult Blood Negative Urine Nitrite Negative Urine Bilirubin Negative Urine Urobilinogen 4 H Ur Leukocyte Esterase 25 H Urine RBC 0 SEEN Urine WBC 0-5 SEEN Ur Squamous Epith Cells 0 SEEN Urine Bacteria 0 SEEN Urine Mucus 0 SEEN Clinical Impression(s) from Imaging Studies Brain CT 09/29/20 20:44 IMPRESSION: No acute intracranial or calvarial abnormality. There is no major interval change. Electronically Signed: Nikko Olivarez DO at 21:34 EDT Tel [phone], Service support , Chest X-Ray 09/29/20 21:09 IMPRESSION: No major interval change when compared with study of 09/01/2020. Electronically Signed: Nikko Olivarez DO at 21:39 EDT Tel [phone], Service support , - Rhythm Strip Rhythm Strip: A-fib Rate: 100 Ectopy: PAC(s) - EKG Initial EKG Interpretation: No Acute Injury Pattern, Atrial Fibrillation Prior: Unchanged - Medical Decision Making The patient presents with increasing confusion over the past 3 days. EKG was obtained on arrival. Was atrial fibrillation. She had a rate of 101. There is no acute ischemic change. Broad metabolic work-up was pursued. Noncontrast head CT was unremarkable for acute process. Patient's INR is therapeutic. Screening labs are unremarkable. Urine shows no evidence of infection. Patient does have recurrent hypercapnia. She has been noncompliant with her BiPAP. However, she refused ABG. She did agree to a VBG. It does show a compensated respiratory acidosis, but her CO2 is elevated. My suspicion is that she is very close to becoming increasingly acidotic secondary noncompliance with BiPAP. She did agree to start BiPAP here. I do feel that given her decreasing mental status and confusion that she would best be observed. The patient was discussed with the hospitalist. Impression 1. Delirium 2. Hypercapnia ED Disposition - Plan for ED Patient: Referrals: Tor Lucia MD [Primary Care Provider] -
[2020-09-29 21:22] LABS: ALB/GLOB Ratio 0.6 RATIO (0.9-2.4); AST(SGOT) 37 U/L (15-37); Alanine Aminotransfer ALT/SGPT 16 U/L (13-56); Albumin, Serum 2.4 g/dL (3.2-5.0); Alkaline Phosphatase 122 U/L (45-117); Anion Gap 0 (5-15); BUN 13 mg/dL (7-18); BUN/Creat Ratio 24.9 RATIO (10-20); Calcium,Total 8.8 mg/dL (8.5-10.1); Chloride 98 mmol/L (98-107); Creatinine, Serum 0.52 mg/dL (0.55-1.02); EST Glomerular Filtration Rate 121 mL/min (>60); Est Glom Filt Rate - Afr Amer 146 mL/min (>60); Globulin 4.2 g/dL (2.2-4.2); Glucose 101 mg/dL (74-106); Potassium 4.3 mmol/L (3.5-5.1); Protein, Total 6.6 g/dL (6.4-8.2); Sodium Level 140 mmol/L (136-145)
[2020-09-29 22:51] VITALS: BP 109/72; PULSE 100; RESP 21; O2SAT 96
[2020-09-29 22:53] VITALS: BP 109/72; PULSE 99; RESP 23; TEMP 36.6; O2SAT 96
[2020-09-29 22:55] LABS: Bacteria 0 SEEN /hpf (None Seen); Mucous, Urine 0 SEEN /hpf (<or=2+); Red Blood Cells-Urine 0 SEEN /hpf (0-5); Squamous Epithelial Cells - UA 0 SEEN /hpf (5-10)
[2020-09-29 22:56] LABS: Blood Gas Specimen Type VEN; O2 Delivery Device Cannula; VBG BASE EXCESS 12 mmol/L (-1.0-3.5); VBG Bicarbonate 37 mmol/L (22-26); VBG PO2 58 mmHg (25-40); VBG SO2 88 % (50-70); VBG TCO2 39 mmol/L (23-33); VBG pCO2 64.3 mmHg (41-51); VBG pH 7.37 (7.32-7.42)
[2020-09-29 22:57] LABS: Color, Urine Yellow (Yellow); Glucose, Dipstick Normal (Normal); Ketone-Dipstick 5 mg/dl (Negative); Leukocyte Esterase-Dipstick 25 /ul (Negative); Nitrite-Dipstick Negative (Negative); Occult Blood-Urine Negative /ul (Negative); Protein-Dipstick Negative (Negative); Urine Bilirubin Dipstick Negative (Negative); Urine Clarity Clear (Clear); Urine Urobilinogen 4 mg/dl (Normal)
[2020-09-29 23:00] VITALS: BP 110/86; PULSE 93; RESP 15; TEMP 36.9; O2SAT 98
[2020-09-29 23:02] VITALS: PULSE 101; RESP 12; RESP 16; O2SAT 95
[2020-09-29 23:02] LABS: White Blood Cells 0-5 SEEN /hpf (0-5)
--- NOTE | 2020-09-29 23:39 | HP.PCM_ITS ---
Problem List (1) COPD exacerbation Status: Chronic (2) Back pain Status: Chronic Qualifiers: (3) Compression fracture Status: Chronic (4) Other intervertebral disc degeneration, lumbar region Status: Chronic (5) Spinal stenosis, lumbar region with neurogenic claudication Status: Chronic (6) Spondylosis without myelopathy or radiculopathy, lumbar region Status: Chronic (7) Lumbago with sciatica, right side Status: Chronic Qualifiers: (8) Compression fracture of thoracic vertebra with routine healing Status: Chronic Qualifiers: (9) Encephalopathy acute Status: Acute (10) Digoxin toxicity Status: Resolved (11) Anxiety Status: Chronic (12) ANKUSH (obstructive sleep apnea) Status: Chronic (13) Chronic hypoxemic respiratory failure Status: Chronic (14) Chronic anticoagulation Status: Chronic (15) Former tobacco use Status: Chronic (16) Depression Status: Chronic Qualifiers: (17) Pulmonary hypertension Status: Chronic (18) History of recurrent deep vein thrombosis (DVT) Status: Chronic (19) History of pulmonary embolism Status: Chronic (20) History of cardioversion Status: Chronic Comment: January of 2018.....HR not controlled with exertion while in AF on Beta donna and cardizem. Converted to NSR with cardioversion (21) Paroxysmal atrial fibrillation Status: Chronic Comment: DCCV on 01/31/2018; (22) HTN (hypertension) Status: Chronic Qualifiers: (23) Iron deficiency anemia Status: Chronic Qualifiers: (24) Chronic diastolic CHF (congestive heart failure) Status: Chronic (25) Dyslipidemia Status: Chronic (26) COPD (chronic obstructive pulmonary disease) Status: Chronic Qualifiers: History of Present Illness Date of Admission: 09/29/20 Chief Complaint: altered mental status The patient is a 74 year old F with a significant history of atrial fibrillation; hypertension; COPD with pulmonary hypertension who presents to the emergency department with a 2-day history of progressively worsening altered mental status. Per family patient has been lethargic and confused. Reportedly in the past 3 days patient has not been compliant with her BiPAP. At the emergency department patient refused ABG because the procedure has been painful to her in the past. She had a VBG which showed hypercapnia. Past Medical History Past Medical History (Chronic Problems): Chronic Problems (Last Reviewed 09/30/20 @ 00:[address] Paulo Mota MD) Back pain (Chronic) Compression fracture (Chronic) Other intervertebral disc degeneration, lumbar region (Chronic) Spinal stenosis, lumbar region with neurogenic claudication (Chronic) Spondylosis without myelopathy or radiculopathy, lumbar region (Chronic) Lumbago with sciatica, right side (Chronic) Compression fracture of thoracic vertebra with routine healing (Chronic) Anxiety (Chronic) COPD exacerbation (Chronic) ANKUSH (obstructive sleep apnea) (Chronic) Chronic hypoxemic respiratory failure (Chronic) Chronic anticoagulation (Chronic) Former tobacco use (Chronic) Depression (Chronic) Pulmonary hypertension (Chronic) History of recurrent deep vein thrombosis (DVT) (Chronic) History of pulmonary embolism (Chronic) History of cardioversion (Chronic) January of 2018.....HR not controlled with exertion while in AF on Beta donna and cardizem. Converted to NSR with cardioversion Paroxysmal atrial fibrillation (Chronic) DCCV on 01/31/2018; HTN (hypertension) (Chronic) Iron deficiency anemia (Chronic) Chronic diastolic CHF (congestive heart failure) (Chronic) Dyslipidemia (Chronic) COPD (chronic obstructive pulmonary disease) (Chronic) Medical History: Medical History (Last Reviewed 09/30/20 @ 01:[address] Paulo Mota MD) Dyslipidemia (Chronic) E78.5 COPD (chronic obstructive pulmonary disease) (Chronic) J44.9 Atrial fibrillation I48.91 Heart failure with preserved ejection fraction I50.30 Group 2. EF 65% 18 Essential hypertension I10 History of DVT (deep vein thrombosis) Z86.718 History of pulmonary embolus (PE) Z86.711 Pulmonary HTN I27.20 Venous insufficiency I87.2 Allergies amlodipine besylate [From [facility]] Adverse Reaction (Verified 09/01/20 15:28) ANKLE AND LEG EDEMA RESOLVED OFF MED-PER PCP PAPERWORK codeine Adverse Reaction (Verified 09/01/20 15:28) MENTAL STATUS CHANGE lisinopril Adverse Reaction (Verified 09/01/20 15:28) COUGH Home Medications: Ambulatory Orders Medication Instructions Recorded Ergocalciferol [Vitamin D] 50,000 unit PO TH 07/19/15 Citalopram Hydrobromide 40 mg PO DAILY 05/23/18 [Citalopram HBr] Budesonide 2 ml IH BID@1400,2200 01/17/19 Omeprazole 20 mg PO DAILY 01/17/19 Vit A/Vit C/Vit E/Zinc/Copper 1 tab PO BID 01/17/19 [Preservision Areds Tablet] Buspirone HCl 5 mg PO QHS 05/07/19 Sennosides/Docusate Sodium [Senna 2 tab PO QHS 08/22/19 Plus 8.6-50 mg Tablet] gabapentin 100 mg capsule 100 mg PO QHS 08/28/19 Ipratropium/Albuterol Sulfate 3 ml IH BID@08,199904/04/20 [Duoneb] Warfarin [Coumadin] 2.5 mg PO DAILY 06/26/20 AcetaAZOLAMIDE [Diamox] 250 mg PO BID 08/20/20 Cyanocobalamin (Vitamin B-12) 500 mcg PO DAILY 08/20/20 [Vitamin B-12] Lactobacillus Acidophilus 1 cap PO DAILY 08/20/20 [Acidophilus] Potassium Chloride [Klor-Con M20] 20 meq PO DAILY 08/20/20 Warfarin Sodium 2 mg PO DAILY 08/20/20 Furosemide [Lasix] 20 mg PO DAILY #30 08/23/20 Lorazepam [Ativan] 0.5 mg PO QHS 09/01/20 Acetaminophen [Tylenol Tablet] 650 mg PO Q6H PRN PRN tab 09/05/20 Albuterol Aerosols [Ventolin 2.5 mg INHALATION Q2H PRN PRN 09/05/20 Aerosols] vial.neb. Amiodarone HCl [Cordarone] 200 mg PO BID tab 09/05/20 Docusate Sodium [Colace] 100 mg PO BID cap 09/05/20 Ensure Enlive 120 ml PO 4X/DAY liquid 09/05/20 Menthol/Lanolin/Calamine/Znox 1 applic TOPICAL BID tube 09/05/20 [Calmoseptine Ointment] Metoprolol Tartrate [Lopressor 25 mg PO BID tab 09/05/20 (beta donna)] Nystatin Powder [Mycostatin Powder] 1 applic TOPICAL BID bottle 09/05/20 traMADol [Ultram] 50 mg PO TID PRN 09/29/20 Surgical History: Surgical History (Last Reviewed 09/30/20 @ 01:[address] Paulo Mota MD) History of cholecystectomy Z90.49 History of total hysterectomy Z90.710 tailbone surgery Surgical History: cholecystectomy, hysterectomy, - - tailbone surgery. 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 Paulo Mota MD) Sister Heart disease History Items: - - Denies known maternal medical history including cardiac history. Paternal Family History: Family History (Last Reviewed 09/30/20 @ 01:[address] Paulo Mota MD) Sister Heart disease History Items: - - Denies known paternal medical history including cardiac history. Sibling Family History: Family History (Last Reviewed 09/30/20 @ 01:[address] Paulo Mota MD) Sister Heart disease History Items: Heart Disease Review of Systems Unable to obtain accurate/complete ROS d/t: Confusion. ROS obtained from family is as in HPI VTE Information - Inpt Only VTE Present on Admission: No VTE Mechan Device Prophylaxis: None VTE Pharm Prophylaxis ordered?: No Reason prophylaxis not ordered:: Treatment Not Indicated - Supratherapeutic INR Patient Problems: Active and Suspected Problems (Last Reviewed 09/30/20 @ 00:[address] Paulo Mota MD) Encephalopathy acute (Acute) - Physical Exam Vitals/I&O's: Vital Signs Temp Pulse Resp BP Pulse Ox 98.5 F 101 H 16 110/86 H 95 09/29/20 23:00 09/29/20 23:02 09/29/20 23:02 09/29/20 23:00 09/29/20 23:02 Oxygen Flow Rate (L/min) 2 Oxygen Delivery Method Room Air Weight: 67.7 kg Body Mass Index (BMI) 24.0 Finger Stick Blood Glucose 111 General: Confused, Lethargic HEENT: Atraumatic, PERRLA, EOMI, Normocephalic Neck: Supple, No JVD, Negative Carotid Bruits Lungs: Wheezes Cardiovascular: Normal S1, Normal S2, Irregular Rate Abdomen: Bowel Sounds Present, Soft, Non Tender Extremities: No edema, Capillary Refill Less than 3 Seconds Skin: No rashes, No breakdown Musculoskeletal: No Tenderness to Palpation of Joints or Extremities Neurological: - - Patient does not follow commands to check cranial nerves. Psych/Mental Status: Normal Affect, Appropriate Laboratory Results 09/29/20 20:50: WBC 9.8, RBC 4.67, Hgb 13.1, Hct 43.4, MCV 92.9, MCH 28.1, MCHC 30.2 L, RDW Std Deviation 61.9 H, RDW Coeff of Laura 17.8 H, Plt Count 220, MPV 13.0 H, Immature Gran % (Auto) 0.400, Neut % (Auto) 71.6 H, Lymph % (Auto) 19.5, [place] % (Auto) 6.8, Eos % (Auto) 1.2, Baso % (Auto) 0.5, Absolute Neuts (auto) 7.0, Absolute Lymphs (auto) 1.91, Nucleated RBC % 0 09/29/20 20:50: PT 37.7 H, INR 3.9 09/29/20 20:50: Sodium 140, Potassium 4.3, Chloride 98, Carbon Dioxide 42.0 H, Anion Gap 0 L, BUN 13, Creatinine 0.52 L, Estim Creat Clear Calc 44.80, Est GFR (MDRD) Af Amer 146, Est GFR (MDRD) Non-Af 121, BUN/Creatinine Ratio 24.9 H, Glucose 101, Calcium 8.8, Total Bilirubin 0.70, AST 37, ALT 16, Alkaline Phosphatase 122 H, Total Protein 6.6, Albumin 2.4 L, Globulin 4.2, Albumin/Globulin Ratio 0.6 L 09/29/20 22:47: Specimen Type AJ, VBG pH 7.37, VBG pO2 58 H, VBG HCO3 37 H, VBG Total CO2 39 H, VBG O2 Sat (Calc) 88 H, VBG Base Excess 12 H, POC Mix VBG pCO2 Pt Tmp 64.3 H, O2 Delivery Device Cannula, Liter Flow 3.0 09/29/20 22:48: Urine Color Yellow, Urine Clarity Clear, Urine pH 7.0, Ur Specific [place] 1.010, Urine Protein Negative, Urine Glucose (UA) Normal, Urine Ketones 5 H, Urine Occult Blood Negative, Urine Nitrite Negative, Urine Bilirubin Negative, Urine Urobilinogen 4 H, Ur Leukocyte Esterase 25 H, Urine RBC 0 SEEN, Urine WBC 0-5 SEEN, Ur Squamous Epith Cells 0 SEEN, Urine Bacteria 0 SEEN, Urine Mucus 0 SEEN Current Medications Sodium Chloride () 1,000 mls @ 150 mls/hr IV .Q6H40M CAIO Last Admin: 09/29/20 21:00 Dose: 150 mls/hr Documented by: Assessment/Plan All Active Problems (Last Reviewed 09/30/20 @ 00:[address] Paulo Mota MD) Encephalopathy acute (Acute) Digoxin toxicity (Resolved) The patient is a 74 year old F with a significant history of atrial fibrillation; hypertension; COPD with pulmonary hypertension who presents emergency department with a 2-day history of progressively worsening altered mental status; with some wheezes and hypercapnia.. Acute metabolic encephalopathy Likely secondary to hypercapnia Urinalysis unremarkable. Impression of chest x-ray by radiology: No major interval change when compared with study of 09/01/2020. Actual current chest x-ray image and data of 09/01/2020 was reviewed. I agree radiologist interpretation. BiPAP as below Will check TSH and vitamin B12. Check ammonia level. Hold home gabapentin and Ativan. Acute hypercapnic respiratory failure secondary to acute on chronic excerbation of COPD and pulmonary hypertension. BiPAP started emergency department continued. Placed on scheduled DuoNeb and as needed albuterol. Prednisone ordered. Repeat VBG in a.m. Hypotension While in patient room at the ED her systolic blood pressure was less than 90. Parameters placed on metoprolol. Trend blood pressure. Atrial fibrillation Amiodarone continued. Hold warfarin secondary to supratherapeutic INR. Trend INR. DVT prophylaxis Not indicated as patient supratherapeutic on INR. Inpatient E&M: 56485 Init Hosp L3
[2020-09-30] VITALS (22 sets, daily range): BP systolic 110–130; BP diastolic 62–90; PULSE 91–115; RESP 12–24; TEMP 36.6–36.9; O2SAT 93–100; BMI 22.8
--- NOTE | 2020-09-30 00:36 | ED.RN ---
Per report from ED RN, patient med list not updated because we are waiting on a list from [facility] for med rec
--- NOTE | 2020-09-30 00:39 | ED.RN ---
TIP FROM [facility] [phone]. SHE IS FAXING OVER MED LIST NOW.
[2020-09-30] MEDS: 0.9% Saline Lock 10 ML Syringe IV (03:16)
[2020-09-30 06:36] LABS: Absolute Lymphocyte Count 0.93 X10^3/uL (0.83-4.51); Basophil# 0.04 X10^3/uL; Basophil% 0.4 % (0-1); Eosinophil# 0.05 X10^3/uL; Eosinophils% 0.4 % (0-5); Hematocrit 42.4 % (37-47); Hemoglobin 12.5 g/dL (12.0-15.0); Lymphocyte # 0.93 X10^3/ul (4.0); Lymphocyte % 8.3 % (19-41); Mean Corp Hgb Conc 29.5 g/dL (32-36); Mean Corpuscular Hgb 27.8 pg (27.0-32.0); Mean Corpuscular Volume 94.2 fL (81-99); Mean Platelet Vol. 12.7 fl (6.2-12.0); Monocyte# 0.14 X10^3/uL; Monocyte% 1.2 % (0-10); NRBC Flagged by Analyzer 0 % (0-5); Neutrophil # 10.01 X10^3/uL (2.7-7.7); Neutrophil % 89.3 % (47-70); Platelet Count 197 K/mm3 (150-450); RBC Distribution Width CV 18.2 % (11.6-14.6); White Blood Count 11.2 K/mm3 (4.4-11.0)
[2020-09-30 06:53] LABS: International Normalized Ratio 3.9; Prothrombin Time (Protime)PT. 38.3 SECONDS (11.7-14.9)
[2020-09-30 07:09] LABS: Anion Gap 6 (5-15); BUN 12 mg/dL (7-18); BUN/Creat Ratio 35.7 RATIO (10-20); Calcium,Total 8.4 mg/dL (8.5-10.1); Chloride 101 mmol/L (98-107); Creatinine, Serum 0.34 mg/dL (0.55-1.02); EST Glomerular Filtration Rate 201 mL/min (>60); Est Glom Filt Rate - Afr Amer 244 mL/min (>60); Estimated Creatinine Clearance 41.33 ml/min; Glucose 90 mg/dL (74-106); Potassium 3.6 mmol/L (3.5-5.1); Sodium Level 141 mmol/L (136-145); Thyroid Stim Hormone (TSH) 2.71 uIU/mL (0.358-3.74)
[2020-09-30] MEDS: Ipratropium/Albuterol Sulfate 3 ML AMPUL.NEB INHALATION ×4 (07:09→18:46)
[2020-09-30 07:26] LABS: Blood Gas Specimen Type VEN; O2 Delivery Device BiPAP; PEEP 8; RR 12; VBG BASE EXCESS 10 mmol/L (-1.0-3.5); VBG Bicarbonate 34 mmol/L (22-26); VBG PO2 225 mmHg (25-40); VBG SO2 100 % (50-70); VBG TCO2 36 mmol/L (23-33); VBG pCO2 53.3 mmHg (41-51); VBG pH 7.42 (7.32-7.42)
[2020-09-30 07:28] LABS: Ammonia < 10.0 umol/L (11-32)
[2020-09-30 08:01] LABS: Vitamin B12 > 2000 pg/mL (211-911)
[2020-09-30] MEDS: AcetaZOLAMIDE 250 MG Tablet PO ×2 (10:33→22:19)
[2020-09-30] MEDS: Multivitamin (Healthy Eyes) Capsule 1 CAP PO ×2 (10:33→22:18)
[2020-09-30] MEDS: Potassium Chloride Oral Tablet 20 MEQ PO (10:33)
[2020-09-30] MEDS: Docusate Sodium 100 MG Capsule PO ×2 (10:33→22:17)
[2020-09-30] MEDS: Pantoprazole Sodium 20 MG Tablet PO (10:33)
[2020-09-30] MEDS: Amiodarone 200 MG Tablet PO ×2 (10:33→22:19)
[2020-09-30] MEDS: Furosemide 20 MG Tablet PO (10:34)
[2020-09-30] MEDS: predniSONE 20 MG Tablet 40 MG PO (10:34)
[2020-09-30] MEDS: Metoprolol Tartrate 25 MG Tablet PO ×2 (10:34→22:18)
[2020-09-30] MEDS: Citalopram 40 MG TABLET PO (10:34)
--- NOTE | 2020-09-30 10:40 | CASEMGMT ---
YAO faxed updated information to [facility] as patient is a rn long term care resident at [facility]. Regla VIZCARRA MSW
--- NOTE | 2020-09-30 10:59 | CASEMGMT ---
Readmission chart review: Pt was admitted 08/20-08/23/20 for Altered mental status then 09/01-09/05/20 for Acute encephalopathy from the [facility]. Pt is consistently non-adherent with her bipap then becomes hypercapnic and altered. Pt returned 09/29/20 for same after refusing to wear bipap for the last 3 days. Plan is active with [facility] already and plan is for her to return to [place] at discharge. CM to follow for any further discharge planning/needs. Vianney MERCEDES CM
--- NOTE | 2020-09-30 11:29 | PCM.NTREPORT ---
Nutrition Therapy Report - History Nutrition Services has been consulted to:: Manage nutrient details of diet order Current diet / nutrition support order:: Cardiac, Ensure Enlive 120 ml 4x/day medpass. - Anthropometric Measurements Height:: 5 ft 4 in Weight:: 60.328 kg Body Mass Index (BMI):: 22.8 - Relevant Labs Relevant Labs:: WBC 11.2 K/mm3 (4.4-11.0) H 09/30/20 06:26 MCHC 29.5 g/dL (32-36) L 09/30/20 06:26 RDW Std Deviation 63.0 fl (35.1-43.9) H 09/30/20 06:26 RDW Coeff of Laura 18.2 % (11.6-14.6) H 09/30/20 06:26 MPV 12.7 fl (6.2-12.0) H 09/30/20 06:26 Neut % (Auto) 89.3 % (47-70) H 09/30/20 06:26 Lymph % (Auto) 8.3 % (19-41) L 09/30/20 06:26 Absolute Neuts (auto) 10.0 X10^3/uL (2.0-7.7) H 09/30/20 06:26 PT 38.3 SECONDS (11.7-14.9) H 09/30/20 06:26 Carbon Dioxide 34.0 mmol/L (21.0-32.0) H 09/30/20 06:26 Anion Gap 0 (5-15) L 09/29/20 20:50 Creatinine 0.34 mg/dL (0.55-1.02) L 09/30/20 06:26 BUN/Creatinine Ratio 35.7 RATIO (10-20) H 09/30/20 06:26 Calcium 8.4 mg/dL (8.5-10.1) L 09/30/20 06:26 Alkaline Phosphatase 122 U/L (45-117) H 09/29/20 20:50 Ammonia < 10.0 umol/L (11-32) L 09/30/20 06:26 Albumin 2.4 g/dL (3.2-5.0) L 09/29/20 20:50 Albumin/Globulin Ratio 0.6 RATIO (0.9-2.4) L 09/29/20 20:50 Vitamin B12 > 2000 pg/mL (211-911) H 09/30/20 06:26 - Assessment Food / Nutrition-Related History:: [facility]. 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 Reports Boost provided at [facility] however has not been drinking d/t disliking taste. Reports unintentional wt loss x 3 months d/t decreased intake. Wt has remained stable x 1 month since previous admin- wt hx per EMR 09/02/20 132.1#, 08/21 138.9, 06/26/20 160.9. Wt loss 27.9 lbs/17% x 3 months (significant). States some nausea & episodes of reflux if consumes tomato based sauces or spicy foods. Notes experiencing constipation- notes regular bowel regimen at [facility]. - Nutrition Diagnosis Problem / Etiology / Signs & Symptoms (PES):: Severe malnutrition in the context of chronic illness/injury RT inadequate oral intake & unintentional wt loss AEB pt reports consuming <=/50% energy intake compared to estimated energy needs >/=3months, severe unintentional wt loss 17% x 3 months. Evidence of Malnutrition Exists:: Yes Severe PCM:: Chronic Illness - Nutrition Intervention Nutrition Prescription:: [id number] calories. 50-60 g protein - Food / Nutrient Delivery Interventions Nutrition support ordered as / adjusted to:: Regular diet, sodium restricted to promote PO intake at meals and will provide ensure pudding/magic cup for additional emerald/pro if consumed. Continue Ensure Enlive 120 ml w/ medpass. Nutrition education provided?: No - MNT Monitoring Further MNT monitoring and evaluation required?: Yes MNT Follow-up in:: 3-5 days
--- NOTE | 2020-09-30 15:17 | PN_ITS ---
Patient Problems: Active and Suspected Problems (Last Reviewed 09/30/20 @ 01:[address] Paulo Mota MD) Encephalopathy acute (Acute) Subjective: Feels well. Vitals/I&O's: Vital Signs Temp Pulse Resp BP Pulse Ox 36.7 C 91 18 112/70 96 09/30/20 10:00 09/30/20 13:00 09/30/20 10:03 09/30/20 10:34 09/30/20 10:00 Oxygen Flow Rate (L/min) 3 Oxygen Delivery Method Room Air Weight: 60.328 kg Body Mass Index (BMI) 22.8 Finger Stick Blood Glucose 111 Intake and Output for Last 24 Hours 09/28/20 09/29/20 09/30/20 23:59 23:59 23:59 Intake Total 655 / 655 Balance 655 / 655 General: - - oreiented to self and place. HEENT: Atraumatic, Normocephalic Oral: Moist Mucosa, No Gingival or Mucosal Lesions/ Ulcerations Neck: No Nodes, Thyroid Normal Size and Texture Lungs: Clear to auscultation, Normal air movement, No rhonchi, No wheeze, No rales Cardiovascular: Regular rate, Regular Rhythm, Normal S1, Normal S2, No murmurs Abdomen: Bowel Sounds Present, Soft, Non Tender, Non-Distended Extremities: No edema, No Calf Tenderness Skin: No rashes, No breakdown Psych/Mental Status: Normal Affect, Appropriate Laboratory Results 09/29/20 20:50: WBC 9.8, RBC 4.67, Hgb 13.1, Hct 43.4, MCV 92.9, MCH 28.1, MCHC 30.2 L, RDW Std Deviation 61.9 H, RDW Coeff of Laura 17.8 H, Plt Count 220, MPV 13.0 H, Immature Gran % (Auto) 0.400, Neut % (Auto) 71.6 H, Lymph % (Auto) 19.5, [place] % (Auto) 6.8, Eos % (Auto) 1.2, Baso % (Auto) 0.5, Absolute Neuts (auto) 7.0, Absolute Lymphs (auto) 1.91, Nucleated RBC % 0 09/29/20 20:50: PT 37.7 H, INR 3.9 09/29/20 20:50: Sodium 140, Potassium 4.3, Chloride 98, Carbon Dioxide 42.0 H, Anion Gap 0 L, BUN 13, Creatinine 0.52 L, Estim Creat Clear Calc 44.80, Est GFR (MDRD) Af Amer 146, Est GFR (MDRD) Non-Af 121, BUN/Creatinine Ratio 24.9 H, Glucose 101, Calcium 8.8, Total Bilirubin 0.70, AST 37, ALT 16, Alkaline Phosphatase 122 H, Total Protein 6.6, Albumin 2.4 L, Globulin 4.2, Albumin/Globulin Ratio 0.6 L 09/29/20 22:47: Specimen Type AJ, VBG pH 7.37, VBG pO2 58 H, VBG HCO3 37 H, VBG Total CO2 39 H, VBG O2 Sat (Calc) 88 H, VBG Base Excess 12 H, POC Mix VBG pCO2 Pt Tmp 64.3 H, O2 Delivery Device Cannula, Liter Flow 3.0 09/29/20 22:48: Urine Color Yellow, Urine Clarity Clear, Urine pH 7.0, Ur Specific [place] 1.010, Urine Protein Negative, Urine Glucose (UA) Normal, Urine Ketones 5 H, Urine Occult Blood Negative, Urine Nitrite Negative, Urine Biliru bin Negative, Urine Urobilinogen 4 H, Ur Leukocyte Esterase 25 H, Urine RBC 0 SEEN, Urine WBC 0-5 SEEN, Ur Squamous Epith Cells 0 SEEN, Urine Bacteria 0 SEEN, Urine Mucus 0 SEEN 09/30/20 06:26: Vitamin B12 > 2000 H 09/30/20 06:26: Sodium 141, Potassium 3.6, Chloride 101, Carbon Dioxide 34.0 H, Anion Gap 6, BUN 12, Creatinine 0.34 L, Estim Creat Clear Calc 41.33, Est GFR (MDRD) Af Amer 244, Est GFR (MDRD) Non-Af 201, BUN/Creatinine Ratio 35.7 H, G lucose 90, Calcium 8.4 L, TSH 2.71 09/30/20 06:26: Ammonia < 10.0 L 09/30/20 06:26: WBC 11.2 H, RBC 4.50, Hgb 12.5, Hct 42.4, MCV 94.2, MCH 27.8, MCHC 29.5 L, RDW Std Deviation 63.0 H, RDW Coeff of Laura 18.2 H, Plt Count 197, MPV 12.7 H, Immature Gran % (Auto) 0.400, Neut % (Auto) 89.3 H, Lymph % (Auto) 8.3 L, [place] % (Auto) 1.2, Eos % (Auto) 0.4, Baso % (Auto) 0.4, Absolute Neuts (auto) 10.0 H, Absolute Lymphs (auto) 0.93, Nucleated RBC % 0 09/30/20 06:26: PT 38.3 H, INR 3.9 09/30/20 07:22: Specimen Type AJ, VBG pH 7.42, VBG pO2 225 H, VBG HCO3 34 H, VBG Total CO2 36 H, VBG O2 Sat (Calc) 100 H, VBG Base Excess 10 H, POC Mix VBG pCO2 Pt Tmp 53.3 H, Respiration Rate 12, O2 Delivery Device BiPAP, POC PEEP 8 Current Medications Acetaminophen (Acetaminophen 325 Mg Tablet) 650 mg PO Q6H PRN PRN PRN Reason: Pain Score 1-10/Temp > 100.7 F Acetazolamide (Acetazolamide 250 Mg Tablet) 250 mg PO BID [facility] Last Admin: 09/30/20 10:33 Dose: 250 mg Documented by: Albuterol Sulfate (Albuterol 2.5 Mg/3 Ml Vial.Neb.) 2.5 mg INHALATION Q2H PRN PRN PRN Reason: Shortness of Breath/Wheezing Albuterol/Ipratropium (Ipratropium/Albuterol Sulfate 3 Ml Ampul.Neb) 3 ml INHALATION Q4HWA.RT [facility] Last Admin: 09/30/20 10:01 Dose: 3 ml Documented by: Amiodarone HCl (Amiodarone 200 Mg Tablet) 200 mg PO BID [facility] Last Admin: 09/30/20 10:33 Dose: 200 mg Documented by: Buspirone HCl (Buspirone 5 Mg Tablet) 5 mg PO QHS [facility] Citalopram Hydrobromide (Citalopram 40 Mg Tablet) 40 mg PO DAILY [facility] Last Admin: 09/30/20 10:34 Dose: 40 mg Documented by: Cyanocobalamin (Cyanocobalamin 500 Mcg Tablet) 500 mcg PO DAILY [facility] Last Admin: 09/30/20 10:36 Dose: Not Given Documented by: Docusate Sodium (Docusate Sodium 100 Mg Capsule) 100 mg PO BID [facility] Last Admin: 09/30/20 10:33 Dose: 100 mg Documented by: Ergocalciferol (Ergocalciferol 50,000 Unit Capsule) 50,000 unit PO TH [facility] Furosemide (Furosemide 20 Mg Tablet) 20 mg PO DAILY [facility] Last Admin: 09/30/20 10:34 Dose: 20 mg Documented by: Sodium Chloride () 250 mls @ 15 mls/hr IV .[id number] PRN PRN Reason: Saline Flush Lactobacillus Acidophilus (Lactobacillus Acidophilus) 1 tablet PO DAILY [facility] Last Admin: 09/30/20 10:33 Dose: 1 tablet Documented by: Melatonin (Melatonin 3 Mg Tablet) 3 mg PO QHS PRN PRN PRN Reason: INSOMNIA Metoprolol Tartrate (Metoprolol Tartrate 25 Mg Tablet) 25 mg PO BID [facility] Last Admin: 09/30/20 10:34 Dose: 25 mg Documented by: Multivitamins/Minerals (Multivitamin (Healthy Eyes) Capsule) 1 capsule PO BID [facility] Last Admin: 09/30/20 10:33 Dose: 1 capsule Documented by: Nutritional Formula (Lactose Free) (Ensure Enlive 120 Ml Liquid) 120 ml PO 4X/DAY [facility] Last Admin: 09/30/20 15:00 Dose: Not Given Documented by: Ondansetron HCl (Ondansetron 4 Mg/2 Ml Vial) 4 mg IV Q8H PRN PRN PRN Reason: NAUSEA/VOMITING Pantoprazole Sodium (Pantoprazole Sodium 20 Mg Tablet) 20 mg PO DAILY [facility] Last Admin: 09/30/20 10:33 Dose: 20 mg Documented by: Potassium Chloride (Potassium Chloride Oral Tablet 20 Meq) 20 meq PO DAILY [facility] Last Admin: 09/30/20 10:33 Dose: 20 meq Documented by: Prednisone (Prednisone 20 Mg Tablet) 40 mg PO DAILY@0800 [facility] Last Admin: 09/30/20 10:34 Dose: 40 mg Documented by: Senna/Docusate Sodium (Senna/Docusate Sodium 1 Tablet) 1 tablet PO QHS [facility] Sodium Chloride (0.9% Saline Lock 10 Ml Syringe) 10 - 40 ml IV UD PRN PRN Reason: SALINE FLUSH Last Admin: 09/30/20 03:16 Dose: 10 ml Documented by: STROKE Vital Signs/Narrative: Vital Signs Pulse 09/30/20 13:00 91 Medical Necessity - Tobacco Use Smoking Status: Former smoker Tobacco Use: Cigarettes Assessment/Plan All Active Problems (Last Reviewed 09/30/20 @ 01:[address] Paulo Mota MD) Encephalopathy acute (Acute) Digoxin toxicity (Resolved) 1. acute metabolic encephalopathy improved suspect pt at or near baseline. likely due to non-compliance with bipap avoid medication that could exacerbate this. 2. acute respiratory failure ruled out not hypoxic 3. afib on amio and metoprolol warfarin on hold given supratherapeutic INR 4. supratherapeutic INR warfarin on hold monitor 5. VTE prophylaxis: anticoagulated. Inpatient E&M: 88534 Subs Hosp L2
[2020-09-30] MEDS: Senna/Docusate Sodium 1 Tablet PO (22:18)
[2020-09-30] MEDS: busPIRone 5 MG Tablet PO (22:18)
[2020-10-01] VITALS (13 sets, daily range): BP systolic 95–122; BP diastolic 66–83; PULSE 71–108; RESP 12–24; TEMP 36.4–36.7; O2SAT 92–99
[2020-10-01 06:30] LABS: Prothrombin Time (Protime)PT. 61.7 SECONDS (11.7-14.9)
[2020-10-01 06:32] LABS: International Normalized Ratio 7.1
[2020-10-01] MEDS: Ipratropium/Albuterol Sulfate 3 ML AMPUL.NEB INHALATION ×3 (07:23→14:57)
[2020-10-01] MEDS: AcetaZOLAMIDE 250 MG Tablet PO (09:03)
[2020-10-01] MEDS: Potassium Chloride Oral Tablet 20 MEQ PO (09:03)
[2020-10-01] MEDS: Metoprolol Tartrate 25 MG Tablet PO (09:03)
[2020-10-01] MEDS: Multivitamin (Healthy Eyes) Capsule 1 CAP PO (09:03)
[2020-10-01] MEDS: Pantoprazole Sodium 20 MG Tablet PO (09:04)
[2020-10-01] MEDS: Furosemide 20 MG Tablet PO (09:04)
[2020-10-01] MEDS: Docusate Sodium 100 MG Capsule PO (09:04)
[2020-10-01] MEDS: predniSONE 20 MG Tablet 40 MG PO (09:04)
[2020-10-01] MEDS: Amiodarone 200 MG Tablet PO (09:04)
[2020-10-01] MEDS: Citalopram 40 MG TABLET PO (09:04)
--- NOTE | 2020-10-01 10:13 | CASEMGMT ---
YAO called Stacy at [facility]. Patient does not need a new pre-cert to return. She is a emt intermediate resident. YAO let her know it is possible patient may return today. Regla VIZCARRA MSW
--- NOTE | 2020-10-01 13:27 | TREXTCAR_ITS ---
- Diet 09/30/20 11:28 Diet: Regular - General Food consistency:: Regular Liquid Consistency:: Regular/Thin Dietary Modifications:: Sodium Restricted Type of Dietary Supplement:: Ensure Pudding Is pt able to select menu?: Yes Diet Comments: Ensure pudding B&L, Magic Cup w/ dinner. - Routine Orders/Code Status O2 Liters per Minute: 2 O2 Frequency: Continuous Routine Lab Work: INR - INR Mondays and and PRN Code Status: DNRCC-A - no intubation - Therapies Physical Therapy: Eval and Treat Occupational Therapy: Eval and Treat - Allergies/Procedures Done in Hospital Allergies/Adverse Reactions: Allergies amlodipine besylate [From [facility]] Adverse Reaction (Verified 09/01/20 15:28) ANKLE AND LEG EDEMA RESOLVED OFF MED-PER PCP PAPERWORK codeine Adverse Reaction (Verified 09/01/20 15:28) MENTAL STATUS CHANGE lisinopril Adverse Reaction (Verified 09/01/20 15:) COUGH - Type of Care/Length of Stay Estimated LOS: More Than 30 Days Type of Care Needed: [facility] Re[facility] Potential: Fair Prognosis: Fair - Additional Orders/Day of Discharge Additional Orders: BiPAP QHS and with naps. Day of Discharge: 10/01/20 - Dietary and Speech Recommendations Dietitian Recommendations/Changes: Will provide Regular diet, sodium restricted to promote PO intake at meals and will provide ensure pudding/magic cup for additional emerald/pro if consumed. Continue Ensure Enlive 120 ml w/ medpass. - Follow Up Care Primary Care Physician: Tor Lucia MD [Primary Care Provider] - Within 2 Weeks
--- NOTE | 2020-10-01 14:29 | CASEMGMT ---
YAO spoke with patient and asked if she thinks she will be able to get in and out of her daughters car. She said she can. YAO faxed orders to [facility]. YAO called patient's daughter and left her a voice mail requesting a call back regarding transport back to [facility]. Await call from patient's daughter. Plan: d/c back to [facility] Regla ANDERSON
--- NOTE | 2020-10-01 14:42 | PHA.DC.MR ---
Pharmacy Service has performed discharge medication reconciliation for this patient upon transfer to [facility]. Home Medications Ergocalciferol [Vitamin D] 50,000 unit PO TH 07/19/15 Citalopram Hydrobromide [Citalopram HBr] 40 mg PO DAILY 05/23/18 Budesonide 2 ml IH BID@1400,2200 01/17/19 Omeprazole 20 mg PO DAILY 01/17/19 Vit A/Vit C/Vit E/Zinc/Copper [Preservision Areds Tablet] 1 tab PO BID 01/17/19 Buspirone HCl 5 mg PO QHS 05/07/19 Sennosides/Docusate Sodium [Senna Plus 8.6-50 mg Tablet] 2 tab PO QHS 08/22/19 Ipratropium/Albuterol Sulfate [Duoneb] 3 ml IH BID@0800,2000 04/04/20 AcetaAZOLAMIDE [Diamox] 250 mg PO BID 08/20/20 Cyanocobalamin (Vitamin B-12) [Vitamin B-12] 500 mcg PO DAILY 08/20/20 Lactobacillus Acidophilus [Acidophilus] 1 cap PO DAILY 08/20/20 Potassium Chloride [Klor-Con M20] 20 meq PO DAILY 08/20/20 Furosemide [Lasix] 20 mg PO DAILY #30 08/23/20 Acetaminophen [Tylenol Tablet] 650 mg PO Q6H PRN PRN tab 09/05/20 Albuterol Aerosols [Ventolin Aerosols] 2.5 mg INHALATION Q2H PRN PRN vial.neb. 09/05/20 Amiodarone HCl [Cordarone] 200 mg PO BID tab 09/05/20 Docusate Sodium [Colace] 100 mg PO BID cap 09/05/20 Ensure Enlive 120 ml PO 4X/DAY liquid 09/05/20 Metoprolol Tartrate [Lopressor (beta donna)] 25 mg PO BID tab 09/05/20 Warfarin Sodium 2 mg PO DAILY #0 10/01/20 The patient's discharge medication list was reviewed for discrepancies and discrepancies were resolved.
--- NOTE | 2020-10-01 14:58 | CASEMGMT ---
SW spoke with patient's daughter. She said the nurse was going to call her when patient is ready to go. SW checked with RN and she asked that she give her about an hour so she can get patient ready. SW let patient's daughter know this information. Plan: d/c back to [facility] under intermediate level of care. Patient's daughter transported her via private vehicle. Regla ANDERSON
--- NOTE | 2020-10-01 15:30 | NURSING ---
report called to [facility]
--- NOTE | 2020-10-01 15:45 | DS.PCM_ITS ---
Discharge Date and Diagnosis - Problem List Patient Problems: Active and Suspected Problems (Last Reviewed 09/30/20 @ 01:[address] Paulo Mota MD) Encephalopathy acute (Acute) Date of Admission: 09/29/20 Date of Discharge: 10/01/20 - Primary Discharge Diagnosis Acute Problems: Active Problems (Last Reviewed 09/30/20 @ 01:[address] Paulo Mota MD) 1. acute metabolic encephalopathy improved suspect pt at or near baseline. likely due to non-compliance with bipap avoid medication that could exacerbate this. 2. acute respiratory failure ruled out not hypoxic - Secondary Discharge Diagnosis Chronic Problems: Chronic Problems (Last Reviewed 09/30/20 @ 01:[address] Paulo Mota MD) Back pain (Chronic) Compression fracture (Chronic) Other intervertebral disc degeneration, lumbar region (Chronic) Spinal stenosis, lumbar region with neurogenic claudication (Chronic) Spondylosis without myelopathy or radiculopathy, lumbar region (Chronic) Lumbago with sciatica, right side (Chronic) Compression fracture of thoracic vertebra with routine healing (Chronic) Anxiety (Chronic) COPD exacerbation (Chronic) ANKUSH (obstructive sleep apnea) (Chronic) Chronic hypoxemic respiratory failure (Chronic) Chronic anticoagulation (Chronic) Former tobacco use (Chronic) Depression (Chronic) Pulmonary hypertension (Chronic) History of recurrent deep vein thrombosis (DVT) (Chronic) History of pulmonary embolism (Chronic) History of cardioversion (Chronic) January of 2018.....HR not controlled with exertion while in AF on Beta donna and cardizem. Converted to NSR with cardioversion Paroxysmal atrial fibrillation (Chronic) DCCV on 01/31/2018; HTN (hypertension) (Chronic) Iron deficiency anemia (Chronic) Chronic diastolic CHF (congestive heart failure) (Chronic) Dyslipidemia (Chronic) COPD (chronic obstructive pulmonary disease) (Chronic) Hospital Course and Treatment Imaging Results: Clinical Impression(s) from Imaging Studies Brain CT 09/29/20 20:44 IMPRESSION: No acute intracranial or calvarial abnormality. There is no major interval change. Electronically Signed: Nikko Olivarez DO at 21:34 EDT Tel [phone], Service support , Chest X-Ray 09/29/20 21:09 IMPRESSION: No major interval change when compared with study of 09/01/2020. Electronically Signed: Nikko Olivarez DO at 21:39 EDT Tel [phone], Service support , Operations: None Procedures: None Summary of Care Provided: The patient is a 74 year old F presents with change in mental status. Patient resides at a longterm and was noted to be lethargic and confused. Has been ongoing for the previous eating 3 days where patient was not compliant with her BiPAP. She presented to the emergency room and refused an ABG but did have a VBG that did show hypercapnia.'s patient was placed on BiPAP and mental status improved overall. Patient was monitored overnight to ensure that she remained stable to which she was. [facility] will be [facility] in stable condition. Instructed the patient to utilize a BiPAP at night as well as with naps to help prevent CO2 retention. [] Patient Problems: Active and Suspected Problems (Last Reviewed 09/30/20 @ 01:[address] Paulo Mota MD) Encephalopathy acute (Acute) - Physical Exam Vitals/I&O's: Vital Signs Temp Pulse Resp BP Pulse Ox 36.6 C 97 17 110/78 94 10/01/20 13:36 10/01/20 14:50 10/01/20 14:50 10/01/20 13:36 10/01/20 13:36 Oxygen Flow Rate (L/min) 2 Oxygen Delivery Method Nasal Cannula Weight: 60.328 kg Body Mass Index (BMI) 22.8 Finger Stick Blood Glucose 111 Intake and Output for Last 24 Hours 09/29/20 09/30/20 10/01/20 23:59 23:59 23:59 Intake Total 775 / 775 350 / 350 Output Total 100 / 100 400 / 400 Balance 675 / 675 -50 / -50 General: Alert, Cooperative, No apparent distress HEENT: Atraumatic, Normocephalic Oral: Moist Mucosa, No Gingival or Mucosal Lesions/ Ulcerations Neck: No Nodes, Thyroid Normal Size and Texture Lungs: Clear to auscultation, Normal air movement Cardiovascular: Regular rate, Regular Rhythm, Normal S1, Normal S2, No murmurs Abdomen: Bowel Sounds Present, Soft, Non Tender, Non-Distended Extremities: No edema, No Calf Tenderness Laboratory Results 10/01/20 06:14: PT 61.7 H, INR 7.1 H* Current Medications Acetaminophen (Acetaminophen 325 Mg Tablet) 650 mg PO Q6H PRN PRN PRN Reason: Pain Score 1-10/Temp > 100.7 F Acetazolamide (Acetazolamide 250 Mg Tablet) 250 mg PO BID [facility] Last Admin: 10/01/20 09:03 Dose: 250 mg Documented by: Albuterol Sulfate (Albuterol 2.5 Mg/3 Ml Vial.Neb.) 2.5 mg INHALATION Q2H PRN PRN PRN Reason: Shortness of Breath/Wheezing Albuterol/Ipratropium (Ipratropium/Albuterol Sulfate 3 Ml Ampul.Neb) 3 ml INHALATION Q4HWA.RT [facility] Last Admin: 10/01/20 14:57 Dose: 3 ml Documented by: Amiodarone HCl (Amiodarone 200 Mg Tablet) 200 mg PO BID [facility] Last Admin: 10/01/20 09:04 Dose: 200 mg Documented by: Buspirone HCl (Buspirone 5 Mg Tablet) 5 mg PO QHS [facility] Last Admin: 09/30/20 22:18 Dose: 5 mg Documented by: Citalopram Hydrobromide (Citalopram 40 Mg Tablet) 40 mg PO DAILY [facility] Last Admin: 10/01/20 09:04 Dose: 40 mg Documented by: Docusate Sodium (Docusate Sodium 100 Mg Capsule) 100 mg PO BID [facility] Last Admin: 10/01/20 09:04 Dose: 100 mg Documented by: Ergocalciferol (Ergocalciferol 50,000 Unit Capsule) 50,000 unit PO TH [facility] Last Admin: 10/01/20 09:03 Dose: 50,000 unit Documented by: Furosemide (Furosemide 20 Mg Tablet) 20 mg PO DAILY [facility] Last Admin: 10/01/20 09:04 Dose: 20 mg Documented by: Sodium Chloride () 250 mls @ 15 mls/hr IV .[id number] PRN PRN Reason: Saline Flush Lactobacillus Acidophilus (Lactobacillus Acidophilus) 1 tablet PO DAILY [facility] Last Admin: 10/01/20 09:03 Dose: 1 tablet Documented by: Melatonin (Melatonin 3 Mg Tablet) 3 mg PO QHS PRN PRN PRN Reason: INSOMNIA Metoprolol Tartrate (Metoprolol Tartrate 25 Mg Tablet) 25 mg PO BID [facility] Last Admin: 10/01/20 09:03 Dose: 25 mg Documented by: Multivitamins/Minerals (Multivitamin (Healthy Eyes) Capsule) 1 capsule PO BID [facility] Last Admin: 10/01/20 09:03 Dose: 1 capsule Documented by: Nutritional Formula (Lactose Free) (Ensure Enlive 120 Ml Liquid) 120 ml PO 4X/DAY [facility] Last Admin: 10/01/20 09:05 Dose: Not Given Documented by: Ondansetron HCl (Ondansetron 4 Mg/2 Ml Vial) 4 mg IV Q8H PRN PRN PRN Reason: NAUSEA/VOMITING Pantoprazole Sodium (Pantoprazole Sodium 20 Mg Tablet) 20 mg PO DAILY [facility] Last Admin: 10/01/20 09:04 Dose: 20 mg Documented by: Potassium Chloride (Potassium Chloride Oral Tablet 20 Meq) 20 meq PO DAILY [facility] Last Admin: 10/01/20 09:03 Dose: 20 meq Documented by: Prednisone (Prednisone 20 Mg Tablet) 40 mg PO DAILY@0800 [facility] Last Admin: 10/01/20 09:04 Dose: 40 mg Documented by: Senna/Docusate Sodium (Senna/Docusate Sodium 1 Tablet) 1 tablet PO QHS [facility] Last Admin: 09/30/20 22:18 Dose: 1 tablet Documented by: Sodium Chloride (0.9% Saline Lock 10 Ml Syringe) 10 - 40 ml IV UD PRN PRN Reason: SALINE FLUSH Last Admin: 09/30/20 03:16 Dose: 10 ml Documented by: Discharge Diet: No Restrictions Home Medications: Medications to take at Discharge Ergocalciferol [Vitamin D] 50,000 unit PO TH 07/19/15 Citalopram Hydrobromide [Citalopram HBr] 40 mg PO DAILY 05/23/18 Budesonide 2 ml IH BID@1400,2200 01/17/19 Omeprazole 20 mg PO DAILY 01/17/19 Vit A/Vit C/Vit E/Zinc/Copper [Preservision Areds Tablet] 1 tab PO BID 01/17/19 Buspirone HCl 5 mg PO QHS 05/07/19 Sennosides/Docusate Sodium [Senna Plus 8.6-50 mg Tablet] 2 tab PO QHS 08/22/19 Ipratropium/Albuterol Sulfate [Duoneb] 3 ml IH BID@0800,199904/04/20 AcetaAZOLAMIDE [Diamox] 250 mg PO BID 08/20/20 Cyanocobalamin (Vitamin B-12) [Vitamin B-12] 500 mcg PO DAILY 08/20/20 Lactobacillus Acidophilus [Acidophilus] 1 cap PO DAILY 08/20/20 Potassium Chloride [Klor-Con M20] 20 meq PO DAILY 08/20/20 Furosemide [Lasix] 20 mg PO DAILY #30 08/23/20 Acetaminophen [Tylenol Tablet] 650 mg PO Q6H PRN PRN tab 09/05/20 Albuterol Aerosols [Ventolin Aerosols] 2.5 mg INHALATION Q2H PRN PRN vial.neb. 09/05/20 Amiodarone HCl [Cordarone] 200 mg PO BID tab 09/05/20 Docusate Sodium [Colace] 100 mg PO BID cap 09/05/20 Ensure Enlive 120 ml PO 4X/DAY liquid 09/05/20 Metoprolol Tartrate [Lopressor (beta donna)] 25 mg PO BID tab 09/05/20 Warfarin Sodium 2 mg PO DAILY #0 10/01/20 Primary Care Physician: Tor Lucia MD [Primary Care Provider] - Within 2 Weeks Disposition: Asstd Living/Non-Skill [place] Minutes spent on discharge:: 28 Patient Condition:: Fair Medical Necessity - Tobacco Use Smoking Status: Former smoker Tobacco Use: Cigarettes Meaningful Use Info Meaningful Use Diagnoses (Choose all that apply): None applicable Inpatient E&M: 04304 Disch Hosp
== END 2020-10-01 16:20 | disposition home or self-care (01) | DRG 190 ==
LOC: ED 20:57 → PCU 09-30 00:15
PROVIDERS: Admitting Provider Hospitalist; Emergency Provider Emergency Medicine; PCP Family Medicine
DX: J44.1 Chronic obstructive pulmonary disease with (acute) exacerbation (principal); G93.41 Metabolic encephalopathy; J96.22 Acute and chronic respiratory failure with hypercapnia; I50.32 Chronic diastolic (congestive) heart failure; Z99.81 Dependence on supplemental oxygen; I27.20 Pulmonary hypertension, unspecified; D50.9 Iron deficiency anemia, unspecified; E78.5 Hyperlipidemia, unspecified; F03.90 Unspecified dementia, unspecified severity, without behavioral disturbance, psychotic disturbance, mood disturbance, and anxiety; F32.9 Major depressive disorder, single episode, unspecified; F41.9 Anxiety disorder, unspecified; G47.33 Obstructive sleep apnea (adult) (pediatric); I11.0 Hypertensive heart disease with heart failure; I48.0 Paroxysmal atrial fibrillation; M47.816 Spondylosis without myelopathy or radiculopathy, lumbar region; M48.062 Spinal stenosis, lumbar region with neurogenic claudication; M51.36 Other intervertebral disc degeneration, lumbar region; M54.41 Lumbago with sciatica, right side; Z66 Do not resuscitate; G89.29 Other chronic pain; R79.1 Abnormal coagulation profile; T46.0X5A Adverse effect of cardiac-stimulant glycosides and drugs of similar action, initial encounter; Z79.899 Other long term (current) drug therapy; Z87.891 Personal history of nicotine dependence; Z87.01 Personal history of pneumonia (recurrent); Z79.01 Long term (current) use of anticoagulants; Z86.711 Personal history of pulmonary embolism; Z86.718 Personal history of other venous thrombosis and embolism; Z90.49 Acquired absence of other specified parts of digestive tract; Z90.710 Acquired absence of both cervix and uterus; Z91.19 Patient's noncompliance with other medical treatment and regimen
CPT/HCPCS: 36415; 70450; 71045; 80048; 80053; 81001; 82140; 82607; 82803; 84443; 85025; 85610; 93005; 94002; 94003; 94640; 99285; J7030; P9612; A4216

== ENCOUNTER 2020-11-04 12:56 | Emergency (ER) | payer MEDICARE, MEDICAID, SELFPAY ==
[2020-10-28 09:02] VITALS: BMI 21.1
[2020-11-04 13:00] VITALS: BP 137/81; PULSE 80; RESP 24; TEMP 36.6; O2SAT 96; BMI 21.9
[2020-11-04 13:03] VITALS: BP 137/81; PULSE 80; RESP 22; TEMP 36.6; O2SAT 98
[2020-11-04 13:05] VITALS: O2SAT 97
--- NOTE | 2020-11-04 13:19 | EKG12_ITS ---
Test Reason : SOB Blood Pressure : / mmHG Vent. Rate : 080 BPM Atrial Rate : 101 BPM P-R Int : 000 ms QRS Dur : 128 ms QT Int : 424 ms P-R-T Axes : -23 -59 082 degrees QTc Int : 489 ms Ventricular-paced rhythm Abnormal ECG Confirmed by SARAHY BHAT, KYLEIGH ([id number]), editor publications PABLITO TRUONG ([id number]) on 11/06/2020 8:10:01 AM Referred By: MIGUEL A Confirmed By:JERMAINE WEATHERS MD
--- NOTE | 2020-11-04 13:20 | ED.VIS.GEN ---
History of Present Illness Chief Complaint: Shortness of Breath Informant: Patient Onset: Yesterday Current Severity: Moderate Maximum Severity: Moderate Narrative: Patient presents secondary to shortness of breath. She is a history of COPD and asthma. She is on home oxygen at 3 L. Patient states that her shortness of breath developed yesterday. She felt like she was tight and wheezing. Breathing treatments at the custodial were not helping her. EMS did give 2 DuoNeb treatments in route. They do note that much of the liquid from the first spilled and she did not get to full treatments. Patient states she does feel improved on arrival. She denies chest pain. She denies cough. No fever or chills. She had a pacemaker defibrillator placed earlier this month. - Past Medical History (1) Anxiety Status: Chronic (2) COPD (chronic obstructive pulmonary disease) Status: Chronic (3) Chronic diastolic CHF (congestive heart failure) Status: Chronic (4) Dyslipidemia Status: Chronic (5) HTN (hypertension) Status: Chronic (6) History of pulmonary embolism Status: Chronic (7) History of recurrent deep vein thrombosis (DVT) Status: Chronic (8) Paroxysmal atrial fibrillation Status: Chronic Comment: DCCV on 01/31/2018; (9) Pulmonary hypertension Status: Chronic Past Medical History - Allergies and Home Meds Allergies/Adverse Reactions: Allergies amlodipine besylate [From [facility]] Adverse Reaction (Verified 11/04/20 13:04) ANKLE AND LEG EDEMA RESOLVED OFF MED-PER PCP PAPERWORK codeine Adverse Reaction (Verified 11/04/20 13:04) MENTAL STATUS CHANGE lisinopril Adverse Reaction (Verified 11/04/20 13:04) COUGH Primary Care Physician: Tor Lucia MD [Primary Care Provider] - Prior records reviewed: Yes Surgical History: cholecystectomy, hysterectomy, - - tailbone surgery. Lives: [facility] Smoking Status: Former smoker - Family History Maternal Family History: Family History (Last Reviewed 10/28/20 @ 09:14 by Eveline Jason NP, [employer]) Sister Heart disease Family History: Reports: - - Denies known maternal medical history including cardiac history. Paternal Family History: Family History (Last Reviewed 10/28/20 @ 09:14 by Eveline Jason NP, [employer]) Sister Heart disease Family History: Reports: - - Denies known paternal medical history including cardiac history. Sibling Family History: Family History (Last Reviewed 10/28/20 @ 09:14 by Eveline Jason [employer], [employer]) Sister Heart disease Family History: Reports: Heart Disease Review of Systems General: Denies: Chills, Fever Eyes: Denies: Visual changes - bilaterally ENT: Denies: Bilateral ear pain Cardiovascular: Denies: Chest pain Respiratory: Reports: Dyspnea. Denies: Cough, Sputum Gastrointestinal: Denies: Abdominal pain, Nausea, Vomiting, Diarrhea Genitourinary: Denies: Dysuria Musculoskeletal: Denies: Swelling, Extremity Pain Skin: Denies: Rash Hematologic: Denies: Easy bruising, Easy bleeding Allergy: Denies: Uticaria Physical Exam Vital Signs/Narrative: Vital Signs Temp Pulse Resp BP Pulse Ox 11/04/20 13:03 98 F 80 22 H 137/81 H 98 11/04/20 13:00 98 F 80 24 H 137/81 H 96 Inital Vital Signs reviewed: Yes General: Well nourished, Well developed Head: Normocephalic Neck: Supple Cardiovascular: Regular rate, Regular rhythm Respiratory: - - Lung sounds slightly diminished. Mild expiratory wheezes noted. Abdomen: Soft, Nontender Extremities: Nontender, No edema Skin: Normal color Neurological: Alert, Oriented x3 Psychological: Normal affect Diagnostic/Tx/Re-eval Chest X-Ray - ED: 1 View, Read by ED Physician, Chronic Changes Impressions Chest X-Ray 11/04/20 14:05 IMPRESSION: Mild increased markings at the lung bases with mild superimposed CHF. Electronically Signed: Nathen Dickinson MD at 14:31 EDT , Service support , 11/04/20 14:05 Chest 1 View (Portable) [RAD] Stat 11/04/20 13:30 Nasal Secretion SARS-CoV-2 Antigen (Rapid) - Final Laboratory Results 11/04/20 11/04/20 11/04/20 13:38 13:38 13:38 WBC 9.3 RBC 3.82 L Hgb 10.4 L Hct 35.1 L MCV 91.9 MCH 27.2 MCHC 29.6 L RDW Std Deviation 54.0 H RDW Coeff of Laura 16.1 H Plt Count 268 MPV 12.7 H Immature Gran % (Auto) 0.300 Neut % (Auto) 76.6 H Lymph % (Auto) 13.8 L [place] % (Auto) 7.7 Eos % (Auto) 1.1 Baso % (Auto) 0.5 Absolute Neuts (auto) 7.1 Absolute Lymphs (auto) 1.29 Nucleated RBC % 0 PT 22.3 H INR 2.0 Sodium 141 Potassium 3.7 Chloride 106 Carbon Dioxide 31.0 Anion Gap 4 L BUN 12 Creatinine 0.67 Estim Creat Clear Calc 46.54 Est GFR (MDRD) Af Amer 109 Est GFR (MDRD) Non-Af 90 BUN/Creatinine Ratio 17.8 Glucose 84 Calcium 8.8 - EKG Initial EKG Interpretation: - - Paced rhythm 80 bpm. No acute ischemia. - Medical Decision Making Patient was given IV Solu-Medrol here. She had just finished a DuoNeb treatment when I evaluated her. Blood work is unremarkable. Covid test is negative. Chest x-ray reveals chronic changes. Radiologist feels there might be a slight degree of CHF. On repeat evaluation patient does feel improved. She is satting 97% on her baseline 3 L. She does not want to be admitted to the hospital. She will be given a prescription for steroids and will be given a dose of IV Lasix prior to discharge. Daughter is at bedside and is comfortable with this plan as well. ED Disposition - Plan for ED Patient: Disposition: Home or Assisted Living Diagnosis: COPD exacerbation Instructions: ED COPD Flare Prescriptions: Prednisone 10 mg PO UD #33 tablet Referrals: Tor Lucia MD [Primary Care Provider] - 3-5 Days if not improving
[2020-11-04 14:03] VITALS: BP 132/79; PULSE 80; RESP 22; TEMP 36.6; O2SAT 97
--- NOTE | 2020-11-04 14:05 | RAD_ITS ---
STUDY: X-RAY CHEST REASON FOR EXAM: Female, 74 years old. Sob TECHNIQUE: Single AP portable view of the chest. COMPARISON: Comparison is made with prior study dated 09/29/2020. FINDINGS: EKG electrodes are seen. Stable elevation of the left hemidiaphragm. Mild increased markings at the lung bases suggestive of bibasilar atelectasis superimposed on scarring. Mild degree of vascular congestion. Normal size heart. A left-sided unipolar pacemaker is seen. Normal mediastinum and betty. Normal visualized pulmonary arteries. There is atherosclerotic calcification of the aortic arch with tortuosity. Normal visualized thoracic spine. Normal visualized ribs, clavicles, and shoulders. There is no demonstrated abnormality of the visualized soft tissue structures of the upper abdomen. RAD/Chest 1 View (Portable) IMPRESSION: Mild increased markings at the lung bases with mild superimposed CHF. Electronically Signed: Nathen Dickinson MD at 14:31 EDT , Service support ,
[2020-11-04 14:16] LABS: Absolute Lymphocyte Count 1.29 X10^3/uL (0.83-4.51); Absolute Neutrophil Count 7.1 X10^3/uL (2.0-7.7); Basophil# 0.05 X10^3/uL; Basophil% 0.5 % (0-1); Eosinophils% 1.1 % (0-5); Hematocrit 35.1 % (37-47); Hemoglobin 10.4 g/dL (12.0-15.0); Lymphocyte # 1.29 X10^3/ul (0.83-4.51); Lymphocyte % 13.8 % (19-41); Mean Corp Hgb Conc 29.6 g/dL (32-36); Mean Corpuscular Hgb 27.2 pg (27.0-32.0); Mean Corpuscular Volume 91.9 fL (81-99); Mean Platelet Vol. 12.7 fl (6.2-12.0); Monocyte# 0.72 X10^3/uL; Monocyte% 7.7 % (0-10); NRBC Flagged by Analyzer 0 % (0-5); Neutrophil # 7.13 X10^3/uL (2.7-7.7); Neutrophil % 76.6 % (47-70); Platelet Count 268 K/mm3 (150-450); RBC Distribution Width CV 16.1 % (11.6-14.6); Red Blood Count 3.82 M/mm3 (4.2-5.4); White Blood Count 9.3 K/mm3 (4.4-11.0)
[2020-11-04 14:17] LABS: Prothrombin Time (Protime)PT. 22.3 SECONDS (11.7-14.9)
[2020-11-04 14:20] LABS: Anion Gap 4 (5-15); BUN 12 mg/dL (7-18); BUN/Creat Ratio 17.8 RATIO (10-20); Calcium,Total 8.8 mg/dL (8.5-10.1); Chloride 106 mmol/L (98-107); Creatinine, Serum 0.67 mg/dL (0.55-1.02); EST Glomerular Filtration Rate 90 mL/min (>60); Est Glom Filt Rate - Afr Amer 109 mL/min (>60); Estimated Creatinine Clearance 46.54 ml/min; Glucose 84 mg/dL (74-106); Potassium 3.7 mmol/L (3.5-5.1); Sodium Level 141 mmol/L (136-145)
[2020-11-04] MEDS: MethylPREDNISolone 125 MG/2 ML Vial 60 MG IV (14:24)
[2020-11-04] MEDS: Furosemide 40 MG/4 ML Vial IV (15:31)
[2020-11-04 15:33] VITALS: BP 131/76; PULSE 80; RESP 22; O2SAT 97
== END 2020-11-04 15:39 | disposition home or self-care (01) ==
PROVIDERS: Emergency Provider Emergency Medicine; PCP Family Medicine
DX: J44.1 Chronic obstructive pulmonary disease with (acute) exacerbation (principal); E78.5 Hyperlipidemia, unspecified; I27.20 Pulmonary hypertension, unspecified; I48.0 Paroxysmal atrial fibrillation; F41.9 Anxiety disorder, unspecified; I11.0 Hypertensive heart disease with heart failure; I50.32 Chronic diastolic (congestive) heart failure; Z86.711 Personal history of pulmonary embolism; Z86.718 Personal history of other venous thrombosis and embolism; Z95.828 Presence of other vascular implants and grafts; Z79.01 Long term (current) use of anticoagulants; Z79.899 Other long term (current) drug therapy; Z87.891 Personal history of nicotine dependence
CPT/HCPCS: 71045; 80048; 85025; 85610; 87426; 93005; 96374; 96375; 99285; A4216; J1940

== ENCOUNTER 2021-05-24 16:51 | Observation (INO) | payer MEDICARE, MEDICAID, SELFPAY ==
[2021-05-24] VITALS (9 sets, daily range): BP systolic 103–119; BP diastolic 58–98; PULSE 59–66; RESP 17–19; TEMP 36.4–36.9; O2SAT 95–100; BMI 20.3; BMI 22.8
--- NOTE | 2021-05-24 17:30 | RAD_ITS ---
STUDY: X-RAY CHEST REASON FOR EXAM: Female, 75 years old. cough and sob TECHNIQUE: XR Chest 1 View COMPARISON: 11.04.20 FINDINGS: There is no demonstrated pleural abnormality. There is a left sided pacemaker batterypack. Normal size heart. Normal mediastinum and betty. Normal visualized pulmonary arteries. There is atherosclerotic calcification of the aortic arch with tortuosity. There are diffuse degenerative changes of the visualized thoracic spine. There is degenerative osteoarthritis of the bilateral shoulders. There is no demonstrated abnormality of the visualized soft tissue structures of the upper abdomen. RAD/Chest 1 View (Portable) IMPRESSION: There are no acute findings. Electronically Signed: Ti Lancaster MD at 18:00 EST , Service support ,
[2021-05-24 18:26] LABS: Absolute Lymphocyte Count 0.66 X10^3/uL (0.83-4.51); Basophil# 0.01 X10^3/uL; Basophil% 0.2 % (0-1); Hematocrit 39.2 % (37-47); Hemoglobin 11.2 g/dL (12.0-15.0); Lymphocyte # 0.66 X10^3/ul (0.83-4.51); Lymphocyte % 11.5 % (19-41); Mean Corp Hgb Conc 28.6 g/dL (32-36); Mean Corpuscular Hgb 24.7 pg (27.0-32.0); Mean Corpuscular Volume 86.5 fL (81-99); Mean Platelet Vol. 12.8 fl (6.2-12.0); Monocyte% 1.7 % (0-10); NRBC Flagged by Analyzer 0 % (0-5); Neutrophil # 4.96 X10^3/uL (2.7-7.7); Neutrophil % 86.3 % (47-70); POSITIVE MORPHOLOGY YES; Platelet Count 236 K/mm3 (150-450); RBC Distribution Width CV 17.9 % (11.6-14.6); RBC Distribution Width SD 57.1 fl (35.1-43.9); Red Blood Count 4.53 M/mm3 (4.2-5.4); White Blood Count 5.8 K/mm3 (4.4-11.0)
[2021-05-24 18:41] LABS: Anion Gap 4 (5-15); BUN 20 mg/dL (7-18); BUN/Creat Ratio 23.1 RATIO (10-20); Calcium,Total 8.9 mg/dL (8.5-10.1); Chloride 109 mmol/L (98-107); Creatinine, Serum 0.87 mg/dL (0.55-1.02); EST Glomerular Filtration Rate 67 mL/min (>60); Est Glom Filt Rate - Afr Amer 82 mL/min (>60); Estimated Creatinine Clearance 50.41 ml/min; Glucose 248 mg/dL (74-106); Potassium 3.9 mmol/L (3.5-5.1); Sodium Level 141 mmol/L (136-145)
[2021-05-24 18:55] LABS: Lactic Acid 2.6 mmol/L (0.4-1.9)
[2021-05-24 19:18] LABS: Differential Indicated SCAN CRITERIA MET
[2021-05-24 19:19] LABS: Platelet Estimate ADEQUATE (ADEQ)
[2021-05-24 19:20] LABS: Red Cell Morphology NORM C+C NORMAL (NORM C&C)
--- NOTE | 2021-05-24 20:15 | ED.VIS.DYS ---
HPI History of Present Illness Chief Complaint: Shortness of Breath Informant: patient Onset/Context/Timing Onset: Weeks (1) Context: gradual Timing: Continuous Quality: Positive for Wheezing Worsened by: Nothing Relieved by: Nothing Associated Symptoms cough, sore throat and yellow sputum; Negative for rhinorrhea, ear pain, fever, chills, clear sputum, white sputum or green sputum Chest Pain: Positive for - (Heaviness) Narrative Narrative: Patient presents with shortness of breath that has been getting worse over the past week. Patient states she is coughing up some yellow sputum. Patient denies any fevers or chills. Patient states she has some heaviness in her chest that is worse with coughing. Patient admits to a sore throat that is mainly from coughing. Patient is chronically on oxygen at the [facility] at 2 to 3 L nasal cannula. Patient denies any nausea or vomiting. Patient denies any urinary complaints. [facility] Medical History (Updated 05/24/21 @ 21:[address] Bonifacio Golden, DO) Atrial fibrillation COPD (chronic obstructive pulmonary disease) Dyslipidemia Essential hypertension Heart failure with preserved ejection fraction History of DVT (deep vein thrombosis) History of pulmonary embolus (PE) Pulmonary HTN Venous insufficiency Home Medications ergocalciferol (vitamin D2) 50,000 unit PO TH 07/19/15 [History Last Taken 08/27/20] citalopram 40 mg PO DAILY 05/23/18 [History Last Taken 09/01/20 10:44] budesonide 2 ml IH BID@1400,2200 01/17/19 [History Last Taken 09/01/20 13:27] omeprazole 20 mg PO DAILY 01/17/19 [History Last Taken 09/01/20 10:44] vitamins A,C,N-wsbl-yndnar 1 tab PO BID 01/17/19 [History Last Taken 09/01/20 10:44] buspirone 5 mg PO QHS 05/07/19 [History Last Taken 08/31/20 20:26] sennosides-docusate sodium 2 tab PO QHS 08/22/19 [History Last Taken 08/31/20 20:26] ipratropium-albuterol 3 ml IH BID@0800,2000 04/04/20 [History Last Taken 09/01/20 11:00] Lactobacillus acidophilus 1 cap PO DAILY 08/20/20 [History Last Taken 09/01/20 10:42] Potassium Chloride [Klor-Con M20] 20 meq PO DAILY 08/20/20 [History Last Taken 09/01/20 10:44] acetazolamide 250 mg PO BID 08/20/20 [History Last Taken 09/01/20 08:00] cyanocobalamin (vitamin B-12) 500 mcg PO DAILY 08/20/20 [History Last Taken 09/01/20 10:44] furosemide 20 mg PO DAILY #30 08/23/20 [Rx Last Taken 09/01/20 10:44] acetaminophen 650 mg PO Q6H PRN PRN tab 09/05/20 [Rx Last Taken Unknown] albuterol sulfate 2.5 mg INHALATION Q2H PRN PRN vial.neb. 09/05/20 [Rx Last Taken Unknown] amiodarone 200 mg PO BID tab 09/05/20 [Rx Last Taken Unknown] docusate sodium 100 mg PO BID cap 09/05/20 [Rx Last Taken Unknown] food supplemt, lactose-reduced 120 ml PO 4X/DAY liquid 09/05/20 [Rx Last Taken Unknown] warfarin 2 mg PO DAILY #0 10/01/20 [Rx Last Taken 08/30/20 20:43] lorazepam 0.5 mg tablet 0.5 mg PO DAILY PRN 10/28/20 [History Last Taken Unknown] prednisone 10 mg PO UD #33 tablet 11/04/20 [Rx Last Taken Unknown] Allergy/AdvReac Type Severity Reaction Status Date / Time amlodipine besylate AdvReac ANKLE AND Verified 02/10/21 10:24 [From [facility]] LEG EDEMA codeine AdvReac MENTAL Verified 02/10/21 10:24 STATUS CHANGE lisinopril AdvReac COUGH Verified 02/10/21 10:24 Family History Sister Heart disease Surgical History History of cholecystectomy History of total hysterectomy tailbone surgery Social History Smoking Status: Former smoker alcohol intake: never caffeine: Yes Type: coffee Number of servings: 1 ROS ROS ED Constitutional Constitutional ED: Denies chills or fever(s) Eyes Eyes: Denies blurry vision or change in vision ENT ENT ED: Reports sore throat; Denies rhinorrhea Cardiovascular Cardiovascular: Reports chest pain; Denies palpitations Respiratory/Chest Respiratory/Chest: Reports cough and dyspnea Gastrointestinal Gastrointestinal: Denies nausea or vomiting Genitourinary Genitourinary ED: Denies dysuria or hematuria Musculoskeletal Musculoskeletal: Denies back pain or neck pain Integumentary Denies abscess or rash Neurologic Neurologic: Denies headache(s) or weakness Allergic/Immunologic Allergic/Immunologic ED: Denies mouth swelling or urticaria EXAM Physical Exam Const Vital Signs: 05/24/21 16:52 05/24/21 20:23 05/24/21 20:24 Temperature 98.3 F Temperature Source Temporal Pulse Rate 59 L 60 Respiratory Rate 18 17 Respiratory Pattern Normal Blood Pressure 107/58 L 113/66 Blood Pressure Mean 74 81 Pulse Ox 95 97 Oxygen Delivery Method Nasal Cannula Nasal Cannula Nasal Cannula Oxygen Flow Rate (L/min) 2 2 2 05/24/21 20:45 05/24/21 20:46 Temperature 98.5 F Temperature Source Oral Pulse Rate 66 66 Respiratory Rate 19 H 17 Respiratory Pattern Normal Blood Pressure 103/62 Blood Pressure Mean 75 Pulse Ox 98 Oxygen Delivery Method Nasal Cannula Oxygen Flow Rate (L/min) 2 Positive well nourished and well developed General Appearance ED: well developed HEENT Reports moist mucous membranes Neck supple and no JVD Resp normal respiratory effort Auscultation: rhonchi throughout Cardio regular rate, regular rhythm and no murmurs GI normal to inspection, nondistended, normoactive bowel sounds and non-tender Palpation: soft Extremity normal to inspection General Extremety ED: Negative for edema or tenderness General Extremity: Negative for edema Neuro oriented x3, CN's II-XII intact bilaterally and no sensory deficits noted Sensorium / Orientation: alert Motor Exam: strength 5/5 throughout Psych mental status grossly normal Skin no rashes or lesions noted MDM MDM MDM Narrative Medical decision making narrative: Portable 1 view chest x-ray was obtained. On my interpretation, lung franklin are clear. There is normal cardiac silhouette. Bony thorax is normal. There is no acute process noted. Radiologist also interpreted the x-ray and agrees. CBC was within normal limits. Basic metabolic profile was essentially within normal limits. Glucose was slightly elevated to 48. Lactate was elevated 2.6. Patient was given a DuoNeb here. Patient is feeling somewhat better on reevaluation. Case was discussed with the hospitalist. He will admit the patient for observation. Patient understood and was agreeable with the plan. All questions were answered. Lab Data Attestation: I reviewed the patient's lab results. Labs: Laboratory Results - last 24 hr 05/24/21 05/24/21 05/24/21 18:05 18:05 18:05 WBC 5.8 RBC 4.53 Hgb 11.2 L Hct 39.2 MCV 86.5 MCH 24.7 L MCHC 28.6 L RDW Std Deviation 57.1 H RDW Coeff of Laura 17.9 H Plt Count 236 MPV 12.8 H Immature Gran % (Auto) 0.300 Neut % (Auto) 86.3 H Lymph % (Auto) 11.5 L [place] % (Auto) 1.7 Eos % (Auto) 0.0 Baso % (Auto) 0.2 Absolute Neuts (auto) 5.0 Absolute Lymphs (auto) 0.66 L Nucleated RBC % 0 Platelet Estimate ADEQUATE RBC Morphology NORM C+C Sodium 141 Potassium 3.9 Chloride 109 H Carbon Dioxide 28.0 Anion Gap 4 L BUN 20 H Creatinine 0.87 Estim Creat Clear Calc 50.41 Est GFR (MDRD) Af Amer 82 Est GFR (MDRD) Non-Af 67 BUN/Creatinine Ratio 23.1 H Glucose 248 H Lactic Acid 2.6 H* Calcium 8.9 Radiography Chest X-Ray - ED: 1 View, Read by ED Physician, Read by Radiologist and Normal Diagnostic Testing: Clinical Impression(s) from Imaging Studies Chest X-Ray 05/24/21 17:30 IMPRESSION: There are no acute findings. Electronically Signed: Ti Lancaster MD at 18:00 EST , Service support , Discharge Plan Triage Chief Complaint: Shortness of Breath ED Provider: Bonifacio Golden Dx/Rx/DC Orders Clinical Impression: COPD exacerbation, Acidosis, lactic Prescriptions: No Action lorazepam 0.5 mg tablet 0.5 mg PO DAILY PRNRF: 0 ergocalciferol (vitamin D2) 50,000 UNIT capsule 50,000 unit PO TH RF: 0 citalopram 40 MG tablet 40 mg PO DAILY RF: 0 budesonide 0.25 MG/2 ML suspension for nebulization 2 ml IH BID@1400,2200 RF: 0 omeprazole 20 MG tablet,delayed release (DR/EC) 20 mg PO DAILY RF: 0 vitamins A,C,T-xuvt-suvjci 1 EACH tablet 1 tab PO BID RF: 0 buspirone 7.5 MG tablet 5 mg PO QHS RF: 0 sennosides-docusate sodium 1 EACH tablet 2 tab PO QHS RF: 0 ipratropium-albuterol 3 ML solution for nebulization 3 ml IH BID@0800,2000 RF: 0 acetazolamide 250 MG tablet 250 mg PO BID RF: 0 cyanocobalamin (vitamin B-12) 500 MCG tablet 500 mcg PO DAILY RF: 0 Lactobacillus acidophilus 1 EACH capsule 1 cap PO DAILY RF: 0 Potassium Chloride [Klor-Con M20] 20 MEQ Tab.Er.Prt 20 meq PO DAILY RF: 0 furosemide 40 MG tablet 20 mg PO DAILY Qty: 30 RF: 0 acetaminophen 325 MG tablet 650 mg PO Q6H PRN PRN (Reason: Pain Score 1-10/Temp > 100.7 F) RF: 0 albuterol sulfate 2.5 MG/3 ML solution for nebulization 2.5 mg INHALATION Q2H PRN PRN (Reason: Shortness of Breath/Wheezing) RF: 0 amiodarone 200 MG tablet 200 mg PO BID RF: 0 docusate sodium 100 MG capsule 100 mg PO BID RF: 0 food supplemt, lactose-reduced 120 ML liquid 120 ml PO 4X/DAY RF: 0 warfarin 1 MG tablet 2 mg PO DAILY Qty: 0 RF: 0 prednisone 10 MG tablet 10 mg PO UD Qty: 33 RF: 0 Primary Care Provider: Tor Lucia Referrals: Tor Lucia MD [Primary Care Provider] - Disposition Disposition: Acute Care Hospital [facility]
[2021-05-24] MEDS: Ipratropium/Albuterol Sulfate 3 ML AMPUL.NEB INHALATION ×2 (20:44→23:56)
--- NOTE | 2021-05-24 21:37 | PCM.HP.STD ---
HPI - General HPI Narrative BERTO SIMPSON, is a 75 F who presents to the emergency room with worsening shortness of breath. Patient has a significant past medical history of severe COPD and she is oxygen dependent and lives [place]. She states she has had increased cough and shortness of breath with yellow sputum. Onset of symptoms began 3 days ago and had been started on prednisone. Despite this action the patient's shortness of breath got worse and she came to the emergency room for evaluation. She denies any chest pain, nausea, vomiting or fever or chills at this time. Lactic acid is elevated otherwise laboratory studies are unremarkable. Patient will be admitted for observation and recheck of her lactic acid in the morning. [facility] Medical History (Updated 05/24/21 @ 21:[address] Bonifacio Golden, ) Atrial fibrillation COPD (chronic obstructive pulmonary disease) Dyslipidemia Essential hypertension Heart failure with preserved ejection fraction History of DVT (deep vein thrombosis) History of pulmonary embolus (PE) Pulmonary HTN Venous insufficiency Home Medications ergocalciferol (vitamin D2) 50,000 unit PO 07/19/15 [History Last Taken 08/27/20] citalopram 40 mg PO DAILY 05/23/18 [History Last Taken 09/01/20 10:44] budesonide 2 ml IH BID@1400,2200 01/17/19 [History Last Taken 09/01/20 13:27] omeprazole 20 mg PO DAILY 01/17/19 [History Last Taken 09/01/20 10:44] vitamins A,C,B-ozsi-vdemtg 1 tab PO BID 01/17/19 [History Last Taken 09/01/20 10:44] buspirone 5 mg PO QHS 05/07/19 [History Last Taken 08/31/20 20:26] sennosides-docusate sodium 2 tab PO QHS 08/22/19 [History Last Taken 08/31/20 20:26] ipratropium-albuterol 3 ml IH BID@0800,2000 04/04/20 [History Last Taken 09/01/20 11:00] Lactobacillus acidophilus 1 cap PO DAILY 08/20/20 [History Last Taken 09/01/20 10:42] Potassium Chloride [Klor-Con M20] 20 meq PO DAILY 08/20/20 [History Last Taken 09/01/20 10:44] acetazolamide 250 mg PO BID 08/20/20 [History Last Taken 09/01/20 08:00] cyanocobalamin (vitamin B-12) 500 mcg PO DAILY 08/20/20 [History Last Taken 09/01/20 10:44] furosemide 20 mg PO DAILY #30 08/23/20 [Rx Last Taken 09/01/20 10:44] acetaminophen 650 mg PO Q6H PRN PRN tab 09/05/20 [Rx Last Taken Unknown] albuterol sulfate 2.5 mg INHALATION Q2H PRN PRN vial.neb. 09/05/20 [Rx Last Taken Unknown] amiodarone 200 mg PO BID tab 09/05/20 [Rx Last Taken Unknown] docusate sodium 100 mg PO BID cap 09/05/20 [Rx Last Taken Unknown] food supplemt, lactose-reduced 120 ml PO 4X/DAY liquid 09/05/20 [Rx Last Taken Unknown] warfarin 2 mg PO DAILY #0 10/01/20 [Rx Last Taken 08/30/20 20:43] lorazepam 0.5 mg tablet 0.5 mg PO DAILY PRN 10/28/20 [History Last Taken Unknown] prednisone 10 mg PO UD #33 tablet 11/04/20 [Rx Last Taken Unknown] Allergy/AdvReac Type Severity Reaction Status Date / Time amlodipine besylate AdvReac ANKLE AND Verified 02/10/21 10:24 [From [facility]] LEG EDEMA codeine AdvReac MENTAL Verified 02/10/21 10:24 STATUS CHANGE lisinopril AdvReac COUGH Verified 02/10/21 10:24 Family History Sister Heart disease Surgical History History of cholecystectomy History of total hysterectomy tailbone surgery Social History Smoking Status: Former smoker alcohol intake: never caffeine: Yes Type: coffee Number of servings: 1 ROS Constitutional Constitutional: Denies chills or fever(s) ENT HEENT: Denies abnormal hearing Cardiovascular Cardiovascular: Denies chest pain Respiratory/Chest Respiratory/Chest: Reports shortness of breath at rest Gastrointestinal Gastrointestinal: Denies abdominal pain Genitourinary Genitourinary: Denies dysuria Musculoskeletal Musculoskeletal: Denies back pain Psychiatric Psychiatric: Denies anxiety Vital Signs Vital Signs Vital Signs: 05/24/21 16:52 05/24/21 20:23 05/24/21 20:24 Temperature 98.3 F Temperature Source Temporal Pulse Rate 59 L 60 Respiratory Rate 18 17 Respiratory Pattern Normal Blood Pressure 107/58 L 113/66 Blood Pressure Mean 74 81 Pulse Ox 95 97 Oxygen Delivery Method Nasal Cannula Nasal Cannula Nasal Cannula Oxygen Flow Rate (L/min) 2 2 2 05/24/21 20:45 05/24/21 20:46 Temperature 98.5 F Temperature Source Oral Pulse Rate 66 66 Respiratory Rate 19 H 17 Respiratory Pattern Normal Blood Pressure 103/62 Blood Pressure Mean 75 Pulse Ox 98 Oxygen Delivery Method Nasal Cannula Oxygen Flow Rate (L/min) 2 Weight Weight: 130 lb Body Mass Index (BMI) 20.3 Physical Exam Const oriented x3 General Appearance: cooperative HEENT head/scalp atraumatic Eyes PERRL Neck supple Lymph Lymphatic: no lymphadenopathy noted Resp Auscultation: rhonchi throughout Cardio regular rate, regular rhythm, S1 normal heart sound and S2 normal heart sound GI normal to inspection, nondistended, normoactive bowel sounds Skin General Skin Exam: turgor normal Neuro CN's II-XII intact bilaterally Psych affect normal Results Lab / Micro Data Result Diagrams: 05/24/21 18:05 05/24/21 18:05 Labs: Laboratory Results - last 24 hr 05/24/21 18:05: Lactic Acid 2.6 H* 05/24/21 18:05: WBC 5.8, RBC 4.53, Hgb 11.2 L, Hct 39.2, MCV 86.5, MCH 24.7 L, MCHC 28.6 L, RDW Std Deviation 57.1 H, RDW Coeff of Laura 17.9 H, Plt Count 236, MPV 12.8 H, Immature Gran % (Auto) 0.300, Neut % (Auto) 86.3 H, Lymph % (Auto) 11.5 L, [place] % (Auto) 1.7, Eos % (Auto) 0.0, Baso % (Auto) 0.2, Absolute Neuts (auto) 5.0, Absolute Lymphs (auto) 0.66 L, Nucleated RBC % 0, Platelet Estimate ADEQUATE, RBC Morphology NORM C+C 05/24/21 18:05: Sodium 141, Potassium 3.9, Chloride 109 H, Carbon Dioxide 28.0, Anion Gap 4 L, BUN 20 H, Creatinine 0.87, Estim Creat Clear Calc 50.41, Est GFR (MDRD) Af Amer 82, Est GFR (MDRD) Non-Af 67, BUN/Creatinine Ratio 23.1 H, Glucose 248 H, Calcium 8.9 Radiology Impression Chest X-Ray 05/24/21 17:30 IMPRESSION: There are no acute findings. Electronically Signed: Ti Lancaster MD at 18:00 EST , Service support , Assessment & Plan Assessment/Plan (1) Acidosis, lactic: (2) COPD exacerbation: PLAN: 1. COPD exacerbation?admit patient to medical surgical floor, oxygen therapy per protocol, IV Solu-Medrol every 8 hours, DuoNeb breathing treatments every 4 hours, Levaquin 500 mg IV daily 2. Lactic acidosis?recheck lactic acid in the morning. Gentle IV fluids normal saline overnight. 3. DVT prophylaxis?SCDs Charges/Coding Visit Charges OBSV E&M: [id number] Initial observation care L2
[2021-05-24 22:18] LABS: Reflex Lactate? Y
[2021-05-24] MEDS: levoFLOXacin IV 500 MG/100 ML BAG 100 MG IV (23:44)
[2021-05-24] MEDS: 0.9% Normal Saline 1,000 ML 50 ML IV (23:44)
[2021-05-24] MEDS: Docusate Sodium 100 MG Capsule PO (23:48)
[2021-05-24] MEDS: Senna/Docusate Sodium 1 Tablet PO (23:49)
[2021-05-24 23:57] LABS: Lactic Acid 2.1 mmol/L (0.4-1.9)
[2021-05-25] VITALS (9 sets, daily range): BP systolic 116–129; BP diastolic 57–66; PULSE 60–75; RESP 12–21; TEMP 36.2–36.4; O2SAT 97–99
[2021-05-25] MEDS: AcetaZOLAMIDE 250 MG Tablet PO ×3 (00:11→22:09)
[2021-05-25] MEDS: LORazepam 0.5 MG Tablet PO (00:11)
--- NOTE | 2021-05-25 01:40 | PCS.PANDOC ---
PANDEMIC DOCUMENTATION INITIATED: Date: 03/01/2021 Time: 1900 Emergency documentation initiated 05/24/21 @ 2235
[2021-05-25 05:25] LABS: Absolute Lymphocyte Count 0.92 X10^3/uL (0.83-4.51); Absolute Neutrophil Count 6.7 X10^3/uL (2.0-7.7); Hematocrit 35.5 % (37-47); Hemoglobin 10.4 g/dL (12.0-15.0); Lymphocyte # 0.92 X10^3/ul (0.83-4.51); Lymphocyte % 11.9 % (19-41); Mean Corp Hgb Conc 29.3 g/dL (32-36); Mean Corpuscular Hgb 25.1 pg (27.0-32.0); Mean Corpuscular Volume 85.5 fL (81-99); Mean Platelet Vol. 11.9 fl (6.2-12.0); Monocyte# 0.11 X10^3/uL; Monocyte% 1.4 % (0-10); NRBC Flagged by Analyzer 0 % (0-5); Neutrophil # 6.68 X10^3/uL (2.7-7.7); Neutrophil % 86.3 % (47-70); POSITIVE MORPHOLOGY YES; Platelet Count 211 K/mm3 (150-450); RBC Distribution Width CV 17.8 % (11.6-14.6); RBC Distribution Width SD 56.2 fl (35.1-43.9); Red Blood Count 4.15 M/mm3 (4.2-5.4); White Blood Count 7.7 K/mm3 (4.4-11.0)
[2021-05-25 05:31] LABS: Differential Indicated SCAN CRITERIA MET
[2021-05-25 05:46] LABS: Anion Gap 3 (5-15); BUN 22 mg/dL (7-18); BUN/Creat Ratio 28.6 RATIO (10-20); Calcium,Total 8.5 mg/dL (8.5-10.1); Chloride 110 mmol/L (98-107); Creatinine, Serum 0.77 mg/dL (0.55-1.02); EST Glomerular Filtration Rate 77 mL/min (>60); Est Glom Filt Rate - Afr Amer 94 mL/min (>60); Estimated Creatinine Clearance 45.82 ml/min; Glucose 137 mg/dL (74-106); Potassium 4.2 mmol/L (3.5-5.1); Sodium Level 142 mmol/L (136-145)
[2021-05-25 05:47] LABS: Atypical Lymphocyte 1+ %; Differential Comment SCANNED
[2021-05-25 05:48] LABS: Lactic Acid 1.3 mmol/L (0.4-1.9)
[2021-05-25] MEDS: Ipratropium/Albuterol Sulfate 3 ML AMPUL.NEB INHALATION ×5 (06:57→23:30)
[2021-05-25 09:12] LABS: BNP,B-Type NATRIURETIC PEPTIDE 194.8 pg/mL (0-100)
[2021-05-25] MEDS: Multivitamins,Ther W-Minerals Tablet 1 TABLET PO ×2 (09:35→16:56)
[2021-05-25] MEDS: Docusate Sodium 100 MG Capsule PO ×2 (09:36→22:00)
[2021-05-25] MEDS: Citalopram 40 MG TABLET PO (09:36)
[2021-05-25] MEDS: Potassium Chloride Oral Tablet 20 MEQ PO (09:37)
[2021-05-25] MEDS: Furosemide 20 MG Tablet PO (09:38)
[2021-05-25] MEDS: Cyanocobalamin 500 MCG Tablet PO (09:38)
[2021-05-25] MEDS: Pantoprazole Sodium 20 MG Tablet PO (09:38)
--- NOTE | 2021-05-25 09:43 | CASEMGMT ---
SW reviewed chart, pt is here from [place]. 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 She has a bed hold, no prior authorization needed. SW faxed updates to [place]. SW called daughter, confirmed plan will be for pt to return to [place] when medically ready. Daughter will drive pt back. SW will continue to follow. TRINI Gomez
--- NOTE | 2021-05-25 11:05 | PCM.PN.HOSP ---
Subjective Subjective Follow-up on acute COPD exacerbation: Patient was seen and examined. She feels worse. Still wheezy. Oxygen requirements have come down to 2.5 L. Objective Data Objective Data Vital Signs: Vital Signs Temp Pulse Resp BP Pulse Ox 97.1 F L 60 20 H 129/64 H 99 05/25/21 08:18 05/25/21 08:18 05/25/21 08:18 05/25/21 08:18 05/25/21 08:18 Oxygen Flow Rate (L/min) 2.5 Oxygen Delivery Method Nasal Cannula Weight: 66.2 kg Body Mass Index (BMI) 22.8 Intake & Output: Intake and Output for Last 24 Hours 05/23/21 05/24/21 05/25/21 23:59 23:59 23:59 Intake Total 400 / 400 Balance 400 / 400 Lab / Micro Data Result Diagrams: 05/25/21 05:16 05/25/21 05:16 Labs: Laboratory Results - last 24 hr 05/24/21 18:05: Lactic Acid 2.6 H* 05/24/21 18:05: WBC 5.8, RBC 4.53, Hgb 11.2 L, Hct 39.2, MCV 86.5, MCH 24.7 L, MCHC 28.6 L, RDW Std Deviation 57.1 H, RDW Coeff of Laura 17.9 H, Plt Count 236, MPV 12.8 H, Immature Gran % (Auto) 0.300, Neut % (Auto) 86.3 H, Lymph % (Auto) 11.5 L, [place] % (Auto) 1.7, Eos % (Auto) 0.0, Baso % (Auto) 0.2, Absolute Neuts (auto) 5.0, Absolute Lymphs (auto) 0.66 L, Nucleated RBC % 0, Platelet Estimate ADEQUATE, RBC Morphology NORM C+C 05/24/21 18:05: Sodium 141, Potassium 3.9, Chloride 109 H, Carbon Dioxide 28.0, Anion Gap 4 L, BUN 20 H, Creatinine 0.87, Estim Creat Clear Calc 50.41, Est GFR (MDRD) Af Amer 82, Est GFR (MDRD) Non-Af 67, BUN/Creatinine Ratio 23.1 H, Glucose 248 H, Calcium 8.9 05/24/21 23:11: Lactic Acid 2.1 H* 05/25/21 05:16: WBC 7.7, RBC 4.15 L, Hgb 10.4 L, Hct 35.5 L, MCV 85.5, MCH 25.1 L, MCHC 29.3 L, RDW Std Deviation 56.2 H, RDW Coeff of Laura 17.8 H, Plt Count 211, MPV 11.9, Immature Gran % (Auto) 0.400, Neut % (Auto) 86.3 H, Lymph % (Auto) 11.9 L, [place] % (Auto) 1.4, Eos % (Auto) 0.0, Baso % (Auto) 0.0, Absolute Neuts (auto) 6.7, Absolute Lymphs (auto) 0.92, Nucleated RBC % 0, Differential Comment SCANNED, Atypical Lymphocytes 1+ 05/25/21 05:16: Sodium 142, Potassium 4.2, Chloride 110 H, Carbon Dioxide 29.0, Anion Gap 3 L, BUN 22 H, Creatinine 0.77, Estim Creat Clear Calc 45.82, Est GFR (MDRD) Af Amer 94, Est GFR (MDRD) Non-Af 77, BUN/Creatinine Ratio 28.6 H, Glucose 137 H, Calcium 8.5 05/25/21 05:16: Lactic Acid 1.3 05/25/21 05:16: B-Natriuretic Peptide 194.8 H Radiography Diagnostic Testing: Radiology Impression Chest X-Ray 05/24/21 17:30 IMPRESSION: There are no acute findings. Electronically Signed: Ti Lancaster MD at 18:00 EST , Service support , Physical Exam Narrative Physical exam: General: Alert, Oriented x3, Cooperative, No apparent distress, Well developed HEENT: Atraumatic Oral: Moist Mucosa Neck: Supple Lungs: Diminished to auscultation, wheezes Cardiovascular: HS I+II, regular, no murmurs Abdomen: Bowel Sounds Present, Soft, Non Tender Extremities: No edema Assessment & Plan Assessment/Plan (1) Chronic hypoxemic respiratory failure: (2) Acute exacerbation of COPD with asthma: PLAN: 1. Acute on chronic hypoxic respiratory failure secondary to acute COPD exacerbation Patient is on 3 L of oxygen. She however has significant wheezes. Will continue on solumedrol, Levaquin, breathing treatments 2. Chronic A. fib, rate controlled, continue on amiodarone, Coumadin INR is 2.9 3. Heart failure with preserved EF, chronic, EF of 65%, not in acute exacerbation 4. Anxiety disorder, [facility] Charges/Coding Visit Charges Inpatient E&M: 92294 Subs Hosp L2
[2021-05-25 11:56] LABS: International Normalized Ratio 2.9; Prothrombin Time (Protime)PT. 29.1 SECONDS (11.7-14.9)
--- NOTE | 2021-05-25 16:15 | CASEMGMT ---
RN MARÍA called daughter to complete GALLOWAY form. RN MARÍA explained GALLOWAY form to daughter Irene, daughter voiced understanding. Telephone consent given by daughter. GALLOWAY form filed in chart and copy provided to patient. Daughter had no further questions or concerns at this time.
[2021-05-25] MEDS: Jantoven 2 MG Tablet PO (17:02)
[2021-05-25] MEDS: Albuterol 2.5 MG/3 ML VIAL.NEB. INHALATION (17:24)
[2021-05-25] MEDS: Senna/Docusate Sodium 1 Tablet PO (22:00)
[2021-05-25] MEDS: busPIRone 5 MG Tablet PO (22:00)
[2021-05-25] MEDS: Amiodarone 200 MG Tablet PO (22:00)
[2021-05-25] MEDS: 0.9% Saline Lock 10 ML Syringe IV (22:00)
[2021-05-25] MEDS: levoFLOXacin IV 500 MG/100 ML BAG 100 MG IV (22:00)
[2021-05-26] VITALS (8 sets, daily range): BP systolic 119–151; BP diastolic 67–80; PULSE 60–66; RESP 12–22; TEMP 36.8–37.2; O2SAT 98–100
[2021-05-26] MEDS: 0.9% Saline Lock 10 ML Syringe IV (05:43)
[2021-05-26 06:25] LABS: International Normalized Ratio 2.7; Prothrombin Time (Protime)PT. 27.6 SECONDS (11.7-14.9)
[2021-05-26] MEDS: Ipratropium/Albuterol Sulfate 3 ML AMPUL.NEB INHALATION (07:01)
[2021-05-26] MEDS: Multivitamins,Ther W-Minerals Tablet 1 TABLET PO (09:03)
[2021-05-26] MEDS: Amiodarone 200 MG Tablet PO (09:04)
[2021-05-26] MEDS: Citalopram 40 MG TABLET PO (09:04)
[2021-05-26] MEDS: Docusate Sodium 100 MG Capsule PO (09:04)
[2021-05-26] MEDS: AcetaZOLAMIDE 250 MG Tablet PO (09:05)
[2021-05-26] MEDS: Pantoprazole Sodium 20 MG Tablet PO (09:05)
[2021-05-26] MEDS: Potassium Chloride Oral Tablet 20 MEQ PO (09:05)
[2021-05-26] MEDS: Furosemide 20 MG Tablet PO (09:05)
[2021-05-26] MEDS: Cyanocobalamin 500 MCG Tablet PO (09:05)
--- NOTE | 2021-05-26 10:04 | TREXTCAR_ITS ---
Diet 05/24/21 22:25 Diet: Regular - General Food consistency:: Regular Liquid Consistency:: Regular/Thin Dietary Modifications:: No Added Salt Routine Orders/Code Status O2 Liters per Minute: 3 O2 Frequency: Continuous Keep PO Greater than or Equal to (%): 92 Routine Lab Work: CBC (within 3 days), BMP (within 3 days) and INR (daily x3 then back to previous schedule) Code Status: DNRCC-A Therapies Weight Bearing: Weight bearing as tolerated Problem/Diagnosis (1) Chronic hypoxemic respiratory failure: Status: Chronic (2) Acute exacerbation of COPD with asthma: Status: Chronic Allergies/Procedures Done in Hospital Allergies amlodipine besylate [From [facility]] Adverse Reaction (Verified 02/10/21 10:24) ANKLE AND LEG EDEMA RESOLVED OFF MED-PER PCP PAPERWORK codeine Adverse Reaction (Verified 02/10/21 10:24) MENTAL STATUS CHANGE lisinopril Adverse Reaction (Verified 02/10/21 10:24) COUGH Procedures: None Type of Care/Length of Stay Estimated LOS: More Than 30 Days Type of Care Needed: Skilled Rehab Potential: Fair Prognosis: Fair Additional Orders/Day of Discharge Day of Discharge: 05/26/21 Dietary and Speech Recommendations Dietitian Recommendations/Changes: Will adjust diet order to Regular/no added salt due to lasix. Will d/c ensure enlive w/ medpass per pt request and refuses to take ONS. Reassess for additional diet restrictions and ONS as needed once intake better established w/ meals. Discharge Plan Admission Admit Date/Time: 05/24/21 21:44 Primary Reason for Your Visit: Acute COPD exacerbation Attending Provider: Magalis Berg Primary Care Provider: Tor Lucia Discharge Orders/Prescriptions Prescriptions: New amiodarone 200 mg Tablet 200 mg PO BID Qty: 0 RF: 0 warfarin [Jantoven] 2 mg Tablet 2 mg PO DINNER Qty: 0 RF: 0 levofloxacin 500 mg tablet 500 mg PO DAILY 3 Days Qty: 3 RF: 0 prednisone 10 mg tablet See Taper mg PO DAILY Qty: 30 RF: 0 Continued lorazepam 0.5 mg tablet 0.5 mg PO QHS RF: 0 citalopram 40 MG tablet 40 mg PO DAILY RF: 0 budesonide 0.25 MG/2 ML suspension for nebulization 2 ml IH BID@1400,2200 RF: 0 omeprazole 20 MG tablet,delayed release (DR/EC) 20 mg PO DAILY RF: 0 vitamins A,C,I-tkya-turwuh 1 EACH tablet 1 tab PO BID RF: 0 buspirone 7.5 MG tablet 5 mg PO QHS RF: 0 sennosides-docusate sodium 1 EACH tablet 2 tab PO QHS RF: 0 ipratropium-albuterol 3 ML solution for nebulization 3 ml IH BID@0800,2000 RF: 0 acetazolamide 250 MG tablet 250 mg PO BID RF: 0 cyanocobalamin (vitamin B-12) 500 MCG tablet 500 mcg PO DAILY RF: 0 Lactobacillus acidophilus 1 EACH capsule 1 cap PO DAILY RF: 0 Potassium Chloride [Klor-Con M20] 20 MEQ Tab.Er.Prt 20 meq PO DAILY RF: 0 furosemide 40 MG tablet 20 mg PO DAILY Qty: 30 RF: 0 acetaminophen 325 MG tablet 650 mg PO Q6H PRN PRN (Reason: Pain Score 1-10/Temp > 100.7 F) RF: 0 albuterol sulfate 2.5 MG/3 ML solution for nebulization 2.5 mg INHALATION Q2H PRN PRN (Reason: Shortness of Breath/Wheezing) RF: 0 docusate sodium 100 MG capsule 100 mg PO BID RF: 0 Discontinued prednisone 10 MG tablet 10 mg PO UD Qty: 33 RF: 0 warfarin 5 mg Tablet 5 mg PO SUTUTH RF: 0 warfarin 6 mg Tablet 6 mg PO RF: 0 Referrals / Follow Up: Tor Lucia MD [Primary Care Provider] - Disposition Disposition (needs filled in before D/C Order can be placed): Long Term Facility
--- NOTE | 2021-05-26 10:16 | PCM.DC.SUM ---
Providers Date of Admission: 05/24/21 Date of Discharge: 05/26/21 Primary Care Physician: Dr. Tor Lucia MD Reason For Visit: COPD EXACERBATION Diagnosis Discharge Diagnosis (1) Chronic hypoxemic respiratory failure: Status: Chronic Code(s): J96.11 - Chronic respiratory failure with hypoxia (2) Acute exacerbation of COPD with asthma: Status: Acute Code(s): J44.1 - Chronic obstructive pulmonary disease with (acute) exacerbation; J45.901 - Unspecified asthma with (acute) exacerbation Medications at Discharge Home Medications citalopram 40 mg PO DAILY 05/23/18 budesonide 2 ml IH BID@1400,2200 01/17/19 omeprazole 20 mg PO DAILY 01/17/19 vitamins A,C,D-fzdd-dqnuqh 1 tab PO BID 01/17/19 buspirone 5 mg PO QHS 05/07/19 sennosides-docusate sodium 2 tab PO QHS 08/22/19 Lactobacillus acidophilus 1 cap PO DAILY 08/20/20 Potassium Chloride [Klor-Con M20] 20 meq PO DAILY 08/20/20 acetazolamide 250 mg PO BID 08/20/20 cyanocobalamin (vitamin B-12) 500 mcg PO DAILY 08/20/20 furosemide 20 mg PO DAILY #30 08/23/20 acetaminophen 650 mg PO Q6H PRN PRN tab 09/05/20 albuterol sulfate 2.5 mg INHALATION Q2H PRN PRN vial.neb. 09/05/20 docusate sodium 100 mg PO BID cap 09/05/20 lorazepam 0.5 mg tablet 0.5 mg PO QHS 10/28/20 amiodarone 200 mg PO BID #0 tab 05/26/21 ipratropium-albuterol 3 ml INHALATION TID #0 ml 05/26/21 levofloxacin 500 mg PO DAILY 3 Days #3 tab 05/26/21 prednisone See Taper PO DAILY #30 tab 05/26/21 warfarin [Jantoven] 2 mg PO DINNER #0 tab 05/26/21 Hospital Course Operations None Procedures None Summary of Care Provided Minutes Spent on Discharge: 45 Hospital Course: 75-year-old female with a past medical history of COPD with chronic hypoxic respiratory failure, resident in a correction who comes in with complaints of progressive shortness of breath ongoing for 3 days. Patient is usually on 2 to 3 L of oxygen, she was found to be on 4 L of oxygen. Her lactic acid was elevated. She was admitted to the [facility] floor and managed as acute COPD exacerbation. Patient improved and was back on her home oxygen level. She was discharged back to the correction on prednisone taper and 3 more days of Levaquin. Physical Exam Narrative Physical exam: General: Alert, Oriented x3, Cooperative, No apparent distress, Well developed HEENT: Atraumatic Oral: Moist Mucosa Neck: Supple Lungs: Diminished to auscultation, wheezes Cardiovascular: HS I+II, regular, no murmurs Abdomen: Bowel Sounds Present, Soft, Non Tender Extremities: No edema Weight / BMI Weight Weight: 66.2 kg Body Mass Index (BMI) 22.8 ABG / Lab / Microbiology Data Result Diagrams: 05/25/21 05:16 05/25/21 05:16 Laboratory: Laboratory Results - last 24 hr 05/25/21 11:28: PT 29.1 H, INR 2.9 05/26/21 05:50: PT 27.6 H, INR 2.7 D/C Instructions Discharge Diet: 2000 mg Sodium Diet Meaningful Use Info Meaningful Use Diagnoses (Choose all that apply): None applicable Discharge Plan Admission Admit Date/Time: 05/24/21 21:44 Primary Reason for Your Visit: Acute COPD exacerbation Attending Provider: Magalis Berg Primary Care Provider: Tor Lucia Discharge Orders/Prescriptions Prescriptions: New amiodarone 200 mg Tablet 200 mg PO BID Qty: 0 RF: 0 warfarin [Jantoven] 2 mg Tablet 2 mg PO DINNER Qty: 0 RF: 0 levofloxacin 500 mg tablet 500 mg PO DAILY 3 Days Qty: 3 RF: 0 prednisone 10 mg tablet See Taper mg PO DAILY Qty: 30 RF: 0 ipratropium-albuterol 0.5 mg-3 mg(2.5 mg base)/3 mL Solution For Nebulization 3 ml inhalation TID Qty: 0 RF: 0 Continued lorazepam 0.5 mg tablet 0.5 mg PO QHS RF: 0 citalopram 40 MG tablet 40 mg PO DAILY RF: 0 budesonide 0.25 MG/2 ML suspension for nebulization 2 ml IH BID@1400,2200 RF: 0 omeprazole 20 MG tablet,delayed release (DR/EC) 20 mg PO DAILY RF: 0 vitamins A,C,X-lkuk-xloyei 1 EACH tablet 1 tab PO BID RF: 0 buspirone 7.5 MG tablet 5 mg PO QHS RF: 0 sennosides-docusate sodium 1 EACH tablet 2 tab PO QHS RF: 0 acetazolamide 250 MG tablet 250 mg PO BID RF: 0 cyanocobalamin (vitamin B-12) 500 MCG tablet 500 mcg PO DAILY RF: 0 Lactobacillus acidophilus 1 EACH capsule 1 cap PO DAILY RF: 0 Potassium Chloride [Klor-Con M20] 20 MEQ Tab.Er.Prt 20 meq PO DAILY RF: 0 furosemide 40 MG tablet 20 mg PO DAILY Qty: 30 RF: 0 acetaminophen 325 MG tablet 650 mg PO Q6H PRN PRN (Reason: Pain Score 1-10/Temp > 100.7 F) RF: 0 albuterol sulfate 2.5 MG/3 ML solution for nebulization 2.5 mg INHALATION Q2H PRN PRN (Reason: Shortness of Breath/Wheezing) RF: 0 docusate sodium 100 MG capsule 100 mg PO BID RF: 0 Discontinued ipratropium-albuterol 3 ML solution for nebulization 3 ml IH BID@0800,2000 RF: 0 prednisone 10 MG tablet 10 mg PO UD Qty: 33 RF: 0 warfarin 5 mg Tablet 5 mg PO SUTUTH RF: 0 warfarin 6 mg Tablet 6 mg PO MOWEFRSA RF: 0 Referrals / Follow Up: Tor Lucia MD [Primary Care Provider] - Disposition Disposition (needs filled in before D/C Order can be placed): [facility] Charges/Coding Visit Charges Inpatient E&M: 17669 Disch Hosp
--- NOTE | 2021-05-26 13:09 | CASEMGMT ---
Social Work Per physician, pt is ready for discharge today. Phone call to [facility] and they are able to accept pt back today. Orders faxed. Pt updated and states she will call her dgt who will provide transportation. Nursing updated. Plan: Return to [facility], intermedicate level of care. GRICEL Urbina
== END 2021-05-26 14:09 | disposition skilled nursing facility (03) ==
LOC: ED 21:30 → MS2 22:09
PROVIDERS: Admitting Provider Family Medicine; Emergency Provider Emergency Medicine; PCP Family Medicine; Visit Provider Internal Medicine
DX: J44.1 Chronic obstructive pulmonary disease with (acute) exacerbation (principal); J96.11 Chronic respiratory failure with hypoxia; E78.5 Hyperlipidemia, unspecified; I11.0 Hypertensive heart disease with heart failure; I27.20 Pulmonary hypertension, unspecified; I87.2 Venous insufficiency (chronic) (peripheral); I48.20 Chronic atrial fibrillation, unspecified; F41.9 Anxiety disorder, unspecified; I50.32 Chronic diastolic (congestive) heart failure; Z86.718 Personal history of other venous thrombosis and embolism; Z86.711 Personal history of pulmonary embolism; Z99.81 Dependence on supplemental oxygen; Z79.899 Other long term (current) drug therapy; Z79.51 Long term (current) use of inhaled steroids; Z79.01 Long term (current) use of anticoagulants; Z79.52 Long term (current) use of systemic steroids; Z87.891 Personal history of nicotine dependence
CPT/HCPCS: 36415; 71045; 80048; 83605; 83880; 85025; 85610; 87040; 87426; 94002; 94003; 94640; 94760; 96365; 96366; 96375; 96376; 97802; 99218; 99285; J7030; A4216; G0378

== ENCOUNTER 2021-07-14 06:58 | Emergency (ER) | payer MEDICARE, MEDICAID, SELFPAY ==
[2021-07-14 06:58] VITALS: BP 128/60; PULSE 60; RESP 24; TEMP 37.4; O2SAT 97; BMI 25.9
[2021-07-14 07:09] VITALS: O2SAT 97
--- NOTE | 2021-07-14 07:15 | EKG12_ITS ---
Test Reason : SOB Blood Pressure : / mmHG Vent. Rate : 060 BPM Atrial Rate : 312 BPM P-R Int : 000 ms QRS Dur : 120 ms QT Int : 440 ms P-R-T Axes : 000 -62 102 degrees QTc Int : 440 ms Ventricular-paced rhythm Abnormal ECG Confirmed by KATELYN SEXTON MD ([id number]), web editor JANEEN MAK ([id number]) on 07/20/2021 10:19:04 AM Referred By: BB Confirmed By:KATELYN SEXTON MD
--- NOTE | 2021-07-14 07:16 | EDS_ITS ---
HPI History of Present Illness Chief Complaint: Shortness of Breath Narrative Narrative: 75-year-old female with history of COPD, asthma, pulmonary hypertension, DVT/PE, hypertension, CHF presenting with shortness of breath which he states has been ongoing for about a week and is progressive. She states she normally can get around pretty well with her walker or her 2 to 3 L baseline oxygen. She has not had to turn this up, however she does note that she is so short of breath she cannot walk to the bathroom very well. She is not had any falls. Patient is anticoagulated on Coumadin. She denies any black or bloody stools. She is unsure if she had any weight changes. She states her lower extremity edema is near baseline but may be a little bit worse. She denies chest pain. She has not had fever, chills, body aches. She does note she had Covid last year about a year ago. She has been vaccinated since then. [facility] Medical History Atrial fibrillation BiPAP (biphasic positive airway pressure) dependence COPD (chronic obstructive pulmonary disease) Dyslipidemia Essential hypertension Heart failure with preserved ejection fraction History of DVT (deep vein thrombosis) History of pulmonary embolus (PE) Pulmonary HTN Sleep apnea Venous insufficiency Home Medications citalopram 40 mg PO DAILY 05/23/18 [History Last Taken 09/01/20 10:44] budesonide 2 ml IH BID@1400,2200 01/17/19 [History Last Taken 09/01/20 13:27] omeprazole 20 mg PO DAILY 01/17/19 [History Last Taken 09/01/20 10:44] buspirone 2.5 mg PO QHS 05/07/19 [History Last Taken 08/31/20 20:26] sennosides-docusate sodium 2 tab PO QHS 08/22/19 [History Last Taken 08/31/20 20:26] Lactobacillus acidophilus 1 cap PO DAILY 08/20/20 [History Last Taken 09/01/20 10:42] Potassium Chloride [Klor-Con M20] 20 meq PO DAILY 08/20/20 [History Last Taken 09/01/20 10:44] acetazolamide 250 mg PO BID 08/20/20 [History Last Taken 09/01/20 08:00] cyanocobalamin (vitamin B-12) 500 mcg PO DAILY 08/20/20 [History Last Taken 09/01/20 10:44] furosemide 20 mg PO DAILY #30 08/23/20 [Rx Last Taken 09/01/20 10:44] albuterol sulfate 2.5 mg INHALATION Q2H PRN PRN vial.neb. 09/05/20 [Rx Last Taken Unknown] docusate sodium 100 mg PO BID cap 09/05/20 [Rx Last Taken Unknown] lorazepam 0.5 mg tablet 0.5 mg PO QHS 10/28/20 [History Last Taken Unknown] ipratropium-albuterol 3 ml INHALATION TID #0 ml 05/26/21 [Rx Last Taken Unknown] acetaminophen 650 mg PO Q8H PRN PRN 07/14/21 [History Last Taken Unknown] bisacodyl [Dulcolax (bisacodyl)] 10 mg CO DAILY PRN 07/14/21 [History Last Taken Unknown] magnesium hydroxide [Milk of Magnesia] 400 mg PO DAILY PRN 07/14/21 [History Last Taken Unknown] ondansetron HCl 4 mg PO Q6H PRN 07/14/21 [History Last Taken Unknown] vit C,P-Zq-ybvvo-lutein-zeaxan [PreserVision AREDS-2] 1 tab PO BID 07/14/21 [History Last Taken Unknown] warfarin [Coumadin] 4 mg PO 07/14/21 [History Last Taken Unknown] warfarin [Coumadin] 5 mg PO 07/14/21 [History Last Taken Unknown] Allergy/AdvReac Type Severity Reaction Status Date / Time amlodipine besylate AdvReac ANKLE AND Verified 02/10/21 10:24 [From [facility]] LEG EDEMA codeine AdvReac MENTAL Verified 02/10/21 10:24 STATUS CHANGE lisinopril AdvReac COUGH Verified 02/10/21 10:24 Family History Sister Heart disease Surgical History History of cholecystectomy History of total hysterectomy tailbone surgery Social History Smoking Status: Former smoker alcohol intake: never caffeine: Yes Type: coffee Number of servings: 1 ROS ROS ED Constitutional Constitutional ED: Denies chills or fever(s) Eyes Eyes: Denies blurry vision or diplopia ENT ENT ED: Denies rhinorrhea or sore throat Cardiovascular Cardiovascular: Denies chest pain or palpitations Respiratory/Chest Respiratory/Chest: Reports dyspnea and dyspnea on exertion Gastrointestinal Gastrointestinal: Denies abdominal pain, nausea or vomiting Genitourinary Genitourinary ED: Denies dysuria or hematuria Musculoskeletal Musculoskeletal: Denies arthralgias, myalgias or neck pain Integumentary Denies Abrasions or rash Neurologic Neurologic: Denies headache(s), paresthesias or weakness EXAM Physical Exam Const Vital Signs: 07/14/21 06:58 07/14/21 07:09 07/14/21 07:30 Temperature 99.3 F H Temperature Source Temporal Pulse Rate 60 60 Respiratory Rate 24 H 23 H Respiratory Effort Labored Respiratory Depth Deep Respiratory Pattern Normal Tachypnea Blood Pressure 128/60 H Blood Pressure Mean 82 Pulse Ox 97 Oxygen Delivery Method Nasal Cannula Nasal Cannula Oxygen Flow Rate (L/min) 2 07/14/21 09:33 Temperature 97.6 F L Temperature Source Temporal Pulse Rate 62 Respiratory Rate 16 Respiratory Effort Respiratory Depth Respiratory Pattern Blood Pressure 136/90 H Blood Pressure Mean 105 Pulse Ox 96 Oxygen Delivery Method Nasal Cannula Oxygen Flow Rate (L/min) 2 Positive well nourished General Appearance ED: NAD; Negative for pallor HEENT Reports moist mucous membranes atraumatic Eyes PERRL and EOMs intact bilaterally Resp normal respiratory effort Auscultation: wheezes scattered wheezes and diminished lung sounds bilateral Cardio regular rhythm GI non-tender and non-distended Palpation: soft Extremity General Extremety ED: Yes edema; Negative for tenderness General Extremity: edema Neuro oriented x3 and CN's II-XII intact bilaterally Sensorium / Orientation: alert Psych mental status grossly normal Thought Process: normal thought process Skin General Skin Exam: Negative for jaundice or pallor Rashes: no rashes MDM MDM MDM Narrative Medical decision making narrative: Patient presenting with dyspnea on exertion and lower extremity edema which is increased mildly. She is not having chest pain but I did obtain an EKG due to the dyspnea on exertion and on my interpretation this is a ventricular paced rhythm at 60 bpm without sign of ischemic change. Chest x-ray on my interpretation shows no acute cardiopulmonary process. CBC shows no leukocytosis. Hemoglobin is 9.4. She does appear to alternate up and down over time. She denies any black or bloody stools. INR is therapeutic at 2.0. Renal function and electrolytes are normal. High-sensitivity troponin is 14. BNP is elevated at 202. Given the lower extremity edema and the dyspnea on exertion I do believe this is likely exacerbation of CHF even though the chest x-ray does not show anything significant. I spoke with [facility] and he felt she was stable for [facility] to the [facility]. He will follow up with her. I will give her a dose of Lasix before she leaves. Patient discharged home in stable condition. Impression: 1. CHF exacerbation Lab Data Labs: Laboratory Results - last 24 hr 07/14/21 07/14/21 07/14/21 07:25 07:25 07:25 WBC 9.3 RBC 3.66 L Hgb 9.4 L Hct 31.8 L MCV 86.9 MCH 25.7 L MCHC 29.6 L RDW Std Deviation 54.7 H RDW Coeff of Laura 17.2 H Plt Count 150 MPV 13.5 H Immature Gran % (Auto) 0.400 Neut % (Auto) 75.1 H Lymph % (Auto) 14.4 L [place] % (Auto) 8.3 Eos % (Auto) 1.4 Baso % (Auto) 0.4 Absolute Neuts (auto) 7.0 Absolute Lymphs (auto) 1.34 Nucleated RBC % 0 Platelet Estimate ADEQUATE RBC Morphology NORM C+C PT 21.7 H INR 2.0 Sodium 143 Potassium 4.3 Chloride 111 H Carbon Dioxide 27.0 Anion Gap 5 BUN 14 Creatinine 0.60 Estim Creat Clear Calc 44.10 Est GFR (MDRD) Af Amer 124 Est GFR (MDRD) Non-Af 102 BUN/Creatinine Ratio 23.2 H Glucose 104 Calcium 8.5 Troponin I High Sens 14 B-Natriuretic Peptide 07/14/21 07:25 WBC RBC Hgb Hct MCV MCH MCHC RDW Std Deviation RDW Coeff of Laura Plt Count MPV Immature Gran % (Auto) Neut % (Auto) Lymph % (Auto) [place] % (Auto) Eos % (Auto) Baso % (Auto) Absolute Neuts (auto) Absolute Lymphs (auto) Nucleated RBC % Platelet Estimate RBC Morphology PT INR Sodium Potassium Chloride Carbon Dioxide Anion Gap BUN Creatinine Estim Creat Clear Calc Est GFR (MDRD) Af Amer Est GFR (MDRD) Non-Af BUN/Creatinine Ratio Glucose Calcium Troponin I High Sens B-Natriuretic Peptide 202.2 H Radiography Diagnostic Testing: Clinical Impression(s) from Imaging Studies Chest X-Ray 07/14/21 07:35 IMPRESSION: No acute findings in the chest. at 0816 Reported and signed by: Gavin Allison MD Electronically Signed: Gavin Allison MD at 8:15 EST Tel , Service support , Discharge Plan Triage Chief Complaint: Shortness of Breath ED Provider: Lonnie Pina Dx/Rx/DC Orders Instructions: ED Dyspnea Prescriptions: No Action lorazepam 0.5 mg tablet 0.5 mg PO QHS RF: 0 citalopram 40 MG tablet 40 mg PO DAILY RF: 0 budesonide 0.25 MG/2 ML suspension for nebulization 2 ml IH BID@1400,2200 RF: 0 omeprazole 20 MG tablet,delayed release (DR/EC) 20 mg PO DAILY RF: 0 buspirone 7.5 MG tablet 2.5 mg PO QHS RF: 0 sennosides-docusate sodium 1 EACH tablet 2 tab PO QHS RF: 0 acetazolamide 250 MG tablet 250 mg PO BID RF: 0 cyanocobalamin (vitamin B-12) 500 MCG tablet 500 mcg PO DAILY RF: 0 Lactobacillus acidophilus 1 EACH capsule 1 cap PO DAILY RF: 0 Potassium Chloride [Klor-Con M20] 20 MEQ Tab.Er.Prt 20 meq PO DAILY RF: 0 furosemide 40 MG tablet 20 mg PO DAILY Qty: 30 RF: 0 albuterol sulfate 2.5 MG/3 ML solution for nebulization 2.5 mg INHALATION Q2H PRN PRN (Reason: Shortness of Breath/Wheezing) RF: 0 docusate sodium 100 MG capsule 100 mg PO BID RF: 0 ipratropium-albuterol 0.5 mg-3 mg(2.5 mg base)/3 mL Solution For Nebulization 3 ml inhalation TID Qty: 0 RF: 0 warfarin [Coumadin] 4 mg Tablet 4 mg PO RF: 0 acetaminophen 325 MG tablet 650 mg PO Q8H PRN PRN (Reason: Pain Score 1-10/Temp > 100.7 F) RF: 0 warfarin [Coumadin] 5 mg Tablet 5 mg PO RF: 0 ondansetron HCl 4 mg Tablet 4 mg PO Q6H PRN (Reason: Nausea) RF: 0 magnesium hydroxide [Milk of Magnesia] 400 mg/5 mL Suspension 400 mg PO DAILY PRN (Reason: Constipation) RF: 0 bisacodyl [Dulcolax (bisacodyl)] 10 mg Suppository 10 mg CO DAILY PRN (Reason: Constipation) RF: 0 PreserVision AREDS-2 250-90-40-1 mg Capsule 1 tab PO BID RF: 0 Primary Care Provider: Tor Lucia Referrals: Tor Lucia MD [Primary Care Provider] - Disposition Disposition: Home, Self Care
[2021-07-14] MEDS: Ipratropium/Albuterol Sulfate 3 ML AMPUL.NEB INHALATION (07:26)
[2021-07-14 07:30] VITALS: PULSE 60; RESP 23
[2021-07-14] MEDS: MethylPREDNISolone 125 MG/2 ML Vial IV (07:31)
--- NOTE | 2021-07-14 07:35 | RAD_ITS ---
EXAM: XR CHEST, 1 VIEW : 1945 CLINICAL INDICATION: dyspnea TECHNIQUE: Frontal view of the chest. This report was created using [employer] report generation technology. COMPARISON: 05/24/2021 FINDINGS: LUNGS AND PLEURAL SPACES: Unremarkable. No consolidation or edema. No pneumothorax. No effusion. HEART: Unremarkable. Cardiac silhouette not enlarged. MEDIASTINUM: Central airways and mediastinal contour are unremarkable. BONES/JOINTS: Unremarkable. SOFT TISSUES: Unremarkable. TUBES, LINES AND DEVICES: Left-sided pacemaker is in stable position. UPPER ABDOMEN: There is elevation of the left hemidiaphragm. RAD/Chest 1 View (Portable) IMPRESSION: No acute findings in the chest. at 0816 Reported and signed by: Gavin Allison MD Electronically Signed: Gavin Allison MD at 8:15 EST Tel , Service support ,
[2021-07-14 07:36] LABS: Absolute Lymphocyte Count 1.34 X10^3/uL (0.83-4.51); Basophil# 0.04 X10^3/uL; Basophil% 0.4 % (0-1); Eosinophil# 0.13 X10^3/uL; Eosinophils% 1.4 % (0-5); Hematocrit 31.8 % (37-47); Hemoglobin 9.4 g/dL (12.0-15.0); Lymphocyte # 1.34 X10^3/ul (0.83-4.51); Lymphocyte % 14.4 % (19-41); Mean Corp Hgb Conc 29.6 g/dL (32-36); Mean Corpuscular Hgb 25.7 pg (27.0-32.0); Mean Corpuscular Volume 86.9 fL (81-99); Mean Platelet Vol. 13.5 fl (6.2-12.0); Monocyte# 0.77 X10^3/uL; Monocyte% 8.3 % (0-10); NRBC Flagged by Analyzer 0 % (0-5); Neutrophil # 6.97 X10^3/uL (2.7-7.7); Neutrophil % 75.1 % (47-70); POSITIVE MORPHOLOGY YES; Platelet Count 150 K/mm3 (150-450); RBC Distribution Width CV 17.2 % (11.6-14.6); RBC Distribution Width SD 54.7 fl (35.1-43.9); Red Blood Count 3.66 M/mm3 (4.2-5.4); White Blood Count 9.3 K/mm3 (4.4-11.0)
[2021-07-14 07:49] LABS: Prothrombin Time (Protime)PT. 21.7 SECONDS (11.7-14.9)
[2021-07-14 08:09] LABS: Anion Gap 5 (5-15); BUN 14 mg/dL (7-18); BUN/Creat Ratio 23.2 RATIO (10-20); Calcium,Total 8.5 mg/dL (8.5-10.1); Chloride 111 mmol/L (98-107); EST Glomerular Filtration Rate 102 mL/min (>60); Est Glom Filt Rate - Afr Amer 124 mL/min (>60); Glucose 104 mg/dL (74-106); Potassium 4.3 mmol/L (3.5-5.1); Sodium Level 143 mmol/L (136-145); Troponin-I HS 14 pg/mL (3.0-54.0)
[2021-07-14 08:16] LABS: BNP,B-Type NATRIURETIC PEPTIDE 202.2 pg/mL (0-100)
[2021-07-14 08:19] LABS: Differential Indicated SCAN CRITERIA MET
[2021-07-14 08:21] LABS: Platelet Estimate ADEQUATE (ADEQ); Red Cell Morphology NORM C+C NORMAL (NORM C&C)
--- NOTE | 2021-07-14 09:24 | NURSING ---
1733 DR VINSON PAGED HE CALLED BACK
[2021-07-14 09:33] VITALS: BP 136/90; PULSE 62; RESP 16; TEMP 36.4; O2SAT 96
[2021-07-14] MEDS: Furosemide 20 MG/2 ML VIAL IV (09:52)
[2021-07-14 10:29] VITALS: BP 126/81; PULSE 60; RESP 16; TEMP 36.4; O2SAT 96
== END 2021-07-14 10:39 | disposition home or self-care (01) ==
PROVIDERS: Emergency Provider Student in an Organized Health Care Education/Training Program; PCP Family Medicine
DX: I11.0 Hypertensive heart disease with heart failure (principal); J44.9 Chronic obstructive pulmonary disease, unspecified; I27.20 Pulmonary hypertension, unspecified; Z86.711 Personal history of pulmonary embolism; Z86.718 Personal history of other venous thrombosis and embolism; Z99.81 Dependence on supplemental oxygen; Z79.01 Long term (current) use of anticoagulants; Z79.899 Other long term (current) drug therapy; I48.91 Unspecified atrial fibrillation; E78.5 Hyperlipidemia, unspecified; I50.30 Unspecified diastolic (congestive) heart failure; G47.30 Sleep apnea, unspecified; I87.2 Venous insufficiency (chronic) (peripheral); Z87.891 Personal history of nicotine dependence
CPT/HCPCS: 71045; 80048; 83880; 84484; 85025; 85610; 87426; 93005; 94640; 96374; 96375; 99285; A4216; J1940

== ENCOUNTER 2022-04-14 18:12 | Emergency (ER) | payer MEDICARE, SELFPAY ==
[2022-04-14] VITALS (8 sets, daily range): BP systolic 127–147; BP diastolic 64–73; PULSE 60–65; RESP 17–25; TEMP 36.7–36.8; O2SAT 97–100; BMI 26.6
--- NOTE | 2022-04-14 18:32 | EKG12_ITS ---
Test Reason : DYSRHYTHMIA Blood Pressure : / mmHG Vent. Rate : 060 BPM Atrial Rate : 326 BPM P-R Int : 000 ms QRS Dur : 132 ms QT Int : 462 ms P-R-T Axes : 000 -67 094 degrees QTc Int : 462 ms Ventricular-paced rhythm Abnormal ECG Confirmed by CARLIE BHAT, KATELYN ([id number]), commercial production editor PABLITO TRUONG ([id number]) on 04/15/2022 10:39:50 AM Referred By: JENNI Confirmed By:KATELYN SEXTON MD
--- NOTE | 2022-04-14 18:39 | RAD_ITS ---
STUDY: X-RAY CHEST REASON FOR EXAM: Female, 76 years old. Rales, shortness of breath, expiratory wheezing, p TECHNIQUE: XR Chest 1 View COMPARISON: 07.14.21 FINDINGS: There is atherosclerotic calcification of the aortic arch with tortuosity. There are diffuse degenerative changes of the visualized thoracic spine. There is degenerative osteoarthritis of the bilateral shoulders. There is no demonstrated pleural abnormality. There is a left sided pacemaker batterypack. Normal size heart. Normal mediastinum and betty. Normal visualized pulmonary arteries. There is no demonstrated abnormality of the visualized soft tissue structures of the upper abdomen. RAD/Chest 1 View (Portable) IMPRESSION: There are no acute findings. Electronically Signed: Ti Lancaster MD at 18:51 EDT ,
--- NOTE | 2022-04-14 18:42 | EDS_ITS ---
HPI History of Present Illness Chief Complaint: Shortness of Breath Detail of Chief Complaint: Shortness of breath that became worse since yesterday Informant: patient, EMS and SNF Onset/Context/Timing Onset: Today (Today at 0200 patient developed midsternal chest pressure) and Yesterday (Shortness of breath started yesterday) Context: gradual Timing: Continuous Quality: Positive for Orthopnea (Chronic orthopnea. Patient has her bed at 45 degrees at night.) and Wheezing; Negative for PND Current Severity: Mild Maximum Severity: Moderate Worsened by: Exertion and Coughing Relieved by: Nothing Associated Symptoms cough; Negative for rhinorrhea, post nasal drip, ear pain, fever, sore throat, subjective, chills, sweats, clear sputum, white sputum, yellow sputum or green sputum Chest Pain: Positive for Continuous and Pressure Narrative Narrative: Patient is a 76-year-old woman who presents from custodial. She is on chronic oxygen at 2 L by nasal cannula. She has history of COPD and CHF. 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 There is a history of paroxysmal atrial fibrillation as well. Patient does have chronic diastolic congestive heart failure. Patient states shortness of breath became worse yesterday. She arrived on 4 L. She is normally on 2 L. She denies fever, chills night sweats. She does report cough. Cough is nonproductive. She also reports wheezing. She states she has a history of COPD. She has not received a breathing treatment recently. She states her legs are less swollen than normal. She is on Coumadin. She does not know when her last level was assessed. She denies bruising easily. She denies blood in her urine. Denies black or maroon-colored stool. Denies bleeding of her gums. PE Risk Factors: Positive for Prior DVT or PE and Recent immobilization; Negative for Cancer, OCP + Smoking + > 35, Recent surgery or Recent travel Prior similar symptoms: Yes (COPD and/or CHF) Recent Illness/Hospitalization: No PFSH PFSH Medical History Atrial fibrillation AV block, complete BiPAP (biphasic positive airway pressure) dependence COPD (chronic obstructive pulmonary disease) Dyslipidemia Essential hypertension Essential hypertension Heart failure with preserved ejection fraction History of DVT (deep vein thrombosis) History of pulmonary embolus (PE) Presence of permanent cardiac pacemaker (~10/12/20) Pulmonary HTN Sleep apnea Tachycardia-bradycardia syndrome Venous insufficiency Home Medications citalopram 40 mg tablet 40 mg PO DAILY DEPRESSION 05/23/18 [History Last Taken 09/01/20 10:44] omeprazole 20 mg tablet,delayed release 20 mg PO DAILY GERD 01/17/19 [History Last Taken 09/01/20 10:44] sennosides 8.6 mg-docusate sodium 50 mg tablet 2 tab PO QHS CONSTIPATION 08/22/19 [History Last Taken 08/31/20 20:26] Lactobacillus acidophilus 1 cap PO DAILY IMMUNE HEALTH 08/20/20 [History Last Taken 09/01/20 10:42] acetazolamide 250 mg tablet 250 mg PO BID EDEMA 08/20/20 [History Last Taken 09/01/20 08:00] cyanocobalamin (vitamin B-12) 500 mcg tablet 500 mcg PO DAILY SUPPLEMENT 08/20/20 [History Last Taken 09/01/20 10:44] albuterol sulfate 2.5 mg/3 mL (0.083 %) solution for nebulization 2.5 mg (3 mL) inhalation Q2H PRN PRN Shortness of Breath/Wheezing 09/05/20 [Rx Last Taken Unknown] docusate sodium 100 mg capsule 100 mg PO BID 09/05/20 [Rx Last Taken Unknown] lorazepam 0.5 mg tablet 0.5 mg PO QHS ANXIETY 10/28/20 [History Last Taken Unknown] ipratropium 0.5 mg-albuterol 3 mg (2.5 mg base)/3 mL nebulization soln 3 ml inhalation TID #0 mL 05/26/21 [Rx Last Taken Unknown] acetaminophen 325 mg tablet 650 mg PO TID 07/14/21 [History Last Taken Unknown] bisacodyl 10 mg rectal suppository (Dulcolax (bisacodyl)) 10 mg DE DAILY PRN Constipation 07/14/21 [History Last Taken Unknown] ondansetron HCl 4 mg tablet 4 mg PO Q4H PRN Nausea 07/14/21 [History Last Taken Unknown] vit C 250 mg-vit E 90 mg-zinc 40 mg-copper 1 [id number] capsule (PreserVision AREDS-2) 1 tab PO BID 07/14/21 [History Last Taken Unknown] warfarin 4 mg tablet 6 mg PO TUTH 07/14/21 [History Last Taken Unknown] warfarin 5 mg tablet 5 mg PO SUMOWEFRSA 07/14/21 [History Last Taken Unknown] budesonide 0.25 mg/2 mL suspension for nebulization 0.25 mg inhalation BID COPD 01/14/22 [History Last Taken Unknown] buspirone 5 mg tablet 2.5 mg PO QHS 01/14/22 [History Last Taken Unknown] cholecalciferol (vitamin D3) 125 mcg (5,000 unit) tablet 125 mcg PO TH 01/14/22 [History Last Taken Unknown] furosemide 20 mg tablet 20 mg PO DAILY 01/14/22 [History Last Taken Unknown] magnesium hydroxide 400 mg/5 mL oral suspension (Milk of Magnesia) 30 ml PO DAILY PRN Constipation 01/14/22 [History Last Taken Unknown] menthol 4 % topical gel (Biofreeze (menthol)) 1 applic topical BID PRN Pain 01/14/22 [History Last Taken Unknown] potassium chloride 20 mEq tablet,extended release 20 meq PO DAILY 01/14/22 [History Last Taken Unknown] sodium phosphates 19 gram-7 gram/118 mL enema 118 ml DE DAILY PRN Constipation 01/14/22 [History Last Taken Unknown] acetaminophen 500 mg capsule 1,000 mg PO Q8H PRN Pain 04/14/22 [History Last Taken Unknown] albuterol sulfate 90 mcg/actuation aerosol inhaler (Ventolin HFA) 2 puff inhalation Q4H PRN PRN Wheezing ##1 04/14/22 [Rx Last Taken Unknown] guaifenesin 100 mg/5 mL oral liquid (Tussin) 200 mg PO Q6H PRN Cough 04/14/22 [History Last Taken Unknown] menthol 4 % topical cream 1 applic topical Q2H PRN PRN Pain 04/14/22 [History Last Taken Unknown] nitrofurantoin monohydrate/macrocrystals 100 mg capsule 100 mg PO Q12 #10 CAPSULES 04/14/22 [Rx Last Taken Unknown] phenylephrine 0.25 %-hard fat 88.7 % rectal suppository (Hemorrhoidal (phenylephrine-hard fat)) 1 supp DE Q6H PRN PRN Hemorrhoids 04/14/22 [History Last Taken Unknown] prednisone 20 mg tablet 60 mg PO DAILY #12 TABLETS 04/14/22 [Rx Last Taken Unknown] Allergy/AdvReac Type Severity Reaction Status Date / Time amlodipine besylate AdvReac ANKLE AND Verified 04/14/22 18:20 [From [facility]] LEG EDEMA codeine AdvReac MENTAL Verified 04/14/22 18:20 STATUS CHANGE lisinopril AdvReac COUGH Verified 04/14/22 18:20 Family History Sister Heart disease Surgical History History of cholecystectomy History of total hysterectomy Hx of atrioventricular node ablation tailbone surgery Social History (Updated 04/14/22 @ 18:[address] Damion Lizarraga MD) household members: none housing: custodial Smoking Status: Former smoker how long ago did patient quit smoking: Approxiomately 2003 alcohol intake: never substance use type: does not use caffeine: No ROS ROS ED Constitutional Constitutional ED: Denies chills, fever(s), sweats or weight loss Eyes Eyes: Denies blurry vision, change in vision or diplopia ENT ENT ED: Denies ear pain, rhinorrhea or sore throat Cardiovascular Cardiovascular: Reports chest pain and orthopnea; Denies palpitations, paroxysmal nocturnal dyspnea or racing heartbeat Respiratory/Chest Respiratory/Chest: Reports cough, dyspnea, dyspnea on exertion and orthopnea; Denies paroxysmal nocturnal dyspnea Gastrointestinal Gastrointestinal: Reports abdominal pain and other Details: Patient developed right-sided abdominal pain during the history and physical. ; Denies constipation, diarrhea, melena, nausea or vomiting Genitourinary Genitourinary ED: Reports dysuria; Denies hematuria or urinary frequency Musculoskeletal Musculoskeletal: Denies arthralgias, back pain, myalgias or neck pain Integumentary Denies Abrasions or rash Neurologic Neurologic: Denies headache(s) or paresthesias Psychiatric Psychiatric: Denies anxiety or depression Endocrine Endocrinology: Denies cold intolerance, heat intolerance, polydipsia or polyuria Hematologic/Lymphatic Hematologic/Lymphatic: Reports easy bruising; Denies easy bleeding or lymphadenopathy EXAM Physical Exam Const Vital Signs: 04/14/22 18:13 04/14/22 18:19 04/14/22 18:20 Temperature 98.2 F 98.2 F Temperature Source Oral Oral Pulse Rate 65 65 Respiratory Rate 17 17 Respiratory Effort Short of Breath Respiratory Depth Normal Respiratory Pattern Normal Blood Pressure 139/72 H 139/72 H Blood Pressure Mean 94 94 Pulse Ox 99 99 Oxygen Delivery Method Nasal Cannula Nasal Cannula Nasal Cannula Oxygen Flow Rate (L/min) 4 4 4 04/14/22 18:38 04/14/22 19:34 04/14/22 19:34 Temperature Temperature Source Pulse Rate 60 Respiratory Rate 18 22 H Respiratory Effort Normal Short of Breath Respiratory Depth Shallow Respiratory Pattern Normal Tachypnea Blood Pressure Blood Pressure Mean Pulse Ox 100 98 Oxygen Delivery Method Nasal Cannula Nasal Cannula Oxygen Flow Rate (L/min) 4 2 04/14/22 20:43 04/14/22 20:46 Temperature 98.0 F Temperature Source Temporal Pulse Rate 60 60 Respiratory Rate 18 25 H Respiratory Effort Respiratory Depth Respiratory Pattern Blood Pressure 133/73 H 127/65 H Blood Pressure Mean 93 85 Pulse Ox 98 98 Oxygen Delivery Method Nasal Cannula Room Air Oxygen Flow Rate (L/min) 2 Positive well nourished, well developed and obese Constitutional Narrative: Patient is in no respiratory distress. She is able to talk in full sentences. General Appearance ED: well developed and pallor Nutritional Appearance: obese HEENT Reports moist mucous membranes HEENT Narrative: Ears normal. Nares patent. Uvula midline. No deviation tongue with protrusion. There is no erythema or exudate. atraumatic; Negative for tenderness Eyes PERRL and EOMs intact bilaterally General Eye ED: Yes pale conjunctiva; Negative for scleral icterus Neck no lymphadenopathy, supple and no meningeal signs Resp normal respiratory effort and No clear to auscultation bilaterally Auscultation: rales bilateral lower and wheezes expiratory wheezes and throughout Cardio regular rate, regular rhythm, S1 normal heart sound, S2 normal heart sound and no murmurs Cardio Narrative: Moderate reveals a paced rhythm. GI non-tender and non-distended Auscultation: normoactive bowel sounds Palpation: soft Back/Spine no CVA tenderness and normal to inspection Extremity normal to inspection General Extremety ED: Yes edema General Extremity: edema Neuro oriented x3, CN's II-XII intact bilaterally and no sensory deficits noted Millen Coma Scale: document GCS findings Spontaneous Obeys Commands Oriented 15 Sensorium / Orientation: alert Speech: speech normal Motor Exam: strength 5/5 throughout Psych mental status grossly normal Skin no wounds and No skin turgor normal General Skin Exam: pallor; Negative for jaundice Lesions: no lesions Rashes: no rashes and rashes noted MDM MDM MDM Narrative Medical decision making narrative: Dyspnea may be due to CHF versus COPD versus combination of the 2. Treatment was not initiated. Awaiting imaging to be reviewed to determine if this is CHF versus COPD versus pneumonia. 2 help differentiate EKG was obtained, chest x- ray, troponin, BNP. Since patient is on Coumadin PT/INR was obtained to determine if patient is therapeutic or not. If she is not therapeutic and her cardiac and pulmonary work-up are negative will need to evaluate for recurrent pulmonary embolus. Lab Data Attestation: I reviewed the patient's lab results. Lab results narrative: CBC is unremarkable. INR is therapeutic at 2.4. Basic metabolic panel reveals an elevated sodium of 146 and CO2 of 33. Troponin normal. Urine is consistent with infection. Labs: Laboratory Results - last 24 hr 04/14/22 04/14/22 04/14/22 18:20 18:20 18:20 WBC 6.8 RBC 4.19 L Hgb 11.7 L Hct 40.5 MCV 96.7 MCH 27.9 MCHC 28.9 L RDW Std Deviation 53.3 H RDW Coeff of Laura 14.8 H Plt Count 212 MPV 12.6 H Immature Gran % (Auto) 0.100 Neut % (Auto) 56.4 Lymph % (Auto) 33.0 Buchanan % (Auto) 6.9 Eos % (Auto) 2.9 Baso % (Auto) 0.7 Absolute Neuts (auto) 3.8 Absolute Lymphs (auto) 2.25 Nucleated RBC % 0 PT 25.7 H INR 2.4 Sodium 146 H Potassium 3.9 Chloride 109 H Carbon Dioxide 33.0 H Anion Gap 4 L BUN 23 H Creatinine 0.73 Estim Creat Clear Calc 43.40 Est GFR (MDRD) Af Amer 99 Est GFR (MDRD) Non-Af 82 BUN/Creatinine Ratio 31.6 H Glucose 109 H Lactic Acid Calcium 9.1 Troponin I High Sens 12 B-Natriuretic Peptide Urine Color Urine Clarity Urine pH Ur Specific Shannock Urine Protein Urine Glucose (UA) Urine Ketones Urine Occult Blood Urine Nitrite Urine Bilirubin Urine Urobilinogen Ur Leukocyte Esterase Urine RBC Urine WBC Ur Squamous Epith Cells Amorphous Sediment Urine Bacteria Urine Mucus 04/14/22 04/14/22 04/14/22 18:20 18:20 20:15 WBC RBC Hgb Hct MCV MCH MCHC RDW Std Deviation RDW Coeff of Laura Plt Count MPV Immature Gran % (Auto) Neut % (Auto) Lymph % (Auto) Buchanan % (Auto) Eos % (Auto) Baso % (Auto) Absolute Neuts (auto) Absolute Lymphs (auto) Nucleated RBC % PT INR Sodium Potassium Chloride Carbon Dioxide Anion Gap BUN Creatinine Estim Creat Clear Calc Est GFR (MDRD) Af Amer Est GFR (MDRD) Non-Af BUN/Creatinine Ratio Glucose Lactic Acid 0.7 Calcium Troponin I High Sens B-Natriuretic Peptide 181.3 H Urine Color Yellow Urine Clarity Cloudy Urine pH 7.0 Ur Specific Shannock 1.010 Urine Protein Negative Urine Glucose (UA) Normal Urine Ketones Negative Urine Occult Blood Negative Urine Nitrite Negative Urine Bilirubin Negative Urine Urobilinogen Normal Ur Leukocyte Esterase 100 H Urine RBC 0 SEEN Urine WBC 0-5 SEEN Ur Squamous Epith Cells 0 SEEN Amorphous Sediment 2+ Urine Bacteria 1+ Urine Mucus 0 SEEN Radiography Chest X-Ray - ED: 1 View, Read by ED Physician, Unchanged, Heart, Mediastinum, Bony Structures and Chronic Changes Diagnostic Testing: Clinical Impression(s) from Imaging Studies Chest X-Ray 04/14/22 18:39 IMPRESSION: There are no acute findings. Electronically Signed: Ti Lancaster MD at 18:51 EDT Reading Location ID and State: [facility] / [place] , Service support , EKG Initial EKG: Attestation: I personally reviewed and interpreted this EKG as follows: Interpretation: Paced (Ventricular rate is 65.) Discharge Plan Triage Chief Complaint: Shortness of Breath ED Provider: Damion Lizarraga Dx/Rx/DC Orders Clinical Impression: Acute exacerbation of chronic obstructive pulmonary disease, Acute bronchospasm, Cystitis Instructions: ED COPD Flare, ED Cystitis Female Adult Prescriptions: New prednisone 20 mg tablet 60 mg PO DAILY Qty: 12 0RF albuterol sulfate [Ventolin HFA] 90 mcg/actuation HFA aerosol inhaler 2 puff inhalation Q4H PRN PRN (Reason: Wheezing) Qty: 1 0RF nitrofurantoin monohyd/m-cryst [nitrofurantoin monohyd/m-cryst] 100 mg capsule 100 mg PO Q12 Qty: 10 0RF No Action lorazepam 0.5 mg tablet 0.5 mg PO QHS Biofreeze (menthol) 4 % gel 1 applic topical BID PRN (Reason: Pain) buspirone 5 mg tablet 2.5 mg PO QHS sodium phosphates 19-7 gram/118 mL enema 118 ml DE DAILY PRN (Reason: Constipation) furosemide 20 mg tablet 20 mg PO DAILY potassium chloride 20 mEq tablet extended release 20 meq PO DAILY cholecalciferol (vitamin D3) 125 mcg (5,000 unit) tablet 125 mcg PO TH citalopram 40 MG tablet 40 mg PO DAILY Label Comments: TAKE ONE TABLET BY MOUTH EVERY DAY hot flashes omeprazole 20 MG tablet,delayed release (DR/EC) 20 mg PO DAILY budesonide 0.25 mg/2 mL suspension for nebulization 0.25 mg inhalation BID sennosides-docusate sodium 1 EACH tablet 2 tab PO QHS acetazolamide 250 MG tablet 250 mg PO BID cyanocobalamin (vitamin B-12) 500 MCG tablet 500 mcg PO DAILY Lactobacillus acidophilus 1 EACH capsule 1 cap PO DAILY albuterol sulfate 2.5 MG/3 ML solution for nebulization 2.5 mg INHALATION Q2H PRN PRN (Reason: Shortness of Breath/Wheezing) 0RF docusate sodium 100 MG capsule 100 mg PO BID 0RF ipratropium-albuterol 0.5 mg-3 mg(2.5 mg base)/3 mL Solution For Nebulization 3 ml inhalation TID Qty: 0 0RF warfarin [Coumadin] 4 mg Tablet 6 mg PO TUTH acetaminophen 325 MG tablet 650 mg PO TID warfarin [Coumadin] 5 mg Tablet 5 mg PO SUMOWEFRSA ondansetron HCl 4 mg Tablet 4 mg PO Q4H PRN (Reason: Nausea) bisacodyl [Dulcolax (bisacodyl)] 10 mg Suppository 10 mg DE DAILY PRN (Reason: Constipation) PreserVision AREDS-2 250-90-40-1 mg Capsule 1 tab PO BID magnesium hydroxide [Milk of Magnesia] 400 mg/5 mL suspension 30 ml PO DAILY PRN (Reason: Constipation) guaifenesin [Tussin] 100 mg/5 mL Liquid 200 mg PO Q6H PRN (Reason: Cough) acetaminophen 500 mg Capsule 1,000 mg PO Q8H PRN (Reason: Pain) menthol 4 % Cream 1 applic TOPICAL Q2H PRN PRN (Reason: Pain) Hemorrhoidal (phenyleph-fat) 0.25-88.7 % Suppository 1 supp DE Q6H PRN PRN (Reason: Hemorrhoids) Primary Care Provider: Tor Lucia Referrals: Tor Lucia MD [Primary Care Provider] - Disposition Disposition: Home, Self Care
[2022-04-14 18:46] LABS: Absolute Lymphocyte Count 2.25 X10^3/uL (0.83-4.51); Absolute Neutrophil Count 3.8 X10^3/uL (2.0-7.7); Basophil# 0.05 X10^3/uL; Basophil% 0.7 % (0-1); Eosinophils% 2.9 % (0-5); Hematocrit 40.5 % (37-47); Hemoglobin 11.7 g/dL (12.0-15.0); Lymphocyte # 2.25 X10^3/ul (0.83-4.51); Mean Corp Hgb Conc 28.9 g/dL (32-36); Mean Corpuscular Hgb 27.9 pg (27.0-32.0); Mean Corpuscular Volume 96.7 fL (81-99); Mean Platelet Vol. 12.6 fl (6.2-12.0); Monocyte# 0.47 X10^3/uL; Monocyte% 6.9 % (0-10); NRBC Flagged by Analyzer 0 % (0-5); Neutrophil # 3.84 X10^3/uL (2.7-7.7); Neutrophil % 56.4 % (47-70); Platelet Count 212 K/mm3 (150-450); RBC Distribution Width CV 14.8 % (11.6-14.6); RBC Distribution Width SD 53.3 fl (35.1-43.9); Red Blood Count 4.19 M/mm3 (4.2-5.4); White Blood Count 6.8 K/mm3 (4.4-11.0)
[2022-04-14 18:58] LABS: International Normalized Ratio 2.4; Prothrombin Time (Protime)PT. 25.7 SECONDS (11.7-14.9)
[2022-04-14 19:04] LABS: Anion Gap 4 (5-15); BNP,B-Type NATRIURETIC PEPTIDE 181.3 pg/mL (0-100); BUN 23 mg/dL (7-18); BUN/Creat Ratio 31.6 RATIO (10-20); Calcium,Total 9.1 mg/dL (8.5-10.1); Chloride 109 mmol/L (98-107); Creatinine, Serum 0.73 mg/dL (0.55-1.02); EST Glomerular Filtration Rate 82 mL/min (>60); Est Glom Filt Rate - Afr Amer 99 mL/min (>60); Glucose 109 mg/dL (74-106); Potassium 3.9 mmol/L (3.5-5.1); Sodium Level 146 mmol/L (136-145); Troponin-I HS 12 pg/mL (3.0-54.0)
[2022-04-14 19:13] LABS: Lactic Acid 0.7 mmol/L (0.4-1.9)
[2022-04-14] MEDS: MethylPREDNISolone 125 MG/2 ML Vial IV (19:28)
[2022-04-14] MEDS: Ipratropium/Albuterol Sulfate 3 ML AMPUL.NEB INHALATION (19:34)
[2022-04-14] MEDS: Albuterol 2.5 MG/3 ML VIAL.NEB. INHALATION (20:19)
[2022-04-14 20:22] LABS: Mucous, Urine 0 SEEN /hpf (<or=2+); Red Blood Cells-Urine 0 SEEN /hpf (0-5); Squamous Epithelial Cells - UA 0 SEEN /hpf (5-10)
[2022-04-14 20:25] LABS: Color, Urine Yellow (Yellow); Glucose, Dipstick Normal (Normal); Ketone-Dipstick Negative (Negative); Leukocyte Esterase-Dipstick 100 /ul (Negative); Nitrite-Dipstick Negative (Negative); Occult Blood-Urine Negative /ul (Negative); Protein-Dipstick Negative (Negative); Urine Bilirubin Dipstick Negative (Negative); Urine Clarity Cloudy (Clear); Urine Urobilinogen Normal (Normal)
[2022-04-14 20:38] LABS: Amorphous Sediment 2+; Bacteria 1+ /hpf (None Seen); White Blood Cells 0-5 SEEN /hpf (0-5)
--- NOTE | 2022-04-14 20:47 | CPS ---
x1 Albuterol given to pt. in ER as well. Pt. politely refused additional x2 Albuterol tx.'s at this time. Pt. will call out if she feels like she needs another Albuterol breathing tx.
== END 2022-04-14 22:55 | disposition home or self-care (01) ==
PROVIDERS: Emergency Provider Emergency Medicine; PCP Family Medicine; Visit Provider Emergency Medicine
DX: J44.1 Chronic obstructive pulmonary disease with (acute) exacerbation (principal); I11.0 Hypertensive heart disease with heart failure; I50.32 Chronic diastolic (congestive) heart failure; I48.0 Paroxysmal atrial fibrillation; J98.01 Acute bronchospasm; N30.90 Cystitis, unspecified without hematuria; E78.5 Hyperlipidemia, unspecified; Z95.0 Presence of cardiac pacemaker; Z99.81 Dependence on supplemental oxygen; Z79.01 Long term (current) use of anticoagulants; Z79.899 Other long term (current) drug therapy; Z86.711 Personal history of pulmonary embolism; Z86.718 Personal history of other venous thrombosis and embolism; Z87.891 Personal history of nicotine dependence
CPT/HCPCS: 71045; 80048; 81001; 83605; 83880; 84484; 85025; 85610; 93005; 94640; 96374; 99251; 99285; A4216; G0463

== ENCOUNTER 2022-06-08 10:48 | Emergency (ER) | payer MEDICARE, SELFPAY ==
[2022-06-08 10:50] VITALS: BP 155/66; PULSE 4; RESP 15; TEMP 36.4; O2SAT 95; BMI 27.4
[2022-06-08 10:54] VITALS: BP 155/66; PULSE 60; RESP 15; TEMP 36.4; O2SAT 95
--- NOTE | 2022-06-08 11:13 | ED.VIS.FEGU ---
HPI HPI - Female History of Present Illness Chief Complaint: Complaint Narrative Narrative: 76-year-old female presenting with dysuria and urinary frequency. She states this started last night. She has a history of UTI in the past. She does not have any nausea or vomiting. She has not any fevers or chills. Patient does report that she felt as if she was wheezing last night. She does have home nebulizers but states she could not get any pred[facility]one [facility] because it had to be ordered. She was also told they cannot check a urinalysis there. They referred her to the ER to have this done. [facility] Medical History Atrial fibrillation AV block, complete BiPAP (biphasic positive airway pressure) dependence COPD (chronic obstructive pulmonary disease) Dyslipidemia Essential hypertension Essential hypertension Former tobacco use Heart failure with preserved ejection fraction History of DVT (deep vein thrombosis) History of pulmonary embolus (PE) Presence of permanent cardiac pacemaker (~10/12/20) Pulmonary HTN Sleep apnea Tachycardia-bradycardia syndrome Venous insufficiency Home Medications citalopram 40 mg tablet 40 mg PO DAILY DEPRESSION 05/23/18 [History Last Taken 09/01/20 10:44] omeprazole 20 mg tablet,delayed release 20 mg PO DAILY GERD 01/17/19 [History Last Taken 09/01/20 10:44] sennosides 8.6 mg-docusate sodium 50 mg tablet 2 tab PO QHS CONSTIPATION 08/22/19 [History Last Taken 08/31/20 20:26] Lactobacillus acidophilus 1 cap PO DAILY IMMUNE HEALTH 08/20/20 [History Last Taken 09/01/20 10:42] acetazolamide 250 mg tablet 250 mg PO BID EDEMA 08/20/20 [History Last Taken 09/01/20 08:00] cyanocobalamin (vitamin B-12) 500 mcg tablet 500 mcg PO DAILY SUPPLEMENT 08/20/20 [History Last Taken 09/01/20 10:44] albuterol sulfate 2.5 mg/3 mL (0.083 %) solution for nebulization 2.5 mg (3 mL) inhalation Q2H PRN PRN Shortness of Breath/Wheezing 09/05/20 [Rx Last Taken Unknown] docusate sodium 100 mg capsule 100 mg PO BID 09/05/20 [Rx Last Taken Unknown] lorazepam 0.5 mg tablet 0.5 mg PO QHS ANXIETY 10/28/20 [History Last Taken Unknown] ipratropium 0.5 mg-albuterol 3 mg (2.5 mg base)/3 mL nebulization soln 3 ml inhalation TID #0 mL 05/26/21 [Rx Last Taken Unknown] acetaminophen 325 mg tablet 650 mg PO TID 07/14/21 [History Last Taken Unknown] bisacodyl 10 mg rectal suppository (Dulcolax (bisacodyl)) 10 mg AR DAILY PRN Constipation 07/14/21 [History Last Taken Unknown] ondansetron HCl 4 mg tablet 4 mg PO Q4H PRN Nausea 07/14/21 [History Last Taken Unknown] vit C 250 mg-vit E 90 mg-zinc 40 mg-copper 1 [id number] capsule (PreserVision AREDS-2) 1 tab PO BID 07/14/21 [History Last Taken Unknown] warfarin 4 mg tablet 6 mg PO TUTH 07/14/21 [History Last Taken Unknown] warfarin 5 mg tablet 5 mg PO SUMOWEFRSA 07/14/21 [History Last Taken Unknown] budesonide 0.25 mg/2 mL suspension for nebulization 0.25 mg inhalation BID COPD 01/14/22 [History Last Taken Unknown] buspirone 5 mg tablet 2.5 mg PO QHS 01/14/22 [History Last Taken Unknown] cholecalciferol (vitamin D3) 125 mcg (5,000 unit) tablet 125 mcg PO TH 01/14/22 [History Last Taken Unknown] furosemide 20 mg tablet 20 mg PO DAILY 01/14/22 [History Last Taken Unknown] magnesium hydroxide 400 mg/5 mL oral suspension (Milk of Magnesia) 30 ml PO DAILY PRN Constipation 01/14/22 [History Last Taken Unknown] menthol 4 % topical gel (Biofreeze (menthol)) 1 applic topical BID PRN Pain 01/14/22 [History Last Taken Unknown] potassium chloride 20 mEq tablet,extended release 20 meq PO DAILY 01/14/22 [History Last Taken Unknown] sodium phosphates 19 gram-7 gram/118 mL enema 118 ml AR DAILY PRN Constipation 01/14/22 [History Last Taken Unknown] acetaminophen 500 mg capsule 1,000 mg PO Q8H PRN Pain 04/14/22 [History Last Taken Unknown] albuterol sulfate 90 mcg/actuation aerosol inhaler (Ventolin HFA) 2 puff inhalation Q4H PRN PRN Wheezing ##1 04/14/22 [Rx Last Taken Unknown] guaifenesin 100 mg/5 mL oral liquid (Tussin) 200 mg PO Q6H PRN Cough 04/14/22 [History Last Taken Unknown] menthol 4 % topical cream 1 applic topical Q2H PRN PRN Pain 04/14/22 [History Last Taken Unknown] nitrofurantoin monohydrate/macrocrystals 100 mg capsule 100 mg PO Q12 #10 CAPSULES 04/14/22 [Rx Last Taken Unknown] phenylephrine 0.25 %-hard fat 88.7 % rectal suppository (Hemorrhoidal (phenylephrine-hard fat)) 1 supp AR Q6H PRN PRN Hemorrhoids 04/14/22 [History Last Taken Unknown] prednisone 20 mg tablet 60 mg PO DAILY #12 TABLETS 04/14/22 [Rx Last Taken Unknown] prednisone 10 mg tablet 50 mg PO DAILY 5 days #25 tabs 06/08/22 [Rx Last Taken Unknown] Allergy/AdvReac Type Severity Reaction Status Date / Time amlodipine besylate AdvReac ANKLE AND Verified 05/02/22 13:21 [From [facility]] LEG EDEMA codeine AdvReac MENTAL Verified 05/02/22 13:21 STATUS CHANGE lisinopril AdvReac COUGH Verified 05/02/22 13:21 Family History Sister Heart disease Surgical History History of cholecystectomy History of total hysterectomy Hx of atrioventricular node ablation tailbone surgery Social History household members: none housing: detention Smoking Status: Former smoker how long ago did patient quit smoking: Approxiomately 2003 alcohol intake: never substance use type: does not use caffeine: No ROS ROS ED Review of Systems ROS Unobtainable: Denies due to encephalopathy Constitutional Constitutional ED: Denies chills or fever(s) Eyes Eyes: Denies change in vision or diplopia ENT ENT ED: Denies rhinorrhea or sore throat Cardiovascular Cardiovascular: Denies chest pain or palpitations Respiratory/Chest Respiratory/Chest: Reports dyspnea; Denies cough Gastrointestinal Gastrointestinal: Denies abdominal pain, nausea or vomiting Genitourinary Genitourinary ED: Reports dysuria, hematuria and urinary frequency Musculoskeletal Musculoskeletal: Denies arthralgias or myalgias Integumentary Denies abscess or Abrasions Neurologic Neurologic: Denies headache(s) Psychiatric Psychiatric: Denies anxiety or depression EXAM Physical Exam Const Vital Signs: 06/08/22 10:50 06/08/22 10:54 06/08/22 11:21 Temperature 97.6 F L 97.6 F L Temperature Source Temporal Temporal Pulse Rate 4 L 60 60 Respiratory Rate 15 15 18 Respiratory Pattern Normal Blood Pressure 155/66 H 155/66 H Blood Pressure Mean 95 95 Pulse Ox 95 95 Oxygen Delivery Method Nasal Cannula Nasal Cannula Oxygen Flow Rate (L/min) 2 06/08/22 13:06 Temperature Temperature Source Pulse Rate 60 Respiratory Rate 20 H Respiratory Pattern Blood Pressure Blood Pressure Mean Pulse Ox 99 Oxygen Delivery Method Nasal Cannula Oxygen Flow Rate (L/min) 2 Positive well nourished General Appearance ED: NAD; Negative for pallor HEENT Reports moist mucous membranes Eyes PERRL and EOMs intact bilaterally Neck no lymphadenopathy Chest Wall inspection of chest normal Resp normal respiratory effort and clear to auscultation bilaterally Auscultation: Negative for rales, rhonchi or wheezes Cardio regular rate and regular rhythm GI normal to inspection, nondistended, normoactive bowel sounds Back/Spine no CVA tenderness Neuro oriented x3 and CN's II-XII intact bilaterally Sensorium / Orientation: alert Psych mental status grossly normal Skin no rashes or lesions noted General Skin Exam: Negative for jaundice or pallor MDM MDM MDM Narrative Medical decision making narrative: Patient presenting with dysuria and hematuria. Urinalysis today does not show any infection. There is some occult blood. Patient reports no history of kidney stones. I did obtain a CT of the abdomen pelvis without contrast which shows a right nonobstructing renal calculus. There is concern on the CT for possible cystitis however urinalysis is negative. Patient did request breathing treatment and steroids that she is wheezing. She was given these and she feels improved. I do not believe she needs any other imaging. She feels well at this point she will be discharged home with a prednisone burst. Impression: 1. COPD exacerbation 2. Hematuria 3. Dysuria Lab Data Attestation: I reviewed the patient's lab results. Labs: Laboratory Results - last 24 hr 06/08/22 12:02 Urine Color Yellow Urine Clarity Sl. Cloudy Urine pH 6.0 Ur Specific Gray 1.015 Urine Protein Negative Urine Glucose (UA) Normal Urine Ketones Negative Urine Occult Blood 150 H Urine Nitrite Negative Urine Bilirubin Negative Urine Urobilinogen Normal Ur Leukocyte Esterase 25 H Urine RBC 10-25 SEEN Urine WBC 0-5 SEEN Ur Squamous Epith Cells 0 SEEN Urine Bacteria 1+ Urine Mucus 0 SEEN Radiography Diagnostic Testing: Clinical Impression(s) from Imaging Studies Abdomen/Pelvis CT 06/08/22 12:45 IMPRESSION: Small nonobstructing right renal calculus. Possible mild cystitis. Colonic diverticulosis without acute diverticulitis. Electronically Signed: Elizabeth Jarvis MD at 13:25 EST Reading Location ID and State: [facility] / [place] Tel , Service support , Discharge Plan Triage Chief Complaint: Complaint ED Provider: Lonnie Pina Dx/Rx/DC Orders Instructions: Dysuria, ED COPD Flare, ED Hematuria Prescriptions: New prednisone 10 mg tablet 50 mg PO DAILY 5 Days Qty: 25 0RF No Action lorazepam 0.5 mg tablet 0.5 mg PO QHS Biofreeze (menthol) 4 % gel 1 applic topical BID PRN (Reason: Pain) buspirone 5 mg tablet 2.5 mg PO QHS sodium phosphates 19-7 gram/118 mL enema 118 ml AR DAILY PRN (Reason: Constipation) furosemide 20 mg tablet 20 mg PO DAILY potassium chloride 20 mEq tablet extended release 20 meq PO DAILY cholecalciferol (vitamin D3) 125 mcg (5,000 unit) tablet 125 mcg PO TH citalopram 40 MG tablet 40 mg PO DAILY Label Comments: TAKE ONE TABLET BY MOUTH EVERY DAY hot flashes omeprazole 20 MG tablet,delayed release (DR/EC) 20 mg PO DAILY budesonide 0.25 mg/2 mL suspension for nebulization 0.25 mg inhalation BID sennosides-docusate sodium 1 EACH tablet 2 tab PO QHS acetazolamide 250 MG tablet 250 mg PO BID cyanocobalamin (vitamin B-12) 500 MCG tablet 500 mcg PO DAILY Lactobacillus acidophilus 1 EACH capsule 1 cap PO DAILY albuterol sulfate 2.5 MG/3 ML solution for nebulization 2.5 mg INHALATION Q2H PRN PRN (Reason: Shortness of Breath/Wheezing) 0RF docusate sodium 100 MG capsule 100 mg PO BID 0RF ipratropium-albuterol 0.5 mg-3 mg(2.5 mg base)/3 mL Solution For Nebulization 3 ml inhalation TID Qty: 0 0RF warfarin [Coumadin] 4 mg Tablet 6 mg PO TUTH acetaminophen 325 MG tablet 650 mg PO TID warfarin [Coumadin] 5 mg Tablet 5 mg PO SUMOWEFRSA ondansetron HCl 4 mg Tablet 4 mg PO Q4H PRN (Reason: Nausea) bisacodyl [Dulcolax (bisacodyl)] 10 mg Suppository 10 mg AR DAILY PRN (Reason: Constipation) PreserVision AREDS-2 250-90-40-1 mg Capsule 1 tab PO BID magnesium hydroxide [Milk of Magnesia] 400 mg/5 mL suspension 30 ml PO DAILY PRN (Reason: Constipation) guaifenesin [Tussin] 100 mg/5 mL Liquid 200 mg PO Q6H PRN (Reason: Cough) acetaminophen 500 mg Capsule 1,000 mg PO Q8H PRN (Reason: Pain) menthol 4 % Cream 1 applic TOPICAL Q2H PRN PRN (Reason: Pain) Hemorrhoidal (phenyleph-fat) 0.25-88.7 % Suppository 1 supp AR Q6H PRN PRN (Reason: Hemorrhoids) prednisone 20 mg tablet 60 mg PO DAILY Qty: 12 0RF albuterol sulfate [Ventolin HFA] 90 mcg/actuation HFA aerosol inhaler 2 puff inhalation Q4H PRN PRN (Reason: Wheezing) Qty: 1 0RF nitrofurantoin monohyd/m-cryst [nitrofurantoin monohyd/m-cryst] 100 mg capsule 100 mg PO Q12 Qty: 10 0RF Primary Care Provider: Tor Lucia Referrals: Tor Lucia MD [Primary Care Provider] - Disposition Disposition: Home, Self Care
[2022-06-08] MEDS: predniSONE 20 MG Tablet 60 MG PO (11:18)
[2022-06-08 11:21] VITALS: PULSE 60; RESP 18
[2022-06-08] MEDS: Ipratropium/Albuterol Sulfate 3 ML AMPUL.NEB INHALATION (11:21)
[2022-06-08 12:07] LABS: Mucous, Urine 0 SEEN /hpf (<or=2+); Squamous Epithelial Cells - UA 0 SEEN /hpf (5-10)
[2022-06-08 12:13] LABS: Color, Urine Yellow (Yellow); Glucose, Dipstick Normal (Normal); Ketone-Dipstick Negative (Negative); Leukocyte Esterase-Dipstick 25 /ul (Negative); Nitrite-Dipstick Negative (Negative); Occult Blood-Urine 150 /ul (Negative); Protein-Dipstick Negative (Negative); Specific Gravity, Urine 1.015 (1.002-1.030); Urine Bilirubin Dipstick Negative (Negative); Urine Clarity Sl. Cloudy (Clear); Urine Urobilinogen Normal (Normal)
[2022-06-08 12:21] LABS: Bacteria 1+ /hpf (None Seen); Red Blood Cells-Urine 10-25 SEEN /hpf (0-5); White Blood Cells 0-5 SEEN /hpf (0-5)
--- NOTE | 2022-06-08 12:45 | CT_ITS ---
HISTORY: flank pain. TECHNIQUE: Helically acquired images were obtained of the abdomen and pelvis without oral or IV contrast. A radiation dose optimization technique was used for this scan. 450 images. COMPARISON: 09/01/2020. FINDINGS: LOWER CHEST: Cardiomegaly with pacemaker. Chronic bronchiectasis with scarring in the middle lobes. Stable 3 mm right lower lobe nodule. Chronic elevation of the left hemidiaphragm. BOWEL: Mild hiatal hernia. Bowel including appendix nondilated. Colonic diverticulosis without focal pericolonic inflammatory change. PERITONEUM: No significant free fluid. LIVER/SPLEEN: Nonenlarged. GALLBLADDER/BILIARY TREE: Gallbladder absent. KIDNEYS AND URETERS: 2 mm right upper pole calculus without hydronephrosis. No left nephrolithiasis or hydronephrosis. PANCREAS/ADRENAL GLANDS: Unremarkable. VESSELS: No abdominal aortic aneurysm. Atherosclerosis of the abdominal aorta and its major branches. PELVIC ORGANS: Absent uterus. Trace perivesical stranding. BONES: Chronic T11, L1, and L5 compression fractures. Degenerative change and mild scoliosis. Stable small enchondroma in the left intertrochanteric femur. CT/Abdomen/Pelvis without Cont IMPRESSION: Small nonobstructing right renal calculus. Possible mild cystitis. Colonic diverticulosis without acute diverticulitis. Electronically Signed: Elizabeth Jarvis MD at 13:25 EST ,
[2022-06-08 13:06] VITALS: PULSE 60; RESP 20; O2SAT 99
[2022-06-08 15:08] VITALS: BP 142/89; PULSE 59
== END 2022-06-08 15:08 | disposition home or self-care (01) ==
PROVIDERS: Emergency Provider Student in an Organized Health Care Education/Training Program; PCP Family Medicine; Visit Provider Student in an Organized Health Care Education/Training Program
DX: R30.0 Dysuria (principal); J44.1 Chronic obstructive pulmonary disease with (acute) exacerbation; I11.0 Hypertensive heart disease with heart failure; I50.30 Unspecified diastolic (congestive) heart failure; E78.5 Hyperlipidemia, unspecified; N20.0 Calculus of kidney; R06.00 Dyspnea, unspecified; R35.0 Frequency of micturition; R31.9 Hematuria, unspecified; Z79.52 Long term (current) use of systemic steroids; Z87.891 Personal history of nicotine dependence
CPT/HCPCS: 74176; 81001; 94640; 99284

== ENCOUNTER 2022-07-08 21:59 | Inpatient (IN) | payer MEDICARE, MEDICAID, SELFPAY ==
[2022-07-08] VITALS (8 sets, daily range): BP systolic 143–210; BP diastolic 70–156; PULSE 50–80; RESP 12–42; TEMP 36.9–37; O2SAT 92–96; BMI 26.7
[2022-07-08] MEDS: Nitroglycerin SL (ED/IMG/CATH) 0.4 MG TABLET SL (22:21)
[2022-07-08] MEDS: Ondansetron 4 MG/2 ML Vial IV (22:22)
[2022-07-08 22:30] LABS: Bedside Glucose 112 mg/dL (74-106)
[2022-07-08] MEDS: MethylPREDNISolone 125 MG/2 ML Vial IV (22:32)
[2022-07-08] MEDS: Ipratropium/Albuterol Sulfate 3 ML AMPUL.NEB INHALATION (22:33)
--- NOTE | 2022-07-08 22:40 | RAD_ITS ---
STUDY: X-RAY CHEST REASON FOR EXAM: Female, 76 years old. dyspnea TECHNIQUE: Single AP portable view of the chest. COMPARISON: 04/14/2022 FINDINGS: Left subclavian pacemaker which is unchanged. The lungs are clear and expanded. Elevated left hemidiaphragm which is unchanged. There is moderate cardiac enlargement. Normal mediastinum and betty. Normal visualized pulmonary arteries. Normal visualized aortic arch and descending thoracic aorta. Normal visualized thoracic spine. Normal visualized ribs, clavicles, and shoulders. There is no demonstrated abnormality of the visualized soft tissue structures of the upper abdomen. RAD/Chest 1 View (Portable) IMPRESSION: No active disease. Electronically Signed: Dallas Martinez MD at 22:59 EST ,
[2022-07-08 22:58] LABS: International Normalized Ratio 2.6; Prothrombin Time (Protime)PT. 27.9 SECONDS (11.7-14.9)
[2022-07-08 22:59] LABS: Partial Thromboplast Time 40.9 Seconds (24.1-36.2)
[2022-07-08 23:08] LABS: Absolute Lymphocyte Count 2.98 X10^3/uL (0.83-4.51); Basophil# 0.04 X10^3/uL; Basophil% 0.5 % (0-1); Eosinophil# 0.39 X10^3/uL; Eosinophils% 4.6 % (0-5); Hematocrit 44.2 % (37-47); Hemoglobin 12.6 g/dL (12.0-15.0); Lymphocyte # 2.98 X10^3/ul (0.83-4.51); Lymphocyte % 35.3 % (19-41); Mean Corp Hgb Conc 28.5 g/dL (32-36); Mean Corpuscular Hgb 28.4 pg (27.0-32.0); Mean Corpuscular Volume 99.5 fL (81-99); Mean Platelet Vol. 12.9 fl (6.2-12.0); Monocyte# 0.95 X10^3/uL; Monocyte% 11.3 % (0-10); NRBC Flagged by Analyzer 0 % (0-5); Neutrophil # 4.01 X10^3/uL (2.7-7.7); Neutrophil % 47.6 % (47-70); Platelet Count 253 K/mm3 (150-450); RBC Distribution Width CV 14.6 % (11.6-14.6); Red Blood Count 4.44 M/mm3 (4.2-5.4); White Blood Count 8.4 K/mm3 (4.4-11.0)
[2022-07-08 23:23] LABS: Anion Gap 3 (5-15); BUN 19 mg/dL (7-18); BUN/Creat Ratio 26.5 RATIO (10-20); Calcium,Total 8.6 mg/dL (8.5-10.1); Chloride 109 mmol/L (98-107); Creatinine, Serum 0.72 mg/dL (0.55-1.02); EST Glomerular Filtration Rate 84 mL/min (>60); Est Glom Filt Rate - Afr Amer 101 mL/min (>60); Glucose 107 mg/dL (74-106); Magnesium 2.3 mg/dL (1.6-2.6); Potassium 4.3 mmol/L (3.5-5.1); Sodium Level 141 mmol/L (136-145); Troponin-I HS 22 pg/mL (3.0-54.0)
[2022-07-08 23:35] LABS: BNP,B-Type NATRIURETIC PEPTIDE 186.3 pg/mL (0-100)
[2022-07-09] VITALS (23 sets, daily range): BP systolic 110–155; BP diastolic 62–92; PULSE 59–64; RESP 12–32; TEMP 36.7–37.2; O2SAT 91–100; BMI 25.1
[2022-07-09 00:43] LABS: Troponin-I HS 65 pg/mL (3.0-54.0)
[2022-07-09] MEDS: Albuterol 2.5 MG/3 ML VIAL.NEB. INHALATION ×2 (01:07→04:05)
--- NOTE | 2022-07-09 01:16 | EX.ED.DYSGE1 ---
HPI History of Present Illness Chief Complaint: Shortness of Breath Narrative Narrative: Patient is a 76-year-old female from [facility] who is a DNR Comfort Care arrest. She has past medical history of atrial fibrillation currently on Coumadin and previous pacemaker placement secondary to this. She also has history of hypertension hyperlipidemia and congestive heart failure and COPD. She does wear oxygen at baseline. She states that today she felt like despite wearing her oxygen and doing breathing treatments that there was no improvement of her symptoms and that they continue to worsen and secondary to this was sent to the hospital for evaluation. [facility] Medical History Atrial fibrillation AV block, complete BiPAP (biphasic positive airway pressure) dependence COPD (chronic obstructive pulmonary disease) Dyslipidemia Essential hypertension Essential hypertension Former tobacco use Heart failure with preserved ejection fraction History of DVT (deep vein thrombosis) History of pulmonary embolus (PE) Presence of permanent cardiac pacemaker (~10/12/20) Pulmonary HTN Sleep apnea Tachycardia-bradycardia syndrome Venous insufficiency Home Medications citalopram 40 mg tablet 20 mg PO DAILY DEPRESSION 05/23/18 [History Last Taken 09/01/20 10:44] omeprazole 20 mg tablet,delayed release 20 mg PO DAILY GERD 01/17/19 [History Last Taken 09/01/20 10:44] sennosides 8.6 mg-docusate sodium 50 mg tablet 2 tab PO QHS CONSTIPATION 08/22/19 [History Last Taken 08/31/20 20:26] Lactobacillus acidophilus 1 cap PO DAILY IMMUNE [facility] 08/20/20 [History Last Taken 09/01/20 10:42] acetazolamide 250 mg tablet 250 mg PO BID EDEMA 08/20/20 [History Last Taken 09/01/20 08:00] cyanocobalamin (vitamin B-12) 500 mcg tablet 500 mcg PO DAILY SUPPLEMENT 08/20/20 [History Last Taken 09/01/20 10:44] albuterol sulfate 2.5 mg/3 mL (0.083 %) solution for nebulization 2.5 mg (3 mL) inhalation Q2H PRN PRN Shortness of Breath/Wheezing 09/05/20 [Rx Last Taken Unknown] docusate sodium 100 mg capsule 100 mg PO BID 09/05/20 [Rx Last Taken Unknown] lorazepam 0.5 mg tablet 0.5 mg PO QHS ANXIETY 10/28/20 [History Last Taken Unknown] ipratropium 0.5 mg-albuterol 3 mg (2.5 mg base)/3 mL nebulization soln 3 ml inhalation TID #0 mL 05/26/21 [Rx Last Taken Unknown] acetaminophen 325 mg tablet 650 mg PO TID 07/14/21 [History Last Taken Unknown] bisacodyl 10 mg rectal suppository (Dulcolax (bisacodyl)) 10 mg [place] DAILY PRN Constipation 07/14/21 [History Last Taken Unknown] ondansetron HCl 4 mg tablet 4 mg PO Q4H PRN Nausea 07/14/21 [History Last Taken Unknown] vit C 250 mg-vit E 90 mg-zinc 40 mg-copper 1 [id number] capsule (PreserVision AREDS-2) 1 tab PO BID 07/14/21 [History Last Taken Unknown] warfarin 4 mg tablet See Rx Instructions .Route .COMPLEX 07/14/21 [History Last Taken Unknown] warfarin 5 mg tablet See Rx Instructions .Route .COMPLEX 07/14/21 [History Last Taken Unknown] budesonide 0.25 mg/2 mL suspension for nebulization 0.25 mg inhalation BID COPD 01/14/22 [History Last Taken Unknown] buspirone 5 mg tablet 2.5 mg PO QHS 01/14/22 [History Last Taken Unknown] cholecalciferol (vitamin D3) 125 mcg (5,000 unit) tablet 125 mcg PO TH 01/14/22 [History Last Taken Unknown] furosemide 20 mg tablet 20 mg PO DAILY 01/14/22 [History Last Taken Unknown] magnesium hydroxide 400 mg/5 mL oral suspension (Milk of Magnesia) 30 ml PO DAILY PRN Constipation 01/14/22 [History Last Taken Unknown] menthol 4 % topical gel (Biofreeze (menthol)) 1 applic topical BID PRN Pain 01/14/22 [History Last Taken Unknown] potassium chloride 20 mEq tablet,extended release 20 meq PO DAILY 01/14/22 [History Last Taken Unknown] sodium phosphates 19 gram-7 gram/118 mL enema 118 ml [place] DAILY PRN Constipation 01/14/22 [History Last Taken Unknown] acetaminophen 500 mg capsule 1,000 mg PO Q8H PRN Pain 04/14/22 [History Last Taken Unknown] albuterol sulfate 90 mcg/actuation aerosol inhaler (Ventolin HFA) 2 puff inhalation Q4H PRN PRN Wheezing ##1 04/14/22 [Rx Last Taken Unknown] guaifenesin 100 mg/5 mL oral liquid (Tussin) 200 mg PO Q6H PRN Cough 04/14/22 [History Last Taken Unknown] menthol 4 % topical cream 1 applic topical Q2H PRN PRN Pain 04/14/22 [History Last Taken Unknown] phenylephrine 0.25 %-hard fat 88.7 % rectal suppository (Hemorrhoidal (phenylephrine-hard fat)) 1 supp [place] Q6H PRN PRN Hemorrhoids 04/14/22 [History Last Taken Unknown] Allergy/AdvReac Type Severity Reaction Status Date / Time amlodipine besylate AdvReac ANKLE AND Verified 07/08/22 22:00 [From [facility]] LEG EDEMA codeine AdvReac MENTAL Verified 07/08/22 22:00 STATUS CHANGE lisinopril AdvReac COUGH Verified 07/08/22 22:00 Family History Sister Heart disease Surgical History History of cholecystectomy History of total hysterectomy Hx of atrioventricular node ablation tailbone surgery Social History household members: none housing: [facility] Smoking Status: Former smoker how long ago did patient quit smoking: Approxiomately 2003 alcohol intake: never substance use type: does not use caffeine: No ROS ROS ED Constitutional Constitutional ED: Denies chills or fever(s) ENT ENT ED: Denies rhinorrhea or sore throat Cardiovascular Cardiovascular: Denies chest pain Respiratory/Chest Respiratory/Chest: Reports cough and dyspnea Gastrointestinal Gastrointestinal: Denies abdominal pain, diarrhea, nausea or vomiting Genitourinary Genitourinary ED: Denies dysuria Musculoskeletal Musculoskeletal: Denies back pain or myalgias Integumentary Denies rash Neurologic Neurologic: Denies headache(s) Hematologic/Lymphatic Hematologic/Lymphatic: Reports easy bleeding and easy bruising EXAM Physical Exam Const Vital Signs: 07/08/22 22:01 07/08/22 22:08 07/08/22 22:06 Temperature 98.5 F 98.5 F Temperature Source Temporal Temporal Pulse Rate 80 50 L Respiratory Rate 42 H 42 H Respiratory Effort Short of Breath Labored Respiratory Depth Shallow Respiratory Pattern Tachypnea Blood Pressure 210/156 H 210/156 H Blood Pressure Mean 174 174 Pulse Ox 96 96 Oxygen Delivery Method Room Air Nasal Cannula Nasal Cannula Fraction of Inspired Oxygen (FIO2) 07/08/22 22:21 07/08/22 22:25 07/08/22 22:33 Temperature Temperature Source Pulse Rate 55 L 60 60 Respiratory Rate 36 H 30 H Respiratory Effort Respiratory Depth Respiratory Pattern Tachypnea Tachypnea Blood Pressure 210/156 H Blood Pressure Mean Pulse Ox 92 Oxygen Delivery Method Fraction of Inspired Oxygen (FIO2) 30 07/08/22 22:33 07/08/22 23:00 07/08/22 23:06 Temperature 98.6 F Temperature Source Temporal Pulse Rate 60 60 Respiratory Rate 36 H 20 H 21 H Respiratory Effort Short of Breath Labored Accessory Muscle Use Respiratory Depth Shallow Respiratory Pattern Tachypnea Blood Pressure 143/70 H 143/70 H Blood Pressure Mean 94 94 Pulse Ox 92 94 94 Oxygen Delivery Method Bi-pap Bi-pap Bi-pap Fraction of Inspired Oxygen (FIO2) 30 07/09/22 00:03 07/09/22 00:00 07/09/22 00:59 Temperature Temperature Source Pulse Rate 60 60 60 Respiratory Rate 26 H 26 H 24 H Respiratory Effort Respiratory Depth Respiratory Pattern Tachypnea Blood Pressure 152/78 H 138/70 H Blood Pressure Mean 102 92 Pulse Ox 95 96 95 Oxygen Delivery Method Bi-pap Bi-pap Fraction of Inspired Oxygen (FIO2) 30 30 30 07/09/22 01:07 Temperature Temperature Source Pulse Rate 60 Respiratory Rate 24 H Respiratory Effort Respiratory Depth Respiratory Pattern Tachypnea Blood Pressure Blood Pressure Mean Pulse Ox Oxygen Delivery Method Fraction of Inspired Oxygen (FIO2) Positive well nourished and well developed General Appearance ED: well developed HEENT HEENT Narrative: No tongue or lip swelling no oral lesions no airway edema or compromise Eyes PERRL and EOMs intact bilaterally General Eye ED: Yes pale conjunctiva Neck supple Neck Narrative: Trace JVD noted No crepitance palpated Resp Resp Narrative: Patient is in respiratory distress with tachypnea and accessory muscle use. She also can only speak in 1-2 word sentences. Breath sounds are diminished throughout with diffuse expiratory wheezes and crackles noted in the bilateral lower lobes Cardio regular rate and regular rhythm GI normal to inspection, nondistended, normoactive bowel sounds, non-tender, non-distended and no masses GI Narrative: No voluntary guarding or rigidity no pulsatile mass Auscultation: normoactive bowel sounds Palpation: soft Extremity Extremity Narrative: +1-2 pitting edema to the bilateral lower extremities that is equal and symmetric Negative Homans' sign bilaterally Neuro oriented x3 and CN's II-XII intact bilaterally Sensorium / Orientation: alert Psych mental status grossly normal Skin no rashes or lesions noted MDM MDM MDM Narrative Medical decision making narrative: Patient presented to the ER with a pulse ox in the low to mid 90s on her normal oxygen value but she was tachypneic with accessory muscle use and then could only speak in 1-2 word sentences. On top of that she had trace JVD and crackles and there was concern for congestive heart failure exacerbation. Secondary to this she was given 1 sublingual nitro to try reduce preload and started on BiPAP. Because there is also wheezes present and she has a history of COPD she was given DuoNeb and Solu-Medrol. Patient's labs revealed initial troponin of 22 but 2-hour delta has now increased to 65. Her EKG showed a paced rhythm consistent with her history and she did not complain of chest pain and I feel that the elevation is most likely related to the stress from respiratory distress that she was in when she arrived. As the patient had severe distress upon arrival with only 1-2 word sentences and has required BiPAP more intensely than she normally wears at home I do not feel it is appropriate to let her go back to the [facility] at this time. I feel she should be kept in the hospital to ensure the troponin is stabilizing/downtrending and that her work of breathing remains at her baseline when taken off BiPAP. The case was discussed with the patient and the hospitalist and both agree to this plan of care and therefore patient be admitted at this time Lab Data Attestation: I reviewed the patient's lab results. Labs: Laboratory Results - last 24 hr 07/08/22 07/08/22 07/08/22 22:08 22:36 22:36 WBC RBC Hgb Hct MCV MCH MCHC RDW Std Deviation RDW Coeff of Laura Plt Count MPV Immature Gran % (Auto) Neut % (Auto) Lymph % (Auto) [place] % (Auto) Eos % (Auto) Baso % (Auto) Absolute Neuts (auto) Absolute Lymphs (auto) Nucleated RBC % PT 27.9 H INR 2.6 APTT 40.9 H Sodium 141 Potassium 4.3 Chloride 109 H Carbon Dioxide 29.0 Anion Gap 3 L BUN 19 H Creatinine 0.72 Estim Creat Clear Calc 43.40 Est GFR (MDRD) Af Amer 101 Est GFR (MDRD) Non-Af 84 BUN/Creatinine Ratio 26.5 H Glucose 107 H Calcium 8.6 Magnesium 2.3 Troponin I High Sens 22 B-Natriuretic Peptide POC Glucose 112 H 07/08/22 07/08/22 07/09/22 22:36 22:36 00:20 WBC 8.4 RBC 4.44 Hgb 12.6 Hct 44.2 MCV 99.5 H MCH 28.4 MCHC 28.5 L RDW Std Deviation 54.0 H RDW Coeff of Laura 14.6 Plt Count 253 MPV 12.9 H Immature Gran % (Auto) 0.700 Neut % (Auto) 47.6 Lymph % (Auto) 35.3 [place] % (Auto) 11.3 H Eos % (Auto) 4.6 Baso % (Auto) 0.5 Absolute Neuts (auto) 4.0 Absolute Lymphs (auto) 2.98 Nucleated RBC % 0 PT INR APTT Sodium Potassium Chloride Carbon Dioxide Anion Gap BUN Creatinine Estim Creat Clear Calc Est GFR (MDRD) Af Amer Est GFR (MDRD) Non-Af BUN/Creatinine Ratio Glucose Calcium Magnesium Troponin I High Sens 65 H B-Natriuretic Peptide 186.3 H POC Glucose Radiography Diagnostic Testing: Clinical Impression(s) from Imaging Studies Chest X-Ray 07/08/22 22:40 IMPRESSION: No active disease. Electronically Signed: Dallas Martinez MD at 22:59 EST , Chest x-ray as interpreted by the emergency medicine physician reveals chronic elevation of the left hemidiaphragm without acute infiltrate pneumothorax or pleural effusion Discharge Plan Dx/Rx/DC Orders Clinical Impression: Acute on chronic respiratory failure, Presence of permanent cardiac pacemaker, Current use of ocean transportation intermediary anticoagulation, Elevated troponin Disposition Disposition: Acute Care Hospital [facility] Discharge Date/Time: 07/09/22 02:13
--- NOTE | 2022-07-09 01:23 | CPS ---
[0118] Pt.'s breathing has improved significantly since arrival to ER. ER physician agrees that pt. can take intermittent break from BiPAP at this time. Pt. placed on 3L nasal cannula.
--- NOTE | 2022-07-09 01:39 | HP.PCM.HOS_ITS ---
HPI - General General Date of Admission: 07/09/22 Date of Service: 07/09/22 Chief Complaint: SOB HPI Narrative BERTO SIMPSON, is a 76 F with a significant history of atrial fibrillation; hypertension; COPD with pulmonary hypertension on nightly BiPAP and navwzo-soh-[id number] 2 L nasal cannula oxygen who presents to the emergency department with shortness of breath that started few hours before presentation. Associated for symptoms is nonproductive cough. She reports recent diarrhea which is now resolved. She reports nausea and vomiting. She denies fever. Emergency department report that on presentation patient had increased work of breathing and was talking in short sentences. At the emergency department patient was placed on BiPAP and later transitioned to 3 L nasal cannula oxygen with good oxygen saturation waveform Patient troponin came back to be elevated at 65 PFSH Medical History Atrial fibrillation AV block, complete BiPAP (biphasic positive airway pressure) dependence COPD (chronic obstructive pulmonary disease) Dyslipidemia Essential hypertension Essential hypertension Former tobacco use Heart failure with preserved ejection fraction History of DVT (deep vein thrombosis) History of pulmonary embolus (PE) Presence of permanent cardiac pacemaker (~10/12/20) Pulmonary HTN Sleep apnea Tachycardia-bradycardia syndrome Venous insufficiency Home Medications citalopram 40 mg tablet 20 mg PO DAILY DEPRESSION 05/23/18 [History Last Taken 09/01/20 10:44] omeprazole 20 mg tablet,delayed release 20 mg PO DAILY GERD 01/17/19 [History Last Taken 09/01/20 10:44] sennosides 8.6 mg-docusate sodium 50 mg tablet 2 tab PO QHS CONSTIPATION 08/22/19 [History Last Taken 08/31/20 20:26] Lactobacillus acidophilus 1 cap PO DAILY IMM[facility]E [facility] 08/20/20 [History Last Taken 09/01/20 10:42] acetazolamide 250 mg tablet 250 mg PO BID EDEMA 08/20/20 [History Last Taken 09/01/20 08:00] cyanocobalamin (vitamin B-12) 500 mcg tablet 500 mcg PO DAILY SUPPLEMENT 08/20/20 [History Last Taken 09/01/20 10:44] albuterol sulfate 2.5 mg/3 mL (0.083 %) solution for nebulization 2.5 mg (3 mL) inhalation Q2H PRN PRN Shortness of Breath/Wheezing 09/05/20 [Rx Last Taken Unknown] docusate sodium 100 mg capsule 100 mg PO BID 09/05/20 [Rx Last Taken Unknown] lorazepam 0.5 mg tablet 0.5 mg PO QHS ANXIETY 10/28/20 [History Last Taken Unknown] ipratropium 0.5 mg-albuterol 3 mg (2.5 mg base)/3 mL nebulization soln 3 ml inhalation TID #0 mL 05/26/21 [Rx Last Taken Unknown] acetaminophen 325 mg tablet 650 mg PO TID 07/14/21 [History Last Taken Unknown] bisacodyl 10 mg rectal suppository (Dulcolax (bisacodyl)) 10 mg [place] DAILY PRN Constipation 07/14/21 [History Last Taken Unknown] ondansetron HCl 4 mg tablet 4 mg PO Q4H PRN Nausea 07/14/21 [History Last Taken Unknown] vit C 250 mg-vit E 90 mg-zinc 40 mg-copper 1 [id number] capsule (PreserV kathryn AREDS-2) 1 tab PO BID 07/14/21 [History Last Taken Unknown] warfarin 4 mg tablet See Rx Instructions .Route .COMPLEX 07/14/21 [History Last Taken Unknown] warfarin 5 mg tablet See Rx Instructions .Route .COMPLEX 07/14/21 [History Last Taken Unknown] budesonide 0.25 mg/2 mL suspension for nebulization 0.25 mg inhalation BID COPD 01/14/22 [History Last Taken Unknown] buspirone 5 mg tablet 2.5 mg PO QHS 01/14/22 [History Last Taken Unknown] cholecalciferol (vitamin D3) 125 mcg (5,000 unit) tablet 125 mcg PO TH 01/14/22 [History Last Taken Unknown] furosemide 20 mg tablet 20 mg PO DAILY 01/14/22 [History Last Taken Unknown] magnesium hydroxide 400 mg/5 mL oral suspension (Milk of Magnesia) 30 ml PO DAILY PRN Constipation 01/14/22 [History Last Taken Unknown] menthol 4 % topical gel (Biofreeze (menthol)) 1 applic topical BID PRN Pain 01/14/22 [History Last Taken Unknown] potassium chloride 20 mEq tablet,extended release 20 meq PO DAILY 01/14/22 [History Last Taken Unknown] sodium phosphates 19 gram-7 gram/118 mL enema 118 ml [place] DAILY PRN Constipation 01/14/22 [History Last Taken Unknown] acetaminophen 500 mg capsule 1,000 mg PO Q8H PRN Pain 04/14/22 [History Last Taken Unknown] albuterol sulfate 90 mcg/actuation aerosol inhaler (Ventolin HFA) 2 puff inhalation Q4H PRN PRN Wheezing ##1 04/14/22 [Rx Last Taken Unknown] guaifenesin 100 mg/5 mL oral liquid (Tussin) 200 mg PO Q6H PRN Cough 04/14/22 [History Last Taken Unknown] menthol 4 % topical cream 1 applic topical Q2H PRN PRN Pain 04/14/22 [History Last Taken Unknown] phenylephrine 0.25 %-hard fat 88.7 % rectal suppository (Hemorrhoidal (phenylephrine-hard fat)) 1 supp [place] Q6H PRN PRN Hemorrhoids 04/14/22 [History Last Taken Unknown] Allergy/AdvReac Type Severity Reaction Status Date / Time amlodipine besylate AdvReac ANKLE AND Verified 07/08/22 22:00 [From [facility]] LEG EDEMA codeine AdvReac MENTAL Verified 07/08/22 22:00 STATUS CHANGE lisinopril AdvReac COUGH Verified 07/08/22 22:00 Family History Sister Heart disease Surgical History History of cholecystectomy History of total hysterectomy Hx of atrioventricular node ablation tailbone surgery Social History household members: none housing: care home Smoking Status: Former smoker how long ago did patient quit smoking: Approxiomately 2003 alcohol intake: never substance use type: does not use caffeine: No ROS ROS Narrative Pertinent positives and pertinent negatives as noted in HPI. All other systems were reviewed and are negative Vital Signs Vital Signs Vital Signs: 07/08/22 22:01 07/08/22 22:08 07/08/22 22:06 Temperature 98.5 F 98.5 F Temperature Source Temporal Temporal Pulse Rate 80 50 L Respiratory Rate 42 H 42 H Respiratory Effort Short of Breath Labored Respiratory Depth Shallow Respiratory Pattern Tachypnea Blood Pressure 210/156 H 210/156 H Blood Pressure Mean 174 174 Pulse Ox 96 96 Oxygen Delivery Method Room Air Nasal Cannula Nasal Cannula Fraction of Inspired Oxygen (FIO2) 07/08/22 22:21 07/08/22 22:25 07/08/22 22:33 Temperature Temperature Source Pulse Rate 55 L 60 60 Respiratory Rate 36 H 30 H Respiratory Effort Respiratory Depth Respiratory Pattern Tachypnea Tachypnea Blood Pressure 210/156 H Blood Pressure Mean Pulse Ox 92 Oxygen Delivery Method Fraction of Inspired Oxygen (FIO2) 30 07/08/22 22:33 07/08/22 23:00 07/08/22 23:06 Temperature 98.6 F Temperature Source Temporal Pulse Rate 60 60 Respiratory Rate 36 H 20 H 21 H Respiratory Effort Short of Breath Labored Accessory Muscle Use Respiratory Depth Shallow Respiratory Pattern Tachypnea Blood Pressure 143/70 H 143/70 H Blood Pressure Mean 94 94 Pulse Ox 92 94 94 Oxygen Delivery Method Bi-pap Bi-pap Bi-pap Fraction of Inspired Oxygen (FIO2) 30 07/09/22 00:03 07/09/22 00:00 07/09/22 00:59 Temperature Temperature Source Pulse Rate 60 60 60 Respiratory Rate 26 H 26 H 24 H Respiratory Effort Respiratory Depth Respiratory Pattern Tachypnea Blood Pressure 152/78 H 138/70 H Blood Pressure Mean 102 92 Pulse Ox 95 96 95 Oxygen Delivery Method Bi-pap Bi-pap Fraction of Inspired Oxygen (FIO2) 30 30 30 07/09/22 01:07 Temperature Temperature Source Pulse Rate 60 Respiratory Rate 24 H Respiratory Effort Respiratory Depth Respiratory Pattern Tachypnea Blood Pressure Blood Pressure Mean Pulse Ox Oxygen Delivery Method Fraction of Inspired Oxygen (FIO2) Weight Weight: 75.5 kg Body Mass Index (BMI) 26.7 Physical Exam Narrative Physical exam: General: Well-nourished, well-developed. Head: Normocephalic, atraumatic, no tenderness Eyes: Vision is grossly intact. EOMI ENT, no trauma, moist mucous membranes, no rhinorrhea Neck: Nontender, No thyromegaly. CVS: Regular rate and rhythm. S1-S2 present. No murmur, gallop or rub. Respiratory : Wheezes, chest wall nontender. Abdomen: Soft, nontender, nondistended, normal bowel sounds, no masses : Deferred Back: Nontender, no CVA tenderness, no midline spinal tenderness, deformities, step-offs Extremities: Nontender full range of motion, no trauma Skin: Normal color, no trauma, abrasions Neuro: Alert, oriented, cranial nerves II through XII grossly intact. Psychiatry: Normal mood. Normal affect. Not depressed. Not anxious. Results Lab / Micro Data Result Diagrams: 07/08/22 22:36 07/08/22 22:36 Labs: Laboratory Results - last 24 hr 07/08/22 22:08: POC Glucose 112 H 07/08/22 22:36: PT 27.9 H, INR 2.6, APTT 40.9 H 07/08/22 22:36: Sodium 141, Potassium 4.3, Chloride 109 H, Carbon Dioxide 29.0, Anion Gap 3 L, BUN 19 H, Creatinine 0.72, Estim Creat Clear Calc 43.40, Est GFR (MDRD) Af Amer 101, Est GFR (MDRD) Non-Af 84, BUN/Creatinine Ratio 26.5 H, Glucose 107 H, Calcium 8.6, Magnesium 2.3, Troponin I High Sens 22 07/08/22 22:36: B-Natriuretic Peptide 186.3 H 07/08/22 22:36: WBC 8.4, RBC 4.44, Hgb 12.6, Hct 44.2, MCV 99.5 H, MCH 28.4, MCHC 28.5 L, RDW Std Deviation 54.0 H, RDW Coeff of Laura 14.6, Plt Count 253, MPV 12.9 H, Immature Gran % (Auto) 0.700, Neut % (Auto) 47.6, Lymph % (Auto) 35.3, [place] % (Auto) 11.3 H, Eos % (Auto) 4.6, Baso % (Auto) 0.5, Absolute Neuts (auto) 4.0, Absolute Lymphs (auto) 2.98, Nucleated RBC % 0 07/09/22 00:20: Troponin I High Sens 65 H Radiology Impression Chest X-Ray 07/08/22 22:40 IMPRESSION: No active disease. Electronically Signed: Dallas Martinez MD at 22:59 EST , Assessment & Plan Assessment/Plan (1) Acute exacerbation of COPD with asthma: (2) Elevated troponin: (3) Essential hypertension: PLAN: Plan Acute exacerbation of COPD with asthma Chest x-ray was visualized and independently interpreted and I agree with radiology interpretation of no active disease. Scheduled DuoNeb Albuterol as needed Solu-Medrol [id number] ordered. Expectorant continued With patient's requiring BiPAP initially at the emergency department azithromycin ordered. BiPAP nightly and as needed. Oxygen supplementation continued. Titrate as necessary Monitor BMP and CBC Elevated troponin Initial high sensitive troponin was 22. Repeat 65. Likely from demand ischemia. Trend. History of atrial fibrillation/PE INR is therapeutic. Coumadin continued. Trend PT/INR Heart failure with preserved ejection fraction Cardiogram on 09/04/2019 showed estimated ejection fraction of 65%. Diastolic function could not be assessed due to arrhythmia. BNP on presentation was 186.3. Patient does not look edematous. Chest x-ray is clear. From heart failure standpoint patient appears stable. Lasix continued. Hypertension Blood pressure is not within goal Lasix continued Trend blood pressure and adjust blood pressure medications. DVT prophylaxis: Not indicated as patient is on warfarin and INR therapeutic. Charges/Coding Visit Charges Inpatient E&M: 02938 Init Hosp L3
[2022-07-09] MEDS: 0.9% Saline Lock 10 ML Syringe IV ×2 (04:17→14:50)
[2022-07-09 05:12] LABS: Absolute Lymphocyte Count 0.74 X10^3/uL (0.83-4.51); Absolute Neutrophil Count 5.8 X10^3/uL (2.0-7.7); Basophil# 0.02 X10^3/uL; Basophil% 0.3 % (0-1); Hematocrit 42.8 % (37-47); Lymphocyte # 0.74 X10^3/ul (0.83-4.51); Lymphocyte % 11.2 % (19-41); Mean Corpuscular Hgb 27.6 pg (27.0-32.0); Mean Corpuscular Volume 98.6 fL (81-99); Mean Platelet Vol. 12.8 fl (6.2-12.0); Monocyte# 0.08 X10^3/uL; Monocyte% 1.2 % (0-10); NRBC Flagged by Analyzer 0 % (0-5); Neutrophil # 5.75 X10^3/uL (2.7-7.7); Neutrophil % 86.7 % (47-70); Platelet Count 228 K/mm3 (150-450); RBC Distribution Width CV 14.6 % (11.6-14.6); RBC Distribution Width SD 53.4 fl (35.1-43.9); Red Blood Count 4.34 M/mm3 (4.2-5.4); White Blood Count 6.6 K/mm3 (4.4-11.0)
[2022-07-09 05:22] LABS: International Normalized Ratio 2.8; Prothrombin Time (Protime)PT. 29.1 SECONDS (11.7-14.9)
[2022-07-09 05:31] LABS: Troponin-I HS 110 pg/mL (3.0-54.0)
[2022-07-09 05:34] LABS: Anion Gap 4 (5-15); BUN 18 mg/dL (7-18); Calcium,Total 8.7 mg/dL (8.5-10.1); Chloride 108 mmol/L (98-107); Creatinine, Serum 0.56 mg/dL (0.55-1.02); EST Glomerular Filtration Rate 111 mL/min (>60); Est Glom Filt Rate - Afr Amer 134 mL/min (>60); Estimated Creatinine Clearance 45.09 ml/min; Glucose 168 mg/dL (74-106); Potassium 3.8 mmol/L (3.5-5.1); Sodium Level 142 mmol/L (136-145)
[2022-07-09] MEDS: Acetaminophen 325 MG Tablet 650 MG PO ×3 (05:59→21:51)
[2022-07-09] MEDS: Ipratropium/Albuterol Sulfate 3 ML AMPUL.NEB INHALATION ×4 (07:59→19:31)
[2022-07-09 09:12] LABS: Troponin-I HS 70 pg/mL (3.0-54.0)
[2022-07-09] MEDS: Multivitamin (Healthy Eyes) Capsule 1 CAP PO ×2 (10:14→22:02)
[2022-07-09] MEDS: Pantoprazole Sodium 20 MG Tablet PO (10:14)
[2022-07-09] MEDS: Citalopram 20 MG Tablet PO (10:15)
[2022-07-09] MEDS: AcetaZOLAMIDE 250 MG Tablet PO ×2 (10:15→16:43)
[2022-07-09] MEDS: Furosemide 20 MG Tablet PO (10:15)
[2022-07-09] MEDS: Docusate Sodium 100 MG Capsule PO ×2 (10:15→21:51)
[2022-07-09] MEDS: Cyanocobalamin 500 MCG Tablet PO (10:16)
[2022-07-09] MEDS: Potassium Chloride Oral Tablet 20 MEQ PO (10:17)
--- NOTE | 2022-07-09 11:32 | CASEMGMT ---
YAO Note SW met with patient and introduced herself and role as [facility] Vise Hand. SW inquired about patient's living arrangements and plans to return to [facility]. Patient stated she has been living at [facility] for years and wants to return. SW explained she would contact [place] and provide them with updates regarding her stay, patient reported understanding. Patient voiced medical needs regarding a concern about a blood clot in her leg as well as needing a breathing treatment. SW stated she would update patient's nurse of needs. YAO informed MAGO Harris of patient's concerns, RN reported she would contact respiratory to address breathing treatment and meet with patient to address other concerns. YAO sent updated to [facility] at [place] via [employer]. Plan: Return to [facility] when medically ready CARMITA Gonsalez
--- NOTE | 2022-07-09 17:22 | PCM.HOSP.N ---
Hospitalist Note Feeling somewhat better throughout the day, on BiPAP. No chest pain, no swelling in her legs. Does have a domed appearing hematoma on her left calf that is slightly tender, she is unsure how long it has been there but she noticed it yesterday. Ultrasound ordered to further characterize lesion as it is atypical for regular hematoma and appears almost masslike. Continue BiPAP, nebs, steroids. Troponin peaked at 110 and trended back down, likely type II given respiratory status and lack of chest pain
[2022-07-09] MEDS: LORazepam 0.5 MG Tablet PO (21:51)
[2022-07-09] MEDS: busPIRone 5 MG Tablet 2.5 MG PO (21:51)
[2022-07-09] MEDS: Senna/Docusate Sodium 1 Tablet PO (21:51)
[2022-07-10] VITALS (17 sets, daily range): BP systolic 132–169; BP diastolic 64–85; PULSE 58–71; RESP 12–24; TEMP 36.3–36.9; O2SAT 96–98
[2022-07-10 05:07] LABS: Absolute Lymphocyte Count 0.76 X10^3/uL (0.83-4.51); Absolute Neutrophil Count 4.3 X10^3/uL (2.0-7.7); Hematocrit 37.3 % (37-47); Hemoglobin 10.7 g/dL (12.0-15.0); Lymphocyte # 0.76 X10^3/ul (0.83-4.51); Lymphocyte % 14.4 % (19-41); Mean Corp Hgb Conc 28.7 g/dL (32-36); Mean Corpuscular Volume 97.6 fL (81-99); Mean Platelet Vol. 12.5 fl (6.2-12.0); Monocyte% 3.8 % (0-10); NRBC Flagged by Analyzer 0 % (0-5); Neutrophil # 4.28 X10^3/uL (2.7-7.7); Neutrophil % 81.2 % (47-70); Platelet Count 197 K/mm3 (150-450); RBC Distribution Width CV 14.6 % (11.6-14.6); RBC Distribution Width SD 52.8 fl (35.1-43.9); Red Blood Count 3.82 M/mm3 (4.2-5.4); White Blood Count 5.3 K/mm3 (4.4-11.0)
[2022-07-10 05:31] LABS: International Normalized Ratio 3.6; Prothrombin Time (Protime)PT. 35.7 SECONDS (11.7-14.9)
[2022-07-10 05:39] LABS: ALB/GLOB Ratio 0.8 RATIO (0.9-2.4); AST(SGOT) 32 U/L (15-37); Alanine Aminotransfer ALT/SGPT 16 U/L (13-56); Albumin, Serum 2.8 g/dL (3.2-5.0); Alkaline Phosphatase 106 U/L (45-117); Anion Gap 1 (5-15); BUN 21 mg/dL (7-18); Calcium,Total 8.6 mg/dL (8.5-10.1); Chloride 111 mmol/L (98-107); Creatinine, Serum 0.51 mg/dL (0.55-1.02); EST Glomerular Filtration Rate 123 mL/min (>60); Est Glom Filt Rate - Afr Amer 149 mL/min (>60); Estimated Creatinine Clearance 45.09 ml/min; Globulin 3.6 g/dL (2.2-4.2); Glucose 127 mg/dL (74-106); Potassium 4.8 mmol/L (3.5-5.1); Protein, Total 6.4 g/dL (6.4-8.2); Sodium Level 142 mmol/L (136-145)
[2022-07-10] MEDS: 0.9% Saline Lock 10 ML Syringe IV ×3 (05:41→20:50)
[2022-07-10] MEDS: Ipratropium/Albuterol Sulfate 3 ML AMPUL.NEB INHALATION ×5 (07:25→22:41)
[2022-07-10] MEDS: AcetaZOLAMIDE 250 MG Tablet PO ×2 (08:48→16:28)
[2022-07-10] MEDS: Multivitamin (Healthy Eyes) Capsule 1 CAP PO ×2 (08:48→20:50)
[2022-07-10] MEDS: Docusate Sodium 100 MG Capsule PO ×2 (08:48→20:49)
[2022-07-10] MEDS: Citalopram 20 MG Tablet PO (08:49)
[2022-07-10] MEDS: Pantoprazole Sodium 20 MG Tablet PO (08:50)
[2022-07-10] MEDS: Furosemide 20 MG Tablet PO (08:50)
[2022-07-10] MEDS: Cyanocobalamin 500 MCG Tablet PO (08:51)
[2022-07-10] MEDS: Acetaminophen 325 MG Tablet 650 MG PO ×2 (13:47→20:48)
--- NOTE | 2022-07-10 15:37 | PN.HOSP_ITS ---
Subjective Subjective Breathing slowly improving, still some tenderness over hematoma like area on left calf, little cough. Has some heaviness in her chest that she now is reporting was present on arrival is improving as her respiratory status improves. No other complaints at this time other than reporting both legs are sensitive diffusely but that that is chronic Objective Data Objective Data Vital Signs: Vital Signs Temp Pulse Resp BP Pulse Ox O2 Del Method O2 Flow Rate 98.5 F 60 18 169/70 H 98 Nasal Cannula 2 07/10/22 14:19 07/10/22 14:19 07/10/22 14:19 07/10/22 14:19 07/10/22 14:19 07/10/22 14:19 07/10/22 14:19 FiO2 30 07/10/22 05:12 Oxygen Flow Rate (L/min) 2 Oxygen Delivery Method Nasal Cannula Weight: 72.7 kg Body Mass Index (BMI) 25.1 Intake & Output: Intake and Output for Last 24 Hours 07/08/22 07/09/22 07/10/22 23:59 23:59 23:59 Intake Total 870 / 870 Output Total 450 / 450 600 / 600 Balance 420 / 420 -600 / -600 Lab / Micro Data Result Diagrams: 07/10/22 04:40 07/10/22 04:40 Labs: Laboratory Results - last 24 hr 07/10/22 04:40: PT 35.7 H, INR 3.6 07/10/22 04:40: WBC 5.3, RBC 3.82 L, Hgb 10.7 L, Hct 37.3, MCV 97.6, MCH 28.0, MCHC 28.7 L, RDW Std Deviation 52.8 H, RDW Coeff of Laura 14.6, Plt Count 197, MPV 12.5 H, Immature Gran % (Auto) 0.600, Neut % (Auto) 81.2 H, Lymph % (Auto) 14.4 L, [place] % (Auto) 3.8, Eos % (Auto) 0.0, Baso % (Auto) 0.0, Absolute Neuts (auto) 4.3, Absolute Lymphs (auto) 0.76 L, Nucleated RBC % 0 07/10/22 04:40: Sodium 142, Potassium 4.8, Chloride 111 H, Carbon Dioxide 30.0, Anion Gap 1 L, BUN 21 H, Creatinine 0.51 L, Estim Creat Clear Calc 45.09, Est GFR (MDRD) Af Amer 149, Est GFR (MDRD) Non-Af 123, BUN/Creatinine Ratio 41.0 H, Glucose 127 H, Calcium 8.6, Total Bilirubin 0.50, AST 32, ALT 16, Alkaline Phosphatase 106, Total Protein 6.4, Albumin 2.8 L, Globulin 3.6, Albumin/Globulin Ratio 0.8 L Physical Exam Const alert and no apparent distress Constitutional Narrative: Oriented HEENT normocephalic and head/scalp atraumatic Eyes Eyes Narrative: EOM grossly intact, anicteric Neck supple Resp normal respiratory effort Resp Narrative: Somewhat diminished at the bases and scattered wheezing Cardio regular rate GI soft to palpation, non-tender and non-distended Extremity Extremity Narrative: No edema appreciated Neuro moves all extremities Neuro Narrative: No overt focal deficits appreciated Psych Psych Narrative: Cooperative Assessment & Plan Assessment/Plan (1) Acute exacerbation of COPD with asthma: PLAN: Plan #Acute exacerbation of COPD Chest x-ray on admission no active disease Is slowly improving Scheduled duo nebs with albuterol as needed Continue Solu-Medrol and azithromycin BiPAP as needed was able to maintain sats off of it with O2 in place this morning #Left calve hematoma Marked presently Awaiting ultrasound Is mobile, not fixed, does not seem to be more painful than surrounding tissue per se, not tense Continue to monitor and await ultrasound #Elevated troponin For his troponin 65 then 110 then 70 Likely from demand ischemia Does follow with cardiology as an outpatient #History of VTE and atrial fibrillation INR has been therapeutic, today is 3.6 this is above range Will decrease Coumadin dose Trend PT/INR #Heart failure with preserved ejection fraction Cardiogram on 09/04/2019 showed estimated ejection fraction of 65%.? Diastolic function could not be assessed due to arrhythmia. Continue Lasix #Hypertension On Lasix and acetazolamide More elevated today than it was for the past 2 days, will follow trend and add medication if needed #DVT ppx: Therapeutic on Coumadin Kami Hill MD Charges/Coding Visit Charges Inpatient E&M: 37972 Subs Hosp L2
[2022-07-10] MEDS: LORazepam 0.5 MG Tablet PO (20:46)
[2022-07-10] MEDS: Senna/Docusate Sodium 1 Tablet PO ×2 (20:47→20:48)
[2022-07-10] MEDS: busPIRone 5 MG Tablet 2.5 MG PO (20:47)
[2022-07-11] VITALS (18 sets, daily range): BP systolic 101–152; BP diastolic 62–93; PULSE 58–61; RESP 12–33; TEMP 35.6–36.9; O2SAT 95–100
[2022-07-11] MEDS: Acetaminophen 325 MG Tablet 650 MG PO ×3 (05:07→21:29)
[2022-07-11] MEDS: 0.9% Saline Lock 10 ML Syringe IV (05:07)
[2022-07-11 07:18] LABS: Absolute Lymphocyte Count 0.79 X10^3/uL (0.83-4.51); Absolute Neutrophil Count 6.3 X10^3/uL (2.0-7.7); Hematocrit 37.9 % (37-47); Hemoglobin 11.3 g/dL (12.0-15.0); Lymphocyte # 0.79 X10^3/ul (0.83-4.51); Lymphocyte % 10.6 % (19-41); Mean Corp Hgb Conc 29.8 g/dL (32-36); Mean Corpuscular Hgb 28.9 pg (27.0-32.0); Mean Corpuscular Volume 96.9 fL (81-99); Mean Platelet Vol. 12.8 fl (6.2-12.0); Monocyte# 0.34 X10^3/uL; Monocyte% 4.6 % (0-10); NRBC Flagged by Analyzer 0 % (0-5); Neutrophil # 6.26 X10^3/uL (2.7-7.7); Neutrophil % 84.4 % (47-70); Platelet Count 199 K/mm3 (150-450); RBC Distribution Width CV 14.7 % (11.6-14.6); RBC Distribution Width SD 52.5 fl (35.1-43.9); Red Blood Count 3.91 M/mm3 (4.2-5.4); White Blood Count 7.4 K/mm3 (4.4-11.0)
[2022-07-11 07:25] LABS: Prothrombin Time (Protime)PT. 42.1 SECONDS (11.7-14.9)
[2022-07-11] MEDS: Ipratropium/Albuterol Sulfate 3 ML AMPUL.NEB INHALATION ×6 (07:32→23:05)
[2022-07-11 07:36] LABS: International Normalized Ratio 4.4
[2022-07-11 07:56] LABS: Anion Gap 6 (5-15); BUN 28 mg/dL (7-18); BUN/Creat Ratio 55.3 RATIO (10-20); Calcium,Total 8.7 mg/dL (8.5-10.1); Chloride 107 mmol/L (98-107); Creatinine, Serum 0.51 mg/dL (0.55-1.02); EST Glomerular Filtration Rate 125 mL/min (>60); Est Glom Filt Rate - Afr Amer 151 mL/min (>60); Estimated Creatinine Clearance 45.09 ml/min; Glucose 105 mg/dL (74-106); Sodium Level 142 mmol/L (136-145)
[2022-07-11] MEDS: Multivitamin (Healthy Eyes) Capsule 1 CAP PO ×2 (08:42→21:29)
[2022-07-11] MEDS: Cyanocobalamin 500 MCG Tablet PO (08:43)
[2022-07-11] MEDS: Citalopram 20 MG Tablet PO (08:43)
[2022-07-11] MEDS: Furosemide 20 MG Tablet PO (08:44)
[2022-07-11] MEDS: Pantoprazole Sodium 20 MG Tablet PO (08:44)
[2022-07-11] MEDS: AcetaZOLAMIDE 250 MG Tablet PO ×2 (08:45→15:58)
[2022-07-11] MEDS: Docusate Sodium 100 MG Capsule PO ×2 (08:45→21:31)
[2022-07-11] MEDS: Potassium Chloride Oral Tablet 20 MEQ PO (08:46)
--- NOTE | 2022-07-11 13:28 | NURSING ---
pt upset that ultrasound not here today to do her test. explained that this in considered the holiday and her test would be done tomorrow.
--- NOTE | 2022-07-11 19:09 | PCM.PN.HOSP ---
Subjective Subjective Breathing still variable, minimal cough, continues to have the soreness on the side of her leg. Objective Data Objective Data Vital Signs: Vital Signs Temp Pulse Resp BP Pulse Ox O2 Del Method O2 Flow Rate 98.5 F 59 L 20 H 140/74 H 98 Bi-pap 2 07/11/22 16:08 07/11/22 16:08 07/11/22 16:08 07/11/22 16:08 07/11/22 16:08 07/11/22 16:08 07/11/22 11:45 FiO2 30 07/11/22 16:08 Oxygen Flow Rate (L/min) 2 Oxygen Delivery Method Bi-pap Weight: 72.7 kg Body Mass Index (BMI) 25.1 Intake & Output: Intake and Output for Last 24 Hours 07/09/22 07/10/22 07/11/22 23:59 23:59 23:59 Intake Total 870 / 870 255 / 355 760 / 760 Output Total 450 / 450 600 / 800 450 / 450 Balance 420 / 420 -345 / -445 310 / 310 Lab / Micro Data Result Diagrams: 07/11/22 06:40 07/11/22 06:40 Labs: Laboratory Results - last 24 hr 07/11/22 06:40: PT 42.1 H, INR 4.4 H* 07/11/22 06:40: WBC 7.4, RBC 3.91 L, Hgb 11.3 L, Hct 37.9, MCV 96.9, MCH 28.9, MCHC 29.8 L, RDW Std Deviation 52.5 H, RDW Coeff of Laura 14.7 H, Plt Count 199, MPV 12.8 H, Immature Gran % (Auto) 0.400, Neut % (Auto) 84.4 H, Lymph % (Auto) 10.6 L, [place] % (Auto) 4.6, Eos % (Auto) 0.0, Baso % (Auto) 0.0, Absolute Neuts (auto) 6.3, Absolute Lymphs (auto) 0.79 L, Nucleated RBC % 0 07/11/22 06:40: Sodium 142, Potassium 4.0, Chloride 107, Carbon Dioxide 29.0, Anion Gap 6, BUN 28 H, Creatinine 0.51 L, Estim Creat Clear Calc 45.09, Est GFR (MDRD) Af Amer 151, Est GFR (MDRD) Non-Af 125, BUN/Creatinine Ratio 55.3 H, Glucose 105, Calcium 8.7 Physical Exam Const alert and no apparent distress Constitutional Narrative: Oriented HEENT normocephalic and head/scalp atraumatic Eyes Eyes Narrative: EOM grossly intact, anicteric Neck supple Resp normal respiratory effort Resp Narrative: Somewhat diminished at the bases Cardio regular rate GI soft to palpation, non-tender and non-distended Extremity Extremity Narrative: No edema appreciated, has domed area of bruise on left outer calf which is extended slightly Neuro moves all extremities Neuro Narrative: No overt focal deficits appreciated Psych Psych Narrative: Cooperative Assessment & Plan Assessment/Plan (1) Acute exacerbation of COPD with asthma: PLAN: Plan #Acute exacerbation of COPD Chest x-ray on admission no active disease Is slowly improving Scheduled duo nebs with albuterol as needed Continue Solu-Medrol and azithromycin BiPAP as needed was able to maintain sats off of it with O2 in place this morning 07/11: Continues to improve, will change steroids to oral #Left calve hematoma Marked presently Awaiting ultrasound Is mobile, not fixed, does not seem to be more painful than surrounding tissue per se, not tense Continue to monitor and await ultrasound 07/11: Still awaiting ultrasound, now with supratherapeutic INR so holding Coumadin today #Elevated troponin For his troponin 65 then 110 then 70 Likely from demand ischemia Does follow with cardiology as an outpatient #History of VTE and atrial fibrillation INR has been therapeutic, today is 3.6 this is above range Will decrease Coumadin dose Trend PT/INR 07/11: Continues to rise, holding Coumadin dose today #Heart failure with preserved ejection fraction Cardiogram on 09/04/2019 showed estimated ejection fraction of 65%.? Diastolic function could not be assessed due to arrhythmia. Continue Lasix #Hypertension On Lasix and acetazolamide #DVT ppx: Therapeutic on Coumadin Kami Hill MD Charges/Coding Visit Charges Inpatient E&M: 97144 Subs Hosp L2
[2022-07-11] MEDS: LORazepam 0.5 MG Tablet PO (21:29)
[2022-07-11] MEDS: MELATONIN 3 MG TABLET PO (21:29)
[2022-07-11] MEDS: Senna/Docusate Sodium 1 Tablet PO (21:30)
[2022-07-11] MEDS: busPIRone 5 MG Tablet 2.5 MG PO (21:30)
[2022-07-12] VITALS (19 sets, daily range): BP systolic 149–165; BP diastolic 77–87; PULSE 59–78; RESP 12–32; TEMP 36.4–36.9; O2SAT 95–99
[2022-07-12] MEDS: Ipratropium/Albuterol Sulfate 3 ML AMPUL.NEB INHALATION ×7 (02:34→23:11)
--- NOTE | 2022-07-12 05:00 | US_ITS ---
STUDY: SUPERFICIAL ULTRASOUND - LEFT LEG REASON FOR EXAM: Female, 76 years old. Left leg hematoma/mass like lesion on leg -- Further characterization internally, cystic etc TECHNIQUE: A superficial ultrasound was performed with real-time and static zelaya-scale imaging. COMPARISON: None. FINDINGS: Multiple longitudinal and transverse ultrasound images of the left leg in the area of soft tissue swelling demonstrate a 3.5 cm oval heterogeneous hypoechoic mass which may represent a hematoma. US/Ext Non Vasc Limited/Soft Tiss IMPRESSION: Ultrasound confirms a 3.5 cm heterogeneous hypoechoic mass possibly consistent with a hematoma. Electronically Signed: Dallas Martinez MD at 9:57 EST ,
[2022-07-12] MEDS: Acetaminophen 325 MG Tablet 650 MG PO ×3 (05:09→21:03)
[2022-07-12 05:35] LABS: Absolute Lymphocyte Count 1.59 X10^3/uL (0.83-4.51); Absolute Neutrophil Count 4.9 X10^3/uL (2.0-7.7); Basophil# 0.01 X10^3/uL; Basophil% 0.1 % (0-1); Eosinophil# 0.01 X10^3/uL; Eosinophils% 0.1 % (0-5); Hematocrit 40.4 % (37-47); Hemoglobin 11.6 g/dL (12.0-15.0); Lymphocyte # 1.59 X10^3/ul (0.83-4.51); Mean Corp Hgb Conc 28.7 g/dL (32-36); Mean Corpuscular Volume 97.3 fL (81-99); Mean Platelet Vol. 12.9 fl (6.2-12.0); Monocyte% 9.7 % (0-10); NRBC Flagged by Analyzer 0 % (0-5); Neutrophil # 4.91 X10^3/uL (2.7-7.7); Platelet Count 194 K/mm3 (150-450); RBC Distribution Width CV 14.9 % (11.6-14.6); Red Blood Count 4.15 M/mm3 (4.2-5.4); White Blood Count 7.2 K/mm3 (4.4-11.0)
[2022-07-12 05:46] LABS: International Normalized Ratio 3.8; Prothrombin Time (Protime)PT. 37.4 SECONDS (11.7-14.9)
[2022-07-12 05:56] LABS: ALB/GLOB Ratio 0.9 RATIO (0.9-2.4); AST(SGOT) 31 U/L (15-37); Alanine Aminotransfer ALT/SGPT 31 U/L (13-56); Albumin, Serum 2.9 g/dL (3.2-5.0); Alkaline Phosphatase 96 U/L (45-117); Anion Gap 1 (5-15); BUN 36 mg/dL (7-18); Calcium,Total 8.8 mg/dL (8.5-10.1); Chloride 109 mmol/L (98-107); Creatinine, Serum 0.62 mg/dL (0.55-1.02); EST Glomerular Filtration Rate 99 mL/min (>60); Est Glom Filt Rate - Afr Amer 119 mL/min (>60); Estimated Creatinine Clearance 45.09 ml/min; Globulin 3.3 g/dL (2.2-4.2); Glucose 85 mg/dL (74-106); Potassium 3.2 mmol/L (3.5-5.1); Protein, Total 6.2 g/dL (6.4-8.2); Sodium Level 146 mmol/L (136-145)
[2022-07-12] MEDS: Cyanocobalamin 500 MCG Tablet PO (09:03)
[2022-07-12] MEDS: Citalopram 20 MG Tablet PO (09:03)
[2022-07-12] MEDS: Furosemide 20 MG Tablet PO (09:03)
[2022-07-12] MEDS: Pantoprazole Sodium 20 MG Tablet PO (09:03)
[2022-07-12] MEDS: Multivitamin (Healthy Eyes) Capsule 1 CAP PO ×2 (09:04→21:03)
[2022-07-12] MEDS: predniSONE 20 MG Tablet 40 MG PO (09:07)
--- NOTE | 2022-07-12 09:39 | CASEMGMT ---
Discharge [employer] Telephone Clerk This principal technical writer sent updates to [facility]. Deisi ZABALA Medical Affairs Manager
--- NOTE | 2022-07-12 11:15 | CASEMGMT ---
Discharge [employer] Operator [facility] from [facility] reached out. [facility] can return to [facility] when medically ready. No pre-cert needed. Deisi ZABALA Learning Developer
[2022-07-12] MEDS: AcetaZOLAMIDE 250 MG Tablet PO ×2 (15:00→18:20)
[2022-07-12] MEDS: Potassium Chloride Oral Tablet 20 MEQ 60 MEQ PO (15:01)
[2022-07-12] MEDS: Potassium Chloride Oral Tablet 20 MEQ PO (15:02)
--- NOTE | 2022-07-12 15:55 | PCM.PN.HOSP ---
Subjective Subjective Slightly more short of breath this morning but it waxes and wanes, no significant cough, no significant change in bruising on leg Objective Data Objective Data Vital Signs: Vital Signs Temp Pulse Resp BP Pulse Ox O2 Del Method O2 Flow Rate 98.5 F 60 17 163/80 H 97 Nasal Cannula 2 07/12/22 14:53 07/12/22 14:53 07/12/22 14:53 07/12/22 14:53 07/12/22 14:53 07/12/22 14:53 07/12/22 14:53 FiO2 30 07/12/22 07:17 Oxygen Flow Rate (L/min) 2 Oxygen Delivery Method Nasal Cannula Weight: 72.7 kg Body Mass Index (BMI) 25.1 Intake & Output: Intake and Output for Last 24 Hours 07/10/22 07/11/22 07/12/22 23:59 23:59 23:59 Intake Total 255 / 355 1015 / 1075 60 / 60 Output Total 600 / 800 450 / 650 450 / 450 Balance -345 / -445 565 / 425 -390 / -390 Lab / Micro Data Result Diagrams: 07/12/22 04:43 07/12/22 04:43 Labs: Laboratory Results - last 24 hr 07/12/22 04:43: PT 37.4 H, INR 3.8 07/12/22 04:43: WBC 7.2, RBC 4.15 L, Hgb 11.6 L, Hct 40.4, MCV 97.3, MCH 28.0, MCHC 28.7 L, RDW Std Deviation 54.0 H, RDW Coeff of Laura 14.9 H, Plt Count 194, MPV 12.9 H, Immature Gran % (Auto) 0.100, Neut % (Auto) 68.0, Lymph % (Auto) 22.0, [place] % (Auto) 9.7, Eos % (Auto) 0.1, Baso % (Auto) 0.1, Absolute Neuts (auto) 4.9, Absolute Lymphs (auto) 1.59, Nucleated RBC % 0 07/12/22 04:43: Sodium 146 H, Potassium 3.2 L, Chloride 109 H, Carbon Dioxide 36.0 H, Anion Gap 1 L, BUN 36 H, Creatinine 0.62, Estim Creat Clear Calc 45.09, Est GFR (MDRD) Af Amer 119, Est GFR (MDRD) Non-Af 99, BUN/Creatinine Ratio 58.0 H, Glucose 85, Calcium 8.8, Total Bilirubin 0.60, AST 31, ALT 31, Alkaline Phosphatase 96, Total Protein 6.2 L, Albumin 2.9 L, Globulin 3.3, Albumin/Globulin Ratio 0.9 Radiography Diagnostic Testing: Radiology Impression Soft Tissue Ultrasound 07/12/22 05:00 IMPRESSION: Ultrasound confirms a 3.5 cm heterogeneous hypoechoic mass possibly consistent with a hematoma. Electronically Signed: Dallas Martinez MD at 9:57 EST , Physical Exam Const alert and no apparent distress Constitutional Narrative: Oriented HEENT normocephalic and head/scalp atraumatic Eyes Eyes Narrative: EOM grossly intact, anicteric Neck supple Resp normal respiratory effort Resp Narrative: Somewhat diminished at the bases Cardio regular rate GI soft to palpation, non-tender and non-distended Extremity Extremity Narrative: No edema appreciated, has domed area of bruise on left outer calf which is roughly the same as yesterday Neuro moves all extremities Neuro Narrative: No overt focal deficits appreciated Psych Psych Narrative: Cooperative Assessment & Plan Assessment/Plan (1) Acute exacerbation of COPD with asthma: PLAN: Plan #Acute exacerbation of COPD Chest x-ray on admission no active disease Is slowly improving Scheduled duo nebs with albuterol as needed Continue Solu-Medrol and azithromycin BiPAP as needed was able to maintain sats off of it with O2 in place this morning 07/11: Continues to improve, will change steroids to oral 07/12: Waxes and wanes, overall is not still improving however, moving closer to discharge, Continue p.o. steroids #Left calve hematoma Marked presently Awaiting ultrasound Is mobile, not fixed, does not seem to be more painful than surrounding tissue per se, not tense Continue to monitor and await ultrasound 07/11: Still awaiting ultrasound, now with supratherapeutic INR so holding Coumadin today 07/12:Ultrasound of leg suggestive of hematoma, appears roughly unchanged from yesterday,No significant Change in tenderness, We will keep close eye on this and if needed can consult vascular though low suspicion that will be necessary #Elevated troponin For his troponin 65 then 110 then 70 Likely from demand ischemia Does follow with cardiology as an outpatient #History of VTE and atrial fibrillation INR has been therapeutic, today is 3.6 this is above range Will decrease Coumadin dose Trend PT/INR 07/11: Continues to rise, holding Coumadin dose today 07/12: We will continue to monitor INR and adjust Coumadin dosing #Heart failure with preserved ejection fraction Cardiogram on 09/04/2019 showed estimated ejection fraction of 65%.? Diastolic function could not be assessed due to arrhythmia. Continue Lasix #Hypertension On Lasix and acetazolamide #DVT ppx: Therapeutic on Coumadin Kami Hill MD Charges/Coding Visit Charges Inpatient E&M: 54537 Subs Hosp L2
[2022-07-12] MEDS: Docusate Sodium 100 MG Capsule PO (21:02)
[2022-07-12] MEDS: busPIRone 5 MG Tablet 2.5 MG PO (21:03)
[2022-07-12] MEDS: LORazepam 0.5 MG Tablet PO (21:03)
[2022-07-13] VITALS (11 sets, daily range): BP systolic 125–157; BP diastolic 64–90; PULSE 60–61; RESP 12–22; TEMP 36.2–36.8; O2SAT 94–100
[2022-07-13] MEDS: Acetaminophen 325 MG Tablet 650 MG PO ×2 (05:43→14:25)
[2022-07-13] MEDS: Ipratropium/Albuterol Sulfate 3 ML AMPUL.NEB INHALATION ×3 (06:58→14:40)
--- NOTE | 2022-07-13 08:05 | NURSING ---
Emergency documentation in effect per Ton discharge rn nurse
[2022-07-13 08:30] LABS: Absolute Lymphocyte Count 1.96 X10^3/uL (0.83-4.51); Absolute Neutrophil Count 4.7 X10^3/uL (2.0-7.7); Basophil# 0.01 X10^3/uL; Basophil% 0.1 % (0-1); Eosinophil# 0.05 X10^3/uL; Eosinophils% 0.7 % (0-5); Hematocrit 42.3 % (37-47); Hemoglobin 12.6 g/dL (12.0-15.0); Lymphocyte # 1.96 X10^3/ul (0.83-4.51); Lymphocyte % 26.3 % (19-41); Mean Corp Hgb Conc 29.8 g/dL (32-36); Mean Corpuscular Hgb 28.8 pg (27.0-32.0); Mean Corpuscular Volume 96.6 fL (81-99); Mean Platelet Vol. 13.3 fl (6.2-12.0); Monocyte# 0.71 X10^3/uL; Monocyte% 9.5 % (0-10); NRBC Flagged by Analyzer 0 % (0-5); Neutrophil # 4.68 X10^3/uL (2.7-7.7); POSITIVE MORPHOLOGY YES; Platelet Count 164 K/mm3 (150-450); RBC Distribution Width CV 14.9 % (11.6-14.6); RBC Distribution Width SD 53.4 fl (35.1-43.9); Red Blood Count 4.38 M/mm3 (4.2-5.4); White Blood Count 7.4 K/mm3 (4.4-11.0)
[2022-07-13 08:47] LABS: Differential Indicated SCAN CRITERIA MET
[2022-07-13 08:57] LABS: ALB/GLOB Ratio 0.8 RATIO (0.9-2.4); AST(SGOT) 43 U/L (15-37); Alanine Aminotransfer ALT/SGPT 50 U/L (13-56); Alkaline Phosphatase 105 U/L (45-117); Anion Gap 3 (5-15); BUN 30 mg/dL (7-18); BUN/Creat Ratio 55.2 RATIO (10-20); Calcium,Total 9.2 mg/dL (8.5-10.1); Chloride 110 mmol/L (98-107); Creatinine, Serum 0.54 mg/dL (0.55-1.02); EST Glomerular Filtration Rate 115 mL/min (>60); Est Glom Filt Rate - Afr Amer 139 mL/min (>60); Estimated Creatinine Clearance 45.09 ml/min; Globulin 3.7 g/dL (2.2-4.2); Glucose 86 mg/dL (74-106); Potassium 3.9 mmol/L (3.5-5.1); Protein, Total 6.7 g/dL (6.4-8.2); Sodium Level 145 mmol/L (136-145)
[2022-07-13 09:37] LABS: International Normalized Ratio 2.6; Prothrombin Time (Protime)PT. 27.9 SECONDS (11.7-14.9)
[2022-07-13] MEDS: predniSONE 20 MG Tablet 40 MG PO (09:37)
[2022-07-13] MEDS: Furosemide 20 MG Tablet PO (09:37)
[2022-07-13] MEDS: AcetaZOLAMIDE 250 MG Tablet PO ×2 (09:37→16:20)
[2022-07-13] MEDS: Docusate Sodium 100 MG Capsule PO (09:37)
[2022-07-13] MEDS: Potassium Chloride Oral Tablet 20 MEQ PO (09:37)
[2022-07-13] MEDS: Cyanocobalamin 500 MCG Tablet PO (09:37)
[2022-07-13] MEDS: Multivitamin (Healthy Eyes) Capsule 1 CAP PO (09:37)
[2022-07-13] MEDS: Pantoprazole Sodium 20 MG Tablet PO (09:37)
[2022-07-13] MEDS: Citalopram 20 MG Tablet PO (09:37)
[2022-07-13 10:02] LABS: Differential Comment SCANNED; Reactive Lymphocyte 1+
--- NOTE | 2022-07-13 13:29 | PCM.TXEXTCAR ---
Diet Diet Order/Speech Therapy: 07/09/22 02:36 Diet: Cardiac - Heart Healthy Food consistency:: Regular Liquid Consistency:: Regular/Thin Routine Orders/Code Status Suppository Type: Dulcolax 10mg Suppository Frequency: Daily PRN O2 Liters per Minute: 2 O2 Frequency: Continuous Keep PO Greater than or Equal to (%): 92 Routine Lab Work: INR (in 2 days) Therapies Physical Therapy: Eval and Treat Occupational Therapy: Eval and Treat Problem/Diagnosis (1) Acute exacerbation of COPD with asthma: Status: Acute Code(s): J44.1 - Chronic obstructive pulmonary disease with (acute) exacerbation; J45.901 - Unspecified asthma with (acute) exacerbation Plan #Acute exacerbation of COPD #Left calve hematoma #Elevated troponin #History of VTE and atrial fibrillation #Heart failure with preserved ejection fraction #Hypertension BERTO SIMPSON, is a 76 F??with a significant history of atrial fibrillation; hypertension; COPD with pulmonary hypertension on nightly BiPAP and [id number] 2 L nasal cannula oxygen?who presented to the emergency department 07/09/22 with shortness of breath and nonproductive cough. She is requiring increased nasal cannula and more frequent BiPAP and also had a slightly elevated troponin. Chest x-ray did not reveal any infiltrates, she was placed on duo nebs and Solu-Medrol. Lasix were continued as was Coumadin, INR was therapeutic. Troponin elevation was mild and she did not report cardiac complaints, this is felt to be type II. She slowly improved and finished her azithromycin course and Solu-Medrol was changed to oral prednisone. Was no longer dependent on BiPAP and was back to 2 L of nasal cannula. During her hospital stay she also did develop a supratherapeutic INR of 4.4 on home dose of Coumadin. 2 doses were held and recommend starting back at 4 mg daily though this will be left to the discretion of the prescribing physician. We will need to continue to monitor INR. Of note she had a left calf domed hematoma that did have some surrounding extension when her INR was supratherapeutic, when it normalized the area was stable. Soft tissue ultrasound was performed and shows a 3.5 cm heterogenous hypoechoic mass possibly consistent with a hematoma. As it stabilized and there were no significant problems it was felt that this could be monitored as an outpatient for resolution. Instructions provided as below: ?Your INR went up to 4.4 during your admission on your home regimen.? You had 2 doses held with improvement.? Given the elevation it is recommended your weekly dose is decreased by 3 mg total which would mean you would take 4 mg daily.? This will be your discharge regimen but ultimately this is up to the discretion of your prescribing physician.? Would recommend continuing routine INR monitoring with an INR in 2 days and further adjustment per discretion of provider. ?You were noted to have a large domed hematoma on your left calf which expanded slightly when your INR was supratherapeutic but stabilized upon normalization.? Recommend warm compresses and continued monitoring to assess for improvement/resolution. ?Continue to use BiPAP nightly and as needed as well as here 2 L of home O2 ?Continue your albuterol as needed, may benefit from increasing home nebulizers to 4 times a day until respiratory status improves ?Recommend taking 3 more days of 40 mg of prednisone for your breathing. -Please call your primary care provider's office upon discharge to schedule a hospital follow up within 1 week. -For any concerning signs or symptoms please call 911 or proceed to the nearest emergency department Allergies/Procedures Done in Hospital Allergies amlodipine besylate [From [facility]] Adverse Reaction (Verified 07/08/22 22:00) ANKLE AND LEG EDEMA RESOLVED OFF MED-PER PCP PAPERWORK codeine Adverse Reaction (Verified 07/08/22 22:00) MENTAL STATUS CHANGE lisinopril Adverse Reaction (Verified 07/08/22 22:00) COUGH Procedures: None Type of Care/Length of Stay Estimated LOS: More Than 30 Days Type of Care Needed: Skilled Rehab Potential: Fair Prognosis: Fair Additional Orders/Day of Discharge Day of Discharge: 07/13/22 Dietary and Speech Recommendations Dietitian Recommendations/Changes: Continue Cardiac diet to help manage blood pressures Discharge Plan Admission Admit Date/Time: 07/09/22 01:18 Primary Reason for Your Visit: Shortness of breath Attending Provider: Kami Hill Primary Care Provider: Tor Lucia Consulting Providers: Paulo Mota Instructions Patient Instructions: Asthma and COPD Additional Instructions / Restrictions: DISCHARGE INSTRUCTIONS, PLEASE READ ?Your INR went up to 4.4 during your admission on your home regimen. You had 2 doses held with improvement. Given the elevation it is recommended your weekly dose is decreased by 3 mg total which would mean you would take 4 mg daily. This will be your discharge regimen but ultimately this is up to the discretion of your prescribing physician. Would recommend continuing routine INR monitoring with an INR in 2 days and further adjustment per discretion of provider. ?You were noted to have a large domed hematoma on your left calf which expanded slightly when your INR was supratherapeutic but stabilized upon normalization. Recommend warm compresses and continued monitoring to assess for improvement/resolution. ?Continue to use BiPAP nightly and as needed as well as here 2 L of home O2 ?Continue your albuterol as needed, may benefit from increasing home nebulizers to 4 times a day until respiratory status improves ?Recommend taking 3 more days of 40 mg of prednisone for your breathing. -Please call your primary care provider's office upon discharge to schedule a hospital follow up within 1 week. -For any concerning signs or symptoms please call 911 or proceed to the nearest emergency department Discharge Orders/Prescriptions Prescriptions: New prednisone 20 mg Tablet 40 mg PO BREAKFAST 3 Days Qty: 6 0RF Continued lorazepam 0.5 mg tablet 0.5 mg PO QHS Biofreeze (menthol) 4 % gel 1 applic topical BID PRN (Reason: Pain) buspirone 5 mg tablet 2.5 mg PO QHS sodium phosphates 19-7 gram/118 mL enema 118 ml TX DAILY PRN (Reason: Constipation) furosemide 20 mg tablet 20 mg PO DAILY potassium chloride 20 mEq tablet extended release 20 meq PO DAILY cholecalciferol (vitamin D3) 125 mcg (5,000 unit) tablet 125 mcg PO TH citalopram 40 MG tablet 20 mg PO DAILY Label Comments: TAKE ONE TABLET BY MOUTH EVERY DAY hot flashes omeprazole 20 MG tablet,delayed release (DR/EC) 20 mg PO DAILY budesonide 0.25 mg/2 mL suspension for nebulization 0.25 mg inhalation BID sennosides-docusate sodium 1 EACH tablet 2 tab PO QHS acetazolamide 250 MG tablet 250 mg PO BID cyanocobalamin (vitamin B-12) 500 MCG tablet 500 mcg PO DAILY Lactobacillus acidophilus 1 EACH capsule 1 cap PO DAILY albuterol sulfate 2.5 MG/3 ML solution for nebulization 2.5 mg INHALATION Q2H PRN PRN (Reason: Shortness of Breath/Wheezing) 0RF docusate sodium 100 MG capsule 100 mg PO BID 0RF ondansetron HCl 4 mg Tablet 4 mg PO Q4H PRN (Reason: Nausea) bisacodyl [Dulcolax (bisacodyl)] 10 mg Suppository 10 mg TX DAILY PRN (Reason: Constipation) PreserVision AREDS-2 250-90-40-1 mg Capsule 1 tab PO BID magnesium hydroxide [Milk of Magnesia] 400 mg/5 mL suspension 30 ml PO DAILY PRN (Reason: Constipation) guaifenesin [Tussin] 100 mg/5 mL Liquid 200 mg PO Q6H PRN (Reason: Cough) acetaminophen 500 mg Capsule 1,000 mg PO Q8H PRN (Reason: Pain) menthol 4 % Cream 1 applic TOPICAL Q2H PRN PRN (Reason: Pain) Hemorrhoidal (phenyleph-fat) 0.25-88.7 % Suppository 1 supp TX Q6H PRN PRN (Reason: Hemorrhoids) albuterol sulfate [Ventolin HFA] 90 mcg/actuation HFA aerosol inhaler 2 puff inhalation Q4H PRN PRN (Reason: Wheezing) Qty: 1 0RF Changed ipratropium-albuterol 0.5 mg-3 mg(2.5 mg base)/3 mL Solution For Nebulization 3 ml inhalation Q6H Qty: 0 0RF warfarin 4 mg Tablet 4 mg PO DAILY 30 Days Qty: 30 0RF Discontinued acetaminophen 325 MG tablet 650 mg PO TID warfarin [Coumadin] 5 mg Tablet See Rx Instructions .ROUTE .COMPLEX Rx Instructions: 5 mg orally, EVERY MON, WED,FRI, Referrals / Follow Up: Tor Lucia MD [Primary Care Provider] - Within 1 Week Disposition Disposition (needs filled in before D/C Order can be placed): [facility] Facility
--- NOTE | 2022-07-13 13:59 | DS.PCM_ITS ---
Providers Date of Admission: 07/09/22 Date of Discharge: 07/13/22 Primary Care Physician: Dr. Tor Lucia MD Reason For Visit: ACUTE EXACERBATION OF COPD Diagnosis Discharge Diagnosis (1) Acute exacerbation of COPD with asthma: Status: Acute Code(s): J44.1 - Chronic obstructive pulmonary disease with (acute) exacerbation; J45.901 - Unspecified asthma with (acute) exacerbation Plan #Acute exacerbation of COPD #Left calve hematoma #Elevated troponin #History of VTE and atrial fibrillation #Heart failure with preserved ejection fraction #Hypertension Medications at Discharge Home Medications citalopram 40 mg tablet 20 mg PO DAILY DEPRESSION 05/23/18 omeprazole 20 mg tablet,delayed release 20 mg PO DAILY GERD 01/17/19 sennosides 8.6 mg-docusate sodium 50 mg tablet 2 tab PO QHS CONSTIPATION 08/22/19 Lactobacillus acidophilus 1 cap PO DAILY IMMUNE HEALTH 08/20/20 acetazolamide 250 mg tablet 250 mg PO BID EDEMA 08/20/20 cyanocobalamin (vitamin B-12) 500 mcg tablet 500 mcg PO DAILY SUPPLEMENT 08/20/20 albuterol sulfate 2.5 mg/3 mL (0.083 %) solution for nebulization 2.5 mg (3 mL) inhalation Q2H PRN PRN Shortness of Breath/Wheezing 09/05/20 docusate sodium 100 mg capsule 100 mg PO BID 09/05/20 lorazepam 0.5 mg tablet 0.5 mg PO QHS ANXIETY 10/28/20 bisacodyl 10 mg rectal suppository (Dulcolax (bisacodyl)) 10 mg AR DAILY PRN Constipation 07/14/21 ondansetron HCl 4 mg tablet 4 mg PO Q4H PRN Nausea 07/14/21 vit C 250 mg-vit E 90 mg-zinc 40 mg-copper 1 [id number] capsule (PreserVision AREDS-2) 1 tab PO BID 07/14/21 budesonide 0.25 mg/2 mL suspension for nebulization 0.25 mg inhalation BID COPD 01/14/22 buspirone 5 mg tablet 2.5 mg PO QHS 01/14/22 cholecalciferol (vitamin D3) 125 mcg (5,000 unit) tablet 125 mcg PO TH 01/14/22 furosemide 20 mg tablet 20 mg PO DAILY 01/14/22 magnesium hydroxide 400 mg/5 mL oral suspension (Milk of Magnesia) 30 ml PO DAILY PRN Constipation 01/14/22 menthol 4 % topical gel (Biofreeze (menthol)) 1 applic topical BID PRN Pain 01/14/22 potassium chloride 20 mEq tablet,extended release 20 meq PO DAILY 01/14/22 sodium phosphates 19 gram-7 gram/118 mL enema 118 ml AR DAILY PRN Constipation 01/14/22 acetaminophen 500 mg capsule 1,000 mg PO Q8H PRN Pain 04/14/22 albuterol sulfate 90 mcg/actuation aerosol inhaler (Ventolin HFA) 2 puff inhalation Q4H PRN PRN Wheezing ##1 04/14/22 guaifenesin 100 mg/5 mL oral liquid (Tussin) 200 mg PO Q6H PRN Cough 04/14/22 menthol 4 % topical cream 1 applic topical Q2H PRN PRN Pain 04/14/22 phenylephrine 0.25 %-hard fat 88.7 % rectal suppository (Hemorrhoidal (phenylephrine-hard fat)) 1 supp AR Q6H PRN PRN Hemorrhoids 04/14/22 ipratropium 0.5 mg-albuterol 3 mg (2.5 mg base)/3 mL nebulization soln 3 ml inhalation Q6H #0 mL 07/13/22 prednisone 20 mg tablet 40 mg PO BREAKFAST 3 days #6 tabs 07/13/22 warfarin 4 mg tablet 4 mg PO DAILY 30 days #30 tabs 07/13/22 Hospital Course Procedures - (Soft tissue ultrasound) Summary of Care Provided Minutes Spent on Discharge: 35 Hospital Course: BERTO SIMPSON, is a 76 F??with a significant history of atrial fibrillation; hypertension; COPD with pulmonary hypertension on nightly BiPAP and [id number] 2 L nasal cannula oxygen?who presented to the emergency department 07/09/22 with shortness of breath and nonproductive cough. She is requiring increased nasal cannula and more frequent BiPAP and also had a slightly elevated troponin. Chest x-ray did not reveal any infiltrates, she was placed on duo nebs and Solu-Medrol. Lasix were continued as was Coumadin, INR was therapeutic. Troponin elevation was mild and she did not report cardiac complaints, this is felt to be type II. She slowly improved and finished her azithromycin course and Solu-Medrol was changed to oral prednisone. Was no telma karri dependent on BiPAP and was back to 2 L of nasal cannula. During her hospital stay she also did develop a supratherapeutic INR of 4.4 on home dose of Coumadin. 2 doses were held and recommend starting back at 4 mg daily though this will be left to the discretion of the prescribing physician. We will need to continue to monitor INR. Of note she had a left calf domed hematoma that did have some surrounding extension when her INR was supratherapeutic, when it normalized the area was stable. Soft tissue ultrasound was performed and shows a 3.5 cm heterogenous hypoechoic mass possibly consistent with a hematoma. As it stabilized and there were no significant problems it was felt that this could be monitored as an outpatient for resolution. Instructions provided as below: ?Your INR went up to 4.4 during your admission on your home regimen.? You had 2 doses held with improvement.? Given the elevation it is recommended your weekly dose is decreased by 3 mg total which would mean you would take 4 mg daily.? This will be your discharge regimen but ultimately this is up to the discretion of your prescribing physician.? Would recommend continuing routine INR monitoring with an INR in 2 days and further adjustment per discretion of provider. ?You were noted to have a large domed hematoma on your left calf which expanded slightly when your INR was supratherapeutic but stabilized upon normalization.? Recommend warm compresses and continued monitoring to assess for improvement/res olution. ?Continue to use BiPAP nightly and as needed as well as here 2 L of home O2 ?Continue your albuterol as needed, may benefit from increasing home nebulizers to 4 times a day until respiratory status improves ?Recommend taking 3 more days of 40 mg of prednisone for your breathing. -Please call your primary care provider's office upon discharge to schedule a hospital follow up within 1 week. -For any concerning signs or symptoms please call 911 or proceed to the nearest emergency department Physical Exam Const alert and no apparent distress Constitutional Narrative: Oriented HEENT normocephalic and head/scalp atraumatic Eyes Eyes Narrative: EOM grossly intact, anicteric Neck supple Resp normal respiratory effort Resp Narrative: Somewhat diminished at the bases Cardio regular rate GI soft to palpation, non-tender and non-distended Extremity Extremity Narrative: No edema appreciated, has domed area of bruise on left outer calf which is roughly the same as yesterday Neuro moves all extremities Neuro Narrative: No overt focal deficits appreciated Psych Psych Narrative: Cooperative Weight / BMI Weight Weight: 72.7 kg Body Mass Index (BMI) 25.1 ABG / Lab / Microbiology Data Result Diagrams: 07/13/22 07:35 07/13/22 07:35 Laboratory: Laboratory Results - last 24 hr 07/13/22 07:35: WBC 7.4, RBC 4.38, Hgb 12.6, Hct 42.3, MCV 96.6, MCH 28.8, MCHC 29.8 L, RDW Std Deviation 53.4 H, RDW Coeff of Laura 14.9 H, Plt Count 164, MPV 13.3 H, Immature Gran % (Auto) 0.400, Neut % (Auto) 63.0, Lymph % (Auto) 26.3, Rabun % (Auto) 9.5, Eos % (Auto) 0.7, Baso % (Auto) 0.1, Absolute Neuts (auto) 4.7, Absolute Lymphs (auto) 1.96, Nucleated RBC % 0, Differential Comment SCANNED, Reactive Lymphocytes 1+ 07/13/22 07:35: PT 27.9 H, INR 2.6 07/13/22 07:35: Sodium 145, Potassium 3.9, Chloride 110 H, Carbon Dioxide 32.0, Anion Gap 3 L, BUN 30 H, Creatinine 0.54 L, Estim Creat Clear Calc 45.09, Est GFR (MDRD) Af Amer 139, Est GFR (MDRD) Non-Af 115, BUN/Creatinine Ratio 55.2 H, Glucose 86, Calcium 9.2, Total Bilirubin 1.00, AST 43 H, ALT 50, Alkaline Phosphatase 105, Total Protein 6.7, Albumin 3.0 L, Globulin 3.7, Albumin/Globulin Ratio 0.8 L D/C Instructions Discharge Diet: No restrictions Discharge Activity: Return to Normal Activity Meaningful Use Info Meaningful Use Diagnoses (Choose all that apply): None applicable Discharge Plan Admission Admit Date/Time: 07/09/22 01:18 Primary Reason for Your Visit: Shortness of breath Attending Provider: Kami Hill Primary Care Provider: Tor Lucia Consulting Providers: Paulo Mota Instructions Patient Instructions: Asthma and COPD Additional Instructions / Restrictions: DISCHARGE INSTRUCTIONS, PLEASE READ ?Your INR went up to 4.4 during your admission on your home regimen. You had 2 doses held with improvement. Given the elevation it is recommended your weekly dose is decreased by 3 mg total which would mean you would take 4 mg daily. T his will be your discharge regimen but ultimately this is up to the discretion of your prescribing physician. Would recommend continuing routine INR monitoring with an INR in 2 days and further adjustment per discretion of provider. ?You were noted to have a large domed hematoma on your left calf which expanded slightly when your INR was supratherapeutic but stabilized upon normalization. Recommend warm compresses and continued monitoring to assess for improvement/resolution. ?Continue to use BiPAP nightly and as needed as well as here 2 L of home O2 ?Continue your albuterol as needed, may benefit from increasing home nebulizers to 4 times a day until respiratory status improves ?Recommend taking 3 more days of 40 mg of prednisone for your breathing. -Please call your primary care provider's office upon discharge to schedule a hospital follow up within 1 week. -For any concerning signs or symptoms please call 911 or proceed to the nearest emergency department Discharge Orders/Prescriptions Prescriptions: New prednisone 20 mg Tablet 40 mg PO BREAKFAST 3 Days Qty: 6 0RF Continued lorazepam 0.5 mg tablet 0.5 mg PO QHS Biofreeze (menthol) 4 % gel 1 applic topical BID PRN (Reason: Pain) buspirone 5 mg tablet 2.5 mg PO QHS sodium phosphates 19-7 gram/118 mL enema 118 ml AR DAILY PRN (Reason: Constipation) furosemide 20 mg tablet 20 mg PO DAILY potassium chloride 20 mEq tablet extended release 20 meq PO DAILY cholecalciferol (vitamin D3) 125 mcg (5,000 unit) tablet 125 mcg PO TH citalopram 40 MG tablet 20 mg PO DAILY Label Comments: TAKE ONE TABLET BY MOUTH EVERY DAY hot flashes omeprazole 20 MG tablet,delayed release (DR/EC) 20 mg PO DAILY budesonide 0.25 mg/2 mL suspension for nebulization 0.25 mg inhalation BID sennosides-docusate sodium 1 EACH tablet 2 tab PO QHS acetazolamide 250 MG tablet 250 mg PO BID cyanocobalamin (vitamin B-12) 500 MCG tablet 500 mcg PO DAILY Lactobacillus acidophilus 1 EACH capsule 1 cap PO DAILY albuterol sulfate 2.5 MG/3 ML solution for nebulization 2.5 mg INHALATION Q2H PRN PRN (Reason: Shortness of Breath/Wheezing) 0RF docusate sodium 100 MG capsule 100 mg PO BID 0RF ondansetron HCl 4 mg Tablet 4 mg PO Q4H PRN (Reason: Nausea) bisacodyl [Dulcolax (bisacodyl)] 10 mg Suppository 10 mg AR DAILY PRN (Reason: Constipation) PreserVision AREDS-2 250-90-40-1 mg Capsule 1 tab PO BID magnesium hydroxide [Milk of Magnesia] 400 mg/5 mL suspension 30 ml PO DAILY PRN (Reason: Constipation) guaifenesin [Tussin] 100 mg/5 mL Liquid 200 mg PO Q6H PRN (Reason: Cough) acetaminophen 500 mg Capsule 1,000 mg PO Q8H PRN (Reason: Pain) menthol 4 % Cream 1 applic TOPICAL Q2H PRN PRN (Reason: Pain) Hemorrhoidal (phenyleph-fat) 0.25-88.7 % Suppository 1 supp AR Q6H PRN PRN (Reason: Hemorrhoids) albuterol sulfate [Ventolin HFA] 90 mcg/actuation HFA aerosol inhaler 2 puff inhalation Q4H PRN PRN (Reason: Wheezing) Qty: 1 0RF Changed ipratropium-albuterol 0.5 mg-3 mg(2.5 mg base)/3 mL Solution For Nebulization 3 ml inhalation Q6H Qty: 0 0RF warfarin 4 mg Tablet 4 mg PO DAILY 30 Days Qty: 30 0RF Discontinued acetaminophen 325 MG tablet 650 mg PO TID warfarin [Coumadin] 5 mg Tablet See Rx Instructions .ROUTE .COMPLEX Rx Instructions: 5 mg orally, EVERY MON, WED,FRI, Referrals / Follow Up: Tor Lucia MD [Primary Care Provider] - Within 1 Week Disposition Disposition (needs filled in before D/C Order can be placed): [facility] Charges/Coding Visit Charges Inpatient E&M: 06990 Disch Hosp
--- NOTE | 2022-07-13 14:09 | CASEMGMT ---
Social Work Notified by Dr. Hill that patient is medically cleared. This social contact worker updated patient on above information. Patient is agreeable to plan for patient to return to [facility] and continued long-term care there. This social contact worker inquired about transportation. Patient reports that patient daughter is able to transport patient back to [facility]. Telephone call to patient daughter, Irene. Irene is agreeable to above information and plans to provide transportation for patient to the [facility] around 5:00pm today. This social contact worker updated medical team. Discharge strategic planning director, Brit provided with signed medication list and transfer to extended care form. Brit sent discharge information to the [facility] and notified the [facility] that patient is medically cleared for discharge today. Proposed discharge date: 07/13/2022 PLAN: [facility], intermediate level of care. Monisha ANDERSON, TRINI
--- NOTE | 2022-07-13 14:12 | CASEMGMT ---
Discharge Pet Handler D/c orders sent to the [facility] via [facility]. Patient daughter will pick patient up around 5:00pm. Nursing staff made aware. Deisi ZABALA [facility]
--- NOTE | 2022-07-13 17:40 | NURSING ---
Daughter of pt given snf transfer/DC packet to take to snf with pt
--- NOTE | 2022-07-13 17:48 | NURSING ---
Report called to nurse Honey at the [facility], will assume care of pt when she returns
== END 2022-07-13 17:40 | DRG 190 ==
LOC: ED 07-09 01:19 → PCU 07-09 05:34
PROVIDERS: Admitting Provider Hospitalist; Emergency Provider Emergency Medicine; PCP Family Medicine; Visit Provider Internal Medicine
DX: J44.1 Chronic obstructive pulmonary disease with (acute) exacerbation (principal); J96.22 Acute and chronic respiratory failure with hypercapnia; J96.21 Acute and chronic respiratory failure with hypoxia; I21.A1 Myocardial infarction type 2; I50.32 Chronic diastolic (congestive) heart failure; J45.901 Unspecified asthma with (acute) exacerbation; I11.0 Hypertensive heart disease with heart failure; I48.91 Unspecified atrial fibrillation; E78.5 Hyperlipidemia, unspecified; S80.12XA Contusion of left lower leg, initial encounter; X58.XXXA Exposure to other specified factors, initial encounter; Z66 Do not resuscitate; Z95.0 Presence of cardiac pacemaker; Z99.81 Dependence on supplemental oxygen; Z79.01 Long term (current) use of anticoagulants; Z79.899 Other long term (current) drug therapy; Z86.711 Personal history of pulmonary embolism; Z86.718 Personal history of other venous thrombosis and embolism; Z87.891 Personal history of nicotine dependence
CPT/HCPCS: 36415; 71045; 76882; 80048; 80053; 82962; 83735; 83880; 84484; 85025; 85610; 85730; 87426; 93005; 94002; 94003; 94640; 94762; 97110; 97162; 97166; 99251; 99285; J7040; A4216; G0463; J2405

== ENCOUNTER 2022-07-26 19:06 | Emergency (ER) | payer MEDICARE, MEDICAID, SELFPAY ==
[2022-07-26 19:07] VITALS: BP 113/71; PULSE 60; RESP 15; TEMP 36.4; O2SAT 99; BMI 23.5
[2022-07-26 20:39] VITALS: BP 113/71; PULSE 60; RESP 15; TEMP 36.4; O2SAT 99
[2022-07-26 21:07] VITALS: PULSE 76; RESP 18; O2SAT 100
--- NOTE | 2022-07-26 21:14 | ED.VIS.LOWEX ---
HPI History of Present Illness Chief Complaint: Other, Pain/Inj Narrative Narrative: 76-year-old female presenting with hematoma on the left lower leg. Patient is on Coumadin for history of A. fib and PEs. She states she believes has been therapeutic. The hematoma has been here on the left lower leg since her recent hospitalization. She did have an ultrasound study of this and there was no blood clot. They were told her then that it was a hematoma. She states has been present there since. It is a little bit tender. It has not significantly grown. They do note that there is more edema below the level of this in the left foot and left lower leg. They also state that there is a little bit of redness. Patient's family states that it feels warm. PFSH [facility] Medical History Atrial fibrillation AV block, complete BiPAP (biphasic positive airway pressure) dependence COPD (chronic obstructive pulmonary disease) Dyslipidemia Elevated troponin Essential hypertension Essential hypertension Former tobacco use Heart failure with preserved ejection fraction History of DVT (deep vein thrombosis) History of pulmonary embolus (PE) Presence of permanent cardiac pacemaker (~10/12/20) Pulmonary HTN Sleep apnea Tachycardia-bradycardia syndrome Venous insufficiency Wound abscess Home Medications citalopram 40 mg tablet 20 mg PO DAILY DEPRESSION 05/23/18 [History Last Taken 09/01/20 10:44] omeprazole 20 mg tablet,delayed release 20 mg PO DAILY GERD 01/17/19 [History Last Taken 09/01/20 10:44] sennosides 8.6 mg-docusate sodium 50 mg tablet 2 tab PO QHS CONSTIPATION 08/22/19 [History Last Taken 08/31/20 20:26] Lactobacillus acidophilus 1 cap PO DAILY IMMUNE HEALTH 08/20/20 [History Last Taken 09/01/20 10:42] acetazolamide 250 mg tablet 250 mg PO BID EDEMA 08/20/20 [History Last Taken 09/01/20 08:00] cyanocobalamin (vitamin B-12) 500 mcg tablet 500 mcg PO DAILY SUPPLEMENT 08/20/20 [History Last Taken 09/01/20 10:44] albuterol sulfate 2.5 mg/3 mL (0.083 %) solution for nebulization 2.5 mg (3 mL) inhalation Q2H PRN PRN Shortness of Breath/Wheezing 09/05/20 [Rx Last Taken Unknown] docusate sodium 100 mg capsule 100 mg PO BID 09/05/20 [Rx Last Taken Unknown] lorazepam 0.5 mg tablet 0.5 mg PO QHS ANXIETY 10/28/20 [History Last Taken Unknown] bisacodyl 10 mg rectal suppository (Dulcolax (bisacodyl)) 10 mg NJ DAILY PRN Constipation 07/14/21 [History Last Taken Unknown] ondansetron HCl 4 mg tablet 4 mg PO Q4H PRN Nausea 07/14/21 [History Last Taken Unknown] vit C 250 mg-vit E 90 mg-zinc 40 mg-copper 1 [id number] capsule (PreserVision AREDS-2) 1 tab PO BID 07/14/21 [History Last Taken Unknown] budesonide 0.25 mg/2 mL suspension for nebulization 0.25 mg inhalation BID COPD 01/14/22 [History Last Taken Unknown] buspirone 5 mg tablet 2.5 mg PO QHS 01/14/22 [History Last Taken Unknown] cholecalciferol (vitamin D3) 125 mcg (5,000 unit) tablet 125 mcg PO TH 01/14/22 [History Last Taken Unknown] furosemide 20 mg tablet 20 mg PO DAILY 01/14/22 [History Last Taken Unknown] magnesium hydroxide 400 mg/5 mL oral suspension (Milk of Magnesia) 30 ml PO DAILY PRN Constipation 01/14/22 [History Last Taken Unknown] menthol 4 % topical gel (Biofreeze (menthol)) 1 applic topical BID PRN Pain 01/14/22 [History Last Taken Unknown] potassium chloride 20 mEq tablet,extended release 20 meq PO DAILY 01/14/22 [History Last Taken Unknown] sodium phosphates 19 gram-7 gram/118 mL enema 118 ml NJ DAILY PRN Constipation 01/14/22 [History Last Taken Unknown] acetaminophen 500 mg capsule 1,000 mg PO Q8H PRN Pain 04/14/22 [History Last Taken Unknown] albuterol sulfate 90 mcg/actuation aerosol inhaler (Ventolin HFA) 2 puff inhalation Q4H PRN PRN Wheezing ##1 04/14/22 [Rx Last Taken Unknown] guaifenesin 100 mg/5 mL oral liquid (Tussin) 200 mg PO Q6H PRN Cough 04/14/22 [History Last Taken Unknown] menthol 4 % topical cream 1 applic topical Q2H PRN PRN Pain 04/14/22 [History Last Taken Unknown] phenylephrine 0.25 %-hard fat 88.7 % rectal suppository (Hemorrhoidal (phenylephrine-hard fat)) 1 supp NJ Q6H PRN PRN Hemorrhoids 04/14/22 [History Last Taken Unknown] ipratropium 0.5 mg-albuterol 3 mg (2.5 mg base)/3 mL nebulization soln 3 ml inhalation Q6H #0 mL 07/13/22 [Rx Last Taken Unknown] warfarin 4 mg tablet 4.5 mg PO DAILY 07/26/22 [History Last Taken Unknown] Allergy/AdvReac Type Severity Reaction Status Date / Time amlodipine besylate AdvReac ANKLE AND Verified 07/26/22 19:12 [From [facility]] LEG EDEMA codeine AdvReac MENTAL Verified 07/26/22 19:12 STATUS CHANGE lisinopril AdvReac COUGH Verified 07/26/22 19:12 Family History Sister Heart disease Surgical History History of cholecystectomy History of total hysterectomy Hx of atrioventricular node ablation tailbone surgery Social History household members: none housing: care home Smoking Status: Former smoker how long ago did patient quit smoking: Approxiomately 2003 alcohol intake: never substance use type: does not use caffeine: No ROS ROS ED Constitutional Constitutional ED: Denies chills or fever(s) Eyes Eyes: Denies change in vision or diplopia ENT ENT ED: Denies rhinorrhea or sore throat Cardiovascular Cardiovascular: Denies chest pain or palpitations Respiratory/Chest Respiratory/Chest: Denies cough or dyspnea Gastrointestinal Gastrointestinal: Denies abdominal pain, constipation or diarrhea Genitourinary Genitourinary ED: Denies dysuria or hematuria Musculoskeletal Musculoskeletal: Denies arthralgias or back pain Integumentary Reports other Details: Erythema of the lower left foot and lower tibia. There is a hematoma hematoma left lower extremity EXAM Physical Exam Const Vital Signs: 07/26/22 19:07 07/26/22 20:39 Temperature 97.5 F L 97.5 F L Temperature Source Temporal Temporal Pulse Rate 60 60 Respiratory Rate 15 15 Blood Pressure 113/71 113/71 Blood Pressure Mean 85 85 Pulse Ox 99 99 Oxygen Delivery Method Nasal Cannula Nasal Cannula Oxygen Flow Rate (L/min) 2 2 Positive well nourished General Appearance ED: NAD HEENT Reports moist mucous membranes normocephalic and atraumatic Neck full ROM Chest Wall inspection of chest normal and palpation of chest normal Resp normal respiratory effort and no retractions Auscultation: Negative for rales, rhonchi or wheezes Cardio regular rate and regular rhythm GI non-tender Extremity Extremity Narrative: 4 cm hematoma on the left lateral calf with surgical marking around it and it does not extend outside of this. He is minimally tender to palpation. Is not draining. There is no surrounding induration. There is some erythema below the level this into the left left distal tibia and foot which is likely dependent edema. Chronic stasis changes noted to the left lower extremity Neuro oriented x3 and CN's II-XII intact bilaterally Sensorium / Orientation: alert Motor Exam: strength 5/5 throughout Psych mental status grossly normal Skin Skin Narrative: As described above MDM MDM MDM Narrative Medical decision making narrative: Patient presenting with a hematoma on the left leg. She is already had DVT study which showed it is no blood clot. She is on Coumadin and had her INR checked today. I was able to call the care home and was told it was 5.5 today. Although this does not spread outside the markings that are on the leg I suspect that her supratherapeutic INR is making this a little bit worse. I will discuss this with Dr. Hernandes who is on-call for Dr. Lucia. I recommended compression ice, elevation. Patient's daughter states that she can follow-up with the wound care clinic. Dr. Hernandes recommended holding her Coumadin for 3 days. She will make sure Dr. Lucia knows to recheck her INR. She agrees with the plan going forward. Patient discharged home in stable condition. Impression: 1. Left lower extremity hematoma 2. Supratherapeutic Lab Data Attestation: I reviewed the patient's lab results. Discharge Plan Triage Chief Complaint: Other, Pain/Inj ED Provider: Lonnie Pina Dx/Rx/DC Orders Instructions: International Normalized Ratio, ED Hematoma Prescriptions: No Action lorazepam 0.5 mg tablet 0.5 mg PO QHS Biofreeze (menthol) 4 % gel 1 applic topical BID PRN (Reason: Pain) buspirone 5 mg tablet 2.5 mg PO QHS sodium phosphates 19-7 gram/118 mL enema 118 ml NJ DAILY PRN (Reason: Constipation) furosemide 20 mg tablet 20 mg PO DAILY potassium chloride 20 mEq tablet extended release 20 meq PO DAILY cholecalciferol (vitamin D3) 125 mcg (5,000 unit) tablet 125 mcg PO TH citalopram 40 MG tablet 20 mg PO DAILY Label Comments: TAKE ONE TABLET BY MOUTH EVERY DAY hot flashes omeprazole 20 MG tablet,delayed release (DR/EC) 20 mg PO DAILY budesonide 0.25 mg/2 mL suspension for nebulization 0.25 mg inhalation BID sennosides-docusate sodium 1 EACH tablet 2 tab PO QHS acetazolamide 250 MG tablet 250 mg PO BID cyanocobalamin (vitamin B-12) 500 MCG tablet 500 mcg PO DAILY Lactobacillus acidophilus 1 EACH capsule 1 cap PO DAILY albuterol sulfate 2.5 MG/3 ML solution for nebulization 2.5 mg INHALATION Q2H PRN PRN (Reason: Shortness of Breath/Wheezing) 0RF docusate sodium 100 MG capsule 100 mg PO BID 0RF ondansetron HCl 4 mg Tablet 4 mg PO Q4H PRN (Reason: Nausea) bisacodyl [Dulcolax (bisacodyl)] 10 mg Suppository 10 mg NJ DAILY PRN (Reason: Constipation) PreserVision AREDS-2 250-90-40-1 mg Capsule 1 tab PO BID magnesium hydroxide [Milk of Magnesia] 400 mg/5 mL suspension 30 ml PO DAILY PRN (Reason: Constipation) guaifenesin [Tussin] 100 mg/5 mL Liquid 200 mg PO Q6H PRN (Reason: Cough) acetaminophen 500 mg Capsule 1,000 mg PO Q8H PRN (Reason: Pain) menthol 4 % Cream 1 applic TOPICAL Q2H PRN PRN (Reason: Pain) Hemorrhoidal (phenyleph-fat) 0.25-88.7 % Suppository 1 supp NJ Q6H PRN PRN (Reason: Hemorrhoids) albuterol sulfate [Ventolin HFA] 90 mcg/actuation HFA aerosol inhaler 2 puff inhalation Q4H PRN PRN (Reason: Wheezing) Qty: 1 0RF ipratropium-albuterol 0.5 mg-3 mg(2.5 mg base)/3 mL Solution For Nebulization 3 ml inhalation Q6H Qty: 0 0RF warfarin 4 mg tablet 4.5 mg PO DAILY Primary Care Provider: Tor Lucia Referrals: Tor Lucia MD [Primary Care Provider] - Disposition Disposition: Home, Self Care
== END 2022-07-26 21:38 | disposition home or self-care (01) ==
PROVIDERS: Emergency Provider Student in an Organized Health Care Education/Training Program; PCP Family Medicine; Visit Provider Student in an Organized Health Care Education/Training Program
DX: M79.81 Nontraumatic hematoma of soft tissue (principal); J44.9 Chronic obstructive pulmonary disease, unspecified; I11.0 Hypertensive heart disease with heart failure; I50.32 Chronic diastolic (congestive) heart failure; E78.5 Hyperlipidemia, unspecified; R79.1 Abnormal coagulation profile; Z79.01 Long term (current) use of anticoagulants; Z79.899 Other long term (current) drug therapy; Z86.711 Personal history of pulmonary embolism; Z86.718 Personal history of other venous thrombosis and embolism; Z87.891 Personal history of nicotine dependence
CPT/HCPCS: 99283

== ENCOUNTER 2022-08-08 11:15 | Outpatient (RCR) | payer MEDICARE, MEDICAID, SELFPAY ==
[2022-08-01 13:27] VITALS: BP 122/66; PULSE 63; TEMP 36.2; BMI 24.1
--- NOTE | 2022-08-01 15:13 | PCM.WC.HP ---
History of Present Illness Date of Service: 08/01/22 Chief Complaint: Left lateral lower leg hematoma History of Wound: Patient is a 76 year old female who is a resident at [facility]. She has a hematoma on her left lateral lower leg that she is unsure how she acquired it except it occurred when she was hospitalized 07/09/22-07/13/22 for acute exacerbation of COPD. She is on Warfarin for history of Afib and PEs. She was seen in the ED on 07/26/22 for this issue along with it swelling, becoming erythematous a feeling warm, her INR was 5.5 in the ED. She was discharge back to the [facility]. She states that she has been on Doxycycline for this. She has a history of CHF, COPD, Pacemaker, DVT, PE, ANKUSH, chronic anticoagulation and is on home oxygen. Today she denies fever, chills, nausea and vomiting. Progress of Wound: She complains of the hematoma being very painful and does not like it to be palpated. She has not been wearing any compression on it because it is painful. There is no ulcer opening. The area has been marked with a pen and it is stable. [facility] Medical History (Reviewed 08/05/22 @ 16:47 by Salina Duffy [employer], [employer]) Atrial fibrillation AV block, complete BiPAP (biphasic positive airway pressure) dependence COPD (chronic obstructive pulmonary disease) Dyslipidemia Elevated troponin Essential hypertension Essential hypertension Former tobacco use Heart failure with preserved ejection fraction History of DVT (deep vein thrombosis) History of pulmonary embolus (PE) Presence of permanent cardiac pacemaker (~10/12/20) Pulmonary HTN Sleep apnea Tachycardia-bradycardia syndrome Venous insufficiency Wound abscess Home Medications citalopram 40 mg tablet 20 mg PO DAILY DEPRESSION 05/23/18 [History Last Taken 09/01/20 10:44] omeprazole 20 mg tablet,delayed release 20 mg PO DAILY GERD 01/17/19 [History Last Taken 09/01/20 10:44] sennosides 8.6 mg-docusate sodium 50 mg tablet 2 tab PO QHS CONSTIPATION 08/22/19 [History Last Taken 08/31/20 20:26] Lactobacillus acidophilus 1 cap PO DAILY IMMUNE HEALTH 08/20/20 [History Last Taken 09/01/20 10:42] acetazolamide 250 mg tablet 250 mg PO BID EDEMA 08/20/20 [History Last Taken 09/01/20 08:00] cyanocobalamin (vitamin B-12) 500 mcg tablet 500 mcg PO DAILY SUPPLEMENT 08/20/20 [History Last Taken 09/01/20 10:44] albuterol sulfate 2.5 mg/3 mL (0.083 %) solution for nebulization 2.5 mg (3 mL) inhalation Q2H PRN PRN Shortness of Breath/Wheezing 09/05/20 [Rx Last Taken Unknown] docusate sodium 100 mg capsule 100 mg PO BID 09/05/20 [Rx Last Taken Unknown] lorazepam 0.5 mg tablet 0.5 mg PO QHS ANXIETY 10/28/20 [History Last Taken Unknown] bisacodyl 10 mg rectal suppository (Dulcolax (bisacodyl)) 10 mg FL DAILY PRN Constipation 07/14/21 [History Last Taken Unknown] ondansetron HCl 4 mg tablet 4 mg PO Q4H PRN Nausea 07/14/21 [History Last Taken Unknown] vit C 250 mg-vit E 90 mg-zinc 40 mg-copper 1 ie-khbfsh-wbtxci capsule (PreserVision AREDS-2) 1 tab PO BID 07/14/21 [History Last Taken Unknown] budesonide 0.25 mg/2 mL suspension for nebulization 0.25 mg inhalation BID COPD 01/14/22 [History Last Taken Unknown] buspirone 5 mg tablet 2.5 mg PO QHS 01/14/22 [History Last Taken Unknown] cholecalciferol (vitamin D3) 125 mcg (5,000 unit) tablet 125 mcg PO TH 01/14/22 [History Last Taken Unknown] furosemide 20 mg tablet 20 mg PO DAILY 01/14/22 [History Last Taken Unknown] magnesium hydroxide 400 mg/5 mL oral suspension (Milk of Magnesia) 30 ml PO DAILY PRN Constipation 01/14/22 [History Last Taken Unknown] menthol 4 % topical gel (Biofreeze (menthol)) 1 applic topical BID PRN Pain 01/14/22 [History Last Taken Unknown] potassium chloride 20 mEq tablet,extended release 20 meq PO DAILY 01/14/22 [History Last Taken Unknown] sodium phosphates 19 gram-7 gram/118 mL enema 118 ml FL DAILY PRN Constipation 01/14/22 [History Last Taken Unknown] acetaminophen 500 mg capsule 1,000 mg PO Q8H PRN Pain 04/14/22 [History Last Taken Unknown] albuterol sulfate 90 mcg/actuation aerosol inhaler (Ventolin HFA) 2 puff inhalation Q4H PRN PRN Wheezing ##1 04/14/22 [Rx Last Taken Unknown] guaifenesin 100 mg/5 mL oral liquid (Tussin) 200 mg PO Q6H PRN Cough 04/14/22 [History Last Taken Unknown] menthol 4 % topical cream 1 applic topical Q2H PRN PRN Pain 04/14/22 [History Last Taken Unknown] phenylephrine 0.25 %-hard fat 88.7 % rectal suppository (Hemorrhoidal (phenylephrine-hard fat)) 1 supp FL Q6H PRN PRN Hemorrhoids 04/14/22 [History Last Taken Unknown] ipratropium 0.5 mg-albuterol 3 mg (2.5 mg base)/3 mL nebulization soln 3 ml inhalation Q6H #0 mL 07/13/22 [Rx Last Taken Unknown] warfarin 4 mg tablet 4.5 mg PO DAILY 07/26/22 [History Last Taken Unknown] bisacodyl ea 08/01/22 [History Last Taken Unknown] doxycycline hyclate 100 mg capsule 100 mg PO BID 08/01/22 [History Last Taken Unknown] tramadol 50 mg tablet 50 mg PO Q8H PRN Pain, Moderate 08/01/22 [History Last Taken Unknown] Allergy/AdvReac Type Severity Reaction Status Date / Time amlodipine besylate AdvReac ANKLE AND Verified 07/26/22 19:12 [From [facility]] LEG EDEMA codeine AdvReac MENTAL Verified 07/26/22 19:12 STATUS CHANGE lisinopril AdvReac COUGH Verified 07/26/22 19:12 Family History (Reviewed 08/05/22 @ 16:47 by Salina Duffy [employer], [employer]) Sister Heart disease Surgical History History of cholecystectomy History of total hysterectomy Hx of atrioventricular node ablation tailbone surgery Social History household members: none housing: correction Smoking Status: Former smoker how long ago did patient quit smoking: Approxiomately 2003 alcohol intake: never substance use type: does not use caffeine: No ROS Constitutional Constitutional: Denies chills, fever(s), frequent falls or headache(s) Eyes Eyes: Reports requires corrective lenses ENT HEENT: Reports none Cardiovascular Cardiovascular: Reports as per HPI Respiratory/Chest Respiratory/Chest: Reports as per HPI Musculoskeletal Musculoskeletal: Reports extremity pain Integumentary Integumentary: Reports skin ulcer Neurologic Neurologic: Reports systems reviewed and no addt'l complaints, except as documented Psychiatric Psychiatric: Reports systems reviewed and no addt'l complaints, except as documented Endocrine Endocrinology: Reports systems reviewed and no addt'l complaints, except as documented Vital Signs Vital Signs Vital Signs: 08/01/22 13:27 Temperature 97.1 F L Temperature Source Temporal Pulse Rate 63 Blood Pressure 122/66 H Blood Pressure Mean 84 Blood Pressure Source Monitor Weight Weight: 154 lb Body Mass Index (BMI) 24.1 Physical Exam Const alert, oriented x3 and no apparent distress General Appearance: well kempt HEENT normocephalic Head and Scalp: atraumatic Eyes General Eye: normal appearance of both eyes Neck full ROM Lymph Lymphatic: no lymphedema noted Resp normal respiratory effort, normal air movement, no retractions and no use of accessory muscles Cardio regular rate and regular rhythm GI normal to inspection, nondistended, normoactive bowel sounds, soft to palpation and non-tender Back/Spine normal ROM Extremity full ROM and normal capillary refill Skin Skin Narrative: Left lateral leg hematoma that is very tender to palpation. No openings or drainage. Area had edema with a soft, bruised area. Neuro oriented x3 and moves all extremities Sensorium / Orientation: awake and alert Psych mental status grossly normal Debridement Note Debridement Note No debridement was completed: No debridement was completed today Post-Debridement Measurements and Additional Note: Post-Debridement Measurements/Treatment - Nurse 1 - General Ulcer Assessment Start: 08/01/22 13:26 Freq: Status: Active Protocol: OBED Activity Type Activity Date Activity User E-sign Co-sign Detail Recorded Client Recorded Date Recorded By Document 08/01/22 13:27 FRANCO [id number] 08/01/22 13:35 AK 08/01/22 13:27 - Today's Visit Information Type of service Initial Visit Arrival Mode Ambulatory Patient Identification Verified (Name & Yes ) Patient Requires Transmission-Based No Precautions Height and Weight Height 5 ft 7 in Weight 154 lb Weight in Pounds 154.0 lbs Body Mass Index (BMI) 24.1 BMI Classification Normal BSA - Laly 1.81 Vital Signs Temperature (97.8 F-99.1 F) 97.1 F L Temperature Source Temporal Pulse Rate (60-100) 63 Pulse Location Monitor Blood Pressure (90/60-120/80) 122/66 H Blood Pressure Mean 84 Source Monitor History Since Last Visit- (Skip if this is Patient's initial visit) Left Footwear Regular Shoe Right Footwear Regular Shoe Pain Scale: 0-10 Numeric Is Patient Pain Free? Yes WC - Nurse 1 - General Ulcer Measurement Start: 08/01/22 13:26 Freq: Status: Active Protocol: Activity Type Activity Date Activity User E-sign Co-sign Detail Recorded Client Recorded Date Recorded By Document 08/01/22 13:27 FRANCO [id number] 08/01/22 13:35 FRANCO 08/01/22 13:27 Wound Center Nurse 1 # left lateral LE -Combined with other wound No -Current Size (cm) - Length 0.1 -Current Size (cm) - Width 0.1 -Current Size (cm) - Depth 0.1 -Total Square Cm 0.01 -Date of Last Picture (Recall this 08/01/22 field) -Photo Taken Yes -Tunneling No -Undermining/Tunneling No -Circular Undermining No -Change in Wound Grade/Stage No -Exudate Amt None Present -Wound Margin Distinct, Outline Attached -Granulation Amt None Present (0 %) -Granulation Quality N/A -Slough/Fibrin No -Necrosis Amt None Present (0 %) -Structure Exposed N/A -Texture (Caterina-wound Skin Appearance) No Abnormality, Assessed -Moisture (Caterina-wound Skin Appearance) No Abnormality, Assessed -Color (Caterina-wound Skin Appearance) No Abnormality, Assessed -Temperature (Caterina-wound Skin No Abnormality Appearance) (Pt Warm) -Tenderness on Palpation (Caterina-wound No Skin Appearance) -Ulcer Cleansing Not Cleansed -Foul Odor after Cleansing No -Wound Comment(s) protruding hematoma with a lot of swelling Lower Limb Edema Present No Right Calf (cm) 31.6 Right Ankle (cm) 21.6 Left Calf (cm) 34.2 Left Ankle (cm) 22.5 - Nurse 2 - General Ulcer CM Notes Start: 08/01/22 13:26 Freq: Status: Active Protocol: Activity Type Activity Date Activity User E-sign Co-sign Detail Recorded Client Recorded Date Recorded By Document 08/01/22 13:59 [id number] 08/01/22 14:09 08/01/22 13:59 Wound Center Nurse 2 # left lateral LE -Correct Patient No -Correct Side, Site, Position No -Correct Procedure No -Procedure Performed No -Wound/Ulcer Outcome Not Healed -Debridement - Subq, 1st 20sq cm No Pain Scale: 0-10 Numeric Is Patient Pain Free? Yes - Nurse 3 - General Ulcer D/C NN Start: 08/01/22 13:26 Freq: Status: Active Protocol: Activity Type Activity Date Activity User E-sign Co-sign Detail Recorded Client Recorded Date Recorded By Document 08/01/22 14:25 [id number] 08/01/22 14:26 08/01/22 14:25 Wound Care Nurse 3 # left lateral LE -Primary Dressing Covered/Secured with Dry Gauze Left -Compression Wrap Ryan Wrap Pain Scale: 0-10 Numeric Is Patient Pain Free? Yes - Visit Discharge Discharge Condition Stable Ambulatory Status Wheelchair Transportation Private Auto Accompanied by daughter Medication Reconcilliation completed & Yes provided to patient/care provider Clinical Summary of Care Provided Yes Charges/Coding Visit Charges Office Visits / Consults: 31545 OV L4 Est Assessment/Plan Assessment/Plan (1) Hematoma of left lower leg: CODE(S): S80.12XA - Contusion of left lower leg, initial encounter (2) Chronic anticoagulation: CODE(S): Z79.01 - MCFP (current) use of anticoagulants (3) History of recurrent deep vein thrombosis (DVT): CODE(S): Z86.718 - Personal history of other venous thrombosis and embolism (4) History of pulmonary embolism: CODE(S): Z86.711 - Personal history of pulmonary embolism (5) Chronic hypoxemic respiratory failure: CODE(S): J96.11 - Chronic respiratory failure with hypoxia (6) COPD (chronic obstructive pulmonary disease): CODE(S): J44.9 - Chronic obstructive pulmonary disease, unspecified PLAN: Plan Patient evaluated at the wound healing center today. No debridement was performed due to there not being a wound. Encouraged patient to wear an RYAN wrap for compression. Keep leg elevated as much as possible. She may ambulate as much as tolerated, but is to avoid standing in one area for any length of time (greater than 10-15 minutes) to help prevent swelling. She is currently on Doxycycline from her PCP. Encouraged a diet high in protein to help with wound healing. Discussed this patient with Dr. Fernandez and he will evaluate her next week for a potential operative debridement. Follow up one week for evaluation by Dr. Fernandez.
[2022-08-08 11:12] VITALS: BP 149/58; PULSE 59; RESP 22; TEMP 36.1; BMI 24.1
--- NOTE | 2022-08-08 13:23 | PCM.WC.HP ---
History of Present Illness Date of Service: 08/08/22 Chief Complaint: WOUND CENTER CONSULT Referring Provider: Salina Duffy NP-Airway Traffic Controller: Bernardo Fernandez MD Left lateral lower leg hematoma History of Wound: 76 year old female who presented to the Wound Center last week with a hematoma left lateral leg that she thought it occurred when she was hospitalized 07/09/22-07/13/22 for acute exacerbation of COPD. She is on Warfarin for history of Afib and PEs. She was seen in the ED on 07/26/22 because of increased redness, pain, and swelling and some overlying skin necrosis. Her INR was 5.5 in the ED. She was placed on Doxycycline. She has a history of CHF, COPD, Pacemaker, DVT, PE, ANKUSH, chronic anticoagulation with Coumadin and is on home oxygen. Today she denies fever. Her appetite is ok. Progress of Wound: Hematoma left lateral leg with overlying skin necrosis. [facility] Medical History (Updated 08/08/22 @ 13:[address] Bernardo Fernandez MD) Abscess of left leg Atrial fibrillation AV block, complete BiPAP (biphasic positive airway pressure) dependence Chronic anticoagulation COPD (chronic obstructive pulmonary disease) Dyslipidemia Elevated troponin Essential hypertension Essential hypertension Former smoker Former tobacco use Heart failure with preserved ejection fraction Hematoma of left lower leg History of DVT (deep vein thrombosis) History of pulmonary embolism History of pulmonary embolus (PE) History of recurrent deep vein thrombosis (DVT) Presence of permanent cardiac pacemaker (~10/12/20) Pulmonary HTN Skin necrosis Sleep apnea Tachycardia-bradycardia syndrome Venous insufficiency Wound abscess Home Medications citalopram 40 mg tablet 20 mg PO DAILY DEPRESSION 05/23/18 [History Last Taken 09/01/20 10:44] omeprazole 20 mg tablet,delayed release 20 mg PO DAILY GERD 01/17/19 [History Last Taken 09/01/20 10:44] sennosides 8.6 mg-docusate sodium 50 mg tablet 2 tab PO QHS CONSTIPATION 08/22/19 [History Last Taken 08/31/20 20:26] Lactobacillus acidophilus 1 cap PO DAILY IMMUNE HEALTH 08/20/20 [History Last Taken 09/01/20 10:42] acetazolamide 250 mg tablet 250 mg PO BID EDEMA 08/20/20 [History Last Taken 09/01/20 08:00] cyanocobalamin (vitamin B-12) 500 mcg tablet 500 mcg PO DAILY SUPPLEMENT 08/20/20 [History Last Taken 09/01/20 10:44] albuterol sulfate 2.5 mg/3 mL (0.083 %) solution for nebulization 2.5 mg (3 mL) inhalation Q2H PRN PRN Shortness of Breath/Wheezing 09/05/20 [Rx Last Taken Unknown] docusate sodium 100 mg capsule 100 mg PO BID 09/05/20 [Rx Last Taken Unknown] lorazepam 0.5 mg tablet 0.5 mg PO QHS ANXIETY 10/28/20 [History Last Taken Unknown] bisacodyl 10 mg rectal suppository (Dulcolax (bisacodyl)) 10 mg OH DAILY PRN Constipation 07/14/21 [History Last Taken Unknown] ondansetron HCl 4 mg tablet 4 mg PO Q4H PRN Nausea 07/14/21 [History Last Taken Unknown] vit C 250 mg-vit E 90 mg-zinc 40 mg-copper 1 [id number] capsule (PreserVision AREDS-2) 1 tab PO BID 07/14/21 [History Last Taken Unknown] budesonide 0.25 mg/2 mL suspension for nebulization 0.25 mg inhalation BID COPD 01/14/22 [History Last Taken Unknown] buspirone 5 mg tablet 2.5 mg PO QHS 01/14/22 [History Last Taken Unknown] cholecalciferol (vitamin D3) 125 mcg (5,000 unit) tablet 125 mcg PO TH 01/14/22 [History Last Taken Unknown] furosemide 20 mg tablet 20 mg PO DAILY 01/14/22 [History Last Taken Unknown] magnesium hydroxide 400 mg/5 mL oral suspension (Milk of Magnesia) 30 ml PO DAILY PRN Constipation 01/14/22 [History Last Taken Unknown] menthol 4 % topical gel (Biofreeze (menthol)) 1 applic topical BID PRN Pain 01/14/22 [History Last Taken Unknown] potassium chloride 20 mEq tablet,extended release 20 meq PO DAILY 01/14/22 [History Last Taken Unknown] sodium phosphates 19 gram-7 gram/118 mL enema 118 ml OH DAILY PRN Constipation 01/14/22 [History Last Taken Unknown] acetaminophen 500 mg capsule 1,000 mg PO Q8H PRN Pain 04/14/22 [History Last Taken Unknown] albuterol sulfate 90 mcg/actuation aerosol inhaler (Ventolin HFA) 2 puff inhalation Q4H PRN PRN Wheezing ##1 04/14/22 [Rx Last Taken Unknown] guaifenesin 100 mg/5 mL oral liquid (Tussin) 200 mg PO Q6H PRN Cough 04/14/22 [History Last Taken Unknown] menthol 4 % topical cream 1 applic topical Q2H PRN PRN Pain 04/14/22 [History Last Taken Unknown] phenylephrine 0.25 %-hard fat 88.7 % rectal suppository (Hemorrhoidal (phenylephrine-hard fat)) 1 supp OH Q6H PRN PRN Hemorrhoids 04/14/22 [History Last Taken Unknown] ipratropium 0.5 mg-albuterol 3 mg (2.5 mg base)/3 mL nebulization soln 3 ml inhalation Q6H #0 mL 07/13/22 [Rx Last Taken Unknown] warfarin 4 mg tablet 4.5 mg PO DAILY 07/26/22 [History Last Taken Unknown] bisacodyl ea 08/01/22 [History Last Taken Unknown] doxycycline hyclate 100 mg capsule 100 mg PO BID 08/01/22 [History Last Taken Unknown] tramadol 50 mg tablet 50 mg PO Q8H PRN Pain, Moderate 08/01/22 [History Last Taken Unknown] Allergy/AdvReac Type Severity Reaction Status Date / Time amlodipine besylate AdvReac ANKLE AND Verified 08/09/22 14:37 [From [facility]] LEG EDEMA codeine AdvReac MENTAL Verified 08/09/22 14:37 STATUS CHANGE lisinopril AdvReac COUGH Verified 08/09/22 14:37 Family History Sister Heart disease Surgical History History of cholecystectomy History of total hysterectomy Hx of atrioventricular node ablation tailbone surgery Social History household members: none housing: half-way Smoking Status: Former smoker how long ago did patient quit smoking: Approxiomately 2003 alcohol intake: never substance use type: does not use caffeine: No ROS ROS Narrative REVIEW OF SYSTEMS General - Denies fever and weight loss. Has fatigue. Eyes - Denies cataracts and glaucoma. ENT - Denies nasal congestion and sore throat. Endocrine - Denies excessive thirst and urination. Skin - Denies suspicious lesions and skin cancer. Has hematoma abscess with overlying skin necrosis left lateral leg. Musculoskeletal - Denies joint pain, joint stiffness, weakness of muscles and joints. Has back pain, and arthritis. Neuro - Denies headaches. Cardiovascular - Denies chest pain. Has shortness of breath with exertion and fatigue. Has hypertension. Has atrial fibrillation. Has CHF. Has a pacemaker. Psych - Has anxiety and depression. Respiratory - Denies chronic cough. Has shortness of breath. Has COPD. Has sleep apnea. Patient is a former smoker. Gastrointestinal - Denies nausea, vomiting, diarrhea, and constipation. Hematologic - Has abnormal bruising and bleeding. On Coumadin for atrial fibrillation. Genitourinary - Denies hematuria and urinary frequency. Vital Signs Vital Signs Vital Signs: 08/08/22 11:12 Temperature 96.9 F L Temperature Source Temporal Pulse Rate 59 L Respiratory Rate 22 H Blood Pressure 149/58 H Blood Pressure Mean 88 Blood Pressure Source Monitor Weight Weight: 154 lb Body Mass Index (BMI) 24.1 Physical Exam Narrative PHYSICAL EXAMINATION General - Alert and Oriented. HEENT - PERRL. EOMI. Neck - Supple and nontender. No cervical adenopathy. Lungs - Clear to auscultation. Heart - Irregular rate and rhythm. Abdomen - Soft and nondistended. Extremities - No clubbing or cyanosis. Mild edema on the left leg. No inguinal adenopathy. Dorsalis pedis pulses are palpable. On the left lateral leg is a hematoma with some surrounding erythema. Slightly firm. Measures 6 cm. Has overlying skin necrosis. No purulent drainage. Neuro - CN II-XII grossly intact. Psych - Normal mood and affect. Debridement Note Debridement Note Wound debrided: #1 Left lateral leg. Laterality: Left Wound Grade/Stage: Probably Grade 2. Needs surgical evacuation and debridement. No debridement was completed: No debridement was completed today (Patient is going to need operative intervention with incision and drainage and evacuation of necrotic hematoma abscess with excisional debridement of overlying skin necrosis.) Post-Debridement Measurements and Additional Note: Post-Debridement Measurements/Treatment VERONICA - Nurse 1 - General Ulcer Assessment Start: 08/01/22 13:26 Freq: Status: Active Protocol: WC.LOWEXT Activity Type Activity Date Activity User E-sign Co-sign Detail Recorded Client Recorded Date Recorded By Document 08/01/22 13:27 AK [id number] 08/01/22 13:35 AK Document 08/08/22 11:12 DL [id number] 08/08/22 11:22 DL 08/01/22 08/08/22 13:27 11:12 WC - Today's Visit Information Type of service Initial Visit Follow-up Visit (Physician/GROUP SEGMENT CONSULTANT ) Arrival Mode Ambulatory Wheelchair Transfer Assistance Manual Transfer Assist (Other) x1 Patient Identification Verified (Name & Yes Yes ) Patient Requires Transmission-Based No No Precautions Height and Weight Height 5 ft 7 in Weight 154 lb Weight in Pounds 154.0 lbs Body Mass Index (BMI) 24.1 24.1 BMI Classification Normal Normal BSA - Laly 1.81 Vital Signs Temperature (97.8 F-99.1 F) 97.1 F L 96.9 F L Temperature Source Temporal Temporal Pulse Rate (60-100) 63 59 L Pulse Location Monitor Monitor Respiratory Rate (12-18) 22 H Respiratory rate source Observation Blood Pressure (90/60-120/80) 122/66 H 149/58 H Blood Pressure Mean 84 88 Source Monitor Monitor History Since Last Visit- (Skip if this is Patient's initial visit) Have you changed medications since your No last visit? Any new allergies or adverse reactions No Had a fall/change in ADL's that may No increase risk of falls Signs or symptoms of abuse and/or No neglect since last visit Have you been in the hospital since your No last visit? Has dressing in place as prescribed Yes Has compression in place as prescribed Yes Has offloadiing in place as prescribed N/A Experienced any changes in pain level or No management Left Footwear Regular Shoe Right Footwear Regular Shoe Pain Scale: 0-10 Numeric Is Patient Pain Free? Yes Yes - Nurse 1 - General Ulcer Measurement Start: 08/01/22 13:26 Freq: Status: Active Protocol: Activity Type Activity Date Activity User E-sign Co-sign Detail Recorded Client Recorded Date Recorded By Document 08/01/22 13:27 AK [id number] 08/01/22 13:35 AK Document 08/08/22 11:12 DL [id number] 08/08/22 11:22 DL 08/01/22 08/08/22 13:27 11:12 Wound Center Nurse 1 # left lateral LE -Combined with other wound No -Current Size (cm) - Length 0.1 0.1 -Current Size (cm) - Width 0.1 0.1 -Current Size (cm) - Depth 0.1 0.1 -Total Square Cm 0.01 0.01 -Date of Last Picture (Recall this 08/01/22 field) -Photo Taken Yes Yes -Tunneling No -Undermining/Tunneling No -Circular Undermining No -Change in Wound Grade/Stage No -Exudate Amt None Present Medium -Exudate Type Sanguineous -Wound Margin Distinct, Outline Attached -Granulation Amt None Present (0 None Present (0 %) %) -Granulation Quality N/A -Slough/Fibrin No -Necrosis Amt None Present (0 Large (67-100%) %) -Necrotic Tissue Type Eschar -Structure Exposed N/A N/A -Texture (Caterina-wound Skin Appearance) No Abnormality, Localized Edema Assessed ,Scarring -Moisture (Caterina-wound Skin Appearance) No Abnormality, No Abnormality Assessed -Color (Caterina-wound Skin Appearance) No Abnormality, Ecchymosis Assessed -Temperature (Caterina-wound Skin No Abnormality No Abnormality Appearance) (Pt Warm) (Pt Warm) -Tenderness on Palpation (Caterina-wound No No Skin Appearance) -Ulcer Cleansing Not Cleansed Soap and Water -Foul Odor after Cleansing No No -Anesthetic Used 5% Lidocaine Gel -Wound Comment(s) protruding hematoma with a lot of swelling Lower Limb Edema Present No Right Calf (cm) 31.6 Right Ankle (cm) 21.6 Left Calf (cm) 34.2 35.6 Left Ankle (cm) 22.5 23.5 WC - Nurse 2 - General Ulcer CM Notes Start: 08/01/22 13:26 Freq: Status: Active Protocol: Activity Type Activity Date Activity User E-sign Co-sign Detail Recorded Client Recorded Date Recorded By Document 08/01/22 13:59 MILAGROS [id number] 08/01/22 14:09 Document 08/08/22 11:52 JF [id number] 08/08/22 11:59 JF 08/01/22 08/08/22 13:59 11:52 Wound Center Nurse 2 # left lateral LE -Correct Patient No No -Correct Side, Site, Position No No -Correct Procedure No No -Procedure Performed No No -Wound/Ulcer Outcome Not Healed Not Healed -Debridement - Subq, 1st 20sq cm No Pain Scale: 0-10 Numeric Is Patient Pain Free? Yes Yes - Nurse 3 - General Ulcer D/C NN Start: 08/01/22 13:26 Freq: Status: Active Protocol: Activity Type Activity Date Activity User E-sign Co-sign Detail Recorded Client Recorded Date Recorded By Document 08/01/22 14:25 [id number] 08/01/22 14:26 JF Document 08/08/22 12:07 DL [id number] 08/08/22 12:09 DL 08/01/22 08/08/22 14:25 12:07 Wound Care Center Nurse 3 # left lateral LE -Ulcer Cleansing Rinsed/ Irrigated with Saline -Foul Odor after Cleansing No -Primary Dressing Covered/Secured with Dry Gauze Dry Gauze,Dry Gauze & Roll Gauze,Secured with Tape -Other Covering RYAN Left -Compression Wrap Ryan Wrap -Compression Wrap Ryan Wrap Treatment Response Procedure Tolerated Well Pain Scale: 0-10 Numeric Is Patient Pain Free? Yes Yes - Visit Discharge Discharge Condition Stable Stable Ambulatory Status Wheelchair Ambulatory, Wheelchair Transportation Private Auto Private Auto Accompanied by daughter daughter Medication Reconcilliation completed & Yes provided to patient/care provider Clinical Summary of Care Provided Yes Facility Type Sr Technical Sales Consultant Care Facility Orders Sent Yes Lab / Micro Data Attestation: I reviewed the patient's lab results. Charges/Coding Visit Charges Office Visits / Consults: 33200 OV L4 New (ICD-10 - S80.12xA, I96, L02.416, Z79.01, Z86.711, Z86.718, Z87.891) Assessment/Plan Assessment/Plan (1) Hematoma of left lower leg: CODE(S): S80.12XA - Contusion of left lower leg, initial encounter (2) Skin necrosis: CODE(S): I96 - Gangrene, not elsewhere classified (3) Abscess of left leg: CODE(S): L02.416 - Cutaneous abscess of left lower limb (4) Chronic anticoagulation: CODE(S): Z79.01 - manager of revenue (current) use of anticoagulants (5) History of pulmonary embolism: CODE(S): Z86.711 - Personal history of pulmonary embolism (6) History of recurrent deep vein thrombosis (DVT): CODE(S): Z86.718 - Personal history of other venous thrombosis and embolism (7) Former smoker: CODE(S): Z87.891 - Personal history of nicotine dependence PLAN: Plan 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 She is currently on Doxycycline. Continue the dry dressing over the hematoma followed by compression ryan wrap. She is on Coumadin for her atrial fibrillation. Will check with her Providers at the [facility] about stopping the Coumadin for the surgery. Perioperatively she would receive SQ Heparin. Recommend operative intervention with incision and drainage and evacuation necrotic hematoma abscess with excisional debridement of overlying skin necrosis. During surgery will check to see if there involvement of the underlying muscles and evacuate any submuscular hematoma as well. Will send tissue to Pathology for analysis to rule out carcinoma and to Microbiology for culture. A positive culture will necessitate antibiotic therapy. Will leave the wound open after surgery and proceed with wound care with the [facility]. After discharge followup at the Wound Center. If there is a plateau in the healing process, can proceed with delayed closure with skin grafting. Patient was informed of the risks and complications of the procedure including alternatives to surgery. These were discussed with the patient personally. Patient voices understanding and wishes to proceed. Will schedule the surgery next week. She states there has been no x-ray since the hematoma. Will order one to look for any bony abnormalities.
== END 2022-08-16 23:59 | disposition home or self-care (01) ==
LOC: WC 11:15
PROVIDERS: PCP Family Medicine; Visit Provider Nurse Practitioner Family
DX: S80.12XA Contusion of left lower leg, initial encounter (principal); X58.XXXA Exposure to other specified factors, initial encounter; I96 Gangrene, not elsewhere classified; L02.416 Cutaneous abscess of left lower limb; R60.0 Localized edema; J44.9 Chronic obstructive pulmonary disease, unspecified; I11.0 Hypertensive heart disease with heart failure; I50.32 Chronic diastolic (congestive) heart failure; J96.11 Chronic respiratory failure with hypoxia; I48.91 Unspecified atrial fibrillation; E78.5 Hyperlipidemia, unspecified; G47.33 Obstructive sleep apnea (adult) (pediatric); Z79.01 Long term (current) use of anticoagulants; Z79.899 Other long term (current) drug therapy; Z99.81 Dependence on supplemental oxygen; Z86.711 Personal history of pulmonary embolism; Z86.718 Personal history of other venous thrombosis and embolism; Z87.891 Personal history of nicotine dependence; Z95.0 Presence of cardiac pacemaker
CPT/HCPCS: 99214; G0463

== ENCOUNTER 2022-08-08 12:36 | Outpatient (CLI) | payer MEDICARE, MEDICAID, SELFPAY ==
--- NOTE | 2022-08-08 12:37 | RAD_ITS ---
STUDY: X-RAY - LEFT TIBIA AND FIBULA REASON FOR EXAM: Female, 76 years old. left leg hematoma TECHNIQUE: 2 view(s) of the tibia and fibula were obtained. COMPARISON: None. FINDINGS: Normal visualized tibia. Normal visualized fibula. The soft tissue structures are unremarkable. RAD/Tibia & Fibula 2 Views IMPRESSION: Normal x-ray examination of the tibia and fibula. Electronically Signed: Alen Barnett MD at 23:55 EST ,
== END 2022-08-08 23:59 | disposition home or self-care (01) ==
PROVIDERS: PCP Family Medicine; Referring Provider Nurse Practitioner Family; Visit Provider Nurse Practitioner Family
DX: S80.12XA Contusion of left lower leg, initial encounter (principal); I96 Gangrene, not elsewhere classified; J44.9 Chronic obstructive pulmonary disease, unspecified; I11.0 Hypertensive heart disease with heart failure; I50.32 Chronic diastolic (congestive) heart failure; J96.11 Chronic respiratory failure with hypoxia; X58.XXXA Exposure to other specified factors, initial encounter; Z79.01 Long term (current) use of anticoagulants; L02.416 Cutaneous abscess of left lower limb; R60.0 Localized edema; Z99.81 Dependence on supplemental oxygen; Z86.711 Personal history of pulmonary embolism; Z86.718 Personal history of other venous thrombosis and embolism; Z87.891 Personal history of nicotine dependence; Z95.0 Presence of cardiac pacemaker; E78.5 Hyperlipidemia, unspecified; G47.33 Obstructive sleep apnea (adult) (pediatric); Z79.899 Other long term (current) drug therapy
CPT/HCPCS: 73590; 99214; G0463

== ENCOUNTER 2022-08-19 13:28 | Observation (INO) | payer MEDICARE, MEDICAID, SELFPAY ==
[2022-08-19] VITALS (16 sets, daily range): BP systolic 91–144; BP diastolic 45–70; PULSE 55–67; RESP 16–20; TEMP 36.2–36.9; O2SAT 94–100; BMI 26.4
--- NOTE | 2022-08-19 09:32 | PCM.HP.BLA ---
History and Physical Date of Admission: 08/19/22 HISTORY OF PRESENT ILLNESS 76 year old female who presented [facility] last week with a hematoma left lateral leg that she thought it occurred when she was hospitalized 07/09/22-07/13/22 for acute exacerbation of COPD.? She is on Warfarin for history of Afib and PEs. She was seen in the ED on 07/26/22 because of increased redness, pain, and swelling and some overlying skin necrosis.? Her INR was 5.5 in the ED. She was placed on Doxycycline.? She has a history of CHF, COPD, Pacemaker, DVT, PE, ANKUSH, chronic anticoagulation with Coumadin and is on home oxygen. Today she denies fever.? Her appetite is ok. X-ray tib-fib reviewed from 08/08/22. It was normal with no bony abnormalities. PAST MEDICAL HISTORY Abscess of left leg Atrial fibrillation AV block, complete BiPAP (biphasic positive airway pressure) dependence Chronic anticoagulation COPD (chronic obstructive pulmonary disease) Dyslipidemia Elevated troponin Essential hypertension Essential hypertension Former smoker Former tobacco use Heart failure with preserved ejection fraction Hematoma of left lower leg History of DVT (deep vein thrombosis) History of pulmonary embolism History of pulmonary embolus (PE) History of recurrent deep vein thrombosis (DVT) Presence of permanent cardiac pacemaker (~10/12/20) Pulmonary HTN Skin necrosis Sleep apnea Tachycardia-bradycardia syndrome Venous insufficiency Wound abscess SURGICAL HISTORY History of cholecystectomy History of total hysterectomy Hx of atrioventricular node ablation tailbone surgery MEDICATIONS citalopram 40 mg tablet 20 mg PO DAILY DEPRESSION 05/23/18 [History Last Taken 09/01/20 10:44] omeprazole 20 mg tablet,delayed release 20 mg PO DAILY GERD 01/17/19 [History Last Taken 09/01/20 10:44] sennosides 8.6 mg-docusate sodium 50 mg tablet 2 tab PO QHS CONSTIPATION 08/22/19 [History Last Taken 08/31/20 20:26] Lactobacillus acidophilus 1 cap PO DAILY IMMUNE HEALTH 08/20/20 [History Last Taken 09/01/20 10:42] acetazolamide 250 mg tablet 250 mg PO BID EDEMA 08/20/20 [History Last Taken 09/01/20 08:00] cyanocobalamin (vitamin B-12) 500 mcg tablet 500 mcg PO DAILY SUPPLEMENT 08/20/20 [History Last Taken 09/01/20 10:44] albuterol sulfate 2.5 mg/3 mL (0.083 %) solution for nebulization 2.5 mg (3 mL) inhalation Q2H PRN PRN Shortness of Breath/Wheezing 09/05/20 [Rx Last Taken Unknown] docusate sodium 100 mg capsule 100 mg PO BID 09/05/20 [Rx Last Taken Unknown] lorazepam 0.5 mg tablet 0.5 mg PO QHS ANXIETY 10/28/20 [History Last Taken Unknown] bisacodyl 10 mg rectal suppository (Dulcolax (bisacodyl)) 10 mg WA DAILY PRN Constipation 07/14/21 [History Last Taken Unknown] ondansetron HCl 4 mg tablet 4 mg PO Q4H PRN Nausea 07/14/21 [History Last Taken Unknown] vit C 250 mg-vit E 90 mg-zinc 40 mg-copper 1 [id number]-yorvuf-txaxoo capsule (PreserVision AREDS-2) 1 tab PO BID 07/14/21 [History Last Taken Unknown] budesonide 0.25 mg/2 mL suspension for nebulization 0.25 mg inhalation BID COPD 01/14/22 [History Last Taken Unknown] buspirone 5 mg tablet 2.5 mg PO QHS 01/14/22 [History Last Taken Unknown] cholecalciferol (vitamin D3) 125 mcg (5,000 unit) tablet 125 mcg PO TH 01/14/22 [History Last Taken Unknown] furosemide 20 mg tablet 20 mg PO DAILY 01/14/22 [History Last Taken Unknown] magnesium hydroxide 400 mg/5 mL oral suspension (Milk of Magnesia) 30 ml PO DAILY PRN Constipation 01/14/22 [History Last Taken Unknown] menthol 4 % topical gel (Biofreeze (menthol)) 1 applic topical BID PRN Pain 01/14/22 [History Last Taken Unknown] potassium chloride 20 mEq tablet,extended release 20 meq PO DAILY 01/14/22 [History Last Taken Unknown] sodium phosphates 19 gram-7 gram/118 mL enema 118 ml WA DAILY PRN Constipation 01/14/22 [History Last Taken Unknown] acetaminophen 500 mg capsule 1,000 mg PO Q8H PRN Pain 04/14/22 [History Last Taken Unknown] albuterol sulfate 90 mcg/actuation aerosol inhaler (Ventolin HFA) 2 puff inhalation Q4H PRN PRN Wheezing ##1 04/14/22 [Rx Last Taken Unknown] guaifenesin 100 mg/5 mL oral liquid (Tussin) 200 mg PO Q6H PRN Cough 04/14/22 [History Last Taken Unknown] menthol 4 % topical cream 1 applic topical Q2H PRN PRN Pain 04/14/22 [History Last Taken Unknown] phenylephrine 0.25 %-hard fat 88.7 % rectal suppository (Hemorrhoidal (phenylephrine-hard fat)) 1 supp WA Q6H PRN PRN Hemorrhoids 04/14/22 [History Last Taken Unknown] ipratropium 0.5 mg-albuterol 3 mg (2.5 mg base)/3 mL nebulization soln 3 ml inhalation Q6H #0 mL 07/13/22 [Rx Last Taken Unknown] warfarin 4 mg tablet 4.5 mg PO DAILY 07/26/22 [History Last Taken Unknown] bisacodyl ea 08/01/22 [History Last Taken Unknown] doxycycline hyclate 100 mg capsule 100 mg PO BID 08/01/22 [History Last Taken Unknown] tramadol 50 mg tablet 50 mg PO Q8H PRN Pain, Moderate 08/01/22 [History Last Taken Unknown] ALLERGIES Amlodipine (Norvasc) Codeine Lisinopril FAMILY HISTORY Sister - Heart disease SOCIAL HISTORY Smoking Status:? Former smoker how long ago did patient quit smoking:? Approximately 2003 alcohol intake:? never substance use type:? does not use REVIEW OF SYSTEMS General - Denies fever and weight loss.? Has fatigue. Eyes - Denies cataracts and glaucoma. ENT - Denies nasal congestion and sore throat. Endocrine - Denies excessive thirst and urination. Skin - Denies suspicious lesions and skin cancer.? Has hematoma abscess with overlying skin necrosis left lateral leg. Musculoskeletal - Denies joint pain, joint stiffness, weakness of muscles and joints.? Has back pain, and arthritis. Neuro - Denies headaches. Cardiovascular - Denies chest pain.? Has shortness of breath with exertion and fatigue. Has hypertension.? Has atrial fibrillation.? Has CHF.? Has a pacemaker. Psych - Has anxiety and depression. Respiratory - Denies chronic cough.? Has shortness of breath.? Has COPD.? Has sleep apnea.? Patient is a former smoker. Gastrointestinal - Denies nausea, vomiting, diarrhea, and constipation. Hematologic - Has abnormal bruising and bleeding.? On Coumadin for atrial fibrillation. Genitourinary - Denies hematuria and urinary frequency. PHYSICAL EXAMINATION General - Alert and Oriented. HEENT - PERRL. EOMI. Neck - Supple and nontender.? No cervical adenopathy. Lungs - Clear to auscultation. Heart - Irregular rate and rhythm. Abdomen - Soft and nondistended. Extremities - No clubbing or cyanosis.? Mild edema on the left leg. No inguinal adenopathy.? Dorsalis pedis pulses are palpable.? On the left lateral leg is a hematoma with some surrounding erythema.? Slightly firm.? Measures 6 cm.? Has overlying skin necrosis.? No purulent drainage. Neuro - CN II-XII grossly intact. Psych - Normal mood and affect. ASSESSMENT (1) Hematoma of left lower leg (S80.12xA). (2) Skin necrosis (I96). (3) Abscess of left leg (L02.416). (4) Chronic anticoagulation (Z79.01). (5) History of pulmonary embolism (Z86.711). (6) History of recurrent deep vein thrombosis (DVT) (Z86.718). (7) Former smoker (z87.891). PLAN X-ray tib-fib reviewed from 08/08/22. It was normal with no bony abnormalities. 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 She is currently on Doxycycline.? Continue the dry dressing over the hematoma followed by compression jes wrap. She is on Coumadin for her atrial fibrillation.? Will check with her Providers at the [facility] about stopping the Coumadin for the surgery.? Perioperatively she would receive SQ Heparin. Recommend operative intervention with incision and drainage and evacuation necrotic hematoma abscess with excisional debridement of overlying skin necrosis.? During surgery will check to see if there involvement of the underlying muscles and evacuate any submuscular hematoma as well.? Will send tissue to Pathology for analysis to rule out carcinoma and to Microbiology for culture. ? A positive culture will necessitate antibiotic therapy. Will leave the wound open after surgery and proceed with wound care with the VAC. After discharge followup at the Wound Center.? If there is a plateau in the healing process, can proceed with delayed closure with skin grafting. Patient was informed of the risks and complications of the procedure including alternatives to surgery.? These were discussed with the patient personally.? Patient voices understanding and wishes to proceed. Potential risks and complications included but not inclusive of bleeding, infection, hematoma, bruising, swelling, loss of sensation to skin, wound breakdown, need for wound care, poor scarring, poor aesthetic outcome, intra operative cardiac or neurologic events, DVT, PE, and reaction to anesthesia. Will schedule the surgery next week. Assessment & Plan Assessment/Plan (1) Hematoma of left lower leg: (2) Skin necrosis: (3) Abscess of left leg: (4) Chronic anticoagulation: (5) History of pulmonary embolism: (6) History of recurrent deep vein thrombosis (DVT): (7) Former smoker:
[2022-08-19 10:36] LABS: Prothrombin Time Fingerstick 12.6 SEC (11.7-14.9)
[2022-08-19] MEDS: Lactated Ringers 1,000 ML 15 ML IV ×2 (10:45→12:25)
--- NOTE | 2022-08-19 11:35 | SOF_PTH ---
PATIENT: BERTO SIMPSON LOC: [facility]3 U#:[id number] AGE/SX: 76/F ROOM: [facility] RE08/19/[address]: Dr. Bernardo Fernandez MD : [id number] BED: 1 DIS: 08/20/2022 SPEC #: [id number] RECD: 08/19/22 16:43 STATUS: EILEEN REQ #: [id number] DEBBIE: 08/19/22 11:[address]: Bernardo Fernandez DEPT: SURGICAL PATHOLOGY RECD BY: Maci Crain ENTERED: 08/22/22 12:01 SP TYPE: SOFT TISS OTHR DR: Dr. Tor Lucia MD Tissues: Soft tissues, NOS Procedures: Surgery Specimen Level III HEADER OPERATION: Surgical preparation lateral leg with incision and drainage PRE-OP DIAGNOSIS: Hematoma of left lower leg, skin necrosis, abscess of left leg TISSUE SUBMITTED: Soft tissue left leg MICROSCOPIC DIAGNOSIS Soft tissue left leg: Skin with underlying tissue with focal ulceration and associated acute inflammation. Underlying tissue with hematoma, associated fat necrosis, chronic inflammation, foreign body giant cell reaction and histiocytic reaction. JOSÉ MIGUEL:aron 08/23/2022 MICROSCOPIC DESCRIPTION Slides are reviewed. GROSS DESCRIPTION Received in fixative is one container labeled with the patient's name and designated soft tissue left leg. The specimen consists of a piece of skin with underlying tissue measuring 4 x 3.5 cm and up to 1.5 cm in thickness. The skin surface shows focal area of ulceration. Sections reveal blood clots in the underlying tissue. Information Technology Account Manager sections are submitted in two cassettes. / JOSÉ MIGUEL:aron 08/22/2022 TC:5 CPT: 11051
[2022-08-19] MEDS: levoFLOXacin IV 500 MG/100 ML BAG 100 MG IV (12:15)
[2022-08-19] MEDS: Lidocaine 1% /Epi 1:100 (20ml) 20 ML Vial (12:28)
--- NOTE | 2022-08-19 12:46 | PCM.OPRPT ---
Problems Associated Problem List Diagnoses (1) Hematoma of left lower leg: (2) Skin necrosis: (3) Abscess of left leg: (4) Chronic anticoagulation: (5) History of pulmonary embolism: (6) History of recurrent deep vein thrombosis (DVT): (7) Former smoker: Report of Operation Date of Procedure: 08/19/22 Pre-Operative Diagnosis: (1) Hematoma of left lower leg (S80.12xA). (2) Skin necrosis (I96). (3) Abscess of left leg (L02.416). (4) Chronic anticoagulation (Z79.01). (5) History of pulmonary embolism (Z86.711). (6) History of recurrent deep vein thrombosis (DVT) (Z86.718). (7) Former smoker (Z87.891). Post-Operative Diagnosis: Same. Surgery/Procedure Performed:: Surgical preparation left lateral leg with incision and drainage and evacuation infected hematoma abscess and excisional debridement overlying skin necrosis. Description of Surgical Findings:: 76 year old female who presented to the Wound Center last week with a hematoma left lateral leg that she thought it occurred when she was hospitalized 07/09/22-07/13/22 for acute exacerbation of COPD.? She is on Warfarin for history of Afib and PEs. She was seen in the ED on 07/26/22 because of increased redness, pain, and swelling and some overlying skin necrosis.? Her INR was 5.5 in the ED. She was placed on Doxycycline.? She has a history of CHF, COPD, Pacemaker, DVT, PE, ANKUSH, chronic anticoagulation with Coumadin and is on home oxygen. Today she denies fever.? Her appetite is ok.? X-ray tib-fib reviewed from 08/08/22.? It was normal with no bony abnormalities. Patient was informed of the risks and complications of the procedure including alternatives to surgery. These were discussed with the patient personally. Patient voices understanding and wishes to proceed. Potential risks and complications included but not inclusive of bleeding, infection, hematoma, bruising, swelling, loss of sensation to skin, wound breakdown, need for wound care, poor scarring, poor aesthetic outcome, intra operative cardiac or neurologic events, DVT, PE, and reaction to anesthesia. Size of wound left lateral leg - 6 x 4 x 1.5 cm. Surgeon: Bernardo Fernandez MD vice president of business development: None Type of Anesthesia: Spinal Anesthesiologist: Monroe Lema MD and Alvaro Whiting CRNA Specimen's removed: Infected hematoma abscess left lateral leg to Pathology and Microbiology. Drains: None. Estimated Blood Loss (mL): 50. Description of Procedure: Patient was taken to OR in supine position and was given IV sedation. The left leg was prepped and draped in the usual fashion. SCD was placed on the right leg for DVT prophylaxis. Perioperative antibiotics were given intravenously. The infected hematoma abscess left lateral leg was infiltrated with xylocaine and epinephrine. After waiting 5 minutes for the anesthetic to take effect, I made an incision around the hematoma down into the subcutaneous tissue. Some pus was seen. There was some residual blood clot present that was developing a creamy texture. There was some fat necrosis that was excised and debrided. The overlying skin necrosis was also excised and debrided. The hematoma extended down to the underlying muscular fascia. The fascia was slightly bruised. The hematoma did not infiltrate into the underlying muscle. Some of the tissue was sent to Pathology for analysis to rule out carcinoma. Some of the tissue was sent to Microbiology for culture. A positive culture will necessitate antibiotic therapy. The wound was irrigated with saline. Hemostasis was obtained with electrocautery. The size of the hematoma defect after incision and drainage and evacuation infected hematoma abscess and excisional debridement overlying skin necrosis was 6 x 4 x 1.5 cm. The wound was dressed with Mepitel nonadherent dressing followed by Kerlix gauze and Betadine and followed by ABD pads and a dry Kerlix gauze. An jes wrap was used for compression. Patient tolerated the procedure well and was sent to PACU in satisfactory condition. Patient will be sent upstairs for continued postop care. Will apply the VAC tomorrow. Grafts/Implants Used: None. Procedure Start Time: 12:29 Procedure Stop Time: 12:44 Complications None. Admit VTE Documentation VTE Present on Admission: No (Patient is on Coumadin and will continue it after surgery.) VTE Mechan Device Prophylaxis: SCD's VTE Pharm Prophylaxis ordered?: Yes Addendum Addendum: Surgery Charges CPT - 18713 ICD-10 - S80.12xA, I96, L02.416, Z79.01, Z86.711, Z86.718, Z87.891 51413 L02.416, S80.12xA, I96, Z79.01, Z86.711, Z86.718, Z87.891
[2022-08-19] MEDS: Ipratropium/Albuterol Sulfate 3 ML AMPUL.NEB INHALATION ×2 (12:58→19:33)
--- NOTE | 2022-08-19 13:19 | SUR.PHASEI ---
WEARS HOME O2 AT 2 L/MIN.
[2022-08-19] MEDS: Juven (unflavored) Packet 1 PACKET PO (16:18)
[2022-08-19] MEDS: HYDROmorphone 1 MG/ML Syringe IV (16:18)
[2022-08-19] MEDS: Ondansetron ODT 4 MG Tablet PO (17:03)
[2022-08-19] MEDS: Ondansetron 4 MG/2 ML Vial IV (17:42)
[2022-08-19] MEDS: Budesonide Respules 0.5 MG/2 ML AMPUL.NEB. 0.25 MG INHALATION (19:33)
[2022-08-19] MEDS: LORazepam 0.5 MG Tablet PO (21:10)
[2022-08-19] MEDS: AcetaZOLAMIDE 250 MG Tablet PO (21:10)
[2022-08-19] MEDS: Docusate Sodium 100 MG Capsule PO (21:10)
[2022-08-19] MEDS: busPIRone 5 MG Tablet 2.5 MG PO (21:10)
[2022-08-20] VITALS (8 sets, daily range): BP systolic 105–122; BP diastolic 56–60; PULSE 57–61; RESP 16–20; TEMP 36.5–37.3; O2SAT 95–96
[2022-08-20] MEDS: Ipratropium/Albuterol Sulfate 3 ML AMPUL.NEB INHALATION ×3 (01:11→13:23)
[2022-08-20] MEDS: Acetaminophen 500 MG Tablet 1000 MG PO (04:41)
[2022-08-20 06:50] LABS: Hematocrit 35.3 % (37-47); Hemoglobin 10.4 g/dL (12.0-15.0); Mean Corp Hgb Conc 29.5 g/dL (32-36); Mean Corpuscular Hgb 28.4 pg (27.0-32.0); Mean Corpuscular Volume 96.4 fL (81-99); Mean Platelet Vol. 12.8 fl (6.2-12.0); Platelet Count 185 K/mm3 (150-450); RBC Distribution Width CV 14.7 % (11.6-14.6); RBC Distribution Width SD 51.8 fl (35.1-43.9); Red Blood Count 3.66 M/mm3 (4.2-5.4); White Blood Count 6.5 K/mm3 (4.4-11.0)
[2022-08-20 07:31] LABS: Anion Gap 5 (5-15); BUN 14 mg/dL (7-18); BUN/Creat Ratio 24.5 RATIO (10-20); Calcium,Total 8.6 mg/dL (8.5-10.1); Chloride 108 mmol/L (98-107); Creatinine, Serum 0.57 mg/dL (0.55-1.02); EST Glomerular Filtration Rate 108 mL/min (>60); Est Glom Filt Rate - Afr Amer 131 mL/min (>60); Estimated Creatinine Clearance 41.72 ml/min; Glucose 91 mg/dL (74-106); Potassium 3.4 mmol/L (3.5-5.1); Prealbumin 12.6 mg/dL (20.0-40.0); Sodium Level 143 mmol/L (136-145)
[2022-08-20] MEDS: Budesonide Respules 0.5 MG/2 ML AMPUL.NEB. 0.25 MG INHALATION (07:38)
[2022-08-20] MEDS: Potassium Chloride Oral Tablet 20 MEQ PO (09:27)
[2022-08-20] MEDS: Pantoprazole Sodium 20 MG Tablet PO (09:27)
[2022-08-20] MEDS: Polyethylene Glycol 3350 17 GM PACKET PO (09:27)
[2022-08-20] MEDS: Enoxaparin 40 MG/0.4 ML Syringe SC (09:27)
[2022-08-20] MEDS: Docusate Sodium 100 MG Capsule PO (09:28)
[2022-08-20] MEDS: Citalopram 20 MG Tablet PO (09:28)
[2022-08-20] MEDS: Furosemide 20 MG Tablet PO (09:29)
[2022-08-20] MEDS: levoFLOXacin IV 500 MG/100 ML BAG 100 MG IV (09:34)
[2022-08-20] MEDS: Albuterol 2.5 MG/3 ML VIAL.NEB. INHALATION (11:09)
--- NOTE | 2022-08-20 12:25 | CASEMGMT ---
MAGO DANIEL in to complete GALLOWAY form at this time.? MAGO DANIEL explained GALLOWAY for to patient and pt's daughter at bedside, patient and daughter voiced understanding.? Patient's daughter signed GALLOWAY Form per pt's request and form filed in chart.? Patient provided with copy of signed GALLOWAY form.? Patient had no further questions or concerns.??Savanah Huerta RN CM
--- NOTE | 2022-08-20 12:54 | NURSING ---
Dr. Fernandez in and dressing changed at this time to left lower leg. Aquacel Ag, wrapped in kerlix and jes wrap applied.
--- NOTE | 2022-08-20 13:15 | TREXTCAR_ITS ---
Diet Diet Order/Speech Therapy: 08/19/22 13:35 Diet: Regular - General Routine Orders/Code Status Suppository Type: Dulcolax 10mg Suppository Frequency: Daily PRN O2 Frequency: Continuous Routine Lab Work: CBC (one week), BMP (one week) and INR (one week) Code Status: Full Code Wound(s) Left Lower Leg: Wound Type: Open Surgical Wound (daily Silver dressing changes followed by kerlix gauze and compression jes wrap. ) Dressing Change: AntiMicrobial (Aquacel AG, etc) (When the VAC is available, may begin the VAC three times per week at 150mmHg continuous suction.) Suggestions for Active Care Change Position every (hours): 2 (while in bed and in the recliner. Patient may assist.) Therapies Weight Bearing: Full weight bearing Extremity Affected:: Left Lower Physical Therapy: Eval and Treat Problem/Diagnosis (1) Hematoma of left lower leg: Status: Chronic Code(s): S80.12XA - Contusion of left lower leg, initial encounter (2) Skin necrosis: Status: Chronic Code(s): I96 - Gangrene, not elsewhere classified (3) Abscess of left leg: Status: Chronic Code(s): L02.416 - Cutaneous abscess of left lower limb Comment: infected hematoma abscess left lateral leg (4) Chronic anticoagulation: Status: Chronic Code(s): Z79.01 - exterminator helper termite (current) use of anticoagulants Comment: with Coumadin for atrial fibrillation (5) History of pulmonary embolism: Status: Chronic Code(s): Z86.711 - Personal history of pulmonary embolism (6) History of recurrent deep vein thrombosis (DVT): Status: Chronic Code(s): Z86.718 - Personal history of other venous thrombosis and embolism (7) Former smoker: Status: Chronic Code(s): Z87.891 - Personal history of nicotine dependence Allergies/Procedures Done in Hospital Allergies amlodipine besylate [From [facility]] Adverse Reaction (Verified 08/19/22 10:48) ANKLE AND LEG EDEMA RESOLVED OFF MED-PER PCP PAPERWORK codeine Adverse Reaction (Verified 08/19/22 10:48) MENTAL STATUS CHANGE lisinopril Adverse Reaction (Verified 08/19/22 10:48) COUGH Procedures: - (08/19/22 - Surgical preparation left lateral leg with incision and drainage and evacuation infected hematoma abscess and excisional debridement overlying skin necrosis.) Type of Care/Length of Stay Estimated LOS: More Than 30 Days Type of Care Needed: Skilled Rehab Potential: Fair Prognosis: Fair Additional Orders/Day of Discharge Additional Orders: Levaquin 500mg po qdaily. H&P will serve as current which was dated: 08/19/22 Day of Discharge: 08/20/22 Follow Up Care Please Follow Up With: Salina Duffy ADMINISTRATIVE SUPPORT MANAGER, ADMINISTRATIVE SUPPORT MANAGER-C When: one week at [facility] center. Call [phone] for appt time. Discharge Plan Admission Admit Date/Time: 08/19/22 13:28 Primary Reason for Your Visit: I&D and evacuation infected hematoma abscess left lateral leg Attending Provider: Bernardo Fernandez Primary Care Provider: Tor Lucia Discharge Orders/Prescriptions Prescriptions: Continued buspirone 5 mg tablet 2.5 mg PO QHS sodium phosphates 19-7 gram/118 mL enema 118 ml AR DAILY PRN (Reason: Constipation) furosemide 20 mg tablet 20 mg PO DAILY potassium chloride 20 mEq tablet extended release 20 meq PO DAILY cholecalciferol (vitamin D3) 125 mcg (5,000 unit) tablet 125 mcg PO TH citalopram 40 MG tablet 20 mg PO DAILY Label Comments: TAKE ONE TABLET BY MOUTH EVERY DAY hot flashes omeprazole 20 MG tablet,delayed release (DR/EC) 20 mg PO DAILY budesonide 0.25 mg/2 mL suspension for nebulization 0.25 mg inhalation BID sennosides-docusate sodium 1 EACH tablet 2 tab PO QHS acetazolamide 250 MG tablet 250 mg PO BID Lactobacillus acidophilus 1 EACH capsule 1 cap PO DAILY albuterol sulfate 2.5 MG/3 ML solution for nebulization 2.5 mg INHALATION Q2H PRN PRN (Reason: Shortness of Breath/Wheezing) 0RF docusate sodium 100 MG capsule 100 mg PO BID 0RF ondansetron HCl 4 mg Tablet 4 mg PO Q4H PRN (Reason: Nausea) bisacodyl [Dulcolax (bisacodyl)] 10 mg Suppository 10 mg AR DAILY PRN (Reason: Constipation) PreserVision AREDS-2 250-90-40-1 mg Capsule 1 tab PO BID magnesium hydroxide [Milk of Magnesia] 400 mg/5 mL suspension 30 ml PO DAILY PRN (Reason: Constipation) guaifenesin [Tussin] 100 mg/5 mL Liquid 200 mg PO Q6H PRN (Reason: Cough) acetaminophen 500 mg Capsule 1,000 mg PO Q8H PRN (Reason: Pain) Hemorrhoidal (phenyleph-fat) 0.25-88.7 % Suppository 1 supp AR Q6H PRN PRN (Reason: Hemorrhoids) albuterol sulfate [Ventolin HFA] 90 mcg/actuation HFA aerosol inhaler 2 puff inhalation Q4H PRN PRN (Reason: Wheezing) Qty: 1 0RF warfarin 4 mg tablet 4 mg PO SUMOTUTHSA doxycycline hyclate 100 mg Capsule 100 mg PO BID polyethylene glycol 3350 [Miralax] 17 gram Powder In Packet 17 g PO DAILY warfarin 2.5 mg tablet 3 mg PO WEFR ipratropium-albuterol 0.5 mg-3 mg(2.5 mg base)/3 mL Solution For Nebulization 3 ml INHALATION Q4H PRN (Reason: Wheezing) tramadol 50 mg Tablet 50 mg PO Q8H MDD 150mg PRN (Reason: Pain, Moderate) Qty: 30 0RF lorazepam 0.5 mg tablet 0.5 mg PO QHS Qty: 30 0RF Referrals / Follow Up: Bernardo Fernandez MD [Med Staff - Active Staff] - (followup at wound center in one week to see JOSEPH Malhotra. call [phone] for appt time.) Tor Lucia MD [Primary Care Provider] - Disposition Disposition (needs filled in before D/C Order can be placed): [facility]
--- NOTE | 2022-08-20 13:15 | PN.SURG_ITS ---
Subjective Subjective Postop #1 Having some wound pain. Tolerated the Silver dressing change. The VAC will be placed at the [facility]. Objective Data Objective Data Vital Signs: Vital Signs Temp Pulse Resp BP Pulse Ox O2 Del Method O2 Flow Rate 97.8 F 61 20 H 105/56 L 96 Nasal Cannula 2 08/20/22 09:19 08/20/22 11:09 08/20/22 11:09 08/20/22 09:19 08/20/22 09:19 08/20/22 09:49 08/20/22 09:49 Oxygen Flow Rate (L/min) 2 Oxygen Delivery Method Nasal Cannula Weight: 158 lb 11.725 oz Body Mass Index (BMI) 26.4 Intake & Output: Intake and Output for Last 24 Hours 08/18/22 08/19/22 08/20/22 23:59 23:59 23:59 Intake Total 1100 / 1200 320 / 320 Output Total Balance 1100 / 1200 319 / 319 Lab / Micro Data Attestation: I reviewed the patient's lab results. Result Diagrams: 08/20/22 06:05 08/20/22 06:05 Labs: Laboratory Results - last 24 hr 08/20/22 06:05: WBC 6.5, RBC 3.66 L, Hgb 10.4 L, Hct 35.3 L, MCV 96.4, MCH 28.4, MCHC 29.5 L, RDW Std Deviation 51.8 H, RDW Coeff of Laura 14.7 H, Plt Count 185, MPV 12.8 H 08/20/22 06:05: Sodium 143, Potassium 3.4 L, Chloride 108 H, Carbon Dioxide 30.0, Anion Gap 5, BUN 14, Creatinine 0.57, Estim Creat Clear Calc 41.72, Est GFR (MDRD) Af Amer 131, Est GFR (MDRD) Non-Af 108, BUN/Creatinine Ratio 24.5 H, Glucose 91, Calcium 8.6, Prealbumin 12.6 L Micro: Microbiology 08/19/22 12:55 Tissue - Leg, Left Gram Stain - Final Physical Exam Narrative General - Alert and Oriented HEENT - PERRL. EOMI. Neck - Supple and nontender. Abdomen - Soft and nondistended. Extremities - No clubbing or cyanosis. Left lateral leg wound is clean. No active bleeding noted. Underlying muscle and fascia appear viable. Tolerated the Silver dressing change. Neuro - CN II-XII grossly intact. Psych - Normal mood and affect. Assessment & Plan Assessment/Plan (1) Hematoma of left lower leg: (2) Skin necrosis: (3) Abscess of left leg: (4) Chronic anticoagulation: (5) History of pulmonary embolism: (6) History of recurrent deep vein thrombosis (DVT): (7) Former smoker: PLAN: Plan Patient tolerated the Silver dressing change. The VAC will be placed at the [facility]. Operative cultures are pending. Will continue Levaquin. When the cultures are available, antibiotic modification may be necessary. Prealbumin was 12.6. Encourage nutritional supplementation with protein to help the healing process. Discharge back to the [facility] today. Followup Wound Center in one week. At the Wound Center, will discuss operative timing for skin grafting the hematoma wound.
== END 2022-08-20 16:37 | disposition skilled nursing facility (03) ==
LOC: SDC 15:49 → MS3 08-20 13:36
PROVIDERS: Admitting Provider Surgery; PCP Family Medicine; Referring Provider Surgery; Visit Provider Surgery
PROC: (CPT 15002; principal; 2022-08-19 11:25)
DX: S80.12XA Contusion of left lower leg, initial encounter (principal); I96 Gangrene, not elsewhere classified; J44.9 Chronic obstructive pulmonary disease, unspecified; I11.0 Hypertensive heart disease with heart failure; I50.32 Chronic diastolic (congestive) heart failure; I48.91 Unspecified atrial fibrillation; L02.416 Cutaneous abscess of left lower limb; E78.5 Hyperlipidemia, unspecified; Z79.01 Long term (current) use of anticoagulants; Z87.891 Personal history of nicotine dependence; Z86.711 Personal history of pulmonary embolism; Z86.718 Personal history of other venous thrombosis and embolism; Z95.0 Presence of cardiac pacemaker; Z79.899 Other long term (current) drug therapy; Z99.81 Dependence on supplemental oxygen; X58.XXXA Exposure to other specified factors, initial encounter; G47.33 Obstructive sleep apnea (adult) (pediatric)
CPT/HCPCS: 15002; 00400; 27603; 36415; 36416; 80048; 84134; 85027; 85610; 87070; 87075; 87077; 87102; 87186; 87205; 87206; 87811; 88304; 88305; 94640; 96365; 96372; 96375; 99221; 99252; J7120; G0378; G0463; J2405

== ENCOUNTER 2022-09-05 14:30 | Outpatient (RCR) | payer MEDICARE, MEDICAID, SELFPAY ==
[2022-08-17 00:46] VITALS: BP 149/58; PULSE 59; RESP 22; TEMP 36.1; BMI 24.1
[2022-08-29 10:10] VITALS: BP 132/68; PULSE 66; TEMP 35.6; BMI 24.1
--- NOTE | 2022-08-29 11:40 | PCM.WC.PN ---
History of Present Illness Date of Service: 08/29/22 Chief Complaint: Left lateral lower leg hematoma History of Wound: 76 year old female who presented to the [facility] last week with a hematoma left lateral leg that she thought it occurred when she was hospitalized 07/09/22-07/13/22 for acute exacerbation of COPD. She is on Warfarin for history of Afib and PEs. She was seen in the ED on 07/26/22 because of increased redness, pain, and swelling and some overlying skin necrosis. Her INR was 5.5 in the ED. She was placed on Doxycycline. She has a history of CHF, COPD, Pacemaker, DVT, PE, ANKUSH, chronic anticoagulation with Coumadin and is on home oxygen. Surgery 08/19/22 - Surgical preparation left lateral leg with incision and drainage and evacuation infected hematoma abscess and excisional debridement overlying skin necrosis. [facility] a wound VAC on 08/20/22. Today she denies fever. Her appetite is ok. Progress of Wound: Left lateral leg ulcer is beefy pink, caterina wound is stable. She tolerating the VAC well. Objective Data Objective Data Vital Signs: Vital Signs Temp Pulse Resp BP 96.1 F L 66 22 H 132/68 H 08/29/22 10:10 08/29/22 10:10 08/17/22 00:46 08/29/22 10:10 Weight: 154 lb Body Mass Index (BMI) 24.1 Charges/Coding Procedures Integumentary 111xxx-113xx: 62282 Global Visit Debridement Note Debridement Note Wound debrided: Lateral leg ulcer Laterality: Left Wound Grade/Stage: Stage IV Type of Debridement: Excisional debridement Anesthesia Used: 5% Lidocaine Gel Depth: Down to and including healthy tissue, in the subcutaneous layer and to muscle Percentage of wound debrided: 100 Instrument Used: 5mm curette Tissue Removed: Devitalized tissue and slough into the muscle. Severity: Fat Layer Exposed Amount of bleeding with debridement: Mild Bleeding Controlled with: Pressure and Compression and gauze Patient tolerated procedure: Patient tolerated procedure well Post-Debridement Measurements and Additional Note: Post-Debridement Measurements/Treatment VERONICA - Nurse 1 - General Ulcer Assessment Start: 08/29/22 10:10 Freq: Status: Active Protocol: OBED Activity Type Activity Date Activity User E-sign Co-sign Detail Recorded Client Recorded Date Recorded By Document 08/29/22 10:10 FRANCO [id number] 08/29/22 10:11 NC 08/29/22 10:10 WC - Today's Visit Information Type of service Follow-up Visit (Physician/ADJUNCT PROFESSOR OF VOICE ) Arrival Mode Wheelchair Patient Identification Verified (Name & Yes ) Patient Requires Transmission-Based No Precautions Safety Precautions NA Height and Weight Body Mass Index (BMI) 24.1 BMI Classification Normal Vital Signs Temperature (97.8 F-99.1 F) 96.1 F L Temperature Source Temporal Pulse Rate (60-100) 66 Pulse Location Monitor Blood Pressure (90/60-120/80) 132/68 H Blood Pressure Mean (mm Hg) 89 Source Monitor History Since Last Visit- (Skip if this is Patient's initial visit) Have you changed medications since your No last visit? Any new allergies or adverse reactions No Had a fall/change in ADL's that may No increase risk of falls Signs or symptoms of abuse and/or No neglect since last visit Have you been in the hospital since your No last visit? Has dressing in place as prescribed Yes Has compression in place as prescribed N/A Has offloadiing in place as prescribed N/A Experienced any changes in pain level or No management Left Footwear Regular Shoe Right Footwear Regular Shoe Pain Scale: 0-10 Numeric Is Patient Pain Free? No - Nurse 1 - General Ulcer Measurement Start: 08/29/22 10:10 Freq: Status: Active Protocol: Activity Type Activity Date Activity User E-sign Co-sign Detail Recorded Client Recorded Date Recorded By Document 08/29/22 10:10 FRANCO [id number] 08/29/22 10:11 NC 08/29/22 10:10 Wound Center Nurse 1 # left lateral LE -Combined with other wound No -Current Size (cm) - Length 5.5 -Current Size (cm) - Width 4 -Current Size (cm) - Depth 0.8 -Total Square Cm 22.0 -Date of Last Picture (Recall this 08/29/22 field) -Photo Taken Yes -Tunneling No -Undermining/Tunneling No -Circular Undermining No -Change in Wound Grade/Stage No -Exudate Amt Large -Exudate Type Serosanguineous -Wound Margin Distinct, Outline Attached -Granulation Amt Medium (34-66%) -Granulation Quality [place] -Slough/Fibrin Yes -Necrosis Amt Medium (34-66%) -Necrotic Tissue Type Adherent Slough -Structure Exposed N/A -Texture (Caterina-wound Skin Appearance) No Abnormality, Assessed -Moisture (Caterina-wound Skin Appearance) No Abnormality, Assessed -Color (Caterina-wound Skin Appearance) No Abnormality, Assessed -Temperature (Caterina-wound Skin No Abnormality Appearance) (Pt Warm) -Tenderness on Palpation (Caterina-wound No Skin Appearance) -Ulcer Cleansing Soap and Water -Foul Odor after Cleansing No -Anesthetic Used 4% Lidocaine Solution,5% Lidocaine Gel VERONICA - Nurse 2 - General Ulcer CM Notes Start: 08/29/22 10:10 Freq: Status: Active Protocol: Activity Type Activity Date Activity User E-sign Co-sign Detail Recorded Client Recorded Date Recorded By Document 08/29/22 10:29 NC [id number] 08/29/22 10:30 AK 08/29/22 10:29 Wound Center Nurse 2 -Time 10:29 -Correct Patient Yes -Correct Side, Site, Position Yes -Correct Procedure Yes -Procedure Performed Yes -Type of Procedure Debridement -Clinical Debridement Muscle / Fascia -Tissue Removed Muscle -Post Debridement (cm) - Length 5.8 -Post Debridement (cm) - Width 4 -Post Debridement (cm) - Depth 0.8 -Total Square (Post) (cm) 23.2 -Area of Debridement (cm) - Length 5.8 -Area of Debridement (cm) - Width 4.0 -Total Square (Area) (cm) 23.20 -Tunneling No -Undermining/Tunneling No -Circular Undermining No -Wound/Ulcer Outcome Not Healed -Ulcer Cleansing Rinsed/ Irrigated with Saline -Foul Odor after Cleansing No -Bioengineered Tissue No -Bleeding Controlled with Pressure -Treatment Response Procedure Tolerated Well -Offloading No -Debridement - Muscle / Fascia, 1st Yes 20sq cm -Debridement, Muscle/Fascia, ea addt'l 1 20sq cm or part thereof Pain Scale: 0-10 Numeric Is Patient Pain Free? Yes - Nurse 3 - General Ulcer D/C NN Start: 08/29/22 10:10 Freq: Status: Active Protocol: Activity Type Activity Date Activity User E-sign Co-sign Detail Recorded Client Recorded Date Recorded By Document 08/29/22 10:57 [facility] [id number] 08/29/22 10:59 BMF 08/29/22 10:57 Wound Care Center Nurse 3 # left lateral LE -Ulcer Cleansing Rinsed/ Irrigated with Saline -Foul Odor after Cleansing No -Negative Pressure Wound Therapy Continue -Setting (mmHg) 150 -Negative Pressure is Continuous -NPWT Application Charge NPWT & Debridement (nc ) Treatment Response Procedure Tolerated Well Pain Scale: 0-10 Numeric Is Patient Pain Free? Yes WC - Visit Discharge Discharge Condition Stable Ambulatory Status Wheelchair Accompanied by paola Notes: pt adamant vac tubing be directed out bottom of pant leg. this nurse advised against for safety/fall risk. pts paola in room. pt refused nurse to run the tubing up her leg out the top of her pants. Assessment/Plan Assessment/Plan (1) Ulcer of left lower extremity with muscle involvement without evidence of necrosis: CODE(S): L97.925 - Non-pressure chronic ulcer of unspecified part of left lower leg with muscle involvement without evidence of necrosis (2) Hematoma of left lower leg: CODE(S): S80.12XA - Contusion of left lower leg, initial encounter (3) Skin necrosis: CODE(S): I96 - Gangrene, not elsewhere classified (4) Abscess of left leg: CODE(S): L02.416 - Cutaneous abscess of left lower limb (5) Chronic anticoagulation: CODE(S): Z79.01 - senior care (current) use of anticoagulants (6) History of pulmonary embolism: CODE(S): Z86.711 - Personal history of pulmonary embolism (7) History of recurrent deep vein thrombosis (DVT): CODE(S): Z86.718 - Personal history of other venous thrombosis and embolism (8) Former smoker: CODE(S): Z87.891 - Personal history of nicotine dependence PLAN: Plan Patient evaluated at the wound healing center. Wound care - Wound VAC to left lateral leg ulcer at 150 mmHg 3 times per week. Wash wound and caterina wound with soap and water at the time of the VAC change. Compression - CANDIE wrap for compression to left leg. Operative culture positive for MRSE - She was initially started on Doxycycline but it is resistant to the bacteria. Switched her to Linezolid. She did stop her Citalopram and Buspirone while she is taking the Linezolid due to medication interaction. Pathology of the soft tissue of left leg showed Skin with underlying tissue with focal ulceration and associated acute inflammation. Underlying tissue with hematoma, associated fat necrosis, chronic inflammation, foreign body giant cell reaction and histiocytic reaction. Keep leg elevated. Follow up one week.
[2022-09-05 14:52] VITALS: BP 131/72; PULSE 60; RESP 16; TEMP 35.3; BMI 24.1
--- NOTE | 2022-09-05 16:08 | PCM.WC.PN ---
History of Present Illness Date of Service: 09/05/22 Chief Complaint: Left lateral lower leg hematoma History of Wound: 76 year old female who presented to the Wound Center last week with a hematoma left lateral leg that she thought it occurred when she was hospitalized 07/09/22-07/13/22 for acute exacerbation of COPD. She is on Warfarin for history of Afib and PEs. She was seen in the ED on 07/26/22 because of increased redness, pain, and swelling and some overlying skin necrosis. Her INR was 5.5 in the ED. She was placed on Doxycycline. She has a history of CHF, COPD, Pacemaker, DVT, PE, ANKUSH, chronic anticoagulation with Coumadin and is on home oxygen. Surgery 08/19/22 - Surgical preparation left lateral leg with incision and drainage and evacuation infected hematoma abscess and excisional debridement overlying skin necrosis. She was discharged back [facility] with a wound VAC on 08/20/22. Today she denies fever. Her appetite is ok. Progress of Wound: Left lateral leg ulcer is beefy pink, smaller in size, caterina wound is stable. She tolerating the VAC well. Objective Data Objective Data Vital Signs: Vital Signs Temp Pulse Resp BP O2 Del Method 95.5 F L 60 16 131/72 H Nasal Cannula 09/05/22 14:52 09/05/22 14:52 09/05/22 14:52 09/05/22 14:52 09/05/22 14:52 Oxygen Delivery Method Nasal Cannula Weight: 154 lb Body Mass Index (BMI) 24.1 Charges/Coding Procedures Integumentary 111xxx-113xx: 52597 Global Visit Debridement Note Debridement Note Wound debrided: Lateral leg ulcer Laterality: Left Wound Grade/Stage: Stage IV Type of Debridement: Excisional debridement Anesthesia Used: 5% Lidocaine Gel Depth: Down to and including healthy tissue, in the subcutaneous layer and to muscle Percentage of wound debrided: 100 Instrument Used: 5mm curette Tissue Removed: Devitalized tissue and slough into the muscle. Severity: Fat Layer Exposed Amount of bleeding with debridement: Mild Bleeding Controlled with: Pressure and Compression and gauze Patient tolerated procedure: Patient tolerated procedure well Post-Debridement Measurements and Additional Note: Post-Debridement Measurements/Treatment VERONICA - Nurse 1 - General Ulcer Assessment Start: 08/29/22 10:10 Freq: Status: Active Protocol: WC.LOWEXT Activity Type Activity Date Activity User E-sign Co-sign Detail Recorded Client Recorded Date Recorded By Document 08/29/22 10:10 CT [id number] 08/29/22 10:11 CT Document 09/05/22 14:52 [facility] [id number] 09/05/22 15:03 [facility] 08/29/22 09/05/22 10:10 14:52 - Today's Visit Information Type of service Follow-up Visit Follow-up Visit (Physician/ORTHOPEDIC TECHNICIAN (Physician/ORTHOPEDIC TECHNICIAN ) ) Arrival Mode Wheelchair Wheelchair Transfer Assistance Other Transfer Assist (Other) stand by Accompanied by paola Patient Identification Verified (Name & Yes Yes ) Patient Requires Transmission-Based No No Precautions Safety Precautions NA Height and Weight Body Mass Index (BMI) 24.1 24.1 BMI Classification Normal Normal Vital Signs Temperature (97.8 F-99.1 F) 96.1 F L 95.5 F L Temperature Source Temporal Temporal Pulse Rate (60-100) 66 60 Pulse Location Monitor Monitor Respiratory Rate (12-18) 16 Respiratory rate source Observation Oxygen Delivery Method Nasal Cannula Blood Pressure (90/60-120/80) 132/68 H 131/72 H Blood Pressure Mean (mm Hg) 89 91 Source Monitor Monitor Position Sitting Blood Pressure Location Right Arm History Since Last Visit- (Skip if this is Patient's initial visit) Have you changed medications since your No No last visit? Any new allergies or adverse reactions No No Had a fall/change in ADL's that may No No increase risk of falls Signs or symptoms of abuse and/or No No neglect since last visit Have you been in the hospital since your No No last visit? Has dressing in place as prescribed Yes No Has compression in place as prescribed N/A N/A Has offloadiing in place as prescribed N/A N/A Experienced any changes in pain level or No management Left Footwear Regular Shoe Slipper Right Footwear Regular Shoe Regular Shoe Pain Scale: 0-10 Numeric Is Patient Pain Free? No Yes - Nurse 1 - General Ulcer Measurement Start: 08/29/22 10:10 Freq: Status: Active Protocol: Activity Type Activity Date Activity User E-sign Co-sign Detail Recorded Client Recorded Date Recorded By Document 08/29/22 10:10 CT [id number] 08/29/22 10:11 CT Document 09/05/22 14:52 [facility] [id number] 09/05/22 15:03 [facility] 08/29/22 09/05/22 10:10 14:52 Wound Center Nurse 1 # left lateral LE -Combined with other wound No No -Current Size (cm) - Length 5.5 5.8 -Current Size (cm) - Width 4 3.7 -Current Size (cm) - Depth 0.8 0.5 -Total Square Cm 22.0 21.46 -Date of Last Picture (Recall this 08/29/22 09/05/22 field) -Photo Taken Yes Yes -Epithelialization Small 1-33% -Tunneling No No -Undermining/Tunneling No No -Circular Undermining No No -Change in Wound Grade/Stage No -Exudate Amt Large Medium -Exudate Type Serosanguineous Serosanguineous -Wound Margin Distinct, Distinct, Outline Outline Attached Attached -Granulation Amt Medium (34-66%) Large (67-100%) -Granulation Quality [place] -Slough/Fibrin Yes Yes -Necrosis Amt Medium (34-66%) Small (1-33%) -Necrotic Tissue Type Adherent Slough Adherent Slough -Structure Exposed N/A -Texture (Caterina-wound Skin Appearance) No Abnormality, Assessed, Assessed Scarring -Moisture (Caterina-wound Skin Appearance) No Abnormality, Assessed Assessed -Color (Caterina-wound Skin Appearance) No Abnormality, Assessed Assessed -Temperature (Caterina-wound Skin No Abnormality No Abnormality Appearance) (Pt Warm) (Pt Warm) -Tenderness on Palpation (Caterina-wound No Yes Skin Appearance) -Ulcer Cleansing Soap and Water Soap and Water -Foul Odor after Cleansing No No -Anesthetic Used 4% Lidocaine 5% Lidocaine Solution,5% Gel Lidocaine Gel WC - Nurse 2 - General Ulcer CM Notes Start: 08/29/22 10:10 Freq: Status: Active Protocol: Activity Type Activity Date Activity User E-sign Co-sign Detail Recorded Client Recorded Date Recorded By Document 08/29/22 10:29 [place] [id number] 08/29/22 10:30 AK Document 09/05/22 15:12 MILAGROS [id number] 09/05/22 15:14 MILAGROS 08/29/22 09/05/22 10:29 15:12 Wound Center Nurse 2 # left lateral LE -Time 10:29 15:13 -Correct Patient Yes Yes -Correct Side, Site, Position Yes Yes -Correct Procedure Yes Yes -Procedure Performed Yes Yes -Type of Procedure Debridement Debridement -Clinical Debridement Muscle / Fascia Muscle / Fascia -Tissue Removed Muscle Muscle,Fascia -Post Debridement (cm) - Length 5.8 5.8 -Post Debridement (cm) - Width 4 4.2 -Post Debridement (cm) - Depth 0.8 0.7 -Total Square (Post) (cm) 23.2 24.36 -Area of Debridement (cm) - Length 5.8 5.8 -Area of Debridement (cm) - Width 4.0 4.2 -Total Square (Area) (cm) 23.20 24.36 -Tunneling No Yes -Tunneling Position (O'clock) 12 -Tunneling Distance (cm) 0.5 -Undermining/Tunneling No No -Circular Undermining No No -Wound/Ulcer Outcome Not Healed Not Healed -Ulcer Cleansing Rinsed/ Rinsed/ Irrigated with Irrigated with Saline Saline -Foul Odor after Cleansing No No -Bioengineered Tissue No No -Bleeding Controlled with Pressure Pressure -Treatment Response Procedure Procedure Tolerated Well Tolerated Well -Offloading No No -Debridement - Muscle / Fascia, 1st Yes Yes 20sq cm -Debridement, Muscle/Fascia, ea addt'l 1 1 20sq cm or part thereof Pain Scale: 0-10 Numeric Is Patient Pain Free? Yes Yes - Nurse 3 - General Ulcer D/C NN Start: 08/29/22 10:10 Freq: Status: Active Protocol: Activity Type Activity Date Activity User E-sign Co-sign Detail Recorded Client Recorded Date Recorded By Document 08/29/22 10:57 [facility] [id number] 08/29/22 10:59 [facility] Document 09/05/22 15:54 [place] [id number] 09/05/22 15:55 AK 08/29/22 09/05/22 10:57 15:54 Wound Care Center Nurse 3 # left lateral LE -Ulcer Cleansing Rinsed/ Rinsed/ Irrigated with Irrigated with Saline Saline -Foul Odor after Cleansing No No -Negative Pressure Wound Therapy Continue Continue -Setting (mmHg) 150 150 -Negative Pressure is Continuous -Regranex (If Applicable) Continue -NPWT Application Charge NPWT & NPWT & Debridement (nc Debridement (nc ) ) Treatment Response Procedure Tolerated Well Pain Scale: 0-10 Numeric Is Patient Pain Free? Yes No WC - Visit Discharge Discharge Condition Stable Stable Ambulatory Status Wheelchair Wheelchair Transportation Private Auto Accompanied by paola daughter Medication Reconcilliation completed & Yes provided to patient/care provider Clinical Summary of Care Provided Yes Notes: pt adamant vac tubing be directed out bottom of pant leg. this nurse advised against for safety/fall risk. pts paola in room. pt refused nurse to run the tubing up her leg out the top of her pants. Assessment/Plan Assessment/Plan (1) Ulcer of left lower extremity with muscle involvement without evidence of necrosis: CODE(S): L97.925 - Non-pressure chronic ulcer of unspecified part of left lower leg with muscle involvement without evidence of necrosis (2) Hematoma of left lower leg: CODE(S): S80.12XA - Contusion of left lower leg, initial encounter (3) Skin necrosis: CODE(S): I96 - Gangrene, not elsewhere classified (4) Abscess of left leg: CODE(S): L02.416 - Cutaneous abscess of left lower limb (5) Chronic anticoagulation: CODE(S): Z79.01 - terminal gauger (current) use of anticoagulants (6) History of pulmonary embolism: CODE(S): Z86.711 - Personal history of pulmonary embolism (7) History of recurrent deep vein thrombosis (DVT): CODE(S): Z86.718 - Personal history of other venous thrombosis and embolism (8) Former smoker: CODE(S): Z87.891 - Personal history of nicotine dependence PLAN: Plan Patient evaluated at the wound healing center. Wound care - Wound VAC to left lateral leg ulcer at 150 mmHg 3 times per week. Wash wound and caterina wound with soap and water at the time of the VAC change. Compression - CANDIE wrap for compression to left leg. Operative culture positive for MRSE - She was initially started on Doxycycline but it is resistant to the bacteria. Switched her to Linezolid. She did stop her Citalopram and Buspirone while she is taking the Linezolid due to medication interaction. Pathology of the soft tissue of left leg showed Skin with underlying tissue with focal ulceration and associated acute inflammation. Underlying tissue with hematoma, associated fat necrosis, chronic inflammation, foreign body giant cell reaction and histiocytic reaction. Keep leg elevated. Follow up two weeks.
== END 2022-09-13 23:59 | disposition home or self-care (01) ==
LOC: WC 14:30
PROVIDERS: PCP Family Medicine; Visit Provider Nurse Practitioner Family
DX: L97.822 Non-pressure chronic ulcer of other part of left lower leg with fat layer exposed (principal); I96 Gangrene, not elsewhere classified; J44.9 Chronic obstructive pulmonary disease, unspecified; I50.9 Heart failure, unspecified; I48.91 Unspecified atrial fibrillation; L02.416 Cutaneous abscess of left lower limb; S80.12XS Contusion of left lower leg, sequela; X58.XXXS Exposure to other specified factors, sequela; Z99.81 Dependence on supplemental oxygen; Z79.01 Long term (current) use of anticoagulants; Z79.899 Other long term (current) drug therapy; Z86.711 Personal history of pulmonary embolism; Z95.0 Presence of cardiac pacemaker; Z86.718 Personal history of other venous thrombosis and embolism
CPT/HCPCS: 11043; 11046

== ENCOUNTER 2022-09-25 16:15 | Emergency (ER) | payer MEDICARE, MEDICAID, SELFPAY ==
[2022-09-25] VITALS (7 sets, daily range): BP systolic 155–174; BP diastolic 70–92; PULSE 60–74; RESP 22–26; TEMP 35.8–36.9; O2SAT 96–100; BMI 28.3
--- NOTE | 2022-09-25 16:26 | EKG12_ITS ---
Test Reason : Blood Pressure : / mmHG Vent. Rate : 060 BPM Atrial Rate : 041 BPM P-R Int : 000 ms QRS Dur : 124 ms QT Int : 472 ms P-R-T Axes : 000 -69 096 degrees QTc Int : 472 ms Ventricular-paced rhythm Abnormal ECG Confirmed by CARLIE BHAT, KATELYN ([id number]), legal editor PABLITO TRUONG ([id number]) on 09/26/2022 1:56:32 PM Referred By: PAUL Confirmed By:KATELYN SEXTON MD
--- NOTE | 2022-09-25 16:28 | EDS_ITS ---
HPI History of Present Illness Chief Complaint: Shortness of Breath Informant: patient Onset/Context/Timing Onset: Yesterday Context: gradual Timing: Continuous Current Severity: Severe Maximum Severity: Severe Worsened by: Nothing Relieved by: Nothing Associated Symptoms Negative for cough Chest Pain: Positive for Continuous and - (Nonpleuritic diffuse anterior heaviness without radiation) Narrative Narrative: Patient with gradual onset of chest heaviness and dyspnea starting last night and getting worse today. She states she is at a custodial, nurses increase her chronic 2 L nasal cannula up to 3 but she does not know if she was hypoxic or not. She was sent here due to being worse. She has not received any breathing treatments according to her prior to her arrival here in my evaluation. She is a poor historian. She states that she had surgery on her left lower leg recently but does not know why or what was done. When I go to remove the dressing so that I can evaluate it and ask her about it she refuses and asks me to leave it alone. [facility] Medical History Abscess of left leg Anemia Arthritis Atrial fibrillation AV block, complete BiPAP (biphasic positive airway pressure) dependence Cardiology follow-up encounter Chronic anticoagulation COPD (chronic obstructive pulmonary disease) Diabetes Difficulty swallowing DVT (deep venous thrombosis) Dyslipidemia Elevated troponin Essential hypertension Essential hypertension Former smoker Former tobacco use Heart failure with preserved ejection fraction Hematoma Hematoma of left lower leg History of atrial fibrillation History of CHF (congestive heart failure) History of DVT (deep vein thrombosis) History of echocardiogram History of edema History of irregular heartbeat History of pacemaker History of pulmonary embolism History of pulmonary embolus (PE) History of recurrent deep vein thrombosis (DVT) History of steroid therapy Injury of back Low iron Non-smoker On home oxygen therapy Post-menopausal Presence of permanent cardiac pacemaker (~10/12/20) Pulmonary embolism Pulmonary HTN Shortness of breath on exertion Skin necrosis Sleep apnea Tachycardia-bradycardia syndrome Uses wheelchair Venous insufficiency Walker as ambulation aid Wears glasses Wound abscess Home Medications citalopram 40 mg tablet 20 mg PO DAILY DEPRESSION 05/23/18 [History Last Taken 09/01/20 10:44] omeprazole 20 mg tablet,delayed release 20 mg PO DAILY GERD 01/17/19 [History Last Taken 09/01/20 10:44] sennosides 8.6 mg-docusate sodium 50 mg tablet 2 tab PO QHS CONSTIPATION 08/22/19 [History Last Taken 08/31/20 20:26] Lactobacillus acidophilus 1 cap PO DAILY [facility] 08/20/20 [History Last Taken 09/01/20 10:42] acetazolamide 250 mg tablet 250 mg PO BID EDEMA 08/20/20 [History Last Taken 09/01/20 08:00] albuterol sulfate 2.5 mg/3 mL (0.083 %) solution for nebulization 2.5 mg (3 mL) inhalation Q2H PRN PRN Shortness of Breath/Wheezing 09/05/20 [Rx Last Taken Unknown] docusate sodium 100 mg capsule 100 mg PO BID 09/05/20 [Rx Last Taken Unknown] bisacodyl 10 mg rectal suppository (Dulcolax (bisacodyl)) 10 mg MA DAILY PRN Constipation 07/14/21 [History Last Taken Unknown] ondansetron HCl 4 mg tablet 4 mg PO Q4H PRN Nausea 07/14/21 [History Last Taken Unknown] vit C 250 mg-vit E 90 mg-zinc 40 mg-copper 1 [id number] capsule (PreserVision AREDS-2) 1 tab PO BID 07/14/21 [History Last Taken Unknown] budesonide 0.25 mg/2 mL suspension for nebulization 0.25 mg inhalation BID COPD 01/14/22 [History Last Taken Unknown] buspirone 5 mg tablet 2.5 mg PO QHS 01/14/22 [History Last Taken Unknown] cholecalciferol (vitamin D3) 125 mcg (5,000 unit) tablet 125 mcg PO TH 01/14/22 [History Last Taken Unknown] furosemide 20 mg tablet 20 mg PO DAILY 01/14/22 [History Last Taken Unknown] magnesium hydroxide 400 mg/5 mL oral suspension (Milk of Magnesia) 30 ml PO DAILY PRN Constipation 01/14/22 [History Last Taken Unknown] potassium chloride 20 mEq tablet,extended release 20 meq PO DAILY 01/14/22 [History Last Taken Unknown] sodium phosphates 19 gram-7 gram/118 mL enema 118 ml MA DAILY PRN Constipation 01/14/22 [History Last Taken Unknown] acetaminophen 500 mg capsule 1,000 mg PO Q8H PRN Pain 04/14/22 [History Last Taken Unknown] albuterol sulfate 90 mcg/actuation aerosol inhaler (Ventolin HFA) 2 puff inhalation Q4H PRN PRN Wheezing ##1 04/14/22 [Rx Last Taken Unknown] guaifenesin 100 mg/5 mL oral liquid (Tussin) 200 mg PO Q6H PRN Cough 04/14/22 [History Last Taken Unknown] phenylephrine 0.25 %-hard fat 88.7 % rectal suppository (Hemorrhoidal (phenylephrine-hard fat)) 1 supp MA Q6H PRN PRN Hemorrhoids 04/14/22 [History Last Taken Unknown] warfarin 4 mg tablet 4 mg PO SUMOTUTHSA 07/26/22 [History Last Taken 08/14/22] doxycycline hyclate 100 mg capsule 100 mg PO BID 08/01/22 [History Last Taken Unknown] polyethylene glycol 3350 17 gram oral powder packet (Miralax) 17 g PO DAILY 08/11/22 [History Last Taken Unknown] warfarin 2.5 mg tablet 3 mg PO WEFR 08/11/22 [History Last Taken 08/14/22] ipratropium 0.5 mg-albuterol 3 mg (2.5 mg base)/3 mL nebulization soln 3 ml inhalation Q4H PRN Wheezing 08/20/22 [History Last Taken Unknown] lorazepam 0.5 mg tablet 0.5 mg PO QHS ANXIETY #30 tabs 08/20/22 [Rx Last Taken Unknown] tramadol 50 mg tablet 50 mg PO Q8H PRN Pain, Moderate #30 tabs 08/20/22 [Rx Last Taken Unknown] doxycycline monohydrate 100 mg capsule 100 mg PO BID #14 CAPSULES 09/25/22 [Rx Last Taken Unknown] prednisone 20 mg tablet 40 mg PO Q24H 4 days #8 TABLETS 09/25/22 [Rx Last Taken Unknown] Allergy/AdvReac Type Severity Reaction Status Date / Time amlodipine besylate AdvReac ANKLE AND Verified 09/25/22 16:16 [From [facility]] LEG EDEMA codeine AdvReac MENTAL Verified 09/25/22 16:16 STATUS CHANGE lisinopril AdvReac COUGH Verified 09/25/22 16:16 Family History Sister Heart disease Surgical History History of cholecystectomy History of total hysterectomy Hx of atrioventricular node ablation tailbone surgery Social History household members: none housing: custodial Smoking Status: Former smoker how long ago did patient quit smoking: Approxiomately 2003 alcohol intake: never substance use type: does not use caffeine: No ROS ROS ED Constitutional Constitutional ED: Denies chills or fever(s) Eyes Eyes: Denies change in vision or diplopia ENT ENT ED: Denies rhinorrhea or sore throat Cardiovascular Cardiovascular: Reports chest pain, leg edema and other Details: Chronic bilateral leg edema improved compared with usual ; Denies palpitations Respiratory/Chest Respiratory/Chest: Reports dyspnea; Denies cough Gastrointestinal Gastrointestinal: Denies abdominal pain, diarrhea, nausea or vomiting Genitourinary Genitourinary ED: Denies dysuria or hematuria Musculoskeletal Musculoskeletal: Reports extremity pain; Denies back pain or neck pain Integumentary Reports other Details: Postoperative left lower leg wound see HPI ; Denies abscess or rash Neurologic Neurologic: Denies headache(s), paresthesias or weakness Psychiatric Psychiatric: Denies anxiety or suicidal thoughts EXAM Physical Exam Const Vital Signs: 09/25/22 16:17 09/25/22 16:35 09/25/22 16:19 Temperature 98 F 97.8 F Temperature Source Temporal Oral Pulse Rate 60 60 Respiratory Rate 24 H 26 H Respiratory Effort Labored Respiratory Depth Shallow Respiratory Pattern Blood Pressure 165/75 H 162/92 H Blood Pressure Mean 105 115 Pulse Ox 96 100 Oxygen Delivery Method Nasal Cannula Nasal Cannula Nasal Cannula Oxygen Flow Rate (L/min) 3 3 3 09/25/22 17:04 09/25/22 17:28 09/25/22 18:27 Temperature 97.8 F 96.4 F L Temperature Source Oral Temporal Pulse Rate 74 60 60 Respiratory Rate 24 H 24 H 22 H Respiratory Effort Respiratory Depth Respiratory Pattern Tachypnea Blood Pressure 157/73 H 155/72 H Blood Pressure Mean 101 99 Pulse Ox 99 100 Oxygen Delivery Method Nasal Cannula Nasal Cannula Oxygen Flow Rate (L/min) 3 3 09/25/22 18:27 Temperature 96.6 F L Temperature Source Temporal Pulse Rate 60 Respiratory Rate 22 H Respiratory Effort Respiratory Depth Respiratory Pattern Blood Pressure 155/72 H Blood Pressure Mean 99 Pulse Ox 100 Oxygen Delivery Method Nasal Cannula Oxygen Flow Rate (L/min) 3 Positive well nourished and well developed General Appearance ED: well developed HEENT Reports moist mucous membranes normocephalic and atraumatic Eyes PERRL and EOMs intact bilaterally Neck full ROM, no lymphadenopathy, supple and no meningeal signs Neck Narrative: Mild JVD present Resp Resp Narrative: Mild respiratory distress speaking in 3-5 word sentences, diffuse expiratory wheezing and very diminished throughout, prolonged expiratory phase, no rales or rhonchi. Cardio regular rate and regular rhythm Cardio Narrative: diminished throughout GI non-tender and non-distended Auscultation: normoactive bowel sounds Palpation: soft Back/Spine no CVA tenderness General Back: other FROM Extremity normal to inspection Extremity Narrative: Symmetric bilateral lower extremity edema. Very tender, withdrawals and yells at examiner. Dressing with Kerlix intact left lower leg, clean and dry. Patient refuses to have me remove it and evaluate her wound. General Extremety ED: Yes edema; Negative for pulses abnormal or tenderness General Extremity: edema bilateral lower extremity Details: moderate; Negative for pulses abnormal Neuro oriented x3, CN's II-XII intact bilaterally and no sensory deficits noted Sensorium / Orientation: awake and alert Motor Exam: strength 5/5 throughout Skin no rashes or lesions noted and no wounds MDM MDM MDM Narrative Medical decision making narrative: Empirically treated with aerosols while work-up was obtained given her history of congestive heart failure, clinically having chest heaviness, as well as a history of COPD. The patient states that she just wants prednisone, and apparently the nurse practitioner at the custodial would not just give it to her, which I do not disagree with given her history and having chest discomfort. The aerosols really helped her breathing. She was in no respiratory distress on reevaluation, still with some wheezing but less of a prolonged expiratory phase. The work-up is consistent with COPD exacerbation causing her symptoms. Her EKG shows a paced and capture without any acute injury pattern, or changes. Troponin is negative, BNP is slightly elevated but not very high, not suggesting acute decompensated congestive heart failure. She apparently had an abscess on her left leg. She understands that she will let me look at it in order to see if she has an acute infection or not. She wants prednisone for her lungs, I do not disagree that the risks of possibly worsening infection increased are probably outweighed by her need to breathe comfortably. It does not appear according to the custodial paperwork sent that she is currently on an antibiotic. Therefore I am sending her with a prescription for doxycycline in addition to a short burst of prednisone. Disposition: Discharged back to assisted facility History & Record Review Additional record(s) reviewed:: Other (shelter records that were sent with the patient including medication list and DNR CCA form signed by the patient) Lab Data Attestation: I reviewed the patient's lab results. Labs: Laboratory Results - last 24 hr 09/25/22 09/25/22 09/25/22 16:30 16:30 16:30 WBC 8.0 RBC 3.52 L Hgb 9.7 L Hct 33.7 L MCV 95.7 MCH 27.6 MCHC 28.8 L RDW Std Deviation 52.9 H RDW Coeff of Laura 15.4 H Plt Count 423 MPV 12.1 H Immature Gran % (Auto) 0.200 Neut % (Auto) 69.7 Lymph % (Auto) 21.1 [place] % (Auto) 6.2 Eos % (Auto) 2.2 Baso % (Auto) 0.6 Absolute Neuts (auto) 5.6 Absolute Lymphs (auto) 1.69 Nucleated RBC % 0 Sodium 146 H Potassium 4.2 Chloride 110 H Carbon Dioxide 30.0 Anion Gap 6 BUN 15 Creatinine 0.62 Estim Creat Clear Calc 40.04 Est GFR (MDRD) Af Amer 120 Est GFR (MDRD) Non-Af 99 BUN/Creatinine Ratio 24.2 H Glucose 102 Calcium 8.7 Troponin I High Sens 14 B-Natriuretic Peptide 166.0 H Radiography Diagnostic Testing: Clinical Impression(s) from Imaging Studies Chest X-Ray 09/25/22 17:08 IMPRESSION: Degenerative changes, as described above. No demonstrated acute cardiopulmonary process. No major interval change. Electronically Signed: Nikko Olivarez DO at 17:21 EDT Reading Location ID and State: [address] [place] [address] Tel [phone], Service support , Rhythm Strip Rhythm Strip: Paced Rate: 60 Ectopy: None EKG Initial EKG: Attestation: I personally reviewed and interpreted this EKG as follows: Interpretation: Paced Prior EKG tracings: available for review Prior: Unchanged Discharge Plan Triage Chief Complaint: Shortness of Breath ED Provider: Aries He Dx/Rx/DC Orders Clinical Impression: Acute exacerbation of chronic obstructive pulmonary disease Instructions: ED COPD Flare Prescriptions: New prednisone 20 mg tablet 40 mg PO Q24H 4 Days Qty: 8 0RF Rx Instructions: start 09/26, with dinner doxycycline monohydrate 100 mg capsule 100 mg PO BID Qty: 14 0RF No Action buspirone 5 mg tablet 2.5 mg PO QHS sodium phosphates 19-7 gram/118 mL enema 118 ml MA DAILY PRN (Reason: Constipation) furosemide 20 mg tablet 20 mg PO DAILY potassium chloride 20 mEq tablet extended release 20 meq PO DAILY cholecalciferol (vitamin D3) 125 mcg (5,000 unit) tablet 125 mcg PO TH citalopram 40 MG tablet 20 mg PO DAILY Label Comments: TAKE ONE TABLET BY MOUTH EVERY DAY hot flashes omeprazole 20 MG tablet,delayed release (DR/EC) 20 mg PO DAILY budesonide 0.25 mg/2 mL suspension for nebulization 0.25 mg inhalation BID sennosides-docusate sodium 1 EACH tablet 2 tab PO QHS acetazolamide 250 MG tablet 250 mg PO BID Lactobacillus acidophilus 1 EACH capsule 1 cap PO DAILY albuterol sulfate 2.5 MG/3 ML solution for nebulization 2.5 mg INHALATION Q2H PRN PRN (Reason: Shortness of Breath/Wheezing) 0RF docusate sodium 100 MG capsule 100 mg PO BID 0RF ondansetron HCl 4 mg Tablet 4 mg PO Q4H PRN (Reason: Nausea) bisacodyl [Dulcolax (bisacodyl)] 10 mg Suppository 10 mg MA DAILY PRN (Reason: Constipation) PreserVision AREDS-2 250-90-40-1 mg Capsule 1 tab PO BID magnesium hydroxide [Milk of Magnesia] 400 mg/5 mL suspension 30 ml PO DAILY PRN (Reason: Constipation) guaifenesin [Tussin] 100 mg/5 mL Liquid 200 mg PO Q6H PRN (Reason: Cough) acetaminophen 500 mg Capsule 1,000 mg PO Q8H PRN (Reason: Pain) Hemorrhoidal (phenyleph-fat) 0.25-88.7 % Suppository 1 supp MA Q6H PRN PRN (Reason: Hemorrhoids) albuterol sulfate [Ventolin HFA] 90 mcg/actuation HFA aerosol inhaler 2 puff inhalation Q4H PRN PRN (Reason: Wheezing) Qty: 1 0RF warfarin 4 mg tablet 4 mg PO SUMOTUTHSA doxycycline hyclate 100 mg Capsule 100 mg PO BID polyethylene glycol 3350 [Miralax] 17 gram Powder In Packet 17 g PO DAILY warfarin 2.5 mg tablet 3 mg PO WEFR ipratropium-albuterol 0.5 mg-3 mg(2.5 mg base)/3 mL Solution For Nebulization 3 ml INHALATION Q4H PRN (Reason: Wheezing) tramadol 50 mg Tablet 50 mg PO Q8H MDD 150mg PRN (Reason: Pain, Moderate) Qty: 30 0RF lorazepam 0.5 mg tablet 0.5 mg PO QHS Qty: 30 0RF Primary Care Provider: Tor Lucia Referrals: Tor Lucia MD [Primary Care Provider] - 3-5 Days Disposition Disposition: Group Home Facility
[2022-09-25 16:46] LABS: Absolute Lymphocyte Count 1.69 X10^3/uL (0.83-4.51); Absolute Neutrophil Count 5.6 X10^3/uL (2.0-7.7); Basophil# 0.05 X10^3/uL; Basophil% 0.6 % (0-1); Eosinophil# 0.18 X10^3/uL; Eosinophils% 2.2 % (0-5); Hematocrit 33.7 % (37-47); Hemoglobin 9.7 g/dL (12.0-15.0); Lymphocyte # 1.69 X10^3/ul (0.83-4.51); Lymphocyte % 21.1 % (19-41); Mean Corp Hgb Conc 28.8 g/dL (32-36); Mean Corpuscular Hgb 27.6 pg (27.0-32.0); Mean Corpuscular Volume 95.7 fL (81-99); Mean Platelet Vol. 12.1 fl (6.2-12.0); Monocyte% 6.2 % (0-10); NRBC Flagged by Analyzer 0 % (0-5); Neutrophil # 5.58 X10^3/uL (2.7-7.7); Neutrophil % 69.7 % (47-70); Platelet Count 423 K/mm3 (150-450); RBC Distribution Width CV 15.4 % (11.6-14.6); RBC Distribution Width SD 52.9 fl (35.1-43.9); Red Blood Count 3.52 M/mm3 (4.2-5.4)
[2022-09-25] MEDS: Albuterol 2.5 MG/3 ML VIAL.NEB. INHALATION (17:04)
[2022-09-25] MEDS: Ipratropium/Albuterol Sulfate 3 ML AMPUL.NEB INHALATION (17:04)
--- NOTE | 2022-09-25 17:08 | RAD_ITS ---
STUDY: X-RAY CHEST REASON FOR EXAM: Female, 76 years old. Chest pain. Shortness of breath. TECHNIQUE: Single AP portable view of the chest. COMPARISON: July 08, 2022. FINDINGS: Stable elevation left hemidiaphragm. Lungs are clear. There is no demonstrated pleural abnormality. Normal size heart. Stable pacemaker Normal mediastinum and betty. Normal visualized pulmonary arteries. There is atherosclerotic calcification of the aortic arch with tortuosity. There are diffuse degenerative changes of the visualized thoracic spine. There is degenerative osteoarthritis of the bilateral shoulders. There is no demonstrated abnormality of the visualized soft tissue structures of the upper abdomen. RAD/Chest 1 View (Portable) IMPRESSION: Degenerative changes, as described above. No demonstrated acute cardiopulmonary process. No major interval change. Electronically Signed: Nikko Olivarez DO at 17:21 EDT ,
[2022-09-25 17:13] LABS: Anion Gap 6 (5-15); BUN 15 mg/dL (7-18); BUN/Creat Ratio 24.2 RATIO (10-20); Calcium,Total 8.7 mg/dL (8.5-10.1); Chloride 110 mmol/L (98-107); Creatinine, Serum 0.62 mg/dL (0.55-1.02); EST Glomerular Filtration Rate 99 mL/min (>60); Est Glom Filt Rate - Afr Amer 120 mL/min (>60); Estimated Creatinine Clearance 40.04 ml/min; Glucose 102 mg/dL (74-106); Potassium 4.2 mmol/L (3.5-5.1); Sodium Level 146 mmol/L (136-145); Troponin-I HS 14 pg/mL (3.0-54.0)
[2022-09-25] MEDS: MethylPREDNISolone 125 MG/2 ML Vial IV (18:44)
--- NOTE | 2022-09-25 19:35 | NURSING ---
Son, Jean, called and updated on pt treatment. Will be here to pick her up in 15 min.
== END 2022-09-25 20:48 | disposition skilled nursing facility (03) ==
PROVIDERS: Emergency Provider Emergency Medicine; PCP Family Medicine; Visit Provider Emergency Medicine
DX: J44.1 Chronic obstructive pulmonary disease with (acute) exacerbation (principal); I11.0 Hypertensive heart disease with heart failure; I50.32 Chronic diastolic (congestive) heart failure; Z99.81 Dependence on supplemental oxygen; Z79.01 Long term (current) use of anticoagulants; Z79.899 Other long term (current) drug therapy; Z86.711 Personal history of pulmonary embolism; Z86.718 Personal history of other venous thrombosis and embolism; Z87.891 Personal history of nicotine dependence
CPT/HCPCS: 71045; 80048; 83880; 84484; 85025; 87428; 93005; 94640; 96374; 99285; A4216

== ENCOUNTER 2022-10-05 11:30 | Outpatient (RCR) | payer MEDICARE, MEDICAID, SELFPAY ==
[2022-09-14 00:28] VITALS: BP 131/72; PULSE 60; RESP 16; TEMP 35.3; BMI 24.1
[2022-09-19 14:22] VITALS: BP 137/51; PULSE 60; RESP 18; TEMP 36.8; BMI 24.1
--- NOTE | 2022-09-19 15:43 | PCM.WC.PN ---
History of Present Illness Date of Service: 09/19/22 Chief Complaint: Left lateral lower leg hematoma History of Wound: 76 year old female who presented to the [facility]ound Center last week with a hematoma left lateral leg that she thought it occurred when she was hospitalized 07/09/22-07/13/22 for acute exacerbation of COPD. She is on Warfarin for history of Afib and PEs. She was seen in the ED on 07/26/22 because of increased redness, pain, and swelling and some overlying skin necrosis. Her INR was 5.5 in the ED. She was placed on Doxycycline. She has a history of CHF, COPD, Pacemaker, DVT, PE, ANKUSH, chronic anticoagulation with Coumadin and is on home oxygen. Surgery 08/19/22 - Surgical preparation left lateral leg with incision and drainage and evacuation infected hematoma abscess and excisional debridement overlying skin necrosis. She was [facility] wound [facility] on 08/20/22. Operative culture positive for MRSE. Today she denies fever. Her appetite is ok. Progress of Wound: Left lateral leg ulcer is beefy pink, smaller in size, caterina wound is stable. She is having issues with carrying around the wound VAC and her portable oxygen tank. Objective Data Objective Data Vital Signs: Vital Signs Temp Pulse Resp BP 98.3 F 60 18 137/51 H 09/19/22 14:22 09/19/22 14:22 09/19/22 14:22 09/19/22 14:22 Weight: 154 lb Body Mass Index (BMI) 24.1 Charges/Coding Procedures Integumentary [id number]: [id number] Global Visit Debridement Note Debridement Note Wound debrided: Lateral leg ulcer Laterality: Left Wound Grade/Stage: Stage IV Type of Debridement: Excisional debridement Anesthesia Used: 5% Lidocaine Gel Depth: Down to and including healthy tissue, in the subcutaneous layer and to muscle Percentage of wound debrided: 100 Instrument Used: 5mm curette Tissue Removed: Devitalized tissue and slough into the muscle. Severity: Fat Layer Exposed Amount of bleeding with debridement: Mild Bleeding Controlled with: Pressure and Compression and gauze Patient tolerated procedure: Patient tolerated procedure well Post-Debridement Measurements and Additional Note: Post-Debridement Measurements/Treatment VERONICA - Nurse 1 - General Ulcer Assessment Start: 09/19/22 14:22 Freq: Status: Active Protocol: OBED Activity Type Activity Date Activity User E-sign Co-sign Detail Recorded Client Recorded Date Recorded By Document 09/19/22 14:22 DL [id number] 09/19/22 14:28 09/19/22 14:22 WC - Today's Visit Information Type of service Follow-up Visit (Physician/SALESPERSON [place] [employer] ) Arrival Mode Wheelchair Transfer Assistance Manual Transfer Assist (Other) x2 Patient Identification Verified (Name & Yes ) Patient Requires Transmission-Based No Precautions Safety Precautions NA Height and Weight Body Mass Index (BMI) 24.1 BMI Classification Normal Vital Signs Temperature (97.8 F-99.1 F) 98.3 F Temperature Source Temporal Pulse Rate (60-100) 60 Pulse Location Monitor Respiratory Rate (12-18) 18 Respiratory rate source Observation Blood Pressure (90/60-120/80) 137/51 H Blood Pressure Mean (mm Hg) 79 Source Monitor History Since Last Visit- (Skip if this is Patient's initial visit) Have you changed medications since your No last visit? Any new allergies or adverse reactions No Had a fall/change in ADL's that may No increase risk of falls Signs or symptoms of abuse and/or No neglect since last visit Have you been in the hospital since your No last visit? Has dressing in place as prescribed Yes Has compression in place as prescribed No Has offloadiing in place as prescribed N/A Experienced any changes in pain level or Yes management Pain Scale: 0-10 Numeric Is Patient Pain Free? Yes - Nurse 1 - General Ulcer Measurement Start: 09/19/22 14:22 Freq: Status: Active Protocol: Activity Type Activity Date Activity User E-sign Co-sign Detail Recorded Client Recorded Date Recorded By Document 09/19/22 14:22 XIN [id number] 09/19/22 14:28 DL 09/19/22 14:22 Wound Center Nurse 1 # left lateral LE -Current Size (cm) - Length 5.8 -Current Size (cm) - Width 3 -Current Size (cm) - Depth 0.3 -Total Square Cm 17.4 -Photo Taken Yes -Tunneling Position (O'clock) 12 -Tunneling Distance (cm) 0.8 -Exudate Amt Medium -Exudate Type Serosanguineous -Wound Margin Distinct, Outline Attached -Granulation Amt Medium (34-66%) -Granulation Quality Red -Necrosis Amt Medium (34-66%) -Necrotic Tissue Type Adherent Slough -Structure Exposed N/A -Texture (Caterina-wound Skin Appearance) Scarring -Moisture (Caterina-wound Skin Appearance) No Abnormality -Color (Caterina-wound Skin Appearance) No Abnormality -Temperature (Caterina-wound Skin No Abnormality Appearance) (Pt Warm) -Tenderness on Palpation (Caterina-wound No Skin Appearance) -Ulcer Cleansing Soap and Water -Foul Odor after Cleansing No -Anesthetic Used 5% Lidocaine Gel Left Calf (cm) 34.1 Left Ankle (cm) 22 WC - Nurse 2 - General Ulcer CM Notes Start: 09/19/22 14:22 Freq: Status: Active Protocol: Activity Type Activity Date Activity User E-sign Co-sign Detail Recorded Client Recorded Date Recorded By Document 09/19/22 15:04 [id number] 09/19/22 15:08 MILAGROS 09/19/22 15:04 Wound Center Nurse 2 # left lateral LE -Time 15:04 -Correct Patient Yes -Correct Side, Site, Position Yes -Correct Procedure Yes -Procedure Performed Yes -Type of Procedure Debridement -Clinical Debridement Muscle / Fascia -Tissue Removed Muscle,Fascia -Post Debridement (cm) - Length 5.4 -Post Debridement (cm) - Width 3.4 -Post Debridement (cm) - Depth 0.5 -Total Square (Post) (cm) 18.36 -Area of Debridement (cm) - Length 5.4 -Area of Debridement (cm) - Width 3.4 -Total Square (Area) (cm) 18.36 -Tunneling No -Undermining/Tunneling No -Circular Undermining No -Wound/Ulcer Outcome Not Healed -Ulcer Cleansing Rinsed/ Irrigated with Saline -Foul Odor after Cleansing No -Bioengineered Tissue No -Bleeding Controlled with Pressure -Treatment Response Procedure Tolerated Well -Offloading No -Debridement - Muscle / Fascia, 1st Yes 20sq cm Pain Scale: 0-10 Numeric Is Patient Pain Free? Yes - Nurse 3 - General Ulcer D/C NN Start: 09/19/22 14:22 Freq: Status: Active Protocol: Activity Type Activity Date Activity User E-sign Co-sign Detail Recorded Client Recorded Date Recorded By Document 09/19/22 15:22 [facility] [id number] 09/19/22 15:23 [facility] 09/19/22 15:22 Wound Care Center Nurse 3 # left lateral LE -Ulcer Cleansing Rinsed/ Irrigated with Saline -Foul Odor after Cleansing No -Primary Dressing Applied Silvercel -Other Dressing ABD -Primary Dressing Covered/Secured with Dry Gauze & Roll Gauze, Secured with Tape -Silvercel 1 Left -Tubular Bandage Single Layer -Size of Tubigrip Used Size D -Size D ($) 2 -Other SENT AN EXTRA Treatment Response Procedure Tolerated Well Pain Scale: 0-10 Numeric Is Patient Pain Free? Yes WC - Visit Discharge Discharge Condition Stable Ambulatory Status Wheelchair Transportation Private Auto Accompanied by LANEY Facility Type [facility] Facility Assessment/Plan Assessment/Plan (1) Ulcer of left lower extremity with muscle involvement without evidence of necrosis: CODE(S): L97.925 - Non-pressure chronic ulcer of unspecified part of left lower leg with muscle involvement without evidence of necrosis (2) Hematoma of left lower leg: CODE(S): S80.12XA - Contusion of left lower leg, initial encounter (3) Skin necrosis: CODE(S): I96 - Gangrene, not elsewhere classified (4) Abscess of left leg: CODE(S): L02.416 - Cutaneous abscess of left lower limb (5) Chronic anticoagulation: CODE(S): Z79.01 - 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 Will take a VAC holiday due to the patient having difficulty carrying around the wound VAC and her portable oxygen tank. Will re evaluate next week to see if she is showing improvement without the wound VAC Wound care - Will take a VAC holiday this week. Wound care Silvercel/Silver alginate covered with ABD daily after washing wound and caterina wound with soap and water . Compression - Tubigrip to the left leg for compression. Operative culture positive for MRSE - She was initially started on Doxycycline but it is resistant to the bacteria. Switched her to Linezolid. She did stop her Citalopram and Buspirone while she is taking the Linezolid due to medication interaction. Pathology of the soft tissue of left leg showed Skin with underlying tissue with focal ulceration and associated acute inflammation. Underlying tissue with hematoma, associated fat necrosis, chronic inflammation, foreign body giant cell reaction and histiocytic reaction. Keep leg elevated. Follow up one week.
[2022-09-26 11:11] VITALS: BP 132/65; PULSE 60; RESP 18; TEMP 36.6; BMI 24.1
--- NOTE | 2022-09-26 13:16 | PN.PCM_ITS ---
History of Present Illness Date of Service: 09/26/22 Chief Complaint: Left lateral lower leg hematoma History of Wound: 76 year old female who presented to the Wound Center last week with a hematoma left lateral leg that she thought it occurred when she was hospitalized 07/09/22-07/13/22 for acute exacerbation of COPD. She is on Warfarin for history of Afib and PEs. She was seen in the ED on 07/26/22 because of increased redness, pain, and swelling and some overlying skin necrosis. Her INR was 5.5 in the ED. She was placed on Doxycycline. She has a history of CHF, COPD, Pacemaker, DVT, PE, ANKUSH, chronic anticoagulation with Coumadin and is on home oxygen. Surgery 08/19/22 - Surgical preparation left lateral leg with incision and drainage and evacuation infected hematoma abscess and excisional debridement overlying skin necrosis. She was [facility] a wound [facility]AC on 08/20/22. Operative culture positive for MRSE. Today she denies fever. Her appetite is ok. Progress of Wound: Left lateral leg ulcer is beefy pink and smaller in size. Even without the wound VAC there was a decrease in the ulcer. Objective Data Objective Data Vital Signs: Vital Signs Temp Pulse Resp BP O2 Del Method 98 F 60 18 132/65 H Nasal Cannula 09/26/22 11:11 09/26/22 11:11 09/26/22 11:11 09/26/22 11:11 09/26/22 11:11 Oxygen Delivery Method Nasal Cannula Weight: 154 lb Body Mass Index (BMI) 24.1 Charges/Coding Procedures Integumentary 111xxx-113xx: 43698 Global Visit Debridement Note Debridement Note Wound debrided: Lateral leg ulcer Laterality: Left Wound Grade/Stage: Stage IV Type of Debridement: Excisional debridement Anesthesia Used: 5% Lidocaine Gel Depth: Down to and including healthy tissue, in the subcutaneous layer and to muscle Percentage of wound debrided: 100 Instrument Used: 5mm curette Tissue Removed: Devitalized tissue and slough into the muscle. Severity: Fat Layer Exposed Amount of bleeding with debridement: Mild Bleeding Controlled with: Pressure and Compression and gauze Patient tolerated procedure: Patient tolerated procedure well Post-Debridement Measurements and Additional Note: Post-Debridement Measurements/Treatment WC - Nurse 1 - General Ulcer Assessment Start: 09/19/22 14:22 Freq: Status: Active Protocol: WC.LOWEXT Activity Type Activity Date Activity User E-sign Co-sign Detail Recorded Client Recorded Date Recorded By Document 09/19/22 14:22 DL [id number] 09/19/22 14:28 DL Document 09/26/22 11:11 [facility] [id number] 09/26/22 11:23 BM 09/19/22 09/26/22 14:22 11:11 - Today's Visit Information Type of service Follow-up Visit Follow-up Visit (Physician/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 UNDERWRITER (Physician/SELLING UNDERWRITER ) ) Arrival Mode Wheelchair Wheelchair Transfer Assistance Manual Other Transfer Assist (Other) x2 1 assist Patient Identification Verified (Name & Yes Yes ) Patient Requires Transmission-Based No No Precautions Safety Precautions NA Height and Weight Body Mass Index (BMI) 24.1 24.1 BMI Classification Normal Normal Vital Signs Temperature (97.8 F-99.1 F) 98.3 F 98 F Temperature Source Temporal Temporal Pulse Rate (60-100) 60 60 Pulse Location Monitor Monitor Respiratory Rate (12-18) 18 18 Respiratory rate source Observation Observation Oxygen Delivery Method Nasal Cannula Blood Pressure (90/60-120/80) 137/51 H 132/65 H Blood Pressure Mean (mm Hg) 79 87 Source Monitor Monitor Position Sitting Blood Pressure Location Right Arm History Since Last Visit- (Skip if this is Patient's initial visit) Have you changed medications since your No No last visit? Any new allergies or adverse reactions No No Had a fall/change in ADL's that may No No increase risk of falls Signs or symptoms of abuse and/or No No neglect since last visit Have you been in the hospital since your No Yes last visit? Has dressing in place as prescribed Yes Yes Has compression in place as prescribed No Yes Has offloadiing in place as prescribed N/A N/A Experienced any changes in pain level or Yes No management Left Footwear Regular Shoe Right Footwear Regular Shoe Pain Scale: 0-10 Numeric Is Patient Pain Free? Yes Yes - Nurse 1 - General Ulcer Measurement Start: 09/19/22 14:22 Freq: Status: Active Protocol: Activity Type Activity Date Activity User E-sign Co-sign Detail Recorded Client Recorded Date Recorded By Document 09/19/22 14:22 DL [id number] 09/19/22 14:28 DL Document 09/26/22 11:11 [facility] [id number] 09/26/22 11:23 [facility] 09/19/22 09/26/22 14:22 11:11 Wound Center Nurse 1 # left lateral LE -Combined with other wound No -Current Size (cm) - Length 5.8 5 -Current Size (cm) - Width 3 2.4 -Current Size (cm) - Depth 0.3 0.4 -Total Square Cm 17.4 12.0 -Date of Last Picture (Recall this 09/26/22 field) -Photo Taken Yes Yes -Epithelialization None Present -Tunneling No -Tunneling Position (O'clock) 12 -Tunneling Distance (cm) 0.8 -Undermining/Tunneling No -Circular Undermining No -Exudate Amt Medium Medium -Exudate Type Serosanguineous Serosanguineous -Wound Margin Distinct, Distinct, Outline Outline Attached Attached -Granulation Amt Medium (34-66%) Medium (34-66%) -Granulation Quality Red Red -Slough/Fibrin Yes -Necrosis Amt Medium (34-66%) Medium (34-66%) -Necrotic Tissue Type Adherent Slough Adherent Slough -Structure Exposed N/A -Texture (Caterina-wound Skin Appearance) Scarring Assessed, Scarring -Moisture (Caterina-wound Skin Appearance) No Abnormality Assessed,Dry/ Scaly -Color (Caterina-wound Skin Appearance) No Abnormality Assessed -Temperature (Caterina-wound Skin No Abnormality No Abnormality Appearance) (Pt Warm) (Pt Warm) -Tenderness on Palpation (Caterina-wound No Yes Skin Appearance) -Ulcer Cleansing Soap and Water Rinsed/ Irrigated with Saline -Foul Odor after Cleansing No No -Anesthetic Used 5% Lidocaine 5% Lidocaine Gel Gel Lower Limb Edema Present Yes Left Calf (cm) 34.1 36.2 Left Ankle (cm) 22 22.1 WC - Nurse 2 - General Ulcer CM Notes Start: 09/19/22 14:22 Freq: Status: Active Protocol: Activity Type Activity Date Activity User E-sign Co-sign Detail Recorded Client Recorded Date Recorded By Document 09/19/22 15:04 MILAGROS [id number] 09/19/22 15:08 Document 09/26/22 11:33 [id number] 09/26/22 11:38 JF 09/19/22 09/26/22 15:04 11:33 Wound Center Nurse 2 # left lateral LE -Time 15:04 11:33 -Correct Patient Yes Yes -Correct Side, Site, Position Yes Yes -Correct Procedure Yes Yes -Procedure Performed Yes Yes -Type of Procedure Debridement Debridement -Clinical Debridement Muscle / Fascia Muscle / Fascia -Tissue Removed Muscle,Fascia Muscle,Fascia -Post Debridement (cm) - Length 5.4 5.1 -Post Debridement (cm) - Width 3.4 2.5 -Post Debridement (cm) - Depth 0.5 0.5 -Total Square (Post) (cm) 18.36 12.75 -Area of Debridement (cm) - Length 5.4 5.1 -Area of Debridement (cm) - Width 3.4 2.5 -Total Square (Area) (cm) 18.36 12.75 -Tunneling No No -Undermining/Tunneling No No -Circular Undermining No No -Wound/Ulcer Outcome Not Healed Not Healed -Ulcer Cleansing Rinsed/ Rinsed/ Irrigated with Irrigated with Saline Saline -Foul Odor after Cleansing No No -Bioengineered Tissue No No -Bleeding Controlled with Pressure Pressure -Treatment Response Procedure Procedure Tolerated Well Tolerated Well -Offloading No No -Debridement - Muscle / Fascia, 1st Yes Yes 20sq cm Pain Scale: 0-10 Numeric Is Patient Pain Free? Yes Yes - Nurse 3 - General Ulcer D/C NN Start: 09/19/22 14:22 Freq: Status: Active Protocol: Activity Type Activity Date Activity User E-sign Co-sign Detail Recorded Client Recorded Date Recorded By Document 09/19/22 15:22 [facility] [id number] 09/19/22 15:23 [facility] 09/19/22 15:22 Wound Care Center Nurse 3 # left lateral LE -Ulcer Cleansing Rinsed/ Irrigated with Saline -Foul Odor after Cleansing No -Primary Dressing Applied Silvercel -Other Dressing ABD -Primary Dressing Covered/Secured with Dry Gauze & Roll Gauze, Secured with Tape -Silvercel 1 Left -Tubular Bandage Single Layer -Size of Tubigrip Used Size D -Size D ($) 2 -Other SENT AN EXTRA Treatment Response Procedure Tolerated Well Pain Scale: 0-10 Numeric Is Patient Pain Free? 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 Care Facility Assessment/Plan Assessment/Plan (1) Ulcer of left lower extremity with muscle involvement without evidence of necrosis: CODE(S): L97.925 - Non-pressure chronic ulcer of unspecified part of left lower leg with muscle involvement without evidence of necrosis (2) Hematoma of left lower leg: CODE(S): S80.12XA - Contusion of left lower leg, initial encounter (3) Skin necrosis: CODE(S): I96 - Gangrene, not elsewhere classified (4) Abscess of left leg: CODE(S): L02.416 - Cutaneous abscess of left lower limb (5) Chronic anticoagulation: 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 Will discontinue the VAC patient having difficulty carrying around the wound VAC and her portable oxygen tank. Also, there was improvement with doing daily dressing changes. Wound care - Dakins 0.25% moistened gauze covered with ABD daily after washing wound and caterina wound with soap and water . Compression - Tubigrip to the left leg for compression. Operative culture positive for MRSE - She was initially started on Doxycycline but it is resistant to the bacteria. Switched her to Linezolid. She did stop her Citalopram and Buspirone while she is taking the Linezolid due to medication interaction. Pathology of the soft tissue of left leg showed Skin with underlying tissue with focal ulceration and associated acute inflammation. Underlying tissue with hematoma, associated fat necrosis, chronic inflammation, foreign body giant cell reaction and histiocytic reaction. Keep leg elevated. Follow up one week.
[2022-10-05 11:39] VITALS: BP 142/68; PULSE 60; RESP 18; TEMP 36.1; BMI 24.1
--- NOTE | 2022-10-05 14:28 | PCM.WC.PN ---
History of Present Illness Date of Service: 10/05/22 Chief Complaint: Left lateral lower leg hematoma History of Wound: 76 year old female who presented to the Wound Center last week with a hematoma left lateral leg that she thought it occurred when she was hospitalized 07/09/22-07/13/22 for acute exacerbation of COPD. She is on Warfarin for history of Afib and PEs. She was seen in the ED on 07/26/22 because of increased redness, pain, and swelling and some overlying skin necrosis. Her INR was 5.5 in the ED. She was placed on Doxycycline. She has a history of CHF, COPD, Pacemaker, DVT, PE, ANKUSH, chronic anticoagulation with Coumadin and is on home oxygen. Surgery 08/19/22 - Surgical preparation left lateral leg with incision and drainage and evacuation infected hematoma abscess and excisional debridement overlying skin necrosis. She was discharged back to [facility] with a wound VAC on 08/20/22. Operative culture positive for MRSE. Today she denies fever. Her appetite is ok. Progress of Wound: Left lateral leg ulcer is beefy pink and smaller in size. She is tolerating Dakin's dressing changes well. Objective Data Objective Data Vital Signs: Vital Signs Temp Pulse Resp BP O2 Del Method 97 F L 60 18 142/68 H Nasal Cannula 10/05/22 11:39 10/05/22 11:39 10/05/22 11:39 10/05/22 11:39 09/26/22 11:11 Oxygen Delivery Method Nasal Cannula Weight: 154 lb Body Mass Index (BMI) 24.1 Charges/Coding Procedures Integumentary 111xxx-113xx: 82456 Global Visit Debridement Note Debridement Note Wound debrided: Lateral leg ulcer Laterality: Left Wound Grade/Stage: Stage IV Type of Debridement: Excisional debridement Anesthesia Used: 5% Lidocaine Gel Depth: Down to and including healthy tissue, in the subcutaneous layer and to muscle Percentage of wound debrided: 100 Instrument Used: 5mm curette Tissue Removed: Devitalized tissue and slough into the muscle. Severity: Fat Layer Exposed Amount of bleeding with debridement: Mild Bleeding Controlled with: Pressure and Compression and gauze Patient tolerated procedure: Patient tolerated procedure well Post-Debridement Measurements and Additional Note: Post-Debridement Measurements/Treatment WC - Nurse 1 - General Ulcer Assessment Start: 09/19/22 14:22 Freq: Status: Active Protocol: VERONICA.LOWEXT Activity Type Activity Date Activity User E-sign Co-sign Detail Recorded Client Recorded Date Recorded By Document 09/19/22 14:22 DL [id number] 09/19/22 14:28 DL Document 09/26/22 11:11 [facility] [id number] 09/26/22 11:23 BMF Document 10/05/22 11:39 DL [id number] 10/05/22 11:44 DL 09/19/22 09/26/22 10/05/22 14:22 11:11 11:39 - Today's Visit Information Type of service Follow-up Visit Follow-up Visit Follow-up Visit (Physician/JOINERY SETTER OUT (Physician/JOINERY SETTER OUT (Physician/JOINERY SETTER OUT ) ) ) Arrival Mode Wheelchair Wheelchair Ambulatory, Walker Transfer Assistance Manual Other None Transfer Assist (Other) x2 1 assist Patient Identification Verified (Name & Yes Yes Yes ) Patient Requires Transmission-Based No No No Precautions Safety Precautions NA Height and Weight Body Mass Index (BMI) 24.1 24.1 24.1 BMI Classification Normal Normal Normal Vital Signs Temperature (97.8 F-99.1 F) 98.3 F 98 F 97 F L Temperature Source Temporal Temporal Temporal Pulse Rate (60-100) 60 60 60 Pulse Location Monitor Monitor Monitor Respiratory Rate (12-18) 18 18 18 Respiratory rate source Observation Observation Observation Oxygen Delivery Method Nasal Cannula Blood Pressure (90/60-120/80) 137/51 H 132/65 H 142/68 H Blood Pressure Mean (mm Hg) 79 87 92 Source Monitor Monitor Monitor Position Sitting Blood Pressure Location Right Arm History Since Last Visit- (Skip if this is Patient's initial visit) Have you changed medications since your No No No last visit? Any new allergies or adverse reactions No No No Had a fall/change in ADL's that may No No No increase risk of falls Signs or symptoms of abuse and/or No No No neglect since last visit Have you been in the hospital since your No Yes No last visit? Has dressing in place as prescribed Yes Yes Yes Has compression in place as prescribed No Yes Yes Has offloadiing in place as prescribed N/A N/A N/A Experienced any changes in pain level or Yes No No management Left Footwear Regular Shoe Regular Shoe Right Footwear Regular Shoe Regular Shoe Pain Scale: 0-10 Numeric Is Patient Pain Free? Yes Yes Yes WC - Nurse 1 - General Ulcer Measurement Start: 09/19/22 14:22 Freq: Status: Active Protocol: Activity Type Activity Date Activity User E-sign Co-sign Detail Recorded Client Recorded Date Recorded By Document 09/19/22 14:22 DL [id number] 09/19/22 14:28 DL Document 09/26/22 11:11 [facility] [id number] 09/26/22 11:23 BM Document 10/05/22 11:39 DL [id number] 10/05/22 11:44 DL 09/19/22 09/26/22 10/05/22 14:22 11:11 11:39 Wound Center Nurse 1 # left lateral LE -Combined with other wound No -Current Size (cm) - Length 5.8 5 4.5 -Current Size (cm) - Width 3 2.4 2.4 -Current Size (cm) - Depth 0.3 0.4 0.4 -Total Square Cm 17.4 12.0 10.80 -Date of Last Picture (Recall this 09/26/22 field) -Photo Taken Yes Yes No -Epithelialization None Present -Tunneling No -Tunneling Position (O'clock) 12 -Tunneling Distance (cm) 0.8 -Undermining/Tunneling No -Undermining/Tunneling Starts (O'clock 2 ) -Undermining/Tunneling Ends (O'clock) 3 -Maximum Distance (cm) 0.4 -Circular Undermining No -Exudate Amt Medium Medium Medium -Exudate Type Serosanguineous Serosanguineous Serous -Wound Margin Distinct, Distinct, Distinct, Outline Outline Outline Attached Attached Attached -Granulation Amt Medium (34-66%) Medium (34-66%) Large (67-100%) -Granulation Quality Red Red Red -Slough/Fibrin Yes -Necrosis Amt Medium (34-66%) Medium (34-66%) Small (1-33%) -Necrotic Tissue Type Adherent Slough Adherent Slough Adherent Slough -Structure Exposed N/A N/A -Texture (Caterina-wound Skin Appearance) Scarring Assessed, Scarring Scarring -Moisture (Caterina-wound Skin Appearance) No Abnormality Assessed,Dry/ No Abnormality Scaly -Color (Caterina-wound Skin Appearance) No Abnormality Assessed No Abnormality -Temperature (Caterina-wound Skin No Abnormality No Abnormality No Abnormality Appearance) (Pt Warm) (Pt Warm) (Pt Warm) -Tenderness on Palpation (Caterina-wound No Yes No Skin Appearance) -Ulcer Cleansing Soap and Water Rinsed/ Soap and Water Irrigated with Saline -Foul Odor after Cleansing No No No -Anesthetic Used 5% Lidocaine 5% Lidocaine 5% Lidocaine Gel Gel Gel Lower Limb Edema Present Yes Left Calf (cm) 34.1 36.2 35.2 Left Ankle (cm) 22 22.1 22.7 WC - Nurse 2 - General Ulcer CM Notes Start: 09/19/22 14:22 Freq: Status: Active Protocol: Activity Type Activity Date Activity User E-sign Co-sign Detail Recorded Client Recorded Date Recorded By Document 09/19/22 15:04 [id number] 09/19/22 15:08 Document 09/26/22 11:33 [id number] 09/26/22 11:38 Document 10/05/22 12:15 [id number] 10/05/22 12:22 09/19/22 09/26/22 10/05/22 15:04 11:33 12:15 Wound Center Nurse 2 # left lateral LE -Time 15:04 11:33 12:17 -Correct Patient Yes Yes Yes -Correct Side, Site, Position Yes Yes Yes -Correct Procedure Yes Yes Yes -Procedure Performed Yes Yes Yes -Type of Procedure Debridement Debridement Debridement -Clinical Debridement Muscle / Fascia Muscle / Fascia Subcutaneous -Tissue Removed Muscle,Fascia Muscle,Fascia Subcutaneous -Post Debridement (cm) - Length 5.4 5.1 4.5 -Post Debridement (cm) - Width 3.4 2.5 2.5 -Post Debridement (cm) - Depth 0.5 0.5 0.3 -Total Square (Post) (cm) 18.36 12.75 11.25 -Area of Debridement (cm) - Length 5.4 5.1 4.5 -Area of Debridement (cm) - Width 3.4 2.5 2.5 -Total Square (Area) (cm) 18.36 12.75 11.25 -Tunneling No No No -Undermining/Tunneling No No No -Circular Undermining No No No -Wound/Ulcer Outcome Not Healed Not Healed Not Healed -Ulcer Cleansing Rinsed/ Rinsed/ Rinsed/ Irrigated with Irrigated with Irrigated with Saline Saline Saline -Foul Odor after Cleansing No No No -Bioengineered Tissue No No No -Bleeding Controlled with Pressure Pressure Pressure -Treatment Response Procedure Procedure Procedure Tolerated Well Tolerated Well Tolerated Well -Offloading No No No -Debridement - Subq, 1st 20sq cm Yes -Debridement - Muscle / Fascia, 1st Yes Yes 20sq cm Pain Scale: 0-10 Numeric Is Patient Pain Free? Yes Yes Yes - Nurse 3 - General Ulcer D/C NN Start: 09/19/22 14:22 Freq: Status: Active Protocol: Activity Type Activity Date Activity User E-sign Co-sign Detail Recorded Client Recorded Date Recorded By Document 09/19/22 15:22 [facility] [id number] 09/19/22 15:23 [facility] Document 10/05/22 12:39 DL [id number] 10/05/22 12:40 DL 09/19/22 10/05/22 15:22 12:39 Wound Care Center Nurse 3 # left lateral LE -Ulcer Cleansing Rinsed/ Rinsed/ Irrigated with Irrigated with Saline Saline -Foul Odor after Cleansing No No -Primary Dressing Applied Silvercel -Other Dressing ABD dakins -Primary Dressing Covered/Secured with Dry Gauze & Dry Gauze & Roll Gauze, Roll Gauze, Secured with Secured with Tape Tape -Silvercel 1 Left -Tubular Bandage Single Layer Single Layer -Size of Tubigrip Used Size D Size D -Size D ($) 2 1 -Other SENT AN EXTRA Treatment Response Procedure Procedure Tolerated Well Tolerated Well Pain Scale: 0-10 Numeric Is Patient Pain Free? Yes Yes - Visit Discharge Discharge Condition Stable Stable Ambulatory Status Wheelchair Ambulatory Transportation Private Auto Private Auto Accompanied by LANEY Facility Type Mixed Crop And Livestock Farmer Care Mixed Crop And Livestock Farmer Care Facility Facility Orders Sent Yes Assessment/Plan Assessment/Plan (1) Ulcer of left lower extremity with muscle involvement without evidence of necrosis: CODE(S): L97.925 - Non-pressure chronic ulcer of unspecified part of left lower leg with muscle involvement without evidence of necrosis (2) Hematoma of left lower leg: CODE(S): S80.12XA - Contusion of left lower leg, initial encounter (3) Skin necrosis: CODE(S): I96 - Gangrene, not elsewhere classified (4) Abscess of left leg: CODE(S): L02.416 - Cutaneous abscess of left lower limb (5) Chronic anticoagulation: 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 Wound care - Dakins 0.25% moistened gauze covered with ABD daily after washing wound and caterina wound with soap and water . Compression - Tubigrip to the left leg for compression. She would benefit from advanced wound product to help improve her wound healing. Will apply for approval for Epifix. Operative culture positive for MRSE - She was initially started on Doxycycline but it is resistant to the bacteria. Switched her to Linezolid. She did stop her Citalopram and Buspirone while she is taking the Linezolid due to medication interaction. Pathology of the soft tissue of left leg showed Skin with underlying tissue with focal ulceration and associated acute inflammation. Underlying tissue with hematoma, associated fat necrosis, chronic inflammation, foreign body giant cell reaction and histiocytic reaction. Keep leg elevated. Follow up two weeks, since I'm out of town next week.
== END 2022-10-14 23:59 | disposition home or self-care (01) ==
LOC: WC 11:30
PROVIDERS: PCP Family Medicine; Visit Provider Nurse Practitioner Family
DX: L97.822 Non-pressure chronic ulcer of other part of left lower leg with fat layer exposed (principal); I96 Gangrene, not elsewhere classified; J44.9 Chronic obstructive pulmonary disease, unspecified; I50.9 Heart failure, unspecified; I48.91 Unspecified atrial fibrillation; Z79.01 Long term (current) use of anticoagulants; Z86.711 Personal history of pulmonary embolism; M79.89 Other specified soft tissue disorders; Z86.718 Personal history of other venous thrombosis and embolism; G47.33 Obstructive sleep apnea (adult) (pediatric); L02.416 Cutaneous abscess of left lower limb; B95.7 Other staphylococcus as the cause of diseases classified elsewhere; Z87.891 Personal history of nicotine dependence
CPT/HCPCS: 11042; 11043

== ENCOUNTER 2022-11-07 14:30 | Outpatient (RCR) | payer MEDICARE, MEDICAID, SELFPAY ==
[2022-10-15 01:51] VITALS: BP 142/68; PULSE 60; RESP 18; TEMP 36.1; BMI 24.1
[2022-10-24 14:02] VITALS: BP 139/70; PULSE 60; RESP 18; TEMP 36.1; BMI 24.1
--- NOTE | 2022-10-24 15:12 | PN.PCM_ITS ---
History of Present Illness Date of Service: 10/24/22 Chief Complaint: Left lateral lower leg hematoma History of Wound: 76 year old female who presented to [facility] last week with a hematoma left lateral leg that she thought it occurred when she was hospitalized 07/09/22-07/13/22 for acute exacerbation of COPD. She is on Warfarin for history of Afib and PEs. She was seen in the ED on 07/26/22 because of increased redness, pain, and swelling and some overlying skin necrosis. Her INR was 5.5 in the ED. She was placed on Doxycycline. She has a history of CHF, COPD, Pacemaker, DVT, PE, ANKUSH, chronic anticoagulation with Coumadin and is on home oxygen. Surgery 08/19/22 - Surgical preparation left lateral leg with incision and drainage and evacuation infected hematoma abscess and excisional debridement overlying skin necrosis. [facility] wound [facility] on 08/20/22. Operative culture positive for MRSE. Today she denies fever. Her appetite is ok. Progress of Wound: Left lateral leg ulcer is beefy pink and smaller in size. She has been approved for Epifix. Objective Data Objective Data Vital Signs: Vital Signs Temp Pulse Resp BP 97 F L 60 18 139/70 H 10/24/22 14:02 10/24/22 14:02 10/24/22 14:02 10/24/22 14:02 Weight: 154 lb Body Mass Index (BMI) 24.1 Charges/Coding Procedures Integumentary 150xxx-152xx: 66347 Skin sub graft trnk/arm/leg (58 modifier) Debridement Note Debridement Note Wound debrided: Lateral leg ulcer Laterality: Left Wound Grade/Stage: Stage IV Type of Debridement: Excisional debridement Anesthesia Used: 5% Lidocaine Gel Depth: Down to and including healthy tissue, in the subcutaneous layer and to muscle Percentage of wound debrided: 100 Instrument Used: 5mm curette Tissue Removed: Devitalized tissue and slough into the muscle. Severity: Fat Layer Exposed Amount of bleeding with debridement: Mild Bleeding Controlled with: Pressure and Compression and gauze Patient tolerated procedure: Patient tolerated procedure well Post-Debridement Measurements and Additional Note: Post-Debridement Measurements/Treatment VERONICA - Nurse 1 - General Ulcer Assessment Start: 10/24/22 14:02 Freq: Status: Active Protocol: OBED Activity Type Activity Date Activity User E-sign Co-sign Detail Recorded Client Recorded Date Recorded By Document 10/24/22 14:02 RB [id number] 10/24/22 14:06 RB Edit Result 10/24/22 14:02 RB (1) [id number] 10/24/22 14:43 RB (1) Arrival Mode Ambulatory,Walker => Ambulatory, => Wheelchair 10/24/22 14:02 WC - Today's Visit Information Type of service 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 ) Arrival Mode Ambulatory, Wheelchair Transfer Assistance None Patient Identification Verified (Name & Yes ) Patient Requires Transmission-Based No Precautions Height and Weight Body Mass Index (BMI) 24.1 BMI Classification Normal Vital Signs Temperature (97.8 F-99.1 F) 97 F L Temperature Source Temporal Pulse Rate (60-100) 60 Pulse Location Monitor Respiratory Rate (12-18) 18 Respiratory rate source Observation Blood Pressure (90/60-120/80) 139/70 H Blood Pressure Mean (mm Hg) 93 Source Monitor Position Semi-Fowlers Blood Pressure Location Left Arm History Since Last Visit- (Skip if this is Patient's initial visit) Have you changed medications since your No last visit? Any new allergies or adverse reactions No Had a fall/change in ADL's that may No increase risk of falls Signs or symptoms of abuse and/or No neglect since last visit Have you been in the hospital since your No last visit? Has dressing in place as prescribed Yes Has compression in place as prescribed Yes Has offloadiing in place as prescribed No Experienced any changes in pain level or No management Pain Scale: 0-10 Numeric Is Patient Pain Free? Yes - Nurse 1 - General Ulcer Measurement Start: 10/24/22 14:02 Freq: Status: Active Protocol: Activity Type Activity Date Activity User E-sign Co-sign Detail Recorded Client Recorded Date Recorded By Document 10/24/22 14:02 RB [id number] 10/24/22 14:06 RB 10/24/22 14:02 Wound Center Nurse 1 # left lateral LE -Combined with other wound No -Current Size (cm) - Length 3.3 -Current Size (cm) - Width 1.4 -Current Size (cm) - Depth 0.1 -Total Square Cm 4.62 -Photo Taken Yes -Tunneling No -Undermining/Tunneling No -Circular Undermining No -Granulation Amt Medium (34-66%) -Granulation Quality [place] -Slough/Fibrin Yes -Necrosis Amt Medium (34-66%) -Necrotic Tissue Type Adherent Slough -Structure Exposed N/A -Texture (Caterina-wound Skin Appearance) Assessed, Scarring -Moisture (Caterina-wound Skin Appearance) Assessed -Color (Caterina-wound Skin Appearance) Assessed -Temperature (Caterina-wound Skin No Abnormality Appearance) (Pt Warm) -Tenderness on Palpation (Caterina-wound No Skin Appearance) -Ulcer Cleansing Wound Cleanser -Foul Odor after Cleansing No -Anesthetic Used 5% Lidocaine Gel Lower Limb Edema Present Yes Left Calf (cm) 36.7 Left Ankle (cm) 22 WC - Nurse 2 - General Ulcer CM Notes Start: 10/24/22 14:02 Freq: Status: Active Protocol: Activity Type Activity Date Activity User E-sign Co-sign Detail Recorded Client Recorded Date Recorded By Document 10/24/22 14:14 MILAGROS [id number] 10/24/22 14:26 MILAGROS 10/24/22 14:14 Wound Center Nurse 2 # left lateral LE -Time 14:14 -Correct Patient Yes -Correct Side, Site, Position Yes -Correct Procedure Yes -Procedure Performed Yes -Type of Procedure Debridement -Clinical Debridement Subcutaneous -Tissue Removed Subcutaneous -Post Debridement (cm) - Length 3.3 -Post Debridement (cm) - Width 1.5 -Post Debridement (cm) - Depth 0.2 -Total Square (Post) (cm) 4.95 -Area of Debridement (cm) - Length 3.3 -Area of Debridement (cm) - Width 1.5 -Total Square (Area) (cm) 4.95 -Tunneling No -Undermining/Tunneling No -Circular Undermining No -Wound/Ulcer Outcome Not Healed -Ulcer Cleansing Rinsed/ Irrigated with Saline -Foul Odor after Cleansing No -Bioengineered Tissue Yes -Type of Bioengineered Tissue Epifix -Expiration Date 06/16/27 -Product Lot Number [id number] -Percent Used 100 -Lot number of Saline Used [id number] -Bleeding Controlled with Pressure -Treatment Response Procedure Tolerated Well -Offloading No -Debridement - Subq, 1st 20sq cm No -Apply Skin Sub - 1st 25 sq cm - Legs 1 -Epifix (per sq cm) 4 Pain Scale: 0-10 Numeric Is Patient Pain Free? Yes - Nurse 3 - General Ulcer D/C NN Start: 10/24/22 14:02 Freq: Status: Active Protocol: Activity Type Activity Date Activity User E-sign Co-sign Detail Recorded Client Recorded Date Recorded By Document 10/24/22 14:42 RB [id number] 10/24/22 14:43 RB 10/24/22 14:42 Wound Care Center Nurse 3 # left lateral LE -Other Dressing abd -Primary Dressing Covered/Secured with Dry Gauze,Dry Gauze & Roll Gauze,Secured with Tape Left -Tubular Bandage Single Layer -Size of Tubigrip Used Size E -Size E ($) 1 Pain Scale: 0-10 Numeric Is Patient Pain Free? Yes WC - Visit Discharge Discharge Condition Stable Ambulatory Status Wheelchair Transportation Private Auto Medication Reconcilliation completed & No provided to patient/care provider Clinical Summary of Care Provided Yes Assessment/Plan Assessment/Plan (1) Ulcer of left lower extremity with muscle involvement without evidence of necrosis: CODE(S): L97.925 - Non-pressure chronic ulcer of unspecified part of left lower leg with muscle involvement without evidence of necrosis (2) Hematoma of left lower leg: CODE(S): S80.12XA - Contusion of left lower leg, initial encounter (3) Skin necrosis: CODE(S): I96 - Gangrene, not elsewhere classified (4) Abscess of left leg: CODE(S): L02.416 - Cutaneous abscess of left lower limb (5) Chronic anticoagulation: 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 Wound care - Epifix #1 applied. 100% of the 2x2 Epifix was applied. It was secured with wound veil and steri strips. It was moistened with saline and covered with ABD pad. May change the outer dressing above the wound veil as needed. Instructed her not to get the ulcer wet. Compression - Tubigrip to the left leg for compression. Operative culture positive for MRSE - She was initially started on Doxycycline but it is resistant to the bacteria. Completed Linezolid. Pathology of the soft tissue of left leg showed Skin with underlying tissue with focal ulceration and associated acute inflammation. Underlying tissue with hematoma, associated fat necrosis, chronic inflammation, foreign body giant cell reaction and histiocytic reaction. Keep leg elevated. Follow up one week.
[2022-10-31 12:03] VITALS: BP 139/64; PULSE 60; RESP 22; TEMP 36; BMI 24.1
--- NOTE | 2022-10-31 12:49 | PN.PCM_ITS ---
History of Present Illness Date of Service: 10/31/22 Chief Complaint: Left lateral lower leg hematoma History of Wound: 76 year old female who presented to the Wound Center last week with a hematoma left lateral leg that she thought it occurred when she was hospitalized 07/09/22-07/13/22 for acute exacerbation of COPD. She is on Warfarin for history of Afib and PEs. She was seen in the ED on 07/26/22 because of increased redness, pain, and swelling and some overlying skin necrosis. Her INR was 5.5 in the ED. She was placed on Doxycycline. She has a history of CHF, COPD, Pacemaker, DVT, PE, ANKUSH, chronic anticoagulation with Coumadin and is on home oxygen. Surgery 08/19/22 - Surgical preparation left lateral leg with incision and drainage and evacuation infected hematoma abscess and excisional debridement overlying skin necrosis. She was discharged back [facility] with a wound VAC on 08/20/22. Operative culture positive for MRSE. Today she denies fever. Her appetite is ok. Progress of Wound: Left lateral leg ulcer is beefy pink and smaller in size. Caterina wound is clear. Objective Data Objective Data Vital Signs: Vital Signs Temp Pulse Resp BP 96.8 F L 60 22 H 139/64 H 10/31/22 12:03 10/31/22 12:03 10/31/22 12:03 10/31/22 12:03 Weight: 154 lb Body Mass Index (BMI) 24.1 Charges/Coding Procedures Integumentary 150xxx-152xx: 61085 Skin sub graft trnk/arm/leg (58 modifier) Debridement Note Debridement Note Wound debrided: Lateral leg ulcer Laterality: Left Wound Grade/Stage: Stage IV Type of Debridement: Excisional debridement Anesthesia Used: 5% Lidocaine Gel Depth: Down to and including healthy tissue and in the subcutaneous layer Percentage of wound debrided: 100 Instrument Used: 5mm curette Tissue Removed: Devitalized tissue and slough. Severity: Fat Layer Exposed Amount of bleeding with debridement: Mild Bleeding Controlled with: Pressure and Compression and gauze Patient tolerated procedure: Patient tolerated procedure well Post-Debridement Measurements and Additional Note: Post-Debridement Measurements/Treatment VERONICA - Nurse 1 - General Ulcer Assessment Start: 10/24/22 14:02 Freq: Status: Active Protocol: OBED Activity Type Activity Date Activity User E-sign Co-sign Detail Recorded Client Recorded Date Recorded By Document 10/24/22 14:02 RB [id number] 10/24/22 14:06 RB Edit Result 10/24/22 14:02 RB (1) [id number] 10/24/22 14:43 RB Document 10/31/22 12:03 DL [id number] 10/31/22 12:09 DL (1) Arrival Mode Ambulatory,Walker => Ambulatory, => Wheelchair 10/24/22 10/31/22 14:02 12:03 WC - Today's Visit Information Type of service Follow-up Visit 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 ) ) Arrival Mode Ambulatory, Ambulatory Wheelchair Transfer Assistance None None Patient Identification Verified (Name & Yes Yes ) Patient Requires Transmission-Based No No Precautions Height and Weight Body Mass Index (BMI) 24.1 24.1 BMI Classification Normal Normal Vital Signs Temperature (97.8 F-99.1 F) 97 F L 96.8 F L Temperature Source Temporal Temporal Pulse Rate (60-100) 60 60 Pulse Location Monitor Monitor Respiratory Rate (12-18) 18 22 H Respiratory rate source Observation Observation Blood Pressure (90/60-120/80) 139/70 H 139/64 H Blood Pressure Mean (mm Hg) 93 89 Source Monitor Monitor Position Semi-Fowlers Blood Pressure Location Left Arm History Since Last Visit- (Skip if this is Patient's initial visit) Have you changed medications since your No No last visit? Any new allergies or adverse reactions No No Had a fall/change in ADL's that may No No increase risk of falls Signs or symptoms of abuse and/or No No neglect since last visit Have you been in the hospital since your No No last visit? Has dressing in place as prescribed Yes Yes Has compression in place as prescribed Yes Yes Has offloadiing in place as prescribed No Yes Experienced any changes in pain level or No No management Pain Scale: 0-10 Numeric Is Patient Pain Free? Yes Yes WC - Nurse 1 - General Ulcer Measurement Start: 10/24/22 14:02 Freq: Status: Active Protocol: Activity Type Activity Date Activity User E-sign Co-sign Detail Recorded Client Recorded Date Recorded By Document 10/24/22 14:02 RB [id number] 10/24/22 14:06 RB Document 10/31/22 12:03 DL [id number] 10/31/22 12:09 DL 10/24/22 10/31/22 14:02 12:03 Wound Center Nurse 1 # left lateral LE -Combined with other wound No -Current Size (cm) - Length 3.3 2.2 -Current Size (cm) - Width 1.4 1.3 -Current Size (cm) - Depth 0.1 0.1 -Total Square Cm 4.62 2.86 -Photo Taken Yes No -Tunneling No -Undermining/Tunneling No -Circular Undermining No -Exudate Amt Small -Exudate Type Serosanguineous -Wound Margin Thickened -Granulation Amt Medium (34-66%) Medium (34-66%) -Granulation Quality [place] -Slough/Fibrin Yes -Necrosis Amt Medium (34-66%) Medium (34-66%) -Necrotic Tissue Type Adherent Slough Adherent Slough -Structure Exposed N/A N/A -Texture (Caterina-wound Skin Appearance) Assessed, Scarring Scarring -Moisture (Caterina-wound Skin Appearance) Assessed No Abnormality -Color (Caterina-wound Skin Appearance) Assessed No Abnormality -Temperature (Caterina-wound Skin No Abnormality No Abnormality Appearance) (Pt Warm) (Pt Warm) -Tenderness on Palpation (Caterina-wound No No Skin Appearance) -Ulcer Cleansing Wound Cleanser Soap and Water -Foul Odor after Cleansing No No -Anesthetic Used 5% Lidocaine 5% Lidocaine Gel Gel Lower Limb Edema Present Yes Left Calf (cm) 36.7 31.5 Left Ankle (cm) 22 21 - Nurse 2 - General Ulcer CM Notes Start: 10/24/22 14:02 Freq: Status: Active Protocol: Activity Type Activity Date Activity User E-sign Co-sign Detail Recorded Client Recorded Date Recorded By Document 10/24/22 14:14 [id number] 10/24/22 14:26 Document 10/31/22 12:13 [id number] 10/31/22 12:20 10/24/22 10/31/22 14:14 12:13 Wound Center Nurse 2 # left lateral LE -Time 14:14 12:14 -Correct Patient Yes Yes -Correct Side, Site, Position Yes Yes -Correct Procedure Yes Yes -Procedure Performed Yes Yes -Type of Procedure Debridement Debridement -Clinical Debridement Subcutaneous Subcutaneous -Tissue Removed Subcutaneous Subcutaneous -Post Debridement (cm) - Length 3.3 2.2 -Post Debridement (cm) - Width 1.5 1.5 -Post Debridement (cm) - Depth 0.2 0.1 -Total Square (Post) (cm) 4.95 3.30 -Area of Debridement (cm) - Length 3.3 2.2 -Area of Debridement (cm) - Width 1.5 1.5 -Total Square (Area) (cm) 4.95 3.30 -Tunneling No No -Undermining/Tunneling No No -Circular Undermining No No -Wound/Ulcer Outcome Not Healed Not Healed -Ulcer Cleansing Rinsed/ Rinsed/ Irrigated with Irrigated with Saline Saline -Foul Odor after Cleansing No No -Bioengineered Tissue Yes Yes -Type of Bioengineered Tissue Epifix Epifix -Expiration Date 06/16/27 05/17/27 -Product Lot Number [id number] -Percent Used 100 100 -Lot number of Saline Used [id number] -Bleeding Controlled with Pressure Pressure -Treatment Response Procedure Procedure Tolerated Well Tolerated Well -Offloading No No -Debridement - Subq, 1st 20sq cm No No -Apply Skin Sub - 1st 25 sq cm - Legs 1 1 -Epifix (per sq cm) 4 4 Pain Scale: 0-10 Numeric Is Patient Pain Free? Yes Yes WC - Nurse 3 - General Ulcer D/C NN Start: 10/24/22 14:02 Freq: Status: Active Protocol: Activity Type Activity Date Activity User E-sign Co-sign Detail Recorded Client Recorded Date Recorded By Document 10/24/22 14:42 RB [id number] 10/24/22 14:43 RB Document 10/31/22 12:28 JF [id number] 10/31/22 12:29 JF 10/24/22 10/31/22 14:42 12:28 Wound Care Center Nurse 3 # left lateral LE -Ulcer Cleansing Rinsed/ Irrigated with Saline -Foul Odor after Cleansing No -Other Dressing abd -Primary Dressing Covered/Secured with Dry Gauze,Dry Dry Gauze,Dry Gauze & Roll Gauze & Roll Gauze,Secured Gauze,Secured with Tape with Tape Left -Tubular Bandage Single Layer Single Layer -Size of Tubigrip Used Size E Size D -Size D ($) 1 -Size E ($) 1 Pain Scale: 0-10 Numeric Is Patient Pain Free? Yes Yes WC - Visit Discharge Discharge Condition Stable Stable Ambulatory Status Wheelchair Wheelchair Transportation Private Auto Private Auto Accompanied by daughter Medication Reconcilliation completed & No Yes provided to patient/care provider Clinical Summary of Care Provided Yes Yes Assessment/Plan Assessment/Plan (1) Ulcer of left lower extremity with muscle involvement without evidence of necrosis: CODE(S): L97.925 - Non-pressure chronic ulcer of unspecified part of left lower leg with muscle involvement without evidence of necrosis (2) Hematoma of left lower leg: CODE(S): S80.12XA - Contusion of left lower leg, initial encounter (3) Skin necrosis: CODE(S): I96 - Gangrene, not elsewhere classified (4) Abscess of left leg: CODE(S): L02.416 - Cutaneous abscess of left lower limb (5) Chronic anticoagulation: 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 Wound care - Epifix #2 applied. 100% of the 2x2 Epifix was applied. It was secured with wound veil and steri strips. It was moistened with saline and covered with ABD pad. May change the outer dressing above the wound veil as needed. Instructed her not to get the ulcer wet. Compression - Tubigrip to the left leg for compression. Operative culture positive for MRSE - She was initially started on Doxycycline but it is resistant to the bacteria. Completed Linezolid. Pathology of the soft tissue of left leg showed Skin with underlying tissue with focal ulceration and associated acute inflammation. Underlying tissue with hematoma, associated fat necrosis, chronic inflammation, foreign body giant cell reaction and histiocytic reaction. Keep leg elevated. Follow up one week.
[2022-11-07 14:28] VITALS: BP 125/68; PULSE 60; RESP 16; TEMP 35.2; BMI 24.1
--- NOTE | 2022-11-07 15:28 | PCM.WC.PN ---
History of Present Illness Date of Service: 11/07/22 Chief Complaint: Left lateral lower leg hematoma History of Wound: 76 year old female who presented to the [facility] last week with a hematoma left lateral leg that she thought it occurred when she was hospitalized 07/09/22-07/13/22 for acute exacerbation of COPD. She is on Warfarin for history of Afib and PEs. She was seen in the ED on 07/26/22 because of increased redness, pain, and swelling and some overlying skin necrosis. Her INR was 5.5 in the ED. She was placed on Doxycycline. She has a history of CHF, COPD, Pacemaker, DVT, PE, ANKUSH, chronic anticoagulation with Coumadin and is on home oxygen. Surgery 08/19/22 - Surgical preparation left lateral leg with incision and drainage and evacuation infected hematoma abscess and excisional debridement overlying skin necrosis. [facility] was [facility] wound VAC on 08/20/22. Operative culture positive for MRSE. Today she denies fever. Her appetite is ok. Progress of Wound: Left lateral leg ulcer is beefy pink and smaller in size. Caterina wound is clear. She has been tolerating the Epifix advanced wound healing product well. Objective Data Objective Data Vital Signs: Vital Signs Temp Pulse Resp BP O2 Del Method 95.4 F L 60 16 125/68 H Room Air 11/07/22 14:28 11/07/22 14:28 11/07/22 14:28 11/07/22 14:28 11/07/22 14:28 Oxygen Delivery Method Room Air Weight: 154 lb Body Mass Index (BMI) 24.1 Charges/Coding Procedures Integumentary 150xxx-152xx: 72717 Skin sub graft trnk/arm/leg (58 modifier) Debridement Note Debridement Note Wound debrided: Lateral leg ulcer Laterality: Left Wound Grade/Stage: Stage IV Type of Debridement: Excisional debridement Anesthesia Used: 5% Lidocaine Gel Depth: Down to and including healthy tissue and in the subcutaneous layer Percentage of wound debrided: 100 Instrument Used: 5mm curette Tissue Removed: Devitalized tissue and slough. Severity: Fat Layer Exposed Amount of bleeding with debridement: Mild Bleeding Controlled with: Pressure and Compression and gauze Patient tolerated procedure: Patient tolerated procedure well Post-Debridement Measurements and Additional Note: Post-Debridement Measurements/Treatment WC - Nurse 1 - General Ulcer Assessment Start: 10/24/22 14:02 Freq: Status: Active Protocol: WC.LOWEXT Activity Type Activity Date Activity User E-sign Co-sign Detail Recorded Client Recorded Date Recorded By Document 10/24/22 14:02 RB [id number] 10/24/22 14:06 RB Edit Result 10/24/22 14:02 RB (1) [id number] 10/24/22 14:43 RB Document 10/31/22 12:03 DL [id number] 10/31/22 12:09 DL Document 11/07/22 14:28 BMF [id number] 11/07/22 14:39 BMF (1) Arrival Mode Ambulatory,Walker => Ambulatory, => Wheelchair 10/24/22 10/31/22 11/07/22 14:02 12:03 14:28 WC - Today's Visit Information Type of service Follow-up Visit Follow-up Visit Follow-up Visit (Physician/ENVIRONMENTAL ENGINEERING INTERN (Physician/ENVIRONMENTAL ENGINEERING INTERN (Physician/ENVIRONMENTAL ENGINEERING INTERN ) ) ) Arrival Mode Ambulatory, Ambulatory Wheelchair Wheelchair Transfer Assistance None None Other Transfer Assist (Other) 1 Accompanied by DAUGHTER Patient Identification Verified (Name & Yes Yes Yes ) Patient Requires Transmission-Based No No No Precautions Height and Weight Body Mass Index (BMI) 24.1 24.1 24.1 BMI Classification Normal Normal Normal Vital Signs Temperature (97.8 F-99.1 F) 97 F L 96.8 F L 95.4 F L Temperature Source Temporal Temporal Temporal Pulse Rate (60-100) 60 60 60 Pulse Location Monitor Monitor Monitor Respiratory Rate (12-18) 18 22 H 16 Respiratory rate source Observation Observation Observation Oxygen Delivery Method Room Air Blood Pressure (90/60-120/80) 139/70 H 139/64 H 125/68 H Blood Pressure Mean (mm Hg) 93 89 87 Source Monitor Monitor Monitor Position Semi-Fowlers Sitting Blood Pressure Location Left Arm Left Arm History Since Last Visit- (Skip if this is Patient's initial visit) Have you changed medications since your No No No last visit? Any new allergies or adverse reactions No No No Had a fall/change in ADL's that may No No No increase risk of falls Signs or symptoms of abuse and/or No No No neglect since last visit Have you been in the hospital since your No No No last visit? Has dressing in place as prescribed Yes Yes Yes Has compression in place as prescribed Yes Yes Yes Has offloadiing in place as prescribed No Yes N/A Experienced any changes in pain level or No No No management Left Footwear Regular Shoe Right Footwear Regular Shoe Pain Scale: 0-10 Numeric Is Patient Pain Free? Yes Yes Yes WC - Nurse 1 - General Ulcer Measurement Start: 10/24/22 14:02 Freq: Status: Active Protocol: Activity Type Activity Date Activity User E-sign Co-sign Detail Recorded Client Recorded Date Recorded By Document 10/24/22 14:02 RB [id number] 10/24/22 14:06 RB Document 10/31/22 12:03 DL [id number] 10/31/22 12:09 DL Document 11/07/22 14:28 BMF [id number] 11/07/22 14:39 BMF 10/24/22 10/31/22 11/07/22 14:02 12:03 14:28 Wound Center Nurse 1 # left lateral LE -Combined with other wound No No -Current Size (cm) - Length 3.3 2.2 1.7 -Current Size (cm) - Width 1.4 1.3 0.9 -Current Size (cm) - Depth 0.1 0.1 0.1 -Total Square Cm 4.62 2.86 1.53 -Date of Last Picture (Recall this 11/07/22 field) -Photo Taken Yes No Yes -Epithelialization Small 1-33% -Tunneling No No -Undermining/Tunneling No No -Circular Undermining No No -Exudate Amt Small Medium -Exudate Type Serosanguineous Serosanguineous -Wound Margin Thickened Distinct, Outline Attached -Granulation Amt Medium (34-66%) Medium (34-66%) None Present (0 %) -Granulation Quality [place] -Slough/Fibrin Yes Yes -Necrosis Amt Medium (34-66%) Medium (34-66%) Large (67-100%) -Necrotic Tissue Type Adherent Slough Adherent Slough Adherent Slough -Structure Exposed N/A N/A -Texture (Caterina-wound Skin Appearance) Assessed, Scarring Assessed, Scarring Scarring -Moisture (Caterina-wound Skin Appearance) Assessed No Abnormality Assessed -Color (Caterina-wound Skin Appearance) Assessed No Abnormality Assessed -Temperature (Caterina-wound Skin No Abnormality No Abnormality No Abnormality Appearance) (Pt Warm) (Pt Warm) (Pt Warm) -Tenderness on Palpation (Caterina-wound No No No Skin Appearance) -Ulcer Cleansing Wound Cleanser Soap and Water Soap and Water -Foul Odor after Cleansing No No No -Anesthetic Used 5% Lidocaine 5% Lidocaine 5% Lidocaine Gel Gel Gel Lower Limb Edema Present Yes Left Calf (cm) 36.7 31.5 34.5 Left Ankle (cm) 22 21 21.6 WC - Nurse 2 - General Ulcer CM Notes Start: 10/24/22 14:02 Freq: Status: Active Protocol: Activity Type Activity Date Activity User E-sign Co-sign Detail Recorded Client Recorded Date Recorded By Document 10/24/22 14:14 [id number] 10/24/22 14:26 Document 10/31/22 12:13 [id number] 10/31/22 12:20 Document 11/07/22 14:56 [id number] 11/07/22 14:58 10/24/22 10/31/22 11/07/22 14:14 12:13 14:56 Wound Center Nurse 2 # left lateral LE -Time 14:14 12:14 14:56 -Correct Patient Yes Yes Yes -Correct Side, Site, Position Yes Yes Yes -Correct Procedure Yes Yes Yes -Procedure Performed Yes Yes Yes -Type of Procedure Debridement Debridement Debridement -Clinical Debridement Subcutaneous Subcutaneous Subcutaneous -Tissue Removed Subcutaneous Subcutaneous Subcutaneous -Post Debridement (cm) - Length 3.3 2.2 1.5 -Post Debridement (cm) - Width 1.5 1.5 1.0 -Post Debridement (cm) - Depth 0.2 0.1 0.1 -Total Square (Post) (cm) 4.95 3.30 1.50 -Area of Debridement (cm) - Length 3.3 2.2 1.5 -Area of Debridement (cm) - Width 1.5 1.5 1.0 -Total Square (Area) (cm) 4.95 3.30 1.50 -Tunneling No No No -Undermining/Tunneling No No No -Circular Undermining No No No -Wound/Ulcer Outcome Not Healed Not Healed Not Healed -Ulcer Cleansing Rinsed/ Rinsed/ Rinsed/ Irrigated with Irrigated with Irrigated with Saline Saline Saline -Foul Odor after Cleansing No No No -Bioengineered Tissue Yes Yes Yes -Type of Bioengineered Tissue Epifix Epifix Epifix 18mm Disc -Expiration Date 06/16/27 05/17/27 07/17/27 -Product Lot Number [id number] -Percent Used 100 100 100 -Lot number of Saline Used [id number] -Bleeding Controlled with Pressure Pressure Pressure -Treatment Response Procedure Procedure Procedure Tolerated Well Tolerated Well Tolerated Well -Offloading No No No -Debridement - Subq, 1st 20sq cm No No No -Apply Skin Sub - 1st 25 sq cm - Legs 1 1 1 -Epifix (per sq cm) 4 4 -Epifix 18mm Disc 3 Pain Scale: 0-10 Numeric Is Patient Pain Free? Yes Yes Yes - Nurse 3 - General Ulcer D/C NN Start: 10/24/22 14:02 Freq: Status: Active Protocol: Activity Type Activity Date Activity User E-sign Co-sign Detail Recorded Client Recorded Date Recorded By Document 10/24/22 14:42 RB [id number] 10/24/22 14:43 RB Document 10/31/22 12:28 [id number] 10/31/22 12:29 JF Document 11/07/22 15:09 DL [id number] 11/07/22 15:11 DL 10/24/22 10/31/22 11/07/22 14:42 12:28 15:09 Wound Care Center Nurse 3 # left lateral LE -Ulcer Cleansing Rinsed/ Irrigated with Saline -Foul Odor after Cleansing No -Other Dressing abd EpiFix -Primary Dressing Covered/Secured with Dry Gauze,Dry Dry Gauze,Dry Dry Gauze & Gauze & Roll Gauze & Roll Roll Gauze, Gauze,Secured Gauze,Secured Secured with with Tape with Tape Tape -Other Covering ABD Left -Tubular Bandage Single Layer Single Layer -Size of Tubigrip Used Size E Size D -Size D ($) 1 -Size E ($) 1 -Other Tubigrip Treatment Response Procedure Tolerated Well Pain Scale: 0-10 Numeric Is Patient Pain Free? Yes Yes Yes WC - Visit Discharge Discharge Condition Stable Stable Stable Ambulatory Status Wheelchair Wheelchair Wheelchair Transportation Private Auto Private Auto Private Auto Accompanied by daughter Medication Reconcilliation completed & No Yes provided to patient/care provider Clinical Summary of Care Provided Yes Yes Facility Type [facility] Orders Sent Yes Assessment/Plan Assessment/Plan (1) Ulcer of left lower extremity with muscle involvement without evidence of necrosis: CODE(S): L97.925 - Non-pressure chronic ulcer of unspecified part of left lower leg with muscle involvement without evidence of necrosis (2) Hematoma of left lower leg: CODE(S): S80.12XA - Contusion of left lower leg, initial encounter (3) Skin necrosis: CODE(S): I96 - Gangrene, not elsewhere classified (4) Abscess of left leg: CODE(S): L02.416 - Cutaneous abscess of left lower limb (5) Chronic anticoagulation: CODE(S): Z79.01 - long-term (current) use of anticoagulants (6) History of pulmonary embolism: CODE(S): Z86.711 - Personal history of pulmonary embolism (7) History of recurrent deep vein thrombosis (DVT): CODE(S): Z86.718 - Personal history of other venous thrombosis and embolism (8) Former smoker: CODE(S): Z87.891 - Personal history of nicotine dependence PLAN: Plan Patient evaluated at the wound healing center. Wound care - Epifix #3 applied. 100% of the Epifix was applied. It was secured with wound veil and steri strips. It was moistened with saline and covered with ABD pad. May change the outer dressing above the wound veil as needed. Instructed her not to get the ulcer wet. Compression - Single tubigrip to the left leg for compression. Operative culture positive for MRSE - She was initially started on Doxycycline but it is resistant to the bacteria. Completed Linezolid. Pathology of the soft tissue of left leg showed Skin with underlying tissue with focal ulceration and associated acute inflammation. Underlying tissue with hematoma, associated fat necrosis, chronic inflammation, foreign body giant cell reaction and histiocytic reaction. Keep leg elevated. Follow up one week.
== END 2022-11-13 23:59 | disposition home or self-care (01) ==
LOC: WC 14:30
PROVIDERS: PCP Family Medicine; Visit Provider Nurse Practitioner Family
DX: L97.822 Non-pressure chronic ulcer of other part of left lower leg with fat layer exposed (principal); I96 Gangrene, not elsewhere classified; J44.9 Chronic obstructive pulmonary disease, unspecified; I50.9 Heart failure, unspecified; I48.91 Unspecified atrial fibrillation; L02.416 Cutaneous abscess of left lower limb; S80.12XS Contusion of left lower leg, sequela; Z99.81 Dependence on supplemental oxygen; Z79.01 Long term (current) use of anticoagulants; Z79.899 Other long term (current) drug therapy; Z86.711 Personal history of pulmonary embolism; Z95.0 Presence of cardiac pacemaker; Z86.718 Personal history of other venous thrombosis and embolism; Z87.891 Personal history of nicotine dependence
CPT/HCPCS: 15271; Q4186

== ENCOUNTER 2022-11-21 15:00 | Outpatient (RCR) | payer MEDICARE, MEDICAID, SELFPAY ==
[2022-11-14 00:36] VITALS: BP 125/68; PULSE 60; RESP 16; TEMP 35.2; BMI 24.1
[2022-11-14 14:27] VITALS: BP 137/66; PULSE 59; RESP 20; TEMP 36.2; BMI 24.1
--- NOTE | 2022-11-14 16:00 | PN.PCM_ITS ---
History of Present Illness Date of Service: 11/14/22 Chief Complaint: Left lateral lower leg hematoma History of Wound: 76 year old female who presented to the Wound Center last week with a hematoma left lateral leg that she thought it occurred when she was hospitalized 07/09/22-07/13/22 for acute exacerbation of COPD. She is on Warfarin for history of Afib and PEs. She was seen in the ED on 07/26/22 because of increased redness, pain, and swelling and some overlying skin necrosis. Her INR was 5.5 in the ED. She was placed on Doxycycline. She has a history of CHF, COPD, Pacemaker, DVT, PE, ANKUSH, chronic anticoagulation with Coumadin and is on home oxygen. Surgery 08/19/22 - Surgical preparation left lateral leg with incision and drainage and evacuation infected hematoma abscess and excisional debridement overlying skin necrosis. She was [facility] with a wound VAC on 08/20/22. Operative culture positive for MRSE. Today she denies fever. Her appetite is ok. Progress of Wound: Left lateral leg ulcer is beefy pink and much smaller in size. Caterina wound is clear. She has been tolerating the Epifix advanced wound healing product well. Objective Data Objective Data Vital Signs: Vital Signs Temp Pulse Resp BP O2 Flow Rate 97.1 F L 59 L 20 H 137/66 H 2 11/14/22 14:27 11/14/22 14:27 11/14/22 14:27 11/14/22 14:27 11/14/22 14:27 Oxygen Flow Rate (L/min) 2 Weight: 154 lb Body Mass Index (BMI) 24.1 Charges/Coding Procedures Integumentary 150xxx-152xx: 29924 Skin sub graft trnk/arm/leg (58 modifier) Debridement Note Debridement Note Wound debrided: Lateral leg ulcer Laterality: Left Wound Grade/Stage: Stage IV Type of Debridement: Excisional debridement Anesthesia Used: 5% Lidocaine Gel Depth: Down to and including healthy tissue and in the subcutaneous layer Percentage of wound debrided: 100 Instrument Used: 3mm curette Tissue Removed: Devitalized tissue and slough. Severity: Fat Layer Exposed Amount of bleeding with debridement: Mild Bleeding Controlled with: Pressure and Compression and gauze Patient tolerated procedure: Patient tolerated procedure well Post-Debridement Measurements and Additional Note: Post-Debridement Measurements/Treatment WC - Nurse 1 - General Ulcer Assessment Start: 11/14/22 14:26 Freq: Status: Active Protocol: OBED Activity Type Activity Date Activity User E-sign Co-sign Detail Recorded Client Recorded Date Recorded By Document 11/14/22 14:27 DL [id number] 11/14/22 14:34 DL 11/14/22 14:27 WC - Today's Visit Information Type of service Follow-up Visit (Physician/ASSISTANT OFFSET PRESS OPERATOR ) Arrival Mode Wheelchair Transfer Assistance None Patient Identification Verified (Name & Yes ) Height and Weight Body Mass Index (BMI) 24.1 BMI Classification Normal Vital Signs Temperature (97.8 F-99.1 F) 97.1 F L Temperature Source Temporal Pulse Rate (60-100) 59 L Pulse Location Monitor Respiratory Rate (12-18) 20 H Respiratory rate source Observation O2 L/MIN (L/min) 2 Blood Pressure (90/60-120/80) 137/66 H Blood Pressure Mean (mm Hg) 89 Source Monitor History Since Last Visit- (Skip if this is Patient's initial visit) Have you changed medications since your No last visit? Any new allergies or adverse reactions No Had a fall/change in ADL's that may No increase risk of falls Signs or symptoms of abuse and/or No neglect since last visit Have you been in the hospital since your No last visit? Has dressing in place as prescribed Yes Has compression in place as prescribed Yes Has offloadiing in place as prescribed N/A Experienced any changes in pain level or No management Pain Scale: 0-10 Numeric Is Patient Pain Free? Yes - Nurse 1 - General Ulcer Measurement Start: 11/14/22 14:26 Freq: Status: Active Protocol: Activity Type Activity Date Activity User E-sign Co-sign Detail Recorded Client Recorded Date Recorded By Document 11/14/22 14:27 DL [id number] 11/14/22 14:34 DL 11/14/22 14:27 Wound Center Nurse 1 # left lateral LE -Current Size (cm) - Length 1 -Current Size (cm) - Width 0.8 -Current Size (cm) - Depth 0.1 -Total Square Cm 0.8 -Photo Taken No -Exudate Amt Small -Exudate Type Serosanguineous -Wound Margin Thickened -Granulation Amt None Present (0 %) -Necrosis Amt Small (1-33%) -Necrotic Tissue Type Adherent Slough -Structure Exposed N/A -Texture (Caterina-wound Skin Appearance) Scarring -Moisture (Caterina-wound Skin Appearance) No Abnormality -Color (Caterina-wound Skin Appearance) No Abnormality -Temperature (Caterina-wound Skin No Abnormality Appearance) (Pt Warm) -Tenderness on Palpation (Caterina-wound No Skin Appearance) -Ulcer Cleansing Soap and Water -Foul Odor after Cleansing No -Anesthetic Used 5% Lidocaine Gel Left Calf (cm) 32.6 Left Ankle (cm) 22 WC - Nurse 2 - General Ulcer CM Notes Start: 11/14/22 14:26 Freq: Status: Active Protocol: Activity Type Activity Date Activity User E-sign Co-sign Detail Recorded Client Recorded Date Recorded By Document 11/14/22 14:51 MILAGROS [id number] 11/14/22 15:00 MILAGROS 11/14/22 14:51 Wound Center Nurse 2 # left lateral LE -Time 14:58 -Correct Patient Yes -Correct Side, Site, Position Yes -Correct Procedure Yes -Procedure Performed Yes -Type of Procedure Debridement -Clinical Debridement Subcutaneous -Tissue Removed Subcutaneous -Post Debridement (cm) - Length 0.9 -Post Debridement (cm) - Width 0.7 -Post Debridement (cm) - Depth 0.1 -Total Square (Post) (cm) 0.63 -Area of Debridement (cm) - Length 0.9 -Area of Debridement (cm) - Width 0.7 -Total Square (Area) (cm) 0.63 -Tunneling No -Undermining/Tunneling No -Circular Undermining No -Wound/Ulcer Outcome Not Healed -Ulcer Cleansing Rinsed/ Irrigated with Saline -Foul Odor after Cleansing No -Bioengineered Tissue Yes -Type of Bioengineered Tissue Epifix 18mm Disc -Expiration Date 07/17/27 -Product Lot Number [id number] -Percent Used 100 -Lot number of Saline Used [id number] -Bleeding Controlled with Pressure -Treatment Response Procedure Tolerated Well -Offloading No -Debridement - Subq, 1st 20sq cm No -Apply Skin Sub - 1st 25 sq cm - Legs 1 -Epifix 18mm Disc 3 Pain Scale: 0-10 Numeric Is Patient Pain Free? Yes - Nurse 3 - General Ulcer D/C NN Start: 11/14/22 14:26 Freq: Status: Active Protocol: Activity Type Activity Date Activity User E-sign Co-sign Detail Recorded Client Recorded Date Recorded By Document 11/14/22 15:15 FUNMILAYO [id number] 11/14/22 15:16 FUNMILAYO 11/14/22 15:15 Wound Care Center Nurse 3 # left lateral LE -Other Dressing ABD, Kerlix -Primary Dressing Covered/Secured with Secured with Tape Pain Scale: 0-10 Numeric Is Patient Pain Free? Yes WC - Visit Discharge Discharge Condition Stable Ambulatory Status Wheelchair Transportation Private Auto Assessment/Plan Assessment/Plan (1) Ulcer of left lower extremity with muscle involvement without evidence of necrosis: CODE(S): L97.925 - Non-pressure chronic ulcer of unspecified part of left lower leg with muscle involvement without evidence of necrosis (2) Hematoma of left lower leg: CODE(S): S80.12XA - Contusion of left lower leg, initial encounter (3) Skin necrosis: CODE(S): I96 - Gangrene, not elsewhere classified (4) Abscess of left leg: CODE(S): L02.416 - Cutaneous abscess of left lower limb (5) Chronic anticoagulation: CODE(S): Z79.01 - correction (current) use of anticoagulants (6) History of pulmonary embolism: CODE(S): Z86.711 - Personal history of pulmonary embolism (7) History of recurrent deep vein thrombosis (DVT): CODE(S): Z86.718 - Personal history of other venous thrombosis and embolism (8) Former smoker: CODE(S): Z87.891 - Personal history of nicotine dependence PLAN: Plan Patient evaluated at the wound healing center. Left lateral leg ulcer is showing much improvement using the Epifix. Wound care - Epifix #4 applied. 100% of the Epifix was applied. It was secured with wound veil and steri strips. It was moistened with saline and covered with ABD pad. May change the outer dressing above the wound veil as needed. Instructed her not to get the ulcer wet. Compression - Single tubigrip to the left leg for compression. Operative culture positive for MRSE - She was initially started on Doxycycline but it is resistant to the bacteria. Completed Linezolid. Pathology of the soft tissue of left leg showed Skin with underlying tissue with focal ulceration and associated acute inflammation. Underlying tissue with hematoma, associated fat necrosis, chronic inflammation, foreign body giant cell reaction and histiocytic reaction. Keep leg elevated. Follow up one week.
[2022-11-21 14:43] VITALS: BP 138/69; PULSE 60; RESP 18; TEMP 36.3; BMI 24.1
--- NOTE | 2022-11-21 15:36 | PCM.WC.PN ---
History of Present Illness Date of Service: 11/21/22 Chief Complaint: Left lateral lower leg hematoma History of Wound: 76 year old female who presented to the [facility] last week with a hematoma left lateral leg that she thought it occurred when she was hospitalized 07/09/22-07/13/22 for acute exacerbation of COPD. She is on Warfarin for history of Afib and PEs. She was seen in the ED on 07/26/22 because of increased redness, pain, and swelling and some overlying skin necrosis. Her INR was 5.5 in the ED. She was placed on Doxycycline. She has a history of CHF, COPD, Pacemaker, DVT, PE, ANKUSH, chronic anticoagulation with Coumadin and is on home oxygen. Surgery 08/19/22 - Surgical preparation left lateral leg with incision and drainage and evacuation infected hematoma abscess and excisional debridement overlying skin necrosis. [facility] wound [facility] on 08/20/22. Operative culture positive for MRSE. Today she denies fever. Her appetite is ok. Progress of Wound: Left lateral leg ulcer is beefy pink and much smaller in size and almost healed. She has had 4 application of Epifix, which she tolerated well. Caterina wound is clear. Objective Data Objective Data Vital Signs: Vital Signs Temp Pulse Resp BP O2 Del Method O2 Flow Rate 97.3 F L 60 18 138/69 H Nasal Cannula 2 11/21/22 14:43 11/21/22 14:43 11/21/22 14:43 11/21/22 14:43 11/21/22 14:43 11/14/22 14:27 Oxygen Flow Rate (L/min) 2 Oxygen Delivery Method Nasal Cannula Weight: 154 lb Body Mass Index (BMI) 24.1 Charges/Coding Procedures Integumentary 111xxx-113xx: 98132 Mikki subq tissue 20 sq cm/< Debridement Note Debridement Note Wound debrided: Lateral leg ulcer Laterality: Left Wound Grade/Stage: Stage IV Type of Debridement: Excisional debridement Anesthesia Used: 5% Lidocaine Gel Depth: Down to and including healthy tissue and in the subcutaneous layer Percentage of wound debrided: 100 Instrument Used: 3mm curette Tissue Removed: Devitalized tissue and slough. Severity: Fat Layer Exposed Amount of bleeding with debridement: Mild Bleeding Controlled with: Pressure and Compression and gauze Patient tolerated procedure: Patient tolerated procedure well Post-Debridement Measurements and Additional Note: Post-Debridement Measurements/Treatment - Nurse 1 - General Ulcer Assessment Start: 11/14/22 14:26 Freq: Status: Active Protocol: OBED Activity Type Activity Date Activity User E-sign Co-sign Detail Recorded Client Recorded Date Recorded By Document 11/14/22 14:27 DL [id number] 11/14/22 14:34 DL Document 11/21/22 14:43 BM [id number] 11/21/22 14:50 BMF 11/14/22 11/21/22 14:27 14:43 - Today's Visit Information Type of service Follow-up Visit Follow-up Visit (Physician/WEB OPERATIONS SPECIALIST (Physician/WEB OPERATIONS SPECIALIST ) ) Arrival Mode Wheelchair Wheelchair Transfer Assistance None Other Transfer Assist (Other) 1 Accompanied by son in law in [facility] Patient Identification Verified (Name & Yes Yes ) Patient Requires Transmission-Based No Precautions Height and Weight Body Mass Index (BMI) 24.1 24.1 BMI Classification Normal Normal Vital Signs Temperature (97.8 F-99.1 F) 97.1 F L 97.3 F L Temperature Source Temporal Temporal Pulse Rate (60-100) 59 L 60 Pulse Location Monitor Monitor Respiratory Rate (12-18) 20 H 18 Respiratory rate source Observation Observation Oxygen Delivery Method Nasal Cannula O2 L/MIN (L/min) 2 Blood Pressure (90/60-120/80) 137/66 H 138/69 H Blood Pressure Mean (mm Hg) 89 92 Source Monitor Monitor Position Sitting Blood Pressure Location Right Arm History Since Last Visit- (Skip if this is Patient's initial visit) Have you changed medications since your No No last visit? Any new allergies or adverse reactions No No Had a fall/change in ADL's that may No No increase risk of falls Signs or symptoms of abuse and/or No No neglect since last visit Have you been in the hospital since your No No last visit? Has dressing in place as prescribed Yes Yes Has compression in place as prescribed Yes Yes Has offloadiing in place as prescribed N/A N/A Experienced any changes in pain level or No No management Left Footwear Regular Shoe Right Footwear Regular Shoe Pain Scale: 0-10 Numeric Is Patient Pain Free? Yes Yes VERONICA - Nurse 1 - General Ulcer Measurement Start: 11/14/22 14:26 Freq: Status: Active Protocol: Activity Type Activity Date Activity User E-sign Co-sign Detail Recorded Client Recorded Date Recorded By Document 11/14/22 14:27 DL [id number] 11/14/22 14:34 DL Document 11/21/22 14:43 [facility] [id number] 11/21/22 14:50 [facility] 11/14/22 11/21/22 14:27 14:43 Wound Center Nurse 1 # left lateral LE -Combined with other wound No -Current Size (cm) - Length 1 0.1 -Current Size (cm) - Width 0.8 0.1 -Current Size (cm) - Depth 0.1 0.1 -Total Square Cm 0.8 0.01 -Date of Last Picture (Recall this 11/21/22 field) -Photo Taken No Yes -Epithelialization Large 67-100% -Tunneling No -Undermining/Tunneling No -Circular Undermining No -Exudate Amt Small None Present -Exudate Type Serosanguineous -Wound Margin Thickened Distinct, Outline Attached -Granulation Amt None Present (0 None Present (0 %) %) -Slough/Fibrin Yes -Necrosis Amt Small (1-33%) Small (1-33%) -Necrotic Tissue Type Adherent Slough Eschar -Structure Exposed N/A -Texture (Caterina-wound Skin Appearance) Scarring Assessed, Scarring -Moisture (Caterina-wound Skin Appearance) No Abnormality Assessed,Dry/ Scaly -Color (Caterina-wound Skin Appearance) No Abnormality Assessed -Temperature (Caterina-wound Skin No Abnormality No Abnormality Appearance) (Pt Warm) (Pt Warm) -Tenderness on Palpation (Caterina-wound No No Skin Appearance) -Ulcer Cleansing Soap and Water Soap and Water -Foul Odor after Cleansing No No -Anesthetic Used 5% Lidocaine 5% Lidocaine Gel Gel Left Calf (cm) 32.6 33.6 Left Ankle (cm) 22 21.4 WC - Nurse 2 - General Ulcer CM Notes Start: 11/14/22 14:26 Freq: Status: Active Protocol: Activity Type Activity Date Activity User E-sign Co-sign Detail Recorded Client Recorded Date Recorded By Document 11/14/22 14:51 [id number] 11/14/22 15:00 Document 11/21/22 15:18 JF [id number] 11/21/22 15:19 JF 11/14/22 11/21/22 14:51 15:18 Wound Center Nurse 2 # left lateral LE -Time 14:58 15:19 -Correct Patient Yes Yes -Correct Side, Site, Position Yes Yes -Correct Procedure Yes Yes -Procedure Performed Yes Yes -Type of Procedure Debridement Debridement -Clinical Debridement Subcutaneous Subcutaneous -Tissue Removed Subcutaneous Subcutaneous -Post Debridement (cm) - Length 0.9 0.6 -Post Debridement (cm) - Width 0.7 0.4 -Post Debridement (cm) - Depth 0.1 0.1 -Total Square (Post) (cm) 0.63 0.24 -Area of Debridement (cm) - Length 0.9 0.6 -Area of Debridement (cm) - Width 0.7 0.4 -Total Square (Area) (cm) 0.63 0.24 -Tunneling No No -Undermining/Tunneling No No -Circular Undermining No No -Wound/Ulcer Outcome Not Healed Not Healed -Ulcer Cleansing Rinsed/ Rinsed/ Irrigated with Irrigated with Saline Saline -Foul Odor after Cleansing No No -Bioengineered Tissue Yes No -Type of Bioengineered Tissue Epifix 18mm Disc -Expiration Date 07/17/27 -Product Lot Number [id number] -Percent Used 100 -Lot number of Saline Used [id number] -Bleeding Controlled with Pressure Pressure -Treatment Response Procedure Procedure Not Tolerated Well Tolerated Well -Offloading No No -Debridement - Subq, 1st 20sq cm No Yes -Apply Skin Sub - 1st 25 sq cm - Legs 1 -Epifix 18mm Disc 3 Pain Scale: 0-10 Numeric Is Patient Pain Free? Yes Yes - Nurse 3 - General Ulcer D/C NN Start: 11/14/22 14:26 Freq: Status: Active Protocol: Activity Type Activity Date Activity User E-sign Co-sign Detail Recorded Client Recorded Date Recorded By Document 11/14/22 15:15 PL [id number] 11/14/22 15:16 PL Document 11/21/22 15:32 DL [id number] 11/21/22 15:33 DL 11/14/22 11/21/22 15:15 15:32 Wound Care Center Nurse 3 # left lateral LE -Ulcer Cleansing Rinsed/ Irrigated with Saline -Foul Odor after Cleansing No -Primary Dressing Applied C Hydrogel ($) -Other Dressing ABD, Kerlix -Primary Dressing Covered/Secured with Secured with Dry Gauze & Tape Roll Gauze, Secured with Tape Right -Tubular Bandage Single Layer -Size of Tubigrip Used Size D -Size D ($) 1 Treatment Response Procedure Tolerated Well Pain Scale: 0-10 Numeric Is Patient Pain Free? Yes Yes WC - Visit Discharge Discharge Condition Stable Stable Ambulatory Status Wheelchair Wheelchair Transportation Private Auto Facility Type [employer] [facility] Facility Orders Sent Yes Assessment/Plan Assessment/Plan (1) Ulcer of left lower extremity with muscle involvement without evidence of necrosis: CODE(S): L97.925 - Non-pressure chronic ulcer of unspecified part of left lower leg with muscle involvement without evidence of necrosis (2) Hematoma of left lower leg: CODE(S): S80.12XA - Contusion of left lower leg, initial encounter (3) Skin necrosis: CODE(S): I96 - Gangrene, not elsewhere classified (4) Abscess of left leg: CODE(S): L02.416 - Cutaneous abscess of left lower limb (5) Chronic anticoagulation: CODE(S): Z79.01 - joint terminal attack controller (current) use of anticoagulants (6) History of pulmonary embolism: CODE(S): Z86.711 - Personal history of pulmonary embolism (7) History of recurrent deep vein thrombosis (DVT): CODE(S): Z86.718 - Personal history of other venous thrombosis and embolism (8) Former smoker: CODE(S): Z87.891 - Personal history of nicotine dependence PLAN: Plan Patient evaluated at the wound healing center. Left lateral leg ulcer is showing much improvement using the Epifix. Wound care - She has had 4 applications of Epifix. The ulcer is so small that we will start collagen hydrogel covered with gauze every other day. Compression - Single tubigrip to the left leg for compression. Operative culture positive for MRSE - She was initially started on Doxycycline but it is resistant to the bacteria. Completed Linezolid. Pathology of the soft tissue of left leg showed Skin with underlying tissue with focal ulceration and associated acute inflammation. Underlying tissue with hematoma, associated fat necrosis, chronic inflammation, foreign body giant cell reaction and histiocytic reaction. Keep leg elevated. Follow up two weeks.
== END 2022-12-14 23:59 | disposition home or self-care (01) ==
LOC: WC 15:00
PROVIDERS: PCP Family Medicine; Visit Provider Nurse Practitioner Family
DX: L97.822 Non-pressure chronic ulcer of other part of left lower leg with fat layer exposed (principal); I96 Gangrene, not elsewhere classified; J44.9 Chronic obstructive pulmonary disease, unspecified; I50.9 Heart failure, unspecified; I48.91 Unspecified atrial fibrillation; S80.12XS Contusion of left lower leg, sequela; Z86.711 Personal history of pulmonary embolism; L02.416 Cutaneous abscess of left lower limb; Z86.718 Personal history of other venous thrombosis and embolism; Z87.891 Personal history of nicotine dependence
CPT/HCPCS: 11042; 15271; Q4186

== ENCOUNTER 2022-12-19 14:41 | Outpatient (RCR) | payer MEDICARE, MEDICAID, SELFPAY ==
[2022-12-15 00:31] VITALS: BP 138/69; PULSE 60; RESP 18; TEMP 36.3; BMI 24.1
[2022-12-19 14:49] VITALS: BP 142/57; PULSE 60; RESP 20; TEMP 36.6; BMI 24.1
--- NOTE | 2022-12-19 16:17 | PCM.WC.PN ---
History of Present Illness Date of Service: 12/19/22 Chief Complaint: Left lateral lower leg hematoma History of Wound: 77 year old female who presented to the Wound Center last week with a hematoma left lateral leg that she thought it occurred when she was hospitalized 07/09/22-07/13/22 for acute exacerbation of COPD. She is on Warfarin for history of Afib and PEs. She was seen in the ED on 07/26/22 because of increased redness, pain, and swelling and some overlying skin necrosis. Her INR was 5.5 in the ED. She was placed on Doxycycline. She has a history of CHF, COPD, Pacemaker, DVT, PE, ANKUSH, chronic anticoagulation with Coumadin and is on home oxygen. Surgery 08/19/22 - Surgical preparation left lateral leg with incision and drainage and evacuation infected hematoma abscess and excisional debridement overlying skin necrosis. She was discharged back [facility] with a wound VAC on 08/20/22. Operative culture positive for MRSE. Today she denies fever. Her appetite is ok. Progress of Wound: Left lateral leg ulcer is healed. She has had 4 application of Epifix, which she tolerated well. Objective Data Objective Data Vital Signs: Vital Signs Temp Pulse Resp BP O2 Del Method O2 Flow Rate 97.8 F 60 20 H 142/57 H Nasal Cannula 2 12/19/22 14:49 12/19/22 14:49 12/19/22 14:49 12/19/22 14:49 12/19/22 14:49 12/15/22 00:31 Oxygen Flow Rate (L/min) 2 Oxygen Delivery Method Nasal Cannula Weight: 154 lb Body Mass Index (BMI) 24.1 Charges/Coding Visit Charges Office Visits / Consults: 10685 OV L3 Est Physical Exam Const alert, oriented x3 and no apparent distress General Appearance: well kempt HEENT normocephalic Head and Scalp: atraumatic Eyes General Eye: normal appearance of both eyes Neck full ROM Lymph Lymphatic: no lymphedema noted Resp normal respiratory effort, normal air movement and clear to auscultation bilaterally Resp Narrative: Uses O2 all the time. Cardio regular rate and regular rhythm GI normal to inspection, nondistended, normoactive bowel sounds, soft to palpation and non-tender Back/Spine normal ROM Extremity full ROM, normal capillary refill and no clubbing, cyanosis or edema Skin Wound Narrative: Left lateral leg ulcer is healed. Neuro oriented x3 and moves all extremities Sensorium / Orientation: awake and alert Psych mental status grossly normal Debridement Note Debridement Note No debridement was completed: No debridement was completed today Post-Debridement Measurements and Additional Note: Post-Debridement Measurements/Treatment - Nurse 1 - General Ulcer Assessment Start: 12/19/22 14:48 Freq: Status: Active Protocol: OBED Activity Type Activity Date Activity User E-sign Co-sign Detail Recorded Client Recorded Date Recorded By Document 12/19/22 14:49 DL [id number] 12/19/22 14:55 DL 12/19/22 14:49 WC - Today's Visit Information Type of service Follow-up Visit (Physician/GENERAL MACHINIST ) Arrival Mode Wheelchair Transfer Assistance Other Transfer Assist (Other) 2 stand by Patient Identification Verified (Name & Yes ) Patient Requires Transmission-Based No Precautions Height and Weight Body Mass Index (BMI) 24.1 BMI Classification Normal Vital Signs Temperature (97.8 F-99.1 F) 97.8 F Temperature Source Temporal Pulse Rate (60-100) 60 Pulse Location Monitor Respiratory Rate (12-18) 20 H Respiratory rate source Observation Oxygen Delivery Method Nasal Cannula Blood Pressure (90/60-120/80) 142/57 H Blood Pressure Mean (mm Hg) 85 Source Monitor Position Sitting Blood Pressure Location Left Arm History Since Last Visit- (Skip if this is Patient's initial visit) Have you changed medications since your No last visit? Any new allergies or adverse reactions No Had a fall/change in ADL's that may No increase risk of falls Signs or symptoms of abuse and/or No neglect since last visit Have you been in the hospital since your No last visit? Has dressing in place as prescribed No Has compression in place as prescribed No Has offloadiing in place as prescribed N/A Experienced any changes in pain level or No management Left Footwear Regular Shoe Right Footwear Regular Shoe Pain Scale: 0-10 Numeric Is Patient Pain Free? Yes VERONICA - Nurse 1 - General Ulcer Measurement Start: 12/19/22 14:48 Freq: Status: Active Protocol: Activity Type Activity Date Activity User E-sign Co-sign Detail Recorded Client Recorded Date Recorded By Document 12/19/22 14:49 DL [id number] 12/19/22 14:55 DL 12/19/22 14:49 Wound Center Nurse 1 # left lateral LE -Combined with other wound No -Current Size (cm) - Length 0 -Current Size (cm) - Width 0 -Current Size (cm) - Depth 0 -Total Square Cm 0 -Date of Last Picture (Recall this 12/19/22 field) -Photo Taken Yes -Epithelialization Large 67-100% -Tunneling No -Undermining/Tunneling No -Circular Undermining No -Exudate Amt None Present -Texture (Caterina-wound Skin Appearance) Assessed, Scarring -Moisture (Caterina-wound Skin Appearance) Assessed -Color (Caterina-wound Skin Appearance) Assessed -Temperature (Caterina-wound Skin No Abnormality Appearance) (Pt Warm) -Tenderness on Palpation (Caterina-wound No Skin Appearance) Lower Limb Edema Present Yes Left Calf (cm) 35.7 Left Ankle (cm) 22 - Nurse 2 - General Ulcer CM Notes Start: 12/19/22 14:48 Freq: Status: Active Protocol: Activity Type Activity Date Activity User E-sign Co-sign Detail Recorded Client Recorded Date Recorded By Document 12/19/22 15:11 DL [id number] 12/19/22 15:12 DL 12/19/22 15:11 Wound Center Nurse 2 # left lateral LE -Correct Patient No -Correct Side, Site, Position No -Correct Procedure No -Procedure Performed No -Post Debridement (cm) - Length 0 -Post Debridement (cm) - Width 0 -Post Debridement (cm) - Depth 0 -Total Square (Post) (cm) 0 -Area of Debridement (cm) - Length 0 -Area of Debridement (cm) - Width 0 -Total Square (Area) (cm) 0 -Wound/Ulcer Outcome Healed- Epithelialized Pain Scale: 0-10 Numeric Is Patient Pain Free? Yes - Nurse 3 - General Ulcer D/C NN Start: 12/19/22 14:48 Freq: Status: Active Protocol: Activity Type Activity Date Activity User E-sign Co-sign Detail Recorded Client Recorded Date Recorded By Document 12/19/22 15:12 DL [id number] 12/19/22 15:13 DL 12/19/22 15:12 Is Patient Pain Free? Yes WC - Visit Discharge Discharge Condition Stable Ambulatory Status Ambulatory, Wheelchair Transportation Private Auto Accompanied by MARCELLA Medication Reconcilliation completed & Yes provided to patient/care provider Clinical Summary of Care Provided Yes Assessment/Plan Assessment/Plan (1) Ulcer of left lower extremity with muscle involvement without evidence of necrosis: CODE(S): L97.925 - Non-pressure chronic ulcer of unspecified part of left lower leg with muscle involvement without evidence of necrosis (2) Hematoma of left lower leg: CODE(S): S80.12XA - Contusion of left lower leg, initial encounter (3) Skin necrosis: CODE(S): I96 - Gangrene, not elsewhere classified (4) Abscess of left leg: CODE(S): L02.416 - Cutaneous abscess of left lower limb (5) Chronic anticoagulation: CODE(S): Z79.01 - alf (current) use of anticoagulants (6) History of pulmonary embolism: CODE(S): Z86.711 - Personal history of pulmonary embolism (7) History of recurrent deep vein thrombosis (DVT): CODE(S): Z86.718 - Personal history of other venous thrombosis and embolism (8) Former smoker: CODE(S): Z87.891 - Personal history of nicotine dependence PLAN: Plan Patient evaluated at the wound healing center. Left lateral leg ulcer is healed today. Wound care - She has had 4 applications of Epifix. Encourage massage the healed scar 1-2 times day to help soften scarring. Compression - Single tubigrip to the left leg for compression. Operative culture positive for MRSE - She was initially started on Doxycycline but it is resistant to the bacteria. Completed Linezolid. Pathology of the soft tissue of left leg showed Skin with underlying tissue with focal ulceration and associated acute inflammation. Underlying tissue with hematoma, associated fat necrosis, chronic inflammation, foreign body giant cell reaction and histiocytic reaction. Follow up as needed.
== END 2022-12-19 16:30 | disposition home or self-care (01) ==
LOC: WC 14:41
PROVIDERS: PCP Family Medicine; Visit Provider Nurse Practitioner Family
DX: Z09 Encounter for follow-up examination after completed treatment for conditions other than malignant neoplasm (principal); J44.9 Chronic obstructive pulmonary disease, unspecified; I50.9 Heart failure, unspecified; R22.9 Localized swelling, mass and lump, unspecified; Z86.718 Personal history of other venous thrombosis and embolism; Z86.711 Personal history of pulmonary embolism; Z79.01 Long term (current) use of anticoagulants; Z95.0 Presence of cardiac pacemaker; G47.33 Obstructive sleep apnea (adult) (pediatric); Z87.891 Personal history of nicotine dependence
CPT/HCPCS: 99213; G0463

== ENCOUNTER 2022-12-30 22:02 | Inpatient (IN) | payer MEDICARE, MEDICAID, SELFPAY ==
[2022-12-30 22:02] VITALS: BP 143/68; PULSE 61; RESP 16; TEMP 36; O2SAT 99; BMI 30.5
[2022-12-30 22:06] VITALS: BP 143/68; PULSE 60; RESP 17; TEMP 36; O2SAT 99
--- NOTE | 2022-12-30 22:15 | EKG12_ITS ---
Test Reason : SOB Blood Pressure : / mmHG Vent. Rate : 060 BPM Atrial Rate : 220 BPM P-R Int : 000 ms QRS Dur : 122 ms QT Int : 458 ms P-R-T Axes : 000 -73 093 degrees QTc Int : 458 ms Ventricular-paced rhythm Abnormal ECG Confirmed by SARAHY BHAT, KYLEIGH ([id number]), continuity editor PABLITO TRUONG ([id number]) on 01/02/2023 10:57:04 A M Referred By: Confirmed By:JERMAINE WEATHERS MD
--- NOTE | 2022-12-30 22:16 | ED.VIS.DYS ---
HPI History of Present Illness Chief Complaint: Shortness of Breath Narrative Narrative: 77-year-old female presenting with dyspnea. She states been short of breath for a couple of days. Denies fevers or chills. She does have a mild cough. She states she wears 2.5 to 3 L of oxygen at baseline. She states has been getting breathing treatments at the senior living but has not had any steroids. 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 She is believe she has been therapeutic. He does not have any chest pain. Patient does have history of CHF, COPD. Patient also feels as if her urine is dribbling. She is not sure if her bladder is full but she has some suprapubic pressure. She does not have dysuria. [facility] Medical History Abscess of left leg Anemia Arthritis Atrial fibrillation AV block, complete BiPAP (biphasic positive airway pressure) dependence Cardiology follow-up encounter Chronic anticoagulation COPD (chronic obstructive pulmonary disease) Diabetes Difficulty swallowing DVT (deep venous thrombosis) Dyslipidemia Elevated troponin Essential hypertension Essential hypertension Former smoker Former tobacco use Heart failure with preserved ejection fraction Hematoma Hematoma of left lower leg History of atrial fibrillation History of CHF (congestive heart failure) History of DVT (deep vein thrombosis) History of echocardiogram History of edema History of irregular heartbeat History of pacemaker History of pulmonary embolism History of pulmonary embolus (PE) History of recurrent deep vein thrombosis (DVT) History of steroid therapy Injury of back Low iron Non-smoker On home oxygen therapy Post-menopausal Presence of permanent cardiac pacemaker (~10/12/20) Pulmonary embolism Pulmonary HTN Shortness of breath on exertion Skin necrosis Sleep apnea Tachycardia-bradycardia syndrome Uses wheelchair Venous insufficiency Walker as ambulation aid Wears glasses Wound abscess Home Medications citalopram 40 mg tablet 20 mg PO DAILY DEPRESSION 05/23/18 [History Last Taken 09/01/20 10:44] omeprazole 20 mg tablet,delayed release 20 mg PO DAILY GERD 01/17/19 [History Last Taken 09/01/20 10:44] sennosides 8.6 mg-docusate sodium 50 mg tablet 2 tab PO QHS CONSTIPATION 08/22/19 [History Last Taken 08/31/20 20:26] Lactobacillus acidophilus 1 cap PO DAILY [facility] 08/20/20 [History Last Taken 09/01/20 10:42] acetazolamide 250 mg tablet 250 mg PO BID EDEMA 08/20/20 [History Last Taken 09/01/20 08:00] albuterol sulfate 2.5 mg/3 mL (0.083 %) solution for nebulization 2.5 mg (3 mL) inhalation Q2H PRN PRN Shortness of Breath/Wheezing 09/05/20 [Rx Last Taken Unknown] docusate sodium 100 mg capsule 100 mg PO BID 09/05/20 [Rx Last Taken Unknown] bisacodyl 10 mg rectal suppository (Dulcolax (bisacodyl)) 10 mg MT DAILY PRN Constipation 07/14/21 [History Last Taken Unknown] ondansetron HCl 4 mg tablet 4 mg PO Q4H PRN Nausea 07/14/21 [History Last Taken Unknown] vit C 250 mg-vit E 90 mg-zinc 40 mg-copper 1 [id number]-rwfhxn capsule (PreserVision AREDS-2) 1 tab PO BID 07/14/21 [History Last Taken Unknown] buspirone 5 mg tablet 2.5 mg PO QHS 01/14/22 [History Last Taken Unknown] cholecalciferol (vitamin D3) 125 mcg (5,000 unit) tablet 125 mcg PO TH 01/14/22 [History Last Taken Unknown] furosemide 20 mg tablet 20 mg PO DAILY 01/14/22 [History Last Taken Unknown] magnesium hydroxide 400 mg/5 mL oral suspension (Milk of Magnesia) 30 ml PO DAILY PRN Constipation 01/14/22 [History Last Taken Unknown] potassium chloride 20 mEq tablet,extended release 20 meq PO DAILY 01/14/22 [History Last Taken Unknown] sodium phosphates 19 gram-7 gram/118 mL enema 118 ml MT DAILY PRN Constipation 01/14/22 [History Last Taken Unknown] acetaminophen 500 mg capsule 1,000 mg PO Q8H PRN Pain 04/14/22 [History Last Taken Unknown] albuterol sulfate 90 mcg/actuation aerosol inhaler (Ventolin HFA) 2 puff inhalation Q4H PRN PRN Wheezing ##1 04/14/22 [Rx Last Taken Unknown] guaifenesin 100 mg/5 mL oral liquid (Tussin) 200 mg PO Q6H PRN Cough 04/14/22 [History Last Taken Unknown] phenylephrine 0.25 %-hard fat 88.7 % rectal suppository (Hemorrhoidal (phenylephrine-hard fat)) 1 supp MT Q6H PRN PRN Hemorrhoids 04/14/22 [History Last Taken Unknown] warfarin 4 mg tablet 4 mg PO SUMOTUTHSA 07/26/22 [History Last Taken 08/14/22] doxycycline hyclate 100 mg capsule 100 mg PO BID 08/01/22 [History Last Taken Unknown] polyethylene glycol 3350 17 gram oral powder packet (Miralax) 17 g PO DAILY 08/11/22 [History Last Taken Unknown] warfarin 2.5 mg tablet 3 mg PO WEFR 08/11/22 [History Last Taken 08/14/22] ipratropium 0.5 mg-albuterol 3 mg (2.5 mg base)/3 mL nebulization soln 3 ml inhalation Q4H PRN Wheezing 08/20/22 [History Last Taken Unknown] lorazepam 0.5 mg tablet 0.5 mg PO QHS ANXIETY #30 tabs 08/20/22 [Rx Last Taken Unknown] tramadol 50 mg tablet 50 mg PO Q8H PRN Pain, Moderate #30 tabs 08/20/22 [Rx Last Taken Unknown] budesonide 1 mg/2 mL suspension for nebulization 1 mg (2 mL) inhalation BID #60 mL 10/21/22 [Rx Last Taken Unknown] Allergy/AdvReac Type Severity Reaction Status Date / Time amlodipine besylate AdvReac ANKLE AND Verified 12/30/22 22:07 [From [facility]] LEG EDEMA codeine AdvReac MENTAL Verified 12/30/22 22:07 STATUS CHANGE lisinopril AdvReac COUGH Verified 12/30/22 22:07 Family History Sister Heart disease Surgical History History of cholecystectomy History of total hysterectomy Hx of atrioventricular node ablation tailbone surgery Social History household members: none housing: senior living Smoking Status: Former smoker how long ago did patient quit smoking: Approxiomately 2003 alcohol intake: never substance use type: does not use caffeine: No ROS ROS ED Constitutional Constitutional ED: Denies chills, fever(s) or sweats Eyes Eyes: Denies blurry vision or change in vision ENT ENT ED: Denies ear pain or sore throat Cardiovascular Cardiovascular: Denies chest pain, palpitations or racing heartbeat Respiratory/Chest Respiratory/Chest: Reports cough and dyspnea; Denies sputum Gastrointestinal Gastrointestinal: Denies abdominal pain, constipation, diarrhea, nausea or vomiting Genitourinary Genitourinary ED: Reports other Details: Dribbling urine. Suprapubic pressure. ; Denies dysuria, hematuria or urinary frequency Musculoskeletal Musculoskeletal: Denies arthralgias, myalgias or neck pain Integumentary Denies abscess, Abrasions or rash Neurologic Neurologic: Denies headache(s), paresthesias or weakness Psychiatric Psychiatric: Denies anxiety, depression, suicidal ideation or suicidal thoughts Endocrine Endocrinology: Denies polydipsia or polyuria EXAM Physical Exam Const Vital Signs: 12/30/22 22:02 12/30/22 22:06 12/30/22 22:21 Temperature 96.8 F L 96.8 F L Temperature Source Temporal Temporal Pulse Rate 61 60 Respiratory Rate 16 17 Respiratory Effort Short of Breath Labored Respiratory Depth Normal Respiratory Pattern Normal Blood Pressure 143/68 H 143/68 H Blood Pressure Mean 93 93 Pulse Ox 99 99 Oxygen Delivery Method Non-Rebreather Non-Rebreather Nasal Cannula Oxygen Flow Rate (L/min) 8 8 3.5 12/30/22 22:27 12/30/22 23:44 12/31/22 00:06 Temperature 97 F L Temperature Source Temporal Pulse Rate 62 60 60 Respiratory Rate 20 H 16 19 H Respiratory Effort Respiratory Depth Respiratory Pattern Tachypnea Blood Pressure 137/78 H 136/68 H Blood Pressure Mean 97 90 Pulse Ox 98 98 Oxygen Delivery Method Oxygen Flow Rate (L/min) MDM MDM MDM Narrative Medical decision making narrative: Patient presenting with dyspnea with a history of COPD, CHF, PE. She is on her baseline oxygen at 3 L. She is being receiving breathing treatments at the senior living but has not had any steroids. She denies chest pain. Differential includes but is not limited to ACS, pneumonia, viral syndrome, muscle strain, costochondritis,CHF, COPD exacerbation, UTI, pyelonephritis, urinary retention. CBC to assess white blood cell count, hemoglobin, platelets, differential. BMP to assess renal function, electrolytes, glucose, anion gap. High-sensitivity troponin, EKG, chest x-ray will be obtained as part of cardiac work-up. Bladder scan will be obtained as well as urinalysis. Rapid COVID and flu will be obtained. CBC shows no leukocytosis with a white blood cell count of 9.6. Hemoglobin stable 10.4. Platelets 222. Renal function electrolytes unremarkable. High-sensitivity troponin 21. BNP slightly elevated 146. Urinalysis negative for infection. INR therapeutic at 3.1. I did treat the patient with breathing treatments as she is not moving much air. She does not appear to be wheezing. She is also given Solu-Medrol. I ambulated her after this and she dropped to 84% on her baseline oxygen. At this point I think she needs to be admitted for treatment. Patient minimal to plan. Impression: 1. Hypoxia 2. Dyspnea Lab Data Attestation: I reviewed the patient's lab results. Labs: Laboratory Results - last 24 hr 12/30/22 12/30/22 12/30/22 22:50 22:50 22:50 WBC 9.6 RBC 3.97 L Hgb 10.4 L Hct 35.9 L MCV 90.4 MCH 26.2 L MCHC 29.0 L RDW Std Deviation 53.6 H RDW Coeff of Laura 15.9 H Plt Count 222 MPV 12.0 Immature Gran % (Auto) 1.400 H Neut % (Auto) 65.4 Lymph % (Auto) 24.2 [place] % (Auto) 7.3 Eos % (Auto) 1.3 Baso % (Auto) 0.4 Absolute Neuts (auto) 6.3 Absolute Lymphs (auto) 2.31 Nucleated RBC % 0 PT INR Sodium 146 H Potassium 3.5 Chloride 107 Carbon Dioxide 35.0 H Anion Gap 4 L BUN 25 H Creatinine 0.83 Estim Creat Clear Calc 47.46 Est GFR (MDRD) Af Amer 85 Est GFR (MDRD) Non-Af 71 BUN/Creatinine Ratio 30.2 H Glucose 85 Calcium 9.3 Troponin I High Sens 21 B-Natriuretic Peptide 146.0 H Urine Color Urine Clarity Urine pH Ur Specific [place] Urine Protein Urine Glucose (UA) Urine Ketones Urine Occult Blood Urine Nitrite Urine Bilirubin Urine Urobilinogen Ur Leukocyte Esterase Urine RBC Urine WBC Ur Squamous Epith Cells Amorphous Sediment Urine Bacteria Urine Mucus 12/30/22 12/30/22 22:50 23:15 WBC RBC Hgb Hct MCV MCH MCHC RDW Std Deviation RDW Coeff of Laura Plt Count MPV Immature Gran % (Auto) Neut % (Auto) Lymph % (Auto) [place] % (Auto) Eos % (Auto) Baso % (Auto) Absolute Neuts (auto) Absolute Lymphs (auto) Nucleated RBC % PT 32.4 H INR 3.1 Sodium Potassium Chloride Carbon Dioxide Anion Gap BUN Creatinine Estim Creat Clear Calc Est GFR (MDRD) Af Amer Est GFR (MDRD) Non-Af BUN/Creatinine Ratio Glucose Calcium Troponin I High Sens B-Natriuretic Peptide Urine Color Yellow Urine Clarity Clear Urine pH 6.5 Ur Specific [place] 1.015 Urine Protein 15 H Urine Glucose (UA) Normal Urine Ketones Negative Urine Occult Blood Negative Urine Nitrite Negative Urine Bilirubin Negative Urine Urobilinogen 1 H Ur Leukocyte Esterase 25 H Urine RBC 0 SEEN Urine WBC 0 SEEN Ur Squamous Epith Cells 0 SEEN Amorphous Sediment 2+ Urine Bacteria 1+ Urine Mucus 0 SEEN Radiography Diagnostic Testing: Clinical Impression(s) from Imaging Studies Chest X-Ray 12/30/22 23:05 IMPRESSION: No significant interval change or acute process. Electronically Signed: Ghassan Diaz MD at 23:44 EDT , Discharge Plan Triage Chief Complaint: Shortness of Breath ED Provider: Lonnie Pina Dx/Rx/DC Orders Prescriptions: No Action buspirone 5 mg tablet 2.5 mg PO QHS sodium phosphates 19-7 gram/118 mL enema 118 ml MT DAILY PRN (Reason: Constipation) furosemide 20 mg tablet 20 mg PO DAILY potassium chloride 20 mEq tablet extended release 20 meq PO DAILY cholecalciferol (vitamin D3) 125 mcg (5,000 unit) tablet 125 mcg PO TH budesonide 1 mg/2 mL suspension for nebulization 1 mg inhalation BID Qty: 60 6RF citalopram 40 MG tablet 20 mg PO DAILY Label Comments: TAKE ONE TABLET BY MOUTH EVERY DAY hot flashes omeprazole 20 MG tablet,delayed release (DR/EC) 20 mg PO DAILY sennosides-docusate sodium 1 EACH tablet 2 tab PO QHS acetazolamide 250 MG tablet 250 mg PO BID Lactobacillus acidophilus 1 EACH capsule 1 cap PO DAILY albuterol sulfate 2.5 MG/3 ML solution for nebulization 2.5 mg INHALATION Q2H PRN PRN (Reason: Shortness of Breath/Wheezing) 0RF docusate sodium 100 MG capsule 100 mg PO BID 0RF ondansetron HCl 4 mg Tablet 4 mg PO Q4H PRN (Reason: Nausea) bisacodyl [Dulcolax (bisacodyl)] 10 mg Suppository 10 mg MT DAILY PRN (Reason: Constipation) PreserVision AREDS-2 250-90-40-1 mg Capsule 1 tab PO BID magnesium hydroxide [Milk of Magnesia] 400 mg/5 mL suspension 30 ml PO DAILY PRN (Reason: Constipation) guaifenesin [Tussin] 100 mg/5 mL Liquid 200 mg PO Q6H PRN (Reason: Cough) acetaminophen 500 mg Capsule 1,000 mg PO Q8H PRN (Reason: Pain) Hemorrhoidal (phenyleph-fat) 0.25-88.7 % Suppository 1 supp MT Q6H PRN PRN (Reason: Hemorrhoids) albuterol sulfate [Ventolin HFA] 90 mcg/actuation HFA aerosol inhaler 2 puff inhalation Q4H PRN PRN (Reason: Wheezing) Qty: 1 0RF warfarin 4 mg tablet 4 mg PO SUMOTUTHSA doxycycline hyclate 100 mg Capsule 100 mg PO BID polyethylene glycol 3350 [Miralax] 17 gram Powder In Packet 17 g PO DAILY warfarin 2.5 mg tablet 3 mg PO WEFR ipratropium-albuterol 0.5 mg-3 mg(2.5 mg base)/3 mL Solution For Nebulization 3 ml INHALATION Q4H PRN (Reason: Wheezing) tramadol 50 mg Tablet 50 mg PO Q8H MDD 150mg PRN (Reason: Pain, Moderate) Qty: 30 0RF lorazepam 0.5 mg tablet 0.5 mg PO QHS Qty: 30 0RF Primary Care Provider: Tor Lucia Referrals: Tor Lucia MD [Primary Care Provider] -
[2022-12-30 22:21] VITALS: O2SAT 99
[2022-12-30] MEDS: Ipratropium/Albuterol Sulfate 3 ML AMPUL.NEB INHALATION (22:26)
[2022-12-30] MEDS: Albuterol 2.5 MG/3 ML VIAL.NEB. INHALATION (22:26)
[2022-12-30 22:27] VITALS: PULSE 62; RESP 20
[2022-12-30 23:03] LABS: Absolute Lymphocyte Count 2.31 X10^3/uL (0.83-4.51); Absolute Neutrophil Count 6.3 X10^3/uL (2.0-7.7); Basophil# 0.04 X10^3/uL; Basophil% 0.4 % (0-1); Eosinophil# 0.12 X10^3/uL; Eosinophils% 1.3 % (0-5); Hematocrit 35.9 % (37-47); Hemoglobin 10.4 g/dL (12.0-15.0); Lymphocyte # 2.31 X10^3/ul (0.83-4.51); Lymphocyte % 24.2 % (19-41); Mean Corpuscular Hgb 26.2 pg (27.0-32.0); Mean Corpuscular Volume 90.4 fL (81-99); Monocyte% 7.3 % (0-10); NRBC Flagged by Analyzer 0 % (0-5); Neutrophil # 6.26 X10^3/uL (2.7-7.7); Neutrophil % 65.4 % (47-70); Platelet Count 222 K/mm3 (150-450); RBC Distribution Width CV 15.9 % (11.6-14.6); RBC Distribution Width SD 53.6 fl (35.1-43.9); Red Blood Count 3.97 M/mm3 (4.2-5.4); White Blood Count 9.6 K/mm3 (4.4-11.0)
[2022-12-30 23:05] LABS: International Normalized Ratio 3.1; Prothrombin Time (Protime)PT. 32.4 SECONDS (11.7-14.9)
--- NOTE | 2022-12-30 23:05 | RAD_ITS ---
EXAM: XR CHEST, 1 VIEW CLINICAL INDICATION: dyspnea TECHNIQUE: Frontal view of the chest. COMPARISON: Previous chest radiograph of 09/25/2022 and 07/08/2022. FINDINGS: LUNGS AND PLEURAL SPACES: Stable minimal chronic parenchymal scarring in the right midlung. Stable discoid atelectasis or scarring at the left lung base. No new/acute pulmonary infiltrates. No pleural effusion or pneumothorax. HEART: Upper normal heart size with normal pulmonary vasculature. MEDIASTINUM: Stable mild elongation and calcification of the thoracic aorta. No mediastinal widening. BONES/JOINTS: Stable thoracic degenerative changes. SOFT TISSUES: Stable mild elevation of the left hemidiaphragm. TUBES, LINES AND DEVICES: Cardiac pacemaker remains in place. RAD/Chest 1 View (Portable) IMPRESSION: No significant interval change or acute process. Electronically Signed: Ghassan Diaz MD at 23:44 EDT ,
[2022-12-30 23:13] LABS: Anion Gap 4 (5-15); BUN 25 mg/dL (7-18); BUN/Creat Ratio 30.2 RATIO (10-20); Calcium,Total 9.3 mg/dL (8.5-10.1); Chloride 107 mmol/L (98-107); Creatinine, Serum 0.83 mg/dL (0.55-1.02); EST Glomerular Filtration Rate 71 mL/min (>60); Est Glom Filt Rate - Afr Amer 85 mL/min (>60); Estimated Creatinine Clearance 47.46 ml/min; Glucose 85 mg/dL (74-106); Potassium 3.5 mmol/L (3.5-5.1); Sodium Level 146 mmol/L (136-145); Troponin-I HS 21 pg/mL (3.0-54.0)
[2022-12-30 23:21] LABS: Color, Urine Yellow (Yellow); Glucose, Dipstick Normal (Normal); Ketone-Dipstick Negative (Negative); Leukocyte Esterase-Dipstick 25 /ul (Negative); Mucous, Urine 0 SEEN /hpf (<or=2+); Nitrite-Dipstick Negative (Negative); Occult Blood-Urine Negative /ul (Negative); Protein-Dipstick 15 mg/dl (Negative); Red Blood Cells-Urine 0 SEEN /hpf (0-5); Specific Gravity, Urine 1.015 (1.002-1.030); Squamous Epithelial Cells - UA 0 SEEN /hpf (5-10); Urine Bilirubin Dipstick Negative (Negative); Urine Clarity Clear (Clear); Urine Urobilinogen 1 mg/dl (Normal); Urine pH 6.5 (5.0 - 8.0); White Blood Cells 0 SEEN /hpf (0-5)
[2022-12-30] MEDS: MethylPREDNISolone 125 MG/2 ML Vial IV (23:43)
[2022-12-30 23:44] VITALS: BP 137/78; PULSE 60; RESP 16; TEMP 36.1; O2SAT 98
[2022-12-30 23:54] LABS: Amorphous Sediment 2+; Bacteria 1+ /hpf (None Seen)
[2022-12-31] VITALS (12 sets, daily range): BP systolic 133–161; BP diastolic 63–80; PULSE 59–74; RESP 18–22; TEMP 36.2–36.8; O2SAT 94–100; BMI 27.1
--- NOTE | 2022-12-31 01:53 | ED.RN ---
BECAME VERY SHORT OF BREATH WHILE WALKING, UNABLE TO SPEAK WHILE WALKING.
--- NOTE | 2022-12-31 07:18 | PCM.HP.STD ---
[facility] - General General Date of Admission: 12/31/22 Date of Service: 12/31/22 Chief Complaint: shortness of breath HPI Narrative BERTO SIMPSON, is a 77 F who presents with dyspnea. She is at senior living and asked to be brought in because she has been short of breath x 3 days with a hx of COPD from distant tobacco use 15 years in duration (several cigarettes per day). She had flares of COPD episodes in past but nothing in last 1-2 years. The patient does use breathing treatments at group home. She uses 2 L at baseline oxygen, and sometimes 3 liters if needed. She is also complaining of bladder fullness/pressure and thinks she may have a UTI. She is on coumadin for past hx of DVT EKG showed paced rhythm. She has no infection on UA. The patient was ambulated in ED with desaturation to 84% while on 2 liters oxygen therefore she was admitted. [facility] Medical History Abscess of left leg Anemia Arthritis Atrial fibrillation AV block, complete BiPAP (biphasic positive airway pressure) dependence Cardiology follow-up encounter Chronic anticoagulation COPD (chronic obstructive pulmonary disease) Diabetes Difficulty swallowing DVT (deep venous thrombosis) Dyslipidemia Elevated troponin Essential hypertension Essential hypertension Former smoker Former tobacco use Heart failure with preserved ejection fraction Hematoma Hematoma of left lower leg History of atrial fibrillation History of CHF (congestive heart failure) History of DVT (deep vein thrombosis) History of echocardiogram History of edema History of irregular heartbeat History of pacemaker History of pulmonary embolism History of pulmonary embolus (PE) History of recurrent deep vein thrombosis (DVT) History of steroid therapy Injury of back Low iron Non-smoker On home oxygen therapy Post-menopausal Presence of permanent cardiac pacemaker (~10/12/20) Pulmonary embolism Pulmonary HTN Shortness of breath on exertion Skin necrosis Sleep apnea Tachycardia-bradycardia syndrome Uses wheelchair Venous insufficiency Walker as ambulation aid Wears glasses Wound abscess Home Medications omeprazole 20 mg tablet,delayed release 20 mg PO DAILY GERD 01/17/19 [History Last Taken 09/01/20 10:44] sennosides 8.6 mg-docusate sodium 50 mg tablet 2 tab PO QHS CONSTIPATION 08/22/19 [History Last Taken 08/31/20 20:26] Lactobacillus acidophilus 1 cap PO DAILY [facility] 08/20/20 [History Last Taken 09/01/20 10:42] acetazolamide 250 mg tablet 250 mg PO BID EDEMA 08/20/20 [History Last Taken 09/01/20 08:00] albuterol sulfate 2.5 mg/3 mL (0.083 %) solution for nebulization 2.5 mg (3 mL) inhalation Q2H PRN PRN Shortness of Breath/Wheezing 09/05/20 [Rx Last Taken Unknown] docusate sodium 100 mg capsule 100 mg PO BID 09/05/20 [Rx Last Taken Unknown] bisacodyl 10 mg rectal suppository (Dulcolax (bisacodyl)) 10 mg IA DAILY PRN Constipation 07/14/21 [History Last Taken Unknown] ondansetron HCl 4 mg tablet 4 mg PO Q4H PRN Nausea 07/14/21 [History Last Taken Unknown] vit C 250 mg-vit E 90 mg-zinc 40 mg-copper 1 py-[id number] capsule (PreserVision AREDS-2) 1 tab PO BID 07/14/21 [History Last Taken Unknown] buspirone 5 mg tablet 2.5 mg PO QHS 01/14/22 [History Last Taken Unknown] furosemide 20 mg tablet 20 mg PO DAILY 01/14/22 [History Last Taken Unknown] magnesium hydroxide 400 mg/5 mL oral suspension (Milk of Magnesia) 30 ml PO DAILY PRN Constipation 01/14/22 [History Last Taken Unknown] potassium chloride 20 mEq tablet,extended release 20 meq PO DAILY 01/14/22 [History Last Taken Unknown] sodium phosphates 19 gram-7 gram/118 mL enema 118 ml IA DAILY PRN Constipation 01/14/22 [History Last Taken Unknown] acetaminophen 500 mg capsule 1,000 mg PO Q8H PRN Pain 04/14/22 [History Last Taken Unknown] albuterol sulfate 90 mcg/actuation aerosol inhaler (Ventolin HFA) 2 puff inhalation Q4H PRN PRN Wheezing ##1 04/14/22 [Rx Last Taken Unknown] warfarin 4 mg tablet 4 mg PO SUMOWEFRSA 07/26/22 [History Last Taken 08/14/22] polyethylene glycol 3350 17 gram oral powder packet (Miralax) 17 g PO DAILY 08/11/22 [History Last Taken Unknown] warfarin 2.5 mg tablet 3 mg PO TUTH 08/11/22 [History Last Taken 08/14/22] ipratropium 0.5 mg-albuterol 3 mg (2.5 mg base)/3 mL nebulization soln 3 ml inhalation Q4H PRN Wheezing 08/20/22 [History Last Taken Unknown] lorazepam 0.5 mg tablet 0.5 mg PO QHS ANXIETY #30 tabs 08/20/22 [Rx Last Taken Unknown] tramadol 50 mg tablet 50 mg PO Q8H PRN Pain, Moderate #30 tabs 08/20/22 [Rx Last Taken Unknown] budesonide 1 mg/2 mL suspension for nebulization 1 mg (2 mL) inhalation BID #60 mL 10/21/22 [Rx Last Taken Unknown] calcium carbonate 600 mg calcium (1,500 mg) tablet 600 mg PO DAILY 12/31/22 [History Last Taken Unknown] cholecalciferol (vitamin D3) 50 mcg (2,000 unit) tablet (Vitamin D3) 50 mcg PO DAILY 12/31/22 [History Last Taken Unknown] citalopram 20 mg tablet 20 mg PO DAILY 12/31/22 [History Last Taken Unknown] cyanocobalamin (vitamin B-12) 500 mcg tablet 500 mcg PO DAILY 12/31/22 [History Last Taken Unknown] dextromethorphan HBr 10 mg/5 mL oral liquid 10 mg PO Q6H PRN Cough 12/31/22 [History Last Taken Unknown] ipratropium 0.5 mg-albuterol 3 mg (2.5 mg base)/3 mL nebulization soln 3 ml inhalation TID 12/31/22 [History Last Taken Unknown] menthol 4 % topical gel (Biofreeze (menthol)) 1 applic topical Q2H PRN PRN Pain 12/31/22 [History Last Taken Unknown] phenylephrine-shark liver oil-mineral oil-petrolatum rectal ointment (Hemorrhoidal ointment) 1 applic IA Q6H 12/31/22 [History Last Taken Unknown] prednisone 10 mg tablet 10 mg PO DAILY 12/31/22 [History Last Taken Unknown] Allergy/AdvReac Type Severity Reaction Status Date / Time amlodipine besylate AdvReac ANKLE AND Verified 12/30/22 22:07 [From [facility]] LEG EDEMA codeine AdvReac MENTAL Verified 12/30/22 22:07 STATUS CHANGE lisinopril AdvReac COUGH Verified 12/30/22 22:07 Family History Sister Heart disease Surgical History History of cholecystectomy History of total hysterectomy Hx of atrioventricular node ablation tailbone surgery Social History household members: none housing: group home Smoking Status: Former smoker how long ago did patient quit smoking: Approxiomately 2003 alcohol intake: never substance use type: does not use caffeine: No ROS ROS Narrative pertinent positives in HPI Vital Signs Vital Signs Vital Signs: 12/30/22 22:02 12/30/22 22:06 12/30/22 22:21 Temperature 96.8 F L 96.8 F L Temperature Source Temporal Temporal Pulse Rate 61 60 Respiratory Rate 16 17 Respiratory Effort Short of Breath Labored Respiratory Depth Normal Respiratory Pattern Normal Blood Pressure 143/68 H 143/68 H Blood Pressure Mean 93 93 Blood Pressure Source Blood Pressure Position Blood Pressure Location Pulse Ox 99 99 Oxygen Delivery Method Non-Rebreather Non-Rebreather Nasal Cannula Oxygen Flow Rate (L/min) 8 8 3.5 12/30/22 22:27 12/30/22 23:44 12/31/22 00:06 Temperature 97 F L Temperature Source Temporal Pulse Rate 62 60 60 Respiratory Rate 20 H 16 19 H Respiratory Effort Respiratory Depth Respiratory Pattern Tachypnea Blood Pressure 137/78 H 136/68 H Blood Pressure Mean 97 90 Blood Pressure Source Blood Pressure Position Blood Pressure Location Pulse Ox 98 98 Oxygen Delivery Method Oxygen Flow Rate (L/min) 12/31/22 02:16 12/31/22 02:45 12/31/22 02:45 Temperature 97.1 F L 98.1 F Temperature Source Temporal Oral Pulse Rate 59 L 60 Respiratory Rate 20 H 19 H Respiratory Effort Short of Breath Respiratory Depth Shallow Respiratory Pattern Normal Blood Pressure 161/74 H 156/80 H Blood Pressure Mean 103 105 Blood Pressure Source Monitor Blood Pressure Position Semi-Fowlers Blood Pressure Location Right Arm Pulse Ox 94 100 Oxygen Delivery Method Nasal Cannula Nasal Cannula Nasal Cannula Oxygen Flow Rate (L/min) 3 3 12/31/22 05:25 12/31/22 05:59 Temperature Temperature Source Pulse Rate 70 Respiratory Rate 20 H Respiratory Effort Respiratory Depth Respiratory Pattern Normal Blood Pressure Blood Pressure Mean Blood Pressure Source Blood Pressure Position Blood Pressure Location Pulse Ox 100 Oxygen Delivery Method Nasal Cannula Oxygen Flow Rate (L/min) 3 Weight Weight: 173 lb Body Mass Index (BMI) 27.1 Physical Exam Const alert HEENT normocephalic and head/scalp atraumatic Resp no retractions Resp Narrative: prolonged mild expiratory effort. no wheezes. the patient is calm. Cardio regular rate and regular rhythm GI normal to inspection, nondistended, normoactive bowel sounds and soft to palpation Extremity normal to inspection Psych affect normal Results Medical Records Data Attestation: I reviewed the patient's medical records Lab / Micro Data Attestation: I reviewed the patient's lab results. Result Diagrams: 12/30/22 22:50 12/30/22 22:50 Labs: Laboratory Results - last 24 hr 12/30/22 22:50: WBC 9.6, RBC 3.97 L, Hgb 10.4 L, Hct 35.9 L, MCV 90.4, MCH 26.2 L, MCHC 29.0 L, RDW Std Deviation 53.6 H, RDW Coeff of Laura 15.9 H, Plt Count 222, MPV 12.0, Immature Gran % (Auto) 1.400 H, Neut % (Auto) 65.4, Lymph % (Auto) 24.2, [place] % (Auto) 7.3, Eos % (Auto) 1.3, Baso % (Auto) 0.4, Absolute Neuts (auto) 6.3, Absolute Lymphs (auto) 2.31, Nucleated RBC % 0 12/30/22 22:50: Sodium 146 H, Potassium 3.5, Chloride 107, Carbon Dioxide 35.0 H, Anion Gap 4 L, BUN 25 H, Creatinine 0.83, Estim Creat Clear Calc 47.46, Est GFR (MDRD) Af Amer 85, Est GFR (MDRD) Non-Af 71, BUN/Creatinine Ratio 30.2 H, Glucose 85, Calcium 9.3, Troponin I High Sens 21 12/30/22 22:50: B-Natriuretic Peptide 146.0 H 12/30/22 22:50: PT 32.4 H, INR 3.1 12/30/22 23:15: Urine Color Yellow, Urine Clarity Clear, Urine pH 6.5, Ur Specific [place] 1.015, Urine Protein 15 H, Urine Glucose (UA) Normal, Urine Ketones Negative, Urine Occult Blood Negative, Urine Nitrite Negative, Urine Bilirubin Negative, Urine Urobilinogen 1 H, Ur Leukocyte Esterase 25 H, Urine RBC 0 SEEN, Urine WBC 0 SEEN, Ur Squamous Epith Cells 0 SEEN, Amorphous Sediment 2+, Urine Bacteria 1+, Urine Mucus 0 SEEN Micro: Microbiology 12/30/22 22:45 Nasal Secretion SARS-CoV-2 & FLU Antigen (Rapid) - Final Radiology Impression Chest X-Ray 12/30/22 23:05 IMPRESSION: No significant interval change or acute process. Electronically Signed: Ghassan Diaz MD at 23:44 EDT , Assessment & Plan Assessment/Plan (1) Chronic diastolic CHF (congestive heart failure): (2) History of cardioversion: (3) Chronic hypoxemic respiratory failure: (4) Essential hypertension: (5) COPD (chronic obstructive pulmonary disease): (6) History of recurrent deep vein thrombosis (DVT): PLAN: Plan Acute exacerbation of COPD with asthma Chest x-ray was visualized and independently interpreted and I agree with radiology interpretation of no active disease. Scheduled DuoNeb Albuterol as needed Prednisone 40 mg x 5 days With patient's requiring BiPAP initially at the emergency department azithromycin ordered.? Oxygen supplementation continued.? Titrate as necessary Monitor BMP and CBC History of atrial fibrillation/PE INR is therapeutic.? Coumadin continued.? Trend PT/INR Heart failure with preserved ejection fraction Cardiogram on 09/04/2019 showed estimated ejection fraction of 65%.? Diastolic function could not be assessed due to arrhythmia. BNP on presentation was 186.3.? Patient does not look edematous.? Chest x-ray is clear.? From heart failure standpoint patient appears stable. Lasix continued. Hypertension Blood pressure is slightly above goal 156/80 Lasix continued, 20 daily home med Trend blood pressure and adjust blood pressure medications. DNR CCA Continue Warfarin. INR recently 3.1 Charges/Coding Visit Charges Inpatient E&M: 01140 Init Hosp L3
--- NOTE | 2022-12-31 08:08 | PN.HOSP_ITS ---
Reason for Visit Reason for Visit: Diagnoses Essential (primary) hypertension (12/31/22) Chronic diastolic (congestive) heart failure (12/31/22) Chronic obstructive pulmonary disease, unspecified (12/31/22) Chronic respiratory failure with hypoxia (12/31/22) Personal history of other venous thrombosis and embolism (12/31/22) Other specified postprocedural states (12/31/22) Subjective Subjective Follow-up for COPD exacerbation Objective Data Objective Data Vital Signs: Vital Signs Temp Pulse Resp BP Pulse Ox O2 Del Method O2 Flow Rate 98.1 F 70 20 H 156/80 H 100 Nasal Cannula 3 12/31/22 02:45 12/31/22 05:25 12/31/22 05:25 12/31/22 02:45 12/31/22 05:59 12/31/22 05:59 12/31/22 05:59 Oxygen Flow Rate (L/min) 3 Oxygen Delivery Method Nasal Cannula Weight: 173 lb Body Mass Index (BMI) 27.1 Intake & Output: Intake and Output for Last 24 Hours 12/29/22 12/30/22 12/31/22 23:59 23:59 23:59 Intake Total 100 / 100 Output Total 0 / 0 Balance 100 / 100 Lab / Micro Data Result Diagrams: 12/30/22 22:50 12/30/22 22:50 Labs: Laboratory Results - last 24 hr 12/30/22 22:50: WBC 9.6, RBC 3.97 L, Hgb 10.4 L, Hct 35.9 L, MCV 90.4, MCH 26.2 L, MCHC 29.0 L, RDW Std Deviation 53.6 H, RDW Coeff of Laura 15.9 H, Plt Count 222, MPV 12.0, Immature Gran % (Auto) 1.400 H, Neut % (Auto) 65.4, Lymph % (Auto) 24.2, [place] % (Auto) 7.3, Eos % (Auto) 1.3, Baso % (Auto) 0.4, Absolute Neuts (auto) 6.3, Absolute Lymphs (auto) 2.31, Nucleated RBC % 0 12/30/22 22:50: Sodium 146 H, Potassium 3.5, Chloride 107, Carbon Dioxide 35.0 H , Anion Gap 4 L, BUN 25 H, Creatinine 0.83, Estim Creat Clear Calc 47.46, Est GFR (MDRD) Af Amer 85, Est GFR (MDRD) Non-Af 71, BUN/Creatinine Ratio 30.2 H, Glucose 85, Calcium 9.3, Troponin I High Sens 21 12/30/22 22:50: B-Natriuretic Peptide 146.0 H 12/30/22 22:50: PT 32.4 H, INR 3.1 12/30/22 23:15: Urine Color Yellow, Urine Clarity Clear, Urine pH 6.5, Ur Specific [place] 1.015, Urine Protein 15 H, Urine Glucose (UA) Normal, Urine Ketones Negative, Urine Occult Blood Negative, Urine Nitrite Negative, Urine Bilirubin Negative, Urine Urobilinogen 1 H, Ur Leukocyte Esterase 25 H, Urine RBC 0 SEEN, Urine WBC 0 SEEN, Ur Squamous Epith Cells 0 SEEN, Amorphous Sediment 2+, Urine Bacteria 1+, Urine Mucus 0 SEEN Micro: Microbiology 12/30/22 22:45 Nasal Secretion SARS-CoV-2 & FLU Antigen (Rapid) - Final Radiography Diagnostic Testing: Radiology Impression Chest X-Ray 12/30/22 23:05 IMPRESSION: No significant interval change or acute process. Electronically Signed: Ghassan Diaz MD at 23:44 EDT , Physical Exam Narrative Patient is still short of breath. She stated she did not get DuoNeb last night as it was ordered every 4 hourly while awake. Mild wheezing. Quit smoking in 2003. Physical exam General: Alert, Oriented x3, Cooperative HEENT: Atraumatic, PERRLA, EOMI, Normocephalic Oral: No Gingival or Mucosal Lesions/ Ulcerations Neck: Supple, No JVD, Negative Carotid Bruits Lungs: Air entry diminished in bilateral lung bases. Bilateral fine expiratory rhonchi. Dyspnea on mild exertion. Cardiovascular: Regular rate, Regular Rhythm, Normal S1, Normal S2, No murmurs Abdomen: Bowel Sounds Present, Soft, Non Tender, Non-Distended : No renal angle tenderness. No suprapubic tenderness. Extremities: No edema, Capillary Refill Less than 3 Seconds Skin: No rashes, No breakdown Musculoskeletal: No Tenderness to Palpation of Joints or Extremities Neurological: Cranial nerves II-XII grossly intact, DTR 2+/4 and Symmetrical, Neuro grossly intact Psych/Mental Status: Normal Affect, Appropriate. Assessment & Plan Assessment/Plan (1) Chronic diastolic CHF (congestive heart failure): (2) History of cardioversion: (3) Chronic hypoxemic respiratory failure: (4) Essential hypertension: (5) COPD (chronic obstructive pulmonary disease): (6) History of recurrent deep vein thrombosis (DVT): PLAN: Plan Acute exacerbation of COPD with asthma Chest x-ray was visualized and independently interpreted and I agree with radiology interpretation of no active disease. Scheduled DuoNeb Albuterol as needed Solu-Medrol 40 mg every 8 hourly. Incentive spirometry, Pep and Mucinex DM. On azithromycin. BiPAP as needed during nap and night. Oxygen therapy History of atrial fibrillation/PE INR is therapeutic.?? INR 2.9. Hold warfarin today and monitor PT/INR daily to adjust the dose of warfarin Heart failure with preserved ejection fraction Cardiogram on 09/04/2019 showed estimated ejection fraction of 65%.? Diastolic function could not be assessed due to arrhythmia. BNP on presentation was 186.3.? Patient does not look edematous.? Chest x-ray is clear.? From heart failure standpoint patient appears stable. Lasix continued. Hypertension Blood pressure is slightly above goal 156/80 Lasix continued, 20 daily home med Trend blood pressure and adjust blood pressure medications. DNR CCA Charges/Coding Visit Charges Inpatient E&M: 55901 Subs Hosp L2
[2022-12-31] MEDS: Polyethylene Glycol 3350 17 GM PACKET PO (08:57)
[2022-12-31] MEDS: Cyanocobalamin 500 MCG Tablet PO (08:57)
[2022-12-31] MEDS: Furosemide 20 MG Tablet PO (08:57)
[2022-12-31] MEDS: Docusate Sodium 100 MG Capsule PO ×2 (08:57→21:07)
[2022-12-31] MEDS: Calcium (Elemental) 500 MG Tablet PO (08:58)
[2022-12-31] MEDS: Pantoprazole Sodium 20 MG Tablet PO (08:58)
[2022-12-31] MEDS: Potassium Chloride Oral Tablet 20 MEQ PO (08:58)
[2022-12-31] MEDS: predniSONE 20 MG Tablet 40 MG PO (09:01)
[2022-12-31] MEDS: Citalopram 20 MG Tablet PO (09:04)
[2022-12-31] MEDS: Cholecalciferol (VIT D3) 25 MCG TABLET (1,000 UNITS) 50 MCG PO (09:04)
[2022-12-31] MEDS: AcetaZOLAMIDE 250 MG Tablet PO ×2 (10:02→21:07)
[2022-12-31] MEDS: Albuterol 2.5 MG/3 ML VIAL.NEB. INHALATION (10:06)
[2022-12-31] MEDS: Ceftriaxone 1 GM/50 ML BAG IV (13:36)
--- NOTE | 2022-12-31 13:49 | CASEMGMT ---
Addendum entered by Lizabeth Ramírez 12/31/22 14:22: Social Work [facility], received response that pt can return when ready, has a bed hold. Green sheet w/transport forms placed on chart. TRINI Gomez Original Note: Social Work Pt is here from [place]. SW met w/pt, confirmed the plan is for her to return to [place] when ready. Pt states has been there 4 years, a list of SNF not needed. SW will send updates via [facility]. TRINI Gomez
[2022-12-31] MEDS: Methylprednisolone Sod Succ 40 MG/ML VIAL IV ×2 (14:06→21:08)
[2022-12-31] MEDS: Acetaminophen 500 MG Tablet 1000 MG PO (14:07)
[2022-12-31] MEDS: Ipratropium/Albuterol Sulfate 3 ML AMPUL.NEB INHALATION ×3 (15:09→23:14)
[2022-12-31 15:33] LABS: International Normalized Ratio 2.9; Prothrombin Time (Protime)PT. 30.8 SECONDS (11.7-14.9)
[2022-12-31] MEDS: LORazepam 0.5 MG Tablet PO (21:06)
[2022-12-31] MEDS: busPIRone 5 MG Tablet 2.5 MG PO (21:07)
[2022-12-31] MEDS: guaiFENesin/D-Methorphan TAB.SR.12H 2 TABLET PO (21:07)
[2022-12-31] MEDS: Senna/Docusate Sodium 1 Tablet PO (21:11)
[2022-12-31] MEDS: 0.9% Saline Lock 10 ML Syringe IV (21:11)
[2023-01-01] VITALS (14 sets, daily range): BP systolic 128–155; BP diastolic 63–76; PULSE 59–66; RESP 16–23; TEMP 36.7–36.8; O2SAT 94–100
--- NOTE | 2023-01-01 01:51 | CPS ---
Pt has sleep lab machine
[2023-01-01] MEDS: Methylprednisolone Sod Succ 40 MG/ML VIAL IV ×3 (05:22→21:40)
[2023-01-01] MEDS: 0.9% Saline Lock 10 ML Syringe IV ×2 (05:22→21:40)
[2023-01-01 06:18] LABS: Absolute Lymphocyte Count 0.92 X10^3/uL (0.83-4.51); Absolute Neutrophil Count 11.6 X10^3/uL (2.0-7.7); Basophil# 0.01 X10^3/uL; Basophil% 0.1 % (0-1); Hematocrit 35.5 % (37-47); Hemoglobin 10.3 g/dL (12.0-15.0); Lymphocyte # 0.92 X10^3/ul (0.83-4.51); Mean Corpuscular Hgb 26.1 pg (27.0-32.0); Mean Corpuscular Volume 90.1 fL (81-99); Monocyte# 0.55 X10^3/uL; Monocyte% 4.2 % (0-10); NRBC Flagged by Analyzer 0 % (0-5); Neutrophil # 11.56 X10^3/uL (2.7-7.7); Neutrophil % 87.9 % (47-70); Platelet Count 233 K/mm3 (150-450); RBC Distribution Width CV 16.1 % (11.6-14.6); RBC Distribution Width SD 53.4 fl (35.1-43.9); Red Blood Count 3.94 M/mm3 (4.2-5.4); White Blood Count 13.1 K/mm3 (4.4-11.0)
[2023-01-01 06:23] LABS: International Normalized Ratio 3.1; Prothrombin Time (Protime)PT. 32.3 SECONDS (11.7-14.9)
[2023-01-01 06:39] LABS: Anion Gap 5 (5-15); BUN 28 mg/dL (7-18); BUN/Creat Ratio 45.6 RATIO (10-20); Calcium,Total 8.9 mg/dL (8.5-10.1); Chloride 110 mmol/L (98-107); Creatinine, Serum 0.61 mg/dL (0.55-1.02); EST Glomerular Filtration Rate 100 mL/min (>60); Est Glom Filt Rate - Afr Amer 121 mL/min (>60); Estimated Creatinine Clearance 44.36 ml/min; Glucose 126 mg/dL (74-106); Potassium 3.6 mmol/L (3.5-5.1); Sodium Level 143 mmol/L (136-145)
[2023-01-01] MEDS: Ipratropium/Albuterol Sulfate 3 ML AMPUL.NEB INHALATION ×5 (07:53→22:23)
[2023-01-01] MEDS: Furosemide 20 MG Tablet PO (09:28)
[2023-01-01] MEDS: Docusate Sodium 100 MG Capsule PO ×2 (09:28→21:40)
[2023-01-01] MEDS: AcetaZOLAMIDE 250 MG Tablet PO ×2 (09:28→21:40)
[2023-01-01] MEDS: Calcium (Elemental) 500 MG Tablet PO (09:28)
[2023-01-01] MEDS: Pantoprazole Sodium 20 MG Tablet PO (09:28)
[2023-01-01] MEDS: Cholecalciferol (VIT D3) 25 MCG TABLET (1,000 UNITS) 50 MCG PO (09:28)
[2023-01-01] MEDS: Citalopram 20 MG Tablet PO (09:28)
[2023-01-01] MEDS: Cyanocobalamin 500 MCG Tablet PO (09:28)
[2023-01-01] MEDS: guaiFENesin/D-Methorphan TAB.SR.12H 2 TABLET PO ×2 (09:29→21:40)
[2023-01-01] MEDS: Potassium Chloride Oral Tablet 20 MEQ PO (09:30)
[2023-01-01] MEDS: Acetaminophen 500 MG Tablet 1000 MG PO (12:30)
[2023-01-01] MEDS: Ondansetron ODT 4 MG Tablet PO (12:30)
--- NOTE | 2023-01-01 12:49 | PCM.PN.HOSP ---
Reason for Visit Reason for Visit: Diagnoses Essential (primary) hypertension (12/31/22) Chronic diastolic (congestive) heart failure (12/31/22) Chronic obstructive pulmonary disease, unspecified (12/31/22) Chronic respiratory failure with hypoxia (12/31/22) Personal history of other venous thrombosis and embolism (12/31/22) Other specified postprocedural states (12/31/22) Subjective Subjective Follow-up for COPD exacerbation and lower urinary tract symptoms Patient is still short of breath. Objective Data Objective Data Vital Signs: Vital Signs Temp Pulse Resp BP Pulse Ox O2 Del Method O2 Flow Rate 98.1 F 64 18 136/66 H 100 Nasal Cannula 2 01/01/23 09:19 01/01/23 11:55 01/01/23 11:55 01/01/23 09:19 01/01/23 09:19 01/01/23 09:19 01/01/23 09:19 Oxygen Flow Rate (L/min) 2 Oxygen Delivery Method Nasal Cannula Weight: 173 lb Body Mass Index (BMI) 27.1 Intake & Output: Intake and Output for Last 24 Hours 12/30/22 12/31/22 01/01/23 23:59 23:59 23:59 Intake Total 1160 / 1400 640 / 640 Output Total 0 / 0 Balance 1160 / 1400 640 / 640 Lab / Micro Data Result Diagrams: 01/01/23 05:57 01/01/23 05:57 Labs: Laboratory Results - last 24 hr 12/31/22 15:00: PT 30.8 H, INR 2.9 01/01/23 05:57: WBC 13.1 H, RBC 3.94 L, Hgb 10.3 L, Hct 35.5 L, MCV 90.1, MCH 26.1 L, MCHC 29.0 L, RDW Std Deviation 53.4 H, RDW Coeff of Laura 16.1 H, Plt Count 233, MPV 12.0, Immature Gran % (Auto) 0.800, Neut % (Auto) 87.9 H, Lymph % (Auto) 7.0 L, [place] % (Auto) 4.2, Eos % (Auto) 0.0, Baso % (Auto) 0.1, Absolute Neuts (auto) 11.6 H, Absolute Lymphs (auto) 0.92, Nucleated RBC % 0 01/01/23 05:57: PT 32.3 H, INR 3.1 01/01/23 05:57: Sodium 143, Potassium 3.6, Chloride 110 H, Carbon Dioxide 28.0, Anion Gap 5, BUN 28 H, Creatinine 0.61, Estim Creat Clear Calc 44.36, Est GFR (MDRD) Af Amer 121, Est GFR (MDRD) Non-Af 100, BUN/Creatinine Ratio 45.6 H, Glucose 126 H, Calcium 8.9 Micro: Microbiology 12/31/22 13:45 Urine, Catheterized Urine Culture - Preliminary Culture exhibits no growth. 12/31/22 13:45 Urine Catheter - Catheter Legionella Antigen - Final 12/31/22 13:45 Urine Catheter - Catheter Streptococcus pneumoniae Antigen (M - Final 12/30/22 22:45 Nasal Secretion SARS-CoV-2 & FLU Antigen (Rapid) - Final Physical Exam Narrative Patient is still short of breath. Dyspnea on minimal to mild exertion even going to bathroom. On DuoNeb. Mild wheezing. Quit smoking in 2003. She had bladder suspension surgery about 10 to 15 years ago probably might have cystocele. She has chronic increased frequency and urgency and now burning micturition. Dysuria is better on antibiotic. Physical exam General: Alert, Oriented x3, Cooperative HEENT: Atraumatic, PERRLA, EOMI, Normocephalic Oral: No Gingival or Mucosal Lesions/ Ulcerations Neck: Supple, No JVD, Negative Carotid Bruits Lungs: Air entry diminished in bilateral lung bases. Bilateral fine expiratory rhonchi. Dyspnea on mild exertion. Cardiovascular: Regular rate, Regular Rhythm, Normal S1, Normal S2, No murmurs Abdomen: Bowel Sounds Present, Soft, Non Tender, Non-Distended : Dysuria improving. Possible cystocele. No renal angle tenderness. No suprapubic tenderness. Extremities: No edema, Capillary Refill Less than 3 Seconds Skin: No rashes, No breakdown Musculoskeletal: No Tenderness to Palpation of Joints or Extremities Neurological: Cranial nerves II-XII grossly intact, DTR 2+/4 and Symmetrical, Neuro grossly intact Psych/Mental Status: Normal Affect, Appropriate. Assessment & Plan Assessment/Plan (1) Chronic diastolic CHF (congestive heart failure): (2) History of cardioversion: (3) Chronic hypoxemic respiratory failure: (4) Essential hypertension: (5) COPD (chronic obstructive pulmonary disease): (6) History of recurrent deep vein thrombosis (DVT): PLAN: Plan ShortnessAcute exacerbation of COPD with asthma Chest x-ray was visualized and independently interpreted and I agree with radiology interpretation of no active disease. Scheduled DuoNeb Albuterol as needed Solu-Medrol 40 mg every 8 hourly. Incentive spirometry, Pep and Mucinex DM. On azithromycin. BiPAP as needed during nap and night. Oxygen therapy 01/01: Of breath slightly better compared to yesterday but is still dyspnea on mild exertion. Continue treatment. Encouraged incentive spirometry and Pep. Chronic increased frequency and urgency probably due to recurrent bladder incontinence/cystocele after bladder suspension surgery many years ago: Patient has new burning micturition. UA not impressive with LE 25, nitrite 0. WBC 0, bacteria 1+. Preliminary urine culture shows no growth but continue antibiotic as patient dysuria is better. If final urine culture is negative we will discontinue antibiotic. History of atrial fibrillation/PE INR is therapeutic.?? INR 2.9. Hold warfarin today and monitor PT/INR daily to adjust the dose of warfarin 01/01: INR 3.1. Continue holding warfarin. Heart failure with preserved ejection fraction Cardiogram on 09/04/2019 showed estimated ejection fraction of 65%.? Diastolic function could not be assessed due to arrhythmia. BNP on presentation was 186.3.? Patient does not look edematous.? Chest x-ray is clear.? From heart failure standpoint patient appears stable. Lasix continued. Hypertension Blood pressure is slightly above goal 156/80 Lasix continued, 20 daily home med Trend blood pressure and adjust blood pressure medications. DNR CCA Charges/Coding Visit Charges Inpatient E&M: 50876 [facility] Hosp L3
[2023-01-01] MEDS: Ceftriaxone 1 GM/50 ML BAG IV (14:21)
[2023-01-01] MEDS: Bisacodyl 10 MG Suppository RC (17:54)
[2023-01-01] MEDS: LORazepam 0.5 MG Tablet PO (21:40)
[2023-01-01] MEDS: Senna/Docusate Sodium 1 Tablet PO (21:40)
[2023-01-01] MEDS: busPIRone 5 MG Tablet 2.5 MG PO (21:41)
[2023-01-02] VITALS (7 sets, daily range): BP systolic 141–152; BP diastolic 66–73; PULSE 59–69; RESP 16–22; TEMP 36.5–36.8; O2SAT 97–100
[2023-01-02] MEDS: Methylprednisolone Sod Succ 40 MG/ML VIAL IV ×2 (05:11→13:40)
[2023-01-02] MEDS: 0.9% Saline Lock 10 ML Syringe IV ×2 (05:11→13:41)
[2023-01-02 06:12] LABS: Absolute Lymphocyte Count 0.86 X10^3/uL (0.83-4.51); Absolute Neutrophil Count 11.8 X10^3/uL (2.0-7.7); Basophil# 0.01 X10^3/uL; Basophil% 0.1 % (0-1); Hematocrit 35.1 % (37-47); Hemoglobin 9.9 g/dL (12.0-15.0); Lymphocyte # 0.86 X10^3/ul (0.83-4.51); Lymphocyte % 6.5 % (19-41); Mean Corp Hgb Conc 28.2 g/dL (32-36); Mean Corpuscular Hgb 26.1 pg (27.0-32.0); Mean Corpuscular Volume 92.4 fL (81-99); Mean Platelet Vol. 11.8 fl (6.2-12.0); Monocyte# 0.43 X10^3/uL; Monocyte% 3.3 % (0-10); NRBC Flagged by Analyzer 0 % (0-5); Neutrophil # 11.76 X10^3/uL (2.7-7.7); Neutrophil % 89.6 % (47-70); Platelet Count 203 K/mm3 (150-450); RBC Distribution Width CV 16.5 % (11.6-14.6); RBC Distribution Width SD 56.4 fl (35.1-43.9); White Blood Count 13.1 K/mm3 (4.4-11.0)
[2023-01-02 06:19] LABS: International Normalized Ratio 2.1; Prothrombin Time (Protime)PT. 23.3 SECONDS (11.7-14.9)
[2023-01-02 06:34] LABS: Anion Gap 4 (5-15); BUN 31 mg/dL (7-18); BUN/Creat Ratio 43.5 RATIO (10-20); Calcium,Total 8.5 mg/dL (8.5-10.1); Chloride 111 mmol/L (98-107); Creatinine, Serum 0.71 mg/dL (0.55-1.02); EST Glomerular Filtration Rate 84 mL/min (>60); Est Glom Filt Rate - Afr Amer 102 mL/min (>60); Estimated Creatinine Clearance 44.36 ml/min; Glucose 131 mg/dL (74-106); Potassium 3.8 mmol/L (3.5-5.1); Sodium Level 143 mmol/L (136-145)
[2023-01-02] MEDS: Ipratropium/Albuterol Sulfate 3 ML AMPUL.NEB INHALATION ×3 (07:10→14:49)
--- NOTE | 2023-01-02 08:58 | CASEMGMT ---
Discharge Planning Updates sent to [place] via [facility]. Patient will not need a pre-cert to return. Cecily Snyder. Discharge Planning Asst.
[2023-01-02] MEDS: Polyethylene Glycol 3350 17 GM PACKET PO (09:11)
[2023-01-02] MEDS: Ceftriaxone 1 GM/50 ML BAG IV (09:12)
[2023-01-02] MEDS: Cyanocobalamin 500 MCG Tablet PO (09:12)
[2023-01-02] MEDS: guaiFENesin/D-Methorphan TAB.SR.12H 2 TABLET PO (09:12)
[2023-01-02] MEDS: Furosemide 20 MG Tablet PO (09:13)
[2023-01-02] MEDS: AcetaZOLAMIDE 250 MG Tablet PO (09:13)
[2023-01-02] MEDS: Pantoprazole Sodium 20 MG Tablet PO (09:13)
[2023-01-02] MEDS: Calcium (Elemental) 500 MG Tablet PO (09:13)
[2023-01-02] MEDS: Docusate Sodium 100 MG Capsule PO (09:13)
[2023-01-02] MEDS: Cholecalciferol (VIT D3) 25 MCG TABLET (1,000 UNITS) 50 MCG PO (09:13)
[2023-01-02] MEDS: Potassium Chloride Oral Tablet 20 MEQ PO (09:13)
[2023-01-02] MEDS: Citalopram 20 MG Tablet PO (09:13)
--- NOTE | 2023-01-02 12:28 | TREXTCAR_ITS ---
Diet Diet Order/Speech Therapy: 01/01/23 13:10 Diet: Cardiac - Heart Healthy Food consistency:: Regular Liquid Consistency:: Regular/Thin Routine Orders/Code Status Routine Lab Work: CBC and BMP Code Status: DNRCC-A Therapies Physical Therapy: Eval and Treat Occupational Therapy: Eval and Treat Problem/Diagnosis (1) Chronic diastolic CHF (congestive heart failure): Status: Chronic Code(s): I50.32 - Chronic diastolic (congestive) heart failure (2) History of cardioversion: Status: Chronic Code(s): Z98.890 - Other specified postprocedural states Comment: January of 2018.....HR not controlled with exertion while in AF on Beta donna and cardizem. Converted to NSR with cardioversion (3) Chronic hypoxemic respiratory failure: Status: Chronic Code(s): J96.11 - Chronic respiratory failure with hypoxia (4) Essential hypertension: Status: Acute Code(s): I10 - Essential (primary) hypertension (5) COPD (chronic obstructive pulmonary disease): Status: Chronic Code(s): J44.9 - Chronic obstructive pulmonary disease, unspecified (6) History of recurrent deep vein thrombosis (DVT): Status: Chronic Code(s): Z86.718 - Personal history of other venous thrombosis and embolism Allergies/Procedures Done in Hospital Allergies amlodipine besylate [From [facility]] Adverse Reaction (Verified 12/30/22 22:07) ANKLE AND LEG EDEMA RESOLVED OFF MED-PER PCP PAPERWORK codeine Adverse Reaction (Verified 12/30/22 22:07) MENTAL STATUS CHANGE lisinopril Adverse Reaction (Verified 12/30/22 22:07) COUGH Procedures: None Type of Care/Length of Stay Estimated LOS: More Than 30 Days Type of Care Needed: Intermediate Rehab Potential: Fair Prognosis: Fair Additional Orders/Day of Discharge Day of Discharge: 01/02/23 Dietary and Speech Recommendations Dietitian Recommendations/Changes: Will change diet to cardiac and offer ONS as needed if PO declines at meals. Discharge Plan Admission Admit Date/Time: 12/31/22 16:42 Attending Provider: Stanley Mckeon Primary Care Provider: Tor Lucia Consulting Providers: Jason Monteiro ; Ketan Brown Discharge Orders/Prescriptions Prescriptions: New prednisone 10 mg tablet 10 mg PO DAILY Qty: 1 0RF Rx Instructions: 4 tablets daily for 4 days then 3 tablets daily for 4 days then 2 tablets daily for 4 days then 1 tablet daily for 4 days then half tablet daily for 4 da ys Continued buspirone 5 mg tablet 2.5 mg PO QHS sodium phosphates 19-7 gram/118 mL enema 118 ml [place] DAILY PRN (Reason: Constipation) furosemide 20 mg tablet 20 mg PO DAILY potassium chloride 20 mEq tablet extended release 20 meq PO DAILY budesonide 1 mg/2 mL suspension for nebulization 1 mg inhalation BID Qty: 60 6RF omeprazole 20 MG tablet,delayed release (DR/EC) 20 mg PO DAILY sennosides-docusate sodium 1 EACH tablet 2 tab PO QHS acetazolamide 250 MG tablet 250 mg PO BID Lactobacillus acidophilus 1 EACH capsule 1 cap PO DAILY albuterol sulfate 2.5 MG/3 ML solution for nebulization 2.5 mg INHALATION Q2H PRN PRN (Reason: Shortness of Breath/Wheezing) 0RF docusate sodium 100 MG capsule 100 mg PO BID 0RF ondansetron HCl 4 mg Tablet 4 mg PO Q4H PRN (Reason: Nausea) bisacodyl [Dulcolax (bisacodyl)] 10 mg Suppository 10 mg AL DAILY PRN (Reason: Constipation) PreserVision AREDS-2 250-90-40-1 mg Capsule 1 tab PO BID magnesium hydroxide [Milk of Magnesia] 400 mg/5 mL suspension 30 ml PO DAILY PRN (Reason: Constipation) acetaminophen 500 mg Capsule 1,000 mg PO Q8H PRN (Reason: Pain) albuterol sulfate [Ventolin HFA] 90 mcg/actuation HFA aerosol inhaler 2 puff inhalation Q4H PRN PRN (Reason: Wheezing) Qty: 1 0RF warfarin 4 mg tablet 4 mg PO SUMOWEFRSA polyethylene glycol 3350 [Miralax] 17 gram Powder In Packet 17 g PO DAILY warfarin 2.5 mg tablet 3 mg PO TUTH ipratropium-albuterol 0.5 mg-3 mg(2.5 mg base)/3 mL Solution For Nebulization 3 ml INHALATION Q4H PRN (Reason: Wheezing) tramadol 50 mg Tablet 50 mg PO Q8H MDD 150mg PRN (Reason: Pain, Moderate) Qty: 30 0RF lorazepam 0.5 mg tablet 0.5 mg PO QHS Qty: 30 0RF prednisone 10 mg Tablet 10 mg PO DAILY ipratropium-albuterol 0.5 mg-3 mg(2.5 mg base)/3 mL Solution For Nebulization 3 ml INHALATION TID dextromethorphan HBr 10 mg/5 mL Liquid 10 mg PO Q6H PRN (Reason: Cough) calcium carbonate 600 mg calcium (1,500 mg) Tablet 600 mg PO DAILY citalopram 20 mg tablet 20 mg PO DAILY cyanocobalamin (vitamin B-12) 500 mcg Tablet 500 mcg PO DAILY Hemorrhoidal Ointment 1 applic AL Q6H cholecalciferol (vitamin D3) [Vitamin D3] 50 mcg (2,000 unit) Tablet 50 mcg PO DAILY Biofreeze (menthol) 4 % Gel 1 applic TOPICAL Q2H PRN PRN (Reason: Pain) Referrals / Follow Up: Tor Lucia MD [Primary Care Provider] - Disposition Disposition (needs filled in before D/C Order can be placed): [facility]
--- NOTE | 2023-01-02 12:58 | CASEMGMT ---
Patient is ready for discharge back to [facility]. Patient's daughter will not be able to transport patient so transport will need to be arranged. Plan: d/c back to [facility] under skilled level of care. Physicians will transport via cot. Regla VIZCARRA
--- NOTE | 2023-01-02 13:42 | PHA.DC.MR ---
Pharmacy Service has performed discharge medication reconciliation for this patient. The patient's discharge medication list was reviewed for discrepancies and discrepancies were resolved. Home Medications omeprazole 20 mg tablet,delayed release 20 mg PO DAILY GERD 01/17/19 sennosides 8.6 mg-docusate sodium 50 mg tablet 2 tab PO QHS CONSTIPATION 08/22/19 Lactobacillus acidophilus 1 cap PO DAILY [facility]MM[facility] 08/20/20 acetazolamide 250 mg tablet 250 mg PO BID EDEMA 08/20/20 albuterol sulfate 2.5 mg/3 mL (0.083 %) solution for nebulization 2.5 mg (3 mL) inhalation Q2H PRN PRN Shortness of Breath/Wheezing 09/05/20 docusate sodium 100 mg capsule 100 mg PO BID 09/05/20 bisacodyl 10 mg rectal suppository (Dulcolax (bisacodyl)) 10 mg [place] DAILY PRN Constipation 07/14/21 ondansetron HCl 4 mg tablet 4 mg PO Q4H PRN Nausea 07/14/21 vit C 250 mg-vit E 90 mg-zinc 40 mg-copper 1 [id number]-tcktbr capsule (PreserVision AREDS-2) 1 tab PO BID 07/14/21 buspirone 5 mg tablet 2.5 mg PO QHS 01/14/22 furosemide 20 mg tablet 20 mg PO DAILY 01/14/22 magnesium hydroxide 400 mg/5 mL oral suspension (Milk of Magnesia) 30 ml PO DAILY PRN Constipation 01/14/22 potassium chloride 20 mEq tablet,extended release 20 meq PO DAILY 01/14/22 sodium phosphates 19 gram-7 gram/118 mL enema 118 ml WA DAILY PRN Constipation 01/14/22 acetaminophen 500 mg capsule 1,000 mg PO Q8H PRN Pain 04/14/22 albuterol sulfate 90 mcg/actuation aerosol inhaler (Ventolin HFA) 2 puff inhalation Q4H PRN PRN Wheezing ##1 04/14/22 warfarin 4 mg tablet 4 mg PO SUMOWEFRSA 07/26/22 polyethylene glycol 3350 17 gram oral powder packet (Miralax) 17 g PO DAILY 08/11/22 warfarin 2.5 mg tablet 3 mg PO TUTH 08/11/22 ipratropium 0.5 mg-albuterol 3 mg (2.5 mg base)/3 mL nebulization soln 3 ml inhalation Q4H PRN Wheezing 08/20/22 lorazepam 0.5 mg tablet 0.5 mg PO QHS ANXIETY #30 tabs 08/20/22 tramadol 50 mg tablet 50 mg PO Q8H PRN Pain, Moderate #30 tabs 08/20/22 budesonide 1 mg/2 mL suspension for nebulization 1 mg (2 mL) inhalation BID #60 mL 10/21/22 calcium carbonate 600 mg calcium (1,500 mg) tablet 600 mg PO DAILY 12/31/22 cholecalciferol (vitamin D3) 50 mcg (2,000 unit) tablet (Vitamin D3) 50 mcg PO DAILY 12/31/22 citalopram 20 mg tablet 20 mg PO DAILY 12/31/22 cyanocobalamin (vitamin B-12) 500 mcg tablet 500 mcg PO DAILY 12/31/22 dextromethorphan HBr 10 mg/5 mL oral liquid 10 mg PO Q6H PRN Cough 12/31/22 ipratropium 0.5 mg-albuterol 3 mg (2.5 mg base)/3 mL nebulization soln 3 ml inhalation TID 12/31/22 menthol 4 % topical gel (Biofreeze (menthol)) 1 applic topical Q2H PRN PRN Pain 12/31/22 phenylephrine-shark liver oil-mineral oil-petrolatum rectal ointment (Hemorrhoidal ointment) 1 applic WA Q6H 12/31/22 prednisone 10 mg tablet 10 mg PO DAILY 12/31/22 prednisone 10 mg tablet 10 mg PO DAILY #1 TAB 01/02/23
--- NOTE | 2023-01-02 14:42 | CASEMGMT ---
Discharge Planning Discharge orders, signed med list, Covid results, and pickup time sent to [place] via [facility]. Patient will be transferred by Physicians by cot at 3:30. SW, nursing and patient and her daughter, Irene, were all notified. Cecily Snyder, Discharge Planning Asst.
--- NOTE | 2023-01-02 15:45 | NURSING ---
Report called to nurse Mejia at [facility].
--- NOTE | 2023-01-02 17:04 | PCM.DC.SUM ---
Providers Date of Admission: 12/31/22 Primary Care Physician: Dr. Tor Lucia MD Reason For Visit: COPD EXACERBATION Diagnosis Discharge Diagnosis (1) Chronic diastolic CHF (congestive heart failure): Status: Chronic Code(s): I50.32 - Chronic diastolic (congestive) heart failure (2) History of cardioversion: Status: Chronic Code(s): Z98.890 - Other specified postprocedural states (3) Chronic hypoxemic respiratory failure: Status: Chronic Code(s): J96.11 - Chronic respiratory failure with hypoxia (4) Essential hypertension: Status: Acute Code(s): I10 - Essential (primary) hypertension (5) COPD (chronic obstructive pulmonary disease): Status: Chronic Code(s): J44.9 - Chronic obstructive pulmonary disease, unspecified (6) History of recurrent deep vein thrombosis (DVT): Status: Chronic Code(s): Z86.718 - Personal history of other venous thrombosis and embolism Medications at Discharge Home Medications omeprazole 20 mg tablet,delayed release 20 mg PO DAILY GERD 01/17/19 sennosides 8.6 mg-docusate sodium 50 mg tablet 2 tab PO QHS CONSTIPATION 08/22/19 Lactobacillus acidophilus 1 cap PO DAILY [facility] 08/20/20 acetazolamide 250 mg tablet 250 mg PO BID EDEMA 08/20/20 albuterol sulfate 2.5 mg/3 mL (0.083 %) solution for nebulization 2.5 mg (3 mL) inhalation Q2H PRN PRN Shortness of Breath/Wheezing 09/05/20 docusate sodium 100 mg capsule 100 mg PO BID 09/05/20 bisacodyl 10 mg rectal suppository (Dulcolax (bisacodyl)) 10 mg [place] DAILY PRN Constipation 07/14/21 ondansetron HCl 4 mg tablet 4 mg PO Q4H PRN Nausea 07/14/21 vit C 250 mg-vit E 90 mg-zinc 40 mg-copper 1 we-hpebnk-nksiwe capsule (PreserVision AREDS-2) 1 tab PO BID 07/14/21 buspirone 5 mg tablet 2.5 mg PO QHS 01/14/22 furosemide 20 mg tablet 20 mg PO DAILY 01/14/22 magnesium hydroxide 400 mg/5 mL oral suspension (Milk of Magnesia) 30 ml PO DAILY PRN Constipation 01/14/22 potassium chloride 20 mEq tablet,extended release 20 meq PO DAILY 01/14/22 sodium phosphates 19 gram-7 gram/118 mL enema 118 ml [place] DAILY PRN Constipation 01/14/22 acetaminophen 500 mg capsule 1,000 mg PO Q8H PRN Pain 04/14/22 albuterol sulfate 90 mcg/actuation aerosol inhaler (Ventolin HFA) 2 puff inhalation Q4H PRN PRN Wheezing ##1 04/14/22 warfarin 4 mg tablet 4 mg PO SUMOWEFRSA 07/26/22 polyethylene glycol 3350 17 gram oral powder packet (Miralax) 17 g PO DAILY 08/11/22 warfarin 2.5 mg tablet 3 mg PO TUTH 08/11/22 ipratropium 0.5 mg-albuterol 3 mg (2.5 mg base)/3 mL nebulization soln 3 ml inhalation Q4H PRN Wheezing 08/20/22 lorazepam 0.5 mg tablet 0.5 mg PO QHS ANXIETY #30 tabs 08/20/22 tramadol 50 mg tablet 50 mg PO Q8H PRN Pain, Moderate #30 tabs 08/20/22 budesonide 1 mg/2 mL suspension for nebulization 1 mg (2 mL) inhalation BID #60 mL 10/21/22 calcium carbonate 600 mg calcium (1,500 mg) tablet 600 mg PO DAILY 12/31/22 cholecalciferol (vitamin D3) 50 mcg (2,000 unit) tablet (Vitamin D3) 50 mcg PO DAILY 12/31/22 citalopram 20 mg tablet 20 mg PO DAILY 12/31/22 cyanocobalamin (vitamin B-12) 500 mcg tablet 500 mcg PO DAILY 12/31/22 dextromethorphan HBr 10 mg/5 mL oral liquid 10 mg PO Q6H PRN Cough 12/31/22 ipratropium 0.5 mg-albuterol 3 mg (2.5 mg base)/3 mL nebulization soln 3 ml inhalation TID 12/31/22 menthol 4 % topical gel (Biofreeze (menthol)) 1 applic topical Q2H PRN PRN Pain 12/31/22 phenylephrine-shark liver oil-mineral oil-petrolatum rectal ointment (Hemorrhoidal ointment) 1 applic [place] Q6H 06/17/23 prednisone 10 mg tablet 10 mg PO DAILY 12/31/22 prednisone 10 mg tablet 10 mg PO DAILY #1 TAB 01/02/23 Hospital Course Operations None Procedures None Summary of Care Provided Minutes Spent on Discharge: 33 Hospital Course: Per HPI: BERTO SIMPSON, is a 77 F who presents with dyspnea. [facility] is [facility] and asked to be brought in because she has been short of breath x 3 days with a hx of COPD from distant tobacco use 15 years in duration (several cigarettes per day). She had flares of COPD episodes in past but nothing in last 1-2 years. ? The patient does use breathing treatments at detention. She uses 2 L at baseline oxygen, and sometimes 3 liters if needed. She is also complaining of bladder fullness/pressure and thinks she may have a UTI. She is on coumadin for past hx of DVT EKG showed paced rhythm. She has no infection on UA. The patient was ambulated in ED with desaturation to 84% while on 2 liters oxygen therefore she was admitted. Hospital Course: 1. Acute COPD exacerbation?77-year-old female presents from detention with increased shortness of breath. She had been having shortness of breath for about 3 days prior to admission. In the ER she was ambulated and desaturated down to 84%. She is on a baseline of 2 to 3 L at the detention. She improved and her respiratory status and was maintained on her home baseline oxygen. She is feeling much better today and I discussed with her the plan for possible discharge and she expressed understanding of the risk benefits going back to the detention and would like to go today. We will plan for prednisone taper of 40 mg daily for 4 days then 30 mg daily for 4 days then 20 mg daily for 4 days and then she can go back to her baseline of 10 mg daily as well as resuming all of her home breathing treatments. Of note UA was unremarkable, she was given 3 days of Rocephin pending resolution of urine cultures which showed no growth. 2. A-fib, pulmonary embolism, chronic diastolic CHF, hypertension, anxiety, depression, GERD are all chronic medical conditions which complicate her care. Her home medications were continued where appropriate Physical Exam Narrative General: Alert, Oriented x3, Cooperative, No apparent distress HEENT: Atraumatic, PERRLA, EOMI, Normocephalic Oral: Moist Mucosa Neck: Supple, No JVD Lungs: Diminished, Normal air movement, No rhonchi, No wheeze, No rales Cardiovascular: Regular rate, Regular Rhythm, Normal S1, Normal S2, No murmurs Abdomen: Soft, Non Tender, Non-Distended, No Hepato-splenomegaly Extremities: No edema, Capillary Refill Less than 3 Seconds Skin: No rashes, No breakdown Musculoskeletal: No Tenderness to Palpation of Joints or Extremities Neurological: Cranial nerves II-XII grossly intact, Motor Exam 5/5 strength throughout, Sensory exam intact to light touch and pain Psych/Mental Status: Normal Affect, Appropriate Weight / BMI Weight Weight: 173 lb 1.006 oz Body Mass Index (BMI) 27.1 ABG / Lab / Microbiology Data Result Diagrams: 01/02/23 06:02 01/02/23 06:02 Laboratory: Laboratory Results - last 24 hr 01/02/23 06:02: WBC 13.1 H, RBC 3.80 L, Hgb 9.9 L, Hct 35.1 L, MCV 92.4, MCH 26.1 L, MCHC 28.2 L, RDW Std Deviation 56.4 H, RDW Coeff of Laura 16.5 H, Plt Count 203, MPV 11.8, Immature Gran % (Auto) 0.500, Neut % (Auto) 89.6 H, Lymph % (Auto) 6.5 L, [place] % (Auto) 3.3, Eos % (Auto) 0.0, Baso % (Auto) 0.1, Absolute Neuts (auto) 11.8 H, Absolute Lymphs (auto) 0.86, Nucleated RBC % 0 01/02/23 06:02: PT 23.3 H, INR 2.1 01/02/23 06:02: Sodium 143, Potassium 3.8, Chloride 111 H, Carbon Dioxide 28.0, Anion Gap 4 L, BUN 31 H, Creatinine 0.71, Estim Creat Clear Calc 44.36, Est GFR (MDRD) Af Amer 102, Est GFR (MDRD) Non-Af 84, BUN/Creatinine Ratio 43.5 H, Glucose 131 H, Calcium 8.5 Microbiology: Microbiology 01/02/23 13:30 Nasal Secretion SARS-CoV-2 Antigen (Rapid) - Final 12/31/22 13:45 Urine, Catheterized Urine Culture - Final Culture exhibits no growth. 12/31/22 13:45 Urine Catheter - Catheter Legionella Antigen - Final 12/31/22 13:45 Urine Catheter - Catheter Streptococcus pneumoniae Antigen (M - Final 12/30/22 22:45 Nasal Secretion SARS-CoV-2 & FLU Antigen (Rapid) - Final Meaningful Use Info Meaningful Use Diagnoses (Choose all that apply): None applicable Discharge Plan Admission Admit Date/Time: 12/31/22 16:42 Attending Provider: Stanley Mckeon Primary Care Provider: Tor Lucia Consulting Providers: Jason Monteiro ; Ketan Brown Discharge Orders/Prescriptions Prescriptions: New prednisone 10 mg tablet 10 mg PO DAILY Qty: 1 0RF Rx Instructions: 4 tablets daily for 4 days then 3 tablets daily for 4 days then 2 tablets daily for 4 days then 1 tablet daily for 4 days then half tablet daily for 4 days Continued buspirone 5 mg tablet 2.5 mg PO QHS sodium phosphates 19-7 gram/118 mL enema 118 ml [place] DAILY PRN (Reason: Constipation) furosemide 20 mg tablet 20 mg PO DAILY potassium chloride 20 mEq tablet extended release 20 meq PO DAILY budesonide 1 mg/2 mL suspension for nebulization 1 mg inhalation BID Qty: 60 6RF omeprazole 20 MG tablet,delayed release (DR/EC) 20 mg PO DAILY sennosides-docusate sodium 1 EACH tablet 2 tab PO QHS acetazolamide 250 MG tablet 250 mg PO BID Lactobacillus acidophilus 1 EACH capsule 1 cap PO DAILY albuterol sulfate 2.5 MG/3 ML solution for nebulization 2.5 mg INHALATION Q2H PRN PRN (Reason: Shortness of Breath/Wheezing) 0RF docusate sodium 100 MG capsule 100 mg PO BID 0RF ondansetron HCl 4 mg Tablet 4 mg PO Q4H PRN (Reason: Nausea) bisacodyl [Dulcolax (bisacodyl)] 10 mg Suppository 10 mg [place] DAILY PRN (Reason: Constipation) PreserVision AREDS-2 250-90-40-1 mg Capsule 1 tab PO BID magnesium hydroxide [Milk of Magnesia] 400 mg/5 mL suspension 30 ml PO DAILY PRN (Reason: Constipation) acetaminophen 500 mg Capsule 1,000 mg PO Q8H PRN (Reason: Pain) albuterol sulfate [Ventolin HFA] 90 mcg/actuation HFA aerosol inhaler 2 puff inhalation Q4H PRN PRN (Reason: Wheezing) Qty: 1 0RF warfarin 4 mg tablet 4 mg PO SUMOWEFRSA polyethylene glycol 3350 [Miralax] 17 gram Powder In Packet 17 g PO DAILY warfarin 2.5 mg tablet 3 mg PO TUTH ipratropium-albuterol 0.5 mg-3 mg(2.5 mg base)/3 mL Solution For Nebulization 3 ml INHALATION Q4H PRN (Reason: Wheezing) tramadol 50 mg Tablet 50 mg PO Q8H MDD 150mg PRN (Reason: Pain, Moderate) Qty: 30 0RF lorazepam 0.5 mg tablet 0.5 mg PO QHS Qty: 30 0RF prednisone 10 mg Tablet 10 mg PO DAILY ipratropium-albuterol 0.5 mg-3 mg(2.5 mg base)/3 mL Solution For Nebulization 3 ml INHALATION TID dextromethorphan HBr 10 mg/5 mL Liquid 10 mg PO Q6H PRN (Reason: Cough) calcium carbonate 600 mg calcium (1,500 mg) Tablet 600 mg PO DAILY citalopram 20 mg tablet 20 mg PO DAILY cyanocobalamin (vitamin B-12) 500 mcg Tablet 500 mcg PO DAILY Hemorrhoidal Ointment 1 applic [place] Q6H cholecalciferol (vitamin D3) [Vitamin D3] 50 mcg (2,000 unit) Tablet 50 mcg PO DAILY Biofreeze (menthol) 4 % Gel 1 applic TOPICAL Q2H PRN PRN (Reason: Pain) Referrals / Follow Up: Tor Lucia MD [Primary Care Provider] - Disposition Disposition (needs filled in before D/C Order can be placed): [facility] Charges/Coding Visit Charges Inpatient E&M: 35442 Disch Hosp >30min
== END 2023-01-02 15:25 | disposition skilled nursing facility (03) | DRG 191 ==
LOC: ED 12-31 01:57 → PCU 12-31 02:14
PROVIDERS: Internal Medicine; Admitting Provider Hospitalist; Emergency Provider Student in an Organized Health Care Education/Training Program; PCP Family Medicine; Visit Provider Family Medicine
DX: J44.1 Chronic obstructive pulmonary disease with (acute) exacerbation (principal); I50.32 Chronic diastolic (congestive) heart failure; J96.11 Chronic respiratory failure with hypoxia; I11.0 Hypertensive heart disease with heart failure; I48.91 Unspecified atrial fibrillation; E78.5 Hyperlipidemia, unspecified; F41.9 Anxiety disorder, unspecified; K21.9 Gastro-esophageal reflux disease without esophagitis; F32.A Depression, unspecified; R30.0 Dysuria; R35.0 Frequency of micturition; R39.15 Urgency of urination; Z66 Do not resuscitate; Z95.0 Presence of cardiac pacemaker; Z99.81 Dependence on supplemental oxygen; Z79.01 Long term (current) use of anticoagulants; Z79.899 Other long term (current) drug therapy; Z86.711 Personal history of pulmonary embolism; Z86.718 Personal history of other venous thrombosis and embolism; Z87.891 Personal history of nicotine dependence
CPT/HCPCS: 36415; 71045; 80048; 81001; 83880; 84484; 85025; 85610; 87086; 87426; 87428; 87449; 93005; 94002; 94003; 94640; 99285; J7040; A4216

== ENCOUNTER → 2023-01-19 | Outpatient (CLI) | payer MEDICARE, MEDICAID, SELFPAY ==
--- NOTE | 2023-01-19 10:08 | ECHOCS_ITS ---
Reason For Study: PHTN Procedure This was a 2D Doppler, Color Flow transthoracic echocardiogram. Technically difficult study due to uncooperative patient. Exam performed in department. Left Ventricle Normal LV size. The estimated ejection fraction is 60 %. Unable to assess diastolic dysfunction. No regional wall motion abnormalities noted. Right Ventricle Normal RV size. Normal systolic function. Atria The left atrium is mildly enlarged. The right atrium is moderately enlarged. No doppler evidence for ASD. Mitral Valve There is moderate mitral annular calcification. There is no mitral valve stenosis. No mitral valve insufficiency. Tricuspid Valve There is no tricuspid stenosis. Mild tricuspid valve insufficiency. Pulmonary artery systolic pressure is 50 mmHg. Aortic Valve Trisinus/trileaflet aortic valve. Moderate diffuse aortic valve thickening. Mild aortic stenosis. No aortic valve insufficiency. Pulmonic Valve There is no pulmonic valvular stenosis. No pulmonic valve insufficiency. Great Vessels Normal aortic root. Pericardium/Pleural No pericardial effusion. MMode/2D Measurements & Calculations LVIDd: 3.7 cm IVSd: 1.3 cm LVOT diam: 1.9 cm LVIDs: 2.6 cm LVPWd: 1.2 cm LVOT area: 2.8 cm2 FS: 30.5 % Ao root diam: 3.6 cm LAV(MOD-bp): 68.4 ml LVAd ap4: 21.4 cm2 LAV(MOD-bp) Indexed: 38.8 ml/m2 LVLd ap4: 7.1 cm LAV(MOD-sp2): 75.9 ml EDV(MOD-sp4): 55.7 ml LAV(MOD-sp4): 56.2 ml EDV(sp4-el): 55.0 ml LVAs ap4: 9.8 cm2 LVLs ap4: 5.6 cm ESV(MOD-sp4): 16.3 ml ESV(sp4-el): 14.9 ml EF(MOD-sp4): 70.7 % EF(sp4-el): 72.8 % SV(MOD-sp4): 39.4 ml SV(sp4-el): 40.0 ml LA A4 area: 19.6 cm2 LA dimension(2D): 4.2 cm RA A4 area: 21.3 cm2 TAPSE: 2.1 cm Time Measurements MV dec time: 0.27 sec Doppler Measurements & Calculations MV E max nik: 99.0 cm/sec Lat Peak E' Nik: 11.8 cm/sec Med Peak E' Nik: 8.5 cm/sec MV A max nik: 31.0 cm/sec E/E' lat: 8.4 E/E' med: 11.7 MV E/A: 3.2 MV V2 max: 113.5 cm/sec Ao V2 max: 277.7 cm/sec MV max P.2 mmHg MV dec slope: 375.4 cm/sec2 Ao max P.9 mmHg MV V2 mean: 58.0 cm/sec Ao V2 mean: 194.0 cm/sec MV mean P.6 mmHg Ao mean P.2 mmHg MV V2 VTI: 36.3 cm Ao V2 VTI: 58.8 cm AV (velocity ratio): 0.42 MVA(VTI): 1.9 cm2 CARLA(I,D): 1.2 cm2 CARLA(V,D): 1.2 cm2 LV V1 max: 117.1 cm/sec SV(LVOT): 69.8 ml PA V2 max: 123.7 cm/sec LV V1 max P.5 mmHg PA V2 mean: 78.5 cm/sec LV V1 mean P.3 mmHg LV V1 mean: 86.6 cm/sec LV V1 VTI: 24.9 cm ECHO/Echo Complete Interpretation Summary The estimated ejection fraction is 60 %. Unable to assess diastolic dysfunction. The left atrium is mildly enlarged. The right atrium is moderately enlarged. Mild aortic stenosis. Ordering Physician: Mani Mcnair Referring Physician: Mani Mcnair Performed By: Yoli Mills RCS
--- NOTE | 2023-01-19 10:45 | CPS ---
Pt refused to do plethysmography. Pt stated she will not allow the door to the box to be closed.
--- NOTE | 2023-01-20 12:01 | PFTCOMP ---
Complete pulmonary function testing report Patient: Rhoda Quinn Date of study January 19, 2023 Date of 1945 Indication: Chronic respiratory failure with hypercarbia, COPD, post procedure Referring physicians: Tor Lucia MD, Mani Mcnair MD Spirometry pre and postbronchodilator showed: 1. Severe airway obstruction. The forced vital capacity was 49% predicted, FEV1 32%, FEV1/FVC 48%. Review of the flow-volume loop showed cough within the first second of exhalation and persistent coughing during the expiratory limb of the flow volume loop, but did corroborate the obstructive morphology. The FVC and FEV1 may be underestimated due to suboptimal effort during the test. 2. No significant response to bronchodilator. 3. Forced vital capacity was moderately reduced. Differential includes suboptimal effort, thoracic abnormalities, parenchymal abnormalities, neuromuscular weakness, among others. 4. Investigative Reporter comments indicated spirometry was acceptable and reproducible. Lung volume studies by plethysmography were not done: 1. The patient was unable to do plethysmography for further evaluation of the decreased FVC due to claustrophobia. 2. Consider alternative testing with nitrogen washout technique lung volume studies. Diffusing capacity by single breath carbon monoxide technique showed: 1. Moderately decreased DLCO of 54% predicted, which normalized when adjusted for lung volumes. 2. DLCO/VA is likely inaccurate due to the suboptimal lung volume measurements. Austin Antonio MD [facility] Pulmonary Medicine [facility] January 20, 2023 12:19 PM
== END | disposition home or self-care (01) ==
LOC: CVS 10:06
PROVIDERS: PCP Family Medicine; Referring Provider Internal Medicine Critical Care Medicine; Visit Provider Internal Medicine Critical Care Medicine
DX: I27.20 Pulmonary hypertension, unspecified (principal); G47.33 Obstructive sleep apnea (adult) (pediatric); Z98.890 Other specified postprocedural states
CPT/HCPCS: 93306; 94060; 94729

== ENCOUNTER → 2023-01-24 | Outpatient (CLI) | payer MEDICARE, MEDICAID, SELFPAY ==
[2023-01-24 14:06] VITALS: PULSE 60; PULSE 62; PULSE 64; PULSE 67; O2SAT 91; O2SAT 92; O2SAT 93
--- NOTE | 2023-01-24 14:16 | CPS ---
Patient came in on 2L pulse dose, after 10 minutes off the oxygen the patient's lowest SpO2 was 91%, She walked a total 2 laps and never dropped below 91%.
--- NOTE | 2023-01-25 09:39 | PCM.PSN.6M ---
PSN 6 Minute Walk Test 6 Minute Walk Test 6 Minute Walk Test: 6 Minute Walk Test PSN:6-Minute Walk Test Start: 01/24/23 14:06 Freq: Status: Active Protocol: [id number].6MINW Document 01/24/23 14:06 (Rec: 01/24/23 14:13 JR [id number]) 6 Minute Walk Test Date Performed 01/24/23 Time Performed 13:15 Height 5 ft 7 in Weight: 165 lb Weight in Pounds 165.[address]: Mani Mcnair Assistive device used: None Pre-test Oxygen Delivery Method Room Air Pulse Ox 91 Pulse Rate (60-100) 60 Dyspnea Emily Scale (0-10) 3 Exertion Emily Scale (6-20) 6 1st minute Oxygen Delivery Method Room Air Pulse Ox 93 Pulse Rate (60-100) 64 2nd minute Oxygen Delivery Method Room Air Pulse Ox 91 Pulse Rate (60-100) 60 3rd minute Oxygen Delivery Method Room Air Pulse Ox 92 Pulse Rate (60-100) 60 4th minute Oxygen Delivery Method Room Air Pulse Ox 92 Pulse Rate (60-100) 67 5th minute Oxygen Delivery Method Room Air Pulse Ox 91 Pulse Rate (60-100) 62 6th minute Oxygen Delivery Method Room Air Pulse Ox 91 Pulse Rate (60-100) 60 Dyspnea Emily Scale (0-10) 4 Exertion Emily Scale (6-20) 12 Post-test Oxygen Delivery Method Room Air Pulse Ox 92 Pulse Rate (60-100) 60 Full Laps Walked 4 Partial Lap, Number of Tiles Walked 0 Total Distance Walked (ft) 236 Interpretation Interpretation: The patient ambulated 236 feet over the course of 6 minutes beginning on room air with use of a walker. Pretesting oxygen saturation was noted to be 91% on room air. With ambulation, the milla oxygen saturation was 91%. Although there was evidence of impaired walk distance, there was no significant exertional oxygen desaturation. Recommendations Recommendations: There is no indication for the use of supplemental oxygen at this time.
== END | disposition home or self-care (01) ==
LOC: PSN 13:08
PROVIDERS: PCP Family Medicine; Referring Provider Internal Medicine Critical Care Medicine; Visit Provider Internal Medicine Critical Care Medicine
DX: I27.20 Pulmonary hypertension, unspecified (principal); G47.33 Obstructive sleep apnea (adult) (pediatric)
CPT/HCPCS: 94618

== ENCOUNTER 2023-03-20 22:56 | Emergency (ER) | payer MEDICARE, MEDICAID, SELFPAY ==
[2023-03-20 22:57] VITALS: BP 157/75; PULSE 60; RESP 20; TEMP 36.4; O2SAT 99; BMI 29.7
[2023-03-20 23:00] VITALS: O2SAT 98
[2023-03-20 23:52] VITALS: PULSE 60; RESP 20
[2023-03-20] MEDS: Ipratropium/Albuterol Sulfate 3 ML AMPUL.NEB INHALATION (23:52)
--- NOTE | 2023-03-21 | RAD_ITS ---
INDICATION: dyspnea EXAMINATION/TECHNIQUE: X-RAY - XR Chest 1 View COMPARISON: 12/30/2022 and 07/08/2022 chest radiograph. Findings: Single frontal view of the chest. LUNG PARENCHYMA: Stable bibasilar likely interstitial scarring versus atelectasis. No acute focal airspace disease or mass lesion. PLEURA: Again noted elevation left hemidiaphragm. No pleural effusion. No pneumothorax. HEART/GREAT VESSELS: Cardiomediastinal silhouette is not enlarged. Left chest single lead pacemaker device in place. BONES: Osseous structures are unremarkable for age. RAD/Chest 1 View (Portable) IMPRESSION: Stable chest with no definite acute disease. Electronically Signed: Hernan Jurado MD at 0:26 EDT ,
[2023-03-21 00:39] LABS: Absolute Lymphocyte Count 1.86 X10^3/uL (0.83-4.51); Absolute Neutrophil Count 6.2 X10^3/uL (2.0-7.7); Basophil# 0.03 X10^3/uL; Basophil% 0.3 % (0-1); Eosinophil# 0.15 X10^3/uL; Eosinophils% 1.7 % (0-5); Hematocrit 35.3 % (37-47); Hemoglobin 9.7 g/dL (12.0-15.0); Lymphocyte # 1.86 X10^3/ul (0.83-4.51); Lymphocyte % 20.8 % (19-41); Mean Corp Hgb Conc 27.5 g/dL (32-36); Mean Corpuscular Hgb 25.5 pg (27.0-32.0); Mean Corpuscular Volume 92.7 fL (81-99); Mean Platelet Vol. 11.2 fl (6.2-12.0); Monocyte# 0.65 X10^3/uL; Monocyte% 7.3 % (0-10); NRBC Flagged by Analyzer 0 % (0-5); Neutrophil % 69.3 % (47-70); Platelet Count 228 K/mm3 (150-450); RBC Distribution Width SD 57.9 fl (35.1-43.9); Red Blood Count 3.81 M/mm3 (4.2-5.4); White Blood Count 8.9 K/mm3 (4.4-11.0)
[2023-03-21 00:44] LABS: Anion Gap 2 (5-15); BUN 20 mg/dL (7-18); BUN/Creat Ratio 24.4 RATIO (10-20); Chloride 108 mmol/L (98-107); Creatinine, Serum 0.82 mg/dL (0.55-1.02); EST Glomerular Filtration Rate 72 mL/min (>60); Est Glom Filt Rate - Afr Amer 87 mL/min (>60); Glucose 93 mg/dL (74-106); Magnesium 2.4 mg/dL (1.6-2.6); Potassium 4.3 mmol/L (3.5-5.1); Sodium Level 143 mmol/L (136-145)
[2023-03-21 01:00] VITALS: BP 161/67; PULSE 60; RESP 19; TEMP 36.6; O2SAT 95
--- NOTE | 2023-03-21 01:37 | EDS_ITS ---
HPI History of Present Illness Chief Complaint: Shortness of Breath Informant: patient Narrative Narrative: Patient is a 77[place]year-[place] [facility] with past medical history of congestive heart failure and COPD who wears 2 L of nasal cannula oxygen 06/02. Patient states over the past 4 days she has had increasing shortness of breath. She denies any fevers or chills or known sick contact. She states that she has been taking her medications as directed but has not been having improvement of symptoms and secondary to this comes to the hospital for evaluation [facility] Medical History Abscess of left leg Anemia Arthritis Atrial fibrillation AV block, complete BiPAP (biphasic positive airway pressure) dependence Cardiology follow-up encounter Chronic anticoagulation COPD (chronic obstructive pulmonary disease) Diabetes Difficulty swallowing DVT (deep venous thrombosis) Dyslipidemia Elevated troponin Essential hypertension Essential hypertension Former smoker Former tobacco use Heart failure with preserved ejection fraction Hematoma Hematoma of left lower leg History of atrial fibrillation History of CHF (congestive heart failure) History of DVT (deep vein thrombosis) History of echocardiogram History of edema History of irregular heartbeat History of pacemaker History of pulmonary embolism History of pulmonary embolus (PE) History of recurrent deep vein thrombosis (DVT) History of steroid therapy Injury of back Low iron Non-smoker On home oxygen therapy Post-menopausal Presence of permanent cardiac pacemaker (~10/12/20) Pulmonary embolism Pulmonary HTN Shortness of breath on exertion Skin necrosis Sleep apnea Tachycardia-bradycardia syndrome Uses wheelchair Venous insufficiency Walker as ambulation aid Wears glasses Wound abscess Home Medications omeprazole 20 mg tablet,delayed release 20 mg PO DAILY GERD 01/17/19 [History Last Taken 09/01/20 10:44] sennosides 8.6 mg-docusate sodium 50 mg tablet 2 tab PO QHS CONSTIPATION 08/22/19 [History Last Taken 08/31/20 20:26] Lactobacillus acidophilus 1 cap PO DAILY [facility] 08/20/20 [History Last Taken 09/01/20 10:42] acetazolamide 250 mg tablet 250 mg PO BID EDEMA 08/20/20 [History Last Taken 09/01/20 08:00] albuterol sulfate 2.5 mg/3 mL (0.083 %) solution for nebulization 2.5 mg (3 mL) inhalation Q2H PRN PRN Shortness of Breath/Wheezing 09/05/20 [Rx Last Taken Unknown] docusate sodium 100 mg capsule 100 mg PO BID 09/05/20 [Rx Last Taken Unknown] bisacodyl 10 mg rectal suppository (Dulcolax (bisacodyl)) 10 mg WA DAILY PRN Constipation 07/14/21 [History Last Taken Unknown] ondansetron HCl 4 mg tablet 4 mg PO Q4H PRN Nausea 07/14/21 [History Last Taken Unknown] vit C 250 mg-vit E 90 mg-zinc 40 mg-copper 1 [id number] capsule (PreserVision AREDS-2) 1 tab PO BID 07/14/21 [History Last Taken Unknown] buspirone 5 mg tablet 2.5 mg PO QHS 01/14/22 [History Last Taken Unknown] furosemide 20 mg tablet 20 mg PO DAILY 01/14/22 [History Last Taken Unknown] magnesium hydroxide 400 mg/5 mL oral suspension (Milk of Magnesia) 30 ml PO DAILY PRN Constipation 01/14/22 [History Last Taken Unknown] potassium chloride 20 mEq tablet,extended release 20 meq PO DAILY 01/14/22 [History Last Taken Unknown] sodium phosphates 19 gram-7 gram/118 mL enema 118 ml WA DAILY PRN Constipation 01/14/22 [History Last Taken Unknown] acetaminophen 500 mg capsule 1,000 mg PO Q8H PRN Pain 04/14/22 [History Last Taken Unknown] albuterol sulfate 90 mcg/actuation aerosol inhaler (Ventolin HFA) 2 puff inhalation Q4H PRN PRN Wheezing ##1 04/14/22 [Rx Last Taken Unknown] polyethylene glycol 3350 17 gram oral powder packet (Miralax) 17 g PO DAILY 08/11/22 [History Last Taken Unknown] ipratropium 0.5 mg-albuterol 3 mg (2.5 mg base)/3 mL nebulization soln 3 ml inhalation Q4H PRN Wheezing 08/20/22 [History Last Taken Unknown] lorazepam 0.5 mg tablet 0.5 mg PO QHS ANXIETY #30 tabs 08/20/22 [Rx Last Taken Unknown] tramadol 50 mg tablet 50 mg PO Q8H PRN Pain, Moderate #30 tabs 08/20/22 [Rx Last Taken Unknown] budesonide 1 mg/2 mL suspension for nebulization 1 mg (2 mL) inhalation BID #60 mL 10/21/22 [Rx Last Taken Unknown] calcium carbonate 600 mg calcium (1,500 mg) tablet 600 mg PO DAILY 12/31/22 [History Last Taken Unknown] cholecalciferol (vitamin D3) 50 mcg (2,000 unit) tablet (Vitamin D3) 50 mcg PO DAILY 12/31/22 [History Last Taken Unknown] citalopram 20 mg tablet 20 mg PO DAILY 12/31/22 [History Last Taken Unknown] cyanocobalamin (vitamin B-12) 500 mcg tablet 500 mcg PO DAILY 12/31/22 [History Last Taken Unknown] dextromethorphan HBr 10 mg/5 mL oral liquid 10 mg PO Q6H PRN Cough 12/31/22 [History Last Taken Unknown] ipratropium 0.5 mg-albuterol 3 mg (2.5 mg base)/3 mL nebulization soln 3 ml inhalation TID 12/31/22 [History Last Taken Unknown] phenylephrine-shark liver oil-mineral oil-petrolatum rectal ointment (Hemorrhoidal ointment) 1 applic WA Q6H PRN hemorrhoids 12/31/22 [History Last Taken Unknown] prednisone 10 mg tablet 10 mg PO DAILY 12/31/22 [History Last Taken Unknown] azithromycin 250 mg tablet 250 mg PO DAILY 02/08/23 [History Last Taken Unknown] dextrose 40 % oral gel 15 g PO Q15M PRN hypoglycemia 02/08/23 [History Last Taken Unknown] glucagon 1 mg solution for injection (Glucagon Emergency Kit) 1 mg subcut Q20M PRN hypoglycem 02/08/23 [History Last Taken Unknown] warfarin 4 mg tablet 4 mg PO MOWEFRSA 02/08/23 [History Last Taken Unknown] gabapentin 300 mg capsule 300 mg PO QHS 03/20/23 [History Last Taken Unknown] warfarin 3 mg tablet 3 mg PO SUTUTH 03/20/23 [History Last Taken Unknown] prednisone 20 mg tablet 20 mg PO DAILY 5 days #5 tabs 03/21/23 [Rx Last Taken Unknown] Allergy/AdvReac Type Severity Reaction Status Date / Time amlodipine besylate AdvReac ANKLE AND Verified 03/20/23 23:[address] [[facility]] LEG EDEMA codeine AdvReac MENTAL Verified 03/20/23 23:01 STATUS CHANGE lisinopril AdvReac COUGH Verified 03/20/23 23:01 Family History Sister Heart disease Surgical History History of cholecystectomy History of total hysterectomy Hx of atrioventricular node ablation tailbone surgery Social History household members: none housing: jail Smoking Status: Former smoker how long ago did patient quit smoking: Approxiomately 2003 alcohol intake: never substance use type: does not use caffeine: No ROS ROS ED Constitutional Constitutional ED: Denies chills or fever(s) ENT ENT ED: Denies sore throat Cardiovascular Cardiovascular: Denies chest pain Respiratory/Chest Respiratory/Chest: Reports cough, dyspnea and dyspnea on exertion Gastrointestinal Gastrointestinal: Denies abdominal pain, diarrhea, nausea or vomiting Genitourinary Genitourinary ED: Denies dysuria Musculoskeletal Musculoskeletal: Denies myalgias Integumentary Denies rash Neurologic Neurologic: Denies headache(s) Hematologic/Lymphatic Hematologic/Lymphatic: Reports easy bleeding and easy bruising EXAM Physical Exam Const Vital Signs: 03/20/23 22:57 03/20/23 23:00 03/20/23 23:52 Temperature 97.6 F L Temperature Source Temporal Pulse Rate 60 60 Respiratory Rate 20 H 20 H Respiratory Effort Short of Breath Respiratory Depth Normal Respiratory Pattern Tachypnea Normal Blood Pressure 157/75 H Blood Pressure Mean 102 Pulse Ox 99 Oxygen Delivery Method Nasal Cannula Nasal Cannula Oxygen Flow Rate (L/min) 2 2 03/21/23 01:00 Temperature 97.8 F Temperature Source Oral Pulse Rate 60 Respiratory Rate 19 H Respiratory Effort Respiratory Depth Respiratory Pattern Blood Pressure 161/67 H Blood Pressure Mean 98 Pulse Ox 95 Oxygen Delivery Method Nasal Cannula Oxygen Flow Rate (L/min) 2 Positive well nourished and well developed General Appearance ED: well developed HEENT Reports dry mucous membranes HEENT Narrative: No tongue or lip swelling no oral lesions no airway edema or compromise Mouth ED: Yes dry mucous membranes Mouth: dry mucous membranes Eyes PERRL and EOMs intact bilaterally General Eye ED: Yes pale conjunctiva Neck supple and no JVD Chest Wall palpation of chest normal Chest Narrative: No bony deformity or crepitance noted Resp Resp Narrative: Patient's breath sounds are diminished throughout with faint expiratory wheeze in the bilateral bases. There is mild tachypnea noted but otherwise no accessory muscle use nasal flaring or retraction. Cardio regular rate and regular rhythm GI normal to inspection, nondistended, normoactive bowel sounds, non-tender, non- distended and no masses GI Narrative: No pulsatile mass or fluid wave noted Auscultation: normoactive bowel sounds Palpation: soft Extremity Extremity Narrative: Trace to +1 pitting edema to the bilateral lower extremities that is equal and symmetric Neuro oriented x3 and CN's II-XII intact bilaterally Sensorium / Orientation: alert Psych mental status grossly normal Skin no rashes or lesions noted MDM MDM MDM Narrative Medical decision making narrative: Patient presented to the ER satting 98% on her normal 2 L with minimal work of breathing. However secondary to her history of COPD and chronic congestive heart failure there is concern that symptoms are related to fluid overload versus COPD exacerbation versus pneumonia or acute blood loss anemia. Basic blood work was obtained which revealed no clinically significant findings with patient having values near her baseline. Chest x-ray also revealed no acute infectious or inflammatory pathology or signs of pleural effusion. The p atient's oxygen level remained 96 to 98% on her normal 2 L. Therefore at this time as there is no obvious pneumonia or fluid overload or need for blood transfusion I do not feel patient warrants admission to the hospital especially as she satting well on her baseline oxygen and is otherwise safe for discharge History & Record Review Discussion w/independent historian: Patient Lab Data Attestation: I reviewed the patient's lab results. Labs: Laboratory Results - last 24 hr 03/20/23 03/20/23 03/21/23 23:50 23:50 00:30 WBC Cancelled 8.9 Corrected WBC Cancelled RBC Cancelled 3.81 L Hgb Cancelled 9.7 L Hct Cancelled 35.3 L MCV Cancelled 92.7 MCH Cancelled 25.5 L MCHC Cancelled 27.5 L RDW Std Deviation Cancelled 57.9 H RDW Coeff of Laura Cancelled 17.0 H Plt Count Cancelled 228 MPV Cancelled 11.2 Immature Gran % (Auto) Cancelled 0.600 Neut % (Auto) Cancelled 69.3 Lymph % (Auto) Cancelled 20.8 [place] % (Auto) Cancelled 7.3 Eos % (Auto) Cancelled 1.7 Baso % (Auto) Cancelled 0.3 Absolute Neuts (auto) Cancelled 6.2 Absolute Lymphs (auto) Cancelled 1.86 Total Counted Cancelled Neutrophils % (Manual) Cancelled Band Neutrophils % Cancelled Lymphocytes % (Manual) Cancelled Monocytes % (Manual) Cancelled Eosinophils % (Manual) Cancelled Basophils % (Manual) Cancelled Metamyelocytes % Cancelled Myelocytes % Cancelled Promyelocytes % Cancelled Blast Cells % Cancelled Plasma Cell % (Manual) Cancelled Other Cells % Cancelled Nucleated RBC % Cancelled 0 Nucleated RBCs/100 WBC Cancelled Differential Comment Cancelled Diff Path Review Cancelled Hypersegmented Neuts Cancelled Atypical Lymphocytes Cancelled Reactive Lymphocytes Cancelled Smudge Cells Cancelled Toxic Granulation Cancelled Toxic Vacuolation Cancelled Dohle Bodies Cancelled Judah Rods Cancelled Platelet Estimate Cancelled Plt Morphology Comment Cancelled RBC Morphology Cancelled Cancelled Polychromasia Cancelled Hypochromasia Cancelled Poikilocytosis Cancelled Basophilic Stippling Cancelled Anisocytosis Cancelled Microcytosis Cancelled Macrocytosis Cancelled Spherocytes Cancelled Sickle Cells Cancelled Target Cells Cancelled Tear Drop Cells Cancelled Ovalocytes Cancelled Stomatocytes Cancelled [place] Bodies Cancelled Mariah Cells Cancelled Bite Cells Cancelled Crenated Cell Cancelled Acanthocytes (Spur) Cancelled Rouleaux Cancelled Schistocytes Cancelled Sodium 143 Potassium 4.3 Chloride 108 H Carbon Dioxide 33.0 H Anion Gap 2 L BUN 20 H Creatinine 0.82 Estim Creat Clear Calc 54.10 Est GFR (MDRD) Af Amer 87 Est GFR (MDRD) Non-Af 72 BUN/Creatinine Ratio 24.4 H Glucose 93 Calcium 9.0 Magnesium 2.4 Radiography Diagnostic Testing: Clinical Impression(s) from Imaging Studies Chest X-Ray 03/21/23 00:00 IMPRESSION: Stable chest with no definite acute disease. 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, Former smoker, Chronic diastolic CHF (congestive heart failure) Instructions: COPD: Wheezing and Chest Tightness Prescriptions: New prednisone 20 mg tablet 20 mg PO DAILY 5 Days Qty: 5 0RF No Action buspirone 5 mg tablet 2.5 mg PO QHS sodium phosphates 19-7 gram/118 mL enema 118 ml WA DAILY PRN (Reason: Constipation) furosemide 20 mg tablet 20 mg PO DAILY potassium chloride 20 mEq tablet extended release 20 meq PO DAILY budesonide 1 mg/2 mL suspension for nebulization 1 mg inhalation BID Qty: 60 6RF Glucagon Emergency Kit (human) 1 mg recon soln 1 mg subcut Q20M PRN (Reason: hypoglycem) Rx Instructions: until target blood sugar attained dextrose 40 % gel 15 g PO Q15M PRN (Reason: hypoglycemia) Rx Instructions: until symptoms of low blood sugar are controlled azithromycin 250 mg tablet 250 mg PO DAILY Rx Instructions: Mon, and monday omeprazole 20 MG tablet,delayed release (DR/EC) 20 mg PO DAILY sennosides-docusate sodium 1 EACH tablet 2 tab PO QHS acetazolamide 250 MG tablet 250 mg PO BID Lactobacillus acidophilus 1 EACH capsule 1 cap PO DAILY albuterol sulfate 2.5 MG/3 ML solution for nebulization 2.5 mg INHALATION Q2H PRN PRN (Reason: Shortness of Breath/Wheezing) 0RF docusate sodium 100 MG capsule 100 mg PO BID 0RF ondansetron HCl 4 mg Tablet 4 mg PO Q4H PRN (Reason: Nausea) bisacodyl [Dulcolax (bisacodyl)] 10 mg Suppository 10 mg WA DAILY PRN (Reason: Constipation) PreserVision AREDS-2 250-90-40-1 mg Capsule 1 tab PO BID magnesium hydroxide [Milk of Magnesia] 400 mg/5 mL suspension 30 ml PO DAILY PRN (Reason: Constipation) acetaminophen 500 mg Capsule 1,000 mg PO Q8H PRN (Reason: Pain) albuterol sulfate [Ventolin HFA] 90 mcg/actuation HFA aerosol inhaler 2 puff inhalation Q4H PRN PRN (Reason: Wheezing) Qty: 1 0RF warfarin 4 mg tablet 4 mg PO MOWEFRSA polyethylene glycol 3350 [Miralax] 17 gram Powder In Packet 17 g PO DAILY ipratropium-albuterol 0.5 mg-3 mg(2.5 mg base)/3 mL Solution For Nebulization 3 ml INHALATION Q4H PRN (Reason: Wheezing) tramadol 50 mg Tablet 50 mg PO Q8H MDD 150mg PRN (Reason: Pain, Moderate) Qty: 30 0RF lorazepam 0.5 mg tablet 0.5 mg PO QHS Qty: 30 0RF prednisone 10 mg Tablet 10 mg PO DAILY ipratropium-albuterol 0.5 mg-3 mg(2.5 mg base)/3 mL Solution For Nebulization 3 ml INHALATION TID dextromethorphan HBr 10 mg/5 mL Liquid 10 mg PO Q6H PRN (Reason: Cough) calcium carbonate 600 mg calcium (1,500 mg) Tablet 600 mg PO DAILY citalopram 20 mg tablet 20 mg PO DAILY cyanocobalamin (vitamin B-12) 500 mcg Tablet 500 mcg PO DAILY Hemorrhoidal Ointment 1 applic WA Q6H PRN (Reason: hemorrhoids) cholecalciferol (vitamin D3) [Vitamin D3] 50 mcg (2,000 unit) Tablet 50 mcg PO DAILY warfarin 3 mg tablet 3 mg PO SUTUTH gabapentin 300 mg capsule 300 mg PO QHS Primary Care Provider: Tor Lucia Referrals: Tor Lucia MD [Primary Care Provider] - Activity Restrictions/Additional Instructions: Please increase your prednisone to 20 mg once daily for the next 5 days and continue all of your other medications as previously directed. Your work-up today shows no signs of pneumonia or fluid buildup or COVID or influenza Disposition Disposition: Home, Self Care
[2023-03-21 02:56] VITALS: BP 160/78; O2SAT 96
[2023-03-21 16:33] LABS: BNP,B-Type NATRIURETIC PEPTIDE 32.9 pg/mL (0-100)
== END 2023-03-21 03:35 | disposition home or self-care (01) ==
PROVIDERS: Emergency Provider Emergency Medicine; PCP Family Medicine; Visit Provider Emergency Medicine
DX: J44.9 Chronic obstructive pulmonary disease, unspecified (principal); I11.0 Hypertensive heart disease with heart failure; I50.32 Chronic diastolic (congestive) heart failure; I48.91 Unspecified atrial fibrillation; G47.33 Obstructive sleep apnea (adult) (pediatric); Z87.891 Personal history of nicotine dependence; Z79.899 Other long term (current) drug therapy; Z79.01 Long term (current) use of anticoagulants; Z99.81 Dependence on supplemental oxygen; Z86.718 Personal history of other venous thrombosis and embolism; Z86.711 Personal history of pulmonary embolism; Z95.0 Presence of cardiac pacemaker
CPT/HCPCS: 36415; 71045; 80048; 83735; 83880; 85025; 87428; 94640; 99284; A4216

== ENCOUNTER 2023-05-02 15:53 | Emergency (ER) | payer MEDICARE, MEDICAID, SELFPAY ==
[2023-05-02] VITALS (9 sets, daily range): BP systolic 162–196; BP diastolic 72–92; PULSE 60; RESP 12–39; TEMP 37.9; O2SAT 95–98; BMI 29.9
--- NOTE | 2023-05-02 16:18 | EKG12_ITS ---
Test Reason : SOB CP Blood Pressure : / mmHG Vent. Rate : 060 BPM Atrial Rate : 044 BPM P-R Int : 000 ms QRS Dur : 116 ms QT Int : 420 ms P-R-T Axes : 000 -72 102 degrees QTc Int : 420 ms Ventricular-paced rhythm Abnormal ECG Confirmed by KATELYN SEXTON MD ([id number]), brands editor JANEEN MAK ([id number]) on 05/04/2023 2:01:57 PM Referred By: [email or web address] Confirmed By:KATELYN SEXTON MD
--- NOTE | 2023-05-02 16:23 | EDS_ITS ---
HPI History of Present Illness Chief Complaint: Shortness of Breath Informant: patient, EMS and SNF Narrative Narrative: 77-year-old female presenting to the emergency department with chief complaint of dyspnea. Patient currently resides at the [facility]. She has a history of COPD with chronic oxygen use. She wears BiPAP at night. She has a history of atrial fibrillation and DVT/PE and is on Coumadin. Patient states that she began to feel short of breath yesterday. She had cough yesterday but none today. She states she did not get an the breathing treatment but needs a breathing treatment now. She denies have a history of heart failure but does carry diagnosis of chronic diastolic CHF. She does not believe she has a fever. Daughter notes that she has been more fatigued over the weekend. [facility] Medical History Abscess of left leg Anemia Arthritis Atrial fibrillation AV block, complete BiPAP (biphasic positive airway pressure) dependence Cardiology follow-up encounter Chronic anticoagulation COPD (chronic obstructive pulmonary disease) Diabetes Difficulty swallowing DVT (deep venous thrombosis) Dyslipidemia Elevated troponin Essential hypertension Essential hypertension Former smoker Former tobacco use Heart failure with preserved ejection fraction Hematoma Hematoma of left lower leg History of atrial fibrillation History of CHF (congestive heart failure) History of DVT (deep vein thrombosis) History of echocardiogram History of edema History of irregular heartbeat History of pacemaker History of pulmonary embolism History of pulmonary embolus (PE) History of recurrent deep vein thrombosis (DVT) History of steroid therapy Injury of back Low iron Non-smoker On home oxygen therapy Post-menopausal Presence of permanent cardiac pacemaker (~10/12/20) Pulmonary embolism Pulmonary HTN Shortness of breath on exertion Skin necrosis Sleep apnea Tachycardia-bradycardia syndrome Uses wheelchair Venous insufficiency Walker as ambulation aid Wears glasses Wound abscess Home Medications omeprazole 20 mg tablet,delayed release 20 mg PO DAILY GERD 01/17/19 [History Last Taken 09/01/20 10:44] sennosides 8.6 mg-docusate sodium 50 mg tablet 2 tab PO QHS CONSTIPATION 08/22/19 [History Last Taken 08/31/20 20:26] Lactobacillus acidophilus 1 cap PO DAILY IMMUNE [facility] 08/20/20 [History Last Taken 09/01/20 10:42] acetazolamide 250 mg tablet 250 mg PO BID EDEMA 08/20/20 [History Last Taken 09/01/20 08:00] albuterol sulfate 2.5 mg/3 mL (0.083 %) solution for nebulization 2.5 mg (3 mL) inhalation Q2H PRN PRN Shortness of Breath/Wheezing 09/05/20 [Rx Last Taken Unknown] docusate sodium 100 mg capsule 100 mg PO BID 09/05/20 [Rx Last Taken Unknown] bisacodyl 10 mg rectal suppository (Dulcolax (bisacodyl)) 10 mg NM DAILY PRN Constipation 07/14/21 [History Last Taken Unknown] ondansetron HCl 4 mg tablet 4 mg PO Q4H PRN Nausea 07/14/21 [History Last Taken Unknown] vit C 250 mg-vit E 90 mg-zinc 40 mg-copper 1 [id number]-[id number]-xosxzp capsule (PreserVision AREDS-2) 1 tab PO BID 07/14/21 [History Last Taken Unknown] buspirone 5 mg tablet 2.5 mg PO QHS 01/14/22 [History Last Taken Unknown] furosemide 20 mg tablet 20 mg PO DAILY 01/14/22 [History Last Taken Unknown] magnesium hydroxide 400 mg/5 mL oral suspension (Milk of Magnesia) 30 ml PO DAILY PRN Constipation 01/14/22 [History Last Taken Unknown] potassium chloride 20 mEq tablet,extended release 20 meq PO DAILY 01/14/22 [History Last Taken Unknown] sodium phosphates 19 gram-7 gram/118 mL enema 118 ml NM DAILY PRN Constipation 01/14/22 [History Last Taken Unknown] acetaminophen 500 mg capsule 1,000 mg PO Q8H PRN Pain 04/14/22 [History Last Taken Unknown] albuterol sulfate 90 mcg/actuation aerosol inhaler (Ventolin HFA) 2 puff inhalation Q4H PRN PRN Wheezing ##1 04/14/22 [Rx Last Taken Unknown] polyethylene glycol 3350 17 gram oral powder packet (Miralax) 17 g PO DAILY 08/11/22 [History Last Taken Unknown] ipratropium 0.5 mg-albuterol 3 mg (2.5 mg base)/3 mL nebulization soln 3 ml inhalation Q4H PRN Wheezing 08/20/22 [History Last Taken Unknown] lorazepam 0.5 mg tablet 0.5 mg PO QHS ANXIETY #30 tabs 08/20/22 [Rx Last Taken Unknown] tramadol 50 mg tablet 50 mg PO Q8H PRN Pain, Moderate #30 tabs 08/20/22 [Rx Last Taken Unknown] budesonide 1 mg/2 mL suspension for nebulization 1 mg (2 mL) inhalation BID #60 mL 10/21/22 [Rx Last Taken Unknown] calcium carbonate 600 mg calcium (1,500 mg) tablet 600 mg PO DAILY 12/31/22 [History Last Taken Unknown] cholecalciferol (vitamin D3) 50 mcg (2,000 unit) tablet (Vitamin D3) 50 mcg PO DAILY 12/31/22 [History Last Taken Unknown] citalopram 20 mg tablet 20 mg PO DAILY 12/31/22 [History Last Taken Unknown] cyanocobalamin (vitamin B-12) 500 mcg tablet 500 mcg PO DAILY 12/31/22 [History Last Taken Unknown] dextromethorphan HBr 10 mg/5 mL oral liquid 10 mg PO Q6H PRN Cough 12/31/22 [History Last Taken Unknown] ipratropium 0.5 mg-albuterol 3 mg (2.5 mg base)/3 mL nebulization soln 3 ml inhalation TID 12/31/22 [History Last Taken Unknown] phenylephrine-shark liver oil-mineral oil-petrolatum rectal ointment (Hemorrhoidal ointment) 1 applic NM Q6H PRN hemorrhoids 12/31/22 [History Last Taken Unknown] dextrose 40 % oral gel 15 g PO Q15M PRN hypoglycemia 02/08/23 [History Last Taken Unknown] glucagon 1 mg solution for injection (Glucagon Emergency Kit) 1 mg subcut Q20M PRN hypoglycem 02/08/23 [History Last Taken Unknown] warfarin 4 mg tablet 4 mg PO MOWEFRSA 02/08/23 [History Last Taken Unknown] gabapentin 300 mg capsule 300 mg PO QHS 03/20/23 [History Last Taken Unknown] warfarin 3 mg tablet 3 mg PO SUTUTH 03/20/23 [History Last Taken Unknown] azithromycin 250 mg tablet 250 mg PO QMWF #36 tabs 04/19/23 [Rx Last Taken Unknown] prednisone 10 mg tablet 10 mg PO DAILY #90 tabs 04/19/23 [Rx Last Taken Unknown] albuterol sulfate 2.5 mg/3 mL (0.083 %) solution for nebulization 2.5 mg (3 mL) inhalation Q4H #25 vials 05/02/23 [Rx Last Taken Unknown] azithromycin 250 mg tablet (Zithromax Z-Cabrera) See Rx Instructions PO .COMPLEX #6 tabs 05/02/23 [Rx Last Taken Unknown] prednisone 10 mg tablet 10 mg PO QDAY #30 tabs 05/02/23 [Rx Last Taken Unknown] prednisone 20 mg tablet 60 mg (3 x 20 mg) PO DAILY #15 TABLETS 05/02/23 [Rx Last Taken Unknown] Allergy/AdvReac Type Severity Reaction Status Date / Time amlodipine besylate AdvReac ANKLE AND Verified 05/02/23 15:56 [From [facility]] LEG EDEMA codeine AdvReac MENTAL Verified 05/02/23 15:56 STATUS CHANGE lisinopril AdvReac COUGH Verified 05/02/23 15:56 Family History Sister Heart disease Surgical History History of cholecystectomy History of total hysterectomy Hx of atrioventricular node ablation tailbone surgery Social History household members: none housing: alf Smoking Status: Former smoker how long ago did patient quit smoking: Approxiomately 2003 alcohol intake: never substance use type: does not use caffeine: No ROS ROS ED Constitutional Constitutional ED: Denies chills, fever(s) or weight loss Eyes Eyes: Denies change in vision or diplopia ENT ENT ED: Denies ear pain, rhinorrhea or sore throat Cardiovascular Cardiovascular: Denies chest pain, orthopnea, palpitations or racing heartbeat Respiratory/Chest Respiratory/Chest: Reports cough, dyspnea and dyspnea on exertion; Denies orthopnea or sputum Gastrointestinal Gastrointestinal: Denies abdominal pain, diarrhea, nausea or vomiting Genitourinary Genitourinary ED: Denies dysuria, hematuria or urinary frequency Musculoskeletal Musculoskeletal: Denies arthralgias or myalgias Integumentary Denies abscess or rash Neurologic Neurologic: Denies headache(s) or weakness Psychiatric Psychiatric: Denies anxiety, depression, suicidal ideation or suicidal thoughts Endocrine Endocrinology: Denies polydipsia, polyphagia or polyuria Allergic/Immunologic Allergic/Immunologic ED: Denies mouth swelling, tongue swelling or urticaria EXAM Physical Exam Narrative Exam Narrative: Patient appears dyspneic sitting in the bed. Const Vital Signs: 05/02/23 15:56 05/02/23 15:59 05/02/23 15:59 Temperature 100.3 F H Temperature Source Oral Pulse Rate 60 60 Respiratory Rate 24 H 28 H Respiratory Effort Short of Breath Respiratory Pattern Blood Pressure 196/92 H Blood Pressure Mean 126 Pulse Ox 97 98 Oxygen Delivery Method Nasal Cannula Nasal Cannula Oxygen Flow Rate (L/min) 3 3 Fraction of Inspired Oxygen (FIO2) 05/02/23 16:01 05/02/23 16:38 05/02/23 16:29 Temperature Temperature Source Pulse Rate 60 Respiratory Rate 39 H Respiratory Effort Short of Breath Respiratory Pattern Tachypnea Tachypnea Blood Pressure Blood Pressure Mean Pulse Ox 95 96 Oxygen Delivery Method Nasal Cannula Bi-pap Oxygen Flow Rate (L/min) 3 Fraction of Inspired Oxygen (FIO2) 30 05/02/23 17:55 05/02/23 18:08 05/02/23 18:10 Temperature Temperature Source Pulse Rate 60 60 Respiratory Rate 26 H 22 H Respiratory Effort Respiratory Pattern Blood Pressure 171/72 H 173/74 H Blood Pressure Mean 105 107 Pulse Ox 96 Oxygen Delivery Method Nasal Cannula Oxygen Flow Rate (L/min) 3 Fraction of Inspired Oxygen (FIO2) 05/02/23 18:16 05/02/23 20:04 Temperature Temperature Source Pulse Rate 60 60 Respiratory Rate 22 H 22 H Respiratory Effort Respiratory Pattern Blood Pressure 162/76 H 181/83 H Blood Pressure Mean 104 115 Pulse Ox 97 95 Oxygen Delivery Method Nasal Cannula Nasal Cannula Oxygen Flow Rate (L/min) 3 3 Fraction of Inspired Oxygen (FIO2) Positive well nourished and well developed General Appearance ED: well developed HEENT Reports normocephalic, head/scalp atraumatic and moist mucous membranes Eyes PERRL and EOMs intact bilaterally Neck no lymphadenopathy, supple and no JVD Resp Resp Narrative: Patient is dyspneic. However she is not taking large tidal volumes and is clearing her throat during expiration. Auscultation: wheezes scattered wheezes and diminished lung sounds Cardio regular rate, regular rhythm and no murmurs GI normal to inspection, nondistended, normoactive bowel sounds and non-tender Palpation: soft Back/Spine no CVA tenderness and normal ROM Extremity normal to inspection General Extremety ED: Negative for edema General Extremity: Negative for edema Neuro oriented x3 and CN's II-XII intact bilaterally Sensorium / Orientation: alert Motor Exam: strength 5/5 throughout Psych mental status grossly normal Mood & Affect: Negative for depressed or tearful Skin no rashes or lesions noted and no wounds MDM MDM MDM Narrative Medical decision making narrative: Patient was initially placed on BiPAP. She was then given a breathing treatment. My independent rotation of the chest x-ray is chronic changes. No infiltrates or effusions noted. White count is 11.1. INR 3.1. Troponin normal at 31 and natruretic peptide of 139.2. Creatinine 0.6 now with a BUN of 23. EKG is paced rhythm. Influenza COVID-negative. I do not see any evidence of pneumonia effusion heart failure. I doubt pulmonary embolism given that she is anticoagulated 3.1. No evidence of ACS. Dissection is very unlikely. After breathing treatment and a dose of Solu- Medrol the patient was able to come off of BiPAP. Her breathing is now nonlabored. She is 96% on her 2 L. She is not anywhere near dyspneic as when she first came in. Patient essentially only ambulates 10 to 20 feet max. [facility] facility. At this point I think we can discharge her home. O I am going to place her on azithromycin, burst prednisone, and have her do aerosols every 3 hours. We can asked nursing to provide a bedside commode so she can limit how much she is having to walk. Rest the time she typically is in a wheelchair. She was advised that she may worsen. However at this time it appears that she may do well at the nursing facility. History & Record Review Discussion w/independent historian: EMS personnel and Patient Lab Data Labs: Laboratory Results - last 24 hr 05/02/23 16:15 WBC 11.1 H RBC 4.26 Hgb 10.7 L Hct 39.6 MCV 93.0 MCH 25.1 L MCHC 27.0 L RDW Std Deviation 57.1 H RDW Coeff of Laura 17.0 H Plt Count 260 MPV 12.4 H Immature Gran % (Auto) 0.700 Neut % (Auto) 94.0 H Lymph % (Auto) 4.3 L Drew % (Auto) 0.7 Eos % (Auto) 0.0 Baso % (Auto) 0.3 Absolute Neuts (auto) 10.4 H Absolute Lymphs (auto) 0.48 L Nucleated RBC % 0 Differential Comment SCANNED PT 32.2 H INR 3.1 Sodium 145 Potassium 4.1 Chloride 110 H Carbon Dioxide 33.0 H Anion Gap 2 L BUN 23 H Creatinine 0.69 Estim Creat Clear Calc 44.36 Est GFR (MDRD) Af Amer 106 Est GFR (MDRD) Non-Af 87 BUN/Creatinine Ratio 33.4 H Glucose 146 H Lactic Acid 0.8 Calcium 9.0 Total Bilirubin 0.90 Direct Bilirubin 0.25 AST 14 L ALT 22 Alkaline Phosphatase 95 Troponin I High Sens 31 B-Natriuretic Peptide 139.2 H Total Protein 7.3 Albumin 3.2 Globulin 4.1 Radiography Diagnostic Testing: Clinical Impression(s) from Imaging Studies Chest X-Ray 05/02/23 16:50 IMPRESSION: No acute radiographic abnormalities. Electronically Signed: Darrius Quintana MD at 17:13 EDT , EKG Initial EKG: Attestation: I personally reviewed and interpreted this EKG as follows: Comments: Ventricularly paced rhythm with a ventricular rate of 60 bpm. There appears to be an underlying atrial fibrillation rhythm. Discharge Plan Triage Chief Complaint: Shortness of Breath Other Complaint: Chest Other ED Provider: Antonio Gonzales Dx/Rx/DC Orders Clinical Impression: Acute dyspnea, Weakness, Acute exacerbation of chronic obstructive pulmonary disease Instructions: COPD: Coping with Mucus Prescriptions: New azithromycin [Zithromax Z-Cabrera] 250 mg tablet See Rx Instructions .ROUTE .COMPLEX Qty: 6 0RF Rx Instructions: For 250 mg dose pack: take 500 mg today (day 1), then 250 mg for 4 days (days 2-5) albuterol sulfate 2.5 mg /3 mL (0.083 %) solution for nebulization 2.5 mg inhalation Q4H Qty: 25 0RF Rx Instructions: use q4 h x 3 days prednisone 20 mg tablet 60 mg PO DAILY Qty: 15 0RF No Action buspirone 5 mg tablet 2.5 mg PO QHS sodium phosphates 19-7 gram/118 mL enema 118 ml NM DAILY PRN (Reason: Constipation) furosemide 20 mg tablet 20 mg PO DAILY potassium chloride 20 mEq tablet extended release 20 meq PO DAILY budesonide 1 mg/2 mL suspension for nebulization 1 mg inhalation BID Qty: 60 6RF Glucagon Emergency Kit (human) 1 mg recon soln 1 mg subcut Q20M PRN (Reason: hypoglycem) Rx Instructions: until target blood sugar attained dextrose 40 % gel 15 g PO Q15M PRN (Reason: hypoglycemia) Rx Instructions: until symptoms of low blood sugar are controlled azithromycin 250 mg tablet 250 mg PO QMWF Qty: 36 0RF Rx Instructions: Mon, and monday prednisone 10 mg tablet 10 mg PO DAILY Qty: 90 3RF omeprazole 20 MG tablet,delayed release (DR/EC) 20 mg PO DAILY sennosides-docusate sodium 1 EACH tablet 2 tab PO QHS acetazolamide 250 MG tablet 250 mg PO BID Lactobacillus acidophilus 1 EACH capsule 1 cap PO DAILY albuterol sulfate 2.5 MG/3 ML solution for nebulization 2.5 mg INHALATION Q2H PRN PRN (Reason: Shortness of Breath/Wheezing) 0RF docusate sodium 100 MG capsule 100 mg PO BID 0RF ondansetron HCl 4 mg Tablet 4 mg PO Q4H PRN (Reason: Nausea) bisacodyl [Dulcolax (bisacodyl)] 10 mg Suppository 10 mg NM DAILY PRN (Reason: Constipation) PreserVision AREDS-2 250-90-40-1 mg Capsule 1 tab PO BID magnesium hydroxide [Milk of Magnesia] 400 mg/5 mL suspension 30 ml PO DAILY PRN (Reason: Constipation) acetaminophen 500 mg Capsule 1,000 mg PO Q8H PRN (Reason: Pain) albuterol sulfate [Ventolin HFA] 90 mcg/actuation HFA aerosol inhaler 2 puff inhalation Q4H PRN PRN (Reason: Wheezing) Qty: 1 0RF warfarin 4 mg tablet 4 mg PO MOWEFRSA polyethylene glycol 3350 [Miralax] 17 gram Powder In Packet 17 g PO DAILY ipratropium-albuterol 0.5 mg-3 mg(2.5 mg base)/3 mL Solution For Nebulization 3 ml INHALATION Q4H PRN (Reason: Wheezing) tramadol 50 mg Tablet 50 mg PO Q8H MDD 150mg PRN (Reason: Pain, Moderate) Qty: 30 0RF lorazepam 0.5 mg tablet 0.5 mg PO QHS Qty: 30 0RF ipratropium-albuterol 0.5 mg-3 mg(2.5 mg base)/3 mL Solution For Nebulization 3 ml INHALATION TID dextromethorphan HBr 10 mg/5 mL Liquid 10 mg PO Q6H PRN (Reason: Cough) calcium carbonate 600 mg calcium (1,500 mg) Tablet 600 mg PO DAILY citalopram 20 mg tablet 20 mg PO DAILY cyanocobalamin (vitamin B-12) 500 mcg Tablet 500 mcg PO DAILY Hemorrhoidal Ointment 1 applic NM Q6H PRN (Reason: hemorrhoids) cholecalciferol (vitamin D3) [Vitamin D3] 50 mcg (2,000 unit) Tablet 50 mcg PO DAILY warfarin 3 mg tablet 3 mg PO SUTUTH gabapentin 300 mg capsule 300 mg PO QHS prednisone 10 mg tablet 10 mg PO QDAY Qty: 30 0RF Rx Instructions: take 4 tabs for three days, then 3 tabs for three days, then 2 tabs for three days, then 1 tab for 3 days Primary Care Provider: Tor Lucia Referrals: Tor Lucia MD [Primary Care Provider] - 3-5 Days Activity Restrictions/Additional Instructions: Please provide bedside commode for patient to use in room to limit having to walk to the bathroom. Patient is at risk for decompensation with her breathing but at this time is maintaining normal oxygen saturation with her baseline supplemental oxygen. Disposition Disposition: Home, Self Care
--- NOTE | 2023-05-02 16:50 | RAD_ITS ---
INDICATION: dyspnea EXAMINATION/TECHNIQUE: X-RAY - XR Chest 1 View COMPARISON: 03/20/2023. FINDINGS: The lungs are clear. Tortuous and calcified thoracic aorta. The heart is borderline enlarged. Left-sided cardiac device. No pleural effusion or pneumothorax. Degenerative changes of the thoracic spine. RAD/Chest 1 View (Portable) IMPRESSION: No acute radiographic abnormalities. Electronically Signed: Darrius Quintana MD at 17:13 EDT ,
[2023-05-02 17:03] LABS: Absolute Lymphocyte Count 0.48 X10^3/uL (0.83-4.51); Absolute Neutrophil Count 10.4 X10^3/uL (2.0-7.7); Basophil# 0.03 X10^3/uL; Basophil% 0.3 % (0-1); Hematocrit 39.6 % (37-47); Hemoglobin 10.7 g/dL (12.0-15.0); Lymphocyte # 0.48 X10^3/ul (0.83-4.51); Lymphocyte % 4.3 % (19-41); Mean Corpuscular Hgb 25.1 pg (27.0-32.0); Mean Platelet Vol. 12.4 fl (6.2-12.0); Monocyte# 0.08 X10^3/uL; Monocyte% 0.7 % (0-10); NRBC Flagged by Analyzer 0 % (0-5); Neutrophil # 10.42 X10^3/uL (2.7-7.7); POSITIVE DIFFERENTIAL YES; Platelet Count 260 K/mm3 (150-450); RBC Distribution Width SD 57.1 fl (35.1-43.9); Red Blood Count 4.26 M/mm3 (4.2-5.4); White Blood Count 11.1 K/mm3 (4.4-11.0)
[2023-05-02 17:06] LABS: Differential Indicated SCAN CRITERIA MET
[2023-05-02 17:09] LABS: International Normalized Ratio 3.1; Prothrombin Time (Protime)PT. 32.2 SECONDS (11.7-14.9)
[2023-05-02 17:22] LABS: BNP,B-Type NATRIURETIC PEPTIDE 139.2 pg/mL (0-100)
[2023-05-02 17:23] LABS: Differential Comment SCANNED
[2023-05-02 17:26] LABS: AST(SGOT) 14 U/L (15-37); Alanine Aminotransfer ALT/SGPT 22 U/L (13-56); Albumin, Serum 3.2 g/dL (3.2-5.0); Alkaline Phosphatase 95 U/L (45-117); Bilirubin, Direct 0.25 mg/dL (0.00-0.30); Globulin 4.1 g/dL (2.2-4.2); Protein, Total 7.3 g/dL (6.4-8.2)
[2023-05-02 17:28] LABS: Anion Gap 2 (5-15); BUN 23 mg/dL (7-18); BUN/Creat Ratio 33.4 RATIO (10-20); Chloride 110 mmol/L (98-107); Creatinine, Serum 0.69 mg/dL (0.55-1.02); EST Glomerular Filtration Rate 87 mL/min (>60); Est Glom Filt Rate - Afr Amer 106 mL/min (>60); Estimated Creatinine Clearance 44.36 ml/min; Glucose 146 mg/dL (74-106); Potassium 4.1 mmol/L (3.5-5.1); Sodium Level 145 mmol/L (136-145); Troponin-I HS 31 pg/mL (3.0-54.0)
[2023-05-02 17:30] LABS: Lactic Acid 0.8 mmol/L (0.4-1.9)
[2023-05-02] MEDS: Ipratropium/Albuterol Sulfate 3 ML AMPUL.NEB INHALATION (17:53)
[2023-05-02] MEDS: MethylPREDNISolone 125 MG/2 ML Vial 80 MG IV (18:14)
== END 2023-05-02 20:14 | disposition home or self-care (01) ==
PROVIDERS: Emergency Provider Emergency Medicine; PCP Family Medicine; Visit Provider Emergency Medicine
DX: J44.1 Chronic obstructive pulmonary disease with (acute) exacerbation (principal); I11.0 Hypertensive heart disease with heart failure; I50.32 Chronic diastolic (congestive) heart failure; I48.91 Unspecified atrial fibrillation; E11.9 Type 2 diabetes mellitus without complications; E78.5 Hyperlipidemia, unspecified; Z87.891 Personal history of nicotine dependence; Z99.81 Dependence on supplemental oxygen; Z86.711 Personal history of pulmonary embolism; Z86.718 Personal history of other venous thrombosis and embolism; Z79.01 Long term (current) use of anticoagulants; Z79.899 Other long term (current) drug therapy
CPT/HCPCS: 71045; 80048; 80076; 83605; 83880; 84484; 85025; 85610; 87040; 87428; 93005; 94002; 94640; 99285; A4216

== ENCOUNTER → 2023-06-28 | Outpatient (CLI) | payer MEDICARE, MEDICAID, SELFPAY ==
[2023-06-28 11:42] LABS: Absolute Lymphocyte Count 1.82 X10^3/uL (0.83-4.51); Absolute Neutrophil Count 7.3 X10^3/uL (2.0-7.7); Basophil# 0.04 X10^3/uL; Basophil% 0.4 % (0-1); Eosinophil# 0.19 X10^3/uL; Eosinophils% 1.9 % (0-5); Hemoglobin 10.9 g/dL (12.0-15.0); Lymphocyte # 1.82 X10^3/ul (0.83-4.51); Lymphocyte % 17.8 % (19-41); Mean Corp Hgb Conc 26.6 g/dL (32-36); Mean Corpuscular Hgb 24.3 pg (27.0-32.0); Mean Corpuscular Volume 91.3 fL (81-99); Mean Platelet Vol. 11.5 fl (6.2-12.0); Monocyte# 0.89 X10^3/uL; Monocyte% 8.7 % (0-10); NRBC Flagged by Analyzer 0 % (0-5); Neutrophil # 7.25 X10^3/uL (2.7-7.7); Neutrophil % 70.9 % (47-70); Platelet Count 243 K/mm3 (150-450); RBC Distribution Width CV 16.6 % (11.6-14.6); RBC Distribution Width SD 55.7 fl (35.1-43.9); Red Blood Count 4.49 M/mm3 (4.2-5.4); White Blood Count 10.2 K/mm3 (4.4-11.0)
[2023-06-28 11:56] LABS: BNP,B-Type NATRIURETIC PEPTIDE 85.1 pg/mL (0-100)
[2023-06-28 11:57] LABS: Anion Gap 1 (5-15); BUN 20 mg/dL (7-18); BUN/Creat Ratio 24.3 RATIO (10-20); Calcium,Total 9.2 mg/dL (8.5-10.1); Chloride 110 mmol/L (98-107); Creatinine, Serum 0.82 mg/dL (0.55-1.02); EST Glomerular Filtration Rate 71 mL/min (>60); Est Glom Filt Rate - Afr Amer 86 mL/min (>60); Glucose 90 mg/dL (74-106); Potassium 3.4 mmol/L (3.5-5.1); Sodium Level 144 mmol/L (136-145)
== END | disposition home or self-care (01) ==
LOC: PAVLAB 11:24
PROVIDERS: PCP Family Medicine; Referring Provider Internal Medicine Critical Care Medicine; Visit Provider Internal Medicine Critical Care Medicine
DX: I50.30 Unspecified diastolic (congestive) heart failure (principal); J96.11 Chronic respiratory failure with hypoxia
CPT/HCPCS: 36415; 80048; 83880; 85025

== ENCOUNTER 2023-09-11 09:29 | Emergency (ER) | payer MEDICARE, MEDICAID, SELFPAY ==
[2023-09-11 09:31] VITALS: BP 158/65; PULSE 62; RESP 20; TEMP 36.6; O2SAT 98; BMI 34.9
--- NOTE | 2023-09-11 09:46 | RAD_ITS ---
STUDY: X-RAY CHEST REASON FOR EXAM: Female, 77 years old. Chest pain TECHNIQUE: Single AP portable view of the chest. COMPARISON: Comparison is made with prior study dated May 02, 2023. FINDINGS: EKG electrodes are seen. Mild degree of vascular congestion and CHF. Stable increased markings at the lung bases suggestive of scarring. There is no demonstrated pleural abnormality. Normal size heart. A left-sided unipolar pacemaker is seen. Normal mediastinum and betty. Normal visualized pulmonary arteries. There is atherosclerotic calcification of the aortic arch with tortuosity. Normal visualized thoracic spine. Normal visualized ribs, clavicles, and shoulders. There is no demonstrated abnormality of the visualized soft tissue structures of the upper abdomen. RAD/Chest 1 View (Portable) IMPRESSION: Mild degree of vascular congestion and CHF. Stable mild scarring at the lung bases. Electronically Signed: Nathen Dickinson MD at 10:19 [facility] ,
--- NOTE | 2023-09-11 09:46 | EKG12_ITS ---
Test Reason : Blood Pressure : / mmHG Vent. Rate : 063 BPM Atrial Rate : 048 BPM P-R Int : 000 ms QRS Dur : 126 ms QT Int : 428 ms P-R-T Axes : 000 -65 099 degrees QTc Int : 437 ms Poor data quality, interpretation may be adversely affected Ventricular-paced rhythm with Premature supraventricular complexes Abnormal ECG Confirmed by SARAHY BHAT, KYLEIGH ([id number]), story editor JANEEN MAK ([id number]) on 09/18/2023 9:48:12 AM Referred By: Confirmed By:JERMAINE WEATHERS MD
--- NOTE | 2023-09-11 09:52 | ED.VIS.DYS ---
HPI History of Present Illness Chief Complaint: Shortness of Breath Informant: patient Onset/Context/Timing Onset: Days Context: gradual Timing: Continuous Current Severity: Mild Maximum Severity: Mild Worsened by: Lying flat Relieved by: Oxygen Associated Symptoms Negative for fever Chest Pain: Positive for None Narrative Narrative: 77-year-old female extensive past medical history A-fib, chronic anemia, COPD on 3 L of oxygen all time. DVT and PE on Coumadin for that in A-fib, CHF and hypertension. States she has been increasing short of breath over the last [facility] [address] [facility] while on CPAP her pulse ox was 70%. Patient states she is also had some diarrhea and chills. Denies hemoptysis. Denies a productive cough of phlegm. Denies a fever. PE Risk Factors: Positive for Recent immobilization; Negative for Cancer, OCP + Smoking + > 35, Recent surgery or Recent travel Prior similar symptoms: Yes Recent Illness/Hospitalization: No PFSH PFSH Medical History Abscess of left leg Anemia Arthritis Atrial fibrillation AV block, complete BiPAP (biphasic positive airway pressure) dependence Cardiology follow-up encounter Chronic anticoagulation COPD (chronic obstructive pulmonary disease) Diabetes Difficulty swallowing DVT (deep venous thrombosis) Dyslipidemia Elevated troponin Essential hypertension Essential hypertension Former smoker Former tobacco use Heart failure with preserved ejection fraction Hematoma Hematoma of left lower leg History of atrial fibrillation History of CHF (congestive heart failure) History of DVT (deep vein thrombosis) History of echocardiogram History of edema History of irregular heartbeat History of pacemaker History of pulmonary embolism History of pulmonary embolus (PE) History of recurrent deep vein thrombosis (DVT) History of steroid therapy Injury of back Low iron Non-smoker On home oxygen therapy Post-menopausal Presence of permanent cardiac pacemaker (~10/12/20) Pulmonary embolism Pulmonary HTN Shortness of breath on exertion Skin necrosis Sleep apnea Tachycardia-bradycardia syndrome Uses wheelchair Venous insufficiency Walker as ambulation aid Wears glasses Wound abscess Home Medications omeprazole 20 mg tablet,delayed release 20 mg PO DAILY GERD 01/17/19 [History Last Taken 09/01/20 10:44] sennosides 8.6 mg-docusate sodium 50 mg tablet 2 tab PO QHS CONSTIPATION 08/22/19 [History Last Taken 08/31/20 20:26] Lactobacillus acidophilus 1 cap PO DAILY IMMUNE [facility] 08/20/20 [History Last Taken 09/01/20 10:42] acetazolamide 250 mg tablet 250 mg PO BID EDEMA 08/20/20 [History Last Taken 09/01/20 08:00] albuterol sulfate 2.5 mg/3 mL (0.083 %) solution for nebulization 2.5 mg (3 mL) inhalation Q2H PRN PRN Shortness of Breath/Wheezing 09/05/20 [Rx Last Taken Unknown] docusate sodium 100 mg capsule 100 mg PO BID 09/05/20 [Rx Last Taken Unknown] ondansetron HCl 4 mg tablet 4 mg PO Q4H PRN Nausea 07/14/21 [History Last Taken Unknown] vit C 250 mg-vit E 90 mg-zinc 40 mg-copper 1 [id number]-gpsydc capsule (PreserVision AREDS-2) 1 tab PO BID 07/14/21 [History Last Taken Unknown] furosemide 20 mg tablet 20 mg PO DAILY 01/14/22 [History Last Taken Unknown] potassium chloride 20 mEq tablet,extended release 20 meq PO DAILY 01/14/22 [History Last Taken Unknown] acetaminophen 500 mg capsule 1,000 mg PO Q8H PRN Pain 04/14/22 [History Last Taken Unknown] albuterol sulfate 90 mcg/actuation aerosol inhaler (Ventolin HFA) 2 puff inhalation Q4H PRN PRN Wheezing ##1 04/14/22 [Rx Last Taken Unknown] polyethylene glycol 3350 17 gram oral powder packet (Miralax) 17 g PO DAILY 08/11/22 [History Last Taken Unknown] ipratropium 0.5 mg-albuterol 3 mg (2.5 mg base)/3 mL nebulization soln 3 ml inhalation Q4H PRN Wheezing 08/20/22 [History Last Taken Unknown] lorazepam 0.5 mg tablet 0.5 mg PO QHS ANXIETY #30 tabs 08/20/22 [Rx Last Taken Unknown] budesonide 1 mg/2 mL suspension for nebulization 1 mg (2 mL) inhalation BID #60 mL 10/21/22 [Rx Last Taken Unknown] calcium carbonate 600 mg calcium (1,500 mg) tablet 600 mg PO DAILY 12/31/22 [History Last Taken Unknown] cholecalciferol (vitamin D3) 50 mcg (2,000 unit) tablet (Vitamin D3) 50 mcg PO DAILY 12/31/22 [History Last Taken Unknown] citalopram 20 mg tablet 20 mg PO DAILY 12/31/22 [History Last Taken Unknown] cyanocobalamin (vitamin B-12) 500 mcg tablet 500 mcg PO DAILY 12/31/22 [History Last Taken Unknown] dextromethorphan HBr 10 mg/5 mL oral liquid 10 mg PO Q6H PRN Cough 12/31/22 [History Last Taken Unknown] ipratropium 0.5 mg-albuterol 3 mg (2.5 mg base)/3 mL nebulization soln 3 ml inhalation TID 12/31/22 [History Last Taken Unknown] phenylephrine-shark liver oil-mineral oil-petrolatum rectal ointment (Hemorrhoidal ointment) 1 applic [place] Q6H PRN hemorrhoids 12/31/22 [History Last Taken Unknown] dextrose 40 % oral gel 15 g PO Q15M PRN hypoglycemia 02/08/23 [History Last Taken Unknown] glucagon 1 mg solution for injection (Glucagon Emergency Kit) 1 mg subcut Q20M PRN hypoglycem 02/08/23 [History Last Taken Unknown] gabapentin 300 mg capsule 300 mg PO QHS 03/20/23 [History Last Taken Unknown] warfarin 3 mg tablet 3 mg PO SUTUTH 03/20/23 [History Last Taken Unknown] azithromycin 250 mg tablet 250 mg PO QMWF #36 tabs 04/19/23 [Rx Last Taken Unknown] prednisone 10 mg tablet 10 mg PO DAILY #90 tabs 04/19/23 [Rx Last Taken Unknown] warfarin 4 mg tablet 4 mg PO MOWEFR 06/28/23 [History Last Taken Unknown] prednisone 20 mg tablet 40 mg (2 x 20 mg) PO DAILY 7 days #14 tabs 09/11/23 [Rx Last Taken Unknown] Allergy/AdvReac Type Severity Reaction Status Date / Time amlodipine besylate AdvReac ANKLE AND Verified 09/11/23 09:29 [From [facility]] LEG EDEMA codeine AdvReac MENTAL Verified 09/11/23 09:29 STATUS CHANGE lisinopril AdvReac COUGH Verified 09/11/23 09:29 Family History Sister Heart disease Surgical History History of cholecystectomy History of total hysterectomy Hx of atrioventricular node ablation tailbone surgery Social History household members: none housing: residential Smoking Status: Former smoker how long ago did patient quit smoking: Approxiomately 2003 alcohol intake: never substance use type: does not use caffeine: No ROS ROS ED ROS Narrative Shortness of breath. Diarrhea. Review of Systems ROS Unobtainable: Denies due to encephalopathy Constitutional Constitutional ED: Reports chills; Denies fever(s) Eyes Eyes: Denies blurry vision ENT ENT ED: Denies ear pain Cardiovascular Cardiovascular: Reports orthopnea; Denies chest pain Respiratory/Chest Respiratory/Chest: Reports dyspnea and orthopnea; Denies cough Gastrointestinal Gastrointestinal: Reports diarrhea; Denies abdominal pain, melena, nausea or vomiting Genitourinary Genitourinary ED: Denies dysuria or hematuria Musculoskeletal Musculoskeletal: Denies arthralgias Integumentary Denies abscess Neurologic Neurologic: Denies headache(s) Psychiatric Psychiatric: Denies anxiety Endocrine Endocrinology: Denies cold intolerance Hematologic/Lymphatic Hematologic/Lymphatic: Reports easy bruising; Denies lymphadenopathy Allergic/Immunologic Allergic/Immunologic ED: Denies mouth swelling, tongue swelling or urticaria EXAM Physical Exam Narrative Exam Narrative: 77-year-old female on oxygen. Vital signs are stable afebrile. On 3 L she is 98% no hypoxia while on her O2. That is her baseline oxygen. HEENT exam give very advised. No trauma. Dry mucous membranes. Neck nontender no JVD. Lungs no rales rhonchi or wheezing. Heart rate 60. No murmur. Chest wall nontender. Abdomen soft nontender. Moving all 4 extremities. Trace edema both lower extremities. Calves are nontender without cords. Neurologically she is awake alert. Answer questions following commands. Appears generally weak. Const Vital Signs: 09/11/23 09:31 09/11/23 09:55 09/11/23 09:55 Temperature 97.9 F Temperature Source Oral Pulse Rate 62 Respiratory Rate 20 H Respiratory Effort Short of Breath Respiratory Depth Deep Respiratory Pattern Tachypnea Blood Pressure 158/65 H Blood Pressure Mean 96 Pulse Ox 98 100 Oxygen Delivery Method Nasal Cannula Nasal Cannula Nasal Cannula Oxygen Flow Rate (L/min) 3 4 4 Positive well nourished and well developed; Negative for cachectic or contractures General Appearance ED: well developed and NAD; Negative for cachectic, contractures or pallor Nutritional Appearance: Negative for cachectic HEENT Reports dry mucous membranes; Denies moist mucous membranes atraumatic; Negative for trauma or tenderness Mouth ED: Yes dry mucous membranes Mouth: dry mucous membranes Eyes PERRL and EOMs intact bilaterally General Eye ED: Negative for pale conjunctiva or scleral icterus Neck no lymphadenopathy, supple, no meningeal signs and no JVD Lymph Lymphatic: Negative for other Chest Wall Chest: Negative for other Resp normal respiratory effort and clear to auscultation bilaterally Effort and Inspection: Negative for pain with movement Auscultation: Negative for rales, rhonchi or wheezes Cardio regular rate Rate: Negative for bradycardia or tachycardic GI non-tender, non-distended and no masses Inspection: Negative for other Auscultation: normoactive bowel sounds Palpation: soft; Negative for tender or guarding Back/Spine no CVA tenderness and normal to inspection General Back: Negative for CVA tenderness or tenderness Extremity Negative for normal to inspection Extremity Narrative: Trace edema bilaterally. General Extremety ED: Yes edema; Negative for tenderness General Extremity: edema Neuro oriented x3 and CN's II-XII intact bilaterally Sensorium / Orientation: alert, oriented to person, oriented to place and oriented to time; Negative for orientation impaired, confused or lethargic Motor Exam: general weakness Psych mental status grossly normal Attitude: No agitated Mood & Affect: Negative for depressed Thought Process: normal thought process Skin no wounds General Skin Exam: Negative for jaundice or pallor Lesions: no lesions Rashes: no rashes Trauma: Negative for abrasion or laceration MDM MDM MDM Narrative Medical decision making narrative: 77-year-old female extensive past medical history with increasing shortness of breath over last 3 days. History of chronic O2 use. 3 L. Repeat exam at 1120 patient is resting comfortably currently her pulse ox is 99% on oxygen. She and I went over her test results. She will be given a DuoNeb aerosol here and Solu-Medrol. She will be discharged back to [facility] on prednisone 40 mg a day for 1 week. I think is secondary to a COPD flare. There is no pneumonia. She is supratherapeutic anticoagulated with an INR 3.4 I do not think is secondary to a blood clot or an acute cardiac issue. History & Record Review Discussion w/independent historian: Patient Additional record(s) reviewed:: Prior inpatient record, Prior outpatient record, Prior ED visit and Prior labs Lab Data Attestation: I reviewed the patient's lab results. Lab results narrative: CBC shows a white count of 14.7. H&H 9.9 and 36.9. Platelets 261. Patient is on Coumadin her INR is 3.4. Electrolytes show a gap of 2 BUN 25 creatinine 0.6. Glucose 120. Troponin 37. BNP 210. Labs: Laboratory Results - last 24 hr 09/11/23 10:00 WBC 14.7 H RBC 4.03 L Hgb 9.9 L Hct 36.9 L MCV 91.6 MCH 24.6 L MCHC 26.8 L RDW Std Deviation 61.0 H RDW Coeff of Laura 18.2 H Plt Count 261 MPV 12.9 H Immature Gran % (Auto) 0.600 Neut % (Auto) 76.9 H Lymph % (Auto) 13.8 L Grayson % (Auto) 7.7 Eos % (Auto) 0.8 Baso % (Auto) 0.2 Absolute Neuts (auto) 11.3 H Absolute Lymphs (auto) 2.02 Nucleated RBC % 0.1 PT 34.2 H INR 3.4 Sodium 145 Potassium 3.9 Chloride 108 H Carbon Dioxide 35.0 H Anion Gap 2 L BUN 25 H Creatinine 0.63 Estim Creat Clear Calc 65.10 Est GFR (MDRD) Af Amer 116 Est GFR (MDRD) Non-Af 96 BUN/Creatinine Ratio 39.5 H Glucose 120 H Calcium 8.9 Troponin I High Sens 37 B-Natriuretic Peptide 210.6 H Radiography Chest X-Ray - ED: 1 View, Read by ED Physician, Read by Radiologist, Heart, Lungs, Mediastinum, Bony Structures, Chronic Changes and CHF Diagnostic Testing: Clinical Impression(s) from Imaging Studies Chest X-Ray 09/11/23 09:46 IMPRESSION: Mild degree of vascular congestion and CHF. Stable mild scarring at the lung bases. Electronically Signed: Nathen Dickinson MD at 10:19 EST , Chest x-ray, portable, single view interpreted by myself and the radiologist shows mild pulmonary edema. Left-sided pacemaker. Normal cardiac silhouette. Rhythm Strip Rhythm Strip: PACED Rate: 63 Ectopy: None EKG Initial EKG: Attestation: I personally reviewed and interpreted this EKG as follows: Interpretation: No Acute Injury Pattern and Paced Comments: Paced rhythm rate is 63. No acute signs of ST elevation. Discharge Plan Triage Chief Complaint: Shortness of Breath ED Provider: Nilay Bowen Dx/Rx/DC Orders Clinical Impression: COPD (chronic obstructive pulmonary disease), Chronic anticoagulation, History of pacemaker, History of pulmonary embolism, Chronic anemia Instructions: ED COPD Flare Prescriptions: New prednisone 20 mg tablet 40 mg PO DAILY 7 Days Qty: 14 0RF Rx Instructions: Start prednisone tomorrow 09/12/2023 she was given a dose already today in the emergency department of steroids. No Action furosemide 20 mg tablet 20 mg PO DAILY potassium chloride 20 mEq tablet extended release 20 meq PO DAILY budesonide 1 mg/2 mL suspension for nebulization 1 mg inhalation BID Qty: 60 6RF Glucagon Emergency Kit (human) 1 mg recon soln 1 mg subcut Q20M PRN (Reason: hypoglycem) Rx Instructions: until target blood sugar attained dextrose 40 % gel 15 g PO Q15M PRN (Reason: hypoglycemia) Rx Instructions: until symptoms of low blood sugar are controlled azithromycin 250 mg tablet 250 mg PO QMWF Qty: 36 0RF Rx Instructions: Mon, and monday prednisone 10 mg tablet 10 mg PO DAILY Qty: 90 3RF omeprazole 20 MG tablet,delayed release (DR/EC) 20 mg PO DAILY sennosides-docusate sodium 1 EACH tablet 2 tab PO QHS acetazolamide 250 MG tablet 250 mg PO BID Lactobacillus acidophilus 1 EACH capsule 1 cap PO DAILY albuterol sulfate 2.5 MG/3 ML solution for nebulization 2.5 mg INHALATION Q2H PRN PRN (Reason: Shortness of Breath/Wheezing) 0RF docusate sodium 100 MG capsule 100 mg PO BID 0RF ondansetron HCl 4 mg Tablet 4 mg PO Q4H PRN (Reason: Nausea) PreserVision AREDS-2 250-90-40-1 mg Capsule 1 tab PO BID acetaminophen 500 mg Capsule 1,000 mg PO Q8H PRN (Reason: Pain) albuterol sulfate [Ventolin HFA] 90 mcg/actuation HFA aerosol inhaler 2 puff inhalation Q4H PRN PRN (Reason: Wheezing) Qty: 1 0RF warfarin 4 mg tablet 4 mg PO MOWEFR polyethylene glycol 3350 [Miralax] 17 gram Powder In Packet 17 g PO DAILY ipratropium-albuterol 0.5 mg-3 mg(2.5 mg base)/3 mL Solution For Nebulization 3 ml INHALATION Q4H PRN (Reason: Wheezing) lorazepam 0.5 mg tablet 0.5 mg PO QHS Qty: 30 0RF ipratropium-albuterol 0.5 mg-3 mg(2.5 mg base)/3 mL Solution For Nebulization 3 ml INHALATION TID dextromethorphan HBr 10 mg/5 mL Liquid 10 mg PO Q6H PRN (Reason: Cough) calcium carbonate 600 mg calcium (1,500 mg) Tablet 600 mg PO DAILY citalopram 20 mg tablet 20 mg PO DAILY cyanocobalamin (vitamin B-12) 500 mcg Tablet 500 mcg PO DAILY Hemorrhoidal Ointment 1 applic [place] Q6H PRN (Reason: hemorrhoids) cholecalciferol (vitamin D3) [Vitamin D3] 50 mcg (2,000 unit) Tablet 50 mcg PO DAILY warfarin 3 mg tablet 3 mg PO SUTUTH gabapentin 300 mg capsule 300 mg PO QHS Primary Care Provider: Tor Lucia Referrals: Tor Lucia MD [Primary Care Provider] - As soon as possible Activity Restrictions/Additional Instructions: Have her re-evaluated by Dr. Tor Lucia. This seems to be a COPD flare. Prednisone daily starting tomorrow. Aerosol treatments as needed every 2-4 hours. Continue your current medications. Today her INR or Coumadin level was 3.4. That will need to be rechecked within the next week. Disposition Disposition: Home, Self Care
[2023-09-11 09:55] VITALS: O2SAT 100
[2023-09-11 10:13] LABS: Absolute Lymphocyte Count 2.02 X10^3/uL (0.83-4.51); Absolute Neutrophil Count 11.3 X10^3/uL (2.0-7.7); Basophil# 0.03 X10^3/uL; Basophil% 0.2 % (0-1); Eosinophil# 0.12 X10^3/uL; Eosinophils% 0.8 % (0-5); Hematocrit 36.9 % (37-47); Hemoglobin 9.9 g/dL (12.0-15.0); Lymphocyte # 2.02 X10^3/ul (0.83-4.51); Lymphocyte % 13.8 % (19-41); Mean Corp Hgb Conc 26.8 g/dL (32-36); Mean Corpuscular Hgb 24.6 pg (27.0-32.0); Mean Corpuscular Volume 91.6 fL (81-99); Mean Platelet Vol. 12.9 fl (6.2-12.0); Monocyte# 1.13 X10^3/uL; Monocyte% 7.7 % (0-10); NRBC Flagged by Analyzer 0.1 % (0-5); Neutrophil # 11.28 X10^3/uL (2.7-7.7); Neutrophil % 76.9 % (47-70); Platelet Count 261 K/mm3 (150-450); RBC Distribution Width CV 18.2 % (11.6-14.6); Red Blood Count 4.03 M/mm3 (4.2-5.4); White Blood Count 14.7 K/mm3 (4.4-11.0)
[2023-09-11 10:27] LABS: BNP,B-Type NATRIURETIC PEPTIDE 210.6 pg/mL (0-100)
[2023-09-11 10:28] LABS: International Normalized Ratio 3.4; Prothrombin Time (Protime)PT. 34.2 SECONDS (11.7-14.9)
[2023-09-11 10:31] LABS: Anion Gap 2 (5-15); BUN 25 mg/dL (7-18); BUN/Creat Ratio 39.5 RATIO (10-20); Calcium,Total 8.9 mg/dL (8.5-10.1); Chloride 108 mmol/L (98-107); Creatinine, Serum 0.63 mg/dL (0.55-1.02); EST Glomerular Filtration Rate 96 mL/min (>60); Est Glom Filt Rate - Afr Amer 116 mL/min (>60); Glucose 120 mg/dL (74-106); Potassium 3.9 mmol/L (3.5-5.1); Sodium Level 145 mmol/L (136-145); Troponin-I HS 37 pg/mL (3.0-54.0)
[2023-09-11] MEDS: Ipratropium/Albuterol Sulfate 3 ML AMPUL.NEB INHALATION (11:29)
[2023-09-11 11:32] VITALS: PULSE 60; RESP 30
[2023-09-11] MEDS: MethylPREDNISolone 125 MG/2 ML Vial IV (11:45)
[2023-09-11 11:47] VITALS: BP 180/75; PULSE 60; RESP 28; O2SAT 90
--- NOTE | 2023-09-11 11:54 | NURSING ---
CALLED [facility], ETA IS 90 MIN
[2023-09-11 12:08] VITALS: BP 178/76; PULSE 60; RESP 27; TEMP 36.9; O2SAT 92
--- NOTE | 2023-09-11 12:31 | ED.RN ---
This RN called report back to the [facility].
== END 2023-09-11 12:35 | disposition skilled nursing facility (03) ==
PROVIDERS: Emergency Provider Emergency Medicine; PCP Family Medicine; Visit Provider Emergency Medicine
DX: J44.9 Chronic obstructive pulmonary disease, unspecified (principal); I11.0 Hypertensive heart disease with heart failure; I50.32 Chronic diastolic (congestive) heart failure; I48.91 Unspecified atrial fibrillation; D64.9 Anemia, unspecified; Z95.0 Presence of cardiac pacemaker; Z99.81 Dependence on supplemental oxygen; Z79.01 Long term (current) use of anticoagulants; Z79.51 Long term (current) use of inhaled steroids; Z86.711 Personal history of pulmonary embolism; Z86.718 Personal history of other venous thrombosis and embolism; Z87.891 Personal history of nicotine dependence
CPT/HCPCS: 71045; 80048; 83880; 84484; 85025; 85610; 93005; 94640; A4216

== ENCOUNTER 2023-09-11 23:17 | Inpatient (IN) | payer MEDICARE, MEDICAID, SELFPAY ==
[2023-09-11 23:18] VITALS: BP 161/66; PULSE 60; RESP 23; TEMP 36.9; O2SAT 98; BMI 33.8
[2023-09-11 23:23] VITALS: PULSE 64; RESP 14; RESP 24; O2SAT 97
[2023-09-11 23:30] VITALS: O2SAT 96
--- NOTE | 2023-09-11 23:39 | EKG12_ITS ---
Test Reason : SOB Blood Pressure : / mmHG Vent. Rate : 060 BPM Atrial Rate : 083 BPM P-R Int : 000 ms QRS Dur : 124 ms QT Int : 432 ms P-R-T Axes : 000 -61 097 degrees QTc Int : 432 ms Ventricular-paced rhythm Abnormal ECG Confirmed by SARAHY BHAT, KYLEIGH ([id number]), publications editor JANEEN MAK ([id number]) on 09/18/2023 9:59:50 AM Referred By: Confirmed By:JERMAINE WEATHERS MD
--- NOTE | 2023-09-11 23:39 | CT_ITS ---
INDICATION: Altered mental status EXAMINATION: CT Head or Brain W/O Contrast Injection TECHNIQUE: Multiple axial images were obtained of the head without intravenous contrast. A radiation dose optimization technique was used for this scan. IV Contrast dosage and agent: None. COMPARISON: Head CT from 09/29/2020 FINDINGS: BRAIN PARENCHYMA: No intra- or extra-axial hemorrhage. No evidence of acute major territorial infarct. No intracranial mass or mass effect. Mild, chronic deep cerebral white matter lucencies are present. Chronic cerebral involutional changes. CSF SPACES: Prominent cerebral sulci and extraaxial spaces secondary to involutional changes. No hydrocephalus. Basal cisterns are patent. Intracranial atherosclerotic calcifications. CALVARIUM, SKULL BASE, PARANASAL SINUSES AND MASTOID AIR CELLS: Calvarium is intact. Partial opacification left sphenoid sinus. Mastoid air cells are well-pneumatized. ORBITS: Postop cataract surgery bilaterally. CT/Brain/Head without Contrast IMPRESSION: Chronic involutional and white matter changes. No evidence of acute intracranial abnormality. Left sphenoid sinus disease. Electronically Signed: Reji Rosario MD at 0:46 EST ,
--- NOTE | 2023-09-11 23:44 | EDS_ITS ---
HPI History of Present Illness Chief Complaint: Alt LOC Informant: parent Limited: other (AMS) Narrative Narrative: Patient is a 77-year-old female with history of COPD (on 2 to 3 L at baseline), proximal atrial fibrillation on Coumadin, pacemaker, hypertension and ANKUSH (compliant with her BiPAP at the [facility]) presenting with daughter for increased somnolence. Patient was actually seen earlier today in the ER for shortness of breath. Was diagnosed with a COPD exacerbation discharged back to the [facility] she does not have any increased O2 demands. As the day has progressed she is just been more sleepy and hard to arouse. Apparently patient was 85% on 5 L of CPAP at longterm and is not been eating or drinking today. Was transferred via EMS to our facility and immediately put on noninvasive ventilation. Daughter notes that she normally is alert and talking. She confirms she is a DNR CCA with no intubation. [facility] Medical History Abscess of left leg Anemia Arthritis Atrial fibrillation AV block, complete BiPAP (biphasic positive airway pressure) dependence Cardiology follow-up encounter Chronic anticoagulation COPD (chronic obstructive pulmonary disease) Diabetes Difficulty swallowing DVT (deep venous thrombosis) Dyslipidemia Elevated troponin Essential hypertension Essential hypertension Former smoker Former tobacco use Heart failure with preserved ejection fraction Hematoma Hematoma of left lower leg History of atrial fibrillation History of CHF (congestive heart failure) History of DVT (deep vein thrombosis) History of echocardiogram History of edema History of irregular heartbeat History of pacemaker History of pulmonary embolism History of pulmonary embolus (PE) History of recurrent deep vein thrombosis (DVT) History of steroid therapy Injury of back Low iron Non-smoker On home oxygen therapy Post-menopausal Presence of permanent cardiac pacemaker (~10/12/20) Pulmonary embolism Pulmonary HTN Shortness of breath on exertion Skin necrosis Sleep apnea Tachycardia-bradycardia syndrome Uses wheelchair Venous insufficiency Walker as ambulation aid Wears glasses Wound abscess Home Medications omeprazole 20 mg tablet,delayed release 20 mg PO DAILY GERD 01/17/19 [History Last Taken 09/01/20 10:44] Lactobacillus acidophilus 1 cap PO DAILY [facility] 08/20/20 [History Last Taken 09/01/20 10:42] acetazolamide 250 mg tablet 250 mg PO BID EDEMA 08/20/20 [History Last Taken 09/01/20 08:00] albuterol sulfate 2.5 mg/3 mL (0.083 %) solution for nebulization 2.5 mg (3 mL) inhalation Q2H PRN PRN Shortness of Breath/Wheezing 09/05/20 [Rx Last Taken Unknown] docusate sodium 100 mg capsule 100 mg PO BID 09/05/20 [Rx Last Taken Unknown] ondansetron HCl 4 mg tablet 4 mg PO Q4H PRN Nausea 07/14/21 [History Last Taken Unknown] vit C 250 mg-vit E 90 mg-zinc 40 mg-copper 1 mi-[id number]-cpyntu capsule (PreserVision AREDS-2) 1 tab PO BID 07/14/21 [History Last Taken Unknown] furosemide 20 mg tablet 20 mg PO DAILY 01/14/22 [History Last Taken Unknown] potassium chloride 20 mEq tablet,extended release 20 meq PO DAILY 01/14/22 [History Last Taken Unknown] acetaminophen 500 mg capsule 1,000 mg PO Q8H PRN Pain 04/14/22 [History Last Taken Unknown] albuterol sulfate 90 mcg/actuation aerosol inhaler (Ventolin HFA) 2 puff inhalation Q4H PRN PRN Wheezing ##1 04/14/22 [Rx Last Taken Unknown] polyethylene glycol 3350 17 gram oral powder packet (Miralax) 17 g PO DAILY 08/11/22 [History Last Taken Unknown] ipratropium 0.5 mg-albuterol 3 mg (2.5 mg base)/3 mL nebulization soln 3 ml inhalation Q4H PRN Wheezing 08/20/22 [History Last Taken Unknown] budesonide 1 mg/2 mL suspension for nebulization 1 mg (2 mL) inhalation BID #60 mL 10/21/22 [Rx Last Taken Unknown] calcium carbonate 600 mg calcium (1,500 mg) tablet 600 mg PO DAILY 12/31/22 [History Last Taken Unknown] cholecalciferol (vitamin D3) 50 mcg (2,000 unit) tablet (Vitamin D3) 50 mcg PO DAILY 12/31/22 [History Last Taken Unknown] citalopram 20 mg tablet 20 mg PO DAILY 12/31/22 [History Last Taken Unknown] cyanocobalamin (vitamin B-12) 500 mcg tablet 500 mcg PO DAILY 12/31/22 [History Last Taken Unknown] dextromethorphan HBr 10 mg/5 mL oral liquid 10 mg PO Q6H PRN Cough 12/31/22 [History Last Taken Unknown] ipratropium 0.5 mg-albuterol 3 mg (2.5 mg base)/3 mL nebulization soln 3 ml inhalation TID 12/31/22 [History Last Taken Unknown] phenylephrine-shark liver oil-mineral oil-petrolatum rectal ointment (Hemorrhoidal ointment) 1 applic MI Q6H PRN hemorrhoids 12/31/22 [History Last Taken Unknown] dextrose 40 % oral gel 15 g PO Q15M PRN hypoglycemia 02/08/23 [History Last Taken Unknown] glucagon 1 mg solution for injection (Glucagon Emergency Kit) 1 mg subcut Q20M PRN hypoglycem 02/08/23 [History Last Taken Unknown] gabapentin 300 mg capsule 300 mg PO QHS 03/20/23 [History Last Taken Unknown] warfarin 3 mg tablet 3 mg PO SUTUTH 03/20/23 [History Last Taken Unknown] azithromycin 250 mg tablet 250 mg PO QMWF #36 tabs 04/19/23 [Rx Last Taken Unknown] prednisone 10 mg tablet 10 mg PO DAILY #90 tabs 04/19/23 [Rx Last Taken Unknown] warfarin 4 mg tablet 4 mg PO MOWEFR 06/28/23 [History Last Taken Unknown] lorazepam 0.5 mg tablet 0.5 mg PO Q12H ANXIETY 09/11/23 [History Last Taken Unknown] prednisone 20 mg tablet 40 mg (2 x 20 mg) PO DAILY 7 days #14 tabs 09/11/23 [Rx Last Taken Unknown] Allergy/AdvReac Type Severity Reaction Status Date / Time amlodipine besylate AdvReac ANKLE AND Verified 09/11/23 23:18 [From [facility]] LEG EDEMA codeine AdvReac MENTAL Verified 09/11/23 23:18 STATUS CHANGE lisinopril AdvReac COUGH Verified 09/11/23 23:18 Family History Sister Heart disease Surgical History History of cholecystectomy History of total hysterectomy Hx of atrioventricular node ablation tailbone surgery Social History household members: none housing: longterm Smoking Status: Former smoker how long ago did patient quit smoking: Approxiomately 2003 alcohol intake: never substance use type: does not use caffeine: No ROS ROS ED Review of Systems ROS Unobtainable: due to encephalopathy EXAM Physical Exam Const Vital Signs: 09/11/23 23:18 09/11/23 23:30 09/11/23 23:54 Temperature 98.5 F Temperature Source Temporal Pulse Rate 60 60 Respiratory Rate 23 H 22 H Respiratory Pattern Blood Pressure 161/66 H Blood Pressure Mean 97 Pulse Ox 98 96 Oxygen Delivery Method Non-Rebreather Bi-pap Oxygen Flow Rate (L/min) 15 Fraction of Inspired Oxygen (FIO2) 09/11/23 23:54 09/11/23 23:23 09/12/23 00:22 Temperature Temperature Source Pulse Rate 60 64 Respiratory Rate 22 H 24 H Respiratory Pattern Irregular Blood Pressure Blood Pressure Mean Pulse Ox 96 97 Oxygen Delivery Method Oxygen Flow Rate (L/min) Fraction of Inspired Oxygen (FIO2) 40 40 35 09/11/23 23:39 09/12/23 01:01 09/12/23 01:24 Temperature Temperature Source Pulse Rate 60 60 Respiratory Rate 21 H Respiratory Pattern Blood Pressure 134/65 H 152/69 H Blood Pressure Mean 88 96 Pulse Ox 94 95 Oxygen Delivery Method Bi-pap Bi-pap Bi-pap Oxygen Flow Rate (L/min) Fraction of Inspired Oxygen (FIO2) 09/12/23 02:21 Temperature Temperature Source Pulse Rate 60 Respiratory Rate 23 H Respiratory Pattern Blood Pressure 149/72 H Blood Pressure Mean 97 Pulse Ox 94 Oxygen Delivery Method Bi-pap Oxygen Flow Rate (L/min) Fraction of Inspired Oxygen (FIO2) Positive well nourished and well developed Constitutional Narrative: Somnolent, opens eyes and answers yes/no questions with tactile stimuli General Appearance ED: well developed HEENT Reports moist mucous membranes Negative for trauma Eyes PERRL and EOMs intact bilaterally Neck supple and no JVD Chest Wall inspection of chest normal Resp Resp Narrative: Mild tachypnea, good air movement with BiPAP. No significant wheezing or crackles appreciated Cardio regular rate, regular rhythm and no murmurs GI normal to inspection, nondistended, normoactive bowel sounds and non-tender Extremity Extremity Narrative: Mild pretibial edema as well as edema of the left upper extremity, pitting General Extremety ED: Yes edema; Negative for tenderness General Extremity: edema Neuro Sensorium / Orientation: stuporous Motor Exam: general weakness Skin no rashes or lesions noted Skin Narrative: Some layering ecchymosis of the left ankle, this is a new per the daughter over the last week MDM MDM MDM Narrative Medical decision making narrative: Patient evaluated for altered mental status. As placed on BiPAP on arrival. Concern for decompensated respiratory failure, hypercapnia and ABG is obtained. Differential also includes pulmonary edema, COPD exacerbation, fluid overload, intracranial hemorrhage or electrolyte abnormality. ABG is obtained which is consistent with acute on chronic hypercapnic respiratory failure. Suspect patient's had worsening hypercapnia throughout the day which is because her somnolence. She is given Solu-Medrol, azithromycin (for presumed COPD exacerbation) and aerosols in the emergency room. Remains hemodynamic stable on BiPAP. Patient had her INR checked earlier today which was 3.4 which I do not think that needs repeated emergently. CBC is stable with a chronic anemia that is stable with hemoglobin 9.7 and resolved leukocytosis. CMP shows a mild hyperglycemia with a glucose of 168 and elevated bicarb of 33 consistent with some chronic CO2 retention but no acute abnormalities noted. High sensitive troponin has increased slightly to 66, I suspect from the strain associated with her respiratory presentation. BNP earlier today was reviewed and was 210, I do not think this needs repeated and patient's presentation is not consistent with flash pulmonary edema. Chest x-ray reviewed by myself as well as radiology does not show any acute process. Patient is some bruising to her left ankle and an x-ray of this is obtained, again reviewed by myself as well as radiology which does not show any acute fracture or dislocation. CT of the brain does not show any acute process to explain her altered mental status. Patient be admitted to the ICU after discussion with hospitalist for acute cephalopathy likely secondary to hypercapnia from acute on chronic respiratory failure/COPD exacerbation. COVID, flu/RSV swab is negative. History & Record Review Discussion w/independent historian: Family Additional record(s) reviewed:: Prior outpatient record (long-term [facility] ) Lab Data Attestation: I reviewed the patient's lab results. Labs: Laboratory Results - last 24 hr 09/11/23 09/11/23 23:34 23:49 WBC 11.0 RBC 4.09 L Hgb 9.9 L Hct 37.9 MCV 92.7 MCH 24.2 L MCHC 26.1 L RDW Std Deviation 62.9 H RDW Coeff of Laura 18.6 H Plt Count 238 MPV 12.8 H Immature Gran % (Auto) 0.800 Neut % (Auto) 93.0 H Lymph % (Auto) 4.6 L Haakon % (Auto) 1.5 Eos % (Auto) 0.0 Baso % (Auto) 0.1 Absolute Neuts (auto) 10.2 H Absolute Lymphs (auto) 0.50 L Nucleated RBC % 0.4 Sodium 145 Potassium 4.7 Chloride 110 H Carbon Dioxide 33.0 H Anion Gap 2 L BUN 36 H Creatinine 0.80 Estim Creat Clear Calc 64.02 Est GFR (MDRD) Af Amer 88 Est GFR (MDRD) Non-Af 73 BUN/Creatinine Ratio 44.8 H Glucose 168 H Lactic Acid 0.8 Calcium 9.3 Troponin I High Sens 66 H ABG Data ABG results: ABG 09/11/23 23:50 Specimen Type ART Sample Site L Radial pH 7.18 L* Bicarbonate Actual 35.0 H Total CO2 38 Base Excess 7 H O2 Saturation 91 L O2 % 40.0 ABG pCO2 94.3 H* ABG pO2 82 Mj Test Positive O2 Delivery Device BiPAP Vent Mode Not entered Crit Call To/Read Back Yes Blood Gas Notified Whom [facility] Blood Gas Notified Time 23:52:16 Clinical Comments bipap 14/8 Radiography Chest X-Ray - ED: 1 View, Read by ED Physician, Read by Radiologist and No Acute Disease Diagnostic Testing: Clinical Impression(s) from Imaging Studies Brain CT 09/11/23 23:39 IMPRESSION: Chronic involutional and white matter changes. No evidence of acute intracranial abnormality. Left sphenoid sinus disease. Electronically Signed: Reji Rosario MD at 0:46 EST , Ankle X-Ray 09/12/23 00:00 IMPRESSION: No significant injury Electronically Signed: Reji Rosario MD at 0:50 EST , Chest X-Ray 09/12/23 00:00 IMPRESSION: Bibasilar scarring and/or atelectasis Electronically Signed: Reji Rosario MD at 1:03 EST , Rhythm Strip Rhythm Strip: Paced Rate: 60 Ectopy: None EKG Initial EKG: Attestation: I personally reviewed and interpreted this EKG as follows: Interpretation: Paced Comments: Ventricular paced rhythm at a rate of 60 bpm with no ectopy Appears to be underlying atrial fibrillation Differential Diagnosis Chest pain/SOB: pulmonary embolism Reason(s) PE less likely: Positive for patient taking oral anticoagulants, ACS ACS: Positive for EKG without ischemia and history not suggestive of ischemia pain, pneumothorax Reason(s) pneumothorax less likely: Positive for bilateral breath sounds and 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 withhout PTX and pneumonia Reason(s) pneumonia less likely: Positive for no infiltrate on CXR, no elevation in WBC count and no noted fever Management Discussion w/another healthcare provider: Hospitalist Critical Care Time Critical Care Time: Yes Critical care time (excluding procedures): 30-74 minutes (36), Discussing w/Patient &/or Family/Bridge Construction Inspector and Arranging Admission or Transfer Discharge Plan Dx/Rx/DC Orders Clinical Impression: Acute and chronic respiratory failure with hypercapnia, Current use of mcc anticoagulation, COPD with acute exacerbation, Encephalopathy acute Disposition Disposition: Acute Care Hospital [facility] Discharge Date/Time: 09/12/23 02:54
[2023-09-11] MEDS: Ipratropium/Albuterol Sulfate 3 ML AMPUL.NEB INHALATION (23:45)
[2023-09-11 23:54] VITALS: PULSE 60; RESP 12; RESP 22; O2SAT 96
[2023-09-11 23:55] LABS: Allen Test Positive; Base Excess 7 mmol/L (-2 to +2); Blood Gas Specimen Type ART; Mode Not entered; O2 Delivery Device BiPAP; PO2 82 mmHG (75-100); SITE L Radial; SO2 91 % (95-99); Time Given 23:52:16; Total Carbon Dioxide 38 mmol/L; pCO2 94.3 mmHg (35-45); pH 7.18 (7.35-7.45)
[2023-09-11 23:57] LABS: Absolute Neutrophil Count 10.2 X10^3/uL (2.0-7.7); Basophil# 0.01 X10^3/uL; Basophil% 0.1 % (0-1); Hematocrit 37.9 % (37-47); Hemoglobin 9.9 g/dL (12.0-15.0); Lymphocyte % 4.6 % (19-41); Mean Corp Hgb Conc 26.1 g/dL (32-36); Mean Corpuscular Hgb 24.2 pg (27.0-32.0); Mean Corpuscular Volume 92.7 fL (81-99); Mean Platelet Vol. 12.8 fl (6.2-12.0); Monocyte# 0.16 X10^3/uL; Monocyte% 1.5 % (0-10); NRBC Flagged by Analyzer 0.4 % (0-5); POSITIVE DIFFERENTIAL YES; Platelet Count 238 K/mm3 (150-450); RBC Distribution Width CV 18.6 % (11.6-14.6); RBC Distribution Width SD 62.9 fl (35.1-43.9); Red Blood Count 4.09 M/mm3 (4.2-5.4)
[2023-09-12] VITALS (34 sets, daily range): BP systolic 121–174; BP diastolic 55–119; PULSE 60–66; RESP 12–24; TEMP 36.6–37.1; O2SAT 92–100; BMI 32.8
--- NOTE | 2023-09-12 | RAD_ITS ---
INDICATION: Shortness of breath EXAMINATION/TECHNIQUE: X-RAY - AP view of chest COMPARISON: Chest x-ray from one day prior FINDINGS: LINES/DEVICES: Left AICD in place. LUNGS: Linear and coarsened bibasilar opacities again noted. No overt pulmonary edema. No sizable pleural effusion. No detectable pneumothorax. MEDIASTINUM AND CARDIOVASCULAR STRUCTURES: Heart size within normal limits for imaging technique. Atherosclerotic calcifications along aorta. BONES AND SOFT TISSUES: Skeletal degenerative changes. RAD/Chest 1 View (Portable) IMPRESSION: Bibasilar scarring and/or atelectasis Electronically Signed: Reji Rosario MD at 1:03 EST ,
--- NOTE | 2023-09-12 | RAD_ITS ---
INDICATION: trauma EXAMINATION/TECHNIQUE: X-RAY - LEFT XR Ankle Min 3 Views COMPARISON: None. FINDINGS: SOFT TISSUES: No significant soft tissue swelling. Punctate, benign soft tissue calcifications. BONES/JOINTS: No acute fracture or subluxation. Normal alignment. Preservation of the joint space(s). Bones are osteopenic. Small posterior calcaneal enthesophyte noted. RAD/Ankle min 3 Views IMPRESSION: No significant injury Electronically Signed: Reji Rosario MD at 0:50 EST ,
[2023-09-12 00:15] LABS: Anion Gap 2 (5-15); BUN 36 mg/dL (7-18); BUN/Creat Ratio 44.8 RATIO (10-20); Calcium,Total 9.3 mg/dL (8.5-10.1); Chloride 110 mmol/L (98-107); EST Glomerular Filtration Rate 73 mL/min (>60); Est Glom Filt Rate - Afr Amer 88 mL/min (>60); Estimated Creatinine Clearance 64.02 ml/min; Glucose 168 mg/dL (74-106); Potassium 4.7 mmol/L (3.5-5.1); Sodium Level 145 mmol/L (136-145); Troponin-I HS 66 pg/mL (3.0-54.0)
[2023-09-12 00:46] LABS: Lactic Acid 0.8 mmol/L (0.4-1.9)
--- NOTE | 2023-09-12 01:57 | HP.PCM.HOS_ITS ---
[facility] - General General Date of Admission: 09/12/23 Date of Service: 09/12/23 Chief Complaint: SOB and AMS. HPI Narrative BERTO SIMPSON, is a 77 F with a past medical history of essential hypertension, hyperlipidemia, obesity; with BMI 33.9 this admission, obstructive sleep apnea; on BiPAP, history of tobacco abuse (quit 2003); subsequent COPD, chronic hypoxic respiratory failure on 2 to 3 L nasal cannula continuously, history of DVT/PE; on Coumadin, history of pulmonary hypertension, history of atrial fibrillation, DNR CCA; no intubation, history of SSS; status post permanent pacemaker, history of CHF, chronic venous insufficiency, depression, GERD and osteoarthritis who presents to [facility] ER with the staff at her F complaining of shortness of breath and altered mental status. Ms. Simpson is not a fully reliable historian at this time so information was gathered from chart, medical staff and computer. According to the records this patient was sent to the ER here and was diagnosed with acute exacerbation of COPD and then was discharged back [facility] after conservative medical treatment without any increased oxygen demands at that time. Unfortunately, as the day progressed she had become more sleepy and hard to arouse with patient not eating or drinking throughout the day resulting in EMS activation. She was noted to have oxygen saturation of 85% on 5 L plus CPAP with hypersomnolence with her daughter reporting she is normally alert and talkative. In the ER she was diagnosed with acute exacerbation of COPD with acute hypoxic/hypercapnic respiratory failure requiring BiPAP complicated by metabolic encephalopathy from CO2 narcosis with an ABG revealing a pH 7.18/pCO2 94.3/PaO2 82/bicarbonate 35 at 91% saturation on BiPAP 14/8 with 30% FiO2 and she was then admitted to the ICU for ongoing care for stay that is expected to be greater than 48 hours. ON LICENSE OF [facility] Medical History Abscess of left leg Anemia Arthritis Atrial fibrillation AV block, complete BiPAP (biphasic positive airway pressure) dependence Cardiology follow-up encounter Chronic anticoagulation COPD (chronic obstructive pulmonary disease) Diabetes Difficulty swallowing DVT (deep venous thrombosis) Dyslipidemia Elevated troponin Essential hypertension Essential hypertension Former smoker Former tobacco use Heart failure with preserved ejection fraction Hematoma Hematoma of left lower leg History of atrial fibrillation History of CHF (congestive heart failure) History of DVT (deep vein thrombosis) History of echocardiogram History of edema History of irregular heartbeat History of pacemaker History of pulmonary embolism History of pulmonary embolus (PE) History of recurrent deep vein thrombosis (DVT) History of steroid therapy Injury of back Low iron Non-smoker On home oxygen therapy Post-menopausal Presence of permanent cardiac pacemaker (~10/12/20) Pulmonary embolism Pulmonary HTN Shortness of breath on exertion Skin necrosis Sleep apnea Tachycardia-bradycardia syndrome Uses wheelchair Venous insufficiency Walker as ambulation aid Wears glasses Wound abscess Home Medications omeprazole 20 mg tablet,delayed release 20 mg PO DAILY GERD 01/17/19 [History Last Taken 09/01/20 10:44] Lactobacillus acidophilus 1 cap PO DAILY [facility] 08/20/20 [History Last Taken 09/01/20 10:42] acetazolamide 250 mg tablet 250 mg PO BID EDEMA 08/20/20 [History Last Taken 09/01/20 08:00] albuterol sulfate 2.5 mg/3 mL (0.083 %) solution for nebulization 2.5 mg (3 mL) inhalation Q2H PRN PRN Shortness of Breath/Wheezing 09/05/20 [Rx Last Taken Unknown] docusate sodium 100 mg capsule 100 mg PO BID 09/05/20 [Rx Last Taken Unknown] ondansetron HCl 4 mg tablet 4 mg PO Q4H PRN Nausea 07/14/21 [History Last Taken Unknown] vit C 250 mg-vit E 90 mg-zinc 40 mg-copper 1 [id number] capsule (PreserVision AREDS-2) 1 tab PO BID 07/14/21 [History Last Taken Unknown] furosemide 20 mg tablet 20 mg PO DAILY 01/14/22 [History Last Taken Unknown] potassium chloride 20 mEq tablet,extended release 20 meq PO DAILY 01/14/22 [History Last Taken Unknown] acetaminophen 500 mg capsule 1,000 mg PO Q8H PRN Pain 04/14/22 [History Last Taken Unknown] albuterol sulfate 90 mcg/actuation aerosol inhaler (Ventolin HFA) 2 puff inhalation Q4H PRN PRN Wheezing ##1 04/14/22 [Rx Last Taken Unknown] polyethylene glycol 3350 17 gram oral powder packet (Miralax) 17 g PO DAILY 08/11/22 [History Last Taken Unknown] ipratropium 0.5 mg-albuterol 3 mg (2.5 mg base)/3 mL nebulization soln 3 ml inhalation Q4H PRN Wheezing 08/20/22 [History Last Taken Unknown] budesonide 1 mg/2 mL suspension for nebulization 1 mg (2 mL) inhalation BID #60 mL 10/21/22 [Rx Last Taken Unknown] calcium carbonate 600 mg calcium (1,500 mg) tablet 600 mg PO DAILY 12/31/22 [History Last Taken Unknown] cholecalciferol (vitamin D3) 50 mcg (2,000 unit) tablet (Vitamin D3) 50 mcg PO DAILY 12/31/22 [History Last Taken Unknown] citalopram 20 mg tablet 20 mg PO DAILY 12/31/22 [History Last Taken Unknown] cyanocobalamin (vitamin B-12) 500 mcg tablet 500 mcg PO DAILY 12/31/22 [History Last Taken Unknown] dextromethorphan HBr 10 mg/5 mL oral liquid 10 mg PO Q6H PRN Cough 12/31/22 [History Last Taken Unknown] ipratropium 0.5 mg-albuterol 3 mg (2.5 mg base)/3 mL nebulization soln 3 ml inhalation TID 12/31/22 [History Last Taken Unknown] phenylephrine-shark liver oil-mineral oil-petrolatum rectal ointment (Hemorrhoidal ointment) 1 applic AL Q6H PRN hemorrhoids 12/31/22 [History Last Taken Unknown] dextrose 40 % oral gel 15 g PO Q15M PRN hypoglycemia 02/08/23 [History Last Taken Unknown] glucagon 1 mg solution for injection (Glucagon Emergency Kit) 1 mg subcut Q20M PRN hypoglycem 02/08/23 [History Last Taken Unknown] gabapentin 300 mg capsule 300 mg PO QHS 03/20/23 [History Last Taken Unknown] warfarin 3 mg tablet 3 mg PO SUTUTH 03/20/23 [History Last Taken Unknown] azithromycin 250 mg tablet 250 mg PO QMWF #36 tabs 04/19/23 [Rx Last Taken Unknown] prednisone 10 mg tablet 10 mg PO DAILY #90 tabs 04/19/23 [Rx Last Taken Unknown] warfarin 4 mg tablet 4 mg PO MOWEFR 06/28/23 [History Last Taken Unknown] lorazepam 0.5 mg tablet 0.5 mg PO Q12H ANXIETY 09/11/23 [History Last Taken Unknown] prednisone 20 mg tablet 40 mg (2 x 20 mg) PO DAILY 7 days #14 tabs 09/11/23 [Rx Last Taken Unknown] Allergy/AdvReac Type Severity Reaction Status Date / Time amlodipine besylate AdvReac ANKLE AND Verified 09/11/23 23:18 [From [facility]] LEG EDEMA codeine AdvReac MENTAL Verified 09/11/23 23:18 STATUS CHANGE lisinopril AdvReac COUGH Verified 09/11/23 23:18 Family History Sister Heart disease Surgical History History of cholecystectomy History of total hysterectomy Hx of atrioventricular node ablation tailbone surgery Social History household members: none housing: [facility] Smoking Status: Former smoker how long ago did patient quit smoking: Approxiomately 2003 alcohol intake: never substance use type: does not use caffeine: No ROS ROS Narrative Review of systems was not possible as patient is encephalopathic on BiPAP. Review of Systems ROS Unobtainable: due to encephalopathy Vital Signs Vital Signs Vital Signs: 09/11/23 23:18 09/11/23 23:30 09/11/23 23:54 Temperature 98.5 F Temperature Source Temporal Pulse Rate 60 60 Respiratory Rate 23 H 22 H Respiratory Pattern Blood Pressure 161/66 H Blood Pressure Mean 97 Pulse Ox 98 96 Oxygen Delivery Method Non-Rebreather Bi-pap Oxygen Flow Rate (L/min) 15 Fraction of Inspired Oxygen (FIO2) 09/11/23 23:54 09/11/23 23:23 09/12/23 00:22 Temperature Temperature Source Pulse Rate 60 64 Respiratory Rate 22 H 24 H Respiratory Pattern Irregular Blood Pressure Blood Pressure Mean Pulse Ox 96 97 Oxygen Delivery Method Oxygen Flow Rate (L/min) Fraction of Inspired Oxygen (FIO2) 40 40 35 09/11/23 23:39 09/12/23 01:01 09/12/23 01:24 Temperature Temperature Source Pulse Rate 60 60 Respiratory Rate 21 H Respiratory Pattern Blood Pressure 134/65 H 152/69 H Blood Pressure Mean 88 96 Pulse Ox 94 95 Oxygen Delivery Method Bi-pap Bi-pap Bi-pap Oxygen Flow Rate (L/min) Fraction of Inspired Oxygen (FIO2) Weight Weight: 203 lb 7.787 oz Body Mass Index (BMI) 33.8 Physical Exam Const Constitutional Narrative: Patient is lethargic on BiPAP. Orientation / Consciousness: lethargic HEENT normocephalic, head/scalp atraumatic, hearing grossly normal bilaterally and moist oral mucous membranes Eyes PERRL and EOMs intact bilaterally Neck no lymphadenopathy and supple Resp Resp Narrative: Diminished breath sounds throughout with expiratory wheezes. Auscultation: wheezes Cardio regular rate and regular rhythm GI normal to inspection, nondistended, normoactive bowel sounds, soft to palpation, non-tender and non-distended Extremity normal to inspection, full ROM and no clubbing, cyanosis or edema Skin Skin Narrative: Patient has no evidence of rash at this time. Neuro Neuro Narrative: Patient is lethargic but arousable on BiPAP. Psych Psych Narrative: Patient is lethargic but arousable on BiPAP. Results Medical Records Data Attestation: I reviewed the patient's medical records Lab / Micro Data Attestation: I reviewed the patient's lab results. 09/12/23 03:10 09/12/23 03:10 Labs: Laboratory Results - last 24 hr 09/11/23 23:34: WBC 11.0, RBC 4.09 L, Hgb 9.9 L, Hct 37.9, MCV 92.7, MCH 24.2 L, MCHC 26.1 L, RDW Std Deviation 62.9 H, RDW Coeff of Laura 18.6 H, Plt Count 238, MPV 12.8 H, Immature Gran % (Auto) 0.800, Neut % (Auto) 93.0 H, Lymph % (Auto) 4.6 L, Castro % (Auto) 1.5, Eos % (Auto) 0.0, Baso % (Auto) 0.1, Absolute Neuts (auto) 10.2 H, Absolute Lymphs (auto) 0.50 L, Nucleated RBC % 0.4, Sodium 145, Potassium 4.7, Chloride 110 H, Carbon Dioxide 33.0 H, Anion Gap 2 L, BUN 36 H, Creatinine 0.80, Estim Creat Clear Calc 64.02, Est GFR (MDRD) Af Amer 88, Est GFR (MDRD) Non-Af 73, BUN/Creatinine Ratio 44.8 H, Glucose 168 H, Calcium 9.3, Troponin I High Sens 66 H 09/11/23 23:49: Lactic Acid 0.8 Micro: Microbiology 09/12/23 00:20 Mucosa - Nose SARS-CoV-2, Influenza & RSV (PCR) - Final ABG Data ABG results: ABG 09/11/23 23:50 Specimen Type ART Sample Site L Radial pH 7.18 L* Bicarbonate Actual 35.0 H Total CO2 38 Base Excess 7 H O2 Saturation 91 L O2 % 40.0 ABG pCO2 94.3 H* ABG pO2 82 Mj Test Positive O2 Delivery Device BiPAP Vent Mode Not entered Crit Call To/Read Back Yes Blood Gas Notified Whom nataly Blood Gas Notified Time 23:52:16 Clinical Comments bipap 14 Imaging Radiology Impression Brain CT 09/11/23 23:39 IMPRESSION: Chronic involutional and white matter changes. No evidence of acute intracranial abnormality. Left sphenoid sinus disease. Electronically Signed: Reji Rosario MD at 0:46 EST , Ankle X-Ray 09/12/23 00:00 IMPRESSION: No significant injury Electronically Signed: Reji Rosario MD at 0:50 EST , Chest X-Ray 09/12/23 00:00 IMPRESSION: Bibasilar scarring and/or atelectasis Electronically Signed: Reji Rosario MD at 1:03 EST , Assessment & Plan Assessment/Plan (1) COPD with acute exacerbation: (2) Acute and chronic respiratory failure with hypercapnia: (3) CO2 narcosis: (4) Metabolic encephalopathy: PLAN: Plan 1. AE COPD in elderly patient with DNR CCA; no intubation CODE STATUS - Admit to ICU. Continue broad-spectrum antibiotics, IV Solu-Medrol and as needed nebulizers. 2. [id number] hypoxic/hypercapnic respiratory failure requiring BiPAP due to #1 - Wean supplemental oxygen and BiPAP as tolerated. 3. Severe metabolic encephalopathy due to CO2 narcosis complicating #1 & #2 - Continue BiPAP and recheck ABG in the a.m. to ensure improvement. 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 4. Obesity; with BMI 33.9 this admission plus obstructive sleep apnea; on BiPAP - Weight loss will be recommended but is unlikely given patient's age and multiple comorbidities. Resume BiPAP as previous. 5. Essential hypertension - Hold scheduled antihypertensives until patient's condition stabilizes. If as needed IV hydralazine for systolic blood pressure greater than 160 mm Hg. 6. Hyperlipidemia - Continue statin. 7. History of DVT/PE; on Coumadin - Resume Coumadin at 50% of previous dose in light of antibiotics for #1. Check daily PT/INR. 8. History of pulmonary hypertension - Noted. 9. History of atrial fibrillation - Noted. 10. History of SSS; status post permanent pacemaker - Stable. 11. History of CHF - Stable. 12. Chronic venous insufficiency - Noted. 13. Depression - Continue current regimen. 14. GERD - Resume PPI. 15. Osteoarthritis - Give Tylenol prn. 16. DVT prophylaxis - Patient is already on Coumadin for #7 which will be continued. Check daily PT/INR. Total time: Approximately 55 minutes. Charges/Coding Visit Charges Inpatient E&M: 94475 Init Hosp L2
--- OUTSIDE RECORDS SUMMARY | 2023-09-12 02:29 | XMS RPT_ITS | CCD ---
Author Name Unknown Address [address] [place] [address] Organization [facility] Care Team Providers Care Cold Reduction Roller Name Role Phone Khari BHAT, Tor Sylvester Primary Care Provider Tor Jaffe Unavailable Higinio Hernandez MD Unavailable TOR SHAFFER Primary Care Unavailable TOR SHAFFER Primary Care Unavailable Allergies Allergy Classification Reported Allergen(s) Allergy Type Date of Onset Reaction(s) Facility (3 sources) amLODIPine; Translations: [AMLODIPINE BESYLATE] Drug Allergy 01-24-2011 Swelling [facility] Work Phone: (3 sources) Codeine; Translations: [CODEINE] Drug Allergy 05-24-2005 Mental Status Change [facility] Work Phone: (3 sources) Lisinopril; Translations:
--- OUTSIDE RECORDS SUMMARY | 2023-09-12 02:47 | XMS RPT_ITS | CCD ---
Author Name Unknown Address [address] [place] [address] Organization [facility] Care Team Providers Care Heel Slicker Name Role Phone Tor Shaffer MD Primary Care Provider 1( [phone] Tor Jaffe Unavailable Krystal Hernandez MD Unavailable TOR SHAFFER Primary Care Unavailable TOR SHAFFER Primary Care Unavailable Allergies Allergy Classification Reported Allergen(s) Allergy Type Date of Onset Reaction(s) Facility (3 sources) amLODIPine; Translations: [AMLODIPINE BESYLATE] Drug Allergy 01-24-2011 Swelling [facility] Work Phone: (3 sources) Codeine; Translations: [CODEINE] Drug Allergy 05-24-2005 Mental Status Change [facility] Work Phone: (3 sources) Lisinopril; Translations: [LISINOPRIL] Drug Allergy 07-02-2012 Cough [facility] Work Phone: Medications Current Medications Medication Drug Class(es) Dates Sig (Normalized) Sig (Original) amoxicillin 875 mg / clavulanate 125 mg oral tablet (1 source) Penicillin-class Antibacterial Start: 10-22-2021 End: 10-27-2021 take 1 tablet by mouth twice daily amoxicillin-clav ulanic acid (AUGMENTIN) 875-125 mg per tablet Indications: Bacterial sinusitis Take 1 tablet by mouth twice daily for 5 days. 10 tablet 0 10/22/2021 10/27/2021 Active Completed/Discontinued Medications Medication Drug Class(es) Dates Sig (Normalized) Sig (Original) acetaminophen 325 mg oral tablet (2 sources) take 2 tablets by mouth every six hours as needed acetaminophen (TYLENOL) 325 mg tablet Take 650 mg by mouth every 6 hours as needed for Pain. Not to exceed 3 gm in 24 hours 0 Active Problems Active Problems Problem Classification Problem Date Documented Da te Episodic/Chronic Anxiety disorders (2 sources) Anxiety; Translations: [Anxiety disorder, unspecified] Onset: 0 08-19-2009 Chronic Cardiac dysrhythmias (4 sources) Permanent atrial fibrillation; Translations: [Permanent atrial fibrillation] 09-30-2020 Chronic Chronic obstructive pulmonary disease and bronchiectasis (2 sources) Chronic obstructive lung disease; Translations: [Chronic obstructive pulmonary disease, unspecified] Onset: 0 08-06-2020 Chronic Conduction disorders (4 sources) Cardiac pacemaker in situ; Translations: [Presence of cardiac pacemaker] 10-12-2020 Chronic Congestive heart failure; nonhypertensive (2 sources) Chronic diastolic heart failure; Translations: [Chronic diastolic (congestive) heart failure] Onset: 8 09-23-2020 Chronic Disorders of lipid metabolism (2 sources) Hyperlipidemia; Translations: [Hyperlipidemia, unspecified] Onset: 0 02-22-2010 Chronic Esophageal disorders (2 sources) Gastroesophageal reflux disease; Translations: [Gastro-esophageal reflux disease without esophagitis] Onset: 1 04-21-2011 Chronic Essential hypertension (4 sources) Essential hypertension; Translations: [Essential (primary) hypertension] Onset: 7 06-16-2020 Chronic Nutritional deficiencies (2 sources) Vitamin D deficiency; Translations: [Vitamin D deficiency, unspecified] 04-21-2011 Chronic Osteoporosis (2 sources) Osteoporosis; Translations: [Age-related osteoporosis without current pathological fracture] 04-21-2011 Chronic Other aftercare (2 sources) Long-term current use of anticoagulant; Translations: [skilled nursing (current) use of anticoagulants] 09-30-2020 Episodic Other gastrointestinal disorders (2 sources) Malabsorption syndrome; Translations: [Other intestinal malabsorption] Onset: 5 05-24-2005 Chronic Other gastrointestinal disorders (2 sources) Irritable bowel syndrome; Translations: [Irritable bowel syndrome without diarrhea] Onset: 7 01-29-2007 Chronic Other nutritional; endocrine; and metabolic disorders (2 sources) Obesity; Translations: [Obesity, unspecified] Onset: 9 04-28-2009 Chronic Other upper respiratory infections (1 source) Bacterial sinusitis; Translations: [Chronic sinusitis, unspecified] Chronic Otitis media and related conditions (1 source) Acute transudative otitis media; Translations: [Other acute nonsuppurative otitis media, bilateral] Episodic Pulmonary heart disease (2 sources) Pulmonary hypertension; Translations: [Pulmonary hypertension, unspecified] Onset: 8 05-23-2018 Chronic Residual codes; unclassified (2 sources) Obstructive sleep apnea syndrome; Translations: [Obstructive sleep apnea (adult) (pediatric)] Onset: 0 06-16-2020 Chronic Residual codes; unclassified (2 sources) Other specified personal risk factors, not elsewhere classified; Translations: [Other specified personal history presenting hazards to health] 08-06-2020 Episodic Residual codes; unclassified (2 sources) History of ablation of atrioventricular node; Translations: [Other specified postprocedural states] 10-12-2020 Episodic Respiratory failure; insufficiency; arrest (adult) (2 sources) Chronic hypoxemic respiratory failure; Translations: [Chronic respiratory failure with hypoxia] Onset: 8 09-23-2020 Chronic Skin and subcutaneous tissue infections (2 sources) Cellulitis of left lower limb; Translations: [Cellulitis of left lower limb] Episodic Unclassified (2 sources) Chronic atrial fibrillation, unspecified; Translations: [Chronic atrial fibrillation, unspecified] Onset: 2 Past or Other Problems Problem Classification Problem Date Documented Da te Episodic/Chronic Deficiency and other anemia (2 sources) Iron deficiency anemia; Translations: [Iron deficiency anemia, unspecified] Onset: 06-16-2020 06-16-2020 Episodic Phlebitis; thrombophlebitis and thromboembolism (2 sources) History of recurrent deep vein thrombosis; Translations: [Personal history of other venous thrombosis and embolism] Onset: 06-16-2020 06-16-2020 Episodic Pulmonary heart disease (4 sources) Pulmonary embolism; Translations: [Other pulmonary embolism without acute cor pulmonale] Onset: 11-09-2016 11-09-2016 Episodic Residual codes; unclassified (2 sources) Insomnia; Translations: [Insomnia, unspecified] Onset: 04-28-2009 04-28-2009 Episodic Residual codes; unclassified (2 sources) Edema of foot; Translations: [Localized edema] Onset: 01-14-2011 01-14-2011 Episodic Results Test Name Value Interpretation Reference Range Facil ity Vital Signs Date Time Vital Sign Value Performing Clinician Elisabeth vital 10-22-2021 17:58-0400 Body temperature 97.3 [degF] Adriana Olmedo APRN.CARLOS Work Phone: [facility] 10-22-2021 17:58-0400 Diastolic blood pressure 72 mm[Hg] Adriana Barahona-Fran MATERIAL REQUISITIONER.BEAM WORKER Work Phone: [facility] 10-22-2021 17:58-0400 Heart rate 60 /min Adriana Olmedo MATERIAL REQUISITIONER.BEAM WORKER Work Phone: [facility] 10-22-2021 17:58-0400 SaO2% (BldA) [Mass fraction] 97 % Adriana Olmedo MATERIAL REQUISITIONER.BEAM WORKER Work Phone: [facility] 10-22-2021 17:58-0400 Systolic blood pressure 124 mm[Hg] Adriana Barahona-Fran MATERIAL REQUISITIONER.BEAM WORKER Work Phone: [facility] Encounters Encounter Date Encounter Type Care Provider Facility Start: 07-26-2022 End: 07-26-2022 ambulatory TOR SHAFFER Facility:[facility] Start: 07-26-2022 End: 07-26-2022 Patient encounter procedure Debbie Gonsalez APRN.BEAM WORKER Work Phone: [facility] Procedures Date Procedure Procedure Detail Performing Clinician Start: 04-18-2017 Adult depression screening assessment Adriana Olmedo APRN.BEAM WORKER Work Phone: Plan of Treatment Date Care Activity Detail Author Start: 07-12-2024 DIABETES SCREEN DIABETES SCREEN [facility] Start: 10-14-2023 DIABETES SCREEN DIABETES SCREEN [facility] Start: 10-22-2022 BP CONTROLLED (<130/80) BP CONTROLLE D (<130/80) [facility] Start: 07-17-2022 ADVANCE DIRECTIVE DISCUSSION ADVANCE DIRECTIVE DISCUSSION [facility] Start: 07-17-2022 DEPRESSION ASSESSMENT DEPRESSION ASS ESSMENT [facility] Start: 03-17-2022 Influenza vaccination C [facility] Start: 07-17-2021 ADVANCE DIRECTIVE DISCUSSION ADVANCE DIRECTIVE DISCUSSION [facility] Start: 09-13-2019 ANNUAL PCP TEAM CLINICAL PROGRAM MANAGER DERRELL DISEASE VISIT ANNUAL PCP TEAM CHRONIC DISEASE VISIT [facility] Start: 04-18-2018 Adult depression scr sesarning assessment DEPRESSION SCREENING [facility] Start: 12-19-2017 FECAL OCCULT BLOOD FECAL OCCULT BLOO D [facility] Start: 09-19-2009 Urine microalbumin profile DTAP,TDAP ,TD (1 - Tdap) [facility] Start: 12-16-1993 SHINGRIX VACCINE (1 of 2) DUNN GRIX VACCINE (1 of 2) [facility] Start: 12-16-1961 HEPATITIS C SCREENING HEPATITIS C SC REENING [facility] Immunizations Immunization Date Immunization Notes Care Provider Fa esther 03-23-2020 influenza, seasonal, injectable, preservative free Adriana Praisler-Wood MATERIAL REQUISITIONER.BEAM WORKER Work Phone: [facility] Work Phone: 06-10-2019 influenza, seasonal, injectable, preservative free Adriana Praisler-Wood MATERIAL REQUISITIONER.BEAM WORKER Work Phone: [facility] Work Phone: 06-06-2019 pneumococcal conjuga te vaccine, 13 valent Adriana Praisler-Wood MATERIAL REQUISITIONER.BEAM WORKER Work Phone: [facility] Work Phone: 05-09-2018 influenza, seasonal, injectable, preservative free Adriana Praisler-Wood MATERIAL REQUISITIONER.BEAM WORKER Work Phone: [facility] Work Phone: 05-07-2018 influenza, high dose seasonal, preservative-free Adriana Praisler-Wood MATERIAL REQUISITIONER.BEAM WORKER Work Phone: [facility] 05-15-2017 influenza, seasonal, injectable, preservative free Adriana Praisler-Wood MATERIAL REQUISITIONER.BEAM WORKER Work Phone: [facility] Work Phone: 04-16-2017 influenza, seasonal, injectable, preservative free Adriana Praisler-Wood MATERIAL REQUISITIONER.BEAM WORKER Work Phone: [facility] Work Phone: 05-20-2016 pneumococcal conjuga te vaccine, 13 valent Adriana Pradinh-Wood MATERIAL REQUISITIONER.BEAM WORKER Work Phone: [facility] 04-11-2016 influenza, high dose seasonal, preservative-free Adriana Praisler-Wood MATERIAL REQUISITIONER.BEAM WORKER Work Phone: [facility] 04-29-2015 influenza, high dose seasonal, preservative-free Adriana Praisler-Wood MATERIAL REQUISITIONER.BEAM WORKER Work Phone: [facility] 04-16-2015 influenza, seasonal, injectable, preservative free Adriana Praisler-Wood MATERIAL REQUISITIONER.BEAM WORKER Work Phone: [facility] Work Phone: 04-11-2014 influenza, high dose seasonal, preservative-free Adriana Praisler-Wood MATERIAL REQUISITIONER.BEAM WORKER Work Phone: [facility] 05-24-2013 influenza virus vacc ine, unspecified formulation Adriana Praisler-Wood MATERIAL REQUISITIONER.BEAM WORKER Work Phone: [facility] Work Phone: 10-15-2010 pneumococcal polysaccharide vaccine, 23 valent Adriana Barahona-Wood MATERIAL REQUISITIONER.BEAM WORKER Work Phone: [facility] Work Phone: 09-18-2009 tetanus and diphther ia toxoids, adsorbed, preservative free, for adult use (2 Lf of tetanus toxoid and 2 Lf of diphtheria toxoid) Adriana Barahona-Fran MATERIAL REQUISITIONER.BEAM WORKER Work Phone: [facility] 04-11-2009 influenza virus vacc ine, unspecified formulation Adriana Pradinh-Wood MATERIAL REQUISITIONER.BEAM WORKER Work Phone: [facility] 10-15-2005 pneumococcal polysaccharide vaccine, 23 valent Adriana Praisler-Wood MATERIAL REQUISITIONER.BEAM WORKER Work Phone: [facility] Work Phone: Payers Date Payer Category Payer Medicaid [facility] MEDICAID MYC ARE [employer] MEDICAID [id number] 2020-Present [phone] [address] [place] [address] Medicaid [id number] 2020 Medicare [id number] 2020 Medicare [facility] MEDICARE MYC ARE [facility] MEDICARE [id number] 2020-Present [phone] [address] [place] [address] Medicare [id number] 2020 Medicare [id number] Social History Date Type Detail Facility Start: 09-28-2015 Tobacco smoking stat [facility] Ex-smoker [facility] Work Phone: Start: 1961 End: 07-17-2000 History of tobacco use Current smoker [facility] Work Phone: Start: 10-13-2020 Alcohol intake Current drinke r of alcohol (finding) [facility] Start: 1945 Sex Assigned At Not on file C [facility] Start: 10-12-2021 End: 10-22-2021 Exposure to SARS-CoV-2 (event) Not sure [facility] Start: 1961 End: 07-17-2000 History of tobacco use Cigarette Smoker [facility] Work Phone: Start: 09-28-2015 Cigarettes smoked current (pack per day) - Reported 0.5 [facility] Start: 09-28-2015 Tobacco use and exposure Smokeless tobacco non-user [facility] Work Phone: Goals Date Patient Goal Desired Activity /State Clinical Notes 08-06-2020 to 07-26-2022 Debbie Gonsalez APRN.BEAM WORKER - 07/26/2022 7:09 PM Angie Olmedo APRN.BEAM WORKER - 10/22/2021 6:37 PM EDTPatient Instructions Note Date & Type Note Facility 07-26-2022 Note HNO ID: [id number] Author: Debbie Gonsalez APRN.BEAM WORKER Service: ? Author Type: Nurse Practitioner Type: Progress Notes Filed: 07/26/2022 7:19 PM Note Text: Called to exam room by MA for triage Patient seen in ED on 07/09 for complaints of left lower leg redness and swelling US negative for DVT Placed on ATB States that erythema is progressively worsening, has progressed outside the marked area +increased size abscess Patient is on ATB Given worsening symptoms and failing outpatient regimen, Sent to ED [facility] 07-26-2022 History of Present illness Narrative Called to exam room by MA for triage Patient seen in ED on 07/09 for complaints of left lower leg redness and swelling US negative for DVT Placed on ATB States that erythema is progressively worsening, has progressed outside the marked area +increased size abscess Patient is on ATB Given worsening symptoms and failing outpatient regimen, Sent to ED documented in this encounter [facility] 10-22-2021 Note HNO ID: [id number] Author: Adriana Olmedo APRN.BEAM WORKER Service: ? Author Type: Nurse Practitioner Type: Progress Notes Filed: 10/22/2021 7:07 PM Note Text: This note was created using Spiracurter. Subjective Rhoda Quinn is a 75 year old female who presents from her SNF ([facility]) with left ear pain, congestion, and productive cough x 1 month. The patient denies increased oxygen demands and is on her baseline home nasal cannula. Review of Systems Constitutional: Positive for fatigue. Negative for chills and fever. HENT: Positive for congestion, ear pain, sinus pressure, sinus pain and voice change. Negative for ear discharge, sore throat and trouble swallowing. Respiratory: Positive for cough, chest tightness and shortness of breath. Negative for wheezing. Cardiovascular: Negative for chest pain and palpitations. Gastrointestinal: Positive for diarrhea, nausea and vomiting. Chronic per patient- treated with dietary changes and prn zofran Genitourinary: Negative. Musculoskeletal: Negative. Skin: Negative. Neurological: Negative. Hematological: Negative. Psychiatric/Behavioral: Negative. Objective BP 124/72 Pulse 60 Temp 36.3 ?C (97.3 ?F) SpO2 97% PAST MEDICAL HISTORY Diagnosis Date - Anemia - Anticoagulant long-term use warfarin; indication: stroke prevention atrial fibrillation; also has history of pulmonary embolus - Anxiety - At risk for stroke [id number] = 4 (HTN, age2, female gender) - Atrial fibrillation with RVR (HCC) - Atrioventricular block, complete (HCC) RF catheter ablation AV node 10/12/2020; had junctional escape rhythm post ablation, rate 40s bpm - COPD (chronic obstructive pulmonary disease) (HCC) - COVID-19 virus infection 06/26/2020 - Diastolic dysfunction - Dyslipidemia - GERD (gastroesophageal reflux disease) - HBP (high blood pressure) - Heart failure with preserved ejection fraction (HCC) - History of cardioversion 01/2018 HR not controlled with exertion while in AF on Beta Madison and Cardizem. Converted to NSR with cardioversion - History of DVT (deep vein thrombosis) - History of pulmonary embolus (PE) - Hx of atrioventricular node ablation RF catheter ablation AV node 10/12/2020, with PPM implant - Hyperlipidemia - Iatrogenic pulmonary embolism and infarction (HCC) 08/2005 - Insomnia - Iron deficiency anemia - Obesity - ANKUSH (obstructive sleep apnea) - Osteoporosis - Pedal edema - Permanent atrial fibrillation (HCC) asymptomatic when ventricular rates are controlled - PMH - PAST MEDICAL HISTORY OF H. pylori gastritis - Presence of cardiac pacemaker [employer] single-chamber ventricular pacemaker implanted 10/12/2020; indication: CHB after AV sandrine catheter ablation; system will be MRI conditional after 6 weeks post implant; CCAG Dr. Hernandez - Pulmonary hypertension (HCC) - Tachycardia - Tachycardia-bradycardia syndrome (HCC) - Venous insufficiency - Vitamin D deficiency PAST SURGICAL HISTORY Procedure Laterality Date - ABLATE AV NODE FUNCTION 10/12/2020 indication: permanent atrial fibrillation with poorly controlled ventricular response rates; combined with PPM implant; CCAG Dr. Hernandez - ANTER COLPORRHAPHY,BLAD/VAGINA 01/2003 Cystocele repair - CARDIOVERSION - COLONOSCOP W/ OR W/O BRSH SPEC 04/30/2003 Normal - ECHOCARDIOGRAM 09/05/2019 - EGD W/O BRSH SPECIMEN W/BX 04/30/2003 Gastritis - LAPAROSCOPIC CHOLEYCYSTECTOMY 2003 - PACEMAKER, SINGLE RATE-RESP. Left 10/12/2020 [employer] single-chamber ventricular pacemaker; indication: CHB after AV sandrine catheter ablation; system will be MRI conditional after 6 weeks post implant; [facility]AG Dr. Hernandez - TOTAL ABDOM HYSTERECTOMY BEN, one ovary intact, menorrhagia ALLERGIES Codeine, Norvasc [Amlodipine Besylate], and Lisinopril MEDICATIONS lactose-reduced food (ENSURE CLEAR ORAL) Take by mouth. OXYGEN-AIR DELIVERY SYSTEMS MISC albuterol (PROVENTIL) 2.5 mg /3 mL (0.083 %) nebulizer solution Use 3 mL via nebulizer every 4 hours as needed for Wheezing/Shortness of Breath. Lactobacillus acidophilus (BACID) cap Take 1 capsule by mouth once daily. vit A,C,T-Dfvn-Hruwsj (PRESERVISION AREDS) 7,160 unit- 113 mg-100 unit tab Take 1 tablet by mouth daily with breakfast. cholecalciferol, Vitamin D3, (VITAMIN D3) 1,250 mcg (50,000 unit) cap capsule Take 1 capsule by mouth one time a week. furosemide (LASIX) 20 mg tablet Take 20 mg by mouth once daily. warfarin (COUMADIN) 1 mg tablet warfarin (COUMADIN) 2.5 mg tablet warfarin (COUMADIN) 3 mg tablet Docusate Sodium 100 mg tab Take 1 tablet by mouth twice daily. ipratropium-albuterol (DUONEB) 0.5 mg-3 mg(2.5 mg base)/3 mL nebu Inhale 3 mL as instructed twice daily. acetaminophen (TYLENOL) 325 mg tablet Take 650 mg by mouth every 6 hours as needed for Pain. Not to exceed 3 gm in 24 hours budesonide (PULMICORT) 1 mg/2 mL nebulizer solutio (more content not included)... [facility] 10-22-2021 History of Present illness Narrative This note was created using Wander (f. YongoPal)riter. Subjective Rhoda Quinn is a 75 year old female who presents from her SNF ([facility]) with left ear pain, congestion, and productive cough x 1 month. The patient denies increased oxygen demands and is on her baseline home nasal cannula. Review of Systems Constitutional: Positive for fatigue. Negative for chills and fever. HENT: Positive for congestion, ear pain, sinus pressure, sinus pain and voice change. Negative for ear discharge, sore throat and trouble swallowing. Respiratory: Positive for cough, chest tightness and shortness of breath. Negative for wheezing. Cardiovascular: Negative for chest pain and palpitations. Gastrointestinal: Positive for diarrhea, nausea and vomiting. Chronic per patient- treated with dietary changes and prn zofran Genitourinary: Negative. Musculoskeletal: Negative. Skin: Negative. Neurological: Negative. Hematological: Negative. Psychiatric/Behavioral: Negative. Objective BP 124/72 Pulse 60 Temp 36.3 C (97.3 F) SpO2 97% PAST MEDICAL HISTORY Diagnosis Date Anemia Anticoagulant long-term use warfarin; indication: stroke prevention atrial fibrillation; also has history of pulmonary embolus Anxiety At risk for stroke [id number] = 4 (HTN, age1, female gender) Atrial fibrillation with RVR (HCC) Atrioventricular block, complete (HCC) RF catheter ablation AV node 10/12/2020; had junctional escape rhythm post ablation, rate 40s bpm COPD (chronic obstructive pulmonary disease) ([facility]) COVID-19 virus infection 06/26/2020 Diastolic dysfunction Dyslipidemia GERD (gastroesophageal reflux disease) HBP (high blood pressure) Heart failure with preserved ejection fraction (HCC) History of cardioversion 01/2018 HR not controlled with exertion while in AF on Beta Madison and Cardizem. Converted to NSR with cardioversion History of DVT (deep vein thrombosis) History of pulmonary embolus (PE) Hx of atrioventricular node ablation RF catheter ablation AV node 10/12/2020, with PPM implant Hyperlipidemia Iatrogenic pulmonary embolism and infarction (HCC) 08/2005 Insomnia Iron deficiency anemia Obesity ANKUSH (obstructive sleep apnea) Osteoporosis Pedal edema Permanent atrial fibrillation (HCC) asymptomatic when ventricular rates are controlled PMH - PAST MEDICAL HISTORY OF H. pylori gastritis Presence of cardiac pacemaker [employer] single-chamber ventricular pacemaker implanted 10/12/2020; indication: CHB after AV sandrine catheter ablation; system will be MRI conditional after 6 weeks post implant; MELISSA Hernandez Pulmonary hypertension (HCC) Tachycardia Tachycardia-bradycardia syndrome (HCC) Venous insufficiency Vitamin D deficiency PAST SURGICAL HISTORY Procedure Laterality Date ABLATE AV NODE FUNCTION 10/12/2020 indication: permanent atrial fibrillation with poorly controlled ventricular response rates; combined with PPM implant; MELISSA Hernandez ANTER COLPORRHAPHY,BLAD/VAGINA 01/2003 Cystocele repair CARDIOVERSION COLONOSCOP W/ OR W/O BRSH SPEC 04/30/2003 Normal ECHOCARDIOGRAM 09/05/2019 EGD W/O [facility] SPECIMEN W/BX 04/30/2003 Gastritis LAPAROSCOPIC CHOLEYCYSTECTOMY 2003 PACEMAKER, SINGLE RATE-RESP. Left 10/12/2020 [employer] single-chamber ventricular pacemaker; indication: CHB after AV sandrine catheter ablation; system will be MRI conditional after 6 weeks post implant; [facility]AG Dr. Hernandez TOTAL ABDOM HYSTERECTOMY BEN, one ovary intact, menorrhagia ALLERGIES Codeine, Norvasc [Amlodipine Besylate], and Lisinopril MEDICATIONS lactose-reduced food (ENSURE CLEAR ORAL) Take by mouth. OXYGEN-AIR DELIVERY SYSTEMS MISC albuterol (PROVENTIL) 2.5 mg /3 mL (0.083 %) nebulizer solution Use 3 mL via nebulizer every 4 hours as needed for Wheezing/Shortness of Breath. Lactobacillus acidophilus (BACID) cap Take 1 capsule by mouth once daily. vit A,C,U-Kndc-Yrxgzv (PRESERVISION AREDS) 7,160 unit- 113 mg-100 unit tab Take 1 tablet by mouth daily with breakfast. cholecalciferol, Vitamin D3, (VITAMIN D3) 1,250 mcg (50,000 unit) cap capsule Take 1 capsule by mouth one time a week. furosemide (LASIX) 20 mg tablet Take 20 mg by mouth once daily. warfarin (COUMADIN) 1 mg tablet warfarin (COUMADIN) 2.5 mg tablet warfarin (COUMADIN) 3 mg tablet Docusate Sodium 100 mg tab Take 1 tablet by mouth twice daily. ipratropium-albuterol (DUONEB) 0.5 mg-3 mg(2.5 mg base)/3 mL nebu Inhale 3 mL as instructed twice daily. acetaminophen (TYLENOL) 325 mg tablet Take 650 mg by mouth every 6 hours as needed for Pain. Not to exceed 3 gm in 24 hours budesonide (PULMICORT) 1 mg/2 mL nebulizer solution Inhale 2 mL as instructed twice daily. potassium chloride ER (K-DUR, KLOR-CON) 20 mEq tablet Take 20 mEq by mouth once daily. busPIRone (BUSPAR) 5 mg tablet Take 5 mg by mouth daily at bedtime. omeprazole (PRILOSEC) 20 mg capsule Take 20 mg by mouth once daily. LORazepam (ATIVAN) 0.5 mg Take 0.5 mg by mouth daily at bedtime. magnesium hydroxide (MOM) 400 mg/5 mL suspension Take 30 mL by mouth once daily as needed for Constipation. senna (SENOKOT) 8.6 mg tab Take 17.2 mg by mouth daily at bedtime. bisacodyl (DULCOLAX) 10 mg supp 10 mg by RECTAL route once daily as needed for Constipation. citalopram (CELEXA) 40 mg tablet Take 1 tablet by mouth once daily. VITAMIN B-12 500 MCG TAB Take 1 tablet by mouth once daily. amoxicillin-clavulanic acid (AUGMENTIN) 875-125 mg per tablet Take 1 tablet by mouth twice daily for 5 days. acetaZOLAMIDE (DIAMOX) 250 mg tablet Take 1 tablet by mouth twice daily. FAMILY HISTORY Problem Relation Age of Onset Stroke Mother other (dementia) Mother other (Parkinson's Disease) Sister other (Parkinson's Disease) Brother Asthma Brother other (blood clot) Brother maternal Hypertension Son Hypertension Daughter Social History Tobacco Use Smoking status: Former Smoker Packs/day: 0.50 Years: 25.00 Pack years: 12.50 Start date: 1961 Quit date: 07/17/2000 Years since quittin.2 Smokeless tobacco: Never Used Tobacco comment: No smoking in childhood home. Spouse smoked in marital home. Vaping Use Vaping Use: Never used Substance Use Topics Alcohol use: Yes Comment: A glass of wine no more frequently than quarterly. TO 09/28/15. Drug use: No Physical Exam Vitals reviewed. Constitutional: General: She is not in acute distress. Appearance: Normal appearance. She is not toxic-appearing or diaphoretic. HENT: Head: Normocephalic and atraumatic. Right Ear: Ear canal and external ear normal. A middle ear effusion is present. There is no impacted cerumen. Tympanic membrane is not injected or erythematous. Left Ear: Ear canal and external ear normal. A middle ear effusion is present. Tympanic membrane is not injected or erythematous. Nose: Congestion present. Mouth/Throat: Mouth: Mucous membranes are moist. Pharynx: Oropharynx is clear. No oropharyngeal exudate. Eyes: Extraocular Movements: Extraocular movements intact. Conjunctiva/sclera: Conjunctivae normal. Pupils: Pupils are equal, round, and reactive to light. Cardiovascular: Rate and Rhythm: Normal rate and regular rhythm. Pulmonary: Effort: Pulmonary effort is normal. No respiratory distress. Breath sounds: Normal breath sounds. Comments: Crackles consistent with COPD heard in lower lung bases Musculoskeletal: Cervical back: Normal range of motion and neck supple. Lymphadenopathy: Cervical: Cervical adenopathy present. Skin: General: Skin is warm and dry. Capillary Refill: Capillary refill takes less than 2 seconds. Coloration: Skin is not jaundiced or pale. Neurological: General: No focal deficit present. Mental Status: She is alert and oriented to person, place, and time. Mental status is at baseline. Psychiatric: Mood and Affect: Mood normal. Behavior: Behavior normal. Assessment and Plan ASSESSMENT/PLAN: 1. Bacterial sinusitis - ICD9: 473.9, 041.9, ICD10: J32.9, B96.89 (primary diagnosis) - Will begin treatment with Augmentin 875 mg PO BID for 5 days - The patient should also be given OTC cough and cold meds as needed for the first 5-7 days of treatment. - Supportive care with plenty of fluids, rest, and analgesia prn. - AMOXICILLIN 875 MG-POTASSIUM CLAVULANATE 125 MG TABLET 2. Acute JOHN (middle ear effusion), bilateral - ICD9: 381.00, ICD10: H65.193 Jaxon Mckeon RN TEACHING PROVIDER (Physician/PA/MATERIAL REQUISITIONER) NOTE OF PERSONAL INVOLVEMENT IN CARE: I have personally seen and examined the patient and performed the medical decision-making components. I have reviewed the Advanced Practice Registered Nurse (MATERIAL REQUISITIONER) Student's documentation and verified the findings in the note as written. Any additions or changes are noted in bold/italics. Signature: Adriana Olmedo Date: 10/22/2021 Time: 7:06 PM documented in this encounter [facility] 10-22-2021 Instructions Jaxon Mckeon - 10/22/2021 6:37 PM EDT [facility] PATIENT INFO ACUTE SINUSITIS OVERVIEW Rhinosinusitis, or more commonly sinusitis, is the medical term for inflammation (swelling) of the lining of the sinuses and nose. The sinuses are the hollow areas within the facial bones that are connected to the nasal openings. The sinuses are lined with mucous membranes, similar to the inside of the nose. There are two main types of sinusitis: acute and chronic. Acute sinusitis is inflammation that lasts for less than four weeks while chronic sinusitis lasts for more than 12 weeks. Acute sinusitis is common, affecting approximately one million people per year in the [place]. ACUTE SINUSITIS CAUSES The most common cause of acute sinusitis is a viral infection associated with the common cold. Bacterial sinusitis occurs much less commonly, in only 0.5 to 2 percent of cases, usually as a complication of viral sinusitis. Because antibiotics are effective only against bacterial, and not viral, infections, most people do not need antibiotics for acute sinusitis. ACUTE SINUSITIS SYMPTOMS Symptoms of acute sinusitis include: Nasal congestion or blockage Thick, yellow to green discharge from the nose Pain in the teeth Pain or pressure in the face that is worse when bending forwards Other acute sinusitis symptoms can include fever (temperature greater than 100.4 F or 38 C), fatigue, cough, difficulty or inability to smell, ear pressure or fullness, headache, and bad breath. In most cases, these symptoms develop over the course of one day and begin to improve within seven to 10 days. DO I NEED TO BE EXAMINED? It is difficult to know if you have a viral or bacterial sinus infection initially. However, most people with a viral infection improve without treatment within seven to 10 days after symptoms begin. Bacterial sinusitis also sometimes improves without treatment, although it can also worsen and require treatment. If one or more of the following bothersome symptoms last more than seven days, an examination by a healthcare provider is recommended: Thick, yellow to green discharge from the nose Face or tooth pain, especially if it is only on one side Tenderness over the maxillary sinuses (located on the left and right side of the nose, inside the cheekbones) Symptoms that initially improve and then worsen When to seek immediate help If you have one or more of the following symptoms, you should seek medical attention immediately (even if symptoms have been present for less than seven days): High fever (>102.5 F or 39.2 C) Sudden, severe pain in the face or head Double vision or difficulty seeing Confusion or difficulty thinking clearly Swelling or redness around one or both eyes Stiff neck, shortness of breath ACUTE SINUSITIS TREATMENT Initial treatment of a sinus infection aims to relieve symptoms since almost everyone will improve within the first seven to 10 days. Experts recommend avoiding antibiotics during this time unless there is clear evidence of a severe bacterial infection. Initial treatment Pain relief Non-prescription pain medications, such as acetaminophen (eg, Tylenol ) or ibuprofen (eg, Motrin , Advil ) are recommended for pain. Nasal irrigation and saline sprays Rinsing the nose with a salt-water (saline) solution is called nasal irrigation or nasal lavage. Saline is also available in a standard nasal spray, although this is not as effective as using larger amounts of water in an irrigation. Nasal irrigation is particularly useful for treating drainage down the back of the throat, sneezing, nasal dryness, and congestion. The treatment helps by rinsing out allergens and irritants from the nose. Saline rinses also clean the nasal lining and can be used before applying sprays containing medications, to get a better effect from the medication. Nasal lavage with warmed saline can be performed as needed, once per day, or twice daily for increased symptoms. Nasal lavage carries few risks when performed correctly. Saline nasal sprays and irrigation kits can be purchased [id number]. Saline mixes can also be purchased or patients can make their own solution. A variety of devices, including bulb syringes, Neti pots, and bottle sprayers, may be used to perform nasal lavage; instructions for nasal lavage are provided in the table. At least 200 mL (about 3/4 cup) of fluid is recommended for each nostril. Nasal decongestants Nasal decongestant sprays, including oxymetazoline (Afrin ) and phenylephrine (Sherwin-synephrine ) can be used to temporarily treat congestion. However, these sprays should not be used for more than two to three days due to the risk of rebound congestion (when the nose is congested constantly unless the medication is used repeatedly). Other treatments Other treatments for congestion, such as oral antihistamines (such as diphenhydramine/Benadryl ) or zinc supplements are not proven to improve symptoms of sinusitis and can have unwanted side effects. Medications to thin secretions (such as guaifenesin) may help to clear mucus. Secondline treatment If symptoms have not improved in seven to ten days, you should arrange for medical evaluation. You may need further treatment. Nasal glucocorticoids Nasal glucocorticoids (steroids delivered by a nasal spray) can help to reduce swelling inside the nose, usually within two to three days. These drugs have few side effects and dramatically relieve symptoms in most people. There are a number of nasal glucocorticoids available by prescription. These drugs are all effective, but differ in how frequently they must be used and how much they cost. You may need to use a nasal decongestant for a few days before starting a nasal glucocorticoid to reduce nasal swelling; this will allow the nasal glucocorticoid to reach more areas of the nasal passages Do I need an antibiotic? If bothersome symptoms of sinusitis persist for 10 or more days, it is possible that you have bacterial sinusitis. The need for antibiotics depends upon the severity of your symptoms. Mild symptoms There are two possible treatment options if you have mild sinusitis symptoms: treat with antibiotics or continue to watch and wait for one week. Watching and waiting is a reasonable option because up to 75 percent of people with bacterial sinusitis improve within one month without antibiotics. During the watch and wait period, treatments to improve symptoms are recommended. If symptoms worsen or do not improve after watching and waiting, treatment with an antibiotic is usually recommended. Treatments to relieve symptoms are recommended while using antibiotics. Moderate or severe symptoms Most healthcare providers will prescribe an antibiotic for moderate to severe symptoms (temperature >38.3 C or 101 F and/or severe pain that interferes with usual activities). Treatments to relieve symptoms are also recommended during antibiotic treatment. One of the least expensive and most effective antibiotics for sinusitis is amoxicillin. An alternate antibiotic will be prescribed if you are allergic to penicillin. Regardless of which antibiotic is prescribed, it is important to follow the dosing instructions carefully and to finish the entire course of treatment. Taking the medication less often than prescribed or stopping the medication early can lead to complications, such as a recurrent infection. What if I do not improve with treatment? If you do not improve or worsen after a course of antibiotics, you should be re-examined. In some cases, symptoms of sinusitis improve but then recur. This is usually because the infection was not completely eliminated by the antibiotic. An alternate antibiotic, extended antibiotic treatment, and/or further testing may be recommended, depending upon your individual situation. documented in this encounter [facility] 06-25-2021 Note Procedure (AKEPD) RHODA QUINN ([id number]) 1945 F TXT Date Time Provider Department 06/25/21 8:00 AM REM DEVICE CK AKEPD During your visit today, we recorded the following information about you: Referring Provider: KRYSTAL HERNANDEZ [[id number]] Allergies As of Date: 06/25/2021 Noted Allergy Reaction CODEINE 05/24/2005 1 - Mental Status Change NORVASC (AMLODIPINE BESYLATE) 01/24/2011 7 - Swelling Comments: Ankle and leg edema. Resolved off med. LISINOPRIL 07/02/2012 3 - Cough Date Reviewed: 10/12/2020 Reviewed by: Livia (Rn) MAGO Sanabria - Fully Assessed Reason for Visit: Remote Pacemaker Follow Up [1925] Visit Diagnosis:SSS (sick sinus syndrome) ([facility]) [I49.5] Prescriptions as of 06/25/2021 - albuterol (PROVENTIL) 2.5 mg /3 mL (0.083 %) nebulizer solution Use 3 mL via nebulizer every 4 hours as needed for Wheezing/Shortness of Breath. - Lactobacillus acidophilus (BACID) cap Take 1 capsule by mouth once daily. - vit A,C,W-Escc-Rnbjtr (PRESERVISION AREDS) 7,160 unit- 113 mg-100 unit tab Take 1 tablet by mouth daily with breakfast. - cholecalciferol, Vitamin D3, (VITAMIN D3) 1,250 mcg (50,000 unit) cap capsule Take 1 capsule by mouth one time a week. - furosemide (LASIX) 20 mg tablet Take 20 mg by mouth once daily. - warfarin (COUMADIN) 1 mg tablet - warfarin (COUMADIN) 2.5 mg tablet - warfarin (COUMADIN) 3 mg tablet - Docusate Sodium 100 mg tab Take 1 tablet by mouth twice daily. - acetaZOLAMIDE (DIAMOX) 250 mg tablet Take 1 tablet by mouth twice daily. - ipratropium-albuterol (DUONEB) 0.5 mg-3 mg(2.5 mg base)/3 mL nebu Inhale 3 mL as instructed twice daily. - acetaminophen (TYLENOL) 325 mg tablet Take 650 mg by mouth every 6 hours as needed for Pain. Not to exceed 3 gm in 24 hours - budesonide (PULMICORT) 1 mg/2 mL nebulizer solution Inhale 2 mL as instructed twice daily. - potassium chloride ER (K-DUR, KLOR-CON) 20 mEq tablet Take 20 mEq by mouth once daily. - busPIRone (BUSPAR) 5 mg tablet Take 5 mg by mouth daily at bedtime. - omeprazole (PRILOSEC) 20 mg capsule Take 20 mg by mouth once daily. - LORazepam (ATIVAN) 0.5 mg Take 0.5 mg by mouth daily at bedtime. - magnesium hydroxide (MOM) 400 mg/5 mL suspension Take 30 mL by mouth once daily as needed for Constipation. - senna (SENOKOT) 8.6 mg tab Take 17.2 mg by mouth daily at bedtime. - bisacodyl (DULCOLAX) 10 mg supp 10 mg by RECTAL route once daily as needed for Constipation. - citalopram (CELEXA) 40 mg tablet Take 1 tablet by mouth once daily. - VITAMIN B-12 500 MCG TAB Take 1 tablet by mouth once daily. Problem List As Of Date 06/25/2021 Noted Resolved DIARRHEA DUE TO BILE SALTS [K90.89] 05/24/2005 IRRITABLE COLON [K58.9] 01/29/2007 Essential (primary) hypertension [I10] 01/29/2007 Osteoporosis, unspecified [M81.0] 01/29/2007 12/14/2016 Other and unspecified coagulation defects [D68.*01/29/2007 12/14/2016 Pulmonary embolism (HCC) [I26.99] 01/29/2007 11/09/2016 Pneumonia [J18.9] 03/31/2009 08/19/2009 Obesity [E66.9] 04/28/2009 Insomnia [G47.00] 04/28/2009 HBP (High Blood Pressure) [I10] 08/19/2009 Anxiety [F41.9] 08/19/2009 Atypical chest pain [R07.89] 08/19/2009 04/11/2016 COPD (chronic obstructive pulmonary disease) (H*02/22/2010 Hyperlipidemia [E78.5] 02/22/2010 Pneumonia [J18.9] 05/26/2010 04/11/2016 Palpitations [R00.2] 05/26/2010 11/09/2016 Pedal edema [R60.0] 01/14/2011 GERD (gastroesophageal reflux disease) [K21.9] 04/21/2011 Vitamin D deficiency [E55.9] Osteoporosis [M81.0] Acute thromboembolism of deep veins of lower ex*04/04/2012 11/09/2016 Back pain [M54.9] 10/31/2012 12/14/2016 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 *06/20/2016 06/10/2020 Thromboembolism of deep veins of lower extremit*08/30/2016 11/09/2016 Pulmonary embolus (HCC) [I26.99] 11/09/2016 Chronic respiratory failure with hypoxia (HCC) *05/23/2018 Acute combined systolic and diastolic congestiv*05/23/2018 06/10/2020 Pulmonary hypertension (HCC) [I27.20] 05/23/2018 Chronic diastolic heart failure (HCC) [I50.32] 04/20/2018 Permanent atrial fibrillation (HCC) [I48.21] 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] At risk for stroke [Z91.89] Anticoagulant long-term use [Z79.01] Iron deficiency anemia [D50.9] 06/16/2020 History of recurrent deep vein thrombosis [Z86.*06/16/2020 History of pulmonary embolism [Z86.711] 06/16/2020 Obstructive sleep apnea syndrome [G47.33] 06/16/2020 Afib (HCC) [I48.91] 08/06/2020 09/23/2020 Presence of cardiac pacemaker [Z95.0] Atrioventricular block, 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 Resolved off med. LISINOPRIL 07/02/2012 3 - Cough Date Reviewed: 10/12/2020 Reviewed by: Livia (Rn) MAGO Sanabria - Fully Assessed Reason for Visit: Remote Pacemaker Follow Up [1925] Visit Diagnosis:Tachy-robb syndrome (HCC) [I49.5] Prescriptions as of 03/12/2021 - albuterol (PROVENTIL) 2.5 mg /3 mL (0.083 %) nebulizer solution Use 3 mL via nebulizer every 4 hours as needed for Wheezing/Shortness of Breath. - Lactobacillus acidophilus (BACID) cap Take 1 capsule by mouth once daily. - vit A,C,Q-Ebum-Hvfshb (PRESERVISION AREDS) 7,160 unit- 113 mg-100 unit tab Take 1 tablet by mouth daily with breakfast. - cholecalciferol, Vitamin D3, (VITAMIN D3) 1,250 mcg (50,000 unit) cap capsule Take 1 capsule by mouth one time a week. - furosemide (LASIX) 20 mg tablet Take 20 mg by mouth once daily. - warfarin (COUMADIN) 1 mg tablet - warfarin (COUMADIN) 2.5 mg tablet - warfarin (COUMADIN) 3 mg tablet - Docusate Sodium 100 mg tab Take 1 tablet by mouth twice daily. - acetaZOLAMIDE (DIAMOX) 250 mg tablet Take 1 tablet by mouth twice daily. - ipratropium-albuterol (DUONEB) 0.5 mg-3 mg(2.5 mg base)/3 mL nebu Inhale 3 mL as instructed twice daily. - acetaminophen (TYLENOL) 325 mg tablet Take 650 mg by mouth every 6 hours as needed for Pain. Not to exceed 3 gm in 24 hours - budesonide (PULMICORT) 1 mg/2 mL nebulizer solution Inhale 2 mL as instructed twice daily. - potassium chloride ER (K-DUR, KLOR-CON) 20 mEq tablet Take 20 mEq by mouth once daily. - busPIRone (BUSPAR) 5 mg tablet Take 5 mg by mouth daily at bedtime. - omeprazole (PRILOSEC) 20 mg capsule Take 20 mg by mouth once daily. - LORazepam (ATIVAN) 0.5 mg Take 0.5 mg by mouth daily at bedtime. - magnesium hydroxide (MOM) 400 mg/5 mL suspension Take 30 mL by mouth once daily as needed for Constipation. - senna (SENOKOT) 8.6 mg tab Take 17.2 mg by mouth daily at bedtime. - bisacodyl (DULCOLAX) 10 mg supp 10 mg by RECTAL route once daily as needed for Constipation. - citalopram (CELEXA) 40 mg tablet Take 1 tablet by mouth once daily. - VITAMIN B-12 500 MCG TAB Take 1 tablet by mouth once daily. Problem List As Of Date 03/12/2021 Noted Resolved DIARRHEA DUE TO BILE SALTS [K90.89] 05/24/2005 IRRITABLE COLON [K58.9] 01/29/2007 Essential (primary) hypertension [I10] 01/29/2007 Osteoporosis, unspecified [M81.0] 01/29/2007 12/14/2016 Other and unspecified coagulation defects [D68.*01/29/2007 12/14/2016 Pulmonary embolism (HCC) [I26.99] 01/29/2007 11/09/2016 Pneumonia [J18.9] 03/31/2009 08/19/2009 Obesity [E66.9] 04/28/2009 Insomnia [G47.00] 04/28/2009 HBP (High Blood Pressure) [I10] 08/19/2009 Anxiety [F41.9] 08/19/2009 Atypical chest pain [R07.89] 08/19/2009 04/11/2016 COPD (chronic obstructive pulmonary disease) (H*02/22/2010 Hyperlipidemia [E78.5] 02/22/2010 Pneumonia [J18.9] 05/26/2010 04/11/2016 Palpitations [R00.2] 05/26/2010 11/09/2016 Pedal edema [R60.0] 01/14/2011 GERD (gastroesophageal reflux disease) [K21.9] 04/21/2011 Vitamin D deficiency [E55.9] Osteoporosis [M81.0] Acute thromboembolism of deep veins of lower ex*04/04/2012 11/09/2016 Back pain [M54.9] 10/31/2012 12/14/2016 skilled nursing current use of anticoagulant therapy *06/20/2016 06/10/2020 Thromboembolism of deep veins of lower extremit*08/30/2016 11/09/2016 Pulmonary embolus (HCC) [I26.99] 11/09/2016 Chronic respiratory failure with hypoxia (HCC) *05/23/2018 Acute combined systolic and diastolic congestiv*05/23/2018 06/10/2020 Pulmonary hypertension (HCC) [I27.20] 05/23/2018 Chronic diastolic heart failure (HCC) [I50.32] 04/20/2018 Permanent atrial fibrillation (HCC) [I48.21] 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] At risk for stroke [Z91.89] Anticoagulant long-term use [Z79.01] Iron deficiency anemia [D50.9] 06/16/2020 History of recurrent deep vein thrombosis [Z86.*06/16/2020 History of pulmonary embolism [Z86.711] 06/16/2020 Obstructive sleep apnea syndrome [G47.33] 06/16/2020 Afib (HCC) [I48.91] 08/06/2020 09/23/2020 Presence of cardiac pacemaker [Z95.0] Atrioventricular block, complete (HCC) [I44.2] Hx of atrioventricular node ablation [Z98.890] Encounter Status:Closed by BARBARA PIERCE on 03/12/21 [facility] 12-04-2020 Note Procedure (AKEPD) SABRAMCKAYLARHODA ([id number]) 1945 F TXT Date Time Provider Department 12/04/20 8:00 AM DEVICE CLINIC 1 AKEPD During your visit today, we recorded the following information about you: Referring Provider: KRYSTAL HERNANDEZ [[id number]] Allergies As of Date: 12/04/2020 Noted Allergy Reaction CODEINE 05/24/2005 1 - Mental Status Change NORVASC (AMLODIPINE BESYLATE) 01/24/2011 7 - Swelling Comments: Ankle and leg edema. Resolved off med. LISINOPRIL 07/02/2012 3 - Cough Date Reviewed: 10/12/2020 Reviewed by: Livia (Rn) MAGO Sanabria - Fully Assessed Reason for Visit: Permanent Pacemaker [1364] Visit Diagnosis:Tachy-robb syndrome (HCC) [I49.5] Prescriptions as of 12/04/2020 Sig: ALBUTEROL SULFATE 2.5 MG/3 ML* Use 3 mL via nebulizer every * LACTOBACILLUS ACIDOPHILUS CAP* Take 1 capsule by mouth once * VITAMINS A,C,B-CWLW-WXNFAX 7* Take 1 tablet by mouth daily * CHOLECALCIFEROL (VITAMIN D3) * Take 1 capsule by mouth one t* FUROSEMIDE 20 MG TABLET Take 20 mg by mouth once tatum* WARFARIN 1 MG TABLET WARFARIN 2.5 MG TABLET WARFARIN 3 MG TABLET DOCUSATE SODIUM 100 MG TABLET Take 1 tablet by mouth twice * ACETAZOLAMIDE 250 MG TABLET Take 1 tablet by mouth twice * IPRATROPIUM 0.5 MG-ALBUTEROL * Inhale 3 mL as instructed twi* ACETAMINOPHEN 325 MG TABLET Take 650 mg by mouth every 6 * BUDESONIDE 1 MG/2 ML SUSPENSI* Inhale 2 mL as instructed twi* POTASSIUM CHLORIDE ER 20 MEQ * Take 20 mEq by mouth once jeri* BUSPIRONE 5 MG TABLET - FOR C* Take 5 mg by mouth daily at b* OMEPRAZOLE 20 MG CAPSULE,TIMA* Take 20 mg by mouth once tatum* LORAZEPAM 0.5 MG TABLET Take 0.5 mg by mouth daily at* MAGNESIUM HYDROXIDE 400 MG/5 * Take 30 mL by mouth once tatum* SENNOSIDES 8.6 MG TABLET Take 17.2 mg by mouth daily a* BISACODYL 10 MG RECTAL SUPPOS* 10 mg by RECTAL route once da* CITALOPRAM 40 MG TABLET Take 1 tablet by mouth once d* * VITAMIN B-12 500 MCG TABLET Take 1 tablet by mouth once d* Problem List As Of Date 12/04/2020 Noted Resolved DIARRHEA DUE TO BILE SALTS [K90.89] 05/24/2005 IRRITABLE COLON [K58.9] 01/29/2007 Essential (primary) hypertension [I10] 01/29/2007 Osteoporosis, unspecified [M81.0] 01/29/2007 12/14/2016 Other and unspecified coagulation defects [D68.*01/29/2007 12/14/2016 Pulmonary embolism (HCC) [I26.99] 01/29/2007 11/09/2016 Pneumonia [J18.9] 03/31/2009 08/19/2009 Obesity [E66.9] 04/28/2009 Insomnia [G47.00] 04/28/2009 HBP (High Blood Pressure) [I10] 08/19/2009 Anxiety [F41.9] 08/19/2009 Atypical chest pain [R07.89] 08/19/2009 04/11/2016 COPD (chronic obstructive pulmonary disease) (H*02/22/2010 Hyperlipidemia [E78.5] 02/22/2010 Pneumonia [J18.9] 05/26/2010 04/11/2016 Palpitations [R00.2] 05/26/2010 11/09/2016 Pedal edema [R60.0] 01/14/2011 GERD (gastroesophageal reflux disease) [K21.9] 04/21/2011 Vitamin D deficiency [E55.9] Osteoporosis [M81.0] Acute thromboembolism of deep veins of lower ex*04/04/2012 11/09/2016 Back pain [M54.9] 10/31/2012 12/14/2016 skilled nursing current use of anticoagulant therapy *06/20/2016 06/10/2020 Thromboembolism of deep veins of lower extremit*08/30/2016 11/09/2016 Pulmonary embolus (HCC) [I26.99] 11/09/2016 Chronic respiratory failure with hypoxia (HCC) *05/23/2018 Acute combined systolic and diastolic congestiv*05/23/2018 06/10/2020 Pulmonary hypertension (HCC) [I27.20] 05/23/2018 Chronic diastolic heart failure (HCC) [I50.32] 04/20/2018 Permanent atrial fibrillation (HCC) [I48.21] 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] At risk for stroke [Z91.89] Anticoagulant long-term use [Z79.01] Iron deficiency anemia [D50.9] 06/16/2020 History of recurrent deep vein thrombosis [Z86.*06/16/2020 History of pulmonary embolism [Z86.711] 06/16/2020 Obstructive sleep apnea syndrome [G47.33] 06/16/2020 Afib (HCC) [I48.91] 08/06/2020 09/23/2020 Presence of cardiac pacemaker [Z95.0] Atrioventricular block, complete (HCC) [I44.2] Hx of atrioventricular node ablation [Z98.890] Encounter Status:Closed by BARBARA PIERCE on 12/04/20 [facility] 10-13-2020 Note HNO ID: [id number] Author: Kelle MasseyRn) MAGO Schultz Service: Electrophysiology Author Type: Registered Nurse Type: Progress Notes Filed: 10/13/2020 1:18 PM Note Text: Stable PM function. Teaching completed. Full report under cardiac tabAmna Howard RN [facility] 10-13-2020 Note HNO ID: [id number] Author: Malika MasseyRn) MAGO Suarez Service: Care Management Author Type: Registered Nurse Type: Care Mgt Progress Note Filed: 10/13/2020 2:13 PM Note Text: CARE MANAGEMENT DISCHARGE NOTE SERVICE DATE: 10/13/2020 SERVICE TIME: 11:09 LOS: 0 days Admission Date: 10/12/2020 DISCHARGE ARRANGEMENT (list agency and phone number) Discharge Arrangement: longterm facility Was an expedited discharge program used?: No Provider Name: Steph CAREGIVER ASSESSMENT: HANDOFF COMMUNICATION: Handoff to: Primary Care Physician Primary Care Physician Name/Phone: Mary TRANSPORTATION ARRANGEMENTS: Transportation Arrangements: Car Patient discharged to [facility]. Report number given to RN [phone]. Daughter to transfer to facility. D/c summary sent to facility. SIGNATURE: Malika Suarez RN PATIENT NAME: Rhoda Quinn DATE: October 13, 2020 TIME: 11:08 AM PAGER/CONTACT #: [phone] [facility] 10-12-2020 Note HNO ID: [id number] Author: Malika Wilde (Rn) MAGO Suarez Service: Care Management Author Type: Registered Nurse Type: Care Mgt Initial Assessment Filed: 10/12/2020 7:50 PM Note Text: CARE MANAGEMENT: ASSESSMENT AND DISCHARGE PLAN SERVICE DATE: October 12, 2020 SERVICE TIME:7:39 PRIMARY CARE PHYSICIAN: Tor Shaffer MD ADMISSION STATUS: Extended Recovery Needs Prior to Discharge: Accepting Facility;Insurance Authorization;OT/PT Evaluation MEDICAL: [facility] 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 Last discharge within 30 days: No Advance Directive: Current Advance Directive: None Roll Changer Attempted to Assist with AD Completion: Yes Action: Patient Unwilling Health LiteracyHow often do you need to have someone help you when you read instructions, pamphlets, or other written material from your doctor or pharmacy? : 1 - Never How confident are you filling out medical forms by yourself?: 1 - Extremely If Patient scores > 3 on either question, the following interventions were put into place:: Patient did not score > 3 on either question. Baseline Mental Status Prior to this Illness what was the patient's Baseline Mental Status?: Alert AND Oriented Prior to this illness, has anyone described the patient having any of the following behaviors?: Not Applicable Relationship of the informant to the patient:: Self Functional Status: Needs Assistance Does Patient Currently Receive Any Community Services or Home Care?: None Equipment Prior to Admission: Bi-level Positive Airway Pressure/Continuous Positive Airway Pressure Has the Patient Been in a Jail Facility in the Past 30 days?: Yes Location and Dates: [facility] SOCIAL: Living Arrangements: Nursing Facility Facility Information: [facility] Financial Resources: Retired Primary Contact: Extended Emergency Contact Information Primary Emergency Contact: Irene Ross Mobile Relation: Daughter Supportive Patient Contact:: Yes Contact Resources: Family Family Name/Phone: Irene Ross (Daughter) [phone] (Mobile Caregiver Assessment Patient's perception of need for this admission: pacemaker Medication Adherance I worry that my prescription medication will do more harm than good to me : 0 - Disagree Mostly I feel financially burdened by my [id number] expenses for my prescription medication:: 0 - Disagree Mostly Patient is categorized as: Low risk < 2 Are you interested in bedside delivery of your medications? No Is Patient Psychosocially Complex?: No ASSESSMENT AND PLAN: Medical Needs: Medical Needs: Two or more chronic diseases;Durable Medical Equipment Psychosocial Needs: Psychosocial Needs: None FREEDOM OF CHOICE EXPLAINED: POTENTIAL TRANSITION PLANS Jail Facility/Intermediate Care Facility Patient in Rapid Observation Unit after pacemaker surgery. Per Patient she is from [facility]. She uses BIpap at night. Her daughter transports her. Referral created. Patient may need pt ot notes, insurance authorization SIGNATURE: Malika Suarez RN PATIENT NAME: Rhoda Quinn DATE: October 12, 2020 TIME: 7:39 PM PAGER/CONTACT #: [phone] [facility] documented as of this encounter (statuses as of 10/22/2021) [facility]01-[facility]2021 History of Past illness Narrative* Problem Noted Date Resolved Date Afib 08/06/2020 09/23/2020 Acute combined systolic and diastolic congestive heart failure 05/23/2018 06/10/2020 Thromboembolism of deep veins of lower extremity 08/30/2016 11/09/2016 skilled nursing current use of anticoagulant therapy 1 08/21/2015 06/10/2020 Back pain 10/31/2012 12/14/2016 Acute thromboembolism of deep veins of lower ext remity 04/04/2012 11/09/2016 Pneumonia 05/26/2010 04/11/2016 Palpitations 05/26/2010 11/09/2016 Atypical chest pain 08/19/2009 04/11/2016 Pneumonia 03/31/2009 08/19/2009 Osteoporosis, unspecified 01/29/20072016 Other and unspecified coagulation defects 200612/14/2016 Pulmonary embolism 01/29/2007 11/09/2016 documented as of this encounter (statuses as of 07/27/2022) [facility] Bacterial sinusitis- Primary Unspecified sinusitis (chronic) Acute JOHN (middle ear effusion), bilateral [facility] this encounter [facility] Left leg cellulitis- Primary Cellulitis and abscess of leg, except foot Abscess of left leg Cellulitis and abscess of leg, except foot documented in this encounter [facility] Summary Purpose Family History No Family History Records FoundNo Family History Records FoundNo Family History Records FoundNo Family History Records FoundNo Family History Records FoundNo Family History Records Found Advance Directives No Advanced Directives Records FoundDocuments on File Type Date Recorded 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 Advance Directive(s) Advance Directive(s) 10/12/2020 7:12 AM Advance Directive(s) 09/23/2020 10:07 AM Advance Directive(s) 08/06/2020 7:04 AM Advance Directive(s) 08/06/2020 10:22 AM Additional Source Comments INFORMATION SOURCE (unrecogn ized section and content) DATE CREATED AUTHOR AUTHOR'S ORGANIZ ATION 05/12/2021 [facility] DATE CREATED AUTHOR AUTHOR'S ORGANIZ ATION 07/13/2021 [facility] [place] DATE CREATED AUTHOR AUTHOR'S ORGANIZ ATION 10/05/2021 [facility] DATE CREATED AUTHOR AUTHOR'S ORGANIZ ATION 04/17/2022 [facility] DATE CREATED AUTHOR AUTHOR'S ORGANIZ ATION 07/27/2022 [facility] Source Comments (unrecognize d section and content) In the event this informatio n is protected by the Federal Confidentiality of Alcohol and Drug Abuse Patient Records regulations: The Federal rules restrict any use of the information to criminally investigate or prosecute any alcohol or drug abuse patient.[facility] the event this information is protected by the Federal Confidentiality of Alcohol and Drug Abuse Patient Records regulations: The Federal rules restrict any use of the information to criminally investigate or prosecute any alcohol or drug abuse patient.[facility] Reason for Visit (unrecogniz ed section and content) Care Teams (unrecognized sec tion and content) Heel Slicker Relationship Specialty Start Date End Date Tor Shaffer MD [address] [facility] [address] [place] [address] PCP - General Family Medicine 10/02/18 Tor Jaffe [address] [facility] [address] [place] [address] Specialty Agile Coach Cardiology 05/12/20 Krystal Hernandez MD [address] [facility] [address] [place] [address] Specialty Agile Coach Cardiology 08/06/20 [facility] 03/16/18 FOR RECORDS PERTAINING TO PATIENTS WHO ARE OR HAVE BEEN ENROLLED IN A CHEMICAL DEPENDENCY/SUBSTANCEABUSE PROGRAM, SOME INFORMATION MAY BE OMITTED. This clinical summary was aggregated from multiple sources. Caution should be exercised in using it in the provision of clinical care. This summary normalizes information from multiple sources, and as a consequence, information in this document may materially change the coding, format and clinical context of patient data. In addition, data may be omitted in some cases. CLINICAL DECISIONS SHOULD BE BASED ON THE PRIMARY CLINICAL RECORDS. [employer] [facility]. provides no warranty or guarantee of the accuracy or completeness of information in this document.
[2023-09-12] MEDS: 0.9% Normal Saline (1000mL) 1,000 ML 70 ML IV (03:14)
[2023-09-12] MEDS: 0.9% Saline Lock 10 ML Syringe IV ×3 (03:14→19:53)
[2023-09-12] MEDS: MethylPREDNISolone 125 MG/2 ML Vial IV (03:15)
[2023-09-12 03:20] LABS: Absolute Lymphocyte Count 0.67 X10^3/uL (0.83-4.51); Absolute Neutrophil Count 9.3 X10^3/uL (2.0-7.7); Basophil# 0.02 X10^3/uL; Basophil% 0.2 % (0-1); Hematocrit 36.8 % (37-47); Hemoglobin 9.7 g/dL (12.0-15.0); Lymphocyte # 0.67 X10^3/ul (0.83-4.51); Lymphocyte % 6.4 % (19-41); Mean Corp Hgb Conc 26.4 g/dL (32-36); Mean Corpuscular Hgb 24.3 pg (27.0-32.0); Mean Platelet Vol. 12.3 fl (6.2-12.0); Monocyte# 0.48 X10^3/uL; Monocyte% 4.5 % (0-10); NRBC Flagged by Analyzer 0.3 % (0-5); Neutrophil % 88.1 % (47-70); Platelet Count 267 K/mm3 (150-450); RBC Distribution Width CV 18.3 % (11.6-14.6); RBC Distribution Width SD 61.6 fl (35.1-43.9); White Blood Count 10.6 K/mm3 (4.4-11.0)
[2023-09-12 03:51] LABS: International Normalized Ratio 3.8; Prothrombin Time (Protime)PT. 37.1 SECONDS (11.7-14.9)
[2023-09-12 03:52] LABS: ALB/GLOB Ratio 0.7 RATIO (0.9-2.4); AST(SGOT) 30 U/L (15-37); Alanine Aminotransfer ALT/SGPT 29 U/L (13-56); Alkaline Phosphatase 105 U/L (45-117); Anion Gap 3 (5-15); BUN 36 mg/dL (7-18); BUN/Creat Ratio 44.4 RATIO (10-20); Calcium,Total 8.9 mg/dL (8.5-10.1); Chloride 109 mmol/L (98-107); Creatinine, Serum 0.81 mg/dL (0.55-1.02); EST Glomerular Filtration Rate 72 mL/min (>60); Est Glom Filt Rate - Afr Amer 88 mL/min (>60); Estimated Creatinine Clearance 60.97 ml/min; Globulin 4.1 g/dL (2.2-4.2); Glucose 143 mg/dL (74-106); Magnesium 2.4 mg/dL (1.6-2.6); Phosphorus 4.6 mg/dL (2.5-4.9); Potassium 4.9 mmol/L (3.5-5.1); Protein, Total 7.1 g/dL (6.4-8.2); Sodium Level 146 mmol/L (136-145); Thyroid Stim Hormone (TSH) 0.34 uIU/mL (0.358-3.74)
[2023-09-12 04:06] LABS: Troponin-I HS 63 pg/mL (3.0-54.0)
[2023-09-12 04:28] LABS: Allen Test Positive; Base Excess 8 mmol/L (-2 to +2); Bicarbonate 35.4 mmol/L (22-26); Blood Gas Specimen Type ART; Mode BiLevel; O2 Delivery Device Not entered; PEEP 8; PO2 71 mmHG (75-100); RR 12; SITE R Radial; SO2 89 % (95-99); Total Carbon Dioxide 38 mmol/L; pCO2 86.9 mmHg (35-45); pH 7.22 (7.35-7.45)
--- NOTE | 2023-09-12 04:29 | CPS ---
Critical ABG values. Dr. Machado aware.
[2023-09-12] MEDS: Piperacil/Tazobactam 3.375 GM in 0.9% Normal Saline (50mL MB+) 50 ML IV ×3 (05:07→19:54)
[2023-09-12 06:00] LABS: T4 Free Direct 0.85 ng/dL (0.76-1.46)
--- NOTE | 2023-09-12 07:05 | EX.PCM.CONCC ---
Assessment & Plan Assessment/Plan (1) Acute and chronic respiratory failure with hypercapnia: (2) COPD with acute exacerbation: (3) CO2 narcosis: PLAN: Plan RECOMMENDATIONS: 1. Transition to Solu-Medrol 40 IV every 8 2. Discontinue Pulmicort, Coumadin, vitamin K 3. Daily INRs 4. Continue BiPAP ATC pending improvement in mentation 5. Keep oxygen saturations between 90 and 94% 6. Okay to continue with baseline diuretics 7. Agree with broad-spectrum antibiotics pending cultures IMPRESSIONS: 1. Metabolic encephalopathy secondary to acute on chronic hypercarbic respiratory failure secondary to COPD exacerbation Unclear etiology at this time. Viral screen was negative. Patient does not have any significant infiltrates on chest x-ray. Patient will continue on BiPAP for now. Patient does have permissive hypercapnia, but noted to be a DNR/DNI. Will discontinue IV fluids and continue baseline diuretics. Continue bronchodilators, empiric antibiotics and systemic steroids. Extremely guarded prognosis at this time. Low clinical suspicion for PE given supratherapeutic INR 2. Supratherapeutic INR Patient's INR is elevated, but there is no indication of ongoing bleeding at this time. Will hold Coumadin for now. Patient is on antibiotics, which can protract INR 3. Obesity/hypertension/hyperlipidemia/history of PE/SSS/GERD/osteoarthritis/advanced age Complicates care, management, recovery and prognosis. Antihypertensives have been held as patient is currently n.p.o. given mental status. May be started on as needed antihypertensives if necessary. Patient is on PPI. Clinical suspicion for marginal increase in troponin secondary to hypoxia and cardiac strain given problem #1. Patient does have a history of being DNR/DNI HPI Consult Data Date of Consult: 09/12/23 HPI Narrative HPI Narrative: BERTO SIMPSON is a 77 F, with past medical history listed below and well-known to me from the outpatient office, who presents to [facility] on 09/11/2023 secondary to progressive shortness of breath. Patient had been seen in the ER previously in the day but was discharged home to the [facility] given that her oxygen demands have not changed. As the day progressed, patient became more difficult to arouse, so EMS was called. Patient was 85% on 5 L/min on CPAP at the long term. Patient was confirmed to DNR Comfort Care arrest without intubation, so was transition to BiPAP immediately. In the ER, patient was afebrile and hypertensive at 161/66. Patient was tachypneic at 23 breaths/min. Laboratory workup showed a white blood cell count of 11, hemoglobin of 9.9 and platelets of 238. Chemistry showed an elevated bicarbonate of 33, chloride of 110, creatinine of 0.8 and a glucose of 168. Lactate and troponin were unremarkable. Initial ABG in the emergency department just after BiPAP was a pH of 7.18/94/82/91% indicating an acute on chronic respiratory acidosis with partial compensation. A CT of the head was unremarkable. Chest x-ray showed bibasilar scarring with no acute infiltrates and ankle x-ray was unremarkable. CTA of the chest was not obtained as patient was fully anticoagulated. COVID, flu and RSV swabs were all negative. Patient was transferred on BiPAP to the intensive care unit for further evaluation. Since being in the intensive care unit, patient has been BiPAP dependent. Patient is somewhat arousable, but not answering any questions or following commands. Patient does have some scattered bruising, but no clinical bleeding has been noted such as epistaxis, hemoptysis, melena or hematochezia. Patient has been seen by myself in the past with her last PFT completed in 2022. At that time, patient was noted to have an FEV1 of 34% with 54% DLCO. Patient was unable to obtain lung volumes at that time. [facility] Medical History Abscess of left leg Anemia Arthritis Atrial fibrillation AV block, complete BiPAP (biphasic positive airway pressure) dependence Cardiology follow-up encounter Chronic anticoagulation COPD (chronic obstructive pulmonary disease) Diabetes Difficulty swallowing DVT (deep venous thrombosis) Dyslipidemia Elevated troponin Essential hypertension Essential hypertension Former smoker Former tobacco use Heart failure with preserved ejection fraction Hematoma Hematoma of left lower leg History of atrial fibrillation History of CHF (congestive heart failure) History of DVT (deep vein thrombosis) History of echocardiogram History of edema History of irregular heartbeat History of pacemaker History of pulmonary embolism History of pulmonary embolus (PE) History of recurrent deep vein thrombosis (DVT) History of steroid therapy Injury of back Low iron Non-smoker On home oxygen therapy Post-menopausal Presence of permanent cardiac pacemaker (~10/12/20) Pulmonary embolism Pulmonary HTN Shortness of breath on exertion Skin necrosis Sleep apnea Tachycardia-bradycardia syndrome Uses wheelchair Venous insufficiency Walker as ambulation aid Wears glasses Wound abscess Home Medications omeprazole 20 mg tablet,delayed release 20 mg PO DAILY GERD 01/17/19 [History Last Taken 09/01/20 10:44] Lactobacillus acidophilus 1 cap PO DAILY [facility] 08/20/20 [History Last Taken 09/01/20 10:42] acetazolamide 250 mg tablet 250 mg PO BID EDEMA 08/20/20 [History Last Taken 09/01/20 08:00] albuterol sulfate 2.5 mg/3 mL (0.083 %) solution for nebulization 2.5 mg (3 mL) inhalation Q2H PRN PRN Shortness of Breath/Wheezing 09/05/20 [Rx Last Taken Unknown] docusate sodium 100 mg capsule 100 mg PO BID 09/05/20 [Rx Last Taken Unknown] ondansetron HCl 4 mg tablet 4 mg PO Q4H PRN Nausea 07/14/21 [History Last Taken Unknown] vit C 250 mg-vit E 90 mg-zinc 40 mg-copper 1 [id number] capsule (PreserVision AREDS-2) 1 tab PO BID 07/14/21 [History Last Taken Unknown] furosemide 20 mg tablet 20 mg PO DAILY 01/14/22 [History Last Taken Unknown] potassium chloride 20 mEq tablet,extended release 20 meq PO DAILY 01/14/22 [History Last Taken Unknown] acetaminophen 500 mg capsule 1,000 mg PO Q8H PRN Pain 04/14/22 [History Last Taken Unknown] albuterol sulfate 90 mcg/actuation aerosol inhaler (Ventolin HFA) 2 puff inhalation Q4H PRN PRN Wheezing ##1 04/14/22 [Rx Last Taken Unknown] polyethylene glycol 3350 17 gram oral powder packet (Miralax) 17 g PO DAILY 08/11/22 [History Last Taken Unknown] ipratropium 0.5 mg-albuterol 3 mg (2.5 mg base)/3 mL nebulization soln 3 ml inhalation Q4H PRN Wheezing 08/20/22 [History Last Taken Unknown] budesonide 1 mg/2 mL suspension for nebulization 1 mg (2 mL) inhalation BID #60 mL 10/21/22 [Rx Last Taken Unknown] calcium carbonate 600 mg calcium (1,500 mg) tablet 600 mg PO DAILY 12/31/22 [History Last Taken Unknown] cholecalciferol (vitamin D3) 50 mcg (2,000 unit) tablet (Vitamin D3) 50 mcg PO DAILY 12/31/22 [History Last Taken Unknown] citalopram 20 mg tablet 20 mg PO DAILY 12/31/22 [History Last Taken Unknown] cyanocobalamin (vitamin B-12) 500 mcg tablet 500 mcg PO DAILY 12/31/22 [History Last Taken Unknown] dextromethorphan HBr 10 mg/5 mL oral liquid 10 mg PO Q6H PRN Cough 12/31/22 [History Last Taken Unknown] ipratropium 0.5 mg-albuterol 3 mg (2.5 mg base)/3 mL nebulization soln 3 ml inhalation TID 12/31/22 [History Last Taken Unknown] phenylephrine-shark liver oil-mineral oil-petrolatum rectal ointment (Hemorrhoidal ointment) 1 applic [place] Q6H PRN hemorrhoids 12/31/22 [History Last Taken Unknown] dextrose 40 % oral gel 15 g PO Q15M PRN hypoglycemia 02/08/23 [History Last Taken Unknown] glucagon 1 mg solution for injection (Glucagon Emergency Kit) 1 mg subcut Q20M PRN hypoglycem 02/08/23 [History Last Taken Unknown] gabapentin 300 mg capsule 300 mg PO QHS 03/20/23 [History Last Taken Unknown] warfarin 3 mg tablet 3 mg PO SUTUTH 03/20/23 [History Last Taken Unknown] azithromycin 250 mg tablet 250 mg PO QMWF #36 tabs 04/19/23 [Rx Last Taken Unknown] prednisone 10 mg tablet 10 mg PO DAILY #90 tabs 04/19/23 [Rx Last Taken Unknown] warfarin 4 mg tablet 4 mg PO MOWEFR 06/28/23 [History Last Taken Unknown] lorazepam 0.5 mg tablet 0.5 mg PO Q12H ANXIETY 09/11/23 [History Last Taken Unknown] prednisone 20 mg tablet 40 mg (2 x 20 mg) PO DAILY 7 days #14 tabs 09/11/23 [Rx Last Taken Unknown] Allergy/AdvReac Type Severity Reaction Status Date / Time amlodipine besylate AdvReac ANKLE AND Verified 09/11/23 23:18 [From [facility]] LEG EDEMA codeine AdvReac MENTAL Verified 09/11/23 23:18 STATUS CHANGE lisinopril AdvReac COUGH Verified 09/11/23 23:18 Family History Sister Heart disease Surgical History History of cholecystectomy History of total hysterectomy Hx of atrioventricular node ablation tailbone surgery Social History household members: none housing: long term Smoking Status: Former smoker how long ago did patient quit smoking: Approxiomately 2003 alcohol intake: never substance use type: does not use caffeine: No ROS Review of Systems ROS Unobtainable: due to mental status Physical Exam Const Constitutional Narrative: Patient is lethargic on BiPAP. Good BiPAP synchrony noted. RASS -3. Orientation / Consciousness: lethargic HEENT normocephalic, head/scalp atraumatic, hearing grossly normal bilaterally and moist oral mucous membranes Eyes PERRL and EOMs intact bilaterally Neck no lymphadenopathy and supple Resp Resp Narrative: Symmetric expansion noted Auscultation: wheezes and diminished lung sounds; Negative for rales or rhonchi Cardio regular rate, regular rhythm, S1 normal heart sound, S2 normal heart sound, no murmurs, no rub and no gallops GI normal to inspection, nondistended, normoactive bowel sounds, soft to palpation, non-tender and non-distended Extremity no clubbing, cyanosis or edema Skin Skin Narrative: Some scattered ecchymotic areas noted. None with significant induration Neuro moves all extremities and no focal motor deficits Psych Mood & Affect: flat affect Medical Records Data Attestation: I reviewed the patient's medical records Lab / Micro Data Attestation: I reviewed the patient's lab results. 09/12/23 03:10 09/12/23 03:10 Labs: Laboratory Results - last 24 hr 09/11/23 23:34: WBC 11.0, RBC 4.09 L, Hgb 9.9 L, Hct 37.9, MCV 92.7, MCH 24.2 L, MCHC 26.1 L, RDW Std Deviation 62.9 H, RDW Coeff of Laura 18.6 H, Plt Count 238, MPV 12.8 H, Immature Gran % (Auto) 0.800, Neut % (Auto) 93.0 H, Lymph % (Auto) 4.6 L, Ashe % (Auto) 1.5, Eos % (Auto) 0.0, Baso % (Auto) 0.1, Absolute Neuts (auto) 10.2 H, Absolute Lymphs (auto) 0.50 L, Nucleated RBC % 0.4, Sodium 145, Potassium 4.7, Chloride 110 H, Carbon Dioxide 33.0 H, Anion Gap 2 L, BUN 36 H, Creatinine 0.80, Estim Creat Clear Calc 64.02, Est GFR (MDRD) Af Amer 88, Est GFR (MDRD) Non-Af 73, BUN/Creatinine Ratio 44.8 H, Glucose 168 H, Calcium 9.3, Troponin I High Sens 66 H 09/11/23 23:49: Lactic Acid 0.8 09/12/23 03:10: WBC 10.6, RBC 4.00 L, Hgb 9.7 L, Hct 36.8 L, MCV 92.0, MCH 24.3 L, MCHC 26.4 L, RDW Std Deviation 61.6 H, RDW Coeff of Laura 18.3 H, Plt Count 267, MPV 12.3 H, Immature Gran % (Auto) 0.800, Neut % (Auto) 88.1 H, Lymph % (Auto) 6.4 L, Ashe % (Auto) 4.5, Eos % (Auto) 0.0, Baso % (Auto) 0.2, Absolute Neuts (auto) 9.3 H, Absolute Lymphs (auto) 0.67 L, Nucleated RBC % 0.3, Sodium 146 H, Potassium 4.9, Chloride 109 H, Carbon Dioxide 34.0 H, Anion Gap 3 L, BUN 36 H, Creatinine 0.81, Estim Creat Clear Calc 60.97, Est GFR (MDRD) Af Amer 88, Est GFR (MDRD) Non-Af 72, BUN/Creatinine Ratio 44.4 H, Glucose 143 H, Calcium 8.9, Phosphorus 4.6, Magnesium 2.4, Total Bilirubin 1.00, AST 30, ALT 29, Alkaline Phosphatase 105, Troponin I High Sens 63 H, Total Protein 7.1, Albumin 3.0 L, Globulin 4.1, Albumin/Globulin Ratio 0.7 L, TSH 0.34 L, Free T4 0.85 09/12/23 03:30: PT 37.1 H, INR 3.8 Micro: Microbiology 09/12/23 00:20 Mucosa - Nose SARS-CoV-2, Influenza & RSV (PCR) - Final ABG Data ABG results: ABG 09/11/23 09/12/23 23:50 04:24 Specimen Type ART ART Sample Site L Radial R Radial pH 7.18 L* 7.22 L Bicarbonate Actual 35.0 H 35.4 H Total CO2 38 38 Base Excess 7 H 8 H O2 Saturation 91 L 89 L O2 % 40.0 30.0 ABG pCO2 94.3 H* 86.9 H* ABG pO2 82 71 L Mj Test Positive Positive Respiration Rate 12 O2 Delivery Device BiPAP Not entered Vent Mode Not entered BiLevel Tidal Volume 500.0 POC PEEP 8 Crit Call To/Read Back Yes Yes Blood Gas Notified Whom amoramrita freedman Blood Gas Notified Time 23:52:16 04:26:06 Clinical Comments bipap 14/8 Attestation: I personally reviewed and interpreted this ABG as follows: (See HPI. Slight improvement in respiratory acidosis) Rhythm Strip Rhythm Strip: Paced Rate: 60 Ectopy: None Imaging Radiology Impression Brain CT 09/11/23 23:39 IMPRESSION: Chronic involutional and white matter changes. No evidence of acute intracranial abnormality. Left sphenoid sinus disease. Electronically Signed: Reji Rosario MD at 0:46 EST , Ankle X-Ray 09/12/23 00:00 IMPRESSION: No significant injury Electronically Signed: Reji Rosario MD at 0:50 EST , Chest X-Ray 09/12/23 00:00 IMPRESSION: Bibasilar scarring and/or atelectasis Electronically Signed: Reji Rosario MD at 1:03 EST , Charges/Coding Visit Charges Inpatient E&M: 62685 Init Hosp L3
--- NOTE | 2023-09-12 07:09 | PCM.PN.HOSP ---
Reason for Visit Reason for Visit: Diagnoses Metabolic encephalopathy (09/12/23) Chronic obstructive pulmonary disease with (acute) exacerbation (09/12/23) Acute and chronic respiratory failure with hypercapnia (09/12/23) Other abnormalities of breathing (09/12/23) Objective Data Objective Data Vital Signs: Vital Signs Temp Pulse Resp BP Pulse Ox O2 Del Method O2 Flow Rate 97.9 F 60 16 140/64 H 95 Bi-pap 15 09/12/23 05:00 09/12/23 07:00 09/12/23 07:00 09/12/23 07:00 09/12/23 07:00 09/12/23 07:00 09/11/23 23:18 FiO2 30 09/12/23 07:00 Oxygen Flow Rate (L/min) 15 Oxygen Delivery Method Bi-pap Weight: 197 lb 1.492 oz Body Mass Index (BMI) 32.8 Intake & Output: Intake and Output for Last 24 Hours 09/10/23 09/11/23 09/12/23 23:59 23:59 23:59 Intake Total Balance Lab / Micro Data 09/12/23 03:10 09/12/23 03:10 Labs: Laboratory Results - last 24 hr 09/11/23 23:34: WBC 11.0, RBC 4.09 L, Hgb 9.9 L, Hct 37.9, MCV 92.7, MCH 24.2 L, MCHC 26.1 L, RDW Std Deviation 62.9 H, RDW Coeff of Laura 18.6 H, Plt Count 238, MPV 12.8 H, Immature Gran % (Auto) 0.800, Neut % (Auto) 93.0 H, Lymph % (Auto) 4.6 L, Swift % (Auto) 1.5, Eos % (Auto) 0.0, Baso % (Auto) 0.1, Absolute Neuts (auto) 10.2 H, Absolute Lymphs (auto) 0.50 L, Nucleated RBC % 0.4, Sodium 145, Potassium 4.7, Chloride 110 H, Carbon Dioxide 33.0 H, Anion Gap 2 L, BUN 36 H, Creatinine 0.80, Estim Creat Clear Calc 64.02, Est GFR (MDRD) Af Amer 88, Est GFR (MDRD) Non-Af 73, BUN/Creatinine Ratio 44.8 H, Glucose 168 H, Calcium 9.3, Troponin I High Sens 66 H 09/11/23 23:49: Lactic Acid 0.8 09/12/23 03:10: WBC 10.6, RBC 4.00 L, Hgb 9.7 L, Hct 36.8 L, MCV 92.0, MCH 24.3 L, MCHC 26.4 L, RDW Std Deviation 61.6 H, RDW Coeff of Laura 18.3 H, Plt Count 267, MPV 12.3 H, Immature Gran % (Auto) 0.800, Neut % (Auto) 88.1 H, Lymph % (Auto) 6.4 L, Swift % (Auto) 4.5, Eos % (Auto) 0.0, Baso % (Auto) 0.2, Absolute Neuts (auto) 9.3 H, Absolute Lymphs (auto) 0.67 L, Nucleated RBC % 0.3, Sodium 146 H, Potassium 4.9, Chloride 109 H, Carbon Dioxide 34.0 H, Anion Gap 3 L, BUN 36 H, Creatinine 0.81, Estim Creat Clear Calc 60.97, Est GFR (MDRD) Af Amer 88, Est GFR (MDRD) Non-Af 72, BUN/Creatinine Ratio 44.4 H, Glucose 143 H, Calcium 8.9, Phosphorus 4.6, Magnesium 2.4, Total Bilirubin 1.00, AST 30, ALT 29, Alkaline Phosphatase 105, Troponin I High Sens 63 H, Total Protein 7.1, Albumin 3.0 L, Globulin 4.1, Albumin/Globulin Ratio 0.7 L, TSH 0.34 L, Free T4 0.85 09/12/23 03:30: PT 37.1 H, INR 3.8 Micro: Microbiology 09/12/23 00:20 Mucosa - Nose SARS-CoV-2, Influenza & RSV (PCR) - Final ABG Data ABG results: ABG 09/11/23 09/12/23 23:50 04:24 Specimen Type ART ART Sample Site L Radial R Radial pH 7.18 L* 7.22 L Bicarbonate Actual 35.0 H 35.4 H Total CO2 38 38 Base Excess 7 H 8 H O2 Saturation 91 L 89 L O2 % 40.0 30.0 ABG pCO2 94.3 H* 86.9 H* ABG pO2 82 71 L Mj Test Positive Positive Respiration Rate 12 O2 Delivery Device BiPAP Not entered Vent Mode Not entered BiLevel Tidal Volume 500.0 POC PEEP 8 Crit Call To/Read Back Yes Yes Blood Gas Notified Whom nataly freedman Blood Gas Notified Time 23:52:16 04:26:06 Clinical Comments bipap 14/8 Radiography Diagnostic Testing: Radiology Impression Brain CT 09/11/23 23:39 IMPRESSION: Chronic involutional and white matter changes. No evidence of acute intracranial abnormality. Left sphenoid sinus disease. Electronically Signed: Reji Rosario MD at 0:46 EST , Ankle X-Ray 09/12/23 00:00 IMPRESSION: No significant injury Electronically Signed: Reji Rosario MD at 0:50 EST , Chest X-Ray 09/12/23 00:00 IMPRESSION: Bibasilar scarring and/or atelectasis Electronically Signed: Reji Rosario MD at 1:03 EST , Rhythm Strip Rhythm Strip: Paced Rate: 60 Ectopy: None Physical Exam Narrative Patient was admitted for progressive worsening of shortness of breath, increased difficulty to breathe and then drowsy and lethargy difficult to arouse therefore transferred to ED by EMS from [facility]. Patient was 85% on 5 L of oxygen on CPAP there. DNR CCA without intubation Currently on BiPAP. Complain of chest tightness but not much cough or sputum production. Physical exam General: Alert, Oriented x3, Cooperative HEENT: Atraumatic, PERRLA, EOMI, Normocephalic Oral: On BiPAP/AVAPS Neck: Supple, No JVD, Negative Carotid Bruits Chest wall/Lungs: Air entry severely diminished, mostly like silent. No inspiratory rhonchi, dyspnea at rest Cardiovascular: Paced rhythm, Normal S1, Normal S2, No M/G/R Abdomen: Bowel Sounds Present, Soft, Non Tender, Non-Distended : No dysuria. No renal angle tenderness. No suprapubic tenderness. Extremities: Swelling/edema upper extremities and lower extremities, Capillary Refill Less than 3 Seconds Skin: Ecchymosis area present over lower legs Musculoskeletal: No Tenderness to Palpation of Joints or Extremities Neurological: Cranial nerves II-XII grossly intact, DTR 2+/4. No acute focal neurological deficit. Psych/Mental Status: Flat affect Assessment & Plan Assessment/Plan (1) COPD with acute exacerbation: (2) Acute and chronic respiratory failure with hypercapnia: (3) CO2 narcosis: (4) Metabolic encephalopathy: PLAN: Plan This is 77-year-old female admitted with severe worsening shortness of breath, lethargy, attended difficult to arouse, CO2 narcosis on BiPAP. 1. Acute exacerbation of COPD with DNR CCA; no intubation CODE STATUS - Admit to ICU. Patient is being managed on scheduled bronchodilator, IV Solu-Medrol, Mucinex, incentive spirometry and Pep. 2. [id number] hypoxic/hypercapnic respiratory failure requiring BiPAP/AVAPS due to COPD exacerbation: Admitting ABG showed 7.18/94 pCO2 on 40% FiO2 BiPAP which improved to 7.22/87 on AVAPS tidal volume 500, PEEP 8 on 30% FiO2. On IV Zosyn 3. Severe metabolic encephalopathy due to CO2 narcosis -continue AVAPS. Patient is awake and talking and she asked for water but currently NPO. 4. Obesity; with BMI 33.9 this admission plus obstructive sleep apnea; on BiPAP - Weight loss will be recommended but is unlikely given patient's age and multiple comorbidities. Resume BiPAP as previous. 5. Essential hypertension - Hold scheduled antihypertensives until patient's condition stabilizes. If as needed IV hydralazine for systolic blood pressure greater than 160 mm Hg. 6. Hyperlipidemia - Continue statin. 7. History of DVT/PE; on Coumadin -INR 3.8 check daily PT/INR. 8. History of pulmonary hypertension - Noted. 9. History of atrial fibrillation - Noted. 10. History of SSS; status post permanent pacemaker -paced rhythm. 11. History of CHF -currently not in exacerbation 12. Chronic venous insufficiency - Noted. 13. Depression - Continue current regimen. 14. GERD - Resume PPI. 15. Osteoarthritis - Give Tylenol prn. 16. DVT prophylaxis -supratherapeutic INR check daily PT/INR. Charges/Coding Visit Charges Inpatient E&M: 50144 [facility] Hosp L3
[2023-09-12] MEDS: Ipratropium/Albuterol Sulfate 3 ML AMPUL.NEB INHALATION ×3 (07:35→18:59)
[2023-09-12 09:07] LABS: Allen Test Positive; Base Excess 8 mmol/L (-2 to +2); Bicarbonate 33.9 mmol/L (22-26); Blood Gas Specimen Type ART; Mode Not entered; O2 Delivery Device BiPAP; PEEP 8; PO2 80 mmHG (75-100); RR 12; SITE L Brach; SO2 94 % (95-99); Total Carbon Dioxide 36 mmol/L; pCO2 68.6 mmHg (35-45)
[2023-09-12] MEDS: Pantoprazole Sodium 40 MG in 0.9% Normal Saline (100mL MB+) 100 ML 330 MG IV (09:46)
--- NOTE | 2023-09-12 10:14 | CASEMGMT ---
Addendum entered by Lizabeth Ramírez 09/12/23 15:39: Social Work SW received confirmation from [facility] that pt can return whenever ready. TRINI Gomez Addendum entered by Lizabeth Ramírez 09/12/23 14:55: Social Work SW sent updates to [facility] in [facility]. TRINI Gomez Original Note: Social Work SW participated in ICU rounds, pt's daughters here. SW spoke w/daughter Irene after rounds. SW confirmed plan will be for pt to return to [facility] at discharge, no SNF list needed at this time. SW will continue to follow. TRINI Gomez
--- NOTE | 2023-09-12 12:20 | RAD_ITS ---
EXAM: XR CHEST, 1 VIEW CLINICAL INDICATION: AE COPD TECHNIQUE: Frontal view of the chest. COMPARISON: 09/12/2023 at 0021 hours FINDINGS: LUNGS AND PLEURAL SPACES: Bibasilar pulmonary opacities may be scarring, atelectasis, or pneumonia similar in appearance to the prior examination. No pneumothorax. No effusion. HEART: No significant abnormality. Cardiac silhouette not enlarged. MEDIASTINUM: Central airways and mediastinal contour are unremarkable. BONES/JOINTS: No significant abnormality. No acute fracture. SOFT TISSUES: No significant abnormality. VASCULATURE: Atherosclerosis. TUBES, LINES AND DEVICES: Left-sided cardiac pacer. RAD/Chest 1 View (Portable) IMPRESSION: Bibasilar pulmonary opacities may be scarring, atelectasis, or pneumonia similar in appearance to the prior examination. Electronically Signed: Freddy Albrecht DO at 22:18 EST ,
[2023-09-12] MEDS: Losartan Potassium 50 MG Tablet PO (12:35)
[2023-09-12] MEDS: Acetaminophen 325 MG Tablet 650 MG PO (13:25)
[2023-09-13] VITALS (31 sets, daily range): BP systolic 117–166; BP diastolic 52–81; PULSE 60; RESP 12–28; TEMP 36.3–36.8; O2SAT 92–100; BMI 32.8
[2023-09-13] MEDS: Piperacil/Tazobactam 3.375 GM in 0.9% Normal Saline (50mL MB+) 50 ML IV ×3 (05:15→20:37)
[2023-09-13] MEDS: 0.9% Saline Lock 10 ML Syringe IV ×2 (05:15→20:37)
[2023-09-13 05:29] LABS: Hematocrit 31.4 % (37-47); Hemoglobin 8.5 g/dL (12.0-15.0); Mean Corp Hgb Conc 27.1 g/dL (32-36); Mean Corpuscular Hgb 24.3 pg (27.0-32.0); Mean Corpuscular Volume 89.7 fL (81-99); Mean Platelet Vol. 12.2 fl (6.2-12.0); Platelet Count 267 K/mm3 (150-450); RBC Distribution Width CV 18.1 % (11.6-14.6)
[2023-09-13 05:42] LABS: Prothrombin Time (Protime)PT. 43.1 SECONDS (11.7-14.9)
[2023-09-13 05:46] LABS: Anion Gap 0 (5-15); BUN 43 mg/dL (7-18); BUN/Creat Ratio 66.1 RATIO (10-20); Calcium,Total 8.8 mg/dL (8.5-10.1); Chloride 111 mmol/L (98-107); Creatinine, Serum 0.65 mg/dL (0.55-1.02); EST Glomerular Filtration Rate 93 mL/min (>60); Est Glom Filt Rate - Afr Amer 113 mL/min (>60); Estimated Creatinine Clearance 61.66 ml/min; Glucose 133 mg/dL (74-106); Sodium Level 148 mmol/L (136-145)
[2023-09-13 06:00] LABS: International Normalized Ratio 4.6
[2023-09-13] MEDS: Ipratropium/Albuterol Sulfate 3 ML AMPUL.NEB INHALATION ×5 (07:03→23:07)
--- NOTE | 2023-09-13 07:14 | PCM.PN.INT ---
Assessment & Plan Assessment/Plan (1) Acute and chronic respiratory failure with hypercapnia: (2) COPD with acute exacerbation: (3) CO2 narcosis: PLAN: Plan RECOMMENDATIONS: 1. Continue Solu-Medrol 40 IV every 8 2. Add vitamin K p.o. 3. Daily INRs 4. Attempt BiPAP breaks pending improvement in mentation 5. Keep oxygen saturations between 90 and 94% 6. Okay to continue with baseline diuretics 7. Agree with broad-spectrum antibiotics pending cultures IMPRESSIONS: 1. Metabolic encephalopathy secondary to acute on chronic hypercarbic respiratory failure secondary to COPD exacerbation Unclear etiology at this time. Viral screen was negative. Patient does not have any significant change in infiltrates on chest x-ray. Patient will continue on BiPAP for now. Will attempt BiPAP breaks during the day today. Patient does have permissive hypercapnia, but noted to be a DNR/DNI. Will discontinue IV fluids and continue baseline diuretics. Continue bronchodilators, empiric antibiotics and systemic steroids. Extremely guarded prognosis at this time. Low clinical suspicion for PE given supratherapeutic INR 2. Supratherapeutic INR Patient's INR is elevated, but there is no indication of ongoing bleeding at this time. Will continue to hold Coumadin for now. Patient is on antibiotics, which can protract INR. Patient will be given a dose of vitamin K as there was a drop in hemoglobin despite no clinical bleeding 3. Obesity/hypertension/hyperlipidemia/history of PE/SSS/GERD/osteoarthritis/advanced age Complicates care, management, recovery and prognosis. Antihypertensives have been held as patient is currently n.p.o. given mental status. May be started on as needed antihypertensives if necessary. Patient is on PPI. Clinical suspicion for marginal increase in troponin secondary to hypoxia and cardiac strain given problem #1. Patient does have a history of being DNR/DNI Subjective Subjective Patient did okay overnight. Patient was able to take 1 to 2-hour breaks off of BiPAP yesterday. Patient subjectively feels slightly improved compared to yesterday. Patient does have an allergy to CANDIE inhibitor, but appears to be tolerating ARB well with no complaints of increased cough. Objective Data Objective Data Vital Signs: Vital Signs Temp Pulse Resp BP Pulse Ox O2 Del Method O2 Flow Rate 36.4 C L 60 18 165/71 H 92 Bi-pap 3 09/13/23 05:00 09/13/23 06:59 09/13/23 06:59 09/13/23 06:59 09/13/23 06:59 09/13/23 06:59 09/12/23 16:27 FiO2 25 09/13/23 06:59 Oxygen Flow Rate (L/min) 3 Oxygen Delivery Method Bi-pap Weight: 89.2 kg Body Mass Index (BMI) 32.8 Intake & Output: Intake and Output for Last 24 Hours 09/11/23 09/12/23 09/13/23 23:59 23:59 23:59 Intake Total 763 / 763 Output Total 450 / 450 300 / 300 Balance 313 / 313 -300 / -300 Lab / Micro Data Attestation: I reviewed the patient's lab results. 09/13/23 05:15 09/13/23 05:15 Labs: Laboratory Results - last 24 hr 09/13/23 05:15: WBC 11.0, RBC 3.50 L, Hgb 8.5 L, Hct 31.4 L, MCV 89.7, MCH 24.3 L, MCHC 27.1 L, RDW Std Deviation 59.0 H, RDW Coeff of Laura 18.1 H, Plt Count 267, MPV 12.2 H, PT 43.1 H, INR 4.6 H*, Sodium 148 H, Potassium 4.0, Chloride 111 H, Carbon Dioxide 37.0 H, Anion Gap 0 L, BUN 43 H, Creatinine 0.65, Estim Creat Clear Calc 61.66, Est GFR (MDRD) Af Amer 113, Est GFR (MDRD) Non-Af 93, BUN/Creatinine Ratio 66.1 H, Glucose 133 H, Calcium 8.8 Micro: Microbiology 09/12/23 00:20 Mucosa - Nose SARS-CoV-2, Influenza & RSV (PCR) - Final ABG Data ABG results: ABG 09/12/23 09:00 Specimen Type ART Sample Site L Brach pH 7.30 L Bicarbonate Actual 33.9 H Total CO2 36 Base Excess 8 H O2 Saturation 94 L O2 % 30.0 ABG pCO2 68.6 H* ABG pO2 80 Mj Test Positive Respiration Rate 12 O2 Delivery Device BiPAP Vent Mode Not entered Tidal Volume 500.0 POC PEEP 8 Crit Call To/Read Back Yes Blood Gas Notified Whom dr sheth Blood Gas Notified Time 09:04:10 Attestation: I personally reviewed and interpreted this ABG as follows: (Continued improvement on acute on chronic respiratory acidosis) Radiography Diagnostic Testing: Radiology Impression Chest X-Ray 09/12/23 12:20 IMPRESSION: Bibasilar pulmonary opacities may be scarring, atelectasis, or pneumonia similar in appearance to the prior examination. Electronically Signed: Freddy VAmna Albrecht, at 22:18 EST , Rhythm Strip Rhythm Strip: Paced Rate: 60 Ectopy: None Physical Exam Const Constitutional Narrative: Patient is slightly more interactive on BiPAP. Good BiPAP synchrony noted. RASS -1. Good BiPAP seal noted HEENT normocephalic, head/scalp atraumatic and moist oral mucous membranes Eyes PERRL and EOMs intact bilaterally Neck no lymphadenopathy and supple Resp Resp Narrative: Symmetric expansion noted Auscultation: diminished lung sounds; Negative for rales, rhonchi or wheezes Cardio regular rate, regular rhythm, S1 normal heart sound, S2 normal heart sound, no murmurs, no rub and no gallops GI normal to inspection, nondistended, normoactive bowel sounds, soft to palpation, non-tender and non-distended Extremity no clubbing, cyanosis or edema Skin Skin Narrative: Some scattered ecchymotic areas noted. None with significant induration Neuro moves all extremities and no focal motor deficits Psych Mood & Affect: flat affect Charges/Coding Visit Charges Inpatient E&M: 32681 Subs Hosp L3
[2023-09-13] MEDS: Phytonadione (Vit K1) 5 MG TABLET PO (07:50)
--- NOTE | 2023-09-13 08:09 | PCM.PN.HOSP ---
Reason for Visit Reason for Visit: Altered level of consciousness Subjective Subjective Mrs. Quinn is a 77-year-old female with a history of COPD who requires chronic oxygen supplementation at 2 to 3 L at baseline and ANKUSH (compliant on BiPAP at the [facility]) who presented to emergency department with her daughter for increased somnolence on 09/11/2023. She had been seen in the ER earlier that day for shortness of breath and was diagnosed with acute exacerbation of COPD and discharged back to the [facility]. The patient did not have any increased oxygen demands on presentation but just was more sleepy and hard to arouse. [facility] saturations at the [facility] were 85% on 5 L bled into her CPAP and patient's p.o. intake had been poor on the day of presentation. She was transferred via EMS and placed immediately on noninvasive ventilation. Daughter reports at baseline she is alert and oriented x 3 and interacts appropriately. She was noted to be DNR without intubation on presentation. Other than her hypoxia she was afebrile and found to have a respiratory rate of 23 with a blood pressure 161/66 and a heart rate of 60. Laboratory data demonstrated elevated white count 11, hemoglobin of 9.9 which is consistent with her baseline and her chemistry showed an elevated serum bicarb of 33, chloride of 110 and a serum creatinine of 0.8. Her glucose was 168. Troponin was normal and lactate was normal. Initial ABG in the emergency department just after BiPAP placement was pH of 7.18/pCO2 of 94.3/pO2 of 82 with a sat of 91%. It does appear she has chronic hypercapnia with a baseline pCO2 of likely between [address] of the brain was unremarkable. Chest x-ray showed bibasilar scarring with no acute infiltrates. CT of the ankle was unremarkable. No CTA was performed as patient is fully anticoagulated with Coumadin. She was admitted to the ICU on BiPAP. Pulmonary medicine was consulted and is following. She was maintained on IV Solu-Medrol. Her INR was noted to be supratherapeutic and Coumadin was held. She had no bleeding at that time so no vitamin K was given. Patient is doing much better today. Mentation is back to baseline and she is sitting up in a chair at the bedside. Complains that she wants to get back to bed and wants a diet. I did not instruct her that she will need to set up what she eats to avoid aspiration. She was somewhat resistant however agreeable when she found she was going to be able to get some food. No other complaints. States she is about 50% better since admission. Objective Data Objective Data Vital Signs: Vital Signs Temp Pulse Resp BP Pulse Ox O2 Del Method O2 Flow Rate 97.6 F L 60 14 165/71 H 100 Nasal Cannula 3 09/13/23 05:00 09/13/23 07:03 09/13/23 07:03 09/13/23 06:59 09/13/23 07:03 09/13/23 07:03 09/13/23 07:03 FiO2 25 09/13/23 06:59 Oxygen Flow Rate (L/min) 3 Oxygen Delivery Method Nasal Cannula Weight: 89.2 kg Body Mass Index (BMI) 32.8 Intake & Output: Intake and Output for Last 24 Hours 09/11/23 09/12/23 09/13/23 23:59 23:59 23:59 Intake Total 763 / 763 Output Total 450 / 450 300 / 300 Balance 313 / 313 -300 / -300 Lab / Micro Data 09/13/23 05:15 09/13/23 05:15 Labs: Laboratory Results - last 24 hr 09/13/23 05:15: WBC 11.0, RBC 3.50 L, Hgb 8.5 L, Hct 31.4 L, MCV 89.7, MCH 24.3 L, MCHC 27.1 L, RDW Std Deviation 59.0 H, RDW Coeff of Laura 18.1 H, Plt Count 267, MPV 12.2 H, PT 43.1 H, INR 4.6 H*, Sodium 148 H, Potassium 4.0, Chloride 111 H, Carbon Dioxide 37.0 H, Anion Gap 0 L, BUN 43 H, Creatinine 0.65, Estim Creat Clear Calc 61.66, Est GFR (MDRD) Af Amer 113, Est GFR (MDRD) Non-Af 93, BUN/Creatinine Ratio 66.1 H, Glucose 133 H, Calcium 8.8 Micro: Microbiology 09/12/23 00:20 Mucosa - Nose SARS-CoV-2, Influenza & RSV (PCR) - Final ABG Data ABG results: ABG 09/12/23 09:00 Specimen Type ART Sample Site L Brach pH 7.30 L Bicarbonate Actual 33.9 H Total CO2 36 Base Excess 8 H O2 Saturation 94 L O2 % 30.0 ABG pCO2 68.6 H* ABG pO2 80 Mj Test Positive Respiration Rate 12 O2 Delivery Device BiPAP Vent Mode Not entered Tidal Volume 500.0 POC PEEP 8 Crit Call To/Read Back Yes Blood Gas Notified Whom dr sheth Blood Gas Notified Time 09:04:10 Radiography Diagnostic Testing: Radiology Impression Chest X-Ray 09/12/23 12:20 IMPRESSION: Bibasilar pulmonary opacities may be scarring, atelectasis, or pneumonia similar in appearance to the prior examination. Electronically Signed: Freddy Albrecht, at 22:18 EST , Rhythm Strip Rhythm Strip: Paced Rate: 60 Ectopy: None Physical Exam Const alert, oriented x3, no apparent distress and well nourished; Negative for average body habitus or healthy appearing Constitutional Narrative: Obese, older, white female, sitting up in a chair at the bedside, daughter at bedside, patient appears comfortable and nontoxic HEENT head/scalp atraumatic and moist oral mucous membranes HEENT Narrative: Mallampati 3-4, no thrush Resp normal respiratory effort, no retractions, no use of accessory muscles and clear to auscultation bilaterally Resp Narrative: Diffusely diminished with some conversational dyspnea however no distress noted at rest, no signs of extremis and mental status is better Auscultation: Negative for rales, rhonchi or wheezes Cardio regular rate, regular rhythm, S1 normal heart sound, S2 normal heart sound, no murmurs, no rub, no gallops and no clicks Cardio Narrative: Intermittent ectopy GI normal to inspection, nondistended, normoactive bowel sounds, soft to palpation and non-tender GI Narrative: Large protuberant abdomen Extremity Extremity Narrative: 1+ pitting edema bilateral lower extremities Neuro oriented x3, moves all extremities and no focal motor deficits Speech: speech normal Psych Psych Narrative: Patient somewhat agitated that she needs to still be up in a chair, interacts appropriately otherwise Assessment & Plan Assessment/Plan (1) Metabolic encephalopathy: (2) COPD with acute exacerbation: (3) Acute and chronic respiratory failure with hypercapnia: PLAN: Plan Acute on chronic hypercapnic respiratory failure with chronic hypoxic respiratory failure secondary to acute exacerbation of COPD -Chest x-ray is unremarkable -Respiratory viral panel unremarkable -COVID/flu/RSV unremarkable -Continue Solu-Medrol -Continue pulmonary toilet -I-S/Acapella when off BiPAP -Was able to take 1 to 2-hour breaks off BiPAP yesterday and did well -Continue to slowly wean BiPAP with improved mentation -Keep oxygen saturations between 90 and 94% -Continue broad-spectrum antibiotics until cultures have been finalized Supratherapeutic INR -Vitamin K given last evening for some nosebleeding -Hemoglobin is stable -Repeat INR in a.m. Toxic/metabolic encephalopathy secondary to hypercapnia -Resolved with improved respiratory status Chronic anemia -Hemoglobin with a slight drop -Baseline appears to be between 9.5 and 11 -Currently 8.5 -Will monitor with repeat CBC in a.m. -Continue to monitor INR Chronic hypoxic respiratory failure secondary to COPD/pulmonary hypertension -Lasix 20 mg daily started -Continue treatment as noted above -At baseline patient is on 3 L [id number] -Continue home azithromycin which she takes 250 mg 3 times weekly -Pulmonary medicine is following-appreciate input History of ANKUSH -Continue BiPAP with naps and nocturnally Essential hypertension -Home Lasix reinitiated -Patient also takes acetazolamide okay to restart this as well -On no other antihypertensives History of DVT/PE -INR is supratherapeutic and Coumadin is on hold -Low-dose vitamin K given -Repeat in a.m. History of atrial fibrillation/SSS -Coumadin on hold due to supratherapeutic INR -History of pacemaker placement -Patient is not on any rate controlling medication Chronic pain/neuropathy/OA -Continue home medications -Patient is not on any narcotics chronically GERD -Continue home PPI Anxiety/depression -Restart home lorazepam but hold for sedation Obesity -BMI 32.8 -Recommend weight loss -Complicates treatment, prognosis, outcomes DVT prophylaxis -Supratherapeutic INR -Repeat INR in a.m. CODE STATUS -DNR CCA with no intubation Charges/Coding Visit Charges Inpatient E&M: 14190 Subs Hosp L2
[2023-09-13] MEDS: Citalopram 20 MG Tablet PO (11:10)
[2023-09-13] MEDS: Docusate Sodium 100 MG Capsule PO ×2 (11:10→20:37)
[2023-09-13] MEDS: AcetaZOLAMIDE 250 MG Tablet PO ×2 (11:11→20:37)
[2023-09-13] MEDS: Cholecalciferol (VIT D3) 25 MCG TABLET (1,000 UNITS) 50 MCG PO (11:11)
[2023-09-13] MEDS: Multivitamin (Healthy Eyes) Capsule 1 CAP PO ×2 (11:11→20:37)
[2023-09-13] MEDS: LORazepam 0.5 MG Tablet PO ×2 (11:11→20:37)
[2023-09-13] MEDS: Pantoprazole Sodium 40 MG in 0.9% Normal Saline (100mL MB+) 100 ML 330 MG IV (11:11)
[2023-09-13] MEDS: Cyanocobalamin 500 MCG Tablet PO (11:11)
[2023-09-13] MEDS: Losartan Potassium 100 MG Tablet PO (11:11)
[2023-09-13] MEDS: Furosemide 20 MG Tablet PO (11:11)
[2023-09-13] MEDS: Gabapentin 300 MG Capsule PO (20:37)
[2023-09-14] VITALS (16 sets, daily range): BP systolic 124–154; BP diastolic 54–81; PULSE 60–61; RESP 12–29; TEMP 35.9–36.8; O2SAT 93–99; BMI 33.3
[2023-09-14] MEDS: Piperacil/Tazobactam 3.375 GM in 0.9% Normal Saline (50mL MB+) 50 ML IV ×3 (05:10→20:40)
[2023-09-14 06:40] LABS: Anion Gap 2 (5-15); BUN 43 mg/dL (7-18); BUN/Creat Ratio 56.4 RATIO (10-20); Calcium,Total 8.8 mg/dL (8.5-10.1); Chloride 109 mmol/L (98-107); Creatinine, Serum 0.76 mg/dL (0.55-1.02); EST Glomerular Filtration Rate 78 mL/min (>60); Est Glom Filt Rate - Afr Amer 94 mL/min (>60); Estimated Creatinine Clearance 61.66 ml/min; Glucose 139 mg/dL (74-106); Potassium 3.7 mmol/L (3.5-5.1); Sodium Level 146 mmol/L (136-145)
[2023-09-14 06:48] LABS: Hemoglobin 8.6 g/dL (12.0-15.0); Mean Corp Hgb Conc 27.7 g/dL (32-36); Mean Corpuscular Hgb 24.8 pg (27.0-32.0); Mean Corpuscular Volume 89.3 fL (81-99); Mean Platelet Vol. 12.8 fl (6.2-12.0); Platelet Count 271 K/mm3 (150-450); RBC Distribution Width CV 18.6 % (11.6-14.6); RBC Distribution Width SD 60.6 fl (35.1-43.9); Red Blood Count 3.47 M/mm3 (4.2-5.4); White Blood Count 10.5 K/mm3 (4.4-11.0)
[2023-09-14] MEDS: Ipratropium/Albuterol Sulfate 3 ML AMPUL.NEB INHALATION ×5 (07:13→22:20)
[2023-09-14 07:52] LABS: International Normalized Ratio 1.4; Prothrombin Time (Protime)PT. 17.5 SECONDS (11.7-14.9)
--- NOTE | 2023-09-14 08:12 | PN.CC_ITS ---
Assessment & Plan Assessment/Plan (1) Acute and chronic respiratory failure with hypercapnia: (2) COPD with acute exacerbation: (3) CO2 narcosis: PLAN: Plan RECOMMENDATIONS: 1. Transition to prednisone and wean over 12 to 14 days 2. Okay to reinitiate Coumadin therapy 3. Daily INRs 4. Continue BiPAP with all sleep 5. Keep oxygen saturations between 90 and 94% 6. Okay to continue with baseline diuretics 7. Consider discontinuation of antibiotics if culture negative at 48 hours 8. Okay to leave the intensive care unit from my perspective. Possible discharge tomorrow. IMPRESSIONS: 1. Metabolic encephalopathy secondary to acute on chronic hypercarbic respiratory failure secondary to COPD exacerbation Unclear etiology at this time. Viral screen was negative. Patient does not have any significant change in infiltrates on chest x-ray. Patient will continue on BiPAP for now. Will attempt BiPAP breaks during the day today. Patient does have permissive hypercapnia, but noted to be a DNR/DNI. Patient appears to be doing well at this time. Exact etiology is still unclear, but patient has responded to steroids well. Will transition to prednisone therapy and this can be weaned over the next 12 to 14 days. 2. Supratherapeutic INR INR normalized after vitamin K. Given this is for A-fib, Coumadin can likely be reinitiated in a stepwise fashion. Hemoglobin has remained stable and cessation of antibiotics should help with prolongation of PT 3. Obesity/hypertension/hyperlipidemia/history of PE/SSS/GERD/osteoarthritis/advanced age Complicates care, management, recovery and prognosis. Antihypertensives have been held as patient is currently n.p.o. given mental status. May be started on as needed antihypertensives if necessary. Patient is on PPI. Clinical suspicion for marginal increase in troponin secondary to hypoxia and cardiac strain given problem #1. Patient does have a history of being DNR/DNI Subjective Subjective Patient did well overnight. Patient was able to stay off of BiPAP for an extended period of time yesterday. Patient used BiPAP only with sleep. Patient states her mentation is back to normal and family agrees. No bleeding has been reported. Objective Data Objective Data Vital Signs: Vital Signs Temp Pulse Resp BP Pulse Ox O2 Del Method O2 Flow Rate 36.6 C 60 16 151/79 H 96 Nasal Cannula 2 09/14/23 04:00 09/14/23 07:13 09/14/23 07:13 09/14/23 07:00 09/14/23 07:13 09/14/23 07:13 09/14/23 07:13 FiO2 25 09/14/23 07:00 Oxygen Flow Rate (L/min) 2 Oxygen Delivery Method Nasal Cannula Weight: 90.6 kg Body Mass Index (BMI) 33.3 Intake & Output: Intake and Output for Last 24 Hours 09/12/23 09/13/23 09/14/23 23:59 23:59 23:59 Intake Total 763 / 763 410 / 410 80 / 80 Output Total 450 / 450 850 / 850 Balance 313 / 313 -440 / -440 80 / 80 Lab / Micro Data Attestation: I reviewed the patient's lab results. 09/14/23 03:25 09/14/23 03:25 Labs: Laboratory Results - last 24 hr 09/14/23 03:25: WBC 10.5, RBC 3.47 L, Hgb 8.6 L, Hct 31.0 L, MCV 89.3, MCH 24.8 L, MCHC 27.7 L, RDW Std Deviation 60.6 H, RDW Coeff of Laura 18.6 H, Plt Count 271, MPV 12.8 H, PT 17.5 H, INR 1.4, Sodium 146 H, Potassium 3.7, Chloride 109 H , Carbon Dioxide 35.0 H, Anion Gap 2 L, BUN 43 H, Creatinine 0.76, Estim Creat Clear Calc 61.66, Est GFR (MDRD) Af Amer 94, Est GFR (MDRD) Non-Af 78, BUN/Creatinine Ratio 56.4 H, Glucose 139 H, Calcium 8.8 Micro: Microbiology 09/12/23 00:20 Mucosa - Nose SARS-CoV-2, Influenza & RSV (PCR) - Final Rhythm Strip Rhythm Strip: Paced Rate: 60 Ectopy: None Physical Exam Const Constitutional Narrative: Patient seen while on BiPAP therapy. No significant leak noted. Mentation back to normal. HEENT normocephalic, head/scalp atraumatic, hearing grossly normal bilaterally and moist oral mucous membranes Eyes PERRL and EOMs intact bilaterally Neck no lymphadenopathy and supple Resp Resp Narrative: Symmetric expansion noted Auscultation: diminished lung sounds; Negative for rales, rhonchi or wheezes Cardio regular rate, regular rhythm, S1 normal heart sound, S2 normal heart sound, no murmurs, no rub and no gallops GI normal to inspection, nondistended, normoactive bowel sounds, soft to palpation, non-tender and non-distended Extremity no clubbing, cyanosis or edema Skin Skin Narrative: Some scattered ecchymotic areas noted. None with significant induration Neuro moves all extremities and no focal motor deficits Psych cooperative and affect normal Charges/Coding Visit Charges Inpatient E&M: 83286 Subs Hosp L2
[2023-09-14] MEDS: Polyethylene Glycol 3350 17 GM PACKET PO (08:20)
[2023-09-14] MEDS: Acetaminophen 325 MG Tablet 650 MG PO (08:22)
[2023-09-14] MEDS: Losartan Potassium 100 MG Tablet PO (08:24)
[2023-09-14] MEDS: Furosemide 20 MG Tablet PO (08:24)
[2023-09-14] MEDS: Citalopram 20 MG Tablet PO (08:24)
[2023-09-14] MEDS: AcetaZOLAMIDE 250 MG Tablet PO ×2 (08:24→20:40)
[2023-09-14] MEDS: Multivitamin (Healthy Eyes) Capsule 1 CAP PO ×2 (08:24→20:40)
[2023-09-14] MEDS: Docusate Sodium 100 MG Capsule PO ×2 (08:24→20:40)
[2023-09-14] MEDS: Cyanocobalamin 500 MCG Tablet PO (08:25)
[2023-09-14] MEDS: Cholecalciferol (VIT D3) 25 MCG TABLET (1,000 UNITS) 50 MCG PO (08:25)
[2023-09-14] MEDS: LORazepam 0.5 MG Tablet PO ×2 (08:28→20:40)
[2023-09-14] MEDS: Pantoprazole Sodium 40 MG Tablet PO (08:31)
--- NOTE | 2023-09-14 14:44 | PN.HOSP_ITS ---
Reason for Visit Reason for Visit: Altered mental status Subjective Subjective Patient was able to remain off BiPAP on her baseline oxygen for most of the day yesterday. Was compliant with BiPAP at night. Patient reports she is about 60% better since admission. Appears comfortable sitting up in a chair at the time of my evaluation and mood seems to be better. Objective Data Objective Data Vital Signs: Vital Signs Temp Pulse Resp BP Pulse Ox O2 Del Method O2 Flow Rate 97.4 F L 60 22 H 135/64 H 93 Nasal Cannula 2 09/14/23 08:15 09/14/23 14:13 09/14/23 14:13 09/14/23 08:15 09/14/23 14:13 09/14/23 14:13 09/14/23 14:13 FiO2 25 09/14/23 07:00 Oxygen Flow Rate (L/min) 2 Oxygen Delivery Method Nasal Cannula Weight: 90.6 kg Body Mass Index (BMI) 33.3 Intake & Output: Intake and Output for Last 24 Hours 09/12/23 09/13/23 09/14/23 23:59 23:59 23:59 Intake Total 763 / 763 410 / 410 610 / 610 Output Total 450 / 450 850 / 850 200 / 200 Balance 313 / 313 -440 / -440 410 / 410 Lab / Micro Data 09/14/23 03:25 09/14/23 03:25 Labs: Laboratory Results - last 24 hr 09/14/23 03:25: WBC 10.5, RBC 3.47 L, Hgb 8.6 L, Hct 31.0 L, MCV 89.3, MCH 24.8 L, MCHC 27.7 L, RDW Std Deviation 60.6 H, RDW Coeff of Laura 18.6 H, Plt Count 271, MPV 12.8 H, PT 17.5 H, INR 1.4, Sodium 146 H, Potassium 3.7, Chloride 109 H , Carbon Dioxide 35.0 H, Anion Gap 2 L, BUN 43 H, Creatinine 0.76, Estim Creat Clear Calc 61.66, Est GFR (MDRD) Af Amer 94, Est GFR (MDRD) Non-Af 78, BUN/Creatinine Ratio 56.4 H, Glucose 139 H, Calcium 8.8 Micro: Microbiology 09/12/23 00:20 Mucosa - Nose SARS-CoV-2, Influenza & RSV (PCR) - Final Rhythm Strip Rhythm Strip: Paced Rate: 60 Ectopy: None Physical Exam Const alert, oriented x3, no apparent distress and well nourished; Negative for average body habitus or healthy appearing Constitutional Narrative: Obese, older, white female, sitting up in a chair at the bedside eating breakfas t, patient appears comfortable and nontoxic HEENT normocephalic, head/scalp atraumatic, hearing grossly normal bilaterally and moist oral mucous membranes HEENT Narrative: Mallampati is 3, no thrush, edentulous Resp normal respiratory effort, no retractions, no use of accessory muscles and clear to auscultation bilaterally Resp Narrative: Diffusely diminished but clear, no conversational dyspnea today Auscultation: Negative for rales, rhonchi or wheezes Cardio regular rate, regular rhythm, S1 normal heart sound, S2 normal heart sound, no murmurs, no rub, no gallops and no clicks GI normal to inspection, nondistended, normoactive bowel sounds, soft to palpation and non-tender GI Narrative: Large protuberant abdomen Extremity normal to inspection, full ROM and no clubbing, cyanosis or edema Extremity Narrative: 1+ pitting edema bilateral lower extremities Neuro oriented x3, moves all extremities and no focal motor deficits Sensorium / Orientation: awake and alert Speech: speech normal Psych affect normal Psych Narrative: Much calmer today, interacts appropriately, pleasant Assessment & Plan Assessment/Plan (1) Metabolic encephalopathy: (2) COPD with acute exacerbation: (3) Acute and chronic respiratory failure with hypercapnia: PLAN: Plan Acute on chronic hypercapnic respiratory failure with chronic hypoxic respiratory failure secondary to acute exacerbation of COPD -Chest x-ray is unremarkable -Respiratory viral panel unremarkable -COVID/flu/RSV unremarkable -Transition to oral prednisone -Continue pulmonary toilet -I-S/Acapella when off BiPAP -Patient has been weaned during the day to 2 L nasal cannula which is her baseline -Continue nocturnal BiPAP -Keep oxygen saturations between 90 and 94% -Continue broad-spectrum antibiotics until cultures have been finalized -Anticipate discharge tomorrow as long as cultures are unremarkable Supratherapeutic INR -Resolved -Hemoglobin is stable -INR is now 1.4 -Restart Coumadin at 2 mg daily until INR is therapeutic and then will transition back to her baseline dose of 2 mg alternating with 1.5 mg daily -Repeat INR in a.m. Toxic/metabolic encephalopathy secondary to hypercapnia -Resolved with improved respiratory status Chronic anemia -Hemoglobin with a slight drop -Baseline appears to be between 9.5 and 11 -Currently 8.6 and has stabilized -Will monitor with repeat CBC in a.m. -Continue to monitor INR Chronic hypoxic respiratory failure secondary to COPD/pulmonary hypertension -Continue home Lasix of 20 mg daily -Continue treatment as noted above -Currently on baseline oxygen -Continue home azithromycin which she takes 250 mg 3 times weekly -Pulmonary medicine is following-appreciate input History of ANKUSH -Continue BiPAP with naps and nocturnally Essential hypertension -Home Lasix reinitiated -Continue home acetazolamide -On no other antihypertensives History of DVT/PE -INR is now subtherapeutic -Will give Lovenox 90 mg twice daily and restart Coumadin at 2 mg daily to bridge since has history of DVT/PE -Repeat INR in a.m. 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 CODE STATUS -DNR CCA with no intubation Disposition: -As long as patient remains stable anticipate discharge back [facility] tomorrow 09/15/2023 Charges/Coding Visit Charges Inpatient E&M: 76698 Subs Hosp L2
[2023-09-14] MEDS: Enoxaparin 100 MG/ML Syringe 90 MG SC (16:33)
[2023-09-14] MEDS: Jantoven 2 MG Tablet PO (16:33)
[2023-09-14] MEDS: Gabapentin 300 MG Capsule PO (20:40)
[2023-09-15] VITALS (8 sets, daily range): BP systolic 116–132; BP diastolic 55–81; PULSE 60–66; RESP 12–22; TEMP 36.3–36.7; O2SAT 97–100; BMI 33.4
[2023-09-15 03:34] LABS: Hematocrit 35.7 % (37-47); Hemoglobin 9.6 g/dL (12.0-15.0); Mean Corp Hgb Conc 26.9 g/dL (32-36); Mean Corpuscular Hgb 24.4 pg (27.0-32.0); Mean Corpuscular Volume 90.8 fL (81-99); Mean Platelet Vol. 12.7 fl (6.2-12.0); Platelet Count 301 K/mm3 (150-450); RBC Distribution Width CV 18.8 % (11.6-14.6); RBC Distribution Width SD 62.7 fl (35.1-43.9); Red Blood Count 3.93 M/mm3 (4.2-5.4); White Blood Count 12.5 K/mm3 (4.4-11.0)
[2023-09-15 03:44] LABS: International Normalized Ratio 1.1; Prothrombin Time (Protime)PT. 14.3 SECONDS (11.7-14.9)
[2023-09-15 03:57] LABS: Anion Gap 2 (5-15); BUN 48 mg/dL (7-18); Calcium,Total 9.8 mg/dL (8.5-10.1); Chloride 108 mmol/L (98-107); EST Glomerular Filtration Rate 46 mL/min (>60); Est Glom Filt Rate - Afr Amer 56 mL/min (>60); Estimated Creatinine Clearance 41.44 ml/min; Glucose 95 mg/dL (74-106); Potassium 3.1 mmol/L (3.5-5.1); Sodium Level 145 mmol/L (136-145)
[2023-09-15] MEDS: Piperacil/Tazobactam 3.375 GM in 0.9% Normal Saline (50mL MB+) 50 ML IV (05:15)
[2023-09-15] MEDS: Enoxaparin 100 MG/ML Syringe 90 MG SC ×2 (05:15→15:52)
[2023-09-15] MEDS: Ipratropium/Albuterol Sulfate 3 ML AMPUL.NEB INHALATION ×3 (07:19→15:53)
--- NOTE | 2023-09-15 07:24 | PCM.PN.INT ---
Assessment & Plan Assessment/Plan (1) Acute and chronic respiratory failure with hypercapnia: (2) COPD with acute exacerbation: (3) CO2 narcosis: PLAN: Plan RECOMMENDATIONS: 1. Continue prednisone and wean over 12 to 14 days 2. Continue Coumadin therapy with daily INRs until therapeutic 3. Discontinue antibiotics 4. Continue BiPAP with all sleep 5. Keep oxygen saturations between 90 and 94% 6. Hold diuretics for 24 to 48 hours given elevated creatinine 7. Okay to discharge from a pulmonary perspective with routine follow-up IMPRESSIONS: 1. Metabolic encephalopathy secondary to acute on chronic hypercarbic respiratory failure secondary to COPD exacerbation Unclear etiology at this time. Viral screen was negative. Patient does not have any significant change in infiltrates on chest x-ray. Patient will continue on BiPAP for now. Will attempt BiPAP breaks during the day today. Patient does have permissive hypercapnia, but noted to be a DNR/DNI. Patient appears to be doing well at this time. Exact etiology is still unclear, but patient has responded to steroids well. Will continue prednisone therapy and this can be weaned over the next 12 to 14 days. Okay to discontinue antibiotics from my perspective 2. Supratherapeutic INR INR normalized after vitamin K. Given this is for A-fib, Coumadin can likely be reinitiated in a stepwise fashion. Hemoglobin has remained stable and cessation of antibiotics should help with prolongation of PT 3. Obesity/hypertension/hyperlipidemia/history of PE/SSS/GERD/osteoarthritis/advanced age Complicates care, management, recovery and prognosis. Antihypertensives have been held as patient is currently n.p.o. given mental status. May be started on as needed antihypertensives if necessary. Patient is on PPI. Clinical suspicion for marginal increase in troponin secondary to hypoxia and cardiac strain given problem #1. Patient does have a history of being DNR/DNI. Diuretics will be held for 24 to 48 hours given elevated creatinine Subjective Subjective Patient did okay overnight. No acute issues were reported. Patient feels back to baseline at this time. Patient was able to stay off of BiPAP throughout the day yesterday, only using it for naps. Mentation has remained at baseline. Objective Data Objective Data Vital Signs: Vital Signs Temp Pulse Resp BP Pulse Ox O2 Del Method O2 Flow Rate 36.7 C 60 16 132/81 H 97 Nasal Cannula 2 09/15/23 03:25 09/15/23 04:20 09/15/23 04:20 09/15/23 03:25 09/15/23 04:20 09/15/23 03:37 09/15/23 03:37 FiO2 25 09/15/23 04:20 Oxygen Flow Rate (L/min) 2 Oxygen Delivery Method Nasal Cannula Weight: 91.1 kg Body Mass Index (BMI) 33.4 Intake & Output: Intake and Output for Last 24 Hours 09/13/23 09/14/23 09/15/23 23:59 23:59 23:59 Intake Total 410 / 410 1060 / 1060 50 / 50 Output Total 850 / 850 450 / 450 0 / 0 Balance -440 / -440 610 / 610 50 / 50 Lab / Micro Data Attestation: I reviewed the patient's lab results. 09/15/23 03:30 09/15/23 03:30 Labs: Laboratory Results - last 24 hr 09/14/23 03:25: PT 17.5 H, INR 1.4 09/15/23 03:30: WBC 12.5 H, RBC 3.93 L, Hgb 9.6 L, Hct 35.7 L, MCV 90.8, MCH 24.4 L, MCHC 26.9 L, RDW Std Deviation 62.7 H, RDW Coeff of Laura 18.8 H, Plt Count 301, MPV 12.7 H, PT 14.3, INR 1.1, Sodium 145, Potassium 3.1 L, Chloride 108 H, Carbon Dioxide 35.0 H, Anion Gap 2 L, BUN 48 H, Creatinine 1.20 H, Estim Creat Clear Calc 41.44, Est GFR (MDRD) Af Amer 56 L, Est GFR (MDRD) Non-Af 46 L, BUN/Creatinine Ratio 40.0 H, Glucose 95, Calcium 9.8 Micro: Microbiology 09/12/23 00:20 Mucosa - Nose SARS-CoV-2, Influenza & RSV (PCR) - Final Rhythm Strip Rhythm Strip: Paced Rate: 60 Ectopy: None Physical Exam Const Constitutional Narrative: Patient seen while on BiPAP therapy. No significant leak noted. Mentation back to normal. HEENT normocephalic, head/scalp atraumatic, hearing grossly normal bilaterally and moist oral mucous membranes Eyes PERRL and EOMs intact bilaterally Neck no lymphadenopathy and supple Resp Resp Narrative: Symmetric expansion noted Auscultation: diminished lung sounds; Negative for rales, rhonchi or wheezes Cardio regular rate, regular rhythm, S1 normal heart sound, S2 normal heart sound, no murmurs, no rub and no gallops Cardio Narrative: Paced rhythm on telemetry GI normal to inspection, nondistended, normoactive bowel sounds, soft to palpation, non-tender and non-distended Extremity no clubbing, cyanosis or edema Skin Skin Narrative: Some scattered ecchymotic areas noted. None with significant induration Neuro moves all extremities and no focal motor deficits Psych cooperative and affect normal Mood & Affect: flat affect Charges/Coding Visit Charges Inpatient E&M: 35517 Subs Hosp L2
[2023-09-15] MEDS: Potassium Chloride Oral Tablet 20 MEQ 40 MEQ PO (08:00)
[2023-09-15] MEDS: predniSONE 20 MG Tablet 40 MG PO (08:01)
[2023-09-15] MEDS: Losartan Potassium 100 MG Tablet PO (08:01)
[2023-09-15] MEDS: Pantoprazole Sodium 40 MG Tablet PO (08:02)
[2023-09-15] MEDS: Cholecalciferol (VIT D3) 25 MCG TABLET (1,000 UNITS) 50 MCG PO (08:02)
[2023-09-15] MEDS: Citalopram 20 MG Tablet PO (08:02)
[2023-09-15] MEDS: LORazepam 0.5 MG Tablet PO (09:43)
[2023-09-15] MEDS: Multivitamin (Healthy Eyes) Capsule 1 CAP PO (09:44)
[2023-09-15] MEDS: Cyanocobalamin 500 MCG Tablet PO (09:44)
[2023-09-15] MEDS: Polyethylene Glycol 3350 17 GM PACKET PO (09:44)
[2023-09-15] MEDS: Docusate Sodium 100 MG Capsule PO (09:44)
--- NOTE | 2023-09-15 12:39 | TREXTCAR_ITS ---
Diet Diet Order/Speech Therapy: 09/13/23 09:41 Diet: Cardiac - Heart Healthy Food consistency:: Regular Liquid Consistency:: Regular/Thin Dietary Modifications:: Sodium Restricted Is pt able to select menu?: Yes Routine Orders/Code Status O2 Liters per Minute: 2-4 O2 Frequency: Continuous Routine Lab Work: CBC (3 days) and BMP (3 days) Code Status: DNRCC-A (NO ETT) Therapies Weight Bearing: Full weight bearing Problem/Diagnosis (1) Acute and chronic respiratory failure with hypercapnia: Status: Chronic Code(s): J96.22 - Acute and chronic respiratory failure with hypercapnia (2) COPD with acute exacerbation: Status: Chronic Code(s): J44.1 - Chronic obstructive pulmonary disease with (acute) exacerbation (3) CO2 narcosis: Status: Acute Code(s): R06.89 - Other abnormalities of breathing Allergies/Procedures Done in Hospital Allergies amlodipine besylate [From [facility]] Adverse Reaction (Verified 09/11/23 23:18) ANKLE AND LEG EDEMA RESOLVED OFF MED-PER PCP PAPERWORK codeine Adverse Reaction (Verified 09/11/23 23:18) MENTAL STATUS CHANGE lisinopril Adverse Reaction (Verified 09/11/23 23:18) COUGH Procedures: None, EKG and - (Chest x-ray) Type of Care/Length of Stay Estimated LOS: More Than 30 Days Type of Care Needed: Intermediate Rehab Potential: Fair Prognosis: Fair Additional Orders/Day of Discharge Additional Orders: Hold Lasix and acetazolamide until BMP is obtained in 3 days and if renal function is normal restart Day of Discharge: 09/15/23 Dietary and Speech Recommendations Dietitian Recommendations/Changes: Will order cardiac/sodium-restricted diet. Monitor need to restrict carbohydrates. ONS not indicated at this time, will offer if PO fails at meals. Discharge Plan Admission Admit Date/Time: 09/12/23 02:24 Attending Provider: Prema Avila Primary Care Provider: Tor Lucia Consulting Providers: Freddy Mooney; Ketan Brown; Jesus Shah; Mani Mcnair; Jin Cates; Jj Nicolas; Jayne Pradhan; Madhav Astorga; Lorene Armstrong; Juan Jose Almazan; Walter Gilmore; Roberto Vega; Carlito Braun; José Hernandez Discharge Orders/Prescriptions Prescriptions: No Action furosemide 20 mg tablet 20 mg PO DAILY potassium chloride 20 mEq tablet extended release 20 meq PO DAILY budesonide 1 mg/2 mL suspension for nebulization 1 mg inhalation BID Qty: 60 6RF Glucagon Emergency Kit (human) 1 mg recon soln 1 mg subcut Q20M PRN (Reason: hypoglycem) Rx Instructions: until target blood sugar attained dextrose 40 % gel 15 g PO Q15M PRN (Reason: hypoglycemia) Rx Instructions: until symptoms of low blood sugar are controlled azithromycin 250 mg tablet 250 mg PO QMWF Qty: 36 0RF Rx Instructions: Mon, and monday prednisone 10 mg tablet 10 mg PO DAILY Qty: 90 3RF omeprazole 20 MG tablet,delayed release (DR/EC) 20 mg PO DAILY acetazolamide 250 MG tablet 250 mg PO BID Lactobacillus acidophilus 1 EACH capsule 1 cap PO DAILY albuterol sulfate 2.5 MG/3 ML solution for nebulization 2.5 mg INHALATION Q2H PRN PRN (Reason: Shortness of Breath/Wheezing) 0RF docusate sodium 100 MG capsule 100 mg PO BID 0RF ondansetron HCl 4 mg Tablet 4 mg PO Q4H PRN (Reason: Nausea) PreserVision AREDS-2 250-90-40-1 mg Capsule 1 tab PO BID acetaminophen 500 mg Capsule 1,000 mg PO Q8H PRN (Reason: Pain) albuterol sulfate [Ventolin HFA] 90 mcg/actuation HFA aerosol inhaler 2 puff inhalation Q4H PRN PRN (Reason: Wheezing) Qty: 1 0RF warfarin 4 mg tablet 4 mg PO MOWEFR polyethylene glycol 3350 [Miralax] 17 gram Powder In Packet 17 g PO DAILY ipratropium-albuterol 0.5 mg-3 mg(2.5 mg base)/3 mL Solution For Nebulization 3 ml INHALATION Q4H PRN (Reason: Wheezing) ipratropium-albuterol 0.5 mg-3 mg(2.5 mg base)/3 mL Solution For Nebulization 3 ml INHALATION TID dextromethorphan HBr 10 mg/5 mL Liquid 10 mg PO Q6H PRN (Reason: Cough) calcium carbonate 600 mg calcium (1,500 mg) Tablet 600 mg PO DAILY citalopram 20 mg tablet 20 mg PO DAILY cyanocobalamin (vitamin B-12) 500 mcg Tablet 500 mcg PO DAILY Hemorrhoidal Ointment 1 applic RI Q6H PRN (Reason: hemorrhoids) cholecalciferol (vitamin D3) [Vitamin D3] 50 mcg (2,000 unit) Tablet 50 mcg PO DAILY warfarin 3 mg tablet 3 mg PO SUTUTH gabapentin 300 mg capsule 300 mg PO QHS prednisone 20 mg tablet 40 mg PO DAILY 7 Days Qty: 14 0RF Rx Instructions: Start prednisone tomorrow 09/12/2023 she was given a dose already today in the emergency department of steroids. lorazepam 0.5 mg tablet 0.5 mg PO Q12H Referrals / Follow Up: Mani Mcnair MD [Med Staff - Active Staff] - 10/16/23 10:45 am Tor Lucia MD [Primary Care Provider] -
--- NOTE | 2023-09-15 12:43 | DS.PCM_ITS ---
Providers Date of Admission: 09/12/23 Primary Care Physician: Dr. Tor Lucia MD Consultations 09/12/23 03:43 Consult: Digital Marketing Executive / Pulmonary Medicine Routine Consulting Provider: Intensivists/Pulmonary Med Reason for Consult: Respiratory Failure EMERGENT Consult: No MD Notified: Yes Date Notified: 09/12/23 Time Notified: 03:43 Method of Notification: Text Reason For Visit: ACUTE EXACERBATION OF COPD WITH ACUTE HYPOXIC RESP Diagnosis Discharge Diagnosis (1) Acute and chronic respiratory failure with hypercapnia: Status: Chronic Code(s): J96.22 - Acute and chronic respiratory failure with hypercapnia (2) COPD with acute exacerbation: Status: Chronic Code(s): J44.1 - Chronic obstructive pulmonary disease with (acute) exacerbation (3) CO2 narcosis: Status: Acute Code(s): R06.89 - Other abnormalities of breathing Plan Acute on chronic hypercapnic respiratory failure with chronic hypoxic respirat ory failure secondary to acute exacerbation of COPD -Chest x-ray is unremarkable -Respiratory viral panel unremarkable -COVID/flu/RSV unremarkable -Transition to oral prednisone -Continue pulmonary toilet -I-S/Acapella when off BiPAP -Patient has been weaned during the day to 2 L nasal cannula which is her baseline -Continue nocturnal BiPAP -Keep oxygen saturations between 90 and 94% -Continue broad-spectrum antibiotics until cultures have been finalized -Anticipate discharge tomorrow as long as cultures are unremarkable Supratherapeutic INR -Resolved -Hemoglobin is stable -INR is now 1.4 -Restart Coumadin at 2 mg daily until INR is therapeutic and then will transition back to her baseline dose of 2 mg alternating with 1.5 mg daily -Repeat INR in a.m. Toxic/metabolic encephalopathy secondary to hypercapnia -Resolved with improved respiratory status Chronic anemia -Hemoglobin with a slight drop -Baseline appears to be between 9.5 and 11 -Currently 8.6 and has stabilized -Will monitor with repeat CBC in a.m. -Continue to monitor INR Chronic hypoxic respiratory failure secondary to COPD/pulmonary hypertension -Continue home Lasix of 20 mg daily -Continue treatment as noted above -Currently on baseline oxygen -Continue home azithromycin which she takes 250 mg 3 times weekly -Pulmonary medicine is following-appreciate input History of ANKUSH -Continue BiPAP with naps and nocturnally Essential hypertension -Home Lasix reinitiated -Continue home acetazolamide -On no other antihypertensives History of DVT/PE -INR is now subtherapeutic -Will give Lovenox 90 mg twice daily and restart Coumadin at 2 mg daily to bridge since has history of DVT/PE -Repeat INR in a.m. 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 CODE STATUS -DNR CCA with no intubation Disposition: -As long as patient remains stable anticipate [facility] tomorrow 09/15/2023 Medications at Discharge Home Medications omeprazole 20 mg tablet,delayed release 20 mg PO DAILY GERD 01/17/19 Lactobacillus acidophilus 1 cap PO DAILY [facility] 08/20/20 acetazolamide 250 mg tablet 250 mg PO BID EDEMA 08/20/20 albuterol sulfate 2.5 mg/3 mL (0.083 %) solution for nebulization 2.5 mg (3 mL) inhalation Q2H PRN PRN Shortness of Breath/Wheezing 09/05/20 docusate sodium 100 mg capsule 100 mg PO BID 09/05/20 ondansetron HCl 4 mg tablet 4 mg PO Q4H PRN Nausea 07/14/21 vit C 250 mg-vit E 90 mg-zinc 40 mg-copper 1 [id number] capsule (PreserVision AREDS-2) 1 tab PO BID 07/14/21 furosemide 20 mg tablet 20 mg PO DAILY 01/14/22 potassium chloride 20 mEq tablet,extended release 20 meq PO DAILY 01/14/22 acetaminophen 500 mg capsule 1,000 mg PO Q8H PRN Pain 04/14/22 albuterol sulfate 90 mcg/actuation aerosol inhaler (Ventolin HFA) 2 puff inhalation Q4H PRN PRN Wheezing ##1 04/14/22 polyethylene glycol 3350 17 gram oral powder packet (Miralax) 17 g PO DAILY 08/11/22 ipratropium 0.5 mg-albuterol 3 mg (2.5 mg base)/3 mL nebulization soln 3 ml inhalation Q4H PRN Wheezing 08/20/22 budesonide 1 mg/2 mL suspension for nebulization 1 mg (2 mL) inhalation BID #60 mL 10/21/22 calcium carbonate 600 mg calcium (1,500 mg) tablet 600 mg PO DAILY 12/31/22 cholecalciferol (vitamin D3) 50 mcg (2,000 unit) tablet (Vitamin D3) 50 mcg PO DAILY 12/31/22 citalopram 20 mg tablet 20 mg PO DAILY 12/31/22 cyanocobalamin (vitamin B-12) 500 mcg tablet 500 mcg PO DAILY 12/31/22 dextromethorphan HBr 10 mg/5 mL oral liquid 10 mg PO Q6H PRN Cough 12/31/22 ipratropium 0.5 mg-albuterol 3 mg (2.5 mg base)/3 mL nebulization soln 3 ml inhalation TID 12/31/22 phenylephrine-shark liver oil-mineral oil-petrolatum rectal ointment (Hemorrhoidal ointment) 1 applic DC Q6H PRN hemorrhoids 12/31/22 dextrose 40 % oral gel 15 g PO Q15M PRN hypoglycemia 02/08/23 glucagon 1 mg solution for injection (Glucagon Emergency Kit) 1 mg subcut Q20M PRN hypoglycem 02/08/23 gabapentin 300 mg capsule 300 mg PO QHS 03/20/23 warfarin 3 mg tablet 3 mg PO SUTUTH 03/20/23 azithromycin 250 mg tablet 250 mg PO QMWF #36 tabs 04/19/23 prednisone 10 mg tablet 10 mg PO DAILY #90 tabs 04/19/23 warfarin 4 mg tablet 4 mg PO MOWEFR 06/28/23 lorazepam 0.5 mg tablet 0.5 mg PO Q12H ANXIETY 09/11/23 enoxaparin 100 mg/mL subcutaneous syringe 90 mg (0.9 mL) subcut Q12@0600,1800 #0 mL 09/15/23 prednisone 20 mg tablet 40 mg (2 x 20 mg) PO BREAKFAST #0 tabs 09/15/23 Weight / BMI Weight Weight: 91.1 kg Body Mass Index (BMI) 33.4 ABG / Lab / Microbiology Data 09/15/23 03:30 09/15/23 03:30 Laboratory: Laboratory Results - last 24 hr 09/15/23 03:30: WBC 12.5 H, RBC 3.93 L, Hgb 9.6 L, Hct 35.7 L, MCV 90.8, MCH 24.4 L, MCHC 26.9 L, RDW Std Deviation 62.7 H, RDW Coeff of Laura 18.8 H, Plt Count 301, MPV 12.7 H, PT 14.3, INR 1.1, Sodium 145, Potassium 3.1 L, Chloride 108 H, Carbon Dioxide 35.0 H, Anion Gap 2 L, BUN 48 H, Creatinine 1.20 H, Estim Creat Clear Calc 41.44, Est GFR (MDRD) Af Amer 56 L, Est GFR (MDRD) Non-Af 46 L, BUN/Creatinine Ratio 40.0 H, Glucose 95, Calcium 9.8 Microbiology: Microbiology 09/12/23 00:20 Mucosa - Nose SARS-CoV-2, Influenza & RSV (PCR) - Final Discharge Plan Admission Admit Date/Time: 09/12/23 02:24 Primary Reason for Your Visit: Altered mental status Attending Provider: Prema Avila Primary Care Provider: Tor Lucia Consulting Providers: Freddy Mooney; Ketan Brown; Jesus Shah; Mani Mcnair; Jin Cates; Jj Nicolas; Jayne Pradhan; Madhav Astorga; Lorene Armstrong; Juan Jose Almazan; Walter Gilmore; Roberto Vega; Carlito Braun; José Hernandez Instructions Additional Instructions / Restrictions: 1. Patient will need a CBC, BMP, and INR done on Monday 2. Once INR is therapeutic on Coumadin discontinue Lovenox 3. Please follow-up with pulmonary medicine as noted below Discharge Orders/Prescriptions Prescriptions: New prednisone 20 mg Tablet 40 mg PO BREAKFAST Qty: 0 0RF Rx Instructions: 40 mg x 3 days, 30 mg x 5 days, 20 mg x 5 days, 10 mg to restart chronically enoxaparin 100 mg/mL Syringe 90 mg subcut Q12@0600,1800 Qty: 0 0RF Rx Instructions: Continue until INR is therapeutic on Coumadin Continued potassium chloride 20 mEq tablet extended release 20 meq PO DAILY budesonide 1 mg/2 mL suspension for nebulization 1 mg inhalation BID Qty: 60 6RF Glucagon Emergency Kit (human) 1 mg recon soln 1 mg subcut Q20M PRN (Reason: hypoglycem) Rx Instructions: until target blood sugar attained dextrose 40 % gel 15 g PO Q15M PRN (Reason: hypoglycemia) Rx Instructions: until symptoms of low blood sugar are controlled azithromycin 250 mg tablet 250 mg PO QMWF Qty: 36 0RF Rx Instructions: Mon, and monday omeprazole 20 MG tablet,delayed release (DR/EC) 20 mg PO DAILY Lactobacillus acidophilus 1 EACH capsule 1 cap PO DAILY albuterol sulfate 2.5 MG/3 ML solution for nebulization 2.5 mg INHALATION Q2H PRN PRN (Reason: Shortness of Breath/Wheezing) 0RF docusate sodium 100 MG capsule 100 mg PO BID 0RF ondansetron HCl 4 mg Tablet 4 mg PO Q4H PRN (Reason: Nausea) PreserVision AREDS-2 250-90-40-1 mg Capsule 1 tab PO BID acetaminophen 500 mg Capsule 1,000 mg PO Q8H PRN (Reason: Pain) albuterol sulfate [Ventolin HFA] 90 mcg/actuation HFA aerosol inhaler 2 puff inhalation Q4H PRN PRN (Reason: Wheezing) Qty: 1 0RF warfarin 4 mg tablet 4 mg PO MOWEFR polyethylene glycol 3350 [Miralax] 17 gram Powder In Packet 17 g PO DAILY ipratropium-albuterol 0.5 mg-3 mg(2.5 mg base)/3 mL Solution For Nebulization 3 ml INHALATION Q4H PRN (Reason: Wheezing) ipratropium-albuterol 0.5 mg-3 mg(2.5 mg base)/3 mL Solution For Nebulization 3 ml INHALATION TID dextromethorphan HBr 10 mg/5 mL Liquid 10 mg PO Q6H PRN (Reason: Cough) calcium carbonate 600 mg calcium (1,500 mg) Tablet 600 mg PO DAILY citalopram 20 mg tablet 20 mg PO DAILY cyanocobalamin (vitamin B-12) 500 mcg Tablet 500 mcg PO DAILY Hemorrhoidal Ointment 1 applic DC Q6H PRN (Reason: hemorrhoids) cholecalciferol (vitamin D3) [Vitamin D3] 50 mcg (2,000 unit) Tablet 50 mcg PO DAILY warfarin 3 mg tablet 3 mg PO SUTUTH gabapentin 300 mg capsule 300 mg PO QHS lorazepam 0.5 mg tablet 0.5 mg PO Q12H Held furosemide 20 mg tablet 20 mg PO DAILY Hold Instructions: Restart on Monday if renal function is normal on BMP prednisone 10 mg tablet 10 mg PO DAILY Qty: 90 3RF Hold Instructions: Hold until prednisone taper is completed and then reinitiate acetazolamide 250 MG tablet 250 mg PO BID Hold Instructions: Hold until BMP is done on Monday and reinitiate if renal function is stable Discontinued prednisone 20 mg tablet 40 mg PO DAILY 7 Days Qty: 14 0RF Rx Instructions: Start prednisone tomorrow 09/12/2023 she was given a dose already today in the emergency department of steroids. Referrals / Follow Up: Mani Mcnair MD [Med Staff - Active Staff] - 10/16/23 10:45 am Tor Lucia MD [Primary Care Provider] - Within 2 Weeks Disposition Disposition (needs filled in before D/C Order can be placed): NonSkilled NH/Intermed Care Charges/Coding Visit Charges Inpatient E&M: 34561 SNF Disch >30 Min
--- NOTE | 2023-09-15 12:43 | PCM.DC.SUM ---
Providers Date of Admission: 09/12/23 Date of Discharge: 09/15/23 Primary Care Physician: Dr. Tor Lcuia MD Consultations 09/12/23 03:43 Consult: Advanced Practice Registered Nurse / Pulmonary Medicine Routine Consulting Provider: Intensivists/Pulmonary Med Reason for Consult: Respiratory Failure EMERGENT Consult: No MD Notified: Yes Date Notified: 09/12/23 Time Notified: 03:43 Method of Notification: Text Reason For Visit: ACUTE EXACERBATION OF COPD WITH ACUTE HYPOXIC RESP Diagnosis Discharge Diagnosis (1) Acute and chronic respiratory failure with hypercapnia: Status: Chronic Code(s): J96.22 - Acute and chronic respiratory failure with hypercapnia (2) COPD with acute exacerbation: Status: Chronic Code(s): J44.1 - Chronic obstructive pulmonary disease with (acute) exacerbation (3) CO2 narcosis: Status: Acute Code(s): R06.89 - Other abnormalities of breathing Medications at Discharge Home Medications omeprazole 20 mg tablet,delayed release 20 mg PO DAILY GERD 01/17/19 Lactobacillus acidophilus 1 cap PO DAILY [facility] 08/20/20 acetazolamide 250 mg tablet 250 mg PO BID EDEMA 08/20/20 albuterol sulfate 2.5 mg/3 mL (0.083 %) solution for nebulization 2.5 mg (3 mL) inhalation Q2H PRN PRN Shortness of Breath/Wheezing 09/05/20 docusate sodium 100 mg capsule 100 mg PO BID 09/05/20 ondansetron HCl 4 mg tablet 4 mg PO Q4H PRN Nausea 07/14/21 vit C 250 mg-vit E 90 mg-zinc 40 mg-copper 1 [id number] capsule (PreserVision AREDS-2) 1 tab PO BID 07/14/21 furosemide 20 mg tablet 20 mg PO DAILY 01/14/22 potassium chloride 20 mEq tablet,extended release 20 meq PO DAILY 01/14/22 acetaminophen 500 mg capsule 1,000 mg PO Q8H PRN Pain 04/14/22 albuterol sulfate 90 mcg/actuation aerosol inhaler (Ventolin HFA) 2 puff inhalation Q4H PRN PRN Wheezing ##1 04/14/22 polyethylene glycol 3350 17 gram oral powder packet (Miralax) 17 g PO DAILY 08/11/22 ipratropium 0.5 mg-albuterol 3 mg (2.5 mg base)/3 mL nebulization soln 3 ml inhalation Q4H PRN Wheezing 08/20/22 budesonide 1 mg/2 mL suspension for nebulization 1 mg (2 mL) inhalation BID #60 mL 10/21/22 calcium carbonate 600 mg calcium (1,500 mg) tablet 600 mg PO DAILY 12/31/22 cholecalciferol (vitamin D3) 50 mcg (2,000 unit) tablet (Vitamin D3) 50 mcg PO DAILY 12/31/22 citalopram 20 mg tablet 20 mg PO DAILY 12/31/22 cyanocobalamin (vitamin B-12) 500 mcg tablet 500 mcg PO DAILY 12/31/22 dextromethorphan HBr 10 mg/5 mL oral liquid 10 mg PO Q6H PRN Cough 12/31/22 ipratropium 0.5 mg-albuterol 3 mg (2.5 mg base)/3 mL nebulization soln 3 ml inhalation TID 12/31/22 phenylephrine-shark liver oil-mineral oil-petrolatum rectal ointment (Hemorrhoidal ointment) 1 applic OH Q6H PRN hemorrhoids 12/31/22 dextrose 40 % oral gel 15 g PO Q15M PRN hypoglycemia 02/08/23 glucagon 1 mg solution for injection (Glucagon Emergency Kit) 1 mg subcut Q20M PRN hypoglycem 02/08/23 gabapentin 300 mg capsule 300 mg PO QHS 03/20/23 warfarin 3 mg tablet 3 mg PO SUTUTH 03/20/23 azithromycin 250 mg tablet 250 mg PO QMWF #36 tabs 04/19/23 prednisone 10 mg tablet 10 mg PO DAILY #90 tabs 04/19/23 warfarin 4 mg tablet 4 mg PO MOWEFR 06/28/23 lorazepam 0.5 mg tablet 0.5 mg PO Q12H ANXIETY 09/11/23 enoxaparin 100 mg/mL subcutaneous syringe 90 mg (0.9 mL) subcut Q12@0600,1800 #0 mL 09/15/23 prednisone 20 mg tablet 40 mg (2 x 20 mg) PO BREAKFAST #0 tabs 09/15/23 Hospital Course Summary of Care Provided Hospital Course: Mrs. Quinn is a 77-year-old female with a history of COPD who requires chronic oxygen supplementation at 2 to 3 L at baseline and ANKUSH (compliant on BiPAP at the [facility]) who presented to emergency department with her daughter for increased somnolence on 09/11/2023. She had been seen in the ER earlier that day for shortness of breath and was diagnosed with acute exacerbation of COPD and discharged back to the [facility]. The patient did not have any increased oxygen demands on presentation but just was more sleepy and hard to arouse. Oxygen saturations at the [facility] were 85% on 5 L bled into her CPAP and patient's p.o. intake had been poor on the day of presentation. She was transferred via EMS and placed immediately on noninvasive ventilation. Daughter reports at baseline she is alert and oriented x 3 and interacts appropriately. She was noted to be DNR without intubation on presentation. Other than her hypoxia she was afebrile and found to have a respiratory rate of 23 with a blood pressure 161/66 and a heart rate of 60. Laboratory data demonstrated elevated white count 11, hemoglobin of 9.9 which is consistent with her baseline and her chemistry showed an elevated serum bicarb of 33, chloride of 110 and a serum creatinine of 0.8. Her glucose was 168. Troponin was normal and lactate was normal. Initial ABG in the emergency department just after BiPAP placement was pH of 7.18/pCO2 of 94.3/pO2 of 82 with a sat of 91%. It does appear she has chronic hypercapnia with a baseline pCO2 of likely between [address] of the brain was unremarkable. Chest x-ray showed bibasilar scarring with no acute infiltrates. CT of the ankle was unremarkable. No CTA was performed as patient is fully anticoagulated with Coumadin. She was admitted to the ICU on BiPAP and treated with steroids, IV antibiotics, aggressive pulmonary toilet with scheduled and as needed nebulizers, I-S and Acapella. Pulmonary medicine was consulted and followed the patient throughout her hospital stay. We have also arranged outpatient follow-up to see pulmonary medicine within the next month after discharge as noted on her discharge paperwork. Her cultures were unremarkable so antibiotics were discontinued. She clinically improved with regards to her hypercapnia and we were gradually able to wean her off BiPAP. She will need to continue her baseline oxygen of 2 to 4 L while she is at the facility and nocturnal BiPAP along with BiPAP with naps. She did experience a drop in her hemoglobin and vitamin K was given as there was concern that she may have some occult bleeding however her hemoglobin stabilized and was close to her baseline at 9.6 on the day of discharge. Unfortunately, with the vitamin K her INR dropped and was 1.1 on the day of discharge. The day previous it was 1.4 and she was started on Lovenox to bridge her back onto her Coumadin due to her history of DVT PE. She should maintain Lovenox until her INR is therapeutic. I would recommend a CBC, BMP, and INR be obtained on Monday. She was able to be discharged back to the [facility] on 09/15/2023 in stable condition and back to her baseline. Discharge diagnoses: Acute on chronic hypercapnic respiratory failure with chronic hypoxic respiratory failure Acute exacerbation of COPD-resolved Supratherapeutic INR-resolved Subtherapeutic INR-treatment in progress Toxic/metabolic encephalopathy secondary to hypercapnia-resolved Acute on chronic anemia COPD Pulmonary hypertension History of ANKUSH Essential hypertension History of DVT/PE History of atrial fibrillation Sick sinus syndrome Chronic pain Neuropathy Osteoarthritis GERD Anxiety Depression Obesity Physical Exam Const alert, oriented x3, no apparent distress and well nourished; Negative for average body habitus or healthy appearing Constitutional Narrative: Obese, older, white female, sitting up bed, patient appears comfortable and nontoxic, seems pleased to hear that she was good enough to go back to the [facility] today General Appearance: cooperative, comfortable, well kempt and well developed Orientation / Consciousness: awake, oriented to person, oriented to place and oriented to time Exam Limitations: no limitations Nutritional Appearance: obese HEENT normocephalic, head/scalp atraumatic, hearing grossly normal bilaterally and moist oral mucous membranes HEENT Narrative: Mallampati 3, no thrush, dentures in place Eyes PERRL and EOMs intact bilaterally Eyes Narrative: No scleral icterus, mild conjunctival pallor Neck no lymphadenopathy and supple Neck Narrative: Neck is short and thick, trachea is midline, no thyroid enlargement Resp normal respiratory effort, no retractions, no use of accessory muscles and clear to auscultation bilaterally Resp Narrative: Diffusely diminished but clear, no conversational dyspnea today Auscultation: Negative for rales, rhonchi or wheezes Cardio regular rate, regular rhythm, S1 normal heart sound, S2 normal heart sound, no murmurs, no rub, no gallops and no clicks GI normal to inspection, nondistended, normoactive bowel sounds, soft to palpation and non-tender GI Narrative: Large protuberant abdomen Extremity no clubbing, cyanosis or edema Extremity Narrative: Trace pitting edema bilateral lower extremities, legs are sensitive to touch-patient states this is chronic Skin no wounds, skin turgor normal and no jaundice Skin Narrative: Skin is pale Neuro oriented x3, moves all extremities and no focal motor deficits Neuro Narrative: Generalized weakness Sensorium / Orientation: awake and alert Speech: speech normal Psych affect normal Psych Narrative: Much calmer today, interacts appropriately, pleasant Weight / BMI Weight Weight: 91.1 kg Body Mass Index (BMI) 33.4 ABG / Lab / Microbiology Data 09/15/23 03:30 09/15/23 03:30 Laboratory: Laboratory Results - last 24 hr 09/15/23 03:30: WBC 12.5 H, RBC 3.93 L, Hgb 9.6 L, Hct 35.7 L, MCV 90.8, MCH 24.4 L, MCHC 26.9 L, RDW Std Deviation 62.7 H, RDW Coeff of Laura 18.8 H, Plt Count 301, MPV 12.7 H, PT 14.3, INR 1.1, Sodium 145, Potassium 3.1 L, Chloride 108 H, Carbon Dioxide 35.0 H, Anion Gap 2 L, BUN 48 H, Creatinine 1.20 H, Estim Creat Clear Calc 41.44, Est GFR (MDRD) Af Amer 56 L, Est GFR (MDRD) Non-Af 46 L, BUN/Creatinine Ratio 40.0 H, Glucose 95, Calcium 9.8 Microbiology: Microbiology 09/12/23 00:20 Mucosa - Nose SARS-CoV-2, Influenza & RSV (PCR) - Final Meaningful Use Info Meaningful Use Diagnoses (Choose all that apply): None applicable Discharge Plan Admission Admit Date/Time: 09/12/23 02:24 Primary Reason for Your Visit: Altered mental status Attending Provider: Prema Avila Primary Care Provider: Tor Lucia Consulting Providers: Freddy Mooney; Ketan Brown; Jesus Shah; Mani Mcnair; Jin Cates; Jj Nicolas; Jayne Pradhan; Madhav Astorga; Lorene Armstrong; Juan Jose Almazan; Walter Gilmore; Roberto Vega; Carlito Braun; José Hernandez Instructions Additional Instructions / Restrictions: 1. Patient will need a CBC, BMP, and INR done on Monday 2. Once INR is therapeutic on Coumadin discontinue Lovenox 3. Please follow-up with pulmonary medicine as noted below Discharge Orders/Prescriptions Prescriptions: New prednisone 20 mg Tablet 40 mg PO BREAKFAST Qty: 0 0RF Rx Instructions: 40 mg x 3 days, 30 mg x 5 days, 20 mg x 5 days, 10 mg to restart chronically enoxaparin 100 mg/mL Syringe 90 mg subcut Q12@0600,1800 Qty: 0 0RF Rx Instructions: Continue until INR is therapeutic on Coumadin Continued potassium chloride 20 mEq tablet extended release 20 meq PO DAILY budesonide 1 mg/2 mL suspension for nebulization 1 mg inhalation BID Qty: 60 6RF Glucagon Emergency Kit (human) 1 mg recon soln 1 mg subcut Q20M PRN (Reason: hypoglycem) Rx Instructions: until target blood sugar attained dextrose 40 % gel 15 g PO Q15M PRN (Reason: hypoglycemia) Rx Instructions: until symptoms of low blood sugar are controlled azithromycin 250 mg tablet 250 mg PO QMWF Qty: 36 0RF Rx Instructions: Mon, and monday omeprazole 20 MG tablet,delayed release (DR/EC) 20 mg PO DAILY Lactobacillus acidophilus 1 EACH capsule 1 cap PO DAILY albuterol sulfate 2.5 MG/3 ML solution for nebulization 2.5 mg INHALATION Q2H PRN PRN (Reason: Shortness of Breath/Wheezing) 0RF docusate sodium 100 MG capsule 100 mg PO BID 0RF ondansetron HCl 4 mg Tablet 4 mg PO Q4H PRN (Reason: Nausea) PreserVision AREDS-2 250-90-40-1 mg Capsule 1 tab PO BID acetaminophen 500 mg Capsule 1,000 mg PO Q8H PRN (Reason: Pain) albuterol sulfate [Ventolin HFA] 90 mcg/actuation HFA aerosol inhaler 2 puff inhalation Q4H PRN PRN (Reason: Wheezing) Qty: 1 0RF warfarin 4 mg tablet 4 mg PO MOWEFR polyethylene glycol 3350 [Miralax] 17 gram Powder In Packet 17 g PO DAILY ipratropium-albuterol 0.5 mg-3 mg(2.5 mg base)/3 mL Solution For Nebulization 3 ml INHALATION Q4H PRN (Reason: Wheezing) ipratropium-albuterol 0.5 mg-3 mg(2.5 mg base)/3 mL Solution For Nebulization 3 ml INHALATION TID dextromethorphan HBr 10 mg/5 mL Liquid 10 mg PO Q6H PRN (Reason: Cough) calcium carbonate 600 mg calcium (1,500 mg) Tablet 600 mg PO DAILY citalopram 20 mg tablet 20 mg PO DAILY cyanocobalamin (vitamin B-12) 500 mcg Tablet 500 mcg PO DAILY Hemorrhoidal Ointment 1 applic OH Q6H PRN (Reason: hemorrhoids) cholecalciferol (vitamin D3) [Vitamin D3] 50 mcg (2,000 unit) Tablet 50 mcg PO DAILY warfarin 3 mg tablet 3 mg PO SUTUTH gabapentin 300 mg capsule 300 mg PO QHS lorazepam 0.5 mg tablet 0.5 mg PO Q12H Held furosemide 20 mg tablet 20 mg PO DAILY Hold Instructions: Restart on Monday if renal function is normal on BMP prednisone 10 mg tablet 10 mg PO DAILY Qty: 90 3RF Hold Instructions: Hold until prednisone taper is completed and then reinitiate acetazolamide 250 MG tablet 250 mg PO BID Hold Instructions: Hold until BMP is done on Monday and reinitiate if renal function is stable Discontinued prednisone 20 mg tablet 40 mg PO DAILY 7 Days Qty: 14 0RF Rx Instructions: Start prednisone tomorrow 09/12/2023 she was given a dose already today in the emergency department of steroids. Referrals / Follow Up: Mani Mcnair MD [Med Staff - Active Staff] - 10/16/23 10:45 am Tor Lucia MD [Primary Care Provider] - Within 2 Weeks Disposition Disposition (needs filled in before D/C Order can be placed): NonSkilled NH/Intermed Care Charges/Coding Visit Charges Inpatient E&M: 47949 SNF Disch >30 Min
--- NOTE | 2023-09-15 13:34 | CASEMGMT ---
Social Work SW met with pt, pt's son and pt's son in law. YAO explained that per physician, pt will be discharged back to [facility] today. Pt and family agreeable. Once transportation is arranged, VM to be left for pt dgt. DC mri assistant updated and to complete discharge. Disposition: Return to [facility]
[2023-09-15] MEDS: Jantoven 2 MG Tablet PO (15:52)
--- NOTE | 2023-09-15 16:04 | CASEMGMT ---
Discharge Planning Discharge orders, signed med list, and transport time sent to [facility] via [facility]. Physicians will transport patient by cot at 4:30p. Nursing, SW, patient, and her sister updated. Cecily Snyder, Discharge Planning Asst.
== END 2023-09-15 17:30 | disposition intermediate care facility (04) | DRG 189 ==
LOC: ED 09-12 00:38 → ICU 09-12 02:45
PROVIDERS: Internal Medicine; Internal Medicine Critical Care Medicine; Admitting Provider Internal Medicine; Emergency Provider Emergency Medicine; PCP Family Medicine; Visit Provider Internal Medicine
DX: J96.22 Acute and chronic respiratory failure with hypercapnia (principal); G93.41 Metabolic encephalopathy; G92.8 Other toxic encephalopathy; J44.1 Chronic obstructive pulmonary disease with (acute) exacerbation; I50.32 Chronic diastolic (congestive) heart failure; I27.20 Pulmonary hypertension, unspecified; I49.5 Sick sinus syndrome; E11.42 Type 2 diabetes mellitus with diabetic polyneuropathy; D64.9 Anemia, unspecified; I11.0 Hypertensive heart disease with heart failure; I48.91 Unspecified atrial fibrillation; J96.21 Acute and chronic respiratory failure with hypoxia; F32.A Depression, unspecified; E78.5 Hyperlipidemia, unspecified; K21.9 Gastro-esophageal reflux disease without esophagitis; M19.90 Unspecified osteoarthritis, unspecified site; I87.2 Venous insufficiency (chronic) (peripheral); F41.9 Anxiety disorder, unspecified; G47.33 Obstructive sleep apnea (adult) (pediatric); E66.9 Obesity, unspecified; Z66 Do not resuscitate; R79.1 Abnormal coagulation profile; Z68.33 Body mass index [BMI] 33.0-33.9, adult; Z79.51 Long term (current) use of inhaled steroids; Z79.899 Other long term (current) drug therapy; Z79.84 Long term (current) use of oral hypoglycemic drugs; Z87.891 Personal history of nicotine dependence; Z99.81 Dependence on supplemental oxygen; Z86.718 Personal history of other venous thrombosis and embolism; Z86.711 Personal history of pulmonary embolism; Z79.01 Long term (current) use of anticoagulants; Z95.0 Presence of cardiac pacemaker
CPT/HCPCS: 36600; 70450; 71045; 73610; 80048; 80053; 82803; 83605; 83735; 83880; 84100; 84439; 84443; 84484; 85025; 85027; 85610; 87040; 87631; 93005; 94002; 94003; 94640; 96374; 97162; 97166; 97530; 99284; 99285; J7030; A4216

== ENCOUNTER 2023-10-01 22:00 | Inpatient (IN) | payer MEDICARE, MEDICAID, SELFPAY ==
[2023-10-01 22:01] VITALS: BP 221/144; PULSE 65; RESP 30; TEMP 36.4; O2SAT 100; BMI 34.7
[2023-10-01 22:05] VITALS: PULSE 59; RESP 14; RESP 47; O2SAT 100
[2023-10-01 22:06] VITALS: BP 201/98; PULSE 60; RESP 32; TEMP 36.6; O2SAT 96
--- NOTE | 2023-10-01 22:11 | RAD_ITS ---
STUDY: X-RAY CHEST REASON FOR EXAM: Female, 77 years old. Respiratory failure TECHNIQUE: Single AP portable view of the chest. COMPARISON: 09/12/2023 FINDINGS: Left subclavian pacemaker which is unchanged. There is hyperinflation of the lungs consistent with chronic obstructive lung disease (COPD). There is no demonstrated pleural abnormality. There is moderate cardiac enlargement. Normal mediastinum and betty. Normal visualized pulmonary arteries. There is atherosclerotic tortuosity of the aortic arch and descending thoracic aorta. Normal visualized thoracic spine. Normal visualized ribs, clavicles, and shoulders. There is no demonstrated abnormality of the visualized soft tissue structures of the upper abdomen. RAD/Chest 1 View (Portable) IMPRESSION: Emphysema without pneumonia or atelectasis. Cardiomegaly. Electronically Signed: Dallas Martinez MD at 23:11 EDT ,
--- NOTE | 2023-10-01 22:18 | EKG12_ITS ---
Test Reason : SOB Blood Pressure : / mmHG Vent. Rate : 067 BPM Atrial Rate : 441 BPM P-R Int : 000 ms QRS Dur : 114 ms QT Int : 392 ms P-R-T Axes : 000 -63 101 degrees QTc Int : 414 ms Ventricular-paced rhythm with premature ventricular or aberrantly conducted complexes Probable Afib Abnormal ECG When compared with ECG of 11-SEP-2023 23:46, Vent. rate has increased BY 7 BPM Confirmed by Tomy Block ([id number]), editor farm journal PABLITO TRUONG ([id number]) on 10/05/2023 11:15:05 AM Referred By: JENNI Confirmed By:Tomy Block
[2023-10-01 22:20] LABS: Allen Test Positive; Base Excess 8 mmol/L (-2 to +2); Bicarbonate 34.4 mmol/L (22-26); Blood Gas Specimen Type ART; Mode Not entered; O2 Delivery Device Not entered; PO2 65 mmHG (75-100); RR 12; SITE L Radial; SO2 88 % (95-99); Time Given 22:17:42; Total Carbon Dioxide 37 mmol/L; pCO2 73.4 mmHg (35-45); pH 7.28 (7.35-7.45)
--- NOTE | 2023-10-01 22:27 | EX.ED.CRITCA ---
HPI History of Present Illness Chief Complaint: Shortness of Breath Detail of Chief Complaint: Shortness of breath per nursing staff since patient is unable to provide hi Informant: EMS Onset/Context/Timing Onset: Today (Deteriorated in route) Context: Gradual Onset (With acute exacerbation) Timing: Continuous Quality: Shortness of breath Location: Respiratory Current Severity: Severe Maximum Severity: Severe Worsened by: Unable to determine Relieved by: Unable to determine Associated Symptoms Associated Symptoms: other (Unable to determine) Narrative Narrative: Patient is a 77-year-old woman with history of chronic diastolic congestive heart failure, obstructive sleep apnea, chronic respiratory failure, long-term use of anticoagulant, history of DVT. Pacemaker for AV block, essential hypertension, dyslipidemia and COPD. Patient is not able to give a history. She is somnolent. Prior similar symptoms: No Recent Illness/Hospitalization: No PFSH PFSH Medical History Abscess of left leg Anemia Arthritis Atrial fibrillation AV block, complete BiPAP (biphasic positive airway pressure) dependence Cardiology follow-up encounter Chronic anticoagulation Chronic anticoagulation CO2 narcosis COPD (chronic obstructive pulmonary disease) Diabetes Difficulty swallowing DVT (deep venous thrombosis) Dyslipidemia Elevated troponin Essential hypertension Essential hypertension Former smoker Former tobacco use Heart failure with preserved ejection fraction Hematoma Hematoma of left lower leg History of atrial fibrillation History of CHF (congestive heart failure) History of DVT (deep vein thrombosis) History of echocardiogram History of edema History of irregular heartbeat History of pacemaker History of pulmonary embolism History of pulmonary embolus (PE) History of recurrent deep vein thrombosis (DVT) History of steroid therapy Injury of back Low iron Non-smoker On home oxygen therapy Post-menopausal Presence of permanent cardiac pacemaker (~10/12/20) Pulmonary embolism Pulmonary HTN Shortness of breath on exertion Skin necrosis Sleep apnea Tachycardia-bradycardia syndrome Uses wheelchair Venous insufficiency Walker as ambulation aid Wears glasses Wound abscess Home Medications Lactobacillus acidophilus 1 cap PO DAILY [facility] 08/20/20 [History Last Taken 09/01/20 10:42] acetazolamide 250 mg tablet 250 mg PO BID EDEMA 08/20/20 [History Last Taken 09/01/20 08:00] albuterol sulfate 2.5 mg/3 mL (0.083 %) solution for nebulization 2.5 mg (3 mL) inhalation Q2H PRN PRN Shortness of Breath/Wheezing 09/05/20 [Rx Last Taken Unknown] docusate sodium 100 mg capsule 100 mg PO BID 09/05/20 [Rx Last Taken Unknown] ondansetron HCl 4 mg tablet 4 mg PO Q4H PRN Nausea 07/14/21 [History Last Taken Unknown] vit C 250 mg-vit E 90 mg-zinc 40 mg-copper 1 [id number] capsule (PreserVision AREDS-2) 1 tab PO BID 07/14/21 [History Last Taken Unknown] furosemide 20 mg tablet 20 mg PO DAILY 01/14/22 [History Last Taken Unknown] acetaminophen 500 mg capsule 1,000 mg PO Q8H PRN Pain 04/14/22 [History Last Taken Unknown] albuterol sulfate 90 mcg/actuation aerosol inhaler (Ventolin HFA) 2 puff inhalation Q4H PRN PRN Wheezing ##1 04/14/22 [Rx Last Taken Unknown] ipratropium 0.5 mg-albuterol 3 mg (2.5 mg base)/3 mL nebulization soln 3 ml inhalation Q4H PRN Wheezing 08/20/22 [History Last Taken Unknown] budesonide 1 mg/2 mL suspension for nebulization 1 mg (2 mL) inhalation BID #60 mL 10/21/22 [Rx Last Taken Unknown] calcium carbonate 600 mg calcium (1,500 mg) tablet 600 mg PO DAILY 12/31/22 [History Last Taken Unknown] cholecalciferol (vitamin D3) 50 mcg (2,000 unit) tablet (Vitamin D3) 50 mcg PO DAILY 12/31/22 [History Last Taken Unknown] citalopram 20 mg tablet 20 mg PO DAILY 12/31/22 [History Last Taken Unknown] cyanocobalamin (vitamin B-12) 500 mcg tablet 500 mcg PO DAILY 12/31/22 [History Last Taken Unknown] dextromethorphan HBr 10 mg/5 mL oral liquid 10 mg PO Q6H PRN Cough 12/31/22 [History Last Taken Unknown] ipratropium 0.5 mg-albuterol 3 mg (2.5 mg base)/3 mL nebulization soln 3 ml inhalation TID 12/31/22 [History Last Taken Unknown] phenylephrine-shark liver oil-mineral oil-petrolatum rectal ointment (Hemorrhoidal ointment) 1 applic [place] Q6H PRN hemorrhoids 12/31/22 [History Last Taken Unknown] dextrose 40 % oral gel 15 g PO Q15M PRN hypoglycemia 02/08/23 [History Last Taken Unknown] glucagon 1 mg solution for injection (Glucagon Emergency Kit) 1 mg subcut Q20M PRN hypoglycem 02/08/23 [History Last Taken Unknown] gabapentin 300 mg capsule 300 mg PO QHS 03/20/23 [History Last Taken Unknown] azithromycin 250 mg tablet 250 mg PO QMWF #36 tabs 04/19/23 [Rx Last Taken Unknown] prednisone 10 mg tablet 10 mg PO DAILY #90 tabs 04/19/23 [Rx Last Taken Unknown] lorazepam 0.5 mg tablet 0.5 mg PO Q12H PRN ANXIETY 09/11/23 [History Last Taken Unknown] metoprolol succinate 25 mg tablet,extended release 24 hr 25 mg PO DAILY #90 tabs 09/20/23 [Rx Last Taken Unknown] potassium chloride 20 mEq tablet,extended release 40 meq PO DAILY 09/20/23 [History Last Taken Unknown] apixaban 5 mg tablet (Eliquis) 5 mg PO BID 10/01/23 [History Last Taken Unknown] bisacodyl 10 mg rectal suppository 10 mg TX DAILY PRN constipation 10/01/23 [History Last Taken Unknown] lorazepam 0.5 mg tablet (Ativan) 0.5 mg PO BID 10/01/23 [History Last Taken Unknown] magnesium hydroxide 400 mg/5 mL oral suspension (Milk of Magnesia) 30 ml PO DAILY PRN constipation 10/01/23 [History Last Taken Unknown] mineral oil (Fleet Mineral Oil enema) 118 ml TX DAILY PRN constipation 10/01/23 [History Last Taken Unknown] pantoprazole 20 mg tablet,delayed release 20 mg PO DAILY 10/01/23 [History Last Taken Unknown] polyethylene glycol 3350 17 gram/dose oral powder (Miralax) 17 g PO DAILY PRN constipation 10/01/23 [History Last Taken Unknown] Allergy/AdvReac Type Severity Reaction Status Date / Time amlodipine besylate AdvReac ANKLE AND Verified 09/11/23 23:18 [From [facility]] LEG EDEMA codeine AdvReac MENTAL Verified 09/11/23 23:18 STATUS CHANGE lisinopril AdvReac COUGH Verified 09/11/23 23:18 Family History Sister Heart disease Surgical History History of cholecystectomy History of total hysterectomy Hx of atrioventricular node ablation tailbone surgery Social History household members: none housing: senior care Smoking Status: Former smoker how long ago did patient quit smoking: Approxiomately 2003 alcohol intake: never substance use type: does not use caffeine: No ROS ROS ED Review of Systems ROS Unobtainable: due to mental status EXAM Physical Exam Const Vital Signs: 10/01/23 22:01 10/01/23 22:11 10/01/23 22:06 Temperature 97.5 F L 97.9 F Temperature Source Temporal Temporal Pulse Rate 65 60 Respiratory Rate 30 H 32 H Respiratory Effort Labored Respiratory Pattern Blood Pressure 221/144 H 201/98 H Blood Pressure Mean 169 132 Pulse Ox 100 96 Oxygen Delivery Method Bi-pap Oxygen Flow Rate (L/min) 40 Fraction of Inspired Oxygen (FIO2) 10/01/23 22:05 10/01/23 23:06 10/01/23 23:11 Temperature 98.2 F Temperature Source Temporal Pulse Rate 59 L 60 60 Respiratory Rate 47 H 29 H 24 H Respiratory Effort Respiratory Pattern Tachypnea Blood Pressure 150/63 H 156/64 H Blood Pressure Mean 92 94 Pulse Ox 100 96 96 Oxygen Delivery Method Bi-pap Oxygen Flow Rate (L/min) 35 Fraction of Inspired Oxygen (FIO2) 40 10/02/23 00:00 10/02/23 00:00 Temperature 97.8 F Temperature Source Temporal Pulse Rate 60 60 Respiratory Rate 18 18 Respiratory Effort Respiratory Pattern Blood Pressure 134/63 H 134/63 H Blood Pressure Mean 86 86 Pulse Ox 96 96 Oxygen Delivery Method Oxygen Flow Rate (L/min) Fraction of Inspired Oxygen (FIO2) Positive well nourished, well developed and obese Constitutional Narrative: Patient is in respiratory distress. She is somnolent. General Appearance ED: well developed and pallor Nutritional Appearance: obese HEENT normocephalic and atraumatic; Negative for cyanosis of lips/distal nose Eyes PERRL and EOMs intact bilaterally General Eye ED: Yes pale conjunctiva; Negative for scleral icterus Neck full ROM, no lymphadenopathy, supple and no JVD Neck Narrative: Difficult to assess for JVD due to body habitus. Resp Resp Narrative: Patient is using accessory muscles and has retractions. She is on BiPAP. There is little air movement noted. There may be slight wheeze. There also may be rales at the bases. Cardio regular rate, regular rhythm, S1 normal heart sound, S2 normal heart sound and no murmurs GI non-tender, non-distended and no masses Auscultation: hypoactive bowel sounds Palpation: soft Back/Spine no CVA tenderness Neuro oriented x3, CN's II-XII intact bilaterally and no sensory deficits noted Sensorium / Orientation: alert Speech: Negative for speech normal Gait (Neuro): Negative for normal gait Psych Psych Narrative: Unable to determine Skin General Skin Exam: pallor; Negative for jaundice MDM MDM MDM Narrative Medical decision making narrative: Patient is unable to contribute with regards to her history and little to her physical exam. Chest x-ray may represent heart failure. Difficult to assess because limited inspiratory volume and the fact that is portable and rotated. Heart is enlarged. There are no curly B-lines. There is no effusion. Differential diagnosis is pneumothorax, pulmonary embolus, exasperate COPD, exacerbation congestive heart failure, high-output heart failure due to anemia since she is very pale and her conjunctive is pale. ABG was obtained to assess acid-base status and specifically CO2 as well as PaO2. Review of last admission reveals that patient is DNR Comfort Care arrest no intubation. This was documented by Dr. Freddy Hamilton on September 12, 2023 History & Record Review Additional record(s) reviewed:: Prior inpatient record (Most recent admission August of this year. Dr. Avila's discharge summary was read. Dr. Hamilton's note was read as well.), Prior ED visit and Prior labs Lab Data Attestation: I reviewed the patient's lab results. Lab results narrative: White count is 20.9 thousand with shift. There is no bandemia. There is evidence of anemia with an H&H 10.4 and 39.1, which does not make sense. Comprehensive metabolic panel reveals a glucose of 159. CO2 anion gap or remarkable for 6 elevated CO2, which is chronic. Coags are normal. Labs: Laboratory Results - last 24 hr 10/01/23 10/01/23 10/01/23 22:13 22:15 22:40 WBC 20.9 H RBC 4.17 L Hgb 10.4 L Hct 39.1 MCV 93.8 MCH 24.9 L MCHC 26.6 L RDW Std Deviation 63.9 H RDW Coeff of Laura 18.7 H Plt Count 265 MPV 12.2 H Immature Gran % (Auto) 0.600 Neut % (Auto) 76.7 H Lymph % (Auto) 16.3 L Crowley % (Auto) 5.7 Eos % (Auto) 0.5 Baso % (Auto) 0.2 Absolute Neuts (auto) 16.0 H Absolute Lymphs (auto) 3.40 Nucleated RBC % 0 PT 17.0 H INR 1.4 APTT 28.9 Sodium 144 Potassium 3.7 Chloride 106 Carbon Dioxide 34.0 H Anion Gap 4 L BUN 18 Creatinine 0.83 Estim Creat Clear Calc 60.27 Est GFR (MDRD) Af Amer 85 Est GFR (MDRD) Non-Af 70 BUN/Creatinine Ratio 21.6 H Glucose 159 H Calcium 9.0 Total Bilirubin 0.80 AST 16 ALT 27 Alkaline Phosphatase 84 Troponin I High Sens 44 B-Natriuretic Peptide 193.9 H Total Protein 7.2 Albumin 3.3 Globulin 3.9 Albumin/Globulin Ratio 0.8 L Urine Color Yellow Urine Clarity Sl. Cloudy Urine pH 6.5 Ur Specific [place] 1.020 Urine Protein 100 H Urine Glucose (UA) Normal Urine Ketones 15 H Urine Occult Blood 25 H Urine Nitrite Positive H Urine Bilirubin 1 H Urine Urobilinogen 4 H Ur Leukocyte Esterase 100 H Urine RBC 0-5 SEEN Urine WBC 0-5 SEEN Ur Squamous Epith Cells 0 SEEN Calcium Oxalate Crystal 1+ Urine Bacteria RARE Hyaline Casts 0-5 SEEN Urine Mucus 1+ POC Glucose 141 H ABG Data ABG results: ABG 10/01/23 22:16 Specimen Type ART Sample Site L Radial pH 7.28 L Bicarbonate Actual 34.4 H Total CO2 37 Base Excess 8 H O2 Saturation 88 L O2 % 30.0 ABG pCO2 73.4 H* ABG pO2 65 L Mj Test Positive Respiration Rate 12 O2 Delivery Device Not entered Vent Mode Not entered Tidal Volume 500.0 Crit Call To/Read Back Yes Blood Gas Notified Whom zarate Blood Gas Notified Time 22:17:42 Clinical Comments Radiography Chest X-Ray - ED: 1 View and Read by ED Physician (Read by me documented the MDM portion of the chart at 1440.) Diagnostic Testing: Clinical Impression(s) from Imaging Studies Chest X-Ray 10/01/23 22:11 IMPRESSION: Emphysema without pneumonia or atelectasis. Cardiomegaly. Electronically Signed: Dallas Martinez MD at 23:11 EDT Reading Location ID and State: [facility] / [place] Tel , Service support , EKG Initial EKG: Attestation: I personally reviewed and interpreted this EKG as follows: Interpretation: Paced (Demand pacer with a rate of 70. There is a left axis. There is evidence of incomplete right bundle branch block. Interpretation is the EMS EKG that was signed by Dr. Minor at [id number].) Comments: Presently unable to get EKG in the department because of patient's respiratory distress. Follow-up EKG: Attestation: I personally reviewed and interpreted this EKG as follows: Interpretation: Paced (Rate is 60. This is a ventricular paced rhythm.) Treatment and Re-Evaluation Narrative: Because of elevated white count with shift and question of infiltrates on the x-ray will obtain blood cultures and start on Rocephin and azithromycin. Zosyn and vancomycin were not ordered since there is no history of MRSA or concern for MRSA. This would be in compliance with the new recommendation by the Academy of infectious disease. Critical Care Time Critical Care Time: Yes Critical care time (excluding procedures): 30-74 minutes (33), Including time spent: (History, physical, documentation, review of prior records, independent or potation laboratory results), Discussing w/Consultants and Arranging Admission or Transfer Discharge Plan Triage Chief Complaint: Shortness of Breath ED Provider: Damion Zarate Dx/Rx/DC Orders Clinical Impression: Acute on chronic respiratory failure with hypoxia and hypercapnia, Presence of permanent cardiac pacemaker, AV block, complete, Essential hypertension, Current use of lobsterman anticoagulation, Pulmonary hypertension, Acute exacerbation of chronic obstructive pulmonary disease, Acute bronchospasm, DNR (do not resuscitate) Prescriptions: No Action furosemide 20 mg tablet 20 mg PO DAILY Hold Instructions: Restart on Monday if renal function is normal on BMP budesonide 1 mg/2 mL suspension for nebulization 1 mg inhalation BID Qty: 60 6RF Glucagon Emergency Kit (human) 1 mg recon soln 1 mg subcut Q20M PRN (Reason: hypoglycem) Rx Instructions: until target blood sugar attained dextrose 40 % gel 15 g PO Q15M PRN (Reason: hypoglycemia) Rx Instructions: until symptoms of low blood sugar are controlled azithromycin 250 mg tablet 250 mg PO QMWF Qty: 36 0RF Rx Instructions: Mon, and monday prednisone 10 mg tablet 10 mg PO DAILY Qty: 90 3RF Hold Instructions: Hold until prednisone taper is completed and then reinitiate acetazolamide 250 MG tablet 250 mg PO BID Hold Instructions: Hold until BMP is done on Monday and reinitiate if renal function is stable Lactobacillus acidophilus 1 EACH capsule 1 cap PO DAILY albuterol sulfate 2.5 MG/3 ML solution for nebulization 2.5 mg INHALATION Q2H PRN PRN (Reason: Shortness of Breath/Wheezing) 0RF docusate sodium 100 MG capsule 100 mg PO BID 0RF ondansetron HCl 4 mg Tablet 4 mg PO Q4H PRN (Reason: Nausea) PreserVision AREDS-2 250-90-40-1 mg Capsule 1 tab PO BID acetaminophen 500 mg Capsule 1,000 mg PO Q8H PRN (Reason: Pain) albuterol sulfate [Ventolin HFA] 90 mcg/actuation HFA aerosol inhaler 2 puff inhalation Q4H PRN PRN (Reason: Wheezing) Qty: 1 0RF ipratropium-albuterol 0.5 mg-3 mg(2.5 mg base)/3 mL Solution For Nebulization 3 ml INHALATION Q4H PRN (Reason: Wheezing) ipratropium-albuterol 0.5 mg-3 mg(2.5 mg base)/3 mL Solution For Nebulization 3 ml INHALATION TID dextromethorphan HBr 10 mg/5 mL Liquid 10 mg PO Q6H PRN (Reason: Cough) calcium carbonate 600 mg calcium (1,500 mg) Tablet 600 mg PO DAILY citalopram 20 mg tablet 20 mg PO DAILY cyanocobalamin (vitamin B-12) 500 mcg Tablet 500 mcg PO DAILY Hemorrhoidal Ointment 1 applic TX Q6H PRN (Reason: hemorrhoids) cholecalciferol (vitamin D3) [Vitamin D3] 50 mcg (2,000 unit) Tablet 50 mcg PO DAILY gabapentin 300 mg capsule 300 mg PO QHS bisacodyl 10 mg suppository 10 mg TX DAILY PRN (Reason: constipation) Eliquis 5 mg tablet 5 mg PO BID mineral oil [Fleet Mineral Oil] Enema 118 ml TX DAILY PRN (Reason: constipation) Rx Instructions: discard any unused portion lorazepam [Ativan] 0.5 mg tablet 0.5 mg PO BID magnesium hydroxide [Milk of Magnesia] 400 mg/5 mL suspension 30 ml PO DAILY PRN (Reason: constipation) polyethylene glycol 3350 [Miralax] 17 gram/dose powder 17 g PO DAILY PRN (Reason: constipation) pantoprazole 20 mg tablet,delayed release (DR/EC) 20 mg PO DAILY lorazepam 0.5 mg tablet 0.5 mg PO Q12H PRN (Reason: ANXIETY) metoprolol succinate 25 mg tablet extended release 24 hr 25 mg PO DAILY Qty: 90 3RF potassium chloride 20 mEq tablet extended release 40 meq PO DAILY Primary Care Provider: Tor Lucia Referrals: Tor Lucia MD [Primary Care Provider] - Disposition Disposition: Acute Care Hospital [facility]
[2023-10-01 22:30] LABS: Bedside Glucose 141 mg/dL (74-106)
[2023-10-01 22:34] LABS: Basophil# 0.04 X10^3/uL; Basophil% 0.2 % (0-1); Eosinophils% 0.5 % (0-5); Hematocrit 39.1 % (37-47); Hemoglobin 10.4 g/dL (12.0-15.0); International Normalized Ratio 1.4; Lymphocyte % 16.3 % (19-41); Mean Corp Hgb Conc 26.6 g/dL (32-36); Mean Corpuscular Hgb 24.9 pg (27.0-32.0); Mean Corpuscular Volume 93.8 fL (81-99); Mean Platelet Vol. 12.2 fl (6.2-12.0); Monocyte# 1.19 X10^3/uL; Monocyte% 5.7 % (0-10); NRBC Flagged by Analyzer 0 % (0-5); Neutrophil % 76.7 % (47-70); Platelet Count 265 K/mm3 (150-450); RBC Distribution Width CV 18.7 % (11.6-14.6); RBC Distribution Width SD 63.9 fl (35.1-43.9); Red Blood Count 4.17 M/mm3 (4.2-5.4); White Blood Count 20.9 K/mm3 (4.4-11.0)
[2023-10-01 22:35] LABS: Partial Thromboplast Time 28.9 Seconds (24.1-36.2)
[2023-10-01 22:44] LABS: Squamous Epithelial Cells - UA 0 SEEN /hpf (5-10)
[2023-10-01 22:51] LABS: ALB/GLOB Ratio 0.8 RATIO (0.9-2.4); AST(SGOT) 16 U/L (15-37); Alanine Aminotransfer ALT/SGPT 27 U/L (13-56); Albumin, Serum 3.3 g/dL (3.2-5.0); Alkaline Phosphatase 84 U/L (45-117); Anion Gap 4 (5-15); BUN 18 mg/dL (7-18); BUN/Creat Ratio 21.6 RATIO (10-20); Chloride 106 mmol/L (98-107); Creatinine, Serum 0.83 mg/dL (0.55-1.02); EST Glomerular Filtration Rate 70 mL/min (>60); Est Glom Filt Rate - Afr Amer 85 mL/min (>60); Estimated Creatinine Clearance 60.27 ml/min; Globulin 3.9 g/dL (2.2-4.2); Glucose 159 mg/dL (74-106); Potassium 3.7 mmol/L (3.5-5.1); Protein, Total 7.2 g/dL (6.4-8.2); Sodium Level 144 mmol/L (136-145); Troponin-I HS (w/2H Reflex) 44 pg/mL (3.0-54.0)
[2023-10-01 22:55] LABS: Color, Urine Yellow (Yellow); Glucose, Dipstick Normal (Normal); Ketone-Dipstick 15 mg/dl (Negative); Leukocyte Esterase-Dipstick 100 /ul (Negative); Nitrite-Dipstick Positive (Negative); Occult Blood-Urine 25 /ul (Negative); Protein-Dipstick 100 mg/dl (Negative); Urine Clarity Sl. Cloudy (Clear); Urine Urobilinogen 4 mg/dl (Normal); Urine pH 6.5 (5.0 - 8.0)
[2023-10-01 22:56] LABS: Urine Bilirubin Dipstick 1 mg/dL (Negative)
[2023-10-01 23:02] LABS: Bacteria RARE /hpf (None Seen); Hyaline Cast 0-5 SEEN /lpf (0-5); White Blood Cells 0-5 SEEN /hpf (0-5)
[2023-10-01 23:03] LABS: Calcium Oxalate Crystals Ur 1+ /hpf (<or=2+); Mucous, Urine 1+ /hpf (<or=2+); Red Blood Cells-Urine 0-5 SEEN /hpf (0-5)
[2023-10-01 23:06] VITALS: BP 150/63; PULSE 60; RESP 29; TEMP 36.8; O2SAT 96
[2023-10-01] MEDS: Ceftriaxone 2 GM in 0.9% Normal Saline (50mL MB+) 50 ML IV (23:09)
[2023-10-01 23:10] LABS: BNP,B-Type NATRIURETIC PEPTIDE 193.9 pg/mL (0-100)
[2023-10-01 23:11] VITALS: BP 156/64; PULSE 60; RESP 24; O2SAT 96
[2023-10-01] MEDS: Azithromycin 500 MG in Dextrose 5%-Water (250mL Bag) 250 ML 250 MG IV (23:50)
[2023-10-02] VITALS (22 sets, daily range): BP systolic 126–151; BP diastolic 60–81; PULSE 59–68; RESP 14–33; TEMP 36.2–36.9; O2SAT 95–99; BMI 31.1
[2023-10-02 00:21] LABS: Reflex Troponin-HS? (from REC) Y
--- NOTE | 2023-10-02 00:50 | HP.PCM.HOS_ITS ---
[facility] - General General Date of Admission: 10/02/23 Date of Service: 10/02/23 Chief Complaint: SOB and AMS. HPI Narrative BERTO SIMPSON, is a 77 F with a past medical history of essential hypertension, hyperlipidemia, obesity; with BMI of 34.7 present on admission, chronic diastolic CHF; with preserved LVEF, history of tobacco abuse; with subsequent COPD, history of arrhythmia; s/p PPM, PAF; on Apixaban, history of DVT, generalized anxiety, GERD, chronic constipation and DNR-CCA Code Status; with no intubation who presents to [facility] ER complaining of SOB with altered mental status. Ms. Simpson is not a reliable historian at this time so information was gathered from chart, medical staff and computer. According to the records her symptoms began [facility] Medical History (Updated 10/02/23 @ 03:[address] Freddy Mooney, ) Abscess of left leg Anemia Arthritis Atrial fibrillation AV block, complete BiPAP (biphasic positive airway pressure) dependence Cardiology follow-up encounter Chronic anticoagulation Chronic anticoagulation CO2 narcosis COPD (chronic obstructive pulmonary disease) Diabetes Difficulty swallowing DVT (deep venous thrombosis) Dyslipidemia Elevated troponin Essential hypertension Essential hypertension Former smoker Former tobacco use Heart failure with preserved ejection fraction Hematoma Hematoma of left lower leg History of atrial fibrillation History of CHF (congestive heart failure) History of DVT (deep vein thrombosis) History of echocardiogram History of edema History of irregular heartbeat History of pacemaker History of pulmonary embolism History of pulmonary embolus (PE) History of recurrent deep vein thrombosis (DVT) History of steroid therapy Injury of back Low iron Non-smoker On home oxygen therapy Post-menopausal Presence of permanent cardiac pacemaker (~10/12/20) Pulmonary embolism Pulmonary HTN Shortness of breath on exertion Skin necrosis Sleep apnea Tachycardia-bradycardia syndrome Uses wheelchair Venous insufficiency Walker as ambulation aid Wears glasses Wound abscess Medical History unable to obtain Home Medications Lactobacillus acidophilus 1 cap PO DAILY [facility] 08/20/20 [History Last Taken 09/01/20 10:42] acetazolamide 250 mg tablet 250 mg PO BID EDEMA 08/20/20 [History Last Taken 09/01/20 08:00] albuterol sulfate 2.5 mg/3 mL (0.083 %) solution for nebulization 2.5 mg (3 mL) inhalation Q2H PRN PRN Shortness of Breath/Wheezing 09/05/20 [Rx Last Taken Unknown] docusate sodium 100 mg capsule 100 mg PO BID 09/05/20 [Rx Last Taken Unknown] ondansetron HCl 4 mg tablet 4 mg PO Q4H PRN Nausea 07/14/21 [History Last Taken Unknown] vit C 250 mg-vit E 90 mg-zinc 40 mg-copper 1 vo-zjoakn-ezbbgl capsule (PreserVision AREDS-2) 1 tab PO BID 07/14/21 [History Last Taken Unknown] furosemide 20 mg tablet 20 mg PO DAILY 01/14/22 [History Last Taken Unknown] acetaminophen 500 mg capsule 1,000 mg PO Q8H PRN Pain 04/14/22 [History Last Taken Unknown] albuterol sulfate 90 mcg/actuation aerosol inhaler (Ventolin HFA) 2 puff inhalation Q4H PRN PRN Wheezing ##1 04/14/22 [Rx Last Taken Unknown] ipratropium 0.5 mg-albuterol 3 mg (2.5 mg base)/3 mL nebulization soln 3 ml inhalation Q4H PRN Wheezing 08/20/22 [History Last Taken Unknown] budesonide 1 mg/2 mL suspension for nebulization 1 mg (2 mL) inhalation BID #60 mL 10/21/22 [Rx Last Taken Unknown] calcium carbonate 600 mg calcium (1,500 mg) tablet 600 mg PO DAILY 12/31/22 [History Last Taken Unknown] cholecalciferol (vitamin D3) 50 mcg (2,000 unit) tablet (Vitamin D3) 50 mcg PO DAILY 12/31/22 [History Last Taken Unknown] citalopram 20 mg tablet 20 mg PO DAILY 12/31/22 [History Last Taken Unknown] cyanocobalamin (vitamin B-12) 500 mcg tablet 500 mcg PO DAILY 12/31/22 [History Last Taken Unknown] dextromethorphan HBr 10 mg/5 mL oral liquid 10 mg PO Q6H PRN Cough 12/31/22 [History Last Taken Unknown] ipratropium 0.5 mg-albuterol 3 mg (2.5 mg base)/3 mL nebulization soln 3 ml inhalation TID 12/31/22 [History Last Taken Unknown] phenylephrine-shark liver oil-mineral oil-petrolatum rectal ointment (Hemorrhoidal ointment) 1 applic HI Q6H PRN hemorrhoids 12/31/22 [History Last Taken Unknown] dextrose 40 % oral gel 15 g PO Q15M PRN hypoglycemia 02/08/23 [History Last Taken Unknown] glucagon 1 mg solution for injection (Glucagon Emergency Kit) 1 mg subcut Q20M PRN hypoglycem 02/08/23 [History Last Taken Unknown] gabapentin 300 mg capsule 300 mg PO QHS 03/20/23 [History Last Taken Unknown] azithromycin 250 mg tablet 250 mg PO QMWF #36 tabs 04/19/23 [Rx Last Taken Unknown] prednisone 10 mg tablet 10 mg PO DAILY #90 tabs 04/19/23 [Rx Last Taken Unknown] lorazepam 0.5 mg tablet 0.5 mg PO Q12H PRN ANXIETY 09/11/23 [History Last Taken Unknown] metoprolol succinate 25 mg tablet,extended release 24 hr 25 mg PO DAILY #90 tabs 09/20/23 [Rx Last Taken Unknown] potassium chloride 20 mEq tablet,extended release 40 meq PO DAILY 09/20/23 [History Last Taken Unknown] apixaban 5 mg tablet (Eliquis) 5 mg PO BID 10/01/23 [History Last Taken Unknown] bisacodyl 10 mg rectal suppository 10 mg HI DAILY PRN constipation 10/01/23 [History Last Taken Unknown] lorazepam 0.5 mg tablet (Ativan) 0.5 mg PO BID 10/01/23 [History Last Taken Unknown] magnesium hydroxide 400 mg/5 mL oral suspension (Milk of Magnesia) 30 ml PO DAILY PRN constipation 10/01/23 [History Last Taken Unknown] mineral oil (Fleet Mineral Oil enema) 118 ml HI DAILY PRN constipation 10/01/23 [History Last Taken Unknown] pantoprazole 20 mg tablet,delayed release 20 mg PO DAILY 10/01/23 [History Last Taken Unknown] polyethylene glycol 3350 17 gram/dose oral powder (Miralax) 17 g PO DAILY PRN constipation 10/01/23 [History Last Taken Unknown] Allergy/AdvReac Type Severity Reaction Status Date / Time amlodipine besylate AdvReac ANKLE AND Verified 09/11/23 23:18 [From [facility]] LEG EDEMA codeine AdvReac MENTAL Verified 09/11/23 23:18 STATUS CHANGE lisinopril AdvReac COUGH Verified 09/11/23 23:18 Family History Sister Heart disease Family History unable to obtain Surgical History History of cholecystectomy History of total hysterectomy Hx of atrioventricular node ablation tailbone surgery Surgical History unable to obtain Social History household members: none housing: [facility] Smoking Status: Former smoker how long ago did patient quit smoking: Approxiomately 2003 alcohol intake: never substance use type: does not use caffeine: No Vital Signs Vital Signs Vital Signs: 10/01/23 22:01 10/01/23 22:11 10/01/23 22:06 Temperature 97.5 F L 97.9 F Temperature Source Temporal Temporal Pulse Rate 65 60 Respiratory Rate 30 H 32 H Respiratory Effort Labored Respiratory Pattern Blood Pressure 221/144 H 201/98 H Blood Pressure Mean 169 132 Pulse Ox 100 96 Oxygen Delivery Method Bi-pap Oxygen Flow Rate (L/min) 40 Fraction of Inspired Oxygen (FIO2) 10/01/23 22:05 10/01/23 23:06 10/01/23 23:11 Temperature 98.2 F Temperature Source Temporal Pulse Rate 59 L 60 60 Respiratory Rate 47 H 29 H 24 H Respiratory Effort Respiratory Pattern Tachypnea Blood Pressure 150/63 H 156/64 H Blood Pressure Mean 92 94 Pulse Ox 100 96 96 Oxygen Delivery Method Bi-pap Oxygen Flow Rate (L/min) 35 Fraction of Inspired Oxygen (FIO2) 40 Weight Weight: 201 lb 15.095 oz Body Mass Index (BMI) 34.7 Results Lab / Micro Data 10/01/23 22:15 10/01/23 22:15 Labs: Laboratory Results - last 24 hr 10/01/23 22:13: POC Glucose 141 H 10/01/23 22:15: WBC 20.9 H, RBC 4.17 L, Hgb 10.4 L, Hct 39.1, MCV 93.8, MCH 24.9 L, MCHC 26.6 L, RDW Std Deviation 63.9 H, RDW Coeff of Laura 18.7 H, Plt Count 265, MPV 12.2 H, Immature Gran % (Auto) 0.600, Neut % (Auto) 76.7 H, Lymph % (Auto) 16.3 L, [place] % (Auto) 5.7, Eos % (Auto) 0.5, Baso % (Auto) 0.2, Absolute Neuts (auto) 16.0 H, Absolute Lymphs (auto) 3.40, Nucleated RBC % 0, PT 17.0 H, INR 1.4, APTT 28.9, Sodium 144, Potassium 3.7, Chloride 106, Carbon Dioxide 34.0 H, Anion Gap 4 L, BUN 18, Creatinine 0.83, Estim Creat Clear Calc 60.27, Est GFR (MDRD) Af Amer 85, Est GFR (MDRD) Non-Af 70, BUN/Creatinine Ratio 21.6 H, Glucose 159 H, Calcium 9.0, Total Bilirubin 0.80, AST 16, ALT 27, Alkaline Phosphatase 84, Troponin I High Sens 44, B-Natriuretic Peptide 193.9 H, Total Protein 7.2, Albumin 3.3, Globulin 3.9, Albumin/Globulin Ratio 0.8 L 10/01/23 22:40: Urine Color Yellow, Urine Clarity Sl. Cloudy, Urine pH 6.5, Ur Specific [place] 1.020, Urine Protein 100 H, Urine Glucose (UA) Normal, Urine Ketones 15 H, Urine Occult Blood 25 H, Urine Nitrite Positive H, Urine Bilirubin 1 H, Urine Urobilinogen 4 H, Ur Leukocyte Esterase 100 H, Urine RBC 0-5 SEEN, Urine WBC 0-5 SEEN, Ur Squamous Epith Cells 0 SEEN, Calcium Oxalate Crystal 1+, Urine Bacteria RARE, Hyaline Casts 0-5 SEEN, Urine Mucus 1+ Micro: Microbiology 10/01/23 22:24 Mucosa - Nose SARS-CoV-2, Influenza & RSV (PCR) - Final ABG Data ABG results: ABG 10/01/23 22:16 Specimen Type ART Sample Site L Radial pH 7.28 L Bicarbonate Actual 34.4 H Total CO2 37 Base Excess 8 H O2 Saturation 88 L O2 % 30.0 ABG pCO2 73.4 H* ABG pO2 65 L Mj Test Positive Respiration Rate 12 O2 Delivery Device Not entered Vent Mode Not entered Tidal Volume 500.0 Crit Call To/Read Back Yes Blood Gas Notified Whom zarate Blood Gas Notified Time 22:17:42 Clinical Comments Imaging Radiology Impression Chest X-Ray 10/01/23 22:11 IMPRESSION: Emphysema without pneumonia or atelectasis. Cardiomegaly. Electronically Signed: Dallas Martinez MD at 23:11 EDT , Assessment & Plan Assessment/Plan (1) Acute exacerbation of chronic obstructive pulmonary disease: (2) Acute on chronic respiratory failure with hypoxia and hypercapnia: (3) Metabolic encephalopathy: (4) DNR (do not resuscitate): PLAN: Plan 1. AE COPD; with Acute Hypoxic and Hypercapnic Respiratory Failure requiring BiPAP in the setting of a known DNR-CCA Code status; without intubation - Admit to PCU. Continue antibiotics, steroids, nebulizers and supplemental oxygen. Wean BiPAP as tolerated back to baseline levels. Patient did not have signs of sepsis present on admission. 2. Metabolic Encephalopathy arising from #1 - Continue supportive care and monitor for improvement. 3. Essential Hypertension - Hold scheduled antihypertensives in light of #1. Give IV Hydralazine prn for systolic blood pressure > 160 mm Hg. 4. Hyperlipidemia - Resume statin when patient is able to safely tolerate oral intake. 5. Obesity; with BMI of 34.7 present on admission - Weight loss will be recommended when patient becomes more alert. 6. Chronic diastolic CHF; with preserved LVEF - Stable with no evidence of flare. 7. History of arrhythmia; s/p PPM - Noted. 8. PAF; on Apixaban - Hold Apixaban with patient unable to take it at this time. We will instead give full-dose Lovenox until NOAC can be restarted. 9. History of DVT - Noted. 10. Generalized anxiety - Noted. 11. GERD - Continue PPI IV. 12. Chronic constipation - Noted. Restart laxatives when patient is safely able to tolerate these agents. 13. DVT prophylaxis - Patient will be treated with full-dose Lovenox since she cannot take oral NOAC. Total time: Approximately 55 minutes. Charges/Coding Visit Charges Inpatient E&M: 76401 Init Hosp L2
[2023-10-02] MEDS: Ipratropium/Albuterol Sulfate 3 ML AMPUL.NEB INHALATION ×4 (01:28→19:36)
[2023-10-02] MEDS: Albuterol 2.5 MG/3 ML VIAL.NEB. INHALATION ×2 (01:29→15:19)
[2023-10-02] MEDS: 0.9% Saline Lock 10 ML Syringe IV ×2 (02:39→20:30)
[2023-10-02] MEDS: MethylPREDNISolone 125 MG/2 ML Vial IV (02:39)
[2023-10-02] MEDS: 0.9% Normal Saline (1000mL) 1,000 ML 70 ML IV ×2 (02:50→18:23)
--- NOTE | 2023-10-02 03:35 | NURSING ---
Contacted Dr. Machado regarding sepsis alert being triggered for Pt. d/t respirations being elevated, new reliance on Bipap and elevated WBC count. When discussing the criteria, Dr. Machado stated that because pt. uses Bipap qHS, pt. does not have a new need for bipap, eliminating the sepsis alert. Also discussed that antibiotics have been started and IV fluids running while waiting for blood cultures in the event that blood cultures are positive.
[2023-10-02 04:59] LABS: Absolute Lymphocyte Count 0.31 X10^3/uL (0.83-4.51); Absolute Neutrophil Count 13.4 X10^3/uL (2.0-7.7); Basophil# 0.01 X10^3/uL; Basophil% 0.1 % (0-1); Hematocrit 34.2 % (37-47); Hemoglobin 9.3 g/dL (12.0-15.0); Lymphocyte # 0.31 X10^3/ul (0.83-4.51); Lymphocyte % 2.2 % (19-41); Mean Corp Hgb Conc 27.2 g/dL (32-36); Mean Corpuscular Hgb 24.8 pg (27.0-32.0); Mean Corpuscular Volume 91.2 fL (81-99); Mean Platelet Vol. 12.4 fl (6.2-12.0); Monocyte# 0.07 X10^3/uL; Monocyte% 0.5 % (0-10); NRBC Flagged by Analyzer 0 % (0-5); Neutrophil # 13.43 X10^3/uL (2.7-7.7); Neutrophil % 96.6 % (47-70); POSITIVE DIFFERENTIAL YES; Platelet Count 196 K/mm3 (150-450); RBC Distribution Width CV 18.6 % (11.6-14.6); RBC Distribution Width SD 61.9 fl (35.1-43.9); Red Blood Count 3.75 M/mm3 (4.2-5.4); White Blood Count 13.9 K/mm3 (4.4-11.0)
[2023-10-02 05:04] LABS: Blood Gas Specimen Type VEN; O2 Delivery Device BiPAP; PEEP 10; PIP 24; RR 14; SITE Not entered; VBG BASE EXCESS 7 mmol/L (-1.0-3.5); VBG Bicarbonate 32 mmol/L (22-26); VBG PO2 70 mmHg (25-40); VBG SO2 92 % (50-70); VBG TCO2 34 mmol/L (23-33); VBG pCO2 60.9 mmHg (41-51); VBG pH 7.33 (7.32-7.42)
[2023-10-02 05:18] LABS: ALB/GLOB Ratio 0.8 RATIO (0.9-2.4); AST(SGOT) 14 U/L (15-37); Alanine Aminotransfer ALT/SGPT 22 U/L (13-56); Albumin, Serum 2.9 g/dL (3.2-5.0); Alkaline Phosphatase 74 U/L (45-117); Anion Gap 5 (5-15); BUN 21 mg/dL (7-18); BUN/Creat Ratio 29.3 RATIO (10-20); Calcium,Total 8.7 mg/dL (8.5-10.1); Chloride 106 mmol/L (98-107); Creatinine, Serum 0.72 mg/dL (0.55-1.02); EST Glomerular Filtration Rate 83 mL/min (>60); Est Glom Filt Rate - Afr Amer 101 mL/min (>60); Estimated Creatinine Clearance 63.53 ml/min; Globulin 3.7 g/dL (2.2-4.2); Glucose 195 mg/dL (74-106); Magnesium 2.1 mg/dL (1.6-2.6); Phosphorus 3.4 mg/dL (2.5-4.9); Potassium 4.2 mmol/L (3.5-5.1); Protein, Total 6.6 g/dL (6.4-8.2); Sodium Level 144 mmol/L (136-145)
[2023-10-02 05:28] LABS: Troponin-I HS 160 pg/mL (3.0-54.0)
[2023-10-02] MEDS: Enoxaparin 100 MG/ML Syringe 90 MG SC ×2 (10:56→21:05)
[2023-10-02] MEDS: Clopidogrel Bisulfate 75 MG Tablet PO (10:57)
[2023-10-02] MEDS: Pantoprazole Sodium 40 MG in 0.9% Normal Saline (100mL MB+) 100 ML 330 MG IV (10:57)
[2023-10-02] MEDS: Aspirin E.C. 81 MG Tablet PO (10:57)
[2023-10-02] MEDS: MethylPREDNISolone 125 MG/2 ML Vial 60 MG IV ×2 (10:58→21:06)
--- NOTE | 2023-10-02 13:00 | PCM.PROGNOTE ---
Subjective Subjective Patient seen and examined. She was on BIPAP. She feels much better today. She was on BIPAP. Objective Data Objective Data Vital Signs: Vital Signs Temp Pulse Resp BP Pulse Ox O2 Del Method O2 Flow Rate 97.3 F L 60 24 H 142/76 H 97 Nasal Cannula 2 10/02/23 10:52 10/02/23 10:52 10/02/23 10:52 10/02/23 10:52 10/02/23 10:52 10/02/23 10:52 10/02/23 08:40 FiO2 30 10/02/23 07:14 Oxygen Flow Rate (L/min) 2 Oxygen Delivery Method Nasal Cannula Weight: 192 lb 14.472 oz Body Mass Index (BMI) 31.1 Intake & Output: Intake and Output for Last 24 Hours 09/30/23 10/01/23 10/02/23 23:59 23:59 23:59 Intake Total 50 / 50 365 / 365 Balance 50 / 50 365 / 365 Lab / Micro Data 10/02/23 04:49 10/02/23 04:49 Labs: Laboratory Results - last 24 hr 10/01/23 22:13: POC Glucose 141 H 10/01/23 22:15: WBC 20.9 H, RBC 4.17 L, Hgb 10.4 L, Hct 39.1, MCV 93.8, MCH 24.9 L, MCHC 26.6 L, RDW Std Deviation 63.9 H, RDW Coeff of Laura 18.7 H, Plt Count 265, MPV 12.2 H, Immature Gran % (Auto) 0.600, Neut % (Auto) 76.7 H, Lymph % (Auto) 16.3 L, [place] % (Auto) 5.7, Eos % (Auto) 0.5, Baso % (Auto) 0.2, Absolute Neuts (auto) 16.0 H, Absolute Lymphs (auto) 3.40, Nucleated RBC % 0, PT 17.0 H, INR 1.4, APTT 28.9, Sodium 144, Potassium 3.7, Chloride 106, Carbon Dioxide 34.0 H, Anion Gap 4 L, BUN 18, Creatinine 0.83, Estim Creat Clear Calc 60.27, Est GFR (MDRD) Af Amer 85, Est GFR (MDRD) Non-Af 70, BUN/Creatinine Ratio 21.6 H, Glucose 159 H, Calcium 9.0, Total Bilirubin 0.80, AST 16, ALT 27, Alkaline Phosphatase 84, Troponin I High Sens 44, B-Natriuretic Peptide 193.9 H, Total Protein 7.2, Albumin 3.3, Globulin 3.9, Albumin/Globulin Ratio 0.8 L 10/01/23 22:40: Urine Color Yellow, Urine Clarity Sl. Cloudy, Urine pH 6.5, Ur Specific [place] 1.020, Urine Protein 100 H, Urine Glucose (UA) Normal, Urine Ketones 15 H, Urine Occult Blood 25 H, Urine Nitrite Positive H, Urine Bilirubin 1 H, Urine Urobilinogen 4 H, Ur Leukocyte Esterase 100 H, Urine RBC 0-5 SEEN, Urine WBC 0-5 SEEN, Ur Squamous Epith Cells 0 SEEN, Calcium Oxalate Crystal 1+, Urine Bacteria RARE, Hyaline Casts 0-5 SEEN, Urine Mucus 1+ 10/02/23 04:49: WBC 13.9 H, RBC 3.75 L, Hgb 9.3 L, Hct 34.2 L, MCV 91.2, MCH 24.8 L, MCHC 27.2 L, RDW Std Deviation 61.9 H, RDW Coeff of Laura 18.6 H, Plt Count 196, MPV 12.4 H, Immature Gran % (Auto) 0.600, Neut % (Auto) 96.6 H, Lymph % (Auto) 2.2 L, [place] % (Auto) 0.5, Eos % (Auto) 0.0, Baso % (Auto) 0.1, Absolute Neuts (auto) 13.4 H, Absolute Lymphs (auto) 0.31 L, Nucleated RBC % 0, Sodium 144, Potassium 4.2, Chloride 106, Carbon Dioxide 33.0 H, Anion Gap 5, BUN 21 H, Creatinine 0.72, Estim Creat Clear Calc 63.53, Est GFR (MDRD) Af Amer 101, Est GFR (MDRD) Non-Af 83, BUN/Creatinine Ratio 29.3 H, Glucose 195 H, Calcium 8.7, Phosphorus 3.4, Magnesium 2.1, Total Bilirubin 0.70, AST 14 L, ALT 22, Alkaline Phosphatase 74, Troponin I High Sens 160 H*, Total Protein 6.6, Albumin 2.9 L, Globulin 3.7, Albumin/Globulin Ratio 0.8 L Micro: Microbiology 10/01/23 22:24 Mucosa - Nose SARS-CoV-2, Influenza & RSV (PCR) - Final ABG Data ABG results: ABG 10/01/23 10/02/23 22:16 05:01 Specimen Type ART AJ Sample Site L Radial Not entered pH 7.28 L Bicarbonate Actual 34.4 H Total CO2 37 Base Excess 8 H O2 Saturation 88 L O2 % 30.0 30.0 ABG pCO2 73.4 H* ABG pO2 65 L Mj Test Positive VBG pH 7.33 VBG pO2 70 H VBG HCO3 32 H VBG Total CO2 34 H VBG O2 Sat (Calc) 92 H VBG Base Excess 7 H POC Mix VBG pCO2 Pt Tmp 60.9 H Respiration Rate 12 14 O2 Delivery Device Not entered BiPAP Vent Mode Not entered Tidal Volume 500.0 450.0 POC PEEP 10 Peak Inspir Pressure 24 Crit Call To/Read Back Yes Blood Gas Notified Whom zarate Blood Gas Notified Time 22:17:42 Clinical Comments Radiography Diagnostic Testing: Radiology Impression Chest X-Ray 10/01/23 22:11 IMPRESSION: Emphysema without pneumonia or atelectasis. Cardiomegaly. Electronically Signed: Dallas Martinez MD at 23:11 EDT , Physical Exam Const alert, no apparent distress and well nourished Constitutional Narrative: on BIPAP at time of review General Appearance: cooperative HEENT normocephalic, head/scalp atraumatic and moist oral mucous membranes Eyes PERRL and EOMs intact bilaterally Neck no lymphadenopathy and supple Resp Resp Narrative: diminished breath sounds bibasally, mild wheezing, no crackles. Cardio regular rate, regular rhythm, S1 normal heart sound, S2 normal heart sound and no murmurs GI normal to inspection, nondistended, normoactive bowel sounds, soft to palpation, non-tender and non-distended Extremity General Extremity: no tenderness to palpation of joints or extremities Skin General Skin Exam: no breakdown Neuro CN's II-XII intact bilaterally, no focal motor deficits, no sensory deficits noted and deep tendon reflexes 2+ bilaterally Motor Exam: strength 5/5 throughout and general weakness Psych cooperative and affect normal Appearance: appropriate Assessment & Plan Assessment/Plan (1) Acute exacerbation of chronic obstructive pulmonary disease: (2) Acute on chronic respiratory failure with hypoxia and hypercapnia: (3) CO2 narcosis: (4) Metabolic encephalopathy: PLAN: Plan #Acue on chronic hypoxic and hypecapnic respiratory failure due to COPD exacerbation On BiPAP at time of my review Breathing treatments of bronchodilators. Titrate oxygen to maintain saturation above 90%. Wean off BiPAP as tolerated. IV Solu-Medrol #Acute encephalopathy likely due to hypercapnia as above: Management as above. #Benign essential hypertension.: Blood pressure meds held but so is NPO. IV hydralazine prn #Hyperlipidemia: On statin #Heart failure with preserved ejection fraction: Stable #Sick sinus syndrome s/p pacemaker: Stable #Paroxysmal A-fib: On Eliquis. This was held on admission as patient is p.o. Was placed on therapeutic Lovenox in view of Eliquis. #History of DVT: On Eliquis; now on therapeutic Lovenox. #GERD: On PPI DVT prophylaxis: Currently on therapeutic Lovenox Charges/Coding Visit Charges Inpatient E&M: 15847 Subs Hosp L2
[2023-10-02] MEDS: Furosemide 20 MG/2 ML VIAL IV (20:29)
[2023-10-02] MEDS: Ceftriaxone 1 GM/50 ML BAG IV (21:18)
[2023-10-02] MEDS: Acetaminophen 325 MG Tablet 650 MG PO (21:39)
[2023-10-02] MEDS: Azithromycin 500 MG in Dextrose 5%-Water (250mL Bag) 250 ML 250 MG IV (22:25)
[2023-10-03] VITALS (14 sets, daily range): BP systolic 154–168; BP diastolic 67–85; PULSE 59–67; RESP 14–30; TEMP 36.4–37.1; O2SAT 95–100; BMI 31.0
[2023-10-03] MEDS: Ipratropium/Albuterol Sulfate 3 ML AMPUL.NEB INHALATION ×3 (03:15→19:45)
[2023-10-03 06:36] LABS: Absolute Lymphocyte Count 0.49 X10^3/uL (0.83-4.51); Hematocrit 31.7 % (37-47); Hemoglobin 8.8 g/dL (12.0-15.0); Lymphocyte # 0.49 X10^3/ul (0.83-4.51); Lymphocyte % 4.1 % (19-41); Mean Corp Hgb Conc 27.8 g/dL (32-36); Mean Corpuscular Hgb 24.7 pg (27.0-32.0); Mean Platelet Vol. 12.2 fl (6.2-12.0); Monocyte# 0.32 X10^3/uL; Monocyte% 2.7 % (0-10); NRBC Flagged by Analyzer 0 % (0-5); Neutrophil # 10.98 X10^3/uL (2.7-7.7); Neutrophil % 92.8 % (47-70); POSITIVE DIFFERENTIAL YES; Platelet Count 189 K/mm3 (150-450); RBC Distribution Width CV 18.6 % (11.6-14.6); RBC Distribution Width SD 61.2 fl (35.1-43.9); Red Blood Count 3.56 M/mm3 (4.2-5.4); White Blood Count 11.8 K/mm3 (4.4-11.0)
[2023-10-03 07:03] LABS: Anion Gap 5 (5-15); BUN 27 mg/dL (7-18); BUN/Creat Ratio 38.7 RATIO (10-20); Calcium,Total 8.8 mg/dL (8.5-10.1); Chloride 105 mmol/L (98-107); EST Glomerular Filtration Rate 86 mL/min (>60); Est Glom Filt Rate - Afr Amer 104 mL/min (>60); Estimated Creatinine Clearance 63.46 ml/min; Glucose 147 mg/dL (74-106); Potassium 3.8 mmol/L (3.5-5.1); Sodium Level 142 mmol/L (136-145)
[2023-10-03] MEDS: Albuterol 2.5 MG/3 ML VIAL.NEB. INHALATION ×3 (07:47→22:25)
[2023-10-03] MEDS: Enoxaparin 100 MG/ML Syringe 90 MG SC ×2 (08:19→22:18)
[2023-10-03] MEDS: Clopidogrel Bisulfate 75 MG Tablet PO (08:19)
[2023-10-03] MEDS: Aspirin E.C. 81 MG Tablet PO (08:19)
[2023-10-03] MEDS: Pantoprazole Sodium 40 MG in 0.9% Normal Saline (100mL MB+) 100 ML 330 MG IV (08:22)
[2023-10-03] MEDS: MethylPREDNISolone 125 MG/2 ML Vial 60 MG IV ×2 (08:23→20:28)
[2023-10-03 08:36] LABS: Troponin-I HS 47 pg/mL (3.0-54.0)
--- NOTE | 2023-10-03 08:36 | NURSING ---
Advised dr. Robles of BL crackles in bases of lungs and noted facial edema. Advised that pt. typically takes PO lasix 20 mg every day, but it was not ordered d/t pt. being NPO while on bipap. Dr. Robles ordered IV lasix 20 mg x1 dose. Pt. voided approx. 825 ml via pinedo following administration. Lung sounds improved, no longer noting any crackles in bases of lungs.
--- NOTE | 2023-10-03 09:01 | CASEMGMT ---
Addendum entered by Cecily Snyder 10/03/23 09:07: Precert not needed to return. Cecily Snyder, Discharge Planning Asst. Original Note: [facility] Asked if precert will be needed. Awaiting response. Cecily Snyder DC Planning Asst.
--- NOTE | 2023-10-03 09:53 | NURSING ---
Pt is refusing to have her blood drawn. MD Lema aware.
--- NOTE | 2023-10-03 11:27 | NURSING ---
pinedo removed at this time per
--- NOTE | 2023-10-03 12:03 | PN_ITS ---
Subjective Subjective Patient seen and examined. She said she still felt short of breath. She was on 2L of oxygen. She denied any chest pain, palpitations, dizziness, nausea or vomiting or any other symptoms. Review of symptoms otherwise negative. Objective Data Objective Data Vital Signs: Vital Signs Temp Pulse Resp BP Pulse Ox O2 Del Method O2 Flow Rate 98.8 F 60 16 154/67 H 100 Bi-pap 3 10/03/23 11:15 10/03/23 11:15 10/03/23 11:15 10/03/23 11:15 10/03/23 11:15 10/03/23 11:15 10/03/23 08:16 FiO2 28 10/03/23 10:42 Oxygen Flow Rate (L/min) 3 Oxygen Delivery Method Bi-pap Weight: 192 lb 7.417 oz Body Mass Index (BMI) 31.0 Intake & Output: Intake and Output for Last 24 Hours 10/01/23 10/02/23 10/03/23 23:59 23:59 23:59 Intake Total 50 / 50 1460 / 1580 1613.67 / 1613.67 Output Total 450 / 925 825 / 825 Balance 50 / 50 1010 / 655 788.67 / 788.67 Lab / Micro Data 10/03/23 06:20 10/03/23 06:20 Labs: Laboratory Results - last 24 hr 10/03/23 06:20: WBC 11.8 H, RBC 3.56 L, Hgb 8.8 L, Hct 31.7 L, MCV 89.0, MCH 24.7 L, MCHC 27.8 L, RDW Std Deviation 61.2 H, RDW Coeff of Laura 18.6 H, Plt Count 189, MPV 12.2 H, Immature Gran % (Auto) 0.400, Neut % (Auto) 92.8 H, Lymph % (Auto) 4.1 L, [place] % (Auto) 2.7, Eos % (Auto) 0.0, Baso % (Auto) 0.0, Absolute Neuts (auto) 11.0 H, Absolute Lymphs (auto) 0.49 L, Nucleated RBC % 0, Sodium 142, Potassium 3.8, Chloride 105, Carbon Dioxide 32.0, Anion Gap 5, BUN 27 H, Creatinine 0.70, Estim Creat Clear Calc 63.46, Est GFR (MDRD) Af Amer 104, Est GFR (MDRD) Non-Af 86, BUN/Creatinine Ratio 38.7 H, Glucose 147 H, Calcium 8.8 10/03/23 07:58: Troponin I High Sens 47 Micro: Microbiology 10/01/23 22:24 Mucosa - Nose SARS-CoV-2, Influenza & RSV (PCR) - Final Physical Exam Const alert, oriented x3, no apparent distress and well nourished Constitutional Narrative: frail General Appearance: cooperative HEENT normocephalic, head/scalp atraumatic and moist oral mucous membranes Eyes PERRL and EOMs intact bilaterally Neck no lymphadenopathy and supple Lymph Lymphatic: no lymphadenopathy noted and no lymphedema noted Resp Resp Narrative: diminished breath sounds bibasally, mild wheezing, no crackles. Lung sound very tight Cardio regular rate, regular rhythm, S1 normal heart sound, S2 normal heart sound and no murmurs GI normal to inspection, nondistended, normoactive bowel sounds, soft to palpation, non-tender and non-distended Extremity General Extremity: no tenderness to palpation of joints or extremities Skin General Skin Exam: no breakdown Neuro CN's II-XII intact bilaterally, no focal motor deficits, no sensory deficits noted and deep tendon reflexes 2+ bilaterally Motor Exam: strength 5/5 throughout and general weakness Psych thought process normal, cooperative and affect normal Appearance: appropriate Assessment & Plan Assessment/Plan (1) Acute exacerbation of chronic obstructive pulmonary disease: (2) Acute on chronic respiratory failure with hypoxia and hypercapnia: (3) CO2 narcosis: (4) Metabolic encephalopathy: PLAN: Plan #Acue on chronic hypoxic and hypecapnic respiratory failure due to COPD exacer bation * Breathing treatments of bronchodilators. Titrate oxygen to maintain saturation above 90%. Wean off BiPAP as tolerated. * IV Solu-Medrol * #Acute encephalopathy likely due to hypercapnia as above: Management as above. #Elevated troponin: Troponin trended up slightly to 160. However was likely due to demand ischemia. Troponins were normal. Will monitor. #Benign essential hypertension.: Blood pressure meds held as so is NPO. IV hydralazine prn #Hyperlipidemia: On statin #Heart failure with preserved ejection fraction: Stable #Sick sinus syndrome s/p pacemaker: Stable #Paroxysmal A-fib: On Eliquis. This was held on admission as patient is p.o. Was placed on therapeutic Lovenox in view of Eliquis. #History of DVT: On Eliquis; now on therapeutic Lovenox. #GERD: On PPI DVT prophylaxis: Currently on therapeutic Lovenox Charges/Coding Visit Charges Inpatient E&M: 44064 Subs Hosp L2
[2023-10-03] MEDS: Acetaminophen 325 MG Tablet 650 MG PO (13:44)
[2023-10-03] MEDS: Bisacodyl 10 MG Suppository RC (15:46)
--- NOTE | 2023-10-03 16:07 | EKG12_ITS ---
Test Reason : Blood Pressure : / mmHG Vent. Rate : 060 BPM Atrial Rate : 056 BPM P-R Int : 000 ms QRS Dur : 122 ms QT Int : 440 ms P-R-T Axes : 000 -67 091 degrees QTc Int : 440 ms Ventricular-paced rhythm Confirmed by CARLIE BHAT, KATELYN ([id number]), writer editor PABLITO TRUONG ([id number]) on 10/05/2023 11:07:05 AM Referred By: Confirmed By:KATELYN SEXTON MD
[2023-10-03] MEDS: 0.9% Saline Lock 10 ML Syringe IV (20:28)
[2023-10-03] MEDS: Ceftriaxone 1 GM/50 ML BAG IV (20:57)
[2023-10-03] MEDS: Azithromycin 500 MG in Dextrose 5%-Water (250mL Bag) 250 ML 250 MG IV (22:16)
[2023-10-04] VITALS (13 sets, daily range): BP systolic 155–158; BP diastolic 78–111; PULSE 55–68; RESP 14–33; TEMP 36.6–37.1; O2SAT 93–100; BMI 31.5
[2023-10-04] MEDS: LORazepam 0.5 MG Tablet PO ×3 (00:04→21:49)
[2023-10-04] MEDS: Ipratropium/Albuterol Sulfate 3 ML AMPUL.NEB INHALATION ×6 (01:15→23:23)
[2023-10-04 08:08] LABS: Absolute Lymphocyte Count 0.64 X10^3/uL (0.83-4.51); Absolute Neutrophil Count 10.8 X10^3/uL (2.0-7.7); Basophil# 0.01 X10^3/uL; Basophil% 0.1 % (0-1); Hematocrit 32.3 % (37-47); Hemoglobin 8.9 g/dL (12.0-15.0); Lymphocyte # 0.64 X10^3/ul (0.83-4.51); Lymphocyte % 5.4 % (19-41); Mean Corp Hgb Conc 27.6 g/dL (32-36); Mean Corpuscular Hgb 24.4 pg (27.0-32.0); Mean Corpuscular Volume 88.5 fL (81-99); Monocyte# 0.29 X10^3/uL; Monocyte% 2.5 % (0-10); NRBC Flagged by Analyzer 0 % (0-5); Neutrophil # 10.77 X10^3/uL (2.7-7.7); Neutrophil % 91.5 % (47-70); Platelet Count 187 K/mm3 (150-450); RBC Distribution Width CV 18.9 % (11.6-14.6); RBC Distribution Width SD 61.1 fl (35.1-43.9); Red Blood Count 3.65 M/mm3 (4.2-5.4); White Blood Count 11.8 K/mm3 (4.4-11.0)
[2023-10-04] MEDS: Clopidogrel Bisulfate 75 MG Tablet PO (08:18)
[2023-10-04] MEDS: Aspirin E.C. 81 MG Tablet PO (08:18)
[2023-10-04] MEDS: Enoxaparin 100 MG/ML Syringe 90 MG SC ×2 (08:18→21:50)
[2023-10-04] MEDS: MethylPREDNISolone 125 MG/2 ML Vial 60 MG IV ×2 (08:18→21:35)
[2023-10-04] MEDS: Pantoprazole Sodium 40 MG in 0.9% Normal Saline (100mL MB+) 100 ML 330 MG IV (08:25)
[2023-10-04 08:59] LABS: Troponin-I HS 44 pg/mL (3.0-54.0)
--- NOTE | 2023-10-04 09:21 | CASEMGMT ---
YAO was informed that patient and her son are interested in patient going to [facility] for rehab before returning to [place] where patient resides. YAO communicated with Shari in TCU. Shari reviewed patient and has declined due to no bed availability and patient has refused therapy 2 times. YAO met with patient and her son. Introduced self and role at [facility]. YAO confirmed they were looking at patient going to TCU for rehab. YAO explained that TCU does not have any beds and TCU is declining patient due to her refusing therapy 2 times. YAO explained Shawn can try and skill her when she returns. The amount of therapy patient gets is dictated by insurance not facility. They both verbalized understanding. YAO will notify [place] patient would like therapy upon return. Plan: d/c back to [place] under intermediate level of care. Regla Rosenberg LOAD OUT PERSON CARMITA
[2023-10-04 09:39] LABS: Anion Gap 7 (5-15); BUN 32 mg/dL (7-18); BUN/Creat Ratio 50.7 RATIO (10-20); Calcium,Total 9.1 mg/dL (8.5-10.1); Chloride 106 mmol/L (98-107); Creatinine, Serum 0.63 mg/dL (0.55-1.02); EST Glomerular Filtration Rate 97 mL/min (>60); Est Glom Filt Rate - Afr Amer 117 mL/min (>60); Estimated Creatinine Clearance 63.97 ml/min; Glucose 128 mg/dL (74-106); Potassium 4.2 mmol/L (3.5-5.1); Sodium Level 143 mmol/L (136-145)
--- NOTE | 2023-10-04 10:03 | CASEMGMT ---
Patient's son told YAO it is not fair to decline patient for refusing therapy when she was out of it. How can she do therapy when she doesn't even know who she is. YAO also reminded him that TCU has no beds. He then asked SW, Which is it? YAO told him both. He asked who makes that decision and SW let him know the senior energy market coordinator. He said he will talk with her. YAO did notify [facility] via [facility] patient is interested in therapy when she returns. Regla Rosenberg CHIEF ENGINEER RESEARCH CARMITA
[2023-10-04] MEDS: Albuterol 2.5 MG/3 ML VIAL.NEB. INHALATION (11:05)
--- NOTE | 2023-10-04 12:07 | PN_ITS ---
Subjective Subjective Patient seen and examined. She complained of feeling tired. Her breathing was at baseline. She denied any coughing, chest pain, palpitations, dizziness, nausea, vomiting or any other symptoms. Review of systems is otherwise negative. Objective Data Objective Data Vital Signs: Vital Signs Temp Pulse Resp BP Pulse Ox O2 Del Method O2 Flow Rate 98.7 F 60 28 H 158/84 H 98 Nasal Cannula 2 10/04/23 08:15 10/04/23 11:07 10/04/23 11:07 10/04/23 08:15 10/04/23 11:07 10/04/23 08:15 10/04/23 08:15 FiO2 25 10/04/23 11:07 Oxygen Flow Rate (L/min) 2 Oxygen Delivery Method Nasal Cannula Weight: 195 lb 8.8 oz Body Mass Index (BMI) 31.5 Intake & Output: Intake and Output for Last 24 Hours 10/02/23 10/03/23 10/04/23 23:59 23:59 23:59 Intake Total 1460 / 1580 201867 / 360 / 360 Output Total 450 / 925 825 / 825 250 / 250 Balance 1010 / 655 1193.67 / 1193.67 110 / 110 Lab / Micro Data 10/04/23 07:50 10/04/23 07:50 Labs: Laboratory Results - last 24 hr 10/04/23 07:50: WBC 11.8 H, RBC 3.65 L, Hgb 8.9 L, Hct 32.3 L, MCV 88.5, MCH 24.4 L, MCHC 27.6 L, RDW Std Deviation 61.1 H, RDW Coeff of Laura 18.9 H, Plt Count 187, MPV 12.0, Immature Gran % (Auto) 0.500, Neut % (Auto) 91.5 H, Lymph % (Auto) 5.4 L, [place] % (Auto) 2.5, Eos % (Auto) 0.0, Baso % (Auto) 0.1, Absolute Neuts (auto) 10.8 H, Absolute Lymphs (auto) 0.64 L, Nucleated RBC % 0, Sodium 143, Potassium 4.2, Chloride 106, Carbon Dioxide 30.0, Anion Gap 7, BUN 32 H, Creatinine 0.63, Estim Creat Clear Calc 63.97, Est GFR (MDRD) Af Amer 117, Est GFR (MDRD) Non-Af 97, BUN/Creatinine Ratio 50.7 H, Glucose 128 H, Calcium 9.1, Troponin I High Sens 44 Micro: Microbiology 10/01/23 22:24 Mucosa - Nose SARS-CoV-2, Influenza & RSV (PCR) - Final Physical Exam Const alert, oriented x3, no apparent distress and well nourished Constitutional Narrative: frail General Appearance: cooperative HEENT normocephalic, head/scalp atraumatic and moist oral mucous membranes Eyes PERRL and EOMs intact bilaterally Neck no lymphadenopathy and supple Lymph Lymphatic: no lymphadenopathy noted and no lymphedema noted Resp Resp Narrative: diminished breath sounds bibasally, mild wheezing, no crackles. Lung still sound very tight. On 2L of oxygen by nasal canula Cardio regular rate, regular rhythm, S1 normal heart sound, S2 normal heart sound and no murmurs GI normal to inspection, nondistended, normoactive bowel sounds, soft to palpation, non-tender and non-distended Extremity General Extremity: no tenderness to palpation of joints or extremities Skin General Skin Exam: no breakdown Neuro CN's II-XII intact bilaterally, no focal motor deficits, no sensory deficits noted and deep tendon reflexes 2+ bilaterally Motor Exam: strength 5/5 throughout and general weakness Psych thought process normal, cooperative and affect normal Appearance: appropriate Assessment & Plan Assessment/Plan (1) Acute exacerbation of chronic obstructive pulmonary disease: (2) Acute on chronic respiratory failure with hypoxia and hypercapnia: (3) CO2 narcosis: (4) Metabolic encephalopathy: PLAN: Plan #Acue on chronic hypoxic and hypercapnic respiratory failure due to COPD exacerbation * Breathing treatments of bronchodilators. Titrate oxygen to maintain saturation above 90%. * Wean off BiPAP as tolerated. * patient still on BIPAP and is only weaned off for short periods * IV Solu-Medrol * consult pulmonology * #Acute encephalopathy likely due to hypercapnia as above: Management as above. #Elevated troponin: Troponin trended up slightly to 160. However was likely due to demand ischemia. Troponins were normal. Will monitor. #Benign essential hypertension.: BP meds- metoprolol resumed #Hyperlipidemia: On statin #Heart failure with preserved ejection fraction: Stable #Sick sinus syndrome s/p pacemaker: Stable #Paroxysmal A-fib: On Eliquis. This was held on admission as patient is p.o. Was placed on therapeutic Lovenox in view of Eliquis. #History of DVT: On Eliquis; now on therapeutic Lovenox. #GERD: On PPI DVT prophylaxis: Currently on therapeutic Lovenox Charges/Coding Visit Charges Inpatient E&M: 34504 Subs Hosp L2
[2023-10-04] MEDS: Azithromycin 500 MG in Dextrose 5%-Water (250mL Bag) 250 ML 250 MG IV (21:34)
[2023-10-04] MEDS: Ceftriaxone 1 GM/50 ML BAG IV (21:41)
[2023-10-04] MEDS: Gabapentin 300 MG Capsule PO (21:49)
[2023-10-04] MEDS: AcetaZOLAMIDE 250 MG Tablet PO (21:49)
[2023-10-05] VITALS (12 sets, daily range): BP systolic 110–200; BP diastolic 76–87; PULSE 60; RESP 14–24; TEMP 36.6–37.1; O2SAT 95–100; BMI 31.4
[2023-10-05 07:32] LABS: Absolute Neutrophil Count 8.2 X10^3/uL (2.0-7.7); Hematocrit 30.9 % (37-47); Hemoglobin 8.5 g/dL (12.0-15.0); Lymphocyte % 4.5 % (19-41); Mean Corp Hgb Conc 27.5 g/dL (32-36); Mean Corpuscular Hgb 24.4 pg (27.0-32.0); Mean Corpuscular Volume 88.8 fL (81-99); Mean Platelet Vol. 12.8 fl (6.2-12.0); Monocyte# 0.26 X10^3/uL; Monocyte% 2.9 % (0-10); NRBC Flagged by Analyzer 0 % (0-5); Neutrophil % 91.9 % (47-70); POSITIVE DIFFERENTIAL YES; Platelet Count 178 K/mm3 (150-450); RBC Distribution Width SD 61.3 fl (35.1-43.9); Red Blood Count 3.48 M/mm3 (4.2-5.4); White Blood Count 8.9 K/mm3 (4.4-11.0)
[2023-10-05] MEDS: Ipratropium/Albuterol Sulfate 3 ML AMPUL.NEB INHALATION ×5 (07:32→23:00)
[2023-10-05 08:12] LABS: Anion Gap 4 (5-15); BUN 28 mg/dL (7-18); BUN/Creat Ratio 47.2 RATIO (10-20); Calcium,Total 8.7 mg/dL (8.5-10.1); Chloride 108 mmol/L (98-107); Creatinine, Serum 0.59 mg/dL (0.55-1.02); EST Glomerular Filtration Rate 104 mL/min (>60); Est Glom Filt Rate - Afr Amer 126 mL/min (>60); Estimated Creatinine Clearance 63.82 ml/min; Glucose 131 mg/dL (74-106); Potassium 4.1 mmol/L (3.5-5.1); Sodium Level 144 mmol/L (136-145)
[2023-10-05] MEDS: Metoprolol(XL)Succ 25 MG Tablet PO (08:39)
[2023-10-05] MEDS: Citalopram 20 MG Tablet PO (08:39)
[2023-10-05] MEDS: Clopidogrel Bisulfate 75 MG Tablet PO (08:40)
[2023-10-05] MEDS: Cyanocobalamin 500 MCG Tablet PO (08:40)
[2023-10-05] MEDS: MethylPREDNISolone 125 MG/2 ML Vial 60 MG IV ×2 (08:40→20:42)
[2023-10-05] MEDS: Aspirin E.C. 81 MG Tablet PO (08:40)
[2023-10-05] MEDS: Enoxaparin 100 MG/ML Syringe 90 MG SC (08:40)
[2023-10-05] MEDS: Calcium (Elemental) 500 MG Tablet PO (08:41)
[2023-10-05] MEDS: Cholecalciferol (VIT D3) 25 MCG TABLET (1,000 UNITS) 50 MCG PO (08:41)
[2023-10-05] MEDS: AcetaZOLAMIDE 250 MG Tablet PO ×2 (08:41→20:42)
[2023-10-05] MEDS: LORazepam 0.5 MG Tablet PO ×2 (08:44→20:42)
[2023-10-05] MEDS: Pantoprazole Sodium 40 MG in 0.9% Normal Saline (100mL MB+) 100 ML 330 MG IV (08:45)
--- NOTE | 2023-10-05 14:48 | PN_ITS ---
Subjective Subjective Patient seen and examined. She keeps complaining that she feels very short of breath but she is only on 2 L of oxygen. She keeps asking for the BiPAP during the day even though she is saturating very well on 2 L of oxygen. Patient states she feels like she cannot do without the BiPAP. She denies any cough, chest pain, palpitations, dizziness, nausea vomiting or any other symptoms. Review of systems otherwise negative. Objective Data Objective Data Vital Signs: Vital Signs Temp Pulse Resp BP Pulse Ox O2 Del Method O2 Flow Rate 98.6 F 60 24 H 110/87 H 97 Nasal Cannula 1 10/05/23 08:37 10/05/23 11:38 10/05/23 11:38 10/05/23 08:39 10/05/23 11:38 10/05/23 08:37 10/05/23 09:18 FiO2 25 10/05/23 11:38 Oxygen Flow Rate (L/min) 1 Oxygen Delivery Method Nasal Cannula Weight: 194 lb 10.691 oz Body Mass Index (BMI) 31.4 Intake & Output: Intake and Output for Last 24 Hours 10/03/23 10/04/23 10/05/23 23:59 23:59 23:59 Intake Total 2017.67 / 915 / 915 360 / 360 Output Total 825 / 825 600 / 600 250 / 250 Balance 1193.67 / 1193.67 315 / 315 110 / 110 Lab / Micro Data 10/05/23 07:07 10/05/23 07:07 Labs: Laboratory Results - last 24 hr 10/05/23 07:07: WBC 8.9, RBC 3.48 L, Hgb 8.5 L, Hct 30.9 L, MCV 88.8, MCH 24.4 L , MCHC 27.5 L, RDW Std Deviation 61.3 H, RDW Coeff of Laura 19.0 H, Plt Count 178, MPV 12.8 H, Immature Gran % (Auto) 0.700, Neut % (Auto) 91.9 H, Lymph % (Auto) 4.5 L, [place] % (Auto) 2.9, Eos % (Auto) 0.0, Baso % (Auto) 0.0, Absolute Neuts (auto) 8.2 H, Absolute Lymphs (auto) 0.40 L, Nucleated RBC % 0, Sodium 144, Potassium 4.1, Chloride 108 H, Carbon Dioxide 32.0, Anion Gap 4 L, BUN 28 H, Creatinine 0.59, Estim Creat Clear Calc 63.82, Est GFR (MDRD) Af Amer 126, Est GFR (MDRD) Non-Af 104, BUN/Creatinine Ratio 47.2 H, Glucose 131 H, Calcium 8.7 Micro: Microbiology 10/01/23 22:15 Blood Culture (Wb) - Anticubital Right Blood Culture - Preliminary No growth in 48 hours. 10/01/23 22:10 Blood Culture (Wb) - Anticubital Left Blood Culture - Preliminary No growth in 48 hours. 10/01/23 22:24 Mucosa - Nose SARS-CoV-2, Influenza & RSV (PCR) - Final Physical Exam Const alert, oriented x3, no apparent distress and well nourished Constitutional Narrative: frail, anxious General Appearance: cooperative HEENT normocephalic, head/scalp atraumatic and moist oral mucous membranes Eyes PERRL and EOMs intact bilaterally Neck no lymphadenopathy and supple Lymph Lymphatic: no lymphadenopathy noted and no lymphedema noted Resp Resp Narrative: diminished breath sounds bibasally, mild wheezing, no crackles. Lung still sound very tight. On 2L of oxygen by nasal canula Cardio regular rate, regular rhythm, S1 normal heart sound, S2 normal heart sound and no murmurs GI normal to inspection, nondistended, normoactive bowel sounds, soft to palpation, non-tender and non-distended Extremity General Extremity: no tenderness to palpation of joints or extremities Skin General Skin Exam: no breakdown Neuro CN's II-XII intact bilaterally, no focal motor deficits, no sensory deficits noted and deep tendon reflexes 2+ bilaterally Motor Exam: strength 5/5 throughout and general weakness Psych thought process normal, cooperative and affect normal Appearance: appropriate Assessment & Plan Assessment/Plan (1) Acute exacerbation of chronic obstructive pulmonary disease: (2) Acute on chronic respiratory failure with hypoxia and hypercapnia: (3) CO2 narcosis: (4) Metabolic encephalopathy: PLAN: Plan #Acute on chronic hypoxic and hypercapnic respiratory failure due to COPD exac erbation * Breathing treatments of bronchodilators. Titrate oxygen to maintain saturation above 90%. * Wean off BiPAP as tolerated. * On 2 L of oxygen this morning. * IV Solu-Medrol * consult pulmonology * On IV ceftriaxone and azithromycin. #Acute encephalopathy likely due to hypercapnia as above: Resolved #Elevated troponin: Troponin trended up slightly to 160. However was likely due to demand ischemia. Troponins upon repeat were normal. Will monitor. #Benign essential hypertension.: On p.o. metoprolol. #Hyperlipidemia: On statin #Heart failure with preserved ejection fraction: Stable. Not in exacerbation. #Sick sinus syndrome s/p pacemaker: Stable #Paroxysmal A-fib: On Eliquis. Will resume Eliquis #History of DVT: On Eliquis #GERD: On PPI DVT prophylaxis: Resume Eliquis today Disposition: For likely discharge tomorrow. Charges/Coding Visit Charges Inpatient E&M: 49493 Subs Hosp L2
--- NOTE | 2023-10-05 16:30 | CHAPLAIN ---
Type of Pastoral Visit _x__ Initial Visit ___ Follow-up Visit ___ On-call Visit ___ General Patient Visit ___ Spiritual Assessment ___ Family Conference ___ Bereavement ___ Rapid Response ___ Code Blue ___ Other (describe below) Pastoral Care Referral From _x__ Patient ___ Family ___ Nurse ___ Physician ___ Blueberry Grower ___ Willower ___ Other (describe below) Sacrament/Intervention ___ Active listening ___ Anointing ___ Denominational ___ Bereavement ___ Communion ___ Teresa exploration ___ ___ Life review _x__ Prayer ___ Reconciliation ___ Sacrament of Sick _x__ Supportive presence ___ Wedding ___ Other (describe below) Pastoral Comments patient is on the bi-pap and sleeping at time of attempted visit; said a silent prayer and wrote a note of support to the patient; will hopefully have another chance to visit patient
[2023-10-05] MEDS: Azithromycin 500 MG in Dextrose 5%-Water (250mL Bag) 250 ML 250 MG IV (20:42)
[2023-10-05] MEDS: Ceftriaxone 1 GM/50 ML BAG IV (20:42)
[2023-10-05] MEDS: Gabapentin 300 MG Capsule PO (20:42)
[2023-10-05] MEDS: APIXABAN 5 MG TABLET PO (20:42)
[2023-10-06] VITALS (10 sets, daily range): BP systolic 141–153; BP diastolic 67–82; PULSE 59–61; RESP 14–33; TEMP 36.4–36.7; O2SAT 96–100
[2023-10-06 07:13] LABS: Absolute Lymphocyte Count 0.54 X10^3/uL (0.83-4.51); Absolute Neutrophil Count 7.1 X10^3/uL (2.0-7.7); Hematocrit 32.6 % (37-47); Lymphocyte # 0.54 X10^3/ul (0.83-4.51); Lymphocyte % 6.8 % (19-41); Mean Corp Hgb Conc 27.6 g/dL (32-36); Mean Corpuscular Hgb 24.7 pg (27.0-32.0); Mean Corpuscular Volume 89.6 fL (81-99); Mean Platelet Vol. 12.4 fl (6.2-12.0); Monocyte# 0.21 X10^3/uL; Monocyte% 2.7 % (0-10); NRBC Flagged by Analyzer 0 % (0-5); Neutrophil # 7.13 X10^3/uL (2.7-7.7); Neutrophil % 90.2 % (47-70); POSITIVE DIFFERENTIAL YES; Platelet Count 172 K/mm3 (150-450); RBC Distribution Width CV 18.6 % (11.6-14.6); RBC Distribution Width SD 61.1 fl (35.1-43.9); Red Blood Count 3.64 M/mm3 (4.2-5.4); White Blood Count 7.9 K/mm3 (4.4-11.0)
[2023-10-06] MEDS: Ipratropium/Albuterol Sulfate 3 ML AMPUL.NEB INHALATION ×3 (07:35→15:30)
[2023-10-06 07:37] LABS: Anion Gap 4 (5-15); BUN 31 mg/dL (7-18); BUN/Creat Ratio 52.5 RATIO (10-20); Calcium,Total 8.8 mg/dL (8.5-10.1); Chloride 110 mmol/L (98-107); Creatinine, Serum 0.59 mg/dL (0.55-1.02); EST Glomerular Filtration Rate 104 mL/min (>60); Est Glom Filt Rate - Afr Amer 126 mL/min (>60); Estimated Creatinine Clearance 63.82 ml/min; Glucose 125 mg/dL (74-106); Potassium 3.9 mmol/L (3.5-5.1); Sodium Level 143 mmol/L (136-145)
[2023-10-06] MEDS: Acetaminophen 325 MG Tablet 650 MG PO (08:36)
[2023-10-06] MEDS: APIXABAN 5 MG TABLET PO (08:37)
[2023-10-06] MEDS: Cholecalciferol (VIT D3) 25 MCG TABLET (1,000 UNITS) 50 MCG PO (08:38)
[2023-10-06] MEDS: Citalopram 20 MG Tablet PO (08:38)
[2023-10-06] MEDS: Aspirin E.C. 81 MG Tablet PO (08:39)
[2023-10-06] MEDS: Clopidogrel Bisulfate 75 MG Tablet PO (08:39)
[2023-10-06] MEDS: Calcium (Elemental) 500 MG Tablet PO (08:39)
[2023-10-06] MEDS: Cyanocobalamin 500 MCG Tablet PO (08:39)
[2023-10-06] MEDS: AcetaZOLAMIDE 250 MG Tablet PO (08:40)
[2023-10-06] MEDS: LORazepam 0.5 MG Tablet PO (08:44)
[2023-10-06] MEDS: Pantoprazole Sodium 40 MG in 0.9% Normal Saline (100mL MB+) 100 ML 330 MG IV (08:44)
[2023-10-06] MEDS: MethylPREDNISolone 125 MG/2 ML Vial 60 MG IV (08:48)
[2023-10-06] MEDS: Bisacodyl 10 MG Suppository RC (09:47)
--- NOTE | 2023-10-06 09:52 | CASEMGMT ---
YAO notified Avenue that patient will return today. Await orders. Regla Rosenberg POWER PROJECT MANAGER CARMITA
--- NOTE | 2023-10-06 11:23 | CON.PCM.CC_ITS ---
Assessment & Plan Assessment/Plan (1) Acute exacerbation of chronic obstructive pulmonary disease: PLAN: Plan RECOMMENDATIONS: 1. Continue supplemental oxygen to maintain saturations at or above 90%. 2. PAP therapy with naps and nightly. 3. Continue antibiotics, bronchodilators and steroids. Recommend prolonged steroid taper at discharge. 4. Recommend outpatient referral to palliative care medicine. 5. Please have the patient follow-up in the pulmonary medicine clinic within 2 weeks of discharge home. 6. Will sign off at this time. Please call with any additional questions. IMPRESSIONS: 1. Acute on chronic combined respiratory failure secondary to COPD exacerbation The patient has a known history of end-stage COPD, chronic hypoxemic respiratory failure and frequent COPD exacerbations. She is followed by Dr. Mcnair in the pulmonary medicine clinic and was hospitalized as well within the last month for a COPD exacerbation. Overall, clinically, the patient just appears to be decompensating in general. She was already on maximum COPD therapy. I agree with the current treatment regimen including antibiotics, bronchodilators and steroids. In general, I feel that the patient would benefit from referral to palliative care medicine on an outpatient basis. This was already discussed at one of her previous office visits and the patient was precontemplative at that time. She does appear to be at her baseline from a respiratory perspective and can likely be discharged home. I would recommend that she follow-up in the pulmonary medicine clinic after discharge. She would benefit from a slow, gradual prednisone taper at discharge. 2. History of heart failure with preserved ejection fraction/paroxysmal atrial fibrillation/history of DVT/GERD/obesity Complicates care, management, recovery and prognosis. Continue home medications as indicated. This note was generated with [employer] dictation software. It may contain incorrect words, spelling, and punctuation that were not noted in checking the note before signing. HPI Consult Data Date of Consult: 10/06/23 HPI Narrative Reason for Consultation: COPD exacerbation HPI Narrative: The patient is a 77-year-old female, with a history as outlined below, who presented to the emergency department on October 01 with progressive shortness of breath. The patient has a known history of end-stage COPD, chronic hypoxemic respiratory failure, obstructive sleep apnea, heart failure with preserved ejection fraction and pulmonary hypertension. She is followed by Dr. Mcnair in the pulmonary medicine clinic. She has a history of frequent exacerbations, but is on maximum therapy from a COPD perspective. The patient reported that she typically utilizes 3 L/min of supplemental oxygen throughout the day. The patient was hospitalized within the last month secondary to metabolic encephalopathy due to cute on chronic hypercapnic respiratory failure related to a COPD exacerbation. The patient's hospital course has included treatment for a COPD exacerbation with azithromycin, ceftriaxone, scheduled bronchodilators and IV steroids. The patient was also maintained on noninvasive positive pressure ventilatory support, with subsequent improvement in her respiratory status. The patient has been maintaining appropriate oxygen saturations on 2 L/min via nasal cannula. I once again explained to the patient today that she is on maximum therapy from a COPD standpoint and would benefit from referral to palliative care medicine on an outpatient basis. [facility] Medical History (Updated 10/02/23 @ 03:[address] Freddy Mooney DO) Abscess of left leg Anemia Arthritis Atrial fibrillation AV block, complete BiPAP (biphasic positive airway pressure) dependence Cardiology follow-up encounter Chronic anticoagulation Chronic anticoagulation CO2 narcosis COPD (chronic obstructive pulmonary disease) Diabetes Difficulty swallowing DVT (deep venous thrombosis) Dyslipidemia Elevated troponin Essential hypertension Essential hypertension Former smoker Former tobacco use Heart failure with preserved ejection fraction Hematoma Hematoma of left lower leg History of atrial fibrillation History of CHF (congestive heart failure) History of DVT (deep vein thrombosis) History of echocardiogram History of edema History of irregular heartbeat History of pacemaker History of pulmonary embolism History of pulmonary embolus (PE) History of recurrent deep vein thrombosis (DVT) History of steroid therapy Injury of back Low iron Non-smoker On home oxygen therapy Post-menopausal Presence of permanent cardiac pacemaker (~10/12/20) Pulmonary embolism Pulmonary HTN Shortness of breath on exertion Skin necrosis Sleep apnea Tachycardia-bradycardia syndrome Uses wheelchair Venous insufficiency Walker as ambulation aid Wears glasses Wound abscess Medical History unable to obtain Home Medications Lactobacillus acidophilus 1 cap PO DAILY [facility] 08/20/20 [History Last Taken 09/01/20 10:42] acetazolamide 250 mg tablet 250 mg PO BID EDEMA 08/20/20 [History Last Taken 09/01/20 08:00] albuterol sulfate 2.5 mg/3 mL (0.083 %) solution for nebulization 2.5 mg (3 mL) inhalation Q2H PRN PRN Shortness of Breath/Wheezing 09/05/20 [Rx Last Taken Unknown] docusate sodium 100 mg capsule 100 mg PO BID 09/05/20 [Rx Last Taken Unknown] ondansetron HCl 4 mg tablet 4 mg PO Q4H PRN Nausea 07/14/21 [History Last Taken Unknown] vit C 250 mg-vit E 90 mg-zinc 40 mg-copper 1 [id number] capsule (PreserVision AREDS-2) 1 tab PO BID 07/14/21 [History Last Taken Unknown] furosemide 20 mg tablet 20 mg PO DAILY 01/14/22 [History Last Taken Unknown] acetaminophen 500 mg capsule 1,000 mg PO Q8H PRN Pain 04/14/22 [History Last Taken Unknown] albuterol sulfate 90 mcg/actuation aerosol inhaler (Ventolin HFA) 2 puff inhalation Q4H PRN PRN Wheezing ##1 04/14/22 [Rx Last Taken Unknown] ipratropium 0.5 mg-albuterol 3 mg (2.5 mg base)/3 mL nebulization soln 3 ml inhalation Q4H PRN Wheezing 08/20/22 [History Last Taken Unknown] budesonide 1 mg/2 mL suspension for nebulization 1 mg (2 mL) inhalation BID #60 mL 10/21/22 [Rx Last Taken Unknown] calcium carbonate 600 mg calcium (1,500 mg) tablet 600 mg PO DAILY 12/31/22 [History Last Taken Unknown] cholecalciferol (vitamin D3) 50 mcg (2,000 unit) tablet (Vitamin D3) 50 mcg PO DAILY 12/31/22 [History Last Taken Unknown] citalopram 20 mg tablet 20 mg PO DAILY 12/31/22 [History Last Taken Unknown] cyanocobalamin (vitamin B-12) 500 mcg tablet 500 mcg PO DAILY 12/31/22 [History Last Taken Unknown] dextromethorphan HBr 10 mg/5 mL oral liquid 10 mg PO Q6H PRN Cough 12/31/22 [Hi story Last Taken Unknown] ipratropium 0.5 mg-albuterol 3 mg (2.5 mg base)/3 mL nebulization soln 3 ml inhalation TID 12/31/22 [History Last Taken Unknown] phenylephrine-shark liver oil-mineral oil-petrolatum rectal ointment (Hemorrhoidal ointment) 1 applic TN Q6H PRN hemorrhoids 12/31/22 [History Last Taken Unknown] dextrose 40 % oral gel 15 g PO Q15M PRN hypoglycemia 02/08/23 [History Last Taken Unknown] glucagon 1 mg solution for injection (Glucagon Emergency Kit) 1 mg subcut Q20M PRN hypoglycem 02/08/23 [History Last Taken Unknown] gabapentin 300 mg capsule 300 mg PO QHS 03/20/23 [History Last Taken Unknown] azithromycin 250 mg tablet 250 mg PO QMWF #36 tabs 04/19/23 [Rx Last Taken Unknown] prednisone 10 mg tablet 10 mg PO DAILY #90 tabs 04/19/23 [Rx Last Taken Unknown] lorazepam 0.5 mg tablet 0.5 mg PO Q12H PRN ANXIETY 09/11/23 [History Last Taken Unknown] metoprolol succinate 25 mg tablet,extended release 24 hr 25 mg PO DAILY #90 tabs 09/20/23 [Rx Last Taken Unknown] potassium chloride 20 mEq tablet,extended release 40 meq PO DAILY 09/20/23 [History Last Taken Unknown] apixaban 5 mg tablet (Eliquis) 5 mg PO BID 10/01/23 [History Last Taken Unknown] bisacodyl 10 mg rectal suppository 10 mg TN DAILY PRN constipation 10/01/23 [History Last Taken Unknown] lorazepam 0.5 mg tablet (Ativan) 0.5 mg PO BID 10/01/23 [History Last Taken Unknown] magnesium hydroxide 400 mg/5 mL oral suspension (Milk of Magnesia) 30 ml PO DAILY PRN constipation 10/01/23 [History Last Taken Unknown] mineral oil (Fleet Mineral Oil enema) 118 ml TN DAILY PRN constipation 10/01/23 [History Last Taken Unknown] pantoprazole 20 mg tablet,delayed release 20 mg PO DAILY 10/01/23 [History Last Taken Unknown] polyethylene glycol 3350 17 gram/dose oral powder (Miralax) 17 g PO DAILY PRN constipation 10/01/23 [History Last Taken Unknown] Allergy/AdvReac Type Severity Reaction Status Date / Time amlodipine besylate AdvReac ANKLE AND Verified 09/11/23 23:18 [From [facility]] LEG EDEMA codeine AdvReac MENTAL Verified 09/11/23 23:18 STATUS CHANGE lisinopril AdvReac COUGH Verified 09/11/23 23:18 Family History Sister Heart disease Family History unable to obtain Surgical History History of cholecystectomy History of total hysterectomy Hx of atrioventricular node ablation tailbone surgery Surgical History unable to obtain Social History household members: none housing: jail Smoking Status: Former smoker how long ago did patient quit smoking: Approxiomately 2003 alcohol intake: never substance use type: does not use caffeine: No ROS ROS Narrative 10 systems were reviewed with pertinent positives as noted in the HPI above. Physical Exam Const alert and no apparent distress Constitutional Narrative: Obese. Son is present at the bedside. Currently receiving an aerosol treatment. General Appearance: cooperative HEENT normocephalic and head/scalp atraumatic Eyes PERRL, EOMs intact bilaterally and conjunctivae normal Neck supple General: trachea midline Chest inspection of chest normal Resp normal respiratory effort Auscultation: rales and diminished lung sounds Cardio regular rate and regular rhythm GI normal to inspection, nondistended, normoactive bowel sounds Extremity no clubbing, cyanosis or edema Skin no rashes or lesions noted Neuro CN's II-XII intact bilaterally, moves all extremities and no focal motor deficits Psych cooperative and affect normal Lab / Micro Data 10/06/23 06:35 10/06/23 06:35 Labs: Laboratory Results - last 24 hr 10/06/23 06:35: WBC 7.9, RBC 3.64 L, Hgb 9.0 L, Hct 32.6 L, MCV 89.6, MCH 24.7 L , MCHC 27.6 L, RDW Std Deviation 61.1 H, RDW Coeff of Laura 18.6 H, Plt Count 172, MPV 12.4 H, Immature Gran % (Auto) 0.300, Neut % (Auto) 90.2 H, Lymph % (Auto) 6.8 L, Sac % (Auto) 2.7, Eos % (Auto) 0.0, Baso % (Auto) 0.0, Absolute Neuts (auto) 7.1, Absolute Lymphs (auto) 0.54 L, Nucleated RBC % 0, Sodium 143, Potassium 3.9, Chloride 110 H, Carbon Dioxide 29.0, Anion Gap 4 L, BUN 31 H, Creatinine 0.59, Estim Creat Clear Calc 63.82, Est GFR (MDRD) Af Amer 126, Est GFR (MDRD) Non-Af 104, BUN/Creatinine Ratio 52.5 H, Glucose 125 H, Calcium 8.8 Charges/Coding Visit Charges Inpatient E&M: 45967 Init Hosp L2
--- NOTE | 2023-10-06 12:00 | TREXTCAR_ITS ---
Diet Diet Order/Speech Therapy: 10/02/23 15:18 Diet: Cardiac: Calorie-Controlled Food consistency:: Regular Liquid Consistency:: Regular/Thin Dietary Modifications:: Consistent Carbohydrate Sodium Restricted Type of Dietary Supplement:: Glucerna Shake Diet Comments: 120mL glucerna shake TID w/ meals How many daily calories?: 1800 calorie Routine Orders/Code Status Enema Type: Fleetz Enema Frequency: Daily PRN Suppository Type: Dulcolax 10mg Suppository Frequency: Daily PRN O2 Frequency: PRN Keep PO Greater than or Equal to (%): 90 Therapies Weight Bearing: Weight bearing as tolerated Physical Therapy: Eval and Treat Occupational Therapy: Eval and Treat Problem/Diagnosis (1) Acute exacerbation of chronic obstructive pulmonary disease: Status: Chronic Code(s): J44.1 - Chronic obstructive pulmonary disease with (acute) exacerbation Plan #Acute on chronic hypoxic and hypercapnic respiratory failure due to COPD exacerbation * Breathing treatments of bronchodilators. Titrate oxygen to maintain saturation above 90%. * Wean off BiPAP as tolerated. * On 2 L of oxygen this morning. * IV Solu-Medrol * consult pulmonology * On IV ceftriaxone and azithromycin. #Acute encephalopathy likely due to hypercapnia as above: Resolved #Elevated troponin: Troponin trended up slightly to 160. However was likely due to demand ischemia. Troponins upon repeat were normal. Will monitor. #Benign essential hypertension.: On p.o. metoprolol. #Hyperlipidemia: On statin #Heart failure with preserved ejection fraction: Stable. Not in exacerbation. #Sick sinus syndrome s/p pacemaker: Stable #Paroxysmal A-fib: On Eliquis. Will resume Eliquis #History of DVT: On Eliquis #GERD: On PPI DVT prophylaxis: Resume Eliquis today Disposition: For likely discharge tomorrow. Allergies/Procedures Done in Hospital Allergies amlodipine besylate [From [facility]] Adverse Reaction (Verified 09/11/23 23:18) ANKLE AND LEG EDEMA RESOLVED OFF MED-PER PCP PAPERWORK codeine Adverse Reaction (Verified 09/11/23 23:18) MENTAL STATUS CHANGE lisinopril Adverse Reaction (Verified 09/11/23 23:18) COUGH Procedures: None Type of Care/Length of Stay Estimated LOS: More Than 30 Days Type of Care Needed: Intermediate Rehab Potential: Fair Prognosis: Fair Additional Orders/Day of Discharge Day of Discharge: 10/06/23 Dietary and Speech Recommendations Dietitian Recommendations/Changes: Will adjust diet to 1800 calorie/consistent carbohydrate; cardiac. Will offer 120mL glucerna shake TID w/ meals until PO established with meals. Liberalize diet and increase ONS as needed to encourage adequate PO at meals. Discharge Plan Admission Admit Date/Time: 10/02/23 01:06 Primary Reason for Your Visit: COPD exacerbation Attending Provider: Ryann Lema Primary Care Provider: Tor Lucia Consulting Providers: Freddy Mooney Instructions Patient Instructions: Discharge Instructions: COPD Discharge Orders/Prescriptions Prescriptions: New prednisone 10 mg tablets,dose pack See Taper PO DAILY Qty: 48 0RF Taper: Prednisone Taper 60 mg WITH BREAKFAST for 3 Days and 0 Hour 50 mg WITH BREAKFAST for 3 Days and 0 Hour 40 mg WITH BREAKFAST for 3 Days and 0 Hour 30 mg WITH BREAKFAST for 3 Days and 0 Hour 20 mg WITH BREAKFAST for 3 Days and 0 Hour 10 mg WITH BREAKFAST for 3 Days and 0 Hour Continued furosemide 20 mg tablet 20 mg PO DAILY Hold Instructions: Restart on Monday if renal function is normal on BMP budesonide 1 mg/2 mL suspension for nebulization 1 mg inhalation BID Qty: 60 6RF Glucagon Emergency Kit (human) 1 mg recon soln 1 mg subcut Q20M PRN (Reason: hypoglycem) Rx Instructions: until target blood sugar attained dextrose 40 % gel 15 g PO Q15M PRN (Reason: hypoglycemia) Rx Instructions: until symptoms of low blood sugar are controlled azithromycin 250 mg tablet 250 mg PO QMWF Qty: 36 0RF Rx Instructions: Mon, and monday prednisone 10 mg tablet 10 mg PO DAILY Qty: 90 3RF Hold Instructions: Hold until prednisone taper is completed and then reinitiate acetazolamide 250 MG tablet 250 mg PO BID Hold Instructions: Hold until BMP is done on Monday and reinitiate if renal function is stable Lactobacillus acidophilus 1 EACH capsule 1 cap PO DAILY albuterol sulfate 2.5 MG/3 ML solution for nebulization 2.5 mg INHALATION Q2H PRN PRN (Reason: Shortness of Breath/Wheezing) 0RF docusate sodium 100 MG capsule 100 mg PO BID 0RF ondansetron HCl 4 mg Tablet 4 mg PO Q4H PRN (Reason: Nausea) PreserVision AREDS-2 250-90-40-1 mg Capsule 1 tab PO BID acetaminophen 500 mg Capsule 1,000 mg PO Q8H PRN (Reason: Pain) albuterol sulfate [Ventolin HFA] 90 mcg/actuation HFA aerosol inhaler 2 puff inhalation Q4H PRN PRN (Reason: Wheezing) Qty: 1 0RF ipratropium-albuterol 0.5 mg-3 mg(2.5 mg base)/3 mL Solution For Nebulization 3 ml INHALATION Q4H PRN (Reason: Wheezing) ipratropium-albuterol 0.5 mg-3 mg(2.5 mg base)/3 mL Solution For Nebulization 3 ml INHALATION TID dextromethorphan HBr 10 mg/5 mL Liquid 10 mg PO Q6H PRN (Reason: Cough) calcium carbonate 600 mg calcium (1,500 mg) Tablet 600 mg PO DAILY citalopram 20 mg tablet 20 mg PO DAILY cyanocobalamin (vitamin B-12) 500 mcg Tablet 500 mcg PO DAILY Hemorrhoidal Ointment 1 applic AK Q6H PRN (Reason: hemorrhoids) cholecalciferol (vitamin D3) [Vitamin D3] 50 mcg (2,000 unit) Tablet 50 mcg PO DAILY gabapentin 300 mg capsule 300 mg PO QHS bisacodyl 10 mg suppository 10 mg AK DAILY PRN (Reason: constipation) Eliquis 5 mg tablet 5 mg PO BID mineral oil [Fleet Mineral Oil] Enema 118 ml AK DAILY PRN (Reason: constipation) Rx Instructions: discard any unused portion lorazepam [Ativan] 0.5 mg tablet 0.5 mg PO BID magnesium hydroxide [Milk of Magnesia] 400 mg/5 mL suspension 30 ml PO DAILY PRN (Reason: constipation) polyethylene glycol 3350 [Miralax] 17 gram/dose powder 17 g PO DAILY PRN (Reason: constipation) pantoprazole 20 mg tablet,delayed release (DR/EC) 20 mg PO DAILY lorazepam 0.5 mg tablet 0.5 mg PO Q12H PRN (Reason: ANXIETY) Patient Comments: For 14 days order date was 09/18/23 metoprolol succinate 25 mg tablet extended release 24 hr 25 mg PO DAILY Qty: 90 3RF potassium chloride 20 mEq tablet extended release 40 meq PO DAILY Referrals / Follow Up: Jin Cates DO [Med Staff - Active Staff] - Within 2 Weeks Tor Lucia MD [Primary Care Provider] - Within 1 Week Disposition Disposition (needs filled in before D/C Order can be placed): [facility] Facility Charges/Coding Visit Charges Inpatient E&M: 80380 Disch Hosp >30min
--- NOTE | 2023-10-06 12:01 | DS.PCM_ITS ---
Providers Date of Admission: 10/02/23 Date of Discharge: 10/06/23 Primary Care Physician: Dr. Tor Lucia MD Consultations 10/06/23 11:03 Consult: Bread Dumper / Pulmonary Medicine Routine Consulting Provider: Intensivists/Pulmonary Med Reason for Consult: acute COPD exacerbation. EMERGENT Consult: No MD Notified: Yes Date Notified: 10/06/23 Time Notified: 11:03 Method of Notification: Text Reason For Visit: AE COPD WITH ACUTE RESP FAILURE REQ BIPAP Diagnosis Discharge Diagnosis (1) Acute exacerbation of chronic obstructive pulmonary disease: Status: Chronic Code(s): J44.1 - Chronic obstructive pulmonary disease with (acute) exacerbation Plan #Acute on chronic hypoxic and hypercapnic respiratory failure due to COPD exacerbation * Breathing treatments of bronchodilators. Titrate oxygen to maintain saturation above 90%. * Wean off BiPAP as tolerated. * On 2 L of oxygen this morning. * IV Solu-Medrol * consult pulmonology * On IV ceftriaxone and azithromycin. #Acute encephalopathy likely due to hypercapnia as above: Resolved #Elevated troponin: Troponin trended up slightly to 160. However was likely due to demand ischemia. Troponins upon repeat were normal. Will monitor. #Benign essential hypertension.: On p.o. metoprolol. #Hyperlipidemia: On statin #Heart failure with preserved ejection fraction: Stable. Not in exacerbation. #Sick sinus syndrome s/p pacemaker: Stable #Paroxysmal A-fib: On Eliquis. Will resume Eliquis #History of DVT: On Eliquis #GERD: On PPI DVT prophylaxis: Resume Eliquis today Disposition: For likely discharge tomorrow. Medications at Discharge Home Medications Lactobacillus acidophilus 1 cap PO DAILY [facility] 08/20/20 acetazolamide 250 mg tablet 250 mg PO BID EDEMA 08/20/20 albuterol sulfate 2.5 mg/3 mL (0.083 %) solution for nebulization 2.5 mg (3 mL) inhalation Q2H PRN PRN Shortness of Breath/Wheezing 09/05/20 docusate sodium 100 mg capsule 100 mg PO BID 09/05/20 ondansetron HCl 4 mg tablet 4 mg PO Q4H PRN Nausea 07/14/21 vit C 250 mg-vit E 90 mg-zinc 40 mg-copper 1 [id number]-[id number] capsule (PreserVision AREDS-2) 1 tab PO BID 07/14/21 furosemide 20 mg tablet 20 mg PO DAILY 01/14/22 acetaminophen 500 mg capsule 1,000 mg PO Q8H PRN Pain 04/14/22 albuterol sulfate 90 mcg/actuation aerosol inhaler (Ventolin HFA) 2 puff inhalation Q4H PRN PRN Wheezing ##1 04/14/22 ipratropium 0.5 mg-albuterol 3 mg (2.5 mg base)/3 mL nebulization soln 3 ml inhalation Q4H PRN Wheezing 08/20/22 budesonide 1 mg/2 mL suspension for nebulization 1 mg (2 mL) inhalation BID #60 mL 10/21/22 calcium carbonate 600 mg calcium (1,500 mg) tablet 600 mg PO DAILY 12/31/22 cholecalciferol (vitamin D3) 50 mcg (2,000 unit) tablet (Vitamin D3) 50 mcg PO DAILY 12/31/22 citalopram 20 mg tablet 20 mg PO DAILY 12/31/22 cyanocobalamin (vitamin B-12) 500 mcg tablet 500 mcg PO DAILY 12/31/22 dextromethorphan HBr 10 mg/5 mL oral liquid 10 mg PO Q6H PRN Cough 12/31/22 ipratropium 0.5 mg-albuterol 3 mg (2.5 mg base)/3 mL nebulization soln 3 ml inhalation TID 12/31/22 phenylephrine-shark liver oil-mineral oil-petrolatum rectal ointment (Hemorrhoidal ointment) 1 applic UT Q6H PRN hemorrhoids 12/31/22 dextrose 40 % oral gel 15 g PO Q15M PRN hypoglycemia 02/08/23 glucagon 1 mg solution for injection (Glucagon Emergency Kit) 1 mg subcut Q20M PRN hypoglycem 02/08/23 gabapentin 300 mg capsule 300 mg PO QHS 03/20/23 azithromycin 250 mg tablet 250 mg PO QMWF #36 tabs 04/19/23 prednisone 10 mg tablet 10 mg PO DAILY #90 tabs 04/19/23 lorazepam 0.5 mg tablet 0.5 mg PO Q12H PRN ANXIETY 09/11/23 metoprolol succinate 25 mg tablet,extended release 24 hr 25 mg PO DAILY #90 tabs 09/20/23 potassium chloride 20 mEq tablet,extended release 40 meq PO DAILY 09/20/23 apixaban 5 mg tablet (Eliquis) 5 mg PO BID 10/01/23 bisacodyl 10 mg rectal suppository 10 mg UT DAILY PRN constipation 10/01/23 lorazepam 0.5 mg tablet (Ativan) 0.5 mg PO BID 10/01/23 magnesium hydroxide 400 mg/5 mL oral suspension (Milk of Magnesia) 30 ml PO DAILY PRN constipation 10/01/23 mineral oil (Fleet Mineral Oil enema) 118 ml UT DAILY PRN constipation 10/01/23 pantoprazole 20 mg tablet,delayed release 20 mg PO DAILY 10/01/23 polyethylene glycol 3350 17 gram/dose oral powder (Miralax) 17 g PO DAILY PRN constipation 10/01/23 prednisone 10 mg tablets in a dose pack See Taper PO DAILY #48 tabs 10/06/23 Hospital Course Operations None Procedures None Summary of Care Provided Minutes Spent on Discharge: 47 Hospital Course: Patient is a 77-year-old female with a past medical history as outlined including chronic respiratory failure due to COPD and heart failure. She was admitted through the ED on 10/02/2023 with a complaint of shortness of breath with altered mental status. She was confused at time of admission so she could not give much of a history. She was admitted and managed for acute exacerbation of COPD and acute encephalopathy likely due to COPD exacerbation. She was placed on BiPAP. She was placed on antibiotics and steroids as well as breathing treatments. Patient's encephalopathy resolved and she was weaned off of BiPAP and placed on oxygen. She only required 2 L of oxygen throughout his stay. Patient however says she did not Feel comfortable with the BiPAP was off and insisted on keeping the BiPAP on even though she really did not need it most of the time. Hospital course was uncomplicated and she was discharged on 10/06/2023. She was discharged on prolonged tapering dose of steroids. 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 Patient seen and examined prior to discharge. She had no active complaints and had an uneventful night. Review of systems otherwise negative. Labs and vitals reviewed. Home medications reviewed and reconciled. Physical Exam Const alert, oriented x3, no apparent distress and well nourished Constitutional Narrative: frail, anxious General Appearance: cooperative and comfortable HEENT normocephalic, head/scalp atraumatic, hearing grossly normal bilaterally and moist oral mucous membranes Mouth: oral and palatal mucosa normal Eyes PERRL and EOMs intact bilaterally Neck no lymphadenopathy and supple Lymph Lymphatic: no lymphadenopathy noted and no lymphedema noted Resp Resp Narrative: diminished breath sounds bibasally, mild wheezing, no crackles. On 2L of oxygen by nasal canula Cardio regular rate, regular rhythm, S1 normal heart sound, S2 normal heart sound and no murmurs GI normal to inspection, nondistended, normoactive bowel sounds, soft to palpation, non-tender and non-distended Extremity no clubbing, cyanosis or edema General Extremity: no tenderness to palpation of joints or extremities Skin no rashes or lesions noted General Skin Exam: no breakdown Neuro oriented x3, CN's II-XII intact bilaterally, moves all extremities, no focal mot or deficits, no sensory deficits noted and deep tendon reflexes 2+ bilaterally Sensorium / Orientation: awake Motor Exam: strength 5/5 throughout and general weakness Psych thought process normal, cooperative and affect normal Appearance: appropriate Weight / BMI Weight Weight: 194 lb 10.691 oz Body Mass Index (BMI) 31.4 ABG / Lab / Microbiology Data 10/06/23 06:35 10/06/23 06:35 Laboratory: Laboratory Results - last 24 hr 10/06/23 06:35: WBC 7.9, RBC 3.64 L, Hgb 9.0 L, Hct 32.6 L, MCV 89.6, MCH 24.7 L , MCHC 27.6 L, RDW Std Deviation 61.1 H, RDW Coeff of Laura 18.6 H, Plt Count 172, MPV 12.4 H, Immature Gran % (Auto) 0.300, Neut % (Auto) 90.2 H, Lymph % (Auto) 6.8 L, Bowman % (Auto) 2.7, Eos % (Auto) 0.0, Baso % (Auto) 0.0, Absolute Neuts (auto) 7.1, Absolute Lymphs (auto) 0.54 L, Nucleated RBC % 0, Sodium 143, Potassium 3.9, Chloride 110 H, Carbon Dioxide 29.0, Anion Gap 4 L, BUN 31 H, Creatinine 0.59, Estim Creat Clear Calc 63.82, Est GFR (MDRD) Af Amer 126, Est GFR (MDRD) Non-Af 104, BUN/Creatinine Ratio 52.5 H, Glucose 125 H, Calcium 8.8 Microbiology: Microbiology 10/01/23 22:15 Blood Culture (Wb) - Anticubital Right Blood Culture - Preliminary No growth in 48 hours. 10/01/23 22:10 Blood Culture (Wb) - Anticubital Left Blood Culture - Preliminary No growth in 48 hours. 10/01/23 22:24 Mucosa - Nose SARS-CoV-2, Influenza & RSV (PCR) - Final D/C Instructions Discharge Diet: Low fat / Low cholesterol Discharge Activity: Return to Normal Activity Weight Bearing Status: Weight bearing as tolerated Call your doctor if you observe: Fever of 101 or Higher, Shortness of breath, Dizziness, Swelling in the ankles, Chest pain and Increased palpitations (irregular heartbeat) Meaningful Use Info Meaningful Use Diagnoses (Choose all that apply): None applicable Discharge Plan Admission Admit Date/Time: 10/02/23 01:06 Primary Reason for Your Visit: COPD exacerbation Attending Provider: Ryann Lema Primary Care Provider: Tor Lucia Consulting Providers: Freddy Mooney Instructions Patient Instructions: Discharge Instructions: COPD Discharge Orders/Prescriptions Prescriptions: New prednisone 10 mg tablets,dose pack See Taper PO DAILY Qty: 48 0RF Taper: Prednisone Taper 60 mg WITH BREAKFAST for 3 Days and 0 Hour 50 mg WITH BREAKFAST for 3 Days and 0 Hour 40 mg WITH BREAKFAST for 3 Days and 0 Hour 30 mg WITH BREAKFAST for 3 Days and 0 Hour 20 mg WITH BREAKFAST for 3 Days and 0 Hour 10 mg WITH BREAKFAST for 3 Days and 0 Hour Continued furosemide 20 mg tablet 20 mg PO DAILY Hold Instructions: Restart on Monday if renal function is normal on BMP budesonide 1 mg/2 mL suspension for nebulization 1 mg inhalation BID Qty: 60 6RF Glucagon Emergency Kit (human) 1 mg recon soln 1 mg subcut Q20M PRN (Reason: hypoglycem) Rx Instructions: until target blood sugar attained dextrose 40 % gel 15 g PO Q15M PRN (Reason: hypoglycemia) Rx Instructions: until symptoms of low blood sugar are controlled azithromycin 250 mg tablet 250 mg PO QMWF Qty: 36 0RF Rx Instructions: Mon, and monday prednisone 10 mg tablet 10 mg PO DAILY Qty: 90 3RF Hold Instructions: Hold until prednisone taper is completed and then reinitiate acetazolamide 250 MG tablet 250 mg PO BID Hold Instructions: Hold until BMP is done on Monday and reinitiate if renal function is stable Lactobacillus acidophilus 1 EACH capsule 1 cap PO DAILY albuterol sulfate 2.5 MG/3 ML solution for nebulization 2.5 mg INHALATION Q2H PRN PRN (Reason: Shortness of Breath/Wheezing) 0RF docusate sodium 100 MG capsule 100 mg PO BID 0RF ondansetron HCl 4 mg Tablet 4 mg PO Q4H PRN (Reason: Nausea) PreserVision AREDS-2 250-90-40-1 mg Capsule 1 tab PO BID acetaminophen 500 mg Capsule 1,000 mg PO Q8H PRN (Reason: Pain) albuterol sulfate [Ventolin HFA] 90 mcg/actuation HFA aerosol inhaler 2 puff inhalation Q4H PRN PRN (Reason: Wheezing) Qty: 1 0RF ipratropium-albuterol 0.5 mg-3 mg(2.5 mg base)/3 mL Solution For Nebulization 3 ml INHALATION Q4H PRN (Reason: Wheezing) ipratropium-albuterol 0.5 mg-3 mg(2.5 mg base)/3 mL Solution For Nebulization 3 ml INHALATION TID dextromethorphan HBr 10 mg/5 mL Liquid 10 mg PO Q6H PRN (Reason: Cough) calcium carbonate 600 mg calcium (1,500 mg) Tablet 600 mg PO DAILY citalopram 20 mg tablet 20 mg PO DAILY cyanocobalamin (vitamin B-12) 500 mcg Tablet 500 mcg PO DAILY Hemorrhoidal Ointment 1 applic UT Q6H PRN (Reason: hemorrhoids) cholecalciferol (vitamin D3) [Vitamin D3] 50 mcg (2,000 unit) Tablet 50 mcg PO DAILY gabapentin 300 mg capsule 300 mg PO QHS bisacodyl 10 mg suppository 10 mg UT DAILY PRN (Reason: constipation) Eliquis 5 mg tablet 5 mg PO BID mineral oil [Fleet Mineral Oil] Enema 118 ml UT DAILY PRN (Reason: constipation) Rx Instructions: discard any unused portion lorazepam [Ativan] 0.5 mg tablet 0.5 mg PO BID magnesium hydroxide [Milk of Magnesia] 400 mg/5 mL suspension 30 ml PO DAILY PRN (Reason: constipation) polyethylene glycol 3350 [Miralax] 17 gram/dose powder 17 g PO DAILY PRN (Reason: constipation) pantoprazole 20 mg tablet,delayed release (DR/EC) 20 mg PO DAILY lorazepam 0.5 mg tablet 0.5 mg PO Q12H PRN (Reason: ANXIETY) Patient Comments: For 14 days order date was 09/18/23 metoprolol succinate 25 mg tablet extended release 24 hr 25 mg PO DAILY Qty: 90 3RF potassium chloride 20 mEq tablet extended release 40 meq PO DAILY Referrals / Follow Up: Jin Cates DO [Med Staff - Active Staff] - Within 2 Weeks Tor Lucia MD [Primary Care Provider] - Within 1 Week Disposition Disposition (needs filled in before D/C Order can be placed): [facility] Facility Charges/Coding Visit Charges Inpatient E&M: 66253 Disch Hosp >30min
--- NOTE | 2023-10-06 13:45 | CASEMGMT ---
Discharge Planning Discharge orders, signed med list, and transport time sent to [facility]. Physicians will transport patient by cot at 4p. Nursing and SW updated. VM was left for patients daughter (Irene). Cecily Snyder, Discharge Planning Asst.
--- NOTE | 2023-10-06 14:45 | NURSING ---
Report called to [facility].
== END 2023-10-06 17:00 | disposition skilled nursing facility (03) | DRG 190 ==
LOC: ED 22:23 → PCU 10-02 01:17
PROVIDERS: Admitting Provider Internal Medicine; Emergency Provider Emergency Medicine; PCP Family Medicine; Visit Provider Student in an Organized Health Care Education/Training Program
DX: J44.1 Chronic obstructive pulmonary disease with (acute) exacerbation (principal); J96.21 Acute and chronic respiratory failure with hypoxia; G93.41 Metabolic encephalopathy; J96.22 Acute and chronic respiratory failure with hypercapnia; I50.32 Chronic diastolic (congestive) heart failure; I24.89 Other forms of acute ischemic heart disease; I11.0 Hypertensive heart disease with heart failure; I49.5 Sick sinus syndrome; I48.0 Paroxysmal atrial fibrillation; K21.9 Gastro-esophageal reflux disease without esophagitis; E78.5 Hyperlipidemia, unspecified; E66.9 Obesity, unspecified; Z66 Do not resuscitate; Z95.0 Presence of cardiac pacemaker; Z68.34 Body mass index [BMI] 34.0-34.9, adult; Z79.01 Long term (current) use of anticoagulants; Z79.51 Long term (current) use of inhaled steroids; Z79.899 Other long term (current) drug therapy; Z86.711 Personal history of pulmonary embolism; Z86.718 Personal history of other venous thrombosis and embolism; Z87.891 Personal history of nicotine dependence
CPT/HCPCS: 36415; 36600; 51702; 71045; 80048; 80053; 81001; 82803; 82962; 83735; 83880; 84100; 84484; 85025; 85610; 85730; 87040; 87631; 93005; 94002; 94003; 94640; 94762; 97162; 97166; 97530; 97535; 97802; 99285; J7030; A4216; J1940

== ENCOUNTER 2023-10-08 13:08 | Emergency (ER) | payer MEDICARE, MEDICAID, SELFPAY ==
[2023-10-08 13:10] VITALS: BP 190/67; PULSE 60; RESP 30; TEMP 36.8; O2SAT 96; BMI 33.0
[2023-10-08 13:15] VITALS: O2SAT 97
--- NOTE | 2023-10-08 13:34 | EKG12_ITS ---
Test Reason : SOB Blood Pressure : / mmHG Vent. Rate : 060 BPM Atrial Rate : 214 BPM P-R Int : 000 ms QRS Dur : 122 ms QT Int : 428 ms P-R-T Axes : 000 -70 094 degrees QTc Int : 428 ms AFIB WITH Ventricular-paced rhythm Abnormal ECG Confirmed by Tomy Block ([id number]), managing editor JANEEN MAK ([id number]) on 10/10/2023 9:11:07 AM Referred By: RUI/EFFIE Confirmed By:Tomy Block
[2023-10-08 13:42] LABS: Absolute Lymphocyte Count 0.38 X10^3/uL (0.83-4.51); Basophil# 0.02 X10^3/uL; Basophil% 0.1 % (0-1); Eosinophil# 0.01 X10^3/uL; Eosinophils% 0.1 % (0-5); Hematocrit 35.3 % (37-47); Hemoglobin 9.8 g/dL (12.0-15.0); Lymphocyte # 0.38 X10^3/ul (0.83-4.51); Lymphocyte % 2.6 % (19-41); Mean Corp Hgb Conc 27.8 g/dL (32-36); Mean Corpuscular Hgb 24.7 pg (27.0-32.0); Mean Corpuscular Volume 88.9 fL (81-99); Mean Platelet Vol. 12.2 fl (6.2-12.0); Monocyte# 0.22 X10^3/uL; Monocyte% 1.5 % (0-10); NRBC Flagged by Analyzer 0.1 % (0-5); Neutrophil # 13.98 X10^3/uL (2.7-7.7); Neutrophil % 94.5 % (47-70); POSITIVE DIFFERENTIAL YES; Platelet Count 211 K/mm3 (150-450); RBC Distribution Width CV 18.6 % (11.6-14.6); RBC Distribution Width SD 60.8 fl (35.1-43.9); Red Blood Count 3.97 M/mm3 (4.2-5.4); White Blood Count 14.8 K/mm3 (4.4-11.0)
[2023-10-08] MEDS: Albuterol 2.5 MG/3 ML VIAL.NEB. INHALATION (13:44)
[2023-10-08] MEDS: Ipratropium/Albuterol Sulfate 3 ML AMPUL.NEB INHALATION (13:44)
--- NOTE | 2023-10-08 13:44 | ED.VIS.DYS ---
HPI History of Present Illness Chief Complaint: Shortness of Breath Narrative Narrative: 77-year-old female with chronic shortness of breath, history of COPD, chronic hypoxic, hypercapnic respiratory failure, pulmonary hypertension, A-fib, CHF. Patient states she was released from the hospital a few days ago. She states she felt like she was short of breath a couple of hours ago. She states that her nurse told her that her blood pressure was elevated and that her oxygen was in the 80s. It is unclear if she had an anxiety attack but she states she does have anxiety. Denies chest pain. No fevers. [facility] Medical History Abscess of left leg Anemia Arthritis Atrial fibrillation AV block, complete BiPAP (biphasic positive airway pressure) dependence Cardiology follow-up encounter Chronic anticoagulation Chronic anticoagulation CO2 narcosis COPD (chronic obstructive pulmonary disease) Diabetes Difficulty swallowing DVT (deep venous thrombosis) Dyslipidemia Elevated troponin Essential hypertension Essential hypertension Former smoker Former tobacco use Heart failure with preserved ejection fraction Hematoma Hematoma of left lower leg History of atrial fibrillation History of CHF (congestive heart failure) History of DVT (deep vein thrombosis) History of echocardiogram History of edema History of irregular heartbeat History of pacemaker History of pulmonary embolism History of pulmonary embolus (PE) History of recurrent deep vein thrombosis (DVT) History of steroid therapy Injury of back Low iron Non-smoker On home oxygen therapy Post-menopausal Presence of permanent cardiac pacemaker (~10/12/20) Pulmonary embolism Pulmonary HTN Shortness of breath on exertion Skin necrosis Sleep apnea Tachycardia-bradycardia syndrome Uses wheelchair Venous insufficiency Walker as ambulation aid Wears glasses Wound abscess Home Medications Lactobacillus acidophilus 1 cap PO DAILY [facility] 08/20/20 [History Last Taken 09/01/20 10:42] acetazolamide 250 mg tablet 250 mg PO BID EDEMA 08/20/20 [History Last Taken 09/01/20 08:00] albuterol sulfate 2.5 mg/3 mL (0.083 %) solution for nebulization 2.5 mg (3 mL) inhalation Q2H PRN PRN Shortness of Breath/Wheezing 09/05/20 [Rx Last Taken Unknown] docusate sodium 100 mg capsule 100 mg PO BID 09/05/20 [Rx Last Taken Unknown] ondansetron HCl 4 mg tablet 4 mg PO Q4H PRN Nausea 07/14/21 [History Last Taken Unknown] vit C 250 mg-vit E 90 mg-zinc 40 mg-copper 1 hr-voyizl-ktismr capsule (PreserVision AREDS-2) 1 tab PO BID 07/14/21 [History Last Taken Unknown] furosemide 20 mg tablet 20 mg PO DAILY 01/14/22 [History Last Taken Unknown] acetaminophen 500 mg capsule 1,000 mg PO Q8H PRN Pain 04/14/22 [History Last Taken Unknown] albuterol sulfate 90 mcg/actuation aerosol inhaler (Ventolin HFA) 2 puff inhalation Q4H PRN PRN Wheezing ##1 04/14/22 [Rx Last Taken Unknown] ipratropium 0.5 mg-albuterol 3 mg (2.5 mg base)/3 mL nebulization soln 3 ml inhalation Q4H PRN Wheezing 08/20/22 [History Last Taken Unknown] budesonide 1 mg/2 mL suspension for nebulization 1 mg (2 mL) inhalation BID #60 mL 10/21/22 [Rx Last Taken Unknown] calcium carbonate 600 mg calcium (1,500 mg) tablet 600 mg PO DAILY 12/31/22 [History Last Taken Unknown] cholecalciferol (vitamin D3) 50 mcg (2,000 unit) tablet (Vitamin D3) 50 mcg PO DAILY 12/31/22 [History Last Taken Unknown] citalopram 20 mg tablet 20 mg PO DAILY 12/31/22 [History Last Taken Unknown] cyanocobalamin (vitamin B-12) 500 mcg tablet 500 mcg PO DAILY 12/31/22 [History Last Taken Unknown] dextromethorphan HBr 10 mg/5 mL oral liquid 10 mg PO Q6H PRN Cough 12/31/22 [History Last Taken Unknown] ipratropium 0.5 mg-albuterol 3 mg (2.5 mg base)/3 mL nebulization soln 3 ml inhalation TID 12/31/22 [History Last Taken Unknown] phenylephrine-shark liver oil-mineral oil-petrolatum rectal ointment (Hemorrhoidal ointment) 1 applic DC Q6H PRN hemorrhoids 12/31/22 [History Last Taken Unknown] dextrose 40 % oral gel 15 g PO Q15M PRN hypoglycemia 02/08/23 [History Last Taken Unknown] glucagon 1 mg solution for injection (Glucagon Emergency Kit) 1 mg subcut Q20M PRN hypoglycem 02/08/23 [History Last Taken Unknown] gabapentin 300 mg capsule 300 mg PO QHS 03/20/23 [History Last Taken Unknown] azithromycin 250 mg tablet 250 mg PO QMWF #36 tabs 04/19/23 [Rx Last Taken Unknown] prednisone 10 mg tablet 10 mg PO DAILY #90 tabs 04/19/23 [Rx Last Taken Unknown] lorazepam 0.5 mg tablet 0.5 mg PO Q12H PRN ANXIETY 09/11/23 [History Last Taken Unknown] metoprolol succinate 25 mg tablet,extended release 24 hr 25 mg PO DAILY #90 tabs 09/20/23 [Rx Last Taken Unknown] potassium chloride 20 mEq tablet,extended release 40 meq PO DAILY 09/20/23 [History Last Taken Unknown] apixaban 5 mg tablet (Eliquis) 5 mg PO BID 10/01/23 [History Last Taken Unknown] bisacodyl 10 mg rectal suppository 10 mg DC DAILY PRN constipation 10/01/23 [History Last Taken Unknown] lorazepam 0.5 mg tablet (Ativan) 0.5 mg PO BID 10/01/23 [History Last Taken Unknown] magnesium hydroxide 400 mg/5 mL oral suspension (Milk of Magnesia) 30 ml PO DAILY PRN constipation 10/01/23 [History Last Taken Unknown] mineral oil (Fleet Mineral Oil enema) 118 ml DC DAILY PRN constipation 10/01/23 [History Last Taken Unknown] pantoprazole 20 mg tablet,delayed release 20 mg PO DAILY 10/01/23 [History Last Taken Unknown] polyethylene glycol 3350 17 gram/dose oral powder (Miralax) 17 g PO DAILY PRN constipation 10/01/23 [History Last Taken Unknown] prednisone 10 mg tablets in a dose pack See Taper PO DAILY #48 tabs 10/06/23 [Rx Last Taken Unknown] Allergy/AdvReac Type Severity Reaction Status Date / Time amlodipine besylate AdvReac ANKLE AND Verified 09/11/23 23:18 [From [facility]] LEG EDEMA codeine AdvReac MENTAL Verified 09/11/23 23:18 STATUS CHANGE lisinopril AdvReac COUGH Verified 09/11/23 23:18 Family History Sister Heart disease Surgical History History of cholecystectomy History of total hysterectomy Hx of atrioventricular node ablation tailbone surgery Social History household members: none housing: [facility] Smoking Status: Former smoker how long ago did patient quit smoking: Approxiomately 2003 alcohol intake: never substance use type: does not use caffeine: No ROS ROS ED Constitutional Constitutional ED: Denies chills, fever(s) or sweats Eyes Eyes: Denies blurry vision or change in vision ENT ENT ED: Denies ear pain, rhinorrhea or sore throat Cardiovascular Cardiovascular: Denies chest pain, palpitations or racing heartbeat Respiratory/Chest Respiratory/Chest: Reports cough and dyspnea; Denies sputum Gastrointestinal Gastrointestinal: Denies abdominal pain, constipation, diarrhea or vomiting Genitourinary Genitourinary ED: Denies dysuria, hematuria or urinary frequency Musculoskeletal Musculoskeletal: Denies arthralgias, myalgias or neck pain Integumentary Denies abscess, Abrasions or rash Neurologic Neurologic: Denies headache(s), paresthesias or weakness Psychiatric Psychiatric: Reports anxiety; Denies depression, suicidal ideation or suicidal thoughts Endocrine Endocrinology: Denies polydipsia or polyuria EXAM Physical Exam Const Vital Signs: 10/08/23 13:10 10/08/23 13:15 10/08/23 13:47 Temperature 98.2 F Temperature Source Temporal Pulse Rate 60 60 Respiratory Rate 30 H 22 H Respiratory Effort Short of Breath Labored Accessory Muscle Use Respiratory Depth Deep Respiratory Pattern Tachypnea Tachypnea Blood Pressure 190/67 H Blood Pressure Mean 108 Pulse Ox 96 Oxygen Delivery Method Nasal Cannula Nasal Cannula Oxygen Flow Rate (L/min) 2 2 10/08/23 13:48 10/08/23 14:37 Temperature Temperature Source Pulse Rate 70 Respiratory Rate 26 H Respiratory Effort Respiratory Depth Respiratory Pattern Blood Pressure 177/71 H Blood Pressure Mean 106 Pulse Ox 95 95 Oxygen Delivery Method Nasal Cannula Nasal Cannula Oxygen Flow Rate (L/min) 2 2 General Appearance ED: NAD; Negative for pallor HEENT Reports moist mucous membranes Eyes PERRL Neck no lymphadenopathy and supple Resp Resp Narrative: Tachypneic. Auscultation: wheezes expiratory wheezes and inspiratory wheezes Cardio regular rate and regular rhythm GI non-tender Neuro oriented x3 and CN's II-XII intact bilaterally Sensorium / Orientation: alert Psych mental status grossly normal Skin no wounds General Skin Exam: Negative for jaundice or pallor MDM MDM MDM Narrative Medical decision making narrative: Patient with shortness of breath. She has multiple reasons to be short of breath. She is anticoagulated on Eliquis so I do not believe she has a DVT/PE. Patient speaking full sentences and on her baseline oxygen. States she was more dyspneic prior to arrival. She is given breathing treatments and Solu-Medrol. She states he believes they might of given her steroids yesterday or today but she is unclear. Patient denies chest pain. Differential includes dehydration, anemia, electrolyte normalities, pneumonia, CHF exacerbation, COPD exacerbation. CBC obtained to assess white blood cell count, hemoglobin, platelets. CMP to assess liver function, renal function electrolytes, glucose. High-sensitivity troponin EKG to assess for ischemia/dysrhythmia. Chest pain rule out pneumonia or CHF. CBC shows white blood cell count of 14.8 however the patient is on steroids and this may be due to reactive airway. Hemoglobin 9.8. This is near the patient's baseline. Platelets are 211. Renal function normal. Glucose 121 without anion gap. High-sensitivity troponin 25. BNP 155. EKG on my interpretation shows a paced rhythm at 60 bpm without sign ischemic change. Chest x-ray my interpretation shows no acute process. Radiology interprets this and agrees. Patient ultimately feeling better after breathing treatments and Solu-Medrol. Reviewed her records from the facility and she is on a Z-Cabrera as well as prednisone which she supposed start today. Patient was given Solu-Medrol today so she was counseled she will need more steroids today. I do think she is stable to go back to her facility. We discussed this at length and I counseled her that she is not requiring more oxygen than usual and her lab work is pretty normal chest x-ray is unremarkable and I do not have any reason necessarily to keep her objectively, however she wants me to try to keep her I will. She states that she will go back to the facility and if any changes she will return. She asked me to confirm that she is on prednisone at the facility and I did. Discharged stable condition. Impression: 1. COPD exacerbation Lab Data Attestation: I reviewed the patient's lab results. Labs: Laboratory Results - last 24 hr 10/08/23 13:31 WBC 14.8 H RBC 3.97 L Hgb 9.8 L Hct 35.3 L MCV 88.9 MCH 24.7 L MCHC 27.8 L RDW Std Deviation 60.8 H RDW Coeff of Laura 18.6 H Plt Count 211 MPV 12.2 H Immature Gran % (Auto) 1.200 H Neut % (Auto) 94.5 H Lymph % (Auto) 2.6 L [place] % (Auto) 1.5 Eos % (Auto) 0.1 Baso % (Auto) 0.1 Absolute Neuts (auto) 14.0 H Absolute Lymphs (auto) 0.38 L Nucleated RBC % 0.1 Sodium 146 H Potassium 4.3 Chloride 108 H Carbon Dioxide 34.0 H Anion Gap 4 L BUN 30 H Creatinine 0.62 Estim Creat Clear Calc 65.59 Est GFR (MDRD) Af Amer 119 Est GFR (MDRD) Non-Af 99 BUN/Creatinine Ratio 48.5 H Glucose 121 H Calcium 9.2 Troponin I High Sens 45 B-Natriuretic Peptide 155.9 H Radiography Diagnostic Testing: Clinical Impression(s) from Imaging Studies Chest X-Ray 10/08/23 13:55 IMPRESSION: Elevation of the left hemidiaphragm and mild atelectatic changes in the left lung base. Electronically Signed: Lee Rodriguez MD at 14:39 EDT , Discharge Plan Triage Chief Complaint: Shortness of Breath ED Provider: Lonnie Pina Dx/Rx/DC Orders Prescriptions: No Action furosemide 20 mg tablet 20 mg PO DAILY Hold Instructions: Restart on Monday if renal function is normal on BMP budesonide 1 mg/2 mL suspension for nebulization 1 mg inhalation BID Qty: 60 6RF Glucagon Emergency Kit (human) 1 mg recon soln 1 mg subcut Q20M PRN (Reason: hypoglycem) Rx Instructions: until target blood sugar attained dextrose 40 % gel 15 g PO Q15M PRN (Reason: hypoglycemia) Rx Instructions: until symptoms of low blood sugar are controlled azithromycin 250 mg tablet 250 mg PO QMWF Qty: 36 0RF Rx Instructions: Mon, and monday prednisone 10 mg tablet 10 mg PO DAILY Qty: 90 3RF Hold Instructions: Hold until prednisone taper is completed and then reinitiate acetazolamide 250 MG tablet 250 mg PO BID Hold Instructions: Hold until BMP is done on Monday and reinitiate if renal function is stable Lactobacillus acidophilus 1 EACH capsule 1 cap PO DAILY albuterol sulfate 2.5 MG/3 ML solution for nebulization 2.5 mg INHALATION Q2H PRN PRN (Reason: Shortness of Breath/Wheezing) 0RF docusate sodium 100 MG capsule 100 mg PO BID 0RF ondansetron HCl 4 mg Tablet 4 mg PO Q4H PRN (Reason: Nausea) PreserVision AREDS-2 250-90-40-1 mg Capsule 1 tab PO BID acetaminophen 500 mg Capsule 1,000 mg PO Q8H PRN (Reason: Pain) albuterol sulfate [Ventolin HFA] 90 mcg/actuation HFA aerosol inhaler 2 puff inhalation Q4H PRN PRN (Reason: Wheezing) Qty: 1 0RF ipratropium-albuterol 0.5 mg-3 mg(2.5 mg base)/3 mL Solution For Nebulization 3 ml INHALATION Q4H PRN (Reason: Wheezing) ipratropium-albuterol 0.5 mg-3 mg(2.5 mg base)/3 mL Solution For Nebulization 3 ml INHALATION TID dextromethorphan HBr 10 mg/5 mL Liquid 10 mg PO Q6H PRN (Reason: Cough) calcium carbonate 600 mg calcium (1,500 mg) Tablet 600 mg PO DAILY citalopram 20 mg tablet 20 mg PO DAILY cyanocobalamin (vitamin B-12) 500 mcg Tablet 500 mcg PO DAILY Hemorrhoidal Ointment 1 applic DC Q6H PRN (Reason: hemorrhoids) cholecalciferol (vitamin D3) [Vitamin D3] 50 mcg (2,000 unit) Tablet 50 mcg PO DAILY gabapentin 300 mg capsule 300 mg PO QHS bisacodyl 10 mg suppository 10 mg DC DAILY PRN (Reason: constipation) Eliquis 5 mg tablet 5 mg PO BID mineral oil [Fleet Mineral Oil] Enema 118 ml DC DAILY PRN (Reason: constipation) Rx Instructions: discard any unused portion lorazepam [Ativan] 0.5 mg tablet 0.5 mg PO BID magnesium hydroxide [Milk of Magnesia] 400 mg/5 mL suspension 30 ml PO DAILY PRN (Reason: constipation) polyethylene glycol 3350 [Miralax] 17 gram/dose powder 17 g PO DAILY PRN (Reason: constipation) pantoprazole 20 mg tablet,delayed release (DR/EC) 20 mg PO DAILY prednisone 10 mg tablets,dose pack See Taper PO DAILY Qty: 48 0RF Taper: Prednisone Taper 60 mg WITH BREAKFAST for 3 Days and 0 Hour 50 mg WITH BREAKFAST for 3 Days and 0 Hour 40 mg WITH BREAKFAST for 3 Days and 0 Hour 30 mg WITH BREAKFAST for 3 Days and 0 Hour 20 mg WITH BREAKFAST for 3 Days and 0 Hour 10 mg WITH BREAKFAST for 3 Days and 0 Hour lorazepam 0.5 mg tablet 0.5 mg PO Q12H PRN (Reason: ANXIETY) Patient Comments: For 14 days order date was 09/18/23 metoprolol succinate 25 mg tablet extended release 24 hr 25 mg PO DAILY Qty: 90 3RF potassium chloride 20 mEq tablet extended release 40 meq PO DAILY Primary Care Provider: Tor Lucia Referrals: Tor Lucia MD [Primary Care Provider] -
[2023-10-08 13:47] VITALS: PULSE 60; RESP 22
[2023-10-08 13:48] VITALS: O2SAT 95
--- NOTE | 2023-10-08 13:55 | RAD_ITS ---
INDICATION: chest pain EXAMINATION/TECHNIQUE: X-RAY - XR Chest 1 View COMPARISON: Prior study dated: 10/01/2023 FINDINGS: LINES/DEVICES: Single chamber left sided pacemaker in stable position. LUNGS: Mild elevation of the left hemidiaphragm and mild atelectatic changes in left lung base. No evidence of pleural effusions. MEDIASTINUM AND CARDIOVASCULAR STRUCTURES: Stable cardiomediastinal silhouette. BONES AND SOFT TISSUES: Unremarkable. RAD/Chest 1 View (Portable) IMPRESSION: Elevation of the left hemidiaphragm and mild atelectatic changes in the left lung base. Electronically Signed: Lee Rodriguez MD at 14:39 EDT ,
[2023-10-08] MEDS: MethylPREDNISolone 125 MG/2 ML Vial IV (13:57)
[2023-10-08 14:01] LABS: Anion Gap 4 (5-15); BNP,B-Type NATRIURETIC PEPTIDE 155.9 pg/mL (0-100); BUN 30 mg/dL (7-18); BUN/Creat Ratio 48.5 RATIO (10-20); Calcium,Total 9.2 mg/dL (8.5-10.1); Chloride 108 mmol/L (98-107); Creatinine, Serum 0.62 mg/dL (0.55-1.02); EST Glomerular Filtration Rate 99 mL/min (>60); Est Glom Filt Rate - Afr Amer 119 mL/min (>60); Estimated Creatinine Clearance 65.59 ml/min; Glucose 121 mg/dL (74-106); Potassium 4.3 mmol/L (3.5-5.1); Sodium Level 146 mmol/L (136-145); Troponin-I HS (w/2H Reflex) 45 pg/mL (3.0-54.0)
[2023-10-08 14:37] VITALS: BP 177/71; PULSE 70; RESP 26; O2SAT 95
--- NOTE | 2023-10-08 15:17 | ED.RN ---
report called to Shari beltran at [facility].
[2023-10-08 15:19] VITALS: BP 177/76; PULSE 78; RESP 22; TEMP 36.6; O2SAT 94
[2023-10-08 15:36] LABS: Reflex Troponin-HS? (from REC) Y
== END 2023-10-08 16:11 | disposition skilled nursing facility (03) ==
PROVIDERS: Emergency Provider Student in an Organized Health Care Education/Training Program; PCP Family Medicine; Visit Provider Student in an Organized Health Care Education/Training Program
DX: J44.1 Chronic obstructive pulmonary disease with (acute) exacerbation (principal); I11.0 Hypertensive heart disease with heart failure; I50.9 Heart failure, unspecified; G47.30 Sleep apnea, unspecified; Z87.891 Personal history of nicotine dependence; Z86.718 Personal history of other venous thrombosis and embolism; Z86.711 Personal history of pulmonary embolism; Z95.0 Presence of cardiac pacemaker
CPT/HCPCS: 71045; 80048; 83880; 84484; 85025; 93005; 94640; 96374; 99284; A4216

== ENCOUNTER 2024-01-03 06:41 | Inpatient (IN) | payer MEDICARE, MEDICAID, SELFPAY ==
[2024-01-03] VITALS (19 sets, daily range): BP systolic 113–154; BP diastolic 4–84; PULSE 60–62; RESP 12–34; TEMP 35.9–36.9; O2SAT 95–100; BMI 35.5; BMI 34.6
--- NOTE | 2024-01-03 06:51 | RAD_ITS ---
STUDY: X-RAY CHEST REASON FOR EXAM: Female, 78 years old. Cough TECHNIQUE: Single AP portable view of the chest. COMPARISON: Comparison is made with prior study dated October 08, 2023. FINDINGS: EKG electrodes are seen. Infiltrate in the left lower lobe. Patchy infiltrate in the right lower lobe. Pleural calcification at the right lung base. Blunting of the left costophrenic angle. Normal size heart. A left-sided unipolar pacemaker is seen. Normal mediastinum and betty. Normal visualized pulmonary arteries. There is atherosclerotic calcification of the aortic arch with tortuosity. Normal visualized thoracic spine. Normal visualized ribs, clavicles, and shoulders. There is no demonstrated abnormality of the visualized soft tissue structures of the upper abdomen. RAD/Chest 1 View (Portable) IMPRESSION: Infiltrate in the left lower lobe as well as at the right lung base. Stable elevation of the left hemidiaphragm. Electronically Signed: Nathen Dickinson MD at 8:06 EDT ,
--- NOTE | 2024-01-03 06:51 | EKG12_ITS ---
Test Reason : SOB Blood Pressure : / mmHG Vent. Rate : 060 BPM Atrial Rate : 059 BPM P-R Int : 000 ms QRS Dur : 120 ms QT Int : 424 ms P-R-T Axes : 000 -63 105 degrees QTc Int : 424 ms Ventricular-paced rhythm Abnormal ECG Confirmed by CARLIE BHAT, KATELYN ([id number]), publications editor PABLITO TRUONG ([id number]) on 01/04/2024 8:24:15 AM Referred By: Confirmed By:KATELYN SEXTON MD
--- NOTE | 2024-01-03 06:52 | EDS_ITS ---
HPI History of Present Illness Chief Complaint: Shortness of Breath Informant: patient Narrative Narrative: [facility]-day history nonproductive cough occasional wheeze increasing dyspnea awakening at 5 AM. She has history of sleep apnea she wears a CPAP at night. She had this on. Status post 2 aerosol treatments by EMS. Denies chest pains fevers. Occasional myalgias. No vomiting or diarrhea. History of COPD. Paroxysmal A-fib on Eliquis. Currently nonambulatory per patient. Chronically wears 3 to 4 L throughout the day. She states at times will wear her BiPAP with naps. 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 Patient also reports she would not want to be on a ventilator. Denies diabetes history. Prior similar symptoms: Yes PFSH [facility] Medical History DNR (do not resuscitate) CO2 narcosis Chronic anticoagulation Wears glasses Post-menopausal Hematoma History of steroid therapy Diabetes Uses wheelchair Walker as ambulation aid Arthritis Low iron Anemia DVT (deep venous thrombosis) Pulmonary embolism Injury of back Difficulty swallowing Non-smoker On home oxygen therapy Shortness of breath on exertion History of edema History of echocardiogram Cardiology follow-up encounter History of pacemaker History of CHF (congestive heart failure) History of atrial fibrillation History of irregular heartbeat Former smoker Abscess of left leg Skin necrosis Hematoma of left lower leg Wound abscess Elevated troponin 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 Essential hypertension AV block, complete Tachycardia-bradycardia syndrome Presence of permanent cardiac pacemaker (~10/12/20) Sleep apnea BiPAP (biphasic positive airway pressure) dependence History of pulmonary embolism History of recurrent deep vein thrombosis (DVT) Pulmonary hypertension Former tobacco use Atrial fibrillation Heart failure with preserved ejection fraction Chronic anticoagulation Venous insufficiency Pulmonary HTN History of pulmonary embolus (PE) History of DVT (deep vein thrombosis) Essential hypertension Dyslipidemia COPD (chronic obstructive pulmonary disease) Home Medications ?Medication ?Instructions ?Recorded ?Last Taken ?Type Lactobacillus acidophilus 1 cap PO DAILY [facility] 08/20/20 09/01/20 10:42 History acetazolamide 250 mg tablet 250 mg PO BID EDEMA 08/20/20 09/01/20 08:00 History albuterol sulfate 2.5 mg/3 mL 2.5 mg (3 mL) inhalation Q2H PRN 09/05/20 Unknown Rx (0.083 %) solution for nebulization PRN Shortness of Breath/Wheezing docusate sodium 100 mg capsule 100 mg PO BID 09/05/20 Unknown Rx ondansetron HCl 4 mg tablet 4 mg PO Q4H PRN Nausea 07/14/21 Unknown History vit C 250 mg-vit E 90 mg-zinc 40 1 tab PO BID 07/14/21 Unknown History mg-copper 1 [id number] capsule (PreserVision AREDS-2) furosemide 20 mg tablet 20 mg PO DAILY 01/14/22 Unknown History acetaminophen 500 mg capsule 1,000 mg PO Q8H PRN Pain 04/14/22 Unknown History albuterol sulfate 90 mcg/actuation 2 puff inhalation Q4H PRN PRN 04/14/22 Unknown Rx aerosol inhaler (Ventolin HFA) Wheezing ##1 ipratropium 0.5 mg-albuterol 3 mg 3 ml inhalation Q4H PRN Wheezing 08/20/22 Unknown History (2.5 mg base)/3 mL nebulization soln calcium carbonate 600 mg PO DAILY 12/31/22 Unknown History cholecalciferol (vitamin D3) 50 50 mcg PO QHS 12/31/22 Unknown History mcg (2,000 unit) tablet (Vitamin D3) citalopram 20 mg tablet 20 mg PO DAILY 12/31/22 Unknown History cyanocobalamin (vitamin B-12) 500 500 mcg PO DAILY 12/31/22 Unknown History mcg tablet dextromethorphan HBr 10 mg/5 mL 10 mg PO Q6H PRN Cough 12/31/22 Unknown History oral liquid ipratropium 0.5 mg-albuterol 3 mg 3 ml inhalation TID 12/31/22 Unknown History (2.5 mg base)/3 mL nebulization soln phenylephrine-shark liver 1 applic CA Q6H PRN hemorrhoids 12/31/22 Unknown History oil-mineral oil-petrolatum rectal ointment (Hemorrhoidal ointment) dextrose 40 % oral gel 15 g PO Q15M PRN hypoglycemia 02/08/23 Unknown History glucagon 1 mg solution for 1 mg subcut Q20M PRN hypoglycem 02/08/23 Unknown History injection (Glucagon Emergency Kit) gabapentin 300 mg capsule 300 mg PO QHS 03/20/23 Unknown History azithromycin 250 mg tablet 250 mg PO QMWF #36 tabs 04/19/23 Unknown Rx prednisone 10 mg tablet 10 mg PO DAILY #90 tabs 04/19/23 Unknown Rx metoprolol succinate 25 mg 25 mg PO DAILY #90 tabs 09/20/23 Unknown Rx tablet,extended release 24 hr potassium chloride 20 mEq 40 meq PO BID 09/20/23 Unknown History tablet,extended release apixaban 5 mg tablet (Eliquis) 5 mg PO BID 10/01/23 Unknown History bisacodyl 10 mg rectal suppository 10 mg CA DAILY PRN constipation 10/01/23 Unknown History lorazepam 0.5 mg tablet (Ativan) 0.5 mg PO BID 10/01/23 Unknown History magnesium hydroxide 400 mg/5 mL 30 ml PO DAILY PRN constipation 10/01/23 Unknown History oral suspension (Milk of Magnesia) mineral oil (Fleet Mineral Oil 118 ml CA DAILY PRN constipation 10/01/23 Unknown History enema) pantoprazole 20 mg tablet,delayed 20 mg PO DAILY 10/01/23 Unknown History release polyethylene glycol 3350 17 17 g PO DAILY PRN constipation 10/01/23 Unknown History gram/dose oral powder (Miralax) budesonide 1 mg/2 mL suspension 1 mg inhalation DAILY 01/03/24 Unknown History for nebulization melatonin 3 mg tablet 3 mg PO QHS 01/03/24 Unknown History Allergy/AdvReac Type Severity Reaction Status Date / Time amlodipine besylate (From AdvReac ANKLE AND Verified 01/03/24 06:54 [facility]) LEG EDEMA codeine AdvReac MENTAL Verified 01/03/24 06:54 STATUS CHANGE lisinopril AdvReac COUGH Verified 01/03/24 06:54 Family History Sister Heart disease Surgical History Hx of atrioventricular node ablation tailbone surgery History of cholecystectomy History of total hysterectomy Social History household members: none housing: custodial Smoking Status: Former smoker how long ago did patient quit smoking: Approxiomately 2003 alcohol intake: never substance use type: does not use caffeine: No ROS ROS ED Constitutional Constitutional ED: Denies chills, fever(s) or sweats Eyes Eyes: Denies change in vision ENT ENT ED: Denies dysphagia or sore throat Cardiovascular Cardiovascular: Denies chest pain, leg edema, palpitations or racing heartbeat Respiratory/Chest Respiratory/Chest: Reports cough and dyspnea; Denies dyspnea on exertion Gastrointestinal Gastrointestinal: Denies abdominal pain, diarrhea, nausea or vomiting Genitourinary Genitourinary ED: Denies dysuria, hematuria or urinary frequency Musculoskeletal Musculoskeletal: Reports myalgias; Denies back pain, extremity pain or neck pain Integumentary Denies rash or wounds Neurologic Neurologic: Reports headache(s); Denies paresthesias or weakness EXAM Physical Exam Const Vital Signs: 01/03/24 06:43 01/03/24 06:51 01/03/24 06:54 Temperature 96.8 F L 96.7 F L Temperature Source Temporal Temporal Pulse Rate 60 60 Respiratory Rate 23 H 28 H Respiratory Effort Short of Breath Labored Respiratory Depth Shallow Respiratory Pattern Tachypnea Blood Pressure 154/4 H 154/84 H Blood Pressure Mean 54 107 Pulse Ox 95 95 Oxygen Delivery Method Nasal Cannula Nasal Cannula Nasal Cannula Oxygen Flow Rate (L/min) 4 4 4 Fraction of Inspired Oxygen (FIO2) 01/03/24 06:57 01/03/24 06:57 01/03/24 07:01 Temperature 98 F 98 F Temperature Source Temporal Temporal Pulse Rate 60 60 Respiratory Rate 30 H 30 H Respiratory Effort Respiratory Depth Respiratory Pattern Blood Pressure 154/84 H 154/84 H Blood Pressure Mean 107 107 Pulse Ox 96 96 95 Oxygen Delivery Method Bi-pap Bi-pap Nasal Cannula Oxygen Flow Rate (L/min) 4 Fraction of Inspired Oxygen (FIO2) 01/03/24 07:01 01/03/24 07:57 01/03/24 07:57 Temperature 98 F 98 F Temperature Source Temporal Temporal Pulse Rate 60 60 60 Respiratory Rate 31 H 18 28 H Respiratory Effort Respiratory Depth Respiratory Pattern Tachypnea Blood Pressure 130/62 H 130/62 H Blood Pressure Mean 84 84 Pulse Ox 96 98 98 Oxygen Delivery Method Bi-pap Bi-pap Oxygen Flow Rate (L/min) Fraction of Inspired Oxygen (FIO2) 35 01/03/24 08:00 01/03/24 08:09 Temperature 98 F 98 F Temperature Source Temporal Pulse Rate 60 60 Respiratory Rate 30 H 30 H Respiratory Effort Respiratory Depth Respiratory Pattern Blood Pressure 130/62 H 130/62 H Blood Pressure Mean 84 84 Pulse Ox 99 98 Oxygen Delivery Method Bi-pap Oxygen Flow Rate (L/min) Fraction of Inspired Oxygen (FIO2) Positive well nourished and well developed Constitutional Narrative: Speaking in short sentences occasional grunting. Nontoxic. 4 L nasal cannula. General Appearance ED: well developed HEENT Reports moist mucous membranes normocephalic and atraumatic Eyes EOMs intact bilaterally and conjunctivae normal General Eye ED: Yes normal appearance of both eyes Neck no lymphadenopathy and supple General: Negative for tenderness Chest Wall Chest: Negative for tenderness Resp Resp Narrative: Symmetric breath sounds. Decreased breath sounds at bases. Effort and Inspection: symmetric chest movement; Negative for respiratory distress Cardio regular rate, regular rhythm and no murmurs Peripheral Pulses: pulses 2+ throughout GI normal to inspection, nondistended, normoactive bowel sounds and non-tender Palpation: Negative for guarding or rebound tenderness present Back/Spine no CVA tenderness and no thoracic nor lumbar tenderness Extremity normal to inspection General Extremety ED: Negative for edema or tenderness General Extremity: Negative for edema Neuro oriented x3 and no sensory deficits noted Sensorium / Orientation: awake and alert Skin no rashes or lesions noted and no wounds MDM MDM MDM Narrative Medical decision making narrative: Interventions / MDM: Differential diagnosis: COPD exacerbation, pneumonia Diagnosis considered but do not suspect: Pulm embolism however patient on Eliquis. My EKG interpretation: Paced rhythm rate of 60, no acute findings. Imaging independently reviewed and interpreted by myself: 1 view chest x-ray left-sided pneumonia External documents reviewed: N/A Test considered but not ordered:N/A ED course: Patient speaking short sentences grunting. On her nasal cannula occasional dip in her pulse ox 87-88% with good waveforms. She is a DNR CCA, with her COPD and speaking in short sentences will place her on BiPAP. Status post aerosol treatments by EMS. Basic labs EKG chest x-ray ordered. Will order VBG. Solu-Medrol ordered with her COPD history and reported wheezing. Will require admission. 0712: Currently on a BiPAP, patient states breathing better on this. She is on 35% oxygenation. 0800: Chest x-ray concerning for pneumonia left side and white count was 20.7. 2 out of 4 SIRS criteria. Lactic acid blood cultures ordered. Initial order for commune acquired pneumonia antibiotics. I discussed with hospital Dr. Holt, this was changed to single broad antibiotic of Zosyn. Patient does wear BiPAP at facility. She will be admitted to PCU as she is stable on this. Re-evaluation: stable Disposition discussed with patient/family/significant other: Patient Case discussed with consulting clinician: Hospitalist This note was generated with [employer] dictation software. It may contain incorrect words, spelling, and punctuation that were not noted in checking the note before signing. Lab Data Attestation: I reviewed the patient's lab results. Labs: Laboratory Results - last 24 hr 01/03/24 07:10 WBC 20.7 H RBC 4.28 Hgb 10.0 L Hct 38.1 MCV 89.0 MCH 23.4 L MCHC 26.2 L RDW Std Deviation 54.3 H RDW Coeff of Laura 16.7 H Plt Count 326 MPV 11.5 Immature Gran % (Auto) 0.600 Neut % (Auto) 83.3 H Lymph % (Auto) 9.9 L [place] % (Auto) 5.1 Eos % (Auto) 0.9 Baso % (Auto) 0.2 Absolute Neuts (auto) 17.2 H Absolute Lymphs (auto) 2.05 Nucleated RBC % 0.1 Sodium 141 Potassium 3.7 Chloride 108 H Carbon Dioxide 34.0 H Anion Gap -1 L BUN 22 H Creatinine 0.74 Estim Creat Clear Calc 62.35 Est GFR (MDRD) Af Amer 97 Est GFR (MDRD) Non-Af 80 BUN/Creatinine Ratio 29.6 H Glucose 104 Calcium 9.2 ABG Data ABG results: ABG 01/03/24 01/03/24 07:21 07:28 Specimen Type AJ AJ Sample Site Not entered Not entered O2 % 35.0 VBG pH 7.26 L 7.27 L VBG pO2 27 27 VBG HCO3 34 H 33 H VBG Total CO2 37 H 35 H VBG O2 Sat (Calc) 38 L 40 L VBG Base Excess 7 H 6 H POC Mix VBG pCO2 Pt Tmp 76.9 H* 71.9 H* Respiration Rate 12 O2 Delivery Device BiPAP Not entered POC PEEP 8 Crit Call To/Read Back Yes Yes Blood Gas Notified Whom dr cohen Blood Gas Notified Time 07:22:57 Radiography Diagnostic Testing: Clinical Impression(s) from Imaging Studies Chest X-Ray 01/03/24 06:51 IMPRESSION: Infiltrate in the left lower lobe as well as at the right lung base. Stable elevation of the left hemidiaphragm. Electronically Signed: Nathen Dickinson MD at 8:06 EDT , Discharge Plan Dx/Rx/DC Orders Clinical Impression: Chronic anticoagulation, Presence of permanent cardiac pacemaker, Chronic hypoxemic respiratory failure, COPD exacerbation, Pneumonia Disposition Disposition: Acute Care Hospital [facility], [place]
[2024-01-03] MEDS: MethylPREDNISolone 125 MG/2 ML Vial IV (07:09)
[2024-01-03 07:16] LABS: Absolute Lymphocyte Count 2.05 X10^3/uL (0.83-4.51); Absolute Neutrophil Count 17.2 X10^3/uL (2.0-7.7); Basophil# 0.05 X10^3/uL; Basophil% 0.2 % (0-1); Eosinophil# 0.18 X10^3/uL; Eosinophils% 0.9 % (0-5); Hematocrit 38.1 % (37-47); Lymphocyte # 2.05 X10^3/ul (0.83-4.51); Lymphocyte % 9.9 % (19-41); Mean Corp Hgb Conc 26.2 g/dL (32-36); Mean Corpuscular Hgb 23.4 pg (27.0-32.0); Mean Platelet Vol. 11.5 fl (6.2-12.0); Monocyte# 1.05 X10^3/uL; Monocyte% 5.1 % (0-10); NRBC Flagged by Analyzer 0.1 % (0-5); Neutrophil # 17.23 X10^3/uL (2.7-7.7); Neutrophil % 83.3 % (47-70); Platelet Count 326 K/mm3 (150-450); RBC Distribution Width CV 16.7 % (11.6-14.6); RBC Distribution Width SD 54.3 fl (35.1-43.9); Red Blood Count 4.28 M/mm3 (4.2-5.4); White Blood Count 20.7 K/mm3 (4.4-11.0)
[2024-01-03 07:27] LABS: Blood Gas Specimen Type VEN; O2 Delivery Device BiPAP; PEEP 8; RR 12; SITE Not entered; VBG BASE EXCESS 7 mmol/L (-1.0-3.5); VBG Bicarbonate 34 mmol/L (22-26); VBG PO2 27 mmHg (25-40); VBG SO2 38 % (50-70); VBG TCO2 37 mmol/L (23-33); VBG pCO2 76.9 mmHg (41-51); VBG pH 7.26 (7.32-7.42)
[2024-01-03 07:31] LABS: Blood Gas Specimen Type VEN; O2 Delivery Device Not entered; SITE Not entered; VBG BASE EXCESS 6 mmol/L (-1.0-3.5); VBG Bicarbonate 33 mmol/L (22-26); VBG PO2 27 mmHg (25-40); VBG SO2 40 % (50-70); VBG TCO2 35 mmol/L (23-33); VBG pCO2 71.9 mmHg (41-51); VBG pH 7.27 (7.32-7.42)
[2024-01-03 07:41] LABS: Anion Gap -1 (5-15); BUN 22 mg/dL (7-18); BUN/Creat Ratio 29.6 RATIO (10-20); Calcium,Total 9.2 mg/dL (8.5-10.1); Chloride 108 mmol/L (98-107); Creatinine, Serum 0.74 mg/dL (0.55-1.02); EST Glomerular Filtration Rate 80 mL/min (>60); Est Glom Filt Rate - Afr Amer 97 mL/min (>60); Estimated Creatinine Clearance 62.35 ml/min; Glucose 104 mg/dL (74-106); Potassium 3.7 mmol/L (3.5-5.1); Sodium Level 141 mmol/L (136-145)
--- NOTE | 2024-01-03 08:00 | NURSING ---
PCU TERELETSKY PNEUMONIA, COPD EXAC, RESP FAILURE
[2024-01-03] MEDS: Piperacil/Tazobactam 4.5 GM in 0.9% Normal Saline (100mL MB+) 100 ML IV (08:31)
[2024-01-03 08:59] LABS: Lactic Acid 1.8 mmol/L (0.4-1.9)
[2024-01-03] MEDS: LORazepam 0.5 MG Tablet PO ×2 (10:19→20:49)
[2024-01-03] MEDS: Lactobacillis Acidophilus 1 CAP PO (10:19)
[2024-01-03] MEDS: predniSONE 10 MG Tablet PO (10:19)
[2024-01-03] MEDS: AcetaZOLAMIDE 250 MG Tablet PO ×2 (10:19→20:49)
[2024-01-03] MEDS: Metoprolol(XL)Succ 25 MG Tablet PO (10:20)
[2024-01-03] MEDS: Furosemide 40 MG Tablet PO (10:20)
[2024-01-03] MEDS: APIXABAN 5 MG TABLET PO ×2 (10:20→20:49)
[2024-01-03] MEDS: Docusate Sodium 100 MG Capsule PO ×2 (10:20→20:50)
[2024-01-03] MEDS: Pantoprazole Sodium 20 MG Tablet PO (10:20)
[2024-01-03] MEDS: Citalopram 20 MG Tablet PO (10:21)
[2024-01-03] MEDS: Ipratropium/Albuterol Sulfate 3 ML AMPUL.NEB INHALATION ×2 (11:04→19:02)
[2024-01-03] MEDS: Budesonide Respules 0.5 MG/2 ML AMPUL.NEB. INHALATION ×2 (11:04→22:46)
--- NOTE | 2024-01-03 11:54 | HP.PCM.HOS_ITS ---
HPI - General General Date of Admission: 01/03/24 Date of Service: 01/03/24 Chief Complaint: Shortness of breath HPI Narrative BERTO SIMPSON, is a 78 F who presents to the emergency room at [facility] from assisted living with complaints of increasing shortness of breath that began around 5 AM today. Patient has chronic hypoxic respiratory failure and normally wears BiPAP at night, according to documentation, she was refusing BiPAP at the facility. Patient usually is on 3 to 4 L of oxygen continuously at baseline. Workup in the emergency room included a CBC which was remarkable for a white blood cell count of 20.7, hemoglobin was 10, chemistry panel was essentially unremarkable, urinalysis was unremarkable. Patient had a chest x-ray performed which showed an infiltrate in the left lower lobe as well as the right lung base. There was elevation of the left hemidiaphragm which was chronic. Patient will be admitted to PCU, she is currently on BiPAP and she was given Zosyn in the ER under my direction due to concerns of comorbidities which the patient has including COPD and chronic hypoxic respiratory failure. [facility] Medical History DNR (do not resuscitate) CO2 narcosis Chronic anticoagulation Wears glasses Post-menopausal Hematoma History of steroid therapy Diabetes Uses wheelchair Walker as ambulation aid Arthritis Low iron Anemia DVT (deep venous thrombosis) Pulmonary embolism Injury of back Difficulty swallowing Non-smoker On home oxygen therapy Shortness of breath on exertion History of edema History of echocardiogram Cardiology follow-up encounter History of pacemaker History of CHF (congestive heart failure) History of atrial fibrillation History of irregular heartbeat Former smoker Abscess of left leg Skin necrosis Hematoma of left lower leg Wound abscess Elevated troponin 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 Essential hypertension AV block, complete Tachycardia-bradycardia syndrome Presence of permanent cardiac pacemaker (~10/12/20) Sleep apnea BiPAP (biphasic positive airway pressure) dependence History of pulmonary embolism History of recurrent deep vein thrombosis (DVT) Pulmonary hypertension Former tobacco use Atrial fibrillation Heart failure with preserved ejection fraction Chronic anticoagulation Venous insufficiency Pulmonary HTN History of pulmonary embolus (PE) History of DVT (deep vein thrombosis) Essential hypertension Dyslipidemia COPD (chronic obstructive pulmonary disease) Home Medications ?Medication ?Instructions ?Recorded ?Last Taken ?Type Lactobacillus acidophilus 1 cap PO DAILY eR[facility] 08/20/20 09/01/20 10:42 History acetazolamide 250 mg tablet 250 mg PO BID EDEMA 08/20/20 09/01/20 08:00 History albuterol sulfate 2.5 mg/3 mL 2.5 mg (3 mL) inhalation Q2H PRN 09/05/20 01/03/24 Rx (0.083 %) solution for nebulization PRN Shortness of Breath/Wheezing docusate sodium 100 mg capsule 100 mg PO BID 09/05/20 Unknown Rx ondansetron HCl 4 mg tablet 4 mg PO Q4H PRN Nausea 07/14/21 Unknown History vit C 250 mg-vit E 90 mg-zinc 40 1 tab PO BID vitami 07/14/21 Unknown History mg-copper 1 [id number] capsule (PreserVision AREDS-2) furosemide 20 mg tablet 20 mg PO DAILY diuretic 01/14/22 Unknown History acetaminophen 500 mg capsule 1,000 mg PO Q8H PRN Pain 04/14/22 Unknown History albuterol sulfate 90 mcg/actuation 2 puff inhalation Q4H PRN PRN 04/14/22 01/03/24 Rx aerosol inhaler (Ventolin HFA) Wheezing ##1 ipratropium 0.5 mg-albuterol 3 mg 3 ml inhalation Q4H PRN Wheezing 08/20/22 Unknown History (2.5 mg base)/3 mL nebulization soln calcium carbonate 600 mg PO DAILY vit 12/31/22 Unknown History cholecalciferol (vitamin D3) 50 50 mcg PO QHS vitami 12/31/22 Unknown History mcg (2,000 unit) tablet (Vitamin D3) citalopram 20 mg tablet 20 mg PO DAILY anxiety 12/31/22 Unknown History cyanocobalamin (vitamin B-12) 500 500 mcg PO DAILY vitamin 12/31/22 Unknown History mcg tablet dextromethorphan HBr 10 mg/5 mL 10 mg PO Q6H PRN Cough 12/31/22 Unknown History oral liquid ipratropium 0.5 mg-albuterol 3 mg 3 ml inhalation TID breathing 12/31/22 Unknown History (2.5 mg base)/3 mL nebulization treatment soln phenylephrine-shark liver 1 applic TX Q6H PRN hemorrhoids 12/31/22 Unknown History oil-mineral oil-petrolatum rectal ointment (Hemorrhoidal ointment) dextrose 40 % oral gel 15 g PO Q15M PRN hypoglycemia 02/08/23 Unknown History glucagon 1 mg solution for 1 mg subcut Q20M PRN hypoglycem 02/08/23 Unknown History injection (Glucagon Emergency Kit) gabapentin 300 mg capsule 300 mg PO QHS nerve pain 03/20/23 Unknown History azithromycin 250 mg tablet 250 mg PO QMWF #36 tabs 04/19/23 Unknown Rx prednisone 10 mg tablet 10 mg PO DAILY #90 tabs 04/19/23 Unknown Rx metoprolol succinate 25 mg 25 mg PO DAILY #90 tabs 09/20/23 Unknown Rx tablet,extended release 24 hr potassium chloride 20 mEq 40 meq PO BID supplement 09/20/23 Unknown History tablet,extended release apixaban 5 mg tablet (Eliquis) 5 mg PO BID blood thinner 10/01/23 Unknown History bisacodyl 10 mg rectal suppository 10 mg TX DAILY PRN constipation 10/01/23 Unknown History lorazepam 0.5 mg tablet (Ativan) 0.5 mg PO BID anxiety 10/01/23 Unknown History magnesium hydroxide 400 mg/5 mL 30 ml PO DAILY PRN constipation 10/01/23 Unknown History oral suspension (Milk of Magnesia) mineral oil (Fleet Mineral Oil 118 ml TX DAILY PRN constipation 10/01/23 Unknown History enema) pantoprazole 20 mg tablet,delayed 20 mg PO DAILY GERd 10/01/23 Unknown History release polyethylene glycol 3350 17 17 g PO DAILY PRN constipation 10/01/23 Unknown History gram/dose oral powder (Miralax) budesonide 1 mg/2 mL suspension 1 mg inhalation DAILY breathing 01/03/24 Unknown History for nebulization treatment melatonin 3 mg tablet 3 mg PO QHS 01/03/24 Unknown History Allergy/AdvReac Type Severity Reaction Status Date / Time amlodipine besylate (From AdvReac ANKLE AND Verified 01/03/24 06:54 [facility]) LEG EDEMA codeine AdvReac MENTAL Verified 01/03/24 06:54 STATUS CHANGE lisinopril AdvReac COUGH Verified 01/03/24 06:54 Family History Sister Heart disease Surgical History Hx of atrioventricular node ablation tailbone surgery History of cholecystectomy History of total hysterectomy Social History household members: none housing: fpc Smoking Status: Former smoker how long ago did patient quit smoking: Approxiomately 2003 alcohol intake: never substance use type: does not use caffeine: No ROS Constitutional Constitutional: Reports fatigue and weakness; Denies anorexia, change in weight, chills, fever(s) or night sweats Eyes Eyes: Denies blurry vision, change in vision, discharge from eye(s) or eye pain Cardiovascular Cardiovascular: Reports dyspnea on exertion; Denies chest pain, claudication, edema or palpitations Respiratory/Chest Respiratory/Chest: Reports shortness of breath at rest and shortness of breath with exertion; Denies cough or hemoptysis Gastrointestinal Gastrointestinal: Denies abdominal pain, constipation, diarrhea, hematemesis, hematochezia, melena, nausea or vomiting Genitourinary Genitourinary: Denies dysuria, hematuria, urinary frequency, urinary hesitancy, urinary incontinence or urinary urgency Musculoskeletal Musculoskeletal: Denies back pain, joint pain, joint stiffness, joint swelling, myalgias or neck pain Neurologic Neurologic: Denies abnormal gait, abnormal speech, dizziness, focal weakness, headache(s), loss of vision, numbness, other visual disturbances, paresthesias, syncope or tingling Psychiatric Psychiatric: Denies anxiety, cognitive impairment, depression, irritability, mood swings or suicidal ideation Endocrine Endocrinology: Denies change in body appearance, cold intolerance, excessive sweating, heat intolerance, polydipsia or polyuria Hematologic/Lymphatic Hematologic/Lymphatic: Denies none, anemia, easy bleeding, easy bruising or lymphadenopathy Allergic/Immunologic Allergic/Immunologic: Denies rhinitis, urticaria, eczemia or asthma Vital Signs Vital Signs Vital Signs: 01/03/24 06:43 01/03/24 06:51 01/03/24 06:54 Temperature 96.8 F L 96.7 F L Temperature Source Temporal Temporal Pulse Rate 60 60 Pulse Strength Respiratory Rate 23 H 28 H Respiratory Effort Short of Breath Labored Respiratory Depth Shallow Respiratory Pattern Tachypnea Blood Pressure 154/4 H 154/84 H Blood Pressure Mean 54 107 Blood Pressure Source Blood Pressure Position Blood Pressure Location Pulse Ox 95 95 Oxygen Delivery Method Nasal Cannula Nasal Cannula Nasal Cannula Oxygen Flow Rate (L/min) 4 4 4 Fraction of Inspired Oxygen (FIO2) 01/03/24 06:57 01/03/24 06:57 01/03/24 07:01 Temperature 98 F 98 F Temperature Source Temporal Temporal Pulse Rate 60 60 Pulse Strength Respiratory Rate 30 H 30 H Respiratory Effort Respiratory Depth Respiratory Pattern Blood Pressure 154/84 H 154/84 H Blood Pressure Mean 107 107 Blood Pressure Source Blood Pressure Position Blood Pressure Location Pulse Ox 96 96 95 Oxygen Delivery Method Bi-pap Bi-pap Nasal Cannula Oxygen Flow Rate (L/min) 4 Fraction of Inspired Oxygen (FIO2) 01/03/24 07:01 01/03/24 07:57 01/03/24 07:57 Temperature 98 F 98 F Temperature Source Temporal Temporal Pulse Rate 60 60 60 Pulse Strength Respiratory Rate 31 H 18 28 H Respiratory Effort Respiratory Depth Respiratory Pattern Tachypnea Blood Pressure 130/62 H 130/62 H Blood Pressure Mean 84 84 Blood Pressure Source Blood Pressure Position Blood Pressure Location Pulse Ox 96 98 98 Oxygen Delivery Method Bi-pap Bi-pap Oxygen Flow Rate (L/min) Fraction of Inspired Oxygen (FIO2) 35 01/03/24 08:00 01/03/24 08:09 01/03/24 09:05 Temperature 98 F 98 F 98 F Temperature Source Temporal Temporal Pulse Rate 60 60 60 Pulse Strength Respiratory Rate 30 H 30 H 18 Respiratory Effort Respiratory Depth Respiratory Pattern Blood Pressure 130/62 H 130/62 H 126/62 H Blood Pressure Mean 84 84 83 Blood Pressure Source Monitor Blood Pressure Position Semi-Fowlers Blood Pressure Location Right Arm Pulse Ox 99 98 99 Oxygen Delivery Method Bi-pap Bi-pap Oxygen Flow Rate (L/min) Fraction of Inspired Oxygen (FIO2) 35 01/03/24 09:11 01/03/24 09:11 01/03/24 09:15 Temperature Temperature Source Pulse Rate 60 Pulse Strength Respiratory Rate 34 H Respiratory Effort Normal Non-Labored Respiratory Depth Normal Respiratory Pattern Tachypnea Normal Blood Pressure Blood Pressure Mean Blood Pressure Source Blood Pressure Position Blood Pressure Location Pulse Ox 97 97 Oxygen Delivery Method Nasal Cannula Bi-pap Oxygen Flow Rate (L/min) 4 Fraction of Inspired Oxygen (FIO2) 35 35 01/03/24 10:16 01/03/24 10:20 01/03/24 10:36 Temperature Temperature Source Pulse Rate 60 60 Pulse Strength Normal (2+) Respiratory Rate Respiratory Effort Respiratory Depth Respiratory Pattern Blood Pressure 135/73 H Blood Pressure Mean 93 Blood Pressure Source Monitor Blood Pressure Position Semi-Fowlers Blood Pressure Location Right Arm Pulse Ox Oxygen Delivery Method Oxygen Flow Rate (L/min) Fraction of Inspired Oxygen (FIO2) 01/03/24 11:25 01/03/24 11:26 Temperature Temperature Source Pulse Rate 61 62 Pulse Strength Respiratory Rate 28 H 28 H Respiratory Effort Respiratory Depth Respiratory Pattern Tachypnea Tachypnea Blood Pressure Blood Pressure Mean Blood Pressure Source Blood Pressure Position Blood Pressure Location Pulse Ox 96 Oxygen Delivery Method Oxygen Flow Rate (L/min) Fraction of Inspired Oxygen (FIO2) 35 Weight Weight: 91.5 kg Body Mass Index (BMI) 34.6 Physical Exam Const alert, oriented x3 and no apparent distress General Appearance: cooperative, well kempt and well developed Orientation / Consciousness: awake, oriented to person, oriented to place and oriented to time HEENT normocephalic, head/scalp atraumatic, hearing grossly normal bilaterally and moist oral mucous membranes Eyes PERRL, EOMs intact bilaterally and conjunctivae normal Neck supple, no JVD, thyroid normal and no carotid bruits General: trachea midline Resp normal respiratory effort, no retractions and no use of accessory muscles Resp Narrative: Breath sounds were diminished bilaterally Auscultation: Negative for rales, rhonchi or wheezes Cardio regular rate, regular rhythm, S1 normal heart sound, S2 normal heart sound, no murmurs, no rub and no gallops GI normal to inspection, nondistended, normoactive bowel sounds, soft to palpation, non-tender and non-distended Extremity no clubbing, cyanosis or edema Skin no rashes or lesions noted General Skin Exam: no breakdown Neuro oriented x3, CN's II-XII intact bilaterally, moves all extremities, no focal motor deficits and no sensory deficits noted Sensorium / Orientation: awake and alert Speech: speech normal Psych affect normal Results Lab / Micro Data 01/03/24 07:10 01/03/24 07:10 Labs: Laboratory Results - last 24 hr 01/03/24 07:10: WBC 20.7 H, RBC 4.28, Hgb 10.0 L, Hct 38.1, MCV 89.0, MCH 23.4 L , MCHC 26.2 L, RDW Std Deviation 54.3 H, RDW Coeff of Laura 16.7 H, Plt Count 326, MPV 11.5, Immature Gran % (Auto) 0.600, Neut % (Auto) 83.3 H, Lymph % (Auto) 9.9 L, [place] % (Auto) 5.1, Eos % (Auto) 0.9, Baso % (Auto) 0.2, Absolute Neuts (auto) 17.2 H, Absolute Lymphs (auto) 2.05, Nucleated RBC % 0.1, Sodium 141, Potassium 3.7, Chloride 108 H, Carbon Dioxide 34.0 H, Anion Gap -1 L, BUN 22 H, Creatinine 0.74, Estim Creat Clear Calc 62.35, Est GFR (MDRD) Af Amer 97, Est GFR (MDRD) Non-Af 80, BUN/Creatinine Ratio 29.6 H, Glucose 104, Calcium 9.2 01/03/24 08:10: Lactic Acid 1.8 Micro: Microbiology 01/03/24 06:59 Mucosa - Nose SARS-CoV-2, Influenza & RSV (PCR) - Final ABG Data ABG results: ABG 01/03/24 01/03/24 07:21 07:28 Specimen Type AJ AJ Sample Site Not entered Not entered O2 % 35.0 VBG pH 7.26 L 7.27 L VBG pO2 27 27 VBG HCO3 34 H 33 H VBG Total CO2 37 H 35 H VBG O2 Sat (Calc) 38 L 40 L VBG Base Excess 7 H 6 H POC Mix VBG pCO2 Pt Tmp 76.9 H* 71.9 H* Respiration Rate 12 O2 Delivery Device BiPAP Not entered POC PEEP 8 Crit Call To/Read Back Yes Yes Blood Gas Notified Whom dr cohen Blood Gas Notified Time 07:22:57 Imaging Radiology Impression Chest X-Ray 01/03/24 06:51 IMPRESSION: Infiltrate in the left lower lobe as well as at the right lung base. Stable elevation of the left hemidiaphragm. Electronically Signed: Nathen Dickinson MD at 8:06 EDT , Assessment & Plan Assessment/Plan (1) Pneumonia: PLAN: Plan 1. Bilateral community-acquired pneumonia-patient will remain on IV Zosyn, she was admitted to PCU, she will receive aerosol treatments #2 chronic hypoxic respiratory failure-pulse ox will be monitored, patient is currently on BiPAP for comfort #3 chronic obstructive pulmonary disease-patient is on maintenance prednisone 10 mg daily, I have elected to keep her at this dosage, she does use budesonide aerosols at assisted living, I have placed her on these also in addition to DuoNebs. #4 obstructive sleep apnea-again patient is supposed to wear BiPAP while sleeping, she will be encouraged to do so #5 chronic anticoagulation due to past history of VTE-patient is on Eliquis #6 chronic diastolic congestive heart failure-I have elected to place the patient on 40 of Lasix daily instead of her usual 20 mg dosage. #7 chronic depression-patient is on Celexa Total clinical time spent by myself addressing the patient's medical issues, reviewing all of her data, and collaborating with patient's care team: 75 minutes Charges/Coding Visit Charges Inpatient E&M: 67673 Init Hosp L3
[2024-01-03] MEDS: 0.9% Saline Lock 10 ML Syringe IV (13:40)
[2024-01-03] MEDS: Piperacil/Tazobactam 3.375 GM in 0.9% Normal Saline (50mL MB+) 50 ML IV ×2 (13:40→20:56)
--- NOTE | 2024-01-03 14:49 | CASEMGMT ---
Discharge Planning Updates sent to [place] via [facility]. Cecily Snyder DC Planning Asst.
--- NOTE | 2024-01-03 15:59 | CHAPLAIN ---
Type of Pastoral Visit _x__ Initial Visit ___ Follow-up Visit ___ On-call Visit ___ General Patient Visit ___ Spiritual Assessment ___ Family Conference ___ Bereavement ___ Rapid Response ___ Code Blue ___ Other (describe below) Pastoral Care Referral From _x__ Patient ___ Family ___ Nurse ___ Physician ___ Steel Worker ___ Middle Stitcher ___ Other (describe below) Sacrament/Intervention ___ Active listening ___ Anointing ___ Christian ___ Bereavement ___ Communion ___ Teresa exploration ___ ___ Life review _x__ Prayer ___ Reconciliation ___ Sacrament of Sick _x__ Supportive presence ___ Wedding ___ Other (describe below) Pastoral Comments patient had a bi-pap but was awake; pt states her medical condition; offer of a brief prayer and acknowledgement of any other needs; pt responds that a prayer would be welcomed and a visit at another time would be fine
[2024-01-03] MEDS: Gabapentin 300 MG Capsule PO (20:49)
[2024-01-03] MEDS: MELATONIN 3 MG TABLET PO (20:49)
[2024-01-03] MEDS: Albuterol 2.5 MG/3 ML VIAL.NEB. INHALATION (22:46)
[2024-01-04] VITALS (13 sets, daily range): BP systolic 101–119; BP diastolic 51–64; PULSE 55–65; RESP 12–24; TEMP 35.8–36.8; O2SAT 97–100
[2024-01-04] MEDS: Albuterol 2.5 MG/3 ML VIAL.NEB. INHALATION (03:38)
--- NOTE | 2024-01-04 05:55 | RAD_ITS ---
STUDY: X-RAY CHEST REASON FOR EXAM: Female, 78 years old. Pneumonia TECHNIQUE: Single AP portable view of the chest. COMPARISON: Comparison is made with prior study dated January 03, 2024. FINDINGS: EKG electrodes are seen. Persistent left lower lobe infiltrate although there has been improvement. Improved aeration at the right lung base as well. Blunting of the left costophrenic angle. A left-sided unipolar pacemaker is seen. Normal mediastinum and betty. Normal visualized pulmonary arteries. There is atherosclerotic calcification of the aortic arch with tortuosity. There are degenerative changes of the visualized thoracic spine. Normal visualized ribs, clavicles, and shoulders. There is no demonstrated abnormality of the visualized soft tissue structures of the upper abdomen. RAD/Chest 1 View (Portable) IMPRESSION: Persistent left lobe infiltrate although this has improved. Blunting left costophrenic angle. Mild residual changes persist at the right lung base. Electronically Signed: Nathen Dickinson MD at 7:58 EDT ,
[2024-01-04] MEDS: Piperacil/Tazobactam 3.375 GM in 0.9% Normal Saline (50mL MB+) 50 ML IV ×3 (06:17→21:44)
[2024-01-04] MEDS: Budesonide Respules 0.5 MG/2 ML AMPUL.NEB. INHALATION ×2 (07:13→19:20)
[2024-01-04] MEDS: Ipratropium/Albuterol Sulfate 3 ML AMPUL.NEB INHALATION ×4 (07:13→23:36)
[2024-01-04 07:25] LABS: Absolute Lymphocyte Count 1.26 X10^3/uL (0.83-4.51); Absolute Neutrophil Count 16.2 X10^3/uL (2.0-7.7); Basophil# 0.03 X10^3/uL; Basophil% 0.2 % (0-1); Eosinophil# 0.01 X10^3/uL; Eosinophils% 0.1 % (0-5); Hematocrit 32.5 % (37-47); Hemoglobin 8.6 g/dL (12.0-15.0); Lymphocyte # 1.26 X10^3/ul (0.83-4.51); Lymphocyte % 6.7 % (19-41); Mean Corp Hgb Conc 26.5 g/dL (32-36); Mean Corpuscular Hgb 23.4 pg (27.0-32.0); Mean Corpuscular Volume 88.6 fL (81-99); Mean Platelet Vol. 11.9 fl (6.2-12.0); Monocyte# 1.09 X10^3/uL; Monocyte% 5.8 % (0-10); NRBC Flagged by Analyzer 0 % (0-5); Neutrophil # 16.24 X10^3/uL (2.7-7.7); Neutrophil % 86.6 % (47-70); Platelet Count 276 K/mm3 (150-450); RBC Distribution Width CV 16.6 % (11.6-14.6); RBC Distribution Width SD 54.4 fl (35.1-43.9); Red Blood Count 3.67 M/mm3 (4.2-5.4); White Blood Count 18.7 K/mm3 (4.4-11.0)
[2024-01-04 07:49] LABS: Anion Gap 7 (5-15); BUN 27 mg/dL (7-18); Calcium,Total 8.6 mg/dL (8.5-10.1); Chloride 106 mmol/L (98-107); Creatinine, Serum 0.61 mg/dL (0.55-1.02); EST Glomerular Filtration Rate 100 mL/min (>60); Est Glom Filt Rate - Afr Amer 120 mL/min (>60); Estimated Creatinine Clearance 61.47 ml/min; Glucose 113 mg/dL (74-106); Potassium 3.4 mmol/L (3.5-5.1); Sodium Level 143 mmol/L (136-145)
[2024-01-04] MEDS: predniSONE 10 MG Tablet PO (08:53)
[2024-01-04] MEDS: Citalopram 20 MG Tablet PO (08:53)
[2024-01-04] MEDS: Furosemide 40 MG Tablet PO ×2 (08:53→08:54)
[2024-01-04] MEDS: AcetaZOLAMIDE 250 MG Tablet PO ×2 (08:53→21:43)
[2024-01-04] MEDS: Metoprolol(XL)Succ 25 MG Tablet PO (08:53)
[2024-01-04] MEDS: LORazepam 0.5 MG Tablet PO ×2 (08:53→21:42)
[2024-01-04] MEDS: Pantoprazole Sodium 20 MG Tablet PO (08:54)
[2024-01-04] MEDS: Lactobacillis Acidophilus 1 CAP PO (08:54)
[2024-01-04] MEDS: APIXABAN 5 MG TABLET PO ×2 (08:54→21:44)
[2024-01-04] MEDS: Docusate Sodium 100 MG Capsule PO ×2 (08:54→21:43)
--- NOTE | 2024-01-04 09:45 | CASEMGMT ---
YAO met with patient as she is from [place]. Patient confirmed her plan is to return to [place]. SW asked patient if she would like to do therapy. Patient said she was doing therapy for a little while at [place], but then insurance stopped paying for it. Regla Rosenberg CASINO DEALER CARMITA
--- NOTE | 2024-01-04 12:06 | PCM.PN.HOSP ---
Reason for Visit Reason for Visit: Diagnoses Pneumonia, unspecified organism (01/03/24) Subjective Subjective No acute events overnight. Saw patient at bedside this morning. Patient was sleeping on my arrival to the room. Upon awakening, patient reported feeling fatigued but otherwise was breathing comfortably on 4 L nasal cannula at rest. She reports occasional continued nonproductive cough but states the wheezing has improved today. She denies any fevers or chills. No other acute concerns today. Objective Data Objective Data Vital Signs: Vital Signs Temp Pulse Resp BP Pulse Ox O2 Del Method O2 Flow Rate 97.6 F L 60 18 101/62 98 Nasal Cannula 3 01/04/24 08:50 01/04/24 08:53 01/04/24 08:50 01/04/24 08:50 01/04/24 08:50 01/04/24 08:50 01/04/24 08:50 FiO2 30 01/04/24 03:43 Oxygen Flow Rate (L/min) 3 Oxygen Delivery Method Nasal Cannula Weight: 91.5 kg Body Mass Index (BMI) 34.6 Intake & Output: Intake and Output for Last 24 Hours 01/02/24 01/03/24 01/04/24 23:59 23:59 23:59 Intake Total 1010 / 1010 100 / 100 Balance 1010 / 1010 100 / 100 Lab / Micro Data 01/04/24 06:35 01/04/24 06:35 Labs: Laboratory Results - last 24 hr 01/04/24 06:35: WBC 18.7 H, RBC 3.67 L, Hgb 8.6 L, Hct 32.5 L, MCV 88.6, MCH 23.4 L, MCHC 26.5 L, RDW Std Deviation 54.4 H, RDW Coeff of Laura 16.6 H, Plt Count 276, MPV 11.9, Immature Gran % (Auto) 0.600, Neut % (Auto) 86.6 H, Lymph % (Auto) 6.7 L, [place] % (Auto) 5.8, Eos % (Auto) 0.1, Baso % (Auto) 0.2, Absolute Neuts (auto) 16.2 H, Absolute Lymphs (auto) 1.26, Nucleated RBC % 0, Sodium 143, Potassium 3.4 L, Chloride 106, Carbon Dioxide 30.0, Anion Gap 7, BUN 27 H, Creatinine 0.61, Estim Creat Clear Calc 61.47, Est GFR (MDRD) Af Amer 120, Est GFR (MDRD) Non-Af 100, BUN/Creatinine Ratio 44.0 H, Glucose 113 H, Calcium 8.6 Micro: Microbiology 01/04/24 08:50 Mucosa - Nose Respiratory Panel (PCR) - Final 01/03/24 06:59 Mucosa - Nose SARS-CoV-2, Influenza & RSV (PCR) - Final Radiography Diagnostic Testing: Radiology Impression Chest X-Ray 01/03/24 06:51 IMPRESSION: Infiltrate in the left lower lobe as well as at the right lung base. Stable elevation of the left hemidiaphragm. Electronically Signed: Nathen Dickinson MD at 8:06 EDT , Chest X-Ray 01/04/24 05:55 IMPRESSION: Persistent left lobe infiltrate although this has improved. Blunting left costophrenic angle. Mild residual changes persist at the right lung base. Electronically Signed: Nathen Dickinson MD at 7:58 EDT , Physical Exam Const alert, oriented x3 and no apparent distress Constitutional Narrative: Elderly female, obese, mildly fatigued appearing, otherwise laying comfortably in bed, conversing normally, no acute distress. General Appearance: cooperative and comfortable HEENT normocephalic, head/scalp atraumatic, hearing grossly normal bilaterally, nasal mucous membranes and turbinates normal and moist oral mucous membranes Eyes PERRL, EOMs intact bilaterally and conjunctivae normal Neck full ROM Chest inspection of chest normal Resp normal respiratory effort and no use of accessory muscles Resp Narrative: Mild to moderately decreased breath sounds bilaterally, worse at lung bases. No wheezing or crackles noted. Breathing comfortably on 4 L nasal cannula at rest with good saturations. Cardio regular rate, regular rhythm, no murmurs and peripheral pulses 2+ throughout GI normal to inspection, nondistended, normoactive bowel sounds, soft to palpation, non-tender and non-distended Back/Spine normal ROM Extremity normal to inspection, full ROM and no pedal edema Skin no rashes or lesions noted Neuro moves all extremities and no focal motor deficits Psych mental status grossly normal Assessment & Plan Assessment/Plan (1) Pneumonia: (2) Chronic hypoxemic respiratory failure: PLAN: Plan Patient is an 78-year-old female who presented [facility] ED on 01/03/2024 from a her longterm for nonproductive cough and worsening shortness of breath. 1. Bilateral community-acquired pneumonia with unknown organism ? Chest x-ray on admit showed an infiltrate in the left lower lobe as well as right lung base. WBC count elevated at 20. Afebrile and hemodynamically stable, did not meet sepsis criteria. COVID/flu/RSV and respiratory PCR panel negative. Not able to produce sputum sample to this point. Blood cultures pending. Continue IV Zosyn for now. Patient appears close to baseline, if remains stable tomorrow likely can de-escalate to p.o. antibiotics and plan to discharge back to nursing facility. 2. COPD with chronic hypoxic respiratory failure ? On 3 to 4 L O2 at baseline. Slightly higher requirements on admit, now back to baseline. Continue home prednisone 10 mg daily, no need to treat for COPD exacerbation. Continue home inhalers. 3. Chronic diastolic heart failure ? Increased home Lasix from 20 mg to 40 mg daily while inpatient to assist with additional volume removal. Likely okay to de-escalate back to home dosing on discharge. Continue home Toprol. Chronic medical conditions: ? Obesity: BMI 34 on admit. Complicates hospital course, care and prognosis. ? ANKUSH: Continue home BiPAP at night. ? 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 ? Paroxysmal A-fib: Sinus rhythm on admit. Continue home Eliquis and Toprol. ? Anxiety/depression: Stable. Continue home citalopram and Ativan. ? Neuropathy: Continue home gabapentin. ? GERD: Continue home PPI. DVT prophylaxis: Not indicated, on therapeutic Eliquis CODE STATUS: DNR CCA, DNI Expected disposition: Back to longterm, 1 to 2 days Total clinical time spent by myself addressing the patient's medical issues, reviewing all the data, and collaborating with patient's care team: 35 minutes. Charges/Coding Visit Charges Inpatient E&M: 42346 Subs Hosp L2
[2024-01-04] MEDS: MELATONIN 3 MG TABLET PO (21:44)
[2024-01-04] MEDS: Gabapentin 300 MG Capsule PO (21:44)
--- NOTE | 2024-01-04 23:02 | CPS ---
pt switched over to a sleep lab machine for comfort. 27/02 2L bleed in. V60 still in room just in case pt needs more acute settings.
[2024-01-05] VITALS (11 sets, daily range): BP systolic 117–128; BP diastolic 57–68; PULSE 60–61; RESP 12–24; TEMP 36.1–36.5; O2SAT 96–98
[2024-01-05] MEDS: Ipratropium/Albuterol Sulfate 3 ML AMPUL.NEB INHALATION ×5 (03:44→19:01)
[2024-01-05] MEDS: Piperacil/Tazobactam 3.375 GM in 0.9% Normal Saline (50mL MB+) 50 ML IV (05:00)
[2024-01-05 06:14] LABS: Hematocrit 32.3 % (37-47); Hemoglobin 8.6 g/dL (12.0-15.0); Mean Corp Hgb Conc 26.6 g/dL (32-36); Mean Corpuscular Hgb 23.4 pg (27.0-32.0); Mean Corpuscular Volume 87.8 fL (81-99); Platelet Count 259 K/mm3 (150-450); RBC Distribution Width CV 16.8 % (11.6-14.6); Red Blood Count 3.68 M/mm3 (4.2-5.4); White Blood Count 15.4 K/mm3 (4.4-11.0)
[2024-01-05 06:40] LABS: Anion Gap 6 (5-15); BUN 28 mg/dL (7-18); BUN/Creat Ratio 41.4 RATIO (10-20); Calcium,Total 8.6 mg/dL (8.5-10.1); Chloride 105 mmol/L (98-107); Creatinine, Serum 0.68 mg/dL (0.55-1.02); EST Glomerular Filtration Rate 89 mL/min (>60); Est Glom Filt Rate - Afr Amer 108 mL/min (>60); Estimated Creatinine Clearance 61.47 ml/min; Glucose 85 mg/dL (74-106); Sodium Level 143 mmol/L (136-145)
[2024-01-05] MEDS: Budesonide Respules 0.5 MG/2 ML AMPUL.NEB. INHALATION ×2 (07:24→19:01)
[2024-01-05] MEDS: APIXABAN 5 MG TABLET PO (09:28)
[2024-01-05] MEDS: Lactobacillis Acidophilus 1 CAP PO (09:28)
[2024-01-05] MEDS: Pantoprazole Sodium 20 MG Tablet PO (09:28)
[2024-01-05] MEDS: Docusate Sodium 100 MG Capsule PO (09:28)
[2024-01-05] MEDS: Citalopram 20 MG Tablet PO (09:28)
[2024-01-05] MEDS: LORazepam 0.5 MG Tablet PO (09:28)
[2024-01-05] MEDS: AcetaZOLAMIDE 250 MG Tablet PO (09:28)
[2024-01-05] MEDS: Metoprolol(XL)Succ 25 MG Tablet PO (09:28)
[2024-01-05] MEDS: predniSONE 10 MG Tablet PO (09:29)
[2024-01-05] MEDS: Potassium Chloride Oral Soln 20 MEQ/15 ML UDC 60 MEQ PO (09:34)
--- NOTE | 2024-01-05 11:03 | TREXTCAR_ITS ---
Diet Diet Order/Speech Therapy: 01/03/24 08:51 Diet: Cardiac - Heart Healthy Food consistency:: Regular Liquid Consistency:: Regular/Thin Routine Orders/Code Status O2 Liters per Minute: 3-4 O2 Frequency: Continuous Keep PO Greater than or Equal to (%): 88 Code Status: DNRCC-A (DO NOT INTUBATE) Wound(s) LLE: Wound Type: Scab Therapies Weight Bearing: Full weight bearing Physical Therapy: Eval and Treat Occupational Therapy: Eval and Treat Problem/Diagnosis (1) Pneumonia: Status: Acute Code(s): J18.9 - Pneumonia, unspecified organism (2) Chronic hypoxemic respiratory failure: Status: Chronic Code(s): J96.11 - Chronic respiratory failure with hypoxia Plan Patient is an 78-year-old female who presented [facility] ED on 01/03/2024 from her [place] [facility] for nonproductive cough and worsening shortness of breath. Hospital course as noted below. Discharged back to [place] [facility] in stable condition on 01/04. 1. Bilateral community-acquired pneumonia with unknown organism, improving Chest x-ray on admit showed an infiltrate in the left lower lobe as well as right lung base. WBC count elevated at 20. Afebrile and hemodynamically stable, did not meet sepsis criteria. COVID/flu/RSV and respiratory PCR panel negative. Not able to produce sputum sample. Blood cultures with no growth at 48 hours. ? Treated with IV Zosyn while inpatient with improvement in symptoms and in leukocytosis. Improved back to baseline oxygen status by 01/03. Discharged on Augmentin to complete 7-day course of antibiotics total, stop date 01/08. 2. COPD with chronic hypoxic respiratory failure ? On 3 to 4 L O2 at baseline. Slightly higher requirements on admit, back to baseline by hospital day 2. Continue home prednisone 10 mg daily, no need to treat for COPD exacerbation. Continue home inhalers. 3. Chronic diastolic heart failure ? Increased home Lasix from 20 mg to 40 mg daily while inpatient to assist with additional volume removal. De-escalated back to home dosing on discharge. Continue home Toprol. Chronic medical conditions: ? Obesity: BMI 34 on admit. Complicated hospital course, care and prognosis. ? ANKUSH: Continue home BiPAP at night. ? 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 ? Paroxysmal A-fib: Sinus rhythm on admit. Continue home Eliquis and Toprol. ? Anxiety/depression: Stable. Continue home citalopram and Ativan. ? Neuropathy: Continue home gabapentin. ? GERD: Continue home PPI. Total clinical time spent by myself addressing the patient's medical issues, reviewing all the data, and collaborating with patient's care team: 35 minutes. Allergies/Procedures Done in Hospital Allergies amlodipine besylate (From [facility]) Adverse Reaction (Verified 01/03/24 06:54) ANKLE AND LEG EDEMA RESOLVED OFF MED-PER PCP PAPERWORK codeine Adverse Reaction (Verified 01/03/24 06:54) MENTAL STATUS CHANGE lisinopril Adverse Reaction (Verified 01/03/24 06:54) COUGH Procedures: EKG and - (Chest x-ray x 2) Type of Care/Length of Stay Estimated LOS: More Than 30 Days Type of Care Needed: LTAC Rehab Potential: Fair Prognosis: Fair Additional Orders/Day of Discharge H&P will serve as current which was dated: 01/03/24 Day of Discharge: 01/05/24 Discharge Plan Admission Admit Date/Time: 01/03/24 08:08 Primary Reason for Your Visit: Cough with wheezing Attending Provider: Vaibhav Canales Primary Care Provider: Tor Lucia Consulting Providers: Reji Holt Discharge Orders/Prescriptions Prescriptions: New amoxicillin-pot clavulanate 875-125 mg tablet 1 tab PO BID 4 Days Qty: 8 0RF Continued furosemide 20 mg tablet 20 mg PO DAILY Glucagon Emergency Kit (human) 1 mg recon soln 1 mg subcut Q20M PRN (Reason: hypoglycem) Rx Instructions: until target blood sugar attained dextrose 40 % gel 15 g PO Q15M PRN (Reason: hypoglycemia) Rx Instructions: until symptoms of low blood sugar are controlled prednisone 10 mg tablet 10 mg PO DAILY Qty: 90 3RF acetazolamide 250 MG tablet 250 mg PO BID Lactobacillus acidophilus 1 EACH capsule 1 cap PO DAILY albuterol sulfate 2.5 MG/3 ML solution for nebulization 2.5 mg INHALATION Q2H PRN PRN (Reason: Shortness of Breath/Wheezing) 0RF docusate sodium 100 MG capsule 100 mg PO BID 0RF ondansetron HCl 4 mg Tablet 4 mg PO Q4H PRN (Reason: Nausea) PreserVision AREDS-2 250-90-40-1 mg Capsule 1 tab PO BID acetaminophen 500 mg Capsule 1,000 mg PO Q8H PRN (Reason: Pain) albuterol sulfate [Ventolin HFA] 90 mcg/actuation HFA aerosol inhaler 2 puff inhalation Q4H PRN PRN (Reason: Wheezing) Qty: 1 0RF ipratropium-albuterol 0.5 mg-3 mg(2.5 mg base)/3 mL Solution For Nebulization 3 ml INHALATION Q4H PRN (Reason: Wheezing) ipratropium-albuterol 0.5 mg-3 mg(2.5 mg base)/3 mL Solution For Nebulization 3 ml INHALATION TID dextromethorphan HBr 10 mg/5 mL Liquid 10 mg PO Q6H PRN (Reason: Cough) calcium carbonate 600 mg calcium (1,500 mg) Tablet 600 mg PO DAILY citalopram 20 mg tablet 20 mg PO DAILY cyanocobalamin (vitamin B-12) 500 mcg Tablet 500 mcg PO DAILY Hemorrhoidal Ointment 1 applic RI Q6H PRN (Reason: hemorrhoids) cholecalciferol (vitamin D3) [Vitamin D3] 50 mcg (2,000 unit) Tablet 50 mcg PO QHS gabapentin 300 mg capsule 300 mg PO QHS bisacodyl 10 mg suppository 10 mg RI DAILY PRN (Reason: constipation) Eliquis 5 mg tablet 5 mg PO BID mineral oil [Fleet Mineral Oil] Enema 118 ml RI DAILY PRN (Reason: constipation) Rx Instructions: discard any unused portion lorazepam [Ativan] 0.5 mg tablet 0.5 mg PO BID magnesium hydroxide [Milk of Magnesia] 400 mg/5 mL suspension 30 ml PO DAILY PRN (Reason: constipation) polyethylene glycol 3350 [Miralax] 17 gram/dose powder 17 g PO DAILY PRN (Reason: constipation) pantoprazole 20 mg tablet,delayed release (DR/EC) 20 mg PO DAILY melatonin 3 mg tablet 3 mg PO QHS budesonide 1 mg/2 mL suspension for nebulization 1 mg inhalation DAILY metoprolol succinate 25 mg tablet extended release 24 hr 25 mg PO DAILY Qty: 90 3RF potassium chloride 20 mEq tablet extended release 40 meq PO BID Held azithromycin 250 mg tablet 250 mg PO QMWF Qty: 36 0RF Hold Instructions: Resume on 06/26/24. 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
--- NOTE | 2024-01-05 11:03 | PCM.DC.SUM ---
Providers Date of Admission: 01/03/24 Date of Discharge: 01/05/24 Primary Care Physician: Dr. Tor Lucia MD Reason For Visit: PNEUMONIA, CHRONIC RESPIRATORY FAILURE Diagnosis Discharge Diagnosis (1) Pneumonia: Status: Acute Code(s): J18.9 - Pneumonia, unspecified organism (2) Chronic hypoxemic respiratory failure: Status: Chronic Code(s): J96.11 - Chronic respiratory failure with hypoxia Medications at Discharge Home Medications Lactobacillus acidophilus 1 cap PO DAILY [facility] 08/20/20 acetazolamide 250 mg tablet 250 mg PO BID EDEMA 08/20/20 albuterol sulfate 2.5 mg/3 mL (0.083 %) solution for nebulization 2.5 mg (3 mL) inhalation Q2H PRN PRN Shortness of Breath/Wheezing 09/05/20 docusate sodium 100 mg capsule 100 mg PO BID constipation 09/05/20 ondansetron HCl 4 mg tablet 4 mg PO Q4H PRN Nausea 07/14/21 vit C 250 mg-vit E 90 mg-zinc 40 mg-copper 1 [id number] capsule (PreserVision AREDS-2) 1 tab PO BID vitami 07/14/21 furosemide 20 mg tablet 20 mg PO DAILY diuretic 01/14/22 acetaminophen 500 mg capsule 1,000 mg PO Q8H PRN Pain 04/14/22 albuterol sulfate 90 mcg/actuation aerosol inhaler (Ventolin HFA) 2 puff inhalation Q4H PRN PRN Wheezing ##1 04/14/22 ipratropium 0.5 mg-albuterol 3 mg (2.5 mg base)/3 mL nebulization soln 3 ml inhalation Q4H PRN Wheezing 08/20/22 calcium carbonate 600 mg PO DAILY vit 12/31/22 cholecalciferol (vitamin D3) 50 mcg (2,000 unit) tablet (Vitamin D3) 50 mcg PO QHS vitami 12/31/22 citalopram 20 mg tablet 20 mg PO DAILY anxiety 12/31/22 cyanocobalamin (vitamin B-12) 500 mcg tablet 500 mcg PO DAILY vitamin 12/31/22 dextromethorphan HBr 10 mg/5 mL oral liquid 10 mg PO Q6H PRN Cough 12/31/22 ipratropium 0.5 mg-albuterol 3 mg (2.5 mg base)/3 mL nebulization soln 3 ml inhalation TID breathing treatment 12/31/22 phenylephrine-shark liver oil-mineral oil-petrolatum rectal ointment (Hemorrhoidal ointment) 1 applic AL Q6H PRN hemorrhoids 12/31/22 dextrose 40 % oral gel 15 g PO Q15M PRN hypoglycemia 02/08/23 glucagon 1 mg solution for injection (Glucagon Emergency Kit) 1 mg subcut Q20M PRN hypoglycem 02/08/23 gabapentin 300 mg capsule 300 mg PO QHS nerve pain 03/20/23 azithromycin 250 mg tablet 250 mg PO QMWF #36 tabs 04/19/23 prednisone 10 mg tablet 10 mg PO DAILY steroid #90 tabs 04/19/23 metoprolol succinate 25 mg tablet,extended release 24 hr 25 mg PO DAILY blood pressure and heart rate #90 tabs 09/20/23 potassium chloride 20 mEq tablet,extended release 40 meq PO BID supplement 09/20/23 apixaban 5 mg tablet (Eliquis) 5 mg PO BID blood thinner 10/01/23 bisacodyl 10 mg rectal suppository 10 mg AL DAILY PRN constipation 10/01/23 lorazepam 0.5 mg tablet (Ativan) 0.5 mg PO BID anxiety 10/01/23 magnesium hydroxide 400 mg/5 mL oral suspension (Milk of Magnesia) 30 ml PO DAILY PRN constipation 10/01/23 mineral oil (Fleet Mineral Oil enema) 118 ml AL DAILY PRN constipation 10/01/23 pantoprazole 20 mg tablet,delayed release 20 mg PO DAILY GERd 10/01/23 polyethylene glycol 3350 17 gram/dose oral powder (Miralax) 17 g PO DAILY PRN constipation 10/01/23 budesonide 1 mg/2 mL suspension for nebulization 1 mg inhalation DAILY breathing treatment 01/03/24 melatonin 3 mg tablet 3 mg PO QHS sleep 01/03/24 amoxicillin 875 mg-potassium clavulanate 125 mg tablet 1 tab PO BID 4 days #8 tabs 01/05/24 Hospital Course Operations None Procedures EKG and - (Chest x-ray x 2) Summary of Care Provided Minutes Spent on Discharge: 35 Hospital Course: Patient is an 78-year-old female who presented [facility] ED on 01/03/2024 from her skilled nursing for nonproductive cough and worsening shortness of breath. Hospital course as noted below. Discharged back to skilled nursing in stable condition on 01/04. 1. Bilateral community-acquired pneumonia with unknown organism, improving Chest x-ray on admit showed an infiltrate in the left lower lobe as well as right lung base. WBC count elevated at 20. Afebrile and hemodynamically stable, did not meet sepsis criteria. COVID/flu/RSV and respiratory PCR panel negative. Not able to produce sputum sample. Blood cultures with no growth at 48 hours. ? Treated with IV Zosyn while inpatient with improvement in symptoms and in leukocytosis. Improved back to baseline oxygen status by 01/03. Discharged on Augmentin to complete 7-day course of antibiotics total, stop date 01/08. 2. COPD with chronic hypoxic respiratory failure ? On 3 to 4 L O2 at baseline. Slightly higher requirements on admit, back to baseline by hospital day 2. Continue home prednisone 10 mg daily, no need to treat for COPD exacerbation. Continue home inhalers. 3. Chronic diastolic heart failure ? Increased home Lasix from 20 mg to 40 mg daily while inpatient to assist with additional volume removal. De-escalated back to home dosing on discharge. Continue home Toprol. Chronic medical conditions: ? Obesity: BMI 34 on admit. Complicated hospital course, care and prognosis. ? ANKUSH: Continue home BiPAP at night. ? 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 ? Paroxysmal A-fib: Sinus rhythm on admit. Continue home Eliquis and Toprol. ? Anxiety/depression: Stable. Continue home citalopram and Ativan. ? Neuropathy: Continue home gabapentin. ? GERD: Continue home PPI. Total clinical time spent by myself addressing the patient's medical issues, reviewing all the data, and collaborating with patient's care team: 35 minutes. Physical Exam Const alert, oriented x3 and no apparent distress Constitutional Narrative: Elderly female, obese, mildly fatigued appearing, otherwise laying comfortably in bed, conversing normally, no acute distress. General Appearance: cooperative and comfortable HEENT normocephalic, head/scalp atraumatic, hearing grossly normal bilaterally, nasal mucous membranes and turbinates normal and moist oral mucous membranes Eyes PERRL, EOMs intact bilaterally and conjunctivae normal Neck full ROM Chest inspection of chest normal Resp normal respiratory effort and no use of accessory muscles Resp Narrative: Mild to moderately decreased breath sounds bilaterally, worse at lung bases. No wheezing or crackles noted. Breathing comfortably on 4 L nasal cannula at rest with good saturations. Stable. Cardio regular rate, regular rhythm, no murmurs and peripheral pulses 2+ throughout GI normal to inspection, nondistended, normoactive bowel sounds, soft to palpation, non-tender and non-distended Back/Spine normal ROM Extremity normal to inspection, full ROM and no pedal edema Skin no rashes or lesions noted Neuro moves all extremities and no focal motor deficits Psych mental status grossly normal Weight / BMI Weight Weight: 91.5 kg Body Mass Index (BMI) 34.6 ABG / Lab / Microbiology Data 01/05/24 05:32 01/05/24 05:32 Laboratory: Laboratory Results - last 24 hr 01/05/24 05:32: WBC 15.4 H, RBC 3.68 L, Hgb 8.6 L, Hct 32.3 L, MCV 87.8, MCH 23.4 L, MCHC 26.6 L, RDW Std Deviation 54.0 H, RDW Coeff of Laura 16.8 H, Plt Count 259, MPV 12.0, Sodium 143, Potassium 3.0 L, Chloride 105, Carbon Dioxide 32.0, Anion Gap 6, BUN 28 H, Creatinine 0.68, Estim Creat Clear Calc 61.47, Est GFR (MDRD) Af Amer 108, Est GFR (MDRD) Non-Af 89, BUN/Creatinine Ratio 41.4 H, Glucose 85, Calcium 8.6 Microbiology: Microbiology 01/04/24 08:50 Mucosa - Nose Respiratory Panel (PCR) - Final 01/03/24 06:59 Mucosa - Nose SARS-CoV-2, Influenza & RSV (PCR) - Final Meaningful Use Info Meaningful Use Meaningful Use Diagnoses (Choose all that apply): None applicable Ischemic Stroke Statin Dosing Therapy Reference: STATIN DOSE THERAPY REFERENCE: * Patients > 75 years receive moderate or high dose statin therapy. * Patients 75 years or YOUNGER should receive HIGH intensity statin dose unless contraindicated. You will be required to document reason for non-treatment if statin daily dose does not meet guidelines. HIGH DOSE STATIN THERAPY DAILY Atorvastatin > than or = to 40 mg Rosuvastatin > than or = to 20 mg Amlodipine + Atorvastatin > than or = to 2.5/40 mg Ezetimibe + Simvastatin 10/80 mg Simvastatin 80mg Discharge Plan Admission Admit Date/Time: 01/03/24 08:08 Primary Reason for Your Visit: Cough with wheezing Attending Provider: Vaibhav Canales Primary Care Provider: Tor Lucia Consulting Providers: Reji Holt Discharge Orders/Prescriptions Prescriptions: New amoxicillin-pot clavulanate 875-125 mg tablet 1 tab PO BID 4 Days Qty: 8 0RF Continued furosemide 20 mg tablet 20 mg PO DAILY Glucagon Emergency Kit (human) 1 mg recon soln 1 mg subcut Q20M PRN (Reason: hypoglycem) Rx Instructions: until target blood sugar attained dextrose 40 % gel 15 g PO Q15M PRN (Reason: hypoglycemia) Rx Instructions: until symptoms of low blood sugar are controlled prednisone 10 mg tablet 10 mg PO DAILY Qty: 90 3RF acetazolamide 250 MG tablet 250 mg PO BID Lactobacillus acidophilus 1 EACH capsule 1 cap PO DAILY albuterol sulfate 2.5 MG/3 ML solution for nebulization 2.5 mg INHALATION Q2H PRN PRN (Reason: Shortness of Breath/Wheezing) 0RF docusate sodium 100 MG capsule 100 mg PO BID 0RF ondansetron HCl 4 mg Tablet 4 mg PO Q4H PRN (Reason: Nausea) PreserVision AREDS-2 250-90-40-1 mg Capsule 1 tab PO BID acetaminophen 500 mg Capsule 1,000 mg PO Q8H PRN (Reason: Pain) albuterol sulfate [Ventolin HFA] 90 mcg/actuation HFA aerosol inhaler 2 puff inhalation Q4H PRN PRN (Reason: Wheezing) Qty: 1 0RF ipratropium-albuterol 0.5 mg-3 mg(2.5 mg base)/3 mL Solution For Nebulization 3 ml INHALATION Q4H PRN (Reason: Wheezing) ipratropium-albuterol 0.5 mg-3 mg(2.5 mg base)/3 mL Solution For Nebulization 3 ml INHALATION TID dextromethorphan HBr 10 mg/5 mL Liquid 10 mg PO Q6H PRN (Reason: Cough) calcium carbonate 600 mg calcium (1,500 mg) Tablet 600 mg PO DAILY citalopram 20 mg tablet 20 mg PO DAILY cyanocobalamin (vitamin B-12) 500 mcg Tablet 500 mcg PO DAILY Hemorrhoidal Ointment 1 applic AL Q6H PRN (Reason: hemorrhoids) cholecalciferol (vitamin D3) [Vitamin D3] 50 mcg (2,000 unit) Tablet 50 mcg PO QHS gabapentin 300 mg capsule 300 mg PO QHS bisacodyl 10 mg suppository 10 mg AL DAILY PRN (Reason: constipation) Eliquis 5 mg tablet 5 mg PO BID mineral oil [Fleet Mineral Oil] Enema 118 ml AL DAILY PRN (Reason: constipation) Rx Instructions: discard any unused portion lorazepam [Ativan] 0.5 mg tablet 0.5 mg PO BID magnesium hydroxide [Milk of Magnesia] 400 mg/5 mL suspension 30 ml PO DAILY PRN (Reason: constipation) polyethylene glycol 3350 [Miralax] 17 gram/dose powder 17 g PO DAILY PRN (Reason: constipation) pantoprazole 20 mg tablet,delayed release (DR/EC) 20 mg PO DAILY melatonin 3 mg tablet 3 mg PO QHS budesonide 1 mg/2 mL suspension for nebulization 1 mg inhalation DAILY metoprolol succinate 25 mg tablet extended release 24 hr 25 mg PO DAILY Qty: 90 3RF potassium chloride 20 mEq tablet extended release 40 meq PO BID Held azithromycin 250 mg tablet 250 mg PO QMWF Qty: 36 0RF Hold Instructions: Resume on 01/10/24. Rx Instructions: Mon, and monday Referrals / Follow Up: Tor Lucia MD [Primary Care Provider] - Disposition Disposition (needs filled in before D/C Order can be placed): Curatorial Assistant Acute Care Charges/Coding Visit Charges Inpatient E&M: 86620 Disch Hosp >30min
--- NOTE | 2024-01-05 12:19 | PHA.DC_ITS ---
Pharmacy [place] Med Reconciliation Pharmacy Service has performed discharge medication reconciliation for this patient. The patient's discharge medication list was reviewed for discrepancies and discrepancies were resolved. Medications at Discharge Home Medications Lactobacillus acidophilus 1 cap PO DAILY [facility] 08/20/20 acetazolamide 250 mg tablet 250 mg PO BID EDEMA 08/20/20 albuterol sulfate 2.5 mg/3 mL (0.083 %) solution for nebulization 2.5 mg (3 mL) inhalation Q2H PRN PRN Shortness of Breath/Wheezing 09/05/20 docusate sodium 100 mg capsule 100 mg PO BID constipation 09/05/20 ondansetron HCl 4 mg tablet 4 mg PO Q4H PRN Nausea 07/14/21 vit C 250 mg-vit E 90 mg-zinc 40 mg-copper 1 [id number] capsule (PreserVision AREDS-2) 1 tab PO BID vitami 07/14/21 furosemide 20 mg tablet 20 mg PO DAILY diuretic 01/14/22 acetaminophen 500 mg capsule 1,000 mg PO Q8H PRN Pain 04/14/22 albuterol sulfate 90 mcg/actuation aerosol inhaler (Ventolin HFA) 2 puff inhalation Q4H PRN PRN Wheezing ##1 04/14/22 ipratropium 0.5 mg-albuterol 3 mg (2.5 mg base)/3 mL nebulization soln 3 ml inhalation Q4H PRN Wheezing 08/20/22 calcium carbonate 600 mg PO DAILY vit 12/31/22 cholecalciferol (vitamin D3) 50 mcg (2,000 unit) tablet (Vitamin D3) 50 mcg PO QHS vitami 12/31/22 citalopram 20 mg tablet 20 mg PO DAILY anxiety 12/31/22 cyanocobalamin (vitamin B-12) 500 mcg tablet 500 mcg PO DAILY vitamin 12/31/22 dextromethorphan HBr 10 mg/5 mL oral liquid 10 mg PO Q6H PRN Cough 12/31/22 ipratropium 0.5 mg-albuterol 3 mg (2.5 mg base)/3 mL nebulization soln 3 ml inhalation TID breathing treatment 12/31/22 phenylephrine-shark liver oil-mineral oil-petrolatum rectal ointment (Hemorrho idal ointment) 1 applic OK Q6H PRN hemorrhoids 12/31/22 dextrose 40 % oral gel 15 g PO Q15M PRN hypoglycemia 02/08/23 glucagon 1 mg solution for injection (Glucagon Emergency Kit) 1 mg subcut Q20M P RN hypoglycem 02/08/23 gabapentin 300 mg capsule 300 mg PO QHS nerve pain 03/20/23 azithromycin 250 mg tablet 250 mg PO QMWF #36 tabs 04/19/23 prednisone 10 mg tablet 10 mg PO DAILY steroid #90 tabs 04/19/23 metoprolol succinate 25 mg tablet,extended release 24 hr 25 mg PO DAILY blood pressure and heart rate #90 tabs 09/20/23 potassium chloride 20 mEq tablet,extended release 40 meq PO BID supplement 09/20/23 apixaban 5 mg tablet (Eliquis) 5 mg PO BID blood thinner 10/01/23 bisacodyl 10 mg rectal suppository 10 mg OK DAILY PRN constipation 10/01/23 lorazepam 0.5 mg tablet (Ativan) 0.5 mg PO BID anxiety 10/01/23 magnesium hydroxide 400 mg/5 mL oral suspension (Milk of Magnesia) 30 ml PO DAILY PRN constipation 10/01/23 mineral oil (Fleet Mineral Oil enema) 118 ml OK DAILY PRN constipation 10/01/23 pantoprazole 20 mg tablet,delayed release 20 mg PO DAILY GERd 10/01/23 polyethylene glycol 3350 17 gram/dose oral powder (Miralax) 17 g PO DAILY PRN constipation 10/01/23 budesonide 1 mg/2 mL suspension for nebulization 1 mg inhalation DAILY breathing treatment 01/03/24 melatonin 3 mg tablet 3 mg PO QHS sleep 01/03/24 amoxicillin 875 mg-potassium clavulanate 125 mg tablet 1 tab PO BID 4 days #8 tabs 01/05/24
--- NOTE | 2024-01-05 13:10 | CASEMGMT ---
Discharge Planning Discharge orders, signed med list, and transport time sent to [facility] [place] via [facility]. Physicians will transport patient by wheelchair at 3p. Nursing, SW, and patient updated. VM left for her daughter (Irene). Cecily Snyder DC Planning Asst.
--- NOTE | 2024-01-05 13:28 | CASEMGMT ---
Patient is ready for discharge back to [facility]. Plan: d/c back to [facility] under intermediate level of care. Physicians will transport via wheelchair. Regla VIZCARRA
--- NOTE | 2024-01-05 14:13 | NURSING ---
Attempted to call report to [facility] nurse x2; Nurse not available per hospital receptionist. Offered to call daughter Irene for pt, pt declined stating not to call her.
== END 2024-01-05 18:06 | DRG 194 ==
LOC: ED 07:23 → PCU 08:16
PROVIDERS: Admitting Provider Internal Medicine; Emergency Provider Emergency Medicine; PCP Family Medicine; Visit Provider Hospitalist
DX: J18.9 Pneumonia, unspecified organism (principal); I50.32 Chronic diastolic (congestive) heart failure; J44.0 Chronic obstructive pulmonary disease with (acute) lower respiratory infection; J96.11 Chronic respiratory failure with hypoxia; E11.40 Type 2 diabetes mellitus with diabetic neuropathy, unspecified; I11.0 Hypertensive heart disease with heart failure; I48.0 Paroxysmal atrial fibrillation; F32.A Depression, unspecified; E78.5 Hyperlipidemia, unspecified; G47.33 Obstructive sleep apnea (adult) (pediatric); K21.9 Gastro-esophageal reflux disease without esophagitis; F41.9 Anxiety disorder, unspecified; E66.9 Obesity, unspecified; Z68.34 Body mass index [BMI] 34.0-34.9, adult; Z66 Do not resuscitate; Z79.01 Long term (current) use of anticoagulants; Z99.81 Dependence on supplemental oxygen; Z79.51 Long term (current) use of inhaled steroids; Z11.52 Encounter for screening for COVID-19; Z87.891 Personal history of nicotine dependence; Z95.0 Presence of cardiac pacemaker
CPT/HCPCS: 36415; 71045; 80048; 82803; 83605; 85025; 85027; 87040; 87631; 87633; 93005; 94002; 94003; 94640; 94762; 97162; 97166; 99284; J7040; A4216

== ENCOUNTER 2024-01-07 14:24 | Emergency (ER) | payer MEDICARE, MEDICAID, SELFPAY ==
[2024-01-07] VITALS (8 sets, daily range): BP systolic 125–159; BP diastolic 56–119; PULSE 60–63; RESP 16–25; TEMP 36.9–38; O2SAT 98–100; BMI 36.1
--- NOTE | 2024-01-07 15:00 | EKG12_ITS ---
Test Reason : SOB Blood Pressure : / mmHG Vent. Rate : 060 BPM Atrial Rate : 110 BPM P-R Int : 000 ms QRS Dur : 118 ms QT Int : 438 ms P-R-T Axes : 000 -65 109 degrees QTc Int : 438 ms AFIB with complete heart block and Ventricular-paced rhythm Abnormal ECG BASLINE ARTIFACT Reconfirmed by Tomy Block ([id number]), editor sound JANEEN AMK ([id number]) on 01/09/2024 7:59:34 AM Referred By: Confirmed By:Tomy Block
--- NOTE | 2024-01-07 15:02 | EDS_ITS ---
HPI History of Present Illness Chief Complaint: Shortness of Breath Narrative Narrative: This is an 78-year-old female with a history of COPD, CHF, and recent left-sided pneumonia who presents to the emergency department with shortness of breath. The patient was having increased difficulty breathing this morning noted by her POA and also her granddaughter. Patient at baseline wears 4 L of oxygen. Patient was just recently discharged from the hospital for pneumonia. She is completing a course of Augmentin through January 08. In addition the patient is on prednisone, 10 mg daily and 20 mg of Lasix daily for CHF. Family has noticed increased swelling in her lower legs. She is short of breath at rest with a persistent nonproductive cough. No chest pain. No dizziness or lightheadedness. No syncope. Patient has not been able to stand or ambulate. She is a is anticoagulated on Eliquis. She has no new infectious symptoms as far as sore throat or congestion. [facility] Medical History DNR (do not resuscitate) CO2 narcosis Chronic anticoagulation Wears glasses Post-menopausal Hematoma History of steroid therapy Diabetes Uses wheelchair Walker as ambulation aid Arthritis Low iron Anemia DVT (deep venous thrombosis) Pulmonary embolism Injury of back Difficulty swallowing Non-smoker On home oxygen therapy Shortness of breath on exertion History of edema History of echocardiogram Cardiology follow-up encounter History of pacemaker History of CHF (congestive heart failure) History of atrial fibrillation History of irregular heartbeat Former smoker Abscess of left leg Skin necrosis Hematoma of left lower leg Wound abscess Elevated troponin Current use of skilled nursing anticoagulation Essential hypertension AV block, complete Tachycardia-bradycardia syndrome Presence of permanent cardiac pacemaker (~10/12/20) Sleep apnea BiPAP (biphasic positive airway pressure) dependence History of pulmonary embolism History of recurrent deep vein thrombosis (DVT) Pulmonary hypertension Former tobacco use Atrial fibrillation Heart failure with preserved ejection fraction Chronic anticoagulation Venous insufficiency Pulmonary HTN History of pulmonary embolus (PE) History of DVT (deep vein thrombosis) Essential hypertension Dyslipidemia COPD (chronic obstructive pulmonary disease) Home Medications ?Medication ?Instructions ?Recorded ?Last Taken ?Type Lactobacillus acidophilus 1 cap PO DAILY [facility] 08/20/20 09/01/20 10:42 History acetazolamide 250 mg tablet 250 mg PO BID EDEMA 08/20/20 09/01/20 08:00 History albuterol sulfate 2.5 mg/3 mL 2.5 mg (3 mL) inhalation Q2H PRN 09/05/20 01/03/24 Rx (0.083 %) solution for nebulization PRN Shortness of Breath/Wheezing docusate sodium 100 mg capsule 100 mg PO BID constipation 09/05/20 Unknown Rx ondansetron HCl 4 mg tablet 4 mg PO Q4H PRN Nausea 07/14/21 Unknown History vit C 250 mg-vit E 90 mg-zinc 40 1 tab PO BID vitami 07/14/21 Unknown History mg-copper 1 [id number] capsule (PreserVision AREDS-2) furosemide 20 mg tablet 20 mg PO DAILY diuretic 01/14/22 Unknown History acetaminophen 500 mg capsule 1,000 mg PO Q8H PRN Pain 04/14/22 Unknown History albuterol sulfate 90 mcg/actuation 2 puff inhalation Q4H PRN PRN 04/14/22 01/03/24 Rx aerosol inhaler (Ventolin HFA) Wheezing ##1 ipratropium 0.5 mg-albuterol 3 mg 3 ml inhalation Q4H PRN Wheezing 08/20/22 Unknown History (2.5 mg base)/3 mL nebulization soln calcium carbonate 600 mg PO DAILY vit 12/31/22 Unknown History cholecalciferol (vitamin D3) 50 50 mcg PO QHS vitami 12/31/22 Unknown History mcg (2,000 unit) tablet (Vitamin D3) citalopram 20 mg tablet 20 mg PO DAILY anxiety 12/31/22 Unknown History cyanocobalamin (vitamin B-12) 500 500 mcg PO DAILY vitamin 12/31/22 Unknown History mcg tablet dextromethorphan HBr 10 mg/5 mL 10 mg PO Q6H PRN Cough 12/31/22 Unknown History oral liquid ipratropium 0.5 mg-albuterol 3 mg 3 ml inhalation TID breathing 12/31/22 Unknown History (2.5 mg base)/3 mL nebulization treatment soln phenylephrine-shark liver 1 applic WI Q6H PRN hemorrhoids 12/31/22 Unknown History oil-mineral oil-petrolatum rectal ointment (Hemorrhoidal ointment) dextrose 40 % oral gel 15 g PO Q15M PRN hypoglycemia 02/08/23 Unknown History glucagon 1 mg solution for 1 mg subcut Q20M PRN hypoglycem 02/08/23 Unknown History injection (Glucagon Emergency Kit) gabapentin 300 mg capsule 300 mg PO QHS nerve pain 03/20/23 Unknown History azithromycin 250 mg tablet 250 mg PO QMWF #36 tabs 04/19/23 Unknown Rx prednisone 10 mg tablet 10 mg PO DAILY steroid #90 tabs 04/19/23 Unknown Rx metoprolol succinate 25 mg 25 mg PO DAILY blood pressure and 09/20/23 Unknown Rx tablet,extended release 24 hr heart rate #90 tabs potassium chloride 20 mEq 40 meq PO BID supplement 09/20/23 Unknown History tablet,extended release apixaban 5 mg tablet (Eliquis) 5 mg PO BID blood thinner 10/01/23 Unknown History bisacodyl 10 mg rectal suppository 10 mg WI DAILY PRN constipation 10/01/23 Unknown History lorazepam 0.5 mg tablet (Ativan) 0.5 mg PO BID anxiety 10/01/23 Unknown History magnesium hydroxide 400 mg/5 mL 30 ml PO DAILY PRN constipation 10/01/23 Unknown History oral suspension (Milk of Magnesia) mineral oil (Fleet Mineral Oil 118 ml WI DAILY PRN constipation 10/01/23 Unknown History enema) pantoprazole 20 mg tablet,delayed 20 mg PO DAILY GERd 10/01/23 Unknown History release polyethylene glycol 3350 17 17 g PO DAILY PRN constipation 10/01/23 Unknown History gram/dose oral powder (Miralax) budesonide 1 mg/2 mL suspension 1 mg inhalation DAILY breathing 01/03/24 Unknown History for nebulization treatment melatonin 3 mg tablet 3 mg PO QHS sleep 01/03/24 Unknown History amoxicillin 875 mg-potassium 1 tab PO BID 4 days #8 tabs 01/05/24 Unknown Rx clavulanate 125 mg tablet Allergy/AdvReac Type Severity Reaction Status Date / Time amlodipine besylate (From AdvReac ANKLE AND Verified 01/03/24 06:54 [facility]) LEG EDEMA codeine AdvReac MENTAL Verified 01/03/24 06:54 STATUS CHANGE lisinopril AdvReac COUGH Verified 01/03/24 06:54 Family History Sister Heart disease Surgical History Hx of atrioventricular node ablation tailbone surgery History of cholecystectomy History of total hysterectomy Social History household members: none housing: correction Smoking Status: Former smoker how long ago did patient quit smoking: Approxiomately 2003 alcohol intake: never substance use type: does not use caffeine: No ROS ROS ED Constitutional Constitutional ED: Denies chills or fever(s) ENT ENT ED: Denies ear pain, rhinorrhea or sore throat Cardiovascular Cardiovascular: Denies chest pain Respiratory/Chest Respiratory/Chest: Reports cough and dyspnea; Denies sputum Gastrointestinal Gastrointestinal: Denies abdominal pain, nausea or vomiting Genitourinary Genitourinary ED: Denies dysuria Musculoskeletal Musculoskeletal: Denies myalgias Neurologic Neurologic: Denies headache(s) EXAM Physical Exam Const Vital Signs: 01/07/24 14:35 01/07/24 14:35 01/07/24 14:51 Temperature 100.4 F H 100.4 F H Temperature Source Axillary Axillary Pulse Rate 63 60 60 Respiratory Rate 21 H 22 H 25 H Respiratory Effort Respiratory Depth Respiratory Pattern Blood Pressure 150/66 H 150/66 H 159/119 H Blood Pressure Mean 94 94 132 Pulse Ox 100 100 100 Oxygen Delivery Method Bi-pap Bi-pap CPAP Oxygen Flow Rate (L/min) 01/07/24 15:07 01/07/24 15:11 01/07/24 15:20 Temperature Temperature Source Pulse Rate 60 Respiratory Rate 20 H Respiratory Effort Respiratory Depth Respiratory Pattern Blood Pressure Blood Pressure Mean Pulse Ox 99 Oxygen Delivery Method CPAP Nasal Cannula Oxygen Flow Rate (L/min) 4 01/07/24 15:39 01/07/24 16:00 01/07/24 16:02 Temperature 99 F 100 F H Temperature Source Axillary Oral Pulse Rate 60 60 Respiratory Rate 22 H 21 H Respiratory Effort Short of Breath Respiratory Depth Shallow Respiratory Pattern Tachypnea Blood Pressure 125/56 H 155/67 H Blood Pressure Mean 79 96 Pulse Ox 99 98 Oxygen Delivery Method Nasal Cannula Nasal Cannula Nasal Cannula Oxygen Flow Rate (L/min) 4 3 3 Positive well nourished General Appearance ED: active and cooperative Orientation / Consciousness: awake and oriented to person Exam Limitations: no limitations Nutritional Appearance: overweight HEENT Reports normocephalic, head/scalp atraumatic, moist mucous membranes, nasal mucous membranes and turbinates normal and oropharynx normal normocephalic, normal to inspection and atraumatic Face and Sinus: normal facial exam Nose: external nose normal and nares normal External Ear: external ears normal Eyes PERRL, EOMs intact bilaterally and conjunctivae normal General Eye ED: Yes normal appearance of both eyes Visual Acuity: acuity normal Eyelid: eyelids normal Conjunctiva: conjunctiva normal Sclera: sclera normal Cornea: cornea normal Pupil: PERRL and accommodation reflex normal EOM: EOM abnormal Neck full ROM Lymph Lymphatic: no lymphadenopathy noted Chest Wall inspection of chest normal Chest: abnormal inspection of the chest Resp No clear to auscultation bilaterally Resp Narrative: Diminished breath sounds bilaterally with expiratory wheezing. Patient tachypneic, taking shallow breaths. Patient on BIPAP Effort and Inspection: Negative for able to speak in complete sentences Cardio regular rate and regular rhythm Rate: regular rate Peripheral Pulses: pulses 2+ throughout GI normal to inspection, nondistended, normoactive bowel sounds Rectal Exam: deferred Back/Spine normal ROM and normal to inspection Cervical Spine: cervical ROM normal Extremity Extremity Narrative: 2+ pitting edema bilaterally Neuro oriented x3, CN's II-XII intact bilaterally, moves all extremities and no focal motor deficits Sensorium / Orientation: awake and alert Motor Exam: strength 5/5 throughout Psych mental status grossly normal Appearance: grossly normal and appropriate Speech: normal speech Skin no rashes or lesions noted MDM MDM MDM Narrative Medical decision making narrative: This is an 78-year-old female presenting for shortness of breath and cough. Patient has a history of COPD, CHF and is currently being treated for pneumonia. She does arrive to the emergency department tachypneic and febrile. Differential diagnosis includes, but is not limited to, persistent pneumonia, CHF exacerbation, COPD exacerbation. ACS unlikely with no chest pain and PE unlikely as the patient is anticoagulated on Eliquis. Patient was given Tylenol for her fever. Will hold off on fluids at this time as the patient's blood pressure is elevated and she has a history of CHF with clinical signs of fluid overload peripherally. Patient was given IV Solu-Medrol and 1 nebulized DuoNeb treatment. Lab work and imaging reviewed. Patient does have a leukocytosis with a white count of 15.1, but this is actually downtrending from prior lab work 2 days ago. Electrolytes and renal function within normal values. Lactic acid is not elevated. Troponin is not elevated. proBNP grossly stable from prior lab work as well. I reviewed her chest x-ray and personally interpreted this. The patient does have a left lower lung effusion. This is grossly unchanged from prior chest x-rays as well. EKG shows no ischemic changes or injury pattern. On repeat evaluation patient is resting comfortably. She was able to be de- escalated to 3 L of nasal cannula oxygen, which she wears at baseline at her facility. She is not having any respiratory distress at this time and is not hypoxic. Again, on chart review the patient is supposed to be on Augmentin through January 08. Given that she is already on antibiotics, Lasix and prednisone, I feel she can be discharged back to her facility today and finish her medication regimen. Patient understands importance of adherence to all of h er breathing treatments at her facility as well as her CPAP machine at night. All questions answered. [facility] Lab Data Labs: Laboratory Results - last 24 hr 01/07/24 14:47 WBC 15.1 H RBC 4.02 L Hgb 9.3 L Hct 35.7 L MCV 88.8 MCH 23.1 L MCHC 26.1 L RDW Std Deviation 55.4 H RDW Coeff of Laura 17.1 H Plt Count 323 MPV 12.1 H Immature Gran % (Auto) 0.500 Neut % (Auto) 91.4 H Lymph % (Auto) 3.2 L Villalba % (Auto) 4.4 Eos % (Auto) 0.2 Baso % (Auto) 0.3 Absolute Neuts (auto) 13.8 H Absolute Lymphs (auto) 0.48 L Nucleated RBC % 0 PT 16.0 H INR 1.3 APTT 32.4 Sodium 142 Potassium 3.9 Chloride 107 Carbon Dioxide 31.0 Anion Gap 4 L BUN 17 Creatinine 0.69 Estim Creat Clear Calc 62.83 Est GFR (MDRD) Af Amer 105 Est GFR (MDRD) Non-Af 87 BUN/Creatinine Ratio 24.7 H Glucose 133 H Lactic Acid 1.2 Calcium 8.6 Troponin I High Sens 27 B-Natriuretic Peptide 179.0 H Radiography Diagnostic Testing: Clinical Impression(s) from Imaging Studies Chest X-Ray 01/07/24 15:15 IMPRESSION: There has been no change in the appearance of the chest since the prior study. Electronically Signed: Ti Lancaster MD at 15:30 EDT , EKG Initial EKG: Attestation: I personally reviewed and interpreted this EKG as follows: Interpretation: Sinus Rhythm, No Acute Injury Pattern and Paced Prior: Unchanged Discharge Plan Triage Chief Complaint: Shortness of Breath ED Provider: Rebekah Carreno Dx/Rx/DC Orders Clinical Impression: Left lower lobe pneumonia, Chronic hypoxemic respiratory failure, COPD with exacerbation Instructions: COPD: Wheezing and Chest Tightness, ED Pneumonia (Adult) Prescriptions: No Action furosemide 20 mg tablet 20 mg PO DAILY Glucagon Emergency Kit (human) 1 mg recon soln 1 mg subcut Q20M PRN (Reason: hypoglycem) Rx Instructions: until target blood sugar attained dextrose 40 % gel 15 g PO Q15M PRN (Reason: hypoglycemia) Rx Instructions: until symptoms of low blood sugar are controlled azithromycin 250 mg tablet 250 mg PO QMWF Qty: 36 0RF Rx Instructions: Mon, and monday prednisone 10 mg tablet 10 mg PO DAILY Qty: 90 3RF acetazolamide 250 MG tablet 250 mg PO BID Lactobacillus acidophilus 1 EACH capsule 1 cap PO DAILY albuterol sulfate 2.5 MG/3 ML solution for nebulization 2.5 mg INHALATION Q2H PRN PRN (Reason: Shortness of Breath/Wheezing) 0RF docusate sodium 100 MG capsule 100 mg PO BID 0RF ondansetron HCl 4 mg Tablet 4 mg PO Q4H PRN (Reason: Nausea) PreserVision AREDS-2 250-90-40-1 mg Capsule 1 tab PO BID acetaminophen 500 mg Capsule 1,000 mg PO Q8H PRN (Reason: Pain) albuterol sulfate [Ventolin HFA] 90 mcg/actuation HFA aerosol inhaler 2 puff inhalation Q4H PRN PRN (Reason: Wheezing) Qty: 1 0RF ipratropium-albuterol 0.5 mg-3 mg(2.5 mg base)/3 mL Solution For Nebulization 3 ml INHALATION Q4H PRN (Reason: Wheezing) ipratropium-albuterol 0.5 mg-3 mg(2.5 mg base)/3 mL Solution For Nebulization 3 ml INHALATION TID dextromethorphan HBr 10 mg/5 mL Liquid 10 mg PO Q6H PRN (Reason: Cough) calcium carbonate 600 mg calcium (1,500 mg) Tablet 600 mg PO DAILY citalopram 20 mg tablet 20 mg PO DAILY cyanocobalamin (vitamin B-12) 500 mcg Tablet 500 mcg PO DAILY Hemorrhoidal Ointment 1 applic WI Q6H PRN (Reason: hemorrhoids) cholecalciferol (vitamin D3) [Vitamin D3] 50 mcg (2,000 unit) Tablet 50 mcg PO QHS gabapentin 300 mg capsule 300 mg PO QHS bisacodyl 10 mg suppository 10 mg WI DAILY PRN (Reason: constipation) Eliquis 5 mg tablet 5 mg PO BID mineral oil [Fleet Mineral Oil] Enema 118 ml WI DAILY PRN (Reason: constipation) Rx Instructions: discard any unused portion lorazepam [Ativan] 0.5 mg tablet 0.5 mg PO BID magnesium hydroxide [Milk of Magnesia] 400 mg/5 mL suspension 30 ml PO DAILY PRN (Reason: constipation) polyethylene glycol 3350 [Miralax] 17 gram/dose powder 17 g PO DAILY PRN (Reason: constipation) pantoprazole 20 mg tablet,delayed release (DR/EC) 20 mg PO DAILY melatonin 3 mg tablet 3 mg PO QHS budesonide 1 mg/2 mL suspension for nebulization 1 mg inhalation DAILY amoxicillin-pot clavulanate 875-125 mg tablet 1 tab PO BID 4 Days Qty: 8 0RF metoprolol succinate 25 mg tablet extended release 24 hr 25 mg PO DAILY Qty: 90 3RF potassium chloride 20 mEq tablet extended release 40 meq PO BID Primary Care Provider: Tor Lucia Referrals: Tor Lucia MD [Primary Care Provider] - Print Language: Divehi Disposition Disposition: [facility] Discharge Location: [facility] [place]
[2024-01-07] MEDS: Ipratropium/Albuterol Sulfate 3 ML AMPUL.NEB INHALATION (15:09)
--- NOTE | 2024-01-07 15:15 | RAD_ITS ---
STUDY: XR Chest 1 View 01/07/2024 3:15 PM REASON FOR EXAM: Female, 78 years old. shortness of breath, cough COMPARISON: 6.20.24 TECHNIQUE: XR Chest 1 View FINDINGS: There is a left pleural effusion. There is a left sided pacemaker batterypack. Left lower lobe infiltrate or atelectasis. Normal heart size. Normal mediastinum. Normal betty. Prominent appearing increased interstitial lung markings. Normal visualized pulmonary arteries. There is atherosclerotic calcification of the aortic arch with tortuosity. There are diffuse degenerative changes of the visualized thoracic spine. There is degenerative osteoarthritis of the bilateral shoulders. There are no acute findings of the upper abdomen. RAD/Chest 1 View (Portable) IMPRESSION: There has been no change in the appearance of the chest since the prior study. Electronically Signed: Ti Lancaster MD at 15:30 EDT ,
[2024-01-07] MEDS: Acetaminophen 325 MG Tablet 650 MG PO (15:20)
[2024-01-07] MEDS: MethylPREDNISolone 125 MG/2 ML Vial IV (15:21)
[2024-01-07 15:51] LABS: Absolute Lymphocyte Count 0.48 X10^3/uL (0.83-4.51); Absolute Neutrophil Count 13.8 X10^3/uL (2.0-7.7); Basophil# 0.04 X10^3/uL; Basophil% 0.3 % (0-1); Eosinophil# 0.03 X10^3/uL; Eosinophils% 0.2 % (0-5); Hematocrit 35.7 % (37-47); Hemoglobin 9.3 g/dL (12.0-15.0); Lymphocyte # 0.48 X10^3/ul (0.83-4.51); Lymphocyte % 3.2 % (19-41); Mean Corp Hgb Conc 26.1 g/dL (32-36); Mean Corpuscular Hgb 23.1 pg (27.0-32.0); Mean Corpuscular Volume 88.8 fL (81-99); Mean Platelet Vol. 12.1 fl (6.2-12.0); Monocyte# 0.66 X10^3/uL; Monocyte% 4.4 % (0-10); NRBC Flagged by Analyzer 0 % (0-5); Neutrophil # 13.81 X10^3/uL (2.7-7.7); Neutrophil % 91.4 % (47-70); POSITIVE DIFFERENTIAL YES; Platelet Count 323 K/mm3 (150-450); RBC Distribution Width CV 17.1 % (11.6-14.6); RBC Distribution Width SD 55.4 fl (35.1-43.9); Red Blood Count 4.02 M/mm3 (4.2-5.4); White Blood Count 15.1 K/mm3 (4.4-11.0)
[2024-01-07 16:00] LABS: International Normalized Ratio 1.3
[2024-01-07 16:01] LABS: Partial Thromboplast Time 32.4 Seconds (24.1-36.2)
[2024-01-07 16:14] LABS: Anion Gap 4 (5-15); BUN 17 mg/dL (7-18); BUN/Creat Ratio 24.7 RATIO (10-20); Calcium,Total 8.6 mg/dL (8.5-10.1); Chloride 107 mmol/L (98-107); Creatinine, Serum 0.69 mg/dL (0.55-1.02); EST Glomerular Filtration Rate 87 mL/min (>60); Est Glom Filt Rate - Afr Amer 105 mL/min (>60); Estimated Creatinine Clearance 62.83 ml/min; Glucose 133 mg/dL (74-106); Potassium 3.9 mmol/L (3.5-5.1); Sodium Level 142 mmol/L (136-145); Troponin-I HS 27 pg/mL (3.0-54.0)
[2024-01-07 16:18] LABS: Lactic Acid 1.2 mmol/L (0.4-1.9)
--- NOTE | 2024-01-07 17:21 | NURSING ---
CALLED [facility], ETA IS 20 MIN
== END 2024-01-07 17:36 | disposition skilled nursing facility (03) ==
PROVIDERS: Emergency Provider Emergency Medicine; PCP Family Medicine; Visit Provider Emergency Medicine
DX: J18.9 Pneumonia, unspecified organism (principal); J96.11 Chronic respiratory failure with hypoxia; I11.0 Hypertensive heart disease with heart failure; J44.1 Chronic obstructive pulmonary disease with (acute) exacerbation; I48.91 Unspecified atrial fibrillation; E11.9 Type 2 diabetes mellitus without complications; Z79.01 Long term (current) use of anticoagulants; Z87.891 Personal history of nicotine dependence; Z99.81 Dependence on supplemental oxygen; Z79.899 Other long term (current) drug therapy; Z95.0 Presence of cardiac pacemaker
CPT/HCPCS: 71045; 80048; 83605; 83880; 84484; 85025; 85610; 85730; 87040; 87631; 93005; 94640; 96374; 99284; A4216

== ENCOUNTER 2024-02-28 20:24 | Inpatient (IN) | payer MEDICARE, MEDICAID, SELFPAY ==
[2024-02-28] VITALS (8 sets, daily range): BP systolic 150–166; BP diastolic 65–84; PULSE 60; RESP 20–26; TEMP 35.9–36.8; O2SAT 96–99; BMI 37.9; BMI 33.0
[2024-02-28] MEDS: Ipratropium/Albuterol Sulfate 3 ML AMPUL.NEB INHALATION (21:10)
[2024-02-28 21:12] LABS: Absolute Lymphocyte Count 1.66 X10^3/uL (0.83-4.51); Absolute Neutrophil Count 8.9 X10^3/uL (2.0-7.7); Basophil# 0.03 X10^3/uL; Basophil% 0.3 % (0-1); Eosinophil# 0.12 X10^3/uL; Hematocrit 33.6 % (37-47); Lymphocyte # 1.66 X10^3/ul (0.83-4.51); Lymphocyte % 14.4 % (19-41); Mean Corp Hgb Conc 26.8 g/dL (32-36); Mean Corpuscular Hgb 22.8 pg (27.0-32.0); Mean Corpuscular Volume 85.1 fL (81-99); Mean Platelet Vol. 11.7 fl (6.2-12.0); Monocyte# 0.83 X10^3/uL; Monocyte% 7.2 % (0-10); NRBC Flagged by Analyzer 0 % (0-5); Neutrophil # 8.85 X10^3/uL (2.7-7.7); Neutrophil % 76.5 % (47-70); Platelet Count 257 K/mm3 (150-450); RBC Distribution Width CV 18.1 % (11.6-14.6); RBC Distribution Width SD 55.7 fl (35.1-43.9); Red Blood Count 3.95 M/mm3 (4.2-5.4); White Blood Count 11.6 K/mm3 (4.4-11.0)
[2024-02-28] MEDS: MethylPREDNISolone 125 MG/2 ML Vial IV (21:26)
[2024-02-28 21:31] LABS: BNP,B-Type NATRIURETIC PEPTIDE 141.3 pg/mL (0-100)
[2024-02-28 21:35] LABS: Anion Gap 1 (5-15); BUN 22 mg/dL (7-18); BUN/Creat Ratio 27.6 RATIO (10-20); Calcium,Total 8.8 mg/dL (8.5-10.1); Chloride 107 mmol/L (98-107); EST Glomerular Filtration Rate 74 mL/min (>60); Est Glom Filt Rate - Afr Amer 89 mL/min (>60); Estimated Creatinine Clearance 64.55 ml/min; Glucose 96 mg/dL (74-106); Potassium 4.8 mmol/L (3.5-5.1); Sodium Level 142 mmol/L (136-145); Troponin-I HS 26 pg/mL (3.0-54.0)
--- NOTE | 2024-02-28 21:35 | RAD_ITS ---
EXAM: XR CHEST, 2 VIEWS CLINICAL INDICATION: cough, sob TECHNIQUE: Frontal and lateral views of the chest. COMPARISON: Previous chest radiographs of 01/07/2024 and 01/04/2024. FINDINGS: LUNGS AND PLEURAL SPACES: Stable chronic linear scarring at the lung bases and within the right mid to upper lung. No consolidation or edema. No pneumothorax. No effusion. HEART: Unremarkable. Cardiac silhouette not enlarged. Normal pulmonary vasculature. Cardiac pacemaker remains in place. MEDIASTINUM: Stable mild elongation and calcification of the thoracic aorta. BONES/JOINTS: No acute osseous abnormality. Mild degenerative spurring again noted throughout the thoracic spine. Degenerative spurring noted about the right glenohumeral joint space. SOFT TISSUES: Unremarkable. RAD/Chest PA and Lateral IMPRESSION: No significant interval change or acute process. Electronically Signed: Ghassan Diaz MD at 22:10 EDT ,
--- NOTE | 2024-02-28 23:08 | PCM.HP.STD ---
[facility] - General General Date of Admission: 02/28/24 Date of Service: 02/28/24 Chief Complaint: SOB and Worsening LE Edema. [facility] Narrative BERTO SIMPSON, is a 78 F with a past medical history of essential hypertension, hyperlipidemia, obesity; with BMI of 37.9 this admission, ANKUSH; on nocturnal BiPAP, PAF; on Eliquis and Toprol, history of VTE; with chronic venous insufficiency, history of tobacco abuse; with subsequent steroid-dependent COPD, chronic hypoxic respiratory failure; on ~3L NC continuously, Chronic Diastolic CHF; with preserved LVEF, history of SSS; s/p PPM, history of neuropathy, depression with anxiety, GERD, OA and recent admission here from January 03, 2024 to January 05, 2024 for treatment of CAP and AE COPD who presents to [facility] ER complaining of SOB and worsening lower extremity edema. Ms. Simpson reports her symptoms began approximately one week prior to admission with the gradual-onset of progressively worsening PINEDA that progressed to SOB at rest. She also admits to associated wheezing and non-productive cough that is typical of her previous COPD exacerbations. She denies any known sick contact but she currently lives in a SNF. She denies related fever, chills, nausea, vomiting, chest pain, diarrhea or constipation but she does admit to increasing bilateral symmetric 3+ LE edema. In the ER she was diagnosed with AE COPD complicated by AE of Chronic Diastolic CHF; with preserved LVEF combining to cause clinical evidence of [id number] respiratory insufficiency and she was then admitted to the PCU for ongoing care for a stay that is expected to extend beyond 2 midnights. [facility] Medical History (Updated 02/29/24 @ 01:[address] Freddy Mooney, ) Chronic hypoxemic respiratory failure DNR (do not resuscitate) CO2 narcosis Chronic anticoagulation Wears glasses Post-menopausal Hematoma History of steroid therapy Diabetes Uses wheelchair Walker as ambulation aid Arthritis Low iron Anemia DVT (deep venous thrombosis) Pulmonary embolism Injury of back Difficulty swallowing Non-smoker On home oxygen therapy Shortness of breath on exertion History of edema History of echocardiogram Cardiology follow-up encounter History of pacemaker History of CHF (congestive heart failure) History of atrial fibrillation History of irregular heartbeat Former smoker Abscess of left leg Skin necrosis Hematoma of left lower leg Wound abscess Elevated troponin 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 Essential hypertension AV block, complete Tachycardia-bradycardia syndrome Presence of permanent cardiac pacemaker (~10/12/20) Sleep apnea BiPAP (biphasic positive airway pressure) dependence History of pulmonary embolism History of recurrent deep vein thrombosis (DVT) Pulmonary hypertension Former tobacco use Atrial fibrillation Heart failure with preserved ejection fraction Chronic anticoagulation Venous insufficiency Pulmonary HTN History of pulmonary embolus (PE) History of DVT (deep vein thrombosis) Essential hypertension Dyslipidemia COPD (chronic obstructive pulmonary disease) Home Medications ?Medication ?Instructions ?Recorded ?Last Taken ?Type Lactobacillus acidophilus 1 cap PO DAILY [facility] 08/20/20 09/01/20 10:42 History acetazolamide 250 mg tablet 250 mg PO BID EDEMA 08/20/20 09/01/20 08:00 History albuterol sulfate 2.5 mg/3 mL 2.5 mg (3 mL) inhalation Q2H PRN 09/05/20 01/03/24 Rx (0.083 %) solution for nebulization PRN Shortness of Breath/Wheezing docusate sodium 100 mg capsule 100 mg PO BID constipation 09/05/20 Unknown Rx ondansetron HCl 4 mg tablet 4 mg PO Q4H PRN Nausea 07/14/21 Unknown History vit C 250 mg-vit E 90 mg-zinc 40 1 tab PO BID vitami 07/14/21 Unknown History mg-copper 1 de-xnupvn-yekjph capsule (PreserVision AREDS-2) furosemide 20 mg tablet 20 mg PO DAILY diuretic 01/14/22 Unknown History acetaminophen 500 mg capsule 1,000 mg PO Q8H PRN Pain 04/14/22 Unknown History albuterol sulfate 90 mcg/actuation 2 puff inhalation Q4H PRN PRN 04/14/22 01/03/24 Rx aerosol inhaler (Ventolin HFA) Wheezing ##1 ipratropium 0.5 mg-albuterol 3 mg 3 ml inhalation Q4H PRN Wheezing 08/20/22 Unknown History (2.5 mg base)/3 mL nebulization soln calcium carbonate 600 mg PO DAILY vit 12/31/22 Unknown History cholecalciferol (vitamin D3) 50 50 mcg PO QHS vitami 12/31/22 Unknown History mcg (2,000 unit) tablet (Vitamin D3) citalopram 20 mg tablet 20 mg PO DAILY anxiety 12/31/22 Unknown History cyanocobalamin (vitamin B-12) 500 500 mcg PO DAILY vitamin 12/31/22 Unknown History mcg tablet dextromethorphan HBr 10 mg/5 mL 10 mg PO Q6H PRN Cough 12/31/22 Unknown History oral liquid ipratropium 0.5 mg-albuterol 3 mg 3 ml inhalation TID breathing 12/31/22 Unknown History (2.5 mg base)/3 mL nebulization treatment soln phenylephrine-shark liver 1 applic MO Q6H PRN hemorrhoids 12/31/22 Unknown History oil-mineral oil-petrolatum rectal ointment (Hemorrhoidal ointment) dextrose 40 % oral gel 15 g PO Q15M PRN hypoglycemia 02/08/23 Unknown History glucagon 1 mg solution for 1 mg subcut Q20M PRN hypoglycem 02/08/23 Unknown History injection (Glucagon Emergency Kit) gabapentin 300 mg capsule 300 mg PO QHS nerve pain 03/20/23 Unknown History azithromycin 250 mg tablet 250 mg PO QMWF #36 tabs 04/19/23 Unknown Rx prednisone 10 mg tablet 10 mg PO DAILY steroid #90 tabs 04/19/23 Unknown Rx metoprolol succinate 25 mg 25 mg PO DAILY blood pressure and 09/20/23 Unknown Rx tablet,extended release 24 hr heart rate #90 tabs potassium chloride 20 mEq 40 meq PO BID supplement 09/20/23 Unknown History tablet,extended release apixaban 5 mg tablet (Eliquis) 5 mg PO BID blood thinner 10/01/23 Unknown History bisacodyl 10 mg rectal suppository 10 mg MO DAILY PRN constipation 10/01/23 Unknown History lorazepam 0.5 mg tablet (Ativan) 0.5 mg PO BID anxiety 10/01/23 Unknown History magnesium hydroxide 400 mg/5 mL 30 ml PO DAILY PRN constipation 10/01/23 Unknown History oral suspension (Milk of Magnesia) mineral oil (Fleet Mineral Oil 118 ml MO DAILY PRN constipation 10/01/23 Unknown History enema) pantoprazole 20 mg tablet,delayed 20 mg PO DAILY GERd 10/01/23 Unknown History release polyethylene glycol 3350 17 17 g PO DAILY PRN constipation 10/01/23 Unknown History gram/dose oral powder (Miralax) budesonide 1 mg/2 mL suspension 1 mg inhalation DAILY breathing 01/03/24 Unknown History for nebulization treatment melatonin 3 mg tablet 3 mg PO QHS sleep 01/03/24 Unknown History Allergy/AdvReac Type Severity Reaction Status Date / Time amlodipine besylate (From AdvReac ANKLE AND Verified 02/28/24 20:[address] [facility] [place] LEG EDEMA codeine AdvReac MENTAL Verified 02/28/24 20:25 STATUS CHANGE lisinopril AdvReac COUGH Verified 02/28/24 20:25 Family History Sister Heart disease Surgical History Hx of atrioventricular node ablation tailbone surgery History of cholecystectomy History of total hysterectomy Social History household members: none housing: [facility] Smoking Status: Former smoker how long ago did patient quit smoking: Approxiomately 2003 alcohol intake: never substance use type: does not use caffeine: No ROS ROS Narrative Review of systems: General: Patient denies fever or chills. HENT: Denies headache, denies stuffy nose, denies sore throat EYES: Denies changes in vision or discharge from eyes. Resp: Patient admits to dyspnea on exertion that progressed to shortness of breath at rest with wheezing as per HPI. Cardiac: Denies chest pain, palpitations or heart racing. GI: Denies abdominal pain, denies changes in bowel, denies nausea or vomiting. : Denies changes in urination Extremity: Patient admits to bilateral symmetric 3+ lower extremity edema that is recently worsened as per HPI. Musculoskeletal: Feels somewhat generally weak and unwell but denies arthralgias or myalgias. Neuro: Patient denies headache, paresthesias or focal neurologic deficits. Heme: Denies any bleeding or bruising Skin: Denies rashes Psychiatric: No complaints voiced related to uncontrolled depression or anxiety. Endocrine: No polyuria, polydipsia or polyphagia. The rest of the 14 point ROS was negative except for positives in HPI. Vital Signs Vital Signs Vital Signs: 02/28/24 20:25 02/28/24 20:31 02/28/24 20:31 Temperature 96.7 F L 96.7 F L Temperature Source Temporal Temporal Pulse Rate 60 60 Respiratory Rate 22 H 24 H Respiratory Effort Short of Breath Labored Respiratory Pattern Tachypnea Blood Pressure 166/65 H 166/65 H Blood Pressure Mean 98 98 Pulse Ox 98 98 Oxygen Delivery Method Nasal Cannula Nasal Cannula Nasal Cannula Oxygen Flow Rate (L/min) 4.5 4.5 4.5 02/28/24 20:54 02/28/24 21:10 02/28/24 21:10 Temperature Temperature Source Pulse Rate 60 Respiratory Rate 26 H Respiratory Effort Respiratory Pattern Tachypnea Blood Pressure Blood Pressure Mean Pulse Ox 98 Oxygen Delivery Method Nasal Cannula Nasal Cannula Oxygen Flow Rate (L/min) 4.5 4 02/28/24 21:26 02/28/24 21:30 02/28/24 22:00 Temperature 96.9 F L 96.9 F L Temperature Source Temporal Temporal Pulse Rate 60 60 Respiratory Rate 24 H 20 H Respiratory Effort Respiratory Pattern Blood Pressure 152/78 H 150/72 H Blood Pressure Mean 99 98 Pulse Ox 98 96 99 Oxygen Delivery Method Nasal Cannula Nasal Cannula Nasal Cannula Oxygen Flow Rate (L/min) 4 4 4 Weight Weight: 220 lb 14.451 oz Body Mass Index (BMI) 37.9 Physical Exam Const alert and oriented x3 Constitutional Narrative: Obese with patient dyspneic. General Appearance: cooperative HEENT normocephalic, head/scalp atraumatic, hearing grossly normal bilaterally and moist oral mucous membranes Eyes PERRL and EOMs intact bilaterally Neck no lymphadenopathy and supple Resp Resp Narrative: Diminished breath sounds throughout. Cardio regular rate and regular rhythm GI normal to inspection, nondistended, normoactive bowel sounds, soft to palpation, non-tender and non-distended GI Narrative: Obese. Extremity Extremity Narrative: 3+ symmetrical bilateral LE edema. Skin Skin Narrative: Patient has no evidence of rash, abscess or jaundice. Neuro oriented x3, CN's II-XII intact bilaterally, moves all extremities and no focal motor deficits Sensorium / Orientation: awake, alert, oriented to person, oriented to place and oriented to time Speech: speech normal Psych affect normal Results Medical Records Data Attestation: I reviewed the patient's medical records Lab / Micro Data Attestation: I reviewed the patient's lab results. 02/28/24 21:02 02/28/24 21:02 Labs: Laboratory Results - last 24 hr 02/28/24 21:02: WBC 11.6 H, RBC 3.95 L, Hgb 9.0 L, Hct 33.6 L, MCV 85.1, MCH 22.8 L, MCHC 26.8 L, RDW Std Deviation 55.7 H, RDW Coeff of Laura 18.1 H, Plt Count 257, MPV 11.7, Immature Gran % (Auto) 0.600, Neut % (Auto) 76.5 H, Lymph % (Auto) 14.4 L, [place] % (Auto) 7.2, Eos % (Auto) 1.0, Baso % (Auto) 0.3, Absolute Neuts (auto) 8.9 H, Absolute Lymphs (auto) 1.66, Nucleated RBC % 0, Sodium 142, Potassium 4.8, Chloride 107, Carbon Dioxide 34.0 H, Anion Gap 1 L, BUN 22 H, Creatinine 0.80, Estim Creat Clear Calc 64.55, Est GFR (MDRD) Af Amer 89, Est GFR (MDRD) Non-Af 74, BUN/Creatinine Ratio 27.6 H, Glucose 96, Calcium 8.8, Troponin I High Sens 26, B-Natriuretic Peptide 141.3 H Micro: Microbiology 02/28/24 20:58 Mucosa - Nose SARS-CoV-2, Influenza & RSV (PCR) - Final Imaging Radiology Impression Chest X-Ray 02/28/24 21:35 IMPRESSION: No significant interval change or acute process. Electronically Signed: Ghassan Diaz MD at 22:10 EDT , Assessment & Plan Assessment/Plan (1) COPD with exacerbation: (2) CHF exacerbation: QUALIFIERS: Heart failure type: diastolic Qualified Code(s): I50.33 - Acute on chronic diastolic (congestive) heart failure (3) Acute respiratory insufficiency: (4) Chronic hypoxemic respiratory failure: (5) ANKUSH (obstructive sleep apnea): (6) Obesity (BMI 30-39.9): PLAN: Plan 1. AE COPD - Admit to PCU. Continue IV Solu-Medrol and add IV doxycycline plus scheduled and as needed nebulizers. Patient quit smoking approximately 20 years ago. Give Tylenol as needed pain or fever. 2. AE of Chronic Diastolic CHF; with preserved LVEF complicating #1 - We will give Lasix 40 mg IV daily for gradual diuresis and then monitor for improvement. 3. [id number]-mc-Frnanvw Hypoxic Respiratory Insufficiency arising from #1 & #2 - Wean supplemental oxygen back to baseline levels as tolerated. 4. Obesity; with BMI of 37.9 this admission plus ANKUSH; on nocturnal BiPAP compounding #1 - #3 - Weight loss will be recommended. Resume BiPAP as previous. 5. Recent admission here from January 03, 2024 to January 05, 2024 for treatment of CAP and AE COPD adding to the complexity of #1 - #4 - Noted. 6. History of VTE; with chronic venous insufficiency - Stable. 7. PAF; on Eliquis and Toprol - Continue Eliquis and Toprol as previous. 8. Essential hypertension - Resume home regimen plus give prn Hydralazine for systolic blood pressure > 160 mmHg. 9. Hyperlipidemia - Maintain current statin treatment. 10. History of SSS; s/p PPM - Stable. 11. History of neuropathy - Continue Gabapentin as previous. 12. Depression with anxiety - Resume current management. 13. GERD - Continue PPI. 14. OA - Give Tylenol prn. 15. DVT prophylaxis - Patient already on Eliquis for #7 which will be continued. Total time: Approximately 75 minutes. Charges/Coding Visit Charges Inpatient E&M: 24725 Init Hosp L3
[2024-02-28] MEDS: Furosemide 40 MG/4 ML Vial IV (23:16)
--- NOTE | 2024-02-28 23:16 | EX.ED.DYSGE1 ---
HPI History of Present Illness Chief Complaint: Shortness of Breath Narrative Narrative: Patient is a 78-year-old female with past medical history of COPD and chronic hypoxemic respiratory failure chronically on 2 to 4 L nasal cannula, DVT, PE on warfarin, diabetes, CHF, ANKUSH, atrial fibrillation, pulmonary hypertension who presented to the emergency department with chief complaint of worsening shortness of breath over the last several days. She also complains of worsening bilateral lower extremity swelling according to family ember at bedside. Patient states that with any minimal amount of movement she becomes very short of breath prompting her to come here for the valuation management today. States that she is chronically on low-dose steroids 10 mg and family member noted that they do increase this if she is having a COPD exacerbation. Patient denies any recent sick contacts but does live in a nursing facility. [facility] Medical History Chronic hypoxemic respiratory failure DNR (do not resuscitate) CO2 narcosis Chronic anticoagulation Wears glasses Post-menopausal Hematoma History of steroid therapy Diabetes Uses wheelchair Walker as ambulation aid Arthritis Low iron Anemia DVT (deep venous thrombosis) Pulmonary embolism Injury of back Difficulty swallowing Non-smoker On home oxygen therapy Shortness of breath on exertion History of edema History of echocardiogram Cardiology follow-up encounter History of pacemaker History of CHF (congestive heart failure) History of atrial fibrillation History of irregular heartbeat Former smoker Abscess of left leg Skin necrosis Hematoma of left lower leg Wound abscess Elevated troponin Current use of [facility] anticoagulation Essential hypertension AV block, complete Tachycardia-bradycardia syndrome Presence of permanent cardiac pacemaker (~10/12/20) Sleep apnea BiPAP (biphasic positive airway pressure) dependence History of pulmonary embolism History of recurrent deep vein thrombosis (DVT) Pulmonary hypertension Former tobacco use Atrial fibrillation Heart failure with preserved ejection fraction Chronic anticoagulation Venous insufficiency Pulmonary HTN History of pulmonary embolus (PE) History of DVT (deep vein thrombosis) Essential hypertension Dyslipidemia COPD (chronic obstructive pulmonary disease) Home Medications ?Medication ?Instructions ?Recorded ?Last Taken ?Type Lactobacillus acidophilus 1 cap PO DAILY [facility] 08/20/20 09/01/20 10:42 History acetazolamide 250 mg tablet 250 mg PO BID EDEMA 08/20/20 09/01/20 08:00 History albuterol sulfate 2.5 mg/3 mL 2.5 mg (3 mL) inhalation Q2H PRN 09/05/20 01/03/24 Rx (0.083 %) solution for nebulization PRN Shortness of Breath/Wheezing docusate sodium 100 mg capsule 100 mg PO BID constipation 09/05/20 Unknown Rx ondansetron HCl 4 mg tablet 4 mg PO Q4H PRN Nausea 07/14/21 Unknown History vit C 250 mg-vit E 90 mg-zinc 40 1 tab PO BID vitami 07/14/21 Unknown History mg-copper 1 [id number] capsule (PreserVision AREDS-2) furosemide 20 mg tablet 20 mg PO DAILY diuretic 01/14/22 Unknown History acetaminophen 500 mg capsule 1,000 mg PO Q8H PRN Pain 04/14/22 Unknown History albuterol sulfate 90 mcg/actuation 2 puff inhalation Q4H PRN PRN 04/14/22 01/03/24 Rx aerosol inhaler (Ventolin HFA) Wheezing ##1 ipratropium 0.5 mg-albuterol 3 mg 3 ml inhalation Q4H PRN Wheezing 08/20/22 Unknown History (2.5 mg base)/3 mL nebulization soln calcium carbonate 600 mg PO DAILY vit 12/31/22 Unknown History cholecalciferol (vitamin D3) 50 50 mcg PO QHS vitami 12/31/22 Unknown History mcg (2,000 unit) tablet (Vitamin D3) citalopram 20 mg tablet 20 mg PO DAILY anxiety 12/31/22 Unknown History cyanocobalamin (vitamin B-12) 500 500 mcg PO DAILY vitamin 12/31/22 Unknown History mcg tablet dextromethorphan HBr 10 mg/5 mL 10 mg PO Q6H PRN Cough 12/31/22 Unknown History oral liquid ipratropium 0.5 mg-albuterol 3 mg 3 ml inhalation TID breathing 12/31/22 Unknown History (2.5 mg base)/3 mL nebulization treatment soln phenylephrine-shark liver 1 applic RI Q6H PRN hemorrhoids 12/31/22 Unknown History oil-mineral oil-petrolatum rectal ointment (Hemorrhoidal ointment) dextrose 40 % oral gel 15 g PO Q15M PRN hypoglycemia 02/08/23 Unknown History glucagon 1 mg solution for 1 mg subcut Q20M PRN hypoglycem 02/08/23 Unknown History injection (Glucagon Emergency Kit) gabapentin 300 mg capsule 300 mg PO QHS nerve pain 03/20/23 Unknown History azithromycin 250 mg tablet 250 mg PO QMWF #36 tabs 04/19/23 Unknown Rx prednisone 10 mg tablet 10 mg PO DAILY steroid #90 tabs 04/19/23 Unknown Rx metoprolol succinate 25 mg 25 mg PO DAILY blood pressure and 09/20/23 Unknown Rx tablet,extended release 24 hr heart rate #90 tabs potassium chloride 20 mEq 40 meq PO BID supplement 09/20/23 Unknown History tablet,extended release apixaban 5 mg tablet (Eliquis) 5 mg PO BID blood thinner 10/01/23 Unknown History bisacodyl 10 mg rectal suppository 10 mg RI DAILY PRN constipation 10/01/23 Unknown History lorazepam 0.5 mg tablet (Ativan) 0.5 mg PO BID anxiety 10/01/23 Unknown History magnesium hydroxide 400 mg/5 mL 30 ml PO DAILY PRN constipation 10/01/23 Unknown History oral suspension (Milk of Magnesia) mineral oil (Fleet Mineral Oil 118 ml RI DAILY PRN constipation 10/01/23 Unknown History enema) pantoprazole 20 mg tablet,delayed 20 mg PO DAILY GERd 10/01/23 Unknown History release polyethylene glycol 3350 17 17 g PO DAILY PRN constipation 10/01/23 Unknown History gram/dose oral powder (Miralax) budesonide 1 mg/2 mL suspension 1 mg inhalation DAILY breathing 01/03/24 Unknown History for nebulization treatment melatonin 3 mg tablet 3 mg PO QHS sleep 01/03/24 Unknown History Allergy/AdvReac Type Severity Reaction Status Date / Time amlodipine besylate (From AdvReac ANKLE AND Verified 02/28/24 20:25 [facility]) LEG EDEMA codeine AdvReac MENTAL Verified 02/28/24 20:25 STATUS CHANGE lisinopril AdvReac COUGH Verified 02/28/24 20:25 Family History Sister Heart disease Surgical History Hx of atrioventricular node ablation tailbone surgery History of cholecystectomy History of total hysterectomy Social History household members: none housing: senior living Smoking Status: Former smoker how long ago did patient quit smoking: Approxiomately 2003 alcohol intake: never substance use type: does not use caffeine: No ROS ROS ED ROS Narrative Constitutional: Denies any fevers, chills, headaches, lightheadedness, dizziness Eyes: Denies changes in vision double vision blurry vision Cardiovascular: Denies chest pain palpitations Respiratory: Complains of shortness of breath as noted above denies any increase in sputum production Abdomen: Denies abdominal pain nausea vomit diarrhea : Denies any urinary symptoms Neurological: Denies numbness, weakness, tingling Musculoskeletal: Denies any back pain complains of bilateral lower extremity swelling as noted above Skin: Denies rashes lesions EXAM Physical Exam Narrative Exam Narrative: General: Patient lying in bed rest comfortably did not appear to be in acute distress Head: Atraumatic, normocephalic Eyes: PERRL bilaterally, EOMI bilateral, no conjunctival injection noted Neck: Soft, supple, trachea midline Cardiovascular: Patient is tachycardic with a regular rhythm no murmurs gallops rubs noted Respiratory: Patient has end expiratory wheezing diffusely on exam Abdomen: No tenderness to palpation, soft Extremities: Patient has 2+ pitting edema in the bilateral lower extremities, DP pulses +2/4 in the bilateral lower extremities Neurological: Patient following commands knew that she was at [facility] year is 2023 Skin: Warm, dry, tact Const Vital Signs: 02/28/24 20:25 02/28/24 20:31 02/28/24 20:31 Temperature 96.7 F L 96.7 F L Temperature Source Temporal Temporal Pulse Rate 60 60 Respiratory Rate 22 H 24 H Respiratory Effort Short of Breath Labored Respiratory Pattern Tachypnea Blood Pressure 166/65 H 166/65 H Blood Pressure Mean 98 98 Pulse Ox 98 98 Oxygen Delivery Method Nasal Cannula Nasal Cannula Nasal Cannula Oxygen Flow Rate (L/min) 4.5 4.5 4.5 02/28/24 20:54 02/28/24 21:10 02/28/24 21:10 Temperature Temperature Source Pulse Rate 60 Respiratory Rate 26 H Respiratory Effort Respiratory Pattern Tachypnea Blood Pressure Blood Pressure Mean Pulse Ox 98 Oxygen Delivery Method Nasal Cannula Nasal Cannula Oxygen Flow Rate (L/min) 4.5 4 02/28/24 21:26 02/28/24 21:30 02/28/24 22:00 Temperature 96.9 F L 96.9 F L Temperature Source Temporal Temporal Pulse Rate 60 60 Respiratory Rate 24 H 20 H Respiratory Effort Respiratory Pattern Blood Pressure 152/78 H 150/72 H Blood Pressure Mean 99 98 Pulse Ox 98 96 99 Oxygen Delivery Method Nasal Cannula Nasal Cannula Nasal Cannula Oxygen Flow Rate (L/min) 4 4 4 02/28/24 23:00 02/28/24 23:14 Temperature 98.3 F 98.3 F Temperature Source Oral Pulse Rate 60 60 Respiratory Rate 22 H 24 H Respiratory Effort Respiratory Pattern Blood Pressure 162/84 H 162/84 H Blood Pressure Mean 110 110 Pulse Ox 99 99 Oxygen Delivery Method Nasal Cannula Oxygen Flow Rate (L/min) 4 MDM MDM MDM Narrative Medical decision making narrative: Patient is a 78-year-old female who presents to the emergency department with chief complaint of worsening dyspnea on exertion. Patient will have a workup performed here on the differential diagnose includes Melamin to CHF exacerbation, pneumonia, COPD exacerbation, ACS. Once workup is obtained reviewed she will be reevaluated. Patient will not be given IV fluids as his concern for hypervolemic state. Patient be given 3 DuoNebs and Solu-Medrol. Patient's CBC reviewed and was significant for leukocytosis of 11,000 however this is improved from previous blood draw she is chronically on steroids likely be reactive, hemoglobin was 9 which is around her baseline, platelet count normal at 257. Patient's sodium normal 142, potassium normal 4.8, creatinine normal at 0.80. Patient's BNP is mildly elevated 143, troponin was normal at 26. Patient's EKG reviewed and showed a ventricular paced rhythm with a rate of 60 bpm no Sgarbossa criteria were met. Patient's chest x-ray reviewed and showed no significant interval change or acute processes. On reevaluation the patient she states that she does not feel well and still feels very short of breath with minimal movement. Given her 2+ pitting edema in the bilateral lower extremities with her symptoms I do believe she warrants admission to the hospital. Did discuss the case with hospitalist Dr. Mooney who accept patient for admission. Patient was notified with all question concerns answered bedside. Patient was given 40 mg of IV Lasix. Lab Data Labs: Laboratory Results - last 24 hr 02/28/24 21:02 WBC 11.6 H RBC 3.95 L Hgb 9.0 L Hct 33.6 L MCV 85.1 MCH 22.8 L MCHC 26.8 L RDW Std Deviation 55.7 H RDW Coeff of Laura 18.1 H Plt Count 257 MPV 11.7 Immature Gran % (Auto) 0.600 Neut % (Auto) 76.5 H Lymph % (Auto) 14.4 L [place] % (Auto) 7.2 Eos % (Auto) 1.0 Baso % (Auto) 0.3 Absolute Neuts (auto) 8.9 H Absolute Lymphs (auto) 1.66 Nucleated RBC % 0 Sodium 142 Potassium 4.8 Chloride 107 Carbon Dioxide 34.0 H Anion Gap 1 L BUN 22 H Creatinine 0.80 Estim Creat Clear Calc 64.55 Est GFR (MDRD) Af Amer 89 Est GFR (MDRD) Non-Af 74 BUN/Creatinine Ratio 27.6 H Glucose 96 Calcium 8.8 Troponin I High Sens 26 B-Natriuretic Peptide 141.3 H Radiography Diagnostic Testing: Clinical Impression(s) from Imaging Studies Chest X-Ray 02/28/24 21:35 IMPRESSION: No significant interval change or acute process. Electronically Signed: Ghassan Diaz MD at 22:10 EDT , Discharge Plan Triage Chief Complaint: Shortness of Breath ED Provider: Baljit Cunha Dx/Rx/DC Orders Clinical Impression: Acute and chronic respiratory failure with hypoxia, CHF exacerbation Prescriptions: No Action furosemide 20 mg tablet 20 mg PO DAILY Glucagon Emergency Kit (human) 1 mg recon soln 1 mg subcut Q20M PRN (Reason: hypoglycem) Rx Instructions: until target blood sugar attained dextrose 40 % gel 15 g PO Q15M PRN (Reason: hypoglycemia) Rx Instructions: until symptoms of low blood sugar are controlled azithromycin 250 mg tablet 250 mg PO QMWF Qty: 36 0RF Rx Instructions: Mon, and monday prednisone 10 mg tablet 10 mg PO DAILY Qty: 90 3RF acetazolamide 250 MG tablet 250 mg PO BID Lactobacillus acidophilus 1 EACH capsule 1 cap PO DAILY albuterol sulfate 2.5 MG/3 ML solution for nebulization 2.5 mg INHALATION Q2H PRN PRN (Reason: Shortness of Breath/Wheezing) 0RF docusate sodium 100 MG capsule 100 mg PO BID 0RF ondansetron HCl 4 mg Tablet 4 mg PO Q4H PRN (Reason: Nausea) PreserVision AREDS-2 250-90-40-1 mg Capsule 1 tab PO BID acetaminophen 500 mg Capsule 1,000 mg PO Q8H PRN (Reason: Pain) albuterol sulfate [Ventolin HFA] 90 mcg/actuation HFA aerosol inhaler 2 puff inhalation Q4H PRN PRN (Reason: Wheezing) Qty: 1 0RF ipratropium-albuterol 0.5 mg-3 mg(2.5 mg base)/3 mL Solution For Nebulization 3 ml INHALATION Q4H PRN (Reason: Wheezing) ipratropium-albuterol 0.5 mg-3 mg(2.5 mg base)/3 mL Solution For Nebulization 3 ml INHALATION TID dextromethorphan HBr 10 mg/5 mL Liquid 10 mg PO Q6H PRN (Reason: Cough) calcium carbonate 600 mg calcium (1,500 mg) Tablet 600 mg PO DAILY citalopram 20 mg tablet 20 mg PO DAILY cyanocobalamin (vitamin B-12) 500 mcg Tablet 500 mcg PO DAILY Hemorrhoidal Ointment 1 applic RI Q6H PRN (Reason: hemorrhoids) cholecalciferol (vitamin D3) [Vitamin D3] 50 mcg (2,000 unit) Tablet 50 mcg PO QHS gabapentin 300 mg capsule 300 mg PO QHS bisacodyl 10 mg suppository 10 mg RI DAILY PRN (Reason: constipation) Eliquis 5 mg tablet 5 mg PO BID mineral oil [Fleet Mineral Oil] Enema 118 ml RI DAILY PRN (Reason: constipation) Rx Instructions: discard any unused portion lorazepam [Ativan] 0.5 mg tablet 0.5 mg PO BID magnesium hydroxide [Milk of Magnesia] 400 mg/5 mL suspension 30 ml PO DAILY PRN (Reason: constipation) polyethylene glycol 3350 [Miralax] 17 gram/dose powder 17 g PO DAILY PRN (Reason: constipation) pantoprazole 20 mg tablet,delayed release (DR/EC) 20 mg PO DAILY melatonin 3 mg tablet 3 mg PO QHS budesonide 1 mg/2 mL suspension for nebulization 1 mg inhalation DAILY metoprolol succinate 25 mg tablet extended release 24 hr 25 mg PO DAILY Qty: 90 3RF potassium chloride 20 mEq tablet extended release 40 meq PO BID Primary Care Provider: Tor Lucia Referrals: Tor Lucia MD [Primary Care Provider] - Print Language: Macedonian
[2024-02-29] VITALS (15 sets, daily range): BP systolic 112–167; BP diastolic 53–87; PULSE 60–66; RESP 12–28; TEMP 36.5–36.8; O2SAT 93–100; BMI 33.0
[2024-02-29] MEDS: LORazepam 0.5 MG Tablet PO ×3 (00:27→21:01)
[2024-02-29] MEDS: Doxycycline 100 MG in Dextrose 5%-Water (250mL Bag) 250 ML 250 MG IV ×2 (00:36→10:15)
[2024-02-29 00:37] LABS: International Normalized Ratio 1.2; Prothrombin Time (Protime)PT. 14.8 SECONDS (11.7-14.9)
[2024-02-29] MEDS: Albuterol 2.5 MG/3 ML VIAL.NEB. INHALATION (00:39)
[2024-02-29] MEDS: Ipratropium/Albuterol Sulfate 3 ML AMPUL.NEB INHALATION ×4 (07:16→20:19)
[2024-02-29] MEDS: AcetaZOLAMIDE 250 MG Tablet PO ×2 (08:44→17:00)
[2024-02-29] MEDS: Docusate Sodium 100 MG Capsule PO (08:44)
[2024-02-29] MEDS: Multivitamin (Healthy Eyes) Capsule 1 CAP PO ×2 (08:44→21:03)
[2024-02-29] MEDS: Citalopram 20 MG Tablet PO (08:44)
[2024-02-29] MEDS: Pantoprazole Sodium 20 MG Tablet PO (08:45)
[2024-02-29] MEDS: APIXABAN 5 MG TABLET PO ×2 (08:45→21:01)
[2024-02-29] MEDS: Metoprolol(XL)Succ 25 MG Tablet PO (08:45)
[2024-02-29] MEDS: Cyanocobalamin 500 MCG Tablet PO (08:46)
[2024-02-29] MEDS: Lactobacillis Acidophilus 1 CAP PO (08:46)
[2024-02-29] MEDS: Potassium Chloride Oral Tablet 20 MEQ 40 MEQ PO ×2 (08:46→17:00)
[2024-02-29] MEDS: 0.9% Saline Lock 10 ML Syringe IV ×2 (08:51→13:13)
[2024-02-29] MEDS: Furosemide 40 MG/4 ML Vial IV (08:51)
[2024-02-29] MEDS: MethylPREDNISolone 125 MG/2 ML Vial 60 MG IV ×2 (08:51→21:02)
[2024-02-29] MEDS: Acetaminophen 325 MG Tablet 650 MG PO (09:10)
[2024-02-29] MEDS: Ondansetron ODT 4 MG Tablet PO (10:09)
--- NOTE | 2024-02-29 10:49 | CASEMGMT ---
Addendum entered by Cecily Snyder 02/29/24 11:30: Precert will not be needed to return to snf. Cecily Snyder DC Planning Asst. Original Note: Discharge Planning Updates sent via [facility] to [facility]. Requested confirmation that patient will not need precert to return. Awaiting response. Cecily Snyder DC Planning Asst.
[2024-02-29 13:47] LABS: BNP,B-Type NATRIURETIC PEPTIDE 162.6 pg/mL (0-100)
[2024-02-29] MEDS: Azithromycin 250 MG Tablet 500 MG PO (16:59)
--- NOTE | 2024-02-29 17:10 | PCM.PN.HOSP ---
Reason for Visit Reason for Visit: Diagnoses Obesity, unspecified (02/28/24) Obstructive sleep apnea (adult) (pediatric) (02/28/24) Acute on chronic diastolic (congestive) heart failure (02/28/24) Chronic obstructive pulmonary disease with (acute) exacerbation (02/28/24) Chronic respiratory failure with hypoxia (02/28/24) Other abnormalities of breathing (02/28/24) Subjective Subjective Patient was seen and examined today, she is currently on 2 L via nasal cannula, I reviewed her medical record, I do not feel the patient has congestive heart failure at this time, I think it is more than likely she has a flareup of COPD. I elected to stop her IV Vibramycin and place her on oral Zithromax, IV corticosteroids will be continued, IV Lasix was converted to p.o. Lasix for daily use. Objective Data Objective Data Vital Signs: Vital Signs Temp Pulse Resp BP Pulse Ox O2 Del Method O2 Flow Rate 98.2 F 61 18 130/68 H 99 Nasal Cannula 2 02/29/24 14:55 02/29/24 14:55 02/29/24 14:55 02/29/24 14:55 02/29/24 14:55 02/29/24 14:55 02/29/24 14:55 FiO2 30 02/29/24 12:46 Oxygen Flow Rate (L/min) 2 Oxygen Delivery Method Nasal Cannula Weight: 95.6 kg Body Mass Index (BMI) 33.0 Intake & Output: Intake and Output for Last 24 Hours 02/27/24 02/28/24 02/29/24 23:59 23:59 23:59 Intake Total 520 / 520 Output Total 700 / 700 Balance -180 / -180 Lab / Micro Data 02/28/24 21:02 02/28/24 21:02 Labs: Laboratory Results - last 24 hr 02/28/24 21:02: WBC 11.6 H, RBC 3.95 L, Hgb 9.0 L, Hct 33.6 L, MCV 85.1, MCH 22.8 L, MCHC 26.8 L, RDW Std Deviation 55.7 H, RDW Coeff of Laura 18.1 H, Plt Count 257, MPV 11.7, Immature Gran % (Auto) 0.600, Neut % (Auto) 76.5 H, Lymph % (Auto) 14.4 L, [place] % (Auto) 7.2, Eos % (Auto) 1.0, Baso % (Auto) 0.3, Absolute Neuts (auto) 8.9 H, Absolute Lymphs (auto) 1.66, Nucleated RBC % 0, Sodium 142, Potassium 4.8, Chloride 107, Carbon Dioxide 34.0 H, Anion Gap 1 L, BUN 22 H, Creatinine 0.80, Estim Creat Clear Calc 64.55, Est GFR (MDRD) Af Amer 89, Est GFR (MDRD) Non-Af 74, BUN/Creatinine Ratio 27.6 H, Glucose 96, Calcium 8.8, Troponin I High Sens 26, B-Natriuretic Peptide 141.3 H 02/29/24 00:08: PT 14.8, INR 1.2 02/29/24 05:36: B-Natriuretic Peptide 162.6 H Micro: Microbiology 02/28/24 20:58 Mucosa - Nose SARS-CoV-2, Influenza & RSV (PCR) - Final Radiography Diagnostic Testing: Radiology Impression Chest X-Ray 02/28/24 21:35 IMPRESSION: No significant interval change or acute process. Electronically Signed: Ghassan Diaz MD at 22:10 EDT , Physical Exam Const alert, oriented x3 and no apparent distress General Appearance: cooperative, well kempt and well developed Orientation / Consciousness: awake, oriented to person, oriented to place and oriented to time HEENT normocephalic, head/scalp atraumatic and moist oral mucous membranes Eyes PERRL, EOMs intact bilaterally and conjunctivae normal Neck supple, no JVD, thyroid normal and no carotid bruits General: trachea midline Resp normal respiratory effort, no retractions and no use of accessory muscles Resp Narrative: Scattered expiratory rhonchi are noted bilaterally Auscultation: rhonchi; Negative for rales or wheezes Cardio regular rate, regular rhythm, S1 normal heart sound, S2 normal heart sound, no murmurs, no rub and no gallops GI normal to inspection, nondistended, normoactive bowel sounds, soft to palpation, non-tender and non-distended Extremity no clubbing, cyanosis or edema Skin no rashes or lesions noted General Skin Exam: no breakdown Neuro oriented x3, CN's II-XII intact bilaterally, moves all extremities, no focal motor deficits and no sensory deficits noted Sensorium / Orientation: awake and alert Speech: speech normal Psych affect normal Assessment & Plan Assessment/Plan (1) COPD with exacerbation: PLAN: Plan 1. Acute exacerbation of COPD-continue IV corticosteroids, aerosol treatments, and Zithromax, monitor pulse ox #2 hypoxia on a backdrop of chronic hypoxic respiratory failure-patient is currently on 2 L via nasal cannula at rest which is her baseline oxygen requirement (2 to 4 L), pulse ox will be monitored #3 chronic diastolic CHF without exacerbation-continue her present medications including Lasix, again I do not think this is an acute exacerbation of CHF #4 chronic depression-patient is on citalopram #5 paroxysmal atrial fibrillation-patient is on Eliquis and metoprolol #6 chronic debility secondary to multiple medical problems including chronic hypoxic respiratory failure and COPD-complicates care, management, recovery, and prognosis Total clinical time spent by myself addressing the patient's medical issues, reviewing all of her data, and collaborating with patient's care team: 35 minutes Charges/Coding Visit Charges Inpatient E&M: 10334 Subs Hosp L2
[2024-02-29] MEDS: Gabapentin 300 MG Capsule PO (21:01)
[2024-02-29] MEDS: MELATONIN 3 MG TABLET PO (21:01)
[2024-02-29] MEDS: Cholecalciferol (VIT D3) 25 MCG TABLET (1,000 UNITS) 50 MCG PO (21:02)
[2024-03-01] VITALS (11 sets, daily range): BP systolic 97–144; BP diastolic 53–101; PULSE 59–66; RESP 12–22; TEMP 36.2–36.6; O2SAT 90–100; BMI 32.7
[2024-03-01] MEDS: Ipratropium/Albuterol Sulfate 3 ML AMPUL.NEB INHALATION ×5 (00:03→15:17)
[2024-03-01] MEDS: AcetaZOLAMIDE 250 MG Tablet PO (07:52)
[2024-03-01] MEDS: Pantoprazole Sodium 20 MG Tablet PO (07:53)
[2024-03-01] MEDS: Citalopram 20 MG Tablet PO (07:53)
[2024-03-01] MEDS: APIXABAN 5 MG TABLET PO (07:54)
[2024-03-01] MEDS: LORazepam 0.5 MG Tablet PO (09:30)
[2024-03-01] MEDS: Azithromycin 250 MG Tablet 500 MG PO (09:30)
[2024-03-01] MEDS: 0.9% Saline Lock 10 ML Syringe IV (09:30)
[2024-03-01] MEDS: Furosemide 40 MG Tablet PO (09:30)
[2024-03-01] MEDS: Metoprolol(XL)Succ 25 MG Tablet PO (09:30)
[2024-03-01] MEDS: MethylPREDNISolone 125 MG/2 ML Vial 60 MG IV (09:30)
--- NOTE | 2024-03-01 11:07 | CASEMGMT ---
Discharge Planning Updated Avenue that patient will return today. Cecily Snyder DC Planning Asst.
--- NOTE | 2024-03-01 11:38 | PCM.TXEXTCAR ---
Diet Diet Order/Speech Therapy: 02/29/24 04:32 Diet: Cardiac - Heart Healthy Dietary Modifications:: Cardiac / Heart Healthy Routine Orders/Code Status O2 Liters per Minute: 2-4 liters O2 Frequency: Continuous Keep PO Greater than or Equal to (%): 90 Code Status: DNRCC-A Therapies Weight Bearing: Full weight bearing Problem/Diagnosis (1) COPD with exacerbation: Status: Chronic Code(s): J44.1 - Chronic obstructive pulmonary disease with (acute) exacerbation Plan 1. Acute exacerbation of COPD-continue IV corticosteroids, aerosol treatments, and Zithromax, monitor pulse ox #2 hypoxia on a backdrop of chronic hypoxic respiratory failure-patient is currently on 2 L via nasal cannula at rest which is her baseline oxygen requirement (2 to 4 L), pulse ox will be monitored #3 chronic diastolic CHF without exacerbation-continue her present medications including Lasix, again I do not think this is an acute exacerbation of CHF #4 chronic depression-patient is on citalopram #5 paroxysmal atrial fibrillation-patient is on Eliquis and metoprolol #6 chronic debility secondary to multiple medical problems including chronic hypoxic respiratory failure and COPD-complicates care, management, recovery, and prognosis Total clinical time spent by myself addressing the patient's medical issues, reviewing all of her data, and collaborating with patient's care team: 35 minutes Allergies/Procedures Done in Hospital Allergies amlodipine besylate (From [facility]) Adverse Reaction (Verified 02/28/24 20:25) ANKLE AND LEG EDEMA RESOLVED OFF MED-PER PCP PAPERWORK codeine Adverse Reaction (Verified 02/28/24 20:25) MENTAL STATUS CHANGE lisinopril Adverse Reaction (Verified 02/28/24 20:25) COUGH Procedures: None Type of Care/Length of Stay Estimated LOS: More Than 30 Days Type of Care Needed: Intermediate Rehab Potential: Fair Prognosis: Fair Additional Orders/Day of Discharge H&P will serve as current which was dated: 02/28/24 Day of Discharge: 03/01/24 Dietary and Speech Recommendations Dietitian Recommendations/Changes: Continue cardiac heart healthy diet. If PO intake declines, will add ONS. Reviewed and approved by Imani Ochoa RD, LD. Discharge Plan Admission Admit Date/Time: 02/28/24 23:29 Primary Reason for Your Visit: exacerbation of COPD Attending Provider: Reji Holt Primary Care Provider: Tor Lucia Consulting Providers: Freddy Mooney Discharge Orders/Prescriptions Prescriptions: New dextromethorphan-guaifenesin 10-100 mg/5 mL Syrup 10 ml PO Q6H PRN PRN (Reason: Cough) Qty: 0 0RF furosemide 40 mg Tablet 40 mg PO DAILY Qty: 0 0RF ipratropium-albuterol 0.5 mg-3 mg(2.5 mg base)/3 mL Solution For Nebulization 3 ml inhalation Q4H Qty: 0 0RF prednisone 20 mg tablet 20 mg PO BID Qty: 1 0RF Rx Instructions: one twice a day for 5 days, then reduce to 10 mg daily after that lorazepam 0.5 mg Tablet 0.5 mg PO BID Qty: 4 0RF Continued azithromycin 250 mg tablet 250 mg PO QMWF Qty: 36 0RF Rx Instructions: Mon, and monday acetazolamide 250 MG tablet 250 mg PO BID Lactobacillus acidophilus 1 EACH capsule 1 cap PO DAILY albuterol sulfate 2.5 MG/3 ML solution for nebulization 2.5 mg INHALATION Q2H PRN PRN (Reason: Shortness of Breath/Wheezing) 0RF docusate sodium 100 MG capsule 100 mg PO BID 0RF ondansetron HCl 4 mg Tablet 4 mg PO Q4H PRN (Reason: Nausea) PreserVision AREDS-2 250-90-40-1 mg Capsule 1 tab PO BID acetaminophen 500 mg Capsule 1,000 mg PO Q8H PRN (Reason: Pain) calcium carbonate 600 mg calcium (1,500 mg) Tablet 600 mg PO DAILY citalopram 20 mg tablet 20 mg PO DAILY cyanocobalamin (vitamin B-12) 500 mcg Tablet 500 mcg PO DAILY cholecalciferol (vitamin D3) [Vitamin D3] 50 mcg (2,000 unit) Tablet 50 mcg PO QHS gabapentin 300 mg capsule 300 mg PO QHS bisacodyl 10 mg suppository 10 mg [place] DAILY PRN (Reason: constipation) Eliquis 5 mg tablet 5 mg PO BID pantoprazole 20 mg tablet,delayed release (DR/EC) 20 mg PO DAILY melatonin 3 mg tablet 3 mg PO QHS metoprolol succinate 25 mg tablet extended release 24 hr 25 mg PO DAILY Qty: 90 3RF potassium chloride 20 mEq tablet extended release 40 meq PO BID Changed budesonide 1 mg/2 mL suspension for nebulization 1 mg inhalation 2XD Qty: 60 0RF Discontinued furosemide 20 mg tablet 20 mg PO DAILY Glucagon Emergency Kit (human) 1 mg recon soln 1 mg subcut Q20M PRN (Reason: hypoglycem) Rx Instructions: until target blood sugar attained dextrose 40 % gel 15 g PO Q15M PRN (Reason: hypoglycemia) Rx Instructions: until symptoms of low blood sugar are controlled prednisone 10 mg tablet 10 mg PO DAILY Qty: 90 3RF albuterol sulfate [Ventolin HFA] 90 mcg/actuation HFA aerosol inhaler 2 puff inhalation Q4H PRN PRN (Reason: Wheezing) Qty: 1 0RF ipratropium-albuterol 0.5 mg-3 mg(2.5 mg base)/3 mL Solution For Nebulization 3 ml INHALATION Q4H PRN (Reason: Wheezing) ipratropium-albuterol 0.5 mg-3 mg(2.5 mg base)/3 mL Solution For Nebulization 3 ml INHALATION TID dextromethorphan HBr 10 mg/5 mL Liquid 10 mg PO Q6H PRN (Reason: Cough) Hemorrhoidal Ointment 1 applic TX Q6H PRN (Reason: hemorrhoids) mineral oil [Fleet Mineral Oil] Enema 118 ml TX DAILY PRN (Reason: constipation) Rx Instructions: discard any unused portion magnesium hydroxide [Milk of Magnesia] 400 mg/5 mL suspension 30 ml PO DAILY PRN (Reason: constipation) polyethylene glycol 3350 [Miralax] 17 gram/dose powder 17 g PO DAILY PRN (Reason: constipation) Referrals / Follow Up: Tor Lucia MD [Primary Care Provider] - Disposition Disposition (needs filled in before D/C Order can be placed): NonSkilled NH/Intermed Care
--- NOTE | 2024-03-01 12:08 | DS.PCM_ITS ---
Providers Date of Admission: 02/28/24 Date of Discharge: 03/01/24 Primary Care Physician: Dr. Tor Lucia MD Reason For Visit: AE COPD WITH AE OF CHRONIC DIASTOLIC CHF AND Diagnosis Discharge Diagnosis (1) COPD with exacerbation: Status: Chronic Code(s): J44.1 - Chronic obstructive pulmonary disease with (acute) exacerbation Plan 1. Acute exacerbation of COPD-continue IV corticosteroids, aerosol treatments, and Zithromax, monitor pulse ox #2 hypoxia on a backdrop of chronic hypoxic respiratory failure-patient is currently on 2 L via nasal cannula at rest which is her baseline oxygen requirement (2 to 4 L), pulse ox will be monitored #3 chronic diastolic CHF without exacerbation-continue her present medications including Lasix, again I do not think this is an acute exacerbation of CHF #4 chronic depression-patient is on citalopram #5 paroxysmal atrial fibrillation-patient is on Eliquis and metoprolol #6 chronic debility secondary to multiple medical problems including chronic hypoxic respiratory failure and COPD-complicates care, management, recovery, and prognosis Total clinical time spent by myself addressing the patient's medical issues, reviewing all of her data, and collaborating with patient's care team: 35 minutes Medications at Discharge Home Medications Lactobacillus acidophilus 1 cap PO DAILY [facility] 08/20/20 acetazolamide 250 mg tablet 250 mg PO BID EDEMA 08/20/20 albuterol sulfate 2.5 mg/3 mL (0.083 %) solution for nebulization 2.5 mg (3 mL) inhalation Q2H PRN PRN Shortness of Breath/Wheezing 09/05/20 docusate sodium 100 mg capsule 100 mg PO BID constipation 09/05/20 ondansetron HCl 4 mg tablet 4 mg PO Q4H PRN Nausea 07/14/21 vit C 250 mg-vit E 90 mg-zinc 40 mg-copper 1 [id number] capsule (PreserVision AREDS-2) 1 tab PO BID vitami 07/14/21 acetaminophen 500 mg capsule 1,000 mg PO Q8H PRN Pain 04/14/22 calcium carbonate 600 mg PO DAILY health maintenance 12/31/22 cholecalciferol (vitamin D3) 50 mcg (2,000 unit) tablet (Vitamin D3) 50 mcg PO QHS vitami 12/31/22 citalopram 20 mg tablet 20 mg PO DAILY depression 12/31/22 cyanocobalamin (vitamin B-12) 500 mcg tablet 500 mcg PO DAILY vitamin 12/31/22 gabapentin 300 mg capsule 300 mg PO QHS nerve pain 03/20/23 azithromycin 250 mg tablet 250 mg PO QMWF prophylaxis #36 tabs 04/19/23 metoprolol succinate 25 mg tablet,extended release 24 hr 25 mg PO DAILY blood pressure and heart rate #90 tabs 09/20/23 potassium chloride 20 mEq tablet,extended release 40 meq PO BID supplement 09/20/23 apixaban 5 mg tablet (Eliquis) 5 mg PO BID blood thinner 10/01/23 bisacodyl 10 mg rectal suppository 10 mg IA DAILY PRN constipation 10/01/23 pantoprazole 20 mg tablet,delayed release 20 mg PO DAILY GERd 10/01/23 melatonin 3 mg tablet 3 mg PO QHS sleep 01/03/24 budesonide 1 mg/2 mL suspension for nebulization 1 mg (2 mL) inhalation 2XD breathing treatment #60 mL 03/01/24 dextromethorphan-guaifenesin 10 mg-100 mg/5 mL oral syrup 10 ml PO Q6H PRN PRN Cough #0 mL 03/01/24 furosemide 40 mg tablet 40 mg PO DAILY #0 tabs 03/01/24 ipratropium 0.5 mg-albuterol 3 mg (2.5 mg base)/3 mL nebulization soln 3 ml inhalation Q4H #0 mL 03/01/24 lorazepam 0.5 mg tablet 0.5 mg PO BID #4 tabs 03/01/24 prednisone 20 mg tablet 20 mg PO BID #1 TAB 03/01/24 Hospital Course Operations None Procedures None Summary of Care Provided Minutes Spent on Discharge: 33 Hospital Course: This 78-year-old white female was seen in the emergency room at [facility] after being transported from a local detention where she was residing under intermediate care due to shortness of breath. Patient is on chronic oxygen due to chronic hypoxic respiratory failure. Workup in the emergency room included a CBC which was abnormal for a white blood cell count of 11.6, hemoglobin was 9, chemistry profile was remarkable for BUN of 22, patient's beta nitric peptide was elevated at 141. Chest x-ray showed no acute process, patient was given IV Lasix in the emergency room and hospitalist service was contacted for admission. Patient was admitted to PCU for exacerbation of COPD she was given diuretics and aerosol treatments and IV corticosteroid, she improved over her hospital stay. Her oxygen was able to be weaned down. On 03/01/2024, patient was seen and examined: On examination she appeared in good health and spirits, she does not appear to be in any distress. Vital signs as documented. Skin warm and dry and without overt rashes. Neck without JVD, thyroid appears normal, trachea is midline, neck is supple. Lungs clear, normal air movement was noted. Heart exam notable for regular rhythm, normal sounds and absence of murmurs, rubs or gallops. Abdomen unremarkable and without evidence of organomegaly, masses, or abdominal aortic enlargement, bowel sounds are present in all 4 quadrants, no abdominal tenderness was noted. Extremities nonedematous, no cyanosis was noted, no clubbing was noted. Neuro: Cranial nerves II through XII are grossly intact, no focal motor deficits were noted, sensation to light touch and pinprick is intact, motor exam 5/5 throughout. Psych: Patient is alert and oriented x3, she does not appear anxious or depressed, she does not appear agitated. Patient was transported back to her intermediate care detention in stable condition on 03/01/2024 Weight / BMI Weight Weight: 94.8 kg Body Mass Index (BMI) 32.7 ABG / Lab / Microbiology Data 02/28/24 21:02 02/28/24 21:02 Laboratory: Laboratory Results - last 24 hr 02/29/24 05:36: B-Natriuretic Peptide 162.6 H Microbiology: Microbiology 02/28/24 20:58 Mucosa - Nose SARS-CoV-2, Influenza & RSV (PCR) - Final Meaningful Use Info Meaningful Use Meaningful Use Diagnoses (Choose all that apply): None applicable Ischemic Stroke Statin Dosing Therapy Reference: STATIN DOSE THERAPY REFERENCE: * Patients > 75 years receive moderate or high dose statin therapy. * Patients 75 years or YOUNGER should receive HIGH intensity statin dose unless contraindicated. You will be required to document reason for non-treatment if statin daily dose does not meet guidelines. HIGH DOSE STATIN THERAPY DAILY Atorvastatin > than or = to 40 mg Rosuvastatin > than or = to 20 mg Amlodipine + Atorvastatin > than or = to 2.5/40 mg Ezetimibe + Simvastatin 10/80 mg Simvastatin 80mg Discharge Plan Admission Admit Date/Time: 02/28/24 23:29 Primary Reason for Your Visit: exacerbation of COPD Attending Provider: Reji Holt Primary Care Provider: Tor Lucia Consulting Providers: Freddy Mooney Discharge Orders/Prescriptions Prescriptions: New dextromethorphan-guaifenesin 10-100 mg/5 mL Syrup 10 ml PO Q6H PRN PRN (Reason: Cough) Qty: 0 0RF furosemide 40 mg Tablet 40 mg PO DAILY Qty: 0 0RF ipratropium-albuterol 0.5 mg-3 mg(2.5 mg base)/3 mL Solution For Nebulization 3 ml inhalation Q4H Qty: 0 0RF prednisone 20 mg tablet 20 mg PO BID Qty: 1 0RF Rx Instructions: one twice a day for 5 days, then reduce to 10 mg daily after that lorazepam 0.5 mg Tablet 0.5 mg PO BID Qty: 4 0RF Continued azithromycin 250 mg tablet 250 mg PO QMWF Qty: 36 0RF Rx Instructions: Mon, and monday acetazolamide 250 MG tablet 250 mg PO BID Lactobacillus acidophilus 1 EACH capsule 1 cap PO DAILY albuterol sulfate 2.5 MG/3 ML solution for nebulization 2.5 mg INHALATION Q2H PRN PRN (Reason: Shortness of Breath/Wheezing) 0RF docusate sodium 100 MG capsule 100 mg PO BID 0RF ondansetron HCl 4 mg Tablet 4 mg PO Q4H PRN (Reason: Nausea) PreserVision AREDS-2 250-90-40-1 mg Capsule 1 tab PO BID acetaminophen 500 mg Capsule 1,000 mg PO Q8H PRN (Reason: Pain) calcium carbonate 600 mg calcium (1,500 mg) Tablet 600 mg PO DAILY citalopram 20 mg tablet 20 mg PO DAILY cyanocobalamin (vitamin B-12) 500 mcg Tablet 500 mcg PO DAILY cholecalciferol (vitamin D3) [Vitamin D3] 50 mcg (2,000 unit) Tablet 50 mcg PO QHS gabapentin 300 mg capsule 300 mg PO QHS bisacodyl 10 mg suppository 10 mg IA DAILY PRN (Reason: constipation) Eliquis 5 mg tablet 5 mg PO BID pantoprazole 20 mg tablet,delayed release (DR/EC) 20 mg PO DAILY melatonin 3 mg tablet 3 mg PO QHS metoprolol succinate 25 mg tablet extended release 24 hr 25 mg PO DAILY Qty: 90 3RF potassium chloride 20 mEq tablet extended release 40 meq PO BID Changed budesonide 1 mg/2 mL suspension for nebulization 1 mg inhalation 2XD Qty: 60 0RF Discontinued furosemide 20 mg tablet 20 mg PO DAILY Glucagon Emergency Kit (human) 1 mg recon soln 1 mg subcut Q20M PRN (Reason: hypoglycem) Rx Instructions: until target blood sugar attained dextrose 40 % gel 15 g PO Q15M PRN (Reason: hypoglycemia) Rx Instructions: until symptoms of low blood sugar are controlled prednisone 10 mg tablet 10 mg PO DAILY Qty: 90 3RF albuterol sulfate [Ventolin HFA] 90 mcg/actuation HFA aerosol inhaler 2 puff inhalation Q4H PRN PRN (Reason: Wheezing) Qty: 1 0RF ipratropium-albuterol 0.5 mg-3 mg(2.5 mg base)/3 mL Solution For Nebulization 3 ml INHALATION Q4H PRN (Reason: Wheezing) ipratropium-albuterol 0.5 mg-3 mg(2.5 mg base)/3 mL Solution For Nebulization 3 ml INHALATION TID dextromethorphan HBr 10 mg/5 mL Liquid 10 mg PO Q6H PRN (Reason: Cough) Hemorrhoidal Ointment 1 applic IA Q6H PRN (Reason: hemorrhoids) mineral oil [Fleet Mineral Oil] Enema 118 ml IA DAILY PRN (Reason: constipation) Rx Instructions: discard any unused portion lorazepam [Ativan] 0.5 mg tablet 0.5 mg PO BID magnesium hydroxide [Milk of Magnesia] 400 mg/5 mL suspension 30 ml PO DAILY PRN (Reason: constipation) polyethylene glycol 3350 [Miralax] 17 gram/dose powder 17 g PO DAILY PRN (Reason: constipation) Referrals / Follow Up: Tor Lucia MD [Primary Care Provider] - Disposition Disposition (needs filled in before D/C Order can be placed): NonSkilled NH/Intermed Care Charges/Coding Visit Charges Inpatient E&M: 47260 Disch Hosp >30min
--- NOTE | 2024-03-01 12:35 | CASEMGMT ---
Discharge Planning Discharge orders, signed med list, and transport time sent to [facility] via [facility]. Physicians will transport patient by cot at 2:30p. Nursing, SW, patient, and her daughter (Irene) updated. Cecily Snyder DC Planning Asst.
--- NOTE | 2024-03-01 13:30 | NURSING ---
Report called to GUERO Mejia at [facility]. Planned pickup time is 1430
--- NOTE | 2024-03-01 13:54 | CASEMGMT ---
Patient is ready for discharge back to [facility]. Physicians will transport patient. Plan: d/c back to [facility] under intermediate level of care. Regla VIZCARRA
== END 2024-03-01 16:39 | DRG 191 ==
LOC: ED 20:59 → PCU 23:27
PROVIDERS: Admitting Provider Internal Medicine; Emergency Provider Emergency Medicine; PCP Family Medicine; Visit Provider Internal Medicine
DX: J44.1 Chronic obstructive pulmonary disease with (acute) exacerbation (principal); J96.11 Chronic respiratory failure with hypoxia; I50.32 Chronic diastolic (congestive) heart failure; I49.5 Sick sinus syndrome; I11.0 Hypertensive heart disease with heart failure; F32.A Depression, unspecified; E66.9 Obesity, unspecified; I48.0 Paroxysmal atrial fibrillation; E78.5 Hyperlipidemia, unspecified; G47.33 Obstructive sleep apnea (adult) (pediatric); K21.9 Gastro-esophageal reflux disease without esophagitis; F41.9 Anxiety disorder, unspecified; Z66 Do not resuscitate; Z95.0 Presence of cardiac pacemaker; Z68.37 Body mass index [BMI] 37.0-37.9, adult; Z99.81 Dependence on supplemental oxygen; Z79.01 Long term (current) use of anticoagulants; Z79.52 Long term (current) use of systemic steroids; Z79.899 Other long term (current) drug therapy; Z86.711 Personal history of pulmonary embolism; Z86.718 Personal history of other venous thrombosis and embolism; Z87.891 Personal history of nicotine dependence
CPT/HCPCS: 36415; 71046; 80048; 83880; 84484; 85025; 85610; 87631; 93005; 94002; 94003; 94640; 94762; 99285; A4216; J1940

== ENCOUNTER 2024-03-17 22:21 | Emergency (ER) | payer MEDICARE, MEDICAID, SELFPAY ==
[2024-03-17 22:22] VITALS: BP 157/61; PULSE 60; RESP 21; TEMP 36.8; O2SAT 95; BMI 34.0
[2024-03-17 23:26] VITALS: PULSE 60; RESP 19; O2SAT 95
[2024-03-17 23:30] VITALS: BP 177/152
--- NOTE | 2024-03-17 23:30 | CT_ITS ---
EXAM: CT HEAD WITHOUT INTRAVENOUS CONTRAST CLINICAL INDICATION: altered mental status TECHNIQUE: Multiple axial images were obtained of the head without intravenous contrast. This CT exam was performed using one or more of the following dose reduction techniques: automated exposure control, adjustment of the mA and/or kV according to patient size, and/or use of iterative reconstruction technique. RADIATION DOSE: CTDIvol = 44.99 mGy, DLP = 829.85 mGy-cm COMPARISON: Head CT 09/12/2023 FINDINGS: BRAIN AND EXTRA-AXIAL SPACES: Diffuse cerebral volume loss. Periventricular small vessel ischemic changes. No intra- or extra-axial hemorrhage. No intracranial mass or mass effect. Posterior fossa structures are unremarkable. No hydrocephalus. Basal cisterns are patent. BONES/JOINTS: Unremarkable. No discrete lytic or blastic abnormalities. VASCULATURE: Vascular calcifications. SINUSES: Unremarkable as visualized. Clear. MASTOID AIR CELLS: Unremarkable. Clear. ORBITS: Visualized globes, extraocular muscles, optic nerves and retrobulbar fat appear unremarkable. CT/Brain/Head without Contrast IMPRESSION: 1. No acute intracranial abnormalities. 2. Age-related changes. Electronically Signed: Ti Palma MD at 23:48 EDT ,
--- NOTE | 2024-03-17 23:30 | RAD_ITS ---
EXAM: XR CHEST, 1 VIEW CLINICAL INDICATION: dyspnea TECHNIQUE: Frontal view of the chest. COMPARISON: Single view chest 02/28/2024 FINDINGS: LUNGS AND PLEURAL SPACES: Bibasilar airspace disease and small pleural effusions. No pneumothorax. HEART: Unremarkable. Cardiac silhouette not enlarged. MEDIASTINUM: Central airways and mediastinal contour are unremarkable. BONES/JOINTS: Unremarkable. No acute fracture. SOFT TISSUES: Unremarkable. TUBES, LINES AND DEVICES: Left chest pacer. RAD/Chest 1 View (Portable) IMPRESSION: Bibasilar airspace disease and small pleural effusions. Findings may indicate atelectasis or infection. Electronically Signed: Ti Palma MD at 23:56 EDT ,
[2024-03-17 23:34] LABS: Absolute Lymphocyte Count 0.37 X10^3/uL (0.83-4.51); Basophil# 0.04 X10^3/uL; Basophil% 0.2 % (0-1); Hematocrit 41.5 % (37-47); Hemoglobin 10.5 g/dL (12.0-15.0); Lymphocyte # 0.37 X10^3/ul (0.83-4.51); Lymphocyte % 1.8 % (19-41); Mean Corp Hgb Conc 25.3 g/dL (32-36); Mean Corpuscular Hgb 23.1 pg (27.0-32.0); Mean Corpuscular Volume 91.2 fL (81-99); Mean Platelet Vol. 11.8 fl (6.2-12.0); Monocyte# 0.99 X10^3/uL; Monocyte% 4.8 % (0-10); NRBC Flagged by Analyzer 0.3 % (0-5); Neutrophil # 18.98 X10^3/uL (2.7-7.7); Neutrophil % 92.4 % (47-70); POSITIVE DIFFERENTIAL YES; Platelet Count 290 K/mm3 (150-450); RBC Distribution Width CV 18.5 % (11.6-14.6); Red Blood Count 4.55 M/mm3 (4.2-5.4); White Blood Count 20.5 K/mm3 (4.4-11.0)
[2024-03-17 23:39] VITALS: PULSE 60; RESP 20; O2SAT 92
[2024-03-17 23:45] VITALS: BP 151/66; PULSE 60; RESP 19; O2SAT 95
[2024-03-17 23:46] LABS: Blood Gas Specimen Type VEN; O2 Delivery Device Cannula; SITE Not entered; VBG BASE EXCESS 7 mmol/L (-1.0-3.5); VBG Bicarbonate 37 mmol/L (22-26); VBG PO2 63 mmHg (25-40); VBG SO2 80 % (50-70); VBG TCO2 40 mmol/L (23-33); VBG pCO2 114.2 mmHg (41-51); VBG pH 7.11 (7.32-7.42)
[2024-03-18] VITALS (19 sets, daily range): BP systolic 133–162; BP diastolic 55–66; PULSE 60–68; RESP 17–24; TEMP 37.3; O2SAT 94–97
[2024-03-18 00:10] LABS: AST(SGOT) 62 U/L (15-37); Alanine Aminotransfer ALT/SGPT 67 U/L (13-56); Albumin, Serum 3.4 g/dL (3.2-5.0); Alkaline Phosphatase 116 U/L (45-117); Anion Gap 1 (5-15); BUN 44 mg/dL (7-18); BUN/Creat Ratio 33.6 RATIO (10-20); Calcium,Total 9.6 mg/dL (8.5-10.1); Chloride 107 mmol/L (98-107); Creatinine, Serum 1.31 mg/dL (0.55-1.02); EST Glomerular Filtration Rate 42 mL/min (>60); Est Glom Filt Rate - Afr Amer 50 mL/min (>60); Estimated Creatinine Clearance 41.29 ml/min; Globulin 3.9 g/dL (2.2-4.2); Glucose 199 mg/dL (74-106); Potassium 6.7 mmol/L (3.5-5.1); Protein, Total 7.3 g/dL (6.4-8.2); Sodium Level 143 mmol/L (136-145)
--- NOTE | 2024-03-18 00:36 | EDS_ITS ---
HPI History of Present Illness Chief Complaint: General Illness Informant: family and SNF Narrative Narrative: Patient is an 78-year-old female with past medical history of paroxysmal atrial fibrillation congestive heart failure and COPD. She was recently in the hospital towards the mid the end of February secondary to CHF exacerbation. She is a DNR with DO NOT INTUBATE status. Family states that she is in hospice and that she received morphine and Ativan today and after she was given this she became more lethargic and difficult to arouse. Family states that they felt it was from the medication so they waited a few hours and when they returned she was still having depressed mental status. The family had concern that the patient may have an infection causing her persistent depressed mental status and therefore requested she be sent to the hospital for evaluation. The patient cannot offer any history based on her mental status [facility] Medical History (Updated 03/18/24 @ 00:[address] Kurt Pratt, ) CHF exacerbation Acute and chronic respiratory failure with hypoxia COPD with exacerbation ANKUSH (obstructive sleep apnea) Chronic hypoxemic respiratory failure DNR (do not resuscitate) CO2 narcosis Chronic anticoagulation Wears glasses Post-menopausal Hematoma History of steroid therapy Diabetes Uses wheelchair Walker as ambulation aid Arthritis Low iron Anemia DVT (deep venous thrombosis) Pulmonary embolism Injury of back Difficulty swallowing Non-smoker On home oxygen therapy Shortness of breath on exertion History of edema History of echocardiogram Cardiology follow-up encounter History of pacemaker History of CHF (congestive heart failure) History of atrial fibrillation History of irregular heartbeat Former smoker Abscess of left leg Skin necrosis Hematoma of left lower leg Wound abscess Elevated troponin Current use of custodial anticoagulation Essential hypertension AV block, complete Tachycardia-bradycardia syndrome Presence of permanent cardiac pacemaker (~10/12/20) Sleep apnea BiPAP (biphasic positive airway pressure) dependence History of pulmonary embolism History of recurrent deep vein thrombosis (DVT) Pulmonary hypertension Former tobacco use Atrial fibrillation Heart failure with preserved ejection fraction Chronic anticoagulation Venous insufficiency Pulmonary HTN History of pulmonary embolus (PE) History of DVT (deep vein thrombosis) Essential hypertension Dyslipidemia COPD (chronic obstructive pulmonary disease) Home Medications ?Medication ?Instructions ?Recorded ?Last Taken ?Type Lactobacillus acidophilus 1 cap PO DAILY [facility] 08/20/20 09/01/20 10:42 History acetazolamide 250 mg tablet 250 mg PO BID EDEMA 08/20/20 09/01/20 08:00 History albuterol sulfate 2.5 mg/3 mL 2.5 mg (3 mL) inhalation Q2H PRN 09/05/20 01/03/24 Rx (0.083 %) solution for nebulization PRN Shortness of Breath/Wheezing docusate sodium 100 mg capsule 100 mg PO BID constipation 09/05/20 Unknown Rx ondansetron HCl 4 mg tablet 4 mg PO Q4H PRN Nausea 07/14/21 Unknown History vit C 250 mg-vit E 90 mg-zinc 40 1 tab PO BID vitami 07/14/21 Unknown History mg-copper 1 [id number] capsule (PreserVision AREDS-2) acetaminophen 500 mg capsule 1,000 mg PO Q8H PRN Pain 04/14/22 Unknown History calcium carbonate 600 mg PO DAILY health maintenance 12/31/22 Unknown History cholecalciferol (vitamin D3) 50 50 mcg PO QHS vitami 12/31/22 Unknown History mcg (2,000 unit) tablet (Vitamin D3) citalopram 20 mg tablet 20 mg PO DAILY depression 12/31/22 Unknown History cyanocobalamin (vitamin B-12) 500 500 mcg PO DAILY vitamin 12/31/22 Unknown History mcg tablet gabapentin 300 mg capsule 300 mg PO QHS nerve pain 03/20/23 Unknown History azithromycin 250 mg tablet 250 mg PO QMWF prophylaxis #36 tabs 04/19/23 Unknown Rx metoprolol succinate 25 mg 25 mg PO DAILY blood pressure and 09/20/23 Unknown Rx tablet,extended release 24 hr heart rate #90 tabs potassium chloride 20 mEq 40 meq PO BID supplement 09/20/23 Unknown History tablet,extended release apixaban 5 mg tablet (Eliquis) 5 mg PO BID blood thinner 10/01/23 Unknown History bisacodyl 10 mg rectal suppository 10 mg UT DAILY PRN constipation 10/01/23 Unknown History pantoprazole 20 mg tablet,delayed 20 mg PO DAILY GERd 10/01/23 Unknown History release melatonin 3 mg tablet 3 mg PO QHS sleep 01/03/24 Unknown History budesonide 1 mg/2 mL suspension 1 mg (2 mL) inhalation 2XD 03/01/24 Unknown Rx for nebulization breathing treatment #60 mL dextromethorphan-guaifenesin 10 10 ml PO Q6H PRN PRN Cough #0 mL 03/01/24 Unknown Rx mg-100 mg/5 mL oral syrup furosemide 40 mg tablet 40 mg PO DAILY #0 tabs 03/01/24 Unknown Rx ipratropium 0.5 mg-albuterol 3 mg 3 ml inhalation Q4H #0 mL 03/01/24 Unknown Rx (2.5 mg base)/3 mL nebulization soln lorazepam 0.5 mg tablet 0.5 mg PO BID #4 tabs 03/01/24 Unknown Rx prednisone 20 mg tablet 20 mg PO BID #1 TAB 03/01/24 Unknown Rx Allergy/AdvReac Type Severity Reaction Status Date / Time amlodipine besylate (From AdvReac ANKLE AND Verified 03/17/24 22:31 [facility]) LEG EDEMA codeine AdvReac MENTAL Verified 03/17/24 22:31 STATUS CHANGE lisinopril AdvReac COUGH Verified 03/17/24 22:31 Family History Sister Heart disease Surgical History Hx of atrioventricular node ablation tailbone surgery History of cholecystectomy History of total hysterectomy Social History household members: none housing: group home Smoking Status: Former smoker how long ago did patient quit smoking: Approxiomately 2003 alcohol intake: never substance use type: does not use caffeine: No ROS ROS ED ROS Narrative Unable to obtain review of systems based on patient's depressed/altered mental status Review of Systems ROS Unobtainable: due to mental status EXAM Physical Exam Const Vital Signs: 03/17/24 22:22 03/17/24 22:33 03/17/24 23:26 Temperature 98.3 F Temperature Source Axillary Pulse Rate 60 60 Respiratory Rate 21 H 19 H Respiratory Effort Labored Respiratory Pattern Normal Blood Pressure 157/61 H Blood Pressure Mean 93 Pulse Ox 95 95 Oxygen Delivery Method Nasal Cannula Oxygen Flow Rate (L/min) 4 03/17/24 23:30 03/17/24 23:39 03/17/24 23:45 Temperature Temperature Source Pulse Rate 60 60 Respiratory Rate 20 H 19 H Respiratory Effort Respiratory Pattern Blood Pressure 177/152 H 151/66 H Blood Pressure Mean 162 86 Pulse Ox 92 95 Oxygen Delivery Method Room Air Oxygen Flow Rate (L/min) 03/18/24 00:00 03/18/24 00:15 03/18/24 00:30 Temperature Temperature Source Pulse Rate 60 60 60 Respiratory Rate 20 H 19 H 19 H Respiratory Effort Respiratory Pattern Blood Pressure 162/66 H 150/59 H Blood Pressure Mean 89 85 Pulse Ox 95 96 95 Oxygen Delivery Method Room Air Room Air Oxygen Flow Rate (L/min) 03/18/24 00:45 03/18/24 01:00 03/18/24 01:15 Temperature Temperature Source Pulse Rate 60 60 60 Respiratory Rate 20 H 23 H 20 H Respiratory Effort Respiratory Pattern Blood Pressure 144/66 H Blood Pressure Mean 85 Pulse Ox 96 95 94 Oxygen Delivery Method Nasal Cannula Oxygen Flow Rate (L/min) 2 03/18/24 01:30 03/18/24 01:45 03/18/24 02:00 Temperature Temperature Source Pulse Rate 60 60 60 Respiratory Rate 22 H 21 H 22 H Respiratory Effort Respiratory Pattern Blood Pressure 149/61 H Blood Pressure Mean 86 Pulse Ox 94 94 94 Oxygen Delivery Method Nasal Cannula Oxygen Flow Rate (L/min) 2 03/18/24 02:14 03/18/24 02:15 03/18/24 02:30 Temperature 99.2 F H Temperature Source Pulse Rate 60 68 60 Respiratory Rate 19 H 17 20 H Respiratory Effort Respiratory Pattern Blood Pressure 149/61 H Blood Pressure Mean 90 Pulse Ox 95 94 96 Oxygen Delivery Method Oxygen Flow Rate (L/min) 03/18/24 02:45 03/18/24 03:00 03/18/24 03:15 Temperature Temperature Source Pulse Rate 60 60 60 Respiratory Rate 17 24 H 21 H Respiratory Effort Respiratory Pattern Blood Pressure 140/57 H Blood Pressure Mean 80 Pulse Ox 96 97 97 Oxygen Delivery Method Nasal Cannula Oxygen Flow Rate (L/min) 4 03/18/24 03:30 03/18/24 03:45 03/18/24 04:00 Temperature Temperature Source Pulse Rate 60 60 61 Respiratory Rate 21 H 22 H 21 H Respiratory Effort Respiratory Pattern Blood Pressure 133/55 H Blood Pressure Mean 76 Pulse Ox 97 97 96 Oxygen Delivery Method Nasal Cannula Oxygen Flow Rate (L/min) 4 03/18/24 04:15 Temperature Temperature Source Pulse Rate 60 Respiratory Rate 22 H Respiratory Effort Respiratory Pattern Blood Pressure Blood Pressure Mean Pulse Ox 96 Oxygen Delivery Method Oxygen Flow Rate (L/min) Positive well nourished, well developed and obese General Appearance ED: well developed and pallor Nutritional Appearance: obese HEENT HEENT Narrative: Normocephalic atraumatic No tongue or lip swelling no oral lesions No signs of infection noted in the posterior pharynx Eyes Eyes Narrative: Pupils are midpoint and sluggish to respond to light Neck Neck Narrative: Trace bilateral JVD noted Chest Wall Chest Narrative: No bony deformity or crepitance with palpation of the chest wall Resp Resp Narrative: Patient is tachypneic and breath sounds are diminished throughout. There are crackles in the bilateral bases. Patient also has mild accessory muscle use. Cardio regular rate and regular rhythm Rate: other Other Details: Heart is regular rate and rhythm Radial and carotid pulses are equal and symmetric GI GI Narrative: Abdomen is obese soft and nondistended with hypoactive bowel sounds. No pulsatile mass. No rigidity. No fluid wave. Extremity Extremity Narrative: +2-3 pitting edema to the bilateral lower extremities that extends from the dorsum of the foot to just below the knee. Neuro Neuro Narrative: Patient is obtunded with GCS of 3 Skin no rashes or lesions noted Skin Narrative: Skin is pale in color with capillary refill at 3 seconds No obvious wounds or secondary findings to suggest infection General Skin Exam: pallor; Negative for jaundice MDM MDM MDM Narrative Medical decision making narrative: Patient arrived to the ER with stable vitals satting in the mid 90s on 4 L. This is only 2 L above her baseline oxygen need. Based on her altered mental status she cannot provide any further history. Her GCS is depressed at 3 which could be related to hypoxia or hypercarbia and this could be related to congestive heart failure exacerbation versus pneumonia versus acute blood loss anemia. The patient is a DNR DO NOT INTUBATE as well and based on her low GCS value she would require intubation for airway stabilization but as this goes against her wishes this cannot be performed. A basic workup was obtained to check for a potential cause of her altered mental status and it does show an elevated white count at 20.5 with left shift as her neutrophil count is elevated at 19. Chest x-ray shows congestive heart failure changes but cannot 100% rule out pneumonia. Her potassium is elevated at 6.7 but she does not have findings of acute kidney injury. A blood gas was obtained which does show hypercarbia with a pCO2 of 115 which is well above her baseline of 60-70. The hyperkalemia was treated with calcium gluconate sodium bicarbonate insulin and glucose. The family was informed that based on her altered mental status with a low GCS that she is not a candidate for BiPAP as it is a contraindication to place her on this as she is not able to protect her airway nor is she awake and alert. As the patient is a documented DNR DO NOT INTUBATE I cannot perform the intubation necessary to reverse her hypercarbia. Therefore at this time as the patient is a DO NOT RESUSCITATE and DO NOT INTUBATE I do not have means to render treatment that do not go against her wishes. She is in a nursing facility, she is in the care of hospice and therefore she will be discharged back into hospice care as they can facilitate comfort care and end-of-life care. History & Record Review Discussion w/independent historian: Family Lab Data Attestation: I reviewed the patient's lab results. Labs: Laboratory Results - last 24 hr 03/17/24 03/18/24 23:20 00:49 WBC 20.5 H RBC 4.55 Hgb 10.5 L Hct 41.5 MCV 91.2 MCH 23.1 L MCHC 25.3 L RDW Std Deviation 62.0 H RDW Coeff of Laura 18.5 H Plt Count 290 MPV 11.8 Immature Gran % (Auto) 0.800 Neut % (Auto) 92.4 H Lymph % (Auto) 1.8 L [place] % (Auto) 4.8 Eos % (Auto) 0.0 Baso % (Auto) 0.2 Absolute Neuts (auto) 19.0 H Absolute Lymphs (auto) 0.37 L Nucleated RBC % 0.3 Sodium 143 Potassium 6.7 H* Chloride 107 Carbon Dioxide 35.0 H Anion Gap 1 L BUN 44 H Creatinine 1.31 H Estim Creat Clear Calc 41.29 Est GFR (MDRD) Af Amer 50 L Est GFR (MDRD) Non-Af 42 L BUN/Creatinine Ratio 33.6 H Glucose 199 H Calcium 9.6 Total Bilirubin 0.90 Direct Bilirubin 0.30 AST 62 H ALT 67 H Alkaline Phosphatase 116 Ammonia 17.0 Total Protein 7.3 Albumin 3.4 Globulin 3.9 Procalcitonin 0.40 H TSH 1.030 POC Glucose 167 H ABG Data ABG results: ABG 03/17/24 23:42 Specimen Type AJ Sample Site Not entered O2 % 4.0 VBG pH 7.11 L* VBG pO2 63 H VBG HCO3 37 H VBG Total CO2 40 H VBG O2 Sat (Calc) 80 H VBG Base Excess 7 H POC Mix VBG pCO2 Pt Tmp 114.2 H* O2 Delivery Device Cannula Crit Call To/Read Back Yes Blood Gas Notified Whom Andwm Blood Gas Notified Time 23:43:37 Radiography Diagnostic Testing: Clinical Impression(s) from Imaging Studies Brain CT 03/17/24 23:30 IMPRESSION: 1. No acute intracranial abnormalities. 2. Age-related changes. Electronically Signed: Ti Palma MD at 23:48 EDT Reading Location ID and State: [facility] / [place] Tel , Service support , Chest X-Ray 03/17/24 23:30 IMPRESSION: Bibasilar airspace disease and small pleural effusions. Findings may indicate atelectasis or infection. Electronically Signed: Ti Palma MD at 23:56 EDT Reading Location ID and State: [facility] / [place] Tel , Service support , Chest x-ray as interpreted by the emergency medicine reveals bilateral pleural effusions without pneumothorax or pneumonia Discharge Plan Triage Chief Complaint: General Illness ED Provider: Kurt Pratt Dx/Rx/DC Orders Clinical Impression: COPD (chronic obstructive pulmonary disease), Chronic hypoxemic respiratory failure, Acute hyperkalemia, Hypercarbia Instructions: Hospice- Caring for Your Loved One, ED Heart Failure, Congestive (CHF), ED COPD Flare Prescriptions: No Action azithromycin 250 mg tablet 250 mg PO QMWF Qty: 36 0RF Rx Instructions: Mon, and monday acetazolamide 250 MG tablet 250 mg PO BID Lactobacillus acidophilus 1 EACH capsule 1 cap PO DAILY albuterol sulfate 2.5 MG/3 ML solution for nebulization 2.5 mg INHALATION Q2H PRN PRN (Reason: Shortness of Breath/Wheezing) 0RF docusate sodium 100 MG capsule 100 mg PO BID 0RF ondansetron HCl 4 mg Tablet 4 mg PO Q4H PRN (Reason: Nausea) PreserVision AREDS-2 250-90-40-1 mg Capsule 1 tab PO BID acetaminophen 500 mg Capsule 1,000 mg PO Q8H PRN (Reason: Pain) calcium carbonate 600 mg calcium (1,500 mg) Tablet 600 mg PO DAILY citalopram 20 mg tablet 20 mg PO DAILY cyanocobalamin (vitamin B-12) 500 mcg Tablet 500 mcg PO DAILY cholecalciferol (vitamin D3) [Vitamin D3] 50 mcg (2,000 unit) Tablet 50 mcg PO QHS gabapentin 300 mg capsule 300 mg PO QHS bisacodyl 10 mg suppository 10 mg UT DAILY PRN (Reason: constipation) Eliquis 5 mg tablet 5 mg PO BID pantoprazole 20 mg tablet,delayed release (DR/EC) 20 mg PO DAILY melatonin 3 mg tablet 3 mg PO QHS dextromethorphan-guaifenesin 10-100 mg/5 mL Syrup 10 ml PO Q6H PRN PRN (Reason: Cough) Qty: 0 0RF furosemide 40 mg Tablet 40 mg PO DAILY Qty: 0 0RF ipratropium-albuterol 0.5 mg-3 mg(2.5 mg base)/3 mL Solution For Nebulization 3 ml inhalation Q4H Qty: 0 0RF prednisone 20 mg tablet 20 mg PO BID Qty: 1 0RF Rx Instructions: one twice a day for 5 days, then reduce to 10 mg daily after that budesonide 1 mg/2 mL suspension for nebulization 1 mg inhalation 2XD Qty: 60 0RF lorazepam 0.5 mg Tablet 0.5 mg PO BID Qty: 4 0RF metoprolol succinate 25 mg tablet extended release 24 hr 25 mg PO DAILY Qty: 90 3RF potassium chloride 20 mEq tablet extended release 40 meq PO BID Primary Care Provider: oTr Lucia Referrals: Tor Lucia MD [Primary Care Provider] - Print Language: Sami Disposition Disposition: Home, Self Care Discharge Date/Time: 03/18/24 04:45
--- NOTE | 2024-03-18 00:44 | CPS ---
[2341] Critical VBG results given to Dr. Pratt. pH=7.11 & dWW5=806.2
[2024-03-18] MEDS: Dextrose 10%-Water 250 ML 999 ML IV (00:48)
[2024-03-18] MEDS: Sodium Bicarbonate 8.4% 50 ML Syringe 50 MEQ IV (01:04)
[2024-03-18] MEDS: Calcium Gluconate 1 GM/10 ML Vial IVP (01:04)
--- NOTE | 2024-03-18 02:15 | ED.RN ---
REPORT TO [place] NURSE, MIKA AT THIS TIME.
[2024-03-18 05:12] LABS: Bedside Glucose 167 mg/dL (74-106)
== END 2024-03-18 04:45 | disposition hospice, inpatient (51) ==
PROVIDERS: Emergency Provider Emergency Medicine; PCP Family Medicine; Visit Provider Emergency Medicine
DX: J96.11 Chronic respiratory failure with hypoxia (principal); J96.12 Chronic respiratory failure with hypercapnia; I11.0 Hypertensive heart disease with heart failure; I50.32 Chronic diastolic (congestive) heart failure; J44.9 Chronic obstructive pulmonary disease, unspecified; E78.5 Hyperlipidemia, unspecified; E87.5 Hyperkalemia; Z66 Do not resuscitate; Z79.01 Long term (current) use of anticoagulants; Z79.52 Long term (current) use of systemic steroids; Z79.899 Other long term (current) drug therapy; Z87.891 Personal history of nicotine dependence
CPT/HCPCS: 70450; 71045; 80048; 80076; 82140; 82803; 82962; 84145; 84443; 85025; 87631; 96374; 96375; 99283; A4216; J0612

== ENCOUNTER → 2024-03-17 22:21 | Outpatient (REF) | payer MEDICARE, MEDICAID, SELFPAY | LOC: ED 22:21 | PROVIDERS: PCP Family Medicine; Referring Provider Emergency Medicine; Visit Provider Emergency Medicine | DX: E87.5 Hyperkalemia (principal); J44.9 Chronic obstructive pulmonary disease, unspecified; J96.12 Chronic respiratory failure with hypercapnia; I27.20 Pulmonary hypertension, unspecified; E11.9 Type 2 diabetes mellitus without complications; D64.9 Anemia, unspecified; E78.5 Hyperlipidemia, unspecified; Z66 Do not resuscitate; I50.9 Heart failure, unspecified; I11.0 Hypertensive heart disease with heart failure; I48.91 Unspecified atrial fibrillation; G47.33 Obstructive sleep apnea (adult) (pediatric); M19.90 Unspecified osteoarthritis, unspecified site; Z99.81 Dependence on supplemental oxygen; Z79.01 Long term (current) use of anticoagulants; Z99.3 Dependence on wheelchair; Z86.718 Personal history of other venous thrombosis and embolism; Z86.711 Personal history of pulmonary embolism; Z95.0 Presence of cardiac pacemaker; Z87.891 Personal history of nicotine dependence; Z79.899 Other long term (current) drug therapy; Z79.52 Long term (current) use of systemic steroids | CPT/HCPCS: 70450; 71045; 80048; 80076; 82140; 82803; 82962; 84145; 84443; 85025; 87631; 99283; A4216 ==